=== PATIENT | female | born 1965 | race Two or more races ===

== ENCOUNTER 2020-06-16 15:02 | Outpatient (REF) | payer MEDICAID, SELFPAY ==
[2020-06-16 15:51] LABS: MANUAL DIFF FLAG NO
[2020-06-16 16:00] LABS: Basophils Percent Auto 0.3 % (0-2); Eosinophils Absolute Auto 0.1 X10*3/uL (0.0-0.4); Eosinophils Percent Auto 0.8 % (0-4); Hematocrit 35.5 % (37-47); Hemoglobin 11.1 g/dl (12.0-16.0); Imm Gran Abs Auto 0.07 X10*3/uL (0.00-0.03); Imm Gran Pct Auto 0.7 % (0.0-0.4); Lymphocytes Absolute Auto 2.9 X10*3/uL (1.2-4.9); Lymphocytes Percent Auto 29.7 % (20-40); Mean Corpuscular HGB Conc 31.3 g/dl (31.0-35.0); Mean Corpuscular Hemoglobin 29.7 pg (27.0-33.0); Mean Corpuscular Volume 94.9 fL (80-98); Mean Platelet Volume 11.3 fL (9.4-12.3); Monocytes Absolute Auto 0.8 X10*3/uL (0.1-1.2); Monocytes Percent Auto 7.9 % (2-11); Neut%MD 60.6 %; Neutrophils Absolute Auto 5.9 X10*3/uL (2.0-8.3); Neutrophils Percent Auto 60.6 % (45-73); Platelet Count 214 X10*3/uL (160-400); Red Blood Count 3.74 X10*6/uL (4.20-5.50); Red Cell Distribution Width 14.2 % (11.0-16.0); WBCANC 9.8 X10*3/uL; White Blood Count 9.8 X10*3/uL (4.8-10.8)
== END 2020-06-16 15:03 | disposition home or self-care (01) ==
LOC: HO.LAB 15:02
PROVIDERS: Visit Provider Clinical Nurse Specialist Psychiatric/Mental Health, Adult
DX: Z79.899 Other long term (current) drug therapy (principal)
CPT/HCPCS: 36415; 85025

== ENCOUNTER 2020-06-25 19:41 | Inpatient (IN) | payer MEDICAID, SELFPAY ==
[2020-06-25 20:10] VITALS: BP 147/85; PULSE 98; RESP 18; TEMP 37.3; O2SAT 94; BMI 32.9
[2020-06-25 20:22] VITALS: O2SAT 91
--- NOTE | 2020-06-25 20:59 | ECG_ITS ---
Test Reason : SOB Blood Pressure : / mmHG Vent. Rate : 097 BPM Atrial Rate : 097 BPM P-R Int : 134 ms QRS Dur : 078 ms QT Int : 356 ms P-R-T Axes : 054 028 009 degrees QTc Int : 452 ms Normal sinus rhythm Nonspecific T wave abnormality Borderline ECG No significant changes seen Referred By: Donnie Churchill Electronically Signed By:MANNY GOMES MD
--- NOTE | 2020-06-25 20:59 | XR_ITS ---
EXAMINATION: XR CHEST CLINICAL INFORMATION: Cough COMPARISON: 06/24/2018 TECHNIQUE: Frontal view of the chest was obtained. FINDINGS: The heart size is normal. There may be mild upper zone redistribution but no evidence of gross CHF. There is some patchy density seen in the retrocardiac region which was not present previously. Increased reticulo-nodule densities seen at the right lung base. No pleural effusions are seen XR/XR chest 1V IMPRESSION: Increased opacity in the retrocardiac region consistent with infiltrate/pneumonia
[2020-06-25 21:32] VITALS: BP 174/98; PULSE 105; RESP 18; O2SAT 98
[2020-06-25 21:58] LABS: MANUAL DIFF FLAG NO
[2020-06-25] MEDS: 0.9 % Sodium Chloride 1,000 ML 999 ML IVCONT (22:00)
--- NOTE | 2020-06-25 22:06 | ED_ITS ---
HPI - SOB/Dyspnea General Chief Complaint: Dyspnea Stated Complaint: sob Time Seen by Provider: 06/25/20 20:59 Source: patient Mode of arrival: ambulatory Limitations: no limitations History of Present Illness HPI Narrative: patient has history of asthma / COPD chronic smoker came here for last few days increased shortness of breath patient been using inhaler without any relief when she arrived saturating 91% at room air. Patient other family member were tested COVID -ve 2 weeks ago patient denies any fever co ughing up phlegm which is mucopurulent MD elicited complaint: shortness of breath and cough Pertinent past history: COPD and asthma Onset (ago): day(s) (3-4) Severity: moderate Exacerbating factors: coughing Known history of: COPD and asthma Associated symptoms: cough Treatment prior to arrival: bronchodilator Related Data Home oxygen amount: none Allergies Allergy/AdvReac Type Severity Reaction Status Date / Time aspirin [Aspirin] Allergy Unknown VOMIT Unverified 05/06/20 15:54 diazepam [From Valium] Allergy Unknown UNKNOWN Unverified 05/06/20 15:54 haloperidol [From Haldol] Allergy Unknown UNKN Unverified 05/06/20 15:54 penicillin V Allergy Unknown Verified 09/23/19 00:00 Penicillins Allergy Unknown UNKN Unverified 05/06/20 15:54 risperidone [From Risperdal] Allergy Unknown UNKNOWN Unverified 05/06/20 15:54 trazodone [TRAZODONE] Allergy Unknown NAUSEA & Unverified 05/06/20 15:54 VOMITING From Haldol Allergy Unknown UNKN Uncoded 05/06/20 15:54 hadol Allergy Unknown Uncoded 09/23/19 00:00 Review of Systems Review of Systems: REVIEW OF SYSTEMS: Pertinent positives and negatives are stated above in the history. GEN: no fevers, chills, fatigue HEENT: no nasal congestion, sore throat, ear pain NEURO: no headache, dizziness, focal weakness PULM: per HPI CV: no chest pain, palpitations, LE edema ABD: no abdominal pain, nausea, vomiting, diarrhea : no dysuria, urgency, frequency SKIN: no rash ROS otherwise negative x 10 PMFSH Past Medical History Medical History Asthma Schizophrenia Social History Social History Alcohol intake: never Smoking Status: Current every day smoker Use of substances other than those prescribed or required for medical reasons: No Advance Directives: No Advance Directives Information Provided: No Physical Exam Vital Signs: Vital Signs: Last Vital Signs Temp 98.7 F 06/25/20 23:52 Pulse 94 06/25/20 23:52 Resp 20 06/25/20 23:52 BP 153/63 H 06/25/20 23:52 Pulse Ox 95 06/25/20 23:52 Body Mass Index 32.9 VITAL SIGNS: Reviewed. GENERAL: Well developed, well nourished, in moderate respiratory distress wheezing HEAD: Normocephalic/atraumatic, EYES: PERRLA No pallor/icterus noted OROPHARYNX: Oral mucosa moist no oral lesions NECK: Supple, no adenopathy LUNGS: patient tachypneic wheezing bilaterally no rales auscultated using accessory respiratory muscles CARDIOVASCULAR: Regular rate and rhythm without noted murmurs, no JVD or lower extremity edema. ABDOMEN: Soft, non-tender, non-distended with normal bowel sounds. No rigidity. No guarding. No palpable masses or hernias noted MUSCULOSKELETAL: No tenderness, deformities, EXTREMITIES: No cyanosis or edema. SKIN: no rashes, ulcerations, jaundice, pallor, or petechiae NEUROLOGIC: Alert and oriented x 3. Strength and sensation to light touch were grossly intact normal speech Course Course Course Narrative: patient received continues nebulizing treatment and steroids chest x-ray showed left retrocardiac infiltrate patient is still not feeling good saturating 91-93 while resting in the bed COVID 19 is negative will admit patient for COPD and pneumonia MDM - SOB/Dyspnea Lab Data Result diagrams: 06/25/20 21:46 06/25/20 21:46 Labs: Lab Results 06/25/20 06/25/20 06/25/20 Range/Units 21:46 21:46 21:46 WBC 7.7 (4.8-10.8) X10*3/uL RBC 3.97 L (4.20-5.50) X10*6/uL Hgb 11.7 L (12.0-16.0) g/dl Hct 37.8 (37-47) % MCV 95.2 (80-98) fL MCH 29.5 (27.0-33.0) pg MCHC 31.0 (31.0-35.0) g/dl RDW 14.2 (11.0-16.0) % Plt Count 221 (160-400) X10*3/uL MPV 10.8 (9.4-12.3) fL Immature Gran % (Auto) 0.8 H (0.0-0.4) % Neut % (Auto) 62.7 (45-73) % Lymph % (Auto) 21.7 (20-40) % Power % (Auto) 13.9 H (2-11) % Eos % (Auto) 0.8 (0-4) % Baso % (Auto) 0.1 (0-2) % Lymph # (Auto) 1.7 (1.2-4.9) X10*3/uL Power # (Auto) 1.1 (0.1-1.2) X10*3/uL Eos # (Auto) 0.1 (0.0-0.4) X10*3/uL Baso # (Auto) 0.0 (0.0-0.2) X10*3/uL Abs Immat Gran (auto) 0.06 H (0.00-0.03) X10*3/uL Absolute Neuts (auto) 4.8 (2.0-8.3) X10*3/uL Absolute Nucleated RBC 0.000 (0.0-0.012) X10*3/uL Nucleated RBC % (auto) 0.0 (0.0-0.2) /100WBC PT 12.2 (10.8-13.0) SEC INR 1.0 (0.9-1.1) Sodium 142 (135-145) mmol/L Potassium 4.3 (3.3-5.1) mmol/l Chloride 102 (96-108) mmol/L Carbon Dioxide 34 H (22-29) mmol/L Anion Gap 10 L (12-20) BUN 11 (9-16) mg/dL Creatinine 0.68 (0.5-1.4) mg/dL Estim Creat Clear Calc 93.6 Estimated GFR > 60 Random Glucose 101 (60-115) mg/dL Lactic Acid (0.5-2.0) mmol/L Calcium 8.6 (8.4-10.2) mg/dL Total Bilirubin 0.2 (0.0-1.0) mg/dL Direct Bilirubin < 0.2 (0.0-0.5) mg/dL AST 23 (5-31) U/L ALT 26 (0-31) U/L Alkaline Phosphatase 83 (39-117) U/L Total Protein 7.0 (6.5-8.0) g/dL Albumin 4.1 (3.5-5.0) g/dL Urine Color Urine Appearance Urine pH (5.0-8.0) Ur Specific [place] (1.005-1.025) Urine Protein (NEG-TRACE) MG/DL Urine Glucose (UA) (NEG) MG/DL Urine Ketones (NEG) MG/DL Urine Blood (NEG) Urine Nitrite (NEG) Ur Leukocyte Esterase (NEG) Urine RBC (0) /HPF Urine WBC (0-4) /HPF Ur Squamous Epith Cells /LPF Urine Bacteria /LPF Coronavirus (PCR) (Negative) 06/25/20 06/25/20 06/25/20 Range/Units 21:46 21:46 21:47 WBC (4.8-10.8) X10*3/uL RBC (4.20-5.50) X10*6/uL Hgb (12.0-16.0) g/dl Hct (37-47) % MCV (80-98) fL MCH (27.0-33.0) pg MCHC (31.0-35.0) g/dl RDW (11.0-16.0) % Plt Count (160-400) X10*3/uL MPV (9.4-12.3) fL Immature Gran % (Auto) (0.0-0.4) % Neut % (Auto) (45-73) % Lymph % (Auto) (20-40) % Power % (Auto) (2-11) % Eos % (Auto) (0-4) % Baso % (Auto) (0-2) % Lymph # (Auto) (1.2-4.9) X10*3/uL Power # (Auto) (0.1-1.2) X10*3/uL Eos # (Auto) (0.0-0.4) X10*3/uL Baso # (Auto) (0.0-0.2) X10*3/uL Abs Immat Gran (auto) (0.00-0.03) X10*3/uL Absolute Neuts (auto) (2.0-8.3) X10*3/uL Absolute Nucleated RBC (0.0-0.012) X10*3/uL Nucleated RBC % (auto) (0.0-0.2) /100WBC PT (10.8-13.0) SEC INR (0.9-1.1) Sodium (135-145) mmol/L Potassium (3.3-5.1) mmol/l Chloride (96-108) mmol/L Carbon Dioxide (22-29) mmol/L Anion Gap (12-20) BUN (9-16) mg/dL Creatinine (0.5-1.4) mg/dL Estim Creat Clear Calc Estimated GFR Random Glucose (60-115) mg/dL Lactic Acid 1.0 (0.5-2.0) mmol/L Calcium (8.4-10.2) mg/dL Total Bilirubin (0.0-1.0) mg/dL Direct Bilirubin (0.0-0.5) mg/dL AST (5-31) U/L ALT (0-31) U/L Alkaline Phosphatase (39-117) U/L Total Protein (6.5-8.0) g/dL Albumin (3.5-5.0) g/dL Urine Color YELLOW Urine Appearance CLEAR Urine pH 6.5 (5.0-8.0) Ur Specific [place] 1.015 (1.005-1.025) Urine Protein NEG (NEG-TRACE) MG/DL Urine Glucose (UA) NEG (NEG) MG/DL Urine Ketones NEG (NEG) MG/DL Urine Blood 1+ H (NEG) Urine Nitrite NEG (NEG) Ur Leukocyte Esterase NEG (NEG) Urine RBC 5-9 H (0) /HPF Urine WBC 0-2 (0-4) /HPF Ur Squamous Epith Cells 1+ /LPF Urine Bacteria NONE /LPF Coronavirus (PCR) NEGATIVE (Negative) Imaging Data Chest x-ray: Radiologist's impression: XR/XR chest 1V IMPRESSION: Increased opacity in the retrocardiac region consistent with infiltrate/pneumonia
[2020-06-25 22:07] LABS: Glucose Urine UA NEG (NEG); Leukocyte Esterase Urine NEG (NEG); Nitrite Urine NEG (NEG); PH 6.5 (5.0-8.0); Specific Gravity - Urine 1.015 (1.005-1.025); Urine Blood 1+ (NEG); Urine Ketones NEG (NEG); Urine Protein NEG (NEG-TRACE)
[2020-06-25 22:09] LABS: Basophils Percent Auto 0.1 % (0-2); Eosinophils Absolute Auto 0.1 X10*3/uL (0.0-0.4); Eosinophils Percent Auto 0.8 % (0-4); Hematocrit 37.8 % (37-47); Hemoglobin 11.7 g/dl (12.0-16.0); Imm Gran Abs Auto 0.06 X10*3/uL (0.00-0.03); Imm Gran Pct Auto 0.8 % (0.0-0.4); Lymphocytes Absolute Auto 1.7 X10*3/uL (1.2-4.9); Lymphocytes Percent Auto 21.7 % (20-40); Mean Corpuscular Hemoglobin 29.5 pg (27.0-33.0); Mean Corpuscular Volume 95.2 fL (80-98); Mean Platelet Volume 10.8 fL (9.4-12.3); Monocytes Absolute Auto 1.1 X10*3/uL (0.1-1.2); Monocytes Percent Auto 13.9 % (2-11); Neutrophils Absolute Auto 4.8 X10*3/uL (2.0-8.3); Neutrophils Percent Auto 62.7 % (45-73); Platelet Count 221 X10*3/uL (160-400); Red Blood Count 3.97 X10*6/uL (4.20-5.50); Red Cell Distribution Width 14.2 % (11.0-16.0); White Blood Count 7.7 X10*3/uL (4.8-10.8)
[2020-06-25 22:12] LABS: Appearance Urine CLEAR; Color Urine YELLOW
[2020-06-25 22:18] LABS: Prothrombin Time 12.2 SEC (10.8-13.0)
[2020-06-25 22:27] LABS: Alanine Aminotransferase 26 U/L (0-31); Albumin Level 4.1 g/dL (3.5-5.0); Alkaline Phosphatase 83 U/L (39-117); Anion Gap 10 (12-20); Aspartate Amino Transferase 23 U/L (5-31); Blood Urea Nitrogen 11 mg/dL (9-16); Calcium 8.6 mg/dL (8.4-10.2); Carbon Dioxide 34 mmol/L (22-29); Chloride 102 mmol/L (96-108); Creatinine Clr Calc Pharmacy 93.6; Estimated Glomerular Filt Rate > 60; Glucose Random 101 mg/dL (60-115); Potassium 4.3 mmol/l (3.3-5.1); Sodium 142 mmol/L (135-145)
[2020-06-25 22:41] LABS: Bilirubin Direct < 0.2 mg/dL (0.0-0.5); Bilirubin Total 0.2 mg/dL (0.0-1.0)
[2020-06-25 22:51] VITALS: BP 148/70; PULSE 93; RESP 26; TEMP 37.1; O2SAT 100
[2020-06-25 22:54] LABS: Squamous Epithelial Cell Urine 1+ /LPF; WBC Urine 0-2 /HPF (0-4)
[2020-06-25] MEDS: Albuterol/Iprat 2.5/0.5MG 3 ML AMPUL.NEB INHALE (22:57)
[2020-06-25 22:58] LABS: SARS COV2 PCR INHOUSE NEGATIVE (Negative)
[2020-06-25] MEDS: Albuterol Sulfate (0.083%) 2.5 MG/3 ML VIAL.NEB 5 MG INHALE (22:58)
[2020-06-25] MEDS: cefTRIAXone sodium 1 GM in 0.9 % Sodium Chloride 50 ML IV (23:30)
[2020-06-25] MEDS: dexAMETHasone sod phosphate 4 MG/ML VIAL 10 MG IVPUSH (23:31)
--- NOTE | 2020-06-25 23:46 | PC.NURSE ---
pt has been up to br frequently with minimal sob. mother on phone with update mom states she feels it would be better to have patient stay overnight.
[2020-06-25 23:52] VITALS: BP 153/63; PULSE 94; RESP 20; TEMP 37.1; O2SAT 95
[2020-06-26] VITALS (13 sets, daily range): BP systolic 145–180; BP diastolic 71–91; PULSE 91–109; RESP 16–22; TEMP 36.2–37.3; O2SAT 91–97
[2020-06-26] MEDS: Azithromycin 500 MG in 0.9 % Sodium Chloride 250 ML 125 MG IV (00:58)
--- NOTE | 2020-06-26 02:35 | P.HPHOSP_ITS ---
History of Present Illness Date of Service: 06/26/20 Chief Complaint: SOB 54 y/o female with significant PMHX of asthma/COPD who presented from home due to SOB. Patient reports that for the past 2 days has been having worsening difficulty breathing which is worse on ambulation. Patient reports associated dry cough but no fever/chills, nausea, vomiting, diarrhea or constipation. Denies any sick contacts or recent travel. States that has been using her home inhaler without any symtomatic relief. In the ER patient was evaluated and found to be hypoxic 91% on room air and patient having trouble bleeding. Was given multiple doses of nebulizer treatment as well as steroid therapy without significant relief. CXR shows left retrocardiac infiltrates. Patient was given one dose of Rocephin and Zithromax and decision for admission was given. Covid test negative. Patient was seen and evaluated in the ED, laying down in bed in mild resp distress. ROS as above otherwise negative. Physical exam positive for distended abdomen but soft on palpation. obesity. rest of the exam unremarkable. PMHX: 1. Asthma. 2. Osteoarthritis. 3. Hypertension. 4. PTSD. 5. Schizophrenia. 6. GERD. 7. Impaired glucose tolerance test 8. Obesity PSx: none Toxic habits: Smoker in the past, no hx of alcohol abuse or IVDA Review of Systems Cardiovascular: Cardiovascular: Reports dyspnea Respiratory: Respiratory: Reports cough, Reports pain on inspiration and Reports dyspnea PMFSH Medical History (Updated 06/26/20 @ 03:34 by China Leiva MD) Asthma Schizophrenia Functional capacity: independent ambulation Social History Alcohol intake: never Smoking Status: Current every day smoker Use of substances other than those prescribed or required for medical reasons: No Advance Directives: No Advance Directives Information Provided: No Meds Allergies Allergy/AdvReac Type Severity Reaction Status Date / Time aspirin [Aspirin] Allergy Unknown VOMIT Unverified 05/06/20 15:54 diazepam [From Valium] Allergy Unknown UNKNOWN Unverified 05/06/20 15:54 haloperidol [From Haldol] Allergy Unknown UNKN Unverified 05/06/20 15:54 penicillin V Allergy Unknown Verified 09/23/19 00:00 Penicillins Allergy Unknown UNKN Unverified 05/06/20 15:54 risperidone [From Risperdal] Allergy Unknown UNKNOWN Unverified 05/06/20 15:54 trazodone [TRAZODONE] Allergy Unknown NAUSEA & Unverified 05/06/20 15:54 VOMITING From Haldol Allergy Unknown UNKN Uncoded 05/06/20 15:54 hadol Allergy Unknown Uncoded 09/23/19 00:00 Home Medications Medication Instructions Recorded Confirmed Type Depakote 06/26/20 History Klonopin 06/26/20 History Memory Pill 06/26/20 History atorvastatin 06/26/20 History tramadol 06/26/20 History trazodone 06/26/20 History Physical Exam Vital Signs and Narrative: Vital Signs: Last Vital Signs Temp 99.1 F 06/26/20 01:55 Pulse 104 H 06/26/20 01:55 Resp 16 06/26/20 01:55 BP 177/77 H 06/26/20 01:55 Pulse Ox 95 06/26/20 01:55 Body Mass Index 32.9 Const: General: cooperative, comfortable and other (mild distress ) Orientation/consciousness: patient oriented x3 HENMT: Head: Yes normal to inspection Eyes: General: appearance normal, both eyes and all related structures Neck: Yes normal visual inspection Chest: Chest palpation & inspection: normal inspection of the chest Resp: Effort & Inspection: labored and symmetric chest movement Cardio: Jugular venous distension: no JVD Rate: tachycardic Rhythm: regular rhythm Heart sounds: S1 normal heart sound present and S2 normal heart sound present GI: Inspection: Yes distended Skin: General skin exam: no rashes or lesions noted Neuro: General: patient oriented x3 Motor exam (neuro): 5/5 motor strength present throughout Extrem: General: Yes normal to inspection Psych: Appearance: grossly normal Affect: normal affect Results Labs CBC and Chem 7: 06/25/20 21:46 06/25/20 21:46 Labs: Laboratory Results - last 24 hr 06/25/20 06/25/20 06/25/20 21:46 21:46 21:46 MCV 95.2 MCH 29.5 MCHC 31.0 RDW 14.2 Plt Count 221 MPV 10.8 Immature Gran % (Auto) 0.8 H Neut % (Auto) 62.7 Lymph % (Auto) 21.7 [place] % (Auto) 13.9 H Eos % (Auto) 0.8 Baso % (Auto) 0.1 Lymph # (Auto) 1.7 [place] # (Auto) 1.1 Eos # (Auto) 0.1 Baso # (Auto) 0.0 Abs Immat Gran (auto) 0.06 H Absolute Neuts (auto) 4.8 Absolute Nucleated RBC 0.000 Nucleated RBC % (auto) 0.0 PT 12.2 INR 1.0 Anion Gap 10 L Estim Creat Clear Calc 93.6 Estimated GFR > 60 Random Glucose 101 Lactic Acid Calcium 8.6 Total Bilirubin 0.2 Direct Bilirubin < 0.2 AST 23 ALT 26 Alkaline Phosphatase 83 Total Protein 7.0 Albumin 4.1 Urine Color Urine Appearance Urine pH Ur Specific [place] Urine Protein Urine Glucose (UA) Urine Ketones Urine Blood Urine Nitrite Ur Leukocyte Esterase Urine RBC Urine WBC Ur Squamous Epith Cells Urine Bacteria Coronavirus (PCR) 06/25/20 06/25/20 06/25/20 21:46 21:46 21:47 MCV MCH MCHC RDW Plt Count MPV Immature Gran % (Auto) Neut % (Auto) Lymph % (Auto) [place] % (Auto) Eos % (Auto) Baso % (Auto) Lymph # (Auto) [place] # (Auto) Eos # (Auto) Baso # (Auto) Abs Immat Gran (auto) Absolute Neuts (auto) Absolute Nucleated RBC Nucleated RBC % (auto) PT INR Anion Gap Estim Creat Clear Calc Estimated GFR Random Glucose Lactic Acid 1.0 Calcium Total Bilirubin Direct Bilirubin AST ALT Alkaline Phosphatase Total Protein Albumin Urine Color YELLOW Urine Appearance CLEAR Urine pH 6.5 Ur Specific [place] 1.015 Urine Protein NEG Urine Glucose (UA) NEG Urine Ketones NEG Urine Blood 1+ H Urine Nitrite NEG Ur Leukocyte Esterase NEG Urine RBC 5-9 H Urine WBC 0-2 Ur Squamous Epith Cells 1+ Urine Bacteria NONE Coronavirus (PCR) NEGATIVE Imaging Radiologist's Impressions: Impressions Chest X-Ray 06/25/20 20:59 IMPRESSION: Increased opacity in the retrocardiac region consistent with infiltrate/pneumonia Assessment and Plan (1) Acute exacerbation of chronic obstructive airways disease: Status: Acute S/p multiple updraft, IV steroid and IV antbx in the ED Continue with updraft therapy continue with solumedrol as ordered continue with IV antbx as ordered follow up Bcx taper O2 requirements as tolerated Infectious disease consult in the am Medication reconciliation not done per ED as patient does not recall the doses. To be confirmed with pharmacy in the am. (2) Community acquired pneumonia: Qualifiers: Laterality: left Lung location: lower lobe of lung Qualified Code(s): J18.9 - Pneumonia, unspecified organism Status: Acute as above (3) Schizophrenia: Status: Acute (4) Hyperlipidemia: Status: Acute continue with statin home dose
[2020-06-26 03:35] LABS: Pt Ventilation O2% ROOM AIR; pH ABG 7.38 (7.35-7.45)
[2020-06-26 03:36] LABS: ABG PCO2 46 mmhg (32-45); Base Excess ABG 0.7; HCO3 ABG 26 mmol/l (22-26); Oxygen Saturation ABG 92.2 %; PO2 ABG 65 mmhg (83-108)
--- NOTE | 2020-06-26 05:45 | PC.NURSE ---
ATTTEMPED T O CALL REPORT. NO ANSWER
[2020-06-26 07:08] LABS: MANUAL DIFF FLAG NO
[2020-06-26 07:15] LABS: Basophils Percent Auto 0.2 % (0-2); Hematocrit 37.3 % (37-47); Hemoglobin 11.8 g/dl (12.0-16.0); Imm Gran Abs Auto 0.08 X10*3/uL (0.00-0.03); Imm Gran Pct Auto 0.9 % (0.0-0.4); Lymphocytes Absolute Auto 1.1 X10*3/uL (1.2-4.9); Lymphocytes Percent Auto 11.6 % (20-40); Mean Corpuscular HGB Conc 31.6 g/dl (31.0-35.0); Mean Corpuscular Hemoglobin 29.6 pg (27.0-33.0); Mean Corpuscular Volume 93.7 fL (80-98); Mean Platelet Volume 11.7 fL (9.4-12.3); Monocytes Absolute Auto 0.3 X10*3/uL (0.1-1.2); Monocytes Percent Auto 3.3 % (2-11); Neutrophils Absolute Auto 7.7 X10*3/uL (2.0-8.3); Platelet Count 252 X10*3/uL (160-400); Red Blood Count 3.98 X10*6/uL (4.20-5.50); Red Cell Distribution Width 14.2 % (11.0-16.0); White Blood Count 9.1 X10*3/uL (4.8-10.8)
[2020-06-26] MEDS: Heparin Sodium,Porcine 5,000 UNIT/ML VIAL 5000 UNIT SUBCUT ×3 (07:46→21:10)
[2020-06-26] MEDS: Doxycycline Hyclate 100 MG in 0.9 % Sodium Chloride 250 ML 166.67 MG IV (07:47)
[2020-06-26] MEDS: 0.9 % Sodium Chloride Flush 3 ML SYRINGE IVFLUSH ×2 (07:49→16:00)
[2020-06-26 08:08] LABS: Anion Gap 15 (12-20); Blood Urea Nitrogen 10 mg/dL (9-16); Calcium 8.5 mg/dL (8.4-10.2); Carbon Dioxide 26 mmol/L (22-29); Chloride 102 mmol/L (96-108); Creatinine Clr Calc Pharmacy 104.4; Estimated Glomerular Filt Rate > 60; Glucose Random 138 mg/dL (60-115); Potassium 4.4 mmol/l (3.3-5.1); Sodium 139 mmol/L (135-145)
--- NOTE | 2020-06-26 09:32 | P.PNIM_ITS ---
Subjective Subjective Date of Service: 06/26/20 Interval History: seen and examined reports sob and cough (appears clear from what she shows me) poor historian even with Japanese speaking [employer] bedside is able to tell me that she has a history of schizophrenia Review of Systems General - no fevers or chills Cardiovascular - no chest pain Respiratory - no shortness of breath or cough Abdominal- no abdominal pain, nausea, vomiting, diarrhea Physical Exam Vital Signs: Vital Signs: Last Vital Signs Temp 97.3 F 06/26/20 08:00 Pulse 96 06/26/20 08:00 Resp 19 06/26/20 08:00 BP 149/71 H 06/26/20 08:00 Pulse Ox 97 06/26/20 08:00 Body Mass Index 32.9 General - no acute distress, appears comfortable Cardiovascular - regular rate and rhythm, S1-S2 Lungs - rhonchi, no distress Abdomen - soft, nontender, no rebound regarding Extremities - no edema bilaterally Neuro - awake and alert, no focal deficits Objective Data Current Medications Generic Name Dose Route Start Last Admin Trade Name Maday PRN Reason Stop Dose Admin Acetaminophen 650 mg 06/26/20 08:39 Acetaminophen 325 Mg Tablet PO Q6H PRN Pain and Fever Albuterol/Ipratropium 3 ml 06/26/20 12:00 Albuterol/Iprat 2.5/0.5mg 3 Ml Ampul.Neb INHALE RQ4H WHILE AWAKE [facility] Heparin Sodium (Porcine) 5,000 unit 06/26/20 06:00 06/26/20 07:46 Heparin Sodium,Porcine 5,000 Unit/Ml Vial SUBCUT 5,000 unit Q8H [facility] Administration Doxycycline Hyclate 100 mg/ 250 mls @ 166.67 mls/hr 06/26/20 06:00 06/26/20 09:20 Sodium Chloride IV Infused Q12H LAXMI Infusion Methylprednisolone Sodium Succinate 40 mg 06/26/20 20:00 Methylprednisolone Sod Succ/Pf 40 Mg/Ml Vial IVPUSH Q12H [facility] Pharmacy Consult 1 each 06/26/20 08:38 Consult Rx Perform Med Rec MISCELLANE ONCE PRN Consult order Sodium Chloride 3 ml 06/26/20 08:00 06/26/20 07:49 0.9 % Sodium Chloride Flush 3 Ml Syringe IVFLUSH 3 ml QSHIFT [facility] Administration Labs CBC & Chem 7: 06/26/20 06:46 06/26/20 06:46 Assessment and Plan (1) Acute exacerbation of chronic obstructive airways disease: Status: Acute (2) Community acquired pneumonia: Status: Acute Assessment and Plan: This is a 54 yo F with a PMH of christian/? COPD, OA, HTN, PTSD, Schizophrenia, GERD who is an active smoker and presents to the hospital with respiratory complaints. Her ED work up consistant with COPD/Asthma, likely 2/2 to CAP. 1. COPD / Asthma excerabation likely secondary to CAP rocephin/doxy f/u cultures solumedrol bid scheduled updrafts use o2 if needed, goal 92 (no documented hypoxia as of yet) 2. Schizophrenia continue home meds once confirmed staff weapons officer to call patients pharmacy 3. Chronic pain tramamdol PRN 4. Anxiety klonipin once dose confirmed 5. Hyperglycemia check a1c (previously documented that she may have it??) Full Code DVT pptx, subcut. heparin
[2020-06-26 10:12] LABS: Estimated Average Glucose 120 mg/dL; Hemoglobin A1c % 5.8 %
[2020-06-26] MEDS: Flu Vacc QS2020-21(6mos up)/PF 0.5 ML SYRINGE IM (11:02)
[2020-06-26] MEDS: Albuterol/Iprat 2.5/0.5MG 3 ML AMPUL.NEB INHALE ×3 (11:03→20:36)
[2020-06-26] MEDS: Acetaminophen 325 MG TABLET 650 MG PO ×2 (11:10→17:30)
[2020-06-26] MEDS: clonazePAM 0.5 MG TABLET PO (14:34)
[2020-06-26] MEDS: cloZAPine 25 MG TABLET 50 MG PO (14:34)
--- NOTE | 2020-06-26 15:50 | MHC.CM.PN ---
CM met with pt with the assistance of a student life dean. Pt reports she lives with Lanny Soto and her . Mr and Mrs Soto are part of an adult foster program and Iris is pts primary career development associate. CM contacted Lanny Soto ([phone])who reports the pt has lived with her and her for 19 years. She reports the pt was part of a mental health program at [facility] where she would go daily to get her psych meds, however [facility] weekly to do pts med box. Iris reports she is not the pts guardian and pt is able to make her own decisions including medical ones. Pts current DC plan is to return to her caregivers home and resume [facility] community support Iris will provide transportation for pt at [place]
[2020-06-26] MEDS: Doxycycline Hyclate 100 MG in 0.9 % Sodium Chloride 250 ML 166 MG IV (17:40)
[2020-06-26] MEDS: lisinopriL 10 MG TABLET PO (21:10)
[2020-06-26] MEDS: traMADoL HCL 50 MG TABLET PO (21:10)
[2020-06-26] MEDS: clonazePAM 1 MG TABLET PO (21:11)
[2020-06-26] MEDS: Divalproex Sodium ER 500 MG TAB.ER.24H 1500 MG PO (21:11)
[2020-06-26] MEDS: Docusate Sodium 100 MG CAPSULE PO (21:11)
[2020-06-26] MEDS: cloZAPine 100 MG TABLET 300 MG PO (21:11)
[2020-06-26] MEDS: Montelukast Sodium 10 MG TABLET PO (21:11)
[2020-06-26] MEDS: cefTRIAXone sodium 1 GM in 0.9 % Sodium Chloride 50 ML IV (22:10)
[2020-06-27] VITALS (7 sets, daily range): BP systolic 129–150; BP diastolic 63–81; PULSE 77–99; RESP 16–20; TEMP 35.9–36.7; O2SAT 92–95
[2020-06-27] MEDS: 0.9 % Sodium Chloride Flush 3 ML SYRINGE IVFLUSH ×4 (00:14→22:03)
[2020-06-27] MEDS: Doxycycline Hyclate 100 MG in 0.9 % Sodium Chloride 250 ML 166 MG IV (06:35)
[2020-06-27] MEDS: Omeprazole 20 MG CAPSULE.DR PO (06:35)
[2020-06-27] MEDS: Heparin Sodium,Porcine 5,000 UNIT/ML VIAL 5000 UNIT SUBCUT ×3 (06:36→22:03)
[2020-06-27] MEDS: cloZAPine 25 MG TABLET 50 MG PO (08:20)
[2020-06-27] MEDS: clonazePAM 0.5 MG TABLET PO (08:20)
[2020-06-27] MEDS: Docusate Sodium 100 MG CAPSULE PO ×2 (08:20→20:51)
[2020-06-27] MEDS: FLUoxetine HCl 20 MG CAPSULE PO (08:20)
[2020-06-27] MEDS: Nicotine 21 MG PATCH.TD24 TRANSDERMA (08:20)
[2020-06-27] MEDS: Albuterol/Iprat 2.5/0.5MG 3 ML AMPUL.NEB INHALE ×2 (11:31→19:52)
--- NOTE | 2020-06-27 14:12 | HO.PM.IMPN ---
Subjective Subjective Interval History: seen and examined slight improvement in her sob Review of Systems General - no fevers or chills Cardiovascular - no chest pain Respiratory - +sob and cough -- improved Abdominal- no abdominal pain, nausea, vomiting, diarrhea Physical Exam Vital Signs: Vital Signs: Last Vital Signs Temp 98.0 F 06/27/20 12:00 Pulse 83 06/27/20 12:00 Resp 20 06/27/20 12:00 BP 129/68 06/27/20 12:00 Pulse Ox 95 06/27/20 12:00 Body Mass Index 32.9 General - no acute distress, appears comfortable Cardiovascular - regular rate and rhythm, S1-S2 Lungs - improving lung sounds Abdomen - soft, nontender, no rebound regarding Extremities - no edema bilaterally Neuro - awake and alert, no focal deficits Objective Data Current Medications Generic Name Dose Route Start Last Admin Trade Name Freq PRN Reason Stop Dose Admin Acetaminophen 650 mg 06/26/20 08:39 06/26/20 17:30 Acetaminophen 325 Mg Tablet PO 650 mg Q6H PRN Administration Pain and Fever Albuterol/Ipratropium 3 ml 06/26/20 12:00 06/27/20 11:31 Albuterol/Iprat 2.5/0.5mg 3 Ml Ampul.Neb INHALE 3 ml RQ4H WHILE AWAKE LAXMI Administration Clonazepam 0.5 mg 06/26/20 14:00 06/27/20 08:20 Clonazepam 0.5 Mg Tablet PO 0.5 mg DAILY LAXMI Administration Clonazepam 1 mg 06/26/20 21:00 06/26/20 21:11 Clonazepam 1 Mg Tablet PO 1 mg BEDTIME LAXMI Administration Clozapine 300 mg 06/26/20 21:00 06/26/20 21:11 Clozapine 100 Mg Tablet PO 300 mg BEDTIME LAXMI Administration Clozapine 50 mg 06/26/20 14:00 06/27/20 08:20 Clozapine 25 Mg Tablet PO 50 mg DAILY LAXMI Administration Divalproex Sodium 1,500 mg 06/26/20 21:00 06/26/20 21:11 Divalproex Sodium Er 500 Mg Tab.Er.24h PO 1,500 mg BEDTIME LAXMI Administration Docusate Sodium 100 mg 06/26/20 21:00 06/27/20 08:20 Docusate Sodium 100 Mg Capsule PO 100 mg BID LAXMI Administration Fluoxetine HCl 20 mg 06/27/20 09:00 06/27/20 08:20 Fluoxetine Hcl 20 Mg Capsule PO 20 mg DAILY LAXMI Administration Heparin Sodium (Porcine) 5,000 unit 06/26/20 06:00 06/27/20 13:50 Heparin Sodium,Porcine 5,000 Unit/Ml Vial SUBCUT 5,000 unit Q8H LAXMI Administration Doxycycline Hyclate 100 mg/ 250 mls @ 166.67 mls/hr 06/26/20 06:00 06/27/20 08:18 Sodium Chloride IV Infused Q12H LAXMI Infusion Ceftriaxone Sodium 1 gm/ 50 mls @ 100 mls/hr 06/26/20 22:00 06/26/20 22:59 Sodium Chloride IV Infused Q24H LAXMI Infusion Lactulose 10 gm 06/26/20 13:55 Lactulose 20 Gm/30 Ml Solution PO DAILY PRN Constipation Lisinopril 10 mg 06/26/20 21:00 06/26/20 21:10 Lisinopril 10 Mg Tablet PO 10 mg BEDTIME LAXMI Administration Protocol Methylprednisolone Sodium Succinate 40 mg 06/26/20 20:00 06/27/20 08:19 Methylprednisolone Sod Succ/Pf 40 Mg/Ml Vial IVPUSH 40 mg Q12H LAXMI Administration Montelukast Sodium 10 mg 06/26/20 21:00 06/26/20 21:11 Montelukast Sodium 10 Mg Tablet PO 10 mg BEDTIME LAXMI Administration Nicotine 21 mg 06/27/20 09:00 06/27/20 08:20 Nicotine 21 Mg Patch.Td24 TRANSDERMA 21 mg DAILY LAXMI Administration Omeprazole 20 mg 06/27/20 06:30 06/27/20 06:35 Omeprazole 20 Mg Capsule. PO 20 mg DAILY@0630 [facility] Administration Pharmacy Consult 1 each 06/26/20 08:38 Consult Rx Perform Med Rec MISCELLANE ONCE PRN Consult order Polyethylene Glycol 17 gm 06/26/20 13:55 Polyethylene Glycol 3350 17 Gm Powd.Pack PO DAILY PRN Constipation Sodium Chloride 3 ml 06/26/20 08:00 06/27/20 08:20 0.9 % Sodium Chloride Flush 3 Ml Syringe IVFLUSH 3 ml QSHIFT LAXMI Administration Tramadol HCl 50 mg 06/26/20 09:40 06/26/20 21:10 Tramadol Hcl 50 Mg Tablet PO 50 mg BID PRN Administration Pain, Severe (Pain Scale 7-10) Labs CBC & Chem 7: 06/26/20 06:46 06/26/20 06:46 Microbiology Microbiology Results: Microbiology 06/25/20 22:55 Blood - Venous Blood Culture - Preliminary No growth after 24 hours. 06/25/20 21:47 Blood - Venous Blood Culture - Preliminary No growth after 24 hours. Assessment and Plan (1) Acute exacerbation of chronic obstructive airways disease: Status: Acute (2) Community acquired pneumonia: Status: Acute Assessment and Plan: This is a 54 yo F with a PMH of christian/? COPD, OA, HTN, PTSD, Schizophrenia, GERD who is an active smoker and presents to the hospital with respiratory complaints. Her ED work up consistant with COPD/Asthma, likely 2/2 to CAP. 1. COPD / Asthma excerabation likely secondary to CAP rocephin/doxy, day #2 f/u cultures -negative to date solumedrol bid today, prednisone 40mg starting tomorrow x 5 days scheduled updrafts use o2 if needed, goal 92 (no documented hypoxia as of yet) 2. Schizophrenia continue psych meds 3. Chronic pain tramamdol PRN 4. Anxiety klonopin 5. Hyperglycemia a1c 5.8 likely 2/2 to steriods Full Code DVT pptx, subcut. heparin dispo: anticipate home tomorrow if stable
[2020-06-27] MEDS: Doxycycline Hyclate 100 MG in 0.9 % Sodium Chloride 250 ML 166.67 MG IV (18:13)
[2020-06-27] MEDS: Montelukast Sodium 10 MG TABLET PO (20:51)
[2020-06-27] MEDS: clonazePAM 1 MG TABLET PO (20:51)
[2020-06-27] MEDS: Divalproex Sodium ER 500 MG TAB.ER.24H 1500 MG PO (20:51)
[2020-06-27] MEDS: lisinopriL 10 MG TABLET PO (20:51)
[2020-06-27] MEDS: cloZAPine 100 MG TABLET 300 MG PO (20:52)
[2020-06-27] MEDS: traMADoL HCL 50 MG TABLET PO (20:56)
[2020-06-27] MEDS: cefTRIAXone sodium 1 GM in 0.9 % Sodium Chloride 50 ML IV (22:04)
[2020-06-28] VITALS: BP 138/66; PULSE 91; RESP 16; TEMP 36.4; O2SAT 97
[2020-06-28 03:52] VITALS: BP 148/82; PULSE 79; RESP 16; TEMP 36; O2SAT 94
[2020-06-28] MEDS: Acetaminophen 325 MG TABLET 650 MG PO (04:29)
[2020-06-28 04:33] VITALS: RESP 16
[2020-06-28] MEDS: Doxycycline Hyclate 100 MG in 0.9 % Sodium Chloride 250 ML 167.67 MG IV (06:02)
[2020-06-28] MEDS: Omeprazole 20 MG CAPSULE.DR PO (06:02)
[2020-06-28] MEDS: Heparin Sodium,Porcine 5,000 UNIT/ML VIAL 5000 UNIT SUBCUT (06:02)
[2020-06-28] MEDS: Albuterol/Iprat 2.5/0.5MG 3 ML AMPUL.NEB INHALE ×2 (07:10→11:12)
[2020-06-28 07:33] VITALS: BP 180/100; PULSE 92; RESP 18; TEMP 36.3; O2SAT 95
[2020-06-28] MEDS: 0.9 % Sodium Chloride Flush 3 ML SYRINGE IVFLUSH (08:16)
[2020-06-28] MEDS: clonazePAM 0.5 MG TABLET PO (08:16)
[2020-06-28] MEDS: cloZAPine 25 MG TABLET 50 MG PO (08:17)
[2020-06-28] MEDS: FLUoxetine HCl 20 MG CAPSULE PO (08:17)
[2020-06-28] MEDS: Docusate Sodium 100 MG CAPSULE PO (08:17)
[2020-06-28] MEDS: Nicotine 21 MG PATCH.TD24 TRANSDERMA (08:18)
[2020-06-28] MEDS: traMADoL HCL 50 MG TABLET PO (08:23)
--- NOTE | 2020-06-28 11:37 | MHC.CM.PN ---
PATIENT IS DISCHARGED HOME TODAY. FORGING MACHINE HAND, JOSE ENRIQUE ([phone]) AWARE OF PLAN. PCP IS ANDREZ MOODY MD OF [facility] JOSE ENRIQUE WILL WAIT FOR PATIENT IN FRONT LOBBY AT 14:00. RN AWARE OF PLAN.
[2020-06-28 11:50] VITALS: BP 149/87; PULSE 91; RESP 16; TEMP 36.5; O2SAT 94
--- NOTE | 2020-06-28 12:06 | P.DS_ITS ---
DS: Providers Provider Date of admission: 06/26/20 03:31 Primary care physician: Unknown Physician DS: Diagnosis Discharge Diagnosis (1) Acute exacerbation of chronic obstructive airways disease: Status: Acute (2) Community acquired pneumonia: Status: Acute DS: Summary Hospital Course Hospital Course: Patient was started on IV steriods and scheduled bronchodilators for COPD/Asthma exacerbation. Over the course of her hospitalization, her symptoms improved and her steroids were tapered. She will be discharged home on 5 more days of prednisone and it continue her inhalers / nebulizers as she routinely does. In regards to her CAP, she was treated with IV rocephin/doxy which will be changed to PO ceftin/doxy at the time of discharge. She has been strongly encouraged complete tobacco cessation. Time Spent with Patient Time attestation: Total time spent providing and/or coordinating discharge services: Physical Exam Vital Signs: Vital Signs: Last Vital Signs Temp 97.7 F 06/28/20 11:50 Pulse 91 06/28/20 11:50 Resp 16 06/28/20 11:50 BP 149/87 H 06/28/20 11:50 Pulse Ox 94 06/28/20 11:50 Body Mass Index 32.9 General - no acute distress, appears comfortable Cardiovascular - regular rate and rhythm, S1-S2 Lungs - normal respiratory effort, clear to auscultation bilaterally, no wheezing Abdomen - soft, nontender, no rebound regarding Extremities - no edema bilaterally Neuro - awake and alert, no focal deficits DS: Data Data Completed and Pending Labs on day of discharge: Laboratory Last Values WBC 9.1 X10*3/uL (4.8-10.8) 06/26/20 06:46 RBC 3.98 X10*6/uL (4.20-5.50) L 06/26/20 06:46 Hgb 11.8 g/dl (12.0-16.0) L 06/26/20 06:46 Hct 37.3 % (37-47) 06/26/20 06:46 MCV 93.7 fL (80-98) 06/26/20 06:46 MCH 29.6 pg (27.0-33.0) 06/26/20 06:46 MCHC 31.6 g/dl (31.0-35.0) 06/26/20 06:46 RDW 14.2 % (11.0-16.0) 06/26/20 06:46 Plt Count 252 X10*3/uL (160-400) 06/26/20 06:46 MPV 11.7 fL (9.4-12.3) 06/26/20 06:46 Immature Gran % (Auto) 0.9 % (0.0-0.4) H 06/26/20 06:46 Neut % (Auto) 84.0 % (45-73) H 06/26/20 06:46 Lymph % (Auto) 11.6 % (20-40) L 06/26/20 06:46 [place] % (Auto) 3.3 % (2-11) 06/26/20 06:46 Eos % (Auto) 0.0 % (0-4) 06/26/20 06:46 Baso % (Auto) 0.2 % (0-2) 06/26/20 06:46 Lymph # (Auto) 1.1 X10*3/uL (1.2-4.9) L 06/26/20 06:46 [place] # (Auto) 0.3 X10*3/uL (0.1-1.2) 06/26/20 06:46 Eos # (Auto) 0.0 X10*3/uL (0.0-0.4) 06/26/20 06:46 Baso # (Auto) 0.0 X10*3/uL (0.0-0.2) 06/26/20 06:46 Abs Immat Gran (auto) 0.08 X10*3/uL (0.00-0.03) H 06/26/20 06:46 Absolute Neuts (auto) 7.7 X10*3/uL (2.0-8.3) 06/26/20 06:46 Absolute Nucleated RBC 0.000 X10*3/uL (0.0-0.012) 06/26/20 06:46 Nucleated RBC % (auto) 0.0 /100WBC (0.0-0.2) 06/26/20 06:46 PT 12.2 SEC (10.8-13.0) 06/25/20 21:46 INR 1.0 (0.9-1.1) 06/25/20 21:46 ABG pH 7.38 (7.35-7.45) 06/26/20 03:01 ABG pCO2 46 mmhg (32-45) H 06/26/20 03:01 ABG pO2 65 mmhg (83-108) L 06/26/20 03:01 ABG HCO3 26 mmol/l (22-26) 06/26/20 03:01 ABG O2 Saturation 92.2 % 06/26/20 03:01 ABG Base Excess 0.7 06/26/20 03:01 Oxygen Given ROOM AIR 06/26/20 03:01 Sodium 139 mmol/L (135-145) 06/26/20 06:46 Potassium 4.4 mmol/l (3.3-5.1) 06/26/20 06:46 Chloride 102 mmol/L (96-108) 06/26/20 06:46 Carbon Dioxide 26 mmol/L (22-29) 06/26/20 06:46 Anion Gap 15 (12-20) 06/26/20 06:46 BUN 10 mg/dL (9-16) 06/26/20 06:46 Creatinine 0.61 mg/dL (0.5-1.4) 06/26/20 06:46 Estim Creat Clear Calc 104.4 06/26/20 06:46 Estimated GFR > 60 06/26/20 06:46 Random Glucose 138 mg/dL (60-115) H D 06/26/20 06:46 Estimat Average Glucose 120 mg/dL 06/26/20 06:46 Hemoglobin A1c % 5.8 % 06/26/20 06:46 Lactic Acid 1.0 mmol/L (0.5-2.0) 06/25/20 21:47 Calcium 8.5 mg/dL (8.4-10.2) 06/26/20 06:46 Total Bilirubin 0.2 mg/dL (0.0-1.0) 06/25/20 21:46 Direct Bilirubin < 0.2 mg/dL (0.0-0.5) 06/25/20 21:46 AST 23 U/L (5-31) 06/25/20 21:46 ALT 26 U/L (0-31) 06/25/20 21:46 Alkaline Phosphatase 83 U/L (39-117) 06/25/20 21:46 Total Protein 7.0 g/dL (6.5-8.0) 06/25/20 21:46 Albumin 4.1 g/dL (3.5-5.0) 06/25/20 21:46 Urine Color YELLOW 06/25/20 21:46 Urine Appearance CLEAR 06/25/20 21:46 Urine pH 6.5 (5.0-8.0) 06/25/20 21:46 Ur Specific [place] 1.015 (1.005-1.025) 06/25/20 21:46 Urine Protein NEG MG/DL (NEG-TRACE) 06/25/20 21:46 Urine Glucose (UA) NEG MG/DL (NEG) 06/25/20 21:46 Urine Ketones NEG MG/DL (NEG) 06/25/20 21:46 Urine Blood 1+ (NEG) H 06/25/20 21:46 Urine Nitrite NEG (NEG) 06/25/20 21:46 Ur Leukocyte Esterase NEG (NEG) 06/25/20 21:46 Urine RBC 5-9 /HPF (0) H 06/25/20 21:46 Urine WBC 0-2 /HPF (0-4) 06/25/20 21:46 Ur Squamous Epith Cells 1+ /LPF 06/25/20 21:46 Urine Bacteria NONE /LPF 06/25/20 21:46 Coronavirus (PCR) NEGATIVE (Negative) 06/25/20 21:46 Preliminary micro results at discharge 06/25/20 22:55 Blood Culture - Preliminary Blood - Venous No growth after 48 hours. 06/25/20 21:47 Blood Culture - Preliminary Blood - Venous No growth after 48 hours. Discharge Plan Discharge Patient Disposition: Home Health Service Referrals: Physician,Unknown [Primary Care Provider] - Discharge Medications: New cefuroxime axetil 500 mg tablet 500 mg PO Q12H Qty: 10 RF: 0 doxycycline hyclate 100 mg tablet 100 mg PO BID Qty: 10 RF: 0 prednisone 20 mg tablet 40 mg PO DAILY Qty: 10 RF: 0 Continued polyethylene glycol 3350 17 gram Powder In Packet 17 g PO DAILY PRN (Reason: Constipation) RF: 0 clozapine 100 mg Tablet 300 mg PO BEDTIME RF: 0 montelukast 10 mg Tablet 10 mg PO BEDTIME RF: 0 clozapine 25 mg Tablet 50 mg PO DAILY RF: 0 omeprazole 20 mg Tablet,Delayed Release (Dr/Ec) 20 mg PO DAILY@0630 RF: 0 albuterol sulfate 2.5 mg /3 mL (0.083 %) Solution For Nebulization 2.5 mg INHALATION TID RF: 0 albuterol sulfate [ProAir HFA] 90 mcg/actuation Hfa Aerosol Inhaler 2 puff INHALATION Q4-6H PRN (Reason: Shortness Of Breath) RF: 0 fluconazole 150 mg Tablet 150 mg PO Q7D RF: 0 clonazepam 0.5 mg Tablet 0.5 mg PO DAILY RF: 0 clonazepam 1 mg Tablet 1 mg PO BEDTIME RF: 0 lisinopril 10 mg Tablet 10 mg PO BEDTIME RF: 0 docusate sodium 100 mg Capsule 100 mg PO BID RF: 0 fluoxetine 20 mg Capsule 20 mg PO DAILY RF: 0 Flovent HFA 110 mcg/actuation Hfa Aerosol Inhaler 2 puff INHALATION BID RF: 0 bisacodyl 5 mg Tablet 5 mg PO BEDTIME RF: 0 lactulose [Generlac] 10 gram/15 mL Solution 10 g PO DAILY PRN (Reason: Constipation) RF: 0 divalproex 500 mg Tablet Extended Release 24 Hr 1,500 mg PO BEDTIME RF: 0 nicotine 21 mg/24 hr Patch 24 Hour 1 patch TRANSDERMAL DAILY RF: 0 Discharge Orders: Discharge Order (Routine); Ordered 06/28/20 Ordered By: Raza Leyva Diet: advance to your usual diet Activity on Discharge: As tolerated Visit Report Forms: Patient Portal Discharge page Care Plan Goals: To stay healthy and out of the hospital. Health Concerns: Asthma/COPD Pneumonia Tobacco Use Plan of Treatment: Asthma/COPD - prednisone for 5 days and inhalers Pneumonia - antibiotics for 5 days Tobacco Use - use patch, dont smoke
== END 2020-06-28 14:19 | disposition home health service (06) | DRG 139 ==
LOC: HO.ED 06-26 01:40 → HO.S3 06-26 03:44
PROVIDERS: Admitting Provider Internal Medicine; Emergency Provider Internal Medicine; Visit Provider Family Medicine
DX: J18.9 Pneumonia, unspecified organism (principal); F20.9 Schizophrenia, unspecified; J44.0 Chronic obstructive pulmonary disease with (acute) lower respiratory infection; J44.1 Chronic obstructive pulmonary disease with (acute) exacerbation; J45.901 Unspecified asthma with (acute) exacerbation; K21.9 Gastro-esophageal reflux disease without esophagitis; F17.210 Nicotine dependence, cigarettes, uncomplicated; E66.9 Obesity, unspecified; Z68.32 Body mass index [BMI] 32.0-32.9, adult; E78.5 Hyperlipidemia, unspecified; G89.29 Other chronic pain; Z71.6 Tobacco abuse counseling; Z20.828 Contact with and (suspected) exposure to other viral communicable diseases; Z23 Encounter for immunization; Z88.0 Allergy status to penicillin; Z88.6 Allergy status to analgesic agent; Z79.51 Long term (current) use of inhaled steroids; Z79.899 Other long term (current) drug therapy
CPT/HCPCS: 36415; 71045; 80048; 80076; 81001; 81003; 82803; 83036; 83605; 85025; 85610; 87040; 90686; 93005; 94640; 94644; 96361; 96365; 96367; 96375; 99285; J0456; J0696; J1100; J2920; U0003

== ENCOUNTER 2020-07-02 11:30 | Emergency (ER) | payer MEDICAID, SELFPAY ==
[2020-07-02 11:55] VITALS: BP 146/79; PULSE 100; RESP 19; TEMP 37.1; O2SAT 94; BMI 33.8
--- NOTE | 2020-07-02 12:07 | ED.URI ---
HPI - URI/Sore Throat General Chief Complaint: Weakness Stated Complaint: TIRED LUNG PAIN Time Seen by Provider: 07/02/20 12:06 Source: patient Mode of arrival: ambulatory Limitations: no limitations History of Present Illness HPI Narrative: just seen for CAP and COPD 06/26-06/28 sent out on prednisone and ceftin/doxy, negative COVID swab MD elicited complaint: cough and nasal congestion Pertinent past history: COPD and asthma Onset (ago): day(s) (06/26) Consistency: constant Severity: moderate Able to tolerate fluids by mouth: Yes Exacerbating factors: exertion Relieving factors: nothing Context: recent hospitalization Associated symptoms: fever, chills, myalgias, nasal congestion, cough and shortness of breath Treatments prior to arrival: other (states she is taking steroids and antibiotics as prescribed took all medications today) Related Data Home Medications Medication Instructions Recorded Confirmed Flovent HFA 2 puff INHALATION BID 06/26/20 06/26/20 albuterol sulfate 2.5 mg INHALATION TID 06/26/20 06/26/20 albuterol sulfate [ProAir HFA] 2 puff INHALATION Q4-6H PRN 06/26/20 06/26/20 bisacodyl 5 mg PO BEDTIME 06/26/20 06/26/20 clonazepam 0.5 mg PO DAILY 06/26/20 06/26/20 clonazepam 1 mg PO BEDTIME 06/26/20 06/26/20 clozapine 50 mg PO DAILY 06/26/20 06/26/20 clozapine 300 mg PO BEDTIME 06/26/20 06/26/20 divalproex 1,500 mg PO BEDTIME 06/26/20 06/26/20 docusate sodium 100 mg PO BID 06/26/20 06/26/20 fluconazole 150 mg PO Q7D 06/26/20 06/26/20 fluoxetine 20 mg PO DAILY 06/26/20 06/26/20 lactulose [Generlac] 10 g PO DAILY PRN 06/26/20 06/26/20 lisinopril 10 mg PO BEDTIME 06/26/20 06/26/20 montelukast 10 mg PO BEDTIME 06/26/20 06/26/20 nicotine 1 patch TRANSDERMAL DAILY 06/26/20 06/26/20 omeprazole 20 mg PO DAILY@0630 06/26/20 06/26/20 polyethylene glycol 3350 17 g PO DAILY PRN 06/26/20 06/26/20 Previous Rx's Medication Instructions Recorded cefuroxime axetil 500 mg PO Q12H #10 tab 06/28/20 doxycycline hyclate 100 mg PO BID #10 tab 06/28/20 prednisone 40 mg PO DAILY #10 tab 06/28/20 Allergies Allergy/AdvReac Type Severity Reaction Status Date / Time aspirin [Aspirin] Allergy Unknown VOMIT Verified 06/26/20 12:56 diazepam [From Valium] Allergy Unknown UNKNOWN Verified 06/26/20 12:56 haloperidol [From Haldol] Allergy Unknown UNKN Verified 06/26/20 12:56 penicillin V Allergy Unknown Unknown Verified 06/26/20 12:56 Penicillins Allergy Unknown UNKN Verified 06/26/20 12:56 risperidone [From Risperdal] Allergy Unknown UNKNOWN Verified 06/26/20 12:56 trazodone [TRAZODONE] Allergy Unknown NAUSEA & Verified 06/26/20 12:56 VOMITING From Haldol Allergy Unknown UNKN Uncoded 05/06/20 15:54 hadol Allergy Unknown Unknown Uncoded 06/26/20 12:56 Review of Systems Review of Systems: Constitutional : No Fever, pos Chills ENT/Mouth : No sore throat, No Rhinorrhea, No Swallowing Difficulty Eyes: No Eye Pain, No Swelling, No Redness Cardiovascular : pos Chest Pain, positive SOB, No Orthopnea, no Edema Respiratory : pos Cough, pos Sputum, pos Wheezing, positive dyspnea Gastrointestinal : pos Nausea, No Vomiting, No Diarrhea, No abdominal Pain, No Hematochezia, No Melena Genitourinary : No Dysuria, No Urinary Frequency, No Hematuria Musculoskeletal : No joint pain, No Myalgias Skin : No Skin Lesions, No rash Neuro : No Weakness, No Numbness, No Dizziness, No Headache Psych : No Anxiety/Panic, No Depression Heme/Lymph: No Bruising, No Lymphadenopathy Endocrine : No Polyuria, No Polydipsia All other systems reviewed and are negative [facility] Past Medical History Attestation statement: The following information was validated with the patient. Medical History Asthma Schizophrenia 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 Housing: House Alcohol intake: never Smoking Status: Former smoker Tobacco Type: Cigarette Use of substances other than those prescribed or required for medical reasons: No Any prior treatment program specific to substance use: No Advance Directives: No Advance Directives Information Provided: Yes service: No Current occupational status: disabled Physical Exam Vital Signs: Vital Signs: Last Vital Signs Temp 98.8 F 07/02/20 13:58 Pulse 99 07/02/20 13:58 Resp 18 07/02/20 13:58 BP 121/63 07/02/20 13:58 Pulse Ox 94 07/02/20 11:55 Body Mass Index 33.8 Appearance: Alert. Oriented X3. No acute distress. Eyes: Pupils equal, round and reactive to light. ENT: Pharynx normal. Neck: Normal inspection. Neck supple. CVS: Normal heart rate and rhythm. Pulses normal. Respiratory: No respiratory distress. Breath sounds decreased, end exp wheezes noted faint no tachypnea or retractions Abdomen: Soft and nontender. Skin: Skin warm and dry. Normal skin color. Normal skin turgor. Extremities: No lower extremity edema. No calf ttp Neuro: Oriented X 3. No motor deficit. No sensory deficit. Course Course Course Narrative: lactic acidosis due to albuterol and not infection or severe sepsis, CT chest negative COVID negative, has steroids and antibiotics at home, walking without issue, CT chest negative, lactic acidosis due to albuterol repeat pending 96% on RA lactic acid cleared, no distress, watching TV can be DC home MDM - URI/Sore Throat MDM Narrative Medical decision making narrative: 54 yo female with recent admit and DC for CAP on 06/28, asthma/COPD here with weakness, cough, body aches, feels she is not getting better with PO antibiotics at home, at this time will obtain labs, CT scan for pneumonia/COVID, repeat COVID test, 5mg albuterol neb Lab Data Result diagrams: 07/02/20 13:06 07/02/20 13:06 Labs: Lab Results 07/02/20 07/02/20 07/02/20 Range/Units 13:05 13:05 13:05 WBC (4.8-10.8) X10*3/uL RBC (4.20-5.50) X10*6/uL Hgb (12.0-16.0) g/dl Hct (37-47) % MCV (80-98) fL MCH (27.0-33.0) pg MCHC (31.0-35.0) g/dl RDW (11.0-16.0) % Plt Count (160-400) X10*3/uL MPV (9.4-12.3) fL Immature Gran % (Auto) (0.0-0.4) % Neut % (Auto) (45-73) % Lymph % (Auto) (20-40) % [place] % (Auto) (2-11) % Eos % (Auto) (0-4) % Baso % (Auto) (0-2) % Lymph # (Auto) (1.2-4.9) X10*3/uL [place] # (Auto) (0.1-1.2) X10*3/uL Eos # (Auto) (0.0-0.4) X10*3/uL Baso # (Auto) (0.0-0.2) X10*3/uL Abs Immat Gran (auto) (0.00-0.03) X10*3/uL Absolute Neuts (auto) (2.0-8.3) X10*3/uL Absolute Nucleated RBC (0.0-0.012) X10*3/uL Nucleated RBC % (auto) (0.0-0.2) /100WBC Hold Blue Top SEE NOTE Sodium (135-145) mmol/L Potassium (3.3-5.1) mmol/l Chloride (96-108) mmol/L Carbon Dioxide (22-29) mmol/L Anion Gap (12-20) BUN (9-16) mg/dL Creatinine (0.5-1.4) mg/dL Estim Creat Clear Calc Estimated GFR Random Glucose (60-115) mg/dL Lactic Acid 2.7 H* (0.5-2.0) mmol/L Lactic Acid Fup @ 2Hr Calcium (8.4-10.2) mg/dL Magnesium (1.6-2.6) mg/dL Ferritin (10-250) ng/mL Total Bilirubin (0.0-1.0) mg/dL Direct Bilirubin (0.0-0.5) mg/dL AST (5-31) U/L ALT (0-31) U/L Alkaline Phosphatase (39-117) U/L Lactate Dehydrogenase (122-220) U/L Troponin I High Sens < 3.5 (<3.5-17.0) ng/L Total Protein (6.5-8.0) g/dL Albumin (3.5-5.0) g/dL Lipase (8-78) U/L Coronavirus (PCR) (Negative) Influenza Type A (PCR) (Negative) Influenza Type B (PCR) (Negative) RSV RNA Qual (PCR) (Negative) 07/02/20 07/02/20 07/02/20 Range/Units 13:06 13:06 13:06 WBC 11.5 H (4.8-10.8) X10*3/uL RBC 3.95 L (4.20-5.50) X10*6/uL Hgb 11.6 L (12.0-16.0) g/dl Hct 37.5 (37-47) % MCV 94.9 (80-98) fL MCH 29.4 (27.0-33.0) pg MCHC 30.9 L (31.0-35.0) g/dl RDW 13.9 (11.0-16.0) % Plt Count 217 (160-400) X10*3/uL MPV 11.8 (9.4-12.3) fL Immature Gran % (Auto) 0.7 H (0.0-0.4) % Neut % (Auto) 80.4 H (45-73) % Lymph % (Auto) 14.5 L (20-40) % [place] % (Auto) 4.1 (2-11) % Eos % (Auto) 0.1 (0-4) % Baso % (Auto) 0.2 (0-2) % Lymph # (Auto) 1.7 (1.2-4.9) X10*3/uL [place] # (Auto) 0.5 (0.1-1.2) X10*3/uL Eos # (Auto) 0.0 (0.0-0.4) X10*3/uL Baso # (Auto) 0.0 (0.0-0.2) X10*3/uL Abs Immat Gran (auto) 0.08 H (0.00-0.03) X10*3/uL Absolute Neuts (auto) 9.3 H (2.0-8.3) X10*3/uL Absolute Nucleated RBC 0.000 (0.0-0.012) X10*3/uL Nucleated RBC % (auto) 0.0 (0.0-0.2) /100WBC Hold Blue Top Sodium 139 (135-145) mmol/L Potassium 4.2 (3.3-5.1) mmol/l Chloride 101 (96-108) mmol/L Carbon Dioxide 28 (22-29) mmol/L Anion Gap 14 (12-20) BUN 15 (9-16) mg/dL Creatinine 0.57 (0.5-1.4) mg/dL Estim Creat Clear Calc 113.3 Estimated GFR > 60 Random Glucose 128 H (60-115) mg/dL Lactic Acid (0.5-2.0) mmol/L Lactic Acid Fup @ 2Hr Calcium 8.9 (8.4-10.2) mg/dL Magnesium 1.8 (1.6-2.6) mg/dL Ferritin 13 (10-250) ng/mL Total Bilirubin 0.3 (0.0-1.0) mg/dL Direct Bilirubin < 0.2 (0.0-0.5) mg/dL AST 15 (5-31) U/L ALT 21 (0-31) U/L Alkaline Phosphatase 68 (39-117) U/L Lactate Dehydrogenase 211 (122-220) U/L Troponin I High Sens (<3.5-17.0) ng/L Total Protein 6.6 (6.5-8.0) g/dL Albumin 3.9 (3.5-5.0) g/dL Lipase 10 (8-78) U/L Coronavirus (PCR) NEGATIVE (Negative) Influenza Type A (PCR) NEGATIVE (Negative) Influenza Type B (PCR) NEGATIVE (Negative) RSV RNA Qual (PCR) NEGATIVE (Negative) 07/02/20 07/02/20 Range/Units 15:35 15:48 WBC (4.8-10.8) X10*3/uL RBC (4.20-5.50) X10*6/uL Hgb (12.0-16.0) g/dl Hct (37-47) % MCV (80-98) fL MCH (27.0-33.0) pg MCHC (31.0-35.0) g/dl RDW (11.0-16.0) % Plt Count (160-400) X10*3/uL MPV (9.4-12.3) fL Immature Gran % (Auto) (0.0-0.4) % Neut % (Auto) (45-73) % Lymph % (Auto) (20-40) % [place] % (Auto) (2-11) % Eos % (Auto) (0-4) % Baso % (Auto) (0-2) % Lymph # (Auto) (1.2-4.9) X10*3/uL [place] # (Auto) (0.1-1.2) X10*3/uL Eos # (Auto) (0.0-0.4) X10*3/uL Baso # (Auto) (0.0-0.2) X10*3/uL Abs Immat Gran (auto) (0.00-0.03) X10*3/uL Absolute Neuts (auto) (2.0-8.3) X10*3/uL Absolute Nucleated RBC (0.0-0.012) X10*3/uL Nucleated RBC % (auto) (0.0-0.2) /100WBC Hold Blue Top Sodium (135-145) mmol/L Potassium (3.3-5.1) mmol/l Chloride (96-108) mmol/L Carbon Dioxide (22-29) mmol/L Anion Gap (12-20) BUN (9-16) mg/dL Creatinine (0.5-1.4) mg/dL Estim Creat Clear Calc Estimated GFR Random Glucose (60-115) mg/dL Lactic Acid 1.5 (0.5-2.0) mmol/L Lactic Acid Fup @ 2Hr Cancelled Calcium (8.4-10.2) mg/dL Magnesium (1.6-2.6) mg/dL Ferritin (10-250) ng/mL Total Bilirubin (0.0-1.0) mg/dL Direct Bilirubin (0.0-0.5) mg/dL AST (5-31) U/L ALT (0-31) U/L Alkaline Phosphatase (39-117) U/L Lactate Dehydrogenase (122-220) U/L Troponin I High Sens (<3.5-17.0) ng/L Total Protein (6.5-8.0) g/dL Albumin (3.5-5.0) g/dL Lipase (8-78) U/L Coronavirus (PCR) (Negative) Influenza Type A (PCR) (Negative) Influenza Type B (PCR) (Negative) RSV RNA Qual (PCR) (Negative) ECG Data Attestation: I personally reviewed and interpreted this ECG as follows: ECG interpretation date: 07/02/20 ECG interpretation time: 14:18 Interpretation: Rate: 98 Rhythm: NSR [place]: normal Normal P waves. Normal DANIAL. Normal QRS complex. ST T wave : non specific qTC: normal prior studies: no acute ischemia The study has been interpreted contemporaneously by me. . Discharge Plan Discharge Clinical Impression: Acute exacerbation of chronic obstructive airways disease Patient Disposition: Home, Self-Care Instructions: COPD (Chronic Obstructive Pulmonary Disease) (ED) Additional Instructions: return to ED for any worsening symptoms or concerns CONTINUE ALL OF YOUR MEDICATIONS Prescriptions: No Action polyethylene glycol 3350 17 gram Powder In Packet 17 g PO DAILY PRN (Reason: Constipation) RF: 0 clozapine 100 mg Tablet 300 mg PO BEDTIME RF: 0 montelukast 10 mg Tablet 10 mg PO BEDTIME RF: 0 clozapine 25 mg Tablet 50 mg PO DAILY RF: 0 omeprazole 20 mg Tablet,Delayed Release (Dr/Ec) 20 mg PO DAILY@0630 RF: 0 albuterol sulfate 2.5 mg /3 mL (0.083 %) Solution For Nebulization 2.5 mg INHALATION TID RF: 0 albuterol sulfate [ProAir HFA] 90 mcg/actuation Hfa Aerosol Inhaler 2 puff INHALATION Q4-6H PRN (Reason: Shortness Of Breath) RF: 0 fluconazole 150 mg Tablet 150 mg PO Q7D RF: 0 clonazepam 0.5 mg Tablet 0.5 mg PO DAILY RF: 0 clonazepam 1 mg Tablet 1 mg PO BEDTIME RF: 0 lisinopril 10 mg Tablet 10 mg PO BEDTIME RF: 0 docusate sodium 100 mg Capsule 100 mg PO BID RF: 0 fluoxetine 20 mg Capsule 20 mg PO DAILY RF: 0 Flovent HFA 110 mcg/actuation Hfa Aerosol Inhaler 2 puff INHALATION BID RF: 0 bisacodyl 5 mg Tablet 5 mg PO BEDTIME RF: 0 lactulose [Generlac] 10 gram/15 mL Solution 10 g PO DAILY PRN (Reason: Constipation) RF: 0 divalproex 500 mg Tablet Extended Release 24 Hr 1,500 mg PO BEDTIME RF: 0 nicotine 21 mg/24 hr Patch 24 Hour 1 patch TRANSDERMAL DAILY RF: 0 cefuroxime axetil 500 mg tablet 500 mg PO Q12H Qty: 10 RF: 0 doxycycline hyclate 100 mg tablet 100 mg PO BID Qty: 10 RF: 0 prednisone 20 mg tablet 40 mg PO DAILY Qty: 10 RF: 0 Referrals: Brenna Liriano MD [Primary Care Provider] - 2 days (IF NOT BETTER) Print Language: Divehi
--- NOTE | 2020-07-02 12:24 | CT_ITS ---
EXAMINATION: CT CHEST WITHOUT CONTRAST CLINICAL INFORMATION: Fever and cough COMPARISON: Previous chest x-ray 06/25/2020 and chest CTA February 2014 TECHNIQUE: Multidetector volumetric CT imaging of the chest was done. Axial MIP volume rendering provided. Sagittal and coronal reformatted images were obtained. This CT examination was performed using dose optimization techniques as appropriate, variously including the following: *Automated exposure control *Adjustment of mA and/or kV according to patient size (this includes techniques or standardized protocols for targeted exams where dose is matched to indication/reason for exam; i.e. 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 The lungs are otherwise clear. MEDIASTINUM: The heart is upper normal in size. There is a trace pericardial effusion. There is no coronary artery calcification. The thoracic aorta is normal in caliber. There are no enlarged lymph nodes. The visualized thyroid gland is unremarkable. PLEURA: There is no pleural effusion. No pleural mass or thickening. AXILLA: No lymphadenopathy. UPPER ABDOMEN: Unremarkable. OSSEOUS STRUCTURES: There are mild degenerative changes of the spine. CT/CT chest wo con IMPRESSION: No evidence of pneumonia. Minimal scarring or subsegmental atelectasis at the lung bases. Upper normal-size heart. Trace pericardial effusion.
--- NOTE | 2020-07-02 12:24 | ECG_ITS ---
Test Reason : BACK PAIN Blood Pressure : / mmHG Vent. Rate : 098 BPM Atrial Rate : 098 BPM P-R Int : 134 ms QRS Dur : 074 ms QT Int : 348 ms P-R-T Axes : 058 030 -02 degrees QTc Int : 444 ms Normal sinus rhythm Nonspecific ST and T wave abnormality Abnormal ECG When compared with ECG of 25-JUN-2020 23:46, No significant change was found Referred By: Kierra Dixon Electronically Signed By:MANNY GOMES MD
[2020-07-02] MEDS: Albuterol Sulfate (0.083%) 2.5 MG/3 ML VIAL.NEB 5 MG INHALE (12:58)
[2020-07-02 13:15] LABS: MANUAL DIFF FLAG NO
[2020-07-02 13:17] LABS: Basophils Percent Auto 0.2 % (0-2); Eosinophils Percent Auto 0.1 % (0-4); Hematocrit 37.5 % (37-47); Hemoglobin 11.6 g/dl (12.0-16.0); Imm Gran Abs Auto 0.08 X10*3/uL (0.00-0.03); Imm Gran Pct Auto 0.7 % (0.0-0.4); Lymphocytes Absolute Auto 1.7 X10*3/uL (1.2-4.9); Lymphocytes Percent Auto 14.5 % (20-40); Mean Corpuscular HGB Conc 30.9 g/dl (31.0-35.0); Mean Corpuscular Hemoglobin 29.4 pg (27.0-33.0); Mean Corpuscular Volume 94.9 fL (80-98); Mean Platelet Volume 11.8 fL (9.4-12.3); Monocytes Absolute Auto 0.5 X10*3/uL (0.1-1.2); Monocytes Percent Auto 4.1 % (2-11); Neutrophils Absolute Auto 9.3 X10*3/uL (2.0-8.3); Neutrophils Percent Auto 80.4 % (45-73); Platelet Count 217 X10*3/uL (160-400); Red Blood Count 3.95 X10*6/uL (4.20-5.50); Red Cell Distribution Width 13.9 % (11.0-16.0); White Blood Count 11.5 X10*3/uL (4.8-10.8)
[2020-07-02 13:40] LABS: Lactic Acid 2.7 mmol/L (0.5-2.0)
[2020-07-02 13:43] LABS: Troponin-I High Sensitivity < 3.5 ng/L (<3.5-17.0)
[2020-07-02 13:45] LABS: Alanine Aminotransferase 21 U/L (0-31); Albumin Level 3.9 g/dL (3.5-5.0); Alkaline Phosphatase 68 U/L (39-117); Anion Gap 14 (12-20); Aspartate Amino Transferase 15 U/L (5-31); Bilirubin Direct < 0.2 mg/dL (0.0-0.5); Bilirubin Total 0.3 mg/dL (0.0-1.0); Blood Urea Nitrogen 15 mg/dL (9-16); Calcium 8.9 mg/dL (8.4-10.2); Carbon Dioxide 28 mmol/L (22-29); Chloride 101 mmol/L (96-108); Creatinine Clr Calc Pharmacy 113.3; Estimated Glomerular Filt Rate > 60; Glucose Random 128 mg/dL (60-115); Lactate Dehydrogenase 211 U/L (122-220); Lipase 10 U/L (8-78); Magnesium 1.8 mg/dL (1.6-2.6); Potassium 4.2 mmol/l (3.3-5.1); Sodium 139 mmol/L (135-145); Total Protein 6.6 g/dL (6.5-8.0)
[2020-07-02] MEDS: ondansetron HCL 4 MG/2 ML VIAL IVPUSH (13:52)
[2020-07-02] MEDS: 0.9 % Sodium Chloride 500 ML IV (13:55)
[2020-07-02 13:58] VITALS: BP 121/63; PULSE 99; RESP 18; TEMP 37.1
[2020-07-02 14:01] LABS: Ferritin 13 ng/mL (10-250)
--- NOTE | 2020-07-02 14:01 | PC.NURSE ---
patient a&ox3, pt difficult stick, iv inserted, labs drawn, teletypesetter monitor applied, vss, pt medicated per order, will continue to monitor.
[2020-07-02 14:23] LABS: Influenza A PCR NEGATIVE (Negative); Influenza B PCR NEGATIVE (Negative); Resp Syncy Virus RNA Qual PCR NEGATIVE (Negative); SARS COV2 PCR INHOUSE NEGATIVE (Negative)
[2020-07-02 15:13] LABS: Reflex Lactate? Lactic Acid Added
[2020-07-02 16:00] VITALS: BP 119/62; PULSE 99; RESP 18; TEMP 37.1
[2020-07-02 16:11] LABS: Lactic Acid 1.5 mmol/L (0.5-2.0)
== END 2020-07-02 16:47 | disposition home or self-care (01) ==
PROVIDERS: Emergency Provider Emergency Medicine; PCP Internal Medicine
DX: J44.1 Chronic obstructive pulmonary disease with (acute) exacerbation (principal); R05 Cough; Z87.891 Personal history of nicotine dependence; Z79.899 Other long term (current) drug therapy; Z20.828 Contact with and (suspected) exposure to other viral communicable diseases
CPT/HCPCS: 0241U; 36415; 71250; 80048; 80076; 82728; 83605; 83615; 83690; 83735; 84484; 85025; 87040; 93005; 94640; 96361; 96374; 99284; J2405

== ENCOUNTER 2020-07-14 13:53 | Outpatient (REF) | payer MEDICAID, SELFPAY ==
[2020-07-14 14:13] LABS: MANUAL DIFF FLAG NO
[2020-07-14 14:17] LABS: Basophils Percent Auto 0.3 % (0-2); Eosinophils Absolute Auto 0.1 X10*3/uL (0.0-0.4); Hematocrit 35.9 % (37-47); Hemoglobin 11.3 g/dl (12.0-16.0); Imm Gran Abs Auto 0.07 X10*3/uL (0.00-0.03); Imm Gran Pct Auto 0.9 % (0.0-0.4); Lymphocytes Absolute Auto 2.2 X10*3/uL (1.2-4.9); Lymphocytes Percent Auto 28.1 % (20-40); Mean Corpuscular HGB Conc 31.5 g/dl (31.0-35.0); Mean Corpuscular Volume 95.2 fL (80-98); Mean Platelet Volume 11.7 fL (9.4-12.3); Monocytes Absolute Auto 0.6 X10*3/uL (0.1-1.2); Monocytes Percent Auto 7.8 % (2-11); Neut%MD 61.9 %; Neutrophils Absolute Auto 4.8 X10*3/uL (2.0-8.3); Neutrophils Percent Auto 61.9 % (45-73); Platelet Count 235 X10*3/uL (160-400); Red Blood Count 3.77 X10*6/uL (4.20-5.50); Red Cell Distribution Width 13.7 % (11.0-16.0); WBCANC 7.7 X10*3/uL; White Blood Count 7.7 X10*3/uL (4.8-10.8)
== END 2020-07-14 13:54 | disposition home or self-care (01) ==
LOC: HO.LABR 13:53
PROVIDERS: Visit Provider Clinical Nurse Specialist Psychiatric/Mental Health, Adult
DX: Z79.899 Other long term (current) drug therapy (principal)
CPT/HCPCS: 36415; 85025

== ENCOUNTER 2020-08-09 10:16 | Outpatient (REF) | payer MEDICAID, SELFPAY ==
[2020-08-09 11:39] LABS: Basophils Percent Auto 0.3 % (0-2); Eosinophils Absolute Auto 0.1 X10*3/uL (0.0-0.4); Hemoglobin 11.8 g/dl (12.0-16.0); Imm Gran Abs Auto 0.06 X10*3/uL (0.00-0.03); Imm Gran Pct Auto 0.6 % (0.0-0.4); MANUAL DIFF FLAG SCAN; PLT CLUMP 1; SCAN SMEAR FLAG 1
[2020-08-09 11:42] LABS: Eosinophils Percent Auto 0.8 % (0-4); Mean Corpuscular HGB Conc 31.1 g/dl (31.0-35.0); Mean Corpuscular Hemoglobin 29.1 pg (27.0-33.0); Mean Corpuscular Volume 93.8 fL (80-98); Monocytes Absolute Auto 0.7 X10*3/uL (0.1-1.2); Monocytes Percent Auto 7.5 % (2-11); Neutrophils Absolute Auto 4.8 X10*3/uL (2.0-8.3); Neutrophils Percent Auto 49.8 % (45-73); Red Blood Count 4.05 X10*6/uL (4.20-5.50); White Blood Count 9.7 X10*3/uL (4.8-10.8)
[2020-08-09 12:07] LABS: PLT ABN DIST 1
[2020-08-09 12:40] LABS: SLIDE REVIEW VERIFIED
[2020-08-13 05:58] LABS: Clozapine (Clozaril) 552 mcg/L; Norclozapine 107 mcg/L (25-400)
== END 2020-08-09 10:17 | disposition home or self-care (01) ==
LOC: HO.LABR 10:16
PROVIDERS: Absent Provider Internal Medicine; Visit Provider Clinical Nurse Specialist Psychiatric/Mental Health, Adult
DX: Z79.899 Other long term (current) drug therapy (principal)
CPT/HCPCS: 36415; 80159; 85025

== ENCOUNTER 2020-08-27 11:38 | Outpatient (REF) | payer MEDICAID, SELFPAY | END 2020-08-27 11:39 | disposition home or self-care (01) | LOC: HO.LAB 11:38 | PROVIDERS: Visit Provider Internal Medicine | DX: Z20.822 Contact with and (suspected) exposure to COVID-19 (principal) | CPT/HCPCS: 36415; C9803; U0003 ==

== ENCOUNTER 2020-09-08 10:49 | Outpatient (REF) | payer MEDICAID, SELFPAY ==
[2020-09-08 11:34] LABS: MANUAL DIFF FLAG NO
[2020-09-08 11:46] LABS: Basophils Percent Auto 0.1 % (0-2); Eosinophils Absolute Auto 0.1 X10*3/uL (0.0-0.4); Eosinophils Percent Auto 0.8 % (0-4); Hematocrit 36.3 % (37-47); Hemoglobin 11.2 g/dl (12.0-16.0); Imm Gran Abs Auto 0.05 X10*3/uL (0.00-0.03); Imm Gran Pct Auto 0.5 % (0.0-0.4); Lymphocytes Absolute Auto 3.2 X10*3/uL (1.2-4.9); Lymphocytes Percent Auto 33.4 % (20-40); Mean Corpuscular HGB Conc 30.9 g/dl (31.0-35.0); Mean Corpuscular Hemoglobin 29.1 pg (27.0-33.0); Mean Corpuscular Volume 94.3 fL (80-98); Mean Platelet Volume 11.7 fL (9.4-12.3); Monocytes Percent Auto 10.2 % (2-11); Neutrophils Absolute Auto 5.3 X10*3/uL (2.0-8.3); Platelet Count 241 X10*3/uL (160-400); Red Blood Count 3.85 X10*6/uL (4.20-5.50); Red Cell Distribution Width 14.2 % (11.0-16.0); WBCANC 9.6 X10*3/uL; White Blood Count 9.6 X10*3/uL (4.8-10.8)
== END 2020-09-08 10:50 | disposition home or self-care (01) ==
LOC: HO.LABR 10:49
PROVIDERS: PCP Internal Medicine; Visit Provider Clinical Nurse Specialist Psychiatric/Mental Health, Adult
DX: Z79.899 Other long term (current) drug therapy (principal)
CPT/HCPCS: 36415; 85025; 85048

== ENCOUNTER 2020-09-30 11:26 | Outpatient (REF) | payer MEDICAID, SELFPAY ==
--- NOTE | ~2020-09-30 | MM_ITS ---
EXAMINATION: MM DIAGNOSTIC DIGITAL BREAST TOMOSYNTHESIS, RIGHT CLINICAL INFORMATION: Six-month follow-up right breast density in region of prior MRI biopsy. The lifetime risk of breast cancer based on the Tyrer-Cuzick Model is 13.5%. COMPARISON: Mammography: Mammography of 03/29/2020 and dating back to 06/03/2014 as well as breast MRI of 04/04/2019. TECHNIQUE: Digital breast tomosynthesis is performed in both the craniocaudal and mediolateral oblique views along with computer-aided detection (CAD). Synthesized 2D images are generated from the tomosynthesis. FINDINGS: The breasts are heterogeneously dense, which may obscure small masses (ACR BI-RADS breast composition Category c). Numerous scattered and grouped calcifications are seen throughout the right breast. There is again noted to be a biopsy marker clip within the deep superior aspect laterally within the right breast with some surrounding density with some spiculated margins which may be related to the biopsy. MRI followup had been suggested for followup and as of yet has not been performed. If the MRI findings are stable, then recommend six-month bilateral mammography to return to yearly studies. Results are provided to the patient at time of visit by the technologist. MM/MM tomosynthesis diagnostic RT IMPRESSION: There are no significant changes from prior study. Spiculated density in region of previous MRI biopsy which may be biopsy related, however, developing lesion of other etiology is not excluded and MRI followup is recommended considering the original suspicious appearance of the region biopsied on MRI. ASSESSMENT: BI-RADS 0: Incomplete - Need Additional Imaging Evaluation Recommend breast MRI as previously mentioned. RECOMMENDATION: Breast MRI. This patient's information was entered into a reminder system with a target due date for their next mammogram.
== END 2020-09-30 11:27 | disposition home or self-care (01) ==
LOC: HO.MAMMO 11:26
PROVIDERS: PCP Internal Medicine; Visit Provider Surgery
DX: N63.10 Unspecified lump in the right breast, unspecified quadrant (principal); R92.1 Mammographic calcification found on diagnostic imaging of breast
CPT/HCPCS: 77061; 77065

== ENCOUNTER 2020-10-06 14:44 | Outpatient (REF) | payer MEDICAID, SELFPAY ==
[2020-10-06 15:01] LABS: MANUAL DIFF FLAG NO
[2020-10-06 15:04] LABS: Basophils Percent Auto 0.3 % (0-2); Eosinophils Absolute Auto 0.1 X10*3/uL (0.0-0.4); Eosinophils Percent Auto 1.1 % (0-4); Hematocrit 38.7 % (37-47); Hemoglobin 12.1 g/dl (12.0-16.0); Imm Gran Abs Auto 0.06 X10*3/uL (0.00-0.03); Imm Gran Pct Auto 0.7 % (0.0-0.4); Lymphocytes Absolute Auto 3.4 X10*3/uL (1.2-4.9); Lymphocytes Percent Auto 38.9 % (20-40); Mean Corpuscular HGB Conc 31.3 g/dl (31.0-35.0); Mean Corpuscular Hemoglobin 28.9 pg (27.0-33.0); Mean Corpuscular Volume 92.6 fL (80-98); Mean Platelet Volume 11.2 fL (9.4-12.3); Monocytes Absolute Auto 0.6 X10*3/uL (0.1-1.2); Monocytes Percent Auto 6.6 % (2-11); Neut%MD 52.4 %; Neutrophils Absolute Auto 4.6 X10*3/uL (2.0-8.3); Neutrophils Percent Auto 52.4 % (45-73); Platelet Count 224 X10*3/uL (160-400); Red Blood Count 4.18 X10*6/uL (4.20-5.50); Red Cell Distribution Width 14.2 % (11.0-16.0); WBCANC 8.8 X10*3/uL; White Blood Count 8.8 X10*3/uL (4.8-10.8)
== END 2020-10-06 14:45 | disposition home or self-care (01) ==
LOC: HO.LABR 14:44
PROVIDERS: PCP Internal Medicine; Visit Provider Clinical Nurse Specialist Psychiatric/Mental Health, Adult
DX: Z79.899 Other long term (current) drug therapy (principal)
CPT/HCPCS: 36415; 85025; 85048

== ENCOUNTER 2020-11-03 13:22 | Outpatient (REF) | payer MEDICAID, SELFPAY ==
[2020-11-03 14:19] LABS: MANUAL DIFF FLAG NO
[2020-11-03 14:22] LABS: Basophils Percent Auto 0.2 % (0-2); Eosinophils Absolute Auto 0.1 X10*3/uL (0.0-0.4); Eosinophils Percent Auto 1.1 % (0-4); Hematocrit 37.1 % (37-47); Hemoglobin 11.6 g/dl (12.0-16.0); Imm Gran Pct Auto 1.2 % (0.0-0.4); Lymphocytes Absolute Auto 3.2 X10*3/uL (1.2-4.9); Lymphocytes Percent Auto 37.4 % (20-40); Mean Corpuscular HGB Conc 31.3 g/dl (31.0-35.0); Mean Corpuscular Hemoglobin 29.6 pg (27.0-33.0); Mean Corpuscular Volume 94.6 fL (80-98); Mean Platelet Volume 11.2 fL (9.4-12.3); Monocytes Absolute Auto 0.7 X10*3/uL (0.1-1.2); Monocytes Percent Auto 8.4 % (2-11); Neut%MD 51.7 %; Neutrophils Absolute Auto 4.4 X10*3/uL (2.0-8.3); Neutrophils Percent Auto 51.7 % (45-73); Platelet Count 277 X10*3/uL (160-400); Red Blood Count 3.92 X10*6/uL (4.20-5.50); Red Cell Distribution Width 14.1 % (11.0-16.0); WBCANC 8.4 X10*3/uL; White Blood Count 8.4 X10*3/uL (4.8-10.8)
[2020-11-03 14:43] LABS: Blood Urea Nitrogen 14 mg/dL (9-16); Estimated Glomerular Filt Rate > 60
== END 2020-11-03 13:23 | disposition home or self-care (01) ==
LOC: HO.LABR 13:22
PROVIDERS: Surgery; PCP Internal Medicine; Visit Provider Clinical Nurse Specialist Psychiatric/Mental Health, Adult
DX: N63.10 Unspecified lump in the right breast, unspecified quadrant (principal); Z79.899 Other long term (current) drug therapy
CPT/HCPCS: 36415; 82565; 84520; 85025; 85048

== ENCOUNTER 2020-11-11 18:28 | Emergency (ER) | payer MEDICAID, SELFPAY ==
[2020-11-11 18:53] VITALS: BMI 39.6
[2020-11-11 20:00] VITALS: RESP 16
[2020-11-11 20:20] LABS: Glucose Urine UA NEG (NEG); Leukocyte Esterase Urine NEG (NEG); Nitrite Urine NEG (NEG); Urine Blood TRACE (NEG); Urine Ketones NEG (NEG); Urine Protein NEG (NEG-TRACE)
[2020-11-11 20:21] LABS: Appearance Urine CLEAR; Color Urine YELLOW
[2020-11-11 20:27] LABS: MANUAL DIFF FLAG NO
[2020-11-11 20:28] LABS: Basophils Percent Auto 0.2 % (0-2); Eosinophils Absolute Auto 0.1 X10*3/uL (0.0-0.4); Eosinophils Percent Auto 0.6 % (0-4); Hematocrit 39.4 % (37-47); Hemoglobin 12.5 g/dl (12.0-16.0); Imm Gran Abs Auto 0.04 X10*3/uL (0.00-0.03); Imm Gran Pct Auto 0.5 % (0.0-0.4); Lymphocytes Absolute Auto 2.9 X10*3/uL (1.2-4.9); Lymphocytes Percent Auto 33.4 % (20-40); Mean Corpuscular HGB Conc 31.7 g/dl (31.0-35.0); Mean Corpuscular Hemoglobin 29.5 pg (27.0-33.0); Mean Corpuscular Volume 92.9 fL (80-98); Mean Platelet Volume 11.4 fL (9.4-12.3); Monocytes Absolute Auto 0.7 X10*3/uL (0.1-1.2); Monocytes Percent Auto 7.9 % (2-11); Neutrophils Absolute Auto 4.9 X10*3/uL (2.0-8.3); Neutrophils Percent Auto 57.4 % (45-73); Platelet Count 265 X10*3/uL (160-400); Red Blood Count 4.24 X10*6/uL (4.20-5.50); Red Cell Distribution Width 13.8 % (11.0-16.0); White Blood Count 8.6 X10*3/uL (4.8-10.8)
[2020-11-11 20:33] LABS: Bacteria Urine TRACE /LPF; Squamous Epithelial Cell Urine 3+ /LPF; WBC Urine 0-2 /HPF (0-4)
[2020-11-11 20:40] LABS: Amphetamine Screen Urine Not Detected (Not Detect); Barbiturates, Urine Not Detected (Not Detect); Benzodiazepines Screen Urine Not Detected (Not Detect); Cannabinoid Screen Urine Not Detected (Not Detect); Cocaine Screen Urine Not Detected (Not Detect); Opiate Screen Urine Not Detected (Not Detect); Phencyclidine Screen Urine Not Detected (Not Detect)
[2020-11-11 20:46] LABS: Prothrombin Time 12.2 SEC (10.8-13.0)
[2020-11-11 20:47] LABS: Ethanol < 10 mg/dL
[2020-11-11 20:51] LABS: Alanine Aminotransferase 18 U/L (0-31); Albumin Level 4.4 g/dL (3.5-5.0); Alkaline Phosphatase 76 U/L (39-117); Anion Gap 18 (12-20); Aspartate Amino Transferase 13 U/L (5-31); Bilirubin Direct < 0.2 mg/dL (0.0-0.5); Bilirubin Total 0.2 mg/dL (0.0-1.0); Blood Urea Nitrogen 16 mg/dL (9-16); Calcium 9.7 mg/dL (8.4-10.2); Carbon Dioxide 25 mmol/L (22-29); Chloride 101 mmol/L (96-108); Creatinine Clr Calc Pharmacy 101.5; Estimated Glomerular Filt Rate > 60; Glucose Random 166 mg/dL (60-115); Potassium 4.9 mmol/L (3.3-5.1); Sodium 139 mmol/L (135-145); Total Protein 7.2 g/dL (6.5-8.0)
--- NOTE | 2020-11-11 22:18 | ED.PSYCH ---
HPI - Psych General Chief Complaint: Psychiatric Symptoms Stated Complaint: crisis Time Seen by Provider: 11/11/20 19:33 Source: patient Mode of arrival: ambulatory Limitations: no limitations History of Present Illness HPI Narrative: 55-year-old female with a chronic history of mental illness, anxiety, depression, schizophrenia, hypertension, hyperlipidemia, COPD and arthritis presenting to the ED with complaints of increased anxiety/depression with auditory and visual hallucination telling her to slice her bilateral forearms although patient does not want to do this for the past few days worse today. Patient denies any HI. Reports she is med compliant. Denies any other symptoms complaints or concerns at this time. Denies any EtOH usage or drug usage. Denies recent travel or sick contacts. MD complaint: suicidal ideation, feels depressed, anxiety and hallucinations Onset (ago): day(s) (For the past few days worse today) Duration: constant and getting worse History of same: Yes Relieving factors: none Exacerbating factors: none Associated psychiatric symptoms: depression, suicidal ideation, racing thoughts, auditory hallucinations and visual hallucinations Associated symptoms: denies other symptoms Treatments prior to arrival: none If self harm: has plan (To cut bilateral arms) Related Data Home Medications Medication Instructions Recorded Confirmed Flovent HFA 2 puff INHALATION BID 06/26/20 06/26/20 albuterol sulfate 2.5 mg INHALATION TID 06/26/20 06/26/20 albuterol sulfate [ProAir HFA] 2 puff INHALATION Q4-6H PRN 06/26/20 06/26/20 bisacodyl 5 mg PO BEDTIME 06/26/20 06/26/20 clonazepam 0.5 mg PO DAILY 06/26/20 06/26/20 clonazepam 1 mg PO BEDTIME 06/26/20 06/26/20 clozapine 50 mg PO DAILY 06/26/20 06/26/20 clozapine 300 mg PO BEDTIME 06/26/20 06/26/20 divalproex 1,500 mg PO BEDTIME 06/26/20 06/26/20 docusate sodium 100 mg PO BID 06/26/20 06/26/20 fluconazole 150 mg PO Q7D 06/26/20 06/26/20 fluoxetine 20 mg PO DAILY 06/26/20 06/26/20 lactulose [Generlac] 10 g PO DAILY PRN 06/26/20 06/26/20 lisinopril 10 mg PO BEDTIME 06/26/20 06/26/20 montelukast 10 mg PO BEDTIME 06/26/20 06/26/20 nicotine 1 patch TRANSDERMAL DAILY 06/26/20 06/26/20 omeprazole 20 mg PO DAILY@0630 06/26/20 06/26/20 polyethylene glycol 3350 17 g PO DAILY PRN 06/26/20 06/26/20 Previous Rx's Medication Instructions Recorded cefuroxime axetil 500 mg PO Q12H #10 tab 06/28/20 doxycycline hyclate 100 mg PO BID #10 tab 06/28/20 prednisone 40 mg PO DAILY #10 tab 06/28/20 Allergies Allergy/AdvReac Type Severity Reaction Status Date / Time aspirin [Aspirin] Allergy Unknown VOMIT Verified 11/11/20 21:31 diazepam [From Valium] Allergy Unknown UNKNOWN Verified 11/11/20 21:31 haloperidol [From Haldol] Allergy Unknown UNKN Verified 11/11/20 21:31 penicillin V Allergy Unknown Unknown Verified 11/11/20 21:31 Penicillins Allergy Unknown UNKN Verified 11/11/20 21:31 risperidone [From Risperdal] Allergy Unknown UNKNOWN Verified 11/11/20 21:31 trazodone [TRAZODONE] Allergy Unknown NAUSEA & Verified 11/11/20 21:31 VOMITING From Haldol Allergy Unknown UNKN Uncoded 11/11/20 21:31 Review of Systems Review of Systems: Constitutional : No Fever, No Chills ENT/Mouth : No Ear Pain, No Nasal Congestion, No sore throat Eyes: No Eye Pain, No Swelling, No Redness Cardiovascular : No Chest Pain, No SOB Respiratory : No Cough, No Sputum, No Dyspnea Gastrointestinal : No ingestions, No Nausea, No Vomiting, No Diarrhea, No Hematochezia, No Melena Genitourinary : No Dysuria, No Urinary Frequency, No Hematuria Musculoskeletal : No Myalgias Skin : No Skin Lesions, No rash Neuro : No Weakness, No Numbness, No Paresthesias, No Dizziness, No Headache Psych : + Anxiety, + Depression, + SI, + thoughts of self injury, + AVH, No HI Heme/Lymph: No Lymphadenopathy Endocrine : No Polyuria, No Polydipsia Yes all other systems are reviewed and are negative [facility] Past Medical History Attestation statement: The following information was validated with the patient. Medical History Asthma Schizophrenia 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 Housing: House Alcohol intake: former Smoking Status: Current every day smoker Tobacco Type: Cigarette Smoked in Last 30 Days: Yes Use of substances other than those prescribed or required for medical reasons: No Advance Directives: No Advance Directives Information Provided: Yes service: No Current occupational status: disabled Physical Exam Vital Signs: Vital Signs: Last Vital Signs Resp 16 11/11/20 20:00 Body Mass Index 39.6 vital signs have been reviewed as normal and appeared to be correct. Blood pressure normal. Heart rate normal. Respiration rate normal. Temperature normal. Oxygen saturation normal. Appearance: Alert. Oriented X3. No acute distress. Head: Normal external exam. Normocephalic. Atraumatic. Eyes: PERRLA. EOMI. Conjunctiva and sclera normal. Eyelids normal. ENT: Pharynx normal. Uvula midline. Moist mucous membranes. Neck: Normal inspection. Neck supple. FROM. No adenopathy. Thyroid Normal. No meningeal signs. No neck mass noted. CVS: Normal heart rate and rhythm. Heart sound normal. No murmurs noted. Pulses normal throughout. Respiratory: No respiratory distress. Painless inspiration. Breath sounds normal. No wheezes/rales/rhonchi noted. Chest nontender. No accessory muscle usage noted or decreased air movement noted. Abdomen: Soft and nontender. Bowel sounds normal in all 4 quadrants. No distention noted. No organomegaly noted. No visible injury noted. Back: No CVA tenderness. Full range of motion noted. Skin: Skin warm and dry. Normal skin color. Normal skin turgor. No rashes/lesions/lacerations noted. Extremities: No lower extremity edema. Extremities exhibit normal range of motion. Extremities nontender. Neuro: Oriented X 3. No motor deficit. No sensory deficit. Reflexes normal. Psych: Appearance grossly normal, well-kept, mental status normal, speech and movement normal, speech clear, patient appears very sad/anxious and depressed. Is cooperative. Normal thought process. Normal thought content. Normal good insight. Judgment good. Course Course Course Narrative: 20pm - 55-year-old female with a chronic history of mental illness, anxiety, depression, schizophrenia, hypertension, hyperlipidemia, COPD and arthritis presenting to the ED with complaints of increased anxiety/depression with auditory and visual hallucination telling her to slice her bilateral forearms although patient does not want to do this for the past few days worse today. - will obtain labs then re-evaluate. Reevaluation(s) Reevaluation #1: - random glucose 166 otherwise all other labs are within normal limits. UA within normal limits no evidence of UTI. Patient negative for all drugs. Negative for EtOH. - this time patient is medically cleared and physician observation was started at this time. Patient placed in physician observation because the patient needs more time to see N and be evaluated for the need for psychiatric rehabilitation for admission. At this time the observation was started patient's lungs are clear to auscultation. Patient is alert and oriented not in any acute distress. Neuro exam is within normal limits no focal neuro deficits are noted. CV RRR. Lungs CTA. Will continue to monitor. Patient understands agrees with this plan. Time: 22:17 [facility] - Psych Medical Records Attestation: I reviewed the patient's medical records. Lab Data Attestation: I reviewed the patient's lab results. Result diagrams: 11/11/20 20:20 11/11/20 20:21 Labs: Lab Results 11/11/20 11/11/20 11/11/20 Range/Units 20:08 20:08 20:20 WBC 8.6 (4.8-10.8) X10*3/uL RBC 4.24 (4.20-5.50) X10*6/uL Hgb 12.5 (12.0-16.0) g/dl Hct 39.4 (37-47) % MCV 92.9 (80-98) fL MCH 29.5 (27.0-33.0) pg MCHC 31.7 (31.0-35.0) g/dl RDW 13.8 (11.0-16.0) % Plt Count 265 (160-400) X10*3/uL MPV 11.4 (9.4-12.3) fL Immature Gran % (Auto) 0.5 H (0.0-0.4) % Neut % (Auto) 57.4 (45-73) % Lymph % (Auto) 33.4 (20-40) % Weld % (Auto) 7.9 (2-11) % Eos % (Auto) 0.6 (0-4) % Baso % (Auto) 0.2 (0-2) % Lymph # (Auto) 2.9 (1.2-4.9) X10*3/uL Weld # (Auto) 0.7 (0.1-1.2) X10*3/uL Eos # (Auto) 0.1 (0.0-0.4) X10*3/uL Baso # (Auto) 0.0 (0.0-0.2) X10*3/uL Abs Immat Gran (auto) 0.04 H (0.00-0.03) X10*3/uL Absolute Neuts (auto) 4.9 (2.0-8.3) X10*3/uL Absolute Nucleated RBC 0.000 (0.0-0.012) X10*3/uL Nucleated RBC % (auto) 0.0 (0.0-0.2) /100WBC PT (10.8-13.0) SEC INR (0.9-1.1) Sodium (135-145) mmol/L Potassium (3.3-5.1) mmol/L Chloride (96-108) mmol/L Carbon Dioxide (22-29) mmol/L Anion Gap (12-20) BUN (9-16) mg/dL Creatinine (0.5-1.4) mg/dL Estim Creat Clear Calc Estimated GFR Random Glucose (60-115) mg/dL Calcium (8.4-10.2) mg/dL Magnesium (1.6-2.6) mg/dL Total Bilirubin (0.0-1.0) mg/dL Direct Bilirubin (0.0-0.5) mg/dL AST (5-31) U/L ALT (0-31) U/L Alkaline Phosphatase (39-117) U/L Total Protein (6.5-8.0) g/dL Albumin (3.5-5.0) g/dL Urine Color YELLOW Urine Appearance CLEAR Urine pH 7.0 (5.0-8.0) Ur Specific [place] 1.020 (1.005-1.025) Urine Protein NEG (NEG-TRACE) MG/DL Urine Glucose (UA) NEG (NEG) MG/DL Urine Ketones NEG (NEG) MG/DL Urine Blood TRACE (NEG) Urine Nitrite NEG (NEG) Ur Leukocyte Esterase NEG (NEG) Urine RBC 1-4 (0) /HPF Urine WBC 0-2 (0-4) /HPF Ur Squamous Epith Cells 3+ /LPF Urine Bacteria TRACE /LPF Urine Opiates Screen Not Detected (Not Detect) Ur Barbiturates Screen Not Detected (Not Detect) Ur Phencyclidine Scrn Not Detected (Not Detect) Ur Amphetamines Screen Not Detected (Not Detect) U Benzodiazepines Scrn Not Detected (Not Detect) Urine Cocaine Screen Not Detected (Not Detect) U Marijuana (THC) Screen Not Detected (Not Detect) Ethyl Alcohol mg/dL 11/11/20 11/11/20 11/11/20 Range/Units 20:20 20:20 20:21 WBC (4.8-10.8) X10*3/uL RBC (4.20-5.50) X10*6/uL Hgb (12.0-16.0) g/dl Hct (37-47) % MCV (80-98) fL MCH (27.0-33.0) pg MCHC (31.0-35.0) g/dl RDW (11.0-16.0) % Plt Count (160-400) X10*3/uL MPV (9.4-12.3) fL Immature Gran % (Auto) (0.0-0.4) % Neut % (Auto) (45-73) % Lymph % (Auto) (20-40) % Weld % (Auto) (2-11) % Eos % (Auto) (0-4) % Baso % (Auto) (0-2) % Lymph # (Auto) (1.2-4.9) X10*3/uL Weld # (Auto) (0.1-1.2) X10*3/uL Eos # (Auto) (0.0-0.4) X10*3/uL Baso # (Auto) (0.0-0.2) X10*3/uL Abs Immat Gran (auto) (0.00-0.03) X10*3/uL Absolute Neuts (auto) (2.0-8.3) X10*3/uL Absolute Nucleated RBC (0.0-0.012) X10*3/uL Nucleated RBC % (auto) (0.0-0.2) /100WBC PT 12.2 (10.8-13.0) SEC INR 1.0 (0.9-1.1) Sodium 139 (135-145) mmol/L Potassium 4.9 (3.3-5.1) mmol/L Chloride 101 (96-108) mmol/L Carbon Dioxide 25 (22-29) mmol/L Anion Gap 18 (12-20) BUN 16 (9-16) mg/dL Creatinine 0.66 (0.5-1.4) mg/dL Estim Creat Clear Calc 101.5 Estimated GFR > 60 Random Glucose 166 H (60-115) mg/dL Calcium 9.7 D (8.4-10.2) mg/dL Magnesium 2.0 (1.6-2.6) mg/dL Total Bilirubin 0.2 (0.0-1.0) mg/dL Direct Bilirubin < 0.2 (0.0-0.5) mg/dL AST 13 (5-31) U/L ALT 18 (0-31) U/L Alkaline Phosphatase 76 (39-117) U/L Total Protein 7.2 (6.5-8.0) g/dL Albumin 4.4 (3.5-5.0) g/dL Urine Color Urine Appearance Urine pH (5.0-8.0) Ur Specific [place] (1.005-1.025) Urine Protein (NEG-TRACE) MG/DL Urine Glucose (UA) (NEG) MG/DL Urine Ketones (NEG) MG/DL Urine Blood (NEG) Urine Nitrite (NEG) Ur Leukocyte Esterase (NEG) Urine RBC (0) /HPF Urine WBC (0-4) /HPF Ur Squamous Epith Cells /LPF Urine Bacteria /LPF Urine Opiates Screen (Not Detect) Ur Barbiturates Screen (Not Detect) Ur Phencyclidine Scrn (Not Detect) Ur Amphetamines Screen (Not Detect) U Benzodiazepines Scrn (Not Detect) Urine Cocaine Screen (Not Detect) U Marijuana (THC) Screen (Not Detect) Ethyl Alcohol < 10 mg/dL Discharge Plan Discharge Clinical Impression: Anxiety, Suicidal ideations, Depression, Auditory hallucination, Visual hallucination Prescriptions: No Action polyethylene glycol 3350 17 gram Powder In Packet 17 g PO DAILY PRN (Reason: Constipation) RF: 0 clozapine 100 mg Tablet 300 mg PO BEDTIME RF: 0 montelukast 10 mg Tablet 10 mg PO BEDTIME RF: 0 clozapine 25 mg Tablet 50 mg PO DAILY RF: 0 omeprazole 20 mg Tablet,Delayed Release (Dr/Ec) 20 mg PO DAILY@0630 RF: 0 albuterol sulfate 2.5 mg /3 mL (0.083 %) Solution For Nebulization 2.5 mg INHALATION TID RF: 0 albuterol sulfate [ProAir HFA] 90 mcg/actuation Hfa Aerosol Inhaler 2 puff INHALATION Q4-6H PRN (Reason: Shortness Of Breath) RF: 0 fluconazole 150 mg Tablet 150 mg PO Q7D RF: 0 clonazepam 0.5 mg Tablet 0.5 mg PO DAILY RF: 0 clonazepam 1 mg Tablet 1 mg PO BEDTIME RF: 0 lisinopril 10 mg Tablet 10 mg PO BEDTIME RF: 0 docusate sodium 100 mg Capsule 100 mg PO BID RF: 0 fluoxetine 20 mg Capsule 20 mg PO DAILY RF: 0 Flovent HFA 110 mcg/actuation Hfa Aerosol Inhaler 2 puff INHALATION BID RF: 0 bisacodyl 5 mg Tablet 5 mg PO BEDTIME RF: 0 lactulose [Generlac] 10 gram/15 mL Solution 10 g PO DAILY PRN (Reason: Constipation) RF: 0 divalproex 500 mg Tablet Extended Release 24 Hr 1,500 mg PO BEDTIME RF: 0 nicotine 21 mg/24 hr Patch 24 Hour 1 patch TRANSDERMAL DAILY RF: 0 cefuroxime axetil 500 mg tablet 500 mg PO Q12H Qty: 10 RF: 0 doxycycline hyclate 100 mg tablet 100 mg PO BID Qty: 10 RF: 0 prednisone 20 mg tablet 40 mg PO DAILY Qty: 10 RF: 0
--- NOTE | 2020-11-11 22:38 | PC.NURSE ---
Per Gracy (care team), possible M5 admission, pending [facility] evaluation. This RN faxed/called to [facility], receipt of fax confirmed by Ronna over the phone. Pt has remained in behavioral control since arrival, reporting auditory and visual hallucinations where voices are telling her to cut herself. Pt reports that she does not want to act on these command hallucinations, so she came to the ED voluntarily. Denies drug/ETOH use (confirmed by negative drug & ETOH screen). Denies SI/HI. Pending N/Crisis evaluation.
--- NOTE | 2020-11-11 23:11 | PC.NURSE ---
Patient in bed appears sleeping, no distress reported/observed, waiting to be seen by BHN, will continue to monitor.
[2020-11-11 23:55] LABS: Delay - Chemistry DELAY
[2020-11-12] VITALS: BP 163/90; PULSE 98; RESP 20; TEMP 36.4; O2SAT 98
[2020-11-12 00:17] LABS: COVID-19 Test Negative (Negative)
[2020-11-12 01:36] LABS: Valproate 65.8 mcg/mL (50.0-100.0)
[2020-11-12] MEDS: cloZAPine 100 MG TABLET 300 MG PO (01:47)
[2020-11-12] MEDS: Divalproex Sodium ER 500 MG TAB.ER.24H 1500 MG PO (01:47)
[2020-11-12] MEDS: Docusate Sodium 100 MG CAPSULE PO ×2 (01:48→01:49)
[2020-11-12] MEDS: Montelukast Sodium 10 MG TABLET PO (01:48)
[2020-11-12] MEDS: clonazePAM 1 MG TABLET PO (01:48)
[2020-11-12] MEDS: bisacodyL 5 MG TABLET.DR PO (01:50)
[2020-11-12] MEDS: traMADoL HCL 50 MG TABLET PO ×2 (02:12→08:02)
--- NOTE | 2020-11-12 03:57 | PC.NURSE ---
Patient in bed appears sleeping at this time, no distress observed/reported, N updated patient's disposition, patient will be discharged in the morning at 0830 am to Respite, patient and provider aware, will continue to monitor
--- NOTE | 2020-11-12 06:54 | PC.NURSE ---
Report received. PT currently sleeping, respirations even and unlabored, in no apparent distres. PT is to be discharged to respite this morning.
--- NOTE | 2020-11-12 07:26 | HE.PHANOTE ---
CONTACTED JACKIE REGARDING PATIENTS CLOZARIL DOSE/LAST TAKEN. PT BROUGHY IN ALL MEDICATIONS FROM MED BOX AND IS REPORTING TAKING HER MEDICATIONS DAILY. LABS WERE ENTERED IN CLOZAPINE REMS
--- NOTE | 2020-11-12 07:53 | PC.NURSE ---
[facility] called, confirmed they will call a taxi to pick PT up for 830 to bring her to respite.
[2020-11-12 08:01] VITALS: BP 121/76; PULSE 80; RESP 16; TEMP 36.9; O2SAT 97
[2020-11-12] MEDS: cloZAPine 25 MG TABLET 50 MG PO (08:02)
[2020-11-12 08:03] VITALS: BP 121/76; PULSE 80
[2020-11-12] MEDS: lisinopriL 10 MG TABLET PO (08:03)
[2020-11-12] MEDS: Fluticasone Propionate 100 MCG BLST.W.DEV 1 PUFF INHALE (08:04)
[2020-11-12] MEDS: Nicotine 21 MG PATCH.TD24 TRANSDERMA (08:04)
[2020-11-12] MEDS: clonazePAM 0.5 MG TABLET PO (08:04)
[2020-11-12] MEDS: Omeprazole 20 MG CAPSULE.DR PO (08:04)
[2020-11-12] MEDS: FLUoxetine HCl 20 MG CAPSULE PO (08:04)
== END 2020-11-12 08:31 | disposition home or self-care (01) ==
PROVIDERS: Physician Assistant Medical; Emergency Provider Internal Medicine; PCP Internal Medicine
DX: F41.9 Anxiety disorder, unspecified (principal); R45.851 Suicidal ideations; F32.9 Major depressive disorder, single episode, unspecified; F20.9 Schizophrenia, unspecified; R44.0 Auditory hallucinations; R44.1 Visual hallucinations; Z20.822 Contact with and (suspected) exposure to COVID-19; E78.5 Hyperlipidemia, unspecified; J44.9 Chronic obstructive pulmonary disease, unspecified; F17.210 Nicotine dependence, cigarettes, uncomplicated; Z79.899 Other long term (current) drug therapy
CPT/HCPCS: 36415; 80048; 80076; 80164; 80307; 80320; 81001; 83735; 85025; 85610; 87635; 99285

== ENCOUNTER 2020-11-14 18:36 | Inpatient (IN) | payer OTHER, MEDICAID, SELFPAY ==
--- NOTE | 2020-11-14 18:56 | PC.NURSE ---
Pt arrived via EMS- pt requested to come to ED for AH/VH. Per EMS pt is voluntary, but clinician at [facility] respite completed Section 12. Per pt, pt has been compliant w/ medications.
[2020-11-14 19:03] VITALS: BP 152/83; PULSE 111; RESP 18; TEMP 36.2; O2SAT 95; BMI 29.2
[2020-11-14 19:43] LABS: Amphetamine Screen Urine Not Detected (Not Detect); Barbiturates, Urine Not Detected (Not Detect); Benzodiazepines Screen Urine Not Detected (Not Detect); Cannabinoid Screen Urine Not Detected (Not Detect); Cocaine Screen Urine Not Detected (Not Detect); Opiate Screen Urine Not Detected (Not Detect); Phencyclidine Screen Urine Not Detected (Not Detect)
--- NOTE | 2020-11-14 19:55 | PC.NURSE ---
MAGGIE faxed/called/spoke with [facility]/confirmed receipt of referral, no ETA at this time, Medication Recs completed, provider notified/pending MAR update, patient calm and quiet in her bed, watching TV, no distress observed/reported, will continue to monitor.
[2020-11-14 20:07] LABS: COVID-19 Test Negative (Negative); IDNOW Serial# 9DD0AD1C
--- NOTE | 2020-11-14 20:22 | ED_ITS ---
HPI - Psych General Chief Complaint: Psychiatric Symptoms Stated Complaint: CRISI/HALLUCINATIONS Time Seen by Provider: 11/14/20 18:43 Source: patient Mode of arrival: ambulatory Limitations: no limitations History of Present Illness HPI Narrative: Patient presents to the ED for for auditory and visual hallucinations. Patient states hearing voices the tele to hurt herself and also seeing snakes & fire Related Data Home Medications Medication Instructions Recorded Confirmed Flovent HFA 2 puff INHALATION BID 06/26/20 11/14/20 albuterol sulfate 2.5 mg INHALATION TID 06/26/20 11/14/20 albuterol sulfate [ProAir HFA] 2 puff INHALATION Q4-6H PRN 06/26/20 11/14/20 bisacodyl 5 mg PO BEDTIME 06/26/20 11/14/20 clonazepam 0.5 mg PO DAILY 06/26/20 11/14/20 clonazepam 1 mg PO BEDTIME 06/26/20 11/14/20 clozapine 50 mg PO DAILY 06/26/20 11/14/20 clozapine 300 mg PO BEDTIME 06/26/20 11/14/20 divalproex 1,500 mg PO BEDTIME 06/26/20 11/14/20 docusate sodium 100 mg PO BID 06/26/20 11/14/20 fluoxetine 20 mg PO QAM 06/26/20 11/14/20 lactulose [Generlac] 10 g PO DAILY PRN 06/26/20 11/14/20 lisinopril 10 mg PO QAM 06/26/20 11/14/20 montelukast 10 mg PO BEDTIME 06/26/20 11/14/20 nicotine 1 patch TRANSDERMAL DAILY 06/26/20 11/14/20 omeprazole 20 mg PO DAILY@0630 06/26/20 11/14/20 polyethylene glycol 3350 17 g PO DAILY PRN 06/26/20 11/14/20 tramadol 1 tab PO Q6H 11/12/20 11/14/20 Allergies Allergy/AdvReac Type Severity Reaction Status Date / Time aspirin [Aspirin] Allergy Unknown VOMIT Verified 11/11/20 21:31 diazepam [From Valium] Allergy Unknown UNKNOWN Verified 11/11/20 21:31 haloperidol [From Haldol] Allergy Unknown UNKN Verified 11/11/20 21:31 penicillin V Allergy Unknown Unknown Verified 11/11/20 21:31 Penicillins Allergy Unknown UNKN Verified 11/11/20 21:31 risperidone [From Risperdal] Allergy Unknown UNKNOWN Verified 11/11/20 21:31 trazodone [TRAZODONE] Allergy Unknown NAUSEA & Verified 11/11/20 21:31 VOMITING From Haldol Allergy Unknown UNKN Uncoded 11/11/20 21:31 Review of Systems Constitutional: Constitutional: Reports as per HPI and Reports no additional constitutional complaints Eyes: Eyes: Reports as per HPI and Reports no additional eye complaints ENT: Reports system reviewed and no additional complaints, except as documented and Reports as per HPI Cardiovascular: Cardiovascular: Reports as per HPI and Reports no additional cardiovascular complaints Respiratory: Respiratory: Reports as per HPI and Reports no additional respiratory complaints Gastrointestinal: Gastrointestinal: Reports as per HPI and Reports no additional gastrointestinal complaints Genitourinary: Genitourinary: Reports no additional female genitourinary complaints and Reports as per HPI Musculoskeletal: Musculoskeletal: Reports no additional musculoskeletal complaints and Reports as per HPI Neurologic: Reports system reviewed and no additional complaints, except as documented and Reports as per HPI Psychiatric: Psychiatric: Reports no additional psychiatric complaints and Reports as per HPI PMF Past Medical History Medical History Asthma Schizophrenia 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 Housing: House Alcohol intake: former Smoking Status: Current every day smoker Tobacco Type: Cigarette Advance Directives: No Advance Directives Information Provided: Yes service: No Current occupational status: disabled Physical Exam Vital Signs: Vital Signs: Last Vital Signs Temp 97.6 F 11/14/20 21:01 Pulse 110 H 11/14/20 21:01 Resp 20 11/14/20 21:01 BP 110/60 11/14/20 21:01 Pulse Ox 95 11/14/20 21:01 Body Mass Index 29.2 Const: General: cooperative, healthy appearing, comfortable, no acute distress, well developed, alert and awake Orientation/consciousness: patient oriented x3 HENMT: Head: Yes normal to inspection, Yes No palpable skull fracture present, Yes normocephalic and Yes atraumatic Eyes: General: appearance normal, both eyes and all related structures Neck: Neck: Yes normal visual inspection, Yes full ROM, Yes no lymphadenopathy, Yes no meningeal signs, Yes trachea midline, Yes supple and No tender Chest: Chest palpation & inspection: normal inspection of the chest and normal palpation of entire chest wall Resp: Effort & Inspection: normal respiratory effort and able to speak in complete sentences Auscultation: clear to auscultation bilaterally Cardio: Jugular venous distension: no JVD Heart sounds: S1 normal heart sound present and S2 normal heart sound present GI: Inspection: Yes normal to inspection and No abdominal wall ecchymosis Palpation (GI): Soft to palpation, not firm, nontender, no guarding and not rigid : General: No CVA tenderness and Yes no CVA tenderness Back/Spine/Pelvis: Back: no CVA tenderness, No CVA tenderness and No back tenderness Skin: General skin exam: no rashes or lesions noted and elasticity normal Neuro: General: patient oriented x3, no meningeal signs and CN's II-XI intact bilaterally Cranial nerves: Yes CN's II-XII intact bilaterally Extrem: General: Yes normal to inspection and Yes full ROM Psych: Appearance: grossly normal, well kempt and not disheveled Course Course Course Narrative: Patient to be evaluated by [facility]. Patient is not suicidal or homicidal. Patient states she is taking her meds. Reevaluation(s) Reevaluation #1: Patient seen by care team consulted had other who states patient should be placed for inpatient and Section 12. MDM - Psych MDM Narrative Medical decision making narrative: Schizophrenia Lab Data Labs: Lab Results 11/14/20 11/14/20 11/14/20 Range/Units 19:11 19:11 19:12 Urine Color YELLOW Urine Appearance CLEAR Urine pH 6.0 (5.0-8.0) Ur Specific [place] >= 1.030 H (1.005-1.025) Urine Protein NEG (NEG-TRACE) MG/DL Urine Glucose (UA) NEG (NEG) MG/DL Urine Ketones 5 (NEG) MG/DL Urine Blood TRACE (NEG) Urine Nitrite NEG (NEG) Ur Leukocyte Esterase NEG (NEG) Urine RBC 0-2 (0) /HPF Urine WBC 0 (0-4) /HPF Ur Squamous Epith Cells 2+ /LPF Calcium Oxalate Crystal 4+ /LPF Urine Bacteria TRACE /LPF Urine Mucus 1+ /LPF Urine Opiates Screen Not Detected (Not Detect) Ur Barbiturates Screen Not Detected (Not Detect) Ur Phencyclidine Scrn Not Detected (Not Detect) Ur Amphetamines Screen Not Detected (Not Detect) U Benzodiazepines Scrn Not Detected (Not Detect) Urine Cocaine Screen Not Detected (Not Detect) U Marijuana (THC) Screen Not Detected (Not Detect) COVID-19 ([facility]ACE) Negative (Negative) COVID-19 Clin Com See Note Discharge Plan Discharge Clinical Impression: Schizophrenia Prescriptions: No Action tramadol 50 mg tablet 1 tab PO Q6H RF: 0 polyethylene glycol 3350 17 gram Powder In Packet 17 g PO DAILY PRN (Reason: Constipation) RF: 0 clozapine 100 mg Tablet 300 mg PO BEDTIME RF: 0 montelukast 10 mg Tablet 10 mg PO BEDTIME RF: 0 clozapine 25 mg Tablet 50 mg PO DAILY RF: 0 omeprazole 20 mg Tablet,Delayed Release (Dr/Ec) 20 mg PO DAILY@0630 RF: 0 albuterol sulfate 2.5 mg /3 mL (0.083 %) Solution For Nebulization 2.5 mg INHALATION TID RF: 0 albuterol sulfate [ProAir HFA] 90 mcg/actuation Hfa Aerosol Inhaler 2 puff INHALATION Q4-6H PRN (Reason: Shortness Of Breath) RF: 0 clonazepam 0.5 mg Tablet 0.5 mg PO DAILY RF: 0 clonazepam 1 mg Tablet 1 mg PO BEDTIME RF: 0 lisinopril 10 mg Tablet 10 mg PO QAM RF: 0 docusate sodium 100 mg Capsule 100 mg PO BID RF: 0 fluoxetine 20 mg Capsule 20 mg PO QAM RF: 0 Flovent HFA 110 mcg/actuation Hfa Aerosol Inhaler 2 puff INHALATION BID RF: 0 bisacodyl 5 mg Tablet 5 mg PO BEDTIME RF: 0 lactulose [Generlac] 10 gram/15 mL Solution 10 g PO DAILY PRN (Reason: Constipation) RF: 0 divalproex 500 mg Tablet Extended Release 24 Hr 1,500 mg PO BEDTIME RF: 0 nicotine 21 mg/24 hr Patch 24 Hour 1 patch TRANSDERMAL DAILY RF: 0
[2020-11-14 20:39] LABS: Glucose Urine UA NEG (NEG); Leukocyte Esterase Urine NEG (NEG); Nitrite Urine NEG (NEG); Specific Gravity - Urine >= 1.030 (1.005-1.025); Urine Blood TRACE (NEG); Urine Ketones 5 MG/DL (NEG); Urine Protein NEG (NEG-TRACE)
[2020-11-14 20:42] LABS: Appearance Urine CLEAR; Color Urine YELLOW
[2020-11-14 20:59] LABS: WBC Urine 0 /HPF (0-4)
[2020-11-14 21:00] LABS: Bacteria Urine TRACE /LPF; RBC Urine 0-2 /HPF (0); Squamous Epithelial Cell Urine 2+ /LPF
[2020-11-14 21:01] VITALS: BP 110/60; PULSE 110; RESP 20; TEMP 36.4; O2SAT 95
[2020-11-14 21:01] LABS: Calcium Oxalate Crystals Urine 4+ /LPF; Mucus Urine 1+ /LPF
[2020-11-14] MEDS: clonazePAM 1 MG TABLET PO (21:02)
[2020-11-14] MEDS: bisacodyL 5 MG TABLET.DR PO (21:02)
[2020-11-14] MEDS: Divalproex Sodium ER 500 MG TAB.ER.24H 1500 MG PO (21:02)
[2020-11-14] MEDS: Docusate Sodium 100 MG CAPSULE PO (21:02)
[2020-11-14] MEDS: traMADoL HCL 50 MG TABLET PO (21:02)
[2020-11-14] MEDS: Montelukast Sodium 10 MG TABLET PO (21:03)
[2020-11-14] MEDS: cloZAPine 100 MG TABLET 300 MG PO (21:16)
--- NOTE | 2020-11-14 22:59 | MHC.CARE ---
CARE team contacted [facility] paint roller covers supervisor re: pt who was referred for eval after arriving on a Sect 12 from [facility] for worsening hallucinations. Pt was evaluated by [facility] on 11/11/20 (overnight) with disposition for respite placement. [facility] unable to provide a clinician to complete assessment this evening. As pt is outside of the 24 hour initial assessment period, pt does not require a N re-eval and can be seen by the CARE team. This credit underwriter completed pt's evaluation with disposition for inpt psych placement. ED provider is in agreement with plan of care. Pt will remain in ED until she is accepted for admission to a facility. Pt voiced preference for M5.
--- NOTE | 2020-11-14 23:11 | PC.NURSE ---
Care Team assessed the patient, disposition Sec 12 Inpatient Bed Search.
[2020-11-15 04:22] VITALS: BP 136/82; PULSE 90; RESP 18; TEMP 36.3; O2SAT 96
[2020-11-15] MEDS: Omeprazole 20 MG CAPSULE.DR PO (05:40)
--- NOTE | 2020-11-15 06:40 | PC.NURSE ---
Patient just woke up and voided in his room before staff could redirect the patient, will continue to monitor.
[2020-11-15 08:50] VITALS: BP 122/69; PULSE 82; RESP 16; TEMP 36.8; O2SAT 97
[2020-11-15] MEDS: Nicotine 21 MG PATCH.TD24 TRANSDERMA (08:51)
[2020-11-15] MEDS: Docusate Sodium 100 MG CAPSULE PO ×2 (08:51→20:59)
[2020-11-15] MEDS: cloZAPine 25 MG TABLET 50 MG PO (08:51)
[2020-11-15] MEDS: clonazePAM 0.5 MG TABLET PO (08:51)
[2020-11-15] MEDS: FLUoxetine HCl 20 MG CAPSULE PO (08:51)
[2020-11-15 08:52] VITALS: PULSE 82
[2020-11-15] MEDS: lisinopriL 10 MG TABLET PO (08:52)
[2020-11-15] MEDS: traMADoL HCL 50 MG TABLET PO ×3 (08:52→20:59)
--- NOTE | 2020-11-15 13:36 | ECG_ITS ---
Test Reason : MED SIDE EFFECT Blood Pressure : / mmHG Vent. Rate : 092 BPM Atrial Rate : 092 BPM P-R Int : 132 ms QRS Dur : 080 ms QT Int : 366 ms P-R-T Axes : 063 048 021 degrees QTc Int : 452 ms Normal sinus rhythm Nonspecific T wave abnormality Abnormal ECG When compared with ECG of 02-JUL-2020 14:12, No significant change was found Referred By: Ayala Brown Electronically Signed By:Omar Read
[2020-11-15 13:49] LABS: MANUAL DIFF FLAG NO
[2020-11-15 13:50] LABS: Basophils Percent Auto 0.3 % (0-2); Eosinophils Absolute Auto 0.1 X10*3/uL (0.0-0.4); Eosinophils Percent Auto 1.4 % (0-4); Hematocrit 38.8 % (37-47); Hemoglobin 12.3 g/dl (12.0-16.0); Imm Gran Abs Auto 0.03 X10*3/uL (0.00-0.03); Imm Gran Pct Auto 0.4 % (0.0-0.4); Lymphocytes Percent Auto 41.4 % (20-40); Mean Corpuscular HGB Conc 31.7 g/dl (31.0-35.0); Mean Corpuscular Hemoglobin 29.8 pg (27.0-33.0); Mean Corpuscular Volume 93.9 fL (80-98); Mean Platelet Volume 11.7 fL (9.4-12.3); Monocytes Absolute Auto 0.5 X10*3/uL (0.1-1.2); Monocytes Percent Auto 6.3 % (2-11); Neutrophils Absolute Auto 3.6 X10*3/uL (2.0-8.3); Neutrophils Percent Auto 50.2 % (45-73); Platelet Count 233 X10*3/uL (160-400); Red Blood Count 4.13 X10*6/uL (4.20-5.50); Red Cell Distribution Width 13.6 % (11.0-16.0); White Blood Count 7.2 X10*3/uL (4.8-10.8)
--- NOTE | 2020-11-15 14:13 | MHC.CARE ---
CARE team completed CV w pt. After N to N completed labs and ekg required in order to be admitted to .
--- NOTE | 2020-11-15 19:17 | PC.NURSE ---
Report received. PT is sleeping in bed. Respirations even and unlabored. PT is waiting to be transferred to .
[2020-11-15] MEDS: Fluticasone Propionate 250 MCG BLST.W.DEV 2 PUFF INHALE (20:52)
[2020-11-15] MEDS: bisacodyL 5 MG TABLET.DR PO (20:59)
[2020-11-15] MEDS: Montelukast Sodium 10 MG TABLET PO (20:59)
[2020-11-15] MEDS: Divalproex Sodium ER 500 MG TAB.ER.24H 1500 MG PO (20:59)
[2020-11-15] MEDS: clonazePAM 1 MG TABLET PO (20:59)
[2020-11-15 21:29] VITALS: BP 165/91; PULSE 99; RESP 14; O2SAT 99
[2020-11-15] MEDS: cloZAPine 100 MG TABLET 300 MG PO (21:48)
[2020-11-15 23:28] VITALS: BP 122/59; PULSE 101; RESP 18; TEMP 36.3; O2SAT 96
[2020-11-16] MEDS: Milk of Magnesia 30 ML ORAL.SUSP PO (01:23)
[2020-11-16 01:30] VITALS: BMI 35.4
--- NOTE | 2020-11-16 02:33 | PC.ADMIT ---
Addendum entered by Elva Horn RN 11/16/20 02:51: WBC/ANC was 7.2/3.6. 11/15/20 other labs are WNL and unremarkable . BAL is not done. UDS was negative. Patient was pleasant, calm and cooperative, but flat affect. She does not appeared to respond to internal stimuli. Patient signed all legal paper work with evenings staff. No cough or SOB or trouble breathing on admission. HS medications were offered to patient from staff in the pod. MOM offered for patient at around 0123 for constipation with pending effect. Original Note: Patient is a 55 Mohawk speaking only female admitted to on 11/15/20 at around 2310 under CV. Patient was placed on 5 min checks with ULB for own safety. Information obtained from [facility] via in person translator/interpreter and care team. Patient stated that she experienec CAH/ VH and the voices telling her to cut self or to hit her head on the wall. Patient also reports she saw blood and snake as VH as well. Patient reports that those still bothered her on admission but she agreed to seek out to staff if she cannot control them. Denied SI on admission but said that she has hx of OD on her own medication many years ago. Patient also reports that she had hx of restrainted many years ago at [facility] due to lost control . Patient appeared relaxed during admssion process in the kitchen with and the translator/interpreter. She c/o pain 04/29 on valerie. knees due to arthritis. Patient stated that she has constipated issues with last BM was 3 days ago. Education given to prevent complication from constipation as patient currently taking total of 350 mg clozaril /day. Patient reportst medication compliant and she has [facility]. Med hx: Arthritis, HTN, hyperlipidemia. PSH: Knree replacement and breast mass(right). Psych hx: patient is a former patient on . Per care team note, patient has long hx of inpatient (12 +) and respite (25+) admissions since 2011. VS WNL. EKG was done in the ED, with NSR but abnomal EKG ( QT/QTc 366/452). WBC and ANC was 7.2/3/6
[2020-11-16 06:40] VITALS: BP 107/59; PULSE 82; RESP 20; TEMP 36.2; O2SAT 97
[2020-11-16] MEDS: Omeprazole 20 MG CAPSULE.DR PO (07:04)
[2020-11-16] MEDS: Nicotine 21 MG PATCH.TD24 TRANSDERMA (10:33)
[2020-11-16] MEDS: FLUoxetine HCl 20 MG CAPSULE PO (10:33)
[2020-11-16] MEDS: traMADoL HCL 50 MG TABLET PO ×3 (10:33→21:50)
[2020-11-16] MEDS: cloZAPine 25 MG TABLET 50 MG PO (10:33)
[2020-11-16] MEDS: clonazePAM 0.5 MG TABLET PO (10:34)
[2020-11-16] MEDS: Docusate Sodium 100 MG CAPSULE PO ×2 (10:34→21:50)
[2020-11-16 10:38] VITALS: BP 114/59; PULSE 99
--- NOTE | 2020-11-16 11:22 | P.HPPS_ITS ---
HPI Chief Complaint: Psychosis Sources of Information: patient interviewed, chart reviewed and crisis/core team assessment reviewed HPI Subjective Notes: Conditional Voluntary Narrative: Ms. Beckwith is a 55 year old woman with hx of schizophrenia. She was brought via EMS to [facility] on 11/14/[address] on a section [address] [facility] due to increase AH, hitting head on wall due to CAH. Pt reported seeing blood on the wall, snakes and having CAH telling her to either cut herself or hit her head on the wall. Her utox was negative. On the unit, pt initially somnolent. She reports not sleeping for about 4 nights. She reports last night able to sleep a little bit better. Pt reports hearing male voices, telling her to hurt herself. She reports increased in AH for past 4 days. She reports taking medications as prescribed. Pt has [facility] that comes to her house- pt lives in [facility]- weekly and fills pillbox. Pt endorses increased depression due to increase AH. Pt does note that if voices decrease, she wouldn't be feeling so depressed, anxious and overwhelmed. She reports passive suicidal ideation but denies any plan or intent. She denies HI. She reports feeling safe in the unit. Past Psychiatric History: Inpt: more than 15 inpt admissions, mostly at [facility] and [facility]. OP: [facility], Zhao Cardenas APRN and Adrienne Beckwith. Past medication trials: clozaril, prozac, clonazepam. Medical Evaluation Reviewed: Yes [facility] Medical History Asthma Schizophrenia Family History: Paternal uncle- schizophrenia Social History: Pt has lived in [facility] for more than 15 years. She has two adult children in their 20's. Substance History: none Diagnostics Vital Signs (24Hr): Vital Signs - 24 hr 11/15/20 21:29 11/15/20 23:28 11/16/20 06:40 Temperature 97.3 F 97.1 F Pulse Rate 99 101 H 82 Respiratory Rate 14 18 20 Blood Pressure 165/91 H 122/59 L 107/59 L Pulse Oximetry 99 96 97 11/16/20 10:38 Temperature Pulse Rate 99 Respiratory Rate Blood Pressure 114/59 L Pulse Oximetry Body Mass Index 35.4 Labs Results: 11/15/20 13:44 Labs: Laboratory Results - last 48 hr 11/14/20 11/14/20 11/14/20 19:11 19:11 19:12 WBC RBC Hgb Hct MCV MCH MCHC RDW Plt Count MPV Immature Gran % (Auto) Neut % (Auto) Lymph % (Auto) [place] % (Auto) Eos % (Auto) Baso % (Auto) Lymph # (Auto) [place] # (Auto) Eos # (Auto) Baso # (Auto) Abs Immat Gran (auto) Absolute Neuts (auto) Absolute Nucleated RBC Nucleated RBC % (auto) Urine Color YELLOW Urine Appearance CLEAR Urine pH 6.0 Ur Specific [place] >= 1.030 H Urine Protein NEG Urine Glucose (UA) NEG Urine Ketones 5 Urine Blood TRACE Urine Nitrite NEG Ur Leukocyte Esterase NEG Urine RBC 0-2 Urine WBC 0 Ur Squamous Epith Cells 2+ Calcium Oxalate Crystal 4+ Urine Bacteria TRACE Urine Mucus 1+ Urine Opiates Screen Not Detected Ur Barbiturates Screen Not Detected Ur Phencyclidine Scrn Not Detected Ur Amphetamines Screen Not Detected U Benzodiazepines Scrn Not Detected Urine Cocaine Screen Not Detected U Marijuana (THC) Screen Not Detected COVID-19 ([facility]) Negative COVID-19 Clin Com See Note 11/15/20 13:44 WBC 7.2 RBC 4.13 L Hgb 12.3 Hct 38.8 MCV 93.9 MCH 29.8 MCHC 31.7 RDW 13.6 Plt Count 233 MPV 11.7 Immature Gran % (Auto) 0.4 Neut % (Auto) 50.2 Lymph % (Auto) 41.4 H [place] % (Auto) 6.3 Eos % (Auto) 1.4 Baso % (Auto) 0.3 Lymph # (Auto) 3.0 [place] # (Auto) 0.5 Eos # (Auto) 0.1 Baso # (Auto) 0.0 Abs Immat Gran (auto) 0.03 Absolute Neuts (auto) 3.6 Absolute Nucleated RBC 0.000 Nucleated RBC % (auto) 0.0 Urine Color Urine Appearance Urine pH Ur Specific [place] Urine Protein Urine Glucose (UA) Urine Ketones Urine Blood Urine Nitrite Ur Leukocyte Esterase Urine RBC Urine WBC Ur Squamous Epith Cells Calcium Oxalate Crystal Urine Bacteria Urine Mucus Urine Opiates Screen Ur Barbiturates Screen Ur Phencyclidine Scrn Ur Amphetamines Screen U Benzodiazepines Scrn Urine Cocaine Screen U Marijuana (THC) Screen COVID-19 ([facility]) COVID-19 Clin Com Meds/Allergies Meds Home Medications Acetaminophen (Acetaminophen 325 Mg Tablet) 650 mg PO Q6H PRN PRN Reason: Headache/Pain Mild Scale (1-3) Al Hydroxide/Mg Hydroxide (Magnesium Hydrox/Alum Hydrox 30 Ml Oral.Susp) 30 ml PO Q6H PRN PRN Reason: Heartburn/Nausea Albuterol Sulfate (Albuterol Sulfate (0.083%) 2.5 Mg/3 Ml Vial.Neb) 2.5 mg INHALE RTID [facility] Last Admin: 11/16/20 10:38 Dose: Not Given Documented by: Albuterol Sulfate (Albuterol Sulfate 90 Mcg 8 Gm Inhaler) 2 puff INHALE Q4H PRN PRN Reason: Shortness Of Breath Bisacodyl (Bisacodyl 5 Mg Tablet.Dr) 5 mg PO BEDTIME [facility] Last Admin: 11/15/20 20:59 Dose: 5 mg Documented by: Clonazepam (Clonazepam 0.5 Mg Tablet) 0.5 mg PO DAILY [facility] Last Admin: 11/16/20 10:34 Dose: 0.5 mg Documented by: Clonazepam (Clonazepam 1 Mg Tablet) 1 mg PO BEDTIME [facility] Last Admin: 11/15/20 20:59 Dose: 1 mg Documented by: Clozapine (Clozapine 25 Mg Tablet) 50 mg PO DAILY [facility] Last Admin: 11/16/20 10:33 Dose: 50 mg Documented by: Clozapine (Clozapine 100 Mg Tablet) 300 mg PO BEDTIME [facility] Last Admin: 11/15/20 21:48 Dose: 300 mg Documented by: Divalproex Sodium (Divalproex Sodium Er 500 Mg Tab.Er.24h) 1,500 mg PO BEDTIME [facility] Last Admin: 11/15/20 20:59 Dose: 1,500 mg Documented by: Docusate Sodium (Docusate Sodium 100 Mg Capsule) 100 mg PO BID [facility] Last Admin: 11/16/20 10:34 Dose: 100 mg Documented by: Fluoxetine HCl (Fluoxetine Hcl 20 Mg Capsule) 20 mg PO DAILY [facility] Last Admin: 11/16/20 10:33 Dose: 20 mg Documented by: Fluticasone Propionate (Fluticasone Propionate 250 Mcg Blst.W.Dev) 2 puff INHALE RBID [facility] Last Admin: 11/16/20 10:38 Dose: Not Given Documented by: Hydroxyzine HCl (Hydroxyzine Hcl 25 Mg Tablet) 25 mg PO BEDTIME PRN PRN Reason: Anxiety Lactulose (Lactulose 20 Gm/30 Ml Solution) 10 gm PO DAILY PRN PRN Reason: Constipation Lisinopril (Lisinopril 10 Mg Tablet) 10 mg PO DAILY [facility]; Protocol Last Admin: 11/16/20 10:38 Dose: Not Given Documented by: Magnesium Hydroxide (Milk Of Magnesia 30 Ml Oral.Susp) 30 ml PO DAILY PRN PRN Reason: Constipation Last Admin: 11/16/20 01:23 Dose: 30 ml Documented by: Montelukast Sodium (Montelukast Sodium 10 Mg Tablet) 10 mg PO BEDTIME [facility] Last Admin: 11/15/20 20:59 Dose: 10 mg Documented by: Nicotine (Nicotine 21 Mg Patch.Td24) 21 mg TRANSDERMA DAILY [facility] Last Admin: 11/16/20 10:33 Dose: 21 mg Documented by: Omeprazole (Omeprazole 20 Mg Capsule.Dr) 20 mg PO DAILY@0630 [facility] Last Admin: 11/16/20 07:04 Dose: 20 mg Documented by: Polyethylene Glycol (Polyethylene Glycol 3350 17 Gm Powd.Pack) 17 gm PO DAILY PRN PRN Reason: Constipation Tramadol HCl (Tramadol Hcl 50 Mg Tablet) 50 mg PO QID [facility] Last Admin: 11/16/20 10:33 Dose: 50 mg Documented by: Allergies Allergies Allergy/AdvReac Type Severity Reaction Status Date / Time aspirin [Aspirin] Allergy Unknown VOMIT Verified 11/11/20 21:31 diazepam [From Valium] Allergy Unknown UNKNOWN Verified 11/11/20 21:31 haloperidol [From Haldol] Allergy Unknown UNKN Verified 11/11/20 21:31 penicillin V Allergy Unknown Unknown Verified 11/11/20 21:31 Penicillins Allergy Unknown UNKN Verified 11/11/20 21:31 risperidone [From Risperdal] Allergy Unknown UNKNOWN Verified 11/11/20 21:31 trazodone [TRAZODONE] Allergy Unknown NAUSEA & Verified 11/11/20 21:31 VOMITING From Haldol Allergy Unknown UNKN Uncoded 11/11/20 21:31 Mental Status Exam Mental Status Exam Narrative: Appearance: MO, poor hygiene, in NAD Behavior: somewhat guarded but cooperative Psychomotor: no agitation or retardation noted Speech: clear, normal rate/rhythm/volume, spontaneous TP: tangential TC: AH, feeling freighten but AH Mood: depressed Affect:blunted, fearful SI:passive, no plan or intent HI:none AH/VH:+AH male voices, VH seeing blood. Delusions:some paranoid delusions Insight/judgment:poor x 2. Memory/cog: alert, oriented x 3. impaired secondary to psych symptoms and underlying cognitive impairements. Assessment & Plan Assessment & Plan (1) Schizophrenia: Status: Acute Code(s): F20.9 - Schizophrenia, unspecified Assessment and Plan: Will obtain collateral information from OP prescriber, Zhao Cardenas and [facility] Iris. 1. Continue clozaril 2. d/c prozac as may increase psychosis (2) Arthritis: Status: Acute Code(s): M19.90 - Unspecified osteoarthritis, unspecified site (3) COPD (chronic obstructive pulmonary disease): Status: Acute Code(s): J44.9 - Chronic obstructive pulmonary disease, unspecified (4) Hypertension: Status: Acute Code(s): I10 - Essential (primary) hypertension (5) Hyperlipidemia: Status: Acute Code(s): E78.5 - Hyperlipidemia, unspecified Reason for continued inpatient stay Substantial Risk for: harm to self and inability to function
[2020-11-16] MEDS: Lactulose 20 GM/30 ML SOLUTION 10 GM PO ×2 (13:41→21:49)
[2020-11-16 19:15] VITALS: BP 103/56; PULSE 92; TEMP 36.3
[2020-11-16] MEDS: Fluticasone Propionate 250 MCG BLST.W.DEV 2 PUFF INHALE (21:47)
[2020-11-16] MEDS: clonazePAM 1 MG TABLET PO (21:49)
[2020-11-16] MEDS: Divalproex Sodium ER 500 MG TAB.ER.24H 1500 MG PO (21:49)
[2020-11-16] MEDS: cloZAPine 100 MG TABLET 300 MG PO (21:50)
[2020-11-16] MEDS: bisacodyL 5 MG TABLET.DR PO (21:50)
[2020-11-16] MEDS: Montelukast Sodium 10 MG TABLET PO (21:50)
[2020-11-17 06:30] VITALS: BP 107/58; PULSE 86; RESP 16; TEMP 36.3; O2SAT 95
[2020-11-17 08:26] LABS: Cholesterol 209 mg/dL; HDL Cholesterol 46 mg/dL; LDL Cholesterol Calculated 139 mg/dl; Triglycerides 122 mg/dL
[2020-11-17 08:47] LABS: TSH reflex Free T4 2.08 uIU/mL (0.32-4.0)
[2020-11-17 08:50] VITALS: BP 118/65; PULSE 80
[2020-11-17] MEDS: Omeprazole 20 MG CAPSULE.DR PO (08:50)
[2020-11-17] MEDS: cloZAPine 25 MG TABLET 50 MG PO (08:50)
[2020-11-17] MEDS: clonazePAM 0.5 MG TABLET PO (08:50)
[2020-11-17] MEDS: lisinopriL 10 MG TABLET PO (08:50)
[2020-11-17] MEDS: traMADoL HCL 50 MG TABLET PO ×2 (08:50→13:21)
[2020-11-17] MEDS: Lactulose 20 GM/30 ML SOLUTION 10 GM PO ×2 (08:51→21:00)
[2020-11-17] MEDS: Docusate Sodium 100 MG CAPSULE PO ×2 (08:51→21:00)
[2020-11-17] MEDS: Fluticasone Propionate 250 MCG BLST.W.DEV 2 PUFF INHALE ×2 (08:52→20:49)
[2020-11-17 09:20] LABS: Estimated Average Glucose 123 mg/dL; Hemoglobin A1c % 5.9 %
[2020-11-17] MEDS: Nicotine 21 MG PATCH.TD24 TRANSDERMA (09:27)
--- NOTE | 2020-11-17 15:01 | P.PNPSI_ITS ---
Subjective Subjective Date of Service: 11/17/20 Reason For Visit: Psychosis Subjective Notes: Conditional Voluntary Interim History: Brenna reports sleeping better. However, she continues to endorse CAH telling her to band head on wall. She denies SI/HI. She reports feeling safe in unit and able to not engage in self injurious behavior when having CAH. She agrees to let staff know if not feeling safe. She reports seeing snakes and blood in the wall. She has been mostly in bed, not attending groups. Medication Compliance: Yes Side effects from medications: No Attending Groups: No Review of Systems Constitutional: Reports as per HPI, Reports no additional constitutional complai nts, Reports fatigue, Denies weight gain and Denies weight loss Eyes: Reports as per HPI and Reports no additional eye complaints Reports system reviewed and no additional complaints, except as documented and Reports as per HPI Cardiovascular: Reports as per HPI, Reports no additional cardiovascular complaints, Denies chest pain and Denies dyspnea Respiratory: Reports as per HPI, Reports no additional respiratory complaints, Denies chest congestion, Denies cough and Denies dyspnea Gastrointestinal: Reports as per HPI, Reports no additional gastrointestinal complaints and Reports constipation Musculoskeletal: Denies no additional musculoskeletal complaints and Reports as per HPI Reports system reviewed and no additional complaints, except as documented and Reports as per HPI Psychiatric: Reports no additional psychiatric complaints and Reports as per HPI Endocrine: Reports fatigue Mental Status Exam Mental Status Exam Narrative: Appearance: MO, poor hygiene, in NAD Behavior: somewhat guarded but cooperative Psychomotor: no agitation or retardation noted Speech: clear, normal rate/rhythm/volume, spontaneous TP: tangential TC: AH, feeling freighten but AH Mood: depressed Affect:blunted, fearful SI:passive, no plan or intent HI:none AH/VH:+AH male voices, VH seeing blood. Delusions:some paranoid delusions Insight/judgment:poor x 2. Memory/cog: alert, oriented x 3. impaired secondary to psych symptoms and underlying cognitive impairements. Diagnostics Vital Signs (24Hr): Vital Signs - 24 hr 11/16/20 19:15 11/17/20 06:30 11/17/20 08:50 Temperature 97.3 F 97.4 F Pulse Rate 92 86 80 Respiratory Rate 16 Blood Pressure 103/56 L 107/58 L 118/65 Pulse Oximetry 95 Body Mass Index 35.4 Labs Results: 11/15/20 13:44 Labs: Laboratory Results - last 48 hr 11/16/20 11/17/20 11/17/20 19:28 07:50 07:50 Estimat Average Glucose 123 Hemoglobin A1c % 5.9 Triglycerides 122 Cholesterol 209 LDL Cholesterol, Calc 139 HDL Cholesterol 46 TSH 2.08 Valproic Acid 62.0 Medications Medications Current Medications Generic Name Dose Route Start Last Admin Trade Name Freq PRN Reason Stop Dose Admin Acetaminophen 650 mg 11/15/20 22:17 Acetaminophen 325 Mg Tablet PO Q6H PRN Headache/Pain Mild Scale (1-3) Al Hydroxide/Mg Hydroxide 30 ml 11/15/20 22:17 Magnesium Hydrox/Alum Hydrox 30 Ml Oral.Susp PO Q6H PRN Heartburn/Nausea Albuterol Sulfate 2.5 mg 11/15/20 08:00 11/17/20 13:23 Albuterol Sulfate (0.083%) 2.5 Mg/3 Ml Vial.Neb INHALE Not Given RTID [facility]XMI Albuterol Sulfate 2 puff 11/14/20 20:32 Albuterol Sulfate 90 Mcg 8 Gm Inhaler INHALE Q4H PRN Shortness Of Breath Bisacodyl 5 mg 11/14/20 21:00 11/16/20 21:50 Bisacodyl 5 Mg Tablet.Dr PO 5 mg BEDTIME [facility] Administration Clonazepam 0.5 mg 11/15/20 09:00 11/17/20 08:50 Clonazepam 0.5 Mg Tablet PO 0.5 mg DAILY [facility] Administration Clonazepam 1 mg 11/14/20 21:00 11/16/20 21:49 Clonazepam 1 Mg Tablet PO 1 mg BEDTIME [facility] Administration Clozapine 50 mg 11/15/20 09:00 11/17/20 08:50 Clozapine 25 Mg Tablet PO 50 mg DAILY [facility] Administration Clozapine 300 mg 11/14/20 21:00 11/16/20 21:50 Clozapine 100 Mg Tablet PO 300 mg BEDTIME [facility] Administration Divalproex Sodium 1,500 mg 11/14/20 21:00 11/16/20 21:49 Divalproex Sodium Er 500 Mg Tab.Er.24h PO 1,500 mg BEDTIME [facility] Administration Docusate Sodium 100 mg 11/14/20 21:00 11/17/20 08:51 Docusate Sodium 100 Mg Capsule PO 100 mg BID [facility] Administration Fluticasone Propionate 2 puff 11/15/20 08:00 11/17/20 08:52 Fluticasone Propionate 250 Mcg Blst.W.Dev INHALE 2 puff RBID [facility] Administration Hydroxyzine HCl 25 mg 11/15/20 22:17 Hydroxyzine Hcl 25 Mg Tablet PO BEDTIME PRN Anxiety Hydroxyzine HCl 25 mg 11/17/20 15:00 Hydroxyzine Hcl 25 Mg Tablet PO Q6H PRN Anxiety Lactulose 10 gm 11/16/20 11:45 11/17/20 08:51 Lactulose 20 Gm/30 Ml Solution PO 10 gm BID [facility] Administration Lisinopril 10 mg 11/15/20 09:00 11/17/20 08:50 Lisinopril 10 Mg Tablet PO 10 mg DAILY [facility] Administration Protocol Magnesium Hydroxide 30 ml 11/15/20 22:17 11/16/20 01:23 Milk Of Magnesia 30 Ml Oral.Susp PO 30 ml DAILY PRN Administration Constipation Montelukast Sodium 10 mg 11/14/20 21:00 11/16/20 21:50 Montelukast Sodium 10 Mg Tablet PO 10 mg BEDTIME [facility] Administration Nicotine 21 mg 11/15/20 09:00 11/17/20 09:27 Nicotine 21 Mg Patch.Td24 TRANSDERMA 21 mg DAILY [facility] Administration Omeprazole 20 mg 11/15/20 06:30 11/17/20 08:50 Omeprazole 20 Mg Capsule.Dr PO 20 mg DAILY@0630 [facility] Administration Polyethylene Glycol 17 gm 11/14/20 20:32 Polyethylene Glycol 3350 17 Gm Powd.Pack PO DAILY PRN Constipation Tramadol HCl 50 mg 11/14/20 21:00 11/17/20 13:21 Tramadol Hcl 50 Mg Tablet PO 50 mg QID [facility] Administration Allergies Allergies Allergy/AdvReac Type Severity Reaction Status Date / Time aspirin [Aspirin] Allergy Unknown VOMIT Verified 11/11/20 21:31 diazepam [From Valium] Allergy Unknown UNKNOWN Verified 11/11/20 21:31 haloperidol [From Haldol] Allergy Unknown UNKN Verified 11/11/20 21:31 penicillin V Allergy Unknown Unknown Verified 11/11/20 21:31 Penicillins Allergy Unknown UNKN Verified 11/11/20 21:31 risperidone [From Risperdal] Allergy Unknown UNKNOWN Verified 11/11/20 21:31 trazodone [TRAZODONE] Allergy Unknown NAUSEA & Verified 11/11/20 21:31 VOMITING From Haldol Allergy Unknown UNKN Uncoded 11/11/20 21:31 Assessment & Plan Assessment & Plan (1) Schizophrenia: Status: Acute Code(s): F20.9 - Schizophrenia, unspecified Assessment and Plan: Will obtain collateral information from OP prescriber, Zhao Cardenas and [facility] Lanny. 1. Increase clozaril to 100mg po daily and 300mg po qhs. 2. d/c prozac as may increase psychosis (2) Arthritis: Status: Acute Code(s): M19.90 - Unspecified osteoarthritis, unspecified site (3) COPD (chronic obstructive pulmonary disease): Status: Acute Code(s): J44.9 - Chronic obstructive pulmonary disease, unspecified (4) Hypertension: Status: Acute Code(s): I10 - Essential (primary) hypertension (5) Hyperlipidemia: Status: Acute Code(s): E78.5 - Hyperlipidemia, unspecified Greater than 50% of the session was spent on counseling and/or coordination of care Reason for contiued inpatient stay Substantial Risk for: harm to self and inability to function
[2020-11-17] MEDS: hydrOXYzine HCL 25 MG TABLET PO (15:16)
[2020-11-17 16:45] VITALS: BP 109/66; PULSE 103; RESP 18; TEMP 36; O2SAT 96
[2020-11-17] MEDS: clonazePAM 1 MG TABLET PO (20:59)
[2020-11-17] MEDS: cloZAPine 100 MG TABLET 300 MG PO (20:59)
[2020-11-17] MEDS: bisacodyL 5 MG TABLET.DR PO (21:00)
[2020-11-17] MEDS: Montelukast Sodium 10 MG TABLET PO (21:00)
[2020-11-17] MEDS: Divalproex Sodium ER 500 MG TAB.ER.24H 1500 MG PO (21:00)
[2020-11-17] MEDS: Magnesium Hydrox/Alum Hydrox 30 ML ORAL.SUSP PO (23:26)
[2020-11-18 06:20] VITALS: BP 103/55; PULSE 90; RESP 18; TEMP 36.1; O2SAT 94
[2020-11-18] MEDS: Omeprazole 20 MG CAPSULE.DR PO (06:44)
[2020-11-18] MEDS: Lactulose 20 GM/30 ML SOLUTION 10 GM PO ×2 (09:10→20:18)
[2020-11-18] MEDS: Fluticasone Propionate 250 MCG BLST.W.DEV 2 PUFF INHALE ×2 (09:10→21:12)
[2020-11-18] MEDS: cloZAPine 100 MG TABLET PO (09:10)
[2020-11-18] MEDS: Docusate Sodium 100 MG CAPSULE PO ×2 (09:10→20:17)
[2020-11-18] MEDS: clonazePAM 0.5 MG TABLET PO (09:10)
[2020-11-18 09:11] VITALS: BP 122/63; PULSE 77
[2020-11-18] MEDS: traMADoL HCL 50 MG TABLET PO (09:11)
[2020-11-18] MEDS: lisinopriL 10 MG TABLET PO (09:11)
[2020-11-18] MEDS: Nicotine 21 MG PATCH.TD24 TRANSDERMA (09:13)
[2020-11-18 10:01] VITALS: BMI 35.6
[2020-11-18 18:00] VITALS: BP 114/79; PULSE 105; TEMP 36
--- NOTE | 2020-11-18 20:09 | HO.PSYCHPN ---
Subjective Subjective Date of Service: 11/18/20 Reason For Visit: Psychosis Interim History: Brenna reports hearing less voices today telling her to band her head against the wall. She reports she feels safe in the unit and therefore will not hurt herself. She continues to report feeling overwhelmed by AH. She continues to report seeing snakes and blood on the wall, which states is distressing. She reports she slept better last night but feeling tired during the day. She has been eating well. She spent most of day in bed, minimally interactive with peers or staff. She denies SI/HI. Review of Systems Constitutional: Reports as per HPI, Reports no additional constitutional complaints, Reports fatigue, Denies weight gain and Denies weight loss Eyes: Reports as per HPI and Reports no additional eye complaints Reports system reviewed and no additional complaints, except as documented and Reports as per HPI Cardiovascular: Reports as per HPI, Reports no additional cardiovascular complaints, Denies chest pain and Denies dyspnea Respiratory: Reports as per HPI, Reports no additional respiratory complaints, Denies chest congestion, Denies cough and Denies dyspnea Gastrointestinal: Reports as per HPI, Reports no additional gastrointestinal complaints and Reports constipation Musculoskeletal: Denies no additional musculoskeletal complaints and Reports as per HPI Reports system reviewed and no additional complaints, except as documented and Reports as per HPI Psychiatric: Reports no additional psychiatric complaints and Reports as per HPI Endocrine: Reports fatigue Mental Status Exam Mental Status Exam Narrative: Appearance: MO, poor hygiene, in NAD Behavior: somewhat guarded but cooperative Psychomotor: no agitation or retardation noted Speech: clear, normal rate/rhythm/volume, spontaneous TP: tangential TC: AH, feeling freighten but AH Mood: depressed Affect:blunted, fearful SI:passive, no plan or intent HI:none AH/VH:+AH male voices telling her to band her head on the wall or cut wrist, VH seeing blood/snakes. Delusions:some paranoid delusions Insight/judgment:poor x 2. Memory/cog: alert, oriented x 3. impaired secondary to psych symptoms and underlying cognitive impairments. Diagnostics Vital Signs (24Hr): Vital Signs - 24 hr 11/18/20 06:20 11/18/20 09:11 Temperature 96.9 F Pulse Rate 90 77 Respiratory Rate 18 Blood Pressure 103/55 L 122/63 Pulse Oximetry 94 Body Mass Index 35.6 Labs Results: 11/15/20 13:44 Labs: Laboratory Results - last 48 hr 11/17/20 11/17/20 07:50 07:50 Estimat Average Glucose 123 Hemoglobin A1c % 5.9 Triglycerides 122 Cholesterol 209 LDL Cholesterol, Calc 139 HDL Cholesterol 46 TSH 2.08 Medications Medications Current Medications Generic Name Dose Route Start Last Admin Trade Name Freq PRN Reason Stop Dose Admin Acetaminophen 650 mg 11/15/20 22:17 Acetaminophen 325 Mg Tablet PO Q6H PRN Headache/Pain Mild Scale (1-3) Al Hydroxide/Mg Hydroxide 30 ml 11/15/20 22:17 11/17/20 23:26 Magnesium Hydrox/Alum Hydrox 30 Ml Oral.Susp PO 30 ml Q6H PRN Administration Heartburn/Nausea Albuterol Sulfate 2.5 mg 11/15/20 08:00 11/18/20 14:16 Albuterol Sulfate (0.083%) 2.5 Mg/3 Ml Vial.Neb INHALE Not Given RTID LAXMI Albuterol Sulfate 2 puff 11/14/20 20:32 Albuterol Sulfate 90 Mcg 8 Gm Inhaler INHALE Q4H PRN Shortness Of Breath Bisacodyl 5 mg 11/14/20 21:00 11/17/20 21:00 Bisacodyl 5 Mg Tablet.Dr PO 5 mg BEDTIME LAXMI Administration Clonazepam 0.5 mg 11/15/20 09:00 11/18/20 09:10 Clonazepam 0.5 Mg Tablet PO 0.5 mg DAILY LAXMI Administration Clonazepam 1 mg 11/14/20 21:00 11/17/20 20:59 Clonazepam 1 Mg Tablet PO 1 mg BEDTIME LAXMI Administration Clozapine 300 mg 11/14/20 21:00 11/17/20 20:59 Clozapine 100 Mg Tablet PO 300 mg BEDTIME LAXMI Administration Clozapine 100 mg 11/18/20 09:00 11/18/20 09:10 Clozapine 100 Mg Tablet PO 100 mg DAILY LAXMI Administration Divalproex Sodium 1,500 mg 11/14/20 21:00 11/17/20 21:00 Divalproex Sodium Er 500 Mg Tab.Er.24h PO 1,500 mg BEDTIME LAXMI Administration Docusate Sodium 100 mg 11/14/20 21:00 11/18/20 09:10 Docusate Sodium 100 Mg Capsule PO 100 mg BID LAXMI Administration Fluticasone Propionate 2 puff 11/15/20 08:00 11/18/20 09:10 Fluticasone Propionate 250 Mcg Blst.W.Dev INHALE 2 puff RBID LAXMI Administration Hydroxyzine HCl 25 mg 11/17/20 15:00 11/17/20 15:16 Hydroxyzine Hcl 25 Mg Tablet PO 25 mg Q6H PRN Administration Anxiety Lactulose 10 gm 11/16/20 11:45 11/18/20 09:10 Lactulose 20 Gm/30 Ml Solution PO 10 gm BID LAXMI Administration Lisinopril 10 mg 11/15/20 09:00 11/18/20 09:11 Lisinopril 10 Mg Tablet PO 10 mg DAILY LAXMI Administration Protocol Magnesium Hydroxide 30 ml 11/15/20 22:17 11/16/20 01:23 Milk Of Magnesia 30 Ml Oral.Susp PO 30 ml DAILY PRN Administration Constipation Montelukast Sodium 10 mg 11/14/20 21:00 11/17/20 21:00 Montelukast Sodium 10 Mg Tablet PO 10 mg BEDTIME LAXMI Administration Nicotine 21 mg 11/15/20 09:00 11/18/20 09:13 Nicotine 21 Mg Patch.Td24 TRANSDERMA 21 mg DAILY LAXMI Administration Omeprazole 20 mg 11/15/20 06:30 11/18/20 06:44 Omeprazole 20 Mg Capsule.Dr PO 20 mg DAILY@0630 LAXMI Administration Polyethylene Glycol 17 gm 11/14/20 20:32 Polyethylene Glycol 3350 17 Gm Powd.Pack PO DAILY PRN Constipation Tramadol HCl 50 mg 11/17/20 15:19 11/18/20 09:11 Tramadol Hcl 50 Mg Tablet PO 50 mg QID PRN Administration pain Allergies Allergies Allergy/AdvReac Type Severity Reaction Status Date / Time aspirin [Aspirin] Allergy Unknown VOMIT Verified 11/11/20 21:31 diazepam [From Valium] Allergy Unknown UNKNOWN Verified 11/11/20 21:31 haloperidol [From Haldol] Allergy Unknown UNKN Verified 11/11/20 21:31 penicillin V Allergy Unknown Unknown Verified 11/11/20 21:31 Penicillins Allergy Unknown UNKN Verified 11/11/20 21:31 risperidone [From Risperdal] Allergy Unknown UNKNOWN Verified 11/11/20 21:31 trazodone [TRAZODONE] Allergy Unknown NAUSEA & Verified 11/11/20 21:31 VOMITING From Haldol Allergy Unknown UNKN Uncoded 11/11/20 21:31 Assessment & Plan Assessment & Plan (1) Schizophrenia: Status: Acute Code(s): F20.9 - Schizophrenia, unspecified Assessment and Plan: Will obtain collateral information from OP prescriber, Zhao Cardenas and [facility]. 1. Increase clozaril to 100mg po daily and 300mg po qhs. 2. d/c prozac as may increase psychosis (2) Arthritis: Status: Acute Code(s): M19.90 - Unspecified osteoarthritis, unspecified site (3) COPD (chronic obstructive pulmonary disease): Status: Acute Code(s): J44.9 - Chronic obstructive pulmonary disease, unspecified (4) Hypertension: Status: Acute Code(s): I10 - Essential (primary) hypertension (5) Hyperlipidemia: Status: Acute Code(s): E78.5 - Hyperlipidemia, unspecified Greater than 50% of the session was spent on counseling and/or coordination of care Reason for contiued inpatient stay Substantial Risk for: inability to function
[2020-11-18] MEDS: hydrOXYzine HCL 25 MG TABLET PO (20:16)
[2020-11-18] MEDS: Montelukast Sodium 10 MG TABLET PO (20:17)
[2020-11-18] MEDS: cloZAPine 100 MG TABLET 300 MG PO (20:17)
[2020-11-18] MEDS: clonazePAM 1 MG TABLET PO (20:17)
[2020-11-18] MEDS: bisacodyL 5 MG TABLET.DR PO (20:17)
[2020-11-18] MEDS: Divalproex Sodium ER 500 MG TAB.ER.24H 1500 MG PO (20:18)
[2020-11-19 06:00] VITALS: BP 127/69; PULSE 91; TEMP 35.7
[2020-11-19] MEDS: Omeprazole 20 MG CAPSULE.DR PO (06:47)
[2020-11-19 08:53] VITALS: BP 123/81; PULSE 101
[2020-11-19] MEDS: lisinopriL 10 MG TABLET PO (08:53)
[2020-11-19] MEDS: clonazePAM 0.5 MG TABLET PO (08:53)
[2020-11-19] MEDS: cloZAPine 100 MG TABLET PO (08:53)
[2020-11-19] MEDS: Docusate Sodium 100 MG CAPSULE PO ×2 (08:53→21:33)
[2020-11-19] MEDS: Fluticasone Propionate 250 MCG BLST.W.DEV 2 PUFF INHALE ×2 (08:54→21:39)
[2020-11-19] MEDS: Lactulose 20 GM/30 ML SOLUTION 10 GM PO ×2 (08:54→21:34)
[2020-11-19] MEDS: Nicotine 21 MG PATCH.TD24 TRANSDERMA (08:54)
[2020-11-19 12:09] VITALS: O2SAT 97
[2020-11-19 16:30] VITALS: BP 125/60; PULSE 100; TEMP 36.7
--- NOTE | 2020-11-19 17:22 | P.PNPSI_ITS ---
Subjective Subjective Date of Service: 11/19/20 Reason For Visit: Psychosis Interim History: Brenna appears brighter today. She reports hearing less CAH today. She reports she slept better. She denies SI/HI. She has been more visible in the unit. Social with select peers. She reports feeling safe here. Review of Systems Constitutional: Reports as per HPI, Reports no additional constitutional complaints, Reports fatigue, Denies weight gain and Denies weight loss Eyes: Reports as per HPI and Reports no additional eye complaints Reports system reviewed and no additional complaints, except as documented and Reports as per HPI Cardiovascular: Reports as per HPI, Reports no additional cardiovascular complaints, Denies chest pain and Denies dyspnea Respiratory: Reports as per HPI, Reports no additional respiratory complaints, Denies chest congestion, Denies cough and Denies dyspnea Gastrointestinal: Reports as per HPI, Reports no additional gastrointestinal complaints and Reports constipation Musculoskeletal: Denies no additional musculoskeletal complaints and Reports as per HPI Reports system reviewed and no additional complaints, except as documented and Reports as per HPI Psychiatric: Reports no additional psychiatric complaints and Reports as per HPI Endocrine: Reports fatigue Mental Status Exam Mental Status Exam Narrative: Appearance: MO, poor hygiene, in NAD Behavior: somewhat guarded but cooperative Psychomotor: no agitation or retardation noted Speech: clear, normal rate/rhythm/volume, spontaneous TP: tangential TC: AH, feeling freighted but AH Mood: better Affect:blunted, less fearful SI:passive, no plan or intent HI:none AH/VH:+AH male voices telling her to band her head on the wall or cut wrist, VH seeing blood/snakes. Delusions:some paranoid delusions Insight/judgment:poor x 2. Memory/cog: alert, oriented x 3. impaired secondary to psych symptoms and underlying cognitive impairments. Diagnostics Vital Signs (24Hr): Vital Signs - 24 hr 11/18/20 18:00 11/19/20 06:00 11/19/20 08:53 Temperature 96.8 F 96.3 F L Pulse Rate 105 H 91 101 H Blood Pressure 114/79 127/69 123/81 Pulse Oximetry 11/19/20 12:09 Temperature Pulse Rate Blood Pressure Pulse Oximetry 97 Body Mass Index 35.6 Labs Results: 11/15/20 13:44 Medications Medications Current Medications Generic Name Dose Route Start Last Admin Trade Name Julioq PRN Reason Stop Dose Admin Acetaminophen 650 mg 11/15/20 22:17 Acetaminophen 325 Mg Tablet PO Q6H PRN Headache/Pain Mild Scale (1-3) Al Hydroxide/Mg Hydroxide 30 ml 11/15/20 22:17 11/17/20 23:26 Magnesium Hydrox/Alum Hydrox 30 Ml Oral.Susp PO 30 ml Q6H PRN Administration Heartburn/Nausea Albuterol Sulfate 2 puff 11/14/20 20:32 Albuterol Sulfate 90 Mcg 8 Gm Inhaler INHALE Q4H PRN Shortness Of Breath Bisacodyl 5 mg 11/14/20 21:00 11/18/20 20:17 Bisacodyl 5 Mg Tablet. PO 5 mg BEDTIME LAXMI Administration Clonazepam 0.5 mg 11/15/20 09:00 11/19/20 08:53 Clonazepam 0.5 Mg Tablet PO 0.5 mg DAILY LAXMI Administration Clonazepam 1 mg 11/14/20 21:00 11/18/20 20:17 Clonazepam 1 Mg Tablet PO 1 mg BEDTIME LAXMI Administration Clozapine 300 mg 11/14/20 21:00 11/18/20 20:17 Clozapine 100 Mg Tablet PO 300 mg BEDTIME LAXMI Administration Clozapine 100 mg 11/18/20 09:00 11/19/20 08:53 Clozapine 100 Mg Tablet PO 100 mg DAILY LAXMI Administration Divalproex Sodium 1,000 mg 11/19/20 21:00 Divalproex Sodium Er 500 Mg Tab.Er.24h PO BEDTIME LAXMI Docusate Sodium 100 mg 11/14/20 21:00 11/19/20 08:53 Docusate Sodium 100 Mg Capsule PO 100 mg BID LAXMI Administration Fluticasone Propionate 2 puff 11/15/20 08:00 11/19/20 08:54 Fluticasone Propionate 250 Mcg Blst.W.Dev INHALE 2 puff RBID LAXMI Administration Hydroxyzine HCl 25 mg 11/17/20 15:00 11/18/20 20:16 Hydroxyzine Hcl 25 Mg Tablet PO 25 mg Q6H PRN Administration Anxiety Lactulose 10 gm 11/16/20 11:45 11/19/20 08:54 Lactulose 20 Gm/30 Ml Solution PO 10 gm BID LAXMI Administration Lisinopril 10 mg 11/15/20 09:00 11/19/20 08:53 Lisinopril 10 Mg Tablet PO 10 mg DAILY LAXMI Administration Protocol Magnesium Hydroxide 30 ml 11/15/20 22:17 11/16/20 01:23 Milk Of Magnesia 30 Ml Oral.Susp PO 30 ml DAILY PRN Administration Constipation Montelukast Sodium 10 mg 11/14/20 21:00 11/18/20 20:17 Montelukast Sodium 10 Mg Tablet PO 10 mg BEDTIME LAXMI Administration Nicotine 21 mg 11/15/20 09:00 11/19/20 08:54 Nicotine 21 Mg Patch.Td24 TRANSDERMA 21 mg DAILY LAXMI Administration Omeprazole 20 mg 11/15/20 06:30 11/19/20 06:47 Omeprazole 20 Mg Capsule.Dr PO 20 mg DAILY@0630 LAXMI Administration Polyethylene Glycol 17 gm 11/14/20 20:32 Polyethylene Glycol 3350 17 Gm Powd.Pack PO DAILY PRN Constipation Tramadol HCl 50 mg 11/19/20 10:37 Tramadol Hcl 50 Mg Tablet PO Q8H PRN pain Allergies Allergies Allergy/AdvReac Type Severity Reaction Status Date / Time aspirin [Aspirin] Allergy Unknown VOMIT Verified 11/11/20 21:31 diazepam [From Valium] Allergy Unknown UNKNOWN Verified 11/11/20 21:31 haloperidol [From Haldol] Allergy Unknown UNKN Verified 11/11/20 21:31 penicillin V Allergy Unknown Unknown Verified 11/11/20 21:31 Penicillins Allergy Unknown UNKN Verified 11/11/20 21:31 risperidone [From Risperdal] Allergy Unknown UNKNOWN Verified 11/11/20 21:31 trazodone [TRAZODONE] Allergy Unknown NAUSEA & Verified 11/11/20 21:31 VOMITING From Haldol Allergy Unknown UNKN Uncoded 11/11/20 21:31 Assessment & Plan Assessment & Plan (1) Schizophrenia: Status: Acute Code(s): F20.9 - Schizophrenia, unspecified Assessment and Plan: Will obtain collateral information from OP prescriber, Zhao Cardenas and [facility]. 1. continue clozaril to 100mg po daily and 300mg po qhs. 2. d/c prozac as may increase psychosis (2) Arthritis: Status: Acute Code(s): M19.90 - Unspecified osteoarthritis, unspecified site (3) COPD (chronic obstructive pulmonary disease): Status: Acute Code(s): J44.9 - Chronic obstructive pulmonary disease, unspecified (4) Hypertension: Status: Acute Code(s): I10 - Essential (primary) hypertension (5) Hyperlipidemia: Status: Acute Code(s): E78.5 - Hyperlipidemia, unspecified Greater than 50% of the session was spent on counseling and/or coordination of care Reason for contiued inpatient stay Substantial Risk for: harm to self
[2020-11-19 18:18] LABS: Valproate 70.7 mcg/mL (50.0-100.0)
[2020-11-19 19:15] VITALS: BP 117/64; PULSE 112
[2020-11-19] MEDS: Divalproex Sodium ER 500 MG TAB.ER.24H 1000 MG PO (21:32)
[2020-11-19] MEDS: bisacodyL 5 MG TABLET.DR PO (21:32)
[2020-11-19] MEDS: cloZAPine 100 MG TABLET 300 MG PO (21:32)
[2020-11-19] MEDS: traMADoL HCL 50 MG TABLET PO (21:33)
[2020-11-19] MEDS: Montelukast Sodium 10 MG TABLET PO (21:33)
[2020-11-19] MEDS: clonazePAM 1 MG TABLET PO (21:33)
[2020-11-19] MEDS: polyethylene glycoL 3350 17 GM POWD.PACK PO (21:39)
[2020-11-20 06:30] VITALS: BP 82/50; PULSE 88; RESP 18; TEMP 36.6; O2SAT 98
[2020-11-20] MEDS: Omeprazole 20 MG CAPSULE.DR PO (06:53)
[2020-11-20 08:58] VITALS: BP 107/63; PULSE 72
[2020-11-20] MEDS: Lactulose 20 GM/30 ML SOLUTION 10 GM PO ×2 (08:58→22:01)
[2020-11-20] MEDS: Docusate Sodium 100 MG CAPSULE PO ×2 (08:58→21:59)
[2020-11-20] MEDS: lisinopriL 10 MG TABLET PO (08:58)
[2020-11-20] MEDS: cloZAPine 100 MG TABLET PO (08:58)
[2020-11-20] MEDS: clonazePAM 0.5 MG TABLET PO (08:58)
[2020-11-20] MEDS: Fluticasone Propionate 250 MCG BLST.W.DEV 2 PUFF INHALE ×2 (08:58→22:02)
[2020-11-20] MEDS: Nicotine 21 MG PATCH.TD24 TRANSDERMA (09:01)
[2020-11-20 17:00] VITALS: BP 145/77; PULSE 115; TEMP 36.3
[2020-11-20] MEDS: hydrOXYzine HCL 25 MG TABLET PO (20:53)
--- NOTE | 2020-11-20 21:03 | HO.PSYCHPN ---
Subjective Subjective Date of Service: 11/20/20 Reason For Visit: Psychosis Subjective Notes: Conditional Voluntary Interim History: Brenna reports that she is feeling somewhat better. She was keeping to herself and spent much of the day in bed Medication Compliance: Yes Side effects from medications: No Attending Groups: No Review of Systems Acute medical concerns: No Medical Review of Systems: unchanged Review of Systems Review of Systems Yes all other systems are reviewed and are negative Mental Status Exam Mental Status Exam Patient Appearance: Disheveled Level of Consciousness: Drowsy Mood Description: Apathetic Affect Description: Apathetic Ability to Follow Directions: Fair Speech Pattern: Appropriate Memory Description: Intact Hallucinations: None Delusions: Paranoid Ideation and Present Thought Process: Goal Oriented Thought Content: positive for Circumstantial, positive for Perseveration, negative for Suicidal Ideation and negative for Homicidal Ideation Judgement: Poor Diagnostics Vital Signs (24Hr): Vital Signs - 24 hr 11/20/20 06:30 11/20/20 08:58 Temperature 97.8 F Pulse Rate 88 72 Respiratory Rate 18 Blood Pressure 82/50 L 107/63 Pulse Oximetry 98 Body Mass Index 35.6 Labs Results: 11/15/20 13:44 Labs: Laboratory Results - last 48 hr 11/19/20 17:26 Valproic Acid 70.7 Medications Medications Current Medications Generic Name Dose Route Start Last Admin Trade Name Freq PRN Reason Stop Dose Admin Acetaminophen 650 mg 11/15/20 22:17 Acetaminophen 325 Mg Tablet PO Q6H PRN Headache/Pain Mild Scale (1-3) Al Hydroxide/Mg Hydroxide 30 ml 11/15/20 22:17 11/17/20 23:26 Magnesium Hydrox/Alum Hydrox 30 Ml Oral.Susp PO 30 ml Q6H PRN Administration Heartburn/Nausea Albuterol Sulfate 2 puff 11/14/20 20:32 Albuterol Sulfate 90 Mcg 8 Gm Inhaler INHALE Q4H PRN Shortness Of Breath Bisacodyl 5 mg 11/14/20 21:00 11/19/20 21:32 Bisacodyl 5 Mg Tablet.Dr PO 5 mg BEDTIME LAXMI Administration Clonazepam 0.5 mg 11/15/20 09:00 11/20/20 08:58 Clonazepam 0.5 Mg Tablet PO 0.5 mg DAILY LAXMI Administration Clonazepam 1 mg 11/14/20 21:00 11/19/20 21:33 Clonazepam 1 Mg Tablet PO 1 mg BEDTIME LAXMI Administration Clozapine 300 mg 11/14/20 21:00 11/19/20 21:32 Clozapine 100 Mg Tablet PO 300 mg BEDTIME LAXMI Administration Clozapine 100 mg 11/18/20 09:00 11/20/20 08:58 Clozapine 100 Mg Tablet PO 100 mg DAILY LAXMI Administration Divalproex Sodium 1,000 mg 11/19/20 21:00 11/19/20 21:32 Divalproex Sodium Er 500 Mg Tab.Er.24h PO 1,000 mg BEDTIME LAXMI Administration Docusate Sodium 100 mg 11/14/20 21:00 11/20/20 08:58 Docusate Sodium 100 Mg Capsule PO 100 mg BID LAXMI Administration Fluticasone Propionate 2 puff 11/15/20 08:00 11/20/20 08:58 Fluticasone Propionate 250 Mcg Blst.W.Dev INHALE 2 puff RBID LAXMI Administration Hydroxyzine HCl 25 mg 11/17/20 15:00 11/20/20 20:53 Hydroxyzine Hcl 25 Mg Tablet PO 25 mg Q6H PRN Administration Anxiety Lactulose 10 gm 11/16/20 11:45 11/20/20 08:58 Lactulose 20 Gm/30 Ml Solution PO 10 gm BID LAXMI Administration Lisinopril 10 mg 11/15/20 09:00 11/20/20 08:58 Lisinopril 10 Mg Tablet PO 10 mg DAILY LAXMI Administration Protocol Magnesium Hydroxide 30 ml 11/15/20 22:17 11/16/20 01:23 Milk Of Magnesia 30 Ml Oral.Susp PO 30 ml DAILY PRN Administration Constipation Montelukast Sodium 10 mg 11/14/20 21:00 11/19/20 21:33 Montelukast Sodium 10 Mg Tablet PO 10 mg BEDTIME LAXMI Administration Nicotine 21 mg 11/15/20 09:00 11/20/20 09:01 Nicotine 21 Mg Patch.Td24 TRANSDERMA 21 mg DAILY LAXMI Administration Omeprazole 20 mg 11/15/20 06:30 11/20/20 06:53 Omeprazole 20 Mg Capsule.Dr PO 20 mg DAILY@0630 LAXMI Administration Polyethylene Glycol 17 gm 11/14/20 20:32 11/19/20 21:39 Polyethylene Glycol 3350 17 Gm Powd.Pack PO 17 gm DAILY PRN Administration Constipation Tramadol HCl 50 mg 11/19/20 10:37 11/19/20 21:33 Tramadol Hcl 50 Mg Tablet PO 50 mg Q8H PRN Administration pain Allergies Allergies Allergy/AdvReac Type Severity Reaction Status Date / Time aspirin [Aspirin] Allergy Unknown VOMIT Verified 11/11/20 21:31 diazepam [From Valium] Allergy Unknown UNKNOWN Verified 11/11/20 21:31 haloperidol [From Haldol] Allergy Unknown UNKN Verified 11/11/20 21:31 penicillin V Allergy Unknown Unknown Verified 11/11/20 21:31 Penicillins Allergy Unknown UNKN Verified 11/11/20 21:31 risperidone [From Risperdal] Allergy Unknown UNKNOWN Verified 11/11/20 21:31 trazodone [TRAZODONE] Allergy Unknown NAUSEA & Verified 11/11/20 21:31 VOMITING From Haldol Allergy Unknown UNKN Uncoded 11/11/20 21:31 Assessment & Plan Assessment & Plan (1) Chronic mental illness: Status: Acute Code(s): F99 - Mental disorder, not otherwise specified Assessment and Plan: CT current treatment plan Greater than 50% of the session was spent on counseling and/or coordination of care Patient educated on: diagnosis and medication risk/benefits Informed Consent: does not understand Reason for contiued inpatient stay Substantial Risk for: inability to function and rapid decompensation
[2020-11-20] MEDS: Divalproex Sodium ER 500 MG TAB.ER.24H 1000 MG PO (21:59)
[2020-11-20] MEDS: cloZAPine 100 MG TABLET 300 MG PO (21:59)
[2020-11-20] MEDS: Montelukast Sodium 10 MG TABLET PO (21:59)
[2020-11-20] MEDS: clonazePAM 1 MG TABLET PO (22:00)
[2020-11-20] MEDS: bisacodyL 5 MG TABLET.DR PO (22:00)
[2020-11-20] MEDS: traMADoL HCL 50 MG TABLET PO (22:03)
[2020-11-21 03:16] LABS: Norclozapine 261 mcg/L (25-400)
[2020-11-21 06:40] VITALS: BP 97/48; PULSE 95; RESP 18; TEMP 36.1; O2SAT 95
[2020-11-21] MEDS: Omeprazole 20 MG CAPSULE.DR PO (06:44)
[2020-11-21 07:06] LABS: Clozapine (Clozaril) 1042
[2020-11-21 09:00] VITALS: BP 111/62; PULSE 74
[2020-11-21] MEDS: Lactulose 20 GM/30 ML SOLUTION 10 GM PO ×2 (09:00→21:58)
[2020-11-21] MEDS: lisinopriL 10 MG TABLET PO (09:00)
[2020-11-21] MEDS: clonazePAM 0.5 MG TABLET PO (09:01)
[2020-11-21] MEDS: Fluticasone Propionate 250 MCG BLST.W.DEV 2 PUFF INHALE ×3 (09:01→21:58)
[2020-11-21] MEDS: cloZAPine 100 MG TABLET PO (09:01)
[2020-11-21] MEDS: Docusate Sodium 100 MG CAPSULE PO ×2 (09:01→22:00)
[2020-11-21] MEDS: Nicotine 21 MG PATCH.TD24 TRANSDERMA (09:05)
[2020-11-21 16:35] VITALS: BP 91/51; PULSE 114; TEMP 36.6
[2020-11-21] MEDS: Acetaminophen 325 MG TABLET 650 MG PO (16:42)
[2020-11-21] MEDS: hydrOXYzine HCL 25 MG TABLET PO (16:42)
[2020-11-21] MEDS: polyethylene glycoL 3350 17 GM POWD.PACK PO (16:45)
--- NOTE | 2020-11-21 17:35 | HO.PSYCHPN ---
Subjective Subjective Date of Service: 11/21/20 Reason For Visit: Psychosis Subjective Notes: Conditional Voluntary Interim History: Brenna reports that she is feeling somewhat better. She was keeping to herself and spent much of the day in bed She complained of constipation and that Fleets enema can help her with that. Medication Compliance: Yes Side effects from medications: No Attending Groups: No Review of Systems Acute medical concerns: No Medical Review of Systems: unchanged Review of Systems Review of Systems Yes all other systems are reviewed and are negative Constitutional: Reports as per HPI, Reports no additional constitutional complaints, Reports fatigue, Denies weight gain and Denies weight loss Eyes: Reports as per HPI and Reports no additional eye complaints Reports system reviewed and no additional complaints, except as documented and Reports as per HPI Cardiovascular: Reports as per HPI, Reports no additional cardiovascular complaints, Denies chest pain and Denies dyspnea Respiratory: Reports as per HPI, Reports no additional respiratory complaints, Denies chest congestion, Denies cough and Denies dyspnea Gastrointestinal: Reports as per HPI, Reports no additional gastrointestinal complaints and Reports constipation Musculoskeletal: Denies no additional musculoskeletal complaints and Reports as per HPI Reports system reviewed and no additional complaints, except as documented and Reports as per HPI Psychiatric: Reports no additional psychiatric complaints and Reports as per HPI Endocrine: Reports fatigue Mental Status Exam Mental Status Exam Patient Appearance: Disheveled Level of Consciousness: Drowsy Patient Behavior: Appropriate Mood Description: Apathetic Affect Description: Apathetic Ability to Follow Directions: Fair Speech Pattern: Appropriate Memory Description: Intact Hallucinations: Auditory Delusions: Present Thought Content: positive for Circumstantial Judgement: Fair Diagnostics Vital Signs (24Hr): Vital Signs - 24 hr 11/21/20 06:40 11/21/20 09:00 Temperature 97.0 F Pulse Rate 95 74 Respiratory Rate 18 Blood Pressure 97/48 L 111/62 Pulse Oximetry 95 Body Mass Index 35.6 Labs Results: 11/15/20 13:44 Labs: Laboratory Results - last 48 hr 11/17/20 11/19/20 07:50 17:26 Valproic Acid 70.7 Clozapine 1042 Norclozapine 261 Medications Medications Current Medications Generic Name Dose Route Start Last Admin Trade Name Freq PRN Reason Stop Dose Admin Acetaminophen 650 mg 11/15/20 22:17 Acetaminophen 325 Mg Tablet PO Q6H PRN Headache/Pain Mild Scale (1-3) Al Hydroxide/Mg Hydroxide 30 ml 11/15/20 22:17 11/17/20 23:26 Magnesium Hydrox/Alum Hydrox 30 Ml Oral.Susp PO 30 ml Q6H PRN Administration Heartburn/Nausea Albuterol Sulfate 2 puff 11/14/20 20:32 Albuterol Sulfate 90 Mcg 8 Gm Inhaler INHALE Q4H PRN Shortness Of Breath Bisacodyl 5 mg 11/14/20 21:00 11/20/20 22:00 Bisacodyl 5 Mg Tablet.Dr PO 5 mg BEDTIME LAXMI Administration Clonazepam 0.5 mg 11/15/20 09:00 11/21/20 09:01 Clonazepam 0.5 Mg Tablet PO 0.5 mg DAILY LAXMI Administration Clonazepam 1 mg 11/14/20 21:00 11/20/20 22:00 Clonazepam 1 Mg Tablet PO 1 mg BEDTIME LAXMI Administration Clozapine 300 mg 11/14/20 21:00 11/20/20 21:59 Clozapine 100 Mg Tablet PO 300 mg BEDTIME LAXMI Administration Clozapine 100 mg 11/18/20 09:00 11/21/20 09:01 Clozapine 100 Mg Tablet PO 100 mg DAILY LAXMI Administration Divalproex Sodium 1,000 mg 11/19/20 21:00 11/20/20 21:59 Divalproex Sodium Er 500 Mg Tab.Er.24h PO 1,000 mg BEDTIME LAXMI Administration Docusate Sodium 100 mg 11/14/20 21:00 11/21/20 09:01 Docusate Sodium 100 Mg Capsule PO 100 mg BID LAXMI Administration Fluticasone Propionate 2 puff 11/15/20 08:00 11/21/20 09:01 Fluticasone Propionate 250 Mcg Blst.W.Dev INHALE 2 puff RBID LAXMI Administration Hydroxyzine HCl 25 mg 11/17/20 15:00 11/20/20 20:53 Hydroxyzine Hcl 25 Mg Tablet PO 25 mg Q6H PRN Administration Anxiety Lactulose 10 gm 11/16/20 11:45 11/21/20 09:00 Lactulose 20 Gm/30 Ml Solution PO 10 gm BID LAXMI Administration Lisinopril 10 mg 11/15/20 09:00 11/21/20 09:00 Lisinopril 10 Mg Tablet PO 10 mg DAILY LAXMI Administration Protocol Magnesium Hydroxide 30 ml 11/15/20 22:17 11/16/20 01:23 Milk Of Magnesia 30 Ml Oral.Susp PO 30 ml DAILY PRN Administration Constipation Montelukast Sodium 10 mg 11/14/20 21:00 11/20/20 21:59 Montelukast Sodium 10 Mg Tablet PO 10 mg BEDTIME LAXMI Administration Nicotine 21 mg 11/15/20 09:00 11/21/20 09:05 Nicotine 21 Mg Patch.Td24 TRANSDERMA 21 mg DAILY LAXMI Administration Omeprazole 20 mg 11/15/20 06:30 11/21/20 06:44 Omeprazole 20 Mg Capsule.Dr PO 20 mg DAILY@0630 LAMXI Administration Polyethylene Glycol 17 gm 11/14/20 20:32 11/19/20 21:39 Polyethylene Glycol 3350 17 Gm Powd.Pack PO 17 gm DAILY PRN Administration Constipation Tramadol HCl 50 mg 11/19/20 10:37 11/20/20 22:03 Tramadol Hcl 50 Mg Tablet PO 50 mg Q8H PRN Administration pain Allergies Allergies Allergy/AdvReac Type Severity Reaction Status Date / Time aspirin [Aspirin] Allergy Unknown VOMIT Verified 11/11/20 21:31 diazepam [From Valium] Allergy Unknown UNKNOWN Verified 11/11/20 21:31 haloperidol [From Haldol] Allergy Unknown UNKN Verified 11/11/20 21:31 penicillin V Allergy Unknown Unknown Verified 11/11/20 21:31 Penicillins Allergy Unknown UNKN Verified 11/11/20 21:31 risperidone [From Risperdal] Allergy Unknown UNKNOWN Verified 11/11/20 21:31 trazodone [TRAZODONE] Allergy Unknown NAUSEA & Verified 11/11/20 21:31 VOMITING From Haldol Allergy Unknown UNKN Uncoded 11/11/20 21:31 Assessment & Plan Assessment & Plan (1) Chronic mental illness: Status: Acute Code(s): F99 - Mental disorder, not otherwise specified Assessment and Plan: CT current treatment plan Fleets enema Greater than 50% of the session was spent on counseling and/or coordination of care Patient educated on: diagnosis and medication risk/benefits Informed Consent: further education needed Reason for contiued inpatient stay Substantial Risk for: rapid decompensation
[2020-11-21] MEDS: Sodium Phosphate,Mono-Dibasic 133 ML ENEMA PR (20:55)
[2020-11-21] MEDS: Divalproex Sodium ER 500 MG TAB.ER.24H 1000 MG PO (21:59)
[2020-11-21] MEDS: cloZAPine 100 MG TABLET 300 MG PO (21:59)
[2020-11-21] MEDS: Montelukast Sodium 10 MG TABLET PO (22:00)
[2020-11-21] MEDS: clonazePAM 1 MG TABLET PO (22:00)
[2020-11-21] MEDS: bisacodyL 5 MG TABLET.DR PO (22:00)
[2020-11-21] MEDS: traMADoL HCL 50 MG TABLET PO (22:01)
[2020-11-22] MEDS: Omeprazole 20 MG CAPSULE.DR PO (06:07)
[2020-11-22 06:25] VITALS: BP 99/52; PULSE 93; RESP 18; TEMP 35.9; O2SAT 95
[2020-11-22] MEDS: Nicotine 21 MG PATCH.TD24 TRANSDERMA (09:24)
[2020-11-22] MEDS: Lactulose 20 GM/30 ML SOLUTION 10 GM PO ×2 (09:24→22:13)
[2020-11-22 09:25] VITALS: BP 134/73; PULSE 103
[2020-11-22] MEDS: Docusate Sodium 100 MG CAPSULE PO ×2 (09:25→22:13)
[2020-11-22] MEDS: clonazePAM 0.5 MG TABLET PO (09:25)
[2020-11-22] MEDS: lisinopriL 10 MG TABLET PO (09:25)
[2020-11-22] MEDS: cloZAPine 100 MG TABLET PO (09:25)
[2020-11-22] MEDS: hydrOXYzine HCL 25 MG TABLET PO (14:25)
--- NOTE | 2020-11-22 15:37 | HO.PSYCHPN ---
Subjective Subjective Date of Service: 11/22/20 Reason For Visit: Psychosis Subjective Notes: Conditional Voluntary Interim History: Pt mostly in bed again today. She reports slightly less CAH of male voices telling her to hurt herself. She continues to report seeing blood and snakes, mostly at night. She reports she had BM yesterday. She denies abdominal pain. She reports passive SI but denies any plan or intent. Medication Compliance: Yes Side effects from medications: Yes (constipation) Attending Groups: Intermittent Review of Systems Review of Systems Yes all other systems are reviewed and are negative Constitutional: Reports as per HPI, Reports no additional constitutional complaints, Reports fatigue, Denies weight gain and Denies weight loss Eyes: Reports as per HPI and Reports no additional eye complaints Reports system reviewed and no additional complaints, except as documented and Reports as per HPI Cardiovascular: Reports as per HPI, Reports no additional cardiovascular complaints, Denies chest pain and Denies dyspnea Respiratory: Reports as per HPI, Reports no additional respiratory complaints, Denies chest congestion, Denies cough and Denies dyspnea Gastrointestinal: Reports as per HPI, Reports no additional gastrointestinal complaints and Reports constipation Musculoskeletal: Denies no additional musculoskeletal complaints and Reports as per HPI Reports system reviewed and no additional complaints, except as documented and Reports as per HPI Psychiatric: Reports no additional psychiatric complaints and Reports as per HPI Endocrine: Reports fatigue Mental Status Exam Mental Status Exam Narrative: Appearance: MO, poor hygiene, in NAD Behavior: somewhat guarded but cooperative Psychomotor: no agitation or retardation noted Speech: clear, normal rate/rhythm/volume, spontaneous TP: tangential TC: AH, feeling freighted but AH Mood: better Affect:blunted, less fearful SI:passive, no plan or intent HI:none AH/VH:+AH male voices telling her to band her head on the wall or cut wrist, VH seeing blood/snakes. Delusions:some paranoid delusions Insight/judgment:poor x 2. Memory/cog: alert, oriented x 3. impaired secondary to psych symptoms and underlying cognitive impairments. Diagnostics Vital Signs (24Hr): Vital Signs - 24 hr 11/21/20 16:35 11/22/20 06:25 11/22/20 09:25 Temperature 97.8 F 96.7 F L Pulse Rate 114 H 93 103 H Respiratory Rate 18 Blood Pressure 91/51 L 99/52 L 134/73 Pulse Oximetry 95 Body Mass Index 35.6 Labs Results: 11/15/20 13:44 Labs: Laboratory Results - last 48 hr 11/17/20 07:50 Clozapine 1042 Norclozapine 261 Medications Medications Current Medications Generic Name Dose Route Start Last Admin Trade Name Maday PRN Reason Stop Dose Admin Acetaminophen 650 mg 11/15/20 22:17 11/21/20 16:42 Acetaminophen 325 Mg Tablet PO 650 mg Q6H PRN Administration Headache/Pain Mild Scale (1-3) Al Hydroxide/Mg Hydroxide 30 ml 11/15/20 22:17 11/17/20 23:26 Magnesium Hydrox/Alum Hydrox 30 Ml Oral.Susp PO 30 ml Q6H PRN Administration Heartburn/Nausea Albuterol Sulfate 2 puff 11/14/20 20:32 Albuterol Sulfate 90 Mcg 8 Gm Inhaler INHALE Q4H PRN Shortness Of Breath Bisacodyl 5 mg 11/14/20 21:00 11/21/20 22:00 Bisacodyl 5 Mg Tablet.Dr PO 5 mg BEDTIME LAXMI Administration Clonazepam 0.5 mg 11/15/20 09:00 11/22/20 09:25 Clonazepam 0.5 Mg Tablet PO 0.5 mg DAILY LAXMI Administration Clonazepam 1 mg 11/14/20 21:00 11/21/20 22:00 Clonazepam 1 Mg Tablet PO 1 mg BEDTIME LAXMI Administration Clozapine 300 mg 11/14/20 21:00 11/21/20 21:59 Clozapine 100 Mg Tablet PO 300 mg BEDTIME LAXMI Administration Clozapine 100 mg 11/18/20 09:00 11/22/20 09:25 Clozapine 100 Mg Tablet PO 100 mg DAILY LAXMI Administration Divalproex Sodium 1,000 mg 11/19/20 21:00 11/21/20 21:59 Divalproex Sodium Er 500 Mg Tab.Er.24h PO 1,000 mg BEDTIME LAXMI Administration Docusate Sodium 100 mg 11/14/20 21:00 11/22/20 09:25 Docusate Sodium 100 Mg Capsule PO 100 mg BID LAXMI Administration Fluticasone Propionate 2 puff 11/15/20 08:00 11/21/20 21:58 Fluticasone Propionate 250 Mcg Blst.W.Dev INHALE 2 puff RBID LAXMI Administration Hydroxyzine HCl 25 mg 11/17/20 15:00 11/22/20 14:25 Hydroxyzine Hcl 25 Mg Tablet PO 25 mg Q6H PRN Administration Anxiety Lactulose 10 gm 11/16/20 11:45 11/22/20 09:24 Lactulose 20 Gm/30 Ml Solution PO 10 gm BID LAXMI Administration Lisinopril 10 mg 11/15/20 09:00 11/22/20 09:25 Lisinopril 10 Mg Tablet PO 10 mg DAILY LAXMI Administration Protocol Magnesium Hydroxide 30 ml 11/15/20 22:17 11/16/20 01:23 Milk Of Magnesia 30 Ml Oral.Susp PO 30 ml DAILY PRN Administration Constipation Montelukast Sodium 10 mg 11/14/20 21:00 11/21/20 22:00 Montelukast Sodium 10 Mg Tablet PO 10 mg BEDTIME LAXMI Administration Nicotine 21 mg 11/15/20 09:00 11/22/20 09:24 Nicotine 21 Mg Patch.Td24 TRANSDERMA 21 mg DAILY LAXMI Administration Omeprazole 20 mg 11/15/20 06:30 11/22/20 06:07 Omeprazole 20 Mg Capsule.Dr PO 20 mg DAILY@0630 LAXMI Administration Polyethylene Glycol 17 gm 11/14/20 20:32 11/21/20 16:45 Polyethylene Glycol 3350 17 Gm Powd.Pack PO 17 gm DAILY PRN Administration Constipation Sodium Biphosphate/Sodium Phosphate 133 ml 11/21/20 17:34 11/21/20 20:55 Sodium Phosphate,[place]-Dibasic 133 Ml Enema [place] 133 ml ONCE PRN Administration Constipation Tramadol HCl 50 mg 11/19/20 10:37 11/21/20 22:01 Tramadol Hcl 50 Mg Tablet PO 50 mg Q8H PRN Administration pain Allergies Allergies Allergy/AdvReac Type Severity Reaction Status Date / Time aspirin [Aspirin] Allergy Unknown VOMIT Verified 11/11/20 21:31 diazepam [From Valium] Allergy Unknown UNKNOWN Verified 11/11/20 21:31 haloperidol [From Haldol] Allergy Unknown UNKN Verified 11/11/20 21:31 penicillin V Allergy Unknown Unknown Verified 11/11/20 21:31 Penicillins Allergy Unknown UNKN Verified 11/11/20 21:31 risperidone [From Risperdal] Allergy Unknown UNKNOWN Verified 11/11/20 21:31 trazodone [TRAZODONE] Allergy Unknown NAUSEA & Verified 11/11/20 21:31 VOMITING From Haldol Allergy Unknown UNKN Uncoded 11/11/20 21:31 Assessment & Plan Assessment & Plan (1) Schizophrenia: Status: Acute Code(s): F20.9 - Schizophrenia, unspecified Assessment and Plan: pending clozaril level continue current medications. Greater than 50% of the session was spent on counseling and/or coordination of care Reason for contiued inpatient stay Substantial Risk for: harm to self and inability to function
[2020-11-22 18:00] VITALS: BP 106/68; PULSE 118; TEMP 35.8
[2020-11-22] MEDS: clonazePAM 1 MG TABLET PO (22:11)
[2020-11-22] MEDS: bisacodyL 5 MG TABLET.DR PO (22:12)
[2020-11-22] MEDS: cloZAPine 100 MG TABLET 300 MG PO (22:12)
[2020-11-22] MEDS: Divalproex Sodium ER 500 MG TAB.ER.24H 1000 MG PO (22:12)
[2020-11-22] MEDS: Montelukast Sodium 10 MG TABLET PO (22:13)
[2020-11-22] MEDS: Fluticasone Propionate 250 MCG BLST.W.DEV 2 PUFF INHALE (22:21)
[2020-11-22] MEDS: traMADoL HCL 50 MG TABLET PO (22:29)
[2020-11-23] MEDS: hydrOXYzine HCL 25 MG TABLET PO ×2 (03:01→18:51)
[2020-11-23 05:30] VITALS: BP 152/83; PULSE 102; RESP 18; TEMP 36.2; O2SAT 99
[2020-11-23] MEDS: Omeprazole 20 MG CAPSULE.DR PO (06:14)
--- NOTE | 2020-11-23 09:15 | HO.PSYCHPN ---
Subjective Subjective Date of Service: 11/24/20 Reason For Visit: Psychosis Interim History: Pt reports CAH have decreased although they continue to tell her to hurt herself either by banding head on wall or cutting wrist. Pt reports difficulty falling asleep last night but most of the day she was in bed. She denies SI/HI. She reports feeling safe here in unit. She attended some groups in afternoon. No behavioral concerns. Review of Systems Review of Systems Yes all other systems are reviewed and are negative Constitutional: Reports as per HPI, Reports no additional constitutional complaints, Reports fatigue, Denies weight gain and Denies weight loss Eyes: Reports as per HPI and Reports no additional eye complaints Reports system reviewed and no additional complaints, except as documented and Reports as per HPI Cardiovascular: Reports as per HPI, Reports no additional cardiovascular complaints, Denies chest pain and Denies dyspnea Respiratory: Reports as per HPI, Reports no additional respiratory complaints, Denies chest congestion, Denies cough and Denies dyspnea Gastrointestinal: Reports as per HPI, Reports no additional gastrointestinal complaints and Reports constipation Musculoskeletal: Denies no additional musculoskeletal complaints and Reports as per HPI Reports system reviewed and no additional complaints, except as documented and Reports as per HPI Psychiatric: Reports no additional psychiatric complaints and Reports as per HPI Endocrine: Reports fatigue Mental Status Exam Mental Status Exam Narrative: Appearance: MO, poor hygiene, in NAD Behavior: somewhat guarded but cooperative Psychomotor: no agitation or retardation noted Speech: clear, normal rate/rhythm/volume, spontaneous TP: tangential TC: AH, feeling freighted but AH Mood: better Affect:blunted, less fearful SI:passive, no plan or intent HI:none AH/VH:+AH male voices telling her to band her head on the wall or cut wrist, VH seeing blood/snakes. Delusions:some paranoid delusions Insight/judgment:poor x 2. Memory/cog: alert, oriented x 3. impaired secondary to psych symptoms and underlying cognitive impairments. Diagnostics Vital Signs (24Hr): Vital Signs - 24 hr 11/23/20 18:00 11/24/20 05:30 Temperature 96.7 F L 96.9 F Pulse Rate 112 H 107 H Respiratory Rate 18 Blood Pressure 105/56 L 110/57 L Pulse Oximetry 97 Body Mass Index 35.6 Labs Results: 11/15/20 13:44 Medications Medications Current Medications Generic Name Dose Route Start Last Admin Trade Name Freq PRN Reason Stop Dose Admin Acetaminophen 650 mg 11/15/20 22:17 11/21/20 16:42 Acetaminophen 325 Mg Tablet PO 650 mg Q6H PRN Administration Headache/Pain Mild Scale (1-3) Al Hydroxide/Mg Hydroxide 30 ml 11/15/20 22:17 11/17/20 23:26 Magnesium Hydrox/Alum Hydrox 30 Ml Oral.Susp PO 30 ml Q6H PRN Administration Heartburn/Nausea Albuterol Sulfate 2 puff 11/14/20 20:32 Albuterol Sulfate 90 Mcg 8 Gm Inhaler INHALE Q4H PRN Shortness Of Breath Bisacodyl 5 mg 11/14/20 21:00 11/23/20 22:10 Bisacodyl 5 Mg Tablet.Dr PO 5 mg BEDTIME LAXMI Administration Clonazepam 0.5 mg 11/15/20 09:00 11/23/20 09:40 Clonazepam 0.5 Mg Tablet PO 0.5 mg DAILY LAXMI Administration Clonazepam 1 mg 11/14/20 21:00 11/23/20 21:55 Clonazepam 1 Mg Tablet PO 1 mg BEDTIME LAXMI Administration Clozapine 300 mg 11/14/20 21:00 11/23/20 22:10 Clozapine 100 Mg Tablet PO 300 mg BEDTIME LAXMI Administration Clozapine 100 mg 11/18/20 09:00 11/23/20 09:40 Clozapine 100 Mg Tablet PO 100 mg DAILY LAXMI Administration Divalproex Sodium 1,000 mg 11/19/20 21:00 11/23/20 22:11 Divalproex Sodium Er 500 Mg Tab.Er.24h PO 1,000 mg BEDTIME LAXMI Administration Docusate Sodium 100 mg 11/14/20 21:00 11/23/20 22:11 Docusate Sodium 100 Mg Capsule PO 100 mg BID LAXMI Administration Fluticasone Propionate 2 puff 11/15/20 08:00 11/23/20 21:58 Fluticasone Propionate 250 Mcg Blst.W.Dev INHALE 2 puff RBID LAXMI Administration Hydroxyzine HCl 25 mg 11/17/20 15:00 11/23/20 18:51 Hydroxyzine Hcl 25 Mg Tablet PO 25 mg Q6H PRN Administration Anxiety Lactulose 10 gm 11/16/20 11:45 11/23/20 22:11 Lactulose 20 Gm/30 Ml Solution PO 10 gm BID LAXMI Administration Lisinopril 10 mg 11/15/20 09:00 11/23/20 09:40 Lisinopril 10 Mg Tablet PO 10 mg DAILY LAXMI Administration Protocol Magnesium Hydroxide 30 ml 11/15/20 22:17 11/16/20 01:23 Milk Of Magnesia 30 Ml Oral.Susp PO 30 ml DAILY PRN Administration Constipation Montelukast Sodium 10 mg 11/14/20 21:00 11/23/20 22:11 Montelukast Sodium 10 Mg Tablet PO 10 mg BEDTIME LAXMI Administration Nicotine 21 mg 11/15/20 09:00 11/23/20 09:41 Nicotine 21 Mg Patch.Td24 TRANSDERMA 21 mg DAILY LAXMI Administration Omeprazole 20 mg 11/15/20 06:30 11/24/20 04:30 Omeprazole 20 Mg Capsule.Dr PO 20 mg DAILY@0630 LAXMI Administration Polyethylene Glycol 17 gm 11/14/20 20:32 11/21/20 16:45 Polyethylene Glycol 3350 17 Gm Powd.Pack PO 17 gm DAILY PRN Administration Constipation Sodium Biphosphate/Sodium Phosphate 133 ml 11/21/20 17:34 11/21/20 20:55 Sodium Phosphate,[place]-Dibasic 133 Ml Enema [place] 133 ml ONCE PRN Administration Constipation Tramadol HCl 50 mg 11/19/20 10:37 11/23/20 22:14 Tramadol Hcl 50 Mg Tablet PO 50 mg Q8H PRN Administration pain Allergies Allergies Allergy/AdvReac Type Severity Reaction Status Date / Time aspirin [Aspirin] Allergy Unknown VOMIT Verified 11/11/20 21:31 diazepam [From Valium] Allergy Unknown UNKNOWN Verified 11/11/20 21:31 haloperidol [From Haldol] Allergy Unknown UNKN Verified 11/11/20 21:31 penicillin V Allergy Unknown Unknown Verified 11/11/20 21:31 Penicillins Allergy Unknown UNKN Verified 11/11/20 21:31 risperidone [From Risperdal] Allergy Unknown UNKNOWN Verified 11/11/20 21:31 trazodone [TRAZODONE] Allergy Unknown NAUSEA & Verified 11/11/20 21:31 VOMITING From Haldol Allergy Unknown UNKN Uncoded 11/11/20 21:31 Assessment & Plan Assessment & Plan (1) Schizophrenia: Status: Acute Code(s): F20.9 - Schizophrenia, unspecified Assessment and Plan: pending clozaril level continue current medications. Greater than 50% of the session was spent on counseling and/or coordination of care Reason for contiued inpatient stay Substantial Risk for: harm to self
[2020-11-23] MEDS: lisinopriL 10 MG TABLET PO (09:40)
[2020-11-23] MEDS: cloZAPine 100 MG TABLET PO (09:40)
[2020-11-23] MEDS: Lactulose 20 GM/30 ML SOLUTION 10 GM PO ×2 (09:40→22:11)
[2020-11-23] MEDS: Docusate Sodium 100 MG CAPSULE PO ×2 (09:40→22:11)
[2020-11-23] MEDS: clonazePAM 0.5 MG TABLET PO (09:40)
[2020-11-23] MEDS: Nicotine 21 MG PATCH.TD24 TRANSDERMA (09:41)
[2020-11-23] MEDS: Fluticasone Propionate 250 MCG BLST.W.DEV 2 PUFF INHALE ×2 (09:53→21:58)
[2020-11-23] MEDS: traMADoL HCL 50 MG TABLET PO ×2 (09:55→22:14)
[2020-11-23 18:00] VITALS: BP 105/56; PULSE 112; TEMP 35.9
[2020-11-23] MEDS: clonazePAM 1 MG TABLET PO (21:55)
[2020-11-23] MEDS: cloZAPine 100 MG TABLET 300 MG PO (22:10)
[2020-11-23] MEDS: bisacodyL 5 MG TABLET.DR PO (22:10)
[2020-11-23] MEDS: Divalproex Sodium ER 500 MG TAB.ER.24H 1000 MG PO (22:11)
[2020-11-23] MEDS: Montelukast Sodium 10 MG TABLET PO (22:11)
[2020-11-24] MEDS: Omeprazole 20 MG CAPSULE.DR PO (04:30)
[2020-11-24 05:30] VITALS: BP 110/57; PULSE 107; RESP 18; TEMP 36.1; O2SAT 97
[2020-11-24 09:21] VITALS: BP 112/70; PULSE 77
[2020-11-24] MEDS: lisinopriL 10 MG TABLET PO (09:21)
[2020-11-24] MEDS: Fluticasone Propionate 250 MCG BLST.W.DEV 2 PUFF INHALE ×2 (09:21→21:57)
[2020-11-24] MEDS: clonazePAM 0.5 MG TABLET PO (09:22)
[2020-11-24] MEDS: Docusate Sodium 100 MG CAPSULE PO ×2 (09:22→21:57)
[2020-11-24] MEDS: cloZAPine 100 MG TABLET PO (09:22)
[2020-11-24] MEDS: Nicotine 21 MG PATCH.TD24 TRANSDERMA (09:24)
[2020-11-24] MEDS: traMADoL HCL 50 MG TABLET PO ×2 (09:27→22:10)
--- NOTE | 2020-11-24 13:48 | HO.PSYCHPN ---
Subjective Subjective Date of Service: 11/25/20 Reason For Visit: Psychosis Interim History: Pt was up in the morning. She continues to endorse CAH but reports it is improving. She denies SI/HI. She reports sleep is improving as well in that if she wakes up able to go back to sleep. She has attended groups. Social with select peers. Review of Systems Review of Systems Yes all other systems are reviewed and are negative Constitutional: Reports as per HPI, Reports no additional constitutional complaints, Reports fatigue, Denies weight gain and Denies weight loss Eyes: Reports as per HPI and Reports no additional eye complaints Reports system reviewed and no additional complaints, except as documented and Reports as per HPI Cardiovascular: Reports as per HPI, Reports no additional cardiovascular complaints, Denies chest pain and Denies dyspnea Respiratory: Reports as per HPI, Reports no additional respiratory complaints, Denies chest congestion, Denies cough and Denies dyspnea Gastrointestinal: Reports as per HPI, Reports no additional gastrointestinal complaints and Reports constipation Musculoskeletal: Denies no additional musculoskeletal complaints and Reports as per HPI Reports system reviewed and no additional complaints, except as documented and Reports as per HPI Psychiatric: Reports no additional psychiatric complaints and Reports as per HPI Endocrine: Reports fatigue Mental Status Exam Mental Status Exam Narrative: Appearance: MO, poor hygiene, in NAD Behavior: somewhat guarded but cooperative Psychomotor: no agitation or retardation noted Speech: clear, normal rate/rhythm/volume, spontaneous TP: tangential TC: AH, feeling freighted but AH Mood: better Affect:blunted, less fearful SI:passive, no plan or intent HI:none AH/VH:+AH male voices telling her to band her head on the wall or cut wrist, VH seeing blood/snakes. Delusions:some paranoid delusions Insight/judgment:poor x 2. Memory/cog: alert, oriented x 3. impaired secondary to psych symptoms and underlying cognitive impairments. Diagnostics Vital Signs (24Hr): Vital Signs - 24 hr 11/24/20 16:40 11/25/20 04:50 11/25/20 10:21 Temperature 97.7 F 96.8 F Pulse Rate 110 H 106 H 96 Respiratory Rate 18 Blood Pressure 102/59 L 107/59 L 94/51 L Pulse Oximetry 95 11/25/20 10:25 Temperature Pulse Rate 96 Respiratory Rate Blood Pressure 94/51 L Pulse Oximetry Body Mass Index 35.6 Labs Results: 11/15/20 13:44 Medications Medications Current Medications Generic Name Dose Route Start Last Admin Trade Name Julioq PRN Reason Stop Dose Admin Acetaminophen 650 mg 11/15/20 22:17 11/21/20 16:42 Acetaminophen 325 Mg Tablet PO 650 mg Q6H PRN Administration Headache/Pain Mild Scale (1-3) Al Hydroxide/Mg Hydroxide 30 ml 11/15/20 22:17 11/17/20 23:26 Magnesium Hydrox/Alum Hydrox 30 Ml Oral.Susp PO 30 ml Q6H PRN Administration Heartburn/Nausea Albuterol Sulfate 2 puff 11/14/20 20:32 Albuterol Sulfate 90 Mcg 8 Gm Inhaler INHALE Q4H PRN Shortness Of Breath Bisacodyl 5 mg 11/14/20 21:00 11/24/20 22:04 Bisacodyl 5 Mg Tablet.Dr PO 5 mg BEDTIME LAXMI Administration Clonazepam 0.5 mg 11/15/20 09:00 11/25/20 10:26 Clonazepam 0.5 Mg Tablet PO 0.5 mg DAILY LAXMI Administration Clonazepam 1 mg 11/14/20 21:00 11/24/20 22:03 Clonazepam 1 Mg Tablet PO 1 mg BEDTIME LAXMI Administration Clozapine 300 mg 11/14/20 21:00 11/24/20 22:03 Clozapine 100 Mg Tablet PO 300 mg BEDTIME LAXMI Administration Clozapine 100 mg 11/18/20 09:00 11/25/20 10:26 Clozapine 100 Mg Tablet PO 100 mg DAILY LAXMI Administration Divalproex Sodium 1,000 mg 11/19/20 21:00 11/24/20 22:04 Divalproex Sodium Er 500 Mg Tab.Er.24h PO 1,000 mg BEDTIME LAXMI Administration Docusate Sodium 100 mg 11/14/20 21:00 11/25/20 10:25 Docusate Sodium 100 Mg Capsule PO 100 mg BID LAXMI Administration Fluticasone Propionate 2 puff 11/15/20 08:00 11/25/20 10:26 Fluticasone Propionate 250 Mcg Blst.W.Dev INHALE 2 puff RBID LAXMI Administration Hydroxyzine HCl 25 mg 11/17/20 15:00 11/24/20 16:44 Hydroxyzine Hcl 25 Mg Tablet PO 25 mg Q6H PRN Administration Anxiety Lactulose 10 gm 11/16/20 11:45 11/25/20 10:24 Lactulose 20 Gm/30 Ml Solution PO 10 gm BID LAXMI Administration Lisinopril 10 mg 11/15/20 09:00 11/25/20 10:25 Lisinopril 10 Mg Tablet PO 10 mg DAILY LAXMI Administration Protocol Magnesium Hydroxide 30 ml 11/15/20 22:17 11/16/20 01:23 Milk Of Magnesia 30 Ml Oral.Susp PO 30 ml DAILY PRN Administration Constipation Montelukast Sodium 10 mg 11/14/20 21:00 11/24/20 22:03 Montelukast Sodium 10 Mg Tablet PO 10 mg BEDTIME LAXMI Administration Nicotine 21 mg 11/15/20 09:00 11/25/20 10:26 Nicotine 21 Mg Patch.Td24 TRANSDERMA 21 mg DAILY LAXMI Administration Omeprazole 20 mg 11/15/20 06:30 11/25/20 05:03 Omeprazole 20 Mg Capsule.Dr PO 20 mg DAILY@0630 LAXMI Administration Polyethylene Glycol 17 gm 11/14/20 20:32 11/21/20 16:45 Polyethylene Glycol 3350 17 Gm Powd.Pack PO 17 gm DAILY PRN Administration Constipation Sodium Biphosphate/Sodium Phosphate 133 ml 11/21/20 17:34 11/21/20 20:55 Sodium Phosphate,[place]-Dibasic 133 Ml Enema [place] 133 ml ONCE PRN Administration Constipation Tramadol HCl 50 mg 11/19/20 10:37 11/25/20 10:40 Tramadol Hcl 50 Mg Tablet PO 50 mg Q8H PRN Administration pain Allergies Allergies Allergy/AdvReac Type Severity Reaction Status Date / Time aspirin [Aspirin] Allergy Unknown VOMIT Verified 11/11/20 21:31 diazepam [From Valium] Allergy Unknown UNKNOWN Verified 11/11/20 21:31 haloperidol [From Haldol] Allergy Unknown UNKN Verified 11/11/20 21:31 penicillin V Allergy Unknown Unknown Verified 11/11/20 21:31 Penicillins Allergy Unknown UNKN Verified 11/11/20 21:31 risperidone [From Risperdal] Allergy Unknown UNKNOWN Verified 11/11/20 21:31 trazodone [TRAZODONE] Allergy Unknown NAUSEA & Verified 11/11/20 21:31 VOMITING From Haldol Allergy Unknown UNKN Uncoded 11/11/20 21:31 Assessment & Plan Assessment & Plan (1) Schizophrenia: Status: Acute Code(s): F20.9 - Schizophrenia, unspecified Assessment and Plan: pending clozaril level continue current medications. Greater than 50% of the session was spent on counseling and/or coordination of care Reason for contiued inpatient stay Substantial Risk for: harm to self
[2020-11-24 16:40] VITALS: BP 102/59; PULSE 110; TEMP 36.5
[2020-11-24] MEDS: hydrOXYzine HCL 25 MG TABLET PO (16:44)
[2020-11-24] MEDS: cloZAPine 100 MG TABLET 300 MG PO (22:03)
[2020-11-24] MEDS: Montelukast Sodium 10 MG TABLET PO (22:03)
[2020-11-24] MEDS: clonazePAM 1 MG TABLET PO (22:03)
[2020-11-24] MEDS: Lactulose 20 GM/30 ML SOLUTION 10 GM PO (22:04)
[2020-11-24] MEDS: Divalproex Sodium ER 500 MG TAB.ER.24H 1000 MG PO (22:04)
[2020-11-24] MEDS: bisacodyL 5 MG TABLET.DR PO (22:04)
[2020-11-25 04:50] VITALS: BP 107/59; PULSE 106; RESP 18; TEMP 36; O2SAT 95
[2020-11-25] MEDS: Omeprazole 20 MG CAPSULE.DR PO (05:03)
[2020-11-25 07:00] VITALS: BMI 35.4
[2020-11-25 10:21] VITALS: BP 94/51; PULSE 96
[2020-11-25] MEDS: Lactulose 20 GM/30 ML SOLUTION 10 GM PO ×2 (10:24→22:05)
[2020-11-25 10:25] VITALS: BP 94/51; PULSE 96
[2020-11-25] MEDS: Docusate Sodium 100 MG CAPSULE PO ×2 (10:25→22:07)
[2020-11-25] MEDS: lisinopriL 10 MG TABLET PO (10:25)
[2020-11-25] MEDS: Nicotine 21 MG PATCH.TD24 TRANSDERMA (10:26)
[2020-11-25] MEDS: clonazePAM 0.5 MG TABLET PO (10:26)
[2020-11-25] MEDS: cloZAPine 100 MG TABLET PO (10:26)
[2020-11-25] MEDS: Fluticasone Propionate 250 MCG BLST.W.DEV 2 PUFF INHALE ×2 (10:26→21:14)
[2020-11-25] MEDS: traMADoL HCL 50 MG TABLET PO ×2 (10:40→22:08)
--- NOTE | 2020-11-25 13:46 | HO.PSYCHPN ---
Subjective Subjective Date of Service: 11/25/20 Reason For Visit: Psychosis Interim History: Pt was mostly in bed in the morning but more visible in the afternoon. She reports voices have decrease but they continue to be CAH in nature. Pt reports voices telling her to band head on wall or cut wrist. She reports she slept fairly well last night. She denies SI/HI. She reports having constipation- no BM since enema on Sunday. She met with [facility] behavioral health case manager who reports pt not ready to discharge as she continues to experience CAH which not baseline. Pt does hear AH but less CAH. No behavioral concerns. Review of Systems Review of Systems Yes all other systems are reviewed and are negative Constitutional: Reports as per HPI, Reports no additional constitutional complaints, Reports fatigue, Denies weight gain and Denies weight loss Eyes: Reports as per HPI and Reports no additional eye complaints Reports system reviewed and no additional complaints, except as documented and Reports as per HPI Cardiovascular: Reports as per HPI, Reports no additional cardiovascular complaints, Denies chest pain and Denies dyspnea Respiratory: Reports as per HPI, Reports no additional respiratory complaints, Denies chest congestion, Denies cough and Denies dyspnea Gastrointestinal: Reports as per HPI, Reports no additional gastrointestinal complaints and Reports constipation Musculoskeletal: Denies no additional musculoskeletal complaints and Reports as per HPI Reports system reviewed and no additional complaints, except as documented and Reports as per HPI Psychiatric: Reports no additional psychiatric complaints and Reports as per HPI Endocrine: Reports fatigue Mental Status Exam Mental Status Exam Narrative: Appearance: MO, poor hygiene, in NAD Behavior: somewhat guarded but cooperative Psychomotor: no agitation or retardation noted Speech: clear, normal rate/rhythm/volume, spontaneous TP: tangential TC: AH, feeling freighted but AH Mood: better Affect:blunted, less fearful SI:passive, no plan or intent HI:none AH/VH:+AH male voices telling her to band her head on the wall or cut wrist, VH seeing blood/snakes. Delusions:some paranoid delusions Insight/judgment:poor x 2. Memory/cog: alert, oriented x 3. impaired secondary to psych symptoms and underlying cognitive impairments. Diagnostics Vital Signs (24Hr): Vital Signs - 24 hr 11/24/20 16:40 11/25/20 04:50 11/25/20 10:21 Temperature 97.7 F 96.8 F Pulse Rate 110 H 106 H 96 Respiratory Rate 18 Blood Pressure 102/59 L 107/59 L 94/51 L Pulse Oximetry 95 11/25/20 10:25 Temperature Pulse Rate 96 Respiratory Rate Blood Pressure 94/51 L Pulse Oximetry Body Mass Index 35.6 Labs Results: 11/15/20 13:44 Medications Medications Current Medications Generic Name Dose Route Start Last Admin Trade Name Freq PRN Reason Stop Dose Admin Acetaminophen 650 mg 11/15/20 22:17 11/21/20 16:42 Acetaminophen 325 Mg Tablet PO 650 mg Q6H PRN Administration Headache/Pain Mild Scale (1-3) Al Hydroxide/Mg Hydroxide 30 ml 11/15/20 22:17 11/17/20 23:26 Magnesium Hydrox/Alum Hydrox 30 Ml Oral.Susp PO 30 ml Q6H PRN Administration Heartburn/Nausea Albuterol Sulfate 2 puff 11/14/20 20:32 Albuterol Sulfate 90 Mcg 8 Gm Inhaler INHALE Q4H PRN Shortness Of Breath Bisacodyl 5 mg 11/14/20 21:00 11/24/20 22:04 Bisacodyl 5 Mg Tablet. PO 5 mg BEDTIME LAXMI Administration Clonazepam 0.5 mg 11/15/20 09:00 11/25/20 10:26 Clonazepam 0.5 Mg Tablet PO 0.5 mg DAILY LAXMI Administration Clonazepam 1 mg 11/14/20 21:00 11/24/20 22:03 Clonazepam 1 Mg Tablet PO 1 mg BEDTIME LAXMI Administration Clozapine 300 mg 11/14/20 21:00 11/24/20 22:03 Clozapine 100 Mg Tablet PO 300 mg BEDTIME LAXMI Administration Clozapine 100 mg 11/18/20 09:00 11/25/20 10:26 Clozapine 100 Mg Tablet PO 100 mg DAILY LAXMI Administration Divalproex Sodium 1,000 mg 11/19/20 21:00 11/24/20 22:04 Divalproex Sodium Er 500 Mg Tab.Er.24h PO 1,000 mg BEDTIME LAXMI Administration Docusate Sodium 100 mg 11/14/20 21:00 11/25/20 10:25 Docusate Sodium 100 Mg Capsule PO 100 mg BID LAXMI Administration Fluticasone Propionate 2 puff 11/15/20 08:00 11/25/20 10:26 Fluticasone Propionate 250 Mcg Blst.W.Dev INHALE 2 puff RBID LAXMI Administration Hydroxyzine HCl 25 mg 11/17/20 15:00 11/24/20 16:44 Hydroxyzine Hcl 25 Mg Tablet PO 25 mg Q6H PRN Administration Anxiety Lactulose 10 gm 11/16/20 11:45 11/25/20 10:24 Lactulose 20 Gm/30 Ml Solution PO 10 gm BID LAXMI Administration Lisinopril 10 mg 11/15/20 09:00 11/25/20 10:25 Lisinopril 10 Mg Tablet PO 10 mg DAILY LAXMI Administration Protocol Magnesium Hydroxide 30 ml 11/15/20 22:17 11/16/20 01:23 Milk Of Magnesia 30 Ml Oral.Susp PO 30 ml DAILY PRN Administration Constipation Montelukast Sodium 10 mg 11/14/20 21:00 11/24/20 22:03 Montelukast Sodium 10 Mg Tablet PO 10 mg BEDTIME LAXMI Administration Nicotine 21 mg 11/15/20 09:00 11/25/20 10:26 Nicotine 21 Mg Patch.Td24 TRANSDERMA 21 mg DAILY LAXMI Administration Omeprazole 20 mg 11/15/20 06:30 11/25/20 05:03 Omeprazole 20 Mg Capsule.Dr PO 20 mg DAILY@0630 LAXMI Administration Polyethylene Glycol 17 gm 11/14/20 20:32 11/21/20 16:45 Polyethylene Glycol 3350 17 Gm Powd.Pack PO 17 gm DAILY PRN Administration Constipation Sodium Biphosphate/Sodium Phosphate 133 ml 11/21/20 17:34 11/21/20 20:55 Sodium Phosphate,[place]-Dibasic 133 Ml Enema [place] 133 ml ONCE PRN Administration Constipation Tramadol HCl 50 mg 11/19/20 10:37 11/25/20 10:40 Tramadol Hcl 50 Mg Tablet PO 50 mg Q8H PRN Administration pain Allergies Allergies Allergy/AdvReac Type Severity Reaction Status Date / Time aspirin [Aspirin] Allergy Unknown VOMIT Verified 11/11/20 21:31 diazepam [From Valium] Allergy Unknown UNKNOWN Verified 11/11/20 21:31 haloperidol [From Haldol] Allergy Unknown UNKN Verified 11/11/20 21:31 penicillin V Allergy Unknown Unknown Verified 11/11/20 21:31 Penicillins Allergy Unknown UNKN Verified 11/11/20 21:31 risperidone [From Risperdal] Allergy Unknown UNKNOWN Verified 11/11/20 21:31 trazodone [TRAZODONE] Allergy Unknown NAUSEA & Verified 11/11/20 21:31 VOMITING From Haldol Allergy Unknown UNKN Uncoded 11/11/20 21:31 Assessment & Plan Assessment & Plan (1) Schizophrenia: Status: Acute Code(s): F20.9 - Schizophrenia, unspecified Assessment and Plan: pending clozaril level continue current medications. Greater than 50% of the session was spent on counseling and/or coordination of care Reason for contiued inpatient stay Substantial Risk for: inability to function
[2020-11-25] MEDS: hydrOXYzine HCL 25 MG TABLET PO (14:12)
[2020-11-25 14:31] LABS: MANUAL DIFF FLAG NO
[2020-11-25 14:35] LABS: Basophils Percent Auto 0.3 % (0-2); Eosinophils Absolute Auto 0.1 X10*3/uL (0.0-0.4); Eosinophils Percent Auto 0.9 % (0-4); Hematocrit 39.1 % (37-47); Hemoglobin 12.6 g/dl (12.0-16.0); Imm Gran Abs Auto 0.04 X10*3/uL (0.00-0.03); Imm Gran Pct Auto 0.4 % (0.0-0.4); Lymphocytes Absolute Auto 2.9 X10*3/uL (1.2-4.9); Lymphocytes Percent Auto 31.7 % (20-40); Mean Corpuscular HGB Conc 32.2 g/dl (31.0-35.0); Mean Corpuscular Hemoglobin 29.6 pg (27.0-33.0); Mean Corpuscular Volume 91.8 fL (80-98); Monocytes Absolute Auto 0.8 X10*3/uL (0.1-1.2); Monocytes Percent Auto 8.6 % (2-11); Neutrophils Absolute Auto 5.3 X10*3/uL (2.0-8.3); Neutrophils Percent Auto 58.1 % (45-73); Platelet Count 217 X10*3/uL (160-400); Red Blood Count 4.26 X10*6/uL (4.20-5.50); Red Cell Distribution Width 13.9 % (11.0-16.0); White Blood Count 9.1 X10*3/uL (4.8-10.8)
[2020-11-25 18:00] VITALS: BP 115/76; PULSE 113; TEMP 35.9
[2020-11-25] MEDS: bisacodyL 5 MG TABLET.DR PO (22:06)
[2020-11-25] MEDS: Divalproex Sodium ER 500 MG TAB.ER.24H 1000 MG PO (22:06)
[2020-11-25] MEDS: clonazePAM 1 MG TABLET PO (22:06)
[2020-11-25] MEDS: Montelukast Sodium 10 MG TABLET PO (22:06)
[2020-11-25] MEDS: cloZAPine 100 MG TABLET 300 MG PO (22:07)
[2020-11-26 05:45] VITALS: BP 105/59; PULSE 108; RESP 18; TEMP 36; O2SAT 97
[2020-11-26] MEDS: Omeprazole 20 MG CAPSULE.DR PO (05:49)
[2020-11-26] MEDS: Docusate Sodium 100 MG CAPSULE PO ×2 (09:37→21:41)
[2020-11-26] MEDS: clonazePAM 0.5 MG TABLET PO (09:37)
[2020-11-26] MEDS: cloZAPine 100 MG TABLET PO (09:37)
[2020-11-26] MEDS: Fluticasone Propionate 250 MCG BLST.W.DEV 2 PUFF INHALE ×2 (09:37→21:37)
[2020-11-26 09:38] VITALS: BP 115/60; PULSE 99
[2020-11-26] MEDS: lisinopriL 10 MG TABLET PO (09:38)
[2020-11-26] MEDS: Nicotine 21 MG PATCH.TD24 TRANSDERMA (09:39)
[2020-11-26] MEDS: traMADoL HCL 50 MG TABLET PO ×2 (09:42→21:53)
--- NOTE | 2020-11-26 14:53 | HO.PSYCHPN ---
Subjective Subjective Date of Service: 11/26/20 Reason For Visit: Psychosis Interim History: Pt with much brighter affect. She reports today not hearing voices as much. She reports feeling less depressed. She denies SI/HI. She reports sleeping better. She has attended groups, social with peers. No acute distressed nor behavioral concerns. No self injurious behaviors. Review of Systems Review of Systems Yes all other systems are reviewed and are negative Constitutional: Reports as per HPI, Reports no additional constitutional complaints, Reports fatigue, Denies weight gain and Denies weight loss Eyes: Reports as per HPI and Reports no additional eye complaints Reports system reviewed and no additional complaints, except as documented and Reports as per HPI Cardiovascular: Reports as per HPI, Reports no additional cardiovascular complaints, Denies chest pain and Denies dyspnea Respiratory: Reports as per HPI, Reports no additional respiratory complaints, Denies chest congestion, Denies cough and Denies dyspnea Gastrointestinal: Reports as per HPI, Reports no additional gastrointestinal complaints and Reports constipation Musculoskeletal: Denies no additional musculoskeletal complaints and Reports as per HPI Reports system reviewed and no additional complaints, except as documented and Reports as per HPI Psychiatric: Reports no additional psychiatric complaints and Reports as per HPI Endocrine: Reports fatigue Mental Status Exam Mental Status Exam Narrative: Appearance: MO, poor hygiene, in NAD Behavior: somewhat guarded but cooperative Psychomotor: no agitation or retardation noted Speech: clear, normal rate/rhythm/volume, spontaneous TP: tangential TC: AH, feeling freighted but AH Mood: better Affect:blunted, less fearful SI:passive, no plan or intent HI:none AH/VH:+AH male voices telling her to band her head on the wall or cut wrist, VH seeing blood/snakes. Delusions:some paranoid delusions Insight/judgment:poor x 2. Memory/cog: alert, oriented x 3. impaired secondary to psych symptoms and underlying cognitive impairments. Diagnostics Vital Signs (24Hr): Vital Signs - 24 hr 11/25/20 18:00 11/26/20 05:45 11/26/20 09:38 Temperature 96.7 F L 96.8 F Pulse Rate 113 H 108 H 99 Respiratory Rate 18 Blood Pressure 115/76 105/59 L 115/60 Pulse Oximetry 97 Body Mass Index 35.4 Labs Results: 11/25/20 14:23 Labs: Laboratory Results - last 48 hr 11/25/20 14:23 WBC 9.1 RBC 4.26 Hgb 12.6 Hct 39.1 MCV 91.8 MCH 29.6 MCHC 32.2 RDW 13.9 Plt Count 217 MPV 12.0 Immature Gran % (Auto) 0.4 Neut % (Auto) 58.1 Lymph % (Auto) 31.7 [place] % (Auto) 8.6 Eos % (Auto) 0.9 Baso % (Auto) 0.3 Lymph # (Auto) 2.9 [place] # (Auto) 0.8 Eos # (Auto) 0.1 Baso # (Auto) 0.0 Abs Immat Gran (auto) 0.04 H Absolute Neuts (auto) 5.3 Absolute Nucleated RBC 0.000 Nucleated RBC % (auto) 0.0 Medications Medications Current Medications Generic Name Dose Route Start Last Admin Trade Name Freq PRN Reason Stop Dose Admin Acetaminophen 650 mg 11/15/20 22:17 11/21/20 16:42 Acetaminophen 325 Mg Tablet PO 650 mg Q6H PRN Administration Headache/Pain Mild Scale (1-3) Al Hydroxide/Mg Hydroxide 30 ml 11/15/20 22:17 11/17/20 23:26 Magnesium Hydrox/Alum Hydrox 30 Ml Oral.Susp PO 30 ml Q6H PRN Administration Heartburn/Nausea Albuterol Sulfate 2 puff 11/14/20 20:32 Albuterol Sulfate 90 Mcg 8 Gm Inhaler INHALE Q4H PRN Shortness Of Breath Bisacodyl 5 mg 11/14/20 21:00 11/25/20 22:06 Bisacodyl 5 Mg Tablet. PO 5 mg BEDTIME LAXMI Administration Clonazepam 0.5 mg 11/15/20 09:00 11/26/20 09:37 Clonazepam 0.5 Mg Tablet PO 0.5 mg DAILY LAXMI Administration Clonazepam 1 mg 11/14/20 21:00 11/25/20 22:06 Clonazepam 1 Mg Tablet PO 1 mg BEDTIME LAXMI Administration Clozapine 300 mg 11/14/20 21:00 11/25/20 22:07 Clozapine 100 Mg Tablet PO 300 mg BEDTIME LAXMI Administration Clozapine 100 mg 11/18/20 09:00 11/26/20 09:37 Clozapine 100 Mg Tablet PO 100 mg DAILY LAXMI Administration Divalproex Sodium 1,000 mg 11/19/20 21:00 11/25/20 22:06 Divalproex Sodium Er 500 Mg Tab.Er.24h PO 1,000 mg BEDTIME LAXMI Administration Docusate Sodium 100 mg 11/14/20 21:00 11/26/20 09:37 Docusate Sodium 100 Mg Capsule PO 100 mg BID LAXMI Administration Fluticasone Propionate 2 puff 11/15/20 08:00 11/26/20 09:37 Fluticasone Propionate 250 Mcg Blst.W.Dev INHALE 2 puff RBID LAXMI Administration Hydroxyzine HCl 25 mg 11/17/20 15:00 11/25/20 14:12 Hydroxyzine Hcl 25 Mg Tablet PO 25 mg Q6H PRN Administration Anxiety Lactulose 10 gm 11/16/20 11:45 11/26/20 09:45 Lactulose 20 Gm/30 Ml Solution PO Not Given BID ON LICENSE OF [facility] Lisinopril 10 mg 11/15/20 09:00 11/26/20 09:38 Lisinopril 10 Mg Tablet PO 10 mg DAILY LAXMI Administration Protocol Magnesium Hydroxide 30 ml 11/15/20 22:17 11/16/20 01:23 Milk Of Magnesia 30 Ml Oral.Susp PO 30 ml DAILY PRN Administration Constipation Montelukast Sodium 10 mg 11/14/20 21:00 11/25/20 22:06 Montelukast Sodium 10 Mg Tablet PO 10 mg BEDTIME LAXMI Administration Nicotine 21 mg 11/15/20 09:00 11/26/20 09:39 Nicotine 21 Mg Patch.Td24 TRANSDERMA 21 mg DAILY LAXMI Administration Omeprazole 20 mg 11/15/20 06:30 11/26/20 05:49 Omeprazole 20 Mg Capsule.Dr PO 20 mg DAILY@0630 LAXMI Administration Polyethylene Glycol 17 gm 11/14/20 20:32 11/21/20 16:45 Polyethylene Glycol 3350 17 Gm Powd.Pack PO 17 gm DAILY PRN Administration Constipation Sodium Biphosphate/Sodium Phosphate 133 ml 11/21/20 17:34 11/21/20 20:55 Sodium Phosphate,[place]-Dibasic 133 Ml Enema [place] 133 ml ONCE PRN Administration Constipation Tramadol HCl 50 mg 11/19/20 10:37 11/26/20 09:42 Tramadol Hcl 50 Mg Tablet PO 50 mg Q8H PRN Administration pain Allergies Allergies Allergy/AdvReac Type Severity Reaction Status Date / Time aspirin [Aspirin] Allergy Unknown VOMIT Verified 11/11/20 21:31 diazepam [From Valium] Allergy Unknown UNKNOWN Verified 11/11/20 21:31 haloperidol [From Haldol] Allergy Unknown UNKN Verified 11/11/20 21:31 penicillin V Allergy Unknown Unknown Verified 11/11/20 21:31 Penicillins Allergy Unknown UNKN Verified 11/11/20 21:31 risperidone [From Risperdal] Allergy Unknown UNKNOWN Verified 11/11/20 21:31 trazodone [TRAZODONE] Allergy Unknown NAUSEA & Verified 11/11/20 21:31 VOMITING From Haldol Allergy Unknown UNKN Uncoded 11/11/20 21:31 Assessment & Plan Assessment & Plan (1) Schizophrenia: Status: Acute Code(s): F20.9 - Schizophrenia, unspecified Assessment and Plan: pending clozaril level continue current medications. Greater than 50% of the session was spent on counseling and/or coordination of care Reason for contiued inpatient stay Substantial Risk for: inability to function
[2020-11-26 18:00] VITALS: BP 96/58; PULSE 104; TEMP 35.8
[2020-11-26 20:46] VITALS: BP 100/51; PULSE 104
[2020-11-26] MEDS: bisacodyL 5 MG TABLET.DR PO (21:41)
[2020-11-26] MEDS: cloZAPine 100 MG TABLET 300 MG PO (21:41)
[2020-11-26] MEDS: clonazePAM 1 MG TABLET PO (21:41)
[2020-11-26] MEDS: Montelukast Sodium 10 MG TABLET PO (21:41)
[2020-11-26] MEDS: Divalproex Sodium ER 500 MG TAB.ER.24H 1000 MG PO (21:41)
[2020-11-26] MEDS: Lactulose 20 GM/30 ML SOLUTION PO (21:52)
[2020-11-27 06:00] VITALS: BP 102/50; PULSE 95; TEMP 35.9; O2SAT 95
[2020-11-27] MEDS: cloZAPine 100 MG TABLET PO (08:48)
[2020-11-27] MEDS: Nicotine 21 MG PATCH.TD24 TRANSDERMA (08:49)
[2020-11-27] MEDS: Fluticasone Propionate 250 MCG BLST.W.DEV 2 PUFF INHALE ×2 (08:49→22:11)
[2020-11-27] MEDS: Docusate Sodium 100 MG CAPSULE PO ×2 (08:49→22:10)
[2020-11-27] MEDS: clonazePAM 0.5 MG TABLET PO (08:49)
[2020-11-27] MEDS: Omeprazole 20 MG CAPSULE.DR PO (08:49)
[2020-11-27 08:50] VITALS: BP 102/50; PULSE 95
[2020-11-27] MEDS: traMADoL HCL 50 MG TABLET PO ×2 (09:02→22:08)
--- NOTE | 2020-11-27 10:40 | P.PNPSI_ITS ---
Subjective Subjective Date of Service: 11/27/20 Reason For Visit: Psychosis Interim History: Pt with much brighter affect. She reports AH intermittently. She reports feeling less depressed. She denies SI/HI. She reports sleeping better. She has attended groups, social with peers. No acute distressed nor behavioral concerns. No self injurious behaviors. Review of Systems Review of Systems Yes all other systems are reviewed and are negative Constitutional: Reports as per HPI, Reports no additional constitutional complaints, Reports fatigue, Denies weight gain and Denies weight loss Eyes: Reports as per HPI and Reports no additional eye complaints Reports system reviewed and no additional complaints, except as documented and Reports as per HPI Cardiovascular: Reports as per HPI, Reports no additional cardiovascular complaints, Denies chest pain and Denies dyspnea Respiratory: Reports as per HPI, Reports no additional respiratory complaints, Denies chest congestion, Denies cough and Denies dyspnea Gastrointestinal: Reports as per HPI, Reports no additional gastrointestinal complaints and Reports constipation Musculoskeletal: Denies no additional musculoskeletal complaints and Reports as per HPI Reports system reviewed and no additional complaints, except as documented and Reports as per HPI Psychiatric: Reports no additional psychiatric complaints and Reports as per HPI Endocrine: Reports fatigue Mental Status Exam Mental Status Exam Narrative: Appearance: MO, poor hygiene, in NAD Behavior: somewhat guarded but cooperative Psychomotor: no agitation or retardation noted Speech: clear, normal rate/rhythm/volume, spontaneous TP: tangential TC: AH, feeling freighted but AH Mood: better Affect:blunted, less fearful SI:passive, no plan or intent HI:none AH/VH:+AH male voices telling her to band her head on the wall or cut wrist, VH seeing blood/snakes. Delusions:some paranoid delusions Insight/judgment:poor x 2. Memory/cog: alert, oriented x 3. impaired secondary to psych symptoms and underlying cognitive impairments. Patient Appearance: Disheveled Level of Consciousness: Drowsy Patient Behavior: Appropriate Mood Description: Apathetic Affect Description: Apathetic Ability to Follow Directions: Fair Speech Pattern: Appropriate Memory Description: Intact Diagnostics Vital Signs (24Hr): Vital Signs - 24 hr 11/26/20 18:00 11/26/20 20:46 11/27/20 08:50 Temperature 96.4 F L Pulse Rate 104 H 104 H 95 Blood Pressure 96/58 L 100/51 L 102/50 L Body Mass Index 35.4 Labs Results: 11/25/20 14:23 Labs: Laboratory Results - last 48 hr 11/25/20 14:23 WBC 9.1 RBC 4.26 Hgb 12.6 Hct 39.1 MCV 91.8 MCH 29.6 MCHC 32.2 RDW 13.9 Plt Count 217 MPV 12.0 Immature Gran % (Auto) 0.4 Neut % (Auto) 58.1 Lymph % (Auto) 31.7 [place] % (Auto) 8.6 Eos % (Auto) 0.9 Baso % (Auto) 0.3 Lymph # (Auto) 2.9 [place] # (Auto) 0.8 Eos # (Auto) 0.1 Baso # (Auto) 0.0 Abs Immat Gran (auto) 0.04 H Absolute Neuts (auto) 5.3 Absolute Nucleated RBC 0.000 Nucleated RBC % (auto) 0.0 Medications Medications Current Medications Generic Name Dose Route Start Last Admin Trade Name Freq PRN Reason Stop Dose Admin Acetaminophen 650 mg 11/15/20 22:17 11/21/20 16:42 Acetaminophen 325 Mg Tablet PO 650 mg Q6H PRN Administration Headache/Pain Mild Scale (1-3) Al Hydroxide/Mg Hydroxide 30 ml 11/15/20 22:17 11/17/20 23:26 Magnesium Hydrox/Alum Hydrox 30 Ml Oral.Susp PO 30 ml Q6H PRN Administration Heartburn/Nausea Albuterol Sulfate 2 puff 11/14/20 20:32 Albuterol Sulfate 90 Mcg 8 Gm Inhaler INHALE Q4H PRN Shortness Of Breath Bisacodyl 5 mg 11/14/20 21:00 11/26/20 21:41 Bisacodyl 5 Mg Tablet. PO 5 mg BEDTIME LAXMI Administration Clonazepam 0.5 mg 11/15/20 09:00 11/27/20 08:49 Clonazepam 0.5 Mg Tablet PO 0.5 mg DAILY LAXMI Administration Clonazepam 1 mg 11/14/20 21:00 11/26/20 21:41 Clonazepam 1 Mg Tablet PO 1 mg BEDTIME LAXMI Administration Clozapine 300 mg 11/14/20 21:00 11/26/20 21:41 Clozapine 100 Mg Tablet PO 300 mg BEDTIME LAXMI Administration Clozapine 100 mg 11/18/20 09:00 11/27/20 08:48 Clozapine 100 Mg Tablet PO 100 mg DAILY LAXMI Administration Divalproex Sodium 1,000 mg 11/19/20 21:00 11/26/20 21:41 Divalproex Sodium Er 500 Mg Tab.Er.24h PO 1,000 mg BEDTIME LAXMI Administration Docusate Sodium 100 mg 11/14/20 21:00 11/27/20 08:49 Docusate Sodium 100 Mg Capsule PO 100 mg BID LAXMI Administration Fluticasone Propionate 2 puff 11/15/20 08:00 11/27/20 08:49 Fluticasone Propionate 250 Mcg Blst.W.Dev INHALE 2 puff RBID LAXMI Administration Hydroxyzine HCl 25 mg 11/17/20 15:00 11/25/20 14:12 Hydroxyzine Hcl 25 Mg Tablet PO 25 mg Q6H PRN Administration Anxiety Lactulose 20 gm 11/26/20 21:00 11/27/20 09:00 Lactulose 20 Gm/30 Ml Solution PO Not Given BID [facility] Lisinopril 10 mg 11/15/20 09:00 11/27/20 08:50 Lisinopril 10 Mg Tablet PO Not Given DAILY [facility] Protocol Magnesium Hydroxide 30 ml 11/15/20 22:17 11/16/20 01:23 Milk Of Magnesia 30 Ml Oral.Susp PO 30 ml DAILY PRN Administration Constipation Montelukast Sodium 10 mg 11/14/20 21:00 11/26/20 21:41 Montelukast Sodium 10 Mg Tablet PO 10 mg BEDTIME [facility] Administration Nicotine 21 mg 11/15/20 09:00 11/27/20 08:49 Nicotine 21 Mg Patch.Td24 TRANSDERMA 21 mg DAILY [facility] Administration Omeprazole 20 mg 11/15/20 06:30 11/27/20 08:49 Omeprazole 20 Mg Capsule.Dr PO 20 mg DAILY@0630 [facility] Administration Polyethylene Glycol 17 gm 11/14/20 20:32 11/21/20 16:45 Polyethylene Glycol 3350 17 Gm Powd.Pack PO 17 gm DAILY PRN Administration Constipation Sodium Biphosphate/Sodium Phosphate 133 ml 11/21/20 17:34 11/21/20 20:55 Sodium Phosphate,[place]-Dibasic 133 Ml Enema [place] 133 ml ONCE PRN Administration Constipation Tramadol HCl 50 mg 11/19/20 10:37 11/27/20 09:02 Tramadol Hcl 50 Mg Tablet PO 50 mg Q8H PRN Administration pain Allergies Allergies Allergy/AdvReac Type Severity Reaction Status Date / Time aspirin [Aspirin] Allergy Unknown VOMIT Verified 11/11/20 21:31 diazepam [From Valium] Allergy Unknown UNKNOWN Verified 11/11/20 21:31 haloperidol [From Haldol] Allergy Unknown UNKN Verified 11/11/20 21:31 penicillin V Allergy Unknown Unknown Verified 11/11/20 21:31 Penicillins Allergy Unknown UNKN Verified 11/11/20 21:31 risperidone [From Risperdal] Allergy Unknown UNKNOWN Verified 11/11/20 21:31 trazodone [TRAZODONE] Allergy Unknown NAUSEA & Verified 11/11/20 21:31 VOMITING From Haldol Allergy Unknown UNKN Uncoded 11/11/20 21:31 Assessment & Plan Assessment & Plan (1) Schizophrenia: Status: Acute Code(s): F20.9 - Schizophrenia, unspecified Assessment and Plan: pending clozaril level continue current medications. Greater than 50% of the session was spent on counseling and/or coordination of care Reason for contiued inpatient stay Substantial Risk for: inability to function and med/psych decompensation
[2020-11-27 21:45] VITALS: BP 126/80; PULSE 104; TEMP 35.9; O2SAT 95
[2020-11-27] MEDS: Lactulose 20 GM/30 ML SOLUTION PO (22:08)
[2020-11-27] MEDS: cloZAPine 100 MG TABLET 300 MG PO (22:09)
[2020-11-27] MEDS: bisacodyL 5 MG TABLET.DR PO (22:09)
[2020-11-27] MEDS: clonazePAM 1 MG TABLET PO (22:09)
[2020-11-27] MEDS: Montelukast Sodium 10 MG TABLET PO (22:09)
[2020-11-27] MEDS: Divalproex Sodium ER 500 MG TAB.ER.24H 1000 MG PO (22:09)
[2020-11-28 06:00] VITALS: BP 114/59; PULSE 100; TEMP 36.1; O2SAT 93
[2020-11-28] MEDS: Docusate Sodium 100 MG CAPSULE PO ×2 (08:46→22:26)
[2020-11-28] MEDS: traMADoL HCL 50 MG TABLET PO ×2 (08:46→23:09)
[2020-11-28] MEDS: cloZAPine 100 MG TABLET PO (08:46)
[2020-11-28] MEDS: Omeprazole 20 MG CAPSULE.DR PO (08:46)
[2020-11-28] MEDS: clonazePAM 0.5 MG TABLET PO (08:46)
[2020-11-28 08:47] VITALS: BP 114/59; PULSE 100
[2020-11-28] MEDS: lisinopriL 10 MG TABLET PO (08:47)
[2020-11-28] MEDS: Nicotine 21 MG PATCH.TD24 TRANSDERMA (08:48)
[2020-11-28] MEDS: Fluticasone Propionate 250 MCG BLST.W.DEV 2 PUFF INHALE ×2 (09:09→22:45)
--- NOTE | 2020-11-28 17:19 | P.PNPSI_ITS ---
Subjective Subjective Date of Service: 11/28/20 Reason For Visit: Psychosis Interim History: Pt with bright affect. She reports AH intermittently but less distress. She reports feeling less depressed. She denies SI/HI. She reports sleeping better. She has attended groups, social with peers. No acute distressed nor behavioral concerns. No self injurious behaviors. Review of Systems Review of Systems Yes all other systems are reviewed and are negative Constitutional: Reports as per HPI, Reports no additional constitutional comp laints, Reports fatigue, Denies weight gain and Denies weight loss Eyes: Reports as per HPI and Reports no additional eye complaints Reports system reviewed and no additional complaints, except as documented and Reports as per HPI Cardiovascular: Reports as per HPI, Reports no additional cardiovascular complaints, Denies chest pain and Denies dyspnea Respiratory: Reports as per HPI, Reports no additional respiratory complaints, Denies chest congestion, Denies cough and Denies dyspnea Gastrointestinal: Reports as per HPI, Reports no additional gastrointestinal complaints and Reports constipation Musculoskeletal: Denies no additional musculoskeletal complaints and Reports as per HPI Reports system reviewed and no additional complaints, except as documented and Reports as per HPI Psychiatric: Reports no additional psychiatric complaints and Reports as per HPI Endocrine: Reports fatigue Mental Status Exam Mental Status Exam Narrative: Appearance: MO, poor hygiene, in NAD Behavior: somewhat guarded but cooperative Psychomotor: no agitation or retardation noted Speech: clear, normal rate/rhythm/volume, spontaneous TP: tangential TC: AH, feeling freighted but AH Mood: better Affect:blunted, less fearful SI:passive, no plan or intent HI:none AH/VH:+AH male voices telling her to band her head on the wall or cut wrist, VH seeing blood/snakes. Delusions:some paranoid delusions Insight/judgment:poor x 2. Memory/cog: alert, oriented x 3. impaired secondary to psych symptoms and underlying cognitive impairments. Patient Appearance: Disheveled Level of Consciousness: Drowsy Patient Behavior: Appropriate Mood Description: Apathetic Affect Description: Apathetic Ability to Follow Directions: Fair Speech Pattern: Appropriate Memory Description: Intact Judgement: Good Diagnostics Vital Signs (24Hr): Vital Signs - 24 hr 11/27/20 21:45 11/28/20 06:00 11/28/20 08:47 Temperature 96.7 F L 97 F Pulse Rate 104 H 100 100 Blood Pressure 126/80 114/59 L 114/59 L Pulse Oximetry 95 93 Body Mass Index 35.4 Labs Results: 11/25/20 14:23 Medications Medications Current Medications Generic Name Dose Route Start Last Admin Trade Name Julioq PRN Reason Stop Dose Admin Acetaminophen 650 mg 11/15/20 22:17 11/21/20 16:42 Acetaminophen 325 Mg Tablet PO 650 mg Q6H PRN Administration Headache/Pain Mild Scale (1-3) Al Hydroxide/Mg Hydroxide 30 ml 11/15/20 22:17 11/17/20 23:26 Magnesium Hydrox/Alum Hydrox 30 Ml Oral.Susp PO 30 ml Q6H PRN Administration Heartburn/Nausea Albuterol Sulfate 2 puff 11/14/20 20:32 Albuterol Sulfate 90 Mcg 8 Gm Inhaler INHALE Q4H PRN Shortness Of Breath Bisacodyl 5 mg 11/14/20 21:00 11/27/20 22:09 Bisacodyl 5 Mg Tablet. PO 5 mg BEDTIME LAXMI Administration Clozapine 300 mg 11/14/20 21:00 11/27/20 22:09 Clozapine 100 Mg Tablet PO 300 mg BEDTIME LAXMI Administration Clozapine 100 mg 11/18/20 09:00 11/28/20 08:46 Clozapine 100 Mg Tablet PO 100 mg DAILY LAXMI Administration Divalproex Sodium 1,000 mg 11/19/20 21:00 11/27/20 22:09 Divalproex Sodium Er 500 Mg Tab.Er.24h PO 1,000 mg BEDTIME LAMXI Administration Docusate Sodium 100 mg 11/14/20 21:00 11/28/20 08:46 Docusate Sodium 100 Mg Capsule PO 100 mg BID LAXMI Administration Fluticasone Propionate 2 puff 11/15/20 08:00 11/28/20 09:09 Fluticasone Propionate 250 Mcg Blst.W.Dev INHALE 2 puff RBID LAXMI Administration Hydroxyzine HCl 25 mg 11/17/20 15:00 11/25/20 14:12 Hydroxyzine Hcl 25 Mg Tablet PO 25 mg Q6H PRN Administration Anxiety Lactulose 20 gm 11/26/20 21:00 11/28/20 08:50 Lactulose 20 Gm/30 Ml Solution PO Not Given BID LAXMI Lisinopril 10 mg 11/15/20 09:00 11/28/20 08:47 Lisinopril 10 Mg Tablet PO 10 mg DAILY LAXMI Administration Protocol Magnesium Hydroxide 30 ml 11/15/20 22:17 11/16/20 01:23 Milk Of Magnesia 30 Ml Oral.Susp PO 30 ml DAILY PRN Administration Constipation Montelukast Sodium 10 mg 11/14/20 21:00 11/27/20 22:09 Montelukast Sodium 10 Mg Tablet PO 10 mg BEDTIME LAXMI Administration Nicotine 21 mg 11/15/20 09:00 11/28/20 08:48 Nicotine 21 Mg Patch.Td24 TRANSDERMA 21 mg DAILY LAXMI Administration Omeprazole 20 mg 11/15/20 06:30 11/28/20 08:46 Omeprazole 20 Mg Capsule. PO 20 mg DAILY@0630 LAXMI Administration Polyethylene Glycol 17 gm 11/14/20 20:32 11/21/20 16:45 Polyethylene Glycol 3350 17 Gm Powd.Pack PO 17 gm DAILY PRN Administration Constipation Sodium Biphosphate/Sodium Phosphate 133 ml 11/21/20 17:34 11/21/20 20:55 Sodium Phosphate,[place]-Dibasic 133 Ml Enema AR 133 ml ONCE PRN Administration Constipation Allergies Allergies Allergy/AdvReac Type Severity Reaction Status Date / Time aspirin [Aspirin] Allergy Unknown VOMIT Verified 11/11/20 21:31 diazepam [From Valium] Allergy Unknown UNKNOWN Verified 11/11/20 21:31 haloperidol [From Haldol] Allergy Unknown UNKN Verified 11/11/20 21:31 penicillin V Allergy Unknown Unknown Verified 11/11/20 21:31 Penicillins Allergy Unknown UNKN Verified 11/11/20 21:31 risperidone [From Risperdal] Allergy Unknown UNKNOWN Verified 11/11/20 21:31 trazodone [TRAZODONE] Allergy Unknown NAUSEA & Verified 11/11/20 21:31 VOMITING From Haldol Allergy Unknown UNKN Uncoded 11/11/20 21:31 Assessment & Plan Assessment & Plan (1) Schizophrenia: Status: Acute Code(s): F20.9 - Schizophrenia, unspecified Assessment and Plan: Continue current treatment plan: pending clozaril level continue current medications. Greater than 50% of the session was spent on counseling and/or coordination of care Reason for contiued inpatient stay Substantial Risk for: harm to self, inability to function and med/psych decompensation
[2020-11-28 22:00] VITALS: BP 117/72; PULSE 104; TEMP 36.4
[2020-11-28] MEDS: Lactulose 20 GM/30 ML SOLUTION PO (22:25)
[2020-11-28] MEDS: cloZAPine 100 MG TABLET 300 MG PO (22:25)
[2020-11-28] MEDS: Divalproex Sodium ER 500 MG TAB.ER.24H 1000 MG PO (22:26)
[2020-11-28] MEDS: bisacodyL 5 MG TABLET.DR PO (22:26)
[2020-11-28] MEDS: Montelukast Sodium 10 MG TABLET PO (22:27)
--- NOTE | 2020-11-29 | ECG_ITS ---
Test Reason : HYPERKALEMIA Blood Pressure : / mmHG Vent. Rate : 124 BPM Atrial Rate : 124 BPM P-R Int : 136 ms QRS Dur : 074 ms QT Int : 312 ms P-R-T Axes : 071 043 039 degrees QTc Int : 448 ms Sinus tachycardia Otherwise normal ECG When compared with ECG of 15-NOV-2020 14:03, No significant change was found Referred By: Olya Beckwith Electronically Signed By:CECELIA MCDONALD
[2020-11-29] MEDS: Acetaminophen 325 MG TABLET 650 MG PO (00:26)
[2020-11-29] MEDS: hydrOXYzine HCL 25 MG TABLET PO (00:27)
[2020-11-29] MEDS: polyethylene glycoL 3350 17 GM POWD.PACK PO (00:27)
[2020-11-29 06:30] VITALS: BP 90/51; PULSE 107; RESP 18; TEMP 36.6; O2SAT 95
[2020-11-29] MEDS: Omeprazole 20 MG CAPSULE.DR PO (07:13)
[2020-11-29] MEDS: traMADoL HCL 50 MG TABLET PO (09:10)
[2020-11-29] MEDS: Nicotine 21 MG PATCH.TD24 TRANSDERMA (09:11)
[2020-11-29] MEDS: Docusate Sodium 100 MG CAPSULE PO (09:11)
[2020-11-29] MEDS: cloZAPine 100 MG TABLET PO (09:11)
[2020-11-29] MEDS: Fluticasone Propionate 250 MCG BLST.W.DEV 2 PUFF INHALE (09:12)
[2020-11-29 09:16] VITALS: BP 79/51; PULSE 108
[2020-11-29 09:30] VITALS: BP 90/58
[2020-11-29 09:31] VITALS: BP 65/58
[2020-11-29 11:21] LABS: Basophils Percent Auto 0.1 % (0-2); Hematocrit 40.8 % (37-47); Imm Gran Abs Auto 0.07 X10*3/uL (0.00-0.03); Imm Gran Pct Auto 0.5 % (0.0-0.4); Lymphocytes Absolute Auto 0.8 X10*3/uL (1.2-4.9); Lymphocytes Percent Auto 5.8 % (20-40); MANUAL DIFF FLAG SCAN; Mean Corpuscular HGB Conc 31.9 g/dl (31.0-35.0); Mean Corpuscular Hemoglobin 29.3 pg (27.0-33.0); Mean Corpuscular Volume 92.1 fL (80-98); Monocytes Absolute Auto 1.3 X10*3/uL (0.1-1.2); Monocytes Percent Auto 9.4 % (2-11); Neutrophils Percent Auto 84.2 % (45-73); PLT CLUMP 1; Red Blood Count 4.43 X10*6/uL (4.20-5.50); Red Cell Distribution Width 13.8 % (11.0-16.0); SCAN SMEAR FLAG 1
[2020-11-29 11:52] LABS: Alanine Aminotransferase 29 U/L (0-31); Albumin Level 3.9 g/dL (3.5-5.0); Alkaline Phosphatase 62 U/L (39-117); Bilirubin Total 0.4 mg/dL (0.0-1.0); Blood Urea Nitrogen 37 mg/dL (9-16); Creatinine Clr Calc Pharmacy 50.3; Estimated Glomerular Filt Rate 44; Glucose Random 185 mg/dL (60-115); Total Protein 6.4 g/dL (6.5-8.0)
[2020-11-29 12:05] LABS: Anion Gap 22 (12-20); Aspartate Amino Transferase 25 U/L (5-31); Carbon Dioxide 15 mmol/L (22-29); Chloride 96 mmol/L (96-108); Potassium 5.9 mmol/L (3.3-5.1); Sodium 127 mmol/L (135-145)
[2020-11-29 12:15] LABS: Platelet Count 150 X10*3/uL (160-400); White Blood Count 14.3 X10*3/uL (4.8-10.8)
[2020-11-29 12:16] LABS: SLIDE REVIEW VERIFIED
[2020-11-29 13:18] VITALS: BP 84/46; PULSE 121; RESP 20; TEMP 37.2; O2SAT 94
[2020-11-29] MEDS: Sodium Polystyrene Sulfon/Sorb 15 GM/60 ML ORAL.SUSP PO (13:32)
[2020-11-29 14:08] LABS: Venous Blood Gas Refer to POC result
[2020-11-29 14:09] LABS: VBG Base Excess -6.8 mmol/L; VBG HCO3 15 mmol/L (22-26); VBG pCO2 21 mmHg; VBG pH 7.44 (7.32-7.43); VBG pO2 77 mmHg
[2020-11-29 14:11] LABS: Sodium Urine Random < 20.0 mmol/L
[2020-11-29] MEDS: 0.9 % Sodium Chloride 1,000 ML 999 ML IV (14:18)
[2020-11-29 14:22] LABS: Osmolality Urine 411 mosm/kg (373-1093)
[2020-11-29 14:36] LABS: Anion Gap 24 (12-20); Blood Urea Nitrogen 40 mg/dL (9-16); Calcium 9.1 mg/dL (8.4-10.2); Carbon Dioxide 16 mmol/L (22-29); Chloride 95 mmol/L (96-108); Creatinine Clr Calc Pharmacy 52.9; Estimated Glomerular Filt Rate 47; Glucose Random 176 mg/dL (60-115); Magnesium 2.6 mg/dL (1.6-2.6); Potassium 5.8 mmol/L (3.3-5.1); Sodium 129 mmol/L (135-145)
--- NOTE | 2020-11-29 14:36 | PM.PSYDC ---
DS: Providers Provider Date of Service: 11/29/20 Date of admission: 11/15/20 15:13 Primary care physician: Unknown Physician Consults: 11/29/20 12:16 Consult to Hospitalist Routine Consulting Provider: Hospitalist Reason For Exam: abdominal pain DS: Diagnosis Discharge Diagnosis (1) Schizophrenia: Status: Acute DS: Medications Discharge Medications Home Medications: Home Medications Medication Instructions Recorded Confirmed Flovent HFA 2 puff INHALATION BID 06/26/20 11/14/20 albuterol sulfate 2.5 mg INHALATION TID 06/26/20 11/14/20 albuterol sulfate [ProAir HFA] 2 puff INHALATION Q4-6H PRN 06/26/20 11/14/20 bisacodyl 5 mg PO BEDTIME 06/26/20 11/14/20 clonazepam 0.5 mg PO DAILY 06/26/20 11/14/20 clonazepam 1 mg PO BEDTIME 06/26/20 11/14/20 clozapine 50 mg PO DAILY 06/26/20 11/14/20 clozapine 300 mg PO BEDTIME 06/26/20 11/14/20 divalproex 1,500 mg PO BEDTIME 06/26/20 11/14/20 docusate sodium 100 mg PO BID 06/26/20 11/14/20 fluoxetine 20 mg PO QAM 06/26/20 11/14/20 lactulose [Generlac] 10 g PO DAILY PRN 06/26/20 11/14/20 lisinopril 10 mg PO QAM 06/26/20 11/14/20 montelukast 10 mg PO BEDTIME 06/26/20 11/14/20 nicotine 1 patch TRANSDERMAL DAILY 06/26/20 11/14/20 omeprazole 20 mg PO DAILY@0630 06/26/20 11/14/20 polyethylene glycol 3350 17 g PO DAILY PRN 06/26/20 11/14/20 tramadol 1 tab PO Q6H 11/12/20 11/14/20 Discharge Plan Discharge Disposition: Xfer Other Referrals: Dr. Zhao Cradenas, psychiatrist, [facility] [Other] - 12/02/20 11:00 am Physician,Unknown [Primary Care Provider] - Discharge Medications: No Action tramadol 50 mg tablet 1 tab PO Q6H RF: 0 polyethylene glycol 3350 17 gram Powder In Packet 17 g PO DAILY PRN (Reason: Constipation) RF: 0 clozapine 100 mg Tablet 300 mg PO BEDTIME RF: 0 montelukast 10 mg Tablet 10 mg PO BEDTIME RF: 0 clozapine 25 mg Tablet 50 mg PO DAILY RF: 0 omeprazole 20 mg Tablet,Delayed Release (Dr/Ec) 20 mg PO DAILY@0630 RF: 0 albuterol sulfate 2.5 mg /3 mL (0.083 %) Solution For Nebulization 2.5 mg INHALATION TID RF: 0 albuterol sulfate [ProAir HFA] 90 mcg/actuation Hfa Aerosol Inhaler 2 puff INHALATION Q4-6H PRN (Reason: Shortness Of Breath) RF: 0 clonazepam 0.5 mg Tablet 0.5 mg PO DAILY RF: 0 clonazepam 1 mg Tablet 1 mg PO BEDTIME RF: 0 lisinopril 10 mg Tablet 10 mg PO QAM RF: 0 docusate sodium 100 mg Capsule 100 mg PO BID RF: 0 fluoxetine 20 mg Capsule 20 mg PO QAM RF: 0 Flovent HFA 110 mcg/actuation Hfa Aerosol Inhaler 2 puff INHALATION BID RF: 0 bisacodyl 5 mg Tablet 5 mg PO BEDTIME RF: 0 lactulose [Generlac] 10 gram/15 mL Solution 10 g PO DAILY PRN (Reason: Constipation) RF: 0 divalproex 500 mg Tablet Extended Release 24 Hr 1,500 mg PO BEDTIME RF: 0 nicotine 21 mg/24 hr Patch 24 Hour 1 patch TRANSDERMAL DAILY RF: 0 Discharge Orders: Discharge Order (Routine); Ordered 11/29/20 Ordered By: Modesta Xiong Diet: regular diet Activity on Discharge: As tolerated Forms: Patient Portal Discharge page Care Plan Goals: 1. follow up with referrals Health Concerns: transfer for medical reasons Plan of Treatment: continue medical care Assessment: psychiatrically stable Mental Status Exam Mental Status Exam Narrative: Appearance: MO, poor hygiene, in NAD Behavior: somewhat guarded but cooperative Psychomotor: no agitation or retardation noted Speech: clear, normal rate/rhythm/volume, spontaneous TP: tangential TC: AH, feeling freighted but AH Mood: better Affect:blunted, less fearful SI:passive, no plan or intent HI:none AH/VH:+AH male voices telling her to band her head on the wall or cut wrist, VH seeing blood/snakes. Delusions:some paranoid delusions Insight/judgment:poor x 2. Memory/cog: alert, oriented x 3. impaired secondary to psych symptoms and underlying cognitive impairments. Data Data Completed and Pending Completed studies during hospitalization [Text1]: 11/25/20 11/29/20 11/29/20 14:23 11:07 11:07 WBC 9.1 14.3 H RBC 4.26 4.43 Hgb 12.6 13.0 Hct 39.1 40.8 MCV 91.8 92.1 MCH 29.6 29.3 MCHC 32.2 31.9 RDW 13.9 13.8 Plt Count 217 150 L D MPV 12.0 Not Reportable Immature Gran % (Auto) 0.4 0.5 H Neut % (Auto) 58.1 84.2 H Lymph % (Auto) 31.7 5.8 L [place] % (Auto) 8.6 9.4 Eos % (Auto) 0.9 0.0 Baso % (Auto) 0.3 0.1 Lymph # (Auto) 2.9 0.8 L [place] # (Auto) 0.8 1.3 H Eos # (Auto) 0.1 0.0 Baso # (Auto) 0.0 0.0 Abs Immat Gran (auto) 0.04 H 0.07 H Absolute Neuts (auto) 5.3 12.0 H Absolute Nucleated RBC 0.000 0.000 Nucleated RBC % (auto) 0.0 0.0 Smear Tech's Comments VERIFIED VBG pH VBG pCO2 VBG pO2 VBG HCO3 VBG O2 Saturation VBG Base Excess Sodium 127 L Potassium 5.9 H D Chloride 96 Carbon Dioxide 15 L Anion Gap 22 H BUN 37 H D Creatinine 1.25 Estim Creat Clear Calc 50.3 Estimated GFR 44 Random Glucose 185 H Lactic Acid Calcium 9.0 D Magnesium Total Bilirubin 0.4 AST 25 D ALT 29 Alkaline Phosphatase 62 Total Creatine Kinase Total Protein 6.4 L Albumin 3.9 Urine Osmolality Ur Random Sodium 11/29/20 11/29/20 11/29/20 13:20 13:20 13:56 WBC RBC Hgb Hct MCV MCH MCHC RDW Plt Count MPV Immature Gran % (Auto) Neut % (Auto) Lymph % (Auto) [place] % (Auto) Eos % (Auto) Baso % (Auto) Lymph # (Auto) [place] # (Auto) Eos # (Auto) Baso # (Auto) Abs Immat Gran (auto) Absolute Neuts (auto) Absolute Nucleated RBC Nucleated RBC % (auto) Smear Tech's Comments VBG pH VBG pCO2 VBG pO2 VBG HCO3 VBG O2 Saturation VBG Base Excess Sodium Potassium Chloride Carbon Dioxide Anion Gap BUN Creatinine Estim Creat Clear Calc Estimated GFR Random Glucose Lactic Acid Calcium Magnesium Total Bilirubin AST ALT Alkaline Phosphatase Total Creatine Kinase 92 Total Protein Albumin Urine Osmolality 411 Ur Random Sodium < 20.0 11/29/20 11/29/20 11/29/20 13:56 13:56 14:03 WBC RBC Hgb Hct MCV MCH MCHC RDW Plt Count MPV Immature Gran % (Auto) Neut % (Auto) Lymph % (Auto) [place] % (Auto) Eos % (Auto) Baso % (Auto) Lymph # (Auto) [place] # (Auto) Eos # (Auto) Baso # (Auto) Abs Immat Gran (auto) Absolute Neuts (auto) Absolute Nucleated RBC Nucleated RBC % (auto) Smear Tech's Comments VBG pH 7.44 H VBG pCO2 21 VBG pO2 77 VBG HCO3 15 L VBG O2 Saturation 94.0 VBG Base Excess -6.8 Sodium Pending Potassium Pending Chloride Pending Carbon Dioxide Pending Anion Gap Pending BUN Pending Creatinine Pending Estim Creat Clear Calc Pending Estimated GFR Pending Random Glucose Pending Lactic Acid Pending Calcium Pending Magnesium Pending Total Bilirubin AST ALT Alkaline Phosphatase Total Creatine Kinase Total Protein Albumin Urine Osmolality Ur Random Sodium DS: Summary Hospital Course Hospital Course: Ms. Beckwith is a 55 year old woman with hx of schizophrenia. She was brought via EMS to [facility] ED on 11/14/2020 on a section 12 from [facility] due to increase AH, hitting head on wall due to CAH. Pt reported seeing blood on the wall, snakes and having CAH telling her to either cut herself or hit her head on the wall. Her utox was negative. On the unit, pt initially somnolent. She reports not sleeping for about 4 nights. She reports last night able to sleep a little bit better. Pt reports hearing male voices, telling her to hurt herself. She reports increased in AH for past 4 days. She reports taking medications as prescribed. Pt has [facility] that comes to her house- pt lives in [place]- weekly and fills pillbox. Pt endorses increased depression due to increase AH. Pt does note that if voices decrease, she wouldn't be feeling so depressed, anxious and overwhelmed. She reports passive suicidal ideation but denies any plan or intent. She denies HI. She reports feeling safe in the unit. Past Psychiatric History: Inpt: more than 15 inpt admissions, mostly at [facility] and [facility]. OP: [facility], [facility] Cardenas, [facility] and Adrienne Beckwith. Past medication trials: clozaril, prozac, clonazepam. HOSPITAL COURSE On the unit, Ms. Beckwith initally presented as guarded and fearful She endorsed VH, and CAH telling her to band head on wall or cut her wrist. She denied SI/HI, but reported that if intensity of CAH continued she couldn't stop herself from self-harming. Collateral information was gathered from her long terms psychiatric prescriber Zhao Cardenas who reported pt has episodes of intense CAH that tend to resolve mostly with structure and containment as she has been on clozaril, prozac and depakote for a long time. We did discussed effects of prozac/antidepressants on psychosis, and decision was to discontinue Prozac. Morning dose of clozaril was increased from 50mg po to 100mg po daily. Nighttime dose of clozaril was continued 300mg po qhs. Ms. Beckwith gradually presented as less guarded and less fearful. She reported less AH and denied that they were CAH in nature. She denied SI/HI. She did not have any signs of aggression towards self or others. She was sleeping and eating well. One day prior to discharge, pt had episode of loose stool. Note that with clozaril pt has struggled with constipation. She also reported non specific abdominal pain. She was hypotensive BP 65/58, HR108, afebrile. Labs were completed stat- showed elevation in WBC 14, PLt lowered to 150, hyponatremia (125), hyperkalemia (5.9), BUN elevated 37, Cr 1.25 (increase from 0.66 on 11/17). Pt seen by hospitalist and decision to transfer to medical floor for further management and evaluation. Pt will be transfered to medical floor but is psychiatrically stable no need for sitter. Time spent discussing smoking cessation with patient: 3 to 10 minutes Status at Discharge Cognitive/behavioral status at discharge: Pt is psychiatrically stable in that she denied CAH, no SI/HI. No self injurious behaviors. No signs of aggression towards self or others. However, presents with dizziness, fatigued, malaise Functional status at discharge: independent ambulation Overall status at discharge: patient is back to baseline (psychiatrically stable and back to baseline) Time Spent with Patient Time attestation: Total time spent providing and/or coordinating discharge services: Time spent: Greater than 30 minutes
[2020-11-29 14:38] LABS: Lactic Acid 5.3 mmol/L (0.5-2.0)
--- NOTE | 2020-11-29 14:58 | PC.NURSE ---
Pt REPORTED FEELING DIZZY AND WEAK THIS AM. BP 90/58 P108, O2 SAT 94%, T99.0. MD NOTIFIED, STAT LABS, URINE ORDERED WITH IV NS 1000CC. PT K 5.9, LACTIC ACID CRITICAL AT 5.3 MD NOTIFIED. MD SEEN PT AND N.O FOR PT TO TRANSFER TO MEDICAL UNIT. BP 84/52 P 118 @ 1400. PT REMAINS FEELING DIZZY, WEAK AND REPORTS ABDOMINAL DISCOMFORT. PT ON CONSTANT OBSERVATION WITH IV.
[2020-11-29 15:36] VITALS: BP 95/53; PULSE 129; RESP 22; TEMP 37; O2SAT 99
[2020-11-29 16:01] LABS: Reflex Lactate? Lactic Acid Added
[2020-11-29 16:56] LABS: ~Lactic Acid-LAB USE ONLY 5.6 mmol/L (0.5-2.0)
[2020-11-29 18:24] LABS: Reflex Lactate? 2 Y
== END 2020-11-29 16:10 | disposition other institution (70) | DRG 750 ==
LOC: HO.ED 11-15 01:02 → HO.PM5 11-15 22:55
PROVIDERS: Nurse Practitioner Acute Care; Physician Assistant; Admitting Provider Psychiatry & Neurology Psychiatry; Emergency Provider Emergency Medicine Emergency Medical Services; Visit Provider Social Worker
DX: F20.9 Schizophrenia, unspecified (principal); R45.851 Suicidal ideations; E78.5 Hyperlipidemia, unspecified; I10 Essential (primary) hypertension; J44.9 Chronic obstructive pulmonary disease, unspecified; M19.90 Unspecified osteoarthritis, unspecified site; Z20.822 Contact with and (suspected) exposure to COVID-19; Z79.51 Long term (current) use of inhaled steroids; Z88.0 Allergy status to penicillin; Z88.6 Allergy status to analgesic agent; Z79.899 Other long term (current) drug therapy
CPT/HCPCS: 36415; 80048; 80053; 80061; 80159; 80164; 80307; 81001; 82550; 83036; 83605; 83735; 83935; 84300; 84443; 85025; 87635; 93005; 99285

== ENCOUNTER 2020-11-29 16:16 | Inpatient (IN) | payer MEDICAID, SELFPAY ==
--- NOTE | ~2020-11-29 | CT_ITS ---
EXAMINATION: CT ABDOMEN AND PELVIS WITHOUT CONTRAST CLINICAL INFORMATION: abdominal pain, diarrhea . COMPARISON: 05/14/2020. TECHNIQUE: Multidetector volumetric imaging was performed from the superior aspect of the liver through the pubic symphysis without contrast per request. Sagittal and coronal reformatted images were obtained on the technologist workstation. This CT examination was performed using dose optimization techniques as appropriate, variously including the following: *Automated exposure control *Adjustment of mA and/or kV according to patient size (this includes techniques or standardized protocols for targeted exams where dose is matched to indication/reason for exam; i.e. extremities or head) *Use of iterative reconstruction technique DLP: 654 mGy-cm. FINDINGS: LUNG BASES: Minimal left basilar atelectasis. LIVER, GALLBLADDER, BILIARY TREE: Heterogeneity to the liver suggesting diffuse fatty infiltration. There is relative atrophy the right lobe the liver with some compensatory hypertrophy of the left lobe. No obvious hepatic lesions seen on this noncontrast study. No biliary ductal dilatation. The gallbladder is unremarkable with no evidence of radiopaque gallstones, gallbladder wall thickening, or obvious pericholecystic inflammatory changes. PANCREAS: Unremarkable. SPLEEN: Unremarkable. ADRENAL GLANDS: Unremarkable. KIDNEYS AND URETERS: The kidneys are normal in size, shape, and attenuation. No hydronephrosis, hydroureter, or calculi seen. No perinephric stranding. BLADDER: Unremarkable. GASTROINTESTINAL TRACT: There is diffusely abnormal colonic wall thickening extending from the splenic flexure to the sigmoid colon. This long segment area of wall thickening suggests underlying fractures or inflammatory causes of colitis. This area had a more normal appearance on the prior CT scan. Colon is markedly redundant. ABDOMINAL WALL: No significant hernia is appreciated. LYMPHOVASCULAR STRUCTURES: No lymphadenopathy. The aorta is unremarkable.. PELVIC VISCERA: Unremarkable. OSSEUS STRUCTURES: Unremarkable. CT/CT abdomen pelvis wo con IMPRESSION: Markedly redundant colon however there is new diffuse colonic wall thickening extending from the splenic flexure to the sigmoid colon. With this distribution, a nonspecific infectious or inflammatory colitis would be favored. No obvious obstructive changes.
--- NOTE | ~2020-11-29 | CT_ITS ---
EXAMINATION: CT ABDOMEN AND PELVIS WITH CONTRAST CLINICAL INFORMATION: Abdominal pain COMPARISON: November 29, 2020 and May 14, 2020 TECHNIQUE: Multidetector volumetric images were obtained from the superior aspect of the liver through the pubic symphysis following administration 85 mL of Omnipaque 350 intravenous contrast. Sagittal and coronal reformatted images were obtained on the technologist's workstation. Oral contrast: No This CT examination was performed using dose optimization techniques as appropriate, variously including the following: *Automated exposure control *Adjustment of mA and/or kV according to patient size (this includes techniques or standardized protocols for targeted exams where dose is matched to indication/reason for exam; i.e. extremities or head) *Use of iterative reconstruction technique DLP: 599 mGy-cm FINDINGS: LUNG BASES: There is some left basilar atelectasis present. No pleural or pericardial effusion. LIVER, GALLBLADDER, AND BILIARY TREE: There is diffuse fatty infiltration of the liver. No intrahepatic bile duct dilatation is seen. No focal mass is identified. The gallbladder is unremarkable with no evidence of radiopaque gallstones, gallbladder wall thickening, or obvious pericholecystic inflammatory changes. PANCREAS: Unremarkable. SPLEEN: Unremarkable. ADRENAL GLANDS: Unremarkable. KIDNEYS AND URETERS: The kidneys are normal in size, shape, and attenuation. No hydronephrosis, hydroureter, or calculi seen. No perinephric stranding. BLADDER: Unremarkable. GASTROINTESTINAL TRACT: No significantly dilated loops of bowel are evident and no obstructive pattern is seen. No free air is noted. There is a small amount of free fluid present about the pelvis tracking along the left lateral conal fascia. This is a new finding compared to study of November 29, 2020. There is bowel wall thickening with pericolonic inflammatory change from the level of the splenic flexure to the rectosigmoid. This is consistent with infectious or inflammatory colitis the superior, inferior, and celiac arteries appear to be patent and findings unlikely to be related to ischemic colitis. Appendix is not identified. ABDOMINAL WALL: No significant hernia is appreciated. LYMPH NODES: There is a 1 cm short axis left periaortic lymph node just below the level of the left renal vein. VASCULAR: Portal vein patent. No portal venous gas. Visceral vessels appear patent. PELVIC VISCERA: No abnormal pelvic mass appreciated. OSSEOUS STRUCTURES: No destructive bony lesions identified. CT/CT abdomen pelvis w con IMPRESSION: Continued colonic wall thickening and pericolonic inflammatory streaking involving the left colon consistent with colitis of infectious or inflammatory etiology. Development of small amount of free fluid. No evidence of free air or obstructive pattern. Diffuse fatty infiltration of the liver.
--- NOTE | ~2020-11-29 | XR_ITS ---
EXAMINATION: XR CHEST CLINICAL INFORMATION: Fever COMPARISON: CT abdomen 11/29/2020, chest radiographs 06/25/2020, 06/24/2018 TECHNIQUE: Frontal view of the chest was obtained. FINDINGS: There is subtle airspace opacity left base retrocardiac region partially obscuring the mid to lateral diaphragm. There are is coarsening of the bronchiolar markings right infrahilar region without lobar segmental consolidation or effusion. The heart is normal in size. The vascularity is normal. XR/XR chest 1V IMPRESSION: Airspace opacity left base, likely related to pneumonia. Coarsening bronchiolar markings lower zones.
--- NOTE | ~2020-11-29 | XR_ITS ---
EXAMINATION: XR CHEST CLINICAL INFORMATION: Oxygen desaturation COMPARISON: 12/02/2020 TECHNIQUE: Frontal view of the chest was obtained. FINDINGS: Left basilar airspace opacity partially obscures the left hemidiaphragm. No discrete consolidation. No pleural effusion or pneumothorax. Normal heart size and pulmonary vascularity. XR/XR chest 1V IMPRESSION: Left basilar airspace opacity, likely subsegmental atelectasis as seen on the prior CT.
--- NOTE | 2020-11-29 16:21 | P.EN_ITS ---
Event Note Date of Service: 11/29/20 Event Note: Patient seen and examined independently and I was present during whitaker portion of E/M service. Agree with Tierra Beckwith NP's history, physical, assessment, and plan with the following additions and/or changes. This is a 55 yo F being treated on [facility]. Medical team was called to evaluate for abdominal pain. Patient seen and examined on M5 prior to transfer down to the medical floor. Per [facility] staff who know her, last few dayss her oral intake as decreased and she has been having diarrhea. Patient herself reports L-sided abdominal pain which is achy in nature. She reports poor appetite, stating that she feels full after eating a small amount. She reports her diarrhea is non- bloody. Exam vitals - Bp 93/53, HR 129, no fever Gen - appears tired, but alert CVS - S1S2 Lungs - diminished Abdomen - soft with mild L-sided tenderness to palpation; no rebound or guarding Ext - no edema Neuro - non-focal; aaox3 A/P 55 yo F who is being transferred from inpatient psych to the medical floor for diarrhea, abdominal pain and hypotension. 1. Hypotension suspected from hypovoluemia from diarrhea agressive fluid resusication - received 1L M5, will give another 1L NS bolus followed by LR @ 100 cc/hr 2. Abdominal pain with elevated lactate, possibly from dehydration but could be ? ischemic colitis check CT stat GI / Gen. Surg consults pending CT results 3. Metabolic acidosis suspected from diarrhea IVF as above, if bicarb drops, may need bicarb drip 4. HyperK given kayexlate on M[facility], repeat K checked too early , prior to BM -- will repeat another this afternoon. keep on telemetry remainder per H&P
[2020-11-29 16:51] VITALS: BP 101/56; PULSE 132; RESP 19; TEMP 36.2; O2SAT 96
[2020-11-29] MEDS: 0.9 % Sodium Chloride 1,000 ML 999 ML IVCONT ×2 (17:33→18:35)
[2020-11-29 18:00] LABS: Glucose Urine UA NEG (NEG); Leukocyte Esterase Urine NEG (NEG); Nitrite Urine NEG (NEG); PH 5.5 (5.0-8.0); Urine Blood NEG (NEG); Urine Ketones NEG (NEG); Urine Protein NEG (NEG-TRACE)
[2020-11-29 18:05] LABS: Appearance Urine CLEAR; Color Urine AMBER
[2020-11-29 18:11] LABS: Lactic Acid 4.1 mmol/L (0.5-2.0)
[2020-11-29] MEDS: Enoxaparin Sodium 40 MG/0.4 ML SYRINGE SUBCUT (18:34)
--- NOTE | 2020-11-29 19:04 | HP_ITS ---
DATE OF SERVICE: 11/29/2020 CHIEF COMPLAINT: Low blood pressure. HISTORY OF PRESENT ILLNESS: A 55-year-old woman who was admitted to for psychiatric care, developed hypotension and abdominal pain. The hospitalists were consulted and it was determined that the patient should be transferred for further medical evaluation. The patient reported some diffuse mid abdominal pain with some dizziness and diarrhea. She any loss of consciousness, chest pain, shortness of breath, nausea, or vomiting. She reported her symptoms started today. She was noted to have a blood pressure as low as 65/53 this morning. Her white blood cell count was elevated at 14.3, platelet count a 150. Sodium 129, potassium 5.8, bicarb 16, anion gap 24, BUN 40, creatinine 1.19, lactic acid 5.6. Urinalysis is pending. The patient was given 1 L of IV fluid bolus, blood pressure did improve. She will be admitted for further management and treatment of acute hypotension and abdominal pain. PAST MEDICAL HISTORY: 1. Anxiety. 2. Arthritis. 3. Chronic mental illness. 4. COPD. 5. Hypertension. 6. Breast mass. 7. Hyperlipidemia. 8. Schizophrenia. 9. GERD. 10. Obesity. PAST SURGICAL HISTORY: 1. Appendectomy. 2. Right knee replacement. 3. Bilateral tubal ligation. SOCIAL HISTORY: Reported that she quit smoking 3 years ago, had been smoking 2 packs a day. Denies alcohol or illicit drug use. Lives in long-term care. FAMILY HISTORY: Mother of stroke. ALLERGIES: ASPIRIN, DIAZEPAM, HALOPERIDOL, PENICILLIN, RISPERIDONE, TRAZODONE. MEDICATIONS: 1. Albuterol sulfate nebulizer. 2. Albuterol inhaler 2 puffs every 4-6 hours. 3. Alprazolam 0.25 mg at bedtime. 4. Bisacodyl 5 mg at bedtime. 5. Klonopin 1 tab daily. 6. Klonopin 0.5 mg daily. 7. Klonopin 1 mg at bedtime. 8. Clotrimazole b.i.d. 9. Clozapine 100 mg at bedtime. 10. Clozapine 25 mg 2 tabs daily. 11. Depakote ER 500 mg take 3 tabs at night. 12. . 13. Docusate sodium 100 mg twice a day. 14. Docusate sodium 1 cap twice daily. 15. Flovent. 16. Fluconazole. 17. Prozac 20 mg daily. 18. Lactulose 15 mg daily as needed. 19. Lisinopril 10 mg daily in the evening. 20. Montelukast sodium 10 mg daily. 21. Nicotine patch at bedtime. 22. Omeprazole 20 mg daily. 23. Polyethylene glycol. 24. Prednisone 20 mg daily. 25. ProAir 2 puffs daily q.4-6 hours. 26. Tramadol 50 mg every 6 hours as needed for pain. REVIEW OF SYSTEMS: CONSTITUTIONAL: Denies any recent fever, chills, decrease in appetite. RESPIRATORY: Denies any shortness of breath, cough, or sputum production. CARDIOVASCULAR: Denies any chest pain, orthopnea, PND, or edema. GASTROINTESTINAL: Denies any dysphagia, nausea, vomiting. Reports of abdominal pain and diarrhea. GENITOURINARY: Denies any dysuria, frequency, hematuria. MUSCULOSKELETAL: Denies any joint pain or swelling. NEUROPSYCH: Denies any weakness or seizures. All other systems are reviewed and are negative. PHYSICAL EXAMINATION: CONSTITUTIONAL: Resting in bed. No acute distress. VITAL SIGNS: 97.1, 132, 19, 101/56, 96% on room air. SKIN: Intact without rash or open sores. HEENT: Head is normocephalic, atraumatic. Eyes, pupils are PERRLA. Sclerae anicteric. Mouth and Throat: Mucous membranes are intact and moist. NECK: Supple. No lymphadenopathy. No JVD noted. CHEST: Clear to auscultation without wheezes, rhonchi, or rales. HEART: Regular rate and rhythm. Clear S1, S2. No murmurs, rubs, gallops. ABDOMEN: Positive bowel sounds. Abdomen is tender to right lower quadrant. NEURO: The patient is alert and oriented x3. Cranial nerves II to XII are grossly intact without focal deficits. LABORATORY DATA: WBC 14.3, hemoglobin 13.0, hematocrit 40.8, platelets 150. Sodium is 129, potassium 5.8, chloride is 95, bicarb is 16, BUN is 40, creatinine is 1.19. Lactic acid is 5.6. ASSESSMENT AND PLAN: A 55-year-old woman who is being admitted with hypotension, dizziness, and abdominal pain. This started suddenly within the last 24 hours. The patient reports diarrhea. She has not had any fever; however, she has had tachycardia and hypotension. Appears to be systemic inflammatory response syndrome without any source as of yet. 1. Systemic inflammatory response syndrome. Tachycardia, tachypnea, leukocytosis, lactic acidosis. No source of infection. 2. Hypotension. May be related to dehydration versus infection. No source noted. a. Received 1 IV fluid bolus. Continue maintenance IV fluids, trend blood pressure closely. b. Hold lisinopril. 3. Hyponatremia. Likely related to dehydration. a. IV fluids. Follow BMP. 4. Hyperkalemia. Received Kayexalate while in M5. a. Trend BMP. 5. Diarrhea. Denies any recent use of antibiotics or history of colitis. a. Abdominal CAT scan. b. Stool studies, C diff. 6. Gastroesophageal reflux disease. a. Continue PPI. 7. Mental health. a. Continue medications. b. Plan was for discharge from M5 to home, therefore when medically cleared. The patient will likely be discharged home. 8. Asthma. a. Continue albuterol. 9. Deep vein thrombosis prophylaxis with Lovenox. 10. Attending, Dr. Leyva. AUGUSTUS Santos MD JR/MODL / [phone] Attending Attestation; Patient seen and examined independently and I was present during whitaker portion of E/M service. Agree with Tierra Beckwith NP's history, physical, assessment, and plan. hypotesion from diarrhea, no foci of infection identified as as such meets SIRS but not sepsis criteria. Aggressive IVF and check CT abd. Send stool studies. GI/Gen surg consult pending ct abd. (see separate event note for full details) [facility]
[2020-11-29 19:13] VITALS: BP 110/55; PULSE 135; RESP 20; TEMP 36.7; O2SAT 94
[2020-11-29 19:42] LABS: Reflex Lactate? Lactic Acid Added
[2020-11-29 20:16] LABS: Lactic Acid 3.3 mmol/L (0.5-2.0)
[2020-11-29 21:40] LABS: Reflex Lactate? Lactic Acid Added
[2020-11-29 23:35] LABS: ~Lactic Acid-LAB USE ONLY 2.5 mmol/L (0.5-2.0)
[2020-11-30] VITALS (10 sets, daily range): BP systolic 94–130; BP diastolic 37–70; PULSE 105–132; RESP 14–21; TEMP 36.4–37.4; O2SAT 91–98; BMI 35.4
[2020-11-30 01:03] LABS: Reflex Lactate? 2 Y
[2020-11-30] MEDS: 0.9 % Sodium Chloride Flush 3 ML SYRINGE IVFLUSH (01:36)
[2020-11-30 01:40] LABS: ~Lactic Acid-LAB USE ONLY 1.7 mmol/L (0.5-2.0)
[2020-11-30] MEDS: traMADoL HCL 50 MG TABLET 25 MG PO ×4 (02:07→21:42)
[2020-11-30] MEDS: Lactated Ringers 1,000 ML 100 ML IVCONT ×2 (02:08→15:46)
[2020-11-30 06:57] LABS: Basophils Percent Auto 0.1 % (0-2); Eosinophils Percent Auto 0.2 % (0-4); Hematocrit 34.8 % (37-47); Hemoglobin 11.2 g/dl (12.0-16.0); Imm Gran Abs Auto 0.05 X10*3/uL (0.00-0.03); Imm Gran Pct Auto 0.4 % (0.0-0.4); Lymphocytes Absolute Auto 1.6 X10*3/uL (1.2-4.9); Lymphocytes Percent Auto 12.6 % (20-40); MANUAL DIFF FLAG SCAN; Mean Corpuscular HGB Conc 32.2 g/dl (31.0-35.0); Mean Corpuscular Volume 90.2 fL (80-98); Mean Platelet Volume 11.9 fL (9.4-12.3); Monocytes Absolute Auto 2.9 X10*3/uL (0.1-1.2); Monocytes Percent Auto 23.4 % (2-11); Neutrophils Absolute Auto 7.9 X10*3/uL (2.0-8.3); Neutrophils Percent Auto 63.3 % (45-73); Platelet Count 201 X10*3/uL (160-400); Red Blood Count 3.86 X10*6/uL (4.20-5.50); Red Cell Distribution Width 14.4 % (11.0-16.0); SCAN SMEAR FLAG 1; White Blood Count 12.5 X10*3/uL (4.8-10.8)
[2020-11-30 07:31] LABS: Anion Gap 12 (12-20); Blood Urea Nitrogen 28 mg/dL (9-16); Calcium 7.8 mg/dL (8.4-10.2); Carbon Dioxide 24 mmol/L (22-29); Chloride 101 mmol/L (96-108); Creatinine Clr Calc Pharmacy 92.4; Estimated Glomerular Filt Rate > 60; Glucose Random 130 mg/dL (60-115); Potassium 4.4 mmol/L (3.3-5.1); Sodium 133 mmol/L (135-145)
[2020-11-30 07:56] LABS: SLIDE REVIEW VERIFIED
[2020-11-30] MEDS: metroNIDAZOLE/NS 500 MG/100 ML PIGGYBACK 100 MG IV ×2 (08:20→15:45)
[2020-11-30] MEDS: FLUoxetine HCl 20 MG CAPSULE PO (10:02)
[2020-11-30] MEDS: clonazePAM 0.5 MG TABLET PO (10:03)
[2020-11-30] MEDS: cloZAPine 25 MG TABLET 50 MG PO (10:03)
[2020-11-30] MEDS: levoFLOXacin/D5W 500 MG/100 ML PIGGYBACK 100 MG IV (10:03)
--- NOTE | 2020-11-30 10:07 | HO.PM.IMPN ---
Subjective Subjective Date of Service: 11/30/20 Interval History: seen and examined this AM still has abdominal pain, no diarrhea reported per staff therapist reports dizziness resolved denies any fevers or chills ROS General - no fevers or chills Cardiovascular - no chest pain Respiratory - no shortness of breath or cough Abdominal- left sided abdominal pain Physical Exam Vital Signs: Vital Signs: Last Vital Signs Temp 98.3 F 11/30/20 07:53 Pulse 117 H 11/30/20 07:53 Resp 21 H 11/30/20 07:53 BP 104/59 L 11/30/20 07:53 Pulse Ox 92 11/30/20 07:53 Body Mass Index 35.4 Const: Other: General - appears uncomfortable Cardiovascular - tachycardic in the 110s Lungs - normal respiratory effort, clear to auscultation bilaterally, no wheezing Abdomen - +left sided abdominal pain, no rebound or guarding Extremities - no edema bilaterally Neuro - awake and alert, no focal deficits Objective Data Current Medications Generic Name Dose Route Start Last Admin Trade Name Julioq PRN Reason Stop Dose Admin Acetaminophen 650 mg 11/29/20 16:46 Acetaminophen 325 Mg Tablet PO Q6H PRN Pain, Mild (Pain Scale 1-3) Albuterol Sulfate 2.5 mg 11/30/20 09:00 11/30/20 07:57 Albuterol Sulfate (0.083%) 2.5 Mg/3 Ml Vial.Neb INHALE Not Given RTID LAXMI Albuterol Sulfate 2 puff 11/30/20 07:37 Albuterol Sulfate 90 Mcg 8 Gm Inhaler INHALE Q4H PRN Shortness Of Breath Clonazepam 0.5 mg 11/30/20 09:00 Clonazepam 0.5 Mg Tablet PO DAILY LAXMI Clonazepam 1 mg 11/30/20 21:00 Clonazepam 1 Mg Tablet PO BEDTIME LAXMI Clozapine 50 mg 11/30/20 09:00 Clozapine 25 Mg Tablet PO DAILY LAXMI Clozapine 300 mg 11/30/20 21:00 Clozapine 100 Mg Tablet PO BEDTIME LAXMI Divalproex Sodium 1,500 mg 11/30/20 21:00 Divalproex Sodium Er 500 Mg Tab.Er.24h PO BEDTIME LAXMI Enoxaparin Sodium 40 mg 11/29/20 18:00 11/29/20 18:34 Enoxaparin Sodium 40 Mg/0.4 Ml Syringe SUBCUT 40 mg Q24H LAXMI Administration Fluoxetine HCl 20 mg 11/30/20 09:00 Fluoxetine Hcl 20 Mg Capsule PO DAILY [facility] Fluticasone Propionate 1 puff 11/30/20 08:00 11/30/20 07:57 Fluticasone Propionate 100 Mcg Blst.W.Dev INHALE Not Given RBID [facility] Lactated Ringer's 1,000 mls @ 100 mls/hr 11/29/20 16:46 11/30/20 02:08 Lr IVCONT 100 mls/hr .Q10H LAXMI Administration Levofloxacin 500 mg in 100 mls @ 100 mls/hr 11/30/20 07:45 Levaquin IV Q24H [facility] Metronidazole 500 mg in 100 mls @ 100 mls/hr 11/30/20 07:45 11/30/20 08:20 Flagyl IV 100 mls/hr Q8H LAXMI Administration Montelukast Sodium 10 mg 11/30/20 21:00 Montelukast Sodium 10 Mg Tablet PO BEDTIME [facility] Nicotine 21 mg 11/30/20 09:00 Nicotine 21 Mg Patch.Td24 TRANSDERMA DAILY [facility] Omeprazole 20 mg 11/30/20 07:45 11/30/20 08:23 Omeprazole 20 Mg Capsule. PO Not Given DAILY@0630 [facility] Pharmacy Consult 1 each 11/29/20 16:58 Consult Rx Perform Med Rec MISCELLANE ONCE PRN Consult order Sodium Chloride 3 ml 11/30/20 00:00 11/30/20 07:51 0.9 % Sodium Chloride Flush 3 Ml Syringe IVFLUSH Not Given QSHIFT [facility] Tramadol HCl 25 mg 11/30/20 01:50 11/30/20 02:07 Tramadol Hcl 50 Mg Tablet PO 25 mg Q6H PRN Administration Breakthrough Pain Labs CBC & Chem 7: 11/30/20 06:30 11/30/20 06:30 Assessment and Plan (1) Colitis: Status: Acute Assessment and Plan: This is a 55-year-old female was being treated on the inpatient psych floor and was subsequently transferred down to the medical floor for abdominal pain and profound hypotension as well as lactic acidosis. 1. Colitis As evidenced on the CT scan. Infectious versus inflammatory versus ischemic Empiric IV Flagyl and Levaquin No further diarrhea, however send stool studies if reoccurs Will get GI involved to see if any endoscopic evaluation is needed 2. Hypotension Suspected hypovolemic and not secondary to sepsis or septic shock Improved with IV fluids Still remains slightly tachycardic will continue with IV hydration 3. Hyponatremia again hypovolemic and improved with fluids 4. Lactic acidosis From dehydration and not sepsis Resolved with IV fluids 5. Hyperkalemia Resolved 6. Mood Continue the medications she was being treated with on M5 Full code DVT prophylaxis, Lovenox
[2020-11-30] MEDS: Nicotine 21 MG PATCH.TD24 TRANSDERMA (10:08)
--- NOTE | 2020-11-30 11:18 | PM.GICN ---
History of Present Illness Data of Consult Service Date: 11/30/20 Primary Care Provider: Unknown Physician HPI Reason for consult: 'colitis' 55-year-old woman w hx of schizophrenia who I am asked to see for assessment of colitis She was initially admitted to for psychiatric issues and was having meds titrated Yesterday she then developed diffuse abdominal pain with low BP and diarrhea with dizziness. Passing loose stools, no blood being seen in stools Appetite is poor, denies nausea or vomiting Her BP was low but has since recovered. she can't recall having had colonoscopy or similar sx in the past, not on nsaids No FH of CRC LABS: white blood cell count was elevated at 14.3, platelet count a 150. Sodium 129, potassium 5.8, bicarb 16, anion gap 24, BUN 40, creatinine 1.19, lactic acid 5.6 (lactate coming down) CT Imaging: redundant colon with inflammatory colonic changes from spelnic flexure to left colon A/P--Hypotension and probable ischemic colitis, could be due to psych meds, or results of constipation worsened by her redundant colon. PLAN: 1/ colace and miralax bd, try to avoid constipation 2/can cont with Abx to prevent translocation and infection, misty wiht high lactate, can use cipro/flgyl 3/ o/p colonoscopy to assess colon in more detail 4/ avoid hypotension Review of Systems Review of Systems: Yes all other systems are reviewed and are negative [facility] Past Medical History Medical History Asthma Schizophrenia 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 Housing: House Do you presently have visiting nurse or other home services: Yes Alcohol intake: former Smoking Status: Never smoker Tobacco Type: Cigarette Cigarettes Per Day: 10 Second Hand Smoke Exposure: Yes Use of substances other than those prescribed or required for medical reasons: No Currently Displaying Signs/Symptoms of Drug Intoxication Withdrawal: No Have you been hit, kicked, punched, or otherwise hurt by someone within the past year? If so, by whom?: No Do you feel safe in your current relationship?: No Current Relationship Is there a partner from a previous relationship who is making you feel unsafe now?: No Are you made to feel afraid or neglected: No Advance Directives: No Advance Directives Information Provided: No Do you have thoughts of harming others: None Do you have a plan to hurt others: No Plan Recently lost weight without trying: No service: No Current occupational status: disabled Sexual orientation: Straight/Heterosexual Meds Allergies Allergy/AdvReac Type Severity Reaction Status Date / Time aspirin [Aspirin] Allergy Unknown VOMIT Verified 11/11/20 21:31 diazepam [From Valium] Allergy Unknown UNKNOWN Verified 11/11/20 21:31 haloperidol [From Haldol] Allergy Unknown UNKN Verified 11/11/20 21:31 penicillin V Allergy Unknown Unknown Verified 11/11/20 21:31 Penicillins Allergy Unknown UNKN Verified 11/11/20 21:31 risperidone [From Risperdal] Allergy Unknown UNKNOWN Verified 11/11/20 21:31 trazodone [TRAZODONE] Allergy Unknown NAUSEA & Verified 11/11/20 21:31 VOMITING From Haldol Allergy Unknown UNKN Uncoded 11/11/20 21:31 Active Medications: Current Medications Generic Name Dose Route Start Last Admin Trade Name Freq PRN Reason Stop Dose Admin Acetaminophen 650 mg 11/29/20 16:46 Acetaminophen 325 Mg Tablet PO Q6H PRN Pain, Mild (Pain Scale 1-3) Albuterol Sulfate 2.5 mg 11/30/20 09:00 11/30/20 07:57 Albuterol Sulfate (0.083%) 2.5 Mg/3 Ml Vial.Neb INHALE Not Given RTID [facility]XMI Albuterol Sulfate 2 puff 11/30/20 07:37 Albuterol Sulfate 90 Mcg 8 Gm Inhaler INHALE Q4H PRN Shortness Of Breath Clonazepam 0.5 mg 11/30/20 09:00 11/30/20 10:03 Clonazepam 0.5 Mg Tablet PO 0.5 mg DAILY [facility]XMI Administration Clonazepam 1 mg 11/30/20 21:00 Clonazepam 1 Mg Tablet PO BEDTIME [facility]XMI Clozapine 50 mg 11/30/20 09:00 11/30/20 10:03 Clozapine 25 Mg Tablet PO 50 mg DAILY [facility]XMI Administration Clozapine 300 mg 11/30/20 21:00 Clozapine 100 Mg Tablet PO BEDTIME [facility]XMI Divalproex Sodium 1,500 mg 11/30/20 21:00 Divalproex Sodium Er 500 Mg Tab.Er.24h PO BEDTIME LAXMI Enoxaparin Sodium 40 mg 11/29/20 18:00 11/29/20 18:34 Enoxaparin Sodium 40 Mg/0.4 Ml Syringe SUBCUT 40 mg Q24H [facility] Administration Fluoxetine HCl 20 mg 11/30/20 09:00 11/30/20 10:02 Fluoxetine Hcl 20 Mg Capsule PO 20 mg DAILY [facility] Administration Fluticasone Propionate 1 puff 11/30/20 08:00 11/30/20 07:57 Fluticasone Propionate 100 Mcg Blst.W.Dev INHALE Not Given RBID [facility] Lactated Ringer's 1,000 mls @ 100 mls/hr 11/29/20 16:46 11/30/20 02:08 Lr IVCONT 100 mls/hr .Q10H [facility] Administration Levofloxacin 500 mg in 100 mls @ 100 mls/hr 11/30/20 07:45 11/30/20 10:03 Levaquin IV 100 mls/hr Q24H [facility] Administration Metronidazole 500 mg in 100 mls @ 100 mls/hr 11/30/20 07:45 11/30/20 10:16 Flagyl IV Infused Q8H [facility] Infusion Montelukast Sodium 10 mg 11/30/20 21:00 Montelukast Sodium 10 Mg Tablet PO BEDTIME [facility] Nicotine 21 mg 11/30/20 09:00 11/30/20 10:08 Nicotine 21 Mg Patch.Td24 TRANSDERMA 21 mg DAILY [facility] Administration Omeprazole 20 mg 11/30/20 07:45 11/30/20 08:23 Omeprazole 20 Mg Capsule.Dr PO Not Given DAILY@0630 [facility] Pharmacy Consult 1 each 11/29/20 16:58 Consult Rx Perform Med Rec MISCELLANE ONCE PRN Consult order Sodium Chloride 3 ml 11/30/20 00:00 11/30/20 07:51 0.9 % Sodium Chloride Flush 3 Ml Syringe IVFLUSH Not Given QSHIFT [facility] Tramadol HCl 25 mg 11/30/20 01:50 11/30/20 10:12 Tramadol Hcl 50 Mg Tablet PO 25 mg Q6H PRN Administration Breakthrough Pain Home Medications Medication Instructions Recorded Confirmed Last Taken Type Flovent HFA 2 puff INHALATION BID 06/26/20 11/29/20 Unknown History albuterol sulfate 2.5 mg INHALATION TID 06/26/20 11/29/20 11/14/20 09:00 History albuterol sulfate [ProAir HFA] 2 puff INHALATION Q4-6H PRN 06/26/20 11/29/20 Unknown History bisacodyl 5 mg PO BEDTIME 06/26/20 11/29/20 11/14/20 09:00 History clonazepam 0.5 mg PO DAILY 06/26/20 11/29/20 11/14/20 09:00 History clonazepam 1 mg PO BEDTIME 06/26/20 11/29/20 11/13/20 21:00 History clozapine 50 mg PO DAILY 06/26/20 11/29/20 11/14/20 08:00 History clozapine 300 mg PO BEDTIME 06/26/20 11/29/20 11/13/20 21:00 History divalproex 1,500 mg PO BEDTIME 06/26/20 11/29/20 11/13/20 21:00 History docusate sodium 100 mg PO BID 06/26/20 11/29/20 11/14/20 08:00 History fluoxetine 20 mg PO QAM 06/26/20 11/29/20 11/14/20 09:00 History lactulose [Generlac] 10 g PO DAILY PRN 06/26/20 11/29/20 Unknown History lisinopril 10 mg PO QAM 06/26/20 11/29/20 11/14/20 08:00 History montelukast 10 mg PO BEDTIME 06/26/20 11/29/20 11/13/20 20:00 History nicotine 1 patch TRANSDERMAL DAILY 06/26/20 11/29/20 11/11/20 09:00 History omeprazole 20 mg PO DAILY@0630 06/26/20 11/29/20 11/14/20 08:00 History polyethylene glycol 3350 17 g PO DAILY PRN 06/26/20 11/29/20 Unknown History tramadol 1 tab PO Q6H 11/12/20 11/29/20 11/14/20 08:00 History Physical Exam Vital Signs: Vital Signs: Last Vital Signs Temp 98.3 F 11/30/20 07:53 Pulse 117 H 11/30/20 07:53 Resp 21 H 11/30/20 07:53 BP 104/59 L 11/30/20 07:53 Pulse Ox 92 11/30/20 07:53 Body Mass Index 35.4 Const: Other: General - appears uncomfortable Cardiovascular - tachycardic in the 110s Lungs - normal respiratory effort, clear to auscultation bilaterally, no wheezing Abdomen - +left sided abdominal pain, no rebound or guarding Extremities - no edema bilaterally Neuro - awake and alert, no focal deficits Results Labs CBC & Chem 7: 11/30/20 06:30 11/30/20 06:30 Labs: Short CBC 11/30/20 Range/Units 06:30 WBC 12.5 H (4.8-10.8) X10*3/uL Hgb 11.2 L (12.0-16.0) g/dl Hct 34.8 L (37-47) % Plt Count 201 D (160-400) X10*3/uL BMP 11/30/20 06:30 Sodium 133 L Potassium 4.4 D Chloride 101 Carbon Dioxide 24 BUN 28 H Creatinine 0.68 Calcium 7.8 L D Urine 11/29/20 Range/Units 17:50 Urine Color SOFI Urine Appearance CLEAR Urine pH 5.5 (5.0-8.0) Ur Specific [place] 1.020 (1.005-1.025) Urine Protein NEG (NEG-TRACE) MG/DL Urine Glucose (UA) NEG (NEG) MG/DL Assessment and Plan (1) Colitis: Status: Acute
--- NOTE | 2020-11-30 11:42 | MHC.CM.PN ---
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
[2020-11-30] MEDS: Albuterol Sulfate (0.083%) 2.5 MG/3 ML VIAL.NEB INHALE ×2 (15:16→20:05)
[2020-11-30] MEDS: Enoxaparin Sodium 40 MG/0.4 ML SYRINGE SUBCUT (18:15)
[2020-11-30] MEDS: Fluticasone Propionate 100 MCG BLST.W.DEV 1 PUFF INHALE (20:05)
[2020-11-30] MEDS: Docusate Sodium 100 MG CAPSULE PO (21:41)
[2020-11-30] MEDS: clonazePAM 1 MG TABLET PO (21:41)
[2020-11-30] MEDS: Divalproex Sodium ER 500 MG TAB.ER.24H 1500 MG PO (21:41)
[2020-11-30] MEDS: cloZAPine 100 MG TABLET 300 MG PO (21:41)
[2020-11-30] MEDS: Montelukast Sodium 10 MG TABLET PO (21:41)
[2020-11-30] MEDS: polyethylene glycoL 3350 17 GM POWD.PACK PO (21:48)
[2020-12-01] VITALS (11 sets, daily range): BP systolic 108–141; BP diastolic 60–75; PULSE 102–132; RESP 18–20; TEMP 36.3–39.6; O2SAT 91–100
[2020-12-01] MEDS: metroNIDAZOLE/NS 500 MG/100 ML PIGGYBACK 100 MG IV ×4 (00:45→22:47)
[2020-12-01] MEDS: Lactated Ringers 1,000 ML 100 ML IVCONT (03:12)
[2020-12-01] MEDS: Omeprazole 20 MG CAPSULE.DR PO (05:35)
[2020-12-01] MEDS: polyethylene glycoL 3350 17 GM POWD.PACK PO ×2 (08:06→21:05)
[2020-12-01] MEDS: Nicotine 21 MG PATCH.TD24 TRANSDERMA (08:07)
[2020-12-01] MEDS: levoFLOXacin/D5W 500 MG/100 ML PIGGYBACK 100 MG IV (08:08)
[2020-12-01] MEDS: cloZAPine 25 MG TABLET 50 MG PO (08:08)
[2020-12-01] MEDS: clonazePAM 0.5 MG TABLET PO (08:08)
[2020-12-01] MEDS: FLUoxetine HCl 20 MG CAPSULE PO (08:08)
[2020-12-01] MEDS: Docusate Sodium 100 MG CAPSULE PO ×2 (08:08→21:07)
[2020-12-01] MEDS: Fluticasone Propionate 100 MCG BLST.W.DEV 1 PUFF INHALE ×2 (08:38→20:42)
[2020-12-01] MEDS: Albuterol Sulfate (0.083%) 2.5 MG/3 ML VIAL.NEB INHALE ×3 (08:38→20:42)
[2020-12-01] MEDS: traMADoL HCL 50 MG TABLET 25 MG PO ×2 (09:15→21:07)
[2020-12-01 09:57] LABS: MANUAL DIFF FLAG NO
[2020-12-01 10:00] LABS: Basophils Percent Auto 0.2 % (0-2); Eosinophils Absolute Auto 0.1 X10*3/uL (0.0-0.4); Eosinophils Percent Auto 0.6 % (0-4); Hematocrit 31.7 % (37-47); Hemoglobin 10.1 g/dl (12.0-16.0); Imm Gran Abs Auto 0.11 X10*3/uL (0.00-0.03); Imm Gran Pct Auto 0.9 % (0.0-0.4); Lymphocytes Absolute Auto 2.2 X10*3/uL (1.2-4.9); Lymphocytes Percent Auto 18.2 % (20-40); Mean Corpuscular HGB Conc 31.9 g/dl (31.0-35.0); Mean Corpuscular Hemoglobin 29.3 pg (27.0-33.0); Mean Corpuscular Volume 91.9 fL (80-98); Monocytes Absolute Auto 1.1 X10*3/uL (0.1-1.2); Monocytes Percent Auto 9.3 % (2-11); Neutrophils Absolute Auto 8.6 X10*3/uL (2.0-8.3); Neutrophils Percent Auto 70.8 % (45-73); Platelet Count 201 X10*3/uL (160-400); Red Blood Count 3.45 X10*6/uL (4.20-5.50); Red Cell Distribution Width 14.4 % (11.0-16.0); White Blood Count 12.1 X10*3/uL (4.8-10.8)
[2020-12-01 10:39] LABS: Anion Gap 12 (12-20); Blood Urea Nitrogen 11 mg/dL (9-16); Calcium 8.3 mg/dL (8.4-10.2); Carbon Dioxide 25 mmol/L (22-29); Chloride 101 mmol/L (96-108); Creatinine Clr Calc Pharmacy 106.5; Estimated Glomerular Filt Rate > 60; Glucose Random 124 mg/dL (60-115); Sodium 134 mmol/L (135-145)
--- NOTE | 2020-12-01 12:14 | P.PNIM_ITS ---
Subjective Subjective Date of Service: 12/01/20 <Olya Beckwith NP - Last Filed: 12/01/20 15:37> 12/01/20 <Raza Leyva MD - Last Filed: 12/01/20 17:17> Interval History: Follow up abdominal pain. Still with nausea and abdominal pain, no bowel movement <Olya Beckwith NP - Last Filed: 12/01/20 15:37> Physical Exam Vital Signs: Vital Signs: Last Vital Signs Temp 97.4 F 12/01/20 11:34 Pulse 113 H 12/01/20 11:34 Resp 19 12/01/20 11:34 BP 108/60 12/01/20 11:34 Pulse Ox 93 12/01/20 11:34 Body Mass Index 35.4 <Olya Beckwith NP - Last Filed: 12/01/20 15:37> Appearing in no acute distress lung sounds are clear to auscultation heart regular rate rhythm, clear S1, S2 positive bowel sounds, abdomen is soft, nontender neuro patient is alert x3, no focal deficits <Olya Beckwith NP - Last Filed: 12/01/20 15:37> Objective Data Current Medications Generic Name Dose Route Start Last Admin Trade Name Freq PRN Reason Stop Dose Admin Acetaminophen 650 mg 11/29/20 16:46 Acetaminophen 325 Mg Tablet PO Q6H PRN Pain, Mild (Pain Scale 1-3) Albuterol Sulfate 2.5 mg 11/30/20 09:00 12/01/20 08:38 Albuterol Sulfate (0.083%) 2.5 Mg/3 Ml Vial.Neb INHALE 2.5 mg RTID [facility] Administration Albuterol Sulfate 2 puff 11/30/20 07:37 Albuterol Sulfate 90 Mcg 8 Gm Inhaler INHALE Q4H PRN Shortness Of Breath Clonazepam 0.5 mg 11/30/20 09:00 12/01/20 08:08 Clonazepam 0.5 Mg Tablet PO 0.5 mg DAILY [facility] Administration Clonazepam 1 mg 11/30/20 21:00 11/30/20 21:41 Clonazepam 1 Mg Tablet PO 1 mg BEDTIME [facility] Administration Clozapine 50 mg 11/30/20 09:00 12/01/20 08:08 Clozapine 25 Mg Tablet PO 50 mg DAILY [facility] Administration Clozapine 300 mg 11/30/20 21:00 11/30/20 21:41 Clozapine 100 Mg Tablet PO 300 mg BEDTIME [facility] Administration Divalproex Sodium 1,500 mg 11/30/20 21:00 11/30/20 21:41 Divalproex Sodium Er 500 Mg Tab.Er.24h PO 1,500 mg BEDTIME [facility] Administration Docusate Sodium 100 mg 11/30/20 21:00 12/01/20 08:08 Docusate Sodium 100 Mg Capsule PO 100 mg BID [facility] Administration Enoxaparin Sodium 40 mg 11/29/20 18:00 11/30/20 18:15 Enoxaparin Sodium 40 Mg/0.4 Ml Syringe SUBCUT 40 mg Q24H [facility] Administration Fluoxetine HCl 20 mg 11/30/20 09:00 12/01/20 08:08 Fluoxetine Hcl 20 Mg Capsule PO 20 mg DAILY [facility] Administration Fluticasone Propionate 1 puff 11/30/20 08:00 12/01/20 08:38 Fluticasone Propionate 100 Mcg Blst.W.Dev INHALE 1 puff RBID [facility] Administration Lactated Ringer's 1,000 mls @ 100 mls/hr 11/29/20 16:46 12/01/20 03:12 Lr IVCONT 100 mls/hr .Q10H [facility] Administration Levofloxacin 500 mg in 100 mls @ 100 mls/hr 11/30/20 07:45 12/01/20 09:49 Levaquin IV Infused Q24H [facility] Infusion Metronidazole 500 mg in 100 mls @ 100 mls/hr 11/30/20 07:45 12/01/20 10:20 Flagyl IV Infused Q8H [facility] Infusion Montelukast Sodium 10 mg 11/30/20 21:00 11/30/20 21:41 Montelukast Sodium 10 Mg Tablet PO 10 mg BEDTIME [facility] Administration Morphine Sulfate 3 mg 12/01/20 11:37 Morphine Sulfate 4 Mg/Ml Cartridge IVPUSH Q4H PRN Pain, Severe (Pain Scale 7-10) Nicotine 21 mg 11/30/20 09:00 12/01/20 08:07 Nicotine 21 Mg Patch.Td24 TRANSDERMA 21 mg DAILY [facility] Administration Omeprazole 20 mg 11/30/20 07:45 12/01/20 05:35 Omeprazole 20 Mg Capsule. PO 20 mg DAILY@0630 [facility] Administration Pharmacy Consult 1 each 11/29/20 16:58 Consult Rx Perform Med Rec MISCELLANE ONCE PRN Consult order Polyethylene Glycol 17 gm 11/30/20 21:00 12/01/20 08:06 Polyethylene Glycol 3350 17 Gm Powd.Pack PO 17 gm BID [facility] Administration Senna 15 ml 11/30/20 21:00 11/30/20 21:41 Senna [place] Extract Oral Syrup 15 Ml Syrup PO 15 ml BEDTIME [facility] Administration Sodium Chloride 3 ml 11/30/20 00:00 12/01/20 09:18 0.9 % Sodium Chloride Flush 3 Ml Syringe IVFLUSH Not Given QSHIFT [facility] Tramadol HCl 25 mg 11/30/20 01:50 12/01/20 09:15 Tramadol Hcl 50 Mg Tablet PO 25 mg Q6H PRN Administration Breakthrough Pain <Olya Beckwith NP - Last Filed: 12/01/20 15:37> Labs CBC & Chem 7: : 12/01/20 16:10 12/01/20 09:16 <Olya Beckwith NP - Last Filed: 12/01/20 15:37> Microbiology Microbiology Results: Microbiology 11/29/20 17:37 Blood - Venous Blood Culture - Preliminary No growth after 24 hours. 11/29/20 17:37 Blood - Venous Blood Culture - Preliminary No growth after 24 hours. <Olya Beckwith NP - Last Filed: 12/01/20 15:37> Assessment and Plan (1) Colitis: Status: Acute <Olya Beckwith NP - Last Filed: 12/01/20 15:37> Assessment and Plan: This is a 55-year-old female was being treated on the inpatient psych floor and was subsequently transferred down to the medical floor for abdominal pain and profound hypotension as well as lactic acidosis. Colitis. Still with some abd pain and nausea Infectious versus inflammatory versus ischemic Seen by GI rec continue Flagyl and Levaquin and bowel reg Anemia. Likely dilutional from IV fluids Trend check stool occult Constipation. Continue bowel regimin Lactulose, senna, colace, miralax Hypotension. Resolved Suspected hypovolemic and not secondary to sepsis or septic shock Improved with IV fluids Still remains slightly tachycardic will continue with IV hydration Hyponatremia. Resolved. Secondary to hypovolemia improved with fluids Lactic acidosis From dehydration and not sepsis Resolved with IV fluids Hyperkalemia Resolved Mood Continue the medications she was being treated with on M5 DISPO: Home when medically cleared. Attending: Dr. Leyva <Olya Beckwith NP - Last Filed: 12/01/20 15:37> Attending Attestation: Patient seen and examined independently and I was present during whitaker portion of E/M service. Agree with Tierra Beckwith NP's history, physical, assessment, and plan. Pt continues to have L-sided abdominal pain. Oral pain meds are not controlling her pain, is requiring IV pain meds. Had a drop in her h/h from admission which on repeat this afternoon is stable. GI input appreciated -- suspected ischemic colitis, but does recommend to have empiric antibiotics to prevent translocation of infection. She needs to continue IV antibiotics as she is not tolerating a diet by mouth consistently enough to transition to oral antibiotics. She is on a bowel regime but has yet to move bowels. Lactulose added today. Hopefully as she moves her bowels, her pain, nausea and inability to keep orals down improves. <Raza Leyva MD - Last Filed: 12/01/20 17:17>
[2020-12-01] MEDS: Morphine Sulfate 4 MG/ML CARTRIDGE 3 MG IVPUSH ×3 (12:52→22:48)
[2020-12-01] MEDS: Lactulose 20 GM/30 ML SOLUTION 10 GM PO (12:53)
[2020-12-01] MEDS: Lactated Ringers 1,000 ML 10 ML IVCONT (13:58)
[2020-12-01 16:23] LABS: Hematocrit 31.9 % (37-47); Hemoglobin 10.1 g/dl (12.0-16.0)
[2020-12-01] MEDS: Divalproex Sodium ER 500 MG TAB.ER.24H 1500 MG PO (21:06)
[2020-12-01] MEDS: Montelukast Sodium 10 MG TABLET PO (21:07)
[2020-12-01] MEDS: clonazePAM 1 MG TABLET PO (21:07)
[2020-12-01] MEDS: cloZAPine 100 MG TABLET 300 MG PO (21:08)
[2020-12-01] MEDS: Acetaminophen 325 MG TABLET 650 MG PO (21:12)
[2020-12-02] VITALS: BP 101/70; PULSE 120; RESP 16; TEMP 37.3; O2SAT 92
[2020-12-02 03:41] VITALS: BP 107/41; PULSE 116; RESP 16; TEMP 37.8; O2SAT 92
[2020-12-02] MEDS: Omeprazole 20 MG CAPSULE.DR PO (06:18)
[2020-12-02] MEDS: Lactated Ringers 1,000 ML 10 ML IVCONT (06:18)
[2020-12-02 07:49] LABS: Hematocrit 30.1 % (37-47); Hemoglobin 9.5 g/dl (12.0-16.0); Mean Corpuscular HGB Conc 31.6 g/dl (31.0-35.0); Mean Corpuscular Hemoglobin 29.2 pg (27.0-33.0); Mean Corpuscular Volume 92.6 fL (80-98); Mean Platelet Volume 11.7 fL (9.4-12.3); Platelet Count 244 X10*3/uL (160-400); Red Blood Count 3.25 X10*6/uL (4.20-5.50); Red Cell Distribution Width 14.1 % (11.0-16.0); White Blood Count 17.3 X10*3/uL (4.8-10.8)
[2020-12-02 08:00] VITALS: BP 128/62; O2SAT 94
[2020-12-02] MEDS: Lactulose 20 GM/30 ML SOLUTION 10 GM PO (08:01)
[2020-12-02] MEDS: polyethylene glycoL 3350 17 GM POWD.PACK PO ×2 (08:01→20:25)
[2020-12-02] MEDS: Docusate Sodium 100 MG CAPSULE PO ×2 (08:01→20:26)
[2020-12-02] MEDS: FLUoxetine HCl 20 MG CAPSULE PO (08:01)
[2020-12-02] MEDS: cloZAPine 25 MG TABLET 50 MG PO (08:02)
[2020-12-02] MEDS: Nicotine 21 MG PATCH.TD24 TRANSDERMA (08:02)
[2020-12-02] MEDS: clonazePAM 0.5 MG TABLET PO (08:02)
[2020-12-02 08:06] LABS: Anion Gap 10 (12-20); Blood Urea Nitrogen 8 mg/dL (9-16); Calcium 8.3 mg/dL (8.4-10.2); Carbon Dioxide 31 mmol/L (22-29); Chloride 100 mmol/L (96-108); Creatinine Clr Calc Pharmacy 112.2; Estimated Glomerular Filt Rate > 60; Glucose Random 90 mg/dL (60-115); Potassium 3.8 mmol/L (3.3-5.1); Sodium 137 mmol/L (135-145)
[2020-12-02] MEDS: metroNIDAZOLE/NS 500 MG/100 ML PIGGYBACK 100 MG IV ×3 (08:10→23:09)
[2020-12-02] MEDS: levoFLOXacin/D5W 500 MG/100 ML PIGGYBACK 100 MG IV (09:16)
[2020-12-02 10:42] LABS: Lactic Acid 0.7 mmol/L (0.5-2.0)
[2020-12-02 11:24] VITALS: BP 137/74; PULSE 105; RESP 16; TEMP 36.6; O2SAT 91
--- NOTE | 2020-12-02 12:15 | MHC.CM.PN ---
CM WAS ABLE TO CONTACT PT'S CHD SUPERVISOR POWDERED METAL ELSY WELDON - [phone] WHO CONFIRMED PT'S PCP ANDREZ SANTOYO, EMR REVIEWED AND PER MULTIDISCIPLINARY ROUNDS PT SUSANNA BE HERE 1-2 MORE DAYS AFTER SPIKING FEVER OF 102-103 LAST NIGHT. DISCHARGE HOME: HOME W/RESUMPTION OF [facility] FAMILY & CHD OUTREACH, ELSY CHD WORKER TO TRANSPORT.
--- NOTE | 2020-12-02 13:27 | P.CONGS_ITS ---
History of Present Illness Consult details Consult date: 12/02/20 Reason for consult: abdominal pain Requesting physician: Raza Leyva Narrative: This is a 55-year-old lady who was admitted several days ago with psychiatric issues and was admitted to for treatment and then had abdominal pain and diarrhea and a documented blood pressure in the 60 systolic. Patient had a CT scan of the abdomen and pelvis at that time that showed redundance of the colon and inflammatory changes from the splenic flexure down to the sigmoid colon likely related to ischemia from low blood pressures from diarrhea. Patient reports she is still having abdominal pain. She is comfortable in appearance but reports having 10/10 abdominal pain. She reports having associated nausea but no vomiting. Patient reports she has not had any bowel function in 2 days. She no longer has diarrhea and denies any history of seeing blood in the stool previously. Patient's white blood cell count have been in the 12 range and is up to 17 today. Her lactic acid is normal however. She has not had any solid food several days but is binge drinking liquids up until today. Patient had a fever which prompted a fever workup including chest x-ray which documented a left-sided pneumonia. Patient is currently drinking contrast undergo a repeat CT scan of the abdomen. Patient reports her pain is the same as it was when she presented with it several days ago it has not changed in quality. She denies any exacerbating or alleviating factors. Patient's vital signs appear to be within normal limits currently. Patient denies having previous history of colonoscopy or endoscopy. Her only previous surgical history for the abdomen is tubal ligation and appendectomy. She denies any shortness of breath or chest pain. Review of Systems Review of Systems: Yes all other systems are reviewed and are negative Constitutional: Constitutional: Denies body ache(s), Denies chills, Reports difficulty sleeping, Denies excessive sweating, Reports fatigue, Reports feve r(s), Denies headache(s), Reports lethargy, Reports poor appetite, Denies snoring and Reports weakness Eyes: Eyes: Denies blurry vision, Denies change in vision and Denies eye pain ENT: Reports dizziness, Denies facial pain, Denies headache(s), Denies neck pain and Reports disequilibrium Cardiovascular: Cardiovascular: Reports rapid heart rate, Denies pedal edema, Denies leg edema and Reports dyspnea on exertion Respiratory: Respiratory: Denies chest congestion, Denies cough, Reports dyspnea on exertion and Denies snoring Gastrointestinal: Gastrointestinal: Reports abdominal pain, Denies belching, Denies melena, Denies hematochezia, Reports change in bowel habits, Reports constipation, Denies heartburn, Denies diarrhea, Reports nausea and Denies vomiting Genitourinary: Genitourinary: Denies hematuria, Denies difficulty voiding and Denies dysuria Musculoskeletal: Musculoskeletal: Reports back pain, Reports muscle weakness and Denies neck pain Integumentary/Breasts: Skin/Breast: Denies bleeding lesions, Denies breast skin changes, Denies breast pain and Denies lesions Neurologic: Reports dizziness, Denies headache(s), Reports disequilibrium and Reports weakness Psychiatric: Psychiatric: Reports anxiety, Reports depression and Reports jose miguel tory hallucinations Endocrine: Endocrine: Denies excessive sweating, Reports fatigue, Denies polyphagia and Denies polydipsia Hematologic/Lymphatic: Hematologic/Lymphatic: Denies easy bleeding and Denies easy bruising PMFSH Past Medical History Medical History (Updated 12/02/20 @ 13:39 by Maria G Gomez MD) Asthma Morbid obesity due to excess calories Schizophrenia Family History Family History (Updated 12/02/20 @ 13:38 by Maria G Gomez MD) Father Throat cancer Mother CVA (cerebral vascular accident) Brother Drug overdose Sister No problems noted. Sister No problems noted. Son No problems noted. Son No problems noted. Surgical History Surgical History (Updated 12/02/20 @ 13:39 by Maria G Gomez MD) H/O right knee surgery History of appendectomy History of tubal ligation Social History Social History (Updated 12/02/20 @ 13:40 by Maria G Gomez MD) Household Members: Caregiver Housing: House Do you presently have visiting nurse or other home services: Yes Alcohol intake: former Smoking Status: Former smoker Tobacco Type: Cigarette Cigarettes Per Day: 10 Smoking Quit Date: 10/10/2020 Second Hand Smoke Exposure: Yes Use of substances other than those prescribed or required for medical reasons: No Currently Displaying Signs/Symptoms of Drug Intoxication Withdrawal: No Have you been hit, kicked, punched, or otherwise hurt by someone within the past year? If so, by whom?: No Do you feel safe in your current relationship?: No Current Relationship Is there a partner from a previous relationship who is making you feel unsafe now?: No Are you made to feel afraid or neglected: No Advance Directives: No Advance Directives Information Provided: No Do you have thoughts of harming others: None Do you have a plan to hurt others: No Plan Recently lost weight without trying: No service: No Current occupational status: disabled Sexual orientation: Straight/Heterosexual Meds Allergies Allergy/AdvReac Type Severity Reaction Status Date / Time aspirin [Aspirin] Allergy Unknown VOMIT Verified 12/02/20 13:40 diazepam [From Valium] Allergy Unknown UNKNOWN Verified 12/02/20 13:40 haloperidol [From Haldol] Allergy Unknown UNKN Verified 12/02/20 13:40 penicillin V Allergy Unknown Unknown Verified 12/02/20 13:40 Penicillins Allergy Unknown UNKN Verified 12/02/20 13:40 risperidone [From Risperdal] Allergy Unknown UNKNOWN Verified 12/02/20 13:40 trazodone [TRAZODONE] Allergy Unknown NAUSEA & Verified 12/02/20 13:40 VOMITING From Haldol Allergy Unknown UNKN Uncoded 12/02/20 13:40 Active Medications: Current Medications Generic Name Dose Route Start Last Admin Trade Name Freq PRN Reason Stop Dose Admin Acetaminophen 650 mg 11/29/20 16:46 12/01/20 21:12 Acetaminophen 325 Mg Tablet PO 650 mg Q6H PRN Administration Pain, Mild (Pain Scale 1-3) Albuterol Sulfate 2.5 mg 11/30/20 09:00 12/02/20 08:06 Albuterol Sulfate (0.083%) 2.5 Mg/3 Ml Vial.Neb INHALE Not Given RTID LAXMI Albuterol Sulfate 2 puff 11/30/20 07:37 Albuterol Sulfate 90 Mcg 8 Gm Inhaler INHALE Q4H PRN Shortness Of Breath Clonazepam 0.5 mg 11/30/20 09:00 12/02/20 08:02 Clonazepam 0.5 Mg Tablet PO 0.5 mg DAILY LAXMI Administration Clonazepam 1 mg 11/30/20 21:00 12/01/20 21:07 Clonazepam 1 Mg Tablet PO 1 mg BEDTIME LAXMI Administration Clozapine 50 mg 11/30/20 09:00 12/02/20 08:02 Clozapine 25 Mg Tablet PO 50 mg DAILY LAXMI Administration Clozapine 300 mg 11/30/20 21:00 12/01/20 21:08 Clozapine 100 Mg Tablet PO 300 mg BEDTIME LAXMI Administration Divalproex Sodium 1,500 mg 11/30/20 21:00 12/01/20 21:06 Divalproex Sodium Er 500 Mg Tab.Er.24h PO 1,500 mg BEDTIME LAXMI Administration Docusate Sodium 100 mg 11/30/20 21:00 12/02/20 08:01 Docusate Sodium 100 Mg Capsule PO 100 mg BID LAXMI Administration Enoxaparin Sodium 40 mg 11/29/20 18:00 11/30/20 18:15 Enoxaparin Sodium 40 Mg/0.4 Ml Syringe SUBCUT 40 mg Q24H LAXMI Administration Fluoxetine HCl 20 mg 11/30/20 09:00 12/02/20 08:01 Fluoxetine Hcl 20 Mg Capsule PO 20 mg DAILY LAXMI Administration Fluticasone Propionate 1 puff 11/30/20 08:00 12/02/20 08:06 Fluticasone Propionate 100 Mcg Blst.W.Dev INHALE Not Given RBID LAXMI Lactated Ringer's 1,000 mls @ 100 mls/hr 11/29/20 16:46 12/02/20 06:18 Lr IVCONT 10 mls/hr .Q10H LAXMI Administration Levofloxacin 500 mg in 100 mls @ 100 mls/hr 11/30/20 07:45 12/02/20 10:15 Levaquin IV Infused Q24H LAXMI Infusion Metronidazole 500 mg in 100 mls @ 100 mls/hr 11/30/20 07:45 12/02/20 09:36 Flagyl IV Infused Q8H LAXMI Infusion Lactulose 10 gm 12/01/20 12:30 12/02/20 08:01 Lactulose 20 Gm/30 Ml Solution PO 10 gm DAILY LAXMI Administration Montelukast Sodium 10 mg 11/30/20 21:00 12/01/20 21:07 Montelukast Sodium 10 Mg Tablet PO 10 mg BEDTIME LAXMI Administration Morphine Sulfate 3 mg 12/01/20 11:37 12/01/20 22:48 Morphine Sulfate 4 Mg/Ml Cartridge IVPUSH 3 mg Q4H PRN Administration Pain, Severe (Pain Scale 7-10) Nicotine 21 mg 11/30/20 09:00 12/02/20 08:02 Nicotine 21 Mg Patch.Td24 TRANSDERMA 21 mg DAILY LAXMI Administration Omeprazole 20 mg 11/30/20 07:45 04/15/21 06:18 Omeprazole 20 Mg Capsule. PO 20 mg DAILY@0630 [facility] Administration Pharmacy Consult 1 each 11/29/20 16:58 Consult Rx Perform Med Rec MISCELLANE ONCE PRN Consult order Polyethylene Glycol 17 gm 11/30/20 21:00 12/02/20 08:01 Polyethylene Glycol 3350 17 Gm Powd.Pack PO 17 gm BID LAXMI Administration Senna 15 ml 11/30/20 21:00 12/01/20 21:04 Senna [place] Extract Oral Syrup 15 Ml Syrup PO 15 ml BEDTIME [facility] Administration Sodium Chloride 3 ml 11/30/20 00:00 12/02/20 08:15 0.9 % Sodium Chloride Flush 3 Ml Syringe IVFLUSH Not Given QSHIFT [facility] Tramadol HCl 25 mg 11/30/20 01:50 12/01/20 21:07 Tramadol Hcl 50 Mg Tablet PO 25 mg Q6H PRN Administration Breakthrough Pain Home Medications Medication Instructions Recorded Confirmed Last Taken Type Flovent HFA 2 puff INHALATION BID 06/26/20 11/29/20 Unknown History albuterol sulfate 2.5 mg INHALATION TID 06/26/20 11/29/20 11/14/20 09:00 History albuterol sulfate [ProAir HFA] 2 puff INHALATION Q4-6H PRN 06/26/20 11/29/20 Unknown History bisacodyl 5 mg PO BEDTIME 06/26/20 11/29/20 11/14/20 09:00 History clonazepam 0.5 mg PO DAILY 06/26/20 11/29/20 11/14/20 09:00 History clonazepam 1 mg PO BEDTIME 06/26/20 11/29/20 11/13/20 21:00 History clozapine 50 mg PO DAILY 06/26/20 11/29/20 11/14/20 08:00 History clozapine 300 mg PO BEDTIME 06/26/20 11/29/20 11/13/20 21:00 History divalproex 1,500 mg PO BEDTIME 06/26/20 11/29/20 11/13/20 21:00 History docusate sodium 100 mg PO BID 06/26/20 11/29/20 11/14/20 08:00 History fluoxetine 20 mg PO QAM 06/26/20 11/29/20 11/14/20 09:00 History lactulose [Generlac] 10 g PO DAILY PRN 06/26/20 11/29/20 Unknown History lisinopril 10 mg PO QAM 06/26/20 11/29/20 11/14/20 08:00 History montelukast 10 mg PO BEDTIME 06/26/20 11/29/20 11/13/20 20:00 History nicotine 1 patch TRANSDERMAL DAILY 06/26/20 11/29/20 11/11/20 09:00 History omeprazole 20 mg PO DAILY@0630 06/26/20 11/29/20 11/14/20 08:00 History polyethylene glycol 3350 17 g PO DAILY PRN 06/26/20 11/29/20 Unknown History tramadol 1 tab PO Q6H 11/12/20 11/29/20 11/14/20 08:00 History Physical Exam Vital Signs: Vital Signs: Last Vital Signs Temp 97.8 F 12/02/20 11:24 Pulse 105 H 12/02/20 11:24 Resp 16 12/02/20 11:24 BP 137/74 12/02/20 11:24 Pulse Ox 91 L 12/02/20 11:24 Body Mass Index 35.4 Const: Other: Sitting in chair comfortable in no apparent distress General: cooperative, comfortable and no acute distress HENMT: Head: Yes normal to inspection, Yes normocephalic and Yes atraumatic Ears: hearing grossly normal bilaterally Mouth: Normal oral and palatal mucosa present Throat: Yes posterior oropharynx normal Eyes: Sclerae: scleral abnormal (Course color or mild icterus) EOM: EOMs intact bilaterally Neck: Neck: Yes normal visual inspection, Yes lymphadenopathy and Yes no JVD Thyroid: Thyroid normal Resp: Effort & Inspection: normal respiratory effort and no cough Auscultation: clear to auscultation bilaterally Cardio: Rate: tachycardic (Slightly) Heart sounds: S1 normal heart sound present, S2 normal heart sound present, no click, no gallops and no murmurs GI: Other: Obese softly distended, mild to moderately tender to palpation diffusely. There is some veins visible in the skin throughout the abdomen. There is no rebound or guarding. Skin: General skin exam: no rashes or lesions noted Neuro: Cranial nerves: Yes CN's II-XII intact bilaterally Extrem: Other: Well-healed surgical scar on the right knee. Bilateral lower extremities are warm well-perfused without tenderness or edema or cyanosis her skin lesions. Results Labs Result diagrams: 12/02/20 07:06 12/02/20 07:06 Labs: Abnormal lab results 12/01/20 12/02/20 12/02/20 Range/Units 16:10 07:06 07:06 WBC 17.3 H (4.8-10.8) X10*3/uL RBC 3.25 L (4.20-5.50) X10*6/uL Hgb 10.1 L 9.5 L (12.0-16.0) g/dl Hct 31.9 L 30.1 L (37-47) % Carbon Dioxide 31 H (22-29) mmol/L Anion Gap 10 L (12-20) BUN 8 L (9-16) mg/dL Calcium 8.3 L (8.4-10.2) mg/dL Short CBC 12/01/20 12/02/20 Range/Units 16:10 07:06 WBC 17.3 H (4.8-10.8) X10*3/uL Hgb 10.1 L 9.5 L (12.0-16.0) g/dl Hct 31.9 L 30.1 L (37-47) % Plt Count 244 (160-400) X10*3/uL BMP 12/02/20 07:06 Sodium 137 Potassium 3.8 Chloride 100 Carbon Dioxide 31 H BUN 8 L Creatinine 0.56 Calcium 8.3 L Urine 11/29/20 Range/Units 17:50 Urine Color SOFI Urine Appearance CLEAR Urine pH 5.5 (5.0-8.0) Ur Specific [place] 1.020 (1.005-1.025) Urine Protein NEG (NEG-TRACE) MG/DL Urine Glucose (UA) NEG (NEG) MG/DL All other labs normal. Assessment and Plan (1) Colitis: Status: Acute This is a 55-year-old lady who was admitted several days ago with likely ischemic colitis who continues to have abdominal pain but no further episodes of hypotension or diarrhea. Patient developed a fever today and chest x-ray shows left-sided pneumonia. Elevated white blood cell count and fever may be related to lung pathology. Patient is currently drinking contrast to undergo repeat CT scan abdomen to evaluate for worsening of colitis or other intra-abdominal pathology. We will continue to follow with you. Continue with antibiotics as you are and continue NPO for now until after CT scan and then patient may have sips of clear liquids for comfort. Patient likely has an ileus related to ischemic colitis which will take some time to resolve and should improve with clinical improvement and colitis. I spent 1 hour of time with this patient gaining history doing physical examination reviewing all of her laboratory values radiologic studies and documenting.
[2020-12-02] MEDS: Doxycycline Hyclate 100 MG in 0.9 % Sodium Chloride 250 ML 166.67 MG IV (14:57)
--- NOTE | 2020-12-02 15:04 | HO.PM.IMPN ---
Subjective Subjective Date of Service: 12/02/20 <PATTIE Cody - Last Filed: 12/02/20 15:30> 12/02/20 <Raza Leyva MD - Last Filed: 12/03/20 13:31> Interval History: seen and examined this morning follow up for colitis Fever 102-103 last night reporting abdominal pain, no BM, +shortness of breath <PATTIE Cody - Last Filed: 12/02/20 15:30> Review of Systems Review of Systems: Yes all other systems are reviewed and are negative <PATTIE Cody - Last Filed: 12/02/20 15:30> Cardiovascular Cardiovascular: Denies chest pain and Reports dyspnea <PATTIE Cody - Last Filed: 12/02/20 15:30> Respiratory Respiratory: Denies cough and Reports dyspnea <PATTIE Cody - Last Filed: 12/02/20 15:30> Gastrointestinal Gastrointestinal: Reports abdominal pain and Denies diarrhea <PATTIE Cody - Last Filed: 12/02/20 15:30> Physical Exam Vital Signs: Vital Signs: Last Vital Signs Temp 97.8 F 12/02/20 11:24 Pulse 105 H 12/02/20 11:24 Resp 16 12/02/20 11:24 BP 137/74 12/02/20 11:24 Pulse Ox 91 L 12/02/20 11:24 Body Mass Index 35.4 <PATTIE Cody - Last Filed: 12/02/20 15:30> Const: General: no acute distress, alert and awake <PATTIE Cody - Last Filed: 12/02/20 15:30> Nutritional Appearance: well nourished <PATTIE Cody - Last Filed: 12/02/20 15:30> Orientation/consciousness: patient oriented x3 <PATTIE Cody - Last Filed: 12/02/20 15:30> HENMT: Head: Yes normocephalic and Yes atraumatic <PATTIE Cody - Last Filed: 12/02/20 15:30> Eyes: Sclerae: sclerae normal <PATTIE Cody - Last Filed: 12/02/20 15:30> Chest: Chest palpation & inspection: normal inspection of the chest <PATTIE Cody Last Filed: 12/02/20 15:30> Resp: Effort & Inspection: normal respiratory effort and no respiratory distress <PATTIE Cody Last Filed: 12/02/20 15:30> Cardio: Rate: regular rate <PATTIE Cody Last Filed: 12/02/20 15:30> Rhythm: regular rhythm <PATTIE Cody - Last Filed: 12/02/20 15:30> GI: Other: softly distended , mild diffuse tenderness to palpation; no gurading <PATTIE Cody Last Filed: 12/02/20 15:30> Neuro: General: patient oriented x3 <PATTIE Cody Last Filed: 12/02/20 15:30> Cranial nerves: Yes CN's II-XII intact bilaterally and Yes Bilaterally intact EOM present <PATTIE Cody Last Filed: 12/02/20 15:30> Extrem: Other: no edema <PATTIE Cody Last Filed: 12/02/20 15:30> Objective Data Current Medications Generic Name Dose Route Start Last Admin Trade Name Freq PRN Reason Stop Dose Admin Acetaminophen 650 mg 11/29/20 16:46 12/01/20 21:12 Acetaminophen 325 Mg Tablet PO 650 mg Q6H PRN Administration Pain, Mild (Pain Scale 1-3) Albuterol Sulfate 2.5 mg 11/30/20 09:00 12/02/20 14:34 Albuterol Sulfate (0.083%) 2.5 Mg/3 Ml Vial.Neb INHALE Not Given RTID LAXMI Albuterol Sulfate 2 puff 11/30/20 07:37 Albuterol Sulfate 90 Mcg 8 Gm Inhaler INHALE Q4H PRN Shortness Of Breath Clonazepam 0.5 mg 11/30/20 09:00 12/02/20 08:02 Clonazepam 0.5 Mg Tablet PO 0.5 mg DAILY LAXMI Administration Clonazepam 1 mg 11/30/20 21:00 12/01/20 21:07 Clonazepam 1 Mg Tablet PO 1 mg BEDTIME LAXMI Administration Clozapine 50 mg 11/30/20 09:00 12/02/20 08:02 Clozapine 25 Mg Tablet PO 50 mg DAILY LAXMI Administration Clozapine 300 mg 11/30/20 21:00 12/01/20 21:08 Clozapine 100 Mg Tablet PO 300 mg BEDTIME LAXMI Administration Divalproex Sodium 1,500 mg 11/30/20 21:00 12/01/20 21:06 Divalproex Sodium Er 500 Mg Tab.Er.24h PO 1,500 mg BEDTIME LAXMI Administration Docusate Sodium 100 mg 11/30/20 21:00 12/02/20 08:01 Docusate Sodium 100 Mg Capsule PO 100 mg BID LAXMI Administration Enoxaparin Sodium 40 mg 11/29/20 18:00 11/30/20 18:15 Enoxaparin Sodium 40 Mg/0.4 Ml Syringe SUBCUT 40 mg Q24H LAXMI Administration Fluoxetine HCl 20 mg 11/30/20 09:00 12/02/20 08:01 Fluoxetine Hcl 20 Mg Capsule PO 20 mg DAILY LAXMI Administration Fluticasone Propionate 1 puff 11/30/20 08:00 12/02/20 08:06 Fluticasone Propionate 100 Mcg Blst.W.Dev INHALE Not Given RBID LAXMI Lactated Ringer's 1,000 mls @ 100 mls/hr 11/29/20 16:46 12/02/20 06:18 Lr IVCONT 10 mls/hr .Q10H LAXMI Administration Levofloxacin 500 mg in 100 mls @ 100 mls/hr 11/30/20 07:45 12/02/20 10:15 Levaquin IV Infused Q24H LAXMI Infusion Metronidazole 500 mg in 100 mls @ 100 mls/hr 11/30/20 07:45 12/02/20 09:36 Flagyl IV Infused Q8H LAXMI Infusion Doxycycline Hyclate 100 mg/ 250 mls @ 166.67 mls/hr 12/02/20 15:00 12/02/20 14:57 Sodium Chloride IV 166.67 mls/hr Q12H LAXMI Administration Lactulose 10 gm 12/01/20 12:30 12/02/20 08:01 Lactulose 20 Gm/30 Ml Solution PO 10 gm DAILY LAXMI Administration Montelukast Sodium 10 mg 11/30/20 21:00 12/01/20 21:07 Montelukast Sodium 10 Mg Tablet PO 10 mg BEDTIME LAXMI Administration Morphine Sulfate 3 mg 12/01/20 11:37 12/01/20 22:48 Morphine Sulfate 4 Mg/Ml Cartridge IVPUSH 3 mg Q4H PRN Administration Pain, Severe (Pain Scale 7-10) Nicotine 21 mg 11/30/20 09:00 12/02/20 08:02 Nicotine 21 Mg Patch.Td24 TRANSDERMA 21 mg DAILY LAXMI Administration Omeprazole 20 mg 11/30/20 07:45 12/02/20 06:18 Omeprazole 20 Mg Capsule. PO 20 mg DAILY@0630 [facility] Administration Pharmacy Consult 1 each 11/29/20 16:58 Consult Rx Perform Med Rec MISCELLANE ONCE PRN Consult order Polyethylene Glycol 17 gm 11/30/20 21:00 12/02/20 08:01 Polyethylene Glycol 3350 17 Gm Powd.Pack PO 17 gm BID LAXMI Administration Senna 15 ml 11/30/20 21:00 12/01/20 21:04 Senna [place] Extract Oral Syrup 15 Ml Syrup PO 15 ml BEDTIME LAXMI Administration Sodium Chloride 3 ml 11/30/20 00:00 12/02/20 08:15 0.9 % Sodium Chloride Flush 3 Ml Syringe IVFLUSH Not Given QSHIFT [facility] Tramadol HCl 25 mg 11/30/20 01:50 12/01/20 21:07 Tramadol Hcl 50 Mg Tablet PO 25 mg Q6H PRN Administration Breakthrough Pain <PATTIE Cody - Last Filed: 12/02/20 15:30> Labs CBC & Chem 7: : 12/03/20 07:35 12/03/20 07:35 <PATTIE Cody - Last Filed: 12/02/20 15:30> Microbiology Microbiology Results: Microbiology 11/29/20 17:37 Blood - Venous Blood Culture - Preliminary No growth after 48 hours. 11/29/20 17:37 Blood - Venous Blood Culture - Preliminary No growth after 48 hours. <PATTIE Cody - Last Filed: 12/02/20 15:30> Assessment and Plan (1) Colitis: Status: Acute <PATTIE Cody - Last Filed: 12/02/20 15:30> Assessment and Plan: This is a 55-year-old female was being treated on the inpatient psych floor and was subsequently transferred down to the medical floor for abdominal pain and profound hypotension as well as lactic acidosis found to have colitis, course now complicated by pneumonia. Colitis. Ongoing abdominal pain. Spiked fever overnight Concern over ischemic colitis, GI rec abx to prevent translocation of infection -continue IV abx day #3 -repeat CT scan -surgical consult Left lower lobe Pneumonia not currently requiring supplemental oxygen -on levaquin, flagyl for colitis, will add doxycycline -follow blood cultures Normocytic Anemia. H/h drifting down. Likely dilutional from IV fluids -Trend cbc -stool occult ordered Constipation. Continue bowel regimen Lactulose, senna, colace, miralax Hypotension. Resolved Suspected hypovolemic and not secondary to sepsis or septic shock Improved with IV fluids Still remains slightly tachycardic will continue with IV hydration Hyponatremia. Resolved. Secondary to hypovolemia improved with fluids Lactic acidosis From dehydration and not sepsis Resolved with IV fluids Hyperkalemia Resolved Mood Continue the medications she was being treated with on M5 DISPO: Home when medically cleared. DVT ppx - mechanical devices Attending: Dr. Leyva <PATTIE Cody - Last Filed: 12/02/20 15:30> Attending Attestation: Patient seen and examined independently and I was present during whitaker portion of E/M service. Agree with PATTIE York's history, physical, assessment, and plan. <Raza Leyva MD - Last Filed: 12/03/20 13:31>
[2020-12-02 15:41] VITALS: BP 127/64; PULSE 110; RESP 18; TEMP 36.2; O2SAT 93
[2020-12-02] MEDS: Barium Sulfate Oral (Mocha) 450 ML ORAL.SUSP 900 ML PO (16:03)
[2020-12-02] MEDS: iohexoL 350 MG/ML 100 ML INFUS..BTL IV (16:04)
[2020-12-02] MEDS: traMADoL HCL 50 MG TABLET 25 MG PO (17:34)
[2020-12-02 19:17] VITALS: BP 129/62; PULSE 100; RESP 18; TEMP 36.4; O2SAT 93
[2020-12-02] MEDS: Montelukast Sodium 10 MG TABLET PO (20:26)
[2020-12-02] MEDS: Divalproex Sodium ER 500 MG TAB.ER.24H 1500 MG PO (20:26)
[2020-12-02] MEDS: clonazePAM 1 MG TABLET PO (20:26)
[2020-12-02] MEDS: cloZAPine 100 MG TABLET 300 MG PO (20:26)
[2020-12-02] MEDS: Morphine Sulfate 4 MG/ML CARTRIDGE 3 MG IVPUSH (20:27)
[2020-12-02] MEDS: 0.9 % Sodium Chloride Flush 3 ML SYRINGE IVFLUSH (20:30)
[2020-12-03] VITALS (10 sets, daily range): BP systolic 106–138; BP diastolic 53–71; PULSE 100–108; RESP 12–20; TEMP 36.3–37.2; O2SAT 91–98; BMI 35.7
[2020-12-03] MEDS: Morphine Sulfate 4 MG/ML CARTRIDGE 3 MG IVPUSH ×3 (01:28→19:33)
[2020-12-03] MEDS: Doxycycline Hyclate 100 MG in 0.9 % Sodium Chloride 250 ML 166.7 MG IV (02:43)
[2020-12-03] MEDS: Omeprazole 20 MG CAPSULE.DR PO (05:39)
[2020-12-03] MEDS: Nicotine 21 MG PATCH.TD24 TRANSDERMA (07:57)
[2020-12-03] MEDS: Lactulose 20 GM/30 ML SOLUTION 10 GM PO (07:57)
[2020-12-03] MEDS: 0.9 % Sodium Chloride Flush 3 ML SYRINGE IVFLUSH (07:57)
[2020-12-03] MEDS: FLUoxetine HCl 20 MG CAPSULE PO (07:58)
[2020-12-03] MEDS: levoFLOXacin/D5W 500 MG/100 ML PIGGYBACK 100 MG IV (07:58)
[2020-12-03] MEDS: clonazePAM 0.5 MG TABLET PO (07:58)
[2020-12-03] MEDS: polyethylene glycoL 3350 17 GM POWD.PACK PO ×2 (07:58→20:54)
[2020-12-03] MEDS: Docusate Sodium 100 MG CAPSULE PO ×2 (07:58→20:55)
[2020-12-03] MEDS: cloZAPine 25 MG TABLET 50 MG PO (07:58)
[2020-12-03] MEDS: Albuterol Sulfate (0.083%) 2.5 MG/3 ML VIAL.NEB INHALE ×2 (08:02→12:44)
[2020-12-03] MEDS: Fluticasone Propionate 100 MCG BLST.W.DEV 1 PUFF INHALE (08:04)
[2020-12-03 08:44] LABS: Hematocrit 30.2 % (37-47); Hemoglobin 9.5 g/dl (12.0-16.0); Mean Corpuscular HGB Conc 31.5 g/dl (31.0-35.0); Mean Corpuscular Hemoglobin 29.2 pg (27.0-33.0); Mean Corpuscular Volume 92.9 fL (80-98); Mean Platelet Volume 11.1 fL (9.4-12.3); NRBC Pct Auto 0.1 /100WBC (0.0-0.2); Platelet Count 284 X10*3/uL (160-400); Red Blood Count 3.25 X10*6/uL (4.20-5.50); Red Cell Distribution Width 14.2 % (11.0-16.0); White Blood Count 13.7 X10*3/uL (4.8-10.8)
[2020-12-03 08:56] LABS: Anion Gap 14 (12-20); Blood Urea Nitrogen 5 mg/dL (9-16); Calcium 8.2 mg/dL (8.4-10.2); Carbon Dioxide 30 mmol/L (22-29); Chloride 101 mmol/L (96-108); Creatinine Clr Calc Pharmacy 121.6; Estimated Glomerular Filt Rate > 60; Glucose Random 83 mg/dL (60-115); Potassium 3.9 mmol/L (3.3-5.1); Sodium 141 mmol/L (135-145)
[2020-12-03] MEDS: metroNIDAZOLE/NS 500 MG/100 ML PIGGYBACK 100 MG IV ×2 (09:01→16:37)
[2020-12-03] MEDS: Acetaminophen 325 MG TABLET 650 MG PO (11:53)
--- NOTE | 2020-12-03 13:12 | HO.PM.IMPN ---
Subjective Subjective Date of Service: 12/03/20 <PATTIE Cody - Last Filed: 12/03/20 13:20> 12/03/20 <Raza Leyva MD - Last Filed: 12/03/20 13:38> Interval History: follow up for colitis/constipation, PNA some cough, no sob, no fever, chills no BM yet <PATTIE Cody - Last Filed: 12/03/20 13:20> Review of Systems Review of Systems: Yes all other systems are reviewed and are negative <PATTIE Cody - Last Filed: 12/03/20 13:20> Constitutional Constitutional: Denies chills and Denies fever(s) <PATTIE Cody - Last Filed: 12/03/20 13:20> Cardiovascular Cardiovascular: Denies chest pain <PATTIE Cody - Last Filed: 12/03/20 13:20> Respiratory Respiratory: Denies cough <PATTIE Cody - Last Filed: 12/03/20 13:20> Physical Exam Vital Signs: Vital Signs: Last Vital Signs Temp 99.0 F 12/03/20 11:21 Pulse 104 H 12/03/20 12:48 Resp 20 12/03/20 11:21 BP 107/58 L 12/03/20 11:21 Pulse Ox 94 12/03/20 11:21 Body Mass Index 35.7 <PATTIE Cody - Last Filed: 12/03/20 13:20> Const: General: no acute distress, alert and awake <PATTIE Cody - Last Filed: 12/03/20 13:20> Nutritional Appearance: well nourished <PATTIE Cody - Last Filed: 12/03/20 13:20> Orientation/consciousness: patient oriented x3 <PATTIE Cody - Last Filed: 12/03/20 13:20> HENMT: Head: Yes normocephalic and Yes atraumatic <PATTIE Cody - Last Filed: 12/03/20 13:20> Eyes: Sclerae: sclerae normal <PATTIE Cody - Last Filed: 12/03/20 13:20> Chest: Chest palpation & inspection: normal inspection of the chest <PATTIE Cody Last Filed: 12/03/20 13:20> Resp: Effort & Inspection: normal respiratory effort and no respiratory distress <PATTIE Cody - Last Filed: 12/03/20 13:20> Cardio: Rate: regular rate <PATTIE Cody Last Filed: 12/03/20 13:20> Rhythm: regular rhythm <PATTIE Cody - Last Filed: 12/03/20 13:20> GI: Other: softly distended, mild tenderness, improved; no guarding <PATTIE Cody Last Filed: 12/03/20 13:20> Neuro: General: patient oriented x3 <PATTIE Cody Last Filed: 12/03/20 13:20> Cranial nerves: Yes CN's II-XII intact bilaterally and Yes Bilaterally intact EOM present <PATTIE Cody Last Filed: 12/03/20 13:20> Extrem: Other: no edema <PATTIE Coyd Last Filed: 12/03/20 13:20> Objective Data Current Medications Generic Name Dose Route Start Last Admin Trade Name Julioq PRN Reason Stop Dose Admin Acetaminophen 650 mg 11/29/20 16:46 12/03/20 11:53 Acetaminophen 325 Mg Tablet PO 650 mg Q6H PRN Administration Pain, Mild (Pain Scale 1-3) Albuterol Sulfate 2.5 mg 11/30/20 09:00 12/03/20 12:44 Albuterol Sulfate (0.083%) 2.5 Mg/3 Ml Vial.Neb INHALE 2.5 mg RTID LAXMI Administration Albuterol Sulfate 2 puff 11/30/20 07:37 Albuterol Sulfate 90 Mcg 8 Gm Inhaler INHALE Q4H PRN Shortness Of Breath Clonazepam 0.5 mg 11/30/20 09:00 12/03/20 07:58 Clonazepam 0.5 Mg Tablet PO 0.5 mg DAILY LAXMI Administration Clonazepam 1 mg 11/30/20 21:00 12/02/20 20:26 Clonazepam 1 Mg Tablet PO 1 mg BEDTIME LAXMI Administration Clozapine 50 mg 11/30/20 09:00 12/03/20 07:58 Clozapine 25 Mg Tablet PO 50 mg DAILY LAXMI Administration Clozapine 300 mg 11/30/20 21:00 12/02/20 20:26 Clozapine 100 Mg Tablet PO 300 mg BEDTIME LAXMI Administration Divalproex Sodium 1,500 mg 11/30/20 21:00 12/02/20 20:26 Divalproex Sodium Er 500 Mg Tab.Er.24h PO 1,500 mg BEDTIME LAXMI Administration Docusate Sodium 100 mg 11/30/20 21:00 12/03/20 07:58 Docusate Sodium 100 Mg Capsule PO 100 mg BID LAXMI Administration Enoxaparin Sodium 40 mg 11/29/20 18:00 11/30/20 18:15 Enoxaparin Sodium 40 Mg/0.4 Ml Syringe SUBCUT 40 mg Q24H LAXMI Administration Fluoxetine HCl 20 mg 11/30/20 09:00 12/03/20 07:58 Fluoxetine Hcl 20 Mg Capsule PO 20 mg DAILY LAXMI Administration Fluticasone Propionate 1 puff 11/30/20 08:00 12/03/20 08:04 Fluticasone Propionate 100 Mcg Blst.W.Dev INHALE 1 puff RBID LAXMI Administration Levofloxacin 500 mg in 100 mls @ 100 mls/hr 11/30/20 07:45 12/03/20 08:58 Levaquin IV Infused Q24H LAXMI Infusion Metronidazole 500 mg in 100 mls @ 100 mls/hr 11/30/20 07:45 12/03/20 10:11 Flagyl IV Infused Q8H LAXMI Infusion Doxycycline Hyclate 100 mg/ 250 mls @ 166.67 mls/hr 12/02/20 15:00 12/03/20 04:24 Sodium Chloride IV Infused Q12H LAXMI Infusion Lactulose 10 gm 12/01/20 12:30 12/03/20 07:57 Lactulose 20 Gm/30 Ml Solution PO 10 gm DAILY LAXMI Administration Montelukast Sodium 10 mg 11/30/20 21:00 12/02/20 20:26 Montelukast Sodium 10 Mg Tablet PO 10 mg BEDTIME LAXMI Administration Morphine Sulfate 3 mg 12/01/20 11:37 12/03/20 07:57 Morphine Sulfate 4 Mg/Ml Cartridge IVPUSH 3 mg Q4H PRN Administration Pain, Severe (Pain Scale 7-10) Nicotine 21 mg 11/30/20 09:00 12/03/20 07:57 Nicotine 21 Mg Patch.Td24 TRANSDERMA 21 mg DAILY LAXMI Administration Omeprazole 20 mg 11/30/20 07:45 12/03/20 05:39 Omeprazole 20 Mg Capsule. PO 20 mg DAILY@0630 [facility] Administration Pharmacy Consult 1 each 11/29/20 16:58 Consult Rx Perform Med Rec MISCELLANE ONCE PRN Consult order Polyethylene Glycol 17 gm 11/30/20 21:00 12/03/20 07:58 Polyethylene Glycol 3350 17 Gm Powd.Pack PO 17 gm BID LAXMI Administration Senna 15 ml 11/30/20 21:00 12/02/20 20:25 Senna [place] Extract Oral Syrup 15 Ml Syrup PO 15 ml BEDTIME LAXMI Administration Sodium Chloride 3 ml 11/30/20 00:00 12/03/20 07:57 0.9 % Sodium Chloride Flush 3 Ml Syringe IVFLUSH 3 ml QSHIFT LAXMI Administration Tramadol HCl 25 mg 11/30/20 01:50 12/02/20 17:34 Tramadol Hcl 50 Mg Tablet PO 25 mg Q6H PRN Administration Breakthrough Pain <PATTIE Cody - Last Filed: 12/03/20 13:20> Labs CBC & Chem 7: : 12/03/20 07:35 12/03/20 07:35 <PATTIE Cody - Last Filed: 12/03/20 13:20> Microbiology Microbiology Results: Microbiology 12/02/20 09:25 Blood - Venous Blood Culture - Preliminary No growth after 24 hours. 12/02/20 09:34 Blood - Venous Blood Culture - Preliminary No growth after 24 hours. 11/29/20 17:37 Blood - Venous Blood Culture - Preliminary No growth after 48 hours. 11/29/20 17:37 Blood - Venous Blood Culture - Preliminary No growth after 48 hours. <PATTIE Cody - Last Filed: 12/03/20 13:20> Assessment and Plan (1) Colitis: Status: Acute <PATTIE Cody - Last Filed: 12/03/20 13:20> Assessment and Plan: This is a 55-year-old female was being treated on the inpatient psych floor and was subsequently transferred down to the medical floor for abdominal pain and profound hypotension as well as lactic acidosis found to have colitis, course now complicated by pneumonia. Colitis. Abdominal pain improving Concern over ischemic colitis, GI rec abx to prevent translocation of infection Repeat CT scan from 12/02 with no significant changes. Seen by surgery - feels component of ileus, no changes to bowel regimen, encourage ambulation -continue IV abx day #4 Left lower lobe Pneumonia -on levaquin, flagyl for colitis, doxycycline added -blood cultures neg x 24 hours -continue breathing treatments, cough syrup Normocytic Anemia. H/H stable overnight -Trend cbc -stool occult ordered, Constipation. Continue bowel regimen Lactulose, senna, colace, miralax, encourage ambulation Hypotension. Resolved Suspected hypovolemic and not secondary to sepsis or septic shock Improved with IV fluids Still remains slightly tachycardic will continue with IV hydration Hyponatremia. Resolved. Secondary to hypovolemia improved with fluids Lactic acidosis From dehydration and not sepsis Resolved with IV fluids Hyperkalemia Resolved Mood Continue the medications she was being treated with on M5 DVT ppx - mechanical devices Attending: Dr. Leyva <PATTIE Cody - Last Filed: 12/03/20 13:20> Attending Attestation: Patient seen and examined independently and I was present during whitaker portion of E/M service. Agree with PATTIE York's history, physical, assessment, and plan. <Raza Leyva MD - Last Filed: 12/03/20 13:38>
--- NOTE | 2020-12-03 13:25 | PM.PNGS ---
Subjective Subjective Date of Service: 12/03/20 Interval history: Patient reports her pain is no different than what it was when she was 1st admitted. She is sitting up in a chair and appears comfortable however. White blood cell count has decreased from 17-[address] scan from yesterday is no different than previous CT scan of the abdomen and pelvis. Patient has not had a bowel movement in the past 3 days. She still complains of abdominal bloating. She denies nausea or vomiting. Physical Exam Vital Signs: Vital Signs: Last Vital Signs Temp 99.0 F 12/03/20 11:21 Pulse 104 H 12/03/20 12:48 Resp 20 12/03/20 11:21 BP 107/58 L 12/03/20 11:21 Pulse Ox 94 12/03/20 11:21 Body Mass Index 35.7 Const: Other: Sitting in chair comfortable in no apparent distress General: cooperative, comfortable, no acute distress, alert and awake Nutritional Appearance: obese Orientation/consciousness: patient oriented x3 HENMT: Head: Yes normal to inspection, Yes normocephalic and Yes atraumatic Eyes: Sclerae: sclerae normal and scleral abnormal (Course color or mild icterus) EOM: EOMs intact bilaterally Neck: Neck: Yes normal visual inspection, No lymphadenopathy and Yes no JVD Thyroid: Thyroid normal Chest: Chest palpation & inspection: normal inspection of the chest Resp: Effort & Inspection: normal respiratory effort, no cough and no respiratory distress Auscultation: clear to auscultation bilaterally Cardio: Rate: regular rate and tachycardic (Slightly) Rhythm: regular rhythm Heart sounds: S1 normal heart sound present, S2 normal heart sound present, no click, no gallops and no murmurs GI: Other: softly distended, mild tenderness, improved; no guarding, tympany to palpation Skin: General skin exam: no rashes or lesions noted Neuro: General: patient oriented x3 Cranial nerves: Yes CN's II-XII intact bilaterally and Yes Bilaterally intact EOM present Extrem: Other: no edema Progress Note: A&P Assessment and plan (1) Colitis: Status: Acute Assessment and Plan: Colitis likely due to patient's episode of hypotension a few days ago. No changes on CT scan there is still evidence of inflammatory changes in the left colon and descending colon. Patient may start on clear liquids. Continue current bowel regimen. Patient likely has an element of ileus given the clinical situation. Would encourage patient out of bed and ambulating to encourage return of bowel function. Continue antibiotics as you already are. No indication for any surgical intervention. Please call with questions. Diet may be advanced as patient tolerates and has more evidence of bowel function such is passing gas from her bottom and having bowel movements. Fall Risk Details Current Medications: Current Medications Generic Name Dose Route Start Last Admin Trade Name Freq PRN Reason Stop Dose Admin Acetaminophen 650 mg 11/29/20 16:46 12/03/20 11:53 Acetaminophen 325 Mg Tablet PO 650 mg Q6H PRN Administration Pain, Mild (Pain Scale 1-3) Albuterol Sulfate 2.5 mg 11/30/20 09:00 12/03/20 12:44 Albuterol Sulfate (0.083%) 2.5 Mg/3 Ml Vial.Neb INHALE 2.5 mg RTID LAXMI Administration Albuterol Sulfate 2 puff 11/30/20 07:37 Albuterol Sulfate 90 Mcg 8 Gm Inhaler INHALE Q4H PRN Shortness Of Breath Clonazepam 0.5 mg 11/30/20 09:00 12/03/20 07:58 Clonazepam 0.5 Mg Tablet PO 0.5 mg DAILY LAXMI Administration Clonazepam 1 mg 11/30/20 21:00 12/02/20 20:26 Clonazepam 1 Mg Tablet PO 1 mg BEDTIME LAXMI Administration Clozapine 50 mg 11/30/20 09:00 12/03/20 07:58 Clozapine 25 Mg Tablet PO 50 mg DAILY LAXMI Administration Clozapine 300 mg 11/30/20 21:00 12/02/20 20:26 Clozapine 100 Mg Tablet PO 300 mg BEDTIME LAXMI Administration Divalproex Sodium 1,500 mg 11/30/20 21:00 12/02/20 20:26 Divalproex Sodium Er 500 Mg Tab.Er.24h PO 1,500 mg BEDTIME LAXMI Administration Docusate Sodium 100 mg 11/30/20 21:00 12/03/20 07:58 Docusate Sodium 100 Mg Capsule PO 100 mg BID LAXMI Administration Enoxaparin Sodium 40 mg 11/29/20 18:00 11/30/20 18:15 Enoxaparin Sodium 40 Mg/0.4 Ml Syringe SUBCUT 40 mg Q24H LAXMI Administration Fluoxetine HCl 20 mg 11/30/20 09:00 12/03/20 07:58 Fluoxetine Hcl 20 Mg Capsule PO 20 mg DAILY LAXMI Administration Fluticasone Propionate 1 puff 11/30/20 08:00 12/03/20 08:04 Fluticasone Propionate 100 Mcg Blst.W.Dev INHALE 1 puff RBID LAXMI Administration Guaifenesin 10 ml 12/03/20 13:17 Guaifenesin 100 Mg/5 Ml Liquid PO Q6H PRN Cough Levofloxacin 500 mg in 100 mls @ 100 mls/hr 11/30/20 07:45 12/03/20 08:58 Levaquin IV Infused Q24H LAXMI Infusion Metronidazole 500 mg in 100 mls @ 100 mls/hr 11/30/20 07:45 12/03/20 10:11 Flagyl IV Infused Q8H LAXMI Infusion Doxycycline Hyclate 100 mg/ 250 mls @ 166.67 mls/hr 12/02/20 15:00 12/03/20 04:24 Sodium Chloride IV Infused Q12H LAXMI Infusion Lactulose 10 gm 12/01/20 12:30 12/03/20 07:57 Lactulose 20 Gm/30 Ml Solution PO 10 gm DAILY LAXMI Administration Montelukast Sodium 10 mg 11/30/20 21:00 12/02/20 20:26 Montelukast Sodium 10 Mg Tablet PO 10 mg BEDTIME LAXMI Administration Morphine Sulfate 3 mg 12/01/20 11:37 12/03/20 07:57 Morphine Sulfate 4 Mg/Ml Cartridge IVPUSH 3 mg Q4H PRN Administration Pain, Severe (Pain Scale 7-10) Nicotine 21 mg 11/30/20 09:00 12/03/20 07:57 Nicotine 21 Mg Patch.Td24 TRANSDERMA 21 mg DAILY LAXMI Administration Omeprazole 20 mg 11/30/20 07:45 12/03/20 05:39 Omeprazole 20 Mg Capsule. PO 20 mg DAILY@0630 [facility] Administration Pharmacy Consult 1 each 11/29/20 16:58 Consult Rx Perform Med Rec MISCELLANE ONCE PRN Consult order Polyethylene Glycol 17 gm 11/30/20 21:00 12/03/20 07:58 Polyethylene Glycol 3350 17 Gm Powd.Pack PO 17 gm BID LAXMI Administration Senna 15 ml 11/30/20 21:00 12/02/20 20:25 Senna [place] Extract Oral Syrup 15 Ml Syrup PO 15 ml BEDTIME LAXMI Administration Sodium Chloride 3 ml 11/30/20 00:00 12/03/20 07:57 0.9 % Sodium Chloride Flush 3 Ml Syringe IVFLUSH 3 ml QSHIFT LAXMI Administration Tramadol HCl 25 mg 11/30/20 01:50 12/02/20 17:34 Tramadol Hcl 50 Mg Tablet PO 25 mg Q6H PRN Administration Breakthrough Pain Time Spent With Patient Time: Total time spent is greater than 50% in coordination of care (as documented) at patient's floor/unit and/or counseling patient: Time with patient: 15 - 24 minutes
[2020-12-03] MEDS: Doxycycline Hyclate 100 MG in 0.9 % Sodium Chloride 250 ML 166.67 MG IV (14:45)
[2020-12-03] MEDS: traMADoL HCL 50 MG TABLET 25 MG PO (14:45)
[2020-12-03] MEDS: Montelukast Sodium 10 MG TABLET PO (20:55)
[2020-12-03] MEDS: clonazePAM 1 MG TABLET PO (20:55)
[2020-12-03] MEDS: cloZAPine 100 MG TABLET 300 MG PO (20:56)
[2020-12-03] MEDS: Divalproex Sodium ER 500 MG TAB.ER.24H 1500 MG PO (20:56)
[2020-12-04] MEDS: metroNIDAZOLE/NS 500 MG/100 ML PIGGYBACK 100 MG IV ×3 (00:25→15:53)
[2020-12-04] MEDS: 0.9 % Sodium Chloride Flush 3 ML SYRINGE IVFLUSH ×4 (00:25→20:33)
[2020-12-04 04:00] VITALS: BP 117/62; PULSE 102; RESP 18; TEMP 36.6; O2SAT 94
[2020-12-04] MEDS: Doxycycline Hyclate 100 MG in 0.9 % Sodium Chloride 250 ML 166.67 MG IV (04:03)
[2020-12-04] MEDS: Omeprazole 20 MG CAPSULE.DR PO (06:24)
[2020-12-04] MEDS: traMADoL HCL 50 MG TABLET 25 MG PO ×2 (06:24→15:53)
[2020-12-04 07:14] LABS: Hematocrit 32.1 % (37-47); Mean Corpuscular HGB Conc 31.2 g/dl (31.0-35.0); Mean Corpuscular Hemoglobin 29.3 pg (27.0-33.0); Mean Corpuscular Volume 94.1 fL (80-98); NRBC Pct Auto 0.4 /100WBC (0.0-0.2); Platelet Count 308 X10*3/uL (160-400); Red Blood Count 3.41 X10*6/uL (4.20-5.50); Red Cell Distribution Width 14.1 % (11.0-16.0)
[2020-12-04 07:16] VITALS: BP 104/64; PULSE 98; RESP 18; TEMP 36.3; O2SAT 95
[2020-12-04] MEDS: levoFLOXacin/D5W 500 MG/100 ML PIGGYBACK 100 MG IV (07:26)
[2020-12-04] MEDS: Albuterol Sulfate (0.083%) 2.5 MG/3 ML VIAL.NEB INHALE (07:35)
[2020-12-04 07:36] VITALS: PULSE 103; O2SAT 96
[2020-12-04] MEDS: Fluticasone Propionate 100 MCG BLST.W.DEV 1 PUFF INHALE (07:36)
[2020-12-04 07:43] LABS: Anion Gap 14 (12-20); Blood Urea Nitrogen 6 mg/dL (9-16); Calcium 8.4 mg/dL (8.4-10.2); Carbon Dioxide 30 mmol/L (22-29); Chloride 102 mmol/L (96-108); Creatinine Clr Calc Pharmacy 110.8; Estimated Glomerular Filt Rate > 60; Glucose Random 86 mg/dL (60-115); Sodium 142 mmol/L (135-145)
[2020-12-04] MEDS: Docusate Sodium 100 MG CAPSULE PO ×2 (09:22→20:33)
[2020-12-04] MEDS: FLUoxetine HCl 20 MG CAPSULE PO (09:22)
[2020-12-04] MEDS: Lactulose 20 GM/30 ML SOLUTION 10 GM PO (09:22)
[2020-12-04] MEDS: cloZAPine 25 MG TABLET 50 MG PO (09:22)
[2020-12-04] MEDS: clonazePAM 0.5 MG TABLET PO (09:22)
[2020-12-04] MEDS: polyethylene glycoL 3350 17 GM POWD.PACK PO ×2 (09:22→20:32)
[2020-12-04] MEDS: Nicotine 21 MG PATCH.TD24 TRANSDERMA (09:23)
[2020-12-04 11:32] VITALS: BP 112/63; PULSE 95; RESP 18; TEMP 36.2; O2SAT 95
--- NOTE | 2020-12-04 12:06 | HO.PM.IMPN ---
Subjective Subjective Date of Service: 12/04/20 <Olya Beckwith NP - Last Filed: 12/04/20 14:04> 12/04/20 <Sarah Perea MD - Last Filed: 12/04/20 15:12> Interval History: Follow up colitis/ileus. Had a bowel movement last night. Abdominal pain improving. <Olya Beckwith NP - Last Filed: 12/04/20 14:04> Physical Exam Vital Signs: Vital Signs: Last Vital Signs Temp 97.2 F 12/04/20 11:32 Pulse 95 12/04/20 11:32 Resp 18 12/04/20 11:32 BP 112/63 12/04/20 11:32 Pulse Ox 95 12/04/20 11:32 Body Mass Index 35.7 <Olya Beckwith NP - Last Filed: 12/04/20 14:04> Appearing in no acute distress lung sounds are clear to auscultation heart regular rate rhythm, clear S1, S2 positive bowel sounds, Mild abdominal tenderness diffuse, obese abdomen neuro patient is alert x3, no focal deficits <Olya Beckwith NP - Last Filed: 12/04/20 14:04> Objective Data Current Medications Generic Name Dose Route Start Last Admin Trade Name Freq PRN Reason Stop Dose Admin Acetaminophen 650 mg 11/29/20 16:46 12/03/20 11:53 Acetaminophen 325 Mg Tablet PO 650 mg Q6H PRN Administration Pain, Mild (Pain Scale 1-3) Albuterol Sulfate 2.5 mg 11/30/20 09:00 12/04/20 07:35 Albuterol Sulfate (0.083%) 2.5 Mg/3 Ml Vial.Neb INHALE 2.5 mg RTID LAXMI Administration Albuterol Sulfate 2 puff 11/30/20 07:37 Albuterol Sulfate 90 Mcg 8 Gm Inhaler INHALE Q4H PRN Shortness Of Breath Clonazepam 0.5 mg 11/30/20 09:00 12/04/20 09:22 Clonazepam 0.5 Mg Tablet PO 0.5 mg DAILY LAXMI Administration Clonazepam 1 mg 11/30/20 21:00 12/03/20 20:55 Clonazepam 1 Mg Tablet PO 1 mg BEDTIME LAXMI Administration Clozapine 50 mg 11/30/20 09:00 12/04/20 09:22 Clozapine 25 Mg Tablet PO 50 mg DAILY LAXMI Administration Clozapine 300 mg 11/30/20 21:00 12/03/20 20:56 Clozapine 100 Mg Tablet PO 300 mg BEDTIME LAXMI Administration Divalproex Sodium 1,500 mg 11/30/20 21:00 12/03/20 20:56 Divalproex Sodium Er 500 Mg Tab.Er.24h PO 1,500 mg BEDTIME LAXMI Administration Docusate Sodium 100 mg 11/30/20 21:00 12/04/20 09:22 Docusate Sodium 100 Mg Capsule PO 100 mg BID LAXMI Administration Enoxaparin Sodium 40 mg 11/29/20 18:00 11/30/20 18:15 Enoxaparin Sodium 40 Mg/0.4 Ml Syringe SUBCUT 40 mg Q24H LAXMI Administration Fluoxetine HCl 20 mg 11/30/20 09:00 12/04/20 09:22 Fluoxetine Hcl 20 Mg Capsule PO 20 mg DAILY LAXMI Administration Fluticasone Propionate 1 puff 11/30/20 08:00 12/04/20 07:36 Fluticasone Propionate 100 Mcg Blst.W.Dev INHALE 1 puff RBID LAXMI Administration Guaifenesin 10 ml 12/03/20 13:17 Guaifenesin 100 Mg/5 Ml Liquid PO Q6H PRN Cough Levofloxacin 500 mg in 100 mls @ 100 mls/hr 11/30/20 07:45 12/04/20 09:07 Levaquin IV Infused Q24H LAXMI Infusion Metronidazole 500 mg in 100 mls @ 100 mls/hr 11/30/20 07:45 12/04/20 10:36 Flagyl IV Infused Q8H LAXMI Infusion Doxycycline Hyclate 100 mg/ 250 mls @ 166.67 mls/hr 12/02/20 15:00 12/04/20 06:20 Sodium Chloride IV Infused Q12H LAXMI Infusion Lactulose 10 gm 12/01/20 12:30 12/04/20 09:22 Lactulose 20 Gm/30 Ml Solution PO 10 gm DAILY LAXMI Administration Montelukast Sodium 10 mg 11/30/20 21:00 12/03/20 20:55 Montelukast Sodium 10 Mg Tablet PO 10 mg BEDTIME LAXMI Administration Morphine Sulfate 3 mg 12/01/20 11:37 12/03/20 19:33 Morphine Sulfate 4 Mg/Ml Cartridge IVPUSH 3 mg Q4H PRN Administration Pain, Severe (Pain Scale 7-10) Nicotine 21 mg 11/30/20 09:00 12/04/20 09:23 Nicotine 21 Mg Patch.Td24 TRANSDERMA 21 mg DAILY LAXMI Administration Omeprazole 20 mg 11/30/20 07:45 12/04/20 06:24 Omeprazole 20 Mg Capsule. PO 20 mg DAILY@0630 LAXMI Administration Pharmacy Consult 1 each 11/29/20 16:58 Consult Rx Perform Med Rec MISCELLANE ONCE PRN Consult order Polyethylene Glycol 17 gm 11/30/20 21:00 12/04/20 09:22 Polyethylene Glycol 3350 17 Gm Powd.Pack PO 17 gm BID LAXMI Administration Senna 15 ml 11/30/20 21:00 12/03/20 20:51 Senna [place] Extract Oral Syrup 15 Ml Syrup PO 15 ml BEDTIME LAXMI Administration Sodium Chloride 3 ml 11/30/20 00:00 12/04/20 07:26 0.9 % Sodium Chloride Flush 3 Ml Syringe IVFLUSH 3 ml QSHIFT LAXMI Administration Tramadol HCl 25 mg 11/30/20 01:50 12/04/20 06:24 Tramadol Hcl 50 Mg Tablet PO 25 mg Q6H PRN Administration Breakthrough Pain <Olya Beckwith NP - Last Filed: 12/04/20 14:04> Labs CBC & Chem 7: : 12/04/20 06:34 12/04/20 06:34 <Olya Beckwith NP - Last Filed: 12/04/20 14:04> Microbiology Microbiology Results: Microbiology 12/02/20 09:25 Blood - Venous Blood Culture - Preliminary No growth after 48 hours. 12/02/20 09:34 Blood - Venous Blood Culture - Preliminary No growth after 48 hours. 11/29/20 17:37 Blood - Venous Blood Culture - Preliminary No growth after 48 hours. 11/29/20 17:37 Blood - Venous Blood Culture - Preliminary No growth after 48 hours. <Olya Beckwith NP - Last Filed: 12/04/20 14:04> Assessment and Plan (1) Colitis: Status: Acute <Olya Beckwith NP - Last Filed: 12/04/20 14:04> Assessment and Plan: This is a 55-year-old female was being treated on the inpatient psych floor and was subsequently transferred down to the medical floor for abdominal pain and profound hypotension as well as lactic acidosis found to have colitis, course now complicated by pneumonia. Colitis. Abdominal pain improving. Concern over ischemic colitis, GI rec abx to prevent translocation of infection. Still some inflammatory changes on CT. -continue IV abx day #4 -bowel regimen Ileus. Bowel movement last night. -seen and examined by General surgery with recommendation to advanced diet as tolerated continue bowel regimen -Encouraged out of bed to chair to increase movement and bowel function Left lower lobe Pneumonia. Not currently requiring supplemental oxygen - continue levaquin, flagyl for colitis, stop doxycycline -negative blood cx -add IS Normocytic Anemia. H/h drifting down. Likely dilutional from IV fluids -Trend cbc -stool occult ordered Constipation. Continue bowel regimen Lactulose, senna, colace, miralax Hypotension. Resolved Suspected hypovolemic and not secondary to sepsis or septic shock Improved with IV fluids Still remains slightly tachycardic will continue with IV hydration Hyponatremia. Resolved. Secondary to hypovolemia improved with fluids Lactic acidosis From dehydration and not sepsis Resolved with IV fluids Hyperkalemia Resolved Mood Continue the medications she was being treated with on M5 DISPO: Home when medically cleared. DVT ppx - mechanical devices Attending: Dr. Perea <Olya Beckwith NP - Last Filed: 12/04/20 14:04>
[2020-12-04 15:40] VITALS: BP 123/77; PULSE 98; RESP 20; TEMP 36.3; O2SAT 95
[2020-12-04] MEDS: Morphine Sulfate 4 MG/ML CARTRIDGE 3 MG IVPUSH (19:21)
[2020-12-04 19:42] VITALS: BP 127/70; PULSE 92; RESP 20; TEMP 37.4; O2SAT 95
[2020-12-04] MEDS: clonazePAM 1 MG TABLET PO (20:33)
[2020-12-04] MEDS: Montelukast Sodium 10 MG TABLET PO (20:33)
[2020-12-04] MEDS: Divalproex Sodium ER 500 MG TAB.ER.24H 1500 MG PO (20:33)
[2020-12-04] MEDS: cloZAPine 100 MG TABLET 300 MG PO (20:33)
[2020-12-05] VITALS (12 sets, daily range): BP systolic 111–149; BP diastolic 62–81; PULSE 86–105; RESP 16–18; TEMP 36.1–36.8; O2SAT 92–98
[2020-12-05] MEDS: metroNIDAZOLE/NS 500 MG/100 ML PIGGYBACK 100 MG IV ×4 (00:21→23:12)
[2020-12-05] MEDS: traMADoL HCL 50 MG TABLET 25 MG PO (00:24)
[2020-12-05] MEDS: Morphine Sulfate 4 MG/ML CARTRIDGE 3 MG IVPUSH ×3 (04:33→14:46)
[2020-12-05] MEDS: Omeprazole 20 MG CAPSULE.DR PO (05:42)
[2020-12-05 07:14] LABS: Hemoglobin 9.2 g/dl (12.0-16.0); Mean Corpuscular HGB Conc 31.7 g/dl (31.0-35.0); Mean Corpuscular Hemoglobin 29.7 pg (27.0-33.0); Mean Corpuscular Volume 93.5 fL (80-98); Mean Platelet Volume 10.4 fL (9.4-12.3); NRBC Pct Auto 0.4 /100WBC (0.0-0.2); Platelet Count 315 X10*3/uL (160-400); White Blood Count 9.4 X10*3/uL (4.8-10.8)
[2020-12-05] MEDS: levoFLOXacin/D5W 500 MG/100 ML PIGGYBACK 100 MG IV (07:14)
[2020-12-05] MEDS: 0.9 % Sodium Chloride Flush 3 ML SYRINGE IVFLUSH ×3 (07:15→20:31)
[2020-12-05] MEDS: Fluticasone Propionate 100 MCG BLST.W.DEV 1 PUFF INHALE ×2 (07:57→20:23)
[2020-12-05] MEDS: Albuterol Sulfate (0.083%) 2.5 MG/3 ML VIAL.NEB INHALE ×3 (07:57→20:23)
[2020-12-05 08:26] LABS: Atypical Lymph Absolute Manual 0.3 x10*3/uL; Atypical Lymphs Percent Manual 3 % (0-6); Band Neutrophils Percent 16 % (3-5); Basophils Abs Manual 0.1 X10*3/uL (0.0-0.3); Basophils Percent Manual 1 % (0-1); Lymphocytes Absolute Manual 3.3 X10*3/uL (0.6-4.8); Lymphocytes Percent Manual 35 % (20-40); Metamyelocytes Absolute 0.3 X10*3/uL; Metamyelocytes Percent 3 %; Microcytosis 1+ (5-14) /OIF; Monocytes Absolute Manual 0.5 X10*3/uL (0.0-1.2); Monocytes Percent Manual 5 % (2-11); Myelocytes Absolute 0.2 X10*/uL; Myelocytes Percent 2 %; Neutrophils Absolute Manual 4.6 X10*3/uL (2.2-7.9); Neutrophils Percent Manual 33 % (45-73); Nucleated Red Blood Cells 1 /100WBC (0-0); Promyelocytes Absolute 0.2 X10*3/uL; Promyelocytes Percent 2 %; RBC Morphology NOTED
[2020-12-05 08:27] LABS: Platelet Estimate NORMAL (NORMAL); Platelet Morphology Comment NORMAL
[2020-12-05] MEDS: FLUoxetine HCl 20 MG CAPSULE PO (08:27)
[2020-12-05] MEDS: Docusate Sodium 100 MG CAPSULE PO (08:27)
[2020-12-05] MEDS: clonazePAM 0.5 MG TABLET PO (08:27)
[2020-12-05] MEDS: Nicotine 21 MG PATCH.TD24 TRANSDERMA (08:28)
[2020-12-05] MEDS: Lactulose 20 GM/30 ML SOLUTION 10 GM PO (08:28)
[2020-12-05] MEDS: cloZAPine 25 MG TABLET 50 MG PO (08:28)
[2020-12-05] MEDS: polyethylene glycoL 3350 17 GM POWD.PACK PO (08:28)
--- NOTE | 2020-12-05 12:32 | P.PNIM_ITS ---
Subjective Subjective Date of Service: 12/05/20 Interval History: Follow up colitis. Still with some mild abdominal tenderness. passing flatus and had BM last night. OOB in chair, ambulating in the room. Physical Exam Vital Signs: Vital Signs: Last Vital Signs Temp 97.0 F 12/05/20 12:00 Pulse 97 12/05/20 12:00 Resp 16 12/05/20 12:00 BP 131/81 12/05/20 12:00 Pulse Ox 98 12/05/20 12:00 Body Mass Index 35.7 Appearing in no acute distress lung sounds normal expansion heart regular rate rhythm, clear S1, S2 positive bowel sounds, still with some mild abdominal tenderness neuro patient is alert x3, no focal deficits Objective Data Current Medications Generic Name Dose Route Start Last Admin Trade Name Freq PRN Reason Stop Dose Admin Acetaminophen 650 mg 11/29/20 16:46 12/03/20 11:53 Acetaminophen 325 Mg Tablet PO 650 mg Q6H PRN Administration Pain, Mild (Pain Scale 1-3) Albuterol Sulfate 2.5 mg 11/30/20 09:00 12/05/20 07:57 Albuterol Sulfate (0.083%) 2.5 Mg/3 Ml Vial.Neb INHALE 2.5 mg RTID LAXMI Administration Albuterol Sulfate 2 puff 11/30/20 07:37 Albuterol Sulfate 90 Mcg 8 Gm Inhaler INHALE Q4H PRN Shortness Of Breath Clonazepam 1 mg 11/30/20 21:00 12/04/20 20:33 Clonazepam 1 Mg Tablet PO 1 mg BEDTIME LAXMI Administration Clozapine 50 mg 11/30/20 09:00 12/05/20 08:28 Clozapine 25 Mg Tablet PO 50 mg DAILY LAXMI Administration Clozapine 300 mg 11/30/20 21:00 12/04/20 20:33 Clozapine 100 Mg Tablet PO 300 mg BEDTIME LAXMI Administration Divalproex Sodium 1,500 mg 11/30/20 21:00 12/04/20 20:33 Divalproex Sodium Er 500 Mg Tab.Er.24h PO 1,500 mg BEDTIME LAXMI Administration Docusate Sodium 100 mg 11/30/20 21:00 12/05/20 08:27 Docusate Sodium 100 Mg Capsule PO 100 mg BID LAXMI Administration Enoxaparin Sodium 40 mg 11/29/20 18:00 11/30/20 18:15 Enoxaparin Sodium 40 Mg/0.4 Ml Syringe SUBCUT 40 mg Q24H LAXMI Administration Fluoxetine HCl 20 mg 11/30/20 09:00 12/05/20 08:27 Fluoxetine Hcl 20 Mg Capsule PO 20 mg DAILY LAXMI Administration Fluticasone Propionate 1 puff 11/30/20 08:00 12/05/20 07:57 Fluticasone Propionate 100 Mcg Blst.W.Dev INHALE 1 puff RBID LAXMI Administration Guaifenesin 10 ml 12/03/20 13:17 Guaifenesin 100 Mg/5 Ml Liquid PO Q6H PRN Cough Levofloxacin 500 mg in 100 mls @ 100 mls/hr 11/30/20 07:45 12/05/20 08:20 Levaquin IV Infused Q24H LAXMI Infusion Metronidazole 500 mg in 100 mls @ 100 mls/hr 11/30/20 07:45 12/05/20 09:56 Flagyl IV Infused Q8H LAXMI Infusion Lactulose 10 gm 12/01/20 12:30 12/05/20 08:28 Lactulose 20 Gm/30 Ml Solution PO 10 gm DAILY LAXMI Administration Montelukast Sodium 10 mg 11/30/20 21:00 12/04/20 20:33 Montelukast Sodium 10 Mg Tablet PO 10 mg BEDTIME LAXMI Administration Morphine Sulfate 3 mg 12/01/20 11:37 12/05/20 10:24 Morphine Sulfate 4 Mg/Ml Cartridge IVPUSH 3 mg Q4H PRN Administration Pain, Severe (Pain Scale 7-10) Nicotine 21 mg 11/30/20 09:00 12/05/20 08:28 Nicotine 21 Mg Patch.Td24 TRANSDERMA 21 mg DAILY LAXMI Administration Omeprazole 20 mg 11/30/20 07:45 12/05/20 05:42 Omeprazole 20 Mg Capsule. PO 20 mg DAILY@0630 LAXMI Administration Pharmacy Consult 1 each 11/29/20 16:58 Consult Rx Perform Med Rec MISCELLANE ONCE PRN Consult order Polyethylene Glycol 17 gm 11/30/20 21:00 12/05/20 08:28 Polyethylene Glycol 3350 17 Gm Powd.Pack PO 17 gm BID LAXMI Administration Senna 15 ml 11/30/20 21:00 12/04/20 20:32 Senna [place] Extract Oral Syrup 15 Ml Syrup PO 15 ml BEDTIME LAXMI Administration Sodium Chloride 3 ml 11/30/20 00:00 12/05/20 07:15 0.9 % Sodium Chloride Flush 3 Ml Syringe IVFLUSH 3 ml QSHIFT LAXMI Administration Labs CBC & Chem 7: 12/05/20 06:45 12/04/20 06:34 Microbiology Microbiology Results: Microbiology 11/29/20 17:37 Blood - Venous Blood Culture - Final No growth after 5 days. 11/29/20 17:37 Blood - Venous Blood Culture - Final No growth after 5 days. 12/02/20 09:25 Blood - Venous Blood Culture - Preliminary No growth after 48 hours. 12/02/20 09:34 Blood - Venous Blood Culture - Preliminary No growth after 48 hours. Assessment and Plan (1) Colitis: Status: Acute Assessment and Plan: This is a 55-year-old female was being treated on the inpatient psych floor and was subsequently transferred down to the medical floor for abdominal pain and profound hypotension as well as lactic acidosis found to have colitis, course now complicated by pneumonia. Colitis. Abdominal pain improving, but still there. Concern over ischemic colitis, GI rec abx to prevent translocation of infection. Still some inflammat ory changes on CT. -continue IV abx day #5 -bowel regimen - fiber diet -Stop lactulose, may be contributing to continued abdominal pain -Check Lactic acid, LFT and lipase Ileus. Bowel movement last night. -seen and examined by General surgery with recommendation to advanced diet as tolerated continue bowel regimen -Encouraged out of bed to chair to increase movement and bowel function Left lower lobe Pneumonia. Not currently requiring supplemental oxygen - continue levaquin, flagyl for colitis, levaquin will cover pna -negative blood cx -add IS Normocytic Anemia. H/h drifting down. Likely dilutional from IV fluids -Trend cbc -stool occult ordered Constipation. Continue bowel regimen Lactulose, senna, colace, miralax Hypotension. Resolved Suspected hypovolemic and not secondary to sepsis or septic shock Improved with IV fluids Still remains slightly tachycardic will continue with IV hydration Hyponatremia. Resolved. Secondary to hypovolemia improved with fluids Lactic acidosis From dehydration and not sepsis Resolved with IV fluids Hyperkalemia Resolved Mood Continue the medications she was being treated with on M5 DISPO: Home when medically cleared. DVT ppx - mechanical devices Attending: Dr. Perea
[2020-12-05 16:47] LABS: Lactic Acid 0.8 mmol/L (0.5-2.0)
[2020-12-05 16:52] LABS: Alanine Aminotransferase 30 U/L (0-31); Albumin Level 3.3 g/dL (3.5-5.0); Alkaline Phosphatase 73 U/L (39-117); Aspartate Amino Transferase 25 U/L (5-31); Bilirubin Direct < 0.2 mg/dL (0.0-0.5); Bilirubin Total 0.4 mg/dL (0.0-1.0); Lipase 12 U/L (8-78); Total Protein 5.5 g/dL (6.5-8.0)
--- NOTE | 2020-12-05 18:43 | PC.NURSE ---
Pt c/o lymph nodes around neck feeling swollen. Tender to palpate. Minimal pain with swallowing. Olya BLANKENSHIP made aware. No new orders at this time.
[2020-12-05] MEDS: cloZAPine 100 MG TABLET 300 MG PO (20:30)
[2020-12-05] MEDS: Divalproex Sodium ER 500 MG TAB.ER.24H 1500 MG PO (20:30)
[2020-12-05] MEDS: clonazePAM 1 MG TABLET PO (20:30)
[2020-12-05] MEDS: Montelukast Sodium 10 MG TABLET PO (20:31)
[2020-12-06 01:00] VITALS: BMI 35.5
[2020-12-06 03:43] VITALS: BP 129/58; PULSE 95; RESP 18; TEMP 36.8; O2SAT 94
[2020-12-06 04:28] LABS: Glucose, Whole Blood 94 mg/dL (60-115)
[2020-12-06] MEDS: Omeprazole 20 MG CAPSULE.DR PO (06:14)
[2020-12-06] MEDS: levoFLOXacin/D5W 500 MG/100 ML PIGGYBACK 100 MG IV (07:23)
[2020-12-06] MEDS: 0.9 % Sodium Chloride Flush 3 ML SYRINGE IVFLUSH (07:28)
[2020-12-06] MEDS: Albuterol Sulfate (0.083%) 2.5 MG/3 ML VIAL.NEB INHALE (07:40)
[2020-12-06 07:43] VITALS: PULSE 91; O2SAT 94
[2020-12-06] MEDS: Fluticasone Propionate 100 MCG BLST.W.DEV 1 PUFF INHALE (07:43)
[2020-12-06 08:00] VITALS: BP 142/77; PULSE 91; RESP 20; TEMP 36.6; O2SAT 91
[2020-12-06] MEDS: metroNIDAZOLE/NS 500 MG/100 ML PIGGYBACK 100 MG IV (08:32)
--- NOTE | 2020-12-06 08:35 | MHC.CM.PN ---
CM ATTEMPTED TO CONTACT PT'S [facility]D STITCHING MACHINE SETTER ELSY WELDON AT [phone] ([phone]) REGARDING PT'S DISCHARGE TODAY AND TRANSPORT HOME, MESSAGE LEFT W/CM CONTACT NUMBER.
--- NOTE | 2020-12-06 08:47 | MHC.CM.PN ---
CM ATTEMPTED TO CALL PT'S [facility]D PRIMARY TEACHER JERI AT [phone] ([phone]) REGARDING PT'S D/C WITH NO ANSWER, CM ATTEMPTED TO CALL PT'S FOSTER MOM JOSE ENRIQUE AT 0845 REGARDING D/C, NO ANSWER MESSAGE LEFT TO CALL CM REGARDING D/C TODAY.
--- NOTE | 2020-12-06 09:04 | MHC.CM.PN ---
IM RECEIVED RETURN PHONE CALL FROM PT'S CHD WORKER ELSY AT [phone], PER CHD WORKER SHE CAN PRIVATE DUTY RN PT AT 1PM TODAY, JOSE ENRIQUE PT'S AF MOM JOSE ENRIQUE CALLED AT [phone] AND IS AWARE PT'S DISCHARGE TODAY. DISCHARGE PLAN: HOME W/[facility]UMP OF [facility] AND [facility] OUTREACH, ELSY (CHD) TO TRANSPORT.
[2020-12-06] MEDS: cloZAPine 25 MG TABLET 50 MG PO (09:13)
[2020-12-06] MEDS: FLUoxetine HCl 20 MG CAPSULE PO (09:13)
[2020-12-06] MEDS: Nicotine 21 MG PATCH.TD24 TRANSDERMA (09:13)
--- NOTE | 2020-12-06 10:49 | PM.DS ---
DS: Providers Provider Date of Service: 12/06/20 <Olya Beckwith NP - Last Filed: 12/06/20 10:58> 12/06/20 <Raza Leyva MD - Last Filed: 12/06/20 15:41> Date of admission: 11/29/20 16:16 <Olya Beckwith NP - Last Filed: 12/06/20 10:58> Date of discharge: 12/06/20 <Olya Beckwith NP - Last Filed: 12/06/20 10:58> Primary care physician: Unknown Physician <Olya Beckwith NP - Last Filed: 12/06/20 10:58> Admitting clinician: Olya Beckwith <Olya Beckwith NP - Last Filed: 12/06/20 10:58> Attending physician on admission: Raza Leyva <Olya Beckwith NP - Last Filed: 12/06/20 10:58> Consults: 11/30/20 07:34 Consult to Gastroenterology Routine Consulting Provider: Hugo Mendez Reason for consultation: abd pain, ct ? colitis, diarrhea 12/02/20 09:29 Consult to General Surgery Routine Consulting Provider: Maria G Gomez Reason for consultation: abdominal pain, ?ischemic colitis Has provider been notified: No <Olya Beckwith NP - Last Filed: 12/06/20 10:58> Attending physician on discharge: Raza Leyva <Olya Beckwith NP - Last Filed: 12/06/20 10:58> Discharging clinician: Olya Beckwith <Olya Beckwith NP - Last Filed: 12/06/20 10:58> DS: Diagnosis Discharge Diagnosis (1) Colitis: Status: Acute <Olya Beckwith NP - Last Filed: 12/06/20 10:58> (2) Ileus: Status: Acute <Olya Beckwith NP - Last Filed: 12/06/20 10:58> (3) CAP (community acquired pneumonia): Status: Acute <Olya Beckwith NP - Last Filed: 12/06/20 10:58> (4) Constipation: Status: Acute <Olya Beckwith NP - Last Filed: 12/06/20 10:58> (5) Hyponatremia: Status: Acute <Olya Beckwith NP - Last Filed: 12/06/20 10:58> (6) Hyperkalemia: Status: Acute <Olya Beckwith NP - Last Filed: 12/06/20 10:58> DS: Medications Discharge Medications Home Medications: Home Medications Medication Instructions Recorded Confirmed Flovent HFA 2 puff INHALATION BID 06/26/20 11/29/20 albuterol sulfate 2.5 mg INHALATION TID 06/26/20 11/29/20 albuterol sulfate [ProAir HFA] 2 puff INHALATION Q4-6H PRN 06/26/20 11/29/20 bisacodyl 5 mg PO BEDTIME 06/26/20 11/29/20 clonazepam 0.5 mg PO DAILY 06/26/20 11/29/20 clonazepam 1 mg PO BEDTIME 06/26/20 11/29/20 clozapine 50 mg PO DAILY 06/26/20 11/29/20 clozapine 300 mg PO BEDTIME 06/26/20 11/29/20 divalproex 1,500 mg PO BEDTIME 06/26/20 11/29/20 docusate sodium 100 mg PO BID 06/26/20 11/29/20 fluoxetine 20 mg PO QAM 06/26/20 11/29/20 lactulose [Generlac] 10 g PO DAILY PRN 06/26/20 11/29/20 lisinopril 10 mg PO QAM 06/26/20 11/29/20 montelukast 10 mg PO BEDTIME 06/26/20 11/29/20 nicotine 1 patch TRANSDERMAL DAILY 06/26/20 11/29/20 omeprazole 20 mg PO DAILY@0630 06/26/20 11/29/20 polyethylene glycol 3350 17 g PO DAILY PRN 06/26/20 11/29/20 tramadol 1 tab PO Q6H 11/12/20 11/29/20 Previous Rx's Medication Instructions Recorded levofloxacin 500 mg PO DAILY #3 tab 12/06/20 metronidazole [Flagyl] 500 mg PO Q8H #9 tab 12/06/20 <Olya Beckwith NP - Last Filed: 12/06/20 10:58> DS: Summary Hospital Course Hospital Course: HP as per admitting provider 55-year-old woman who was admitted to for psychiatric care, developed hypotension and abdominal pain. The hospitalists were consulted and it was determined that the patient should be transferred for further medical evaluation. The patient reported some diffuse mid abdominal pain with some dizziness and diarrhea. She had no loss of consciousness, chest pain, shortness of breath, nausea, or vomiting. She reported her symptoms started today. She was noted to have a blood pressure as low as 65/53 this morning. Her white blood cell count was elevated at 14.3, platelet count a 150. Sodium 129, potassium 5.8, bicarb 16, anion gap 24, BUN 40, creatinine 1.19, lactic acid 5.6. Urinalysis is pending. The patient was given 1 L of IV fluid bolus, blood pressure did improve. She will be admitted for further management and treatment of acute hypotension and abdominal pain . Colitis. Patient transferred from with hypotension and abdominal pain. Patient was IV fluid resuscitated, abdominal CT showed colitis and started on Levaquin and Flagyl. Patient was seen and examined by Gastroenterology With recommendation to continue antibiotics. She can be seen as an outpatient for follow-up, she may at some point need a colonoscopy. She will continue 3 more days of Levaquin and Flagyl for total of 10 day treatment. Community-acquired pneumonia . Oxygen saturation noted to be low during her hospitalization, chest x-ray was obtained and showed left basilar airspace opacity. Her oxygen saturations have been stable at this point and she is no longer requiring oxygen. She will be sent home with 3 more days of Levaquin. Constipation. Chronic. Developed an ileus during the hospital course. Switch from lactulose to MiraLax, Senokot added. Patient has had bowel movements daily and passing flatus. Abdominal pain much improved. No nausea or vomiting noted. Continue bowel regimen at home. Attending: Dr. Leyva <Olya Beckwith NP - Last Filed: 12/06/20 10:58> Time Spent with Patient Time attestation: Total time spent providing and/or coordinating discharge services: <Olya Beckwith NP - Last Filed: 12/06/20 10:58> Discharge coordination time: Greater than 30 minutes <Olya Beckwith NP - Last Filed: 12/06/20 10:58> Physical Exam Vital Signs: Vital Signs: Last Vital Signs Temp 97.9 F 12/06/20 08:00 Pulse 91 12/06/20 08:00 Resp 20 12/06/20 08:00 BP 142/77 H 12/06/20 08:00 Pulse Ox 91 L 12/06/20 08:00 Body Mass Index 35.5 <Olya Beckwith NP - Last Filed: 12/06/20 10:58> Appearing in no acute distress head is normocephalic atraumatic eyes pupils are PERRLA sclera is anicteric mouth throat mucous membranes are intact and moist neck is supple no lymphadenopathy, no JVD noted lung sounds are clear to auscultation heart regular rate rhythm, clear S1, S2 positive bowel sounds, abdomen is soft, nontender neuro patient is alert x3, no focal deficits <Olya Beckwith NP - Last Filed: 12/06/20 10:58> DS: Data Data Completed and Pending Labs on day of discharge: Laboratory Results - last 24 hr 12/05/20 12/05/20 12/05/20 16:25 16:25 16:25 POC Glucose Lactic Acid 0.8 Total Bilirubin 0.4 Direct Bilirubin < 0.2 AST 25 ALT 30 Alkaline Phosphatase 73 Total Creatine Kinase 29 D Total Protein 5.5 L Albumin 3.3 L Lipase 12 12/06/20 04:23 POC Glucose 94 Lactic Acid Total Bilirubin Direct Bilirubin AST ALT Alkaline Phosphatase Total Creatine Kinase Total Protein Albumin Lipase Preliminary micro results at discharge 12/02/20 09:25 Blood Culture - Preliminary Blood - Venous No growth after 48 hours. 12/02/20 09:34 Blood Culture - Preliminary Blood - Venous No growth after 48 hours. <Olya Beckwith NP - Last Filed: 12/06/20 10:58> Discharge Plan Discharge Anticipated Discharge Date/Time: 12/06/20 10:33 <Olya Beckwith NP - Last Filed: 12/06/20 10:58> Patient Disposition: Home, Self-Care <Olya Beckwith NP - Last Filed: 12/06/20 10:58> Discharge Diagnosis: colitis ileus <Olya Beckwith NP - Last Filed: 12/06/20 10:58> colitis ileus <Raza Leyva MD - Last Filed: 12/06/20 15:41> Referrals: Physician,Unknown [Primary Care Provider] - 1 Week <Olya Beckwith NP - Last Filed: 12/06/20 10:58> Discharge Medications: New levofloxacin 500 mg tablet 500 mg PO DAILY Qty: 3 RF: 0 metronidazole [Flagyl] 500 mg tablet 500 mg PO Q8H Qty: 9 RF: 0 Continued tramadol 50 mg tablet 1 tab PO Q6H RF: 0 polyethylene glycol 3350 17 gram Powder In Packet 17 g PO DAILY PRN (Reason: Constipation) RF: 0 clozapine 100 mg Tablet 300 mg PO BEDTIME RF: 0 montelukast 10 mg Tablet 10 mg PO BEDTIME RF: 0 clozapine 25 mg Tablet 50 mg PO DAILY RF: 0 omeprazole 20 mg Tablet,Delayed Release (Dr/Ec) 20 mg PO DAILY@0630 RF: 0 albuterol sulfate 2.5 mg /3 mL (0.083 %) Solution For Nebulization 2.5 mg INHALATION TID RF: 0 albuterol sulfate [ProAir HFA] 90 mcg/actuation Hfa Aerosol Inhaler 2 puff INHALATION Q4-6H PRN (Reason: Shortness Of Breath) RF: 0 clonazepam 0.5 mg Tablet 0.5 mg PO DAILY RF: 0 clonazepam 1 mg Tablet 1 mg PO BEDTIME RF: 0 lisinopril 10 mg Tablet 10 mg PO QAM RF: 0 docusate sodium 100 mg Capsule 100 mg PO BID RF: 0 fluoxetine 20 mg Capsule 20 mg PO QAM RF: 0 Flovent HFA 110 mcg/actuation Hfa Aerosol Inhaler 2 puff INHALATION BID RF: 0 bisacodyl 5 mg Tablet 5 mg PO BEDTIME RF: 0 lactulose [Generlac] 10 gram/15 mL Solution 10 g PO DAILY PRN (Reason: Constipation) RF: 0 divalproex 500 mg Tablet Extended Release 24 Hr 1,500 mg PO BEDTIME RF: 0 nicotine 21 mg/24 hr Patch 24 Hour 1 patch TRANSDERMAL DAILY RF: 0 <Olya Beckwith NP - Last Filed: 12/06/20 10:58> Discharge Orders: Discharge Order (Routine); Ordered 12/06/20 Ordered By: Olya Beckwith <Olya Beckwith NP - Last Filed: 12/06/20 10:58> Diet: advance to usual diet <Olya Beckwith NP - Last Filed: 12/06/20 10:58> advance to usual diet <Raza Leyva MD - Last Filed: 12/06/20 15:41> Activity on Discharge: As tolerated <Olya Beckwith NP - Last Filed: 12/06/20 10:58> As tolerated <Raza Leyva MD - Last Filed: 12/06/20 15:41> Stand Alone Forms: Patient Portal Discharge page <Olya Beckwith NP - Last Filed: 12/06/20 10:58> Care Plan Goals: Resolution of colitis symptoms Follow a low residue diet and low fiber <Olya Beckwith NP - Last Filed: 12/06/20 10:58> Health Concerns: colitis ileus constipation <Olya Beckwith NP - Last Filed: 12/06/20 10:58> Plan of Treatment: Follow up with primary care provider as needed. Follow up with Dr. Mendez at [facility] Gastroenterology for follow up appointment [phone] <Olya Beckwith NP - Last Filed: 12/06/20 10:58> Assessment: See Discharge summary <Olya Beckwith NP - Last Filed: 12/06/20 10:58> Discharge Date/Time: 12/06/20 13:30 <Olya Beckwith NP - Last Filed: 12/06/20 10:58>
[2020-12-06 12:00] VITALS: BP 149/83; PULSE 91; RESP 15; TEMP 36.2; O2SAT 93
== END 2020-12-06 13:30 | disposition home or self-care (01) | DRG 246 ==
PROVIDERS: Hospitalist; Nurse Practitioner Acute Care; Physician Assistant Medical; Admitting Provider Family Medicine; PCP Internal Medicine; Visit Provider Family Medicine
DX: K55.9 Vascular disorder of intestine, unspecified (principal); J18.9 Pneumonia, unspecified organism; E87.2 Acidosis; I95.9 Hypotension, unspecified; E87.1 Hypo-osmolality and hyponatremia; E87.5 Hyperkalemia; E86.0 Dehydration; K59.09 Other constipation; F20.9 Schizophrenia, unspecified; D64.9 Anemia, unspecified; F17.210 Nicotine dependence, cigarettes, uncomplicated; Z71.6 Tobacco abuse counseling; Z88.0 Allergy status to penicillin; Z79.891 Long term (current) use of opiate analgesic; Z79.899 Other long term (current) drug therapy
CPT/HCPCS: 36415; 71045; 74176; 74177; 80048; 80076; 81003; 82550; 82947; 83605; 83690; 85007; 85014; 85018; 85025; 85027; 85060; 87040; 94640; J1650; J1956; J2270; Q9967

== ENCOUNTER 2020-12-20 10:44 | Outpatient (REF) | payer MEDICAID, SELFPAY ==
[2020-12-20 11:32] LABS: MANUAL DIFF FLAG NO
[2020-12-20 11:42] LABS: Basophils Percent Auto 0.3 % (0-2); Eosinophils Absolute Auto 0.1 X10*3/uL (0.0-0.4); Eosinophils Percent Auto 0.8 % (0-4); Hematocrit 36.2 % (37-47); Imm Gran Abs Auto 0.03 X10*3/uL (0.00-0.03); Imm Gran Pct Auto 0.4 % (0.0-0.4); Lymphocytes Absolute Auto 2.5 X10*3/uL (1.2-4.9); Lymphocytes Percent Auto 33.4 % (20-40); Mean Corpuscular HGB Conc 30.4 g/dl (31.0-35.0); Mean Corpuscular Hemoglobin 29.2 pg (27.0-33.0); Mean Platelet Volume 11.1 fL (9.4-12.3); Monocytes Absolute Auto 0.7 X10*3/uL (0.1-1.2); Monocytes Percent Auto 9.2 % (2-11); Neut%MD 55.9 %; Neutrophils Absolute Auto 4.2 X10*3/uL (2.0-8.3); Neutrophils Percent Auto 55.9 % (45-73); Platelet Count 326 X10*3/uL (160-400); Red Blood Count 3.77 X10*6/uL (4.20-5.50); Red Cell Distribution Width 14.8 % (11.0-16.0); WBCANC 7.5 X10*3/uL; White Blood Count 7.5 X10*3/uL (4.8-10.8)
== END 2020-12-20 10:45 | disposition home or self-care (01) ==
LOC: HO.LABR 10:44
PROVIDERS: PCP Internal Medicine; Visit Provider Clinical Nurse Specialist Psychiatric/Mental Health, Adult
DX: R10.9 Unspecified abdominal pain (principal); Z79.899 Other long term (current) drug therapy
CPT/HCPCS: 36415; 85025; 85048

== ENCOUNTER 2021-01-01 10:39 | Emergency (ER) | payer MEDICAID, SELFPAY ==
--- NOTE | ~2021-01-01 | CT_ITS ---
EXAMINATION: CT ABDOMEN AND PELVIS WITHOUT CONTRAST CLINICAL INFORMATION: Constipation and abdominal pain for 6 days COMPARISON: CT abdomen pelvis 12/02/2020 TECHNIQUE: Multidetector volumetric imaging was performed from the superior aspect of the liver through the pubic symphysis. Sagittal and coronal reformatted images were obtained on the technologist's workstation. This CT examination was performed using dose optimization techniques as appropriate, variously including the following: *Automated exposure control *Adjustment of mA and/or kV according to patient size (this includes techniques or standardized protocols for targeted exams where dose is matched to indication/reason for exam; i.e. extremities or head) *Use of iterative reconstruction technique DLP: 770 mGy-cm FINDINGS: LUNG BASES: The visualized lung bases are unremarkable. LIVER, GALLBLADDER, AND BILIARY TREE: The liver is enlarged and demonstrates decreased attenuation consistent with hepatic steatosis. There is areas of focal fatty sparing around no focal mass or bile duct dilatation is seen. The gallbladder is unremarkable with no evidence of radiopaque gallstones, gallbladder wall thickening, or obvious pericholecystic inflammatory changes. PANCREAS: Unremarkable. SPLEEN: Unremarkable. ADRENAL GLANDS: Unremarkable. KIDNEYS AND URETERS: The kidneys are normal in size, shape, and attenuation. No hydronephrosis, hydroureter, or calculi seen. No perinephric stranding. BLADDER: Unremarkable. GASTROINTESTINAL TRACT: A large amount of gas and stool is present throughout the colon, more so than previously seen. The previously seen inflammatory changes around the colon in the lateral conal fascia have resolved and are no longer present. Previously seen bowel wall thickening and pericolonic inflammatory changes have resolved. ABDOMINAL WALL: No significant hernia is appreciated. A small periumbilical hernia seen containing only fat. LYMPH NODES: No retroperitoneal lymphadenopathy. Small 1 cm left para-aortic lymph node is unchanged VASCULAR: Unremarkable. PELVIC VISCERA: An anteverted uterus is present. An abnormal adnexal mass is not seen. No free intraperitoneal fluid is present. OSSEOUS STRUCTURES: No bony destructive lesions seen CT/CT abdomen pelvis wo con IMPRESSION: 1. Previously seen inflammatory changes in the left colon have resolved. A large amount of stool is present throughout the colon, more so than previously noted without obstruction. 2. Incidental note made of enlarged fatty liver and other findings as described above.
[2021-01-01 10:43] VITALS: BP 138/72; PULSE 95; RESP 18; TEMP 37.1; O2SAT 96; BMI 43.0
--- NOTE | 2021-01-01 11:12 | ED.ABDPAIN ---
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 She states she has tried several things [id number] to make her constipation go away but nothing has worked. She denies any opioid use. Patient denies fevers, chest pain, shortness of breath, leg swelling or back pain. She states she had an abdominal infection and was hospitalized for it recently and it feels like the same kind of pain. Hospital Records indicates she had colitis on November and was hospitalized for 1 week. Related Data Home Medications Medication Instructions Recorded Confirmed Flovent HFA 2 puff INHALATION BID 06/26/20 11/29/20 albuterol sulfate 2.5 mg INHALATION TID 06/26/20 11/29/20 albuterol sulfate [ProAir HFA] 2 puff INHALATION Q4-6H PRN 06/26/20 11/29/20 bisacodyl 5 mg PO BEDTIME 06/26/20 11/29/20 clonazepam 0.5 mg PO DAILY 06/26/20 11/29/20 clonazepam 1 mg PO BEDTIME 06/26/20 11/29/20 clozapine 50 mg PO DAILY 06/26/20 11/29/20 clozapine 300 mg PO BEDTIME 06/26/20 11/29/20 divalproex 1,500 mg PO BEDTIME 06/26/20 11/29/20 docusate sodium 100 mg PO BID 06/26/20 11/29/20 fluoxetine 20 mg PO QAM 06/26/20 11/29/20 lactulose [Generlac] 10 g PO DAILY PRN 06/26/20 11/29/20 lisinopril 10 mg PO QAM 06/26/20 11/29/20 montelukast 10 mg PO BEDTIME 06/26/20 11/29/20 nicotine 1 patch TRANSDERMAL DAILY 06/26/20 11/29/20 omeprazole 20 mg PO DAILY@0630 06/26/20 11/29/20 polyethylene glycol 3350 17 g PO DAILY PRN 06/26/20 11/29/20 tramadol 1 tab PO Q6H 11/12/20 11/29/20 Previous Rx's Medication Instructions Recorded levofloxacin 500 mg PO DAILY #3 tab 12/06/20 metronidazole [Flagyl] 500 mg PO Q8H #9 tab 12/06/20 bisacodyl [Fleet Bisacodyl] 10 mg [place] DAILY PRN #888 ml 01/01/21 polyethylene glycol 3350 [Miralax] 17 g PO BID #238 g 01/01/21 polyethylene glycol 3350 [Miralax] 17 g PO BID PRN #238 g 01/01/21 Allergies Allergy/AdvReac Type Severity Reaction Status Date / Time aspirin [Aspirin] Allergy Unknown VOMIT Verified 12/02/20 13:40 diazepam [From Valium] Allergy Unknown UNKNOWN Verified 12/02/20 13:40 haloperidol [From Haldol] Allergy Unknown UNKN Verified 12/02/20 13:40 penicillin V Allergy Unknown Unknown Verified 12/02/20 13:40 Penicillins Allergy Unknown UNKN Verified 12/02/20 13:40 risperidone [From Risperdal] Allergy Unknown UNKNOWN Verified 12/02/20 13:40 trazodone [TRAZODONE] Allergy Unknown NAUSEA & Verified 12/02/20 13:40 VOMITING From Haldol Allergy Unknown UNKN Uncoded 12/02/20 13:40 Review of Systems Review of Systems Yes all other systems are reviewed and are negative Physical Exam Vital Signs: Vital Signs: Last Vital Signs Temp 98.7 F 01/01/21 10:43 Pulse 95 01/01/21 10:43 Resp 18 01/01/21 10:43 BP 138/72 01/01/21 10:43 Pulse Ox 96 01/01/21 10:43 Body Mass Index 43.0 Const: General: cooperative, healthy appearing and comfortable Nutritional Appearance: obese Orientation/consciousness: patient oriented x3 Limitations: language barrier (Vincentian-speaking with limited Mexican) HENMT: Head: Yes normal to inspection General nose exam: Normal external nose present Face and sinus: Yes normal facial exam Eyes: Alignment and Position: alignment normal Periorbital: periorbital findings normal Eyelids: Yes eyelids normal Sclerae: scleral abnormal bilateral (icterus) Pupils: Equal, round and reactive pupils present EOM: EOMs intact bilaterally Resp: Effort & Inspection: normal respiratory effort and able to speak in complete sentences Auscultation: clear to auscultation bilaterally Cardio: Rate: regular rate Rhythm: regular rhythm Heart sounds: normal S1 and S2 GI: Inspection: Yes obesity Palpation (GI): Soft to palpation, Tenderness to palpation present (GI) and Guarding due to palpation present (GI) Auscultation: Hypoactive bowel sounds present Skin: General skin exam: no rashes or lesions noted Neuro: General: patient oriented x3 Cranial nerves: Yes Equal, round and reactive pupils present Extrem: General: Yes normal to inspection and Yes no pedal edema Psych: Appearance: grossly normal Course Course Course Narrative: Patient is a 55-year-old Vincentian-speaking female past medical history of schizophrenia, GERD, PTSD, HTN, asthma, obesity who comes in today for 6 days of constipation.VSS. Physical exam reveals tender abdomen, diffuse. With guarding. Will get labs, screen for opiates, abdominal CT scan then reassess. Reevaluation(s) Reevaluation #1: Patient white blood cell count 7.6, chemistry and liver panel WNL, troponin negative, lipase WNL, UA and Utox pending, abd CT pending Time: 12:45 [facility] - Abdominal Pain Medical Records Attestation: I reviewed the patient's medical records. Lab Data Attestation: I reviewed the patient's lab results. Result diagrams: 01/01/21 11:49 01/01/21 11:49 Labs: Lab Results 01/01/21 01/01/21 01/01/21 Range/Units 11:49 11:49 11:49 WBC 7.6 (4.8-10.8) X10*3/uL RBC 3.85 L (4.20-5.50) X10*6/uL Hgb 11.4 L (12.0-16.0) g/dl Hct 36.3 L (37-47) % MCV 94.3 (80-98) fL MCH 29.6 (27.0-33.0) pg MCHC 31.4 (31.0-35.0) g/dl RDW 14.6 (11.0-16.0) % Plt Count 253 (160-400) X10*3/uL MPV 11.3 (9.4-12.3) fL Immature Gran % (Auto) 0.5 H (0.0-0.4) % Neut % (Auto) 54.2 (45-73) % Lymph % (Auto) 33.6 (20-40) % Tyrrell % (Auto) 9.7 (2-11) % Eos % (Auto) 1.7 (0-4) % Baso % (Auto) 0.3 (0-2) % Lymph # (Auto) 2.5 (1.2-4.9) X10*3/uL Tyrrell # (Auto) 0.7 (0.1-1.2) X10*3/uL Eos # (Auto) 0.1 (0.0-0.4) X10*3/uL Baso # (Auto) 0.0 (0.0-0.2) X10*3/uL Abs Immat Gran (auto) 0.04 H (0.00-0.03) X10*3/uL Absolute Neuts (auto) 4.1 (2.0-8.3) X10*3/uL Absolute Nucleated RBC 0.000 (0.0-0.012) X10*3/uL Nucleated RBC % (auto) 0.0 (0.0-0.2) /100WBC PT (10.8-13.0) SEC INR (0.9-1.1) APTT (24.1-38.0) SEC Hold Blue Top SEE NOTE Sodium 139 (135-145) mmol/L Potassium 4.2 (3.3-5.1) mmol/L Chloride 98 (96-108) mmol/L Carbon Dioxide 33 H (22-29) mmol/L Anion Gap 12 (12-20) BUN 13 D (9-16) mg/dL Creatinine 0.59 (0.5-1.4) mg/dL Estim Creat Clear Calc 123.6 Estimated GFR > 60 Random Glucose 110 (60-115) mg/dL Calcium 9.5 D (8.4-10.2) mg/dL Total Bilirubin 0.3 (0.0-1.0) mg/dL Direct Bilirubin < 0.2 (0.0-0.5) mg/dL AST 11 D (5-31) U/L ALT 17 (0-31) U/L Alkaline Phosphatase 69 (39-117) U/L Ammonia (13-55) umol/L Troponin I High Sens (<3.5-17.0) ng/L Total Protein 6.8 D (6.5-8.0) g/dL Albumin 4.1 D (3.5-5.0) g/dL Lipase 14 (8-78) U/L 01/01/21 01/01/21 01/01/21 Range/Units 11:49 11:49 11:49 WBC (4.8-10.8) X10*3/uL RBC (4.20-5.50) X10*6/uL Hgb (12.0-16.0) g/dl Hct (37-47) % MCV (80-98) fL MCH (27.0-33.0) pg MCHC (31.0-35.0) g/dl RDW (11.0-16.0) % Plt Count (160-400) X10*3/uL MPV (9.4-12.3) fL Immature Gran % (Auto) (0.0-0.4) % Neut % (Auto) (45-73) % Lymph % (Auto) (20-40) % Tyrrell % (Auto) (2-11) % Eos % (Auto) (0-4) % Baso % (Auto) (0-2) % Lymph # (Auto) (1.2-4.9) X10*3/uL Tyrrell # (Auto) (0.1-1.2) X10*3/uL Eos # (Auto) (0.0-0.4) X10*3/uL Baso # (Auto) (0.0-0.2) X10*3/uL Abs Immat Gran (auto) (0.00-0.03) X10*3/uL Absolute Neuts (auto) (2.0-8.3) X10*3/uL Absolute Nucleated RBC (0.0-0.012) X10*3/uL Nucleated RBC % (auto) (0.0-0.2) /100WBC PT 11.8 (10.8-13.0) SEC INR 1.0 (0.9-1.1) APTT 56.9 H (24.1-38.0) SEC Hold Blue Top Sodium (135-145) mmol/L Potassium (3.3-5.1) mmol/L Chloride (96-108) mmol/L Carbon Dioxide (22-29) mmol/L Anion Gap (12-20) BUN (9-16) mg/dL Creatinine (0.5-1.4) mg/dL Estim Creat Clear Calc Estimated GFR Random Glucose (60-115) mg/dL Calcium (8.4-10.2) mg/dL Total Bilirubin (0.0-1.0) mg/dL Direct Bilirubin (0.0-0.5) mg/dL AST (5-31) U/L ALT (0-31) U/L Alkaline Phosphatase (39-117) U/L Ammonia 49 (13-55) umol/L Troponin I High Sens < 3.5 (<3.5-17.0) ng/L Total Protein (6.5-8.0) g/dL Albumin (3.5-5.0) g/dL Lipase (8-78) U/L Imaging Data CT scan - abdomen: Attestation: I personally reviewed and interpreted this imaging study as follows: My impression: constipation, fatty liver Radiologist's impression: [address] [id number] Scan ReportSigned Patient: Brnena Hope [facility]#: [id number]: 1965Acct:[id number]/Sex: 55 / FADM Date: 01/01/21Loc: [address] Dr: Ordering Physician: Janet Ulloa PA-C Date of Service: 01/01/21 Procedure(s): CT abdomen pelvis [facility] Accession Number(s): [id number] cc: Janet Ulloa PA-C~ EXAMINATION: CT ABDOMEN AND PELVIS WITHOUT CONTRAST CLINICAL INFORMATION: Constipation and abdominal pain for 6 days COMPARISON: CT abdomen pelvis 12/02/2020 TECHNIQUE: Multidetector volumetric imaging was performed from the superior aspect of the liver through the pubic symphysis. Sagittal and coronal reformatted images were obtained on the technologist's workstation. This CT examination was performed using dose optimization techniques as appropriate, variously including the following: *Automated exposure control *Adjustment of mA and/or kV according to patient size (this includes techniques or standardized protocols for targeted exams where dose is matched to indication/reason for exam; i.e. extremities or head) *Use of iterative reconstruction technique DLP: 770 mGy-cm FINDINGS: LUNG BASES: The visualized lung bases are unremarkable. LIVER, GALLBLADDER, AND BILIARY TREE: The liver is enlarged and demonstrates decreased attenuation consistent with hepatic steatosis. There is areas of focal fatty sparing around no focal mass or bile duct dilatation is seen. The gallbladder is unremarkable with no evidence of radiopaque gallstones, gallbladder wall thickening, or obvious pericholecystic inflammatory changes. PANCREAS: Unremarkable. SPLEEN: Unremarkable. ADRENAL GLANDS: Unremarkable. KIDNEYS AND URETERS: The kidneys are normal in size, shape, and attenuation. No hydronephrosis, hydroureter, or calculi seen. No perinephric stranding. BLADDER: Unremarkable. GASTROINTESTINAL TRACT: A large amount of gas and stool is present throughout the colon, more so than previously seen. The previously seen inflammatory changes around the colon in the lateral conal fascia have resolved and are no longer present. Previously seen bowel wall thickening and pericolonic inflammatory changes have resolved. ABDOMINAL WALL: No significant hernia is appreciated. A small periumbilical hernia seen containing only fat. LYMPH NODES: No retroperitoneal lymphadenopathy. Small 1 cm left para-aortic lymph node is unchanged VASCULAR: Unremarkable. PELVIC VISCERA: An anteverted uterus is present. An abnormal adnexal mass is not seen. No free intraperitoneal fluid is present. OSSEOUS STRUCTURES: No bony destructive lesions seen CT/CT abdomen pelvis wo con IMPRESSION: 1. Previously seen inflammatory changes in the left colon have resolved. A large amount of stool is present throughout the colon, more so than previously noted without obstruction. 2. Incidental note made of enlarged fatty liver and other findings as described above. Dictated By:DARREN ANTON MDSigned By:<Electronically signed by DARREN ANTON MD in OV>01/01/21 1330 DD/ 1125TD/TT: [employer] Operator: CRISTY Discharge Plan Discharge Clinical Impression: Constipation Qualifiers: Constipation type: unspecified constipation type Qualified Code(s): K59.00 - Constipation, unspecified Patient Disposition: Home, Self-Care Instructions: Constipation (ED), High Fiber Diet (ED), Fleet Enema (ED) Additional Instructions: I have sent a prescription for your constipation to the pharmacy, please take the MiraLax as well as a Fleet enema as needed. Please increase your intake of water and fiber. If you develop a fever or have bloody or black stools, please return to the emergency department. Prescriptions: New polyethylene glycol 3350 [Miralax] 17 gram/dose powder 17 g PO BID Qty: 238 RF: 0 polyethylene glycol 3350 [Miralax] 17 gram/dose powder 17 g PO BID PRN (Reason: constipation) Qty: 238 RF: 0 Fleet Bisacodyl 10 mg/30 mL enema 10 mg [place] DAILY PRN (Reason: constipation) Qty: 888 RF: 0 No Action tramadol 50 mg tablet 1 tab PO Q6H RF: 0 polyethylene glycol 3350 17 gram Powder In Packet 17 g PO DAILY PRN (Reason: Constipation) RF: 0 clozapine 100 mg Tablet 300 mg PO BEDTIME RF: 0 montelukast 10 mg Tablet 10 mg PO BEDTIME RF: 0 clozapine 25 mg Tablet 50 mg PO DAILY RF: 0 omeprazole 20 mg Tablet,Delayed Release (Dr/Ec) 20 mg PO DAILY@0630 RF: 0 albuterol sulfate 2.5 mg /3 mL (0.083 %) Solution For Nebulization 2.5 mg INHALATION TID RF: 0 albuterol sulfate [ProAir HFA] 90 mcg/actuation Hfa Aerosol Inhaler 2 puff INHALATION Q4-6H PRN (Reason: Shortness Of Breath) RF: 0 clonazepam 0.5 mg Tablet 0.5 mg PO DAILY RF: 0 clonazepam 1 mg Tablet 1 mg PO BEDTIME RF: 0 lisinopril 10 mg Tablet 10 mg PO QAM RF: 0 docusate sodium 100 mg Capsule 100 mg PO BID RF: 0 fluoxetine 20 mg Capsule 20 mg PO QAM RF: 0 Flovent HFA 110 mcg/actuation Hfa Aerosol Inhaler 2 puff INHALATION BID RF: 0 bisacodyl 5 mg Tablet 5 mg PO BEDTIME RF: 0 lactulose [Generlac] 10 gram/15 mL Solution 10 g PO DAILY PRN (Reason: Constipation) RF: 0 divalproex 500 mg Tablet Extended Release 24 Hr 1,500 mg PO BEDTIME RF: 0 nicotine 21 mg/24 hr Patch 24 Hour 1 patch TRANSDERMAL DAILY RF: 0 levofloxacin 500 mg tablet 500 mg PO DAILY Qty: 3 RF: 0 metronidazole [Flagyl] 500 mg tablet 500 mg PO Q8H Qty: 9 RF: 0 Referrals: Brenna Liriano MD [Primary Care Provider] - 2 days (constipation) Print Language: Vincentian [facility] Past Medical History Medical History Asthma Morbid obesity due to excess calories Schizophrenia Surgical History H/O right knee surgery History of appendectomy History of tubal ligation Family History Family History Father Throat cancer Mother CVA (cerebral vascular accident) Brother Drug overdose Sister No problems noted. Sister No problems noted. Son No problems noted. Son No problems noted. 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
[2021-01-01 11:54] LABS: MANUAL DIFF FLAG NO
[2021-01-01 11:56] LABS: Basophils Percent Auto 0.3 % (0-2); Eosinophils Absolute Auto 0.1 X10*3/uL (0.0-0.4); Eosinophils Percent Auto 1.7 % (0-4); Hematocrit 36.3 % (37-47); Hemoglobin 11.4 g/dl (12.0-16.0); Imm Gran Abs Auto 0.04 X10*3/uL (0.00-0.03); Imm Gran Pct Auto 0.5 % (0.0-0.4); Lymphocytes Absolute Auto 2.5 X10*3/uL (1.2-4.9); Lymphocytes Percent Auto 33.6 % (20-40); Mean Corpuscular HGB Conc 31.4 g/dl (31.0-35.0); Mean Corpuscular Hemoglobin 29.6 pg (27.0-33.0); Mean Corpuscular Volume 94.3 fL (80-98); Mean Platelet Volume 11.3 fL (9.4-12.3); Monocytes Absolute Auto 0.7 X10*3/uL (0.1-1.2); Monocytes Percent Auto 9.7 % (2-11); Neutrophils Absolute Auto 4.1 X10*3/uL (2.0-8.3); Neutrophils Percent Auto 54.2 % (45-73); Platelet Count 253 X10*3/uL (160-400); Red Blood Count 3.85 X10*6/uL (4.20-5.50); Red Cell Distribution Width 14.6 % (11.0-16.0); White Blood Count 7.6 X10*3/uL (4.8-10.8)
[2021-01-01 12:03] LABS: Prothrombin Time 11.8 SEC (10.8-13.0)
[2021-01-01 12:12] LABS: Ammonia 49 umol/L (13-55)
[2021-01-01 12:18] LABS: Partial Thromboplastin Time 56.9 SEC (24.1-38.0)
[2021-01-01 12:22] LABS: Alanine Aminotransferase 17 U/L (0-31); Albumin Level 4.1 g/dL (3.5-5.0); Alkaline Phosphatase 69 U/L (39-117); Anion Gap 12 (12-20); Aspartate Amino Transferase 11 U/L (5-31); Bilirubin Direct < 0.2 mg/dL (0.0-0.5); Bilirubin Total 0.3 mg/dL (0.0-1.0); Blood Urea Nitrogen 13 mg/dL (9-16); Calcium 9.5 mg/dL (8.4-10.2); Carbon Dioxide 33 mmol/L (22-29); Chloride 98 mmol/L (96-108); Creatinine Clr Calc Pharmacy 123.6; Estimated Glomerular Filt Rate > 60; Glucose Random 110 mg/dL (60-115); Lipase 14 U/L (8-78); Potassium 4.2 mmol/L (3.3-5.1); Sodium 139 mmol/L (135-145); Total Protein 6.8 g/dL (6.5-8.0)
[2021-01-01 12:27] LABS: Troponin-I High Sensitivity < 3.5 ng/L (<3.5-17.0)
== END 2021-01-01 14:13 | disposition home or self-care (01) ==
PROVIDERS: Physician Assistant; Emergency Provider Emergency Medicine Emergency Medical Services; PCP Internal Medicine
DX: R10.9 Unspecified abdominal pain (principal); K59.00 Constipation, unspecified; I10 Essential (primary) hypertension; E78.5 Hyperlipidemia, unspecified; F20.9 Schizophrenia, unspecified; J44.9 Chronic obstructive pulmonary disease, unspecified; F17.210 Nicotine dependence, cigarettes, uncomplicated; Z87.01 Personal history of pneumonia (recurrent)
CPT/HCPCS: 36415; 74176; 80048; 80076; 82140; 83690; 84484; 85025; 85610; 85730; 99283; 99284

== ENCOUNTER 2021-01-05 23:43 | Emergency (ER) | payer MEDICAID, SELFPAY ==
--- NOTE | ~2021-01-05 | CT_ITS ---
EXAMINATION: CT ABDOMEN AND PELVIS WITH CONTRAST CLINICAL INFORMATION: Diffuse abdominal pain with nausea COMPARISON: 01/01/2021 TECHNIQUE: Multidetector volumetric images were obtained from the superior aspect of the liver through the pubic symphysis following administration 85 mL of Omnipaque 350 intravenous contrast. Sagittal and coronal reformatted images were obtained on the technologist's workstation. Oral contrast: No This CT examination was performed using dose optimization techniques as appropriate, variously including the following: *Automated exposure control *Adjustment of mA and/or kV according to patient size (this includes techniques or standardized protocols for targeted exams where dose is matched to indication/reason for exam; i.e. extremities or head) *Use of iterative reconstruction technique DLP: 761 mGy-cm FINDINGS: LUNG BASES: The visualized lung bases demonstrate mild atelectasis. Trace pericardial effusion. LIVER, GALLBLADDER, AND BILIARY TREE: The liver is prominent in size. No focal hepatic lesion or biliary ductal dilatation is present. The gallbladder is unremarkable with no evidence of radiopaque gallstones, gallbladder wall thickening, or obvious pericholecystic inflammatory changes. PANCREAS: Unremarkable. SPLEEN: Unremarkable. ADRENAL GLANDS: Unremarkable. KIDNEYS AND URETERS: The kidneys are normal in size, shape, and attenuation. No hydronephrosis, hydroureter, or obstructing calculi seen. No perinephric stranding. BLADDER: Unremarkable. GASTROINTESTINAL TRACT: Large amount of stool demonstrated in the colon, without specific evidence for obstruction. No significant bowel wall thickening is seen. There is mild mesenteric stranding in the lower abdomen near a small bowel loop, of uncertain etiology. No free fluid or free air is seen. ABDOMINAL WALL: No significant hernia is appreciated. LYMPH NODES: Normal. VASCULAR: Unremarkable. PELVIC VISCERA: Unremarkable. OSSEOUS STRUCTURES: Unremarkable. CT/CT abdomen pelvis w con IMPRESSION: Large amount of stool in the colon, without specific evidence for obstruction. Mild stranding noted in the lower abdomen adjacent to a small bowel loop, of uncertain etiology. No significant wall thickening to specifically indicate enteritis.
[2021-01-06 01:41] VITALS: BP 159/92; PULSE 90; RESP 18; TEMP 36.4; O2SAT 98; BMI 34.0
[2021-01-06 02:04] LABS: MANUAL DIFF FLAG NO
[2021-01-06 02:05] LABS: Basophils Percent Auto 0.3 % (0-2); Eosinophils Absolute Auto 0.2 X10*3/uL (0.0-0.4); Eosinophils Percent Auto 1.5 % (0-4); Hematocrit 36.1 % (37-47); Hemoglobin 11.6 g/dl (12.0-16.0); Imm Gran Abs Auto 0.09 X10*3/uL (0.00-0.03); Imm Gran Pct Auto 0.9 % (0.0-0.4); Lymphocytes Absolute Auto 4.1 X10*3/uL (1.2-4.9); Lymphocytes Percent Auto 39.8 % (20-40); Mean Corpuscular HGB Conc 32.1 g/dl (31.0-35.0); Mean Corpuscular Hemoglobin 29.9 pg (27.0-33.0); Mean Platelet Volume 11.7 fL (9.4-12.3); Monocytes Absolute Auto 0.9 X10*3/uL (0.1-1.2); Monocytes Percent Auto 8.5 % (2-11); Platelet Count 227 X10*3/uL (160-400); Red Blood Count 3.88 X10*6/uL (4.20-5.50); Red Cell Distribution Width 14.2 % (11.0-16.0); White Blood Count 10.2 X10*3/uL (4.8-10.8)
[2021-01-06 02:41] LABS: Alanine Aminotransferase 18 U/L (0-31); Albumin Level 4.2 g/dL (3.5-5.0); Alkaline Phosphatase 75 U/L (39-117); Anion Gap 14 (12-20); Aspartate Amino Transferase 11 U/L (5-31); Bilirubin Direct < 0.2 mg/dL (0.0-0.5); Bilirubin Total 0.3 mg/dL (0.0-1.0); Blood Urea Nitrogen 12 mg/dL (9-16); Calcium 9.3 mg/dL (8.4-10.2); Carbon Dioxide 27 mmol/L (22-29); Chloride 92 mmol/L (96-108); Creatinine Clr Calc Pharmacy 102.5; Estimated Glomerular Filt Rate > 60; Glucose Random 109 mg/dL (60-115); Lipase 18 U/L (8-78); Potassium 4.4 mmol/L (3.3-5.1); Sodium 129 mmol/L (135-145); Total Protein 7.2 g/dL (6.5-8.0)
[2021-01-06 04:00] VITALS: BP 139/59; PULSE 90; RESP 18; TEMP 36.4; O2SAT 98
[2021-01-06 04:45] VITALS: RESP 15
[2021-01-06] MEDS: HYDROmorphone HCl 0.5 MG/0.5 ML SYRINGE 0.25 MG IVPUSH (04:45)
--- NOTE | 2021-01-06 04:58 | ED_ITS ---
HPI - Abdominal Pain General Chief Complaint: Abdominal Pain Stated Complaint: constipated Time Seen by Provider: 01/06/21 04:18 Source: patient Mode of arrival: ambulatory History of Present Illness HPI narrative: This is a 55-year-old female history constipation, hypertension, COPD who presents with persistent abdominal pain that is increased in severity since she was last evaluated 01/01. At that time she was seen and diagnosed with constipation discharged home with instructions for and increased bowel regimen. Patient denies any fevers, chills, urinary pain/burning/frequency, shortness of breath, but is having some nausea without vomiting. Related Data Home Medications Medication Instructions Recorded Confirmed Flovent HFA 2 puff INHALATION BID 06/26/20 11/29/20 albuterol sulfate 2.5 mg INHALATION TID 06/26/20 11/29/20 albuterol sulfate [ProAir HFA] 2 puff INHALATION Q4-6H PRN 06/26/20 11/29/20 bisacodyl 5 mg PO BEDTIME 06/26/20 11/29/20 clonazepam 0.5 mg PO DAILY 06/26/20 11/29/20 clonazepam 1 mg PO BEDTIME 06/26/20 11/29/20 clozapine 50 mg PO DAILY 06/26/20 11/29/20 clozapine 300 mg PO BEDTIME 06/26/20 11/29/20 divalproex 1,500 mg PO BEDTIME 06/26/20 11/29/20 docusate sodium 100 mg PO BID 06/26/20 11/29/20 fluoxetine 20 mg PO QAM 06/26/20 11/29/20 lactulose [Generlac] 10 g PO DAILY PRN 06/26/20 11/29/20 lisinopril 10 mg PO QAM 06/26/20 11/29/20 montelukast 10 mg PO BEDTIME 06/26/20 11/29/20 nicotine 1 patch TRANSDERMAL DAILY 06/26/20 11/29/20 omeprazole 20 mg PO DAILY@0630 06/26/20 11/29/20 polyethylene glycol 3350 17 g PO DAILY PRN 06/26/20 11/29/20 tramadol 1 tab PO Q6H 11/12/20 11/29/20 Previous Rx's Medication Instructions Recorded levofloxacin 500 mg PO DAILY #3 tab 12/06/20 metronidazole [Flagyl] 500 mg PO Q8H #9 tab 12/06/20 bisacodyl [Fleet Bisacodyl] 10 mg [place] DAILY PRN #888 ml 01/01/21 polyethylene glycol 3350 [Miralax] 17 g PO BID #238 g 01/01/21 polyethylene glycol 3350 [Miralax] 17 g PO BID PRN #238 g 01/01/21 Allergies Allergy/AdvReac Type Severity Reaction Status Date / Time aspirin [Aspirin] Allergy Unknown VOMIT Verified 12/02/20 13:40 diazepam [From Valium] Allergy Unknown UNKNOWN Verified 12/02/20 13:40 haloperidol [From Haldol] Allergy Unknown UNKN Verified 12/02/20 13:40 penicillin V Allergy Unknown Unknown Verified 12/02/20 13:40 Penicillins Allergy Unknown UNKN Verified 12/02/20 13:40 risperidone [From Risperdal] Allergy Unknown UNKNOWN Verified 12/02/20 13:40 trazodone [TRAZODONE] Allergy Unknown NAUSEA & Verified 12/02/20 13:40 VOMITING From Haldol Allergy Unknown UNKN Uncoded 12/02/20 13:40 Review of Systems Review of Systems Pertinent positives and negatives as stated in HPI 10 point review of systems is otherwise negative. Physical Exam Vital Signs: Vital Signs: Last Vital Signs Temp 97.6 F 01/06/21 06:00 Pulse 103 H 01/06/21 08:45 Resp 20 01/06/21 08:45 BP 121/70 01/06/21 08:45 Pulse Ox 95 01/06/21 08:45 Body Mass Index 34.0 VITAL SIGNS: Reviewed. GENERAL: Well developed, well nourished, in no acute distress. HEAD: Normocephalic/atraumatic EYES: PERRLA, EOMI EARS: Ext canals without abnormality NOSE: Nares patent bilateral OROPHARYNX: no oral lesions noted, posterior pharynx clear NECK: Supple, no adenopathy LUNGS: Normal breath sounds. No adventitious sounds or accessory muscle use. SpO2<98> CARDIOVASCULAR: Regular rate and rhythm without noted murmurs ABDOMEN: Soft, diffusely tender without rebound, non-distended with bowel sounds. NEUROLOGIC: Alert and oriented x 4. Course Course Course Narrative: 55-year-old female with history and clinical presentation consistent with constipation, but will rule out perforation, obstruction. Review of all investigations is otherwise negative other than CTs findings consistent with significant stool burden. Enema attempted with minimal mucus discharge noted. Digital, manual disimpaction attempted however there was no stool within the rectal vault. Patient will undergo Mag citrate and 1 L of IV fluids. Signed out to PATTIE Brown [facility] - Abdominal Pain Lab Data Result diagrams: 01/06/21 01:59 01/06/21 01:59 Labs: Lab Results 01/06/21 01/06/21 01/06/21 Range/Units 01:59 01:59 05:11 WBC 10.2 (4.8-10.8) X10*3/uL RBC 3.88 L (4.20-5.50) X10*6/uL Hgb 11.6 L (12.0-16.0) g/dl Hct 36.1 L (37-47) % MCV 93.0 (80-98) fL MCH 29.9 (27.0-33.0) pg MCHC 32.1 (31.0-35.0) g/dl RDW 14.2 (11.0-16.0) % Plt Count 227 (160-400) X10*3/uL MPV 11.7 (9.4-12.3) fL Immature Gran % (Auto) 0.9 H (0.0-0.4) % Neut % (Auto) 49.0 (45-73) % Lymph % (Auto) 39.8 (20-40) % Moore % (Auto) 8.5 (2-11) % Eos % (Auto) 1.5 (0-4) % Baso % (Auto) 0.3 (0-2) % Lymph # (Auto) 4.1 (1.2-4.9) X10*3/uL Moore # (Auto) 0.9 (0.1-1.2) X10*3/uL Eos # (Auto) 0.2 (0.0-0.4) X10*3/uL Baso # (Auto) 0.0 (0.0-0.2) X10*3/uL Abs Immat Gran (auto) 0.09 H (0.00-0.03) X10*3/uL Absolute Neuts (auto) 5.0 (2.0-8.3) X10*3/uL Absolute Nucleated RBC 0.000 (0.0-0.012) X10*3/uL Nucleated RBC % (auto) 0.0 (0.0-0.2) /100WBC Sodium 129 L (135-145) mmol/L Potassium 4.4 (3.3-5.1) mmol/L Chloride 92 L (96-108) mmol/L Carbon Dioxide 27 (22-29) mmol/L Anion Gap 14 (12-20) BUN 12 (9-16) mg/dL Creatinine 0.60 (0.5-1.4) mg/dL Estim Creat Clear Calc 102.5 Estimated GFR > 60 Random Glucose 109 (60-115) mg/dL Calcium 9.3 (8.4-10.2) mg/dL Total Bilirubin 0.3 (0.0-1.0) mg/dL Direct Bilirubin < 0.2 (0.0-0.5) mg/dL AST 11 (5-31) U/L ALT 18 (0-31) U/L Alkaline Phosphatase 75 (39-117) U/L Total Protein 7.2 (6.5-8.0) g/dL Albumin 4.2 (3.5-5.0) g/dL Lipase 18 (8-78) U/L Urine Color YELLOW Urine Appearance CLEAR Urine pH 6.0 (5.0-8.0) Ur Specific [place] 1.010 (1.005-1.025) Urine Protein NEG (NEG-TRACE) MG/DL Urine Glucose (UA) NEG (NEG) MG/DL Urine Ketones NEG (NEG) MG/DL Urine Blood TRACE (NEG) Urine Nitrite NEG (NEG) Ur Leukocyte Esterase NEG (NEG) Urine RBC 0-2 (0) /HPF Urine WBC 0-2 (0-4) /HPF Ur Squamous Epith Cells 1+ /LPF Urine Bacteria 1+ /LPF Discharge Plan Discharge Clinical Impression: Constipation Patient Disposition: Home, Self-Care Instructions: Constipation (ED), High Fiber Diet (ED), Fleet Enema (ED) Additional Instructions: Return to the emergency room for any acute worsening of symptoms. Prescriptions: No Action tramadol 50 mg tablet 1 tab PO Q6H RF: 0 polyethylene glycol 3350 [Miralax] 17 gram/dose powder 17 g PO BID Qty: 238 RF: 0 polyethylene glycol 3350 [Miralax] 17 gram/dose powder 17 g PO BID PRN (Reason: constipation) Qty: 238 RF: 0 Fleet Bisacodyl 10 mg/30 mL enema 10 mg [place] DAILY PRN (Reason: constipation) Qty: 888 RF: 0 polyethylene glycol 3350 17 gram Powder In Packet 17 g PO DAILY PRN (Reason: Constipation) RF: 0 clozapine 100 mg Tablet 300 mg PO BEDTIME RF: 0 montelukast 10 mg Tablet 10 mg PO BEDTIME RF: 0 clozapine 25 mg Tablet 50 mg PO DAILY RF: 0 omeprazole 20 mg Tablet,Delayed Release (Dr/Ec) 20 mg PO DAILY@0630 RF: 0 albuterol sulfate 2.5 mg /3 mL (0.083 %) Solution For Nebulization 2.5 mg INHALATION TID RF: 0 albuterol sulfate [ProAir HFA] 90 mcg/actuation Hfa Aerosol Inhaler 2 puff INHALATION Q4-6H PRN (Reason: Shortness Of Breath) RF: 0 clonazepam 0.5 mg Tablet 0.5 mg PO DAILY RF: 0 clonazepam 1 mg Tablet 1 mg PO BEDTIME RF: 0 lisinopril 10 mg Tablet 10 mg PO QAM RF: 0 docusate sodium 100 mg Capsule 100 mg PO BID RF: 0 fluoxetine 20 mg Capsule 20 mg PO QAM RF: 0 Flovent HFA 110 mcg/actuation Hfa Aerosol Inhaler 2 puff INHALATION BID RF: 0 bisacodyl 5 mg Tablet 5 mg PO BEDTIME RF: 0 lactulose [Generlac] 10 gram/15 mL Solution 10 g PO DAILY PRN (Reason: Constipation) RF: 0 divalproex 500 mg Tablet Extended Release 24 Hr 1,500 mg PO BEDTIME RF: 0 nicotine 21 mg/24 hr Patch 24 Hour 1 patch TRANSDERMAL DAILY RF: 0 levofloxacin 500 mg tablet 500 mg PO DAILY Qty: 3 RF: 0 metronidazole [Flagyl] 500 mg tablet 500 mg PO Q8H Qty: 9 RF: 0 Referrals: Physician,Unknown [Primary Care Provider] - 2 days PMFSH Past Medical History Source: nursing notes reviewed Medical History Asthma Morbid obesity due to excess calories Schizophrenia Surgical History H/O right knee surgery History of appendectomy History of tubal ligation Family History Family History Father Throat cancer Mother CVA (cerebral vascular accident) Brother Drug overdose Sister No problems noted. Sister No problems noted. Son No problems noted. Son No problems noted. 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
[2021-01-06] MEDS: iohexoL 350 MG/ML 100 ML INFUS..BTL 85 ML IV (05:15)
[2021-01-06 05:18] LABS: Appearance Urine CLEAR; Color Urine YELLOW; Glucose Urine UA NEG (NEG); Leukocyte Esterase Urine NEG (NEG); Nitrite Urine NEG (NEG); Urine Blood TRACE (NEG); Urine Ketones NEG (NEG); Urine Protein NEG (NEG-TRACE)
[2021-01-06 05:24] LABS: Bacteria Urine 1+ /LPF; RBC Urine 0-2 /HPF (0); Squamous Epithelial Cell Urine 1+ /LPF; WBC Urine 0-2 /HPF (0-4)
[2021-01-06 06:00] VITALS: BP 143/88; PULSE 87; RESP 15; TEMP 36.4; O2SAT 98
[2021-01-06] MEDS: Sodium Phosphate,Mono-Dibasic 133 ML ENEMA PR (08:18)
--- NOTE | 2021-01-06 08:31 | PC.NURSE ---
enema given, pt produced mucus only
[2021-01-06 08:45] VITALS: BP 121/70; PULSE 103; RESP 20; O2SAT 95
[2021-01-06 10:00] VITALS: BP 155/93; PULSE 102; RESP 20; O2SAT 95
[2021-01-06] MEDS: Magnesium Citrate 300 ML SOLUTION PO (11:24)
[2021-01-06] MEDS: 0.9 % Sodium Chloride 1,000 ML 999 ML IV (11:24)
== END 2021-01-06 12:55 | disposition home or self-care (01) ==
PROVIDERS: Emergency Provider Student in an Organized Health Care Education/Training Program
DX: K59.00 Constipation, unspecified (principal); R11.0 Nausea; I10 Essential (primary) hypertension; J44.9 Chronic obstructive pulmonary disease, unspecified; E78.5 Hyperlipidemia, unspecified
CPT/HCPCS: 36415; 74177; 80053; 80076; 81001; 82248; 83690; 85025; 96361; 96374; 99284; 99285; J1170; Q9967

== ENCOUNTER 2021-01-11 11:04 | Outpatient (REF) | payer MEDICAID, SELFPAY ==
[2021-01-11 14:24] LABS: Folate 6.3 ng/mL (> or = 4.0); Vitamin B12 378 pg/mL (200-900)
[2021-01-11 14:43] LABS: Ferritin 23 ng/mL (10-250); TSH reflex Free T4 1.85 uIU/mL (0.32-4.0)
== END 2021-01-11 11:05 | disposition home or self-care (01) ==
LOC: HO.LAB 11:04
PROVIDERS: Visit Provider Internal Medicine Gastroenterology
DX: R10.9 Unspecified abdominal pain (principal); K59.00 Constipation, unspecified
CPT/HCPCS: 36415; 82607; 82728; 82746; 84443; 99212

== ENCOUNTER 2021-01-18 12:52 | Outpatient (REF) | payer MEDICAID, SELFPAY ==
[2021-01-18 13:28] LABS: MANUAL DIFF FLAG NO
[2021-01-18 13:36] LABS: Basophils Percent Auto 0.3 % (0-2); Eosinophils Absolute Auto 0.1 X10*3/uL (0.0-0.4); Eosinophils Percent Auto 1.4 % (0-4); Hematocrit 35.7 % (37-47); Hemoglobin 11.1 g/dl (12.0-16.0); Imm Gran Abs Auto 0.04 X10*3/uL (0.00-0.03); Imm Gran Pct Auto 0.5 % (0.0-0.4); Lymphocytes Absolute Auto 2.7 X10*3/uL (1.2-4.9); Lymphocytes Percent Auto 36.1 % (20-40); Mean Corpuscular HGB Conc 31.1 g/dl (31.0-35.0); Mean Corpuscular Hemoglobin 29.3 pg (27.0-33.0); Mean Corpuscular Volume 94.2 fL (80-98); Mean Platelet Volume 11.8 fL (9.4-12.3); Monocytes Absolute Auto 0.7 X10*3/uL (0.1-1.2); Monocytes Percent Auto 8.8 % (2-11); Neut%MD 52.9 %; Neutrophils Absolute Auto 3.9 X10*3/uL (2.0-8.3); Neutrophils Percent Auto 52.9 % (45-73); Platelet Count 242 X10*3/uL (160-400); Red Blood Count 3.79 X10*6/uL (4.20-5.50); Red Cell Distribution Width 14.3 % (11.0-16.0); WBCANC 7.4 X10*3/uL; White Blood Count 7.4 X10*3/uL (4.8-10.8)
== END 2021-01-18 12:53 | disposition home or self-care (01) ==
LOC: HO.LABR 12:52
PROVIDERS: PCP Internal Medicine; Visit Provider Clinical Nurse Specialist Psychiatric/Mental Health, Adult
DX: Z79.899 Other long term (current) drug therapy (principal)
CPT/HCPCS: 36415; 85025; 85048

== ENCOUNTER 2021-02-15 11:15 | Outpatient (REF) | payer MEDICAID, SELFPAY ==
[2021-02-15 12:14] LABS: MANUAL DIFF FLAG NO
[2021-02-15 12:18] LABS: Basophils Percent Auto 0.3 % (0-2); Eosinophils Absolute Auto 0.1 X10*3/uL (0.0-0.4); Eosinophils Percent Auto 1.2 % (0-4); Hematocrit 35.7 % (37-47); Hemoglobin 11.2 g/dl (12.0-16.0); Imm Gran Abs Auto 0.03 X10*3/uL (0.00-0.03); Imm Gran Pct Auto 0.4 % (0.0-0.4); Lymphocytes Absolute Auto 2.8 X10*3/uL (1.2-4.9); Lymphocytes Percent Auto 36.3 % (20-40); Mean Corpuscular HGB Conc 31.4 g/dl (31.0-35.0); Mean Corpuscular Hemoglobin 29.3 pg (27.0-33.0); Mean Corpuscular Volume 93.5 fL (80-98); Mean Platelet Volume 11.9 fL (9.4-12.3); Monocytes Absolute Auto 0.6 X10*3/uL (0.1-1.2); Monocytes Percent Auto 7.5 % (2-11); Neutrophils Absolute Auto 4.1 X10*3/uL (2.0-8.3); Neutrophils Percent Auto 54.3 % (45-73); Platelet Count 289 X10*3/uL (160-400); Red Blood Count 3.82 X10*6/uL (4.20-5.50); White Blood Count 7.6 X10*3/uL (4.8-10.8)
== END 2021-02-15 11:16 | disposition home or self-care (01) ==
LOC: HO.LABR 11:15
PROVIDERS: PCP Internal Medicine; Visit Provider Clinical Nurse Specialist Psychiatric/Mental Health, Adult
DX: Z79.899 Other long term (current) drug therapy (principal)
CPT/HCPCS: 36415; 85025

== ENCOUNTER 2021-02-17 18:12 | Emergency (ER) | payer MEDICAID, SELFPAY ==
--- NOTE | ~2021-02-17 | XR_ITS ---
EXAMINATION: XR ABDOMEN KUB CLINICAL INDICATION: Evaluate for stones COMPARISON: [employer] Operator film CT dated 01/06/2021 TECHNIQUE: AP view of the abdomen. FINDINGS: No evidence of radiopaque calculi. Moderate to marked colonic stool. XR/XR KUB IMPRESSION: No radiopaque calculus is seen. Moderate to marked colonic stool.
[2021-02-17 19:14] VITALS: BP 144/79; PULSE 101; RESP 12; TEMP 37.1; O2SAT 98; BMI 34.0
[2021-02-17 19:39] LABS: Appearance Urine CLEAR; Color Urine YELLOW; Glucose Urine UA NEG (NEG); Leukocyte Esterase Urine NEG (NEG); Nitrite Urine NEG (NEG); Specific Gravity - Urine 1.015 (1.005-1.025); Urine Blood 3+ (NEG); Urine Ketones NEG (NEG); Urine Protein 1+ MG/DL (NEG-TRACE)
[2021-02-17 19:49] LABS: Squamous Epithelial Cell Urine TRACE /LPF
[2021-02-17 21:27] VITALS: BP 136/86; PULSE 91; RESP 18; O2SAT 97
--- NOTE | 2021-02-17 23:06 | ED_ITS ---
HPI - Female Genitourinary General Chief complaint: Urogenital-Female Stated complaint: painful urination Time Seen by Provider: 02/17/21 20:40 Source: patient Mode of arrival: ambulatory Limitations: language barrier ( court interpreter used) History of Present Illness HPI Narrative: patient is a 55-year-old female with a past medical history of schizophrenia and asthma who says she has had burning when she urinates x2 days, also has lower abdomen discomfort and states she had a fever yesterday of 101 degrees at home. She denies any changes in her bowels, denies changes in her eating or drinking. States she has seen some blood in her urine and on the toilet paper when she wipes. She denies being sexually active. Related Data Home Medications Medication Instructions Recorded Confirmed Flovent HFA 2 puff INHALATION BID 06/26/20 11/29/20 albuterol sulfate 2.5 mg INHALATION TID 06/26/20 11/29/20 albuterol sulfate [ProAir HFA] 2 puff INHALATION Q4-6H PRN 06/26/20 11/29/20 bisacodyl 5 mg PO BEDTIME 06/26/20 11/29/20 clonazepam 0.5 mg PO DAILY 06/26/20 11/29/20 clonazepam 1 mg PO BEDTIME 06/26/20 11/29/20 clozapine 50 mg PO DAILY 06/26/20 11/29/20 clozapine 300 mg PO BEDTIME 06/26/20 11/29/20 divalproex 1,500 mg PO BEDTIME 06/26/20 11/29/20 docusate sodium 100 mg PO BID 06/26/20 11/29/20 fluoxetine 20 mg PO QAM 06/26/20 11/29/20 lactulose [Generlac] 10 g PO DAILY PRN 06/26/20 11/29/20 lisinopril 10 mg PO QAM 06/26/20 11/29/20 montelukast 10 mg PO BEDTIME 06/26/20 11/29/20 nicotine 1 patch TRANSDERMAL DAILY 06/26/20 11/29/20 omeprazole 20 mg PO DAILY@0630 06/26/20 11/29/20 polyethylene glycol 3350 17 g PO DAILY PRN 06/26/20 11/29/20 tramadol 1 tab PO Q6H 11/12/20 11/29/20 Previous Rx's Medication Instructions Recorded levofloxacin 500 mg PO DAILY #3 tab 12/06/20 metronidazole [Flagyl] 500 mg PO Q8H #9 tab 12/06/20 bisacodyl [Fleet Bisacodyl] 10 mg [place] DAILY PRN #888 ml 01/01/21 polyethylene glycol 3350 [Miralax] 17 g PO BID #238 g 01/01/21 polyethylene glycol 3350 [Miralax] 17 g PO BID PRN #238 g 01/01/21 linaclotide 290 mcg capsule 290 mcg PO DAILY #60 cap 01/11/21 sulfamethoxazole-trimethoprim 1 tab PO Q12H #6 tab 02/17/21 [Bactrim DS] Allergies Allergy/AdvReac Type Severity Reaction Status Date / Time aspirin [Aspirin] Allergy Unknown VOMIT Verified 01/17/21 13:57 diazepam [From Valium] Allergy Unknown UNKNOWN Verified 01/17/21 13:57 haloperidol [From Haldol] Allergy Unknown UNKN Verified 01/17/21 13:57 penicillin V Allergy Unknown Unknown Verified 01/17/21 13:57 Penicillins Allergy Unknown UNKN Verified 01/17/21 13:57 risperidone [From Risperdal] Allergy Unknown UNKNOWN Verified 01/17/21 13:57 trazodone [TRAZODONE] Allergy Unknown NAUSEA & Verified 01/17/21 13:57 VOMITING From Haldol Allergy Unknown UNKN Uncoded 01/17/21 13:57 Review of Systems Review of Systems: Yes all other systems are reviewed and are negative PMFSH Past Medical History Medical History Asthma Morbid obesity due to excess calories Schizophrenia Surgical History H/O right knee surgery History of appendectomy History of tubal ligation Family History Family History Father Throat cancer Mother CVA (cerebral vascular accident) Brother Drug overdose Sister No problems noted. Sister No problems noted. Son No problems noted. Son No problems noted. 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 Other:: foster mother- her and their two grandchildren Housing: House Do you presently have visiting nurse or other home services: Yes Unable to assess alcohol history related to: Unknown Alcohol intake: unknown Cigarettes Per Day: 10 Second Hand Smoke Exposure: Yes Advance Directives: No Advance Directives Information Provided: Yes Patient : No service: No Current occupational status: disabled Sexual orientation: Straight/Heterosexual Physical Exam Vital Signs: Vital Signs: Last Vital Signs Temp 98.7 F 02/17/21 19:14 Pulse 91 02/17/21 21:27 Resp 18 02/17/21 21:27 BP 136/86 02/17/21 21:27 Pulse Ox 97 02/17/21 21:27 Body Mass Index 34.0 Const: General: cooperative, healthy appearing, comfortable, no acute distress and well developed Orientation/consciousness: patient oriented x3 Limitations: no limitations HENMT: Head: Yes normal to inspection Eyes: General: appearance normal, both eyes and all related structures Neck: Neck: Yes normal visual inspection and Yes full ROM Resp: Effort & Inspection: normal respiratory effort and able to speak in complete sentences Auscultation: clear to auscultation bilaterally Cardio: Rate: regular rate Rhythm: regular rhythm Heart sounds: normal S1 and S2 GI: Inspection: Yes normal to inspection Palpation (GI): Soft to palpation and Tenderness to palpation present (GI) suprapubicly Auscultation: normal bowel sounds Skin: General skin exam: no rashes or lesions noted Neuro: General: patient oriented x3 Extrem: General: Yes normal to inspection Course Course Course Narrative: patient is a 55-year-old female with a past medical history of schizophrenia and asthma who says she has had burning when she urinates x2 days, also has lower abdomen discomfort and states she had a fever yesterday of 101 degrees at home. Will get UA Reevaluation(s) Reevaluation #1: UA negative for infection but positive for blood, will get KUB to rule out stones. Patient has been febrile since she has been in the emergency department. Reevaluation #2: KUB negative for stones And positive for marked stool burden, will give MiraLax and Colace. Will treat patient based on her symptoms for urinary tract infection. Time: 23:08 MDM - Female Genitourinary Lab Data Labs: Lab Results 02/17/21 02/17/21 Range/Units 19:29 21:16 Urine Color YELLOW Cancelled Urine Appearance CLEAR Cancelled Urine pH 7.0 Cancelled (5.0-8.0) Ur Specific [place] 1.015 Cancelled (1.005-1.025) Urine Protein 1+ H Cancelled (NEG-TRACE) MG/DL Urine Glucose (UA) NEG Cancelled (NEG) MG/DL Urine Ketones NEG Cancelled (NEG) MG/DL Urine Blood 3+ H Cancelled (NEG) Urine Nitrite NEG Cancelled (NEG) Ur Leukocyte Esterase NEG Cancelled (NEG) Urine RBC 76-150 H (0) /HPF Urine WBC 1-4 (0-4) /HPF Ur Squamous Epith Cells TRACE /LPF Urine Bacteria NONE /LPF Discharge Plan Discharge Clinical Impression: Urinary tract infection Qualifiers: Urinary tract infection type: acute cystitis Hematuria presence: with hematuria Qualified Code(s): N30.01 - Acute cystitis with hematuria Patient Disposition: Home, Self-Care Instructions: Urinary Tract Infection in Women (ED) Additional Instructions: We are treating you for a urinary tract infection based on your symptoms. your x-ray also showed you were constipated so we have given you some medication to relieve your constipation. I have sent a prescription for an antibiotic to your pharmacy, please start taking this antibiotic tomorrow. We have given your 1st dose of medication in the emergency department tonight. Prescriptions: New sulfamethoxazole-trimethoprim [Bactrim DS] 800-160 mg tablet 1 tab PO Q12H Qty: 6 RF: 0 No Action tramadol 50 mg tablet 1 tab PO Q6H RF: 0 polyethylene glycol 3350 [Miralax] 17 gram/dose powder 17 g PO BID Qty: 238 RF: 0 polyethylene glycol 3350 [Miralax] 17 gram/dose powder 17 g PO BID PRN (Reason: constipation) Qty: 238 RF: 0 Fleet Bisacodyl 10 mg/30 mL enema 10 mg [place] DAILY PRN (Reason: constipation) Qty: 888 RF: 0 polyethylene glycol 3350 17 gram Powder In Packet 17 g PO DAILY PRN (Reason: Constipation) RF: 0 clozapine 100 mg Tablet 300 mg PO BEDTIME RF: 0 montelukast 10 mg Tablet 10 mg PO BEDTIME RF: 0 clozapine 25 mg Tablet 50 mg PO DAILY RF: 0 omeprazole 20 mg Tablet,Delayed Release (Dr/Ec) 20 mg PO DAILY@0630 RF: 0 albuterol sulfate 2.5 mg /3 mL (0.083 %) Solution For Nebulization 2.5 mg INHALATION TID RF: 0 albuterol sulfate [ProAir HFA] 90 mcg/actuation Hfa Aerosol Inhaler 2 puff INHALATION Q4-6H PRN (Reason: Shortness Of Breath) RF: 0 clonazepam 0.5 mg Tablet 0.5 mg PO DAILY RF: 0 clonazepam 1 mg Tablet 1 mg PO BEDTIME RF: 0 lisinopril 10 mg Tablet 10 mg PO QAM RF: 0 docusate sodium 100 mg Capsule 100 mg PO BID RF: 0 fluoxetine 20 mg Capsule 20 mg PO QAM RF: 0 Flovent HFA 110 mcg/actuation Hfa Aerosol Inhaler 2 puff INHALATION BID RF: 0 bisacodyl 5 mg Tablet 5 mg PO BEDTIME RF: 0 lactulose [Generlac] 10 gram/15 mL Solution 10 g PO DAILY PRN (Reason: Constipation) RF: 0 divalproex 500 mg Tablet Extended Release 24 Hr 1,500 mg PO BEDTIME RF: 0 nicotine 21 mg/24 hr Patch 24 Hour 1 patch TRANSDERMAL DAILY RF: 0 levofloxacin 500 mg tablet 500 mg PO DAILY Qty: 3 RF: 0 metronidazole [Flagyl] 500 mg tablet 500 mg PO Q8H Qty: 9 RF: 0 linaclotide 290 mcg capsule 290 mcg PO DAILY Qty: 60 RF: 1 Print Language: Scottish
[2021-02-17] MEDS: polyethylene glycoL 3350 17 GM POWD.PACK PO (23:27)
[2021-02-17] MEDS: Ibuprofen 600 MG TABLET PO (23:27)
[2021-02-17] MEDS: Phenazopyridine HCL 100 MG TABLET PO (23:28)
[2021-02-17] MEDS: Docusate Sodium 100 MG CAPSULE PO (23:28)
[2021-02-17 23:31] VITALS: BP 151/86; PULSE 92; RESP 16; O2SAT 95
== END 2021-02-17 23:45 | disposition home or self-care (01) ==
PROVIDERS: Emergency Provider Internal Medicine; PCP Internal Medicine
DX: N30.01 Acute cystitis with hematuria (principal); J45.909 Unspecified asthma, uncomplicated; Z79.899 Other long term (current) drug therapy
CPT/HCPCS: 74018; 81001; 99283; 99284

== ENCOUNTER 2021-03-22 13:16 | Outpatient (REF) | payer MEDICAID, SELFPAY ==
[2021-03-22 14:30] LABS: MANUAL DIFF FLAG NO
[2021-03-22 14:41] LABS: Basophils Percent Auto 0.1 % (0-2); Eosinophils Absolute Auto 0.1 X10*3/uL (0.0-0.4); Hematocrit 36.7 % (37-47); Hemoglobin 11.3 g/dl (12.0-16.0); Imm Gran Abs Auto 0.05 X10*3/uL (0.00-0.03); Imm Gran Pct Auto 0.6 % (0.0-0.4); Lymphocytes Absolute Auto 2.8 X10*3/uL (1.2-4.9); Lymphocytes Percent Auto 35.2 % (20-40); Mean Corpuscular HGB Conc 30.8 g/dl (31.0-35.0); Mean Corpuscular Hemoglobin 28.8 pg (27.0-33.0); Mean Corpuscular Volume 93.6 fL (80-98); Mean Platelet Volume 11.5 fL (9.4-12.3); Monocytes Absolute Auto 0.6 X10*3/uL (0.1-1.2); Monocytes Percent Auto 6.8 % (2-11); Neut%MD 56.3 %; Neutrophils Absolute Auto 4.5 X10*3/uL (2.0-8.3); Neutrophils Percent Auto 56.3 % (45-73); Platelet Count 253 X10*3/uL (160-400); Red Blood Count 3.92 X10*6/uL (4.20-5.50); Red Cell Distribution Width 13.6 % (11.0-16.0); WBCANC 8.1 X10*3/uL; White Blood Count 8.1 X10*3/uL (4.8-10.8)
== END 2021-03-22 13:17 | disposition home or self-care (01) ==
LOC: HO.LABR 13:16
PROVIDERS: PCP Internal Medicine; Visit Provider Clinical Nurse Specialist Psychiatric/Mental Health, Adult
DX: Z79.899 Other long term (current) drug therapy (principal)
CPT/HCPCS: 36415; 85025

== ENCOUNTER 2021-04-05 13:45 | Outpatient (REF) | payer MEDICAID, SELFPAY ==
--- NOTE | ~2021-04-05 | MM_ITS ---
EXAMINATION: MM DIAGNOSTIC DIGITAL BREAST TOMOSYNTHESIS, BILATERAL CLINICAL INFORMATION: Status post right MRI biopsy 05/06/2019 (breast tissue with dense plasmacytic histiocytic infiltrates, focal fibrosis, periductal mastitis, columnar cell change, usual ductal hyperplasia and microcalcifications. No evidence of malignancy. Plasma cell mastitis may be entertained in the differential diagnosis). Follow-up outside breast MR 12/15/2020 is reported to represent resolution of the previously noted area of non mass enhancement consistent with benign etiology. Due for yearly. The lifetime risk of breast cancer based on the Tyrer-Cuzick Model is 6%. COMPARISON: Mammography: 09/30/2020, 03/29/2020, 08/26/2018; MR guided biopsy 05/06/2019. TECHNIQUE: Digital breast tomosynthesis is performed in both the craniocaudal and mediolateral oblique views along with computer-aided detection (CAD). Synthesized 2D images are generated from the tomosynthesis. FINDINGS: The breasts are heterogeneously dense, which may obscure small masses (ACR BI-RADS breast composition Category c). There is stable minor scarring in the area of biopsy clip marker central posterior 9:00 right breast. Neither breast shows interval mass or developing density or architectural abnormality. There are diffuse bilateral scattered benign punctate round and rim and coarse calcifications again seen. The axilla are unremarkable. There are no significant changes from prior studies. Results are provided to the patient at time of visit by the technologist. MM/MM tomosynthesis diagnostic BI IMPRESSION: No mammographic evidence of malignancy. ASSESSMENT: BI-RADS 2: Benign RECOMMENDATION: Routine annual mammography screening. This patient's information was entered into a reminder system with a target due date for their next mammogram.
== END 2021-04-05 13:46 | disposition home or self-care (01) ==
LOC: HO.MAMMO 13:45
PROVIDERS: Visit Provider Surgery
DX: R92.2 Inconclusive mammogram (principal)
CPT/HCPCS: 77062; 77066

== ENCOUNTER 2021-04-22 19:28 | Emergency (ER) | payer MEDICAID, SELFPAY ==
--- NOTE | 2021-04-22 07:21 | ECG_ITS ---
Test Reason : ABD PAIN Blood Pressure : / mmHG Vent. Rate : 101 BPM Atrial Rate : 101 BPM P-R Int : 142 ms QRS Dur : 074 ms QT Int : 342 ms P-R-T Axes : 059 033 019 degrees QTc Int : 443 ms Sinus tachycardia Otherwise normal ECG When compared with ECG of 29-NOV-2020 14:34, Heart rate has decreased Referred By: Lilia Harding Electronically Signed By:DANYELL ROBERTS
[2021-04-22 20:09] VITALS: BP 159/81; PULSE 98; RESP 16; TEMP 36.9; O2SAT 94; BMI 35.6
[2021-04-22 20:25] LABS: Glucose Urine UA NEG (NEG); Leukocyte Esterase Urine TRACE (NEG); Nitrite Urine NEG (NEG); PH 6.5 (5.0-8.0); UACC Culture Trigger YES; Urine Blood TRACE (NEG); Urine Ketones NEG (NEG); Urine Protein NEG (NEG-TRACE)
[2021-04-22 20:26] LABS: Appearance Urine CLEAR; Color Urine YELLOW
[2021-04-22 20:32] LABS: Bacteria Urine 1+ /LPF; Squamous Epithelial Cell Urine 1+ /LPF
--- NOTE | 2021-04-22 23:01 | ED_ITS ---
HPI - Female Genitourinary General Chief complaint: Urogenital-Female Stated complaint: ?UTI Time Seen by Provider: 04/22/21 22:55 Source: patient Mode of arrival: ambulatory Limitations: no limitations History of Present Illness HPI Narrative: [age] year old female is here today for complaining of burning when urinating. Patient denies any blood in her urine, no flank pain. Patient denies any abdominal discomfort. No nausea or vomiting. Patient had similar symptoms back in February. Patient denies any discharge. Related Data Home Medications Medication Instructions Recorded Confirmed albuterol sulfate 2.5 mg INHALATION TID 06/26/20 11/29/20 albuterol sulfate 90 mcg/actuation 2 puff INHALATION Q4-6H PRN 06/26/20 11/29/20 aerosol inhaler (ProAir HFA) bisacodyl 5 mg tablet 5 mg PO BEDTIME 06/26/20 11/29/20 clonazepam 0.5 mg tablet 0.5 mg PO DAILY 06/26/20 11/29/20 clonazepam 1 mg tablet 1 mg PO BEDTIME 06/26/20 11/29/20 clozapine 100 mg tablet 300 mg PO BEDTIME 06/26/20 11/29/20 clozapine 25 mg tablet 50 mg PO DAILY 06/26/20 11/29/20 divalproex 500 mg tablet,extended 1,500 mg PO BEDTIME 06/26/20 11/29/20 release 24 hr docusate sodium 100 mg capsule 100 mg PO BID 06/26/20 11/29/20 fluoxetine 20 mg capsule 20 mg PO QAM 06/26/20 11/29/20 fluticasone propionate 110 2 puff INHALATION BID 06/26/20 11/29/20 mcg/actuation HFA aerosol inhaler (Flovent HFA) lactulose 10 gram/15 mL oral 10 g PO DAILY PRN 06/26/20 11/29/20 solution (Generlac) lisinopril 10 mg tablet 10 mg PO QAM 06/26/20 11/29/20 montelukast 10 mg tablet 10 mg PO BEDTIME 06/26/20 11/29/20 nicotine 21 mg/24 hr daily 1 patch TRANSDERMAL DAILY 06/26/20 11/29/20 transdermal patch omeprazole 20 mg tablet,delayed 20 mg PO DAILY@0630 06/26/20 11/29/20 release polyethylene glycol 3350 17 gram 17 g PO DAILY PRN 06/26/20 11/29/20 oral powder packet tramadol 50 mg tablet 1 tab PO Q6H 11/12/20 11/29/20 Previous Rx's Medication Instructions Recorded levofloxacin 500 mg tablet 500 mg PO DAILY #3 tab 12/06/20 metronidazole 500 mg tablet 500 mg PO Q8H #9 tab 12/06/20 (Flagyl) bisacodyl 10 mg/30 mL enema (Fleet 10 mg LA DAILY PRN #888 ml 01/01/21 Bisacodyl) polyethylene glycol 3350 17 17 g PO BID #238 g 01/01/21 gram/dose oral powder (Miralax) polyethylene glycol 3350 17 17 g PO BID PRN #238 g 01/01/21 gram/dose oral powder (Miralax) linaclotide 290 mcg capsule 290 mcg PO DAILY #60 cap 01/11/21 sulfamethoxazole 800 1 tab PO Q12H #6 tab 02/17/21 mg-trimethoprim 160 mg tablet (Bactrim DS) nitrofurantoin macrocrystal 100 mg 100 mg PO Q12H #14 cap 04/22/21 capsule phenazopyridine 100 mg tablet 100 mg PO TID PRN #6 tab 04/22/21 (Pyridium) Allergies Allergy/AdvReac Type Severity Reaction Status Date / Time diazepam [From Valium] Allergy Unknown Unknown Verified 04/22/21 20:08 haloperidol [From Haldol] Allergy Unknown Unknown Verified 04/22/21 20:08 Penicillins Allergy Unknown Unknown Verified 04/22/21 20:08 risperidone [From Risperdal] Allergy Unknown Unknown Verified 04/22/21 20:08 aspirin [Aspirin] AdvReac Intermediate Vomiting Verified 04/22/21 20:08 trazodone [TRAZODONE] AdvReac Intermediate NAUSEA & Verified 04/22/21 20:08 VOMITING Review of Systems Review of Systems: Constitutional : No Weight loss, No Fever, No Chills, No Night Sweats, No Fatigue, No Malaise ENT/Mouth : No Hearing loss, No Ear Pain, No Nasal Congestion, No Sinus Pain, No Hoarseness, No sore throat, No Rhinorrhea, No Swallowing Difficulty Eyes: No Eye Pain, No Swelling, No Redness, No Foreign Body, No Discharge, No Vision Changes Cardiovascular : No Chest Pain, No SOB, No Dyspnea on Exertion, No Orthopnea, No Edema, No Palpitations Respiratory : No Cough, No Sputum, No Wheezing, No Smoke Exposure, No Dyspnea Gastrointestinal : No Nausea, No Vomiting, No Diarrhea, No Constipation, No abdominal Pain, No Hematochezia, No Melena Genitourinary : no irregular bleeding, No Dysuria, Urinary Frequency, No Hematuria, No Urinary Incontinence, No Urgency, No Flank Pain, No Urinary Flow Changes, No Hesitancy, burning with urination Musculoskeletal : No joint pain, No Myalgias, No Joint Swelling Skin : No Skin Lesions, No rash Neuro : No Weakness, No Numbness, No Paresthesias, No Loss of Consciousness, No Dizziness, No Headache Psych : No Anxiety/Panic, No Depression, No SI/HI/AH/VH, No Social Issues, Heme/Lymph: No Bruising, No Bleeding,No Lymphadenopathy Endocrine : No Polyuria, No Polydipsia, No Temperature Intolerance Yes all other systems are reviewed and are negative [facility] Past Medical History Medical History (Updated 04/23/21 @ 00:02 by Dalia Carrington) Anxiety Asthma Chronic mental illness COPD (chronic obstructive pulmonary disease) Hyperlipidemia Morbid obesity due to excess calories Schizophrenia Surgical History H/O right knee surgery History of appendectomy History of tubal ligation Family History Family History Father Throat cancer Mother CVA (cerebral vascular accident) Brother Drug overdose Sister No problems noted. Sister No problems noted. Son No problems noted. Son No problems noted. 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 Other:: foster mother- her and their two grandchildren Housing: House Do you presently have visiting nurse or other home services: Yes Unable to assess alcohol history related to: Unknown Alcohol intake: unknown Cigarettes Per Day: 10 Second Hand Smoke Exposure: Yes Advance Directives: No Advance Directives Information Provided: No Patient : No service: No Current occupational status: disabled Sexual orientation: Straight/Heterosexual Physical Exam Vital Signs: Vital Signs: Last Vital Signs Temp 98.5 F 04/22/21 20:09 Pulse 98 04/22/21 20:09 Resp 16 04/22/21 20:09 BP 159/81 H 04/22/21 20:09 Pulse Ox 94 04/22/21 20:09 Body Mass Index 35.6 Const: General: healthy appearing, no acute distress and well developed Nutritional Appearance: well nourished Orientation/consciousness: patient oriented x3 HENMT: Head: Yes normal to inspection, Yes normocephalic and Yes atraumatic Neck: Neck: Yes normal visual inspection, Yes full ROM and Yes trachea midline Thyroid: Thyroid normal Resp: Auscultation: clear to auscultation bilaterally Cardio: Rate: regular rate Rhythm: regular rhythm GI: Inspection: Yes normal to inspection and No distended Palpation (GI): No hepatosplenomegaly present Auscultation: normal bowel sounds : General: Yes bladder normal to palpation and Yes no CVA tenderness Bimanual exam- vagina & uterus: bladder normal to palpation Back/Spine/Pelvis: Back: no CVA tenderness Skin: General skin exam: elasticity normal, turgor normal and dry skin Neuro: General: patient oriented x3 Course Course Course Narrative: 55-year-old female here today for complaining of urinary frequency, burning and pain. No flank pain, no abdominal discomfort, nausea, vomiting or diarrhea. Urine positive for bacteria. Will put her on nitrofurantoin and Pyridium for pain. Patient is agreeable to plan of care and verbalizes understanding of instructions. She was given the opportunity to ask questions and all questions answered. Patient will follow-up with her primary care provider next week. Patient was instructed to report to emergency department if her symptoms will get worse or if she will experience any additional concerning symptoms MDM - Female Genitourinary Lab Data Labs: Lab Results 04/22/21 Range/Units 20:18 Urine Color YELLOW Urine Appearance CLEAR Urine pH 6.5 (5.0-8.0) Ur Specific [place] 1.010 (1.005-1.025) Urine Protein NEG (NEG-TRACE) MG/DL Urine Glucose (UA) NEG (NEG) MG/DL Urine Ketones NEG (NEG) MG/DL Urine Blood TRACE (NEG) Urine Nitrite NEG (NEG) Ur Leukocyte Esterase TRACE H (NEG) Urine RBC 1-4 (0) /HPF Urine WBC 1-4 (0-4) /HPF Ur Squamous Epith Cells 1+ /LPF Urine Bacteria 1+ /LPF Discharge Plan Discharge Clinical Impression: Urinary tract infection Patient Disposition: Home, Self-Care Instructions: Urinary Tract Infection in Older Adults (ED) Additional Instructions: You were seen here today for urinary frequency. Your urine is positive for infection. You will be sent home antibiotics for 7 days. You will also receive medication that will help you with pain. This medication may changing urine to orange. Please follow-up with your primary care physician next week. You may return to emergency department if your symptoms will get worse or if you will experience any additional concerning symptoms Prescriptions: New nitrofurantoin macrocrystal 100 mg capsule 100 mg PO Q12H Qty: 14 RF: 0 phenazopyridine [Pyridium] 100 mg tablet 100 mg PO TID PRN (Reason: urinary burning, pain) Qty: 6 RF: 0 No Action tramadol 50 mg tablet 1 tab PO Q6H RF: 0 polyethylene glycol 3350 [Miralax] 17 gram/dose powder 17 g PO BID Qty: 238 RF: 0 polyethylene glycol 3350 [Miralax] 17 gram/dose powder 17 g PO BID PRN (Reason: constipation) Qty: 238 RF: 0 Fleet Bisacodyl 10 mg/30 mL enema 10 mg LA DAILY PRN (Reason: constipation) Qty: 888 RF: 0 polyethylene glycol 3350 17 gram Powder In Packet 17 g PO DAILY PRN (Reason: Constipation) RF: 0 clozapine 100 mg Tablet 300 mg PO BEDTIME RF: 0 montelukast 10 mg Tablet 10 mg PO BEDTIME RF: 0 clozapine 25 mg Tablet 50 mg PO DAILY RF: 0 omeprazole 20 mg Tablet,Delayed Release (Dr/Ec) 20 mg PO DAILY@0630 RF: 0 albuterol sulfate 2.5 mg /3 mL (0.083 %) Solution For Nebulization 2.5 mg INHALATION TID RF: 0 albuterol sulfate [ProAir HFA] 90 mcg/actuation Hfa Aerosol Inhaler 2 puff INHALATION Q4-6H PRN (Reason: Shortness Of Breath) RF: 0 clonazepam 0.5 mg Tablet 0.5 mg PO DAILY RF: 0 clonazepam 1 mg Tablet 1 mg PO BEDTIME RF: 0 lisinopril 10 mg Tablet 10 mg PO QAM RF: 0 docusate sodium 100 mg Capsule 100 mg PO BID RF: 0 fluoxetine 20 mg Capsule 20 mg PO QAM RF: 0 Flovent HFA 110 mcg/actuation Hfa Aerosol Inhaler 2 puff INHALATION BID RF: 0 bisacodyl 5 mg Tablet 5 mg PO BEDTIME RF: 0 lactulose [Generlac] 10 gram/15 mL Solution 10 g PO DAILY PRN (Reason: Constipation) RF: 0 divalproex 500 mg Tablet Extended Release 24 Hr 1,500 mg PO BEDTIME RF: 0 nicotine 21 mg/24 hr Patch 24 Hour 1 patch TRANSDERMAL DAILY RF: 0 levofloxacin 500 mg tablet 500 mg PO DAILY Qty: 3 RF: 0 metronidazole [Flagyl] 500 mg tablet 500 mg PO Q8H Qty: 9 RF: 0 sulfamethoxazole-trimethoprim [Bactrim DS] 800-160 mg tablet 1 tab PO Q12H Qty: 6 RF: 0 linaclotide 290 mcg capsule 290 mcg PO DAILY Qty: 60 RF: 1 Interventions: ED Discharge Assessment Last Done: 04/22/21 23:18 Discharge Date/Time: 04/22/21 23:21
[2021-04-22] MEDS: Phenazopyridine HCL 100 MG TABLET PO (23:14)
--- NOTE | 2021-04-22 23:16 | PC.NURSE ---
MACROBID NOT AVAILABLE IN [employer] GLOBAL SEARCH NOT AVAILABLE IN HOSPITAL. PT WILL START IN AM.
== END 2021-04-22 23:21 | disposition home or self-care (01) ==
PROVIDERS: Emergency Provider Internal Medicine
DX: N39.0 Urinary tract infection, site not specified (principal); R30.0 Dysuria; Z79.899 Other long term (current) drug therapy
CPT/HCPCS: 81001; 87086; 93005; 99283; 99284

== ENCOUNTER 2021-04-26 09:32 | Outpatient (REF) | payer MEDICAID, SELFPAY ==
[2021-04-26 10:48] LABS: MANUAL DIFF FLAG NO
[2021-04-26 11:05] LABS: Basophils Percent Auto 0.2 % (0-2); Eosinophils Absolute Auto 0.1 X10*3/uL (0.0-0.4); Eosinophils Percent Auto 1.1 % (0-4); Hematocrit 34.3 % (37-47); Hemoglobin 10.8 g/dl (12.0-16.0); Imm Gran Abs Auto 0.09 X10*3/uL (0.00-0.03); Imm Gran Pct Auto 0.8 % (0.0-0.4); Lymphocytes Absolute Auto 2.6 X10*3/uL (1.2-4.9); Lymphocytes Percent Auto 24.1 % (20-40); Mean Corpuscular HGB Conc 31.5 g/dl (31.0-35.0); Mean Corpuscular Volume 92.2 fL (80-98); Mean Platelet Volume 10.8 fL (9.4-12.3); Monocytes Absolute Auto 0.9 X10*3/uL (0.1-1.2); Neut%MD 65.8 %; Neutrophils Absolute Auto 7.2 X10*3/uL (2.0-8.3); Neutrophils Percent Auto 65.8 % (45-73); Platelet Count 254 X10*3/uL (160-400); Red Blood Count 3.72 X10*6/uL (4.20-5.50); Red Cell Distribution Width 13.8 % (11.0-16.0); WBCANC 10.9 X10*3/uL; White Blood Count 10.9 X10*3/uL (4.8-10.8)
== END 2021-04-26 09:33 | disposition home or self-care (01) ==
LOC: HO.LABR 09:32
PROVIDERS: PCP Internal Medicine; Visit Provider Clinical Nurse Specialist Psychiatric/Mental Health, Adult
DX: Z79.899 Other long term (current) drug therapy (principal)
CPT/HCPCS: 36415; 85025

== ENCOUNTER 2021-05-31 15:33 | Outpatient (REF) | payer MEDICAID, SELFPAY ==
[2021-05-31 15:53] LABS: MANUAL DIFF FLAG NO
[2021-05-31 16:03] LABS: Basophils Percent Auto 0.2 % (0-2); Eosinophils Absolute Auto 0.1 X10*3/uL (0.0-0.4); Eosinophils Percent Auto 1.2 % (0-4); Hematocrit 34.3 % (37-47); Hemoglobin 10.9 g/dl (12.0-16.0); Imm Gran Abs Auto 0.09 X10*3/uL (0.00-0.03); Lymphocytes Absolute Auto 3.1 X10*3/uL (1.2-4.9); Lymphocytes Percent Auto 33.2 % (20-40); Mean Corpuscular HGB Conc 31.8 g/dl (31.0-35.0); Mean Corpuscular Hemoglobin 29.1 pg (27.0-33.0); Mean Corpuscular Volume 91.7 fL (80-98); Mean Platelet Volume 11.1 fL (9.4-12.3); Monocytes Absolute Auto 0.8 X10*3/uL (0.1-1.2); Monocytes Percent Auto 8.9 % (2-11); Neut%MD 55.5 %; Neutrophils Absolute Auto 5.1 X10*3/uL (2.0-8.3); Neutrophils Percent Auto 55.5 % (45-73); Platelet Count 254 X10*3/uL (160-400); Red Blood Count 3.74 X10*6/uL (4.20-5.50); Red Cell Distribution Width 13.9 % (11.0-16.0); WBCANC 9.2 X10*3/uL; White Blood Count 9.2 X10*3/uL (4.8-10.8)
== END 2021-05-31 15:34 | disposition home or self-care (01) ==
LOC: HO.LAB 15:33
PROVIDERS: PCP Internal Medicine; Visit Provider Clinical Nurse Specialist Psychiatric/Mental Health, Adult
DX: Z79.899 Other long term (current) drug therapy (principal)
CPT/HCPCS: 36415; 85025

== ENCOUNTER 2021-06-14 15:48 | Outpatient (REF) | payer MEDICAID, SELFPAY ==
[2021-06-14 15:58] LABS: MANUAL DIFF FLAG NO
[2021-06-14 16:08] LABS: Basophils Percent Auto 0.3 % (0-2); Eosinophils Absolute Auto 0.1 X10*3/uL (0.0-0.4); Hematocrit 36.3 % (37-47); Hemoglobin 11.3 g/dl (12.0-16.0); Imm Gran Abs Auto 0.05 X10*3/uL (0.00-0.03); Imm Gran Pct Auto 0.6 % (0.0-0.4); Lymphocytes Absolute Auto 3.1 X10*3/uL (1.2-4.9); Lymphocytes Percent Auto 36.1 % (20-40); Mean Corpuscular HGB Conc 31.1 g/dl (31.0-35.0); Mean Corpuscular Volume 93.1 fL (80-98); Mean Platelet Volume 11.3 fL (9.4-12.3); Monocytes Absolute Auto 0.7 X10*3/uL (0.1-1.2); Monocytes Percent Auto 8.1 % (2-11); Neutrophils Absolute Auto 4.7 X10*3/uL (2.0-8.3); Neutrophils Percent Auto 53.9 % (45-73); Platelet Count 258 X10*3/uL (160-400); Red Cell Distribution Width 13.8 % (11.0-16.0); White Blood Count 8.7 X10*3/uL (4.8-10.8)
== END 2021-06-14 15:49 | disposition home or self-care (01) ==
LOC: HO.LABR 15:48
PROVIDERS: PCP Internal Medicine; Visit Provider Clinical Nurse Specialist Psychiatric/Mental Health, Adult
DX: Z79.899 Other long term (current) drug therapy (principal)
CPT/HCPCS: 36415; 85025

== ENCOUNTER 2021-07-07 20:23 | Inpatient (IN) | payer OTHER, MEDICAID, SELFPAY ==
[2021-07-07 20:36] VITALS: BP 152/90; PULSE 108; RESP 17; TEMP 37.2; O2SAT 97; BMI 33.0
[2021-07-07 21:01] LABS: Appearance Urine CLEAR; Color Urine YELLOW; Glucose Urine UA NEG (NEG); Leukocyte Esterase Urine NEG (NEG); Nitrite Urine NEG (NEG); Specific Gravity - Urine 1.015 (1.005-1.025); UACC Culture Trigger NO; Urine Blood TRACE (NEG); Urine Ketones NEG (NEG); Urine Protein NEG (NEG-TRACE)
[2021-07-07 21:08] LABS: Bacteria Urine TRACE /LPF; Squamous Epithelial Cell Urine 2+ /LPF; WBC Urine 0 /HPF (0-4)
[2021-07-07 21:14] LABS: COVID-19 Test Negative (Negative)
[2021-07-07 21:18] LABS: Amphetamine Screen Urine Not Detected (Not Detect); Barbiturates, Urine Not Detected (Not Detect); Benzodiazepines Screen Urine Not Detected (Not Detect); Cannabinoid Screen Urine Not Detected (Not Detect); Cocaine Screen Urine Not Detected (Not Detect); Fentanyl, urine Not Detected (Not Detect); Opiate Screen Urine Not Detected (Not Detect); Phencyclidine Screen Urine Not Detected (Not Detect)
[2021-07-07 21:28] LABS: MANUAL DIFF FLAG NO
[2021-07-07 21:30] LABS: Basophils Percent Auto 0.2 % (0-2); Eosinophils Absolute Auto 0.1 X10*3/uL (0.0-0.4); Hematocrit 35.6 % (37.0-47.0); Hemoglobin 11.3 g/dl (12.0-16.0); Imm Gran Abs Auto 0.07 X10*3/uL (0.00-0.03); Imm Gran Pct Auto 0.8 % (0.0-0.4); Lymphocytes Absolute Auto 3.1 X10*3/uL (1.2-4.9); Lymphocytes Percent Auto 33.9 % (20-40); Mean Corpuscular HGB Conc 31.7 g/dl (31.0-35.0); Mean Corpuscular Volume 91.3 fL (80.0-98.0); Mean Platelet Volume 11.4 fL (9.4-12.3); Monocytes Absolute Auto 0.7 X10*3/uL (0.1-1.2); Monocytes Percent Auto 7.2 % (2-11); Neutrophils Absolute Auto 5.3 x10*3/uL (2.0-8.3); Neutrophils Percent Auto 56.9 % (45-73); Platelet Count 260 X10*3/uL (160-400); Red Cell Distribution Width 13.8 % (11.0-16.0); White Blood Count 9.2 X10*3/uL (4.8-10.8)
[2021-07-07 21:41] LABS: Ethanol < 10 mg/dL
[2021-07-07 21:43] LABS: Anion Gap 13 (12-20); Blood Urea Nitrogen 7 mg/dL (9-16); Calcium 9.1 mg/dL (8.4-10.2); Carbon Dioxide 28 mmol/L (22-29); Chloride 102 mmol/L (96-108); Creatinine Clr Calc Pharmacy 86.6; Estimated Glomerular Filt Rate > 60; Glucose Random 192 mg/dL (60-115); Sodium 139 mmol/L (135-145)
--- NOTE | 2021-07-07 22:10 | ED.PSYCH ---
HPI - Psych General Chief Complaint: Psychiatric Symptoms <Nam Bergeron MD - Last Filed: 07/08/21 07:55> Stated Complaint: Crisis <Nam Bergeron MD - Last Filed: 07/08/21 07:55> Time Seen by Provider: 07/07/21 22:10 <Nam Bergeron MD - Last Filed: 07/08/21 07:55> Source: patient <Nam Bergeron MD - Last Filed: 07/08/21 07:55> Mode of arrival: ambulatory <Nam Bergeron MD - Last Filed: 07/08/21 07:55> Limitations: no limitations <Nam Bergeron MD - Last Filed: 07/08/21 07:55> History of Present Illness HPI Narrative: patient comes to the ED stating that she is hearing voices that has been increasing over the past few days. Patient has a history of multiple visits. She feels that her suicidal ideations are worse along with auditory and visual hallucinations. Her visual hallucinations are seeing snakes on the floor. <Nam Bergeron MD - Last Filed: 07/08/21 07:55> MD complaint: suicidal ideation <Nam Bergeron MD - Last Filed: 07/08/21 07:55> Onset (ago): day(s) <Nam Bergeron MD - Last Filed: 07/08/21 07:55> Duration: constant <Nam Bergeron MD - Last Filed: 07/08/21 07:55> History of same: Yes <Nam Bergeron MD - Last Filed: 07/08/21 07:55> Associated psychiatric symptoms: depression and auditory hallucinations <Nam Bergeron MD - Last Filed: 07/08/21 07:55> Associated symptoms: denies other symptoms <Nam Bergeron MD - Last Filed: 07/08/21 07:55> If self harm: has plan <Nam Bergeron MD - Last Filed: 07/08/21 07:55> Details of plan: the voices are telling her to cut her wrists <Nam Bergeron MD - Last Filed: 07/08/21 07:55> Related Data Home Medications: Home Medications Medication Instructions Recorded Confirmed albuterol sulfate 3 ml INHALATION TID 07/07/21 07/07/21 clonazepam 0.5 mg tablet 1 tab PO QAM 07/07/21 07/07/21 clonazepam 1 mg tablet 1 tab PO BEDTIME 07/07/21 07/07/21 clozapine 100 mg tablet 3 tab PO BEDTIME 07/07/21 07/07/21 clozapine 25 mg tablet 2 tab PO QAM 07/07/21 07/07/21 divalproex 500 mg tablet,extended 3 tab PO BEDTIME 07/07/21 07/07/21 release 24 hr fluoxetine 20 mg capsule 1 cap PO QAM 07/07/21 07/07/21 fluticasone propionate 110 2 puff PO BID 07/07/21 07/07/21 mcg/actuation HFA aerosol inhaler (Flovent HFA) lactulose 10 gram/15 mL oral 15 ml PO DAILY PRN 07/07/21 07/07/21 solution (Generlac) lisinopril 10 mg tablet 1 tab PO QPM 07/07/21 07/07/21 montelukast 10 mg tablet 1 tab PO DAILY 07/07/21 07/07/21 omeprazole 20 mg capsule,delayed 1 cap PO BID 07/07/21 07/07/21 release polyethylene glycol 3350 17 17 g PO DAILY 07/07/21 07/07/21 gram/dose oral powder tramadol 50 mg tablet 1 tab PO Q6H 07/07/21 07/07/21 <Nam Bergeron MD - Last Filed: 07/08/21 07:55> Allergies/Adverse Reactions: Allergies Allergy/AdvReac Type Severity Reaction Status Date / Time diazepam [From Valium] Allergy Unknown Unknown Verified 04/22/21 20:08 haloperidol [From Haldol] Allergy Unknown Unknown Verified 04/22/21 20:08 Penicillins Allergy Unknown Unknown Verified 04/22/21 20:08 risperidone [From Risperdal] Allergy Unknown Unknown Verified 04/22/21 20:08 aspirin [Aspirin] AdvReac Intermediate Vomiting Verified 04/22/21 20:08 trazodone [TRAZODONE] AdvReac Intermediate NAUSEA & Verified 04/22/21 20:08 VOMITING <Nam Bergeron MD - Last Filed: 07/08/21 07:55> Review of Systems Constitutional: Constitutional: Reports no additional constitutional complaints <Nam Bergeron MD - Last Filed: 07/08/21 07:55> Eyes: Eyes: Reports no additional eye complaints <Nam Bergeron MD - Last Filed: 07/08/21 07:55> ENT: Denies dizziness <Nam Bergeron MD - Last Filed: 07/08/21 07:55> Cardiovascular: Cardiovascular: Reports no additional cardiovascular complaints <Nam Bergeron MD - Last Filed: 07/08/21 07:55> Respiratory: Respiratory: Reports as per HPI <Nam Bergeron MD - Last Filed: 07/08/21 07:55> Gastrointestinal: Gastrointestinal: Reports no additional gastrointestinal complaints <Nam Bergeron MD - Last Filed: 07/08/21 07:55> Genitourinary: Genitourinary: Reports no additional female genitourinary complaints <Nam Bergeron MD - Last Filed: 07/08/21 07:55> Musculoskeletal: Musculoskeletal: Reports no additional musculoskeletal complaints <Nam Bergeron MD - Last Filed: 07/08/21 07:55> Integumentary/Breasts: Skin/Breast: Denies rash <Nam Bergeron MD - Last Filed: 07/08/21 07:55> Neurologic: Reports system reviewed and no additional complaints, except as documented, Denies dizziness and Denies Sensory deficit (Neuro) <Nam Bergeron MD - Last Filed: 07/08/21 07:55> Psychiatric: Psychiatric: Denies anxiety <Nam Bergeron MD - Last Filed: 07/08/21 07:55> PMFSH Past Medical History Medical History: Medical History Anxiety Asthma Chronic mental illness COPD (chronic obstructive pulmonary disease) Hyperlipidemia Morbid obesity due to excess calories Schizophrenia <Nam Bergeron MD - Last Filed: 07/08/21 07:55> Surgical History: Surgical History H/O right knee surgery History of appendectomy History of tubal ligation <Nam Bergeron MD - Last Filed: 07/08/21 07:55> Family History Family History: Family History Father Throat cancer Mother CVA (cerebral vascular accident) Brother Drug overdose Sister No problems noted. Sister No problems noted. Son No problems noted. Son No problems noted. 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 Household Members Other:: foster mother- her and their two grandchildren Housing: House Do you presently have visiting nurse or other home services: Yes Unable to assess alcohol history related to: Unknown Alcohol intake: unknown Patient Tobacco Use Status: Current everyday Tobacco user Tobacco use type: Smokeless Tobacco Cigarettes Per Day: 10 Second Hand Smoke Exposure: Yes Advance Directives: Yes Advance Directives on File: Yes Advance Directives Date on File: 03/03/14 Patient : No service: No Current occupational status: disabled Sexual orientation: Straight/Heterosexual <Nam Bergeron MD - Last Filed: 07/08/21 07:55> Physical Exam Vital Signs: Vital Signs: Last Vital Signs Temp 99 F 07/07/21 20:36 Pulse 90 07/07/21 22:59 Resp 17 07/07/21 20:36 BP 126/73 07/07/21 22:59 Pulse Ox 97 07/07/21 20:36 Body Mass Index 33.0 <Nam Bergeron MD - Last Filed: 07/08/21 07:55> Vital Signs: Last Vital Signs Temp 99 F 07/07/21 20:36 Pulse 90 07/07/21 22:59 Resp 17 07/07/21 20:36 BP 126/73 07/07/21 22:59 Pulse Ox 97 07/07/21 20:36 Body Mass Index 33.0 <PATTIE Casas - Last Filed: 07/08/21 09:15> Const: Other: female appearing chronically ill, tremulous <Nam Bergeron MD - Last Filed: 07/08/21 07:55> Nutritional Appearance: obese <Nam Bergeron MD - Last Filed: 07/08/21 07:55> Orientation/consciousness: oriented to person <Nam Bergeron MD - Last Filed: 07/08/21 07:55> Limitations: no limitations <Nam Bergeron MD - Last Filed: 07/08/21 07:55> HENMT: Head: Yes normal to inspection <Nam Bergeron MD - Last Filed: 07/08/21 07:55> Ears: external ears normal <Nam Bergeron MD - Last Filed: 07/08/21 07:55> General nose exam: Normal external nose present <Nam Bergeron MD - Last Filed: 07/08/21 07:55> Mouth: Normal oral and palatal mucosa present and oropharynx normal <Nam Bergeron MD - Last Filed: 07/08/21 07:55> Throat: Yes posterior oropharynx normal <Nam Bergeron MD - Last Filed: 07/08/21 07:55> Eyes: General: appearance normal, both eyes and all related structures <Nam Bergeron MD - Last Filed: 07/08/21 07:55> Neck: Other: supple <Nam Bergeron MD - Last Filed: 07/08/21 07:55> Neck: Yes normal visual inspection <Nam Bergeron MD - Last Filed: 07/08/21 07:55> Chest: Chest palpation & inspection: normal inspection of the chest <Nam Bergeron MD - Last Filed: 07/08/21 07:55> Resp: Auscultation: clear to auscultation bilaterally <Nam Bergeron MD - Last Filed: 07/08/21 07:55> Cardio: Jugular venous distension: no JVD <Nam Bergeron MD - Last Filed: 07/08/21 07:55> Rate: regular rate <Nam Bergeron MD - Last Filed: 07/08/21 07:55> Rhythm: regular rhythm <Nam Bergeron MD - Last Filed: 07/08/21 07:55> Heart sounds: S1 normal heart sound present and S2 normal heart sound present <Nam Bergeron MD - Last Filed: 07/08/21 07:55> GI: Inspection: Yes normal to inspection <Nam Bergeron MD - Last Filed: 07/08/21 07:55> Palpation (GI): Soft to palpation, nontender and No hepatosplenomegaly present <Nam Bergeron MD - Last Filed: 07/08/21 07:55> Auscultation: normal bowel sounds <Nam Bergeron MD - Last Filed: 07/08/21 07:55> : General: Yes no CVA tenderness <Nam Bergeron MD - Last Filed: 07/08/21 07:55> Back/Spine/Pelvis: Back: no CVA tenderness <Nam Bergeron MD - Last Filed: 07/08/21 07:55> Skin: General skin exam: no rashes or lesions noted <Nam Bergeron MD - Last Filed: 07/08/21 07:55> Neuro: General: oriented to person <Nam Bergeron MD - Last Filed: 07/08/21 07:55> Cranial nerves: Yes CN's II-XII intact bilaterally <Nam Bergeron MD - Last Filed: 07/08/21 07:55> Motor exam (neuro): 5/5 motor strength present throughout <Nam Bergeron MD - Last Filed: 07/08/21 07:55> Sensory Exam: No Sensory deficit (Neuro) <Nam Bergeron MD - Last Filed: 07/08/21 07:55> Extrem: General: Yes normal to inspection <Nam Bergeron MD - Last Filed: 07/08/21 07:55> Psych: Appearance: grossly normal <Nam Bergeron MD - Last Filed: 07/08/21 07:55> Course Reevaluation(s) Reevaluation #1: Patient placed in physician observation at 8am The indication for observation is that the patient needs more time to see if her depression improves or she will need to be admitted. At this time the patient is well developed well nourished, lungs clear, CV RRR, abd nontender, neuro is intact <Nam Bergeron MD - Last Filed: 07/08/21 07:55> Time: 07:55 <Nam Bergeron MD - Last Filed: 07/08/21 07:55> Reevaluation #2: Patient is physician observation and awaiting N evaluation. Patient ordered for zofran for nausea. Vital signs are stable. <PATTIE Casas - Last Filed: 07/08/21 09:15> Time: 21:14 <PATTIE Casas - Last Filed: 07/08/21 09:15> MDM - Psych Lab Data Result diagrams: : 07/07/21 21:23 07/07/21 21:24 <Nam Bergeron MD - Last Filed: 07/08/21 07:55> Labs: Lab Results 07/07/21 07/07/21 07/07/21 Range/Units 20:52 20:53 20:53 WBC (4.8-10.8) X10*3/uL RBC (4.20-5.50) X10*6/uL Hgb (12.0-16.0) g/dl Hct (37.0-47.0) % MCV (80.0-98.0) fL MCH (27.0-33.0) pg MCHC (31.0-35.0) g/dl RDW (11.0-16.0) % Plt Count (160-400) X10*3/uL MPV (9.4-12.3) fL Immature Gran % (Auto) (0.0-0.4) % Neut % (Auto) (45-73) % Lymph % (Auto) (20-40) % Oliver % (Auto) (2-11) % Eos % (Auto) (0-4) % Baso % (Auto) (0-2) % Lymph # (Auto) (1.2-4.9) X10*3/uL Oliver # (Auto) (0.1-1.2) X10*3/uL Eos # (Auto) (0.0-0.4) X10*3/uL Baso # (Auto) (0.0-0.2) X10*3/uL Abs Immat Gran (auto) (0.00-0.03) X10*3/uL Absolute Neuts (auto) (2.0-8.3) x10*3/uL Absolute Nucleated RBC (0.0-0.012) X10*3/uL Nucleated RBC % (auto) (0.0-0.2) /100WBC Sodium (135-145) mmol/L Potassium (3.3-5.1) mmol/L Chloride (96-108) mmol/L Carbon Dioxide (22-29) mmol/L Anion Gap (12-20) BUN (9-16) mg/dL Creatinine (0.5-1.4) mg/dL Estim Creat Clear Calc Estimated GFR Random Glucose (60-115) mg/dL Calcium (8.4-10.2) mg/dL Urine Color YELLOW Urine Appearance CLEAR Urine pH 6.0 (5.0-8.0) Ur Specific [place] 1.015 (1.005-1.025) Urine Protein NEG (NEG-TRACE) MG/DL Urine Glucose (UA) NEG (NEG) MG/DL Urine Ketones NEG (NEG) MG/DL Urine Blood TRACE (NEG) Urine Nitrite NEG (NEG) Ur Leukocyte Esterase NEG (NEG) Urine RBC 1-4 (0) /HPF Urine WBC 0 (0-4) /HPF Ur Squamous Epith Cells 2+ /LPF Urine Bacteria TRACE /LPF Salicylates (15-30) mg/dL Urine Opiates Screen Not Detected (Not Detect) Urine Fentanyl Screen Not Detected (Not Detect) Acetaminophen (<30) mcg/mL Ur Barbiturates Screen Not Detected (Not Detect) Ur Phencyclidine Scrn Not Detected (Not Detect) Ur Amphetamines Screen Not Detected (Not Detect) U Benzodiazepines Scrn Not Detected (Not Detect) Urine Cocaine Screen Not Detected (Not Detect) U Marijuana (THC) Screen Not Detected (Not Detect) Ethyl Alcohol mg/dL COVID-19 ([facility]) Negative (Negative) COVID-19 Clin Com See Note 07/07/21 07/07/21 07/07/21 Range/Units 21:23 21:24 21:24 WBC 9.2 (4.8-10.8) X10*3/uL RBC 3.90 L (4.20-5.50) X10*6/uL Hgb 11.3 L (12.0-16.0) g/dl Hct 35.6 L (37.0-47.0) % MCV 91.3 (80.0-98.0) fL MCH 29.0 (27.0-33.0) pg MCHC 31.7 (31.0-35.0) g/dl RDW 13.8 (11.0-16.0) % Plt Count 260 (160-400) X10*3/uL MPV 11.4 (9.4-12.3) fL Immature Gran % (Auto) 0.8 H (0.0-0.4) % Neut % (Auto) 56.9 (45-73) % Lymph % (Auto) 33.9 (20-40) % [place] % (Auto) 7.2 (2-11) % Eos % (Auto) 1.0 (0-4) % Baso % (Auto) 0.2 (0-2) % Lymph # (Auto) 3.1 (1.2-4.9) X10*3/uL Oliver # (Auto) 0.7 (0.1-1.2) X10*3/uL Eos # (Auto) 0.1 (0.0-0.4) X10*3/uL Baso # (Auto) 0.0 (0.0-0.2) X10*3/uL Abs Immat Gran (auto) 0.07 H (0.00-0.03) X10*3/uL Absolute Neuts (auto) 5.3 (2.0-8.3) x10*3/uL Absolute Nucleated RBC 0.000 (0.0-0.012) X10*3/uL Nucleated RBC % (auto) 0.0 (0.0-0.2) /100WBC Sodium 139 (135-145) mmol/L Potassium 4.0 (3.3-5.1) mmol/L Chloride 102 (96-108) mmol/L Carbon Dioxide 28 (22-29) mmol/L Anion Gap 13 (12-20) BUN 7 L (9-16) mg/dL Creatinine 0.70 (0.5-1.4) mg/dL Estim Creat Clear Calc 86.6 Estimated GFR > 60 Random Glucose 192 H (60-115) mg/dL Calcium 9.1 (8.4-10.2) mg/dL Urine Color Urine Appearance Urine pH (5.0-8.0) Ur Specific [place] (1.005-1.025) Urine Protein (NEG-TRACE) MG/DL Urine Glucose (UA) (NEG) MG/DL Urine Ketones (NEG) MG/DL Urine Blood (NEG) Urine Nitrite (NEG) Ur Leukocyte Esterase (NEG) Urine RBC (0) /HPF Urine WBC (0-4) /HPF Ur Squamous Epith Cells /LPF Urine Bacteria /LPF Salicylates < 5.0 L (15-30) mg/dL Urine Opiates Screen (Not Detect) Urine Fentanyl Screen (Not Detect) Acetaminophen < 1 (<30) mcg/mL Ur Barbiturates Screen (Not Detect) Ur Phencyclidine Scrn (Not Detect) Ur Amphetamines Screen (Not Detect) U Benzodiazepines Scrn (Not Detect) Urine Cocaine Screen (Not Detect) U Marijuana (THC) Screen (Not Detect) Ethyl Alcohol < 10 mg/dL COVID-19 ([facility]) (Negative) COVID-19 Clin Com <Nam Bergeron MD - Last Filed: 07/08/21 07:55> Lab Results 07/07/21 07/07/21 07/07/21 Range/Units 20:52 20:53 20:53 WBC (4.8-10.8) X10*3/uL RBC (4.20-5.50) X10*6/uL Hgb (12.0-16.0) g/dl Hct (37.0-47.0) % MCV (80.0-98.0) fL MCH (27.0-33.0) pg MCHC (31.0-35.0) g/dl RDW (11.0-16.0) % Plt Count (160-400) X10*3/uL MPV (9.4-12.3) fL Immature Gran % (Auto) (0.0-0.4) % Neut % (Auto) (45-73) % Lymph % (Auto) (20-40) % [place] % (Auto) (2-11) % Eos % (Auto) (0-4) % Baso % (Auto) (0-2) % Lymph # (Auto) (1.2-4.9) X10*3/uL [place] # (Auto) (0.1-1.2) X10*3/uL Eos # (Auto) (0.0-0.4) X10*3/uL Baso # (Auto) (0.0-0.2) X10*3/uL Abs Immat Gran (auto) (0.00-0.03) X10*3/uL Absolute Neuts (auto) (2.0-8.3) x10*3/uL Absolute Nucleated RBC (0.0-0.012) X10*3/uL Nucleated RBC % (auto) (0.0-0.2) /100WBC Sodium (135-145) mmol/L Potassium (3.3-5.1) mmol/L Chloride (96-108) mmol/L Carbon Dioxide (22-29) mmol/L Anion Gap (12-20) BUN (9-16) mg/dL Creatinine (0.5-1.4) mg/dL Estim Creat Clear Calc Estimated GFR Random Glucose (60-115) mg/dL Calcium (8.4-10.2) mg/dL Urine Color YELLOW Urine Appearance CLEAR Urine pH 6.0 (5.0-8.0) Ur Specific [place] 1.015 (1.005-1.025) Urine Protein NEG (NEG-TRACE) MG/DL Urine Glucose (UA) NEG (NEG) MG/DL Urine Ketones NEG (NEG) MG/DL Urine Blood TRACE (NEG) Urine Nitrite NEG (NEG) Ur Leukocyte Esterase NEG (NEG) Urine RBC 1-4 (0) /HPF Urine WBC 0 (0-4) /HPF Ur Squamous Epith Cells 2+ /LPF Urine Bacteria TRACE /LPF Salicylates (15-30) mg/dL Urine Opiates Screen Not Detected (Not Detect) Urine Fentanyl Screen Not Detected (Not Detect) Acetaminophen (<30) mcg/mL Ur Barbiturates Screen Not Detected (Not Detect) Ur Phencyclidine Scrn Not Detected (Not Detect) Ur Amphetamines Screen Not Detected (Not Detect) U Benzodiazepines Scrn Not Detected (Not Detect) Urine Cocaine Screen Not Detected (Not Detect) U Marijuana (THC) Screen Not Detected (Not Detect) Ethyl Alcohol mg/dL COVID-19 ([facility]) Negative (Negative) COVID-19 Clin Com See Note 07/07/21 07/07/21 07/07/21 Range/Units 21:23 21:24 21:24 WBC 9.2 (4.8-10.8) X10*3/uL RBC 3.90 L (4.20-5.50) X10*6/uL Hgb 11.3 L (12.0-16.0) g/dl Hct 35.6 L (37.0-47.0) % MCV 91.3 (80.0-98.0) fL MCH 29.0 (27.0-33.0) pg MCHC 31.7 (31.0-35.0) g/dl RDW 13.8 (11.0-16.0) % Plt Count 260 (160-400) X10*3/uL MPV 11.4 (9.4-12.3) fL Immature Gran % (Auto) 0.8 H (0.0-0.4) % Neut % (Auto) 56.9 (45-73) % Lymph % (Auto) 33.9 (20-40) % [place] % (Auto) 7.2 (2-11) % Eos % (Auto) 1.0 (0-4) % Baso % (Auto) 0.2 (0-2) % Lymph # (Auto) 3.1 (1.2-4.9) X10*3/uL [place] # (Auto) 0.7 (0.1-1.2) X10*3/uL Eos # (Auto) 0.1 (0.0-0.4) X10*3/uL Baso # (Auto) 0.0 (0.0-0.2) X10*3/uL Abs Immat Gran (auto) 0.07 H (0.00-0.03) X10*3/uL Absolute Neuts (auto) 5.3 (2.0-8.3) x10*3/uL Absolute Nucleated RBC 0.000 (0.0-0.012) X10*3/uL Nucleated RBC % (auto) 0.0 (0.0-0.2) /100WBC Sodium 139 (135-145) mmol/L Potassium 4.0 (3.3-5.1) mmol/L Chloride 102 (96-108) mmol/L Carbon Dioxide 28 (22-29) mmol/L Anion Gap 13 (12-20) BUN 7 L (9-16) mg/dL Creatinine 0.70 (0.5-1.4) mg/dL Estim Creat Clear Calc 86.6 Estimated GFR > 60 Random Glucose 192 H (60-115) mg/dL Calcium 9.1 (8.4-10.2) mg/dL Urine Color Urine Appearance Urine pH (5.0-8.0) Ur Specific [place] (1.005-1.025) Urine Protein (NEG-TRACE) MG/DL Urine Glucose (UA) (NEG) MG/DL Urine Ketones (NEG) MG/DL Urine Blood (NEG) Urine Nitrite (NEG) Ur Leukocyte Esterase (NEG) Urine RBC (0) /HPF Urine WBC (0-4) /HPF Ur Squamous Epith Cells /LPF Urine Bacteria /LPF Salicylates < 5.0 L (15-30) mg/dL Urine Opiates Screen (Not Detect) Urine Fentanyl Screen (Not Detect) Acetaminophen < 1 (<30) mcg/mL Ur Barbiturates Screen (Not Detect) Ur Phencyclidine Scrn (Not Detect) Ur Amphetamines Screen (Not Detect) U Benzodiazepines Scrn (Not Detect) Urine Cocaine Screen (Not Detect) U Marijuana (THC) Screen (Not Detect) Ethyl Alcohol < 10 mg/dL COVID-19 ([facility]) (Negative) COVID-19 Clin Com <PATTIE Casas - Last Filed: 07/08/21 09:15> Discharge Plan Discharge Clinical Impression: Schizophrenia <Nam Bergeron MD - Last Filed: 07/08/21 07:55> Prescriptions: No Action albuterol sulfate 2.5 mg /3 mL (0.083 %) solution for nebulization 3 ml inhalation TID RF: 0 clozapine 100 mg tablet 3 tab PO BEDTIME RF: 0 clonazepam 0.5 mg tablet 1 tab PO QAM RF: 0 clonazepam 1 mg tablet 1 tab PO BEDTIME RF: 0 tramadol 50 mg tablet 1 tab PO Q6H RF: 0 lisinopril 10 mg tablet 1 tab PO QPM RF: 0 divalproex 500 mg tablet extended release 24 hr 3 tab PO BEDTIME RF: 0 omeprazole 20 mg capsule,delayed release(DR/EC) 1 cap PO BID RF: 0 montelukast 10 mg tablet 1 tab PO DAILY RF: 0 clozapine 25 mg tablet 2 tab PO QAM RF: 0 polyethylene glycol 3350 17 gram/dose powder 17 g PO DAILY RF: 0 fluoxetine 20 mg capsule 1 cap PO QAM RF: 0 Flovent HFA 110 mcg/actuation HFA aerosol inhaler 2 puff PO BID RF: 0 lactulose [Generlac] 10 gram/15 mL solution 15 ml PO DAILY PRN (Reason: Constipation) RF: 0 <Nam Bergeron MD - Last Filed: 07/08/21 07:55>
[2021-07-07] MEDS: clonazePAM 1 MG TABLET PO (22:50)
[2021-07-07] MEDS: traMADoL HCL 50 MG TABLET PO (22:51)
[2021-07-07] MEDS: cloZAPine 100 MG TABLET 300 MG PO (22:51)
[2021-07-07 22:59] VITALS: BP 126/73; PULSE 90
[2021-07-07] MEDS: lisinopriL 10 MG TABLET PO (22:59)
[2021-07-07 23:06] LABS: Acetaminophen LAB < 1 mcg/mL (<30)
[2021-07-07 23:13] LABS: Salicylate < 5.0 mg/dL (15-30)
--- NOTE | 2021-07-08 06:26 | PC.NURSE ---
Patient slept through the night, no distress observed/reported, medication compliant, independent ambulation, appetite good, behavior calm, quiet, and non-concerning, [facility] referral completed and confirmed, patient will be evaluated in the morning, VSS, will continue to monitor
--- NOTE | 2021-07-08 07:17 | PC.NURSE ---
patient appears in no distress, respirations are even and unlabored, patient appears to sleep presently.
[2021-07-08] MEDS: cloZAPine 25 MG TABLET 50 MG PO (10:18)
[2021-07-08] MEDS: Omeprazole 20 MG CAPSULE.DR PO ×2 (10:18→17:08)
[2021-07-08] MEDS: Montelukast Sodium 10 MG TABLET PO (10:18)
[2021-07-08] MEDS: Ondansetron ODT 4 MG TAB.RAPDIS TRANSLINGU (10:18)
[2021-07-08] MEDS: traMADoL HCL 50 MG TABLET PO ×3 (10:18→22:13)
[2021-07-08] MEDS: FLUoxetine HCl 20 MG CAPSULE PO (10:19)
[2021-07-08] MEDS: clonazePAM 0.5 MG TABLET PO (10:19)
[2021-07-08] MEDS: LORazepam 1 MG TABLET 2 MG PO (11:39)
--- NOTE | 2021-07-08 16:33 | PC.NURSE ---
RN to Janle[facility] buenrostro [id number]
[2021-07-08 16:43] VITALS: BP 120/70; PULSE 86; RESP 18; TEMP 36.5; O2SAT 96
[2021-07-08 17:20] VITALS: BP 141/91; PULSE 81; RESP 18; TEMP 36.1; O2SAT 96
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
--- NOTE | 2021-07-08 21:49 | PC.ADMIT ---
55 y.o. female admitted from [facility] for psychiatric evaluation at 1727. Pt has history of inpatient psychiatric admissions since 2012- [facility], [facility], [facility]. Per crisis report: Pt presented with AVH which increased in frequency and intensity with worsening SI to cut wrists with a knife. On admission Pt A&O, 10/10 depression, 9/10 anxiety, guarded with limited eye contact. 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 the voices.. the pressure and anxious . Pt reports AH commanding in nature to cut her wrists with a knife. Pt report VH of snakes in the bathroom. Pt Reports that she felt sick for 3-4 days and that her mom took her here. Pt reports recent in the family which has caused her stress. Pt reports feeling safe on the unit. PMHx Anxiety, Asthma, COPD, HLD, Morbid Obesity, Schizophrenia. Orders obtained. Pt signed CV, Pt on standard safety checks.
[2021-07-08] MEDS: Divalproex Sodium ER 500 MG TAB.ER.24H 1500 MG PO (22:13)
[2021-07-08] MEDS: cloZAPine 100 MG TABLET 300 MG PO (22:13)
[2021-07-08 22:14] VITALS: BP 138/63; PULSE 89
[2021-07-08] MEDS: lisinopriL 10 MG TABLET PO (22:14)
[2021-07-08] MEDS: clonazePAM 1 MG TABLET PO (22:14)
[2021-07-09 08:30] VITALS: BP 119/70; PULSE 76
[2021-07-09 08:40] LABS: Ammonia 59 umol/L (13-55)
[2021-07-09 08:46] LABS: Estimated Average Glucose 137 mg/dL; Hemoglobin A1c % 6.4 %
[2021-07-09] MEDS: cloZAPine 25 MG TABLET 50 MG PO (08:46)
[2021-07-09] MEDS: FLUoxetine HCl 20 MG CAPSULE PO (08:46)
[2021-07-09] MEDS: Omeprazole 20 MG CAPSULE.DR PO ×2 (08:46→18:07)
[2021-07-09] MEDS: clonazePAM 0.5 MG TABLET PO (08:46)
[2021-07-09] MEDS: Montelukast Sodium 10 MG TABLET PO (08:46)
[2021-07-09] MEDS: traMADoL HCL 50 MG TABLET PO ×3 (08:47→22:41)
[2021-07-09 08:55] LABS: Alanine Aminotransferase 42 U/L (0-31); Albumin Level 3.8 g/dL (3.5-5.0); Alkaline Phosphatase 81 U/L (39-117); Aspartate Amino Transferase 19 U/L (5-31); Bilirubin Direct < 0.2 mg/dL (0.0-0.5); Bilirubin Total 0.2 mg/dL (0.0-1.0); Cholesterol 191 mg/dL; HDL Cholesterol 38 mg/dL; LDL Cholesterol Calculated 127 mg/dl; Total Protein 6.4 g/dL (6.5-8.0); Triglycerides 131 mg/dL
[2021-07-09 09:16] LABS: Free T4 (Free Thyroxine) 0.82 ng/dL (0.71-1.85); Thyroid Stimulating Hormone 1.87 uIU/mL (0.32-4.0)
[2021-07-09 09:52] LABS: Reflex LDLD? No
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
--- NOTE | 2021-07-09 16:10 | HO.PSYCHPN ---
Subjective Subjective Date of Service: 07/09/21 Reason For Visit: Psychosis, SI Interim History: Patient seen with [employer] Patient reports that she has been depressed for the past 4 days during which time she had an increase in auditory hallucinations and started seeing snake which appear real. She started feeling suicidal as well as the voices were telling her to harm herself and she had thoughts to cut her wrists but her mother acted too fast. Patient said that she still having auditory hallucinations and is still depressed. She currently denies visual hallucinations but said earlier today in the shower she is all snakes on the floor which was scary. Patient said that she has been taking all her medications. Right now she wonders if just resting on the unit will be helpful. Patient also said that she is not supposed to take clonazepam 3 times a day but only twice a day and asked administrative underwriter to change it. Mental Status Exam Mental Status Exam Narrative: A&O. In hospital attire, overweight, short hair. Poor eye contact but at times intense stare, inattentive. No Tics or Tremors. No abnormal involuntary movements. Somewhat withdrawn but overall cooperative and able to engage. Non-pressured speech, non-spontaneous with regular rate and rhythm, normal volume and prosody. No prolonged speech latency or dysarthria. Mood is ?depressed,? affect is constricted. Denies SI/SIB/HI upon inquiry. Endorses command AH and VH. Denies delusional thought content. Thoughts are concrete, linear, appears internally preoccupied. No known cognitive or memory impairment. Insight/ Judgment impaired. Diagnostics Vital Signs (24Hr): Vital Signs - 24 hr 07/08/21 16:43 07/08/21 17:20 07/08/21 22:14 Temperature 97.7 F 96.9 F Pulse Rate 86 81 89 Respiratory Rate 18 18 Blood Pressure 120/70 141/91 H 138/63 Pulse Oximetry 96 96 07/09/21 08:30 Temperature Pulse Rate 76 Respiratory Rate Blood Pressure 119/70 Pulse Oximetry Body Mass Index 33.0 Labs Results: 07/07/21 21:23 07/07/21 21:24 Labs: Laboratory Results - last 48 hr 07/07/21 07/07/21 07/07/21 20:52 20:53 20:53 WBC RBC Hgb Hct MCV MCH MCHC RDW Plt Count MPV Immature Gran % (Auto) Neut % (Auto) Lymph % (Auto) Reeves % (Auto) Eos % (Auto) Baso % (Auto) Lymph # (Auto) Reeves # (Auto) Eos # (Auto) Baso # (Auto) Abs Immat Gran (auto) Absolute Neuts (auto) Absolute Nucleated RBC Nucleated RBC % (auto) Sodium Potassium Chloride Carbon Dioxide Anion Gap BUN Creatinine Estim Creat Clear Calc Estimated GFR Random Glucose Estimat Average Glucose Hemoglobin A1c % Calcium Total Bilirubin Direct Bilirubin AST ALT Alkaline Phosphatase Ammonia Total Protein Albumin Triglycerides Cholesterol LDL Cholesterol, Calc HDL Cholesterol TSH Free T4 Urine Color YELLOW Urine Appearance CLEAR Urine pH 6.0 Ur Specific [place] 1.015 Urine Protein NEG Urine Glucose (UA) NEG Urine Ketones NEG Urine Blood TRACE Urine Nitrite NEG Ur Leukocyte Esterase NEG Urine RBC 1-4 Urine WBC 0 Ur Squamous Epith Cells 2+ Urine Bacteria TRACE Salicylates Urine Opiates Screen Not Detected Urine Fentanyl Screen Not Detected Acetaminophen Ur Barbiturates Screen Not Detected Ur Phencyclidine Scrn Not Detected Ur Amphetamines Screen Not Detected U Benzodiazepines Scrn Not Detected Urine Cocaine Screen Not Detected U Marijuana (THC) Screen Not Detected Ethyl Alcohol COVID-19 ([facility]) Negative COVID-19 Clin Com See Note 07/07/21 07/07/21 07/07/21 21:23 21:24 21:24 WBC 9.2 RBC 3.90 L Hgb 11.3 L Hct 35.6 L MCV 91.3 MCH 29.0 MCHC 31.7 RDW 13.8 Plt Count 260 MPV 11.4 Immature Gran % (Auto) 0.8 H Neut % (Auto) 56.9 Lymph % (Auto) 33.9 Reeves % (Auto) 7.2 Eos % (Auto) 1.0 Baso % (Auto) 0.2 Lymph # (Auto) 3.1 Reeves # (Auto) 0.7 Eos # (Auto) 0.1 Baso # (Auto) 0.0 Abs Immat Gran (auto) 0.07 H Absolute Neuts (auto) 5.3 Absolute Nucleated RBC 0.000 Nucleated RBC % (auto) 0.0 Sodium 139 Potassium 4.0 Chloride 102 Carbon Dioxide 28 Anion Gap 13 BUN 7 L Creatinine 0.70 Estim Creat Clear Calc 86.6 Estimated GFR > 60 Random Glucose 192 H Estimat Average Glucose Hemoglobin A1c % Calcium 9.1 Total Bilirubin Direct Bilirubin AST ALT Alkaline Phosphatase Ammonia Total Protein Albumin Triglycerides Cholesterol LDL Cholesterol, Calc HDL Cholesterol TSH Free T4 Urine Color Urine Appearance Urine pH Ur Specific [place] Urine Protein Urine Glucose (UA) Urine Ketones Urine Blood Urine Nitrite Ur Leukocyte Esterase Urine RBC Urine WBC Ur Squamous Epith Cells Urine Bacteria Salicylates < 5.0 L Urine Opiates Screen Urine Fentanyl Screen Acetaminophen < 1 Ur Barbiturates Screen Ur Phencyclidine Scrn Ur Amphetamines Screen U Benzodiazepines Scrn Urine Cocaine Screen U Marijuana (THC) Screen Ethyl Alcohol < 10 COVID-19 ([facility]) COVID-19 [facility] Com 07/09/21 07/09/21 07/09/21 08:14 08:14 08:14 WBC RBC Hgb Hct MCV MCH MCHC RDW Plt Count MPV Immature Gran % (Auto) Neut % (Auto) Lymph % (Auto) Reeves % (Auto) Eos % (Auto) Baso % (Auto) Lymph # (Auto) Reeves # (Auto) Eos # (Auto) Baso # (Auto) Abs Immat Gran (auto) Absolute Neuts (auto) Absolute Nucleated RBC Nucleated RBC % (auto) Sodium Potassium Chloride Carbon Dioxide Anion Gap BUN Creatinine Estim Creat Clear Calc Estimated GFR Random Glucose Estimat Average Glucose 137 Hemoglobin A1c % 6.4 Calcium Total Bilirubin 0.2 Direct Bilirubin < 0.2 AST 19 D ALT 42 H Alkaline Phosphatase 81 Ammonia 59 H Total Protein 6.4 L Albumin 3.8 Triglycerides 131 Cholesterol 191 LDL Cholesterol, Calc 127 HDL Cholesterol 38 TSH 1.87 Free T4 0.82 Urine Color Urine Appearance Urine pH Ur Specific [place] Urine Protein Urine Glucose (UA) Urine Ketones Urine Blood Urine Nitrite Ur Leukocyte Esterase Urine RBC Urine WBC Ur Squamous Epith Cells Urine Bacteria Salicylates Urine Opiates Screen Urine Fentanyl Screen Acetaminophen Ur Barbiturates Screen Ur Phencyclidine Scrn Ur Amphetamines Screen U Benzodiazepines Scrn Urine Cocaine Screen U Marijuana (THC) Screen Ethyl Alcohol COVID-19 ([facility]) COVID-19 [facility]uretis Com Medications Medications Current Medications Acetaminophen (Acetaminophen 325 Mg Tablet) 650 mg PO Q6H PRN PRN Reason: Headache/Pain Mild Scale (1-3) Al Hydroxide/Mg Hydroxide (Magnesium Hydrox/Alum Hydrox 30 Ml Oral.Susp) 30 ml PO Q6H PRN PRN Reason: Heartburn/Nausea Albuterol Sulfate (Albuterol Sulfate (0.083%) 2.5 Mg/3 Ml Vial.Neb) 2.5 mg INHALE RTID LAXMI Last Admin: 11/19/21 22:21 Dose: Not Given Documented by: Clonazepam (Clonazepam 0.5 Mg Tablet) 0.5 mg PO DAILY [facility] Last Admin: 07/09/21 08:46 Dose: 0.5 mg Documented by: Clonazepam (Clonazepam 1 Mg Tablet) 1 mg PO BEDTIME [facility] Last Admin: 07/08/21 22:14 Dose: 1 mg Documented by: Clozapine (Clozapine 25 Mg Tablet) 50 mg PO DAILY [facility] Last Admin: 07/09/21 08:46 Dose: 50 mg Documented by: Clozapine (Clozapine 100 Mg Tablet) 300 mg PO BEDTIME [facility] Last Admin: 07/08/21 22:13 Dose: 300 mg Documented by: Divalproex Sodium (Divalproex Sodium Er 500 Mg Tab.Er.24h) 1,500 mg PO BEDTIME [facility] Last Admin: 07/08/21 22:13 Dose: 1,500 mg Documented by: Fluoxetine HCl (Fluoxetine Hcl 20 Mg Capsule) 20 mg PO DAILY [facility] Last Admin: 07/09/21 08:46 Dose: 20 mg Documented by: Fluticasone Propionate (Fluticasone Propionate 100 Mcg Blst.W.Dev) 2 puff INHALE RBID [facility] Last Admin: 07/08/21 22:21 Dose: Not Given Documented by: Lactulose (Lactulose 20 Gm/30 Ml Solution) 10 gm PO DAILY PRN PRN Reason: Constipation Lisinopril (Lisinopril 10 Mg Tablet) 10 mg PO BEDTIME [facility]; Protocol Last Admin: 07/08/21 22:14 Dose: 10 mg Documented by: Magnesium Hydroxide (Milk Of Magnesia 30 Ml Oral.Susp) 30 ml PO DAILY PRN PRN Reason: Constipation Montelukast Sodium (Montelukast Sodium 10 Mg Tablet) 10 mg PO DAILY [facility] Last Admin: 07/09/21 08:46 Dose: 10 mg Documented by: Nicotine Polacrilex (Nicotine Polacrilex 2 Mg Gum) 4 mg BUCCAL Q2H PRN PRN Reason: Nicotine Cravings Omeprazole (Omeprazole 20 Mg Capsule.Dr) 20 mg PO BID@0630,1630 [facility] Last Admin: 07/09/21 08:46 Dose: 20 mg Documented by: Polyethylene Glycol (Polyethylene Glycol 3350 17 Gm Powd.Pack) 17 gm PO DAILY [facility] Last Admin: 07/09/21 14:24 Dose: Not Given Documented by: Tramadol HCl (Tramadol Hcl 50 Mg Tablet) 50 mg PO Q6H LAXMI Last Admin: 07/09/21 08:47 Dose: 50 mg Documented by: Trazodone HCl (Trazodone Hcl 50 Mg Tablet) 50 mg PO BEDTIME PRN PRN Reason: Insomnia Trolamine Salicylate/Aloe Vera (Trolamine Salicylate 10%/Aloe Cream 35.4 Gm) 1 appl TOPICAL BEDTIME PRN; Protocol PRN Reason: Inflammation Last Admin: 07/08/21 22:15 Dose: 1 appl Documented by: Allergies Allergies Allergy/AdvReac Type Severity Reaction Status Date / Time diazepam [From Valium] Allergy Unknown Unknown Verified 04/22/21 20:08 haloperidol [From Haldol] Allergy Unknown Unknown Verified 04/22/21 20:08 Penicillins Allergy Unknown Unknown Verified 04/22/21 20:08 risperidone [From Risperdal] Allergy Unknown Unknown Verified 04/22/21 20:08 aspirin [Aspirin] AdvReac Intermediate Vomiting Verified 04/22/21 20:08 trazodone [TRAZODONE] AdvReac Intermediate NAUSEA & Verified 04/22/21 20:08 VOMITING Assessment & Plan Assessment & Plan (1) Schizophrenia: Status: Acute Code(s): F20.9 - Schizophrenia, unspecified Assessment and Plan: Brenna is a 55 y.o. Female who carries a dx of schizophrenia, r/o schizoaffective DO. She is presenting with worsening command AH and VH, depressed mood. She has hx of IPLOC for similar presentation. Precipitating fx includes recent of her grandmother figure. Pt is unsure if medications are helping but has been on current med regimen for some time. During last IPLOC on M[facility], pt's prozac was discontinued due to possibility of activating SE and clozapine was increased. Will obtain clozapine and VPA level. No med changes made tonight, will defer to primary team in the AM. Of note- During most recent admit to [facility], Zhao Cardenas provided collateral info that pt?s episodes of command AH tend to resolve mostly with structure and containment, has been on current med regimen for a long time. PLAN: Patient on CV Q 15 minute checks Continue home medications Ordered Clozaril level to see if patient has been taking Order Depakote level to see if patient has been taking but it was not drawn Monitor response to medications. Monitor for safety in the milieu. Discharge on stabilization. Patient seen. Chart reviewed. Discussed with team. Obtain collateral contact info?as needed I spent minutes with the patient and/or on the patient floor today, greater than?50% of which was spent counseling/coordinating care. Reason for contiued inpatient stay Substantial Risk for: rapid decompensation
[2021-07-09 18:00] VITALS: BP 112/59; PULSE 93; TEMP 35.9; O2SAT 95
[2021-07-09] MEDS: Fluticasone Propionate 100 MCG BLST.W.DEV 2 PUFF INHALE (20:47)
[2021-07-09] MEDS: clonazePAM 1 MG TABLET PO (20:53)
[2021-07-09] MEDS: cloZAPine 100 MG TABLET 300 MG PO (20:54)
[2021-07-09] MEDS: Divalproex Sodium ER 500 MG TAB.ER.24H 1500 MG PO (20:54)
[2021-07-09 21:18] VITALS: BP 110/59; PULSE 91
[2021-07-09] MEDS: lisinopriL 10 MG TABLET PO (21:18)
[2021-07-10] MEDS: polyethylene glycoL 3350 17 GM POWD.PACK PO (09:06)
[2021-07-10] MEDS: traMADoL HCL 50 MG TABLET PO ×3 (09:06→20:47)
[2021-07-10] MEDS: cloZAPine 25 MG TABLET 50 MG PO (09:07)
[2021-07-10] MEDS: FLUoxetine HCl 20 MG CAPSULE PO (09:07)
[2021-07-10] MEDS: clonazePAM 0.5 MG TABLET PO (09:07)
[2021-07-10] MEDS: Omeprazole 20 MG CAPSULE.DR PO ×2 (09:07→16:43)
[2021-07-10] MEDS: Montelukast Sodium 10 MG TABLET PO (09:08)
[2021-07-10 17:10] VITALS: BP 123/70; PULSE 104; RESP 16; TEMP 35.9; O2SAT 98
[2021-07-10] MEDS: Fluticasone Propionate 100 MCG BLST.W.DEV 2 PUFF INHALE ×2 (20:41→20:50)
[2021-07-10 20:46] VITALS: BP 123/70; PULSE 104
[2021-07-10] MEDS: lisinopriL 10 MG TABLET PO (20:46)
[2021-07-10] MEDS: clonazePAM 1 MG TABLET PO (20:48)
[2021-07-10] MEDS: Divalproex Sodium ER 500 MG TAB.ER.24H 1500 MG PO (20:48)
[2021-07-10] MEDS: cloZAPine 100 MG TABLET 300 MG PO (20:48)
--- NOTE | 2021-07-10 21:18 | P.PNPSI_ITS ---
Subjective Subjective Date of Service: 07/10/21 Reason For Visit: Psychosis, SI Interim History: pt says she's still depressed and still seeing snakes on the floor that look real; also hears intermittent AH to hurt herself; however she denies SI. Pt asks if she can go to respite after inpt admission. Mental Status Exam Mental Status Exam Narrative: A&O. In hospital attire, overweight, short hair. adequate eye contact. No Tics or Tremors. No abnormal involuntary movements. Behavior is c ooperative and able to engage. Non-pressured speech, non-spontaneous with regular rate and rhythm, normal volume and prosody. No prolonged speech latency or dysarthria. Mood is ?depressed,? affect is constricted. Denies SI/SIB/HI upon inquiry. Endorses command AH and VH. Denies delusional thought content. Thoughts are concrete, linear, appears internally preoccupied. No known cognitive or memory impairment. Insight/ Judgment impaired. Diagnostics Vital Signs (24Hr): Vital Signs - 24 hr 07/10/21 17:10 07/10/21 20:46 Temperature 96.6 F L Pulse Rate 104 H 104 H Respiratory Rate 16 Blood Pressure 123/70 123/70 Pulse Oximetry 98 Body Mass Index 33.0 Labs Results: 07/07/21 21:23 07/07/21 21:24 Labs: Laboratory Results - last 48 hr 07/09/21 07/09/21 07/09/21 08:14 08:14 08:14 Estimat Average Glucose 137 Hemoglobin A1c % 6.4 Total Bilirubin 0.2 Direct Bilirubin < 0.2 AST 19 D ALT 42 H Alkaline Phosphatase 81 Ammonia 59 H Total Protein 6.4 L Albumin 3.8 Triglycerides 131 Cholesterol 191 LDL Cholesterol, Calc 127 HDL Cholesterol 38 TSH 1.87 Free T4 0.82 Medications Medications Current Medications Acetaminophen (Acetaminophen 325 Mg Tablet) 650 mg PO Q6H PRN PRN Reason: Headache/Pain Mild Scale (1-3) Al Hydroxide/Mg Hydroxide (Magnesium Hydrox/Alum Hydrox 30 Ml Oral.Susp) 30 ml PO Q6H PRN PRN Reason: Heartburn/Nausea Albuterol Sulfate (Albuterol Sulfate (0.083%) 2.5 Mg/3 Ml Vial.Neb) 2.5 mg INHALE RTID LAXMI Last Admin: 07/10/21 20:40 Dose: Not Given Documented by: Clonazepam (Clonazepam 0.5 Mg Tablet) 0.5 mg PO DAILY [facility] Last Admin: 07/10/21 09:07 Dose: 0.5 mg Documented by: Clonazepam (Clonazepam 1 Mg Tablet) 1 mg PO BEDTIME [facility] Last Admin: 07/10/21 20:48 Dose: 1 mg Documented by: Clozapine (Clozapine 25 Mg Tablet) 50 mg PO DAILY [facility] Last Admin: 07/10/21 09:07 Dose: 50 mg Documented by: Clozapine (Clozapine 100 Mg Tablet) 300 mg PO BEDTIME [facility] Last Admin: 07/10/21 20:48 Dose: 300 mg Documented by: Divalproex Sodium (Divalproex Sodium Er 500 Mg Tab.Er.24h) 1,500 mg PO BEDTIME [facility] Last Admin: 07/10/21 20:48 Dose: 1,500 mg Documented by: Fluoxetine HCl (Fluoxetine Hcl 20 Mg Capsule) 20 mg PO DAILY [facility] Last Admin: 07/10/21 09:07 Dose: 20 mg Documented by: Fluticasone Propionate (Fluticasone Propionate 100 Mcg Blst.W.Dev) 2 puff INHALE RBID [facility] Last Admin: 07/10/21 20:50 Dose: 2 puff Documented by: Lactulose (Lactulose 20 Gm/30 Ml Solution) 10 gm PO DAILY PRN PRN Reason: Constipation Lisinopril (Lisinopril 10 Mg Tablet) 10 mg PO BEDTIME [facility]; Protocol Last Admin: 07/10/21 20:46 Dose: 10 mg Documented by: Magnesium Hydroxide (Milk Of Magnesia 30 Ml Oral.Susp) 30 ml PO DAILY PRN PRN Reason: Constipation Montelukast Sodium (Montelukast Sodium 10 Mg Tablet) 10 mg PO DAILY [facility] Last Admin: 07/10/21 09:08 Dose: 10 mg Documented by: Nicotine Polacrilex (Nicotine Polacrilex 2 Mg Gum) 4 mg BUCCAL Q2H PRN PRN Reason: Nicotine Cravings Omeprazole (Omeprazole 20 Mg Capsule.Dr) 20 mg PO BID@0630,1630 [facility] Last Admin: 07/10/21 16:43 Dose: 20 mg Documented by: Polyethylene Glycol (Polyethylene Glycol 3350 17 Gm Powd.Pack) 17 gm PO DAILY [facility] Last Admin: 07/10/21 09:06 Dose: 17 gm Documented by: Tramadol HCl (Tramadol Hcl 50 Mg Tablet) 50 mg PO Q6H LAXMI Last Admin: 07/10/21 20:47 Dose: 50 mg Documented by: Trazodone HCl (Trazodone Hcl 50 Mg Tablet) 50 mg PO BEDTIME PRN PRN Reason: Insomnia Trolamine Salicylate/Aloe Vera (Trolamine Salicylate 10%/Aloe Cream 35.4 Gm) 1 appl TOPICAL BEDTIME PRN; Protocol PRN Reason: Inflammation Last Admin: 07/09/21 21:15 Dose: 1 appl Documented by: Allergies Allergies Allergy/AdvReac Type Severity Reaction Status Date / Time diazepam [From Valium] Allergy Unknown Unknown Verified 04/22/21 20:08 haloperidol [From Haldol] Allergy Unknown Unknown Verified 04/22/21 20:08 Penicillins Allergy Unknown Unknown Verified 04/22/21 20:08 risperidone [From Risperdal] Allergy Unknown Unknown Verified 04/22/21 20:08 aspirin [Aspirin] AdvReac Intermediate Vomiting Verified 04/22/21 20:08 trazodone [TRAZODONE] AdvReac Intermediate NAUSEA & Verified 04/22/21 20:08 VOMITING Assessment & Plan Assessment & Plan (1) Schizophrenia: Status: Acute Code(s): F20.9 - Schizophrenia, unspecified Assessment and Plan: Brenna is a 55 y.o. Female who carries a dx of schizophrenia, r/o schizoaffective DO. She is presenting with worsening command AH and VH, depressed mood. She has hx of IPLOC for similar presentation. Precipitating fx includes recent of her grandmother figure. Pt is unsure if medications are helping but has been on current med regimen for some time. During last IPLOC on [facility], pt's prozac was discontinued due to possibility of activating SE and clozapine was increased. Will obtain clozapine and VPA level. No med changes made tonight, will defer to primary team in the AM. Of note- During most recent admit to [facility], Zhao Cardenas provided collateral info that pt?s episodes of command AH tend to resolve mostly with structure and containment, has been on current med regimen for a long time. Pt's outpt psychiatrist DR. Cardenas reports that patient usually stabilizes with milue therapy and structure. Will continue current regimen for now w/out changes. PLAN: Patient on CV Q 15 minute checks Continue home medications Ordered Clozaril level to see if patient has been taking Order Depakote level to see if patient has been taking but it was not drawn Monitor response to medications. Monitor for safety in the milieu. Discharge on stabilization. Patient seen. Chart reviewed. Discussed with team. Obtain collateral contact info?as needed I spent minutes with the patient and/or on the patient floor today, greater than?50% of which was spent counseling/coordinating care. Reason for contiued inpatient stay Substantial Risk for: med/psych decompensation
[2021-07-11] MEDS: diphenhydrAMINE HCL 25 MG TABLET 50 MG PO (02:34)
[2021-07-11] MEDS: traMADoL HCL 50 MG TABLET PO ×3 (05:42→21:59)
[2021-07-11] MEDS: Omeprazole 20 MG CAPSULE.DR PO ×2 (05:42→16:50)
[2021-07-11 06:00] VITALS: BP 122/81; PULSE 82; RESP 20; TEMP 36.1; O2SAT 95
[2021-07-11 08:43] LABS: Ammonia 50 umol/L (13-55)
[2021-07-11 08:57] LABS: Valproate 64.4 mcg/mL (50.0-100.0)
[2021-07-11] MEDS: FLUoxetine HCl 20 MG CAPSULE PO (09:04)
[2021-07-11] MEDS: clonazePAM 0.5 MG TABLET PO (09:04)
[2021-07-11] MEDS: polyethylene glycoL 3350 17 GM POWD.PACK PO (09:04)
[2021-07-11] MEDS: Montelukast Sodium 10 MG TABLET PO (09:04)
[2021-07-11] MEDS: cloZAPine 25 MG TABLET 50 MG PO (09:04)
--- NOTE | 2021-07-11 14:45 | HO.PSYCHPN ---
Subjective Subjective Date of Service: 07/11/21 Reason For Visit: Psychosis, SI Interim History: Patient reports that she remains depressed but feels better. She denies any SI. She continues to have auditory hallucinations telling her to hurt herself however these are also less intense. Patient did see snakes again this morning but it is only in the morning which she agrees is getting better. Patient said she took a shower today and she will push herself to be out about in the milieu. She asks again about going to about time for respite Mental Status Exam Mental Status Exam Narrative: A&O. In hospital attire, overweight, short hair. adequate eye contact. No Tics or Tremors. No abnormal involuntary movements. Behavior is cooperative and able to engage. Speech is Non-pressured and spontaneous with regular rate and rhythm, normal volume and prosody. No prolonged speech latency or dysarthria. Mood is ?a little better,? affect is constricted. Denies SI/SIB/HI upon inquiry. Endorses command AH and VH but they are less intense; Denies delusional thought content. Thoughts are concrete, linear, appears internally preoccupied. No known cognitive or memory impairment. Insight/ Judgment impaired but improving. Diagnostics Vital Signs (24Hr): Vital Signs - 24 hr 07/10/21 17:10 07/10/21 20:46 07/11/21 06:00 Temperature 96.6 F L 97.0 F Pulse Rate 104 H 104 H 82 Respiratory Rate 16 20 Blood Pressure 123/70 123/70 122/81 Pulse Oximetry 98 95 Body Mass Index 33.0 Labs Results: 07/07/21 21:23 07/07/21 21:24 Labs: Laboratory Results - last 48 hr 07/11/21 07/11/21 08:23 08:23 Ammonia 50 Valproic Acid 64.4 Medications Medications Current Medications Acetaminophen (Acetaminophen 325 Mg Tablet) 650 mg PO Q6H PRN PRN Reason: Headache/Pain Mild Scale (1-3) Al Hydroxide/Mg Hydroxide (Magnesium Hydrox/Alum Hydrox 30 Ml Oral.Susp) 30 ml PO Q6H PRN PRN Reason: Heartburn/Nausea Albuterol Sulfate (Albuterol Sulfate (0.083%) 2.5 Mg/3 Ml Vial.Neb) 2.5 mg INHALE RTID LAXMI Last Admin: 07/11/21 09:32 Dose: Not Given Documented by: Clonazepam (Clonazepam 0.5 Mg Tablet) 0.5 mg PO DAILY [facility] Last Admin: 07/11/21 09:04 Dose: 0.5 mg Documented by: Clonazepam (Clonazepam 1 Mg Tablet) 1 mg PO BEDTIME [facility] Last Admin: 07/10/21 20:48 Dose: 1 mg Documented by: Clozapine (Clozapine 25 Mg Tablet) 50 mg PO DAILY [facility] Last Admin: 07/11/21 09:04 Dose: 50 mg Documented by: Clozapine (Clozapine 100 Mg Tablet) 300 mg PO BEDTIME [facility] Last Admin: 07/10/21 20:48 Dose: 300 mg Documented by: Divalproex Sodium (Divalproex Sodium Er 500 Mg Tab.Er.24h) 1,500 mg PO BEDTIME [facility] Last Admin: 07/10/21 20:48 Dose: 1,500 mg Documented by: Fluoxetine HCl (Fluoxetine Hcl 20 Mg Capsule) 20 mg PO DAILY [facility] Last Admin: 07/11/21 09:04 Dose: 20 mg Documented by: Fluticasone Propionate (Fluticasone Propionate 100 Mcg Blst.W.Dev) 2 puff INHALE RBID [facility] Last Admin: 07/11/21 13:28 Dose: Not Given Documented by: Lactulose (Lactulose 20 Gm/30 Ml Solution) 10 gm PO DAILY PRN PRN Reason: Constipation Lisinopril (Lisinopril 10 Mg Tablet) 10 mg PO BEDTIME [facility]; Protocol Last Admin: 07/10/21 20:46 Dose: 10 mg Documented by: Magnesium Hydroxide (Milk Of Magnesia 30 Ml Oral.Susp) 30 ml PO DAILY PRN PRN Reason: Constipation Montelukast Sodium (Montelukast Sodium 10 Mg Tablet) 10 mg PO DAILY [facility] Last Admin: 07/11/21 09:04 Dose: 10 mg Documented by: Nicotine Polacrilex (Nicotine Polacrilex 2 Mg Gum) 4 mg BUCCAL Q2H PRN PRN Reason: Nicotine Cravings Omeprazole (Omeprazole 20 Mg Capsule.Dr) 20 mg PO BID@0630,1630 [facility] Last Admin: 07/11/21 05:42 Dose: 20 mg Documented by: Polyethylene Glycol (Polyethylene Glycol 3350 17 Gm Powd.Pack) 17 gm PO DAILY [facility] Last Admin: 07/11/21 09:04 Dose: 17 gm Documented by: Tramadol HCl (Tramadol Hcl 50 Mg Tablet) 50 mg PO Q6H LAXMI Last Admin: 07/11/21 05:42 Dose: 50 mg Documented by: Trazodone HCl (Trazodone Hcl 50 Mg Tablet) 50 mg PO BEDTIME PRN PRN Reason: Insomnia Trolamine Salicylate/Aloe Vera (Trolamine Salicylate 10%/Aloe Cream 35.4 Gm) 1 appl TOPICAL BEDTIME PRN; Protocol PRN Reason: Inflammation Last Admin: 07/11/21 05:46 Dose: 1 appl Documented by: Allergies Allergies Allergy/AdvReac Type Severity Reaction Status Date / Time diazepam [From Valium] Allergy Unknown Unknown Verified 04/22/21 20:08 haloperidol [From Haldol] Allergy Unknown Unknown Verified 04/22/21 20:08 Penicillins Allergy Unknown Unknown Verified 04/22/21 20:08 risperidone [From Risperdal] Allergy Unknown Unknown Verified 04/22/21 20:08 aspirin [Aspirin] AdvReac Intermediate Vomiting Verified 04/22/21 20:08 trazodone [TRAZODONE] AdvReac Intermediate NAUSEA & Verified 04/22/21 20:08 VOMITING Assessment & Plan Assessment & Plan (1) Schizophrenia: Status: Acute Code(s): F20.9 - Schizophrenia, unspecified Assessment and Plan: Brenna is a 55 y.o. Female who carries a dx of schizophrenia, r/o schizoaffective DO. She is presenting with worsening command AH and VH, depressed mood. She has hx of IPLOC for similar presentation. Precipitating fx includes recent of her grandmother figure. Pt is unsure if medications are helping but has been on current med regimen for some time. During last IPLOC on [facility], pt's prozac was discontinued due to possibility of activating SE and clozapine was increased. Will obtain clozapine and VPA level. No med changes made tonight, will defer to primary team in the AM. Of note- During most recent admit to [facility], Zhao Cardenas provided collateral info that pt?s episodes of command AH tend to resolve mostly with structure and containment, has been on current med regimen for a long time. Pt's outpt psychiatrist DR. Cardenas reports that patient usually stabilizes with milue therapy and structure. Will continue current regimen for now w/out changes. Patient seems to be slowly stabilizing will continue current medication regimen PLAN: Patient on CV Q 15 minute checks Continue home medications Ordered Clozaril level to see if patient has been taking Order Depakote level to see if patient has been taking but it was not drawn Monitor response to medications. Monitor for safety in the milieu. Discharge on stabilization. Patient seen. Chart reviewed. Discussed with team. Obtain collateral contact info?as needed I spent minutes with the patient and/or on the patient floor today, greater than?50% of which was spent counseling/coordinating care. Reason for contiued inpatient stay Substantial Risk for: med/psych decompensation
[2021-07-11] MEDS: Divalproex Sodium ER 500 MG TAB.ER.24H 1500 MG PO (21:41)
[2021-07-11] MEDS: Fluticasone Propionate 100 MCG BLST.W.DEV 2 PUFF INHALE (21:41)
[2021-07-11 21:42] VITALS: BP 102/60; PULSE 102
[2021-07-11] MEDS: lisinopriL 10 MG TABLET PO (21:42)
[2021-07-11] MEDS: clonazePAM 1 MG TABLET PO (21:42)
[2021-07-11] MEDS: cloZAPine 100 MG TABLET 300 MG PO (21:42)
[2021-07-11 21:45] VITALS: BP 102/60; PULSE 95; TEMP 36.1; O2SAT 95
[2021-07-12 06:00] VITALS: PULSE 94; RESP 18; TEMP 36.1; O2SAT 95
[2021-07-12] MEDS: Omeprazole 20 MG CAPSULE.DR PO ×2 (06:07→17:03)
[2021-07-12] MEDS: Fluticasone Propionate 100 MCG BLST.W.DEV 2 PUFF INHALE ×2 (08:10→22:00)
[2021-07-12] MEDS: polyethylene glycoL 3350 17 GM POWD.PACK PO (08:10)
[2021-07-12] MEDS: Montelukast Sodium 10 MG TABLET PO (08:11)
[2021-07-12] MEDS: clonazePAM 0.5 MG TABLET PO (08:11)
[2021-07-12] MEDS: cloZAPine 25 MG TABLET 50 MG PO (08:11)
[2021-07-12] MEDS: FLUoxetine HCl 20 MG CAPSULE PO (08:11)
--- NOTE | 2021-07-12 11:39 | P.PNPSI_ITS ---
Subjective Subjective Date of Service: 07/12/21 Reason For Visit: Psychosis, SI Interim History: Patient feels like she has improved a little bit but she continues to be depressed. Auditory hallucinations are still bothering her as a director to self-harm. She denies any SI but feels that this is not her baseline. Patient has not seen any visual hallucinations today which is progress. Pig Machine Operator discussed medications and patient wants to keep them at current doses. She feels that a few more days will help her and worries that if she returns to soon she will likely again become suicidal. Patient's foster mother feels that patient's AVH need to continue to lessened in intensity, also fearing that otherwise patient will get become suicidal. Mental Status Exam Mental Status Exam Narrative: Pt is alert and oriented; behavior is cooperative and calm; patient is not in d istress; dressed in casual attire with adequate hygiene; mood is described as depressed and affect congruent, intense; eye contact appropriate; Speech is normal rate, volume and prosody and not pressured; psychomotor retardation is present; thought process is organized and goal directed but concrete; Thought content is AVH which she finds scary as AH are command; She denies any SI /HI. Patients insight and judgment are impaired, though improving. Diagnostics Vital Signs (24Hr): Vital Signs - 24 hr 07/11/21 21:42 07/11/21 21:45 07/12/21 06:00 Temperature 96.9 F 97.0 F Pulse Rate 102 H 95 94 Respiratory Rate 18 Blood Pressure 102/60 102/60 Pulse Oximetry 95 95 Body Mass Index 33.0 Labs Results: 07/07/21 21:23 07/07/21 21:24 Labs: Laboratory Results - last 48 hr 07/11/21 07/11/21 08:23 08:23 Ammonia 50 Valproic Acid 64.4 Medications Medications Current Medications Acetaminophen (Acetaminophen 325 Mg Tablet) 650 mg PO Q6H PRN PRN Reason: Headache/Pain Mild Scale (1-3) Al Hydroxide/Mg Hydroxide (Magnesium Hydrox/Alum Hydrox 30 Ml Oral.Susp) 30 ml PO Q6H PRN PRN Reason: Heartburn/Nausea Albuterol Sulfate (Albuterol Sulfate (0.083%) 2.5 Mg/3 Ml Vial.Neb) 2.5 mg INHALE RTID LAXMI Last Admin: 07/11/21 20:25 Dose: Not Given Documented by: Clonazepam (Clonazepam 0.5 Mg Tablet) 0.5 mg PO DAILY [facility] Last Admin: 07/12/21 08:11 Dose: 0.5 mg Documented by: Clonazepam (Clonazepam 1 Mg Tablet) 1 mg PO BEDTIME [facility] Last Admin: 07/11/21 21:42 Dose: 1 mg Documented by: Clozapine (Clozapine 25 Mg Tablet) 50 mg PO DAILY [facility] Last Admin: 07/12/21 08:11 Dose: 50 mg Documented by: Clozapine (Clozapine 100 Mg Tablet) 300 mg PO BEDTIME [facility] Last Admin: 07/11/21 21:42 Dose: 300 mg Documented by: Divalproex Sodium (Divalproex Sodium Er 500 Mg Tab.Er.24h) 1,500 mg PO BEDTIME [facility] Last Admin: 07/11/21 21:41 Dose: 1,500 mg Documented by: Fluoxetine HCl (Fluoxetine Hcl 20 Mg Capsule) 20 mg PO DAILY [facility] Last Admin: 07/12/21 08:11 Dose: 20 mg Documented by: Fluticasone Propionate (Fluticasone Propionate 100 Mcg Blst.W.Dev) 2 puff INHALE RBID [facility] Last Admin: 07/12/21 08:10 Dose: 2 puff Documented by: Lactulose (Lactulose 20 Gm/30 Ml Solution) 10 gm PO DAILY PRN PRN Reason: Constipation Lisinopril (Lisinopril 10 Mg Tablet) 10 mg PO BEDTIME [facility]; Protocol Last Admin: 07/11/21 21:42 Dose: 10 mg Documented by: Magnesium Hydroxide (Milk Of Magnesia 30 Ml Oral.Susp) 30 ml PO DAILY PRN PRN Reason: Constipation Montelukast Sodium (Montelukast Sodium 10 Mg Tablet) 10 mg PO DAILY [facility] Last Admin: 07/12/21 08:11 Dose: 10 mg Documented by: Nicotine Polacrilex (Nicotine Polacrilex 2 Mg Gum) 4 mg BUCCAL Q2H PRN PRN Reason: Nicotine Cravings Omeprazole (Omeprazole 20 Mg Capsule.Dr) 20 mg PO BID@0630,1630 [facility] Last Admin: 07/12/21 06:07 Dose: 20 mg Documented by: Polyethylene Glycol (Polyethylene Glycol 3350 17 Gm Powd.Pack) 17 gm PO DAILY [facility] Last Admin: 07/12/21 08:10 Dose: 17 gm Documented by: Tramadol HCl (Tramadol Hcl 50 Mg Tablet) 50 mg PO Q6H PRN PRN Reason: mod-severe pain Last Admin: 07/11/21 21:59 Dose: 50 mg Documented by: Trazodone HCl (Trazodone Hcl 50 Mg Tablet) 50 mg PO BEDTIME PRN PRN Reason: Insomnia Trolamine Salicylate/Aloe Vera (Trolamine Salicylate 10%/Aloe Cream 35.4 Gm) 1 appl TOPICAL BEDTIME PRN; Protocol PRN Reason: Inflammation Last Admin: 07/11/21 05:46 Dose: 1 appl Documented by: Allergies Allergies Allergy/AdvReac Type Severity Reaction Status Date / Time diazepam [From Valium] Allergy Unknown Unknown Verified 04/22/21 20:08 haloperidol [From Haldol] Allergy Unknown Unknown Verified 04/22/21 20:08 Penicillins Allergy Unknown Unknown Verified 04/22/21 20:08 risperidone [From Risperdal] Allergy Unknown Unknown Verified 04/22/21 20:08 aspirin [Aspirin] AdvReac Intermediate Vomiting Verified 04/22/21 20:08 trazodone [TRAZODONE] AdvReac Intermediate NAUSEA & Verified 04/22/21 20:08 VOMITING Assessment & Plan Assessment & Plan (1) Schizophrenia: Status: Acute Code(s): F20.9 - Schizophrenia, unspecified Assessment and Plan: Brenna is a 55 y.o. Female who carries a dx of schizophrenia, r/o schizoaffective DO. She is presenting with worsening command AH and VH, depressed mood. She has hx of IPLOC for similar presentation. Precipitating fx includes recent of her grandmother figure. Pt is unsure if medications are helping but has been on current med regimen for some time. During last IPLOC on [facility], pt's prozac was discontinued due to possibility of activating SE and clozapine was increased. Will obtain clozapine and VPA level. No med changes made tonight, will defer to primary team in the AM. Of note- During most recent admit to [facility], Zhao Cardenas provided collateral info that pt?s episodes of command AH tend to resolve mostly with structure and containment, has been on current med regimen for a long time. Pt's outpt psychiatrist DR. Cardenas reports that patient usually stabilizes with milue therapy and structure. Will continue current regimen for now w/out changes. Patient seems to be slowly stabilizing however she continues to have intrusive auditory hallucinations commanding her to self-harm (visual hallucinations seem to be subsiding). To reduce the risk of side effects it is preferable to see if patient can further improve without increasing her Clozaril dose. Concern is that if patient discharges to soon, she will soon begin again become suicidal. Will keep patient on the unit for another few days. Respite bed is likely available next week. PLAN: Patient on CV Q 15 minute checks Continue home medications Ordered Clozaril level to see if patient has been taking Order Depakote level to see if patient has been taking but it was not drawn Monitor response to medications. Monitor for safety in the milieu. Discharge on stabilization. Patient seen. Chart reviewed. Discussed with team. Obtain collateral contact info?as needed I spent minutes with the patient and/or on the patient floor today, greater than?50% of which was spent counseling/coordinating care. Reason for contiued inpatient stay Substantial Risk for: rapid decompensation
[2021-07-12] MEDS: traMADoL HCL 50 MG TABLET PO (17:10)
--- NOTE | 2021-07-12 17:25 | P.DS_ITS ---
DS: Providers Provider Date of Service: 07/13/21 Date of admission: 07/08/21 17:03 Date of discharge: 07/13/21 Primary care physician: Brenna Brower MD Attending physician on admission: Anthony Clements Attending physician on discharge: Modesta Xiong DS: Diagnosis Discharge Diagnosis (1) Schizophrenia: Status: Chronic DS: Medications Discharge Medications Home Medications: Home Medications Medication Instructions Recorded Confirmed lactulose 10 gram/15 mL oral 15 ml PO DAILY PRN 07/07/21 07/07/21 solution (Generlac) Previous Rx's Medication Instructions Recorded albuterol sulfate 2.5 mg (3 mL) INHALATION TID 30 07/12/21 Days #270 ml clonazepam 1 mg tablet See Rx Instructions .ROUTE 07/12/21 .COMPLEX #45 tab clozapine 100 mg tablet 300 mg PO BEDTIME 30 Days #90 tab 07/12/21 clozapine 25 mg tablet 50 mg PO QAM 30 Days #60 tab 07/12/21 divalproex 500 mg tablet,extended 1,500 mg PO BEDTIME 30 Days #90 tab 07/12/21 release 24 hr fluoxetine 20 mg capsule 20 mg PO QAM 30 Days #30 cap 07/12/21 fluticasone propionate 110 2 puff PO BID 30 Days #12 g 07/12/21 mcg/actuation HFA aerosol inhaler (Flovent HFA) lisinopril 10 mg tablet 10 mg PO QPM 30 Days #30 tab 07/12/21 montelukast 10 mg tablet 10 mg PO DAILY 30 Days #30 tab 07/12/21 omeprazole 20 mg capsule,delayed 20 mg PO BID 30 Days #60 cap 07/12/21 release polyethylene glycol 3350 17 17 g PO DAILY 30 Days #510 g 07/12/21 gram/dose oral powder tramadol 50 mg tablet 50 mg PO Q6H 30 Days #7 tab 07/12/21 trolamine salicylate-aloe vera 10 1 appl TOPICAL BEDTIME PRN 30 Days 07/12/21 % topical cream (Aspercreme with #35.4 g Aloe) Mental Status Exam Mental Status Exam Narrative: Pt is alert and oriented; behavior is cooperative and calm; patient is not in distress; dressed in casual attire with adequate hygiene; mood is described as depressed and affect congruent, but brighter; eye contact appropriate; Speech is normal rate, volume and prosody and not pressured; thought process is organized and goal directed but concrete;? Thought content is on discharge; talks about AVH but says less intense and she's able to cope; denies any SI /HI.? Patients insight and judgment are impaired, though adequate and at baseline. Data Data Completed and Pending Completed studies during hospitalization [Text1]: 07/07/21 07/07/21 07/07/21 20:52 20:53 20:53 WBC RBC Hgb Hct MCV MCH MCHC RDW Plt Count MPV Immature Gran % (Auto) Neut % (Auto) Lymph % (Auto) Haskell % (Auto) Eos % (Auto) Baso % (Auto) Lymph # (Auto) Haskell # (Auto) Eos # (Auto) Baso # (Auto) Abs Immat Gran (auto) Absolute Neuts (auto) Absolute Nucleated RBC Nucleated RBC % (auto) Sodium Potassium Chloride Carbon Dioxide Anion Gap BUN Creatinine Estim Creat Clear Calc Estimated GFR Random Glucose Estimat Average Glucose Hemoglobin A1c % Calcium Total Bilirubin Direct Bilirubin AST ALT Alkaline Phosphatase Ammonia Total Protein Albumin Triglycerides Cholesterol LDL Cholesterol, Calc HDL Cholesterol TSH Free T4 Urine Color YELLOW Urine Appearance CLEAR Urine pH 6.0 Ur Specific [place]hall 1.015 Urine Protein NEG Urine Glucose (UA) NEG Urine Ketones NEG Urine Blood TRACE Urine Nitrite NEG Ur Leukocyte Esterase NEG Urine RBC 1-4 Urine WBC 0 Ur Squamous Epith Cells 2+ Urine Bacteria TRACE Salicylates Urine Opiates Screen Not Detected Urine Fentanyl Screen Not Detected Acetaminophen Ur Barbiturates Screen Not Detected Valproic Acid Ur Phencyclidine Scrn Not Detected Clozapine Norclozapine Ur Amphetamines Screen Not Detected U Benzodiazepines Scrn Not Detected Urine Cocaine Screen Not Detected U Marijuana (THC) Screen Not Detected Ethyl Alcohol COVID-19 ([facility]) Negative COVID-19 Clin Com See Note 07/07/21 07/07/21 07/07/21 21:23 21:24 21:24 WBC 9.2 RBC 3.90 L Hgb 11.3 L Hct 35.6 L MCV 91.3 MCH 29.0 MCHC 31.7 RDW 13.8 Plt Count 260 MPV 11.4 Immature Gran % (Auto) 0.8 H Neut % (Auto) 56.9 Lymph % (Auto) 33.9 Haskell % (Auto) 7.2 Eos % (Auto) 1.0 Baso % (Auto) 0.2 Lymph # (Auto) 3.1 Haskell # (Auto) 0.7 Eos # (Auto) 0.1 Baso # (Auto) 0.0 Abs Immat Gran (auto) 0.07 H Absolute Neuts (auto) 5.3 Absolute Nucleated RBC 0.000 Nucleated RBC % (auto) 0.0 Sodium 139 Potassium 4.0 Chloride 102 Carbon Dioxide 28 Anion Gap 13 BUN 7 L Creatinine 0.70 Estim Creat Clear Calc 86.6 Estimated GFR > 60 Random Glucose 192 H Estimat Average Glucose Hemoglobin A1c % Calcium 9.1 Total Bilirubin Direct Bilirubin AST ALT Alkaline Phosphatase Ammonia Total Protein Albumin Triglycerides Cholesterol LDL Cholesterol, Calc HDL Cholesterol TSH Free T4 Urine Color Urine Appearance Urine pH Ur Specific Newhall Urine Protein Urine Glucose (UA) Urine Ketones Urine Blood Urine Nitrite Ur Leukocyte Esterase Urine RBC Urine WBC Ur Squamous Epith Cells Urine Bacteria Salicylates < 5.0 L Urine Opiates Screen Urine Fentanyl Screen Acetaminophen < 1 Ur Barbiturates Screen Valproic Acid Ur Phencyclidine Scrn Clozapine Norclozapine Ur Amphetamines Screen U Benzodiazepines Scrn Urine Cocaine Screen U Marijuana (THC) Screen Ethyl Alcohol < 10 COVID-19 ([facility]) COVID-19 Clin Com 07/09/21 07/09/21 07/09/21 08:14 08:14 08:14 WBC RBC Hgb Hct MCV MCH MCHC RDW Plt Count MPV Immature Gran % (Auto) Neut % (Auto) Lymph % (Auto) Haskell % (Auto) Eos % (Auto) Baso % (Auto) Lymph # (Auto) Haskell # (Auto) Eos # (Auto) Baso # (Auto) Abs Immat Gran (auto) Absolute Neuts (auto) Absolute Nucleated RBC Nucleated RBC % (auto) Sodium Potassium Chloride Carbon Dioxide Anion Gap BUN Creatinine Estim Creat Clear Calc Estimated GFR Random Glucose Estimat Average Glucose 137 Hemoglobin A1c % 6.4 Calcium Total Bilirubin 0.2 Direct Bilirubin < 0.2 AST 19 D ALT 42 H Alkaline Phosphatase 81 Ammonia Total Protein 6.4 L Albumin 3.8 Triglycerides 131 Cholesterol 191 LDL Cholesterol, Calc 127 HDL Cholesterol 38 TSH 1.87 Free T4 0.82 Urine Color Urine Appearance Urine pH Ur Specific Newhall Urine Protein Urine Glucose (UA) Urine Ketones Urine Blood Urine Nitrite Ur Leukocyte Esterase Urine RBC Urine WBC Ur Squamous Epith Cells Urine Bacteria Salicylates Urine Opiates Screen Urine Fentanyl Screen Acetaminophen Ur Barbiturates Screen Valproic Acid Ur Phencyclidine Scrn Clozapine Pending Norclozapine Pending Ur Amphetamines Screen U Benzodiazepines Scrn Urine Cocaine Screen U Marijuana (THC) Screen Ethyl Alcohol COVID-19 ([facility]) COVID-19 Clin Com 07/09/21 07/11/21 07/11/21 08:14 08:23 08:23 WBC RBC Hgb Hct MCV MCH MCHC RDW Plt Count MPV Immature Gran % (Auto) Neut % (Auto) Lymph % (Auto) Haskell % (Auto) Eos % (Auto) Baso % (Auto) Lymph # (Auto) Haskell # (Auto) Eos # (Auto) Baso # (Auto) Abs Immat Gran (auto) Absolute Neuts (auto) Absolute Nucleated RBC Nucleated RBC % (auto) Sodium Potassium Chloride Carbon Dioxide Anion Gap BUN Creatinine Estim Creat Clear Calc Estimated GFR Random Glucose Estimat Average Glucose Hemoglobin A1c % Calcium Total Bilirubin Direct Bilirubin AST ALT Alkaline Phosphatase Ammonia 59 H 50 Total Protein Albumin Triglycerides Cholesterol LDL Cholesterol, Calc HDL Cholesterol TSH Free T4 Urine Color Urine Appearance Urine pH Ur Specific Newhall Urine Protein Urine Glucose (UA) Urine Ketones Urine Blood Urine Nitrite Ur Leukocyte Esterase Urine RBC Urine WBC Ur Squamous Epith Cells Urine Bacteria Salicylates Urine Opiates Screen Urine Fentanyl Screen Acetaminophen Ur Barbiturates Screen Valproic Acid 64.4 Ur Phencyclidine Scrn Clozapine Norclozapine Ur Amphetamines Screen U Benzodiazepines Scrn Urine Cocaine Screen U Marijuana (THC) Screen Ethyl Alcohol COVID-19 ([facility]) COVID-19 Clin Com DS: Summary Hospital Course Hospital Course: Brenna is a 55 y.o. Female who carries a dx of schizophrenia, r/o schizoaffective DO. She is presenting with worsening command AH and VH, depressed mood. She has hx of IPLOC for similar presentation. Precipitating fx includes recent of her grandmother figure. Pt is unsure if medications are helping but has been on current med regimen for some time. During last IPLOC on [facility], pt's prozac was discontinued due to possibility of activating SE and clozapine was increased. During most recent admit to [facility], Zhao Cardenas provided collateral info that pt?s episodes of command AH tend to resolve mostly with structure and containment, has been on current med regimen for a long time. VPA level: WNL clozapine Level: WNL Patient reported depression on admission however SI a had resolved. Patient did not want any medication changes at all and just wanted to rest which she did. She continued to have auditory hallucinations telling her to self-harm and intermittent visual hallucinations of seeing snakes however both of these began to subside with therapeutic environment and were no longer upsetting to her. Patient's affect brightened, she became more outgoing, showering, attending to ADLs and was a little more visible in the milieu. Patient asked to be discharged to respite. She said she had no thoughts of hurting herself and felt safe and did not need a locked unit. However she did not feel quite ready to go home and thus wanted to rest for few more days specifically at [facility]. Patient had returned to baseline and was discharging to respite, a safe and therapeutic environment, after which she will be returning home where she lives with her foster mother who is supportive. Patient denied any SI. She was not in imminent risk for harm to self or others and her request for discharge honored. . Time spent discussing smoking cessation with patient: 3 to 10 minutes Status at Discharge Functional status at discharge: independent ambulation Overall status at discharge: patient is progressing back to baseline Time Spent with Patient Time attestation: Total time spent providing and/or coordinating discharge services: Discharge Plan Discharge Patient Disposition: Xfer to Respite Facility Discharge Diagnosis: Schizophrenia, paranoid type Referrals: Zhao Cardenas [Other] - 07/20/21 9:00 am (Outpatient follow-up appointment with psychiatric medication provider. Appointment in office in [place].) [facility] [Other] - 1 Week (Therapy referral following discharge from [facility] to email coil winding supervisor's to have new therapist assigned to patient. [facility] to call foster mother and inform of scheduled appointment with outpatient clinician.) Brenna Liriano MD [Primary Care Provider] - 08/04/21 1:30 pm (tele-viste ) Discharge Medications: New Aspercreme with Aloe 10 % Cream 1 appl topical BEDTIME PRN (Reason: Inflammation) 30 Days Qty: 35.4 RF: 0 Continued lactulose [Generlac] 10 gram/15 mL solution 15 ml PO DAILY PRN (Reason: Constipation) RF: 0 polyethylene glycol 3350 17 gram/dose powder 17 g PO DAILY 30 Days Qty: 510 RF: 0 Flovent HFA 110 mcg/actuation HFA aerosol inhaler 2 puff PO BID 30 Days Qty: 12 RF: 0 Changed albuterol sulfate 2.5 mg /3 mL (0.083 %) solution for nebulization 2.5 mg inhalation TID 30 Days Qty: 270 RF: 0 clozapine 100 mg tablet 300 mg PO BEDTIME 30 Days Qty: 90 RF: 0 clonazepam 1 mg tablet See Rx Instructions .ROUTE .COMPLEX Qty: 45 RF: 0 tramadol 50 mg tablet 50 mg PO Q6H 30 Days Qty: 7 RF: 0 lisinopril 10 mg tablet 10 mg PO QPM 30 Days Qty: 30 RF: 0 divalproex 500 mg tablet extended release 24 hr 1,500 mg PO BEDTIME 30 Days Qty: 90 RF: 0 omeprazole 20 mg capsule,delayed release(DR/EC) 20 mg PO BID 30 Days Qty: 60 RF: 0 montelukast 10 mg tablet 10 mg PO DAILY 30 Days Qty: 30 RF: 0 clozapine 25 mg tablet 50 mg PO QAM 30 Days Qty: 60 RF: 0 fluoxetine 20 mg capsule 20 mg PO QAM 30 Days Qty: 30 RF: 0 Discontinued clonazepam 0.5 mg tablet 1 tab PO QAM RF: 0 Discharge Orders: Discharge Order (Routine); Ordered 07/13/21 Ordered By: Anthony Clements Diet: regular diet Activity on Discharge: As tolerated Stand Alone Forms: Patient Portal Discharge page, Community Support Care Plan Goals: Maintain mood and safe behaviors Take medications as prescribed Practice coping skills Continue with outpatient providers and reach out to them as needed Health Concerns: Mood stability and behaviors Plan of Treatment: Follow up with your PCP, psychiatric provider and other outpatient providers regarding above concerns Take medications as prescribed Assessment: Risk assessment at time of discharge:? Patient was interviewed prior to discharge and found to be fully oriented and without any SI or HI. Patient has insight and demonstrates good judgment in terms of wanting to pursue treatment. Patient is not in imminent risk of harm to self or others and has a safety plan that includes presenting to the closest ER or calling 911 if feeling unsafe.? Patient has been observed closely by nursing and unit staff throughout admission; patient has not engaged in any behaviors that suggest dangerousness to self or others and has demonstrated appropriate behaviors and impulse control Discharge Date/Time: 07/13/21 13:33
[2021-07-12] MEDS: Divalproex Sodium ER 500 MG TAB.ER.24H 1500 MG PO (21:58)
[2021-07-12] MEDS: clonazePAM 1 MG TABLET PO (21:58)
[2021-07-12] MEDS: cloZAPine 100 MG TABLET 300 MG PO (21:59)
[2021-07-12 22:00] VITALS: BP 172/92; PULSE 94; TEMP 36.2; O2SAT 95
[2021-07-12 22:11] VITALS: BP 172/92; PULSE 99
[2021-07-12] MEDS: lisinopriL 10 MG TABLET PO (22:11)
[2021-07-12] MEDS: Lactulose 20 GM/30 ML SOLUTION 10 GM PO (22:15)
[2021-07-13 00:04] VITALS: BP 112/62; PULSE 94
[2021-07-13] MEDS: traMADoL HCL 50 MG TABLET PO (00:07)
[2021-07-13] MEDS: clonazePAM 0.5 MG TABLET PO (09:03)
[2021-07-13] MEDS: Montelukast Sodium 10 MG TABLET PO (09:03)
[2021-07-13] MEDS: cloZAPine 25 MG TABLET 50 MG PO (09:03)
[2021-07-13] MEDS: Omeprazole 20 MG CAPSULE.DR PO (09:03)
[2021-07-13] MEDS: FLUoxetine HCl 20 MG CAPSULE PO (09:03)
[2021-07-13] MEDS: Fluticasone Propionate 100 MCG BLST.W.DEV 2 PUFF INHALE (09:08)
[2021-07-13 11:26] LABS: Clozapine (Clozaril) 744 mcg/L; Norclozapine 170 mcg/L (25-400)
[2021-07-13 12:00] LABS: COVID-19 Test Negative (Negative); IDNOW Serial# 9DD0AD1C
== END 2021-07-13 13:33 | DRG 750 ==
LOC: HO.ED 21:58 → HO.PM5 07-08 17:07
PROVIDERS: Emergency Medicine; Social Worker; Admitting Provider Psychiatry & Neurology Psychiatry; Emergency Provider Emergency Medicine; PCP Internal Medicine; Visit Provider Psychiatry & Neurology Psychiatry
DX: F20.0 Paranoid schizophrenia (principal); R45.851 Suicidal ideations; F17.210 Nicotine dependence, cigarettes, uncomplicated; Z71.6 Tobacco abuse counseling; Z88.0 Allergy status to penicillin; Z88.6 Allergy status to analgesic agent; Z23 Encounter for immunization
CPT/HCPCS: 36415; 80048; 80061; 80076; 80143; 80159; 80164; 80179; 80307; 81001; 82077; 82140; 83036; 84439; 84443; 85025; 87635; 90686; 99285; Q0163

== ENCOUNTER 2021-08-03 10:09 | Outpatient (REF) | payer MEDICAID, SELFPAY | END 2021-08-03 10:10 | disposition home or self-care (01) | LOC: HO.LAB 10:09 | PROVIDERS: Visit Provider Internal Medicine | DX: Z20.822 Contact with and (suspected) exposure to COVID-19 (principal) | CPT/HCPCS: C9803; U0003; U0005 ==

== ENCOUNTER 2021-08-10 18:45 | Inpatient (IN) | payer MEDICAID, SELFPAY ==
--- NOTE | ~2021-08-10 | XR_ITS ---
EXAMINATION: XR CHEST CLINICAL INFORMATION: Dyspnea COMPARISON: Chest x-ray on 12/05/2020 TECHNIQUE: Frontal view of the chest was obtained. FINDINGS: The cardiac silhouette is normal. There is mild diffuse bronchial wall thickening. There are no areas of consolidation. There are no pleural effusions or pneumothoraces. The bones and soft tissues are unremarkable for the patient's age. XR/XR chest 1V IMPRESSION: Bronchial wall thickening may be infectious and/or inflammatory in etiology.
--- NOTE | ~2021-08-10 | XR_ITS ---
EXAMINATION: XR ABDOMEN KUB CLINICAL INDICATION: Abdominal discomfort. Covid 19. COMPARISON: 02/17/2021 TECHNIQUE: AP view of the abdomen. FINDINGS: Nonobstructive bowel gas pattern. No dilated loops of bowel. Gas and stool throughout the colon with no significant abnormal colonic stool burden. Mild degenerative changes of the spine. The lung bases are not well evaluated. XR/XR KUB IMPRESSION: Normal bowel gas pattern.
[2021-08-10 19:58] VITALS: BP 135/73; PULSE 103; RESP 22; TEMP 36.7; O2SAT 91; BMI 36.1
--- NOTE | 2021-08-10 20:05 | ECG_ITS ---
Test Reason : DIZZINESS Blood Pressure : / mmHG Vent. Rate : 097 BPM Atrial Rate : 097 BPM P-R Int : 120 ms QRS Dur : 076 ms QT Int : 364 ms P-R-T Axes : 055 034 005 degrees QTc Int : 462 ms Normal sinus rhythm Nonspecific ST abnormality Borderline ECG When compared with ECG of 22-APR-2021 19:56, No significant change was found Referred By: Generic ED Physician Electronically Signed By:CECELIA MCDONALD
[2021-08-10 20:46] LABS: Basophils Percent Auto 0.1 % (0-2); Eosinophils Absolute Auto 0.2 X10*3/uL (0.0-0.4); Eosinophils Percent Auto 2.2 % (0-4); Hematocrit 34.2 % (37.0-47.0); Hemoglobin 10.9 g/dl (12.0-16.0); Imm Gran Abs Auto 0.15 X10*3/uL (0.00-0.03); Lymphocytes Absolute Auto 2.2 X10*3/uL (1.2-4.9); Lymphocytes Percent Auto 29.6 % (20-40); MANUAL DIFF FLAG SCAN; Mean Corpuscular HGB Conc 31.9 g/dl (31.0-35.0); Monocytes Absolute Auto 0.7 X10*3/uL (0.1-1.2); Monocytes Percent Auto 9.1 % (2-11); NRBC Pct Auto 0.7 /100WBC (0.0-0.2); Neutrophils Absolute Auto 4.3 x10*3/uL (2.0-8.3); Platelet Count 273 X10*3/uL (160-400); Red Blood Count 3.76 X10*6/uL (4.20-5.50); Red Cell Distribution Width 14.4 % (11.0-16.0); SCAN SMEAR FLAG 1; White Blood Count 7.6 X10*3/uL (4.8-10.8)
[2021-08-10 20:54] LABS: COVID-19 Test Positive (Negative)
[2021-08-10 21:02] LABS: Anion Gap 17 (12-20); Blood Urea Nitrogen 10 mg/dL (9-16); Chloride 96 mmol/L (96-108); Estimated Glomerular Filt Rate > 60; Potassium 3.7 mmol/L (3.3-5.1)
[2021-08-10 21:11] LABS: SLIDE REVIEW VERIFIED
--- NOTE | 2021-08-10 21:23 | ED.GENADULT ---
HPI - General Adult General Chief complaint: General Medical Stated complaint: dizzy Time Seen by Provider: 08/10/21 21:22 Source: patient and hourly sign language interpreter History of Present Illness HPI narrative: 55-year-old female presents with complaints of persistent body aches, shortness of breath, cough, feelings of fatigue that have not improved since her diagnosis of COVID-19 on 08/03. Patient states that she has been persistently nauseous, has had complete loss of taste and has had decreased oral intake and reports subjective fevers with chills but otherwise denies diarrhea or urinary symptoms. Related Data Home Medications Medication Instructions Recorded Confirmed lactulose 10 gram/15 mL oral 15 ml PO DAILY PRN 07/07/21 08/10/21 solution (Generlac) Previous Rx's Medication Instructions Recorded albuterol sulfate 2.5 mg (3 mL) INHALATION TID 30 07/12/21 Days #270 ml clozapine 100 mg tablet 300 mg PO BEDTIME 30 Days #90 tab 07/12/21 clozapine 25 mg tablet 50 mg PO QAM 30 Days #60 tab 07/12/21 divalproex 500 mg tablet,extended 1,500 mg PO BEDTIME 30 Days #90 tab 07/12/21 release 24 hr fluoxetine 20 mg capsule 20 mg PO QAM 30 Days #30 cap 07/12/21 fluticasone propionate 110 2 puff PO BID 30 Days #12 g 07/12/21 mcg/actuation HFA aerosol inhaler (Flovent HFA) lisinopril 10 mg tablet 10 mg PO QPM 30 Days #30 tab 07/12/21 montelukast 10 mg tablet 10 mg PO DAILY 30 Days #30 tab 07/12/21 omeprazole 20 mg capsule,delayed 20 mg PO BID 30 Days #60 cap 07/12/21 release tramadol 50 mg tablet 50 mg PO Q6H 30 Days #7 tab 07/12/21 polyethylene glycol 3350 17 17 g PO DAILY 30 Days #510 g 07/29/21 gram/dose oral powder Allergies Allergy/AdvReac Type Severity Reaction Status Date / Time diazepam [From Valium] Allergy Unknown Unknown Verified 08/10/21 20:04 haloperidol [From Haldol] Allergy Unknown Unknown Verified 08/10/21 20:04 Penicillins Allergy Unknown Unknown Verified 08/10/21 20:04 risperidone [From Risperdal] Allergy Unknown Unknown Verified 08/10/21 20:04 aspirin [Aspirin] AdvReac Intermediate Vomiting Verified 08/10/21 20:04 trazodone [TRAZODONE] AdvReac Intermediate NAUSEA & Verified 08/10/21 20:04 VOMITING Review of Systems Review of Systems: Pertinent positives and negatives as stated in the HPI and 10 point review of systems is otherwise negative. [facility] Past Medical History Source: nursing notes reviewed Medical History Anxiety Asthma Chronic mental illness COPD (chronic obstructive pulmonary disease) Hyperlipidemia Morbid obesity due to excess calories Schizophrenia Surgical History H/O right knee surgery History of appendectomy History of tubal ligation Family History Family History Father Throat cancer Mother CVA (cerebral vascular accident) Brother Drug overdose Sister No problems noted. Sister No problems noted. Son No problems noted. Son No problems noted. Social History 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: Other Household Members Other:: Lanny Ha (foster Mom) Housing: House Do you presently have visiting nurse or other home services: Yes Unable to assess alcohol history related to: Unknown Alcohol intake: unknown Patient Tobacco Use Status: Current everyday Tobacco user Tobacco use type: Cigarette Cigarettes Per Day: 10 e-Cigarette/Vaping Use: Never Used Second Hand Smoke Exposure: No Advance Directives: No Advance Directives Information Provided: Yes Advance Directives Date on File: 03/03/14 service: No Current occupational status: disabled Sexual orientation: Straight/Heterosexual Physical Exam Vital Signs: Vital Signs: Last Vital Signs Temp 98.1 F 08/10/21 19:58 Pulse 103 H 08/10/21 19:58 Resp 22 H 08/10/21 19:58 BP 135/73 08/10/21 19:58 Pulse Ox 91 L 08/10/21 19:58 BMI result Body Mass Index 36.1 VITAL SIGNS: Reviewed. GENERAL: Well developed, well nourished, in no acute distress. HEAD: Normocephalic/atraumatic EYES: PERRLA, EOMI EARS: Ext canals without abnormality, TMs non-bulging and non-erythematous NOSE: Nares patent bilateral OROPHARYNX: no oral lesions noted, posterior pharynx clear, dry mucosa LUNGS: Normal breath sounds. No adventitious sounds or accessory muscle use. SpO2<91> responds well to 2 L of nasal cannula up to 97% CARDIOVASCULAR: Regular rate and rhythm without noted murmurs, no JVD or lower extremity edema. ABDOMEN: Soft, tenderness on palpation over epigastrium without rebound, non-distended with bowel sounds. MUSCULOSKELETAL: No tenderness, deformities, or effusions noted on gross inspection. EXTREMITIES: No cyanosis, clubbing or edema. SKIN: Inspection of the skin reveals no rashes NEUROLOGIC: Alert and oriented x 4. Strength and sensation to light touch were grossly intact x 4. Course Course Course Narrative: 55-year-old female with history and clinical presentation consistent with complications associated with COVID-19 infection, but low clinical suspicion for bacterial infection and noted SIRS response is related to viral infection. Review of all investigations consistent with COVID-19 related hypoxia with mild dehydration. Patient requiring supplemental oxygen. This case was discussed with inpatient hospitalist who accepts admission. Medical Decision Making Lab Data Result diagrams: 08/10/21 20:39 08/10/21 20:39 Labs: Lab Results 08/10/21 08/10/21 08/10/21 Range/Units 20:39 20:39 20:39 WBC 7.6 (4.8-10.8) X10*3/uL RBC 3.76 L (4.20-5.50) X10*6/uL Hgb 10.9 L (12.0-16.0) g/dl Hct 34.2 L (37.0-47.0) % MCV 91.0 (80.0-98.0) fL MCH 29.0 (27.0-33.0) pg MCHC 31.9 (31.0-35.0) g/dl RDW 14.4 (11.0-16.0) % Plt Count 273 (160-400) X10*3/uL MPV 11.0 (9.4-12.3) fL Immature Gran % (Auto) 2.0 H (0.0-0.4) % Neut % (Auto) 57.0 (45-73) % Lymph % (Auto) 29.6 (20-40) % Dane % (Auto) 9.1 (2-11) % Eos % (Auto) 2.2 (0-4) % Baso % (Auto) 0.1 (0-2) % Lymph # (Auto) 2.2 (1.2-4.9) X10*3/uL Dane # (Auto) 0.7 (0.1-1.2) X10*3/uL Eos # (Auto) 0.2 (0.0-0.4) X10*3/uL Baso # (Auto) 0.0 (0.0-0.2) X10*3/uL Abs Immat Gran (auto) 0.15 H (0.00-0.03) X10*3/uL Absolute Neuts (auto) 4.3 (2.0-8.3) x10*3/uL Absolute Nucleated RBC 0.050 H (0.0-0.012) X10*3/uL Nucleated RBC % (auto) 0.7 H (0.0-0.2) /100WBC Smear Tech's Comments VERIFIED VBG pH (7.32-7.43) VBG pCO2 mmHg VBG pO2 mmHg VBG HCO3 (22-26) mmol/L VBG O2 Saturation % VBG Base Excess mmol/L Sodium 141 (135-145) mmol/L Potassium 3.7 (3.3-5.1) mmol/L Chloride 96 (96-108) mmol/L Carbon Dioxide 32 H (22-29) mmol/L Anion Gap 17 (12-20) BUN 10 (9-16) mg/dL Creatinine 0.60 (0.5-1.4) mg/dL Estim Creat Clear Calc 105.9 Estimated GFR > 60 Random Glucose 99 (60-115) mg/dL Calcium 9.1 (8.4-10.2) mg/dL Total Bilirubin 0.4 (0.0-1.0) mg/dL Direct Bilirubin 0.2 (0.0-0.5) mg/dL AST 24 (5-31) U/L ALT 31 (0-31) U/L Alkaline Phosphatase 61 D (39-117) U/L Troponin I High Sens 4.0 (<3.5-17.0) ng/L Total Protein 7.6 (6.5-8.0) g/dL Albumin 4.0 (3.5-5.0) g/dL COVID-19 ([facility]) (Negative) COVID-19 Clin Com 08/10/21 08/10/21 Range/Units 20:39 22:07 WBC (4.8-10.8) X10*3/uL RBC (4.20-5.50) X10*6/uL Hgb (12.0-16.0) g/dl Hct (37.0-47.0) % MCV (80.0-98.0) fL MCH (27.0-33.0) pg MCHC (31.0-35.0) g/dl RDW (11.0-16.0) % Plt Count (160-400) X10*3/uL MPV (9.4-12.3) fL Immature Gran % (Auto) (0.0-0.4) % Neut % (Auto) (45-73) % Lymph % (Auto) (20-40) % Dane % (Auto) (2-11) % Eos % (Auto) (0-4) % Baso % (Auto) (0-2) % Lymph # (Auto) (1.2-4.9) X10*3/uL Dane # (Auto) (0.1-1.2) X10*3/uL Eos # (Auto) (0.0-0.4) X10*3/uL Baso # (Auto) (0.0-0.2) X10*3/uL Abs Immat Gran (auto) (0.00-0.03) X10*3/uL Absolute Neuts (auto) (2.0-8.3) x10*3/uL Absolute Nucleated RBC (0.0-0.012) X10*3/uL Nucleated RBC % (auto) (0.0-0.2) /100WBC Smear Tech's Comments VBG pH 7.51 H (7.32-7.43) VBG pCO2 51 mmHg VBG pO2 53 mmHg VBG HCO3 41 H (22-26) mmol/L VBG O2 Saturation 80.0 % VBG Base Excess 16.3 mmol/L Sodium (135-145) mmol/L Potassium (3.3-5.1) mmol/L Chloride (96-108) mmol/L Carbon Dioxide (22-29) mmol/L Anion Gap (12-20) BUN (9-16) mg/dL Creatinine (0.5-1.4) mg/dL Estim Creat Clear Calc Estimated GFR Random Glucose (60-115) mg/dL Calcium (8.4-10.2) mg/dL Total Bilirubin (0.0-1.0) mg/dL Direct Bilirubin (0.0-0.5) mg/dL AST (5-31) U/L ALT (0-31) U/L Alkaline Phosphatase (39-117) U/L Troponin I High Sens (<3.5-17.0) ng/L Total Protein (6.5-8.0) g/dL Albumin (3.5-5.0) g/dL COVID-19 ([facility]) Positive A (Negative) COVID-19 Clin Com See Note ECG Data Attestation: I personally reviewed and interpreted this ECG as follows: Prior ECG tracings: available for review (04/22/2021) Interpretation: Normal sinus rhythm, HR-97, no STEMI, FL/QRS/QTC are within normal limits. Discharge Plan Discharge Clinical Impression: Pneumonia due to COVID-19 virus, Hypoxia, Dehydration Patient Disposition: Admitted As Inpatient Prescriptions: No Action polyethylene glycol 3350 17 gram/dose powder 17 g PO DAILY 30 Days Qty: 510 RF: 0 lactulose [Generlac] 10 gram/15 mL solution 15 ml PO DAILY PRN (Reason: Constipation) RF: 0 Aspercreme with Aloe 10 % Cream 1 appl topical BEDTIME PRN (Reason: Inflammation) 30 Days Qty: 35.4 RF: 0 albuterol sulfate 2.5 mg /3 mL (0.083 %) solution for nebulization 2.5 mg inhalation TID 30 Days Qty: 270 RF: 0 clozapine 100 mg tablet 300 mg PO BEDTIME 30 Days Qty: 90 RF: 0 clonazepam 1 mg tablet See Rx Instructions .ROUTE .COMPLEX Qty: 45 RF: 0 tramadol 50 mg tablet 50 mg PO Q6H 30 Days Qty: 7 RF: 0 lisinopril 10 mg tablet 10 mg PO QPM 30 Days Qty: 30 RF: 0 divalproex 500 mg tablet extended release 24 hr 1,500 mg PO BEDTIME 30 Days Qty: 90 RF: 0 omeprazole 20 mg capsule,delayed release(DR/EC) 20 mg PO BID 30 Days Qty: 60 RF: 0 montelukast 10 mg tablet 10 mg PO DAILY 30 Days Qty: 30 RF: 0 clozapine 25 mg tablet 50 mg PO QAM 30 Days Qty: 60 RF: 0 fluoxetine 20 mg capsule 20 mg PO QAM 30 Days Qty: 30 RF: 0 Flovent HFA 110 mcg/actuation HFA aerosol inhaler 2 puff PO BID 30 Days Qty: 12 RF: 0
[2021-08-10 22:13] LABS: Alanine Aminotransferase 31 U/L (0-31); Alkaline Phosphatase 61 U/L (39-117); Aspartate Amino Transferase 24 U/L (5-31); Bilirubin Direct 0.2 mg/dL (0.0-0.5); Bilirubin Total 0.4 mg/dL (0.0-1.0); Calcium 9.1 mg/dL (8.4-10.2); Carbon Dioxide 32 mmol/L (22-29); Creatinine Clr Calc Pharmacy 105.9; Glucose Random 99 mg/dL (60-115); Sodium 141 mmol/L (135-145); Total Protein 7.6 g/dL (6.5-8.0)
[2021-08-10 22:13] LABS: Venous Blood Gas Refer to POC result
[2021-08-10 22:14] LABS: VBG Base Excess 16.3 mmol/L; VBG HCO3 41 mmol/L (22-26); VBG pCO2 51 mmHg; VBG pH 7.51 (7.32-7.43); VBG pO2 53 mmHg
[2021-08-10] MEDS: Albuterol Sulfate 90 MCG 8 GM INHALER 4 PUFF INHALE (22:27)
[2021-08-10] MEDS: Benzonatate 100 MG CAPSULE PO (22:27)
[2021-08-10] MEDS: ondansetron HCL 4 MG/2 ML VIAL IVPUSH (22:27)
--- NOTE | 2021-08-10 22:29 | PM.IMHP ---
History of Present Illness Date of Service: 08/10/21 Chief Complaint: Shortness of breath 55-year-old female with a past medical history of hypertension, hyperlipidemia, COPD, schizophrenia, obesity, anxiety presented to the hospital today with a chief complaint of shortness of breath/generalized weakness. Patient reported that she was tested positive for COVID-19 on 07/26/2021; and has been not feeling well. Reports he has been having generalized weakness/fatigue/decreased appetite/loss of taste. Also complains of chills and body aches; denies any chest pain or palpitations. As the symptoms were not improving decided to come to the ER for further evaluation. Denies any urinary symptoms. Denies any diarrhea. Complains of mild abdominal discomfort. Review of all other systems is negative except mentioned above ER course: Per ER team patient on presentation noted to be saturating at 91% on room air; not in distress; chest x-ray findings concerning for infectious/inflammatory process; EKG nonischemic; troponin negative; noted to have COVID-19 positive; admitted for further management. [facility] Medical History Anxiety Asthma Chronic mental illness COPD (chronic obstructive pulmonary disease) Hyperlipidemia Morbid obesity due to excess calories Schizophrenia Family History Father Throat cancer Mother CVA (cerebral vascular accident) Brother Drug overdose Sister No problems noted. Sister No problems noted. Son No problems noted. Son No problems noted. Pertinent family history: As mentioned above Surgical History H/O right knee surgery History of appendectomy History of tubal ligation 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: Other Household Members Other:: Lanny Ha (foster Mom) Housing: House Do you presently have visiting nurse or other home services: Yes Unable to assess alcohol history related to: Unknown Alcohol intake: unknown Patient Tobacco Use Status: Current everyday Tobacco user Tobacco use type: Cigarette Cigarettes Per Day: 10 e-Cigarette/Vaping Use: Never Used Second Hand Smoke Exposure: No Advance Directives: No Advance Directives Information Provided: Yes Advance Directives Date on File: 03/03/14 service: No Current occupational status: disabled Sexual orientation: Straight/Heterosexual Meds Allergies Allergy/AdvReac Type Severity Reaction Status Date / Time diazepam [From Valium] Allergy Unknown Unknown Verified 08/10/21 20:04 haloperidol [From Haldol] Allergy Unknown Unknown Verified 08/10/21 20:04 Penicillins Allergy Unknown Unknown Verified 08/10/21 20:04 risperidone [From Risperdal] Allergy Unknown Unknown Verified 08/10/21 20:04 aspirin [Aspirin] AdvReac Intermediate Vomiting Verified 08/10/21 20:04 trazodone [TRAZODONE] AdvReac Intermediate NAUSEA & Verified 08/10/21 20:04 VOMITING Active Medications: Current Medications Sodium Chloride (Ns) 1,000 mls @ 999 mls/hr IV .Q1H1M STA Stop: 08/10/21 22:48 Pharmacy Consult (Consult Rx Perform Med Rec) 1 each MISCELLANE ONCE PRN PRN Reason: Consult order Home Medications Medication Instructions Recorded Confirmed Last Taken Type lactulose 10 gram/15 mL oral 15 ml PO DAILY PRN 07/07/21 07/07/21 Unknown History solution (Generlac) Physical Exam Vital Signs and Narrative: Vital Signs: Last Vital Signs Temp 98.1 F 08/10/21 19:58 Pulse 103 H 08/10/21 19:58 Resp 22 H 08/10/21 19:58 BP 135/73 08/10/21 19:58 Pulse Ox 91 L 08/10/21 19:58 BMI result Body Mass Index 36.1 Gen: Appears be in no acute distress. Speaks in full sentences. On supplemental oxygen. HEENT: NCAT, Moist mucosa. Pulmonary: Coarse breath sounds CVS: Normal S1-S2 Abdomen: BS+, Soft, Nontender Extremities: Warm well perfused Neuro: Alert and awake. Results Labs CBC and Chem 7: 08/10/21 20:39 08/10/21 20:39 Labs: Laboratory Results - last 24 hr 08/10/21 08/10/21 08/10/21 20:39 20:39 20:39 MCV 91.0 MCH 29.0 MCHC 31.9 RDW 14.4 Plt Count 273 MPV 11.0 Immature Gran % (Auto) 2.0 H Neut % (Auto) 57.0 Lymph % (Auto) 29.6 [place] % (Auto) 9.1 Eos % (Auto) 2.2 Baso % (Auto) 0.1 Lymph # (Auto) 2.2 [place] # (Auto) 0.7 Eos # (Auto) 0.2 Baso # (Auto) 0.0 Abs Immat Gran (auto) 0.15 H Absolute Neuts (auto) 4.3 Absolute Nucleated RBC 0.050 H Nucleated RBC % (auto) 0.7 H Smear Tech's Comments VERIFIED VBG pH VBG pCO2 VBG pO2 VBG HCO3 VBG O2 Saturation VBG Base Excess Anion Gap 17 Estim Creat Clear Calc 105.9 Estimated GFR > 60 Random Glucose 99 Calcium 9.1 Total Bilirubin 0.4 Direct Bilirubin 0.2 AST 24 ALT 31 Alkaline Phosphatase 61 D Troponin I High Sens 4.0 Total Protein 7.6 Albumin 4.0 COVID-19 ([facility]) COVID-19 Clin Com 08/10/21 08/10/21 20:39 22:07 MCV MCH MCHC RDW Plt Count MPV Immature Gran % (Auto) Neut % (Auto) Lymph % (Auto) [place] % (Auto) Eos % (Auto) Baso % (Auto) Lymph # (Auto) [place] # (Auto) Eos # (Auto) Baso # (Auto) Abs Immat Gran (auto) Absolute Neuts (auto) Absolute Nucleated RBC Nucleated RBC % (auto) Smear Tech's Comments VBG pH 7.51 H VBG pCO2 51 VBG pO2 53 VBG HCO3 41 H VBG O2 Saturation 80.0 VBG Base Excess 16.3 Anion Gap Estim Creat Clear Calc Estimated GFR Random Glucose Calcium Total Bilirubin Direct Bilirubin AST ALT Alkaline Phosphatase Troponin I High Sens Total Protein Albumin COVID-19 ([facility]) Positive A COVID-19 Clin Com See Note Imaging Radiologist's Impressions: Impressions Chest X-Ray 08/10/21 20:15 IMPRESSION: Bronchial wall thickening may be infectious and/or inflammatory in etiology. Assessment and Plan (1) Pneumonia due to COVID-19 virus: Status: Acute 55-year-old female with a past medical history of hypertension, hyperlipidemia, COPD, schizophrenia, obesity, anxiety presented to the hospital today with a chief complaint of shortness of breath/generalized weakness. Noted to have COVID-19 positive admitted for further management. COVID-19 infection: Concern for pneumonia. Empirically started on ceftriaxone azithromycin. Will obtain procalcitonin-if negative will discontinue antibiotics. Continue Decadron Supplemental oxygen Id consult for further recommendations Will obtain D-dimer Hypertension/hyperlipidemia: Stable. Continue home medications. DVT prophylaxis: Lovenox Code status: Full code Quality Stroke Does the patient have a stroke diagnosis?: No VTE Prior VTE?: No VTE Risk Level:: Medical - moderate - high VTE Device Contraindication: Treatment Not Indicated VTE Drug Contraindication: N/A - Med Ordered
[2021-08-10] MEDS: 0.9 % Sodium Chloride 1,000 ML 999 ML IV (22:31)
[2021-08-10 23:30] LABS: Troponin-I High Sensitivity 3.9 ng/L (<3.5-17.0)
[2021-08-10] MEDS: Enoxaparin Sodium 40 MG/0.4 ML SYRINGE SUBCUT (23:44)
[2021-08-10] MEDS: levoFLOXacin 750 MG TABLET PO (23:45)
[2021-08-11 00:33] LABS: Procalcitonin 0.07 ng/mL
[2021-08-11 00:58] VITALS: BP 127/64; PULSE 89; RESP 16; TEMP 36.9; O2SAT 94
[2021-08-11] MEDS: Morphine Sulfate 4 MG/ML CARTRIDGE 1 MG IVPUSH (01:05)
[2021-08-11 01:36] LABS: D Dimer High Sensitivity 199 NG/ML
[2021-08-11 06:58] LABS: Basophils Percent Auto 0.2 % (0-2); Eosinophils Absolute Auto 0.2 X10*3/uL (0.0-0.4); Eosinophils Percent Auto 2.9 % (0-4); Hematocrit 33.7 % (37.0-47.0); Hemoglobin 10.4 g/dl (12.0-16.0); Imm Gran Abs Auto 0.14 X10*3/uL (0.00-0.03); Imm Gran Pct Auto 2.2 % (0.0-0.4); Lymphocytes Absolute Auto 2.5 X10*3/uL (1.2-4.9); Lymphocytes Percent Auto 39.2 % (20-40); MANUAL DIFF FLAG SCAN; Mean Corpuscular HGB Conc 30.9 g/dl (31.0-35.0); Mean Corpuscular Hemoglobin 28.4 pg (27.0-33.0); Mean Corpuscular Volume 92.1 fL (80.0-98.0); Mean Platelet Volume 10.9 fL (9.4-12.3); Monocytes Absolute Auto 0.6 X10*3/uL (0.1-1.2); Monocytes Percent Auto 9.7 % (2-11); NRBC Pct Auto 0.5 /100WBC (0.0-0.2); Neutrophils Absolute Auto 2.9 x10*3/uL (2.0-8.3); Neutrophils Percent Auto 45.8 % (45-73); Platelet Count 263 X10*3/uL (160-400); Red Blood Count 3.66 X10*6/uL (4.20-5.50); Red Cell Distribution Width 14.3 % (11.0-16.0); SCAN SMEAR FLAG 1; White Blood Count 6.3 X10*3/uL (4.8-10.8)
[2021-08-11 07:17] LABS: Anion Gap 12 (12-20); Blood Urea Nitrogen 8 mg/dL (9-16); Calcium 8.5 mg/dL (8.4-10.2); Carbon Dioxide 32 mmol/L (22-29); Chloride 101 mmol/L (96-108); Creatinine Clr Calc Pharmacy 111.4; Estimated Glomerular Filt Rate > 60; Glucose Random 93 mg/dL (60-115); Potassium 3.4 mmol/L (3.3-5.1); Sodium 142 mmol/L (135-145)
[2021-08-11 07:41] LABS: SLIDE REVIEW VERIFIED
[2021-08-11 08:02] VITALS: BP 135/72; PULSE 87; RESP 16; O2SAT 95
[2021-08-11] MEDS: polyethylene glycoL 3350 17 GM POWD.PACK PO (08:41)
[2021-08-11] MEDS: Montelukast Sodium 10 MG TABLET PO (08:41)
[2021-08-11] MEDS: Omeprazole 20 MG CAPSULE.DR PO ×2 (08:41→20:06)
[2021-08-11] MEDS: dexAMETHasone sod phosphate 4 MG/ML VIAL 6 MG IVPUSH (08:43)
[2021-08-11] MEDS: 0.9 % Sodium Chloride Flush 3 ML SYRINGE IVFLUSH ×3 (08:45→20:22)
[2021-08-11] MEDS: clonazePAM 0.5 MG TABLET PO (09:20)
[2021-08-11] MEDS: traMADoL HCL 50 MG TABLET PO ×2 (09:20→20:06)
[2021-08-11] MEDS: Fluticasone Propionate 100 MCG BLST.W.DEV 2 PUFF INHALE ×2 (09:20→20:33)
[2021-08-11] MEDS: FLUoxetine HCl 20 MG CAPSULE PO (09:20)
[2021-08-11 10:21] VITALS: O2SAT 87
--- NOTE | 2021-08-11 12:00 | HO.PM.IMPN ---
Subjective Subjective Date of Service: 08/11/21 Interval History: cC: myalgias interval history: unchanged Cardiovascular Cardiovascular: Reports no additional cardiovascular complaints Gastrointestinal Gastrointestinal: Reports no additional gastrointestinal complaints Physical Exam Vital Signs: Vital Signs: Last Vital Signs Temp 98.5 F 08/11/21 00:58 Pulse 87 08/11/21 08:02 Resp 16 08/11/21 08:02 BP 135/72 08/11/21 08:02 Pulse Ox 87 L 08/11/21 10:21 BMI result Body Mass Index 36.1 General: AO X 3, restless Resp: diminishedl, mild accessory muscles used CVS: S1,S2,RRR GI: soft, non tender, non distended Neuro: motor grossly intact, alert Psych: flat affect, appropriate insight Objective Data Active Medications Acetaminophen (Acetaminophen 325 Mg Tablet) 650 mg PO Q6H PRN PRN Reason: Pain, Mild (Pain Scale 1-3) Clonazepam (Clonazepam 0.5 Mg Tablet) 0.5 mg PO DAILY [facility] Last Admin: 08/11/21 09:20 Dose: 0.5 mg Documented by: PIEDAD Clonazepam (Clonazepam 1 Mg Tablet) 1 mg PO BEDTIME [facility] Clozapine (Clozapine 25 Mg Tablet) 50 mg PO DAILY [facility] Clozapine (Clozapine 100 Mg Tablet) 300 mg PO BEDTIME [facility] Dexamethasone Sodium Phosphate (Dexamethasone Sod Phosphate 4 Mg/Ml Vial) 6 mg IVPUSH DAILY [facility] Last Admin: 08/11/21 08:43 Dose: 6 mg Documented by: PIEDAD Divalproex Sodium (Divalproex Sodium Er 500 Mg Tab.Er.24h) 1,500 mg PO BEDTIME [facility] Enoxaparin Sodium (Enoxaparin Sodium 40 Mg/0.4 Ml Syringe) 40 mg SUBCUT Q24H [facility] Last Admin: 08/10/21 23:44 Dose: 40 mg Documented by: ISHMAEL Fluconazole (Fluconazole 150 Mg Tablet) 150 mg PO Fr [facility] Fluoxetine HCl (Fluoxetine Hcl 20 Mg Capsule) 20 mg PO DAILY [facility] Last Admin: 08/11/21 09:20 Dose: 20 mg Documented by: PIEDAD Fluticasone Propionate (Fluticasone Propionate 100 Mcg Blst.W.Dev) 2 puff INHALE RBID [facility] Last Admin: 08/11/21 09:20 Dose: 2 puff Documented by: PIEDAD Lisinopril (Lisinopril 10 Mg Tablet) 10 mg PO BEDTIME [facility]; Protocol Montelukast Sodium (Montelukast Sodium 10 Mg Tablet) 10 mg PO DAILY [facility] Last Admin: 08/11/21 08:41 Dose: 10 mg Documented by: PIEDAD Morphine Sulfate (Morphine Sulfate 4 Mg/Ml Cartridge) 1 mg IVPUSH Q4H PRN; Protocol PRN Reason: Pain, SOb Last Admin: 08/11/21 01:05 Dose: 1 mg Documented by: ISHMAEL Omeprazole (Omeprazole 20 Mg Capsule.Dr) 20 mg PO BID [facility] Last Admin: 08/11/21 08:41 Dose: 20 mg Documented by: PIEDAD Pharmacy Consult (Consult Rx Perform Med Rec) 1 each MISCELLANE ONCE PRN PRN Reason: Consult order Polyethylene Glycol (Polyethylene Glycol 3350 17 Gm Powd.Pack) 17 gm PO DAILY [facility] Last Admin: 08/11/21 08:41 Dose: 17 gm Documented by: PIEDAD Senna (Sennosides 8.6 Mg Tablet) 17.2 mg PO BEDTIME PRN PRN Reason: Constipation Sodium Chloride (0.9 % Sodium Chloride Flush 3 Ml Syringe) 3 ml IVFLUSH QSHIFT [facility] Last Admin: 08/11/21 08:45 Dose: 3 ml Documented by: PIEDAD Tramadol HCl (Tramadol Hcl 50 Mg Tablet) 50 mg PO BID [facility] Last Admin: 08/11/21 09:20 Dose: 50 mg Documented by: PIEDAD Labs CBC & Chem 7: 08/11/21 06:45 08/11/21 06:45 Labs: Laboratory Results - last 24 hr 08/10/21 08/10/21 08/10/21 20:39 20:39 20:39 MCV 91.0 MCH 29.0 MCHC 31.9 RDW 14.4 Plt Count 273 MPV 11.0 Immature Gran % (Auto) 2.0 H Neut % (Auto) 57.0 Lymph % (Auto) 29.6 [place] % (Auto) 9.1 Eos % (Auto) 2.2 Baso % (Auto) 0.1 Lymph # (Auto) 2.2 [place] # (Auto) 0.7 Eos # (Auto) 0.2 Baso # (Auto) 0.0 Abs Immat Gran (auto) 0.15 H Absolute Neuts (auto) 4.3 Absolute Nucleated RBC 0.050 H Nucleated RBC % (auto) 0.7 H Smear Tech's Comments VERIFIED D-Dimer High Sensitivty VBG pH VBG pCO2 VBG pO2 VBG HCO3 VBG O2 Saturation VBG Base Excess Anion Gap 17 Estim Creat Clear Calc 105.9 Estimated GFR > 60 Random Glucose 99 Calcium 9.1 Total Bilirubin 0.4 Direct Bilirubin 0.2 AST 24 ALT 31 Alkaline Phosphatase 61 D Troponin I High Sens 4.0 Total Protein 7.6 Albumin 4.0 Procalcitonin COVID-19 ([facility]) COVID-19 Clin Com 08/10/21 08/10/21 08/10/21 20:39 22:07 23:05 MCV MCH MCHC RDW Plt Count MPV Immature Gran % (Auto) Neut % (Auto) Lymph % (Auto) [place] % (Auto) Eos % (Auto) Baso % (Auto) Lymph # (Auto) [place] # (Auto) Eos # (Auto) Baso # (Auto) Abs Immat Gran (auto) Absolute Neuts (auto) Absolute Nucleated RBC Nucleated RBC % (auto) Smear Tech's Comments D-Dimer High Sensitivty 199 VBG pH 7.51 H VBG pCO2 51 VBG pO2 53 VBG HCO3 41 H VBG O2 Saturation 80.0 VBG Base Excess 16.3 Anion Gap Estim Creat Clear Calc Estimated GFR Random Glucose Calcium Total Bilirubin Direct Bilirubin AST ALT Alkaline Phosphatase Troponin I High Sens Total Protein Albumin Procalcitonin COVID-19 ([facility]) Positive A COVID-19 Clin Com See Note 08/10/21 08/10/21 08/11/21 23:05 23:05 06:45 MCV 92.1 MCH 28.4 MCHC 30.9 L RDW 14.3 Plt Count 263 MPV 10.9 Immature Gran % (Auto) 2.2 H Neut % (Auto) 45.8 Lymph % (Auto) 39.2 [place] % (Auto) 9.7 Eos % (Auto) 2.9 Baso % (Auto) 0.2 Lymph # (Auto) 2.5 [place] # (Auto) 0.6 Eos # (Auto) 0.2 Baso # (Auto) 0.0 Abs Immat Gran (auto) 0.14 H Absolute Neuts (auto) 2.9 Absolute Nucleated RBC 0.030 H Nucleated RBC % (auto) 0.5 H Smear Tech's Comments VERIFIED D-Dimer High Sensitivty VBG pH VBG pCO2 VBG pO2 VBG HCO3 VBG O2 Saturation VBG Base Excess Anion Gap Estim Creat Clear Calc Estimated GFR Random Glucose Calcium Total Bilirubin Direct Bilirubin AST ALT Alkaline Phosphatase Troponin I High Sens 3.9 Total Protein Albumin Procalcitonin 0.07 COVID-19 ([facility]) COVID-19 Clin Com 08/11/21 06:45 MCV MCH MCHC RDW Plt Count MPV Immature Gran % (Auto) Neut % (Auto) Lymph % (Auto) [place] % (Auto) Eos % (Auto) Baso % (Auto) Lymph # (Auto) [place] # (Auto) Eos # (Auto) Baso # (Auto) Abs Immat Gran (auto) Absolute Neuts (auto) Absolute Nucleated RBC Nucleated RBC % (auto) Smear Tech's Comments D-Dimer High Sensitivty VBG pH VBG pCO2 VBG pO2 VBG HCO3 VBG O2 Saturation VBG Base Excess Anion Gap 12 Estim Creat Clear Calc 111.4 Estimated GFR > 60 Random Glucose 93 Calcium 8.5 D Total Bilirubin Direct Bilirubin AST ALT Alkaline Phosphatase Troponin I High Sens Total Protein Albumin Procalcitonin COVID-19 ([facility]) COVID-19 Clin Com Assessment and Plan (1) Pneumonia due to COVID-19 virus: Status: Acute Assessment and Plan: 55F with known covid presented with myalgias, found to be hypoxic Acute hypoxic respiratory failure secondary to COVID-19 pneumonia complicated by COPD with acute decompensation Wean O2 as tolerated Decadron day 2 No evidence of bacterial infection will discontinue Levaquin Follow-up id Monitor prognostic labs Schizophrenia with recent inpatient admission Psych eval for med reconciliation Continue Clozaril and Depakote Quality Stroke Does the patient have a stroke diagnosis?: No VTE Prior VTE?: No VTE Risk Level:: Medical - moderate - high VTE Device Contraindication: Treatment Not Indicated VTE Drug Contraindication: N/A - Med Ordered
[2021-08-11] MEDS: cloZAPine 25 MG TABLET 50 MG PO (13:16)
--- NOTE | 2021-08-11 14:51 | MHC.CM.PN ---
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 SHE REPORTS THE PT IS ALSO ACTIVE WITH [facility] FOR MENTAL HEALTH SUPPORT AND MEDICATION MANAGEMENT JOSE ENRIQUE CONFIRMS THE PTS PCP IS ANDREZ QUISPE REPORTS THE PT HAS INDICATED THAT SHE MADE HER THE HCP, SHE WILL SEE IF THERE IS A COPY AVAILABLE CM CALLED [facility] CAKE TESTER, ELSY WELDON [phone], WHO CONFIRMS PT IS ACTIVE WITH THEM AND THEY WILL NEED TO BE NOTIFIED OF DC THEY MANAGE HER MEDS. ELSY REPORTS IF THE PT DISCHARGES TOMORROW, CM SHOULD CONTACT JERI HO [phone]. SHE WAS MADE AWARE THAT PER MD ROUNDS, PT WAS NOT EXPECTED TO REMAIN INPT FOR LONG AND SHE MAY DC TODAY OR TOMORROW. CURRENT DC PLAN IS TO RETURN TO [facility]ULT [facility] WITH [facility] AND RESUME [facility] COMMUNITY SUPPORT. JOSE ENRIQUE WILL TRANSPORT
[2021-08-11 18:26] VITALS: BP 149/90; PULSE 87; RESP 20; TEMP 36.9; O2SAT 92
[2021-08-11 18:41] VITALS: BMI 36.1
--- NOTE | 2021-08-11 20:03 | P.EN_ITS ---
Event Note Date of Service: 08/11/21 Event Note: Pharmacist called and asked bond underwriter recommendation regarding clozap ine medication. Currently patient's ANC is within normal limits. There is very little literature regarding continuation of clozapine with COVID virus. Clozapine rems website reviewed. Patient has severe psychotic disorder relying on clozapine for stability. Soap Drier Operator discussed case with pharmacist and with Dr. Leung and it is agreed that for now patient can be continued on clozapine getting daily ANC with low threshold for stopping clozapine if ANC mood lowers further.
[2021-08-11] MEDS: clonazePAM 1 MG TABLET PO (20:05)
[2021-08-11] MEDS: cloZAPine 100 MG TABLET 300 MG PO (20:05)
[2021-08-11] MEDS: Divalproex Sodium ER 500 MG TAB.ER.24H 1500 MG PO (20:05)
[2021-08-11] MEDS: lisinopriL 10 MG TABLET PO (20:05)
[2021-08-11 20:26] VITALS: PULSE 81; RESP 18; O2SAT 91
--- NOTE | 2021-08-11 22:53 | W.PM.IDCN ---
History of Present Illness Data of Consult Service Date: 08/11/21 Requesting physician: Jessica Houston Primary Care Provider: Unknown Physician HPI Reason for consult: fatigue She presents with nausea and fatigue for 10 days since diagnosis She is on room air She has COVID diagnosis Review of Systems Review of Systems: Yes all other systems are reviewed and are negative [facility] Past Medical History Medical History Anxiety Asthma Chronic mental illness COPD (chronic obstructive pulmonary disease) Hyperlipidemia Morbid obesity due to excess calories Schizophrenia Family History Family History Father Throat cancer Mother CVA (cerebral vascular accident) Brother Drug overdose Sister No problems noted. Sister No problems noted. Son No problems noted. Son No problems noted. Family history: reviewed and not pertinent Surgical History Surgical History H/O right knee surgery History of appendectomy History of tubal ligation Social History 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: Friend(s) Household Members Other:: Lanny Ha (foster Mom) Housing: House Do you presently have visiting nurse or other home services: No Unable to assess alcohol history related to: Unknown Alcohol intake: unknown Patient Tobacco Use Status: Current everyday Tobacco user Tobacco use type: Cigarette Cigarettes Per Day: 10 e-Cigarette/Vaping Use: Never Used Second Hand Smoke Exposure: No Advance Directives Date on File: 03/03/14 service: No Current occupational status: disabled Sexual orientation: Straight/Heterosexual Meds Allergies Allergy/AdvReac Type Severity Reaction Status Date / Time diazepam [From Valium] Allergy Unknown Unknown Verified 08/10/21 20:04 haloperidol [From Haldol] Allergy Unknown Unknown Verified 08/10/21 20:04 Penicillins Allergy Unknown Unknown Verified 08/10/21 20:04 risperidone [From Risperdal] Allergy Unknown Unknown Verified 08/10/21 20:04 aspirin [Aspirin] AdvReac Intermediate Vomiting Verified 08/10/21 20:04 trazodone [TRAZODONE] AdvReac Intermediate NAUSEA & Verified 08/10/21 20:04 VOMITING Active Medications: Current Medications Acetaminophen (Acetaminophen 325 Mg Tablet) 650 mg PO Q6H PRN PRN Reason: Pain, Mild (Pain Scale 1-3) Clonazepam (Clonazepam 0.5 Mg Tablet) 0.5 mg PO DAILY [facility] [place] Last Admin: 08/11/21 09:20 Dose: 0.5 mg Documented by: Clonazepam (Clonazepam 1 Mg Tablet) 1 mg PO BEDTIME [facility] [place] Last Admin: 08/11/21 20:05 Dose: 1 mg Documented by: Clozapine (Clozapine 25 Mg Tablet) 50 mg PO DAILY [facility] [place] Last Admin: 08/11/21 13:16 Dose: 50 mg Documented by: Clozapine (Clozapine 100 Mg Tablet) 300 mg PO BEDTIME [facility] [place] Last Admin: 08/11/21 20:05 Dose: 300 mg Documented by: Dexamethasone Sodium Phosphate (Dexamethasone Sod Phosphate 4 Mg/Ml Vial) 6 mg IVPUSH DAILY [facility] [place] Last Admin: 08/11/21 08:43 Dose: 6 mg Documented by: Divalproex Sodium (Divalproex Sodium Er 500 Mg Tab.Er.24h) 1,500 mg PO BEDTIME [facility] [place] Last Admin: 08/11/21 20:05 Dose: 1,500 mg Documented by: Enoxaparin Sodium (Enoxaparin Sodium 40 Mg/0.4 Ml Syringe) 40 mg SUBCUT Q24H [facility] [place] Last Admin: 08/10/21 23:44 Dose: 40 mg Documented by: Fluconazole (Fluconazole 150 Mg Tablet) 150 mg PO Fr [facility] [place] Fluoxetine HCl (Fluoxetine Hcl 20 Mg Capsule) 20 mg PO DAILY [facility] [place] Last Admin: 08/11/21 09:20 Dose: 20 mg Documented by: Fluticasone Propionate (Fluticasone Propionate 100 Mcg Blst.W.Dev) 2 puff INHALE RBID [facility] [place] Last Admin: 08/11/21 20:33 Dose: 2 puff Documented by: Lisinopril (Lisinopril 10 Mg Tablet) 10 mg PO BEDTIME [facility] [place]; Protocol Last Admin: 08/11/21 20:05 Dose: 10 mg Documented by: Montelukast Sodium (Montelukast Sodium 10 Mg Tablet) 10 mg PO DAILY [facility] [place] Last Admin: 08/11/21 08:41 Dose: 10 mg Documented by: Morphine Sulfate (Morphine Sulfate 4 Mg/Ml Cartridge) 1 mg IVPUSH Q4H PRN; Protocol PRN Reason: Pain, SOb Last Admin: 08/11/21 01:05 Dose: 1 mg Documented by: Omeprazole (Omeprazole 20 Mg Capsule.) 20 mg PO BID [facility] [place] Last Admin: 08/11/21 20:06 Dose: 20 mg Documented by: Pharmacy Consult (Consult Rx Perform Med Rec) 1 each MISCELLANE ONCE PRN PRN Reason: Consult order Polyethylene Glycol (Polyethylene Glycol 3350 17 Gm Powd.Pack) 17 gm PO DAILY [facility] [place] Last Admin: 08/11/21 08:41 Dose: 17 gm Documented by: Senna (Sennosides 8.6 Mg Tablet) 17.2 mg PO BEDTIME PRN PRN Reason: Constipation Sodium Chloride (0.9 % Sodium Chloride Flush 3 Ml Syringe) 3 ml IVFLUSH QSHIFT [facility] [place] Last Admin: 08/11/21 20:22 Dose: 3 ml Documented by: Tramadol HCl (Tramadol Hcl 50 Mg Tablet) 50 mg PO BID [facility] Last Admin: 08/11/21 20:06 Dose: 50 mg Documented by: Home Medications Medication Instructions Recorded Confirmed Last Taken Type lactulose 10 gram/15 mL oral 15 ml PO DAILY PRN 07/07/21 08/11/21 08/09/21 History solution (Generlac) albuterol sulfate 90 mcg/actuation 2 puff PO Q4-6H PRN 08/11/21 08/11/21 Unknown History aerosol inhaler (ProAir HFA) bisacodyl 5 mg tablet,delayed 2 tab PO BEDTIME 08/11/21 08/11/21 08/09/21 History release clonazepam 1 mg tablet 0.5 mg PO DAILY 08/11/21 08/11/21 08/10/21 History clonazepam 1 mg tablet (Klonopin) 1 mg PO BEDTIME 08/11/21 08/11/21 08/09/21 History clotrimazole 1 % topical cream 1 appl TOPICAL BID 08/11/21 08/11/21 08/10/21 History docusate sodium 100 mg capsule 1 cap PO BID 08/11/21 08/11/21 08/10/21 History fluconazole 150 mg tablet 1 tab PO FR 08/11/21 08/11/21 08/05/21 History polyethylene glycol 3350 17 17 g PO DAILY PRN 08/11/21 08/11/21 Unknown History gram/dose oral powder sennosides 8.6 mg tablet (senna) 2 tab PO BEDTIME 08/11/21 08/11/21 08/09/21 History tramadol 50 mg tablet 50 mg PO BID 08/11/21 08/11/21 08/10/21 History Physical Exam Vital Signs: Vital Signs: Last Vital Signs Temp 98.4 F 08/11/21 18:26 Pulse 81 08/11/21 20:26 Resp 18 08/11/21 20:26 BP 149/90 H 08/11/21 18:26 Pulse Ox 92 08/11/21 18:26 BMI result Body Mass Index 36.1 Const: General: cooperative HENMT: Head: Yes normal to inspection Mouth: Normal oral and palatal mucosa present Resp: Effort & Inspection: normal respiratory effort Cardio: Rate: regular rate Rhythm: regular rhythm GI: Palpation (GI): Soft to palpation and nontender Extrem: General: Yes normal to inspection Results Labs CBC & Chem 7: 08/11/21 06:45 08/11/21 06:45 Labs: Short CBC 08/11/21 Range/Units 06:45 WBC 6.3 (4.8-10.8) X10*3/uL Hgb 10.4 L (12.0-16.0) g/dl Hct 33.7 L (37.0-47.0) % Plt Count 263 (160-400) X10*3/uL BMP 08/11/21 06:45 Sodium 142 Potassium 3.4 Chloride 101 Carbon Dioxide 32 H BUN 8 L Creatinine 0.57 Calcium 8.5 D Assessment and Plan (1) Dehydration: Status: Acute (2) Pneumonia due to COVID-19 virus: Status: Acute She has no oxygen needs, room air No COVID modalities such as no Dexamethasone since on room air
[2021-08-11] MEDS: Enoxaparin Sodium 40 MG/0.4 ML SYRINGE SUBCUT (23:59)
[2021-08-12] VITALS (8 sets, daily range): BP systolic 116–155; BP diastolic 58–74; PULSE 71–85; RESP 18–20; TEMP 36.8–37.2; O2SAT 91–94
[2021-08-12 06:44] LABS: Hematocrit 34.1 % (37.0-47.0); Hemoglobin 10.5 g/dl (12.0-16.0); Mean Corpuscular HGB Conc 30.8 g/dl (31.0-35.0); Mean Corpuscular Hemoglobin 28.3 pg (27.0-33.0); Mean Corpuscular Volume 91.9 fL (80.0-98.0); Mean Platelet Volume 11.2 fL (9.4-12.3); Neut%MD 53.2 %; Neutrophils Absolute Auto 3.8 x10*3/uL (2.0-8.3); Platelet Count 338 X10*3/uL (160-400); Red Blood Count 3.71 X10*6/uL (4.20-5.50); White Blood Count 7.1 X10*3/uL (4.8-10.8)
[2021-08-12 07:02] LABS: Anion Gap 14 (12-20); Blood Urea Nitrogen 12 mg/dL (9-16); C Reactive Protein 4.12 mg/dL (< or = 0.50); Calcium 8.9 mg/dL (8.4-10.2); Carbon Dioxide 30 mmol/L (22-29); Chloride 101 mmol/L (96-108); Creatinine Clr Calc Pharmacy 105.9; Estimated Glomerular Filt Rate > 60; Glucose Fasting 94 mg/dL (60-99); Potassium 3.9 mmol/L (3.3-5.1); Sodium 141 mmol/L (135-145)
--- NOTE | 2021-08-12 10:24 | HO.PM.IMPN ---
Subjective Subjective Date of Service: 08/12/21 Interval History: cc: myalgias interval hsitory: sleepy, achy Cardiovascular Cardiovascular: Reports no additional cardiovascular complaints Gastrointestinal Gastrointestinal: Reports no additional gastrointestinal complaints Physical Exam Vital Signs: Vital Signs: Last Vital Signs Temp 99 F 08/12/21 07:37 Pulse 78 08/12/21 07:37 Resp 20 08/12/21 07:37 BP 116/66 08/12/21 07:37 Pulse Ox 93 08/12/21 07:37 BMI result Body Mass Index 36.1 General: AO X 3, no acute distress Resp:? diminishedl, mild accessory muscles used CVS: S1,S2,RRR GI: soft, non tender, non distended Neuro:? motor grossly intact, alert Psych: flat affect, appropriate insight? Objective Data Active Medications Acetaminophen (Acetaminophen 325 Mg Tablet) 650 mg PO Q6H PRN PRN Reason: Pain, Mild (Pain Scale 1-3) Clonazepam (Clonazepam 0.5 Mg Tablet) 0.5 mg PO DAILY [facility] Last Admin: 08/11/21 09:20 Dose: 0.5 mg Documented by: PIEDAD Clonazepam (Clonazepam 1 Mg Tablet) 1 mg PO BEDTIME [facility] Last Admin: 08/11/21 20:05 Dose: 1 mg Documented by: ASHER Clozapine (Clozapine 25 Mg Tablet) 50 mg PO DAILY [facility] Last Admin: 08/11/21 13:16 Dose: 50 mg Documented by: PIEDAD Clozapine (Clozapine 100 Mg Tablet) 300 mg PO BEDTIME [facility] Last Admin: 08/11/21 20:05 Dose: 300 mg Documented by: ASHER Dexamethasone Sodium Phosphate (Dexamethasone Sod Phosphate 4 Mg/Ml Vial) 6 mg IVPUSH DAILY [facility] Last Admin: 08/11/21 08:43 Dose: 6 mg Documented by: PIEDAD Divalproex Sodium (Divalproex Sodium Er 500 Mg Tab.Er.24h) 1,500 mg PO BEDTIME [facility] Last Admin: 08/11/21 20:05 Dose: 1,500 mg Documented by: ASHER Enoxaparin Sodium (Enoxaparin Sodium 40 Mg/0.4 Ml Syringe) 40 mg SUBCUT Q24H [facility] Last Admin: 08/11/21 23:59 Dose: 40 mg Documented by: ASHER Fluconazole (Fluconazole 150 Mg Tablet) 150 mg PO Fr [facility] Fluoxetine HCl (Fluoxetine Hcl 20 Mg Capsule) 20 mg PO DAILY [facility] Last Admin: 08/11/21 09:20 Dose: 20 mg Documented by: PIEDAD Fluticasone Propionate (Fluticasone Propionate 100 Mcg Blst.W.Dev) 2 puff INHALE RBID [facility] Last Admin: 08/12/21 07:59 Dose: Not Given Documented by: TOBY Non-Admin Reason: Patient Refused Lisinopril (Lisinopril 10 Mg Tablet) 10 mg PO BEDTIME [facility]; Protocol Last Admin: 08/11/21 20:05 Dose: 10 mg Documented by: ASHER Montelukast Sodium (Montelukast Sodium 10 Mg Tablet) 10 mg PO DAILY [facility] Last Admin: 08/11/21 08:41 Dose: 10 mg Documented by: PIEDAD Morphine Sulfate (Morphine Sulfate 4 Mg/Ml Cartridge) 1 mg IVPUSH Q4H PRN; Protocol PRN Reason: Pain, SOb Last Admin: 08/11/21 01:05 Dose: 1 mg Documented by: ISHMAEL Omeprazole (Omeprazole 20 Mg Capsule.) 20 mg PO BID [facility] Last Admin: 08/11/21 20:06 Dose: 20 mg Documented by: ASHER Pharmacy Consult (Consult Rx Perform Med Rec) 1 each MISCELLANE ONCE PRN PRN Reason: Consult order Polyethylene Glycol (Polyethylene Glycol 3350 17 Gm Powd.Pack) 17 gm PO DAILY [facility] Last Admin: 08/11/21 08:41 Dose: 17 gm Documented by: PIEDAD Senna (Sennosides 8.6 Mg Tablet) 17.2 mg PO BEDTIME PRN PRN Reason: Constipation Sodium Chloride (0.9 % Sodium Chloride Flush 3 Ml Syringe) 3 ml IVFLUSH QSHIFT [facility] Last Admin: 08/11/21 20:22 Dose: 3 ml Documented by: ASHER Tramadol HCl (Tramadol Hcl 50 Mg Tablet) 50 mg PO BID [facility] Last Admin: 08/11/21 20:06 Dose: 50 mg Documented by: ASHER Labs CBC & Chem 7: 08/12/21 06:16 08/12/21 06:16 Labs: Laboratory Results - last 24 hr 12/24/21 12/24/21 06:16 06:16 MCV 91.9 MCH 28.3 MCHC 30.8 L RDW 14.0 Plt Count 338 D MPV 11.2 Absolute Neuts (auto) 3.8 Absolute Nucleated RBC 0.000 Nucleated RBC % (auto) 0.0 Anion Gap 14 Estim Creat Clear Calc 105.9 Estimated GFR > 60 Fasting Glucose 94 Calcium 8.9 C-Reactive Protein 4.12 H Assessment and Plan (1) Pneumonia due to COVID-19 virus: Status: Acute Assessment and Plan: 55F with known covid presented with myalgias, found to be hypoxic Acute hypoxic respiratory failure secondary to COVID-19 pneumonia complicated by COPD with acute decompensation Wean O2 as tolerated (was desatting to 87% on room air) Decadron day 3 Monitor prognostic labs Schizophrenia with recent inpatient admission Psych appreciated Continue Clozaril and Depakote monitor ANC Quality Stroke Does the patient have a stroke diagnosis?: No VTE Prior VTE?: No VTE Risk Level:: Medical - moderate - high VTE Device Contraindication: Treatment Not Indicated VTE Drug Contraindication: N/A - Med Ordered
[2021-08-12] MEDS: FLUoxetine HCl 20 MG CAPSULE PO (10:31)
[2021-08-12] MEDS: Fluconazole 150 MG TABLET PO (10:31)
[2021-08-12] MEDS: Montelukast Sodium 10 MG TABLET PO (10:31)
[2021-08-12] MEDS: dexAMETHasone sod phosphate 4 MG/ML VIAL 6 MG IVPUSH (10:31)
[2021-08-12] MEDS: cloZAPine 25 MG TABLET 50 MG PO (10:31)
[2021-08-12] MEDS: polyethylene glycoL 3350 17 GM POWD.PACK PO (10:31)
[2021-08-12] MEDS: Omeprazole 20 MG CAPSULE.DR PO ×2 (10:31→21:05)
[2021-08-12] MEDS: 0.9 % Sodium Chloride Flush 3 ML SYRINGE IVFLUSH ×2 (10:32→17:13)
[2021-08-12] MEDS: Fluticasone Propionate 100 MCG BLST.W.DEV 2 PUFF INHALE (19:28)
[2021-08-12] MEDS: cloZAPine 100 MG TABLET 300 MG PO (21:05)
[2021-08-12] MEDS: traMADoL HCL 50 MG TABLET PO (21:06)
[2021-08-12] MEDS: lisinopriL 10 MG TABLET PO (21:06)
[2021-08-12] MEDS: Enoxaparin Sodium 40 MG/0.4 ML SYRINGE SUBCUT (21:06)
[2021-08-12] MEDS: Divalproex Sodium ER 500 MG TAB.ER.24H 1500 MG PO (21:06)
[2021-08-12] MEDS: clonazePAM 1 MG TABLET PO (21:06)
[2021-08-13] VITALS (7 sets, daily range): BP systolic 136–170; BP diastolic 64–92; PULSE 58–80; RESP 18–22; TEMP 35.5–37; O2SAT 93–99
[2021-08-13] MEDS: 0.9 % Sodium Chloride Flush 3 ML SYRINGE IVFLUSH ×4 (00:06→21:03)
[2021-08-13 08:34] LABS: Neutrophils Absolute Auto 4.9 x10*3/uL (2.0-8.3); WBCANC 9.2 X10*3/uL
[2021-08-13 08:35] LABS: Hemoglobin 10.6 g/dl (12.0-16.0); Mean Corpuscular HGB Conc 31.2 g/dl (31.0-35.0); Mean Corpuscular Hemoglobin 28.3 pg (27.0-33.0); Mean Corpuscular Volume 90.9 fL (80.0-98.0); NRBC Pct Auto 0.3 /100WBC (0.0-0.2); Platelet Count 408 X10*3/uL (160-400); Red Blood Count 3.74 X10*6/uL (4.20-5.50); Red Cell Distribution Width 13.9 % (11.0-16.0); White Blood Count 9.5 X10*3/uL (4.8-10.8)
[2021-08-13 08:51] LABS: Anion Gap 12 (12-20); Blood Urea Nitrogen 15 mg/dL (9-16); C Reactive Protein 1.96 mg/dL (< or = 0.50); Calcium 9.6 mg/dL (8.4-10.2); Carbon Dioxide 32 mmol/L (22-29); Chloride 101 mmol/L (96-108); Creatinine Clr Calc Pharmacy 102.4; Estimated Glomerular Filt Rate > 60; Glucose Fasting 113 mg/dL (60-99); Potassium 4.3 mmol/L (3.3-5.1); Sodium 141 mmol/L (135-145)
[2021-08-13 08:57] LABS: Lactate Dehydrogenase 241 U/L (122-220)
[2021-08-13] MEDS: dexAMETHasone sod phosphate 4 MG/ML VIAL 6 MG IVPUSH (09:49)
[2021-08-13] MEDS: polyethylene glycoL 3350 17 GM POWD.PACK PO (09:49)
[2021-08-13] MEDS: FLUoxetine HCl 20 MG CAPSULE PO (09:50)
[2021-08-13] MEDS: traMADoL HCL 50 MG TABLET PO ×2 (09:50→21:02)
[2021-08-13] MEDS: clonazePAM 0.5 MG TABLET PO (09:51)
[2021-08-13] MEDS: Montelukast Sodium 10 MG TABLET PO (09:51)
[2021-08-13] MEDS: cloZAPine 25 MG TABLET 50 MG PO (09:51)
[2021-08-13] MEDS: Omeprazole 20 MG CAPSULE.DR PO ×2 (09:51→21:01)
--- NOTE | 2021-08-13 10:25 | P.PNIM_ITS ---
Subjective Subjective Date of Service: 08/13/21 Interval History: cc: myalgias interval hsitory: sleepy, achy Cardiovascular Cardiovascular: Reports no additional cardiovascular complaints Respiratory Respiratory: Reports no additional respiratory complaints Physical Exam Vital Signs: Vital Signs: Last Vital Signs Temp 96 F L 08/13/21 07:19 Pulse 72 08/13/21 07:19 Resp 22 H 08/13/21 07:19 BP 147/86 H 08/13/21 07:19 Pulse Ox 94 08/13/21 07:19 BMI result Body Mass Index 36.1 General: AO X 3, no acute distress Resp:? diminishedl, mild accessory muscles used CVS: S1,S2,RRR GI: soft, non tender, non distended Neuro:? motor grossly intact, alert Psych: flat affect, appropriate insight? Objective Data Active Medications Acetaminophen (Acetaminophen 325 Mg Tablet) 650 mg PO Q6H PRN PRN Reason: Pain, Mild (Pain Scale 1-3) Clonazepam (Clonazepam 0.5 Mg Tablet) 0.5 mg PO DAILY [facility] Last Admin: 08/13/21 09:51 Dose: 0.5 mg Documented by: GABINO Clonazepam (Clonazepam 1 Mg Tablet) 1 mg PO BEDTIME [facility] Last Admin: 08/12/21 21:06 Dose: 1 mg Documented by: SERINA Clozapine (Clozapine 25 Mg Tablet) 50 mg PO DAILY [facility] Last Admin: 08/13/21 09:51 Dose: 50 mg Documented by: GABINO Clozapine (Clozapine 100 Mg Tablet) 300 mg PO BEDTIME [facility] Last Admin: 08/12/21 21:05 Dose: 300 mg Documented by: SERINA Dexamethasone Sodium Phosphate (Dexamethasone Sod Phosphate 4 Mg/Ml Vial) 6 mg IVPUSH DAILY [facility] Last Admin: 08/13/21 09:49 Dose: 6 mg Documented by: GABINO Divalproex Sodium (Divalproex Sodium Er 500 Mg Tab.Er.24h) 1,500 mg PO BEDTIME [facility] Last Admin: 08/12/21 21:06 Dose: 1,500 mg Documented by: SERINA Enoxaparin Sodium (Enoxaparin Sodium 40 Mg/0.4 Ml Syringe) 40 mg SUBCUT Q24H [facility] Last Admin: 08/12/21 21:06 Dose: 40 mg Documented by: SERINA Fluconazole (Fluconazole 150 Mg Tablet) 150 mg PO Fr [facility] Last Admin: 08/12/21 10:31 Dose: 150 mg Documented by: REGINALDO Fluoxetine HCl (Fluoxetine Hcl 20 Mg Capsule) 20 mg PO DAILY [facility] Last Admin: 08/13/21 09:50 Dose: 20 mg Documented by: GABINO Fluticasone Propionate (Fluticasone Propionate 100 Mcg Blst.W.Dev) 2 puff I NHALE RBID [facility] Last Admin: 08/13/21 08:45 Dose: Not Given Documented by: OLVIN Non-Admin Reason: Med Not Available Lisinopril (Lisinopril 10 Mg Tablet) 10 mg PO BEDTIME [facility]; Protocol Last Admin: 08/12/21 21:06 Dose: 10 mg Documented by: SERINA Montelukast Sodium (Montelukast Sodium 10 Mg Tablet) 10 mg PO DAILY [facility] Last Admin: 08/13/21 09:51 Dose: 10 mg Documented by: GABINO Morphine Sulfate (Morphine Sulfate 4 Mg/Ml Cartridge) 1 mg IVPUSH Q4H PRN; Protocol PRN Reason: Pain, SOb Last Admin: 08/11/21 01:05 Dose: 1 mg Documented by: ISHMAEL Omeprazole (Omeprazole 20 Mg Capsule.) 20 mg PO BID [facility] Last Admin: 08/13/21 09:51 Dose: 20 mg Documented by: GABINO Pharmacy Consult (Consult Rx Perform Med Rec) 1 each MISCELLANE ONCE PRN PRN Reason: Consult order Polyethylene Glycol (Polyethylene Glycol 3350 17 Gm Powd.Pack) 17 gm PO DAILY [facility] Last Admin: 08/13/21 09:49 Dose: 17 gm Documented by: GABINO Senna (Sennosides 8.6 Mg Tablet) 17.2 mg PO BEDTIME PRN PRN Reason: Constipation Sodium Chloride (0.9 % Sodium Chloride Flush 3 Ml Syringe) 3 ml IVFLUSH QSHIFT [facility] Last Admin: 08/13/21 09:49 Dose: 3 ml Documented by: GABINO Tramadol HCl (Tramadol Hcl 50 Mg Tablet) 50 mg PO BID [facility] Last Admin: 08/13/21 09:50 Dose: 50 mg Documented by: GABINO Labs CBC & Chem 7: 08/13/21 08:01 08/13/21 08:01 Labs: Laboratory Results - last 24 hr 08/13/21 08/13/21 08/13/21 08:01 08:01 08:01 MCV 90.9 MCH 28.3 MCHC 31.2 RDW 13.9 Plt Count 408 H MPV 11.0 Absolute Neuts (auto) 4.9 Absolute Nucleated RBC 0.030 H Nucleated RBC % (auto) 0.3 H Anion Gap 12 Estim Creat Clear Calc 102.4 Estimated GFR > 60 Fasting Glucose 113 H Calcium 9.6 D Lactate Dehydrogenase 241 H C-Reactive Protein 1.96 H Assessment and Plan (1) Pneumonia due to COVID-19 virus: Status: Acute Assessment and Plan: 55F with known covid presented with myalgias, found to be hypoxic Acute hypoxic respiratory failure secondary to COVID-19 pneumonia complicated by COPD with acute decompensation Wean O2 as tolerated (was desatting to 87% on room air) Decadron day 4 Monitor prognostic labs -improving Schizophrenia with recent inpatient admission Psych appreciated Continue Clozaril and Depakote monitor ANC Quality Stroke Does the patient have a stroke diagnosis?: No VTE Prior VTE?: No VTE Risk Level:: Medical - moderate - high VTE Device Contraindication: Treatment Not Indicated VTE Drug Contraindication: N/A - Med Ordered
[2021-08-13] MEDS: lisinopriL 10 MG TABLET PO (21:01)
[2021-08-13] MEDS: clonazePAM 1 MG TABLET PO (21:01)
[2021-08-13] MEDS: Divalproex Sodium ER 500 MG TAB.ER.24H 1500 MG PO (21:02)
[2021-08-13] MEDS: Enoxaparin Sodium 40 MG/0.4 ML SYRINGE SUBCUT (21:02)
[2021-08-13] MEDS: cloZAPine 100 MG TABLET 300 MG PO (21:02)
[2021-08-14] VITALS (7 sets, daily range): BP systolic 118–188; BP diastolic 64–91; PULSE 56–86; RESP 14–20; TEMP 34.5–36.7; O2SAT 90–98
[2021-08-14] MEDS: 0.9 % Sodium Chloride Flush 3 ML SYRINGE IVFLUSH ×3 (08:30→23:43)
[2021-08-14] MEDS: FLUoxetine HCl 20 MG CAPSULE PO (08:31)
[2021-08-14] MEDS: Montelukast Sodium 10 MG TABLET PO (08:31)
[2021-08-14] MEDS: Omeprazole 20 MG CAPSULE.DR PO ×2 (08:31→22:13)
[2021-08-14] MEDS: traMADoL HCL 50 MG TABLET PO ×2 (08:31→22:13)
[2021-08-14] MEDS: clonazePAM 0.5 MG TABLET PO (08:31)
[2021-08-14] MEDS: dexAMETHasone sod phosphate 4 MG/ML VIAL 6 MG IVPUSH (08:32)
[2021-08-14] MEDS: cloZAPine 25 MG TABLET 50 MG PO (08:32)
[2021-08-14] MEDS: polyethylene glycoL 3350 17 GM POWD.PACK PO (08:32)
[2021-08-14 08:37] LABS: Neut%MD 49.3 %; Neutrophils Absolute Auto 4.5 x10*3/uL (2.0-8.3); WBCANC 9.1 X10*3/uL
--- NOTE | 2021-08-14 09:56 | P.PNIM_ITS ---
Subjective Subjective Date of Service: 08/14/21 Interval History: cc: myalgias interval history: improving Cardiovascular Cardiovascular: Reports no additional cardiovascular complaints Respiratory Respiratory: Reports no additional respiratory complaints Physical Exam Vital Signs: Vital Signs: Last Vital Signs Temp 97.5 F 08/14/21 08:00 Pulse 66 08/14/21 08:00 Resp 18 08/14/21 08:00 BP 188/86 H 08/14/21 08:00 Pulse Ox 97 08/14/21 08:00 BMI result Body Mass Index 36.1 General: AO X 3, no acute distress Resp:? diminishedl, mild accessory muscles used CVS: S1,S2,RRR GI: soft, non tender, non distended Neuro:? motor grossly intact, alert Psych: flat affect, appropriate insight? Objective Data Active Medications Acetaminophen (Acetaminophen 325 Mg Tablet) 650 mg PO Q6H PRN PRN Reason: Pain, Mild (Pain Scale 1-3) Clonazepam (Clonazepam 0.5 Mg Tablet) 0.5 mg PO DAILY [facility] Last Admin: 08/14/21 08:31 Dose: 0.5 mg Documented by: DASH Clonazepam (Clonazepam 1 Mg Tablet) 1 mg PO BEDTIME [facility] Last Admin: 08/13/21 21:01 Dose: 1 mg Documented by: DENISSE Clozapine (Clozapine 25 Mg Tablet) 50 mg PO DAILY [facility] Last Admin: 08/14/21 08:32 Dose: 50 mg Documented by: DASH Clozapine (Clozapine 100 Mg Tablet) 300 mg PO BEDTIME [facility] Last Admin: 08/13/21 21:02 Dose: 300 mg Documented by: DENISSE Dexamethasone Sodium Phosphate (Dexamethasone Sod Phosphate 4 Mg/Ml Vial) 6 mg IVPUSH DAILY [facility] Last Admin: 08/14/21 08:32 Dose: 6 mg Documented by: DASH Divalproex Sodium (Divalproex Sodium Er 500 Mg Tab.Er.24h) 1,500 mg PO BEDTIME [facility] Last Admin: 08/13/21 21:02 Dose: 1,500 mg Documented by: DENISSE Enoxaparin Sodium (Enoxaparin Sodium 40 Mg/0.4 Ml Syringe) 40 mg SUBCUT Q24H [facility] Last Admin: 08/13/21 21:02 Dose: 40 mg Documented by: DENISSE Fluconazole (Fluconazole 150 Mg Tablet) 150 mg PO Fr [facility] Last Admin: 08/12/21 10:31 Dose: 150 mg Documented by: REGINALDO Fluoxetine HCl (Fluoxetine Hcl 20 Mg Capsule) 20 mg PO DAILY [facility] Last Admin: 08/14/21 08:31 Dose: 20 mg Documented by: DASH Fluticasone Propionate (Fluticasone Propionate 100 Mcg Blst.W.Dev) 2 puff INH MICHAEL RBID [facility] Last Admin: 08/14/21 08:32 Dose: Not Given Documented by: DASH Non-Admin Reason: Patient Refused Lisinopril (Lisinopril 10 Mg Tablet) 10 mg PO BEDTIME [facility]; Protocol Last Admin: 08/13/21 21:01 Dose: 10 mg Documented by: DENISSE Montelukast Sodium (Montelukast Sodium 10 Mg Tablet) 10 mg PO DAILY [facility] Last Admin: 08/14/21 08:31 Dose: 10 mg Documented by: DASH Morphine Sulfate (Morphine Sulfate 4 Mg/Ml Cartridge) 1 mg IVPUSH Q4H PRN; Protocol PRN Reason: Pain, SOb Last Admin: 08/11/21 01:05 Dose: 1 mg Documented by: ISHMAEL Omeprazole (Omeprazole 20 Mg Capsule.Dr) 20 mg PO BID [facility] Last Admin: 08/14/21 08:31 Dose: 20 mg Documented by: DASH Pharmacy Consult (Consult Rx Perform Med Rec) 1 each MISCELLANE ONCE PRN PRN Reason: Consult order Polyethylene Glycol (Polyethylene Glycol 3350 17 Gm Powd.Pack) 17 gm PO DAILY [facility] Last Admin: 08/14/21 08:32 Dose: 17 gm Documented by: DASH Senna (Sennosides 8.6 Mg Tablet) 17.2 mg PO BEDTIME PRN PRN Reason: Constipation Sodium Chloride (0.9 % Sodium Chloride Flush 3 Ml Syringe) 3 ml IVFLUSH QSHIFT [facility] Last Admin: 08/14/21 08:30 Dose: 3 ml Documented by: DASH Tramadol HCl (Tramadol Hcl 50 Mg Tablet) 50 mg PO BID [facility] Last Admin: 08/14/21 08:31 Dose: 50 mg Documented by: DASH Labs CBC & Chem 7: 08/13/21 08:01 08/13/21 08:01 Labs: Laboratory Results - last 24 hr 08/14/21 08:23 Absolute Neuts (auto) 4.5 Assessment and Plan (1) Pneumonia due to COVID-19 virus: Status: Acute Assessment and Plan: 55F with known covid presented with myalgias, found to be hypoxic Acute hypoxic respiratory failure secondary to COVID-19 pneumonia complicated by COPD with acute decompensation Wean O2 as tolerated ( previously desatting to 87% on room air) Decadron day 5 Monitor prognostic labs -improving Schizophrenia with recent inpatient admission Psych appreciated Continue Clozaril and Depakote monitor ANC Quality Stroke Does the patient have a stroke diagnosis?: No VTE Prior VTE?: No VTE Risk Level:: Medical - moderate - high VTE Device Contraindication: Treatment Not Indicated VTE Drug Contraindication: N/A - Med Ordered
[2021-08-14] MEDS: Fluticasone Propionate 100 MCG BLST.W.DEV 2 PUFF INHALE (20:28)
[2021-08-14] MEDS: cloZAPine 100 MG TABLET 300 MG PO (22:11)
[2021-08-14] MEDS: lisinopriL 10 MG TABLET PO (22:12)
[2021-08-14] MEDS: clonazePAM 1 MG TABLET PO (22:12)
[2021-08-14] MEDS: Divalproex Sodium ER 500 MG TAB.ER.24H 1500 MG PO (22:12)
[2021-08-14] MEDS: Enoxaparin Sodium 40 MG/0.4 ML SYRINGE SUBCUT (22:14)
[2021-08-14] MEDS: Sennosides 8.6 MG TABLET 17.2 MG PO (22:21)
[2021-08-15] VITALS: BP 139/69; PULSE 69; RESP 17; TEMP 36.2; O2SAT 98
[2021-08-15 04:00] VITALS: BP 158/77; PULSE 64; RESP 17; TEMP 36.6; O2SAT 96
[2021-08-15 06:52] LABS: Hematocrit 36.3 % (37.0-47.0); Hemoglobin 11.3 g/dl (12.0-16.0); Mean Corpuscular HGB Conc 31.1 g/dl (31.0-35.0); Mean Corpuscular Hemoglobin 28.2 pg (27.0-33.0); Mean Corpuscular Volume 90.5 fL (80.0-98.0); Mean Platelet Volume 11.1 fL (9.4-12.3); NRBC Pct Auto 0.7 /100WBC (0.0-0.2); Platelet Count 454 X10*3/uL (160-400); Red Blood Count 4.01 X10*6/uL (4.20-5.50); Red Cell Distribution Width 13.9 % (11.0-16.0); White Blood Count 9.1 X10*3/uL (4.8-10.8)
[2021-08-15 06:53] LABS: Neut%MD 49.5 %; Neutrophils Absolute Auto 4.4 x10*3/uL (2.0-8.3)
[2021-08-15 07:11] LABS: Anion Gap 14 (12-20); Blood Urea Nitrogen 13 mg/dL (9-16); C Reactive Protein 0.61 mg/dL (< or = 0.50); Calcium 9.8 mg/dL (8.4-10.2); Carbon Dioxide 30 mmol/L (22-29); Chloride 102 mmol/L (96-108); Creatinine Clr Calc Pharmacy 109.6; D Dimer High Sensitivity < 150 NG/ML; Estimated Glomerular Filt Rate > 60; Glucose Fasting 98 mg/dL (60-99); Lactate Dehydrogenase 220 U/L (122-220); Potassium 4.6 mmol/L (3.3-5.1); Sodium 141 mmol/L (135-145)
[2021-08-15 08:00] VITALS: BP 148/70; PULSE 66; RESP 20; TEMP 36.3; O2SAT 100
[2021-08-15] MEDS: FLUoxetine HCl 20 MG CAPSULE PO (09:30)
[2021-08-15] MEDS: cloZAPine 25 MG TABLET 50 MG PO (09:31)
[2021-08-15] MEDS: dexAMETHasone sod phosphate 4 MG/ML VIAL 6 MG IVPUSH (09:31)
[2021-08-15] MEDS: Montelukast Sodium 10 MG TABLET PO (09:31)
[2021-08-15] MEDS: Omeprazole 20 MG CAPSULE.DR PO (09:31)
[2021-08-15] MEDS: 0.9 % Sodium Chloride Flush 3 ML SYRINGE IVFLUSH (09:31)
[2021-08-15] MEDS: clonazePAM 0.5 MG TABLET PO (09:31)
[2021-08-15] MEDS: polyethylene glycoL 3350 17 GM POWD.PACK PO (09:32)
[2021-08-15] MEDS: traMADoL HCL 50 MG TABLET PO (09:32)
--- NOTE | 2021-08-15 11:02 | PM.DS ---
DS: Providers Provider Date of Service: 08/15/21 Date of admission: 08/10/21 22:23 Primary care physician: Unknown Physician Consults: 08/10/21 22:22 Consult to Infectious Diseases Routine Consulting Provider: Mayra Méndez Reason for consultation: covid pna 08/11/21 11:40 Consult to Psychiatry Routine Consulting Provider: Psych Covering Reason for consultation: recent psych admission was on ?clozaril DS: Diagnosis Discharge Diagnosis (1) Pneumonia due to COVID-19 virus: Status: Acute DS: Summary Hospital Course Hospital Course: Patient was admitted for acute hypoxic respiratory failure secondary to COVID pneumonia with acute decompensation of COPD. she was treated with IV Decadron and was able to be weaned off oxygen. Her symptoms significantly improved. She will be discharged home on 5 more days of Decadron. Time Spent with Patient Time attestation: Total time spent providing and/or coordinating discharge services: Discharge coordination time: Greater than 30 minutes Quality: Stroke Does the patient have a stroke diagnosis?: No Physical Exam Vital Signs: Vital Signs: Last Vital Signs Temp 97.3 F 08/15/21 08:00 Pulse 66 08/15/21 08:00 Resp 20 08/15/21 08:00 BP 148/70 H 08/15/21 08:00 Pulse Ox 100 08/15/21 08:00 BMI result Body Mass Index 36.1 General: AO X 3, no acute distress Resp: CTA bilateral, no accessory muscles used CVS: S1,S2,RRR GI: soft, non tender, non distended Neuro: motor grossly intact, alert Psych: appropriate affect, appropriate insight DS: Data Data Completed and Pending Labs on day of discharge: Laboratory Results - last 24 hr 08/15/21 08/15/21 08/15/21 06:06 06:06 06:06 WBC 9.1 RBC 4.01 L Hgb 11.3 L Hct 36.3 L MCV 90.5 MCH 28.2 MCHC 31.1 RDW 13.9 Plt Count 454 H MPV 11.1 Absolute Neuts (auto) 4.4 Absolute Nucleated RBC 0.060 H Nucleated RBC % (auto) 0.7 H D-Dimer High Sensitivty < 150 Sodium Potassium Chloride Carbon Dioxide Anion Gap BUN Creatinine Estim Creat Clear Calc Estimated GFR Fasting Glucose Calcium Lactate Dehydrogenase C-Reactive Protein 08/15/21 06:06 WBC RBC Hgb Hct MCV MCH MCHC RDW Plt Count MPV Absolute Neuts (auto) Absolute Nucleated RBC Nucleated RBC % (auto) D-Dimer High Sensitivty Sodium 141 Potassium 4.6 Chloride 102 Carbon Dioxide 30 H Anion Gap 14 BUN 13 Creatinine 0.58 Estim Creat Clear Calc 109.6 Estimated GFR > 60 Fasting Glucose 98 Calcium 9.8 Lactate Dehydrogenase 220 C-Reactive Protein 0.61 H Discharge Plan Discharge Patient Disposition: Home, Self-Care Discharge Diagnosis: covid Referrals: Physician,Unknown J [Primary Care Provider] - 1 Week Discharge Medications: Continued lactulose [Generlac] 10 gram/15 mL solution 15 ml PO DAILY PRN (Reason: Constipation) RF: 0 albuterol sulfate 2.5 mg /3 mL (0.083 %) solution for nebulization 2.5 mg inhalation TID 30 Days Qty: 270 RF: 0 clozapine 100 mg tablet 300 mg PO BEDTIME 30 Days Qty: 90 RF: 0 lisinopril 10 mg tablet 10 mg PO QPM 30 Days Qty: 30 RF: 0 divalproex 500 mg tablet extended release 24 hr 1,500 mg PO BEDTIME 30 Days Qty: 90 RF: 0 omeprazole 20 mg capsule,delayed release(DR/EC) 20 mg PO BID 30 Days Qty: 60 RF: 0 montelukast 10 mg tablet 10 mg PO DAILY 30 Days Qty: 30 RF: 0 clozapine 25 mg tablet 50 mg PO QAM 30 Days Qty: 60 RF: 0 fluoxetine 20 mg capsule 20 mg PO QAM 30 Days Qty: 30 RF: 0 Flovent HFA 110 mcg/actuation HFA aerosol inhaler 2 puff PO BID 30 Days Qty: 12 RF: 0 sennosides [senna] 8.6 mg tablet 2 tab PO BEDTIME RF: 0 fluconazole 150 mg tablet 1 tab PO FR RF: 0 docusate sodium 100 mg capsule 1 cap PO BID RF: 0 bisacodyl 5 mg tablet,delayed release (DR/EC) 2 tab PO BEDTIME RF: 0 albuterol sulfate [ProAir HFA] 90 mcg/actuation HFA aerosol inhaler 2 puff PO Q4-6H PRN (Reason: Wheezing) RF: 0 clotrimazole 1 % cream 1 appl topical BID RF: 0 clonazepam 1 mg Tablet 0.5 mg PO DAILY RF: 0 clonazepam [Klonopin] 1 mg Tablet 1 mg PO BEDTIME RF: 0 tramadol 50 mg Tablet 50 mg PO BID RF: 0 polyethylene glycol 3350 17 gram/dose Powder 17 g PO DAILY PRN (Reason: Constipation) RF: 0 Discharge Orders: Discharge Order (Routine); Ordered 08/15/21 Ordered By: Josh Harvey Diet: advance to usual diet Activity on Discharge: As tolerated Stand Alone Forms: Patient Portal Discharge page Care Plan Goals: recovery Health Concerns: covid Plan of Treatment: isolation until 10 days from symptom onset Assessment: see above
[2021-08-15 11:45] VITALS: BP 135/66; PULSE 66; RESP 20; TEMP 36.7; O2SAT 94
--- NOTE | 2021-08-15 12:42 | MHC.CM.PN ---
Female 55 DX Covid+ Is discharge today. She will return to her [facility]. [facility] has been notified of the discharge. She will provide transportation back to the home. She will come @ 1PM. [facility] was called, no answer. A detailed VM was left for the [facility] worker. No services have been ordered for Home care.
== END 2021-08-15 13:44 | disposition home or self-care (01) | DRG 137 ==
LOC: HO.ED 22:36 → HO.EDOVER 22:40 → HO.IMC 08-11 16:56
PROVIDERS: Admitting Provider Hospitalist; Emergency Provider Student in an Organized Health Care Education/Training Program; Visit Provider Internal Medicine
DX: U07.1 COVID-19 (principal); J96.01 Acute respiratory failure with hypoxia; J12.82 Pneumonia due to coronavirus disease 2019; E78.5 Hyperlipidemia, unspecified; E86.0 Dehydration; I10 Essential (primary) hypertension; E66.01 Morbid (severe) obesity due to excess calories; Z68.36 Body mass index [BMI] 36.0-36.9, adult; J44.1 Chronic obstructive pulmonary disease with (acute) exacerbation; J44.0 Chronic obstructive pulmonary disease with (acute) lower respiratory infection; F20.9 Schizophrenia, unspecified; Z79.891 Long term (current) use of opiate analgesic; Z79.899 Other long term (current) drug therapy
CPT/HCPCS: 36415; 71045; 74018; 80048; 80076; 82803; 83615; 84145; 84484; 85025; 85027; 85048; 85379; 86140; 87635; 93005; 94640; 96361; 96374; 99285; J1100; J1650; J2270; J2405

== ENCOUNTER 2021-09-21 13:18 | Outpatient (REF) | payer MEDICAID, SELFPAY ==
[2021-09-21 13:38] LABS: MANUAL DIFF FLAG NO
[2021-09-21 13:44] LABS: Basophils Percent Auto 0.2 % (0-2); Eosinophils Absolute Auto 0.1 X10*3/uL (0.0-0.4); Eosinophils Percent Auto 0.7 % (0-4); Hematocrit 38.9 % (37.0-47.0); Hemoglobin 12.1 g/dl (12.0-16.0); Imm Gran Abs Auto 0.04 X10*3/uL (0.00-0.03); Imm Gran Pct Auto 0.4 % (0.0-0.4); Lymphocytes Absolute Auto 3.1 X10*3/uL (1.2-4.9); Mean Corpuscular HGB Conc 31.1 g/dl (31.0-35.0); Mean Corpuscular Hemoglobin 28.9 pg (27.0-33.0); Mean Corpuscular Volume 93.1 fL (80.0-98.0); Monocytes Absolute Auto 0.7 X10*3/uL (0.1-1.2); Neutrophils Absolute Auto 5.2 x10*3/uL (2.0-8.3); Neutrophils Percent Auto 56.7 % (45-73); Platelet Count 255 X10*3/uL (160-400); Red Blood Count 4.18 X10*6/uL (4.20-5.50); Red Cell Distribution Width 14.8 % (11.0-16.0); White Blood Count 9.2 X10*3/uL (4.8-10.8)
== END 2021-09-21 13:19 | disposition home or self-care (01) ==
LOC: HO.LABR 13:18
PROVIDERS: Visit Provider Clinical Nurse Specialist Psychiatric/Mental Health, Adult
DX: Z79.899 Other long term (current) drug therapy (principal)
CPT/HCPCS: 36415; 85025

== ENCOUNTER 2021-09-27 13:23 | Inpatient (IN) | payer MEDICAID, OTHER, SELFPAY ==
--- NOTE | ~2021-09-27 | XR_ITS ---
EXAMINATION: XR ABDOMEN KUB CLINICAL INDICATION: Constipation. COMPARISON: KUB 09/29/2021 TECHNIQUE: AP view of the abdomen. FINDINGS: There is a significantly large amount of stool seen throughout the colon without any bowel distention. There is no organomegaly. No radiopaque calculi. Visualized bones are grossly unremarkable.. XR/XR KUB IMPRESSION: Significant constipation. The findings are worse compared to previous study 09/29/2021
--- NOTE | ~2021-09-27 | XR_ITS ---
EXAMINATION: XR ABDOMEN KUB CLINICAL INDICATION: Constipation COMPARISON: None TECHNIQUE: AP view of the abdomen. FINDINGS: Large volume of stool throughout the colon. Largest collection of stool is in the pelvis. No abnormally dilated bowel loop. Nonobstructive bowel pattern. No radiopaque urinary calculus. XR/XR KUB IMPRESSION: Large volume of stool throughout colon.
--- NOTE | 2021-09-27 14:47 | ED.PSYCH ---
HPI - Psych General Chief Complaint: Psychiatric Symptoms Stated Complaint: Crisis Time Seen by Provider: 09/27/21 14:22 Source: patient Mode of arrival: ambulatory Limitations: no limitations History of Present Illness HPI Narrative: 56-year-old female with history of schizophrenia here with reports of hearing voices telling her to cut herself and kill her feeling depressed, seeing bad things-snakes on the floor, red river full of blood for 3 days. Patient denies any homicidal ideations. She tells me she has been compliant with her home medications. No physical complaints Related Data Home Medications Medication Instructions Recorded Confirmed lactulose 10 gram/15 mL oral 15 ml PO DAILY PRN 07/07/21 08/11/21 solution (Generlac) albuterol sulfate 90 mcg/actuation 2 puff PO Q4-6H PRN 08/11/21 08/11/21 aerosol inhaler (ProAir HFA) bisacodyl 5 mg tablet,delayed 2 tab PO BEDTIME 08/11/21 08/11/21 release clonazepam 1 mg tablet 0.5 mg PO DAILY 08/11/21 08/11/21 clonazepam 1 mg tablet (Klonopin) 1 mg PO BEDTIME 08/11/21 08/11/21 clotrimazole 1 % topical cream 1 appl TOPICAL BID 08/11/21 08/11/21 docusate sodium 100 mg capsule 1 cap PO BID 08/11/21 08/11/21 fluconazole 150 mg tablet 1 tab PO FR 08/11/21 08/11/21 polyethylene glycol 3350 17 17 g PO DAILY PRN 08/11/21 08/11/21 gram/dose oral powder sennosides 8.6 mg tablet (senna) 2 tab PO BEDTIME 08/11/21 08/11/21 tramadol 50 mg tablet 50 mg PO BID 08/11/21 08/11/21 Previous Rx's Medication Instructions Recorded albuterol sulfate 2.5 mg (3 mL) INHALATION TID 30 07/12/21 Days #270 ml clozapine 100 mg tablet 300 mg PO BEDTIME 30 Days #90 tab 07/12/21 clozapine 25 mg tablet 50 mg PO QAM 30 Days #60 tab 07/12/21 divalproex 500 mg tablet,extended 1,500 mg PO BEDTIME 30 Days #90 tab 07/12/21 release 24 hr fluoxetine 20 mg capsule 20 mg PO QAM 30 Days #30 cap 07/12/21 fluticasone propionate 110 2 puff PO BID 30 Days #12 g 07/12/21 mcg/actuation HFA aerosol inhaler (Flovent HFA) lisinopril 10 mg tablet 10 mg PO QPM 30 Days #30 tab 07/12/21 montelukast 10 mg tablet 10 mg PO DAILY 30 Days #30 tab 07/12/21 omeprazole 20 mg capsule,delayed 20 mg PO BID 30 Days #60 cap 07/12/21 release dexamethasone 6 mg tablet 6 mg PO DAILY #5 tab 08/15/21 Allergies Allergy/AdvReac Type Severity Reaction Status Date / Time diazepam [From Valium] Allergy Unknown Unknown Verified 08/10/21 20:04 haloperidol [From Haldol] Allergy Unknown Unknown Verified 08/10/21 20:04 Penicillins Allergy Unknown Unknown Verified 08/10/21 20:04 risperidone [From Risperdal] Allergy Unknown Unknown Verified 08/10/21 20:04 aspirin [Aspirin] AdvReac Intermediate Vomiting Verified 08/10/21 20:04 trazodone [TRAZODONE] AdvReac Intermediate NAUSEA & Verified 08/10/21 20:04 VOMITING Review of Systems Review of Systems: Yes all other systems are reviewed and are negative Constitutional: Constitutional: Reports no additional constitutional complaints, Denies body ache(s), Denies chills, Denies fever(s), Denies headache(s) and Denies weakness Eyes: Eyes: Reports no additional eye complaints and Denies change in vision ENT: Reports system reviewed and no additional complaints, except as documented, Denies dizziness, Denies headache(s), Denies nasal congestion, Denies nasal discharge and Denies neck pain Cardiovascular: Cardiovascular: Reports no additional cardiovascular complaints, Denies chest pain, Denies leg edema and Denies dyspnea Respiratory: Respiratory: Reports no additional respiratory complaints, Denies cough and Denies dyspnea Gastrointestinal: Gastrointestinal: Reports no additional gastrointestinal complaints, Denies abdominal pain, Denies diarrhea, Denies nausea and Denies vomiting Genitourinary: Genitourinary: Reports no additional female genitourinary complaints and Denies urinary incontinence Musculoskeletal: Musculoskeletal: Reports no additional musculoskeletal complaints, Denies back pain, Denies arthralgias, Denies joint swelling, Denies neck pain, Denies numbness and Denies tingling Integumentary/Breasts: Skin/Breast: Reports system reviewed and no additional complaints, except as docu and Denies rash Neurologic: Reports system reviewed and no additional complaints, except as documented, Denies Abnormal speech present, Denies dizziness, Denies headache(s), Denies numbness, Denies tingling and Denies weakness Psychiatric: Psychiatric: Denies anxiety, Reports depression, Reports paranoia, Reports visual hallucinations, Reports hallucinations, Denies homicidal ideation and Reports suicidal ideation [facility] Past Medical History Attestation statement: The following information was validated with the patient. Source: old records reviewed and nursing notes reviewed Medical History Anxiety Asthma Chronic mental illness COPD (chronic obstructive pulmonary disease) Hyperlipidemia Morbid obesity due to excess calories Schizophrenia Surgical History H/O right knee surgery History of appendectomy History of tubal ligation Family History Family History Father Throat cancer Mother CVA (cerebral vascular accident) Brother Drug overdose Sister No problems noted. Sister No problems noted. Son No problems noted. Son No problems noted. Social History 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: Friend(s) Household Members Other:: Lanny Ha (foster Mom) Housing: House Do you presently have visiting nurse or other home services: No Unable to assess alcohol history related to: Unknown Alcohol intake: unknown Patient Tobacco Use Status: Current everyday Tobacco user Tobacco use type: Cigarette Cigarettes Per Day: 10 e-Cigarette/Vaping Use: Never Used Second Hand Smoke Exposure: No Advance Directives: No Advance Directives Information Provided: No Advance Directives Date on File: 03/03/14 Patient : No service: No Current occupational status: disabled Sexual orientation: Straight/Heterosexual Physical Exam Vital Signs: Vital Signs: Last Vital Signs Temp 97 F 09/27/21 17:06 Pulse 94 09/27/21 17:06 Resp 20 09/27/21 17:06 BP 123/72 09/27/21 17:06 Pulse Ox 96 09/27/21 17:06 BMI result Body Mass Index 33.1 Const: General: cooperative, healthy appearing, comfortable and no acute distress Orientation/consciousness: patient oriented x3 Limitations: no limitations HENMT: Head: Yes normal to inspection Ears: hearing grossly normal bilaterally General nose exam: Normal external nose present Face and sinus: Yes normal facial exam Mouth: Normal oral and palatal mucosa present Throat: Yes posterior oropharynx normal Eyes: General: appearance normal, both eyes and all related structures Pupils: Equal, round and reactive pupils present Neck: Neck: Yes normal visual inspection Chest: Chest palpation & inspection: normal inspection of the chest Resp: Effort & Inspection: normal respiratory effort Auscultation: clear to auscultation bilaterally Cardio: Rate: regular rate Rhythm: regular rhythm Peripheral pulses: Peripheral pulses 2+ throughout GI: Inspection: Yes normal to inspection Palpation (GI): Soft to palpation and nontender Auscultation: normal bowel sounds Back/Spine/Pelvis: Thoracic/Lumbar Spine: thoracic and lumbar spine normal to inspection Skin: General skin exam: no rashes or lesions noted Neuro: General: patient oriented x3, no focal motor deficits and normal sensation to monofilament Cranial nerves: Yes CN's II-XII intact bilaterally and Yes Equal, round and reactive pupils present Cognition (Neuro): normal cognition Speech: No Abnormal speech present Gait exam (Neuro): Normal gait present Motor exam (neuro): 5/5 motor strength present throughout Extrem: General: Yes normal to inspection Course Course Course Narrative: 56 yo female with known schizophrenia here with AVH, SI and depression. No physical complaints. No concern for acute ingestion or trauma. Will check labs, [place], COVID screen. 1800- Sign out to night team pending a crisis evaluation MDM - Psych Medical Records Attestation: I reviewed the patient's medical records. Lab Data Attestation: I reviewed the patient's lab results. Result diagrams: 09/27/21 15:36 09/27/21 15:36 Labs: Lab Results 09/27/21 09/27/21 09/27/21 Range/Units 15:36 15:36 15:36 WBC 9.6 (4.8-10.8) X10*3/uL RBC 3.84 L (4.20-5.50) X10*6/uL Hgb 11.1 L (12.0-16.0) g/dl Hct 35.1 L (37.0-47.0) % MCV 91.4 (80.0-98.0) fL MCH 28.9 (27.0-33.0) pg MCHC 31.6 (31.0-35.0) g/dl RDW 15.1 (11.0-16.0) % Plt Count 275 (160-400) X10*3/uL MPV 11.3 (9.4-12.3) fL Immature Gran % (Auto) 0.7 H (0.0-0.4) % Neut % (Auto) 58.2 (45-73) % Lymph % (Auto) 33.4 (20-40) % [place] % (Auto) 7.0 (2-11) % Eos % (Auto) 0.5 (0-4) % Baso % (Auto) 0.2 (0-2) % Lymph # (Auto) 3.2 (1.2-4.9) X10*3/uL [place] # (Auto) 0.7 (0.1-1.2) X10*3/uL Eos # (Auto) 0.1 (0.0-0.4) X10*3/uL Baso # (Auto) 0.0 (0.0-0.2) X10*3/uL Abs Immat Gran (auto) 0.07 H (0.00-0.03) X10*3/uL Absolute Neuts (auto) 5.6 (2.0-8.3) x10*3/uL Absolute Nucleated RBC 0.000 (0.0-0.012) X10*3/uL Nucleated RBC % (auto) 0.0 (0.0-0.2) /100WBC Sodium 140 (135-145) mmol/L Potassium 4.3 (3.3-5.1) mmol/L Chloride 104 (96-108) mmol/L Carbon Dioxide 26 (22-29) mmol/L Anion Gap 14 (12-20) BUN 11 (9-16) mg/dL Creatinine 0.65 (0.5-1.4) mg/dL Estim Creat Clear Calc 88.6 Estimated GFR > 60 Random Glucose 118 H (60-115) mg/dL Calcium 9.6 (8.4-10.2) mg/dL Total Bilirubin 0.3 (0.0-1.0) mg/dL Direct Bilirubin < 0.2 (0.0-0.5) mg/dL AST 20 (5-31) U/L ALT 37 H (0-31) U/L Alkaline Phosphatase 73 (39-117) U/L Total Protein 7.0 (6.5-8.0) g/dL Albumin 4.2 (3.5-5.0) g/dL Urine Opiates Screen (Not Detect) Urine Fentanyl Screen (Not Detect) Ur Barbiturates Screen (Not Detect) Valproic Acid 62.5 (50.0-100.0) mcg/mL Ur Phencyclidine Scrn (Not Detect) Ur Amphetamines Screen (Not Detect) U Benzodiazepines Scrn (Not Detect) Urine Cocaine Screen (Not Detect) U Marijuana (THC) Screen (Not Detect) Ethyl Alcohol mg/dL COVID-19 ([facility]) Negative (Negative) COVID-19 Clin Com See Note 09/27/21 09/27/21 Range/Units 15:36 15:36 WBC (4.8-10.8) X10*3/uL RBC (4.20-5.50) X10*6/uL Hgb (12.0-16.0) g/dl Hct (37.0-47.0) % MCV (80.0-98.0) fL MCH (27.0-33.0) pg MCHC (31.0-35.0) g/dl RDW (11.0-16.0) % Plt Count (160-400) X10*3/uL MPV (9.4-12.3) fL Immature Gran % (Auto) (0.0-0.4) % Neut % (Auto) (45-73) % Lymph % (Auto) (20-40) % [place] % (Auto) (2-11) % Eos % (Auto) (0-4) % Baso % (Auto) (0-2) % Lymph # (Auto) (1.2-4.9) X10*3/uL [place] # (Auto) (0.1-1.2) X10*3/uL Eos # (Auto) (0.0-0.4) X10*3/uL Baso # (Auto) (0.0-0.2) X10*3/uL Abs Immat Gran (auto) (0.00-0.03) X10*3/uL Absolute Neuts (auto) (2.0-8.3) x10*3/uL Absolute Nucleated RBC (0.0-0.012) X10*3/uL Nucleated RBC % (auto) (0.0-0.2) /100WBC Sodium (135-145) mmol/L Potassium (3.3-5.1) mmol/L Chloride (96-108) mmol/L Carbon Dioxide (22-29) mmol/L Anion Gap (12-20) BUN (9-16) mg/dL Creatinine (0.5-1.4) mg/dL Estim Creat Clear Calc Estimated GFR Random Glucose (60-115) mg/dL Calcium (8.4-10.2) mg/dL Total Bilirubin (0.0-1.0) mg/dL Direct Bilirubin (0.0-0.5) mg/dL AST (5-31) U/L ALT (0-31) U/L Alkaline Phosphatase (39-117) U/L Total Protein (6.5-8.0) g/dL Albumin (3.5-5.0) g/dL Urine Opiates Screen Not Detected (Not Detect) Urine Fentanyl Screen Not Detected (Not Detect) Ur Barbiturates Screen Not Detected (Not Detect) Valproic Acid (50.0-100.0) mcg/mL Ur Phencyclidine Scrn Not Detected (Not Detect) Ur Amphetamines Screen Not Detected (Not Detect) U Benzodiazepines Scrn Not Detected (Not Detect) Urine Cocaine Screen Not Detected (Not Detect) U Marijuana (THC) Screen Not Detected (Not Detect) Ethyl Alcohol < 10 mg/dL COVID-19 ([facility]) (Negative) COVID-19 Clin Com Discharge Plan Discharge Clinical Impression: Schizophrenia Patient Disposition: Still a Patient Prescriptions: No Action lactulose [Generlac] 10 gram/15 mL solution 15 ml PO DAILY PRN (Reason: Constipation) 0RF albuterol sulfate 2.5 mg /3 mL (0.083 %) solution for nebulization 2.5 mg inhalation TID 30 Days Qty: 270 0RF clozapine 100 mg tablet 300 mg PO BEDTIME 30 Days Qty: 90 0RF lisinopril 10 mg tablet 10 mg PO QPM 30 Days Qty: 30 0RF divalproex 500 mg tablet extended release 24 hr 1,500 mg PO BEDTIME 30 Days Qty: 90 0RF omeprazole 20 mg capsule,delayed release(DR/EC) 20 mg PO BID 30 Days Qty: 60 0RF montelukast 10 mg tablet 10 mg PO DAILY 30 Days Qty: 30 0RF clozapine 25 mg tablet 50 mg PO QAM 30 Days Qty: 60 0RF fluoxetine 20 mg capsule 20 mg PO QAM 30 Days Qty: 30 0RF Flovent HFA 110 mcg/actuation HFA aerosol inhaler 2 puff PO BID 30 Days Qty: 12 0RF sennosides [senna] 8.6 mg tablet 2 tab PO BEDTIME 0RF fluconazole 150 mg tablet 1 tab PO FR 0RF docusate sodium 100 mg capsule 1 cap PO BID 0RF bisacodyl 5 mg tablet,delayed release (DR/EC) 2 tab PO BEDTIME 0RF albuterol sulfate [ProAir HFA] 90 mcg/actuation HFA aerosol inhaler 2 puff PO Q4-6H PRN (Reason: Wheezing) 0RF clotrimazole 1 % cream 1 appl topical BID 0RF clonazepam 1 mg Tablet 0.5 mg PO DAILY 0RF clonazepam [Klonopin] 1 mg Tablet 1 mg PO BEDTIME 0RF tramadol 50 mg Tablet 50 mg PO BID 0RF polyethylene glycol 3350 17 gram/dose Powder 17 g PO DAILY PRN (Reason: Constipation) 0RF dexamethasone 6 mg tablet 6 mg PO DAILY Qty: 5 0RF
[2021-09-27 15:17] VITALS: BP 127/67; PULSE 78; RESP 16; TEMP 36.9; O2SAT 98; BMI 33.1
[2021-09-27 15:42] LABS: MANUAL DIFF FLAG NO
[2021-09-27 15:45] LABS: Basophils Percent Auto 0.2 % (0-2); Eosinophils Absolute Auto 0.1 X10*3/uL (0.0-0.4); Eosinophils Percent Auto 0.5 % (0-4); Hematocrit 35.1 % (37.0-47.0); Hemoglobin 11.1 g/dl (12.0-16.0); Imm Gran Abs Auto 0.07 X10*3/uL (0.00-0.03); Imm Gran Pct Auto 0.7 % (0.0-0.4); Lymphocytes Absolute Auto 3.2 X10*3/uL (1.2-4.9); Lymphocytes Percent Auto 33.4 % (20-40); Mean Corpuscular HGB Conc 31.6 g/dl (31.0-35.0); Mean Corpuscular Hemoglobin 28.9 pg (27.0-33.0); Mean Corpuscular Volume 91.4 fL (80.0-98.0); Mean Platelet Volume 11.3 fL (9.4-12.3); Monocytes Absolute Auto 0.7 X10*3/uL (0.1-1.2); Neutrophils Absolute Auto 5.6 x10*3/uL (2.0-8.3); Neutrophils Percent Auto 58.2 % (45-73); Platelet Count 275 X10*3/uL (160-400); Red Blood Count 3.84 X10*6/uL (4.20-5.50); Red Cell Distribution Width 15.1 % (11.0-16.0); White Blood Count 9.6 X10*3/uL (4.8-10.8)
[2021-09-27 15:59] LABS: Ethanol < 10 mg/dL
[2021-09-27 16:03] LABS: Amphetamine Screen Urine Not Detected (Not Detect); Barbiturates, Urine Not Detected (Not Detect); Benzodiazepines Screen Urine Not Detected (Not Detect); Cannabinoid Screen Urine Not Detected (Not Detect); Cocaine Screen Urine Not Detected (Not Detect); Fentanyl, urine Not Detected (Not Detect); Opiate Screen Urine Not Detected (Not Detect); Phencyclidine Screen Urine Not Detected (Not Detect)
[2021-09-27 16:04] LABS: Alanine Aminotransferase 37 U/L (0-31); Albumin Level 4.2 g/dL (3.5-5.0); Alkaline Phosphatase 73 U/L (39-117); Anion Gap 14 (12-20); Aspartate Amino Transferase 20 U/L (5-31); Bilirubin Direct < 0.2 mg/dL (0.0-0.5); Bilirubin Total 0.3 mg/dL (0.0-1.0); Blood Urea Nitrogen 11 mg/dL (9-16); Calcium 9.6 mg/dL (8.4-10.2); Carbon Dioxide 26 mmol/L (22-29); Chloride 104 mmol/L (96-108); Creatinine Clr Calc Pharmacy 88.6; Estimated Glomerular Filt Rate > 60; Glucose Random 118 mg/dL (60-115); Potassium 4.3 mmol/L (3.3-5.1); Sodium 140 mmol/L (135-145)
[2021-09-27 16:08] LABS: Valproate 62.5 mcg/mL (50.0-100.0)
[2021-09-27 16:38] LABS: COVID-19 Test Negative (Negative)
[2021-09-27 17:06] VITALS: BP 123/72; PULSE 94; RESP 20; TEMP 36.1; O2SAT 96
[2021-09-27 23:16] VITALS: BP 179/102; PULSE 86; RESP 20; TEMP 36.6; O2SAT 100
--- NOTE | 2021-09-28 | ECG_ITS ---
Test Reason : Med clearance Blood Pressure : / mmHG Vent. Rate : 080 BPM Atrial Rate : 080 BPM P-R Int : 126 ms QRS Dur : 082 ms QT Int : 380 ms P-R-T Axes : 066 039 014 degrees QTc Int : 438 ms Normal sinus rhythm Normal ECG When compared with ECG of 10-AUG-2021 20:20, No significant change was found Referred By: Ayala Brown Electronically Signed By:Omar Read
[2021-09-28] MEDS: bisacodyL 5 MG TABLET.DR 10 MG PO ×2 (00:39→22:08)
[2021-09-28] MEDS: Sennosides 8.6 MG TABLET 17.2 MG PO ×2 (00:39→22:08)
[2021-09-28] MEDS: lisinopriL 10 MG TABLET PO ×2 (00:39→22:16)
[2021-09-28] MEDS: Divalproex Sodium ER 500 MG TAB.ER.24H 1500 MG PO ×2 (00:39→22:09)
[2021-09-28] MEDS: Docusate Sodium 100 MG CAPSULE PO ×3 (00:39→22:09)
[2021-09-28] MEDS: Omeprazole 20 MG CAPSULE.DR PO ×3 (00:39→22:08)
[2021-09-28] MEDS: clonazePAM 1 MG TABLET PO ×2 (00:39→22:10)
[2021-09-28 06:40] VITALS: BP 135/76; PULSE 79; RESP 16
--- NOTE | 2021-09-28 06:43 | PC.NURSE ---
Patient slept through the night, no distress observed/reported, medication compliant, behavior calm, quiet, non-concerning at this time, VS at baseline, per report patient was assessed by MAGGIE, disposition is section 12 inpatient bed search, Clozaril is on hold due to pharmacy claim history issue, patient reported she has been taking her medication consistent with normal depakote level, will continue to monitor.
--- NOTE | 2021-09-28 07:11 | PC.NURSE ---
patient appears to remain asleep at present respirations are even and unlabored, patient appears in no distress
[2021-09-28] MEDS: cloZAPine 25 MG TABLET 50 MG PO (09:29)
[2021-09-28] MEDS: Montelukast Sodium 10 MG TABLET PO (09:30)
[2021-09-28] MEDS: FLUoxetine HCl 20 MG CAPSULE PO (09:30)
[2021-09-28] MEDS: clonazePAM 0.5 MG TABLET PO (09:30)
--- NOTE | 2021-09-28 09:30 | HE.PHANOTE ---
Clozaril dose confirmed with [facility] pharmacy
[2021-09-28] MEDS: traMADoL HCL 50 MG TABLET PO (11:48)
[2021-09-28 13:24] LABS: COVID-19 Test Negative (Negative)
--- NOTE | 2021-09-28 19:16 | PC.NURSE ---
Brenna is a 56 year old primarily Vietnamese speaking single female admitted to M3 on CV from [facility] ED where she presented after several days struggling with exacerbation of command auditory hallucinations telling her to cut herself and kill herself. She has had numerous inpatient and CSS stays 2011 to present with similar presentation. She is well dressed, well groomed, pleasant and appropriate in admission interview. She did not appear to respond or attend to internal stimuli, no thought blocking, paranoia or guardedness noted. Speech is quiet but normal rate, rhythm, prosody. She reports sleep is interrupted by AH recently. She reports appetite is good. Her focus appears good as well. Brenna is in adult foster care, has medication administration support through [facility], day program at [facility], therapy, psychiatry, and outreach services. She reports no recent stressors or life changes and reports compliance with all prescribed medications. Brenna reports asthma and hypertension controlled on current regime. She reports constipation is an ongoing issue, no bm x 2 days despite numerous laxatives in ED. She reports osteoarthritis with 7/10 knee pain for which she uses a bengay type product with good effect at home. Gait appears steady and she denies recent falls. She denies other physical complaint.
[2021-09-28] MEDS: cloZAPine 100 MG TABLET 300 MG PO (22:09)
[2021-09-28 22:17] VITALS: BP 120/62; PULSE 85; TEMP 36.8; O2SAT 95
[2021-09-28] MEDS: Fluticasone Propionate 100 MCG BLST.W.DEV 2 PUFF INHALE (23:54)
[2021-09-29 08:39] LABS: Basophils Percent Auto 0.3 % (0-2); Eosinophils Absolute Auto 0.1 X10*3/uL (0.0-0.4); Eosinophils Percent Auto 1.2 % (0-4); Hematocrit 35.2 % (37.0-47.0); Hemoglobin 11.1 g/dl (12.0-16.0); Imm Gran Abs Auto 0.08 X10*3/uL (0.00-0.03); Imm Gran Pct Auto 0.8 % (0.0-0.4); Lymphocytes Absolute Auto 3.7 X10*3/uL (1.2-4.9); Lymphocytes Percent Auto 38.6 % (20-40); MANUAL DIFF FLAG NO; Mean Corpuscular HGB Conc 31.5 g/dl (31.0-35.0); Mean Corpuscular Hemoglobin 28.9 pg (27.0-33.0); Mean Corpuscular Volume 91.7 fL (80.0-98.0); Mean Platelet Volume 11.1 fL (9.4-12.3); Monocytes Absolute Auto 0.9 X10*3/uL (0.1-1.2); Monocytes Percent Auto 8.9 % (2-11); Neutrophils Absolute Auto 4.8 x10*3/uL (2.0-8.3); Neutrophils Percent Auto 50.2 % (45-73); Platelet Count 239 X10*3/uL (160-400); Red Blood Count 3.84 X10*6/uL (4.20-5.50); White Blood Count 9.7 X10*3/uL (4.8-10.8)
[2021-09-29 08:55] LABS: Cholesterol 195 mg/dL; HDL Cholesterol 35 mg/dL; LDL Cholesterol Calculated 125 mg/dl; Triglycerides 175 mg/dL
[2021-09-29 09:00] VITALS: BP 113/56; PULSE 78; RESP 16; TEMP 36.8; O2SAT 93
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
[2021-09-29 09:15] LABS: Estimated Average Glucose 137 mg/dL; Hemoglobin A1c % 6.4 %; Thyroid Stimulating Hormone 1.26 uIU/mL (0.32-4.0)
[2021-09-29] MEDS: Fluticasone Propionate 100 MCG BLST.W.DEV 2 PUFF INHALE ×2 (09:35→20:16)
[2021-09-29] MEDS: Docusate Sodium 100 MG CAPSULE PO ×2 (09:35→20:07)
[2021-09-29] MEDS: FLUoxetine HCl 20 MG CAPSULE PO (09:35)
[2021-09-29] MEDS: cloZAPine 25 MG TABLET 50 MG PO (09:35)
[2021-09-29] MEDS: Omeprazole 20 MG CAPSULE.DR PO ×2 (09:35→20:09)
[2021-09-29] MEDS: clonazePAM 0.5 MG TABLET PO (09:35)
[2021-09-29] MEDS: Montelukast Sodium 10 MG TABLET PO (09:35)
[2021-09-29] MEDS: Acetaminophen 325 MG TABLET 650 MG PO (09:43)
[2021-09-29 09:58] LABS: Vitamin B12 417 pg/mL (200-900)
[2021-09-29] MEDS: traMADoL HCL 50 MG TABLET PO ×2 (12:25→20:06)
[2021-09-29 12:54] VITALS: BP 106/52; BP 134/72; PULSE 83; PULSE 87; O2SAT 92; O2SAT 93
[2021-09-29] MEDS: polyethylene glycoL 3350 17 GM POWD.PACK PO ×2 (14:11→20:15)
[2021-09-29 14:15] LABS: MANUAL DIFF FLAG NO
[2021-09-29 14:20] LABS: Basophils Percent Auto 0.2 % (0-2); Eosinophils Absolute Auto 0.1 X10*3/uL (0.0-0.4); Eosinophils Percent Auto 0.7 % (0-4); Hematocrit 34.9 % (37.0-47.0); Hemoglobin 11.1 g/dl (12.0-16.0); Imm Gran Abs Auto 0.08 X10*3/uL (0.00-0.03); Imm Gran Pct Auto 0.8 % (0.0-0.4); Lymphocytes Absolute Auto 3.3 X10*3/uL (1.2-4.9); Lymphocytes Percent Auto 33.8 % (20-40); Mean Corpuscular HGB Conc 31.8 g/dl (31.0-35.0); Mean Corpuscular Hemoglobin 29.1 pg (27.0-33.0); Mean Corpuscular Volume 91.4 fL (80.0-98.0); Mean Platelet Volume 11.3 fL (9.4-12.3); Monocytes Absolute Auto 0.7 X10*3/uL (0.1-1.2); Monocytes Percent Auto 6.8 % (2-11); Neutrophils Absolute Auto 5.6 x10*3/uL (2.0-8.3); Neutrophils Percent Auto 57.7 % (45-73); Platelet Count 245 X10*3/uL (160-400); Red Blood Count 3.82 X10*6/uL (4.20-5.50); Red Cell Distribution Width 15.1 % (11.0-16.0); White Blood Count 9.7 X10*3/uL (4.8-10.8)
[2021-09-29 18:00] VITALS: BP 110/75; PULSE 78; RESP 16; TEMP 36.8; O2SAT 96
[2021-09-29] MEDS: clonazePAM 1 MG TABLET PO (20:05)
[2021-09-29] MEDS: Sennosides 8.6 MG TABLET 17.2 MG PO (20:06)
[2021-09-29] MEDS: bisacodyL 5 MG TABLET.DR 10 MG PO (20:07)
[2021-09-29] MEDS: Divalproex Sodium ER 500 MG TAB.ER.24H 1500 MG PO (20:07)
[2021-09-29] MEDS: lisinopriL 10 MG TABLET PO (20:09)
[2021-09-29] MEDS: cloZAPine 100 MG TABLET 300 MG PO (20:10)
[2021-09-30 06:00] VITALS: BP 110/58; PULSE 80; RESP 16; TEMP 36.2; O2SAT 95
[2021-09-30] MEDS: clonazePAM 0.5 MG TABLET PO (10:08)
[2021-09-30] MEDS: polyethylene glycoL 3350 17 GM POWD.PACK PO ×2 (10:08→21:46)
[2021-09-30] MEDS: cloZAPine 25 MG TABLET 50 MG PO (10:08)
[2021-09-30] MEDS: Docusate Sodium 100 MG CAPSULE PO ×2 (10:08→21:32)
[2021-09-30] MEDS: traMADoL HCL 50 MG TABLET PO ×2 (10:08→21:31)
[2021-09-30] MEDS: Omeprazole 20 MG CAPSULE.DR PO ×2 (10:08→21:31)
[2021-09-30] MEDS: Fluticasone Propionate 100 MCG BLST.W.DEV 2 PUFF INHALE ×2 (10:09→21:31)
[2021-09-30] MEDS: Montelukast Sodium 10 MG TABLET PO (10:09)
--- NOTE | 2021-09-30 17:19 | P.PNPSI_ITS ---
Subjective Subjective Reason For Visit: /SI Diagnostics Vital Signs (24Hr): Vital Signs - 24 hr 09/29/21 18:00 09/30/21 06:00 Temperature 98.2 F 97.1 F Pulse Rate 78 80 Respiratory Rate 16 16 Blood Pressure 110/75 110/58 L Pulse Oximetry 96 95 BMI result Body Mass Index 33.1 Labs Results: 09/29/21 13:57 09/27/21 15:36 Labs: Laboratory Results - last 48 hr 09/29/21 09/29/21 09/29/21 08:27 08:27 08:27 WBC 9.7 RBC 3.84 L Hgb 11.1 L Hct 35.2 L MCV 91.7 MCH 28.9 MCHC 31.5 RDW 15.0 Plt Count 239 MPV 11.1 Immature Gran % (Auto) 0.8 H Neut % (Auto) 50.2 Lymph % (Auto) 38.6 [place] % (Auto) 8.9 Eos % (Auto) 1.2 Baso % (Auto) 0.3 Lymph # (Auto) 3.7 [place] # (Auto) 0.9 Eos # (Auto) 0.1 Baso # (Auto) 0.0 Abs Immat Gran (auto) 0.08 H Absolute Neuts (auto) 4.8 Absolute Nucleated RBC 0.000 Nucleated RBC % (auto) 0.0 Estimat Average Glucose 137 Hemoglobin A1c % 6.4 Triglycerides 175 Cholesterol 195 LDL Cholesterol, Calc 125 HDL Cholesterol 35 Vitamin B12 Folate TSH 1.26 09/29/21 09/29/21 08:27 13:57 WBC 9.7 RBC 3.82 L Hgb 11.1 L Hct 34.9 L MCV 91.4 MCH 29.1 MCHC 31.8 RDW 15.1 Plt Count 245 MPV 11.3 Immature Gran % (Auto) 0.8 H Neut % (Auto) 57.7 Lymph % (Auto) 33.8 [place] % (Auto) 6.8 Eos % (Auto) 0.7 Baso % (Auto) 0.2 Lymph # (Auto) 3.3 [place] # (Auto) 0.7 Eos # (Auto) 0.1 Baso # (Auto) 0.0 Abs Immat Gran (auto) 0.08 H Absolute Neuts (auto) 5.6 Absolute Nucleated RBC 0.000 Nucleated RBC % (auto) 0.0 Estimat Average Glucose Hemoglobin A1c % Triglycerides Cholesterol LDL Cholesterol, Calc HDL Cholesterol Vitamin B12 417 Folate 7.0 TSH Imaging Radiology Impressions: ITS Impressions KUB X-Ray 09/29/21 15:10 IMPRESSION: Large volume of stool throughout colon. Medications Medications Current Medications Acetaminophen (Acetaminophen 325 Mg Tablet) 650 mg PO Q6H PRN PRN Reason: Headache/Pain Mild Scale (1-3) Last Admin: 09/29/21 09:43 Dose: 650 mg Documented by: Al Hydroxide/Mg Hydroxide (Magnesium Hydrox/Alum Hydrox 30 Ml Oral.Susp) 30 ml PO Q6H PRN PRN Reason: Heartburn/Nausea Albuterol Sulfate (Albuterol Sulfate 90 Mcg 8 Gm Inhaler) 2 puff INHALE Q4H PRN PRN Reason: Wheezing Bisacodyl (Bisacodyl 5 Mg Tablet.Dr) 10 mg PO BEDTIME [facility] Last Admin: 09/29/21 20:07 Dose: 10 mg Documented by: Clonazepam (Clonazepam 0.5 Mg Tablet) 0.5 mg PO DAILY [facility] Last Admin: 09/30/21 10:08 Dose: 0.5 mg Documented by: Clonazepam (Clonazepam 1 Mg Tablet) 1 mg PO BEDTIME [facility] Last Admin: 09/29/21 20:05 Dose: 1 mg Documented by: Clozapine (Clozapine 25 Mg Tablet) 50 mg PO DAILY [facility] Last Admin: 09/30/21 10:08 Dose: 50 mg Documented by: Clozapine (Clozapine 100 Mg Tablet) 300 mg PO BEDTIME [facility] Last Admin: 09/29/21 20:10 Dose: 300 mg Documented by: Divalproex Sodium (Divalproex Sodium Er 500 Mg Tab.Er.24h) 1,500 mg PO BEDTIME [facility] Last Admin: 09/29/21 20:07 Dose: 1,500 mg Documented by: Docusate Sodium (Docusate Sodium 100 Mg Capsule) 100 mg PO BID [facility] Last Admin: 09/30/21 10:08 Dose: 100 mg Documented by: Fluticasone Propionate (Fluticasone Propionate 100 Mcg Blst.W.Dev) 2 puff INHALE RBID [facility] Last Admin: 09/30/21 10:09 Dose: 2 puff Documented by: Hydroxyzine HCl (Hydroxyzine Hcl 25 Mg Tablet) 25 mg PO Q6H PRN PRN Reason: Anxiety Lactulose (Lactulose 20 Gm/30 Ml Solution) 10 gm PO DAILY PRN PRN Reason: Constipation Lisinopril (Lisinopril 10 Mg Tablet) 10 mg PO BEDTIME [facility]; Protocol Last Admin: 09/29/21 20:09 Dose: 10 mg Documented by: Magnesium Hydroxide (Milk Of Magnesia 30 Ml Oral.Susp) 30 ml PO DAILY PRN PRN Reason: Constipation Montelukast Sodium (Montelukast Sodium 10 Mg Tablet) 10 mg PO DAILY [facility] Last Admin: 09/30/21 10:09 Dose: 10 mg Documented by: Non-Formulary Medication (Menthol) 2.5 % TOPICAL TID PRN PRN Reason: musculoskeletal pain Last Admin: 09/29/21 20:16 Dose: 2.5 % Documented by: Omeprazole (Omeprazole 20 Mg Capsule.Dr) 20 mg PO BID [facility] Last Admin: 09/30/21 10:08 Dose: 20 mg Documented by: Polyethylene Glycol (Polyethylene Glycol 3350 17 Gm Powd.Pack) 17 gm PO BID [facility] Last Admin: 09/30/21 10:08 Dose: 17 gm Documented by: Senna (Sennosides 8.6 Mg Tablet) 17.2 mg PO BEDTIME [facility] Last Admin: 09/29/21 20:06 Dose: 17.2 mg Documented by: Tramadol HCl (Tramadol Hcl 50 Mg Tablet) 50 mg PO BID [facility] Last Admin: 09/30/21 10:08 Dose: 50 mg Documented by: Trazodone HCl (Trazodone Hcl 50 Mg Tablet) 50 mg PO BEDTIME PRN PRN Reason: Insomnia Allergies Allergies Allergy/AdvReac Type Severity Reaction Status Date / Time diazepam [From Valium] Allergy Unknown Unknown Verified 08/10/21 20:04 haloperidol [From Haldol] Allergy Unknown Unknown Verified 08/10/21 20:04 Penicillins Allergy Unknown Unknown Verified 08/10/21 20:04 risperidone [From Risperdal] Allergy Unknown Unknown Verified 08/10/21 20:04 aspirin [Aspirin] AdvReac Intermediate Vomiting Verified 08/10/21 20:04 trazodone [TRAZODONE] AdvReac Intermediate NAUSEA & Verified 08/10/21 20:04 VOMITING Assessment & Plan I spent minutes with the patient and/or on the patient floor today, greater than?50% of which was spent counseling/coordinating care.
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
--- NOTE | 2021-09-30 18:42 | HO.PSYCHPN ---
Subjective Subjective Date of Service: 09/30/21 Reason For Visit: AH/SI Subjective Notes: Vasquez Warning and Conditional Voluntary Healthcare Proxy: No Guardianship: No Medical Problems Affecting Mental Status: No Interim History: Patient seen and discussed with team. Patient evaluated this today and upon interview pt reports she is depressed and is hearing command AH telling her to cut herself. Sleep is good, but says she is getting too much sleep and attributes this to depression. Appetite is good. Endorses VH of seeing snakes, feels scared and says she has a lot of anxiety. Feels safe here. Asks to re-start prozac, as she believes it helps with depression. I spoke with pt's OP provider, Zaho Cardenas, who reports pt does well with the increased structure and therapeutic milieu of the hospital and typically she does not benefit from med changes, as she has A/VH at baseline and is able to function. Per previous [facility] M5 discharge, pt has been trialed off prozac due to concern of it being activating, however it was restarted, as pt has reported it is helpful for her depression and anxiety. ? In the milieu, patient is safe but isolative in behavior. Denies SI/SIB/HI upon inquiry. Denies irritability or assaultive ideation. Says she feels safe. Medication Compliance: Yes Side effects from medications: No Attending Groups: No Review of Systems Acute medical concerns: No Medical Review of Systems: unchanged Mental Status Exam Mental Status Exam Narrative: A&O. Overweight, in casual attire, lying down in bed. Good eye contact, attentive. Has fine bilateral hand tremor. No abnormal involuntary movements. Calm, somewhat guarded, overall engaged. Non-pressured speech, spontaneous with regular rate and rhythm, normal volume and prosody. No prolonged speech latency or dysarthria. Mood is ?depressed,? affect is flat. Denies SI/SIB/HI upon inquiry. Endorses command AH/VH. Denies delusional thought content. Thoughts are concrete, linear. No known cognitive or memory impairment. Insight/ Judgment fair and adequate. Diagnostics Vital Signs (24Hr): Vital Signs - 24 hr 09/30/21 06:00 Temperature 97.1 F Pulse Rate 80 Respiratory Rate 16 Blood Pressure 110/58 L Pulse Oximetry 95 BMI result Body Mass Index 33.1 Labs Results: 09/29/21 13:57 09/27/21 15:36 Labs: Laboratory Results - last 48 hr 09/29/21 09/29/21 09/29/21 08:27 08:27 08:27 WBC 9.7 RBC 3.84 L Hgb 11.1 L Hct 35.2 L MCV 91.7 MCH 28.9 MCHC 31.5 RDW 15.0 Plt Count 239 MPV 11.1 Immature Gran % (Auto) 0.8 H Neut % (Auto) 50.2 Lymph % (Auto) 38.6 [place] % (Auto) 8.9 Eos % (Auto) 1.2 Baso % (Auto) 0.3 Lymph # (Auto) 3.7 [place] # (Auto) 0.9 Eos # (Auto) 0.1 Baso # (Auto) 0.0 Abs Immat Gran (auto) 0.08 H Absolute Neuts (auto) 4.8 Absolute Nucleated RBC 0.000 Nucleated RBC % (auto) 0.0 Estimat Average Glucose 137 Hemoglobin A1c % 6.4 Triglycerides 175 Cholesterol 195 LDL Cholesterol, Calc 125 HDL Cholesterol 35 Vitamin B12 Folate TSH 1.26 09/29/21 09/29/21 08:27 13:57 WBC 9.7 RBC 3.82 L Hgb 11.1 L Hct 34.9 L MCV 91.4 MCH 29.1 MCHC 31.8 RDW 15.1 Plt Count 245 MPV 11.3 Immature Gran % (Auto) 0.8 H Neut % (Auto) 57.7 Lymph % (Auto) 33.8 [place] % (Auto) 6.8 Eos % (Auto) 0.7 Baso % (Auto) 0.2 Lymph # (Auto) 3.3 [place] # (Auto) 0.7 Eos # (Auto) 0.1 Baso # (Auto) 0.0 Abs Immat Gran (auto) 0.08 H Absolute Neuts (auto) 5.6 Absolute Nucleated RBC 0.000 Nucleated RBC % (auto) 0.0 Estimat Average Glucose Hemoglobin A1c % Triglycerides Cholesterol LDL Cholesterol, Calc HDL Cholesterol Vitamin B12 417 Folate 7.0 TSH Imaging Radiology Impressions: ITS Impressions KUB X-Ray 09/29/21 15:10 IMPRESSION: Large volume of stool throughout colon. Medications Medications Current Medications Acetaminophen (Acetaminophen 325 Mg Tablet) 650 mg PO Q6H PRN PRN Reason: Headache/Pain Mild Scale (1-3) Last Admin: 09/29/21 09:43 Dose: 650 mg Documented by: Al Hydroxide/Mg Hydroxide (Magnesium Hydrox/Alum Hydrox 30 Ml Oral.Susp) 30 ml PO Q6H PRN PRN Reason: Heartburn/Nausea Albuterol Sulfate (Albuterol Sulfate 90 Mcg 8 Gm Inhaler) 2 puff INHALE Q4H PRN PRN Reason: Wheezing Bisacodyl (Bisacodyl 5 Mg Tablet.Dr) 10 mg PO BEDTIME [facility] Last Admin: 09/29/21 20:07 Dose: 10 mg Documented by: Clonazepam (Clonazepam 0.5 Mg Tablet) 0.5 mg PO DAILY [facility] Last Admin: 09/30/21 10:08 Dose: 0.5 mg Documented by: Clonazepam (Clonazepam 1 Mg Tablet) 1 mg PO BEDTIME [facility] Last Admin: 09/29/21 20:05 Dose: 1 mg Documented by: Clozapine (Clozapine 25 Mg Tablet) 50 mg PO DAILY [facility] Last Admin: 09/30/21 10:08 Dose: 50 mg Documented by: Clozapine (Clozapine 100 Mg Tablet) 300 mg PO BEDTIME [facility] Last Admin: 09/29/21 20:10 Dose: 300 mg Documented by: Divalproex Sodium (Divalproex Sodium Er 500 Mg Tab.Er.24h) 1,500 mg PO BEDTIME [facility] Last Admin: 09/29/21 20:07 Dose: 1,500 mg Documented by: Docusate Sodium (Docusate Sodium 100 Mg Capsule) 100 mg PO BID [facility] Last Admin: 09/30/21 10:08 Dose: 100 mg Documented by: Fluoxetine HCl (Fluoxetine Hcl 20 Mg Capsule) 20 mg PO DAILY [facility] Fluticasone Propionate (Fluticasone Propionate 100 Mcg Blst.W.Dev) 2 puff INHALE RBID [facility] Last Admin: 09/30/21 10:09 Dose: 2 puff Documented by: Hydroxyzine HCl (Hydroxyzine Hcl 25 Mg Tablet) 25 mg PO Q6H PRN PRN Reason: Anxiety Lactulose (Lactulose 20 Gm/30 Ml Solution) 10 gm PO DAILY PRN PRN Reason: Constipation Lisinopril (Lisinopril 10 Mg Tablet) 10 mg PO BEDTIME [facility]; Protocol Last Admin: 09/29/21 20:09 Dose: 10 mg Documented by: Magnesium Hydroxide (Milk Of Magnesia 30 Ml Oral.Susp) 30 ml PO DAILY PRN PRN Reason: Constipation Montelukast Sodium (Montelukast Sodium 10 Mg Tablet) 10 mg PO DAILY [facility] Last Admin: 09/30/21 10:09 Dose: 10 mg Documented by: Non-Formulary Medication (Menthol) 2.5 % TOPICAL TID PRN PRN Reason: musculoskeletal pain Last Admin: 09/29/21 20:16 Dose: 2.5 % Documented by: Omeprazole (Omeprazole 20 Mg Capsule.Dr) 20 mg PO BID [facility] Last Admin: 09/30/21 10:08 Dose: 20 mg Documented by: Polyethylene Glycol (Polyethylene Glycol 3350 17 Gm Powd.Pack) 17 gm PO BID [facility] Last Admin: 09/30/21 10:08 Dose: 17 gm Documented by: Senna (Sennosides 8.6 Mg Tablet) 17.2 mg PO BEDTIME [facility] Last Admin: 09/29/21 20:06 Dose: 17.2 mg Documented by: Tramadol HCl (Tramadol Hcl 50 Mg Tablet) 50 mg PO BID [facility] Last Admin: 09/30/21 10:08 Dose: 50 mg Documented by: Trazodone HCl (Trazodone Hcl 50 Mg Tablet) 50 mg PO BEDTIME PRN PRN Reason: Insomnia Allergies Allergies Allergy/AdvReac Type Severity Reaction Status Date / Time diazepam [From Valium] Allergy Unknown Unknown Verified 08/10/21 20:04 haloperidol [From Haldol] Allergy Unknown Unknown Verified 08/10/21 20:04 Penicillins Allergy Unknown Unknown Verified 08/10/21 20:04 risperidone [From Risperdal] Allergy Unknown Unknown Verified 08/10/21 20:04 aspirin [Aspirin] AdvReac Intermediate Vomiting Verified 08/10/21 20:04 trazodone [TRAZODONE] AdvReac Intermediate NAUSEA & Verified 08/10/21 20:04 VOMITING Assessment & Plan Assessment & Plan (1) Schizophrenia: Status: Chronic Code(s): F20.9 - Schizophrenia, unspecified (2) JULIO (generalized anxiety disorder): Status: Acute Code(s): F41.1 - Generalized anxiety disorder Plan 09/29: Will re-start prozac, as pt reports this has historically been helpful for her sx of depression. Discussed this with OP provider, who states it has not been activating and pt typically does well without med changes and benefits from therapeutic milieu. I spent minutes with the patient and/or on the patient floor today, greater than?50% of which was spent counseling/coordinating care. Reason for contiued inpatient stay Substantial Risk for: rapid decompensation and med/psych decompensation
[2021-09-30 21:29] VITALS: BP 129/71; PULSE 90; TEMP 36.6; O2SAT 98
[2021-09-30] MEDS: clonazePAM 1 MG TABLET PO (21:31)
[2021-09-30] MEDS: bisacodyL 5 MG TABLET.DR 10 MG PO (21:31)
[2021-09-30] MEDS: cloZAPine 100 MG TABLET 300 MG PO (21:31)
[2021-09-30] MEDS: Divalproex Sodium ER 500 MG TAB.ER.24H 1500 MG PO (21:31)
[2021-09-30] MEDS: Sennosides 8.6 MG TABLET 17.2 MG PO (21:32)
[2021-09-30] MEDS: lisinopriL 10 MG TABLET PO (21:32)
[2021-10-01] MEDS: traMADoL HCL 50 MG TABLET PO ×2 (09:04→21:16)
[2021-10-01] MEDS: cloZAPine 25 MG TABLET 50 MG PO (09:04)
[2021-10-01] MEDS: Montelukast Sodium 10 MG TABLET PO (09:04)
[2021-10-01] MEDS: Docusate Sodium 100 MG CAPSULE PO ×2 (09:04→21:16)
[2021-10-01] MEDS: FLUoxetine HCl 20 MG CAPSULE PO (09:04)
[2021-10-01] MEDS: Omeprazole 20 MG CAPSULE.DR PO ×2 (09:04→21:16)
[2021-10-01] MEDS: clonazePAM 0.5 MG TABLET PO (09:04)
[2021-10-01] MEDS: Fluticasone Propionate 100 MCG BLST.W.DEV 2 PUFF INHALE ×2 (09:04→21:13)
[2021-10-01 09:13] VITALS: BP 115/58; PULSE 79; RESP 16; TEMP 36.6; O2SAT 96
--- NOTE | 2021-10-01 17:12 | HO.PSYCHPN ---
Subjective Subjective Date of Service: 10/01/21 Reason For Visit: AH/SI Interim History: Patient seen and discussed with team. Patient reports she is hearing voices that tell her to hurt herself. She reported she saw black butterflies that were going to kill me and snakes in the shower. Patient was seen in her room shaking. She appeared anxious and scared and was talking about the voices she is having. In the milieu, patient is safe but isolative in behavior. Denies SI/SIB/HI upon inquiry. Denies irritability or assaultive ideation. Says she feels safe otherwise. Had a bowel movement. Review of Systems Review of Systems Yes all other systems are reviewed and are negative Constitutional: Reports no additional constitutional complaints, Denies body ache(s), Denies chills, Reports fatigue, Denies fever(s), Denies headache(s), Reports lethargy and Reports weakness Eyes: Reports no additional eye complaints and Denies change in vision Reports system reviewed and no additional complaints, except as documented, Denies dizziness, Denies headache(s), Denies nasal congestion, Denies nasal discharge and Denies neck pain Cardiovascular: Reports no additional cardiovascular complaints, Denies chest pain, Denies chest pain at rest, Denies chest pain with activity, Denies Epigastric Pain, Denies diaphoresis, Denies syncope, Denies rapid heart rate, Denies leg edema, Reports lightheadedness, Denies radiating jaw, neck or arm pain, Denies palpitations, Denies dyspnea and Reports orthopnea Respiratory: Reports no additional respiratory complaints, Denies chest congestion, Denies cough, Denies pain on inspiration and Denies dyspnea Gastrointestinal: Reports no additional gastrointestinal complaints, Reports abdominal pain, Reports constipation, Denies diarrhea, Denies nausea and Denies vomiting Musculoskeletal: Reports no additional musculoskeletal complaints, Reports back pain, Denies arthralgias, Denies joint swelling, Denies neck pain, Denies numbness and Denies tingling Skin/Breast: Reports system reviewed and no additional complaints, except as docu and Denies rash Reports system reviewed and no additional complaints, except as documented, Denies Abnormal speech present, Denies dizziness, Denies syncope, Denies headache(s), Denies numbness, Denies tingling and Reports weakness Psychiatric: Denies anxiety, Reports depression, Reports paranoia, Reports visual hallucinations, Reports hallucinations, Denies homicidal ideation and Reports suicidal ideation Endocrine: Reports fatigue and Denies palpitations Mental Status Exam Mental Status Exam Narrative: Appearance: short stature, MO, in bed, reports weakness, dizziness, some mild abdominal pain Behavior: anxious, cooperative Psychomotor: tremors anxious speech: clear, normal rate/rhythm/volume, spontaneous Mood: scared Affect: blunted, congruent, anxious AH/VH: CAH telling her to harm self SI: passive, no plan or intent Delusions: paranoid Insight/judgment: fair x 2. Memory/cog: alert, oriented x 3. not formally tested. Diagnostics Vital Signs (24Hr): Vital Signs - 24 hr 10/01/21 09:13 10/01/21 21:22 Temperature 97.9 F 97.5 F Pulse Rate 79 79 Respiratory Rate 16 Blood Pressure 115/58 L 116/61 Pulse Oximetry 96 94 BMI result Body Mass Index 33.1 Labs Results: 09/29/21 13:57 09/27/21 15:36 Imaging Radiology Impressions: ITS Impressions KUB X-Ray 09/29/21 15:10 IMPRESSION: Large volume of stool throughout colon. Medications Medications Current Medications Acetaminophen (Acetaminophen 325 Mg Tablet) 650 mg PO Q6H PRN PRN Reason: Headache/Pain Mild Scale (1-3) Last Admin: 09/29/21 09:43 Dose: 650 mg Documented by: Al Hydroxide/Mg Hydroxide (Magnesium Hydrox/Alum Hydrox 30 Ml Oral.Susp) 30 ml PO Q6H PRN PRN Reason: Heartburn/Nausea Albuterol Sulfate (Albuterol Sulfate 90 Mcg 8 Gm Inhaler) 2 puff INHALE Q4H PRN PRN Reason: Wheezing Bisacodyl (Bisacodyl 5 Mg Tablet.Dr) 10 mg PO BEDTIME [facility] Last Admin: 10/01/21 21:15 Dose: 10 mg Documented by: Clonazepam (Clonazepam 0.5 Mg Tablet) 0.5 mg PO DAILY [facility] Last Admin: 10/01/21 09:04 Dose: 0.5 mg Documented by: Clonazepam (Clonazepam 1 Mg Tablet) 1 mg PO BEDTIME [facility] Last Admin: 10/01/21 21:14 Dose: 1 mg Documented by: Clozapine (Clozapine 25 Mg Tablet) 50 mg PO DAILY [facility] Last Admin: 10/01/21 09:04 Dose: 50 mg Documented by: Clozapine (Clozapine 100 Mg Tablet) 300 mg PO BEDTIME [facility] Last Admin: 10/01/21 21:15 Dose: 300 mg Documented by: Divalproex Sodium (Divalproex Sodium Er 500 Mg Tab.Er.24h) 1,500 mg PO BEDTIME [facility] Last Admin: 10/01/21 21:16 Dose: 1,500 mg Documented by: Docusate Sodium (Docusate Sodium 100 Mg Capsule) 100 mg PO BID [facility] Last Admin: 10/01/21 21:16 Dose: 100 mg Documented by: Fluoxetine HCl (Fluoxetine Hcl 20 Mg Capsule) 20 mg PO DAILY [facility] Last Admin: 10/01/21 09:04 Dose: 20 mg Documented by: Fluticasone Propionate (Fluticasone Propionate 100 Mcg Blst.W.Dev) 2 puff INHALE RBID [facility] Last Admin: 10/01/21 21:13 Dose: 2 puff Documented by: Hydroxyzine HCl (Hydroxyzine Hcl 25 Mg Tablet) 25 mg PO Q6H PRN PRN Reason: Anxiety Lactulose (Lactulose 20 Gm/30 Ml Solution) 10 gm PO DAILY PRN PRN Reason: Constipation Lisinopril (Lisinopril 10 Mg Tablet) 10 mg PO BEDTIME [facility]; Protocol Last Admin: 10/01/21 21:16 Dose: 10 mg Documented by: Magnesium Hydroxide (Milk Of Magnesia 30 Ml Oral.Susp) 30 ml PO DAILY PRN PRN Reason: Constipation Montelukast Sodium (Montelukast Sodium 10 Mg Tablet) 10 mg PO DAILY [facility] Last Admin: 10/01/21 09:04 Dose: 10 mg Documented by: Non-Formulary Medication (Menthol) 2.5 % TOPICAL TID PRN PRN Reason: musculoskeletal pain Last Admin: 10/01/21 21:14 Dose: 2.5 % Documented by: Omeprazole (Omeprazole 20 Mg Capsule.Dr) 20 mg PO BID [facility] Last Admin: 10/01/21 21:16 Dose: 20 mg Documented by: Perphenazine (Perphenazine 2 Mg Tablet) 2 mg PO TID [facility] Last Admin: 10/01/21 21:15 Dose: 2 mg Documented by: Polyethylene Glycol (Polyethylene Glycol 3350 17 Gm Powd.Pack) 17 gm PO BID [facility] Last Admin: 10/01/21 21:14 Dose: 17 gm Documented by: Senna (Sennosides 8.6 Mg Tablet) 17.2 mg PO BEDTIME [facility] Last Admin: 10/01/21 21:15 Dose: 17.2 mg Documented by: Tramadol HCl (Tramadol Hcl 50 Mg Tablet) 50 mg PO BID [facility] Last Admin: 10/01/21 21:16 Dose: 50 mg Documented by: Trazodone HCl (Trazodone Hcl 50 Mg Tablet) 50 mg PO BEDTIME PRN PRN Reason: Insomnia Allergies Allergies Allergy/AdvReac Type Severity Reaction Status Date / Time diazepam [From Valium] Allergy Unknown Unknown Verified 08/10/21 20:04 haloperidol [From Haldol] Allergy Unknown Unknown Verified 08/10/21 20:04 Penicillins Allergy Unknown Unknown Verified 08/10/21 20:04 risperidone [From Risperdal] Allergy Unknown Unknown Verified 08/10/21 20:04 aspirin [Aspirin] AdvReac Intermediate Vomiting Verified 08/10/21 20:04 trazodone [TRAZODONE] AdvReac Intermediate NAUSEA & Verified 08/10/21 20:04 VOMITING Assessment & Plan Assessment & Plan (1) Schizophrenia: Status: Acute Code(s): F20.9 - Schizophrenia, unspecified Plan Ms. Beckwith is a 56 year-old woman with long hx of schizophrenia. 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 Pt presents with exacerbation of CAH and SI. She also reports weakness, chronic constipation (on clozaril). Added miralax BID, which was recommended by GI back in november. Will do KUB to r/o obstruction or other complications as pt with hx of acute colitis. We discussed risks, benefits and alternative treatment option. PLAN 1. Admit to M3, CV, 15 mins checks for safety. 2. Continue current dose of clozaril, will check clozaril levels 3. monitor ANC weekly while on unit. 4. constipation- KUB, adding miralax BID and continue colace 100mg po bid. 5. Obtain collateral information 6. Aftercare planning. - 10/01/21: Added Trilafon 2 mg TID. Titrate as tolerated and clinically indicated I spent minutes with the patient and/or on the patient floor today, greater than?50% of which was spent counseling/coordinating care. Patient educated on: medication risk/benefits Reason for contiued inpatient stay Substantial Risk for: harm to self, inability to function and rapid decompensation
[2021-10-01] MEDS: clonazePAM 1 MG TABLET PO (21:14)
[2021-10-01] MEDS: polyethylene glycoL 3350 17 GM POWD.PACK PO (21:14)
[2021-10-01] MEDS: Sennosides 8.6 MG TABLET 17.2 MG PO (21:15)
[2021-10-01] MEDS: bisacodyL 5 MG TABLET.DR 10 MG PO (21:15)
[2021-10-01] MEDS: cloZAPine 100 MG TABLET 300 MG PO (21:15)
[2021-10-01] MEDS: Perphenazine 2 MG TABLET PO (21:15)
[2021-10-01] MEDS: lisinopriL 10 MG TABLET PO (21:16)
[2021-10-01] MEDS: Divalproex Sodium ER 500 MG TAB.ER.24H 1500 MG PO (21:16)
[2021-10-01 21:22] VITALS: BP 116/61; PULSE 79; TEMP 36.4; O2SAT 94
[2021-10-02 09:16] VITALS: BP 113/77; PULSE 89; TEMP 36.3; O2SAT 98
[2021-10-02] MEDS: traMADoL HCL 50 MG TABLET PO ×2 (09:43→22:20)
[2021-10-02] MEDS: Perphenazine 2 MG TABLET PO ×3 (09:43→22:19)
[2021-10-02] MEDS: Docusate Sodium 100 MG CAPSULE PO ×2 (09:43→22:19)
[2021-10-02] MEDS: clonazePAM 0.5 MG TABLET PO (09:43)
[2021-10-02] MEDS: cloZAPine 25 MG TABLET 50 MG PO (09:44)
[2021-10-02] MEDS: Montelukast Sodium 10 MG TABLET PO (09:44)
[2021-10-02] MEDS: FLUoxetine HCl 20 MG CAPSULE PO (09:45)
[2021-10-02] MEDS: Omeprazole 20 MG CAPSULE.DR PO ×2 (09:45→22:20)
[2021-10-02] MEDS: Fluticasone Propionate 100 MCG BLST.W.DEV 2 PUFF INHALE ×2 (09:49→22:26)
--- NOTE | 2021-10-02 14:00 | P.PNPSI_ITS ---
Subjective Subjective Date of Service: 10/02/21 Reason For Visit: AH/SI Interim History: Patient seen and discussed with team. She continues to report AH 03/29 with command hallucinations. She has been more tired and sleepy. She was less anxious today. She is isolative today. Patient reports she is hearing voices that tell her to hurt herself but reports doesn't want to act on them. In the milieu, patient is safe but isolative in behavior. Denies SI/SIB/HI upon inquiry. Denies irritability or assaultive ideation. Says she feels safe otherwise. Had a bowel movement. Medication Compliance: Yes Review of Systems Review of Systems Yes all other systems are reviewed and are negative Constitutional: Reports no additional constitutional complaints, Denies body ache(s), Denies chills, Reports fatigue, Denies fever(s), Denies headache(s), Reports lethargy and Reports weakness Eyes: Reports no additional eye complaints and Denies change in vision Reports system reviewed and no additional complaints, except as documented, Denies dizziness, Denies headache(s), Denies nasal congestion, Denies nasal discharge and Denies neck pain Cardiovascular: Reports no additional cardiovascular complaints, Denies chest pain, Denies chest pain at rest, Denies chest pain with activity, Denies Epigastric Pain, Denies diaphoresis, Denies syncope, Denies rapid heart rate, Denies leg edema, Reports lightheadedness, Denies radiating jaw, neck or arm pain, Denies palpitations, Denies dyspnea and Reports orthopnea Respiratory: Reports no additional respiratory complaints, Denies chest congestion, Denies cough, Denies pain on inspiration and Denies dyspnea Gastrointestinal: Reports no additional gastrointestinal complaints, Reports abdominal pain, Reports constipation, Denies diarrhea, Denies nausea and Denies vomiting Musculoskeletal: Reports no additional musculoskeletal complaints, Reports back pain, Denies arthralgias, Denies joint swelling, Denies neck pain, Denies numbness and Denies tingling Skin/Breast: Reports system reviewed and no additional complaints, except as docu and Denies rash Reports system reviewed and no additional complaints, except as documented, Denies Abnormal speech present, Denies dizziness, Denies syncope, Denies headache(s), Denies numbness, Denies tingling and Reports weakness Psychiatric: Denies anxiety, Reports depression, Reports paranoia, Reports visual hallucinations, Reports hallucinations, Denies homicidal ideation and Reports suicidal ideation Endocrine: Reports fatigue and Denies palpitations Mental Status Exam Mental Status Exam Narrative: Appearance: short stature, , reports weakness, dizziness, Behavior: anxious, cooperative Psychomotor: tremors anxious speech: clear, normal rate/rhythm/volume, spontaneous Mood: tired Affect: blunted, congruent, anxious AH/VH: CAH telling her to harm self SI: passive, no plan or intent Delusions: paranoid Insight/judgment: fair x 2. Memory/cog: alert, oriented x 3. not formally tested. Diagnostics Vital Signs (24Hr): Vital Signs - 24 hr 10/01/21 21:22 10/02/21 09:16 Temperature 97.5 F 97.3 F Pulse Rate 79 89 Blood Pressure 116/61 113/77 Pulse Oximetry 94 98 BMI result Body Mass Index 33.1 Labs Results: 09/29/21 13:57 09/27/21 15:36 Imaging Radiology Impressions: ITS Impressions KUB X-Ray 09/29/21 15:10 IMPRESSION: Large volume of stool throughout colon. Medications Medications Current Medications Acetaminophen (Acetaminophen 325 Mg Tablet) 650 mg PO Q6H PRN PRN Reason: Headache/Pain Mild Scale (1-3) Last Admin: 09/29/21 09:43 Dose: 650 mg Documented by: Al Hydroxide/Mg Hydroxide (Magnesium Hydrox/Alum Hydrox 30 Ml Oral.Susp) 30 ml PO Q6H PRN PRN Reason: Heartburn/Nausea Albuterol Sulfate (Albuterol Sulfate 90 Mcg 8 Gm Inhaler) 2 puff INHALE Q4H PRN PRN Reason: Wheezing Bisacodyl (Bisacodyl 5 Mg Tablet.) 10 mg PO BEDTIME [facility] Last Admin: 10/01/21 21:15 Dose: 10 mg Documented by: Clonazepam (Clonazepam 0.5 Mg Tablet) 0.5 mg PO DAILY [facility] Last Admin: 10/02/21 09:43 Dose: 0.5 mg Documented by: Clonazepam (Clonazepam 1 Mg Tablet) 1 mg PO BEDTIME [facility] Last Admin: 10/01/21 21:14 Dose: 1 mg Documented by: Clozapine (Clozapine 25 Mg Tablet) 50 mg PO DAILY [facility] Last Admin: 10/02/21 09:44 Dose: 50 mg Documented by: Clozapine (Clozapine 100 Mg Tablet) 300 mg PO BEDTIME [facility] Last Admin: 10/01/21 21:15 Dose: 300 mg Documented by: Divalproex Sodium (Divalproex Sodium Er 500 Mg Tab.Er.24h) 1,500 mg PO BEDTIME [facility] Last Admin: 10/01/21 21:16 Dose: 1,500 mg Documented by: Docusate Sodium (Docusate Sodium 100 Mg Capsule) 100 mg PO BID [facility] Last Admin: 10/02/21 09:43 Dose: 100 mg Documented by: Fluoxetine HCl (Fluoxetine Hcl 20 Mg Capsule) 20 mg PO DAILY [facility] Last Admin: 10/02/21 09:45 Dose: 20 mg Documented by: Fluticasone Propionate (Fluticasone Propionate 100 Mcg Blst.W.Dev) 2 puff INHALE RBID [facility] Last Admin: 10/02/21 09:49 Dose: 2 puff Documented by: Hydroxyzine HCl (Hydroxyzine Hcl 25 Mg Tablet) 25 mg PO Q6H PRN PRN Reason: Anxiety Lactulose (Lactulose 20 Gm/30 Ml Solution) 10 gm PO DAILY PRN PRN Reason: Constipation Lisinopril (Lisinopril 10 Mg Tablet) 10 mg PO BEDTIME [facility]; Protocol Last Admin: 10/01/21 21:16 Dose: 10 mg Documented by: Magnesium Hydroxide (Milk Of Magnesia 30 Ml Oral.Susp) 30 ml PO DAILY PRN PRN Reason: Constipation Montelukast Sodium (Montelukast Sodium 10 Mg Tablet) 10 mg PO DAILY [facility] Last Admin: 10/02/21 09:44 Dose: 10 mg Documented by: Non-Formulary Medication (Menthol) 2.5 % TOPICAL TID PRN PRN Reason: musculoskeletal pain Last Admin: 10/01/21 21:14 Dose: 2.5 % Documented by: Omeprazole (Omeprazole 20 Mg Capsule.Dr) 20 mg PO BID [facility] Last Admin: 10/02/21 09:45 Dose: 20 mg Documented by: Perphenazine (Perphenazine 2 Mg Tablet) 2 mg PO TID [facility] Last Admin: 10/02/21 09:43 Dose: 2 mg Documented by: Polyethylene Glycol (Polyethylene Glycol 3350 17 Gm Powd.Pack) 17 gm PO BID [facility] Last Admin: 10/02/21 09:49 Dose: Not Given Documented by: Senna (Sennosides 8.6 Mg Tablet) 17.2 mg PO BEDTIME [facility] Last Admin: 10/01/21 21:15 Dose: 17.2 mg Documented by: Tramadol HCl (Tramadol Hcl 50 Mg Tablet) 50 mg PO BID [facility] Last Admin: 10/02/21 09:43 Dose: 50 mg Documented by: Trazodone HCl (Trazodone Hcl 50 Mg Tablet) 50 mg PO BEDTIME PRN PRN Reason: Insomnia Allergies Allergies Allergy/AdvReac Type Severity Reaction Status Date / Time diazepam [From Valium] Allergy Unknown Unknown Verified 08/10/21 20:04 haloperidol [From Haldol] Allergy Unknown Unknown Verified 08/10/21 20:04 Penicillins Allergy Unknown Unknown Verified 08/10/21 20:04 risperidone [From Risperdal] Allergy Unknown Unknown Verified 08/10/21 20:04 aspirin [Aspirin] AdvReac Intermediate Vomiting Verified 08/10/21 20:04 trazodone [TRAZODONE] AdvReac Intermediate NAUSEA & Verified 08/10/21 20:04 VOMITING Assessment & Plan Assessment & Plan (1) Schizophrenia: Status: Acute Code(s): F20.9 - Schizophrenia, unspecified Plan Ms. Beckwith is a 56 year-old woman with long hx of schizophrenia. Known to this unit and this signwriter through past admission with similar presentation. Pt presents with exacerbation of CAH and SI. She also reports weakness, chronic constipation (on clozaril). Added miralax BID, which was recommended by GI back in november. Will do KUB to r/o obstruction or other complications as pt with hx of acute colitis. We discussed risks, benefits and alternative treatment option. PLAN 1. Admit to M3, CV, 15 mins checks for safety. 2. Continue current dose of clozaril, will check clozaril levels 3. monitor ANC weekly while on unit. 4. constipation- KUB, adding miralax BID and continue colace 100mg po bid. 5. Obtain collateral information 6. Aftercare planning. - 10/01/21: Added Trilafon 2 mg TID. Titrate as tolerated and clinically indicated 10/02: No change I spent minutes with the patient and/or on the patient floor today, greater than?50% of which was spent counseling/coordinating care. Patient educated on: medication risk/benefits Reason for contiued inpatient stay Substantial Risk for: harm to self and inability to function
[2021-10-02 22:16] VITALS: BP 142/85; PULSE 99; TEMP 36.2; O2SAT 96
[2021-10-02] MEDS: Divalproex Sodium ER 500 MG TAB.ER.24H 1500 MG PO (22:18)
[2021-10-02] MEDS: bisacodyL 5 MG TABLET.DR 10 MG PO (22:19)
[2021-10-02] MEDS: Sennosides 8.6 MG TABLET 17.2 MG PO (22:19)
[2021-10-02] MEDS: lisinopriL 10 MG TABLET PO (22:19)
[2021-10-02] MEDS: clonazePAM 1 MG TABLET PO (22:19)
[2021-10-02] MEDS: cloZAPine 100 MG TABLET 300 MG PO (22:20)
[2021-10-02] MEDS: polyethylene glycoL 3350 17 GM POWD.PACK PO (22:28)
[2021-10-03] MEDS: Omeprazole 20 MG CAPSULE.DR PO ×2 (09:54→22:08)
[2021-10-03] MEDS: cloZAPine 25 MG TABLET 50 MG PO (09:54)
[2021-10-03] MEDS: Docusate Sodium 100 MG CAPSULE PO ×2 (09:55→22:10)
[2021-10-03] MEDS: Montelukast Sodium 10 MG TABLET PO (09:55)
[2021-10-03] MEDS: FLUoxetine HCl 20 MG CAPSULE PO (09:55)
[2021-10-03] MEDS: traMADoL HCL 50 MG TABLET PO ×2 (09:55→22:09)
[2021-10-03] MEDS: Perphenazine 2 MG TABLET PO ×2 (09:56→15:42)
[2021-10-03 10:57] VITALS: BP 104/64; PULSE 96; RESP 18; TEMP 36.8; O2SAT 96
[2021-10-03] MEDS: Fluticasone Propionate 100 MCG BLST.W.DEV 2 PUFF INHALE ×2 (13:03→22:13)
--- NOTE | 2021-10-03 16:47 | HO.PSYCHPN ---
Subjective Subjective Date of Service: 10/03/21 Reason For Visit: AH/SI Interim History: Patient seen and discussed with team. Patient evaluated this today and upon interview she reports she feels so, so. Denies benefit on trilafon, no side effects. Willing to trial an increased dose. Says her hallucinations are worse in the morning. Sleep is good, however she has been waking up early. Still constipated despite sennakot, miralax, says last BM was 4 days ago, has some nausea, GI distress, but she has been eating and passing gas. Says she had VH of snakes in the shower. Some paranoia, asks if she is safe here and was able to be reassured. In the milieu, patient is safe and appropriate in behavior. Denies SI/SIB/HI upon inquiry. Denies irritability or assaultive ideation. Medication Compliance: Yes Side effects from medications: No Attending Groups: No Review of Systems Acute medical concerns: No Medical Review of Systems: unchanged Mental Status Exam Mental Status Exam Narrative: Appearance: short stature, , reports weakness, dizziness, Behavior: anxious, cooperative Psychomotor: tremors, anxious speech: clear, normal rate/rhythm/volume, spontaneous Mood: scared Affect: blunted, congruent, anxious AH/VH: VH of snakes, CAH telling her to harm herself but able to ignore voices SI: passive, no plan or intent Delusions: paranoid Insight/judgment: fair x 2. Memory/cog: alert, oriented x 3. not formally tested. Diagnostics Vital Signs (24Hr): Vital Signs - 24 hr 10/02/21 22:16 10/03/21 10:57 Temperature 97.2 F 98.2 F Pulse Rate 99 96 Respiratory Rate 18 Blood Pressure 142/85 H 104/64 Pulse Oximetry 96 96 BMI result Body Mass Index 33.1 Labs Results: 09/29/21 13:57 09/27/21 15:36 Imaging Radiology Impressions: ITS Impressions KUB X-Ray 09/29/21 15:10 IMPRESSION: Large volume of stool throughout colon. Medications Medications Current Medications Acetaminophen (Acetaminophen 325 Mg Tablet) 650 mg PO Q6H PRN PRN Reason: Headache/Pain Mild Scale (1-3) Last Admin: 09/29/21 09:43 Dose: 650 mg Documented by: Al Hydroxide/Mg Hydroxide (Magnesium Hydrox/Alum Hydrox 30 Ml Oral.Susp) 30 ml PO Q6H PRN PRN Reason: Heartburn/Nausea Albuterol Sulfate (Albuterol Sulfate 90 Mcg 8 Gm Inhaler) 2 puff INHALE Q4H PRN PRN Reason: Wheezing Bisacodyl (Bisacodyl 5 Mg Tablet.Dr) 10 mg PO BEDTIME [facility] Last Admin: 10/02/21 22:19 Dose: 10 mg Documented by: Clozapine (Clozapine 25 Mg Tablet) 50 mg PO DAILY [facility] Last Admin: 10/03/21 09:54 Dose: 50 mg Documented by: Clozapine (Clozapine 100 Mg Tablet) 300 mg PO BEDTIME [facility] Last Admin: 10/02/21 22:20 Dose: 300 mg Documented by: Divalproex Sodium (Divalproex Sodium Er 500 Mg Tab.Er.24h) 1,500 mg PO BEDTIME [facility] Last Admin: 10/02/21 22:18 Dose: 1,500 mg Documented by: Docusate Sodium (Docusate Sodium 100 Mg Capsule) 100 mg PO BID [facility] Last Admin: 10/03/21 09:55 Dose: 100 mg Documented by: Fluoxetine HCl (Fluoxetine Hcl 20 Mg Capsule) 20 mg PO DAILY [facility] Last Admin: 10/03/21 09:55 Dose: 20 mg Documented by: Fluticasone Propionate (Fluticasone Propionate 100 Mcg Blst.W.Dev) 2 puff INHALE RBID [facility] Last Admin: 10/03/21 13:03 Dose: 2 puff Documented by: Hydroxyzine HCl (Hydroxyzine Hcl 25 Mg Tablet) 25 mg PO Q6H PRN PRN Reason: Anxiety Lactulose (Lactulose 20 Gm/30 Ml Solution) 10 gm PO DAILY PRN PRN Reason: Constipation Lisinopril (Lisinopril 10 Mg Tablet) 10 mg PO BEDTIME [facility]; Protocol Last Admin: 10/02/21 22:19 Dose: 10 mg Documented by: Magnesium Hydroxide (Milk Of Magnesia 30 Ml Oral.Susp) 30 ml PO DAILY PRN PRN Reason: Constipation Montelukast Sodium (Montelukast Sodium 10 Mg Tablet) 10 mg PO DAILY [facility] Last Admin: 10/03/21 09:55 Dose: 10 mg Documented by: Non-Formulary Medication (Menthol) 2.5 % TOPICAL TID PRN PRN Reason: musculoskeletal pain Last Admin: 10/02/21 23:29 Dose: 2.5 % Documented by: Omeprazole (Omeprazole 20 Mg Capsule.) 20 mg PO BID [facility] Last Admin: 10/03/21 09:54 Dose: 20 mg Documented by: Perphenazine (Perphenazine 2 Mg Tablet) 2 mg PO TID [facility] Last Admin: 10/03/21 15:42 Dose: 2 mg Documented by: Polyethylene Glycol (Polyethylene Glycol 3350 17 Gm Powd.Pack) 17 gm PO BID [facility] Last Admin: 10/03/21 09:59 Dose: Not Given Documented by: Senna (Sennosides 8.6 Mg Tablet) 17.2 mg PO BEDTIME [facility] Last Admin: 10/02/21 22:19 Dose: 17.2 mg Documented by: Tramadol HCl (Tramadol Hcl 50 Mg Tablet) 50 mg PO BID [facility] Last Admin: 10/03/21 09:55 Dose: 50 mg Documented by: Trazodone HCl (Trazodone Hcl 50 Mg Tablet) 50 mg PO BEDTIME PRN PRN Reason: Insomnia Allergies Allergies Allergy/AdvReac Type Severity Reaction Status Date / Time diazepam [From Valium] Allergy Unknown Unknown Verified 08/10/21 20:04 haloperidol [From Haldol] Allergy Unknown Unknown Verified 08/10/21 20:04 Penicillins Allergy Unknown Unknown Verified 08/10/21 20:04 risperidone [From Risperdal] Allergy Unknown Unknown Verified 08/10/21 20:04 aspirin [Aspirin] AdvReac Intermediate Vomiting Verified 08/10/21 20:04 trazodone [TRAZODONE] AdvReac Intermediate NAUSEA & Verified 08/10/21 20:04 VOMITING Assessment & Plan Assessment & Plan (1) Schizophrenia: Status: Acute Code(s): F20.9 - Schizophrenia, unspecified Plan Ms. Beckwith is a 56 year-old woman with long hx of schizophrenia. 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 Pt presents with exacerbation of CAH and SI. She also reports weakness, chronic constipation (on clozaril). Added miralax BID, which was recommended by GI back in november. Will do KUB to r/o obstruction or other complications as pt with hx of acute colitis. We discussed risks, benefits and alternative treatment option. PLAN 1. Admit to M3, CV, 15 mins checks for safety. 2. Continue current dose of clozaril, will check clozaril levels 3. monitor ANC weekly while on unit. 4. constipation- KUB, adding miralax BID and continue colace 100mg po bid. 5. Obtain collateral information 6. Aftercare planning. - 10/01/21: Added Trilafon 2 mg TID. Titrate as tolerated and clinically indicated 10/02: No change 10/03: increase trilafon to 4 mg TID I spent minutes with the patient and/or on the patient floor today, greater than?50% of which was spent counseling/coordinating care. Reason for contiued inpatient stay Substantial Risk for: rapid decompensation and med/psych decompensation
[2021-10-03 22:02] VITALS: BP 128/90; PULSE 98; TEMP 36.2; O2SAT 97
[2021-10-03] MEDS: lisinopriL 10 MG TABLET PO (22:08)
[2021-10-03] MEDS: cloZAPine 100 MG TABLET 300 MG PO (22:08)
[2021-10-03] MEDS: Sennosides 8.6 MG TABLET 17.2 MG PO (22:09)
[2021-10-03] MEDS: Divalproex Sodium ER 500 MG TAB.ER.24H 1500 MG PO (22:09)
[2021-10-03] MEDS: bisacodyL 5 MG TABLET.DR 10 MG PO (22:10)
[2021-10-03] MEDS: Perphenazine 4 MG TABLET PO (22:10)
[2021-10-03] MEDS: polyethylene glycoL 3350 17 GM POWD.PACK PO (22:13)
[2021-10-04 08:20] VITALS: BP 114/58; PULSE 89; RESP 18; O2SAT 95
[2021-10-04] MEDS: cloZAPine 25 MG TABLET 50 MG PO (08:51)
[2021-10-04] MEDS: traMADoL HCL 50 MG TABLET PO (08:52)
[2021-10-04] MEDS: FLUoxetine HCl 20 MG CAPSULE PO (08:52)
[2021-10-04] MEDS: Omeprazole 20 MG CAPSULE.DR PO ×2 (08:52→22:34)
[2021-10-04] MEDS: Docusate Sodium 100 MG CAPSULE PO ×2 (08:52→22:34)
[2021-10-04] MEDS: Montelukast Sodium 10 MG TABLET PO (08:54)
[2021-10-04] MEDS: Perphenazine 4 MG TABLET PO ×2 (08:54→15:06)
[2021-10-04] MEDS: polyethylene glycoL 3350 17 GM POWD.PACK PO ×2 (08:56→22:34)
[2021-10-04] MEDS: Fluticasone Propionate 100 MCG BLST.W.DEV 2 PUFF INHALE ×2 (09:37→22:43)
[2021-10-04] MEDS: Lactulose 20 GM/30 ML SOLUTION 10 GM PO (12:33)
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
--- NOTE | 2021-10-04 17:47 | PC.NURSE ---
Patient reports ongoing constipation, no BM x4 days, some abd discomfort. Given prune juice and lactulose, results pending at this time.
[2021-10-04 18:00] VITALS: BP 131/70; PULSE 98; RESP 18; TEMP 36.2; O2SAT 97
[2021-10-04] MEDS: Divalproex Sodium ER 500 MG TAB.ER.24H 1500 MG PO (22:34)
[2021-10-04] MEDS: bisacodyL 5 MG TABLET.DR 10 MG PO (22:34)
[2021-10-04] MEDS: lisinopriL 10 MG TABLET PO (22:35)
[2021-10-04] MEDS: Perphenazine 2 MG TABLET PO (22:35)
[2021-10-04] MEDS: Sennosides 8.6 MG TABLET 17.2 MG PO (22:35)
[2021-10-04] MEDS: cloZAPine 100 MG TABLET 300 MG PO (22:42)
[2021-10-05] MEDS: hydrOXYzine HCL 25 MG TABLET PO (00:04)
[2021-10-05 07:22] LABS: Neut%MD 48.3 %; Neutrophils Absolute Auto 4.1 x10*3/uL (2.0-8.3); WBCANC 8.5 X10*3/uL
[2021-10-05 08:03] VITALS: BP 124/66; PULSE 100; RESP 16; TEMP 36.2; O2SAT 99
[2021-10-05] MEDS: Perphenazine 2 MG TABLET PO (08:14)
[2021-10-05] MEDS: polyethylene glycoL 3350 17 GM POWD.PACK PO ×2 (08:14→21:11)
[2021-10-05] MEDS: cloZAPine 25 MG TABLET 50 MG PO (08:14)
[2021-10-05] MEDS: Docusate Sodium 100 MG CAPSULE PO ×2 (08:14→21:12)
[2021-10-05] MEDS: FLUoxetine HCl 20 MG CAPSULE PO (08:15)
[2021-10-05] MEDS: Montelukast Sodium 10 MG TABLET PO (08:15)
[2021-10-05] MEDS: Omeprazole 20 MG CAPSULE.DR PO ×2 (08:15→21:12)
[2021-10-05] MEDS: Fluticasone Propionate 100 MCG BLST.W.DEV 2 PUFF INHALE ×2 (09:46→21:13)
[2021-10-05] MEDS: clonazePAM 0.5 MG TABLET PO (10:35)
[2021-10-05] MEDS: Mineral OiL enema 133 ML ENEMA PR (12:36)
--- NOTE | 2021-10-05 13:45 | P.PNPSI_ITS ---
Subjective Subjective Date of Service: 10/05/21 Reason For Visit: AH/SI Interim History: pt found lying in bed ordering food for the rest of the day. quality assurance coordinator helps with food ordering. pt informs MD through quality assurance coordinator that she is doing a little better re mood, AH, VH today. she does indicate multiple times that she will not be ready to discharge by sunday. she instructs MD to tell SW that fact, as she believes SW was telling her she will be discharging sunday or sunday. MD informs pt of enema's having been ordered, about which pt appears pleased. no other requests or complaints. per staff, constipated. needs enema. concerned oniel fell off and she didn't sleep well last night. Mental Status Exam Mental Status Exam Narrative: A&O. Overweight, in casual attire, lying down in bed. fair eye contact, attentive. No abnormal involuntary movements. Calm, somewhat guarded, overall engaged. Non-pressured speech, spontaneous with regular rate and rhythm, normal volume and prosody. No prolonged speech latency or dysarthria. Mood is ?a little better,? affect is flat. no SI/SIB/HI upon inquiry. Endorses command AH to harm herself. Denies delusional thought content. Thoughts are concrete, linear. No known cognitive or memory impairment. Diagnostics Vital Signs (24Hr): Vital Signs - 24 hr 10/04/21 18:00 10/05/21 08:03 Temperature 97.2 F 97.2 F Pulse Rate 98 100 Respiratory Rate 18 16 Blood Pressure 131/70 124/66 Pulse Oximetry 97 99 BMI result Body Mass Index 33.1 Labs Results: 09/29/21 13:57 09/27/21 15:36 Labs: Laboratory Results - last 48 hr 10/05/21 07:05 Absolute Neuts (auto) 4.1 Imaging Radiology Impressions: ITS Impressions KUB X-Ray 09/29/21 15:10 IMPRESSION: Large volume of stool throughout colon. Medications Medications Current Medications Acetaminophen (Acetaminophen 325 Mg Tablet) 650 mg PO Q6H PRN PRN Reason: Headache/Pain Mild Scale (1-3) Last Admin: 09/29/21 09:43 Dose: 650 mg Documented by: Al Hydroxide/Mg Hydroxide (Magnesium Hydrox/Alum Hydrox 30 Ml Oral.Susp) 30 ml PO Q6H PRN PRN Reason: Heartburn/Nausea Albuterol Sulfate (Albuterol Sulfate 90 Mcg 8 Gm Inhaler) 2 puff INHALE Q4H PRN PRN Reason: Wheezing Bisacodyl (Bisacodyl 5 Mg Tablet.Dr) 10 mg PO BEDTIME [facility] Last Admin: 10/04/21 22:34 Dose: 10 mg Documented by: Clonazepam (Clonazepam 0.5 Mg Tablet) 0.5 mg PO DAILY [facility] Last Admin: 10/05/21 10:35 Dose: 0.5 mg Documented by: Clonazepam (Clonazepam 1 Mg Tablet) 1 mg PO BEDTIME [facility] Clozapine (Clozapine 25 Mg Tablet) 50 mg PO DAILY [facility] Last Admin: 10/05/21 08:14 Dose: 50 mg Documented by: Clozapine (Clozapine 100 Mg Tablet) 300 mg PO BEDTIME [facility] Last Admin: 10/04/21 22:42 Dose: 300 mg Documented by: Divalproex Sodium (Divalproex Sodium Er 500 Mg Tab.Er.24h) 1,500 mg PO BEDTIME [facility] Last Admin: 10/04/21 22:34 Dose: 1,500 mg Documented by: Docusate Sodium (Docusate Sodium 100 Mg Capsule) 100 mg PO BID [facility] Last Admin: 10/05/21 08:14 Dose: 100 mg Documented by: Fluoxetine HCl (Fluoxetine Hcl 20 Mg Capsule) 20 mg PO DAILY [facility] Last Admin: 10/05/21 08:15 Dose: 20 mg Documented by: Fluticasone Propionate (Fluticasone Propionate 100 Mcg Blst.W.Dev) 2 puff INHALE RBID [facility] Last Admin: 10/05/21 09:46 Dose: 2 puff Documented by: Hydroxyzine HCl (Hydroxyzine Hcl 25 Mg Tablet) 25 mg PO Q6H PRN PRN Reason: Anxiety Last Admin: 10/05/21 00:04 Dose: 25 mg Documented by: Lactulose (Lactulose 20 Gm/30 Ml Solution) 10 gm PO DAILY PRN PRN Reason: Constipation Last Admin: 10/04/21 12:33 Dose: 10 gm Documented by: Lisinopril (Lisinopril 10 Mg Tablet) 10 mg PO BEDTIME [facility]; Protocol Last Admin: 10/04/21 22:35 Dose: 10 mg Documented by: Magnesium Hydroxide (Milk Of Magnesia 30 Ml Oral.Susp) 30 ml PO DAILY PRN PRN Reason: Constipation Montelukast Sodium (Montelukast Sodium 10 Mg Tablet) 10 mg PO DAILY [facility] Last Admin: 10/05/21 08:15 Dose: 10 mg Documented by: Non-Formulary Medication (Menthol) 2.5 % TOPICAL TID PRN PRN Reason: musculoskeletal pain Last Admin: 10/04/21 22:43 Dose: 2.5 % Documented by: Omeprazole (Omeprazole 20 Mg Capsule.Dr) 20 mg PO BID [facility] Last Admin: 10/05/21 08:15 Dose: 20 mg Documented by: Polyethylene Glycol (Polyethylene Glycol 3350 17 Gm Powd.Pack) 17 gm PO BID [facility] Last Admin: 10/05/21 08:14 Dose: 17 gm Documented by: Senna (Sennosides 8.6 Mg Tablet) 17.2 mg PO BEDTIME [facility] Last Admin: 10/04/21 22:35 Dose: 17.2 mg Documented by: Trazodone HCl (Trazodone Hcl 50 Mg Tablet) 50 mg PO BEDTIME PRN PRN Reason: Insomnia Allergies Allergies Allergy/AdvReac Type Severity Reaction Status Date / Time diazepam [From Valium] Allergy Unknown Unknown Verified 08/10/21 20:04 haloperidol [From Haldol] Allergy Unknown Unknown Verified 08/10/21 20:04 Penicillins Allergy Unknown Unknown Verified 08/10/21 20:04 risperidone [From Risperdal] Allergy Unknown Unknown Verified 08/10/21 20:04 aspirin [Aspirin] AdvReac Intermediate Vomiting Verified 08/10/21 20:04 trazodone [TRAZODONE] AdvReac Intermediate NAUSEA & Verified 08/10/21 20:04 VOMITING Assessment & Plan Assessment & Plan (1) Schizophrenia: Status: Acute Code(s): F20.9 - Schizophrenia, unspecified Plan Ms. Beckwith is a 56 year-old woman with long hx of schizophrenia. Known to this unit and this check writer through past admission with similar presentation. Pt presents with exacerbation of CAH and SI. She also reports weakness, chronic constipation (on clozaril). Added miralax BID, which was recommended by GI back in november. Will do KUB to r/o obstruction or other complications as pt with hx of acute colitis. We discussed risks, benefits and alternative treatment option. PLAN 1. Admit to M3, CV, 15 mins checks for safety. 2. Continue current dose of clozaril, will check clozaril levels 3. monitor ANC weekly while on unit. 4. constipation- KUB, adding miralax BID and continue colace 100mg po bid. 5. Obtain collateral information 6. Aftercare planning. - 10/01/21: Added Trilafon 2 mg TID. Titrate as tolerated and clinically indicated 10/02: No change 10/03: increase trilafon to 4 mg TID 10/04: decreasing trilafon to 2 TID per outpt piercing mill operator's commentary. 10/05: trilafon DCed. discharge home once stable. I spent minutes with the patient and/or on the patient floor today, greater than?50% of which was spent counseling/coordinating care. Reason for contiued inpatient stay Substantial Risk for: harm to self, inability to function and rapid decompensation
[2021-10-05 16:47] LABS: Clozapine (Clozaril) 589 mcg/L; Norclozapine 164 mcg/L (25-400)
--- NOTE | 2021-10-05 17:49 | PC.NURSE ---
Patient reported no BM in greater than [address] Grace was notified and ordered an enema. Enema was administered at 12:36. Patient had no result from enema. This RN suggested a portable KUB to Dr. Grace, no order received. Glycerin supoository ordered. Results pending.
[2021-10-05] MEDS: Sennosides 8.6 MG TABLET 17.2 MG PO (21:11)
[2021-10-05] MEDS: bisacodyL 5 MG TABLET.DR 10 MG PO (21:12)
[2021-10-05] MEDS: cloZAPine 100 MG TABLET 300 MG PO (21:12)
[2021-10-05] MEDS: Divalproex Sodium ER 500 MG TAB.ER.24H 1500 MG PO (21:12)
[2021-10-05] MEDS: clonazePAM 1 MG TABLET PO (21:13)
[2021-10-05] MEDS: lisinopriL 10 MG TABLET PO (21:13)
[2021-10-05 21:14] VITALS: BP 127/60; PULSE 99; TEMP 36.6; O2SAT 95
[2021-10-05] MEDS: Glycerin Adult SUPP.RECT 1 SUPP PR (22:44)
[2021-10-06] MEDS: polyethylene glycoL 3350 17 GM POWD.PACK PO ×2 (09:34→22:28)
[2021-10-06] MEDS: Fluticasone Propionate 100 MCG BLST.W.DEV 2 PUFF INHALE ×2 (09:34→22:28)
[2021-10-06] MEDS: Docusate Sodium 100 MG CAPSULE PO (09:36)
[2021-10-06] MEDS: clonazePAM 0.5 MG TABLET PO (09:36)
[2021-10-06] MEDS: Montelukast Sodium 10 MG TABLET PO (09:37)
[2021-10-06] MEDS: cloZAPine 25 MG TABLET 50 MG PO (09:37)
[2021-10-06] MEDS: Omeprazole 20 MG CAPSULE.DR PO ×2 (09:37→22:29)
[2021-10-06] MEDS: FLUoxetine HCl 20 MG CAPSULE PO (09:37)
[2021-10-06 09:44] VITALS: BP 103/56; PULSE 97; RESP 17; TEMP 36.2; O2SAT 97
[2021-10-06 12:00] VITALS: BMI 35.7
--- NOTE | 2021-10-06 13:40 | HO.PSYCHPN ---
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 reports her mood continues to trend well, would like to tentatively plan for sunday discharge. seated on bed, more affect, good eye contact. appears better. c/o constipation. reviewed failure of enema and suppository yesterday and that GI consult had been placed. also informed KUB would be ordered. asked for her PO bowel regimen to be advanced. per staff, denies VH, still endorsing CAH. no SI/HI. no results from both enema and suppository yesterday. clozaril dosing increased during the present admission, which may have affected pt's bowel movements. clozaril level 589 as of 09/30. Mental Status Exam Mental Status Exam Narrative: A&O. Overweight, in casual attire, seated on bed. good eye contact, attentive. No abnormal involuntary movements. Calm, not guarded, overall engaged. Non-pressured speech, spontaneous with regular rate and rhythm, normal volume and prosody. No prolonged speech latency or dysarthria. Mood is ?a little bit better,? affect is flexible. no SI/SIB/HI/AVH expressed. Thoughts are concrete, linear. No known cognitive or memory impairment. Diagnostics Vital Signs (24Hr): Vital Signs - 24 hr 10/05/21 21:14 10/06/21 09:44 Temperature 97.9 F 97.2 F Pulse Rate 99 97 Respiratory Rate 17 Blood Pressure 127/60 103/56 L Pulse Oximetry 95 97 BMI result Body Mass Index 35.7 Labs Results: 09/29/21 13:57 09/27/21 15:36 Labs: Laboratory Results - last 48 hr 09/30/21 10/05/21 11:10 07:05 Absolute Neuts (auto) 4.1 Clozapine 589 Norclozapine 164 Imaging Radiology Impressions: ITS Impressions KUB X-Ray 09/29/21 15:10 IMPRESSION: Large volume of stool throughout colon. KUB X-Ray 10/06/21 11:21 IMPRESSION: Significant constipation. The findings are worse compared to previous study 09/29/2021 Medications Medications Current Medications Acetaminophen (Acetaminophen 325 Mg Tablet) 650 mg PO Q6H PRN PRN Reason: Headache/Pain Mild Scale (1-3) Last Admin: 09/29/21 09:43 Dose: 650 mg Documented by: Al Hydroxide/Mg Hydroxide (Magnesium Hydrox/Alum Hydrox 30 Ml Oral.Susp) 30 ml PO Q6H PRN PRN Reason: Heartburn/Nausea Albuterol Sulfate (Albuterol Sulfate 90 Mcg 8 Gm Inhaler) 2 puff INHALE Q4H PRN PRN Reason: Wheezing Bisacodyl (Bisacodyl 5 Mg Tablet.Dr) 10 mg PO BEDTIME [facility] Last Admin: 10/05/21 21:12 Dose: 10 mg Documented by: Clonazepam (Clonazepam 0.5 Mg Tablet) 0.5 mg PO DAILY [facility] Last Admin: 10/06/21 09:36 Dose: 0.5 mg Documented by: Clonazepam (Clonazepam 1 Mg Tablet) 1 mg PO BEDTIME [facility] Last Admin: 10/05/21 21:13 Dose: 1 mg Documented by: Clozapine (Clozapine 25 Mg Tablet) 50 mg PO DAILY [facility] Last Admin: 10/06/21 09:37 Dose: 50 mg Documented by: Clozapine (Clozapine 100 Mg Tablet) 300 mg PO BEDTIME [facility] Last Admin: 10/05/21 21:12 Dose: 300 mg Documented by: Divalproex Sodium (Divalproex Sodium Er 500 Mg Tab.Er.24h) 1,500 mg PO BEDTIME [facility] Last Admin: 10/05/21 21:12 Dose: 1,500 mg Documented by: Docusate Sodium (Docusate Sodium 100 Mg Capsule) 100 mg PO BID [facility] Last Admin: 10/06/21 09:36 Dose: 100 mg Documented by: Fluoxetine HCl (Fluoxetine Hcl 20 Mg Capsule) 20 mg PO DAILY [facility] Last Admin: 10/06/21 09:37 Dose: 20 mg Documented by: Fluticasone Propionate (Fluticasone Propionate 100 Mcg Blst.W.Dev) 2 puff INHALE RBID [facility] Last Admin: 10/06/21 09:34 Dose: 2 puff Documented by: Hydroxyzine HCl (Hydroxyzine Hcl 25 Mg Tablet) 25 mg PO Q6H PRN PRN Reason: Anxiety Last Admin: 10/05/21 00:04 Dose: 25 mg Documented by: Lactulose (Lactulose 20 Gm/30 Ml Solution) 10 gm PO DAILY PRN PRN Reason: Constipation Last Admin: 10/04/21 12:33 Dose: 10 gm Documented by: Lisinopril (Lisinopril 10 Mg Tablet) 10 mg PO BEDTIME [facility]; Protocol Last Admin: 10/05/21 21:13 Dose: 10 mg Documented by: Magnesium Hydroxide (Milk Of Magnesia 30 Ml Oral.Susp) 30 ml PO DAILY PRN PRN Reason: Constipation Montelukast Sodium (Montelukast Sodium 10 Mg Tablet) 10 mg PO DAILY [facility] Last Admin: 10/06/21 09:37 Dose: 10 mg Documented by: Non-Formulary Medication (Menthol) 2.5 % TOPICAL TID PRN PRN Reason: musculoskeletal pain Last Admin: 10/05/21 21:11 Dose: 2.5 % Documented by: Omeprazole (Omeprazole 20 Mg Capsule.Dr) 20 mg PO BID [facility] Last Admin: 10/06/21 09:37 Dose: 20 mg Documented by: Polyethylene Glycol (Polyethylene Glycol 3350 17 Gm Powd.Pack) 17 gm PO BID [facility] Last Admin: 10/06/21 09:34 Dose: 17 gm Documented by: Senna (Sennosides 8.6 Mg Tablet) 17.2 mg PO BEDTIME [facility] Last Admin: 10/05/21 21:11 Dose: 17.2 mg Documented by: Trazodone HCl (Trazodone Hcl 50 Mg Tablet) 50 mg PO BEDTIME PRN PRN Reason: Insomnia Allergies Allergies Allergy/AdvReac Type Severity Reaction Status Date / Time diazepam [From Valium] Allergy Unknown Unknown Verified 08/10/21 20:04 haloperidol [From Haldol] Allergy Unknown Unknown Verified 08/10/21 20:04 Penicillins Allergy Unknown Unknown Verified 08/10/21 20:04 risperidone [From Risperdal] Allergy Unknown Unknown Verified 08/10/21 20:04 aspirin [Aspirin] AdvReac Intermediate Vomiting Verified 08/10/21 20:04 trazodone [TRAZODONE] AdvReac Intermediate NAUSEA & Verified 08/10/21 20:04 VOMITING Assessment & Plan Assessment & Plan (1) Schizophrenia: Status: Acute Code(s): F20.9 - Schizophrenia, unspecified Plan Ms. Beckwith is a 56 year-old woman with long hx of schizophrenia. 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 Pt presents with exacerbation of CAH and SI. She also reports weakness, chronic constipation (on clozaril). Added miralax BID, which was recommended by GI back in november. Will do KUB to r/o obstruction or other complications as pt with hx of acute colitis. We discussed risks, benefits and alternative treatment option. PLAN 1. Admit to M3, CV, 15 mins checks for safety. 2. Continue current dose of clozaril, will check clozaril levels 3. monitor ANC weekly while on unit. 4. constipation- KUB, adding miralax BID and continue colace 100mg po bid. 5. Obtain collateral information 6. Aftercare planning. - 10/01/21: Added Trilafon 2 mg TID. Titrate as tolerated and clinically indicated 10/02: No change 10/03: increased trilafon to 4 mg TID 10/04: decreasing trilafon to 2 TID per outpt healthcare management's commentary. 10/05: trilafon DCed. 10/06: constipation continues, GI consult placed. increase bowel regimen in the meantime. discharge home once stable, tentatively planning for sunday. I spent minutes with the patient and/or on the patient floor today, greater than?50% of which was spent counseling/coordinating care. Reason for contiued inpatient stay Substantial Risk for: harm to self, inability to function and rapid decompensation
--- NOTE | 2021-10-06 13:50 | PM.GICN ---
History of Present Illness Data of Consult Service Date: 10/06/21 Requesting physician: Dominic Grace Primary Care Provider: [facility] Reason for consult: constipation 56 YF admitted to [facility] on 09/27/21 with the following complaints: 56-year-old female with history of schizophrenia here with reports of hearing voices? telling her to cut herself and kill her feeling depressed, seeing bad things-snakes on the floor, red river full of blood ? for 3 days. ? Patient denies any homicidal ideations.? She tells me she has been compliant with her home medications. ? No physical complaints Pt referred to GI for persistent constipation: pt seen with senior software architect.? reports her mood continues to trend well, would like to tentatively plan for sunday discharge.? seated on bed, more affect, good eye contact.? appears better.? c/o constipation.? reviewed failure of enema and suppository yesterday and that GI consult had been placed.? also informed KUB would be ordered.? asked for her PO bowel regimen to be advanced.? per staff, denies VH, still endorsing CAH.? no SI/HI.? no results from both enema and suppository yesterday.? clozaril dosing increased during the present admission, which may have affected pt's bowel movements.? clozaril level 589 as of 09/30. GI Evaluation: History obtained with the help of a Video dough maker # [id number] Pt gives a history of chronic constipation for the past several years. She reports taking prune pills, Senna, Lactulose, stool softeners and dulcolax and Tap water enemas as needed at home. Her symptoms have been worse for the past 4 days. She denies having a bowel movement since hospitalization. She notes intermittent rectal bleeding consisting of BRB associated with straining Patient denies symptoms of heartburn, dysphagia, nausea, vomiting, change in appetite or weight. Patient has asthma and COPD. She admits to smoking 6 to 10 cigarettes daily(has'nt smoked during hospitalization) and denies ETOH or drug abuse Denies being on chronic anticoagulation. Pt [place]. She has 2 children and is on disability at present. 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 IMAGING STUDIES: 10/06/21 KUB SHOWED: There is a significantly large amount of stool seen throughout the colon without any? bowel distention. There is no organomegaly. No radiopaque calculi. Visualized bones are grossly unremarkable.. 12/[address] SCAN SHOWED: Large amount of stool in the colon, without specific evidence for obstruction. Mild stranding noted in the lower abdomen adjacent to a small bowel loop, of uncertain etiology. No significant wall thickening to specifically indicate enteritis. ENDOSCOPIC STUDIES: Patient denies having an EGD or colonoscopy in the past. Review of Systems Review of Systems: Yes all other systems are reviewed and are negative Constitutional: Constitutional: Reports no additional constitutional complaints, Denies body ache(s), Denies chills, Reports fatigue, Denies fever(s), Denies headache(s), Reports lethargy and Reports weakness Eyes: Eyes: Reports no additional eye complaints and Denies change in vision ENT: Reports system reviewed and no additional complaints, except as documented, Denies dizziness, Denies headache(s), Denies nasal congestion, Denies nasal discharge and Denies neck pain Cardiovascular: Cardiovascular: Reports no additional cardiovascular complaints, Denies chest pain, Denies chest pain at rest, Denies chest pain with activity, Denies Epigastric Pain, Denies diaphoresis, Denies syncope, Denies rapid heart rate, Denies leg edema, Reports lightheadedness, Denies radiating jaw, neck or arm pain, Denies palpitations, Denies dyspnea and Reports orthopnea Respiratory: Respiratory: Reports no additional respiratory complaints, Denies chest congestion, Denies cough, Denies pain on inspiration and Denies dyspnea Gastrointestinal: Gastrointestinal: Reports no additional gastrointestinal complaints, Reports abdominal pain, Reports constipation, Denies diarrhea, Denies nausea and Denies vomiting Musculoskeletal: Musculoskeletal: Reports no additional musculoskeletal complaints, Reports back pain, Denies arthralgias, Denies joint swelling, Denies neck pain, Denies numbness and Denies tingling Integumentary/Breasts: Skin/Breast: Reports system reviewed and no additional complaints, except as docu and Denies rash Neurologic: Reports system reviewed and no additional complaints, except as documented, Denies Abnormal speech present, Denies dizziness, Denies syncope, Denies headache(s), Denies numbness, Denies tingling and Reports weakness Psychiatric: Psychiatric: Denies anxiety, Reports depression, Reports paranoia, Reports visual hallucinations, Reports hallucinations, Denies homicidal ideation and Reports suicidal ideation Endocrine: Endocrine: Reports fatigue and Denies palpitations [facility] Past Medical History Medical History (Updated 10/01/21 @ 11:24 by Modesta Xiong) Anxiety Asthma Chronic mental illness COPD (chronic obstructive pulmonary disease) Hyperlipidemia Morbid obesity due to excess calories Schizophrenia Family History Family History Father Throat cancer Mother CVA (cerebral vascular accident) Brother Drug overdose Sister No problems noted. Sister No problems noted. Son No problems noted. Son No problems noted. Surgical History Surgical History H/O right knee surgery History of appendectomy History of tubal ligation Social History 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: Foster Family Household Members Other:: Lanny Soto, Inocencio Soto, - foster parents Housing: Apartment Do you presently have visiting nurse or other home services: Yes (Meds administered by [facility]) Unable to assess alcohol history related to: Unknown Alcohol intake: unknown Patient Tobacco Use Status: Never used Tobacco Tobacco use type: Cigarette Cigarettes Per Day: 10 Smoked in Last 30 Days: No e-Cigarette/Vaping Use: Never Used Patient Interested in Nicotine Replacement: No Patient Given Instructions on How to Stop Smoking: No Second Hand Smoke Exposure: No Use of substances other than those prescribed or required for medical reasons: No Currently Displaying Signs/Symptoms of Drug Intoxication Withdrawal: No Any prior treatment program specific to substance use: No Have you been hit, kicked, punched, or otherwise hurt by someone within the past year? If so, by whom?: No Do you feel safe in your current relationship?: No Current Relationship Is there a partner from a previous relationship who is making you feel unsafe now?: No Are you made to feel afraid or neglected: No Advance Directives: No Advance Directives Information Provided: No Advance Directives Date on File: 03/03/14 Do you have thoughts of harming others: None Do you have a plan to hurt others: No Plan Recently lost weight without trying: No Nutrition Risks: No Nutritional Risk Patient : No : No Poor oral hygiene: No service: No Current occupational status: disabled Sexual orientation: Don't Know Meds Allergies Allergy/AdvReac Type Severity Reaction Status Date / Time diazepam [From Valium] Allergy Unknown Unknown Verified 08/10/21 20:04 haloperidol [From Haldol] Allergy Unknown Unknown Verified 08/10/21 20:04 Penicillins Allergy Unknown Unknown Verified 08/10/21 20:04 risperidone [From Risperdal] Allergy Unknown Unknown Verified 08/10/21 20:04 aspirin [Aspirin] AdvReac Intermediate Vomiting Verified 08/10/21 20:04 trazodone [TRAZODONE] AdvReac Intermediate NAUSEA & Verified 08/10/21 20:04 VOMITING Active Medications: Current Medications Acetaminophen (Acetaminophen 325 Mg Tablet) 650 mg PO Q6H PRN PRN Reason: Headache/Pain Mild Scale (1-3) Last Admin: 09/29/21 09:43 Dose: 650 mg Documented by: Al Hydroxide/Mg Hydroxide (Magnesium Hydrox/Alum Hydrox 30 Ml Oral.Susp) 30 ml PO Q6H PRN PRN Reason: Heartburn/Nausea Albuterol Sulfate (Albuterol Sulfate 90 Mcg 8 Gm Inhaler) 2 puff INHALE Q4H PRN PRN Reason: Wheezing Bisacodyl (Bisacodyl 5 Mg Tablet.Dr) 10 mg PO BEDTIME [facility] Last Admin: 10/05/21 21:12 Dose: 10 mg Documented by: Clonazepam (Clonazepam 0.5 Mg Tablet) 0.5 mg PO DAILY [facility] Last Admin: 10/06/21 09:36 Dose: 0.5 mg Documented by: Clonazepam (Clonazepam 1 Mg Tablet) 1 mg PO BEDTIME [facility] Last Admin: 10/05/21 21:13 Dose: 1 mg Documented by: Clozapine (Clozapine 25 Mg Tablet) 50 mg PO DAILY [facility] Last Admin: 10/06/21 09:37 Dose: 50 mg Documented by: Clozapine (Clozapine 100 Mg Tablet) 300 mg PO BEDTIME [facility] Last Admin: 10/05/21 21:12 Dose: 300 mg Documented by: Divalproex Sodium (Divalproex Sodium Er 500 Mg Tab.Er.24h) 1,500 mg PO BEDTIME [facility] Last Admin: 10/05/21 21:12 Dose: 1,500 mg Documented by: Docusate Sodium (Docusate Sodium 100 Mg Capsule) 100 mg PO BID [facility] Last Admin: 10/06/21 09:36 Dose: 100 mg Documented by: Fluoxetine HCl (Fluoxetine Hcl 20 Mg Capsule) 20 mg PO DAILY [facility] Last Admin: 10/06/21 09:37 Dose: 20 mg Documented by: Fluticasone Propionate (Fluticasone Propionate 100 Mcg Blst.W.Dev) 2 puff INHALE RBID [facility] Last Admin: 10/06/21 09:34 Dose: 2 puff Documented by: Hydroxyzine HCl (Hydroxyzine Hcl 25 Mg Tablet) 25 mg PO Q6H PRN PRN Reason: Anxiety Last Admin: 10/05/21 00:04 Dose: 25 mg Documented by: Lactulose (Lactulose 20 Gm/30 Ml Solution) 10 gm PO DAILY PRN PRN Reason: Constipation Last Admin: 10/04/21 12:33 Dose: 10 gm Documented by: Lisinopril (Lisinopril 10 Mg Tablet) 10 mg PO BEDTIME [facility]; Protocol Last Admin: 10/05/21 21:13 Dose: 10 mg Documented by: Magnesium Hydroxide (Milk Of Magnesia 30 Ml Oral.Susp) 30 ml PO DAILY PRN PRN Reason: Constipation Montelukast Sodium (Montelukast Sodium 10 Mg Tablet) 10 mg PO DAILY [facility] Last Admin: 10/06/21 09:37 Dose: 10 mg Documented by: Non-Formulary Medication (Menthol) 2.5 % TOPICAL TID PRN PRN Reason: musculoskeletal pain Last Admin: 10/05/21 21:11 Dose: 2.5 % Documented by: Omeprazole (Omeprazole 20 Mg Capsule.Dr) 20 mg PO BID [facility] Last Admin: 10/06/21 09:37 Dose: 20 mg Documented by: Polyethylene Glycol (Polyethylene Glycol 3350 17 Gm Powd.Pack) 17 gm PO BID [facility] Last Admin: 10/06/21 09:34 Dose: 17 gm Documented by: Senna (Sennosides 8.6 Mg Tablet) 17.2 mg PO BEDTIME [facility] Last Admin: 10/05/21 21:11 Dose: 17.2 mg Documented by: Trazodone HCl (Trazodone Hcl 50 Mg Tablet) 50 mg PO BEDTIME PRN PRN Reason: Insomnia Home Medications Medication Instructions Recorded Confirmed Last Taken Type lactulose 10 gram/15 mL oral 15 ml PO DAILY PRN 07/07/21 09/27/21 08/09/21 History solution (Generlac) albuterol sulfate 90 mcg/actuation 2 puff PO Q4-6H PRN 08/11/21 09/27/21 Unknown History aerosol inhaler (ProAir HFA) bisacodyl 5 mg tablet,delayed 2 tab PO BEDTIME 08/11/21 09/27/21 08/09/21 History release clonazepam 1 mg tablet 0.5 mg PO QAM 08/11/21 09/27/21 08/10/21 History clonazepam 1 mg tablet (Klonopin) 1 mg PO BEDTIME 08/11/21 09/27/21 08/09/21 History docusate sodium 100 mg capsule 1 cap PO BID 08/11/21 09/27/21 08/10/21 History polyethylene glycol 3350 17 17 g PO DAILY PRN 08/11/21 09/27/21 Unknown History gram/dose oral powder sennosides 8.6 mg tablet (senna) 2 tab PO BEDTIME 08/11/21 09/27/21 08/09/21 History tramadol 50 mg tablet 1 tab PO Q6H PRN 09/27/21 09/27/21 Unknown History Physical Exam Vital Signs: Vital Signs: Last Vital Signs Temp 97.2 F 10/06/21 09:44 Pulse 97 10/06/21 09:44 Resp 17 10/06/21 09:44 BP 103/56 L 10/06/21 09:44 Pulse Ox 97 10/06/21 09:44 BMI result Body Mass Index 35.7 Const: General: no acute distress Nutritional Appearance: obese Orientation/consciousness: patient oriented x3 Limitations: no limitations HENMT: Head: Yes normal to inspection Ears: hearing grossly normal bilaterally Mouth: Normal oral and palatal mucosa present Eyes: Sclerae: sclerae normal Pupils: Equal, round and reactive pupils present Neck: Neck: Yes normal visual inspection Chest: Chest palpation & inspection: normal inspection of the chest Resp: Effort & Inspection: normal respiratory effort Auscultation: clear to auscultation bilaterally Cardio: Palpation: normal PMI Rate: regular rate Rhythm: regular rhythm Heart sounds: S1 normal heart sound present, S2 normal heart sound present and no murmurs GI: Inspection: Yes distended and Yes obesity Palpation (GI): Soft to palpation, nontender and No hepatosplenomegaly present Auscultation: normal bowel sounds Rectal Exam - Female: deferred Skin: General skin exam: no rashes or lesions noted Neuro: General: patient oriented x3, gait normal and moves all extremities Cranial nerves: Yes Equal, round and reactive pupils present Speech: No Abnormal speech present Psych: Appearance: grossly normal Mental Status: mental status grossly normal Results Labs CBC & Chem 7: 09/29/21 13:57 09/27/21 15:36 Assessment and Plan (1) Constipation: Status: Acute Plan 56-year-old [place]-speaking female with history of schizophrenia, asthma, COPD admitted with suicidal ideation, auditory and visual hallucinations Patient has a history of longstanding chronic constipation. Her symptoms have been worse during hospitalization and she denies having a bowel movement for the past 4 days. TSH was normal Constipation is likely a combination of slow transit and multiple psyche medications She has been treated with multiple laxatives, Fleet enema and suppository without results. RECOMMENDATIONS: 1. Large volume tap water enema x 1 tonight. 2. If no results with tap water enema, repeat a 2nd enema in the am, start patient on a clear liquid diet x 24 hrs 3. Once she starts having a BM, she can be started on Miralax 3 times daily. Pt was advised to schedule a screening colonoscopy as an outpatient after acute psychiatric illness has resolved. Procedures Date of Service Date of Service: 10/06/21
--- NOTE | 2021-10-06 19:14 | PC.NURSE ---
Addendum entered by Rebeca Sawyer 10/06/21 19:28: PT reported that she passed a large stool, requested to have tap water enema again tomorrow stating one more and i'll be all clear Original Note: Tap water enema ordered and completed. Results pending.
[2021-10-06 22:27] VITALS: BP 131/70; PULSE 112; TEMP 36.1; O2SAT 100
[2021-10-06] MEDS: bisacodyL 5 MG TABLET.DR 10 MG PO (22:29)
[2021-10-06] MEDS: Sennosides 8.6 MG TABLET 17.2 MG PO (22:30)
[2021-10-06] MEDS: cloZAPine 100 MG TABLET 300 MG PO (22:30)
[2021-10-06] MEDS: clonazePAM 1 MG TABLET PO (22:30)
[2021-10-06] MEDS: Divalproex Sodium ER 500 MG TAB.ER.24H 1500 MG PO (22:30)
[2021-10-06] MEDS: Docusate Sodium 100 MG CAPSULE 200 MG PO (22:31)
[2021-10-06] MEDS: lisinopriL 10 MG TABLET PO (22:31)
[2021-10-06] MEDS: traMADoL HCL 50 MG TABLET PO (22:45)
[2021-10-07 10:03] VITALS: BP 130/63; PULSE 116; RESP 16; TEMP 36.4; O2SAT 96
[2021-10-07] MEDS: polyethylene glycoL 3350 17 GM POWD.PACK PO ×2 (10:10→22:42)
[2021-10-07] MEDS: Montelukast Sodium 10 MG TABLET PO (10:11)
[2021-10-07] MEDS: clonazePAM 0.5 MG TABLET PO (10:11)
[2021-10-07] MEDS: FLUoxetine HCl 20 MG CAPSULE PO (10:11)
[2021-10-07] MEDS: traMADoL HCL 50 MG TABLET PO ×2 (10:11→22:55)
[2021-10-07] MEDS: Omeprazole 20 MG CAPSULE.DR PO ×2 (10:12→22:39)
[2021-10-07] MEDS: Docusate Sodium 100 MG CAPSULE 200 MG PO ×2 (10:12→22:42)
[2021-10-07] MEDS: cloZAPine 25 MG TABLET 50 MG PO (10:12)
--- NOTE | 2021-10-07 12:28 | P.PNPSI_ITS ---
Subjective Subjective Date of Service: 10/07/21 Reason For Visit: AH/SI Interim History: pt seen with ballistic technician. reports her mood continues to improve, and she is feeling better somatically since having moved her bowels yesterday. up and visible on the unit, whereas she had not been before. focused on staff calling her case resource manager in preparation for discharge. AH improved, no SI. per staff, did not eat well yesteryda due to constipation. tap water enema effective - GI consult completed. bright, social after defecation. miralax TID recommended by GI. Mental Status Exam Mental Status Exam Narrative: A&O. Overweight, in casual attire, seated on bed. good eye contact, attentive. No abnormal involuntary movements. Calm, not guarded, overall engaged. Non- pressured speech, spontaneous with regular rate and rhythm, normal volume and prosody. No prolonged speech latency or dysarthria. Mood is ?a little happy,? affect is flexible. no SI/SIBI. AH improved. no HI/VH expressed. Thoughts are concrete, linear. No known cognitive or memory impairment. Diagnostics Vital Signs (24Hr): Vital Signs - 24 hr 10/06/21 22:27 10/07/21 10:03 Temperature 97.0 F 97.5 F Pulse Rate 112 H 116 H Respiratory Rate 16 Blood Pressure 131/70 130/63 Pulse Oximetry 100 96 BMI result Body Mass Index 35.7 Labs Results: 09/29/21 13:57 09/27/21 15:36 Labs: Laboratory Results - last 48 hr 09/30/21 11:10 Clozapine 589 Norclozapine 164 Imaging Radiology Impressions: ITS Impressions KUB X-Ray 09/29/21 15:10 IMPRESSION: Large volume of stool throughout colon. KUB X-Ray 10/06/21 11:21 IMPRESSION: Significant constipation. The findings are worse compared to previous study 09/29/2021 Medications Medications Current Medications Acetaminophen (Acetaminophen 325 Mg Tablet) 650 mg PO Q6H PRN PRN Reason: Headache/Pain Mild Scale (1-3) Last Admin: 09/29/21 09:43 Dose: 650 mg Documented by: Al Hydroxide/Mg Hydroxide (Magnesium Hydrox/Alum Hydrox 30 Ml Oral.Susp) 30 ml PO Q6H PRN PRN Reason: Heartburn/Nausea Albuterol Sulfate (Albuterol Sulfate 90 Mcg 8 Gm Inhaler) 2 puff INHALE Q4H PRN PRN Reason: Wheezing Bisacodyl (Bisacodyl 5 Mg Tablet.Dr) 10 mg PO BEDTIME [facility] Last Admin: 10/06/21 22:29 Dose: 10 mg Documented by: Clonazepam (Clonazepam 0.5 Mg Tablet) 0.5 mg PO DAILY [facility] Last Admin: 10/07/21 10:11 Dose: 0.5 mg Documented by: Clonazepam (Clonazepam 1 Mg Tablet) 1 mg PO BEDTIME [facility] Last Admin: 10/06/21 22:30 Dose: 1 mg Documented by: Clozapine (Clozapine 25 Mg Tablet) 50 mg PO DAILY [facility] Last Admin: 10/07/21 10:12 Dose: 50 mg Documented by: Clozapine (Clozapine 100 Mg Tablet) 300 mg PO BEDTIME [facility] Last Admin: 10/06/21 22:30 Dose: 300 mg Documented by: Divalproex Sodium (Divalproex Sodium Er 500 Mg Tab.Er.24h) 1,500 mg PO BEDTIME [facility] Last Admin: 10/06/21 22:30 Dose: 1,500 mg Documented by: Docusate Sodium (Docusate Sodium 100 Mg Capsule) 200 mg PO BID [facility] Last Admin: 10/07/21 10:12 Dose: 200 mg Documented by: Fluoxetine HCl (Fluoxetine Hcl 20 Mg Capsule) 20 mg PO DAILY [facility] Last Admin: 10/07/21 10:11 Dose: 20 mg Documented by: Fluticasone Propionate (Fluticasone Propionate 100 Mcg Blst.W.Dev) 2 puff INHALE RBID [facility] Last Admin: 10/07/21 11:31 Dose: Not Given Documented by: Hydroxyzine HCl (Hydroxyzine Hcl 25 Mg Tablet) 25 mg PO Q6H PRN PRN Reason: Anxiety Last Admin: 10/05/21 00:04 Dose: 25 mg Documented by: Lactulose (Lactulose 20 Gm/30 Ml Solution) 10 gm PO DAILY PRN PRN Reason: Constipation Last Admin: 10/04/21 12:33 Dose: 10 gm Documented by: Lisinopril (Lisinopril 10 Mg Tablet) 10 mg PO BEDTIME [facility]; Protocol Last Admin: 10/06/21 22:31 Dose: 10 mg Documented by: Magnesium Hydroxide (Milk Of Magnesia 30 Ml Oral.Susp) 30 ml PO DAILY PRN PRN Reason: Constipation Montelukast Sodium (Montelukast Sodium 10 Mg Tablet) 10 mg PO DAILY [facility] Last Admin: 10/07/21 10:11 Dose: 10 mg Documented by: Non-Formulary Medication (Menthol) 2.5 % TOPICAL TID PRN PRN Reason: musculoskeletal pain Last Admin: 10/06/21 22:53 Dose: 2.5 % Documented by: Omeprazole (Omeprazole 20 Mg Capsule.Dr) 20 mg PO BID [facility] Last Admin: 10/07/21 10:12 Dose: 20 mg Documented by: Polyethylene Glycol (Polyethylene Glycol 3350 17 Gm Powd.Pack) 17 gm PO TID [facility] Last Admin: 10/07/21 10:10 Dose: 17 gm Documented by: Senna (Sennosides 8.6 Mg Tablet) 17.2 mg PO BEDTIME [facility] Last Admin: 10/06/21 22:30 Dose: 17.2 mg Documented by: Tramadol HCl (Tramadol Hcl 50 Mg Tablet) 50 mg PO BID PRN PRN Reason: Pain, Mild (Pain Scale 1-3) Last Admin: 10/07/21 10:11 Dose: 50 mg Documented by: Trazodone HCl (Trazodone Hcl 50 Mg Tablet) 50 mg PO BEDTIME PRN PRN Reason: Insomnia Allergies Allergies Allergy/AdvReac Type Severity Reaction Status Date / Time diazepam [From Valium] Allergy Unknown Unknown Verified 08/10/21 20:04 haloperidol [From Haldol] Allergy Unknown Unknown Verified 08/10/21 20:04 Penicillins Allergy Unknown Unknown Verified 08/10/21 20:04 risperidone [From Risperdal] Allergy Unknown Unknown Verified 08/10/21 20:04 aspirin [Aspirin] AdvReac Intermediate Vomiting Verified 08/10/21 20:04 trazodone [TRAZODONE] AdvReac Intermediate NAUSEA & Verified 08/10/21 20:04 VOMITING Assessment & Plan Assessment & Plan (1) Schizophrenia: Status: Acute Code(s): F20.9 - Schizophrenia, unspecified Assessment and Plan: Ms. Beckwith is a 56 year-old woman with long hx of schizophrenia. Known to this unit through past admission with similar presentation. Pt presents with exacerbation of CAH and SI. She also reports weakness, chronic constipation (on clozaril). Added miralax BID, which was recommended by GI back in november. Will do KUB to r/o obstruction or other complications as pt with hx of acute colitis. We discussed risks, benefits and alternative treatment option. PLAN 1. Admit to M3, CV, 15 mins checks for safety. 2. Continue current dose of clozaril, will check clozaril levels 3. monitor ANC weekly while on unit. 4. constipation- KUB, adding miralax BID and continue colace 100mg po bid. 5. Obtain collateral information 6. Aftercare planning. - 10/01/21: Added Trilafon 2 mg TID. Titrate as tolerated and clinically indicated 10/02: No change 10/03: increased trilafon to 4 mg TID 10/04: decreasing trilafon to 2 TID per outpt academic affairs assistant's commentary. 10/05: trilafon DCed. 10/06: constipation continues, GI consult placed.? increase bowel regimen in the meantime. 10/07: GI consult completed, BM achieved yesterday. miralax increased to TID. discharge home once stable, tentatively planning for sunday. (2) Constipation: Status: Acute Code(s): K59.00 - Constipation, unspecified Assessment and Plan: per 10/06 GI consult: 56-year-old Vietnamese-speaking female with history of schizophrenia, asthma, COPD admitted with suicidal ideation, auditory and visual hallucinations Patient has a history of longstanding chronic constipation.? Her symptoms have been worse during hospitalization and she denies having a bowel movement for the past 4 days. TSH was normal Constipation is likely a combination of slow transit and multiple psyche medications She has been treated with multiple laxatives, Fleet enema and suppository without results. RECOMMENDATIONS: 1.? Large volume tap water enema x 1 tonight. 2.? If no results with tap water enema, repeat a 2nd enema in the am, start patient on a clear liquid diet x 24 hrs 3.? Once she starts having a BM, she can be started on Miralax 3 times daily. Pt was advised to schedule a screening colonoscopy as an outpatient after acute psychiatric illness has resolved. I spent minutes with the patient and/or on the patient floor today, greater than?50% of which was spent counseling/coordinating care. Reason for contiued inpatient stay Substantial Risk for: harm to self, inability to function and rapid decompensa tion
[2021-10-07 18:00] VITALS: BP 127/76; PULSE 111; RESP 18; TEMP 36.3; O2SAT 99
[2021-10-07] MEDS: bisacodyL 5 MG TABLET.DR 10 MG PO (22:37)
[2021-10-07] MEDS: lisinopriL 10 MG TABLET PO (22:38)
[2021-10-07] MEDS: Sennosides 8.6 MG TABLET 17.2 MG PO (22:38)
[2021-10-07] MEDS: Divalproex Sodium ER 500 MG TAB.ER.24H 1500 MG PO (22:38)
[2021-10-07] MEDS: clonazePAM 1 MG TABLET PO (22:39)
[2021-10-07] MEDS: cloZAPine 100 MG TABLET 300 MG PO (22:39)
[2021-10-07] MEDS: Fluticasone Propionate 100 MCG BLST.W.DEV 2 PUFF INHALE (22:42)
[2021-10-08] MEDS: Fluticasone Propionate 100 MCG BLST.W.DEV 2 PUFF INHALE ×2 (08:34→22:46)
[2021-10-08] MEDS: Docusate Sodium 100 MG CAPSULE 200 MG PO ×2 (08:35→22:47)
[2021-10-08] MEDS: cloZAPine 25 MG TABLET 50 MG PO (08:35)
[2021-10-08] MEDS: FLUoxetine HCl 20 MG CAPSULE PO (08:36)
[2021-10-08] MEDS: clonazePAM 0.5 MG TABLET PO (08:37)
[2021-10-08] MEDS: Omeprazole 20 MG CAPSULE.DR PO ×2 (08:37→22:54)
[2021-10-08] MEDS: Montelukast Sodium 10 MG TABLET PO (08:37)
[2021-10-08 09:04] VITALS: BP 110/86; PULSE 91; RESP 18; O2SAT 95
[2021-10-08] MEDS: Sodium Phosphate,Mono-Dibasic 133 ML ENEMA PR (10:34)
[2021-10-08] MEDS: traMADoL HCL 50 MG TABLET PO ×2 (10:34→22:53)
--- NOTE | 2021-10-08 12:31 | PC.NURSE ---
Patient given ernema as requested mid morning- patient reports very good results w/ relief of abdominal discomfort. Patient affect bright, states she hopes to receive enemas daily until her discharge, Sunday or Sunday.
[2021-10-08] MEDS: polyethylene glycoL 3350 17 GM POWD.PACK PO ×2 (15:43→22:45)
--- NOTE | 2021-10-08 18:50 | P.PNPSI_ITS ---
Subjective Subjective Date of Service: 10/08/21 Reason For Visit: AH/SI Interim History: pt found resting in her bed. no complaints or requests, other than to delay her discharge until sunday. reports mood and AH continue to be better. also moved bowels again yesterday and feeling better in her abd. per staff, much brighter than several days ago. had enema with good results. Mental Status Exam Mental Status Exam Narrative: A&O. Overweight, in casual attire, lying in bed. good eye contact, attentive. No abnormal involuntary movements. Calm, not guarded, overall engaged. Non-p ressured speech, spontaneous with regular rate and rhythm, normal volume and prosody. No prolonged speech latency or dysarthria. Mood is improved from admission, affect is flexible and full range. no SI/SIBI. AH improved. no HI/VH expressed. Thoughts are concrete, linear. No known cognitive or memory impairment. Diagnostics Vital Signs (24Hr): Vital Signs - 24 hr 10/08/21 09:04 Pulse Rate 91 Respiratory Rate 18 Blood Pressure 110/86 Pulse Oximetry 95 BMI result Body Mass Index 35.7 Labs Results: 09/29/21 13:57 09/27/21 15:36 Imaging Radiology Impressions: ITS Impressions KUB X-Ray 09/29/21 15:10 IMPRESSION: Large volume of stool throughout colon. KUB X-Ray 10/06/21 11:21 IMPRESSION: Significant constipation. The findings are worse compared to previous study 09/29/2021 Medications Medications Current Medications Acetaminophen (Acetaminophen 325 Mg Tablet) 650 mg PO Q6H PRN PRN Reason: Headache/Pain Mild Scale (1-3) Last Admin: 09/29/21 09:43 Dose: 650 mg Documented by: Al Hydroxide/Mg Hydroxide (Magnesium Hydrox/Alum Hydrox 30 Ml Oral.Susp) 30 ml PO Q6H PRN PRN Reason: Heartburn/Nausea Albuterol Sulfate (Albuterol Sulfate 90 Mcg 8 Gm Inhaler) 2 puff INHALE Q4H PRN PRN Reason: Wheezing Bisacodyl (Bisacodyl 5 Mg Tablet.Dr) 10 mg PO BEDTIME [facility] Last Admin: 10/07/21 22:37 Dose: 10 mg Documented by: Clonazepam (Clonazepam 0.5 Mg Tablet) 0.5 mg PO DAILY [facility] Last Admin: 10/08/21 08:37 Dose: 0.5 mg Documented by: Clonazepam (Clonazepam 1 Mg Tablet) 1 mg PO BEDTIME [facility] Last Admin: 10/07/21 22:39 Dose: 1 mg Documented by: Clozapine (Clozapine 25 Mg Tablet) 50 mg PO DAILY [facility] Last Admin: 10/08/21 08:35 Dose: 50 mg Documented by: Clozapine (Clozapine 100 Mg Tablet) 300 mg PO BEDTIME [facility] Last Admin: 10/07/21 22:39 Dose: 300 mg Documented by: Divalproex Sodium (Divalproex Sodium Er 500 Mg Tab.Er.24h) 1,500 mg PO BEDTIME [facility] Last Admin: 10/07/21 22:38 Dose: 1,500 mg Documented by: Docusate Sodium (Docusate Sodium 100 Mg Capsule) 200 mg PO BID [facility] Last Admin: 10/08/21 08:35 Dose: 200 mg Documented by: Fluoxetine HCl (Fluoxetine Hcl 20 Mg Capsule) 20 mg PO DAILY [facility] Last Admin: 10/08/21 08:36 Dose: 20 mg Documented by: Fluticasone Propionate (Fluticasone Propionate 100 Mcg Blst.W.Dev) 2 puff INHALE RBID [facility] Last Admin: 10/08/21 08:34 Dose: 2 puff Documented by: Hydroxyzine HCl (Hydroxyzine Hcl 25 Mg Tablet) 25 mg PO Q6H PRN PRN Reason: Anxiety Last Admin: 10/05/21 00:04 Dose: 25 mg Documented by: Lactulose (Lactulose 20 Gm/30 Ml Solution) 10 gm PO DAILY PRN PRN Reason: Constipation Last Admin: 10/04/21 12:33 Dose: 10 gm Documented by: Lisinopril (Lisinopril 10 Mg Tablet) 10 mg PO BEDTIME [facility]; Protocol Last Admin: 10/07/21 22:38 Dose: 10 mg Documented by: Magnesium Hydroxide (Milk Of Magnesia 30 Ml Oral.Susp) 30 ml PO DAILY PRN PRN Reason: Constipation Montelukast Sodium (Montelukast Sodium 10 Mg Tablet) 10 mg PO DAILY [facility] Last Admin: 10/08/21 08:37 Dose: 10 mg Documented by: Non-Formulary Medication (Menthol) 2.5 % TOPICAL TID PRN PRN Reason: musculoskeletal pain Last Admin: 10/07/21 22:57 Dose: 2.5 % Documented by: Omeprazole (Omeprazole 20 Mg Capsule.) 20 mg PO BID [facility] Last Admin: 10/08/21 08:37 Dose: 20 mg Documented by: Polyethylene Glycol (Polyethylene Glycol 3350 17 Gm Powd.Pack) 17 gm PO TID [facility] Last Admin: 10/08/21 15:43 Dose: 17 gm Documented by: Senna (Sennosides 8.6 Mg Tablet) 17.2 mg PO BEDTIME [facility] Last Admin: 10/07/21 22:38 Dose: 17.2 mg Documented by: Sodium Biphosphate/Sodium Phosphate (Sodium Phosphate,[place]-Dibasic 133 Ml Enema) 133 ml [place] DAILY PRN PRN Reason: Constipation Last Admin: 10/08/21 10:34 Dose: 133 ml Documented by: Tramadol HCl (Tramadol Hcl 50 Mg Tablet) 50 mg PO BID PRN PRN Reason: Pain, Mild (Pain Scale 1-3) Last Admin: 10/08/21 10:34 Dose: 50 mg Documented by: Trazodone HCl (Trazodone Hcl 50 Mg Tablet) 50 mg PO BEDTIME PRN PRN Reason: Insomnia Allergies Allergies Allergy/AdvReac Type Severity Reaction Status Date / Time diazepam [From Valium] Allergy Unknown Unknown Verified 08/10/21 20:04 haloperidol [From Haldol] Allergy Unknown Unknown Verified 08/10/21 20:04 Penicillins Allergy Unknown Unknown Verified 08/10/21 20:04 risperidone [From Risperdal] Allergy Unknown Unknown Verified 08/10/21 20:04 aspirin [Aspirin] AdvReac Intermediate Vomiting Verified 08/10/21 20:04 trazodone [TRAZODONE] AdvReac Intermediate NAUSEA & Verified 08/10/21 20:04 VOMITING Assessment & Plan Assessment & Plan (1) Schizophrenia: Status: Acute Code(s): F20.9 - Schizophrenia, unspecified Assessment and Plan: Ms. Beckwith is a 56 year-old woman with long hx of schizophrenia. Known to this unit through past admission with similar presentation. Pt presents with exacerbation of CAH and SI. She also reports weakness, chronic constipation (on clozaril). Added miralax BID, which was recommended by GI back in november. Will do KUB to r/o obstruction or other complications as pt with hx of acute colitis. We discussed risks, benefits and alternative treatment option. PLAN 1. Admit to M3, CV, 15 mins checks for safety. 2. Continue current dose of clozaril, will check clozaril levels 3. monitor ANC weekly while on unit. 4. constipation- KUB, adding miralax BID and continue colace 100mg po bid. 5. Obtain collateral information 6. Aftercare planning. - 10/01/21: Added Trilafon 2 mg TID. Titrate as tolerated and clinically indicated 10/02: No change 10/03: increased trilafon to 4 mg TID 10/04: decreasing trilafon to 2 TID per outpt major general's commentary. 10/05: trilafon DCed. 10/06: constipation continues, GI consult placed.? increase bowel regimen in the meantime. 10/07: GI consult completed, BM achieved yesterday. miralax increased to TID. 10/08: no change in mgmt. discharge home once stable, tentatively planning for sunday. (2) Constipation: Status: Acute Code(s): K59.00 - Constipation, unspecified Assessment and Plan: per 10/06 GI consult: 56-year-old Filipino-speaking female with history of schizophrenia, asthma, COPD admitted with suicidal ideation, auditory and visual hallucinations Patient has a history of longstanding chronic constipation.? Her symptoms have been worse during hospitalization and she denies having a bowel movement for the past 4 days. TSH was normal Constipation is likely a combination of slow transit and multiple psyche medications She has been treated with multiple laxatives, Fleet enema and suppository without results. RECOMMENDATIONS: 1.? Large volume tap water enema x 1 tonight. 2.? If no results with tap water enema, repeat a 2nd enema in the am, start patient on a clear liquid diet x 24 hrs 3.? Once she starts having a BM, she can be started on Miralax 3 times daily. Pt was advised to schedule a screening colonoscopy as an outpatient after acute psychiatric illness has resolved. I spent minutes with the patient and/or on the patient floor today, greater than?50% of which was spent counseling/coordinating care. Reason for contiued inpatient stay Substantial Risk for: harm to self, inability to function and rapid decompensation
[2021-10-08 22:34] VITALS: BP 131/83; PULSE 108; RESP 16; TEMP 36.7; O2SAT 95
[2021-10-08] MEDS: Divalproex Sodium ER 500 MG TAB.ER.24H 1500 MG PO (22:47)
[2021-10-08] MEDS: Sennosides 8.6 MG TABLET 17.2 MG PO (22:47)
[2021-10-08] MEDS: cloZAPine 100 MG TABLET 300 MG PO (22:48)
[2021-10-08] MEDS: clonazePAM 1 MG TABLET PO (22:49)
[2021-10-08] MEDS: lisinopriL 10 MG TABLET PO (22:49)
[2021-10-08] MEDS: bisacodyL 5 MG TABLET.DR 10 MG PO (22:54)
[2021-10-09 08:58] VITALS: BP 124/66; PULSE 84; RESP 18; TEMP 36; O2SAT 97
[2021-10-09] MEDS: Montelukast Sodium 10 MG TABLET PO (09:00)
[2021-10-09] MEDS: FLUoxetine HCl 20 MG CAPSULE PO (09:00)
[2021-10-09] MEDS: clonazePAM 0.5 MG TABLET PO (09:00)
[2021-10-09] MEDS: Fluticasone Propionate 100 MCG BLST.W.DEV 2 PUFF INHALE ×2 (09:00→22:51)
[2021-10-09] MEDS: Omeprazole 20 MG CAPSULE.DR PO ×2 (09:00→22:39)
[2021-10-09] MEDS: cloZAPine 25 MG TABLET 50 MG PO (09:00)
[2021-10-09] MEDS: Docusate Sodium 100 MG CAPSULE 200 MG PO ×2 (09:00→22:40)
[2021-10-09] MEDS: traMADoL HCL 50 MG TABLET PO ×2 (10:29→22:51)
[2021-10-09] MEDS: polyethylene glycoL 3350 17 GM POWD.PACK PO ×3 (11:55→22:39)
--- NOTE | 2021-10-09 14:59 | HO.PSYCHPN ---
Subjective Subjective Date of Service: 10/09/21 Reason For Visit: AH/SI Interim History: pt found sleeping in her bed mid afternoon. rousable with difficulty. denies any problems aside from some abd pain, has no questions or complaints. states she will be getting an enema from RN this afternoon. per staff, doing very well, bright, articulate. asking for another enema today. Mental Status Exam Mental Status Exam Narrative: A&O. Overweight, in casual attire, lying in bed. No abnormal involuntary movements. Calm, not guarded. Non-pressured speech, spontaneous with regular rate and rhythm, normal volume and prosody. No prolonged speech latency or dysarthria. Mood is improved from admission, affect is flexible. no SI/SIBI/AH/HI/VH expressed. Thoughts are concrete, linear. No known cognitive or memory impairment. Diagnostics Vital Signs (24Hr): Vital Signs - 24 hr 10/08/21 22:34 10/09/21 08:58 Temperature 98.0 F 96.8 F Pulse Rate 108 H 84 Respiratory Rate 16 18 Blood Pressure 131/83 124/66 Pulse Oximetry 95 97 BMI result Body Mass Index 35.7 Labs Results: 09/29/21 13:57 09/27/21 15:36 Imaging Radiology Impressions: ITS Impressions KUB X-Ray 09/29/21 15:10 IMPRESSION: Large volume of stool throughout colon. KUB X-Ray 10/06/21 11:21 IMPRESSION: Significant constipation. The findings are worse compared to previous study 09/29/2021 Medications Medications Current Medications Acetaminophen (Acetaminophen 325 Mg Tablet) 650 mg PO Q6H PRN PRN Reason: Headache/Pain Mild Scale (1-3) Last Admin: 09/29/21 09:43 Dose: 650 mg Documented by: Al Hydroxide/Mg Hydroxide (Magnesium Hydrox/Alum Hydrox 30 Ml Oral.Susp) 30 ml PO Q6H PRN PRN Reason: Heartburn/Nausea Albuterol Sulfate (Albuterol Sulfate 90 Mcg 8 Gm Inhaler) 2 puff INHALE Q4H PRN PRN Reason: Wheezing Bisacodyl (Bisacodyl 5 Mg Tablet.Dr) 10 mg PO BEDTIME [facility] Last Admin: 10/08/21 22:54 Dose: 10 mg Documented by: Clonazepam (Clonazepam 0.5 Mg Tablet) 0.5 mg PO DAILY [facility] Last Admin: 10/09/21 09:00 Dose: 0.5 mg Documented by: Clonazepam (Clonazepam 1 Mg Tablet) 1 mg PO BEDTIME [facility] Last Admin: 10/08/21 22:49 Dose: 1 mg Documented by: Clozapine (Clozapine 25 Mg Tablet) 50 mg PO DAILY [facility] Last Admin: 10/09/21 09:00 Dose: 50 mg Documented by: Clozapine (Clozapine 100 Mg Tablet) 300 mg PO BEDTIME [facility] Last Admin: 10/08/21 22:48 Dose: 300 mg Documented by: Divalproex Sodium (Divalproex Sodium Er 500 Mg Tab.Er.24h) 1,500 mg PO BEDTIME [facility] Last Admin: 10/08/21 22:47 Dose: 1,500 mg Documented by: Docusate Sodium (Docusate Sodium 100 Mg Capsule) 200 mg PO BID [facility] Last Admin: 10/09/21 09:00 Dose: 200 mg Documented by: Fluoxetine HCl (Fluoxetine Hcl 20 Mg Capsule) 20 mg PO DAILY [facility] Last Admin: 10/09/21 09:00 Dose: 20 mg Documented by: Fluticasone Propionate (Fluticasone Propionate 100 Mcg Blst.W.Dev) 2 puff INHALE RBID [facility] Last Admin: 10/09/21 09:00 Dose: 2 puff Documented by: Hydroxyzine HCl (Hydroxyzine Hcl 25 Mg Tablet) 25 mg PO Q6H PRN PRN Reason: Anxiety Last Admin: 10/05/21 00:04 Dose: 25 mg Documented by: Lactulose (Lactulose 20 Gm/30 Ml Solution) 10 gm PO DAILY PRN PRN Reason: Constipation Last Admin: 10/04/21 12:33 Dose: 10 gm Documented by: Lisinopril (Lisinopril 10 Mg Tablet) 10 mg PO BEDTIME [facility]; Protocol Last Admin: 10/08/21 22:49 Dose: 10 mg Documented by: Magnesium Hydroxide (Milk Of Magnesia 30 Ml Oral.Susp) 30 ml PO DAILY PRN PRN Reason: Constipation Montelukast Sodium (Montelukast Sodium 10 Mg Tablet) 10 mg PO DAILY [facility] Last Admin: 10/09/21 09:00 Dose: 10 mg Documented by: Patient Own Medication (Menthol 2.5%( 2.5 each TOPICAL TID PRN PRN Reason: musculoskeletal pain Omeprazole (Omeprazole 20 Mg Capsule.Dr) 20 mg PO BID [facility] Last Admin: 10/09/21 09:00 Dose: 20 mg Documented by: Polyethylene Glycol (Polyethylene Glycol 3350 17 Gm Powd.Pack) 17 gm PO TID [facility] Last Admin: 10/09/21 11:55 Dose: 17 gm Documented by: Senna (Sennosides 8.6 Mg Tablet) 17.2 mg PO BEDTIME [facility] Last Admin: 10/08/21 22:47 Dose: 17.2 mg Documented by: Sodium Biphosphate/Sodium Phosphate (Sodium Phosphate,[place]-Dibasic 133 Ml Enema) 133 ml [place] DAILY PRN PRN Reason: Constipation Last Admin: 10/08/21 10:34 Dose: 133 ml Documented by: Tramadol HCl (Tramadol Hcl 50 Mg Tablet) 50 mg PO BID PRN PRN Reason: Pain, Mild (Pain Scale 1-3) Last Admin: 10/09/21 10:29 Dose: 50 mg Documented by: Trazodone HCl (Trazodone Hcl 50 Mg Tablet) 50 mg PO BEDTIME PRN PRN Reason: Insomnia Allergies Allergies Allergy/AdvReac Type Severity Reaction Status Date / Time diazepam [From Valium] Allergy Unknown Unknown Verified 08/10/21 20:04 haloperidol [From Haldol] Allergy Unknown Unknown Verified 08/10/21 20:04 Penicillins Allergy Unknown Unknown Verified 08/10/21 20:04 risperidone [From Risperdal] Allergy Unknown Unknown Verified 08/10/21 20:04 aspirin [Aspirin] AdvReac Intermediate Vomiting Verified 08/10/21 20:04 trazodone [TRAZODONE] AdvReac Intermediate NAUSEA & Verified 08/10/21 20:04 VOMITING Assessment & Plan Assessment & Plan (1) Schizophrenia: Status: Acute Code(s): F20.9 - Schizophrenia, unspecified Assessment and Plan: Ms. Beckwith is a 56 year-old woman with long hx of schizophrenia. Known to this unit through past admission with similar presentation. Pt presents with exacerbation of CAH and SI. She also reports weakness, chronic constipation (on clozaril). Added miralax BID, which was recommended by GI back in november. Will do KUB to r/o obstruction or other complications as pt with hx of acute colitis. We discussed risks, benefits and alternative treatment option. PLAN 1. Admit to M3, CV, 15 mins checks for safety. 2. Continue current dose of clozaril, will check clozaril levels 3. monitor ANC weekly while on unit. 4. constipation- KUB, adding miralax BID and continue colace 100mg po bid. 5. Obtain collateral information 6. Aftercare planning. - 10/01/21: Added Trilafon 2 mg TID. Titrate as tolerated and clinically indicated 10/02: No change 10/03: increased trilafon to 4 mg TID 10/04: decreasing trilafon to 2 TID per outpt shoe polisher's commentary. 10/05: trilafon DCed. 10/06: constipation continues, GI consult placed.? increase bowel regimen in the meantime. 10/07: GI consult completed, BM achieved yesterday. miralax increased to TID. 10/08: no change in mgmt. discharge home once stable, tentatively planning for sunday. (2) Constipation: Status: Acute Code(s): K59.00 - Constipation, unspecified Assessment and Plan: per 10/06 GI consult: 56-year-old [place]ian-speaking female with history of schizophrenia, asthma, COPD admitted with suicidal ideation, auditory and visual hallucinations Patient has a history of longstanding chronic constipation.? Her symptoms have been worse during hospitalization and she denies having a bowel movement for the past 4 days. TSH was normal Constipation is likely a combination of slow transit and multiple psyche medications She has been treated with multiple laxatives, Fleet enema and suppository without results. RECOMMENDATIONS: 1.? Large volume tap water enema x 1 tonight. 2.? If no results with tap water enema, repeat a 2nd enema in the am, start patient on a clear liquid diet x 24 hrs 3.? Once she starts having a BM, she can be started on Miralax 3 times daily. Pt was advised to schedule a screening colonoscopy as an outpatient after acute psychiatric illness has resolved. I spent minutes with the patient and/or on the patient floor today, greater than?50% of which was spent counseling/coordinating care. Reason for contiued inpatient stay Substantial Risk for: inability to function and rapid decompensation
[2021-10-09] MEDS: Sodium Phosphate,Mono-Dibasic 133 ML ENEMA PR (17:07)
--- NOTE | 2021-10-09 17:37 | PC.NURSE ---
Patient given PRN enema as requested and ordered- patient reports significant results and continues to report that she is feeling better. No further report of abdominal pain.
[2021-10-09 18:00] VITALS: BP 128/72; PULSE 104; RESP 18; TEMP 36.8; O2SAT 97
[2021-10-09] MEDS: Sennosides 8.6 MG TABLET 17.2 MG PO (22:39)
[2021-10-09] MEDS: bisacodyL 5 MG TABLET.DR 10 MG PO (22:39)
[2021-10-09] MEDS: clonazePAM 1 MG TABLET PO (22:40)
[2021-10-09] MEDS: lisinopriL 10 MG TABLET PO (22:40)
[2021-10-09] MEDS: cloZAPine 100 MG TABLET 300 MG PO (22:40)
[2021-10-09] MEDS: Divalproex Sodium ER 500 MG TAB.ER.24H 1500 MG PO (22:40)
[2021-10-10] MEDS: hydrOXYzine HCL 25 MG TABLET PO (03:14)
[2021-10-10 10:47] VITALS: BP 131/77; PULSE 118; RESP 16; TEMP 36.3; O2SAT 95
[2021-10-10] MEDS: Omeprazole 20 MG CAPSULE.DR PO ×2 (10:49→22:31)
[2021-10-10] MEDS: polyethylene glycoL 3350 17 GM POWD.PACK PO ×2 (10:49→22:31)
[2021-10-10] MEDS: FLUoxetine HCl 20 MG CAPSULE PO (10:50)
[2021-10-10] MEDS: Montelukast Sodium 10 MG TABLET PO (10:50)
[2021-10-10] MEDS: Docusate Sodium 100 MG CAPSULE 200 MG PO ×2 (10:50→22:32)
[2021-10-10] MEDS: cloZAPine 25 MG TABLET 50 MG PO (10:51)
[2021-10-10] MEDS: traMADoL HCL 50 MG TABLET PO ×2 (10:59→22:42)
[2021-10-10] MEDS: Fluticasone Propionate 100 MCG BLST.W.DEV 2 PUFF INHALE ×2 (10:59→22:29)
[2021-10-10] MEDS: clonazePAM 0.5 MG TABLET PO (11:34)
[2021-10-10] MEDS: Sodium Phosphate,Mono-Dibasic 133 ML ENEMA PR (15:16)
[2021-10-10 18:00] VITALS: BP 107/72; PULSE 106; RESP 18; TEMP 36.8; O2SAT 97
--- NOTE | 2021-10-10 20:55 | P.PNPSI_ITS ---
Subjective Subjective Date of Service: 10/10/21 Reason For Visit: AH/SI Interim History: pt reports she is feeling well, getting another enema today. wants to be sure travel arrangements to her home are arranged for sunday, referred to speak with SW. no other complaints or requests. seen dressed and active/visible in the milieu. per staff, visible, social. no SI/HI/AVH. stomach pain improved. large BM yesterday. excited about prospect of daily enemas. D/C . Mental Status Exam Mental Status Exam Narrative: A&O. Overweight, in casual attire, up and about on the unit. No abnormal involuntary movements. Calm, not guarded. Non-pressured speech, spontaneous with regular rate and rhythm, normal volume and prosody. No prolonged speech latency or dysarthria. Mood is improved from admission, affect is flexible. no SI/SIBI/AH/HI/VH expressed. Thoughts are concrete, linear. No known cognitive or memory impairment. Diagnostics Vital Signs (24Hr): Vital Signs - 24 hr 10/10/21 10:47 10/10/21 18:00 Temperature 97.3 F 98.2 F Pulse Rate 118 H 106 H Respiratory Rate 16 18 Blood Pressure 131/77 107/72 Pulse Oximetry 95 97 BMI result Body Mass Index 35.7 Labs Results: 09/29/21 13:57 09/27/21 15:36 Imaging Radiology Impressions: ITS Impressions KUB X-Ray 09/29/21 15:10 IMPRESSION: Large volume of stool throughout colon. KUB X-Ray 10/06/21 11:21 IMPRESSION: Significant constipation. The findings are worse compared to previous study 09/29/2021 Medications Medications Current Medications Acetaminophen (Acetaminophen 325 Mg Tablet) 650 mg PO Q6H PRN PRN Reason: Headache/Pain Mild Scale (1-3) Last Admin: 09/29/21 09:43 Dose: 650 mg Documented by: Al Hydroxide/Mg Hydroxide (Magnesium Hydrox/Alum Hydrox 30 Ml Oral.Susp) 30 ml PO Q6H PRN PRN Reason: Heartburn/Nausea Albuterol Sulfate (Albuterol Sulfate 90 Mcg 8 Gm Inhaler) 2 puff INHALE Q4H PRN PRN Reason: Wheezing Bisacodyl (Bisacodyl 5 Mg Tablet.Dr) 10 mg PO BEDTIME [facility] Last Admin: 10/09/21 22:39 Dose: 10 mg Documented by: Clonazepam (Clonazepam 1 Mg Tablet) 1 mg PO BEDTIME [facility] Last Admin: 10/09/21 22:40 Dose: 1 mg Documented by: Clonazepam (Clonazepam 0.5 Mg Tablet) 0.5 mg PO DAILY [facility] Last Admin: 10/10/21 11:34 Dose: 0.5 mg Documented by: Clozapine (Clozapine 25 Mg Tablet) 50 mg PO DAILY [facility] Last Admin: 10/10/21 10:51 Dose: 50 mg Documented by: Clozapine (Clozapine 100 Mg Tablet) 300 mg PO BEDTIME [facility] Last Admin: 10/09/21 22:40 Dose: 300 mg Documented by: Divalproex Sodium (Divalproex Sodium Er 500 Mg Tab.Er.24h) 1,500 mg PO BEDTIME [facility] Last Admin: 10/09/21 22:40 Dose: 1,500 mg Documented by: Docusate Sodium (Docusate Sodium 100 Mg Capsule) 200 mg PO BID [facility] Last Admin: 10/10/21 10:50 Dose: 200 mg Documented by: Fluoxetine HCl (Fluoxetine Hcl 20 Mg Capsule) 20 mg PO DAILY [facility] Last Admin: 10/10/21 10:50 Dose: 20 mg Documented by: Fluticasone Propionate (Fluticasone Propionate 100 Mcg Blst.W.Dev) 2 puff INHALE RBID [facility] Last Admin: 10/10/21 10:59 Dose: 2 puff Documented by: Hydroxyzine HCl (Hydroxyzine Hcl 25 Mg Tablet) 25 mg PO Q6H PRN PRN Reason: Anxiety Last Admin: 10/10/21 03:14 Dose: 25 mg Documented by: Lactulose (Lactulose 20 Gm/30 Ml Solution) 10 gm PO DAILY PRN PRN Reason: Constipation Last Admin: 10/04/21 12:33 Dose: 10 gm Documented by: Lisinopril (Lisinopril 10 Mg Tablet) 10 mg PO BEDTIME [facility]; Protocol Last Admin: 10/09/21 22:40 Dose: 10 mg Documented by: Magnesium Hydroxide (Milk Of Magnesia 30 Ml Oral.Susp) 30 ml PO DAILY PRN PRN Reason: Constipation Montelukast Sodium (Montelukast Sodium 10 Mg Tablet) 10 mg PO DAILY [facility] Last Admin: 10/10/21 10:50 Dose: 10 mg Documented by: Patient Own Medication (Menthol 2.5%( 2.5 each TOPICAL TID PRN PRN Reason: musculoskeletal pain Last Admin: 10/09/21 22:51 Dose: 2.5 each Documented by: Omeprazole (Omeprazole 20 Mg Capsule.Dr) 20 mg PO BID [facility] Last Admin: 10/10/21 10:49 Dose: 20 mg Documented by: Polyethylene Glycol (Polyethylene Glycol 3350 17 Gm Powd.Pack) 17 gm PO TID [facility] Last Admin: 10/10/21 15:16 Dose: Not Given Documented by: Senna (Sennosides 8.6 Mg Tablet) 17.2 mg PO BEDTIME [facility] Last Admin: 10/09/21 22:39 Dose: 17.2 mg Documented by: Sodium Biphosphate/Sodium Phosphate (Sodium Phosphate,[place]-Dibasic 133 Ml Enema) 133 ml [place] DAILY PRN PRN Reason: Constipation Last Admin: 10/10/21 15:16 Dose: 133 ml Documented by: Tramadol HCl (Tramadol Hcl 50 Mg Tablet) 50 mg PO BID PRN PRN Reason: Pain, Mild (Pain Scale 1-3) Last Admin: 10/10/21 10:59 Dose: 50 mg Documented by: Trazodone HCl (Trazodone Hcl 50 Mg Tablet) 50 mg PO BEDTIME PRN PRN Reason: Insomnia Allergies Allergies Allergy/AdvReac Type Severity Reaction Status Date / Time diazepam [From Valium] Allergy Unknown Unknown Verified 08/10/21 20:04 haloperidol [From Haldol] Allergy Unknown Unknown Verified 08/10/21 20:04 Penicillins Allergy Unknown Unknown Verified 08/10/21 20:04 risperidone [From Risperdal] Allergy Unknown Unknown Verified 08/10/21 20:04 aspirin [Aspirin] AdvReac Intermediate Vomiting Verified 08/10/21 20:04 trazodone [TRAZODONE] AdvReac Intermediate NAUSEA & Verified 08/10/21 20:04 VOMITING Assessment & Plan Assessment & Plan (1) Schizophrenia: Status: Acute Code(s): F20.9 - Schizophrenia, unspecified Assessment and Plan: Ms. Beckwith is a 56 year-old woman with long hx of schizophrenia. Known to this unit through past admission with similar presentation. Pt presents with exacerbation of CAH and SI. She also reports weakness, chronic constipation (on clozaril). Added miralax BID, which was recommended by GI back in november. Will do KUB to r/o obstruction or other complications as pt with hx of acute colitis. We discussed risks, benefits and alternative treatment option. PLAN 1. Admit to M3, CV, 15 mins checks for safety. 2. Continue current dose of clozaril, will check clozaril levels 3. monitor ANC weekly while on unit. 4. constipation- KUB, adding miralax BID and continue colace 100mg po bid. 5. Obtain collateral information 6. Aftercare planning. - 10/01/21: Added Trilafon 2 mg TID. Titrate as tolerated and clinically indicated 10/02: No change 10/03: increased trilafon to 4 mg TID 10/04: decreasing trilafon to 2 TID per outpt behavioral geneticist's commentary. 10/05: trilafon DCed. 10/06: constipation continues, GI consult placed.? increase bowel regimen in the meantime. 10/07: GI consult completed, BM achieved yesterday. miralax increased to TID. 10/08: no change in mgmt. discharge home once stable, tentatively planning for sunday.. (2) Constipation: Status: Acute Code(s): K59.00 - Constipation, unspecified Assessment and Plan: per 10/06 GI consult: 56-year-old [place]-speaking female with history of schizophrenia, asthma, COPD admitted with suicidal ideation, auditory and visual hallucinations Patient has a history of longstanding chronic constipation.? Her symptoms have been worse during hospitalization and she denies having a bowel movement for the past 4 days. TSH was normal Constipation is likely a combination of slow transit and multiple psyche medications She has been treated with multiple laxatives, Fleet enema and suppository without results. RECOMMENDATIONS: 1.? Large volume tap water enema x 1 tonight. 2.? If no results with tap water enema, repeat a 2nd enema in the am, start patient on a clear liquid diet x 24 hrs 3.? Once she starts having a BM, she can be started on Miralax 3 times daily. Pt was advised to schedule a screening colonoscopy as an outpatient after acute psychiatric illness has resolved. I spent minutes with the patient and/or on the patient floor today, greater than?50% of which was spent counseling/coordinating care. Reason for contiued inpatient stay Substantial Risk for: inability to function and rapid decompensation
[2021-10-10] MEDS: bisacodyL 5 MG TABLET.DR 10 MG PO (22:31)
[2021-10-10] MEDS: Divalproex Sodium ER 500 MG TAB.ER.24H 1500 MG PO (22:31)
[2021-10-10] MEDS: cloZAPine 100 MG TABLET 300 MG PO (22:31)
[2021-10-10] MEDS: lisinopriL 10 MG TABLET PO (22:32)
[2021-10-10] MEDS: clonazePAM 1 MG TABLET PO (22:32)
[2021-10-10] MEDS: Sennosides 8.6 MG TABLET 17.2 MG PO (22:32)
[2021-10-11] MEDS: Docusate Sodium 100 MG CAPSULE 200 MG PO ×2 (11:00→22:48)
[2021-10-11] MEDS: Omeprazole 20 MG CAPSULE.DR PO ×2 (11:01→22:50)
[2021-10-11] MEDS: Montelukast Sodium 10 MG TABLET PO (11:01)
[2021-10-11] MEDS: cloZAPine 25 MG TABLET 50 MG PO (11:01)
[2021-10-11] MEDS: clonazePAM 0.5 MG TABLET PO (11:02)
[2021-10-11] MEDS: FLUoxetine HCl 20 MG CAPSULE PO (11:03)
[2021-10-11] MEDS: Fluticasone Propionate 100 MCG BLST.W.DEV 2 PUFF INHALE ×2 (11:04→22:47)
[2021-10-11] MEDS: traMADoL HCL 50 MG TABLET PO ×2 (11:10→23:28)
--- NOTE | 2021-10-11 14:34 | P.PNPSI_ITS ---
Subjective Subjective Date of Service: 10/11/21 Reason For Visit: AH/SI Interim History: pt asking about discharge tomorrow, begins clapping when MD affirms. in good spirits, abd situation under good control. per staff, attending some groups. did decline one observing she has graduated. watching TV, sleeping. daily enemas. discharge tomorrow. Mental Status Exam Mental Status Exam Narrative: A&O. Overweight, in casual attire, up and about on the unit. No abnormal involuntary movements. Calm, not guarded. Non-pressured speech, spontaneous with regular rate and rhythm, normal volume and prosody. No prolonged speech latency or dysarthria. Mood is improved from admission, affect is flexible. no SI/SIBI/AH/HI/VH expressed. Thoughts are concrete, linear. No known cognitive or memory impairment. Diagnostics Vital Signs (24Hr): Vital Signs - 24 hr 10/10/21 18:00 Temperature 98.2 F Pulse Rate 106 H Respiratory Rate 18 Blood Pressure 107/72 Pulse Oximetry 97 BMI result Body Mass Index 35.7 Labs Results: 09/29/21 13:57 09/27/21 15:36 Imaging Radiology Impressions: ITS Impressions KUB X-Ray 09/29/21 15:10 IMPRESSION: Large volume of stool throughout colon. KUB X-Ray 10/06/21 11:21 IMPRESSION: Significant constipation. The findings are worse compared to previous study 09/29/2021 Medications Medications Current Medications Acetaminophen (Acetaminophen 325 Mg Tablet) 650 mg PO Q6H PRN PRN Reason: Headache/Pain Mild Scale (1-3) Last Admin: 09/29/21 09:43 Dose: 650 mg Documented by: Al Hydroxide/Mg Hydroxide (Magnesium Hydrox/Alum Hydrox 30 Ml Oral.Susp) 30 ml PO Q6H PRN PRN Reason: Heartburn/Nausea Albuterol Sulfate (Albuterol Sulfate 90 Mcg 8 Gm Inhaler) 2 puff INHALE Q4H PRN PRN Reason: Wheezing Bisacodyl (Bisacodyl 5 Mg Tablet.Dr) 10 mg PO BEDTIME [facility] Last Admin: 10/10/21 22:31 Dose: 10 mg Documented by: Clonazepam (Clonazepam 1 Mg Tablet) 1 mg PO BEDTIME [facility] Last Admin: 10/10/21 22:32 Dose: 1 mg Documented by: Clonazepam (Clonazepam 0.5 Mg Tablet) 0.5 mg PO DAILY [facility] Last Admin: 10/11/21 11:02 Dose: 0.5 mg Documented by: Clozapine (Clozapine 25 Mg Tablet) 50 mg PO DAILY [facility] Last Admin: 10/11/21 11:01 Dose: 50 mg Documented by: Clozapine (Clozapine 100 Mg Tablet) 300 mg PO BEDTIME [facility] Last Admin: 10/10/21 22:31 Dose: 300 mg Documented by: Divalproex Sodium (Divalproex Sodium Er 500 Mg Tab.Er.24h) 1,500 mg PO BEDTIME [facility] Last Admin: 10/10/21 22:31 Dose: 1,500 mg Documented by: Docusate Sodium (Docusate Sodium 100 Mg Capsule) 200 mg PO BID [facility] Last Admin: 10/11/21 11:00 Dose: 200 mg Documented by: Fluoxetine HCl (Fluoxetine Hcl 20 Mg Capsule) 20 mg PO DAILY [facility] Last Admin: 10/11/21 11:03 Dose: 20 mg Documented by: Fluticasone Propionate (Fluticasone Propionate 100 Mcg Blst.W.Dev) 2 puff INHALE RBID [facility] Last Admin: 10/11/21 11:04 Dose: 2 puff Documented by: Hydroxyzine HCl (Hydroxyzine Hcl 25 Mg Tablet) 25 mg PO Q6H PRN PRN Reason: Anxiety Last Admin: 10/10/21 03:14 Dose: 25 mg Documented by: Lactulose (Lactulose 20 Gm/30 Ml Solution) 10 gm PO DAILY PRN PRN Reason: Constipation Last Admin: 10/04/21 12:33 Dose: 10 gm Documented by: Lisinopril (Lisinopril 10 Mg Tablet) 10 mg PO BEDTIME [facility]; Protocol Last Admin: 10/10/21 22:32 Dose: 10 mg Documented by: Magnesium Hydroxide (Milk Of Magnesia 30 Ml Oral.Susp) 30 ml PO DAILY PRN PRN Reason: Constipation Montelukast Sodium (Montelukast Sodium 10 Mg Tablet) 10 mg PO DAILY [facility] Last Admin: 10/11/21 11:01 Dose: 10 mg Documented by: Patient Own Medication (Menthol 2.5%( 2.5 each TOPICAL TID PRN PRN Reason: musculoskeletal pain Last Admin: 10/10/21 22:42 Dose: 2.5 each Documented by: Omeprazole (Omeprazole 20 Mg Capsule.Dr) 20 mg PO BID [facility] Last Admin: 10/11/21 11:01 Dose: 20 mg Documented by: Polyethylene Glycol (Polyethylene Glycol 3350 17 Gm Powd.Pack) 17 gm PO TID [facility] Last Admin: 10/11/21 11:05 Dose: Not Given Documented by: Senna (Sennosides 8.6 Mg Tablet) 17.2 mg PO BEDTIME [facility] Last Admin: 10/10/21 22:32 Dose: 17.2 mg Documented by: Sodium Biphosphate/Sodium Phosphate (Sodium Phosphate,[place]-Dibasic 133 Ml Enema) 133 ml [place] DAILY PRN PRN Reason: Constipation Last Admin: 10/10/21 15:16 Dose: 133 ml Documented by: Tramadol HCl (Tramadol Hcl 50 Mg Tablet) 50 mg PO BID PRN PRN Reason: Pain, Mild (Pain Scale 1-3) Last Admin: 10/11/21 11:10 Dose: 50 mg Documented by: Trazodone HCl (Trazodone Hcl 50 Mg Tablet) 50 mg PO BEDTIME PRN PRN Reason: Insomnia Allergies Allergies Allergy/AdvReac Type Severity Reaction Status Date / Time diazepam [From Valium] Allergy Unknown Unknown Verified 08/10/21 20:04 haloperidol [From Haldol] Allergy Unknown Unknown Verified 08/10/21 20:04 Penicillins Allergy Unknown Unknown Verified 08/10/21 20:04 risperidone [From Risperdal] Allergy Unknown Unknown Verified 08/10/21 20:04 aspirin [Aspirin] AdvReac Intermediate Vomiting Verified 08/10/21 20:04 trazodone [TRAZODONE] AdvReac Intermediate NAUSEA & Verified 08/10/21 20:04 VOMITING Assessment & Plan Assessment & Plan (1) Schizophrenia: Status: Acute Code(s): F20.9 - Schizophrenia, unspecified Assessment and Plan: Ms. Beckwith is a 56 year-old woman with long hx of schizophrenia. Known to this unit through past admission with similar presentation. Pt presents with exacerbation of CAH and SI. She also reports weakness, chronic constipation (on clozaril). Added miralax BID, which was recommended by GI back in november. Will do KUB to r/o obstruction or other complications as pt with hx of acute colitis. We discussed risks, benefits and alternative treatment option. PLAN 1. Admit to M3, CV, 15 mins checks for safety. 2. Continue current dose of clozaril, will check clozaril levels 3. monitor ANC weekly while on unit. 4. constipation- KUB, adding miralax BID and continue colace 100mg po bid. 5. Obtain collateral information 6. Aftercare planning. - 10/01/21: Added Trilafon 2 mg TID. Titrate as tolerated and clinically indicated 10/02: No change 10/03: increased trilafon to 4 mg TID 10/04: decreasing trilafon to 2 TID per outpt director of finance's commentary. 10/05: trilafon DCed. 10/06: constipation continues, GI consult placed.? increase bowel regimen in the meantime. 10/07: GI consult completed, BM achieved yesterday. miralax increased to TID. 10/08: no change in mgmt. 10/11: stable. discharge tomorrow. (2) Constipation: Status: Acute Code(s): K59.00 - Constipation, unspecified Assessment and Plan: per 10/06 GI consult: 56-year-old [place]-speaking female with history of schizophrenia, asthma, COPD admitted with suicidal ideation, auditory and visual hallucinations Patient has a history of longstanding chronic constipation.? Her symptoms have been worse during hospitalization and she denies having a bowel movement for the past 4 days. TSH was normal Constipation is likely a combination of slow transit and multiple psyche medications She has been treated with multiple laxatives, Fleet enema and suppository without results. RECOMMENDATIONS: 1.? Large volume tap water enema x 1 tonight. 2.? If no results with tap water enema, repeat a 2nd enema in the am, start patient on a clear liquid diet x 24 hrs 3.? Once she starts having a BM, she can be started on Miralax 3 times daily. Pt was advised to schedule a screening colonoscopy as an outpatient after acute psychiatric illness has resolved. I spent minutes with the patient and/or on the patient floor today, greater than?50% of which was spent counseling/coordinating care. Reason for contiued inpatient stay Substantial Risk for: stable for discharge
[2021-10-11 22:45] VITALS: BP 115/69; PULSE 108; TEMP 36.4; O2SAT 95
[2021-10-11] MEDS: Divalproex Sodium ER 500 MG TAB.ER.24H 1500 MG PO (22:48)
[2021-10-11] MEDS: polyethylene glycoL 3350 17 GM POWD.PACK PO (22:48)
[2021-10-11] MEDS: clonazePAM 1 MG TABLET PO (22:49)
[2021-10-11] MEDS: Sennosides 8.6 MG TABLET 17.2 MG PO (22:49)
[2021-10-11] MEDS: lisinopriL 10 MG TABLET PO (22:49)
[2021-10-11] MEDS: cloZAPine 100 MG TABLET 300 MG PO (22:50)
[2021-10-11] MEDS: bisacodyL 5 MG TABLET.DR 10 MG PO (22:50)
[2021-10-12] MEDS: hydrOXYzine HCL 25 MG TABLET PO (01:03)
[2021-10-12 09:06] LABS: Neut%MD 39.5 %; Neutrophils Absolute Auto 3.2 x10*3/uL (2.0-8.3)
[2021-10-12] MEDS: FLUoxetine HCl 20 MG CAPSULE PO (09:25)
[2021-10-12] MEDS: Docusate Sodium 100 MG CAPSULE 200 MG PO (09:26)
[2021-10-12] MEDS: Fluticasone Propionate 100 MCG BLST.W.DEV 2 PUFF INHALE (09:26)
[2021-10-12] MEDS: cloZAPine 25 MG TABLET 50 MG PO (09:27)
[2021-10-12] MEDS: clonazePAM 0.5 MG TABLET PO (09:27)
[2021-10-12] MEDS: Omeprazole 20 MG CAPSULE.DR PO (09:27)
[2021-10-12] MEDS: Montelukast Sodium 10 MG TABLET PO (09:27)
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
--- NOTE | 2021-10-12 12:25 | PC.NURSE ---
Brenna is alert, fully oriented, pleasant and cooperative with discharge process. She reports feeling better than on admission - specifically less troubled by auditory and visual hallucinations. She denies ideation, plan or intent to harm self or others. She reports knee pain is at baseline. She denies other physical complaint. [ End ]
== END 2021-10-12 12:26 | disposition home or self-care (01) | DRG 750 ==
LOC: HO.ED 17:26 → HO.PADLT16 09-28 16:06
PROVIDERS: Nurse Practitioner Family; Physician Assistant; Social Worker; Admitting Provider Psychiatry & Neurology Psychiatry; Emergency Provider Emergency Medicine; Visit Provider Psychiatry & Neurology Psychiatry
DX: F20.9 Schizophrenia, unspecified (principal); R45.851 Suicidal ideations; K59.00 Constipation, unspecified; Z20.822 Contact with and (suspected) exposure to COVID-19; Z88.0 Allergy status to penicillin; Z79.891 Long term (current) use of opiate analgesic; Z88.6 Allergy status to analgesic agent; Z79.899 Other long term (current) drug therapy
CPT/HCPCS: 36415; 74018; 80048; 80061; 80076; 80159; 80164; 80307; 82077; 82607; 82746; 83036; 84443; 85025; 85048; 87635; 93005; 99285

== ENCOUNTER 2021-10-19 13:34 | Outpatient (REF) | payer MEDICAID, SELFPAY ==
[2021-10-19 13:48] LABS: MANUAL DIFF FLAG NO
[2021-10-19 14:12] LABS: Basophils Percent Auto 0.2 % (0-2); Eosinophils Absolute Auto 0.1 X10*3/uL (0.0-0.4); Eosinophils Percent Auto 1.3 % (0-4); Hematocrit 34.4 % (37.0-47.0); Imm Gran Abs Auto 0.04 X10*3/uL (0.00-0.03); Imm Gran Pct Auto 0.5 % (0.0-0.4); Lymphocytes Absolute Auto 2.9 X10*3/uL (1.2-4.9); Lymphocytes Percent Auto 34.4 % (20-40); Mean Corpuscular Hemoglobin 29.3 pg (27.0-33.0); Mean Corpuscular Volume 91.5 fL (80.0-98.0); Mean Platelet Volume 11.8 fL (9.4-12.3); Monocytes Absolute Auto 0.8 X10*3/uL (0.1-1.2); Monocytes Percent Auto 8.8 % (2-11); Neut%MD 54.8 %; Neutrophils Absolute Auto 4.7 x10*3/uL (2.0-8.3); Neutrophils Percent Auto 54.8 % (45-73); Platelet Count 272 X10*3/uL (160-400); Red Blood Count 3.76 X10*6/uL (4.20-5.50); Red Cell Distribution Width 14.6 % (11.0-16.0); WBCANC 8.5 X10*3/uL; White Blood Count 8.5 X10*3/uL (4.8-10.8)
== END 2021-10-19 13:35 | disposition home or self-care (01) ==
LOC: HO.LABR 13:34
PROVIDERS: PCP Internal Medicine; Visit Provider Clinical Nurse Specialist Psychiatric/Mental Health, Adult
DX: Z79.899 Other long term (current) drug therapy (principal)
CPT/HCPCS: 36415; 85025

== ENCOUNTER 2021-11-08 10:20 | Outpatient (REF) | payer MEDICAID, SELFPAY ==
[2021-11-08 12:08] LABS: Valproate 103.2 mcg/mL (50.0-100.0)
[2021-11-08 12:14] LABS: Alanine Aminotransferase 29 U/L (0-31); Alkaline Phosphatase 84 U/L (39-117); Anion Gap 16 (12-20); Aspartate Amino Transferase 14 U/L (5-31); Bilirubin Total 0.3 mg/dL (0.0-1.0); Blood Urea Nitrogen 17 mg/dL (9-16); Calcium 9.8 mg/dL (8.4-10.2); Carbon Dioxide 25 mmol/L (22-29); Chloride 101 mmol/L (96-108); Estimated Glomerular Filt Rate > 60; Glucose Random 126 mg/dL (60-115); Potassium 4.7 mmol/L (3.3-5.1); Sodium 137 mmol/L (135-145); Total Protein 6.9 g/dL (6.5-8.0)
== END 2021-11-08 10:21 | disposition home or self-care (01) ==
LOC: HO.LAB 10:20
PROVIDERS: PCP Internal Medicine; Visit Provider Clinical Nurse Specialist Psychiatric/Mental Health, Adult
DX: Z79.899 Other long term (current) drug therapy (principal)
CPT/HCPCS: 36415; 80053; 80164

== ENCOUNTER 2021-12-13 12:20 | Outpatient (REF) | payer MEDICAID, SELFPAY ==
[2021-12-13 12:46] LABS: MANUAL DIFF FLAG NO
[2021-12-13 13:07] LABS: Basophils Percent Auto 0.3 % (0-2); Eosinophils Absolute Auto 0.1 X10*3/uL (0.0-0.4); Hematocrit 37.3 % (37.0-47.0); Hemoglobin 11.7 g/dl (12.0-16.0); Imm Gran Abs Auto 0.02 X10*3/uL (0.00-0.03); Imm Gran Pct Auto 0.3 % (0.0-0.4); Mean Corpuscular HGB Conc 31.4 g/dl (31.0-35.0); Mean Corpuscular Volume 92.3 fL (80.0-98.0); Mean Platelet Volume 11.7 fL (9.4-12.3); Monocytes Absolute Auto 0.5 X10*3/uL (0.1-1.2); Monocytes Percent Auto 7.2 % (2-11); Neutrophils Absolute Auto 3.6 x10*3/uL (2.0-8.3); Neutrophils Percent Auto 50.2 % (45-73); Platelet Count 255 X10*3/uL (160-400); Red Blood Count 4.04 X10*6/uL (4.20-5.50); Red Cell Distribution Width 13.6 % (11.0-16.0); White Blood Count 7.2 X10*3/uL (4.8-10.8)
== END 2021-12-13 12:21 | disposition home or self-care (01) ==
LOC: HO.LABR 12:20
PROVIDERS: PCP Internal Medicine; Visit Provider Clinical Nurse Specialist Psychiatric/Mental Health, Adult
DX: Z79.899 Other long term (current) drug therapy (principal)
CPT/HCPCS: 36415; 85025

== ENCOUNTER 2021-12-24 14:44 | Inpatient (IN) | payer OTHER, MEDICAID, SELFPAY ==
[2021-12-24 15:49] VITALS: BP 151/87; PULSE 103; RESP 18; TEMP 37.2; O2SAT 94; BMI 36.6
--- NOTE | 2021-12-24 15:59 | ED.PSYCH ---
HPI - Psych General Chief Complaint: Psychiatric Symptoms Stated Complaint: Psychiatric symptoms/SI Time Seen by Provider: 12/24/21 15:58 Source: patient Mode of arrival: ambulatory Limitations: no limitations History of Present Illness HPI Narrative: 56-year-old female with a history of schizophrenia and chronic mental illness, presents for anxiety, depression, and hallucinations. Patient would like to go inpatient, she wants to go to [facility] Patient states she has been missing her mom who several years ago, tells me her granddaughter is in shelter. States that she is not suicidal, does not want to hurt anyone else, but she was having hallucinations. She has auditory hallucinations that tell her to cut herself, and she has visual hallucinations of animals on the floor. States she has been taking her meds as prescribed, no drug or alcohol use. Related Data Home Medications Medication Instructions Recorded Confirmed lactulose 10 gram/15 mL oral 15 ml PO DAILY PRN 07/07/21 12/24/21 solution (Generlac) albuterol sulfate 90 mcg/actuation 2 puff PO Q4-6H PRN 08/11/21 12/24/21 aerosol inhaler (ProAir HFA) bisacodyl 5 mg tablet,delayed 2 tab PO BEDTIME 08/11/21 12/24/21 release clonazepam 1 mg tablet 0.5 mg PO QAM 08/11/21 12/24/21 clonazepam 1 mg tablet (Klonopin) 1 mg PO BEDTIME 08/11/21 12/24/21 docusate sodium 100 mg capsule 1 cap PO BID PRN 08/11/21 12/24/21 sennosides 8.6 mg tablet (senna) 2 tab PO BEDTIME 08/11/21 12/24/21 tramadol 50 mg tablet 1 tab PO Q6H PRN 09/27/21 12/24/21 clozapine 100 mg tablet 3 tab PO BEDTIME 12/24/21 12/24/21 polyethylene glycol 3350 17 gram 17 g PO TID 12/24/21 12/24/21 oral powder packet Previous Rx's Medication Instructions Recorded clozapine 25 mg tablet 50 mg PO QAM 30 Days #60 tab 07/12/21 divalproex 500 mg tablet,extended 1,500 mg PO BEDTIME 30 Days #90 tab 07/12/21 release 24 hr fluoxetine 20 mg capsule 20 mg PO QAM 30 Days #30 cap 07/12/21 fluticasone propionate 110 2 puff PO BID 30 Days #12 g 07/12/21 mcg/actuation HFA aerosol inhaler (Flovent HFA) lisinopril 10 mg tablet 10 mg PO QPM 30 Days #30 tab 07/12/21 montelukast 10 mg tablet 10 mg PO DAILY 30 Days #30 tab 07/12/21 omeprazole 20 mg capsule,delayed 20 mg PO BID 30 Days #60 cap 07/12/21 release polyethylene glycol 3350 17 gram 17 g PO TID 30 Days #1600 g 10/12/21 oral powder packet Allergies Allergy/AdvReac Type Severity Reaction Status Date / Time diazepam [From Valium] Allergy Unknown Unknown Verified 08/10/21 20:04 haloperidol [From Haldol] Allergy Unknown Unknown Verified 08/10/21 20:04 Penicillins Allergy Unknown Unknown Verified 08/10/21 20:04 risperidone [From Risperdal] Allergy Unknown Unknown Verified 08/10/21 20:04 aspirin [Aspirin] AdvReac Intermediate Vomiting Verified 08/10/21 20:04 trazodone [TRAZODONE] AdvReac Intermediate NAUSEA & Verified 08/10/21 20:04 VOMITING Review of Systems Constitutional: Constitutional: Denies body ache(s), Denies chills, Denies fatigue, Denies fever(s), Denies headache(s), Denies malaise and Denies weakness Eyes: Eyes: Denies diplopia ENT: Reports Normal hearing present, Denies vertigo, Denies dizziness, Denies otalgia, Denies headache(s), Denies mouth pain, Denies post nasal drip, Denies sinus pain, Denies sinus pressure, Denies sore throat and Denies throat swelling Cardiovascular: Cardiovascular: Denies chest pain, Denies syncope, Denies leg edema, Denies lightheadedness, Denies Loss of Consciousness, Denies palpitations and Denies dyspnea Respiratory: Respiratory: Denies chest congestion, Denies cough and Denies dyspnea Gastrointestinal: Gastrointestinal: Denies abdominal pain, Denies hematochezia, Denies constipation, Denies diarrhea and Denies vomiting Musculoskeletal: Musculoskeletal: Reports arthralgias (Chronic bilateral knee pain, OA) Neurologic: Reports Normal hearing present, Denies Abnormal speech present, Denies confusion, Denies vertigo, Denies dizziness, Denies syncope, Denies headache(s), Denies Sensory deficit (Neuro) and Denies weakness Psychiatric: Psychiatric: Denies anxiety, Denies confusion and Denies depression Endocrine: Endocrine: Denies fatigue and Denies palpitations Allergic/Immunologic: Allergic/Immunologic: Denies throat swelling PMFSH Past Medical History Medical History Anxiety Asthma Chronic mental illness COPD (chronic obstructive pulmonary disease) Hyperlipidemia Morbid obesity due to excess calories Schizophrenia Surgical History H/O right knee surgery History of appendectomy History of tubal ligation Family History Family History Father Throat cancer Mother CVA (cerebral vascular accident) Brother Drug overdose Sister No problems noted. Sister No problems noted. Son No problems noted. Son No problems noted. Social History 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: Foster Family Household Members Other:: Lanny Soto, Inocencio Soto, - foster parents Housing: Apartment Do you presently have visiting nurse or other home services: Yes (Meds administered by [facility]) Unable to assess alcohol history related to: Unknown Alcohol intake: unknown Patient Tobacco Use Status: Never used Tobacco Tobacco use type: Cigarette Cigarettes Per Day: 10 e-Cigarette/Vaping Use: Never Used Second Hand Smoke Exposure: No Advance Directives: No Advance Directives Information Provided: No Advance Directives Date on File: 03/03/14 Patient : No service: No Current occupational status: disabled Sexual orientation: Don't Know Physical Exam Vital Signs: Vital Signs: Last Vital Signs Temp 98.9 F 12/24/21 15:49 Pulse 103 H 12/24/21 15:49 Resp 18 12/24/21 15:49 BP 151/87 H 12/24/21 15:49 Pulse Ox 94 12/24/21 15:49 BMI result Body Mass Index 36.6 Const: General: No confusion Nutritional Appearance: well nourished Orientation/consciousness: patient oriented x3 and No confusion Limitations: no limitations HEENT: Head: Yes normal to inspection, Yes normocephalic and Yes atraumatic Ears: hearing grossly normal bilaterally, external ears normal, TM's normal bilaterally and EAC's normal General nose exam: Normal external nose present Face and sinus: Yes normal facial exam and Yes sinuses nontender Mouth: Normal oral and palatal mucosa present Throat: Yes posterior oropharynx normal Eyes: Conjunctivae: conjunctivae normal Pupils: Equal, round and reactive pupils present EOM: EOMs intact bilaterally Neck: Neck: Yes full ROM, Yes no lymphadenopathy and Yes supple Resp: Effort & Inspection: normal respiratory effort and able to speak in complete sentences Auscultation: clear to auscultation bilaterally, no crackles, no rales, no rhonchi and no wheezes Cardio: Rate: regular rate Rhythm: regular rhythm Heart sounds: S1 normal heart sound present and S2 normal heart sound present GI: Inspection: Yes normal to inspection Palpation (GI): Soft to palpation, nontender, no guarding and not rigid Percussion: Yes normal to percussion Auscultation: normal bowel sounds Skin: General skin exam: no rashes or lesions noted Neuro: General: patient oriented x3, gait normal and No confusion Cranial nerves: Yes CN's II-XII intact bilaterally, Yes Facial sensation intact/muscles of mastication intact, Yes Equal, round and reactive pupils present, Yes Normal accommodation reflex present, Yes Bilaterally intact EOM present, Yes Nystagmus not present, Yes Normal facial strength present, Yes Midline tongue present, Yes Normal hearing present, Yes Ability to bilaterally rotate head present and Yes Ability to bilaterally elevate shoulders present Cognition (Neuro): normal cognition Speech: No Abnormal speech present Gait exam (Neuro): Normal gait present Motor exam (neuro): 5/5 motor strength present throughout and Pronator motor function not present Sensory Exam: No Sensory deficit (Neuro) Coordination: [id number] test normal Pupils: Normal pupillary reactivity/response: bilateral Extrem: General: Yes normal to inspection and Yes full ROM Psych: Appearance: grossly normal Affect: normal affect Attitude: cooperative Thought process: Normal thought process present Course Course Course Narrative: Labs remarkable for blood sugar of 191, and a Depakote level of 46.8 Patient is medically cleared at this time MDM - Psych Lab Data Result diagrams: 12/24/21 17:58 12/24/21 17:58 Labs: Lab Results 12/24/21 12/24/21 12/24/21 Range/Units 16:03 16:03 16:09 WBC (4.8-10.8) X10*3/uL RBC (4.20-5.50) X10*6/uL Hgb (12.0-16.0) g/dl Hct (37.0-47.0) % MCV (80.0-98.0) fL MCH (27.0-33.0) pg MCHC (31.0-35.0) g/dl RDW (11.0-16.0) % Plt Count (160-400) X10*3/uL MPV (9.4-12.3) fL Immature Gran % (Auto) (0.0-0.4) % Neut % (Auto) (45-73) % Lymph % (Auto) (20-40) % [place] % (Auto) (2-11) % Eos % (Auto) (0-4) % Baso % (Auto) (0-2) % Lymph # (Auto) (1.2-4.9) X10*3/uL [place] # (Auto) (0.1-1.2) X10*3/uL Eos # (Auto) (0.0-0.4) X10*3/uL Baso # (Auto) (0.0-0.2) X10*3/uL Abs Immat Gran (auto) (0.00-0.03) X10*3/uL Absolute Neuts (auto) (2.0-8.3) x10*3/uL Absolute Nucleated RBC (0.0-0.012) X10*3/uL Nucleated RBC % (auto) (0.0-0.2) /100WBC Sodium (135-145) mmol/L Potassium (3.3-5.1) mmol/L Chloride (96-108) mmol/L Carbon Dioxide (22-29) mmol/L Anion Gap (12-20) BUN (9-16) mg/dL Creatinine (0.5-1.4) mg/dL Estim Creat Clear Calc Estimated GFR Random Glucose (60-115) mg/dL Calcium (8.4-10.2) mg/dL Total Bilirubin (0.0-1.0) mg/dL AST (5-31) U/L ALT (0-31) U/L Alkaline Phosphatase (39-117) U/L Total Protein (6.5-8.0) g/dL Albumin (3.5-5.0) g/dL Urine Color YELLOW Urine Appearance CLEAR Urine pH 6.5 (5.0-8.0) Ur Specific [place] 1.025 (1.005-1.025) Urine Protein NEG (NEG-TRACE) MG/DL Urine Glucose (UA) NEG (NEG) MG/DL Urine Ketones NEG (NEG) MG/DL Urine Blood NEG (NEG) Urine Nitrite NEG (NEG) Ur Leukocyte Esterase NEG (NEG) Urine Opiates Screen Not Detected (Not Detect) Urine Fentanyl Screen Not Detected (Not Detect) Ur Barbiturates Screen Not Detected (Not Detect) Valproic Acid (50.0-100.0) mcg/mL Ur Phencyclidine Scrn Not Detected (Not Detect) Ur Amphetamines Screen Not Detected (Not Detect) U Benzodiazepines Scrn Not Detected (Not Detect) Urine Cocaine Screen Not Detected (Not Detect) U Marijuana (THC) Screen Not Detected (Not Detect) Ethyl Alcohol mg/dL COVID-19 ([facility]) Negative (Negative) COVID-19 Clin Com See Note 12/24/21 12/24/21 12/24/21 Range/Units 17:58 17:58 17:58 WBC 8.4 (4.8-10.8) X10*3/uL RBC 4.01 L (4.20-5.50) X10*6/uL Hgb 11.4 L (12.0-16.0) g/dl Hct 36.7 L (37.0-47.0) % MCV 91.5 (80.0-98.0) fL MCH 28.4 (27.0-33.0) pg MCHC 31.1 (31.0-35.0) g/dl RDW 13.5 (11.0-16.0) % Plt Count 261 (160-400) X10*3/uL MPV 11.5 (9.4-12.3) fL Immature Gran % (Auto) 0.6 H (0.0-0.4) % Neut % (Auto) 56.1 (45-73) % Lymph % (Auto) 33.8 (20-40) % [place] % (Auto) 8.3 (2-11) % Eos % (Auto) 1.0 (0-4) % Baso % (Auto) 0.2 (0-2) % Lymph # (Auto) 2.8 (1.2-4.9) X10*3/uL [place] # (Auto) 0.7 (0.1-1.2) X10*3/uL Eos # (Auto) 0.1 (0.0-0.4) X10*3/uL Baso # (Auto) 0.0 (0.0-0.2) X10*3/uL Abs Immat Gran (auto) 0.05 H (0.00-0.03) X10*3/uL Absolute Neuts (auto) 4.7 (2.0-8.3) x10*3/uL Absolute Nucleated RBC 0.000 (0.0-0.012) X10*3/uL Nucleated RBC % (auto) 0.0 (0.0-0.2) /100WBC Sodium 139 (135-145) mmol/L Potassium 3.8 (3.3-5.1) mmol/L Chloride 101 (96-108) mmol/L Carbon Dioxide 27 (22-29) mmol/L Anion Gap 15 (12-20) BUN 11 (9-16) mg/dL Creatinine 0.65 (0.5-1.4) mg/dL Estim Creat Clear Calc 93.5 Estimated GFR > 60 Random Glucose 191 H (60-115) mg/dL Calcium 9.5 (8.4-10.2) mg/dL Total Bilirubin 0.2 (0.0-1.0) mg/dL AST 15 (5-31) U/L ALT 27 (0-31) U/L Alkaline Phosphatase 87 (39-117) U/L Total Protein 7.0 (6.5-8.0) g/dL Albumin 4.2 (3.5-5.0) g/dL Urine Color Urine Appearance Urine pH (5.0-8.0) Ur Specific [place] (1.005-1.025) Urine Protein (NEG-TRACE) MG/DL Urine Glucose (UA) (NEG) MG/DL Urine Ketones (NEG) MG/DL Urine Blood (NEG) Urine Nitrite (NEG) Ur Leukocyte Esterase (NEG) Urine Opiates Screen (Not Detect) Urine Fentanyl Screen (Not Detect) Ur Barbiturates Screen (Not Detect) Valproic Acid 46.8 L (50.0-100.0) mcg/mL Ur Phencyclidine Scrn (Not Detect) Ur Amphetamines Screen (Not Detect) U Benzodiazepines Scrn (Not Detect) Urine Cocaine Screen (Not Detect) U Marijuana (THC) Screen (Not Detect) Ethyl Alcohol mg/dL COVID-19 ([facility]) (Negative) COVID-19 Clin Com 12/24/21 Range/Units 17:58 WBC (4.8-10.8) X10*3/uL RBC (4.20-5.50) X10*6/uL Hgb (12.0-16.0) g/dl Hct (37.0-47.0) % MCV (80.0-98.0) fL MCH (27.0-33.0) pg MCHC (31.0-35.0) g/dl RDW (11.0-16.0) % Plt Count (160-400) X10*3/uL MPV (9.4-12.3) fL Immature Gran % (Auto) (0.0-0.4) % Neut % (Auto) (45-73) % Lymph % (Auto) (20-40) % [place] % (Auto) (2-11) % Eos % (Auto) (0-4) % Baso % (Auto) (0-2) % Lymph # (Auto) (1.2-4.9) X10*3/uL [place] # (Auto) (0.1-1.2) X10*3/uL Eos # (Auto) (0.0-0.4) X10*3/uL Baso # (Auto) (0.0-0.2) X10*3/uL Abs Immat Gran (auto) (0.00-0.03) X10*3/uL Absolute Neuts (auto) (2.0-8.3) x10*3/uL Absolute Nucleated RBC (0.0-0.012) X10*3/uL Nucleated RBC % (auto) (0.0-0.2) /100WBC Sodium (135-145) mmol/L Potassium (3.3-5.1) mmol/L Chloride (96-108) mmol/L Carbon Dioxide (22-29) mmol/L Anion Gap (12-20) BUN (9-16) mg/dL Creatinine (0.5-1.4) mg/dL Estim Creat Clear Calc Estimated GFR Random Glucose (60-115) mg/dL Calcium (8.4-10.2) mg/dL Total Bilirubin (0.0-1.0) mg/dL AST (5-31) U/L ALT (0-31) U/L Alkaline Phosphatase (39-117) U/L Total Protein (6.5-8.0) g/dL Albumin (3.5-5.0) g/dL Urine Color Urine Appearance Urine pH (5.0-8.0) Ur Specific [place] (1.005-1.025) Urine Protein (NEG-TRACE) MG/DL Urine Glucose (UA) (NEG) MG/DL Urine Ketones (NEG) MG/DL Urine Blood (NEG) Urine Nitrite (NEG) Ur Leukocyte Esterase (NEG) Urine Opiates Screen (Not Detect) Urine Fentanyl Screen (Not Detect) Ur Barbiturates Screen (Not Detect) Valproic Acid (50.0-100.0) mcg/mL Ur Phencyclidine Scrn (Not Detect) Ur Amphetamines Screen (Not Detect) U Benzodiazepines Scrn (Not Detect) Urine Cocaine Screen (Not Detect) U Marijuana (THC) Screen (Not Detect) Ethyl Alcohol < 10 mg/dL COVID-19 ([facility]) (Negative) COVID-19 Clin Com Discharge Plan Discharge Clinical Impression: Auditory hallucination, Depression, Hallucination, visual, Anxiety Patient Disposition: Still a Patient Prescriptions: No Action lactulose [Generlac] 10 gram/15 mL solution 15 ml PO DAILY PRN (Reason: Constipation) 0RF lisinopril 10 mg tablet 10 mg PO QPM 30 Days Qty: 30 0RF divalproex 500 mg tablet extended release 24 hr 1,500 mg PO BEDTIME 30 Days Qty: 90 0RF omeprazole 20 mg capsule,delayed release(DR/EC) 20 mg PO BID 30 Days Qty: 60 0RF montelukast 10 mg tablet 10 mg PO DAILY 30 Days Qty: 30 0RF clozapine 25 mg tablet 50 mg PO QAM 30 Days Qty: 60 0RF fluoxetine 20 mg capsule 20 mg PO QAM 30 Days Qty: 30 0RF Flovent HFA 110 mcg/actuation HFA aerosol inhaler 2 puff PO BID 30 Days Qty: 12 0RF tramadol 50 mg tablet 1 tab PO Q6H PRN (Reason: Pain) 0RF polyethylene glycol 3350 17 gram Powder In Packet 17 g PO TID 30 Days Qty: 1600 0RF sennosides [senna] 8.6 mg tablet 2 tab PO BEDTIME 0RF docusate sodium 100 mg capsule 1 cap PO BID PRN (Reason: Constipation) 0RF bisacodyl 5 mg tablet,delayed release (DR/EC) 2 tab PO BEDTIME 0RF albuterol sulfate [ProAir HFA] 90 mcg/actuation HFA aerosol inhaler 2 puff PO Q4-6H PRN (Reason: Wheezing) 0RF clonazepam 1 mg Tablet 0.5 mg PO QAM 0RF clonazepam [Klonopin] 1 mg Tablet 1 mg PO BEDTIME 0RF clozapine 100 mg tablet 3 tab PO BEDTIME 0RF polyethylene glycol 3350 17 gram powder in packet 17 g PO TID 0RF
[2021-12-24 16:28] LABS: Amphetamine Screen Urine Not Detected (Not Detect); Barbiturates, Urine Not Detected (Not Detect); Benzodiazepines Screen Urine Not Detected (Not Detect); Cannabinoid Screen Urine Not Detected (Not Detect); Cocaine Screen Urine Not Detected (Not Detect); Fentanyl, urine Not Detected (Not Detect); Opiate Screen Urine Not Detected (Not Detect); Phencyclidine Screen Urine Not Detected (Not Detect)
[2021-12-24 16:30] LABS: COVID-19 Test Negative (Negative)
[2021-12-24 17:16] LABS: Appearance Urine CLEAR; Color Urine YELLOW; Glucose Urine UA NEG (NEG); Leukocyte Esterase Urine NEG (NEG); Nitrite Urine NEG (NEG); PH 6.5 (5.0-8.0); Specific Gravity - Urine 1.025 (1.005-1.025); Urine Blood NEG (NEG); Urine Ketones NEG (NEG); Urine Protein NEG (NEG-TRACE)
[2021-12-24 18:03] LABS: MANUAL DIFF FLAG NO
[2021-12-24 18:14] LABS: Basophils Percent Auto 0.2 % (0-2); Eosinophils Absolute Auto 0.1 X10*3/uL (0.0-0.4); Hematocrit 36.7 % (37.0-47.0); Hemoglobin 11.4 g/dl (12.0-16.0); Imm Gran Abs Auto 0.05 X10*3/uL (0.00-0.03); Imm Gran Pct Auto 0.6 % (0.0-0.4); Lymphocytes Absolute Auto 2.8 X10*3/uL (1.2-4.9); Lymphocytes Percent Auto 33.8 % (20-40); Mean Corpuscular HGB Conc 31.1 g/dl (31.0-35.0); Mean Corpuscular Hemoglobin 28.4 pg (27.0-33.0); Mean Corpuscular Volume 91.5 fL (80.0-98.0); Mean Platelet Volume 11.5 fL (9.4-12.3); Monocytes Absolute Auto 0.7 X10*3/uL (0.1-1.2); Monocytes Percent Auto 8.3 % (2-11); Neutrophils Absolute Auto 4.7 x10*3/uL (2.0-8.3); Neutrophils Percent Auto 56.1 % (45-73); Platelet Count 261 X10*3/uL (160-400); Red Blood Count 4.01 X10*6/uL (4.20-5.50); Red Cell Distribution Width 13.5 % (11.0-16.0); White Blood Count 8.4 X10*3/uL (4.8-10.8)
[2021-12-24 18:32] LABS: Alanine Aminotransferase 27 U/L (0-31); Albumin Level 4.2 g/dL (3.5-5.0); Alkaline Phosphatase 87 U/L (39-117); Anion Gap 15 (12-20); Aspartate Amino Transferase 15 U/L (5-31); Bilirubin Total 0.2 mg/dL (0.0-1.0); Blood Urea Nitrogen 11 mg/dL (9-16); Calcium 9.5 mg/dL (8.4-10.2); Carbon Dioxide 27 mmol/L (22-29); Chloride 101 mmol/L (96-108); Creatinine Clr Calc Pharmacy 93.5; Estimated Glomerular Filt Rate > 60; Glucose Random 191 mg/dL (60-115); Potassium 3.8 mmol/L (3.3-5.1); Sodium 139 mmol/L (135-145)
[2021-12-24 18:36] LABS: Valproate 46.8 mcg/mL (50.0-100.0)
[2021-12-24 18:46] LABS: Ethanol < 10 mg/dL
[2021-12-24] MEDS: Divalproex Sodium ER 500 MG TAB.ER.24H 1500 MG PO (21:03)
[2021-12-24] MEDS: clonazePAM 1 MG TABLET PO (21:03)
[2021-12-24] MEDS: bisacodyL 5 MG TABLET.DR 10 MG PO (21:03)
[2021-12-24] MEDS: Sennosides 8.6 MG TABLET 17.2 MG PO (21:03)
[2021-12-24] MEDS: polyethylene glycoL 3350 17 GM POWD.PACK PO (21:04)
[2021-12-24] MEDS: cloZAPine 100 MG TABLET 300 MG PO (21:19)
[2021-12-24] MEDS: traMADoL HCL 50 MG TABLET PO (21:21)
[2021-12-25] VITALS: BP 161/90; PULSE 83; RESP 16; TEMP 36.7; O2SAT 96
[2021-12-25] MEDS: Omeprazole 20 MG CAPSULE.DR PO ×2 (05:50→16:47)
--- NOTE | 2021-12-25 05:54 | PC.NURSE ---
Patient slept through the night, up couple of times for bathroom use and back, reported hearing voices, no other distress observed/reported, [facility] referral completed/confirmed/pending ETA, behavior appropriate, mood depressed, VSS, will continue to monitor.
--- NOTE | 2021-12-25 06:07 | PC.NURSE ---
Patient compliant with her medication.
--- NOTE | 2021-12-25 07:08 | PC.NURSE ---
patient appears to remain asleep at present respirations are even and unlabored patient appears in no distress
[2021-12-25] MEDS: Montelukast Sodium 10 MG TABLET PO (10:21)
[2021-12-25] MEDS: cloZAPine 25 MG TABLET 50 MG PO (10:21)
[2021-12-25] MEDS: FLUoxetine HCl 20 MG CAPSULE PO (10:21)
[2021-12-25] MEDS: traMADoL HCL 50 MG TABLET PO ×3 (10:21→20:25)
[2021-12-25] MEDS: clonazePAM 0.5 MG TABLET PO (10:29)
[2021-12-25] MEDS: lisinopriL 10 MG TABLET PO (16:47)
[2021-12-25 17:05] VITALS: BP 143/85; PULSE 84; RESP 18; TEMP 37.1; O2SAT 96
[2021-12-25] MEDS: Divalproex Sodium ER 500 MG TAB.ER.24H 1500 MG PO (20:25)
[2021-12-25] MEDS: bisacodyL 5 MG TABLET.DR 10 MG PO (20:25)
[2021-12-25] MEDS: clonazePAM 1 MG TABLET PO (20:25)
[2021-12-25] MEDS: polyethylene glycoL 3350 17 GM POWD.PACK PO (20:25)
[2021-12-25] MEDS: Sennosides 8.6 MG TABLET 17.2 MG PO (20:25)
[2021-12-25] MEDS: cloZAPine 100 MG TABLET 300 MG PO (20:26)
[2021-12-25] MEDS: Docusate Sodium 100 MG CAPSULE PO (20:33)
[2021-12-25] MEDS: Fluticasone Propionate 100 MCG BLST.W.DEV 2 PUFF INHALE (20:43)
[2021-12-25 23:04] VITALS: BP 133/83; PULSE 89; RESP 16; TEMP 36.7; O2SAT 95
--- NOTE | 2021-12-26 | ECG_ITS ---
Test Reason : medical clearance Blood Pressure : / mmHG Vent. Rate : 079 BPM Atrial Rate : 079 BPM P-R Int : 134 ms QRS Dur : 076 ms QT Int : 384 ms P-R-T Axes : 066 048 030 degrees QTc Int : 440 ms Normal sinus rhythm Normal ECG When compared with ECG of 28-SEP-2021 09:29, No significant change was found Referred By: Angelica Castellano Electronically Signed By:DELISA MOON MD
[2021-12-26] MEDS: traMADoL HCL 50 MG TABLET PO ×4 (04:06→22:17)
--- NOTE | 2021-12-26 06:05 | PC.NURSE ---
Patient slept through the night, no distress observed/reported, behavior non concerning at this time, patient intermittently reporting AH, medication compliant, disposition per N is section 12 inpatient bed search, VSS, will continue to monitor.
[2021-12-26] MEDS: Omeprazole 20 MG CAPSULE.DR PO ×2 (06:25→15:08)
--- NOTE | 2021-12-26 07:06 | PC.NURSE ---
patient awake but at rest at present, early after arrival patient came and checked in with t/w re disposition. respirations are even and unlabored patient easily able to makes needs known, asked for suagr for coffee. appears in no distress.
[2021-12-26 08:41] VITALS: BP 112/63; PULSE 83; RESP 16; TEMP 36.8; O2SAT 95
[2021-12-26] MEDS: clonazePAM 0.5 MG TABLET PO (09:24)
[2021-12-26] MEDS: cloZAPine 25 MG TABLET 50 MG PO (09:24)
[2021-12-26] MEDS: Fluticasone Propionate 100 MCG BLST.W.DEV 2 PUFF INHALE ×2 (09:24→22:20)
[2021-12-26] MEDS: FLUoxetine HCl 20 MG CAPSULE PO (09:25)
[2021-12-26] MEDS: Montelukast Sodium 10 MG TABLET PO (09:25)
[2021-12-26] MEDS: polyethylene glycoL 3350 17 GM POWD.PACK PO (15:06)
--- NOTE | 2021-12-26 15:34 | PC.NURSE ---
nurse to nurse given to [facility] GUILLE Vanessa
[2021-12-26 16:15] VITALS: BP 146/82; PULSE 88; RESP 18; TEMP 36.1; O2SAT 94
[2021-12-26 16:54] VITALS: BMI 35.9
[2021-12-26 17:55] VITALS: BP 137/73; PULSE 86; RESP 18; O2SAT 97
[2021-12-26] MEDS: lisinopriL 10 MG TABLET PO (17:59)
--- NOTE | 2021-12-26 18:11 | PC.ADMIT ---
Patient is a 56 year old female, brought to the ED voluntarily for command auditory hallucinations telling her to cut her wrist by her long time care worker from the adult foster care Patient presents from the ED on a CV with a diagnosis of unspecified schizophrenia. Per [facility] evalution, patient has a history of decompensating around holidays and having SI and flashbacks to past trauma. Per [facility] report, Brenna reported to adult foster mother, Lanny, that Mother's Day became a reminder for her that she has no contact with her bio family. Patient reports she also has VH of blood, and snakes. She denies HI. She admitted on arrival that she is currently having AH, but reports at this time that the hallucinations are manageable, and that she is able to come to staff if she feels overwhelmed or unsafe. Patient is on clozaril, and states she has been compliant with medications. Medical history includes hypertension, and osteoarthritis. Patient is Dominican speaking mainly, admission was done w/ statue maker present. She is familiar with the unit. Pleasant and cooperative w/ admission, affect even.
[2021-12-26] MEDS: clonazePAM 1 MG TABLET PO (22:16)
[2021-12-26] MEDS: Divalproex Sodium ER 500 MG TAB.ER.24H 1500 MG PO (22:16)
[2021-12-26] MEDS: bisacodyL 5 MG TABLET.DR 10 MG PO (22:16)
[2021-12-26] MEDS: cloZAPine 100 MG TABLET 300 MG PO (22:16)
[2021-12-26] MEDS: Docusate Sodium 100 MG CAPSULE PO (22:16)
[2021-12-26] MEDS: Sennosides 8.6 MG TABLET 17.2 MG PO (22:16)
[2021-12-27 08:15] VITALS: BP 126/78; PULSE 92; RESP 18; TEMP 36.4; O2SAT 96
[2021-12-27] MEDS: cloZAPine 25 MG TABLET 50 MG PO (09:15)
[2021-12-27] MEDS: traMADoL HCL 50 MG TABLET PO ×3 (09:15→21:50)
[2021-12-27] MEDS: Omeprazole 20 MG CAPSULE.DR PO ×2 (09:16→17:08)
[2021-12-27] MEDS: clonazePAM 0.5 MG TABLET PO (09:16)
[2021-12-27] MEDS: Montelukast Sodium 10 MG TABLET PO (09:16)
[2021-12-27] MEDS: FLUoxetine HCl 20 MG CAPSULE PO (09:17)
[2021-12-27] MEDS: Fluticasone Propionate 100 MCG BLST.W.DEV 2 PUFF INHALE ×2 (09:19→21:13)
[2021-12-27] MEDS: polyethylene glycoL 3350 17 GM POWD.PACK PO ×3 (09:19→21:51)
[2021-12-27 17:03] VITALS: BP 136/68; PULSE 104; RESP 18; O2SAT 97
[2021-12-27] MEDS: lisinopriL 10 MG TABLET PO (17:08)
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
[2021-12-27] MEDS: hydrOXYzine HCL 25 MG TABLET PO (17:37)
[2021-12-27] MEDS: Divalproex Sodium ER 500 MG TAB.ER.24H 1500 MG PO (21:50)
[2021-12-27] MEDS: clonazePAM 1 MG TABLET PO (21:50)
[2021-12-27] MEDS: bisacodyL 5 MG TABLET.DR 10 MG PO (21:51)
[2021-12-27] MEDS: cloZAPine 100 MG TABLET 300 MG PO (21:51)
[2021-12-27] MEDS: Sennosides 8.6 MG TABLET 17.2 MG PO (21:51)
[2021-12-27] MEDS: Docusate Sodium 100 MG CAPSULE 200 MG PO (21:51)
[2021-12-27 22:55] VITALS: BP 102/58; PULSE 95; RESP 18; TEMP 36.4; O2SAT 96
[2021-12-28] MEDS: traMADoL HCL 50 MG TABLET PO ×4 (01:58→20:50)
[2021-12-28] MEDS: hydrOXYzine HCL 25 MG TABLET PO (02:00)
--- NOTE | 2021-12-28 02:03 | PC.NURSE ---
Brenna awake at 0200. Patient reports some pain and difficulty sleeping. Patient given Tramadol 1 hour early and was given some Atarax to help with increase anxiety due to not sleeping because of the pain. Nurse will continue to monitor.
[2021-12-28] MEDS: Omeprazole 20 MG CAPSULE.DR PO ×2 (06:38→15:58)
[2021-12-28] MEDS: Docusate Sodium 100 MG CAPSULE 200 MG PO ×2 (08:16→20:50)
[2021-12-28] MEDS: FLUoxetine HCl 20 MG CAPSULE PO (08:16)
[2021-12-28] MEDS: clonazePAM 0.5 MG TABLET PO (08:16)
[2021-12-28] MEDS: cloZAPine 25 MG TABLET 50 MG PO (08:16)
[2021-12-28] MEDS: Montelukast Sodium 10 MG TABLET PO (08:17)
[2021-12-28 08:22] VITALS: BP 127/62; PULSE 97; RESP 20; TEMP 36.2; O2SAT 96
--- NOTE | 2021-12-28 13:42 | HO.PSYCHPN ---
Subjective Subjective Date of Service: 12/28/21 Reason For Visit: SI Interim History: pt found resting in bed, easily rousable. calm, cooperative. reports depression, AVH continue same as yesterday, no change. asks for aspercreme to be scheduled. no other complaints or requests. per staff, not attending groups. slept most of the day. mild depression. c/o seeing snakes. did not eat breakfast or lunch, but did have dinner. up at 0200 c/o pain. got tramadol and atarax and returned to sleep. Mental Status Exam Mental Status Exam Narrative: A&O. Overweight, in casual attire, lying down in bed. fair eye contact, attentive. No abnormal involuntary movements. Calm, somewhat guarded, overall engaged. Non-pressured speech, spontaneous with regular rate and rhythm, normal volume and prosody. No prolonged speech latency or dysarthria. Mood is ?depressed,? affect is flat. Denies SI/SIB/HI upon inquiry. Endorses command AH to harm herself, VH of snakes and blood. Denies delusional thought content. Thoughts are concrete, linear. No known cognitive or memory impairment. Diagnostics Vital Signs (24Hr): Vital Signs - 24 hr 12/27/21 17:03 12/27/21 22:55 12/28/21 08:22 Temperature 97.6 F 97.2 F Pulse Rate 104 H 95 97 Respiratory Rate 18 18 20 Blood Pressure 136/68 102/58 L 127/62 Pulse Oximetry 97 96 96 BMI result Body Mass Index 35.9 Labs Results: 12/24/21 17:58 12/24/21 17:58 Medications Medications Current Medications Acetaminophen (Acetaminophen 325 Mg Tablet) 650 mg PO Q6H PRN PRN Reason: Headache/Pain Mild Scale (1-3) Al Hydroxide/Mg Hydroxide (Magnesium Hydrox/Alum Hydrox 30 Ml Oral.Susp) 30 ml PO Q6H PRN PRN Reason: Heartburn/Nausea Albuterol Sulfate (Albuterol Sulfate 90 Mcg 8 Gm Inhaler) 2 puff INHALE Q4H PRN PRN Reason: Wheezing Bisacodyl (Bisacodyl 5 Mg Tablet.) 10 mg PO BEDTIME [facility] Last Admin: 12/27/21 21:51 Dose: 10 mg Documented by: Clonazepam (Clonazepam 0.5 Mg Tablet) 0.5 mg PO DAILY [facility] Last Admin: 12/28/21 08:16 Dose: 0.5 mg Documented by: Clonazepam (Clonazepam 1 Mg Tablet) 1 mg PO BEDTIME [facility] Last Admin: 12/27/21 21:50 Dose: 1 mg Documented by: Clozapine (Clozapine 25 Mg Tablet) 50 mg PO DAILY [facility] Last Admin: 12/28/21 08:16 Dose: 50 mg Documented by: Clozapine (Clozapine 100 Mg Tablet) 300 mg PO BEDTIME [facility] Last Admin: 12/27/21 21:51 Dose: 300 mg Documented by: Divalproex Sodium (Divalproex Sodium Er 500 Mg Tab.Er.24h) 1,500 mg PO BEDTIME [facility] Last Admin: 12/27/21 21:50 Dose: 1,500 mg Documented by: Docusate Sodium (Docusate Sodium 100 Mg Capsule) 200 mg PO BID [facility] Last Admin: 12/28/21 08:16 Dose: 200 mg Documented by: Fluoxetine HCl (Fluoxetine Hcl 20 Mg Capsule) 20 mg PO DAILY [facility] Last Admin: 12/28/21 08:16 Dose: 20 mg Documented by: Fluticasone Propionate (Fluticasone Propionate 100 Mcg Blst.W.Dev) 2 puff INHALE RBID [facility] Last Admin: 12/28/21 08:20 Dose: Not Given Documented by: Hydroxyzine HCl (Hydroxyzine Hcl 25 Mg Tablet) 25 mg PO Q6H PRN PRN Reason: Anxiety Last Admin: 12/28/21 02:00 Dose: 25 mg Documented by: Lactulose (Lactulose 20 Gm/30 Ml Solution) 10 gm PO DAILY PRN PRN Reason: Constipation Lisinopril (Lisinopril 10 Mg Tablet) 10 mg PO DAILY@1800 [facility]; Protocol Last Admin: 12/27/21 17:08 Dose: 10 mg Documented by: Magnesium Hydroxide (Milk Of Magnesia 30 Ml Oral.Susp) 30 ml PO DAILY PRN PRN Reason: Constipation Montelukast Sodium (Montelukast Sodium 10 Mg Tablet) 10 mg PO DAILY [facility] Last Admin: 12/28/21 08:17 Dose: 10 mg Documented by: Omeprazole (Omeprazole 20 Mg Capsule.Dr) 20 mg PO BID@0630,1630 [facility] Last Admin: 12/28/21 06:38 Dose: 20 mg Documented by: Polyethylene Glycol (Polyethylene Glycol 3350 17 Gm Powd.Pack) 17 gm PO TID [facility] Last Admin: 12/28/21 08:21 Dose: Not Given Documented by: Senna (Sennosides 8.6 Mg Tablet) 17.2 mg PO BEDTIME [facility] Last Admin: 12/27/21 21:51 Dose: 17.2 mg Documented by: Tramadol HCl (Tramadol Hcl 50 Mg Tablet) 50 mg PO Q6H [facility] Last Admin: 12/28/21 10:30 Dose: 50 mg Documented by: Trolamine Salicylate/Aloe Vera (Trolamine Salicylate 10%/Aloe Cream 35.4 Gm) 1 appl TOPICAL QID [facility] Allergies Allergies Allergy/AdvReac Type Severity Reaction Status Date / Time diazepam [From Valium] Allergy Unknown Unknown Verified 08/10/21 20:04 haloperidol [From Haldol] Allergy Unknown Unknown Verified 08/10/21 20:04 Penicillins Allergy Unknown Unknown Verified 08/10/21 20:04 risperidone [From Risperdal] Allergy Unknown Unknown Verified 08/10/21 20:04 aspirin [Aspirin] AdvReac Intermediate Vomiting Verified 08/10/21 20:04 trazodone [TRAZODONE] AdvReac Intermediate NAUSEA & Verified 08/10/21 20:04 VOMITING Assessment & Plan Assessment & Plan (1) Schizophrenia: Status: Acute Code(s): F20.9 - Schizophrenia, unspecified Plan continue home medications. do not change psych regimen as per collateral from outpt provider that has not tended to help; pt will likely spontaneously improve within one week. added aspercreme for knee pain B/L per pt request. increased colace from 100 mg PO BID to 200 mg PO BID per pt request. monitor Sx, discharge once improved. I spent ___20___ minutes with the patient and/or on the patient floor today, greater than?50% of which was spent counseling/coordinating care. Reason for contiued inpatient stay Substantial Risk for: inability to function and rapid decompensation
[2021-12-28] MEDS: polyethylene glycoL 3350 17 GM POWD.PACK PO ×2 (16:01→20:49)
[2021-12-28 18:00] VITALS: BP 103/56; PULSE 86; TEMP 36.8; O2SAT 95
[2021-12-28] MEDS: lisinopriL 10 MG TABLET PO (18:21)
[2021-12-28] MEDS: Fluticasone Propionate 100 MCG BLST.W.DEV 2 PUFF INHALE (20:47)
[2021-12-28] MEDS: Divalproex Sodium ER 500 MG TAB.ER.24H 1500 MG PO (20:49)
[2021-12-28] MEDS: bisacodyL 5 MG TABLET.DR 10 MG PO (20:50)
[2021-12-28] MEDS: cloZAPine 100 MG TABLET 300 MG PO (20:51)
[2021-12-28] MEDS: Sennosides 8.6 MG TABLET 17.2 MG PO (20:51)
[2021-12-28] MEDS: clonazePAM 1 MG TABLET PO (20:51)
[2021-12-29 02:26] LABS: Clozapine (Clozaril) 708 mcg/L; Norclozapine 163 mcg/L (25-400)
[2021-12-29] MEDS: Omeprazole 20 MG CAPSULE.DR PO ×2 (05:35→15:45)
[2021-12-29] MEDS: traMADoL HCL 50 MG TABLET PO ×4 (05:35→22:23)
[2021-12-29 07:00] VITALS: BMI 36.3
[2021-12-29 08:30] VITALS: BP 107/52; PULSE 94; RESP 20; TEMP 36.3; O2SAT 95
[2021-12-29] MEDS: clonazePAM 0.5 MG TABLET PO (10:18)
[2021-12-29] MEDS: Montelukast Sodium 10 MG TABLET PO (10:18)
[2021-12-29] MEDS: cloZAPine 25 MG TABLET 50 MG PO (10:18)
[2021-12-29] MEDS: polyethylene glycoL 3350 17 GM POWD.PACK PO ×2 (10:19→22:25)
[2021-12-29] MEDS: Fluticasone Propionate 100 MCG BLST.W.DEV 2 PUFF INHALE ×2 (10:19→22:25)
[2021-12-29] MEDS: FLUoxetine HCl 20 MG CAPSULE PO (10:19)
[2021-12-29] MEDS: Docusate Sodium 100 MG CAPSULE 200 MG PO ×2 (10:29→22:26)
--- NOTE | 2021-12-29 12:35 | P.PNPSI_ITS ---
Subjective Subjective Date of Service: 12/29/21 Reason For Visit: SI Interim History: pt found resting in her bed. calm and cooperative. no change from past two days' presentation. endorses depressed mood and ego dystonic CAH. did ask for something PRN hyper. was informed atarax would be available. reports she is not ready to go home. states she is eating and sleeping and toileting well. per staff, slept much of the day shift yesterday. showered and ate. denies AH on first shift. c/o depression, slept well. Mental Status Exam Mental Status Exam Narrative: A&O. Overweight, in casual attire, lying down in bed. fair eye contact, attentive. No abnormal involuntary movements. Calm, somewhat guarded, overall engaged. Non-pressured speech, spontaneous with regular rate and rhythm, normal volume and prosody. No prolonged speech latency or dysarthria. Mood is ?depressed,? affect is flat. Denies SI/SIB/HI upon inquiry. Endorses command AH to harm herself. no delusional thought content evident. Thoughts are concrete, linear. No known cognitive or memory impairment. Diagnostics Vital Signs (24Hr): Vital Signs - 24 hr 12/28/21 18:00 12/29/21 08:30 Temperature 98.2 F 97.3 F Pulse Rate 86 94 Respiratory Rate 20 Blood Pressure 103/56 L 107/52 L Pulse Oximetry 95 95 BMI result Body Mass Index 36.3 Labs Results: 12/24/21 17:58 12/24/21 17:58 Labs: Laboratory Results - last 48 hr 12/24/21 17:58 Clozapine 708 Norclozapine 163 Medications Medications Current Medications Acetaminophen (Acetaminophen 325 Mg Tablet) 650 mg PO Q6H PRN PRN Reason: Headache/Pain Mild Scale (1-3) Al Hydroxide/Mg Hydroxide (Magnesium Hydrox/Alum Hydrox 30 Ml Oral.Susp) 30 ml PO Q6H PRN PRN Reason: Heartburn/Nausea Albuterol Sulfate (Albuterol Sulfate 90 Mcg 8 Gm Inhaler) 2 puff INHALE Q4H PRN PRN Reason: Wheezing Bisacodyl (Bisacodyl 5 Mg Tablet.) 10 mg PO BEDTIME [facility] Last Admin: 12/28/21 20:50 Dose: 10 mg Documented by: Clonazepam (Clonazepam 0.5 Mg Tablet) 0.5 mg PO DAILY [facility] Last Admin: 12/29/21 10:18 Dose: 0.5 mg Documented by: Clonazepam (Clonazepam 1 Mg Tablet) 1 mg PO BEDTIME [facility] Last Admin: 12/28/21 20:51 Dose: 1 mg Documented by: Clozapine (Clozapine 25 Mg Tablet) 50 mg PO DAILY [facility] Last Admin: 12/29/21 10:18 Dose: 50 mg Documented by: Clozapine (Clozapine 100 Mg Tablet) 300 mg PO BEDTIME [facility] Last Admin: 12/28/21 20:51 Dose: 300 mg Documented by: Divalproex Sodium (Divalproex Sodium Er 500 Mg Tab.Er.24h) 1,500 mg PO BEDTIME [facility] Last Admin: 12/28/21 20:49 Dose: 1,500 mg Documented by: Docusate Sodium (Docusate Sodium 100 Mg Capsule) 200 mg PO BID [facility] Last Admin: 12/29/21 10:29 Dose: 200 mg Documented by: Fluoxetine HCl (Fluoxetine Hcl 20 Mg Capsule) 20 mg PO DAILY [facility] Last Admin: 12/29/21 10:19 Dose: 20 mg Documented by: Fluticasone Propionate (Fluticasone Propionate 100 Mcg Blst.W.Dev) 2 puff INHALE RBID [facility] Last Admin: 12/29/21 10:19 Dose: 2 puff Documented by: Hydroxyzine HCl (Hydroxyzine Hcl 25 Mg Tablet) 25 mg PO Q4H PRN PRN Reason: Anxiety/Agitation Lactulose (Lactulose 20 Gm/30 Ml Solution) 10 gm PO DAILY PRN PRN Reason: Constipation Lisinopril (Lisinopril 10 Mg Tablet) 10 mg PO DAILY@1800 [facility]; Protocol Last Admin: 12/28/21 18:21 Dose: 10 mg Documented by: Magnesium Hydroxide (Milk Of Magnesia 30 Ml Oral.Susp) 30 ml PO DAILY PRN PRN Reason: Constipation Montelukast Sodium (Montelukast Sodium 10 Mg Tablet) 10 mg PO DAILY [facility] Last Admin: 12/29/21 10:18 Dose: 10 mg Documented by: Omeprazole (Omeprazole 20 Mg Capsule.Dr) 20 mg PO BID@0630,1630 [facility] Last Admin: 12/29/21 05:35 Dose: 20 mg Documented by: Polyethylene Glycol (Polyethylene Glycol 3350 17 Gm Powd.Pack) 17 gm PO TID [facility] Last Admin: 12/29/21 10:19 Dose: 17 gm Documented by: Senna (Sennosides 8.6 Mg Tablet) 17.2 mg PO BEDTIME [facility] Last Admin: 12/28/21 20:51 Dose: 17.2 mg Documented by: Tramadol HCl (Tramadol Hcl 50 Mg Tablet) 50 mg PO Q6H [facility] Last Admin: 12/29/21 10:28 Dose: 50 mg Documented by: Trolamine Salicylate/Aloe Vera (Trolamine Salicylate 10%/Aloe Cream 35.4 Gm) 1 appl TOPICAL BEDTIME LAXMI Trolamine Salicylate/Aloe Vera (Trolamine Salicylate 10%/Aloe Cream 35.4 Gm) 1 appl TOPICAL QID PRN PRN Reason: knee pain Allergies Allergies Allergy/AdvReac Type Severity Reaction Status Date / Time diazepam [From Valium] Allergy Unknown Unknown Verified 08/10/21 20:04 haloperidol [From Haldol] Allergy Unknown Unknown Verified 08/10/21 20:04 Penicillins Allergy Unknown Unknown Verified 08/10/21 20:04 risperidone [From Risperdal] Allergy Unknown Unknown Verified 08/10/21 20:04 aspirin [Aspirin] AdvReac Intermediate Vomiting Verified 08/10/21 20:04 trazodone [TRAZODONE] AdvReac Intermediate NAUSEA & Verified 08/10/21 20:04 VOMITING Assessment & Plan Assessment & Plan (1) Schizophrenia: Status: Acute Code(s): F20.9 - Schizophrenia, unspecified Plan continue home medications. do not change psych regimen as per collateral from outpt provider that has not tended to help; pt will likely spontaneously improve within one week. added aspercreme for knee pain B/L per pt request. increased colace from 100 mg PO BID to 200 mg PO BID per pt request. monitor Sx, discharge once improved. I spent ____20__ minutes with the patient and/or on the patient floor today, greater than?50% of which was spent counseling/coordinating care. Reason for contiued inpatient stay Substantial Risk for: inability to function and rapid decompensation
[2021-12-29] MEDS: lisinopriL 10 MG TABLET PO (18:08)
[2021-12-29 19:53] VITALS: BP 116/65; PULSE 101; RESP 18; TEMP 36.6; O2SAT 95
[2021-12-29] MEDS: Sennosides 8.6 MG TABLET 17.2 MG PO (22:23)
[2021-12-29] MEDS: cloZAPine 100 MG TABLET 300 MG PO (22:24)
[2021-12-29] MEDS: Divalproex Sodium ER 500 MG TAB.ER.24H 1500 MG PO (22:25)
[2021-12-29] MEDS: bisacodyL 5 MG TABLET.DR 10 MG PO (22:26)
[2021-12-30] MEDS: Omeprazole 20 MG CAPSULE.DR PO ×2 (06:32→17:43)
[2021-12-30 08:46] VITALS: BP 108/67; PULSE 103; RESP 16; TEMP 36.3; O2SAT 95
[2021-12-30] MEDS: Docusate Sodium 100 MG CAPSULE 200 MG PO ×2 (10:26→22:03)
[2021-12-30] MEDS: cloZAPine 25 MG TABLET 50 MG PO (10:26)
[2021-12-30] MEDS: traMADoL HCL 50 MG TABLET PO (10:29)
[2021-12-30] MEDS: Montelukast Sodium 10 MG TABLET PO (10:29)
[2021-12-30] MEDS: FLUoxetine HCl 20 MG CAPSULE PO (10:32)
[2021-12-30] MEDS: polyethylene glycoL 3350 17 GM POWD.PACK PO (10:35)
--- NOTE | 2021-12-30 13:45 | HO.PSYCHPN ---
Subjective Subjective Date of Service: 12/30/21 Reason For Visit: SI Interim History: pt wearing different clothes today, up and about the unit, doing laundry. appears with brighter affect. on interview says as much to MD, but continues to hear CAH and see snakes in the shower (she showered as well). talking about discharge on sunday. mood so-so. i wanna feel better. reports she is attending art group. per staff, isolative, withdrawn yesterday. seeing snakes in shower. CAH to harm self. slept most of the NOC. no intent or plan to harm self. asking for tap water enema. Mental Status Exam Mental Status Exam Narrative: A&O. Overweight, in casual attire, up and about on the unit. No abnormal involuntary movements. Calm, not guarded. Non-pressured speech, spontaneous with regular rate and rhythm, normal volume and prosody. No prolonged speech latency or dysarthria. Mood is so-so. i wanna feel better, affect is more flexible than prior. CAH and AVH continue, no intent or plan to harm self. Thoughts are concrete, linear. No known cognitive or memory impairment. Diagnostics Vital Signs (24Hr): Vital Signs - 24 hr 12/29/21 19:53 12/30/21 08:46 Temperature 97.8 F 97.4 F Pulse Rate 101 H 103 H Respiratory Rate 18 16 Blood Pressure 116/65 108/67 Pulse Oximetry 95 95 BMI result Body Mass Index 36.3 Labs Results: 12/24/21 17:58 12/24/21 17:58 Labs: Laboratory Results - last 48 hr 12/24/21 17:58 Clozapine 708 Norclozapine 163 Medications Medications Current Medications Acetaminophen (Acetaminophen 325 Mg Tablet) 650 mg PO Q6H PRN PRN Reason: Headache/Pain Mild Scale (1-3) Al Hydroxide/Mg Hydroxide (Magnesium Hydrox/Alum Hydrox 30 Ml Oral.Susp) 30 ml PO Q6H PRN PRN Reason: Heartburn/Nausea Albuterol Sulfate (Albuterol Sulfate 90 Mcg 8 Gm Inhaler) 2 puff INHALE Q4H PRN PRN Reason: Wheezing Bisacodyl (Bisacodyl 5 Mg Tablet.) 10 mg PO BEDTIME [facility] Last Admin: 12/29/21 22:26 Dose: 10 mg Documented by: Clozapine (Clozapine 25 Mg Tablet) 50 mg PO DAILY [facility] Last Admin: 12/30/21 10:26 Dose: 50 mg Documented by: Clozapine (Clozapine 100 Mg Tablet) 300 mg PO BEDTIME [facility] Last Admin: 12/29/21 22:24 Dose: 300 mg Documented by: Divalproex Sodium (Divalproex Sodium Er 500 Mg Tab.Er.24h) 1,500 mg PO BEDTIME [facility] Last Admin: 12/29/21 22:25 Dose: 1,500 mg Documented by: Docusate Sodium (Docusate Sodium 100 Mg Capsule) 200 mg PO BID [facility] Last Admin: 12/30/21 10:26 Dose: 200 mg Documented by: Fluoxetine HCl (Fluoxetine Hcl 20 Mg Capsule) 20 mg PO DAILY [facility] Last Admin: 12/30/21 10:32 Dose: 20 mg Documented by: Fluticasone Propionate (Fluticasone Propionate 100 Mcg Blst.W.Dev) 2 puff INHALE RBID [facility] Last Admin: 12/30/21 10:34 Dose: Not Given Documented by: Hydroxyzine HCl (Hydroxyzine Hcl 25 Mg Tablet) 25 mg PO Q4H PRN PRN Reason: Anxiety/Agitation Lactulose (Lactulose 20 Gm/30 Ml Solution) 10 gm PO DAILY PRN PRN Reason: Constipation Lisinopril (Lisinopril 10 Mg Tablet) 10 mg PO DAILY@1800 [facility]; Protocol Last Admin: 12/29/21 18:08 Dose: 10 mg Documented by: Magnesium Hydroxide (Milk Of Magnesia 30 Ml Oral.Susp) 30 ml PO DAILY PRN PRN Reason: Constipation Montelukast Sodium (Montelukast Sodium 10 Mg Tablet) 10 mg PO DAILY [facility] Last Admin: 12/30/21 10:29 Dose: 10 mg Documented by: Omeprazole (Omeprazole 20 Mg Capsule.Dr) 20 mg PO BID@0630,1630 [facility] Last Admin: 12/30/21 06:32 Dose: 20 mg Documented by: Polyethylene Glycol (Polyethylene Glycol 3350 17 Gm Powd.Pack) 17 gm PO TID [facility] Last Admin: 12/30/21 10:35 Dose: 17 gm Documented by: Senna (Sennosides 8.6 Mg Tablet) 17.2 mg PO BEDTIME [facility] Last Admin: 12/29/21 22:23 Dose: 17.2 mg Documented by: Tramadol HCl (Tramadol Hcl 50 Mg Tablet) 50 mg PO Q6H PRN PRN Reason: mod-severe Last Admin: 12/30/21 10:29 Dose: 50 mg Documented by: Trolamine Salicylate/Aloe Vera (Trolamine Salicylate 10%/Aloe Cream 35.4 Gm) 1 appl TOPICAL BEDTIME [facility] Last Admin: 12/29/21 22:25 Dose: 1 appl Documented by: Trolamine Salicylate/Aloe Vera (Trolamine Salicylate 10%/Aloe Cream 35.4 Gm) 1 appl TOPICAL QID PRN PRN Reason: knee pain Last Admin: 12/29/21 22:19 Dose: 1 appl Documented by: Allergies Allergies Allergy/AdvReac Type Severity Reaction Status Date / Time diazepam [From Valium] Allergy Unknown Unknown Verified 08/10/21 20:04 haloperidol [From Haldol] Allergy Unknown Unknown Verified 08/10/21 20:04 Penicillins Allergy Unknown Unknown Verified 08/10/21 20:04 risperidone [From Risperdal] Allergy Unknown Unknown Verified 08/10/21 20:04 aspirin [Aspirin] AdvReac Intermediate Vomiting Verified 08/10/21 20:04 trazodone [TRAZODONE] AdvReac Intermediate NAUSEA & Verified 08/10/21 20:04 VOMITING Assessment & Plan Assessment & Plan (1) Schizophrenia: Status: Acute Code(s): F20.9 - Schizophrenia, unspecified Plan continue home medications. do not change psych regimen as per collateral from outpt provider that has not tended to help; pt will likely spontaneously improve within one week. added aspercreme for knee pain B/L per pt request. increased colace from 100 mg PO BID to 200 mg PO BID per pt request. large volume tap water enema daily PRN constipation added 12/30, per GI rec from pervious hospitalization. improving Sx, discharge planned for next sunday. I spent __25____ minutes with the patient and/or on the patient floor today, greater than?50% of which was spent counseling/coordinating care. Reason for contiued inpatient stay Substantial Risk for: inability to function and rapid decompensation
[2021-12-30] MEDS: lisinopriL 10 MG TABLET PO (17:44)
[2021-12-30 21:55] VITALS: BP 124/58; PULSE 101; RESP 16; TEMP 36.1; O2SAT 96
[2021-12-30] MEDS: cloZAPine 100 MG TABLET 300 MG PO (22:02)
[2021-12-30] MEDS: bisacodyL 5 MG TABLET.DR 10 MG PO (22:03)
[2021-12-30] MEDS: Sennosides 8.6 MG TABLET 17.2 MG PO (22:03)
[2021-12-30] MEDS: Divalproex Sodium ER 500 MG TAB.ER.24H 1500 MG PO (22:03)
[2021-12-30] MEDS: Fluticasone Propionate 100 MCG BLST.W.DEV 2 PUFF INHALE (22:06)
[2021-12-31] MEDS: hydrOXYzine HCL 25 MG TABLET PO (00:46)
[2021-12-31 08:51] LABS: Neut%MD 45.2 %; Neutrophils Absolute Auto 3.9 x10*3/uL (2.0-8.3); WBCANC 8.6 X10*3/uL
[2021-12-31] MEDS: Docusate Sodium 100 MG CAPSULE 200 MG PO ×2 (10:24→22:02)
[2021-12-31] MEDS: FLUoxetine HCl 20 MG CAPSULE PO (10:25)
[2021-12-31] MEDS: Montelukast Sodium 10 MG TABLET PO (10:25)
[2021-12-31] MEDS: Fluticasone Propionate 100 MCG BLST.W.DEV 2 PUFF INHALE ×2 (10:25→22:04)
[2021-12-31] MEDS: cloZAPine 25 MG TABLET 50 MG PO (10:25)
[2021-12-31] MEDS: Omeprazole 20 MG CAPSULE.DR PO ×2 (10:26→17:55)
[2021-12-31 10:40] VITALS: BP 117/58; PULSE 90; RESP 18; TEMP 36.1; O2SAT 96
--- NOTE | 2021-12-31 15:40 | HO.PSYCHPN ---
Subjective Subjective Date of Service: 12/31/21 Reason For Visit: SI Interim History: pt found sleeping heavily in her room. rousable to loud voice, but somnolent and repeatedly falling back asleep. pt did manage to indicate her mood continues to be better and she is having poco AH. per staff, c/o nightmares 2 nights prior. apologized to roommate for being up and down most of the night. Mental Status Exam Mental Status Exam Narrative: A&O. Overweight, in casual attire, lying down in bed asleep. somnolent. poor eye contact, attentive. No abnormal involuntary movements. Calm. minimal speech. Mood is ?better,? affect is flat. no SI/SIB/HI expressed. Endorses command AH to harm herself, now poco. no delusional thought content evident. Thoughts are concrete, linear. No known cognitive or memory impairment. Diagnostics Vital Signs (24Hr): Vital Signs - 24 hr 12/30/21 21:55 12/31/21 10:40 Temperature 96.9 F 96.9 F Pulse Rate 101 H 90 Respiratory Rate 16 18 Blood Pressure 124/58 L 117/58 L Pulse Oximetry 96 96 BMI result Body Mass Index 36.3 Labs Results: 12/24/21 17:58 12/24/21 17:58 Labs: Laboratory Results - last 48 hr 12/31/21 08:44 Absolute Neuts (auto) 3.9 Medications Medications Current Medications Acetaminophen (Acetaminophen 325 Mg Tablet) 650 mg PO Q6H PRN PRN Reason: Headache/Pain Mild Scale (1-3) Al Hydroxide/Mg Hydroxide (Magnesium Hydrox/Alum Hydrox 30 Ml Oral.Susp) 30 ml PO Q6H PRN PRN Reason: Heartburn/Nausea Albuterol Sulfate (Albuterol Sulfate 90 Mcg 8 Gm Inhaler) 2 puff INHALE Q4H PRN PRN Reason: Wheezing Bisacodyl (Bisacodyl 5 Mg Tablet.) 10 mg PO BEDTIME [facility] Last Admin: 12/30/21 22:03 Dose: 10 mg Documented by: Clozapine (Clozapine 25 Mg Tablet) 50 mg PO DAILY [facility] Last Admin: 12/31/21 10:25 Dose: 50 mg Documented by: Clozapine (Clozapine 100 Mg Tablet) 300 mg PO BEDTIME [facility] Last Admin: 12/30/21 22:02 Dose: 300 mg Documented by: Divalproex Sodium (Divalproex Sodium Er 500 Mg Tab.Er.24h) 1,500 mg PO BEDTIME [facility] Last Admin: 12/30/21 22:03 Dose: 1,500 mg Documented by: Docusate Sodium (Docusate Sodium 100 Mg Capsule) 200 mg PO BID [facility] Last Admin: 12/31/21 10:24 Dose: 200 mg Documented by: Fluoxetine HCl (Fluoxetine Hcl 20 Mg Capsule) 20 mg PO DAILY [facility] Last Admin: 12/31/21 10:25 Dose: 20 mg Documented by: Fluticasone Propionate (Fluticasone Propionate 100 Mcg Blst.W.Dev) 2 puff INHALE RBID [facility] Last Admin: 12/31/21 10:25 Dose: 2 puff Documented by: Hydroxyzine HCl (Hydroxyzine Hcl 25 Mg Tablet) 25 mg PO Q4H PRN PRN Reason: Anxiety/Agitation Last Admin: 12/31/21 00:46 Dose: 25 mg Documented by: Lactulose (Lactulose 20 Gm/30 Ml Solution) 10 gm PO DAILY PRN PRN Reason: Constipation Lisinopril (Lisinopril 10 Mg Tablet) 10 mg PO DAILY@1800 [facility]; Protocol Last Admin: 12/30/21 17:44 Dose: 10 mg Documented by: Magnesium Hydroxide (Milk Of Magnesia 30 Ml Oral.Susp) 30 ml PO DAILY PRN PRN Reason: Constipation Montelukast Sodium (Montelukast Sodium 10 Mg Tablet) 10 mg PO DAILY [facility] Last Admin: 12/31/21 10:25 Dose: 10 mg Documented by: Omeprazole (Omeprazole 20 Mg Capsule.Dr) 20 mg PO BID@0630,1630 [facility] Last Admin: 12/31/21 10:26 Dose: 20 mg Documented by: Polyethylene Glycol (Polyethylene Glycol 3350 17 Gm Powd.Pack) 17 gm PO TID [facility] Last Admin: 12/31/21 15:17 Dose: Not Given Documented by: Senna (Sennosides 8.6 Mg Tablet) 17.2 mg PO BEDTIME [facility] Last Admin: 12/30/21 22:03 Dose: 17.2 mg Documented by: Tramadol HCl (Tramadol Hcl 50 Mg Tablet) 50 mg PO Q6H PRN PRN Reason: mod-severe Last Admin: 12/30/21 10:29 Dose: 50 mg Documented by: Trolamine Salicylate/Aloe Vera (Trolamine Salicylate 10%/Aloe Cream 35.4 Gm) 1 appl TOPICAL BEDTIME [facility] Last Admin: 12/30/21 22:05 Dose: 1 appl Documented by: Trolamine Salicylate/Aloe Vera (Trolamine Salicylate 10%/Aloe Cream 35.4 Gm) 1 appl TOPICAL QID PRN PRN Reason: knee pain Last Admin: 12/29/21 22:19 Dose: 1 appl Documented by: Allergies Allergies Allergy/AdvReac Type Severity Reaction Status Date / Time diazepam [From Valium] Allergy Unknown Unknown Verified 08/10/21 20:04 haloperidol [From Haldol] Allergy Unknown Unknown Verified 08/10/21 20:04 Penicillins Allergy Unknown Unknown Verified 08/10/21 20:04 risperidone [From Risperdal] Allergy Unknown Unknown Verified 08/10/21 20:04 aspirin [Aspirin] AdvReac Intermediate Vomiting Verified 08/10/21 20:04 trazodone [TRAZODONE] AdvReac Intermediate NAUSEA & Verified 08/10/21 20:04 VOMITING Assessment & Plan Assessment & Plan (1) Schizophrenia: Status: Acute Code(s): F20.9 - Schizophrenia, unspecified Plan continue home medications. do not change psych regimen as per collateral from outpt provider that has not tended to help; pt will likely spontaneously improve within one week. added aspercreme for knee pain B/L per pt request. increased colace from 100 mg PO BID to 200 mg PO BID per pt request. large volume tap water enema daily PRN constipation added 12/30, per GI rec from pervious hospitalization. improving Sx, discharge planned for next sunday. I spent ___15___ minutes with the patient and/or on the patient floor today, greater than?50% of which was spent counseling/coordinating care. Reason for contiued inpatient stay Substantial Risk for: harm to self, inability to function and rapid decompensation
[2021-12-31 17:53] VITALS: BP 102/57; PULSE 90; RESP 18; TEMP 36.8; O2SAT 96
[2021-12-31] MEDS: lisinopriL 10 MG TABLET PO (17:55)
[2021-12-31 21:56] VITALS: BP 93/57; PULSE 105; RESP 18; TEMP 36.3; O2SAT 96
[2021-12-31] MEDS: Sennosides 8.6 MG TABLET 17.2 MG PO (22:02)
[2021-12-31] MEDS: bisacodyL 5 MG TABLET.DR 10 MG PO (22:02)
[2021-12-31] MEDS: cloZAPine 100 MG TABLET 300 MG PO (22:03)
[2021-12-31] MEDS: Divalproex Sodium ER 500 MG TAB.ER.24H 1500 MG PO (22:03)
[2021-12-31] MEDS: traMADoL HCL 50 MG TABLET PO (22:10)
[2022-01-01 06:00] VITALS: BP 93/54; PULSE 98; RESP 16; TEMP 36.3; O2SAT 98
[2022-01-01] MEDS: Docusate Sodium 100 MG CAPSULE 200 MG PO ×2 (09:32→22:04)
[2022-01-01] MEDS: FLUoxetine HCl 20 MG CAPSULE PO (09:32)
[2022-01-01] MEDS: Omeprazole 20 MG CAPSULE.DR PO ×2 (09:32→17:19)
[2022-01-01] MEDS: Montelukast Sodium 10 MG TABLET PO (09:32)
[2022-01-01] MEDS: Fluticasone Propionate 100 MCG BLST.W.DEV 2 PUFF INHALE ×2 (09:32→22:07)
[2022-01-01] MEDS: cloZAPine 25 MG TABLET 50 MG PO (09:32)
--- NOTE | 2022-01-01 14:09 | HO.PSYCHPN ---
Subjective Subjective Date of Service: 01/01/22 Reason For Visit: SI Interim History: pt found resting in her bed in her room, awake. reports feeling good. CAH better. slept OK. no complaints or requests, other than asking if she will be discharged on sunday and then asking about who will pick her up and at what time on sunday. she was asked to wait until tomorrow when SW is in to address these issues. per staff, slept much of the day yesterday during both days and eves shifts. anx/dep 8/10, mood so-so. slept all NOC. Mental Status Exam Mental Status Exam Narrative: A&O. Overweight, in casual attire, lying down in bed awake. good eye contact, attentive. No abnormal involuntary movements. Calm. sparse speech. Mood is ?good,? affect is flat. no SI/SIB/HI expressed. says CAH are better. no delusional thought content evident. Thoughts are concrete, linear. No known cognitive or memory impairment. Diagnostics Vital Signs (24Hr): Vital Signs - 24 hr 12/31/21 17:53 12/31/21 21:56 01/01/22 06:00 Temperature 98.2 F 97.4 F 97.3 F Pulse Rate 90 105 H 98 Respiratory Rate 18 18 16 Blood Pressure 102/57 L 93/57 L 93/54 L Pulse Oximetry 96 96 98 BMI result Body Mass Index 36.3 Labs Results: 12/24/21 17:58 12/24/21 17:58 Labs: Laboratory Results - last 48 hr 12/31/21 08:44 Absolute Neuts (auto) 3.9 Medications Medications Current Medications Acetaminophen (Acetaminophen 325 Mg Tablet) 650 mg PO Q6H PRN PRN Reason: Headache/Pain Mild Scale (1-3) Al Hydroxide/Mg Hydroxide (Magnesium Hydrox/Alum Hydrox 30 Ml Oral.Susp) 30 ml PO Q6H PRN PRN Reason: Heartburn/Nausea Albuterol Sulfate (Albuterol Sulfate 90 Mcg 8 Gm Inhaler) 2 puff INHALE Q4H PRN PRN Reason: Wheezing Bisacodyl (Bisacodyl 5 Mg Tablet.) 10 mg PO BEDTIME [facility] Last Admin: 12/31/21 22:02 Dose: 10 mg Documented by: Clozapine (Clozapine 25 Mg Tablet) 50 mg PO DAILY [facility] Last Admin: 01/01/22 09:32 Dose: 50 mg Documented by: Clozapine (Clozapine 100 Mg Tablet) 300 mg PO BEDTIME [facility] Last Admin: 12/31/21 22:03 Dose: 300 mg Documented by: Divalproex Sodium (Divalproex Sodium Er 500 Mg Tab.Er.24h) 1,500 mg PO BEDTIME [facility] Last Admin: 12/31/21 22:03 Dose: 1,500 mg Documented by: Docusate Sodium (Docusate Sodium 100 Mg Capsule) 200 mg PO BID [facility] Last Admin: 01/01/22 09:32 Dose: 200 mg Documented by: Fluoxetine HCl (Fluoxetine Hcl 20 Mg Capsule) 20 mg PO DAILY [facility] Last Admin: 01/01/22 09:32 Dose: 20 mg Documented by: Fluticasone Propionate (Fluticasone Propionate 100 Mcg Blst.W.Dev) 2 puff INHALE RBID [facility] Last Admin: 01/01/22 09:32 Dose: 2 puff Documented by: Hydroxyzine HCl (Hydroxyzine Hcl 25 Mg Tablet) 25 mg PO Q4H PRN PRN Reason: Anxiety/Agitation Last Admin: 12/31/21 00:46 Dose: 25 mg Documented by: Lactulose (Lactulose 20 Gm/30 Ml Solution) 10 gm PO DAILY PRN PRN Reason: Constipation Lisinopril (Lisinopril 10 Mg Tablet) 10 mg PO DAILY@1800 [facility]; Protocol Last Admin: 12/31/21 17:55 Dose: 10 mg Documented by: Magnesium Hydroxide (Milk Of Magnesia 30 Ml Oral.Susp) 30 ml PO DAILY PRN PRN Reason: Constipation Montelukast Sodium (Montelukast Sodium 10 Mg Tablet) 10 mg PO DAILY [facility] Last Admin: 01/01/22 09:32 Dose: 10 mg Documented by: Omeprazole (Omeprazole 20 Mg Capsule.Dr) 20 mg PO BID@0630,1630 [facility] Last Admin: 01/01/22 09:32 Dose: 20 mg Documented by: Polyethylene Glycol (Polyethylene Glycol 3350 17 Gm Powd.Pack) 17 gm PO TID [facility] Last Admin: 01/01/22 09:36 Dose: Not Given Documented by: Senna (Sennosides 8.6 Mg Tablet) 17.2 mg PO BEDTIME [facility] Last Admin: 12/31/21 22:02 Dose: 17.2 mg Documented by: Tramadol HCl (Tramadol Hcl 50 Mg Tablet) 50 mg PO Q6H PRN PRN Reason: mod-severe Last Admin: 12/31/21 22:10 Dose: 50 mg Documented by: Trolamine Salicylate/Aloe Vera (Trolamine Salicylate 10%/Aloe Cream 35.4 Gm) 1 appl TOPICAL BEDTIME [facility] Last Admin: 12/31/21 22:05 Dose: 1 appl Documented by: Trolamine Salicylate/Aloe Vera (Trolamine Salicylate 10%/Aloe Cream 35.4 Gm) 1 appl TOPICAL QID PRN PRN Reason: knee pain Last Admin: 12/29/21 22:19 Dose: 1 appl Documented by: Allergies Allergies Allergy/AdvReac Type Severity Reaction Status Date / Time diazepam [From Valium] Allergy Unknown Unknown Verified 08/10/21 20:04 haloperidol [From Haldol] Allergy Unknown Unknown Verified 08/10/21 20:04 Penicillins Allergy Unknown Unknown Verified 08/10/21 20:04 risperidone [From Risperdal] Allergy Unknown Unknown Verified 08/10/21 20:04 aspirin [Aspirin] AdvReac Intermediate Vomiting Verified 08/10/21 20:04 trazodone [TRAZODONE] AdvReac Intermediate NAUSEA & Verified 08/10/21 20:04 VOMITING Assessment & Plan Assessment & Plan (1) Schizophrenia: Status: Acute Code(s): F20.9 - Schizophrenia, unspecified Plan continue home medications. do not change psych regimen as per collateral from outpt provider that has not tended to help; pt will likely spontaneously improve within one week. added aspercreme for knee pain B/L per pt request. increased colace from 100 mg PO BID to 200 mg PO BID per pt request. large volume tap water enema daily PRN constipation added 12/30, per GI rec from pervious hospitalization. improving Sx, discharge planned for next sunday. I spent ___15___ minutes with the patient and/or on the patient floor today, greater than?50% of which was spent counseling/coordinating care. Reason for contiued inpatient stay Substantial Risk for: harm to self, inability to function and rapid decompensation
[2022-01-01] MEDS: lisinopriL 10 MG TABLET PO (17:19)
[2022-01-01 20:39] VITALS: BP 118/57; PULSE 106; RESP 18; TEMP 36.2; O2SAT 98
[2022-01-01] MEDS: Sennosides 8.6 MG TABLET 17.2 MG PO (22:03)
[2022-01-01] MEDS: Divalproex Sodium ER 500 MG TAB.ER.24H 1500 MG PO (22:04)
[2022-01-01] MEDS: bisacodyL 5 MG TABLET.DR 10 MG PO (22:05)
[2022-01-01] MEDS: cloZAPine 100 MG TABLET 300 MG PO (22:05)
[2022-01-02] MEDS: Omeprazole 20 MG CAPSULE.DR PO ×2 (04:38→17:05)
[2022-01-02] MEDS: hydrOXYzine HCL 25 MG TABLET PO (04:40)
[2022-01-02 09:28] VITALS: BP 115/56; PULSE 93; RESP 17; TEMP 36.1; O2SAT 95
[2022-01-02] MEDS: Fluticasone Propionate 100 MCG BLST.W.DEV 2 PUFF INHALE ×2 (09:28→22:08)
[2022-01-02] MEDS: Montelukast Sodium 10 MG TABLET PO (09:29)
[2022-01-02] MEDS: FLUoxetine HCl 20 MG CAPSULE PO (09:29)
[2022-01-02] MEDS: cloZAPine 25 MG TABLET 50 MG PO (09:29)
[2022-01-02] MEDS: Docusate Sodium 100 MG CAPSULE 200 MG PO ×2 (09:29→22:05)
--- NOTE | 2022-01-02 11:08 | P.PNPSI_ITS ---
Subjective Subjective Date of Service: 01/02/22 Reason For Visit: SI Subjective Notes: Conditional Voluntary Interim History: Pt reports she is doing well. She reports sleeping and eating well. She has been visible in the unit, social with select peers. She reports less AH. She denies SI/HI. No signs of aggression towards self or others. No constipation, last BM yesterday. Medication Compliance: Yes Side effects from medications: No Review of Systems Constitutional: Denies body ache(s), Denies chills, Denies fatigue, Denies fever(s), Denies headache(s), Denies malaise and Denies weakness Eyes: Denies diplopia Reports Normal hearing present, Denies vertigo, Denies dizziness, Denies otalgia, Denies headache(s), Denies mouth pain, Denies post nasal drip, Denies sinus pain, Denies sinus pressure, Denies sore throat and Denies throat swelling Cardiovascular: Denies chest pain, Denies syncope, Denies leg edema, Denies lightheadedness, Denies Loss of Consciousness, Denies palpitations and Denies dy spnea Respiratory: Denies chest congestion, Denies cough and Denies dyspnea Gastrointestinal: Denies abdominal pain, Denies hematochezia, Denies constip ation, Denies diarrhea and Denies vomiting Musculoskeletal: Reports arthralgias (Chronic bilateral knee pain, OA) Reports Normal hearing present, Denies Abnormal speech present, Denies confusion, Denies vertigo, Denies dizziness, Denies syncope, Denies headache(s), Denies Sensory deficit (Neuro) and Denies weakness Psychiatric: Denies anxiety, Denies confusion and Denies depression Endocrine: Denies fatigue and Denies palpitations Allergic/Immunologic: Denies throat swelling Mental Status Exam Mental Status Exam Narrative: A&O. Overweight, in casual attire, lying down in bed awake. good eye contact, attentive. No abnormal involuntary movements. Calm. sparse speech. Mood is ?good,? affect is flat. no SI/SIB/HI expressed. says CAH are better. no delusional thought content evident. Thoughts are concrete, linear. No known cognitive or memory impairment. Diagnostics Vital Signs (24Hr): Vital Signs - 24 hr 01/01/22 20:39 01/02/22 09:28 Temperature 97.2 F 97.0 F Pulse Rate 106 H 93 Respiratory Rate 18 17 Blood Pressure 118/57 L 115/56 L Pulse Oximetry 98 95 BMI result Body Mass Index 36.3 Labs Results: 12/24/21 17:58 12/24/21 17:58 Medications Medications Current Medications Acetaminophen (Acetaminophen 325 Mg Tablet) 650 mg PO Q6H PRN PRN Reason: Headache/Pain Mild Scale (1-3) Al Hydroxide/Mg Hydroxide (Magnesium Hydrox/Alum Hydrox 30 Ml Oral.Susp) 30 ml PO Q6H PRN PRN Reason: Heartburn/Nausea Albuterol Sulfate (Albuterol Sulfate 90 Mcg 8 Gm Inhaler) 2 puff INHALE Q4H PRN PRN Reason: Wheezing Bisacodyl (Bisacodyl 5 Mg Tablet.Dr) 10 mg PO BEDTIME [facility] Last Admin: 01/01/22 22:05 Dose: 10 mg Documented by: Clonazepam (Clonazepam 1 Mg Tablet) 1 mg PO BEDTIME [facility] Clozapine (Clozapine 25 Mg Tablet) 50 mg PO DAILY [facility] Last Admin: 01/02/22 09:29 Dose: 50 mg Documented by: Clozapine (Clozapine 100 Mg Tablet) 300 mg PO BEDTIME [facility] Last Admin: 01/01/22 22:05 Dose: 300 mg Documented by: Divalproex Sodium (Divalproex Sodium Er 500 Mg Tab.Er.24h) 1,500 mg PO BEDTIME [facility] Last Admin: 01/01/22 22:04 Dose: 1,500 mg Documented by: Docusate Sodium (Docusate Sodium 100 Mg Capsule) 200 mg PO BID [facility] Last Admin: 01/02/22 09:29 Dose: 200 mg Documented by: Fluoxetine HCl (Fluoxetine Hcl 20 Mg Capsule) 20 mg PO DAILY [facility] Last Admin: 01/02/22 09:29 Dose: 20 mg Documented by: Fluticasone Propionate (Fluticasone Propionate 100 Mcg Blst.W.Dev) 2 puff INHALE RBID [facility] Last Admin: 01/02/22 09:28 Dose: 2 puff Documented by: Hydroxyzine HCl (Hydroxyzine Hcl 25 Mg Tablet) 25 mg PO Q4H PRN PRN Reason: Anxiety/Agitation Last Admin: 01/02/22 04:40 Dose: 25 mg Documented by: Lactulose (Lactulose 20 Gm/30 Ml Solution) 10 gm PO DAILY PRN PRN Reason: Constipation Lisinopril (Lisinopril 10 Mg Tablet) 10 mg PO DAILY@1800 [facility]; Protocol Last Admin: 01/01/22 17:19 Dose: 10 mg Documented by: Magnesium Hydroxide (Milk Of Magnesia 30 Ml Oral.Susp) 30 ml PO DAILY PRN PRN Reason: Constipation Montelukast Sodium (Montelukast Sodium 10 Mg Tablet) 10 mg PO DAILY [facility] Last Admin: 01/02/22 09:29 Dose: 10 mg Documented by: Omeprazole (Omeprazole 20 Mg Capsule.) 20 mg PO BID@0630,1630 [facility] Last Admin: 01/02/22 04:38 Dose: 20 mg Documented by: Polyethylene Glycol (Polyethylene Glycol 3350 17 Gm Powd.Pack) 17 gm PO TID [facility] Last Admin: 01/02/22 09:29 Dose: Not Given Documented by: Senna (Sennosides 8.6 Mg Tablet) 17.2 mg PO BEDTIME [facility] Last Admin: 01/01/22 22:03 Dose: 17.2 mg Documented by: Tramadol HCl (Tramadol Hcl 50 Mg Tablet) 50 mg PO Q6H PRN PRN Reason: mod-severe Last Admin: 12/31/21 22:10 Dose: 50 mg Documented by: Trolamine Salicylate/Aloe Vera (Trolamine Salicylate 10%/Aloe Cream 35.4 Gm) 1 appl TOPICAL BEDTIME [facility] Last Admin: 01/01/22 22:13 Dose: 1 appl Documented by: Trolamine Salicylate/Aloe Vera (Trolamine Salicylate 10%/Aloe Cream 35.4 Gm) 1 appl TOPICAL QID PRN PRN Reason: knee pain Last Admin: 12/29/21 22:19 Dose: 1 appl Documented by: Allergies Allergies Allergy/AdvReac Type Severity Reaction Status Date / Time diazepam [From Valium] Allergy Unknown Unknown Verified 08/10/21 20:04 haloperidol [From Haldol] Allergy Unknown Unknown Verified 08/10/21 20:04 Penicillins Allergy Unknown Unknown Verified 08/10/21 20:04 risperidone [From Risperdal] Allergy Unknown Unknown Verified 08/10/21 20:04 aspirin [Aspirin] AdvReac Intermediate Vomiting Verified 08/10/21 20:04 trazodone [TRAZODONE] AdvReac Intermediate NAUSEA & Verified 08/10/21 20:04 VOMITING Assessment & Plan Assessment & Plan (1) Schizophrenia: Status: Acute Code(s): F20.9 - Schizophrenia, unspecified Plan continue home medications. do not change psych regimen as per collateral from outpt provider that has not tended to help; pt will likely spontaneously improve within one week. added aspercreme for knee pain B/L per pt request. increased colace from 100 mg PO BID to 200 mg PO BID per pt request. large volume tap water enema daily PRN constipation added 12/30, per GI rec from pervious hospitalization. improving Sx, discharge planned for next sunday. 01/02- continue current medications, d/c 01/03. I spent _25 minutes with the patient and/or on the patient floor today, greater than?50% of which was spent counseling/coordinating care. Reason for contiued inpatient stay Substantial Risk for: inability to function
[2022-01-02 17:03] VITALS: BP 121/68; PULSE 101
[2022-01-02] MEDS: lisinopriL 10 MG TABLET PO (17:04)
[2022-01-02 20:04] VITALS: BP 130/62; PULSE 98; RESP 18; TEMP 36.2; O2SAT 97
[2022-01-02] MEDS: Sennosides 8.6 MG TABLET 17.2 MG PO (22:04)
[2022-01-02] MEDS: Divalproex Sodium ER 500 MG TAB.ER.24H 1500 MG PO (22:05)
[2022-01-02] MEDS: cloZAPine 100 MG TABLET 300 MG PO (22:06)
[2022-01-02] MEDS: traMADoL HCL 50 MG TABLET PO (22:07)
[2022-01-02] MEDS: bisacodyL 5 MG TABLET.DR 10 MG PO (22:07)
[2022-01-02] MEDS: clonazePAM 1 MG TABLET PO (22:09)
[2022-01-03] MEDS: hydrOXYzine HCL 25 MG TABLET PO (00:41)
[2022-01-03 09:30] VITALS: BP 118/74; PULSE 68; RESP 18; TEMP 37.1; O2SAT 97
[2022-01-03] MEDS: Omeprazole 20 MG CAPSULE.DR PO (09:51)
[2022-01-03] MEDS: cloZAPine 25 MG TABLET 50 MG PO (09:51)
[2022-01-03] MEDS: Docusate Sodium 100 MG CAPSULE 200 MG PO (09:51)
[2022-01-03] MEDS: Montelukast Sodium 10 MG TABLET PO (09:51)
[2022-01-03] MEDS: FLUoxetine HCl 20 MG CAPSULE PO (09:51)
[2022-01-03] MEDS: Fluticasone Propionate 100 MCG BLST.W.DEV 2 PUFF INHALE (09:54)
[2022-01-03] MEDS: traMADoL HCL 50 MG TABLET PO (11:36)
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
== END 2022-01-03 12:01 | disposition home or self-care (01) | DRG 750 ==
LOC: HO.ED 20:11 → HO.PADLT16 12-26 15:58
PROVIDERS: Physician Assistant; Admitting Provider Psychiatry & Neurology Psychiatry; Emergency Provider Emergency Medicine Emergency Medical Services; Visit Provider Psychiatry & Neurology Psychiatry
DX: F20.9 Schizophrenia, unspecified (principal); R45.851 Suicidal ideations; F17.210 Nicotine dependence, cigarettes, uncomplicated; J44.9 Chronic obstructive pulmonary disease, unspecified; Z20.822 Contact with and (suspected) exposure to COVID-19; Z71.6 Tobacco abuse counseling; Z88.0 Allergy status to penicillin; Z88.6 Allergy status to analgesic agent; Z88.8 Allergy status to other drugs, medicaments and biological substances; Z79.899 Other long term (current) drug therapy
CPT/HCPCS: 36415; 80053; 80159; 80164; 80307; 81003; 82077; 85025; 85048; 87635; 93005; 99285

== ENCOUNTER 2022-01-10 11:23 | Outpatient (REF) | payer MEDICAID, SELFPAY ==
[2022-01-10 12:09] LABS: MANUAL DIFF FLAG NO
[2022-01-10 12:54] LABS: Basophils Percent Auto 0.1 % (0-2); Eosinophils Absolute Auto 0.1 X10*3/uL (0.0-0.4); Eosinophils Percent Auto 1.3 % (0-4); Hematocrit 35.1 % (37.0-47.0); Hemoglobin 10.8 g/dl (12.0-16.0); Imm Gran Abs Auto 0.03 X10*3/uL (0.00-0.03); Imm Gran Pct Auto 0.4 % (0.0-0.4); Lymphocytes Absolute Auto 2.6 X10*3/uL (1.2-4.9); Lymphocytes Percent Auto 37.9 % (20-40); Mean Corpuscular HGB Conc 30.8 g/dl (31.0-35.0); Mean Corpuscular Hemoglobin 28.3 pg (27.0-33.0); Mean Corpuscular Volume 92.1 fL (80.0-98.0); Mean Platelet Volume 12.4 fL (9.4-12.3); Monocytes Absolute Auto 0.5 X10*3/uL (0.1-1.2); Neutrophils Absolute Auto 3.7 x10*3/uL (2.0-8.3); Neutrophils Percent Auto 53.3 % (45-73); Platelet Count 198 X10*3/uL (160-400); Red Blood Count 3.81 X10*6/uL (4.20-5.50); Red Cell Distribution Width 13.6 % (11.0-16.0)
[2022-01-10 13:28] LABS: Valproate 71.3 mcg/mL (50.0-100.0)
== END 2022-01-10 11:24 | disposition home or self-care (01) ==
LOC: HO.LABR 11:23
PROVIDERS: Visit Provider Clinical Nurse Specialist Psychiatric/Mental Health, Adult
DX: Z79.899 Other long term (current) drug therapy (principal)
CPT/HCPCS: 36415; 80164; 85025

== ENCOUNTER 2022-03-14 10:46 | Outpatient (REF) | payer MEDICAID, SELFPAY ==
[2022-03-14 10:59] LABS: MANUAL DIFF FLAG NO
[2022-03-14 11:33] LABS: Basophils Percent Auto 0.2 % (0-2); Eosinophils Absolute Auto 0.1 X10*3/uL (0.0-0.4); Eosinophils Percent Auto 1.4 % (0-4); Hematocrit 38.3 % (37.0-47.0); Hemoglobin 12.1 g/dl (12.0-16.0); Imm Gran Abs Auto 0.03 X10*3/uL (0.00-0.03); Imm Gran Pct Auto 0.3 % (0.0-0.4); Lymphocytes Absolute Auto 3.6 X10*3/uL (1.2-4.9); Lymphocytes Percent Auto 42.1 % (20-40); Mean Corpuscular HGB Conc 31.6 g/dl (31.0-35.0); Mean Corpuscular Hemoglobin 28.7 pg (27.0-33.0); Mean Corpuscular Volume 90.8 fL (80.0-98.0); Mean Platelet Volume 11.6 fL (9.4-12.3); Monocytes Absolute Auto 0.6 X10*3/uL (0.1-1.2); Monocytes Percent Auto 7.1 % (2-11); Neutrophils Absolute Auto 4.2 x10*3/uL (2.0-8.3); Neutrophils Percent Auto 48.9 % (45-73); Platelet Count 284 X10*3/uL (160-400); Red Blood Count 4.22 X10*6/uL (4.20-5.50); Red Cell Distribution Width 14.6 % (11.0-16.0); White Blood Count 8.6 X10*3/uL (4.8-10.8)
== END 2022-03-14 10:47 | disposition home or self-care (01) ==
LOC: HO.LABR 10:46
PROVIDERS: PCP Internal Medicine; Visit Provider Clinical Nurse Specialist Psychiatric/Mental Health, Adult
DX: Z79.899 Other long term (current) drug therapy (principal)
CPT/HCPCS: 36415; 85025; 85048

== ENCOUNTER 2022-04-07 11:39 | Outpatient (REF) | payer MEDICAID, SELFPAY ==
--- NOTE | ~2022-04-07 | MM_ITS ---
EXAMINATION: MM SCREENING DIGITAL BREAST TOMOSYNTHESIS, BILATERAL CLINICAL INFORMATION: Screening. Asymptomatic. Status post benign right breast MRI biopsy The lifetime risk of breast cancer based on the Tyrer-Cuzick Model is 6.1%. COMPARISON: Mammography: April 05, 2021 and studies dating back to August 25, 2015 TECHNIQUE: Digital breast tomosynthesis is performed in both the craniocaudal and mediolateral oblique views along with computer-aided detection (CAD). Synthesized 2D images are generated from the tomosynthesis. FINDINGS: The breasts are heterogeneously dense, which may obscure small masses (ACR BI-RADS breast composition Category c). There are no new significant masses, abnormal calcifications, or other abnormalities. At the biopsy site within the left breast there is some post biopsy architectural distortion seen. MM/MM tomosynthesis screening BI IMPRESSION: Stable appearance of the breasts with no specific mammographic evidence to suggest malignancy. ASSESSMENT: BI-RADS 2: Benign RECOMMENDATION: Routine annual mammography screening. This patient's information was entered into a reminder system with a target due date for their next mammogram.
== END 2022-04-07 11:40 | disposition home or self-care (01) ==
LOC: HO.MAMMO 11:39
PROVIDERS: PCP Internal Medicine; Visit Provider Surgery
DX: Z12.31 Encounter for screening mammogram for malignant neoplasm of breast (principal)
CPT/HCPCS: 77063; 77067

== ENCOUNTER 2022-04-18 12:47 | Outpatient (REF) | payer MEDICAID, SELFPAY ==
--- NOTE | ~2022-04-18 | XR_ITS ---
EXAMINATION: XR KNEE, LEFT CLINICAL INFORMATION: Left knee pain COMPARISON: Left knee 11/14/2017 TECHNIQUE: Four views of the left knee. FINDINGS: Tricompartmental degenerative changes present with marked narrowing of the medial as well as patellofemoral compartment. In the lateral compartment, tibial and femoral condyle osteophytes are seen but joint spaces well maintained. No chondrocalcinosis. A small joint effusion is present. Small ovoid calcifications seen medially and posteriorly, probably not within the joint.. XR/XR knee LT 4V IMPRESSION: Tricompartmental degenerative changes without fracture.
[2022-04-18 13:09] LABS: MANUAL DIFF FLAG NO
[2022-04-18 13:53] LABS: Basophils Percent Auto 0.3 % (0-2); Eosinophils Absolute Auto 0.1 X10*3/uL (0.0-0.4); Eosinophils Percent Auto 1.2 % (0-4); Hematocrit 37.2 % (37.0-47.0); Hemoglobin 11.8 g/dl (12.0-16.0); Imm Gran Abs Auto 0.07 X10*3/uL (0.00-0.03); Imm Gran Pct Auto 0.8 % (0.0-0.4); Lymphocytes Absolute Auto 2.4 X10*3/uL (1.2-4.9); Lymphocytes Percent Auto 27.3 % (20-40); Mean Corpuscular HGB Conc 31.7 g/dl (31.0-35.0); Mean Corpuscular Hemoglobin 29.1 pg (27.0-33.0); Mean Corpuscular Volume 91.6 fL (80.0-98.0); Mean Platelet Volume 12.3 fL (9.4-12.3); Monocytes Absolute Auto 0.6 X10*3/uL (0.1-1.2); Monocytes Percent Auto 6.7 % (2-11); Neut%MD 63.7 %; Neutrophils Absolute Auto 5.5 x10*3/uL (2.0-8.3); Neutrophils Percent Auto 63.7 % (45-73); Platelet Count 257 X10*3/uL (160-400); Red Blood Count 4.06 X10*6/uL (4.20-5.50); Red Cell Distribution Width 14.6 % (11.0-16.0); WBCANC 8.6 X10*3/uL; White Blood Count 8.6 X10*3/uL (4.8-10.8)
== END 2022-04-18 12:48 | disposition home or self-care (01) ==
LOC: HO.XRAY 12:47
PROVIDERS: Absent Provider Clinical Nurse Specialist Psychiatric/Mental Health, Adult; PCP Internal Medicine; Visit Provider Nurse Practitioner Family
DX: M25.562 Pain in left knee (principal); Z79.899 Other long term (current) drug therapy
CPT/HCPCS: 36415; 73564; 85025

== ENCOUNTER 2022-05-03 07:46 | Outpatient (REF) | payer MEDICAID, SELFPAY ==
--- NOTE | ~2022-05-03 | XR_ITS ---
EXAMINATION: XR KNEE AP STANDING CLINICAL INFORMATION: Right knee pain. COMPARISON: 04/18/2022 TECHNIQUE: AP bilateral standing view of the knees was obtained. FINDINGS: There is [id number] narrowing of the medial compartment of the left knee joint with articular cortical irregularity and marginal osteophytes. There is more mild osteoarthritis in the lateral compartment. No acute fractures. Soft tissues are unremarkable. Abnormal trabecular hyperdensities in the left distal femoral metaphysis and tibial plateau likely correspond to chronic bone infarcts. Prosthetic components of the right total knee arthroplasty appear appropriately aligned without acute periprosthetic abnormalities. XR/XR knee standing BI IMPRESSION: [id number] medial compartment osteoarthritis in the left knee and more mild osteoarthritis in the lateral compartment.
== END 2022-05-03 07:47 | disposition home or self-care (01) ==
LOC: HO.HOSX 07:46
PROVIDERS: Visit Provider Physician Assistant
DX: M17.12 Unilateral primary osteoarthritis, left knee (principal); M25.561 Pain in right knee
CPT/HCPCS: 20610; 73565; 99202; J1020

== ENCOUNTER 2022-05-16 09:40 | Outpatient (REF) | payer MEDICAID, SELFPAY ==
[2022-05-16 09:53] LABS: MANUAL DIFF FLAG NO
[2022-05-16 10:09] LABS: Basophils Percent Auto 0.3 % (0-2); Eosinophils Absolute Auto 0.1 X10*3/uL (0.0-0.4); Eosinophils Percent Auto 1.4 % (0-4); Hematocrit 37.9 % (37.0-47.0); Hemoglobin 11.6 g/dl (12.0-16.0); Imm Gran Abs Auto 0.08 X10*3/uL (0.00-0.03); Imm Gran Pct Auto 0.8 % (0.0-0.4); Lymphocytes Absolute Auto 3.6 X10*3/uL (1.2-4.9); Lymphocytes Percent Auto 38.1 % (20-40); Mean Corpuscular HGB Conc 30.6 g/dl (31.0-35.0); Mean Corpuscular Hemoglobin 28.1 pg (27.0-33.0); Mean Corpuscular Volume 91.8 fL (80.0-98.0); Mean Platelet Volume 11.2 fL (9.4-12.3); Monocytes Absolute Auto 0.8 X10*3/uL (0.1-1.2); Neut%MD 51.4 %; Neutrophils Absolute Auto 4.8 x10*3/uL (2.0-8.3); Neutrophils Percent Auto 51.4 % (45-73); Platelet Count 254 X10*3/uL (160-400); Red Blood Count 4.13 X10*6/uL (4.20-5.50); Red Cell Distribution Width 14.6 % (11.0-16.0); WBCANC 9.4 X10*3/uL; White Blood Count 9.4 X10*3/uL (4.8-10.8)
== END 2022-05-16 09:41 | disposition home or self-care (01) ==
LOC: HO.LABR 09:40
PROVIDERS: PCP Internal Medicine; Visit Provider Clinical Nurse Specialist Psychiatric/Mental Health, Adult
DX: Z79.899 Other long term (current) drug therapy (principal)
CPT/HCPCS: 36415; 85025

== ENCOUNTER 2022-06-13 09:40 | Outpatient (REF) | payer MEDICAID, SELFPAY ==
[2022-06-13 10:01] LABS: MANUAL DIFF FLAG NO
[2022-06-13 10:46] LABS: Basophils Percent Auto 0.3 % (0-2); Eosinophils Absolute Auto 0.1 X10*3/uL (0.0-0.4); Eosinophils Percent Auto 1.2 % (0-4); Hematocrit 35.7 % (37.0-47.0); Hemoglobin 11.4 g/dl (12.0-16.0); Imm Gran Abs Auto 0.04 X10*3/uL (0.00-0.03); Imm Gran Pct Auto 0.4 % (0.0-0.4); Lymphocytes Absolute Auto 2.8 X10*3/uL (1.2-4.9); Lymphocytes Percent Auto 28.8 % (20-40); Mean Corpuscular HGB Conc 31.9 g/dl (31.0-35.0); Mean Corpuscular Hemoglobin 29.3 pg (27.0-33.0); Mean Corpuscular Volume 91.8 fL (80.0-98.0); Mean Platelet Volume 11.8 fL (9.4-12.3); Monocytes Absolute Auto 0.9 X10*3/uL (0.1-1.2); Monocytes Percent Auto 9.1 % (2-11); Neut%MD 60.2 %; Neutrophils Absolute Auto 5.9 x10*3/uL (2.0-8.3); Neutrophils Percent Auto 60.2 % (45-73); Platelet Count 233 X10*3/uL (160-400); Red Blood Count 3.89 X10*6/uL (4.20-5.50); Red Cell Distribution Width 14.7 % (11.0-16.0); WBCANC 9.8 X10*3/uL; White Blood Count 9.8 X10*3/uL (4.8-10.8)
== END 2022-06-13 09:41 | disposition home or self-care (01) ==
LOC: HO.LABR 09:40
PROVIDERS: Visit Provider Clinical Nurse Specialist Psychiatric/Mental Health, Adult
DX: Z79.899 Other long term (current) drug therapy (principal)
CPT/HCPCS: 36415; 85025

== ENCOUNTER 2022-07-11 09:45 | Outpatient (REF) | payer MEDICAID, SELFPAY ==
[2022-07-11 10:01] LABS: MANUAL DIFF FLAG NO
[2022-07-11 10:10] LABS: Basophils Percent Auto 0.3 % (0-2); Eosinophils Absolute Auto 0.1 X10*3/uL (0.0-0.4); Eosinophils Percent Auto 1.1 % (0-4); Hematocrit 36.6 % (37.0-47.0); Hemoglobin 11.1 g/dl (12.0-16.0); Imm Gran Abs Auto 0.11 X10*3/uL (0.00-0.03); Imm Gran Pct Auto 1.1 % (0.0-0.4); Lymphocytes Absolute Auto 3.1 X10*3/uL (1.2-4.9); Lymphocytes Percent Auto 31.2 % (20-40); Mean Corpuscular HGB Conc 30.3 g/dl (31.0-35.0); Mean Corpuscular Hemoglobin 28.4 pg (27.0-33.0); Mean Corpuscular Volume 93.6 fL (80.0-98.0); Mean Platelet Volume 11.1 fL (9.4-12.3); Monocytes Absolute Auto 0.8 X10*3/uL (0.1-1.2); Monocytes Percent Auto 8.5 % (2-11); Neut%MD 57.8 %; Neutrophils Absolute Auto 5.7 x10*3/uL (2.0-8.3); Neutrophils Percent Auto 57.8 % (45-73); Platelet Count 252 X10*3/uL (160-400); Red Blood Count 3.91 X10*6/uL (4.20-5.50); Red Cell Distribution Width 15.1 % (11.0-16.0); WBCANC 9.8 X10*3/uL; White Blood Count 9.8 X10*3/uL (4.8-10.8)
== END 2022-07-11 09:46 | disposition home or self-care (01) ==
LOC: HO.LABR 09:45
PROVIDERS: PCP Internal Medicine; Visit Provider Clinical Nurse Specialist Psychiatric/Mental Health, Adult
DX: Z79.899 Other long term (current) drug therapy (principal)
CPT/HCPCS: 36415; 85025

== ENCOUNTER 2022-08-08 09:10 | Outpatient (REF) | payer MEDICAID, SELFPAY ==
[2022-08-08 09:33] LABS: MANUAL DIFF FLAG NO
[2022-08-08 09:49] LABS: Basophils Percent Auto 0.1 % (0-2); Eosinophils Absolute Auto 0.1 X10*3/uL (0.0-0.4); Eosinophils Percent Auto 1.3 % (0-4); Hematocrit 35.8 % (37.0-47.0); Hemoglobin 11.1 g/dl (12.0-16.0); Imm Gran Abs Auto 0.08 X10*3/uL (0.00-0.03); Imm Gran Pct Auto 0.9 % (0.0-0.4); Lymphocytes Absolute Auto 3.9 X10*3/uL (1.2-4.9); Lymphocytes Percent Auto 43.3 % (20-40); Mean Corpuscular Hemoglobin 28.8 pg (27.0-33.0); Monocytes Absolute Auto 0.8 X10*3/uL (0.1-1.2); Monocytes Percent Auto 8.5 % (2-11); Neutrophils Absolute Auto 4.1 x10*3/uL (2.0-8.3); Neutrophils Percent Auto 45.9 % (45-73); Platelet Count 283 X10*3/uL (160-400); Red Blood Count 3.85 X10*6/uL (4.20-5.50); Red Cell Distribution Width 15.2 % (11.0-16.0)
[2022-08-08 10:13] LABS: Alanine Aminotransferase 22 U/L (0-31); Alkaline Phosphatase 69 U/L (39-117); Anion Gap 11 (12-20); Aspartate Amino Transferase 13 U/L (5-31); Blood Urea Nitrogen 13 mg/dL (9-16); Calcium 9.3 mg/dL (8.4-10.2); Carbon Dioxide 31 mmol/L (22-29); Chloride 103 mmol/L (96-108); Estimated Glomerular Filt Rate > 60; Glucose Random 122 mg/dL (60-115); Potassium 4.2 mmol/L (3.3-5.1); Sodium 141 mmol/L (135-145); Total Protein 6.6 g/dL (6.5-8.0)
[2022-08-08 10:23] LABS: Valproate 91.8 mcg/mL (50.0-100.0)
[2022-08-08 11:19] LABS: Bilirubin Total 0.2 mg/dL (0.0-1.0)
== END 2022-08-08 09:11 | disposition home or self-care (01) ==
LOC: HO.LAB 09:10
PROVIDERS: PCP Internal Medicine; Visit Provider Clinical Nurse Specialist Psychiatric/Mental Health, Adult
DX: Z79.899 Other long term (current) drug therapy (principal)
CPT/HCPCS: 36415; 80053; 80164; 85025

== ENCOUNTER 2022-08-16 11:00 | Outpatient (RCR) | payer MEDICAID, SELFPAY ==
--- NOTE | 2022-06-19 13:48 | MHC.PT.EP ---
[facility] [place] Office [place] Office [place] Office [address] Daniela Echeverria [address] [phone] F: [phone] F: [phone] F: [phone] F: [phone] Physical Therapy Plan of Care Date of Evaluation: Date of Surgery: N/A Diagnosis: unilateral primary osteoarthritis, left knee Assessment: Pt is a 56yo F who presents to PT with L knee pain. She is s/p injection 05/03/22. She presents to PT with current impairments in pain, decreased ROM, decreased LE strength, decreased balance, and impaired gait. She is limited functionally by prolonged standing, walking, and stair navigation. She is a good candidate for skilled PT in order to address current impairments to facilitate return to PLOF. She is recommended to be seen 2x/week for 4 weeks and will be reassessed at that time. Frequency and Duration: The patient will be seen 2x/week for 4 weeks Short Term Goals: Pt will be I with HEP to promote self management of symptoms Pt will increase L knee extension by at least 5 degrees Care Home Goals: Pt will demonstrate full ROM throughout L knee to assist with ADLs and functional mobility Pt will improve quad strength to at least 4+/5 to assist with stair navigation Pt will tolerate standing and walking with LRAD with pain < 4/10 Treatment Plan: Modalities to reduce pain, spasms and effusion. Manual therapy to restore motion and function. Therapeutic exercise to improve strength and flexibility. Neuromuscular re-education for posture and balance. Therapeutic activities to return to functional activities of daily living. Electronically signed by: Giovanna Sommers, PT, DPT Please sign and return to therapist. Thank you for your referral.
--- NOTE | 2022-08-16 11:57 | MHC.PT.DC ---
[facility] [place] Office [place] Office [place] Office [address] Daniela Echeverria [address] [phone] F: [phone] F: [phone] F: [phone] F: [phone] Physical Therapy Discharge Report Diagnosis: unilateral primary osteoarthritis, left knee Date of Surgery: N/A Date of Evaluation: 06/19/22 Date of Discharge: 08/16/22 Treatments to Date: 10 Cancellations to Date: No Shows to Date: Discharge Status: Improved Function Independent with HEP Recommend MD Follow-up Discharge Summary: Pt was seen for PT from 06/19/22-08/16/22. She overall has made fair progress since SOC. She has met her STGs and made progress toward her LTGs. She has improved ROM and strength throughout L knee but overall she has fair carry over of exercises. She continues to have L knee pain with prolonged standing and ambulation. Pt is being D/C from skilled PT as she has reached functional plateau. Provided pt with printed, updated copy of HEP and pt verbalized understanding. I recommended pt perform her HEP consistently and follow up with ortho (she has appointment scheduled 08/25/2022) and pt verbalized understanding. Pt reports no further questions for PT at D/C. Electronically signed by: Giovanna Sommers, PT, DPT Please sign and return to therapist. Thank you for your referral.
== END 2022-08-16 11:58 | disposition home or self-care (01) ==
LOC: HO.PT 11:00
PROVIDERS: PCP Internal Medicine; Visit Provider Physician Assistant
DX: M17.12 Unilateral primary osteoarthritis, left knee (principal)
CPT/HCPCS: 97110; 97162

== ENCOUNTER → 2022-08-25 10:26 | Outpatient (BNVA) | payer MEDICAID, SELFPAY | PROVIDERS: PCP Internal Medicine; Visit Provider Orthopaedic Surgery | DX: M17.12 Unilateral primary osteoarthritis, left knee (principal); R73.03 Prediabetes; Z96.651 Presence of right artificial knee joint | CPT/HCPCS: 20610; 99212; J1100 ==

== ENCOUNTER 2022-09-05 09:38 | Outpatient (REF) | payer MEDICAID, SELFPAY ==
[2022-09-05 10:34] LABS: Basophils Percent Auto 0.2 % (0-2); Eosinophils Absolute Auto 0.1 X10*3/uL (0.0-0.4); Eosinophils Percent Auto 0.8 % (0-4); Hematocrit 39.3 % (37.0-47.0); Hemoglobin 12.1 g/dl (12.0-16.0); Imm Gran Abs Auto 0.07 X10*3/uL (0.00-0.03); Imm Gran Pct Auto 0.6 % (0.0-0.4); Lymphocytes Absolute Auto 2.6 X10*3/uL (1.2-4.9); Lymphocytes Percent Auto 22.3 % (20-40); MANUAL DIFF FLAG SCAN; Mean Corpuscular HGB Conc 30.8 g/dl (31.0-35.0); Mean Corpuscular Hemoglobin 28.1 pg (27.0-33.0); Mean Corpuscular Volume 91.4 fL (80.0-98.0); Mean Platelet Volume 11.4 fL (9.4-12.3); Monocytes Absolute Auto 1.6 X10*3/uL (0.1-1.2); Monocytes Percent Auto 13.6 % (2-11); Neutrophils Absolute Auto 7.2 x10*3/uL (2.0-8.3); Neutrophils Percent Auto 62.5 % (45-73); Platelet Count 305 X10*3/uL (160-400); Red Cell Distribution Width 15.5 % (11.0-16.0); SCAN SMEAR FLAG 1; White Blood Count 11.4 X10*3/uL (4.8-10.8)
[2022-09-05 11:59] LABS: SLIDE REVIEW VERIFIED
== END 2022-09-05 09:39 | disposition home or self-care (01) ==
LOC: HO.LABR 09:38
PROVIDERS: PCP Internal Medicine; Visit Provider Clinical Nurse Specialist Psychiatric/Mental Health, Adult
DX: Z79.899 Other long term (current) drug therapy (principal)
CPT/HCPCS: 36415; 85025

== ENCOUNTER 2022-09-09 21:15 | Emergency (ER) | payer MEDICAID, SELFPAY ==
--- NOTE | ~2022-09-09 | CT_ITS ---
EXAMINATION: CT ABDOMEN AND PELVIS WITH CONTRAST CLINICAL INFORMATION: Covid positive. Abdominal pain. COMPARISON: 01/06/2021 TECHNIQUE: Multidetector volumetric images were obtained from the superior aspect of the liver through the pubic symphysis following administration 85 mL of Omnipaque 350 intravenous contrast. Sagittal and coronal reformatted images were obtained on the technologist's workstation. Of note, there was a contrast extravasation during the injection. Minimal contrast on this study. Oral contrast: No This CT examination was performed using dose optimization techniques as appropriate, variously including the following: *Automated exposure control *Adjustment of mA and/or kV according to patient size (this includes techniques or standardized protocols for targeted exams where dose is matched to indication/reason for exam; i.e. extremities or head) *Use of iterative reconstruction technique DLP: 890 mGy-cm FINDINGS: LUNG BASES: The visualized lung bases are unremarkable. LIVER, GALLBLADDER, AND BILIARY TREE: The liver is normal in size and shape with decreased attenuation. No focal hepatic lesion or biliary ductal dilatation is present. The gallbladder is unremarkable with no evidence of radiopaque gallstones, gallbladder wall thickening, or obvious pericholecystic inflammatory changes. PANCREAS: Unremarkable. SPLEEN: Unremarkable. ADRENAL GLANDS: Unremarkable. KIDNEYS AND URETERS: The kidneys are normal in size, shape, and attenuation. No hydronephrosis, hydroureter, or calculi seen. No perinephric stranding. Mild excreted contrast noted in both kidneys. BLADDER: Unremarkable. GASTROINTESTINAL TRACT: The stomach is unremarkable. Normal caliber small bowel. No obstruction. No colonic wall thickening or inflammation. Moderate colonic stool burden. No free air or free fluid. ABDOMINAL WALL: No significant hernia is appreciated. LYMPH NODES: Normal. VASCULAR: Unremarkable. PELVIC VISCERA: The uterus and adnexa are unremarkable. OSSEOUS STRUCTURES: No acute or suspicious osseous abnormality. Mild degenerative changes of the spine. CT/CT abdomen pelvis w IV con IMPRESSION: 1. No acute findings in the abdomen or pelvis. No inflammatory changes. 2. Hepatic steatosis. Fleischner guidelines were followed.
--- NOTE | ~2022-09-09 | XR_ITS ---
EXAMINATION: XR CHEST CLINICAL INFORMATION: Covid positive. Cough. COMPARISON: Chest x-ray 08/10/2021 TECHNIQUE: 2 views of the chest were obtained. FINDINGS: No significant abnormality is noted involving the heart, lungs, mediastinum, bony thorax or soft tissues. XR/XR chest 2V IMPRESSION: Unremarkable examination.
[2022-09-09 22:13] VITALS: BP 119/73; PULSE 102; RESP 18; TEMP 36.7; O2SAT 93; BMI 34.5
[2022-09-09 22:31] VITALS: O2SAT 93
--- NOTE | 2022-09-09 22:36 | PC.NURSE ---
no redness or swelling noted at needlestick site. no pain, no drainage. labs drawn and kit given to pt.
--- NOTE | 2022-09-09 23:04 | ED.GENADULT ---
HPI - General Adult General Chief complaint: General Medical Stated complaint: +covid 09/06 coughing,blood in urine Time Seen by Provider: 09/09/22 23:03 Source: patient Mode of arrival: ambulatory Limitations: no limitations History of Present Illness HPI narrative: 57-year-old female who had a positive home COVID test on 09/06/2022 who presents emergency department for evaluation of subjective fevers x2 days, cough productive of small amount of yellow sputum, chest pain, shortness of breath, dyspnea on exertion, nausea with no vomiting, loss of appetite, no diarrhea, diffuse abdominal pain and fatigue. Patient states that she is feeling very weak specially when she stands. She has been able to drink small amount of liquid but not able to eat for the last 3-4 days. She states that food tastes bad. Patient states she has had 3 COVID-19 vaccinations. Related Data Home Medications Medication Instructions Recorded Confirmed lactulose 10 gram/15 mL oral 15 ml PO DAILY PRN Constipation 07/07/21 12/24/21 solution (Generlac) albuterol sulfate 90 mcg/actuation 2 puff PO Q4-6H PRN Wheezing 08/11/21 12/24/21 aerosol inhaler (ProAir HFA) bisacodyl 5 mg tablet,delayed 2 tab PO BEDTIME 08/11/21 12/24/21 release clonazepam 1 mg tablet 0.5 mg PO QAM 08/11/21 12/24/21 clonazepam 1 mg tablet (Klonopin) 1 mg PO BEDTIME 08/11/21 12/24/21 docusate sodium 100 mg capsule 1 cap PO BID PRN Constipation 08/11/21 12/26/21 sennosides 8.6 mg tablet (senna) 2 tab PO BEDTIME 08/11/21 12/24/21 tramadol 50 mg tablet 1 tab PO Q6H PRN Pain 09/27/21 12/24/21 clozapine 100 mg tablet 3 tab PO BEDTIME 12/24/21 12/24/21 polyethylene glycol 3350 17 gram 17 g PO TID 12/24/21 12/24/21 oral powder packet metformin 500 mg tablet,extended 500 mg PO BID 05/03/22 release 24 hr Previous Rx's Medication Instructions Recorded clozapine 25 mg tablet 50 mg PO QAM 30 days #60 tabs 07/12/21 divalproex 500 mg tablet,extended 1,500 mg PO BEDTIME 30 days #90 07/12/21 release 24 hr tabs fluoxetine 20 mg capsule 20 mg PO QAM 30 days #30 caps 07/12/21 fluticasone propionate 110 2 puff PO BID 30 days #12 grams 07/12/21 mcg/actuation HFA aerosol inhaler (Flovent HFA) lisinopril 10 mg tablet 10 mg PO QPM 30 days #30 tabs 07/12/21 montelukast 10 mg tablet 10 mg PO DAILY 30 days #30 tabs 07/12/21 omeprazole 20 mg capsule,delayed 20 mg PO BID 30 days #60 caps 07/12/21 release polyethylene glycol 3350 17 gram 17 g PO TID 30 days #1,600 grams 10/12/21 oral powder packet cane #1 ea 05/03/22 ondansetron 4 mg disintegrating 4 mg PO Q6-8H PRN nausea and 09/10/22 tablet vomiting #14 tabs Allergies Allergy/AdvReac Type Severity Reaction Status Date / Time diazepam [From Valium] Allergy Unknown Unknown Verified 09/09/22 21:47 haloperidol [From Haldol] Allergy Unknown Unknown Verified 09/09/22 21:47 Penicillins Allergy Unknown Unknown Verified 09/09/22 21:47 risperidone [From Risperdal] Allergy Unknown Unknown Verified 09/09/22 21:47 aspirin [Aspirin] AdvReac Intermediate Vomiting Verified 09/09/22 21:47 trazodone [TRAZODONE] AdvReac Intermediate NAUSEA & Verified 09/09/22 21:47 VOMITING Review of Systems Review of Systems: Yes all other systems are reviewed and are negative COUNT INCLUDES THE [facility] Past Medical History COUNT INCLUDES THE [facility] Narrative: Social history: She smokes 3-5 cigarettes per day times many years. She denies alcohol use. She denies drug use. Medical History Anxiety Asthma Chronic mental illness COPD (chronic obstructive pulmonary disease) Diabetes Hyperlipidemia Morbid obesity due to excess calories Schizophrenia Surgical History H/O right knee surgery History of appendectomy History of tubal ligation Family History Family History Father Throat cancer Mother CVA (cerebral vascular accident) Brother Drug overdose Sister No problems noted. Sister No problems noted. Son No problems noted. Son No problems noted. Social History 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: Foster Family Household Members Other:: Lanny Charles, Inocencio Boyces, - foster parents Housing: Apartment Do you presently have visiting nurse or other home services: Yes (Meds administered by [facility]) Unable to assess alcohol history related to: Unknown Alcohol intake: never Patient Tobacco Use Status: Never used Tobacco Tobacco use type: Cigarette Cigarettes Per Day: 10 Smoked in Last 30 Days: No e-Cigarette/Vaping Use: Never Used Second Hand Smoke Exposure: No Use of substances other than those prescribed or required for medical reasons: No Advance Directives: No Advance Directives Date on File: 03/03/14 service: No Current occupational status: disabled Sexual orientation: Don't Know Physical Exam ED Vital Signs: Vital Signs - 24 hr 09/09/22 22:13 09/09/22 22:31 09/10/22 01:28 Temperature 98.1 F Pulse Rate 102 H Respiratory Rate 18 16 Blood Pressure 119/73 Pulse Oximetry 93 93 Oxygen Delivery Method Room Air Room Air 09/10/22 01:36 Temperature 97.6 F Pulse Rate 99 Respiratory Rate 20 Blood Pressure 125/83 Pulse Oximetry 94 Oxygen Delivery Method Room Air BMI result Body Mass Index 34.5 Const Other: Awake, alert, female patient, pleasant, cooperative, answers all questions appropriately, HENMT Head: Yes normal to inspection, Yes normocephalic and Yes atraumatic Ears: external ears normal General nose exam: Normal external nose present Face and sinus: Yes normal facial exam Mouth: Normal oral and palatal mucosa present Throat: Yes posterior oropharynx normal Eyes Other: Pupils are equal round reactive light, sclera appear to be icteric, conjunctiva are normal Neck Neck: Yes normal visual inspection, Yes no lymphadenopathy, Yes trachea midline and Yes supple Chest Chest palpation & inspection: normal inspection of the chest and normal palpation of entire chest wall Resp Effort & Inspection: normal respiratory effort and able to speak in complete sentences Auscultation: clear to auscultation bilaterally Cardio Rate: regular rate Rhythm: regular rhythm Heart sounds: S1 normal heart sound present, S2 normal heart sound present and no murmurs GI Other: Obese abdomen, diffusely tender with increased tenderness along the left lower quadrant and right upper quadrant, negative Vargas sign, normoactive bowel sounds, no rebound, no involuntary guarding General: Yes no CVA tenderness Back/Spine/Pelvis Back: no CVA tenderness Skin General skin exam: no rashes or lesions noted Neuro Cranial nerves: Yes CN's II-XII intact bilaterally Cognition (Neuro): normal cognition Motor exam (neuro): 5/5 motor strength present throughout Extrem General: Yes normal to inspection Psych Appearance: grossly normal Speech and movement: Normal speech and movement present Affect: normal affect Attitude: cooperative Thought process: Normal thought process present Thought content: Normal thought content present Medications Administered Discontinued Medications Generic Name Dose Route Start Last Admin Trade Name Julioq PRN Reason Stop Dose Admin Sodium Chloride 1,000 mls @ 999 mls/hr 09/09/22 23:24 09/10/22 00:19 Ns IV 09/10/22 00:24 999 mls/hr .Q1H1M STA Administration Iohexol 85 ml 09/10/22 01:24 09/10/22 01:25 Iohexol 350 Mg/Ml 100 Ml Infus..Btl IV 09/10/22 01:25 85 ml ONCE ONE Administration Ketorolac Tromethamine 15 mg 09/09/22 23:24 09/10/22 00:19 Ketorolac Tromethamine 15 Mg/Ml Vial IVPUSH 09/09/22 23:25 15 mg ONCE STA Administration Ondansetron HCl 4 mg 09/09/22 23:24 09/10/22 00:20 Ondansetron Hcl 4 Mg/2 Ml Vial IVPUSH 09/09/22 23:25 4 mg ONCE ONE Administration Medical Decision Making Medical Decision Making MDM Narrative: 57-year-old female who reports that she had a home COVID test on 09/06/2022 which was positive. Patient's symptoms are consistent with a viral illness however on examination she may have icteric sclera and has diffuse abdominal tenderness with increased tenderness in the left lower quadrant and right upper quadrant. Patient has had a productive cough, and shortness of breath which is consistent with a viral URI, her O2 saturation was 93% on room air suggest that she does not have significant hypoxia. I ordered a CBC, CMP, lipase, lactic acid, PT/INR, PTT, chest x-ray, CT scan of abdomen pelvis with IV contrast. Patient will also be tested for COVID-19, RSV and influenza. Patient was ordered to get normal saline x1 L, Zofran 4 mg IV for her nausea and Toradol 15 mg IV for her abdominal pain and myalgias. 0303: My interpretation of patient's laboratory and radiology data is as follows: WBC elevated 11,300. PTT elevated 45. COVID-19 was positive. Chest x-ray revealed no evidence pneumonia. CT scan of the abdomen pelvis revealed no acute cause for the patient's abdominal pain. Patient's symptoms are consistent with COVID-19 infection. At this time I do not think that she has pneumonia or significant hypoxia that requires hospitalization (lowest documented O2 saturation was 93%). The patient is on a significant amount of medications that would prohibit her from being prescribed PAxlovid. She was prescribed Zofran 4 [place] ODT every 8 hours as needed for nausea and vomiting. She is advised to take Tylenol ibuprofen for pain and fever. She was discharged home. Differential Diagnosis The differentially diagnosis includes was not limited to COVID-19 pneumonia, COVID-19 viral syndrome, cholecystitis, diverticulitis, dehydration, urinary tract infection, pyelonephritis Lab Data [facility] Lab Attestation statement: I reviewed the patient's lab results. Please see my interpretation in MDM Section 09/09/22 23:53 09/09/22 23:53 Labs: Lab Results 09/09/22 09/09/22 09/09/22 Range/Units 23:53 23:53 23:53 WBC 11.3 H (4.8-10.8) X10*3/uL RBC 4.36 (4.20-5.50) X10*6/uL Hgb 12.2 (12.0-16.0) g/dl Hct 38.9 (37.0-47.0) % MCV 89.2 (80.0-98.0) fL MCH 28.0 (27.0-33.0) pg MCHC 31.4 (31.0-35.0) g/dl RDW 15.3 (11.0-16.0) % Plt Count 302 (160-400) X10*3/uL MPV 10.7 (9.4-12.3) fL Immature Gran % (Auto) 1.4 H (0.0-0.4) % Neut % (Auto) 60.7 (45-73) % Lymph % (Auto) 28.4 (20-40) % [place] % (Auto) 8.2 (2-11) % Eos % (Auto) 1.0 (0-4) % Baso % (Auto) 0.3 (0-2) % Lymph # (Auto) 3.2 (1.2-4.9) X10*3/uL [place] # (Auto) 0.9 (0.1-1.2) X10*3/uL Eos # (Auto) 0.1 (0.0-0.4) X10*3/uL Baso # (Auto) 0.0 (0.0-0.2) X10*3/uL Abs Immat Gran (auto) 0.16 H (0.00-0.03) X10*3/uL Absolute Neuts (auto) 6.9 (2.0-8.3) x10*3/uL Absolute Nucleated RBC 0.000 (0.0-0.012) X10*3/uL Nucleated RBC % (auto) 0.0 (0.0-0.2) /100WBC PT 11.6 (10.0-13.1) SEC INR 1.0 (0.9-1.1) APTT 45.4 H (26.0-36.4) SEC Sodium 141 (135-145) mmol/L Potassium 4.2 (3.3-5.1) mmol/L Chloride 102 (96-108) mmol/L Carbon Dioxide 28 (22-29) mmol/L Anion Gap 15 (12-20) BUN 16 (9-16) mg/dL Creatinine 0.64 (0.5-1.4) mg/dL Estim Creat Clear Calc 98.5 Estimated GFR > 60 Random Glucose 104 (60-115) mg/dL Lactic Acid (0.5-2.0) mmol/L Calcium 9.0 (8.4-10.2) mg/dL Total Bilirubin 0.3 (0.0-1.0) mg/dL AST 18 (5-31) U/L ALT 26 (0-31) U/L Alkaline Phosphatase 68 (39-117) U/L Total Creatine Kinase 87 (26-140) U/L Total Protein 6.9 (6.5-8.0) g/dL Albumin 4.1 (3.5-5.0) g/dL Lipase 16 (8-78) U/L Urine Color Urine Appearance Urine pH (5.0-9.0) Ur Specific [place] (1.005-1.025) Urine Protein (Neg-Trace) mg/dL Urine Glucose (UA) (Negative) mg/dL Urine Ketones (Negative) mg/dL Urine Blood (Negative) Urine Nitrite (Negative) Ur Leukocyte Esterase (Negative) Urine RBC (0-2) /HPF Urine WBC (0-5) /HPF Ur Squamous Epith Cells (0-2) /HPF Urine Bacteria (None Seen) Hyaline Casts (0-2) /LPF Influenza Type A (PCR) (Negative) Influenza Type B (PCR) (Negative) RSV RNA Qual (PCR) (Negative) SARS-CoV-2 RNA (RT-PCR) (Negative) 09/09/22 09/09/22 09/09/22 Range/Units 23:53 23:53 23:53 WBC (4.8-10.8) X10*3/uL RBC (4.20-5.50) X10*6/uL Hgb (12.0-16.0) g/dl Hct (37.0-47.0) % MCV (80.0-98.0) fL MCH (27.0-33.0) pg MCHC (31.0-35.0) g/dl RDW (11.0-16.0) % Plt Count (160-400) X10*3/uL MPV (9.4-12.3) fL Immature Gran % (Auto) (0.0-0.4) % Neut % (Auto) (45-73) % Lymph % (Auto) (20-40) % [place] % (Auto) (2-11) % Eos % (Auto) (0-4) % Baso % (Auto) (0-2) % Lymph # (Auto) (1.2-4.9) X10*3/uL [place] # (Auto) (0.1-1.2) X10*3/uL Eos # (Auto) (0.0-0.4) X10*3/uL Baso # (Auto) (0.0-0.2) X10*3/uL Abs Immat Gran (auto) (0.00-0.03) X10*3/uL Absolute Neuts (auto) (2.0-8.3) x10*3/uL Absolute Nucleated RBC (0.0-0.012) X10*3/uL Nucleated RBC % (auto) (0.0-0.2) /100WBC PT (10.0-13.1) SEC INR (0.9-1.1) APTT (26.0-36.4) SEC Sodium (135-145) mmol/L Potassium (3.3-5.1) mmol/L Chloride (96-108) mmol/L Carbon Dioxide (22-29) mmol/L Anion Gap (12-20) BUN (9-16) mg/dL Creatinine (0.5-1.4) mg/dL Estim Creat Clear Calc Estimated GFR Random Glucose (60-115) mg/dL Lactic Acid 1.3 (0.5-2.0) mmol/L Calcium (8.4-10.2) mg/dL Total Bilirubin (0.0-1.0) mg/dL AST (5-31) U/L ALT (0-31) U/L Alkaline Phosphatase (39-117) U/L Total Creatine Kinase (26-140) U/L Total Protein (6.5-8.0) g/dL Albumin (3.5-5.0) g/dL Lipase (8-78) U/L Urine Color Dark Yellow Urine Appearance Clear Urine pH 5.5 (5.0-9.0) Ur Specific [place] >= 1.030 H (1.005-1.025) Urine Protein Trace (Neg-Trace) mg/dL Urine Glucose (UA) Negative (Negative) mg/dL Urine Ketones 15 (Negative) mg/dL Urine Blood Negative (Negative) Urine Nitrite Negative (Negative) Ur Leukocyte Esterase Trace H (Negative) Urine RBC 6-10 H (0-2) /HPF Urine WBC 0-5 (0-5) /HPF Ur Squamous Epith Cells 3-5 (0-2) /HPF Urine Bacteria None Seen (None Seen) Hyaline Casts 0-2 (0-2) /LPF Influenza Type A (PCR) NEGATIVE (Negative) Influenza Type B (PCR) NEGATIVE (Negative) RSV RNA Qual (PCR) NEGATIVE (Negative) SARS-CoV-2 RNA (RT-PCR) POSITIVE A (Negative) Independent Interpretation I performed an independent interpretation of an: Plain X-Ray (Chest x-ray) Interpretation: No acute disease, no evidence for pneumonia Radiology Impression Discussion of test interpretation with radiology: I have reviewed the radiologist's reading. Radiologist Impression: XR/XR chest 2V IMPRESSION: Unremarkable examination. Dictated By: Faisal Shanks MD Signed By:<Electronically signed by Faisal Shanks MD in OV>09/10/22 0054 Discharge Plan Discharge Clinical Impression: COVID-19 virus infection Patient Disposition: Home, Self-Care Instructions: COVID-19 (Coronavirus Disease 2019) (ED) Additional Instructions: Your laboratory evaluation was unremarkable. Your chest x-ray was normal with no evidence of pneumonia. Your oxygen level as above 88% which is reassuring and suggests that you do not need to be admitted for oxygen therapy. The CT scan of your abdomen pelvis did not reveal a clear cause for your pain, your pain is most likely caused by the COVID virus. Take Zofran ODT 4 mg pills, 1 pill dissolved in your mouth every 8 hours as needed for nausea and vomiting. Take ibuprofen 200 mg pills, 3 pills every 6 hours as needed for pain. Take Tylenol (acetaminophen) 500 mg pills, 2 pills every 4 to 6 hours as needed for pain. Follow-up with your doctor in 2 days. Please return to the emergency department if your symptoms get worse or if you develop any symptoms that are concerning to you. Prescriptions: New ondansetron 4 mg tablet,disintegrating 4 mg PO Q6-8H PRN (Reason: nausea and vomiting) Qty: 14 0RF No Action lactulose [Generlac] 10 gram/15 mL solution 15 ml PO DAILY PRN (Reason: Constipation) lisinopril 10 mg tablet 10 mg PO QPM 30 Days Qty: 30 0RF divalproex 500 mg tablet extended release 24 hr 1,500 mg PO BEDTIME 30 Days Qty: 90 0RF omeprazole 20 mg capsule,delayed release(DR/EC) 20 mg PO BID 30 Days Qty: 60 0RF montelukast 10 mg tablet 10 mg PO DAILY 30 Days Qty: 30 0RF clozapine 25 mg tablet 50 mg PO QAM 30 Days Qty: 60 0RF fluoxetine 20 mg capsule 20 mg PO QAM 30 Days Qty: 30 0RF Flovent HFA 110 mcg/actuation HFA aerosol inhaler 2 puff PO BID 30 Days Qty: 12 0RF tramadol 50 mg tablet 1 tab PO Q6H PRN (Reason: Pain) polyethylene glycol 3350 17 gram Powder In Packet 17 g PO TID 30 Days Qty: 1600 0RF sennosides [senna] 8.6 mg tablet 2 tab PO BEDTIME docusate sodium 100 mg capsule 1 cap PO BID PRN (Reason: Constipation) bisacodyl 5 mg tablet,delayed release (DR/EC) 2 tab PO BEDTIME albuterol sulfate [ProAir HFA] 90 mcg/actuation HFA aerosol inhaler 2 puff PO Q4-6H PRN (Reason: Wheezing) clonazepam 1 mg Tablet 0.5 mg PO QAM clonazepam [Klonopin] 1 mg Tablet 1 mg PO BEDTIME clozapine 100 mg tablet 3 tab PO BEDTIME polyethylene glycol 3350 17 gram powder in packet 17 g PO TID metformin 500 mg tablet extended release 24 hr 500 mg PO BID (DME) cane Device See Rx Instructions .MEDSUPPLY Qty: 1 0RF Rx Instructions: Cane
[2022-09-10 00:07] LABS: Basophils Percent Auto 0.3 % (0-2); Eosinophils Absolute Auto 0.1 X10*3/uL (0.0-0.4); Hematocrit 38.9 % (37.0-47.0); Hemoglobin 12.2 g/dl (12.0-16.0); Imm Gran Abs Auto 0.16 X10*3/uL (0.00-0.03); Imm Gran Pct Auto 1.4 % (0.0-0.4); Lymphocytes Absolute Auto 3.2 X10*3/uL (1.2-4.9); Lymphocytes Percent Auto 28.4 % (20-40); MANUAL DIFF FLAG NO; Mean Corpuscular HGB Conc 31.4 g/dl (31.0-35.0); Mean Corpuscular Volume 89.2 fL (80.0-98.0); Mean Platelet Volume 10.7 fL (9.4-12.3); Monocytes Absolute Auto 0.9 X10*3/uL (0.1-1.2); Monocytes Percent Auto 8.2 % (2-11); Neutrophils Absolute Auto 6.9 x10*3/uL (2.0-8.3); Neutrophils Percent Auto 60.7 % (45-73); Platelet Count 302 X10*3/uL (160-400); Red Blood Count 4.36 X10*6/uL (4.20-5.50); Red Cell Distribution Width 15.3 % (11.0-16.0); White Blood Count 11.3 X10*3/uL (4.8-10.8)
[2022-09-10 00:08] LABS: Appearance Urine Clear; Color Urine Dark Yellow; Glucose Urine UA Negative (Negative); Leukocyte Esterase Urine Trace (Negative); Nitrite Urine Negative (Negative); PH 5.5 (5.0-9.0); Specific Gravity - Urine >= 1.030 (1.005-1.025); UMIC TRIGGER UACC YES; Urine Blood Negative (Negative); Urine Ketones 15 mg/dL (Negative); Urine Protein Trace mg/dL (Neg-Trace)
[2022-09-10 00:14] LABS: Prothrombin Time 11.6 SEC (10.0-13.1)
[2022-09-10 00:17] LABS: Partial Thromboplastin Time 45.4 SEC (26.0-36.4)
[2022-09-10] MEDS: Ketorolac Tromethamine 15 MG/ML VIAL IVPUSH (00:19)
[2022-09-10] MEDS: 0.9 % Sodium Chloride 1,000 ML 999 ML IV (00:19)
[2022-09-10 00:20] LABS: Bacteria Urine None Seen (None Seen); Hyaline Casts Urine 0-2 /LPF (0-2); WBC Urine 0-5 /HPF (0-5)
[2022-09-10] MEDS: ondansetron HCL 4 MG/2 ML VIAL IVPUSH (00:20)
[2022-09-10 00:24] LABS: Lactic Acid 1.3 mmol/L (0.5-2.0)
[2022-09-10 00:29] LABS: Alanine Aminotransferase 26 U/L (0-31); Albumin Level 4.1 g/dL (3.5-5.0); Alkaline Phosphatase 68 U/L (39-117); Anion Gap 15 (12-20); Aspartate Amino Transferase 18 U/L (5-31); Bilirubin Total 0.3 mg/dL (0.0-1.0); Blood Urea Nitrogen 16 mg/dL (9-16); Carbon Dioxide 28 mmol/L (22-29); Chloride 102 mmol/L (96-108); Creatinine Clr Calc Pharmacy 98.5; Estimated Glomerular Filt Rate > 60; Glucose Random 104 mg/dL (60-115); Lipase 16 U/L (8-78); Potassium 4.2 mmol/L (3.3-5.1); Sodium 141 mmol/L (135-145); Total Protein 6.9 g/dL (6.5-8.0)
[2022-09-10 00:44] LABS: Influenza A PCR NEGATIVE (Negative); Influenza B PCR NEGATIVE (Negative); Resp Syncy Virus RNA Qual PCR NEGATIVE (Negative); SARS COV2 PCR INHOUSE POSITIVE (Negative)
--- NOTE | 2022-09-10 01:23 | PC.NURSE ---
pt returned from ct with contrast and the right arm above the iv site is swollen. pt arm is elevated, ice pack to arm. iv removed.
[2022-09-10] MEDS: iohexoL 350 MG/ML 100 ML INFUS..BTL 85 ML IV (01:25)
[2022-09-10 01:28] VITALS: RESP 16
[2022-09-10 01:36] VITALS: BP 125/83; PULSE 99; RESP 20; TEMP 36.4; O2SAT 94
--- NOTE | 2022-09-10 02:36 | PC.NURSE ---
right ac upper arm assessed, cool, firm and on a ice pack at this time. pt states she generally doesnt feel well to her whole body. pt is covid +
== END 2022-09-10 03:41 | disposition home or self-care (01) ==
PROVIDERS: Emergency Provider Emergency Medicine Emergency Medical Services
DX: U07.1 COVID-19 (principal); R10.9 Unspecified abdominal pain; R06.02 Shortness of breath; E11.9 Type 2 diabetes mellitus without complications; E78.5 Hyperlipidemia, unspecified; E66.9 Obesity, unspecified; Z68.34 Body mass index [BMI] 34.0-34.9, adult; Z79.899 Other long term (current) drug therapy; Z79.84 Long term (current) use of oral hypoglycemic drugs
CPT/HCPCS: 0241U; 36415; 71046; 74177; 80053; 81001; 82550; 83605; 83690; 85025; 85610; 85730; 96374; 96375; 99284; J1885; J2405; Q9967

== ENCOUNTER 2022-10-05 10:01 | Outpatient (REF) | payer MEDICAID, SELFPAY ==
[2022-10-05 10:15] LABS: MANUAL DIFF FLAG NO
[2022-10-05 10:53] LABS: Basophils Percent Auto 0.2 % (0-2); Eosinophils Absolute Auto 0.1 X10*3/uL (0.0-0.4); Eosinophils Percent Auto 1.4 % (0-4); Hematocrit 37.8 % (37.0-47.0); Hemoglobin 11.6 g/dl (12.0-16.0); Imm Gran Abs Auto 0.05 X10*3/uL (0.00-0.03); Imm Gran Pct Auto 0.6 % (0.0-0.4); Lymphocytes Absolute Auto 3.9 X10*3/uL (1.2-4.9); Lymphocytes Percent Auto 45.3 % (20-40); Mean Corpuscular HGB Conc 30.7 g/dl (31.0-35.0); Mean Corpuscular Hemoglobin 27.9 pg (27.0-33.0); Mean Corpuscular Volume 90.9 fL (80.0-98.0); Mean Platelet Volume 11.4 fL (9.4-12.3); Monocytes Absolute Auto 0.7 X10*3/uL (0.1-1.2); Monocytes Percent Auto 8.3 % (2-11); Neutrophils Absolute Auto 3.8 x10*3/uL (2.0-8.3); Neutrophils Percent Auto 44.2 % (45-73); Platelet Count 219 X10*3/uL (160-400); Red Blood Count 4.16 X10*6/uL (4.20-5.50); Red Cell Distribution Width 16.1 % (11.0-16.0); White Blood Count 8.6 X10*3/uL (4.8-10.8)
== END 2022-10-05 10:02 | disposition home or self-care (01) ==
LOC: HO.LABR 10:01
PROVIDERS: Visit Provider Clinical Nurse Specialist Psychiatric/Mental Health, Adult
DX: Z79.899 Other long term (current) drug therapy (principal)
CPT/HCPCS: 36415; 85025

== ENCOUNTER 2022-10-20 01:02 | Emergency (ER) | payer MEDICAID, SELFPAY ==
--- NOTE | ~2022-10-20 | XR_ITS ---
EXAMINATION: XR CHEST CLINICAL INFORMATION: Cough COMPARISON: 09/10/2022 TECHNIQUE: 2 views of the chest were obtained. FINDINGS: Lung volumes are symmetric. No focal consolidation is seen. Mildly prominent central vasculature. No evidence of pneumothorax or pleural effusion. The cardiomediastinal contour is unremarkable. No acute osseous findings are seen. XR/XR chest 2V IMPRESSION: No focal consolidation. Mildly prominent central vasculature.
[2022-10-20 01:12] VITALS: BP 152/72; PULSE 100; RESP 18; TEMP 36.6; O2SAT 90; BMI 33.3
--- NOTE | 2022-10-20 01:18 | ECG_ITS ---
Test Reason : CHEST PAIN Blood Pressure : / mmHG Vent. Rate : 096 BPM Atrial Rate : 096 BPM P-R Int : 128 ms QRS Dur : 082 ms QT Int : 336 ms P-R-T Axes : 060 034 016 degrees QTc Int : 424 ms Normal sinus rhythm Normal ECG When compared with ECG of 26-DEC-2021 11:10, No significant change was found Referred By: Generic ED Physician Electronically Signed By:DELISA MOON MD
[2022-10-20 02:01] LABS: MANUAL DIFF FLAG NO
[2022-10-20 02:02] LABS: Basophils Percent Auto 0.2 % (0-2); Hematocrit 32.9 % (37.0-47.0); Hemoglobin 10.3 g/dl (12.0-16.0); Imm Gran Abs Auto 0.19 X10*3/uL (0.00-0.03); Imm Gran Pct Auto 1.6 % (0.0-0.4); Lymphocytes Absolute Auto 2.2 X10*3/uL (1.2-4.9); Lymphocytes Percent Auto 18.7 % (20-40); Mean Corpuscular HGB Conc 31.3 g/dl (31.0-35.0); Mean Corpuscular Hemoglobin 27.8 pg (27.0-33.0); Mean Corpuscular Volume 88.7 fL (80.0-98.0); Mean Platelet Volume 11.8 fL (9.4-12.3); Monocytes Absolute Auto 0.9 X10*3/uL (0.1-1.2); Monocytes Percent Auto 7.4 % (2-11); NRBC Pct Auto 0.2 /100WBC (0.0-0.2); Neutrophils Absolute Auto 8.4 x10*3/uL (2.0-8.3); Neutrophils Percent Auto 72.1 % (45-73); Platelet Count 250 X10*3/uL (160-400); Red Blood Count 3.71 X10*6/uL (4.20-5.50); Red Cell Distribution Width 16.5 % (11.0-16.0); White Blood Count 11.6 X10*3/uL (4.8-10.8)
[2022-10-20 02:23] LABS: Appearance Urine Clear; Color Urine Yellow; Glucose Urine UA Negative (Negative); Leukocyte Esterase Urine Negative (Negative); Nitrite Urine Negative (Negative); Specific Gravity - Urine 1.015 (1.005-1.025); UMIC TRIGGER UACC YES; Urine Blood Trace (Negative); Urine Ketones Trace mg/dL (Negative); Urine Protein Negative (Neg-Trace)
[2022-10-20 02:28] LABS: Bacteria Urine None Seen (None Seen); Hyaline Casts Urine 0-2 /LPF (0-2); Squamous Epithelial Cell Urine 0-2 /HPF (0-2); WBC Urine 0-5 /HPF (0-5)
[2022-10-20 02:33] LABS: Alanine Aminotransferase 46 U/L (0-31); Albumin Level 3.9 g/dL (3.5-5.0); Alkaline Phosphatase 73 U/L (39-117); Anion Gap 19 (12-20); Aspartate Amino Transferase 32 U/L (5-31); Bilirubin Total 0.3 mg/dL (0.0-1.0); Blood Urea Nitrogen 15 mg/dL (9-16); Calcium 9.3 mg/dL (8.4-10.2); Carbon Dioxide 26 mmol/L (22-29); Chloride 101 mmol/L (96-108); Creatinine Clr Calc Pharmacy 104.7; Estimated Glomerular Filt Rate > 60; Glucose Random 120 mg/dL (60-115); Potassium 4.7 mmol/L (3.3-5.1); Sodium 141 mmol/L (135-145); Troponin-I High Sensitivity < 3.5 ng/L (<3.5-17.0)
[2022-10-20 03:30] LABS: Influenza A PCR NEGATIVE (Negative); Influenza B PCR NEGATIVE (Negative); Resp Syncy Virus RNA Qual PCR NEGATIVE (Negative); SARS COV2 PCR INHOUSE NEGATIVE (Negative)
[2022-10-20 04:07] VITALS: BP 154/87; PULSE 92; RESP 14; TEMP 36.6; O2SAT 95
[2022-10-20 06:08] VITALS: BP 140/77; PULSE 86; RESP 16; TEMP 36.6; O2SAT 92
--- NOTE | 2022-10-20 06:59 | ED_ITS ---
HPI - Chest Pain General Chief Complaint: Chest Pain Stated Complaint: Chest Pain/ back pain Time Seen by Provider: 10/20/22 06:59 Source: patient Mode of arrival: ambulatory Limitations: language barrier (Patient's 1st language is [place]or[place], she does speak some [place], book mender used) History of Present Illness HPI narrative: 57-year-old female who presents emergency department for evaluation of cough, shortness of breath and abdominal pain. Patient states she has had a productive cough for approximately 3 days. She states she is coughing up dark brown sputum with no blood in the sputum. She has had intermittent fever with no chills. She denied rhinorrhea, sore throat. She states she does have shortness of breath and dyspnea on exertion. She complained of nausea but no vomiting. She denied diarrhea. Denied myalgias or arthralgias. Patient was seen at [facility] and diagnosed with pneumonia. She states she was started on prednisone but not antibiotics. Related Data Home Medications Medication Instructions Recorded Confirmed lactulose 10 gram/15 mL oral 15 ml PO DAILY PRN Constipation 07/07/21 12/24/21 solution (Generlac) albuterol sulfate 90 mcg/actuation 2 puff PO Q4-6H PRN Wheezing 08/11/21 12/24/21 aerosol inhaler (ProAir HFA) bisacodyl 5 mg tablet,delayed 2 tab PO BEDTIME 08/11/21 12/24/21 release clonazepam 1 mg tablet 0.5 mg PO QAM 08/11/21 12/24/21 clonazepam 1 mg tablet (Klonopin) 1 mg PO BEDTIME 08/11/21 12/24/21 docusate sodium 100 mg capsule 1 cap PO BID PRN Constipation 08/11/21 12/26/21 sennosides 8.6 mg tablet (senna) 2 tab PO BEDTIME 08/11/21 12/24/21 tramadol 50 mg tablet 1 tab PO Q6H PRN Pain 09/27/21 12/24/21 clozapine 100 mg tablet 3 tab PO BEDTIME 12/24/21 12/24/21 polyethylene glycol 3350 17 gram 17 g PO TID 12/24/21 12/24/21 oral powder packet metformin 500 mg tablet,extended 500 mg PO BID 05/03/22 release 24 hr Previous Rx's Medication Instructions Recorded clozapine 25 mg tablet 50 mg PO QAM 30 days #60 tabs 07/12/21 divalproex 500 mg tablet,extended 1,500 mg PO BEDTIME 30 days #90 07/12/21 release 24 hr tabs fluoxetine 20 mg capsule 20 mg PO QAM 30 days #30 caps 07/12/21 fluticasone propionate 110 2 puff PO BID 30 days #12 grams 07/12/21 mcg/actuation HFA aerosol inhaler (Flovent HFA) lisinopril 10 mg tablet 10 mg PO QPM 30 days #30 tabs 07/12/21 montelukast 10 mg tablet 10 mg PO DAILY 30 days #30 tabs 07/12/21 omeprazole 20 mg capsule,delayed 20 mg PO BID 30 days #60 caps 07/12/21 release polyethylene glycol 3350 17 gram 17 g PO TID 30 days #1,600 grams 10/12/21 oral powder packet cane #1 ea 05/03/22 ondansetron 4 mg disintegrating 4 mg PO Q6-8H PRN nausea and 09/10/22 tablet vomiting #14 tabs doxycycline hyclate 100 mg tablet 100 mg PO Q12H 7 days #14 tabs 10/20/22 Allergies Allergy/AdvReac Type Severity Reaction Status Date / Time diazepam [From Valium] Allergy Unknown Unknown Verified 09/09/22 21:47 haloperidol [From Haldol] Allergy Unknown Unknown Verified 09/09/22 21:47 Penicillins Allergy Unknown Unknown Verified 09/09/22 21:47 risperidone [From Risperdal] Allergy Unknown Unknown Verified 09/09/22 21:47 aspirin [Aspirin] AdvReac Intermediate Vomiting Verified 09/09/22 21:47 trazodone [TRAZODONE] AdvReac Intermediate NAUSEA & Verified 09/09/22 21:47 VOMITING Review of Systems Review of Systems: Yes all other systems are reviewed and are negative PMFSH Past Medical History Medical History Anxiety Asthma Chronic mental illness COPD (chronic obstructive pulmonary disease) Diabetes Hyperlipidemia Morbid obesity due to excess calories Schizophrenia Surgical History H/O right knee surgery History of appendectomy History of tubal ligation Family History Family History Father Throat cancer Mother CVA (cerebral vascular accident) Brother Drug overdose Sister No problems noted. Sister No problems noted. Son No problems noted. Son No problems noted. Social History 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: Foster Family Household Members Other:: Lanny Soto, Inocencious Soto, - foster parents Housing: Apartment Do you presently have visiting nurse or other home services: Yes (Meds administered by [facility]) Unable to assess alcohol history related to: Unknown Alcohol intake: never Patient Tobacco Use Status: Never used Tobacco Tobacco use type: Cigarette Cigarettes Per Day: 10 e-Cigarette/Vaping Use: Never Used Second Hand Smoke Exposure: No Advance Directives: No Advance Directives Information Provided: Yes Advance Directives Date on File: 03/03/14 Patient : No service: No Current occupational status: disabled Sexual orientation: Don't Know Physical Exam Vital Signs: Vital Signs: Last Vital Signs Temp 98 F 10/20/22 06:08 Pulse 86 10/20/22 06:08 Resp 16 10/20/22 06:08 BP 140/77 H 10/20/22 06:08 Pulse Ox 92 10/20/22 06:08 O2 Del Method 10/20/22 06:08 O2 Flow Rate 2 10/20/22 06:08 Oxygen Flow Rate 2 10/20/22 01:12 BMI result Body Mass Index 33.3 Const: Other: Patient was sleeping when I went into the room, when she woke up she was initially somnolent but then became more awake and was able answer questions. She does not appear to be in distress HEENT: Head: Yes normal to inspection, Yes normocephalic and Yes atraumatic Ears: external ears normal General nose exam: Normal external nose present Face and sinus: Yes normal facial exam Mouth: Normal oral and palatal mucosa present Throat: Yes posterior oropharynx normal Eyes: General: appearance normal, both eyes and all related structures Pupils: Equal, round and reactive pupils present Neck: Neck: Yes normal visual inspection, Yes no lymphadenopathy, Yes trachea midline and Yes supple Chest: Chest palpation & inspection: normal inspection of the chest and normal palpation of entire chest wall Resp: Effort & Inspection: normal respiratory effort and able to speak in complete sentences Auscultation: no rales, rhonchi (Diffuse rhonchi) and no wheezes Cardio: Rate: regular rate Rhythm: regular rhythm Heart sounds: S1 normal heart sound present, S2 normal heart sound present and no murmurs GI: Inspection: Yes normal to inspection Palpation (GI): Soft to palpation, nontender and no guarding Auscultation: normal bowel sounds : General: Yes no CVA tenderness Back/Spine/Pelvis: Back: no CVA tenderness Skin: General skin exam: no rashes or lesions noted Neuro: Cranial nerves: Yes Equal, round and reactive pupils present Cognition (Neuro): normal cognition Motor exam (neuro): 5/5 motor strength present throughout Extrem: General: Yes normal to inspection Psych: Appearance: grossly normal Speech and movement: Normal speech and movement present Affect: normal affect Attitude: cooperative Medications Administered Discontinued Medications Generic Name Dose Route Start Last Admin Trade Name Freq PRN Reason Stop Dose Admin Doxycycline Monohydrate 100 mg 10/20/22 07:22 10/20/22 07:28 Doxycycline Monohydrate 100 Mg Capsule PO 10/20/22 07:23 100 mg ONCE ONE Administration Medical Decision Making Medical Decision Making MDM Narrative: 57-year-old female who presents emergency department for evaluation of cough productive of dark brown sputum, shortness of breath and dyspnea exertion x3 d ays. Patient reported that she was seen at at [facility] and diagnosed with pneumonia. She reports that she was started on prednisone. Patient's vital signs revealed an elevated blood pressure of 152/72 with an elevated heart rate of 100. Respiratory rate was normal at 18. O2 sat was 90% on room air but the patient does have COPD. Patient's lung exam did reveal diffuse rhonchi with no wheezing or rales. My independent interpretation patient's laboratory evaluation [place] as follows: [place] [address] and high sensitive troponin I was below detectable limits. Twelve EKG was normal and unchanged from previous. Patient's COVID-19, influenza and RSV were negative. Urinalysis was positive for blood microscopic revealed 3-5 WBCs.. The patient's presentation is consistent with acute bronchitis. She was advised to continue taking prednisone. She was started on doxycycline 100 mg q.12 hours x7 days. She was given her 1st dose in the emergency department. She was given printed and verbal instructions advised to follow-up with her PCP for re- evaluation and return if worse. Differential Diagnosis Differential diagnosis includes was not limited to pneumonia, bronchitis, acute viral syndrome, myocardial infarction Lab Data [facility] Lab Attestation statement: I reviewed the patient's lab results. Please see [facility] for my interpretation of the patient's laboratory data 10/20/22 01:52 10/20/22 01:52 Labs: Lab Results 10/20/22 10/20/22 10/20/22 Range/Units 01:52 01:52 01:52 WBC 11.6 H (4.8-10.8) X10*3/uL RBC 3.71 L (4.20-5.50) X10*6/uL Hgb 10.3 L (12.0-16.0) g/dl Hct 32.9 L (37.0-47.0) % MCV 88.7 (80.0-98.0) fL MCH 27.8 (27.0-33.0) pg MCHC 31.3 (31.0-35.0) g/dl RDW 16.5 H (11.0-16.0) % Plt Count 250 (160-400) X10*3/uL MPV 11.8 (9.4-12.3) fL Immature Gran % (Auto) 1.6 H (0.0-0.4) % Neut % (Auto) 72.1 (45-73) % Lymph % (Auto) 18.7 L (20-40) % [place] % (Auto) 7.4 (2-11) % Eos % (Auto) 0.0 (0-4) % Baso % (Auto) 0.2 (0-2) % Lymph # (Auto) 2.2 (1.2-4.9) X10*3/uL [place] # (Auto) 0.9 (0.1-1.2) X10*3/uL Eos # (Auto) 0.0 (0.0-0.4) X10*3/uL Baso # (Auto) 0.0 (0.0-0.2) X10*3/uL Abs Immat Gran (auto) 0.19 H (0.00-0.03) X10*3/uL Absolute Neuts (auto) 8.4 H (2.0-8.3) x10*3/uL Absolute Nucleated RBC 0.020 H (0.0-0.012) X10*3/uL Nucleated RBC % (auto) 0.2 (0.0-0.2) /100WBC Sodium 141 (135-145) mmol/L Potassium 4.7 (3.3-5.1) mmol/L Chloride 101 (96-108) mmol/L Carbon Dioxide 26 (22-29) mmol/L Anion Gap 19 (12-20) BUN 15 (9-16) mg/dL Creatinine 0.59 (0.5-1.4) mg/dL Estim Creat Clear Calc 104.7 Estimated GFR > 60 Random Glucose 120 H (60-115) mg/dL Calcium 9.3 (8.4-10.2) mg/dL Total Bilirubin 0.3 (0.0-1.0) mg/dL AST 32 H (5-31) U/L ALT 46 H (0-31) U/L Alkaline Phosphatase 73 (39-117) U/L Troponin I High Sens < 3.5 (<3.5-17.0) ng/L Total Protein 7.0 (6.5-8.0) g/dL Albumin 3.9 (3.5-5.0) g/dL Urine Color Urine Appearance Urine pH (5.0-9.0) Ur Specific [place] (1.005-1.025) Urine Protein (Neg-Trace) mg/dL Urine Glucose (UA) (Negative) mg/dL Urine Ketones (Negative) mg/dL Urine Blood (Negative) Urine Nitrite (Negative) Ur Leukocyte Esterase (Negative) Urine RBC (0-2) /HPF Urine WBC (0-5) /HPF Ur Squamous Epith Cells (0-2) /HPF Urine Bacteria (None Seen) Hyaline Casts (0-2) /LPF Influenza Type A (PCR) (Negative) Influenza Type B (PCR) (Negative) RSV RNA Qual (PCR) (Negative) SARS-CoV-2 RNA (RT-PCR) (Negative) 10/20/22 10/20/22 Range/Units 02:17 02:47 WBC (4.8-10.8) X10*3/uL RBC (4.20-5.50) X10*6/uL Hgb (12.0-16.0) g/dl Hct (37.0-47.0) % MCV (80.0-98.0) fL MCH (27.0-33.0) pg MCHC (31.0-35.0) g/dl RDW (11.0-16.0) % Plt Count (160-400) X10*3/uL MPV (9.4-12.3) fL Immature Gran % (Auto) (0.0-0.4) % Neut % (Auto) (45-73) % Lymph % (Auto) (20-40) % [place] % (Auto) (2-11) % Eos % (Auto) (0-4) % Baso % (Auto) (0-2) % Lymph # (Auto) (1.2-4.9) X10*3/uL [place] # (Auto) (0.1-1.2) X10*3/uL Eos # (Auto) (0.0-0.4) X10*3/uL Baso # (Auto) (0.0-0.2) X10*3/uL Abs Immat Gran (auto) (0.00-0.03) X10*3/uL Absolute Neuts (auto) (2.0-8.3) x10*3/uL Absolute Nucleated RBC (0.0-0.012) X10*3/uL Nucleated RBC % (auto) (0.0-0.2) /100WBC Sodium (135-145) mmol/L Potassium (3.3-5.1) mmol/L Chloride (96-108) mmol/L Carbon Dioxide (22-29) mmol/L Anion Gap (12-20) BUN (9-16) mg/dL Creatinine (0.5-1.4) mg/dL Estim Creat Clear Calc Estimated GFR Random Glucose (60-115) mg/dL Calcium (8.4-10.2) mg/dL Total Bilirubin (0.0-1.0) mg/dL AST (5-31) U/L ALT (0-31) U/L Alkaline Phosphatase (39-117) U/L Troponin I High Sens (<3.5-17.0) ng/L Total Protein (6.5-8.0) g/dL Albumin (3.5-5.0) g/dL Urine Color Yellow Urine Appearance Clear Urine pH 6.0 (5.0-9.0) Ur Specific [place] 1.015 (1.005-1.025) Urine Protein Negative (Neg-Trace) mg/dL Urine Glucose (UA) Negative (Negative) mg/dL Urine Ketones Trace (Negative) mg/dL Urine Blood Trace H (Negative) Urine Nitrite Negative (Negative) Ur Leukocyte Esterase Negative (Negative) Urine RBC 3-5 H (0-2) /HPF Urine WBC 0-5 (0-5) /HPF Ur Squamous Epith Cells 0-2 (0-2) /HPF Urine Bacteria None Seen (None Seen) Hyaline Casts 0-2 (0-2) /LPF Influenza Type A (PCR) NEGATIVE (Negative) Influenza Type B (PCR) NEGATIVE (Negative) RSV RNA Qual (PCR) NEGATIVE (Negative) SARS-CoV-2 RNA (RT-PCR) NEGATIVE (Negative) Independent Interpretation I performed an independent interpretation of an: EKG Interpretation: 12 EKG done at 0139: My independent interpretation of this EKG is as follows, normal sinus rhythm rate 96, normal CT interval QRS duration QTC interval, no ST segment elevation, no ST segment depression, no PACs, no PVCs, no T-wave abnormalities. This is a normal EKG. Compared to EKG dated 12/26/2021 there is no significant change. Radiology Impression Discussion of test interpretation with radiology: I have reviewed the radiologist's reading. Radiologist Impression: XR chest 2V IMPRESSION: No focal consolidation. Mildly prominent central vasculature. Dictated By:Kanu Durantigned By:<Electronically signed by Kanu Durant MD in [place]>10/20/22 0300 Discharge Plan Discharge Clinical Impression: Bronchitis Abdominal pain Qualifiers: Abdominal location: epigastric Qualified Code(s): R10.13 - Epigastric pain Patient Disposition: Home, Self-Care Instructions: Acute Bronchitis (ED) Additional Instructions: Your blood work was normal. Your EKG was normal. On your chest x-ray today, I do not see any evidence for pneumonia, the radiologist also felt that your chest x-ray was normal. I and concerned that you may have an infection of your breathing tubes (bronchitis). Continue taking the prednisone as prescribed by your provider. Take doxycycline 100 mg, 1 pill every 12 hours for 7 days Follow-up with your doctor in 2 days. Please return to the emergency department if your symptoms get worse or if you develop any symptoms that are concerning to you. Prescriptions: New doxycycline hyclate 100 mg tablet 100 mg PO Q12H 7 Days Qty: 14 0RF No Action lactulose [Generlac] 10 gram/15 mL solution 15 ml PO DAILY PRN (Reason: Constipation) lisinopril 10 mg tablet 10 mg PO QPM 30 Days Qty: 30 0RF divalproex 500 mg tablet extended release 24 hr 1,500 mg PO BEDTIME 30 Days Qty: 90 0RF omeprazole 20 mg capsule,delayed release(DR/EC) 20 mg PO BID 30 Days Qty: 60 0RF montelukast 10 mg tablet 10 mg PO DAILY 30 Days Qty: 30 0RF clozapine 25 mg tablet 50 mg PO QAM 30 Days Qty: 60 0RF fluoxetine 20 mg capsule 20 mg PO QAM 30 Days Qty: 30 0RF Flovent HFA 110 mcg/actuation HFA aerosol inhaler 2 puff PO BID 30 Days Qty: 12 0RF tramadol 50 mg tablet 1 tab PO Q6H PRN (Reason: Pain) polyethylene glycol 3350 17 gram Powder In Packet 17 g PO TID 30 Days Qty: 1600 0RF ondansetron 4 mg tablet,disintegrating 4 mg PO Q6-8H PRN (Reason: nausea and vomiting) Qty: 14 0RF sennosides [senna] 8.6 mg tablet 2 tab PO BEDTIME docusate sodium 100 mg capsule 1 cap PO BID PRN (Reason: Constipation) bisacodyl 5 mg tablet,delayed release (DR/EC) 2 tab PO BEDTIME albuterol sulfate [ProAir HFA] 90 mcg/actuation HFA aerosol inhaler 2 puff PO Q4-6H PRN (Reason: Wheezing) clonazepam 1 mg Tablet 0.5 mg PO QAM clonazepam [Klonopin] 1 mg Tablet 1 mg PO BEDTIME clozapine 100 mg tablet 3 tab PO BEDTIME polyethylene glycol 3350 17 gram powder in packet 17 g PO TID metformin 500 mg tablet extended release 24 hr 500 mg PO BID (DME) cane Device See Rx Instructions .MEDSUPPLY Qty: 1 0RF Rx Instructions: Cane
[2022-10-20] MEDS: Doxycycline Monohydrate 100 MG CAPSULE PO (07:28)
== END 2022-10-20 07:45 | disposition home or self-care (01) ==
PROVIDERS: Emergency Provider Emergency Medicine Emergency Medical Services
DX: J40 Bronchitis, not specified as acute or chronic (principal); R07.89 Other chest pain; M54.50 Low back pain, unspecified; R10.13 Epigastric pain; Z20.822 Contact with and (suspected) exposure to COVID-19; Z20.828 Contact with and (suspected) exposure to other viral communicable diseases; Z79.899 Other long term (current) drug therapy
CPT/HCPCS: 0241U; 36415; 71046; 80053; 81001; 84484; 85025; 93005; 99284; 99285

== ENCOUNTER 2022-11-02 10:18 | Outpatient (REF) | payer MEDICAID, SELFPAY ==
[2022-11-02 10:42] LABS: MANUAL DIFF FLAG NO
[2022-11-02 10:52] LABS: Basophils Percent Auto 0.3 % (0-2); Eosinophils Absolute Auto 0.1 X10*3/uL (0.0-0.4); Eosinophils Percent Auto 0.8 % (0-4); Hematocrit 38.2 % (37.0-47.0); Hemoglobin 11.5 g/dl (12.0-16.0); Imm Gran Abs Auto 0.05 X10*3/uL (0.00-0.03); Imm Gran Pct Auto 0.5 % (0.0-0.4); Lymphocytes Absolute Auto 2.9 X10*3/uL (1.2-4.9); Lymphocytes Percent Auto 27.7 % (20-40); Mean Corpuscular HGB Conc 30.1 g/dl (31.0-35.0); Mean Corpuscular Hemoglobin 27.1 pg (27.0-33.0); Mean Corpuscular Volume 90.1 fL (80.0-98.0); Mean Platelet Volume 10.7 fL (9.4-12.3); Monocytes Absolute Auto 0.8 X10*3/uL (0.1-1.2); Monocytes Percent Auto 7.1 % (2-11); Neut%MD 63.6 %; Neutrophils Absolute Auto 6.7 x10*3/uL (2.0-8.3); Neutrophils Percent Auto 63.6 % (45-73); Platelet Count 219 X10*3/uL (160-400); Red Blood Count 4.24 X10*6/uL (4.20-5.50); Red Cell Distribution Width 16.4 % (11.0-16.0); WBCANC 10.6 X10*3/uL; White Blood Count 10.6 X10*3/uL (4.8-10.8)
== END 2022-11-02 10:19 | disposition home or self-care (01) ==
LOC: HO.LAB 10:18
PROVIDERS: PCP Internal Medicine; Visit Provider Clinical Nurse Specialist Psychiatric/Mental Health, Adult
DX: Z79.899 Other long term (current) drug therapy (principal)
CPT/HCPCS: 36415; 85025

== ENCOUNTER 2022-11-12 20:25 | Emergency (ER) | payer MEDICAID, SELFPAY ==
--- NOTE | ~2022-11-12 | CT_ITS ---
EXAMINATION: CT ABDOMEN AND PELVIS WITHOUT CONTRAST CLINICAL INFORMATION: Upper abdominal pain COMPARISON: Multiple prior CT scans of the abdomen pelvis most recently 09/10/2022 TECHNIQUE: Multidetector volumetric imaging was performed from the superior aspect of the liver through the pubic symphysis. Sagittal and coronal reformatted images were obtained on the technologist's workstation. This CT examination was performed using dose optimization techniques as appropriate, variously including the following: *Automated exposure control *Adjustment of mA and/or kV according to patient size (this includes techniques or standardized protocols for targeted exams where dose is matched to indication/reason for exam; i.e. extremities or head) *Use of iterative reconstruction technique DLP: 663 mGy-cm FINDINGS: LUNG BASES: The visualized lung bases are unremarkable. LIVER, GALLBLADDER, AND BILIARY TREE: The liver is enlarged and demonstrates decreased attenuation consistent with hepatic steatosis. Focal fatty sparing is present around the gallbladder. No focal hepatic lesion or biliary ductal dilatation is present. The gallbladder is unremarkable with no evidence of radiopaque gallstones, gallbladder wall thickening, or obvious pericholecystic inflammatory changes. PANCREAS: Unremarkable. SPLEEN: Unremarkable. ADRENAL GLANDS: Unremarkable. KIDNEYS AND URETERS: The kidneys are normal in size, shape, and attenuation. No hydronephrosis, hydroureter, or calculi seen. No perinephric stranding. BLADDER: Unremarkable. GASTROINTESTINAL TRACT: The small and large bowel are unremarkable. The appendix is not identified but there is no evidence of appendicitis. ABDOMINAL WALL: No significant hernia is appreciated. LYMPH NODES: There are small shotty retroperitoneal lymph nodes without adenopathy. VASCULAR: Unremarkable. PELVIC VISCERA: The uterus and adnexa are unremarkable. OSSEOUS STRUCTURES: Unremarkable. CT/CT abdomen pelvis wo IV con IMPRESSION: 1. A cause for the patient's upper abdominal pain has not been found. 2. Incidental note made of an enlarged fatty liver. Fleischner guidelines were followed.
[2022-11-12 20:33] VITALS: BP 125/78; PULSE 104; RESP 20; TEMP 36.8; O2SAT 95; BMI 33.8
--- NOTE | 2022-11-12 20:34 | ED.GENADULT ---
HPI - General Adult General Chief complaint: Abdominal Pain <PATTIE Casas - Last Filed: 11/13/22 13:27> Stated complaint: abd pain <PATTIE Casas - Last Filed: 11/13/22 13:27> Time Seen by Provider: 11/12/22 22:23 <PATTIE Casas - Last Filed: 11/13/22 13:27> Source: patient <Donnie Cedillo MD - Last Filed: 11/13/22 01:30> Mode of arrival: ambulatory <Donnie Cedillo MD - Last Filed: 11/13/22 01:30> Limitations: no limitations <Donnie Cedillo MD - Last Filed: 11/13/22 01:30> History of Present Illness HPI narrative: Patient history of COPD, hypertension, anxiety comes here for 2 days of epigastric pain with nausea unable to eat any solid food no vomiting no diarrhea had low-grade temperature 100.5 degrees yesterday. Patient never had similar pain in the past pain is dull no radiation of pain no story of ulcers no history of gallstones history of kidney stones no history of melena <Donnie Cedillo MD - Last Filed: 11/13/22 01:30> Related Data Home medications: Home Medications Medication Instructions Recorded Confirmed lactulose 10 gram/15 mL oral 15 ml PO DAILY PRN Constipation 07/07/21 12/24/21 solution (Generlac) albuterol sulfate 90 mcg/actuation 2 puff PO Q4-6H PRN Wheezing 08/11/21 12/24/21 aerosol inhaler (ProAir HFA) bisacodyl 5 mg tablet,delayed 2 tab PO BEDTIME 08/11/21 12/24/21 release clonazepam 1 mg tablet 0.5 mg PO QAM 08/11/21 12/24/21 clonazepam 1 mg tablet (Klonopin) 1 mg PO BEDTIME 08/11/21 12/24/21 docusate sodium 100 mg capsule 1 cap PO BID PRN Constipation 08/11/21 12/26/21 sennosides 8.6 mg tablet (senna) 2 tab PO BEDTIME 08/11/21 12/24/21 tramadol 50 mg tablet 1 tab PO Q6H PRN Pain 09/27/21 12/24/21 clozapine 100 mg tablet 3 tab PO BEDTIME 12/24/21 12/24/21 polyethylene glycol 3350 17 gram 17 g PO TID 12/24/21 12/24/21 oral powder packet metformin 500 mg tablet,extended 500 mg PO BID 05/03/22 release 24 hr Previous Rx's Medication Instructions Recorded clozapine 25 mg tablet 50 mg PO QAM 30 days #60 tabs 07/12/21 divalproex 500 mg tablet,extended 1,500 mg PO BEDTIME 30 days #90 07/12/21 release 24 hr tabs fluoxetine 20 mg capsule 20 mg PO QAM 30 days #30 caps 07/12/21 fluticasone propionate 110 2 puff PO BID 30 days #12 grams 07/12/21 mcg/actuation HFA aerosol inhaler (Flovent HFA) lisinopril 10 mg tablet 10 mg PO QPM 30 days #30 tabs 07/12/21 montelukast 10 mg tablet 10 mg PO DAILY 30 days #30 tabs 07/12/21 omeprazole 20 mg capsule,delayed 20 mg PO BID 30 days #60 caps 07/12/21 release polyethylene glycol 3350 17 gram 17 g PO TID 30 days #1,600 grams 10/12/21 oral powder packet cane #1 ea 05/03/22 ondansetron 4 mg disintegrating 4 mg PO Q6-8H PRN nausea and 09/10/22 tablet vomiting #14 tabs doxycycline hyclate 100 mg tablet 100 mg PO Q12H 7 days #14 tabs 10/20/22 dicyclomine 20 mg tablet 20 mg PO QID PRN abdominal pain 11/13/22 #20 tabs sucralfate 1 gram tablet 1 g PO TID #90 tabs 11/13/22 <PATTIE Casas - Last Filed: 11/13/22 13:27> Allergies/adverse reactions: Allergies Allergy/AdvReac Type Severity Reaction Status Date / Time diazepam [From Valium] Allergy Unknown Unknown Verified 11/12/22 20:33 haloperidol [From Haldol] Allergy Unknown Unknown Verified 11/12/22 20:33 Penicillins Allergy Unknown Unknown Verified 11/12/22 20:33 risperidone [From Risperdal] Allergy Unknown Unknown Verified 11/12/22 20:33 aspirin [Aspirin] AdvReac Intermediate Vomiting Verified 11/12/22 20:33 trazodone [TRAZODONE] AdvReac Intermediate NAUSEA & Verified 11/12/22 20:33 VOMITING <PATTIE Casas - Last Filed: 11/13/22 13:27> Review of Systems Review of Systems: Yes all other systems are reviewed and are negative <Donnie Cedillo MD - Last Filed: 11/13/22 01:30> [facility] Past Medical History Medical History: Medical History Anxiety Asthma Chronic mental illness COPD (chronic obstructive pulmonary disease) Diabetes Hyperlipidemia Morbid obesity due to excess calories Schizophrenia <PATTIE Casas - Last Filed: 11/13/22 13:27> Surgical History: Surgical History H/O right knee surgery History of appendectomy History of tubal ligation <PATTIE Casas - Last Filed: 11/13/22 13:27> Family History Family History: Family History Father Throat cancer Mother CVA (cerebral vascular accident) Brother Drug overdose Sister No problems noted. Sister No problems noted. Son No problems noted. Son No problems noted. <PATTIE Casas - Last Filed: 11/13/22 13:27> Social History Social History: 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: Foster Family Household Members Other:: Lanny Soto, Inocencio Soto, - foster parents Housing: Apartment Do you presently have visiting nurse or other home services: Yes (Meds administered by [facility]) Unable to assess alcohol history related to: Unknown Alcohol intake: never Patient Tobacco Use Status: Never used Tobacco Tobacco use type: Cigarette Cigarettes Per Day: 10 e-Cigarette/Vaping Use: Never Used Second Hand Smoke Exposure: No Advance Directives: No Advance Directives Information Provided: Yes Advance Directives Date on File: 03/03/14 service: No Current occupational status: disabled Sexual orientation: Don't Know <PATTIE Casas - Last Filed: 11/13/22 13:27> Physical Exam ED Vital Signs: Vital Signs - 24 hr 11/12/22 20:33 11/12/22 23:56 Temperature 98.2 F 98.3 F Pulse Rate 104 H 92 Respiratory Rate 20 16 Blood Pressure 125/78 153/81 H Pulse Oximetry 95 93 Oxygen Delivery Method Room Air Room Air BMI result Body Mass Index 33.8 <PATTIE Casas - Last Filed: 11/13/22 13:27> Vital Signs - 24 hr 11/12/22 20:33 11/12/22 23:56 Temperature 98.2 F 98.3 F Pulse Rate 104 H 92 Respiratory Rate 20 16 Blood Pressure 125/78 153/81 H Pulse Oximetry 95 93 Oxygen Delivery Method Room Air Room Air BMI result Body Mass Index 33.8 <Donnie Cedillo MD - Last Filed: 11/13/22 01:30> Appearance: Alert. Oriented X3. No acute distress. Eyes: No pallor/ icterus ENT: Pharynx normal. Oral Mucosa moist Neck: Normal inspection. Neck supple. CVS: Normal heart rate and rhythm. Pulses normal. Respiratory: No respiratory distress. Equal air entry bilateral, no wheezing/rales/rhonchi Abdomen: Soft , tender in epigastric area, Bowel sounds are present, no mass palpable, no CVA tenderness Skin: Skin warm and dry. Normal skin color. Normal skin turgor. Extremities: No lower extremity edema. No calf tenderness Neuro: Oriented X 3. <Donnie Cedillo MD - Last Filed: 11/13/22 01:30> Course Course Course Narrative: RME: 57 yold patient presents to the ED for upper abdominal pain/epigastric since yesterday. no nausea, vomitting, flank pain, or symptoms. patient has normal bowel symptoms. labs/EKG ordered. positive epigastric tendernss on palpation. negative stout or RUQ pain. negative lower abdominal pain <PATTIE Casas - Last Filed: 11/13/22 13:27> Medications Administered Discontinued Medications Generic Name Dose Route Start Last Admin Trade Name Freq PRN Reason Stop Dose Admin Dicyclomine HCl 20 mg 11/13/22 00:39 11/13/22 00:59 Dicyclomine Hcl 10 Mg Capsule PO 11/13/22 00:40 20 mg ONCE ONE Administration Famotidine 20 mg 11/12/22 23:03 11/12/22 23:14 Famotidine/Pf 20 Mg/2 Ml Vial IVPUSH 11/12/22 23:04 20 mg ONCE ONE Administration Lidocaine HCl 15 ml 11/13/22 00:39 11/13/22 01:00 Lidocaine Hcl Viscous 2 % 15 Ml Solution MUCOUS MEM 11/13/22 00:40 15 ml ONCE ONE Administration Morphine Sulfate 4 mg 11/12/22 23:02 11/12/22 23:14 Morphine Sulfate 4 Mg/Ml Cartridge IVPUSH 11/12/22 23:03 4 mg ONCE ONE Administration Protocol Ondansetron HCl 4 mg 11/12/22 23:02 11/12/22 23:14 Ondansetron Hcl 4 Mg/2 Ml Vial IVPUSH 11/12/22 23:03 4 mg ONCE ONE Administration <PATTIE Casas - Last Filed: 11/13/22 13:27> Medications Administered Discontinued Medications Generic Name Dose Route Start Last Admin Trade Name Julioq PRN Reason Stop Dose Admin Dicyclomine HCl 20 mg 11/13/22 00:39 11/13/22 00:59 Dicyclomine Hcl 10 Mg Capsule PO 11/13/22 00:40 20 mg ONCE ONE Administration Famotidine 20 mg 11/12/22 23:03 11/12/22 23:14 Famotidine/Pf 20 Mg/2 Ml Vial IVPUSH 11/12/22 23:04 20 mg ONCE ONE Administration Lidocaine HCl 15 ml 11/13/22 00:39 11/13/22 01:00 Lidocaine Hcl Viscous 2 % 15 Ml Solution MUCOUS MEM 11/13/22 00:40 15 ml ONCE ONE Administration Morphine Sulfate 4 mg 11/12/22 23:02 11/12/22 23:14 Morphine Sulfate 4 Mg/Ml Cartridge IVPUSH 11/12/22 23:03 4 mg ONCE ONE Administration Protocol Ondansetron HCl 4 mg 11/12/22 23:02 11/12/22 23:14 Ondansetron Hcl 4 Mg/2 Ml Vial IVPUSH 11/12/22 23:03 4 mg ONCE ONE Administration <Donnie Cedillo MD - Last Filed: 11/13/22 01:30> Medical Decision Making Medical Decision Making MDM Narrative: Patient with nonspecific epigastric pain with no history of ulcer or gallstone with the CT scan to rule out cholelithiasis/pancreatitis/mass Patient's CT scan of head done and negative for any acute likely patient has IBS/gastritis will give her Bentyl and lidocaine viscous Patient feeling much better at this time <Donnie Cedillo MD - Last Filed: 11/13/22 01:30> Lab Data [facility] Lab Attestation statement: I reviewed the patient's lab results. <Donnie Cedillo MD - Last Filed: 11/13/22 01:30> Result Diagrams: 11/12/22 21:06 11/12/22 21:06 <PATTIE Casas - Last Filed: 11/13/22 13:27> Labs: Lab Results 11/12/22 11/12/22 11/12/22 Range/Units 21:06 21:06 21:06 WBC 9.7 (4.8-10.8) X10*3/uL RBC 4.02 L (4.20-5.50) X10*6/uL Hgb 11.3 L (12.0-16.0) g/dl Hct 36.2 L (37.0-47.0) % MCV 90.0 (80.0-98.0) fL MCH 28.1 (27.0-33.0) pg MCHC 31.2 (31.0-35.0) g/dl RDW 16.8 H (11.0-16.0) % Plt Count 305 D (160-400) X10*3/uL MPV 11.3 (9.4-12.3) fL Immature Gran % (Auto) 0.6 H (0.0-0.4) % Neut % (Auto) 51.7 (45-73) % Lymph % (Auto) 36.8 (20-40) % [place] % (Auto) 9.8 (2-11) % Eos % (Auto) 0.9 (0-4) % Baso % (Auto) 0.2 (0-2) % Lymph # (Auto) 3.6 (1.2-4.9) X10*3/uL [place] # (Auto) 1.0 (0.1-1.2) X10*3/uL Eos # (Auto) 0.1 (0.0-0.4) X10*3/uL Baso # (Auto) 0.0 (0.0-0.2) X10*3/uL Abs Immat Gran (auto) 0.06 H (0.00-0.03) X10*3/uL Absolute Neuts (auto) 5.0 (2.0-8.3) x10*3/uL Absolute Nucleated RBC 0.000 (0.0-0.012) X10*3/uL Nucleated RBC % (auto) 0.0 (0.0-0.2) /100WBC PT 11.6 (10.0-13.1) SEC INR 1.0 (0.9-1.1) APTT 45.2 H (26.0-36.4) SEC Sodium 139 (135-145) mmol/L Potassium 4.3 (3.3-5.1) mmol/L Chloride 104 (96-108) mmol/L Carbon Dioxide 25 (22-29) mmol/L Anion Gap 14 (12-20) BUN 13 (9-16) mg/dL Creatinine 0.58 (0.5-1.4) mg/dL Estim Creat Clear Calc 107.4 Estimated GFR > 60 Random Glucose 123 H (60-115) mg/dL Calcium 8.8 (8.4-10.2) mg/dL Total Bilirubin 0.2 (0.0-1.0) mg/dL AST 14 (5-31) U/L ALT 19 (0-31) U/L Alkaline Phosphatase 70 (39-117) U/L Troponin I High Sens (<3.5-17.0) ng/L Total Protein 6.5 (6.5-8.0) g/dL Albumin 3.8 (3.5-5.0) g/dL Lipase 25 (8-78) U/L Urine Color Urine Appearance Urine pH (5.0-9.0) Ur Specific [place] (1.005-1.025) Urine Protein (Neg-Trace) mg/dL Urine Glucose (UA) (Negative) mg/dL Urine Ketones (Negative) mg/dL Urine Blood (Negative) Urine Nitrite (Negative) Ur Leukocyte Esterase (Negative) Urine RBC (0-2) /HPF Urine WBC (0-5) /HPF Ur Squamous Epith Cells (0-2) /HPF Urine Bacteria (None Seen) Hyaline Casts (0-2) /LPF Influenza Type A (PCR) (Negative) Influenza Type B (PCR) (Negative) RSV RNA Qual (PCR) (Negative) SARS-CoV-2 RNA (RT-PCR) (Negative) 11/12/22 11/12/22 11/12/22 Range/Units 21:06 21:06 21:11 WBC (4.8-10.8) X10*3/uL RBC (4.20-5.50) X10*6/uL Hgb (12.0-16.0) g/dl Hct (37.0-47.0) % MCV (80.0-98.0) fL MCH (27.0-33.0) pg MCHC (31.0-35.0) g/dl RDW (11.0-16.0) % Plt Count (160-400) X10*3/uL MPV (9.4-12.3) fL Immature Gran % (Auto) (0.0-0.4) % Neut % (Auto) (45-73) % Lymph % (Auto) (20-40) % [place] % (Auto) (2-11) % Eos % (Auto) (0-4) % Baso % (Auto) (0-2) % Lymph # (Auto) (1.2-4.9) X10*3/uL [place] # (Auto) (0.1-1.2) X10*3/uL Eos # (Auto) (0.0-0.4) X10*3/uL Baso # (Auto) (0.0-0.2) X10*3/uL Abs Immat Gran (auto) (0.00-0.03) X10*3/uL Absolute Neuts (auto) (2.0-8.3) x10*3/uL Absolute Nucleated RBC (0.0-0.012) X10*3/uL Nucleated RBC % (auto) (0.0-0.2) /100WBC PT (10.0-13.1) SEC INR (0.9-1.1) APTT (26.0-36.4) SEC Sodium (135-145) mmol/L Potassium (3.3-5.1) mmol/L Chloride (96-108) mmol/L Carbon Dioxide (22-29) mmol/L Anion Gap (12-20) BUN (9-16) mg/dL Creatinine (0.5-1.4) mg/dL Estim Creat Clear Calc Estimated GFR Random Glucose (60-115) mg/dL Calcium (8.4-10.2) mg/dL Total Bilirubin (0.0-1.0) mg/dL AST (5-31) U/L ALT (0-31) U/L Alkaline Phosphatase (39-117) U/L Troponin I High Sens < 3.5 (<3.5-17.0) ng/L Total Protein (6.5-8.0) g/dL Albumin (3.5-5.0) g/dL Lipase (8-78) U/L Urine Color Yellow Urine Appearance Clear Urine pH 7.5 (5.0-9.0) Ur Specific [place] 1.025 (1.005-1.025) Urine Protein Negative (Neg-Trace) mg/dL Urine Glucose (UA) Negative (Negative) mg/dL Urine Ketones Trace (Negative) mg/dL Urine Blood Negative (Negative) Urine Nitrite Negative (Negative) Ur Leukocyte Esterase Trace H (Negative) Urine RBC 3-5 H (0-2) /HPF Urine WBC 0-5 (0-5) /HPF Ur Squamous Epith Cells 3-5 (0-2) /HPF Urine Bacteria None Seen (None Seen) Hyaline Casts 0-2 (0-2) /LPF Influenza Type A (PCR) NEGATIVE (Negative) Influenza Type B (PCR) NEGATIVE (Negative) RSV RNA Qual (PCR) NEGATIVE (Negative) SARS-CoV-2 RNA (RT-PCR) NEGATIVE (Negative) <PATTIE Casas - Last Filed: 11/13/22 13:27> Lab Results 11/12/22 11/12/22 11/12/22 Range/Units 21:06 21:06 21:06 WBC 9.7 (4.8-10.8) X10*3/uL RBC 4.02 L (4.20-5.50) X10*6/uL Hgb 11.3 L (12.0-16.0) g/dl Hct 36.2 L (37.0-47.0) % MCV 90.0 (80.0-98.0) fL MCH 28.1 (27.0-33.0) pg MCHC 31.2 (31.0-35.0) g/dl RDW 16.8 H (11.0-16.0) % Plt Count 305 D (160-400) X10*3/uL MPV 11.3 (9.4-12.3) fL Immature Gran % (Auto) 0.6 H (0.0-0.4) % Neut % (Auto) 51.7 (45-73) % Lymph % (Auto) 36.8 (20-40) % [place] % (Auto) 9.8 (2-11) % Eos % (Auto) 0.9 (0-4) % Baso % (Auto) 0.2 (0-2) % Lymph # (Auto) 3.6 (1.2-4.9) X10*3/uL [place] # (Auto) 1.0 (0.1-1.2) X10*3/uL Eos # (Auto) 0.1 (0.0-0.4) X10*3/uL Baso # (Auto) 0.0 (0.0-0.2) X10*3/uL Abs Immat Gran (auto) 0.06 H (0.00-0.03) X10*3/uL Absolute Neuts (auto) 5.0 (2.0-8.3) x10*3/uL Absolute Nucleated RBC 0.000 (0.0-0.012) X10*3/uL Nucleated RBC % (auto) 0.0 (0.0-0.2) /100WBC PT 11.6 (10.0-13.1) SEC INR 1.0 (0.9-1.1) APTT 45.2 H (26.0-36.4) SEC Sodium 139 (135-145) mmol/L Potassium 4.3 (3.3-5.1) mmol/L Chloride 104 (96-108) mmol/L Carbon Dioxide 25 (22-29) mmol/L Anion Gap 14 (12-20) BUN 13 (9-16) mg/dL Creatinine 0.58 (0.5-1.4) mg/dL Estim Creat Clear Calc 107.4 Estimated GFR > 60 Random Glucose 123 H (60-115) mg/dL Calcium 8.8 (8.4-10.2) mg/dL Total Bilirubin 0.2 (0.0-1.0) mg/dL AST 14 (5-31) U/L ALT 19 (0-31) U/L Alkaline Phosphatase 70 (39-117) U/L Troponin I High Sens (<3.5-17.0) ng/L Total Protein 6.5 (6.5-8.0) g/dL Albumin 3.8 (3.5-5.0) g/dL Lipase 25 (8-78) U/L Urine Color Urine Appearance Urine pH (5.0-9.0) Ur Specific [place] (1.005-1.025) Urine Protein (Neg-Trace) mg/dL Urine Glucose (UA) (Negative) mg/dL Urine Ketones (Negative) mg/dL Urine Blood (Negative) Urine Nitrite (Negative) Ur Leukocyte Esterase (Negative) Urine RBC (0-2) /HPF Urine WBC (0-5) /HPF Ur Squamous Epith Cells (0-2) /HPF Urine Bacteria (None Seen) Hyaline Casts (0-2) /LPF Influenza Type A (PCR) (Negative) Influenza Type B (PCR) (Negative) RSV RNA Qual (PCR) (Negative) SARS-CoV-2 RNA (RT-PCR) (Negative) 11/12/22 11/12/22 11/12/22 Range/Units 21:06 21:06 21:11 WBC (4.8-10.8) X10*3/uL RBC (4.20-5.50) X10*6/uL Hgb (12.0-16.0) g/dl Hct (37.0-47.0) % MCV (80.0-98.0) fL MCH (27.0-33.0) pg MCHC (31.0-35.0) g/dl RDW (11.0-16.0) % Plt Count (160-400) X10*3/uL MPV (9.4-12.3) fL Immature Gran % (Auto) (0.0-0.4) % Neut % (Auto) (45-73) % Lymph % (Auto) (20-40) % [place] % (Auto) (2-11) % Eos % (Auto) (0-4) % Baso % (Auto) (0-2) % Lymph # (Auto) (1.2-4.9) X10*3/uL [place] # (Auto) (0.1-1.2) X10*3/uL Eos # (Auto) (0.0-0.4) X10*3/uL Baso # (Auto) (0.0-0.2) X10*3/uL Abs Immat Gran (auto) (0.00-0.03) X10*3/uL Absolute Neuts (auto) (2.0-8.3) x10*3/uL Absolute Nucleated RBC (0.0-0.012) X10*3/uL Nucleated RBC % (auto) (0.0-0.2) /100WBC PT (10.0-13.1) SEC INR (0.9-1.1) APTT (26.0-36.4) SEC Sodium (135-145) mmol/L Potassium (3.3-5.1) mmol/L Chloride (96-108) mmol/L Carbon Dioxide (22-29) mmol/L Anion Gap (12-20) BUN (9-16) mg/dL Creatinine (0.5-1.4) mg/dL Estim Creat Clear Calc Estimated GFR Random Glucose (60-115) mg/dL Calcium (8.4-10.2) mg/dL Total Bilirubin (0.0-1.0) mg/dL AST (5-31) U/L ALT (0-31) U/L Alkaline Phosphatase (39-117) U/L Troponin I High Sens < 3.5 (<3.5-17.0) ng/L Total Protein (6.5-8.0) g/dL Albumin (3.5-5.0) g/dL Lipase (8-78) U/L Urine Color Yellow Urine Appearance Clear Urine pH 7.5 (5.0-9.0) Ur Specific [place] 1.025 (1.005-1.025) Urine Protein Negative (Neg-Trace) mg/dL Urine Glucose (UA) Negative (Negative) mg/dL Urine Ketones Trace (Negative) mg/dL Urine Blood Negative (Negative) Urine Nitrite Negative (Negative) Ur Leukocyte Esterase Trace H (Negative) Urine RBC 3-5 H (0-2) /HPF Urine WBC 0-5 (0-5) /HPF Ur Squamous Epith Cells 3-5 (0-2) /HPF Urine Bacteria None Seen (None Seen) Hyaline Casts 0-2 (0-2) /LPF Influenza Type A (PCR) NEGATIVE (Negative) Influenza Type B (PCR) NEGATIVE (Negative) RSV RNA Qual (PCR) NEGATIVE (Negative) SARS-CoV-2 RNA (RT-PCR) NEGATIVE (Negative) <Donnie Cedillo MD - Last Filed: 11/13/22 01:30> Discharge Plan Discharge Clinical Impression: Acute gastritis, Irritable bowel syndrome <PATTIE Casas - Last Filed: 11/13/22 13:27> Patient Disposition: Home, Self-Care <PATTIE Casas - Last Filed: 11/13/22 13:27> Instructions: Gastritis (ED), Irritable Bowel Syndrome (ED) <PATTIE Casas - Last Filed: 11/13/22 13:27> Additional Instructions: Continue omeprazole Avoid fried/greasy foods Take sucralfate 1 tablet 3 times a day before meals Bentyl for abdominal cramps as prescribed Follow with PCP Continuar con omeprazol Evite los alimentos fritos/grasosos [place] sucralfato 1 tableta 3 veces al d?a antes de las comidas Bentyl para los calambres abdominales seg?n lo prescrito Seguir con PCP <PATTIE Casas - Last Filed: 11/13/22 13:27> Prescriptions: New dicyclomine 20 mg tablet 20 mg PO QID PRN (Reason: abdominal pain) Qty: 20 0RF sucralfate 1 gram tablet 1 g PO TID Qty: 90 0RF No Action lactulose [Generlac] 10 gram/15 mL solution 15 ml PO DAILY PRN (Reason: Constipation) lisinopril 10 mg tablet 10 mg PO QPM 30 Days Qty: 30 0RF divalproex 500 mg tablet extended release 24 hr 1,500 mg PO BEDTIME 30 Days Qty: 90 0RF omeprazole 20 mg capsule,delayed release(DR/EC) 20 mg PO BID 30 Days Qty: 60 0RF montelukast 10 mg tablet 10 mg PO DAILY 30 Days Qty: 30 0RF clozapine 25 mg tablet 50 mg PO QAM 30 Days Qty: 60 0RF fluoxetine 20 mg capsule 20 mg PO QAM 30 Days Qty: 30 0RF Flovent HFA 110 mcg/actuation HFA aerosol inhaler 2 puff PO BID 30 Days Qty: 12 0RF tramadol 50 mg tablet 1 tab PO Q6H PRN (Reason: Pain) polyethylene glycol 3350 17 gram Powder In Packet 17 g PO TID 30 Days Qty: 1600 0RF ondansetron 4 mg tablet,disintegrating 4 mg PO Q6-8H PRN (Reason: nausea and vomiting) Qty: 14 0RF sennosides [senna] 8.6 mg tablet 2 tab PO BEDTIME docusate sodium 100 mg capsule 1 cap PO BID PRN (Reason: Constipation) bisacodyl 5 mg tablet,delayed release (DR/EC) 2 tab PO BEDTIME albuterol sulfate [ProAir HFA] 90 mcg/actuation HFA aerosol inhaler 2 puff PO Q4-6H PRN (Reason: Wheezing) clonazepam 1 mg Tablet 0.5 mg PO QAM clonazepam [Klonopin] 1 mg Tablet 1 mg PO BEDTIME clozapine 100 mg tablet 3 tab PO BEDTIME polyethylene glycol 3350 17 gram powder in packet 17 g PO TID doxycycline hyclate 100 mg tablet 100 mg PO Q12H 7 Days Qty: 14 0RF metformin 500 mg tablet extended release 24 hr 500 mg PO BID (DME) cane Device See Rx Instructions .MEDSUPPLY Qty: 1 0RF Rx Instructions: Cane <PATTIE Casas - Last Filed: 11/13/22 13:27> Interventions: ED Discharge Assessment Last Done: 11/13/22 01:47 <PATTIE Casas - Last Filed: 11/13/22 13:27> Discharge Date/Time: 11/13/22 01:47 <PATTIE Casas - Last Filed: 11/13/22 13:27> Print Language: Finnish <PATTIE Casas - Last Filed: 11/13/22 13:27>
--- NOTE | 2022-11-12 20:36 | ECG_ITS ---
Test Reason : ABD PAIN Blood Pressure : / mmHG Vent. Rate : 103 BPM Atrial Rate : 103 BPM P-R Int : 128 ms QRS Dur : 072 ms QT Int : 356 ms P-R-T Axes : 060 035 025 degrees QTc Int : 466 ms Sinus tachycardia Otherwise normal ECG When compared with ECG of 20-OCT-2022 01:39, No significant change was found Referred By: Manny Larry Electronically Signed By:CECELIA MCDONALD
[2022-11-12 21:11] LABS: MANUAL DIFF FLAG NO
--- NOTE | 2022-11-12 21:11 | MHC.EDTECH ---
patient blood drawn ,rsv covid swab collected and urine sample all sent to lab .
[2022-11-12 21:18] LABS: Basophils Percent Auto 0.2 % (0-2); Eosinophils Absolute Auto 0.1 X10*3/uL (0.0-0.4); Eosinophils Percent Auto 0.9 % (0-4); Hematocrit 36.2 % (37.0-47.0); Hemoglobin 11.3 g/dl (12.0-16.0); Imm Gran Abs Auto 0.06 X10*3/uL (0.00-0.03); Imm Gran Pct Auto 0.6 % (0.0-0.4); Lymphocytes Absolute Auto 3.6 X10*3/uL (1.2-4.9); Lymphocytes Percent Auto 36.8 % (20-40); Mean Corpuscular HGB Conc 31.2 g/dl (31.0-35.0); Mean Corpuscular Hemoglobin 28.1 pg (27.0-33.0); Mean Platelet Volume 11.3 fL (9.4-12.3); Monocytes Percent Auto 9.8 % (2-11); Neutrophils Percent Auto 51.7 % (45-73); Platelet Count 305 X10*3/uL (160-400); Red Blood Count 4.02 X10*6/uL (4.20-5.50); Red Cell Distribution Width 16.8 % (11.0-16.0); White Blood Count 9.7 X10*3/uL (4.8-10.8)
[2022-11-12 21:21] LABS: Appearance Urine Clear; Color Urine Yellow; Glucose Urine UA Negative (Negative); Leukocyte Esterase Urine Trace (Negative); Nitrite Urine Negative (Negative); PH 7.5 (5.0-9.0); Specific Gravity - Urine 1.025 (1.005-1.025); UMIC TRIGGER UACC YES; Urine Blood Negative (Negative); Urine Ketones Trace mg/dL (Negative); Urine Protein Negative (Neg-Trace)
[2022-11-12 21:23] LABS: Prothrombin Time 11.6 SEC (10.0-13.1)
[2022-11-12 21:26] LABS: Partial Thromboplastin Time 45.2 SEC (26.0-36.4)
[2022-11-12 21:35] LABS: Bacteria Urine None Seen (None Seen); Hyaline Casts Urine 0-2 /LPF (0-2); WBC Urine 0-5 /HPF (0-5)
[2022-11-12 21:40] LABS: Alanine Aminotransferase 19 U/L (0-31); Albumin Level 3.8 g/dL (3.5-5.0); Alkaline Phosphatase 70 U/L (39-117); Anion Gap 14 (12-20); Aspartate Amino Transferase 14 U/L (5-31); Bilirubin Total 0.2 mg/dL (0.0-1.0); Blood Urea Nitrogen 13 mg/dL (9-16); Calcium 8.8 mg/dL (8.4-10.2); Carbon Dioxide 25 mmol/L (22-29); Chloride 104 mmol/L (96-108); Creatinine Clr Calc Pharmacy 107.4; Estimated Glomerular Filt Rate > 60; Glucose Random 123 mg/dL (60-115); Lipase 25 U/L (8-78); Potassium 4.3 mmol/L (3.3-5.1); Sodium 139 mmol/L (135-145); Total Protein 6.5 g/dL (6.5-8.0)
[2022-11-12 21:50] LABS: Troponin-I High Sensitivity < 3.5 ng/L (<3.5-17.0)
[2022-11-12 22:04] LABS: Influenza A PCR NEGATIVE (Negative); Influenza B PCR NEGATIVE (Negative); Resp Syncy Virus RNA Qual PCR NEGATIVE (Negative); SARS COV2 PCR INHOUSE NEGATIVE (Negative)
[2022-11-12] MEDS: Famotidine/PF 20 MG/2 ML VIAL IVPUSH (23:14)
[2022-11-12] MEDS: Morphine Sulfate 4 MG/ML CARTRIDGE IVPUSH (23:14)
[2022-11-12] MEDS: ondansetron HCL 4 MG/2 ML VIAL IVPUSH (23:14)
[2022-11-12 23:56] VITALS: BP 153/81; PULSE 92; RESP 16; TEMP 36.8; O2SAT 93
[2022-11-13] MEDS: Dicyclomine HCl 10 MG CAPSULE 20 MG PO (00:59)
[2022-11-13] MEDS: Lidocaine HCl Viscous 2 % 15 ML SOLUTION MUCOUS MEM (01:00)
== END 2022-11-13 01:47 | disposition home or self-care (01) ==
PROVIDERS: Physician Assistant; Emergency Provider Internal Medicine; PCP Internal Medicine
DX: K29.70 Gastritis, unspecified, without bleeding (principal); K58.9 Irritable bowel syndrome, unspecified; R00.0 Tachycardia, unspecified; R10.13 Epigastric pain; I10 Essential (primary) hypertension; F41.9 Anxiety disorder, unspecified; R50.9 Fever, unspecified; F17.210 Nicotine dependence, cigarettes, uncomplicated; Z20.822 Contact with and (suspected) exposure to COVID-19; Z20.828 Contact with and (suspected) exposure to other viral communicable diseases; Z71.6 Tobacco abuse counseling; Z79.899 Other long term (current) drug therapy
CPT/HCPCS: 0241U; 74176; 80053; 81001; 83690; 84484; 85025; 85610; 85730; 93005; 96374; 96375; 99283; 99284; J2270; J2405

== ENCOUNTER 2022-12-01 10:54 | Outpatient (REF) | payer MEDICAID, SELFPAY ==
[2022-12-01 11:11] LABS: MANUAL DIFF FLAG NO
[2022-12-01 11:14] LABS: Basophils Percent Auto 0.2 % (0-2); Eosinophils Absolute Auto 0.1 X10*3/uL (0.0-0.4); Eosinophils Percent Auto 1.3 % (0-4); Hematocrit 34.6 % (37.0-47.0); Hemoglobin 10.7 g/dl (12.0-16.0); Imm Gran Pct Auto 1.2 % (0.0-0.4); Lymphocytes Absolute Auto 2.8 X10*3/uL (1.2-4.9); Lymphocytes Percent Auto 33.3 % (20-40); Mean Corpuscular HGB Conc 30.9 g/dl (31.0-35.0); Mean Corpuscular Hemoglobin 27.9 pg (27.0-33.0); Mean Corpuscular Volume 90.3 fL (80.0-98.0); Mean Platelet Volume 10.1 fL (9.4-12.3); Monocytes Absolute Auto 0.6 X10*3/uL (0.1-1.2); Monocytes Percent Auto 7.6 % (2-11); Neutrophils Absolute Auto 4.7 x10*3/uL (2.0-8.3); Neutrophils Percent Auto 56.4 % (45-73); Platelet Count 225 X10*3/uL (160-400); Red Blood Count 3.83 X10*6/uL (4.20-5.50); Red Cell Distribution Width 16.9 % (11.0-16.0); White Blood Count 8.3 X10*3/uL (4.8-10.8)
== END 2022-12-01 10:55 | disposition home or self-care (01) ==
LOC: HO.LAB 10:54
PROVIDERS: Visit Provider Clinical Nurse Specialist Psychiatric/Mental Health, Adult
DX: Z79.899 Other long term (current) drug therapy (principal)
CPT/HCPCS: 36415; 85025

== ENCOUNTER 2022-12-12 16:10 | Inpatient (IN) | payer MEDICAID, SELFPAY ==
--- NOTE | ~2022-12-12 | CT_ITS ---
EXAMINATION: CT ABDOMEN AND PELVIS WITH CONTRAST CLINICAL INFORMATION: Abdominal distention, jaundice. COMPARISON: CT abdomen/pelvis 11/12/2022. TECHNIQUE: Multidetector volumetric images were obtained from the superior aspect of the liver through the pubic symphysis following administration 85 mL of Omnipaque 350 intravenous contrast. Sagittal and coronal reformatted images were obtained on the technologist's workstation. Oral contrast: No This CT examination was performed using dose optimization techniques as appropriate, variously including the following: *Automated exposure control *Adjustment of mA and/or kV according to patient size (this includes techniques or standardized protocols for targeted exams where dose is matched to indication/reason for exam; i.e. extremities or head) *Use of iterative reconstruction technique DLP: 649 mGy-cm FINDINGS: LUNG BASES: No focal consolidation or pleural effusion. LIVER, GALLBLADDER, AND BILIARY TREE: The liver is enlarged measuring 18.8 cm craniocaudally and demonstrates decreased attenuation of the parenchyma most suggestive of hepatic steatosis. No suspicious focal liver lesion. No biliary ductal dilatation. No evidence of calcified cholelithiasis or findings to suspect acute cholecystitis. PANCREAS: Unremarkable. SPLEEN: Unremarkable. ADRENAL GLANDS: Unremarkable. KIDNEYS AND URETERS: The kidneys are normal in size, shape, and attenuation. No hydronephrosis, hydroureter, or calculi seen. No perinephric stranding. BLADDER: Unremarkable. GASTROINTESTINAL TRACT: The stomach and the small bowel are nondilated. The appendix is not identified, however there are no regional inflammatory changes to suspect acute appendicitis. Large amount stool in the colon. No pericolonic inflammatory changes. ABDOMINAL WALL: No significant hernia is appreciated. LYMPH NODES: No lymphadenopathy. VASCULAR: Abdominal aorta is normal in caliber. PELVIC VISCERA: Unremarkable. OSSEOUS STRUCTURES: No acute or aggressive appearing osseous abnormalities. CT/CT abdomen pelvis w IV con IMPRESSION: 1. Hepatomegaly and hepatic steatosis. 2. Large amount of stool in the colon, suggesting constipation. 3. No other acute abnormalities in the abdomen or pelvis to explain the patient's symptoms.
--- NOTE | ~2022-12-12 | US_ITS ---
EXAMINATION: US ABDOMEN LIMITED CLINICAL INFORMATION: Cholecystitis. COMPARISON: 12/12/2022 TECHNIQUE: Real-time imaging of the right upper quadrant abdominal viscera. FINDINGS: GALLBLADDER: Normal. The gallbladder is physiologically distended without evidence of stones, sludge, polyps, wall thickening or pericholecystic fluid. COMMON BILE DUCT: Normal in caliber measuring 0.2 cm in diameter. FREE FLUID: None. US/US abdomen limited IMPRESSION: Normal appearance of the gallbladder.
--- NOTE | ~2022-12-12 | XR_ITS ---
EXAMINATION: XR CHEST CLINICAL INFORMATION: Fever. Altered mental status. COMPARISON: 10/20/2022 TECHNIQUE: Frontal view of the chest was obtained. FINDINGS: Cardiac leads overlie the chest. The lungs are well expanded. There is no focal consolidation, edema, or effusion. No pneumothorax. The cardiomediastinal silhouette is within normal limits. No acute osseous abnormality. XR/XR chest 1V IMPRESSION: Clear lungs.
[2022-12-12 16:58] VITALS: BP 128/73; BP 140/90; PULSE 111; PULSE 116; RESP 18; TEMP 37.6; O2SAT 95; BMI 30.8
--- NOTE | 2022-12-12 17:40 | ED_ITS ---
HPI - Abdominal Pain General Chief Complaint: Abdominal Pain Stated Complaint: Evaluation Time Seen by Provider: 12/12/22 16:52 Source: patient and EMS Limitations: no limitations History of Present Illness HPI narrative: 57-year-old female history of diabetes, hypertension, chronic obstructive airway disease, schizophrenia presenting to the emergency department from primary care provider's office for evaluation of abdominal distention and pain, jaundice, fatigue, malaise progressively worsening over the past few days according to pat bharath 2 days ago she was normal and she suddenly has a large abdomen that is diffusely painful, she tells me she came in today because her primary care provider told her that she looked ?yellow ?. Denies fevers, chills, chest pain, shortness of breath, nausea, vomiting, changes in bowel habits and changes in urination. No history of hepatitis that she knows of in patient does not drink alcohol. Related Data Home Medications Medication Instructions Recorded Confirmed lactulose 10 gram/15 mL oral 15 ml PO DAILY PRN Constipation 07/07/21 12/24/21 solution (Generlac) albuterol sulfate 90 mcg/actuation 2 puff PO Q4-6H PRN Wheezing 08/11/21 12/24/21 aerosol inhaler (ProAir HFA) bisacodyl 5 mg tablet,delayed 2 tab PO BEDTIME 08/11/21 12/24/21 release clonazepam 1 mg tablet 0.5 mg PO QAM 08/11/21 12/24/21 clonazepam 1 mg tablet (Klonopin) 1 mg PO BEDTIME 08/11/21 12/24/21 docusate sodium 100 mg capsule 1 cap PO BID PRN Constipation 08/11/21 12/26/21 sennosides 8.6 mg tablet (senna) 2 tab PO BEDTIME 08/11/21 12/24/21 tramadol 50 mg tablet 1 tab PO Q6H PRN Pain 09/27/21 12/24/21 clozapine 100 mg tablet 3 tab PO BEDTIME 12/24/21 12/24/21 polyethylene glycol 3350 17 gram 17 g PO TID 12/24/21 12/24/21 oral powder packet metformin 500 mg tablet,extended 500 mg PO BID 05/03/22 release 24 hr Previous Rx's Medication Instructions Recorded clozapine 25 mg tablet 50 mg PO QAM 30 days #60 tabs 07/12/21 divalproex 500 mg tablet,extended 1,500 mg PO BEDTIME 30 days #90 07/12/21 release 24 hr tabs fluoxetine 20 mg capsule 20 mg PO QAM 30 days #30 caps 07/12/21 fluticasone propionate 110 2 puff PO BID 30 days #12 grams 07/12/21 mcg/actuation HFA aerosol inhaler (Flovent HFA) lisinopril 10 mg tablet 10 mg PO QPM 30 days #30 tabs 07/12/21 montelukast 10 mg tablet 10 mg PO DAILY 30 days #30 tabs 07/12/21 omeprazole 20 mg capsule,delayed 20 mg PO BID 30 days #60 caps 07/12/21 release polyethylene glycol 3350 17 gram 17 g PO TID 30 days #1,600 grams 10/12/21 oral powder packet cane #1 ea 05/03/22 ondansetron 4 mg disintegrating 4 mg PO Q6-8H PRN nausea and 09/10/22 tablet vomiting #14 tabs doxycycline hyclate 100 mg tablet 100 mg PO Q12H 7 days #14 tabs 10/20/22 dicyclomine 20 mg tablet 20 mg PO QID PRN abdominal pain 11/13/22 #20 tabs sucralfate 1 gram tablet 1 g PO TID #90 tabs 11/13/22 Allergies Allergy/AdvReac Type Severity Reaction Status Date / Time diazepam [From Valium] Allergy Unknown Unknown Verified 12/12/22 17:22 haloperidol [From Haldol] Allergy Unknown Unknown Verified 12/12/22 17:22 Penicillins Allergy Unknown Unknown Verified 12/12/22 17:22 risperidone [From Risperdal] Allergy Unknown Unknown Verified 12/12/22 17:22 aspirin [Aspirin] AdvReac Intermediate Vomiting Verified 12/12/22 17:22 trazodone [TRAZODONE] AdvReac Intermediate NAUSEA & Verified 12/12/22 17:22 VOMITING Review of Systems Review of Systems Constitutional : No Weight loss, No Fever, No Chills, + Fatigue, + Malaise ENT/Mouth : No sore throat, No Rhinorrhea Eyes: No Eye Pain, No Swelling, No Redness Cardiovascular : No Chest Pain, No SOB, No Dyspnea on Exertion, No Orthopnea, No Edema, No Palpitations Respiratory : No Cough, No Sputum, No Wheezing Gastrointestinal : No Nausea, No Vomiting, No Diarrhea, No Constipation, + abdominal Pain, No Hematochezia, No Melena Genitourinary : No Dysuria, No Urinary Frequency, No Hematuria, Musculoskeletal : No joint pain, No Myalgias, No Joint Swelling Skin : No Skin Lesions, No rash, + jaundice Neuro : No Weakness, No Numbness, No Dizziness, No Headache Psych : No Anxiety/Panic, No Depression All other systems reviewed and are negative Yes all other systems are reviewed and are negative [facility] Past Medical History Attestation statement: The following information was validated with the patient. Source: old records reviewed and nursing notes reviewed Medical History Anxiety Asthma Chronic mental illness COPD (chronic obstructive pulmonary disease) Diabetes Hyperlipidemia Morbid obesity due to excess calories Schizophrenia Surgical History H/O right knee surgery History of appendectomy History of tubal ligation Family History Family History Father Throat cancer Mother CVA (cerebral vascular accident) Brother Drug overdose Sister No problems noted. Sister No problems noted. Son No problems noted. Son No problems noted. Social History 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: Foster Family Household Members Other:: Lanny Soto, Inocencio Soto, - foster parents Housing: Apartment Do you presently have visiting nurse or other home services: Yes (Meds administered by [facility]) Unable to assess alcohol history related to: Unknown Alcohol intake: never Patient Tobacco Use Status: Never used Tobacco Tobacco use type: Cigarette Cigarettes Per Day: 10 Smoked in Last 30 Days: Yes e-Cigarette/Vaping Use: Never Used Second Hand Smoke Exposure: No Use of substances other than those prescribed or required for medical reasons: No Advance Directives: Yes Advance Directives on File: No Advance Directives Date on File: 03/03/14 Patient : No service: No Current occupational status: disabled Sexual orientation: Don't Know Physical Exam ED Vital Signs: Vital Signs - 24 hr 12/12/22 16:58 12/12/22 20:56 12/12/22 23:52 Temperature 99.7 F 101.3 F H Pulse Rate 111 H 110 H 114 H Respiratory Rate 18 20 20 Blood Pressure 128/73 132/63 138/79 Pulse Oximetry 95 94 96 Oxygen Delivery Method Room Air Room Air Room Air BMI result Body Mass Index 30.8 vss Appearance: Alert.? Oriented X3.? No acute distress.? Head: Normocephalic, atraumatic, no step-offs or deformities Eyes: Pupils equal, round and reactive to light.? Bilateral conjunctiva w/ mild icterus ENT: Pharynx normal.? Neck: Normal inspection.? Neck supple.? CVS: Normal heart rate and rhythm.? Pulses normal.? Respiratory: No respiratory distress.? Breath sounds normal.? Abdomen: Soft , distended, diffusely tender with normoactive bowel sounds Skin: Skin warm and dry.? Slightly jaundice skin color throughout.? Normal skin turgor.? Extremities: No lower extremity edema.? No calf ttp. 5/5 strength to bilateral upper and lower extremities Back: No midline tenderness, no C-spine tenderness, full range of motion, no CVA tenderness bilaterally Neuro: Oriented X 3.? No motor deficit.? No sensory deficit. CN 2-12 intact Course Reevaluation(s) Reevaluation #1: CBC appears to be around patient's baseline. Chemistry with elevated BUN likely secondary to poor p.o. intake. Lactic acid 3.1 however patient on metformin I suspect metformin lactic acidosis unlikely sepsis. Patient's ammonia 68 she was given lactulose. UA without infection. Urine toxicology negative. Ethanol negative. COVID negative. Chest x-ray unremarkable. CT of the abdomen pelvis with hepatomegaly and hepatosteatosis. Large amount of stool in the colon suggesting constipation. On re-evaluation multiple times throughout the night patient was extremely tender to palpation, she was febrile Tylenol was ordered. Unable to explain a cause for patient's abdominal pain however with fever I discussed this case with my attending who suggest hospital admission for further evaluation and treatment. Discussed case with the hospitalist to admit patient. Patient's transaminases, bilirubin normal, I do not suspect SBP. No elevated white blood cell count. Time: 00:29 Medical Decision Making Medical Decision Making [facility] Narrative: [id number] 57-year-old female presents with fatigue, malaise, abdominal distension and pain, jaundice for the past 2 days per patient sent by her primary care provider On exam distended abdomen diffusely tender appears to be ascites. Normoactive bowel sounds. Patient with mild jaundice throughout and mild scleral icterus. Neuro nonfocal. Lungs clear. Regular rate and rhythm. Concerns for possible ascites, versus SBP. Unlikely hepatic encephalopathy, other differentials include Budd-Chiari, hepatitis, UTI, constipation patient, malignant or weight gain. Unlikely that this is an acute abdomen, diverticulitis, cholecystitis, appendicitis, pancreatitis. Normoactive bowel sounds therefore low suspicion for obstruction. Cannot exclude a partial obstruction. Plan at this time labs, imaging, urine, blood cultures, lactic acid, CT of the abdomen and pelvis. Differential Diagnosis Differential Diagnoses: The differential diagnosis associated with the presentation includes Concerns for possible ascites, versus SBP. Unlikely hepatic encephalopathy, other differentials include Budd-Chiari, hepatitis, UTI, constipation patient, malignant or weight gain. Unlikely that this is an acute abdomen, diverticulitis, cholecystitis, appendicitis, pancreatitis. Normoactive bowel sounds therefore low suspicion for obstruction. Cannot exclude a partial obstruction. Admission/Observation Consideration of admission/observation: Escalation of care including admission/observation considered Likely hospital admission Lab Data MDM Lab Attestation statement: I reviewed the patient's lab results. 12/12/22 18:21 12/12/22 18:21 Labs: Lab Results 12/12/22 12/12/22 12/12/22 Range/Units 18:21 18:21 18:21 WBC 10.5 (4.8-10.8) X10*3/uL RBC 4.34 (4.20-5.50) X10*6/uL Hgb 12.1 (12.0-16.0) g/dl Hct 39.5 (37.0-47.0) % MCV 91.0 (80.0-98.0) fL MCH 27.9 (27.0-33.0) pg MCHC 30.6 L (31.0-35.0) g/dl RDW 16.6 H (11.0-16.0) % Plt Count 311 D (160-400) X10*3/uL MPV 11.7 (9.4-12.3) fL Immature Gran % (Auto) 0.6 H (0.0-0.4) % Neut % (Auto) 84.6 H (45-73) % Lymph % (Auto) 9.1 L (20-40) % [place] % (Auto) 5.1 (2-11) % Eos % (Auto) 0.3 (0-4) % Baso % (Auto) 0.3 (0-2) % Lymph # (Auto) 1.0 L (1.2-4.9) X10*3/uL [place] # (Auto) 0.5 (0.1-1.2) X10*3/uL Eos # (Auto) 0.0 (0.0-0.4) X10*3/uL Baso # (Auto) 0.0 (0.0-0.2) X10*3/uL Abs Immat Gran (auto) 0.06 H (0.00-0.03) X10*3/uL Absolute Neuts (auto) 8.9 H (2.0-8.3) x10*3/uL Absolute Nucleated RBC 0.000 (0.0-0.012) X10*3/uL Nucleated RBC % (auto) 0.0 (0.0-0.2) /100WBC Smear Tech's Comments VERIFIED Sodium 139 (135-145) mmol/L Potassium 4.3 (3.3-5.1) mmol/L Chloride 103 (96-108) mmol/L Carbon Dioxide 24 (22-29) mmol/L Anion Gap 16 (12-20) BUN 19 H (9-16) mg/dL Creatinine 0.56 (0.5-1.4) mg/dL Estim Creat Clear Calc 114.4 Estimated GFR > 60 Random Glucose 94 (60-115) mg/dL Lactic Acid (0.5-2.0) mmol/L Lactic Acid F/U @ 2Hr (0.5-2.0) mmol/L Calcium 9.0 (8.4-10.2) mg/dL Magnesium 1.7 (1.6-2.6) mg/dL Total Bilirubin 0.5 (0.0-1.0) mg/dL AST 15 (5-31) U/L ALT 17 (0-31) U/L Alkaline Phosphatase 77 (39-117) U/L Ammonia 68 H (13-55) umol/L Total Protein 6.7 (6.5-8.0) g/dL Albumin 4.0 (3.5-5.0) g/dL Lipase (8-78) U/L Urine Color Urine Appearance Urine pH (5.0-9.0) Ur Specific [place] Gap (1.005-1.025) Urine Protein (Neg-Trace) mg/dL Urine Glucose (UA) (Negative) mg/dL Urine Ketones (Negative) mg/dL Urine Blood (Negative) Urine Nitrite (Negative) Ur Leukocyte Esterase (Negative) Urine Opiates Screen (Not Detect) Urine Fentanyl Screen (Not Detect) Ur Barbiturates Screen (Not Detect) Ur Phencyclidine Scrn (Not Detect) Ur Amphetamines Screen (Not Detect) U Benzodiazepines Scrn (Not Detect) Urine Cocaine Screen (Not Detect) U Marijuana (THC) Screen (Not Detect) Ethyl Alcohol < 10 mg/dL COVID-19 ([facility]) (Negative) COVID-19 Clin Com 12/12/22 12/12/22 12/12/22 Range/Units 19:38 19:41 20:49 WBC (4.8-10.8) X10*3/uL RBC (4.20-5.50) X10*6/uL Hgb (12.0-16.0) g/dl Hct (37.0-47.0) % MCV (80.0-98.0) fL MCH (27.0-33.0) pg MCHC (31.0-35.0) g/dl RDW (11.0-16.0) % Plt Count (160-400) X10*3/uL MPV (9.4-12.3) fL Immature Gran % (Auto) (0.0-0.4) % Neut % (Auto) (45-73) % Lymph % (Auto) (20-40) % [place] % (Auto) (2-11) % Eos % (Auto) (0-4) % Baso % (Auto) (0-2) % Lymph # (Auto) (1.2-4.9) X10*3/uL [place] # (Auto) (0.1-1.2) X10*3/uL Eos # (Auto) (0.0-0.4) X10*3/uL Baso # (Auto) (0.0-0.2) X10*3/uL Abs Immat Gran (auto) (0.00-0.03) X10*3/uL Absolute Neuts (auto) (2.0-8.3) x10*3/uL Absolute Nucleated RBC (0.0-0.012) X10*3/uL Nucleated RBC % (auto) (0.0-0.2) /100WBC Smear Tech's Comments Sodium (135-145) mmol/L Potassium (3.3-5.1) mmol/L Chloride (96-108) mmol/L Carbon Dioxide (22-29) mmol/L Anion Gap (12-20) BUN (9-16) mg/dL Creatinine (0.5-1.4) mg/dL Estim Creat Clear Calc Estimated GFR Random Glucose (60-115) mg/dL Lactic Acid 3.1 H* (0.5-2.0) mmol/L Lactic Acid F/U @ 2Hr (0.5-2.0) mmol/L Calcium (8.4-10.2) mg/dL Magnesium (1.6-2.6) mg/dL Total Bilirubin (0.0-1.0) mg/dL AST (5-31) U/L ALT (0-31) U/L Alkaline Phosphatase (39-117) U/L Ammonia (13-55) umol/L Total Protein (6.5-8.0) g/dL Albumin (3.5-5.0) g/dL Lipase 14 (8-78) U/L Urine Color Urine Appearance Urine pH (5.0-9.0) Ur Specific [place] Gap (1.005-1.025) Urine Protein (Neg-Trace) mg/dL Urine Glucose (UA) (Negative) mg/dL Urine Ketones (Negative) mg/dL Urine Blood (Negative) Urine Nitrite (Negative) Ur Leukocyte Esterase (Negative) Urine Opiates Screen (Not Detect) Urine Fentanyl Screen (Not Detect) Ur Barbiturates Screen (Not Detect) Ur Phencyclidine Scrn (Not Detect) Ur Amphetamines Screen (Not Detect) U Benzodiazepines Scrn (Not Detect) Urine Cocaine Screen (Not Detect) U Marijuana (THC) Screen (Not Detect) Ethyl Alcohol mg/dL COVID-19 ([facility]) Negative (Negative) COVID-19 Clin Com See Note 12/12/22 12/12/2223 Range/Units 22:20 22:20 22:20 WBC (4.8-10.8) X10*3/uL RBC (4.20-5.50) X10*6/uL Hgb (12.0-16.0) g/dl Hct (37.0-47.0) % MCV (80.0-98.0) fL MCH (27.0-33.0) pg MCHC (31.0-35.0) g/dl RDW (11.0-16.0) % Plt Count (160-400) X10*3/uL MPV (9.4-12.3) fL Immature Gran % (Auto) (0.0-0.4) % Neut % (Auto) (45-73) % Lymph % (Auto) (20-40) % [place] % (Auto) (2-11) % Eos % (Auto) (0-4) % Baso % (Auto) (0-2) % Lymph # (Auto) (1.2-4.9) X10*3/uL [place] # (Auto) (0.1-1.2) X10*3/uL Eos # (Auto) (0.0-0.4) X10*3/uL Baso # (Auto) (0.0-0.2) X10*3/uL Abs Immat Gran (auto) (0.00-0.03) X10*3/uL Absolute Neuts (auto) (2.0-8.3) x10*3/uL Absolute Nucleated RBC (0.0-0.012) X10*3/uL Nucleated RBC % (auto) (0.0-0.2) /100WBC Smear Tech's Comments Sodium (135-145) mmol/L Potassium (3.3-5.1) mmol/L Chloride (96-108) mmol/L Carbon Dioxide (22-29) mmol/L Anion Gap (12-20) BUN (9-16) mg/dL Creatinine (0.5-1.4) mg/dL Estim Creat Clear Calc Estimated GFR Random Glucose (60-115) mg/dL Lactic Acid (0.5-2.0) mmol/L Lactic Acid F/U @ 2Hr 2.2 H* (0.5-2.0) mmol/L Calcium (8.4-10.2) mg/dL Magnesium (1.6-2.6) mg/dL Total Bilirubin (0.0-1.0) mg/dL AST (5-31) U/L ALT (0-31) U/L Alkaline Phosphatase (39-117) U/L Ammonia (13-55) umol/L Total Protein (6.5-8.0) g/dL Albumin (3.5-5.0) g/dL Lipase (8-78) U/L Urine Color Yellow Urine Appearance Clear Urine pH 6.5 (5.0-9.0) Ur Specific [place] Gap >= 1.030 H (1.005-1.025) Urine Protein Negative (Neg-Trace) mg/dL Urine Glucose (UA) Negative (Negative) mg/dL Urine Ketones Trace (Negative) mg/dL Urine Blood Negative (Negative) Urine Nitrite Negative (Negative) Ur Leukocyte Esterase Negative (Negative) Urine Opiates Screen Not Detected (Not Detect) Urine Fentanyl Screen Not Detected (Not Detect) Ur Barbiturates Screen Not Detected (Not Detect) Ur Phencyclidine Scrn Not Detected (Not Detect) Ur Amphetamines Screen Not Detected (Not Detect) U Benzodiazepines Scrn Not Detected (Not Detect) Urine Cocaine Screen Not Detected (Not Detect) U Marijuana (THC) Screen Not Detected (Not Detect) Ethyl Alcohol mg/dL COVID-19 ([facility]) (Negative) COVID-19 Clin Com Independent Interpretation I performed an independent interpretation of an: CT Scan Radiology Impression Discussion of test interpretation with radiology: I have reviewed the radiologist's reading. Chronic Conditions Patient?s care impacted by: Diabetes and Hypertension Core Measures AMI core measures followed: Yes Measure exclusions: not indicated Medications Administered Discontinued Medications Generic Name Dose Route Start Last Admin Trade Name Freq PRN Reason Stop Dose Admin Ceftriaxone Sodium 1 gm/ 50 mls @ 100 mls/hr 12/12/22 20:07 12/12/22 21:27 Sodium Chloride IV 12/12/22 20:36 Infused ONCE ONE Infusion Sodium Chloride 1,000 mls @ 999 mls/hr 12/12/22 20:45 12/12/22 22:30 Ns IV 12/12/22 21:45 Infused .Q1H1M LAXMI Infusion Iohexol 100 ml 12/12/22 19:53 12/12/22 19:54 Iohexol 350 Mg/Ml 100 Ml Infus..Btl IV 12/12/22 19:54 85 ml ONCE ONE Administration Lactulose 20 gm 12/12/22 20:50 12/12/22 22:03 Lactulose 20 Gm/30 Ml Solution PO 12/12/22 20:51 20 gm ONCE ONE Administration Critical Care Time Critical Care Time Critical Care Time: No Discharge Plan Discharge Clinical Impression: Fever, Abdominal pain Patient Disposition: Admitted As Inpatient Prescriptions: No Action lactulose [Generlac] 10 gram/15 mL solution 15 ml PO DAILY PRN (Reason: Constipation) lisinopril 10 mg tablet 10 mg PO QPM 30 Days Qty: 30 0RF divalproex 500 mg tablet extended release 24 hr 1,500 mg PO BEDTIME 30 Days Qty: 90 0RF omeprazole 20 mg capsule,delayed release(DR/EC) 20 mg PO BID 30 Days Qty: 60 0RF montelukast 10 mg tablet 10 mg PO DAILY 30 Days Qty: 30 0RF clozapine 25 mg tablet 50 mg PO QAM 30 Days Qty: 60 0RF fluoxetine 20 mg capsule 20 mg PO QAM 30 Days Qty: 30 0RF Flovent HFA 110 mcg/actuation HFA aerosol inhaler 2 puff PO BID 30 Days Qty: 12 0RF tramadol 50 mg tablet 1 tab PO Q6H PRN (Reason: Pain) polyethylene glycol 3350 17 gram Powder In Packet 17 g PO TID 30 Days Qty: 1600 0RF ondansetron 4 mg tablet,disintegrating 4 mg PO Q6-8H PRN (Reason: nausea and vomiting) Qty: 14 0RF sennosides [senna] 8.6 mg tablet 2 tab PO BEDTIME docusate sodium 100 mg capsule 1 cap PO BID PRN (Reason: Constipation) bisacodyl 5 mg tablet,delayed release (DR/EC) 2 tab PO BEDTIME albuterol sulfate [ProAir HFA] 90 mcg/actuation HFA aerosol inhaler 2 puff PO Q4-6H PRN (Reason: Wheezing) clonazepam 1 mg Tablet 0.5 mg PO QAM clonazepam [Klonopin] 1 mg Tablet 1 mg PO BEDTIME clozapine 100 mg tablet 3 tab PO BEDTIME polyethylene glycol 3350 17 gram powder in packet 17 g PO TID doxycycline hyclate 100 mg tablet 100 mg PO Q12H 7 Days Qty: 14 0RF dicyclomine 20 mg tablet 20 mg PO QID PRN (Reason: abdominal pain) Qty: 20 0RF sucralfate 1 gram tablet 1 g PO TID Qty: 90 0RF metformin 500 mg tablet extended release 24 hr 500 mg PO BID (DME) cane Device See Rx Instructions .MEDSUPPLY Qty: 1 0RF Rx Instructions: Cane
--- NOTE | 2022-12-12 18:40 | PC.NURSE ---
pt a+o x4, vss. pt was sent from pcp office for evaluation of abd distension/pain/jaundice. she said that she had an appointment for check up. abd firm, tender to touch, reports last bm was yesterday. no change in bowel pattern.
[2022-12-12 18:52] LABS: Alanine Aminotransferase 17 U/L (0-31); Alkaline Phosphatase 77 U/L (39-117); Ammonia 68 umol/L (13-55); Anion Gap 16 (12-20); Aspartate Amino Transferase 15 U/L (5-31); Bilirubin Total 0.5 mg/dL (0.0-1.0); Blood Urea Nitrogen 19 mg/dL (9-16); Carbon Dioxide 24 mmol/L (22-29); Chloride 103 mmol/L (96-108); Creatinine Clr Calc Pharmacy 114.4; Estimated Glomerular Filt Rate > 60; Ethanol < 10 mg/dL; Glucose Random 94 mg/dL (60-115); Magnesium 1.7 mg/dL (1.6-2.6); Potassium 4.3 mmol/L (3.3-5.1); Sodium 139 mmol/L (135-145); Total Protein 6.7 g/dL (6.5-8.0)
[2022-12-12 18:56] LABS: PLT CLUMP 1; SCAN SMEAR FLAG 1
[2022-12-12 18:58] LABS: Basophils Percent Auto 0.3 % (0-2); Eosinophils Percent Auto 0.3 % (0-4); Hematocrit 39.5 % (37.0-47.0); Hemoglobin 12.1 g/dl (12.0-16.0); Imm Gran Abs Auto 0.06 X10*3/uL (0.00-0.03); Imm Gran Pct Auto 0.6 % (0.0-0.4); Lymphocytes Percent Auto 9.1 % (20-40); MANUAL DIFF FLAG SCAN; Mean Corpuscular HGB Conc 30.6 g/dl (31.0-35.0); Mean Corpuscular Hemoglobin 27.9 pg (27.0-33.0); Mean Platelet Volume 11.7 fL (9.4-12.3); Monocytes Absolute Auto 0.5 X10*3/uL (0.1-1.2); Monocytes Percent Auto 5.1 % (2-11); Neutrophils Absolute Auto 8.9 x10*3/uL (2.0-8.3); Neutrophils Percent Auto 84.6 % (45-73); Red Blood Count 4.34 X10*6/uL (4.20-5.50); Red Cell Distribution Width 16.6 % (11.0-16.0)
[2022-12-12 19:15] LABS: Platelet Count 311 X10*3/uL (160-400); White Blood Count 10.5 X10*3/uL (4.8-10.8)
[2022-12-12 19:17] LABS: SLIDE REVIEW VERIFIED
[2022-12-12] MEDS: iohexoL 350 MG/ML 100 ML INFUS..BTL IV (19:54)
[2022-12-12 20:03] LABS: Lipase 14 U/L (8-78)
[2022-12-12 20:07] LABS: Lactic Acid 3.1 mmol/L (0.5-2.0)
[2022-12-12] MEDS: cefTRIAXone sodium 1 GM in 0.9 % Sodium Chloride 50 ML IV (20:51)
[2022-12-12] MEDS: 0.9 % Sodium Chloride 1,000 ML 999 ML IV (20:52)
[2022-12-12 20:56] VITALS: BP 132/63; PULSE 110; RESP 20; O2SAT 94
[2022-12-12 21:03] LABS: COVID-19 Test Negative (Negative); IDNOW Serial# 08D9AD1C
[2022-12-12 21:43] LABS: Reflex Lactate? Lactic Acid Added
[2022-12-12] MEDS: Lactulose 20 GM/30 ML SOLUTION PO (22:03)
[2022-12-12 22:33] LABS: Appearance Urine Clear; Color Urine Yellow; Glucose Urine UA Negative (Negative); Leukocyte Esterase Urine Negative (Negative); Nitrite Urine Negative (Negative); PH 6.5 (5.0-9.0); Specific Gravity - Urine >= 1.030 (1.005-1.025); Urine Blood Negative (Negative); Urine Ketones Trace mg/dL (Negative); Urine Protein Negative (Neg-Trace)
[2022-12-12 22:42] LABS: Amphetamine Screen Urine Not Detected (Not Detect); Barbiturates, Urine Not Detected (Not Detect); Benzodiazepines Screen Urine Not Detected (Not Detect); Cannabinoid Screen Urine Not Detected (Not Detect); Cocaine Screen Urine Not Detected (Not Detect); Fentanyl, urine Not Detected (Not Detect); Opiate Screen Urine Not Detected (Not Detect); Phencyclidine Screen Urine Not Detected (Not Detect)
[2022-12-12 23:07] LABS: ~Lactic Acid-LAB USE ONLY 2.2 mmol/L (0.5-2.0)
[2022-12-12 23:52] VITALS: BP 138/79; PULSE 114; RESP 20; TEMP 38.5; O2SAT 96
--- NOTE | 2022-12-12 23:54 | MHC.EDTECH ---
This Tech assumed care of patient at 2300,Vitals taken,Patient had temp,Patient was yelling in pain PATTIE Wolfe and RN Brenna made aware. Patient placed on bus driver/monitor due to elevated HR. 1 assist to commode, patient voided 200ccof urine,patient was cleaned and patient is resting in bed comfortable at this time. Call blankenship in reach
[2022-12-13] VITALS (8 sets, daily range): BP systolic 114–180; BP diastolic 59–84; PULSE 89–114; RESP 18–20; TEMP 36.1–37.8; O2SAT 90–98
[2022-12-13 00:28] LABS: Reflex Lactate? 2 Y
--- NOTE | 2022-12-13 00:37 | P.HPHOSP_ITS ---
History of Present Illness Date of Service: 12/13/22 Chief Complaint: Abdominal Pain This is a 57-year-old female with pertinent history of schizophrenia, mib-zosvjcc-phvkcgxcs diabetes mellitus, essential hypertension, COPD who presents to the emergency department for evaluation of abdominal discomfort. Patient states she started having abdominal discomfort 2 days ago, a generalized, constant, nonradiating and without any relieving factors. It was associated with abdominal distention, nausea and nonbloody emesis. Patient is unable to tolerate p.o. intake due to nausea and vomiting. She saw her PCP today who sent her to the ER for further evaluation. Patient also endorses fevers and chills. Denies chest discomfort, palpitations, shortness of breath, changes in urinary or bowel habits. She last had a bowel movement yesterday which was normal. In the emergency department, patient was found to be septic. Review of Systems Constitutional: Constitutional: Reports chills and Reports fever(s) Cardiovascular: Cardiovascular: Reports no additional cardiovascular complaints Respiratory: Respiratory: Reports no additional respiratory complaints Gastrointestinal: Gastrointestinal: Reports abdominal pain, Reports nausea and Reports vomiting Genitourinary: Genitourinary: Reports no additional female genitourinary complaints [facility] Medical History Anxiety Asthma Chronic mental illness COPD (chronic obstructive pulmonary disease) Diabetes Hyperlipidemia Morbid obesity due to excess calories Schizophrenia Family History Father Throat cancer Mother CVA (cerebral vascular accident) Brother Drug overdose Sister No problems noted. Sister No problems noted. Son No problems noted. Son No problems noted. Surgical History H/O right knee surgery History of appendectomy History of tubal ligation 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: Foster Family Household Members Other:: Lanny Soto, Inocencio Soto, - foster parents Housing: Apartment Do you presently have visiting nurse or other home services: Yes (Meds administered by [facility]) Unable to assess alcohol history related to: Unknown Alcohol intake: never Patient Tobacco Use Status: Never used Tobacco Tobacco use type: Cigarette Cigarettes Per Day: 10 Smoked in Last 30 Days: Yes e-Cigarette/Vaping Use: Never Used Second Hand Smoke Exposure: No Use of substances other than those prescribed or required for medical reasons: No Advance Directives: Yes Advance Directives on File: No Advance Directives Date on File: 03/03/14 Patient : No service: No Current occupational status: disabled Sexual orientation: Don't Know Meds Allergies Allergy/AdvReac Type Severity Reaction Status Date / Time diazepam [From Valium] Allergy Unknown Unknown Verified 12/12/22 17:22 haloperidol [From Haldol] Allergy Unknown Unknown Verified 12/12/22 17:22 Penicillins Allergy Unknown Unknown Verified 12/12/22 17:22 risperidone [From Risperdal] Allergy Unknown Unknown Verified 12/12/22 17:22 aspirin [Aspirin] AdvReac Intermediate Vomiting Verified 12/12/22 17:22 trazodone [TRAZODONE] AdvReac Intermediate NAUSEA & Verified 12/12/22 17:22 VOMITING Active Medications: Current Medications Metronidazole (Flagyl) 500 mg in 100 mls @ 100 mls/hr IV ONCE ONE Stop: 12/13/22 01:03 Pharmacy Consult (Consult Rx Perform Med Rec) 1 each MISCELLANE ONCE PRN PRN Reason: Consult order Home Medications Medication Instructions Recorded Confirmed Last Taken Type lactulose 10 gram/15 mL oral 15 ml PO DAILY PRN Constipation 07/07/21 12/24/21 12/22/21 08:00 History solution (Generlac) albuterol sulfate 90 mcg/actuation 2 puff PO Q4-6H PRN Wheezing 08/11/21 12/24/21 12/23/21 08:00 History aerosol inhaler (ProAir HFA) bisacodyl 5 mg tablet,delayed 2 tab PO BEDTIME 08/11/21 12/24/21 12/23/21 20:00 History release clonazepam 1 mg tablet 0.5 mg PO QAM 08/11/21 12/24/21 12/24/21 08:00 History clonazepam 1 mg tablet (Klonopin) 1 mg PO BEDTIME 08/11/21 12/24/21 12/23/21 20:00 History docusate sodium 100 mg capsule 1 cap PO BID PRN Constipation 08/11/21 12/26/21 08/10/21 History sennosides 8.6 mg tablet (senna) 2 tab PO BEDTIME 08/11/21 12/24/21 12/23/21 20:00 History tramadol 50 mg tablet 1 tab PO Q6H PRN Pain 09/27/21 12/24/21 12/24/21 08:00 History clozapine 100 mg tablet 3 tab PO BEDTIME 12/24/21 12/24/21 12/23/21 20:00 History polyethylene glycol 3350 17 gram 17 g PO TID 12/24/21 12/24/21 12/24/21 08:00 History oral powder packet metformin 500 mg tablet,extended 500 mg PO BID 05/03/22 Unknown History release 24 hr Physical Exam Vital Signs and Narrative: Vital Signs: Last Vital Signs Temp 101.3 F H 12/12/22 23:52 Pulse 114 H 12/12/22 23:52 Resp 20 12/12/22 23:52 BP 138/79 12/12/22 23:52 Pulse Ox 96 12/12/22 23:52 O2 Del Method Room Air 12/12/22 23:52 BMI result Body Mass Index 30.8 Middle-aged female lying in bed in mild distress Neck supple, no JVD Tachycardic with regular rhythm, S1-S2 heard Regular breath sounds bilaterally, no wheezing or crackles appreciated Abdomen with generalized tenderness and guarding, no rebound tenderness Patient is awake, alert and oriented to self, place, time and person ; no focal motor deficit Psych: Normal mood No pedal edema Results Labs 12/12/22 18:21 12/12/22 18:21 Labs: Laboratory Results - last 24 hr 12/12/22 12/12/22 12/12/22 18:21 18:21 18:21 MCV 91.0 MCH 27.9 MCHC 30.6 L RDW 16.6 H Plt Count 311 D MPV 11.7 Immature Gran % (Auto) 0.6 H Neut % (Auto) 84.6 H Lymph % (Auto) 9.1 L [place] % (Auto) 5.1 Eos % (Auto) 0.3 Baso % (Auto) 0.3 Lymph # (Auto) 1.0 L [place] # (Auto) 0.5 Eos # (Auto) 0.0 Baso # (Auto) 0.0 Abs Immat Gran (auto) 0.06 H Absolute Neuts (auto) 8.9 H Absolute Nucleated RBC 0.000 Nucleated RBC % (auto) 0.0 Smear Tech's Comments VERIFIED Anion Gap 16 Estim Creat Clear Calc 114.4 Estimated GFR > 60 Random Glucose 94 Lactic Acid Lactic Acid F/U @ 2Hr Calcium 9.0 Magnesium 1.7 Total Bilirubin 0.5 AST 15 ALT 17 Alkaline Phosphatase 77 Ammonia 68 H Total Protein 6.7 Albumin 4.0 Lipase Urine Color Urine Appearance Urine pH Ur Specific [place] Urine Protein Urine Glucose (UA) Urine Ketones Urine Blood Urine Nitrite Ur Leukocyte Esterase Urine Opiates Screen Urine Fentanyl Screen Ur Barbiturates Screen Ur Phencyclidine Scrn Ur Amphetamines Screen U Benzodiazepines Scrn Urine Cocaine Screen U Marijuana (THC) Screen Ethyl Alcohol < 10 COVID-19 ([facility]) COVID-Cabe na [place] 12/12/22 12/12/22 12/12/22 19:38 19:41 20:49 MCV MCH MCHC RDW Plt Count MPV Immature Gran % (Auto) Neut % (Auto) Lymph % (Auto) [place] % (Auto) Eos % (Auto) Baso % (Auto) Lymph # (Auto) [place] # (Auto) Eos # (Auto) Baso # (Auto) Abs Immat Gran (auto) Absolute Neuts (auto) Absolute Nucleated RBC Nucleated RBC % (auto) Smear Tech's Comments Anion Gap Estim Creat Clear Calc Estimated GFR Random Glucose Lactic Acid 3.1 H* Lactic Acid F/U @ 2Hr Calcium Magnesium Total Bilirubin AST ALT Alkaline Phosphatase Ammonia Total Protein Albumin Lipase 14 Urine Color Urine Appearance Urine pH Ur Specific [place] Urine Protein Urine Glucose (UA) Urine Ketones Urine Blood Urine Nitrite Ur Leukocyte Esterase Urine Opiates Screen Urine Fentanyl Screen Ur Barbiturates Screen Ur Phencyclidine Scrn Ur Amphetamines Screen U Benzodiazepines Scrn Urine Cocaine Screen U Marijuana (THC) Screen Ethyl Alcohol COVID-19 ([facility]) Negative COVID-Cabe na [place]a See Note 12/12/22 12/12/22 12/12/22 22:20 22:20 22:20 MCV MCH MCHC RDW Plt Count MPV Immature Gran % (Auto) Neut % (Auto) Lymph % (Auto) [place] % (Auto) Eos % (Auto) Baso % (Auto) Lymph # (Auto) [place] # (Auto) Eos # (Auto) Baso # (Auto) Abs Immat Gran (auto) Absolute Neuts (auto) Absolute Nucleated RBC Nucleated RBC % (auto) Smear Tech's Comments Anion Gap Estim Creat Clear Calc Estimated GFR Random Glucose Lactic Acid Lactic Acid F/U @ 2Hr 2.2 H* Calcium Magnesium Total Bilirubin AST ALT Alkaline Phosphatase Ammonia Total Protein Albumin Lipase Urine Color Yellow Urine Appearance Clear Urine pH 6.5 Ur Specific [place] >= 1.030 H Urine Protein Negative Urine Glucose (UA) Negative Urine Ketones Trace Urine Blood Negative Urine Nitrite Negative Ur Leukocyte Esterase Negative Urine Opiates Screen Not Detected Urine Fentanyl Screen Not Detected Ur Barbiturates Screen Not Detected Ur Phencyclidine Scrn Not Detected Ur Amphetamines Screen Not Detected U Benzodiazepines Scrn Not Detected Urine Cocaine Screen Not Detected U Marijuana (THC) Screen Not Detected Ethyl Alcohol COVID-19 ([facility]) COVID-19 Clin Com Imaging Radiologist's Impressions: Impressions Abdomen/Pelvis CT 12/12/22 19:56 IMPRESSION: 1. Hepatomegaly and hepatic steatosis. 2. Large amount of stool in the colon, suggesting constipation. 3. No other acute abnormalities in the abdomen or pelvis to explain the patient's symptoms. Chest X-Ray 12/12/22 23:58 IMPRESSION: Clear lungs. Assessment and Plan (1) Abdominal pain: Status: Acute (2) Fever: Status: Acute Plan This is a 57-year-old female with pertinent history of schizophrenia, vbg-weumglh-pleusdbjr diabetes mellitus, essential hypertension, COPD who presents to the emergency department for evaluation of abdominal discomfort. #. Sirs positive, unclear source: Will admit patient and continue empiric IV antibiotics. Resuscitated with IV crystalloids. Lactic acid and blood culture obtained. CT scan without acute abnormality. Obtaining ultrasound of the abdomen to look at gallbladder and biliary tree. Consider GI consult if symptoms continue. Clear liquid diet and advance as tolerated #. Acute lactic acidosis due to sepsis. Trending down with fluid resuscitation #. Jcu-xhrrztm-tmmqcysez diabetes mellitus: Hold metformin. Initiating Accu- Cheks with sliding scale insulin #. Schizophrenia: Continue home mood stabilizers #. Essential hypertension: Hold home antihypertensives in the setting of sepsis. Resume as appropriate Med rec pending DVT prophylaxis: Lovenox 40 mg daily Clear liquid diet Full code Admit as inpatient and will require two night minimum hospital stay for IV antibiotics Time Spent With Patient Time: Total time managing care of this patient today ____ minutes. Quality Stroke Does the patient have a stroke diagnosis?: No VTE Prior VTE?: No VTE Risk Level:: Medical - moderate - high VTE Device Contraindication: Treatment Not Indicated VTE Drug Contraindication: N/A - Med Ordered
[2022-12-13 00:41] LABS: IDNOW Serial# 6674DD1D; Influenza A Negative (Negative); Influenza B2 Negative (Negative)
[2022-12-13] MEDS: Morphine Sulfate 2 MG/ML CARTRIDGE IVPUSH ×7 (00:43→21:36)
[2022-12-13] MEDS: Acetaminophen 325 MG TABLET 650 MG PO (00:44)
[2022-12-13] MEDS: metroNIDAZOLE/NS 500 MG/100 ML PIGGYBACK 100 MG IV (00:45)
[2022-12-13] MEDS: Piperacillin Sodium/Tazobactam 4.5 GM in 0.9 % Sodium Chloride 100 ML IV ×4 (02:00→19:53)
--- NOTE | 2022-12-13 02:37 | PC.NURSE ---
Assumed care of pt in room 15 ED from Clarence HAN around 00:00. At that time pt was displaying a low grade temp, MD made aware and medication was given for the fever. . Pt is resting in bed, denies any CP, SOB, feeling of faint, or numbness/tingling to extremities. Pt has been informed of the care plan and what should be expected once treatment has been met. pt verbalized understanding, all questions answered. pt continues to be on monitor, oxygen temp and BP cuff to left arm.
[2022-12-13] MEDS: Melatonin 3 MG TABLET 6 MG PO (03:27)
[2022-12-13 03:57] LABS: HBS Num1 1.77 mIU/mL (0-7.99); HBc Num1 0.14 S/CO (0.00-0.79); HBsAGNum1 0.51 S/CO (0.00-0.99); Hepatitis A Antibody IgM 0.29 Index (0-0.79); Hepatitis B Core Antibody Nonreactive (Nonreactive); Hepatitis B Surface Antigen Negative (Negative); ~HepC Num1 0.71 S/CO (0.00-0.79); ~Hepatitis A Antibody IgM Nonreactive (Nonreactive); ~Hepatitis B Surface Antibody NONREACTIVE (Nonreactive); ~Hepatitis C Antibody Nonreactive (Nonreactive)
--- NOTE | 2022-12-13 04:28 | MHC.EDTECH ---
Patient rand blankenship,Patient had to use the bathroom,Patient assisted to commode and urinated 200cc of urine,cleaned and repositioned in bed. Belongings list done and wristband attached to cane. Call blankenship in reach.
[2022-12-13 06:03] LABS: MANUAL DIFF FLAG NO
[2022-12-13 06:04] LABS: Ammonia 52 umol/L (13-55)
[2022-12-13 06:07] LABS: Basophils Percent Auto 0.2 % (0-2); Eosinophils Absolute Auto 0.1 X10*3/uL (0.0-0.4); Eosinophils Percent Auto 1.1 % (0-4); Hematocrit 33.1 % (37.0-47.0); Hemoglobin 10.3 g/dl (12.0-16.0); Imm Gran Abs Auto 0.05 X10*3/uL (0.00-0.03); Imm Gran Pct Auto 0.6 % (0.0-0.4); Lymphocytes Absolute Auto 2.6 X10*3/uL (1.2-4.9); Mean Corpuscular HGB Conc 31.1 g/dl (31.0-35.0); Mean Corpuscular Hemoglobin 28.1 pg (27.0-33.0); Mean Corpuscular Volume 90.4 fL (80.0-98.0); Mean Platelet Volume 10.8 fL (9.4-12.3); Monocytes Absolute Auto 0.8 X10*3/uL (0.1-1.2); Monocytes Percent Auto 10.2 % (2-11); Neutrophils Absolute Auto 4.7 x10*3/uL (2.0-8.3); Neutrophils Percent Auto 56.9 % (45-73); Platelet Count 277 X10*3/uL (160-400); Red Blood Count 3.66 X10*6/uL (4.20-5.50); Red Cell Distribution Width 16.6 % (11.0-16.0); White Blood Count 8.3 X10*3/uL (4.8-10.8)
[2022-12-13 06:18] LABS: Anion Gap 13 (12-20); Blood Urea Nitrogen 11 mg/dL (9-16); Calcium 8.2 mg/dL (8.4-10.2); Carbon Dioxide 28 mmol/L (22-29); Chloride 104 mmol/L (96-108); Creatinine Clr Calc Pharmacy 118.7; Estimated Glomerular Filt Rate > 60; Glucose Random 94 mg/dL (60-115); Potassium 3.7 mmol/L (3.3-5.1); Sodium 141 mmol/L (135-145)
--- NOTE | 2022-12-13 06:19 | MHC.EDTECH ---
Vitals taken,patient repositioned,call blankenship in reach
[2022-12-13 07:25] LABS: Glucose, Whole Blood 95 mg/dL (60-115)
--- NOTE | 2022-12-13 08:21 | PHA.MEDREC ---
Pharmacy Consult ? Medication Reconciliation Pharmacy has completed the medication reconciliation. [facility] [employer] services used, first pt said to contact [facility], but did not have aphone number available. Went through med list and pt confirmed yes or no, did note dosages and timing and prn. I asked multiple times about clozaril and pt states she takes 100mg in the morning and 300mg last night, did confirm that dose was taken yesterday.
[2022-12-13] MEDS: Enoxaparin Sodium 40 MG/0.4 ML SYRINGE SUBCUT (09:44)
[2022-12-13] MEDS: 0.9 % Sodium Chloride Flush 3 ML SYRINGE IVFLUSH ×3 (09:45→19:57)
--- NOTE | 2022-12-13 09:54 | PC.NURSE ---
Alert and oriented, resp even and unlabored. IV antibiotics infusing, pt complaining of abdominal pain aware next dose of morphine is due 1130. Call blankenship within reach
[2022-12-13 12:27] LABS: Glucose, Whole Blood 92 mg/dL (60-115)
--- NOTE | 2022-12-13 12:27 | PC.NURSE ---
[facility] nurse [phone] and [phone]
[2022-12-13 17:04] LABS: Glucose, Whole Blood 112 mg/dL (60-115)
[2022-12-13 20:33] LABS: Glucose, Whole Blood 85 mg/dL (60-115)
[2022-12-14] MEDS: Piperacillin Sodium/Tazobactam 4.5 GM in 0.9 % Sodium Chloride 100 ML IV ×4 (01:27→20:28)
[2022-12-14] MEDS: Morphine Sulfate 2 MG/ML CARTRIDGE IVPUSH ×3 (02:48→15:10)
[2022-12-14 03:50] VITALS: BP 131/69; PULSE 88; RESP 18; TEMP 36.3; O2SAT 95
[2022-12-14] MEDS: Acetaminophen 325 MG TABLET 650 MG PO ×2 (05:01→20:36)
[2022-12-14 07:50] LABS: Glucose, Whole Blood 90 mg/dL (60-115)
[2022-12-14 08:00] VITALS: BP 146/83; PULSE 90; RESP 20; TEMP 36.3; O2SAT 92
[2022-12-14 08:45] LABS: Neut%MD 53.8 %; Neutrophils Absolute Auto 3.8 x10*3/uL (2.0-8.3); WBCANC 7.1 X10*3/uL
[2022-12-14] MEDS: Enoxaparin Sodium 40 MG/0.4 ML SYRINGE SUBCUT (09:01)
[2022-12-14] MEDS: metFORMIN HCl ER 500 MG TAB.ER.24H PO ×2 (09:01→20:36)
[2022-12-14] MEDS: Sucralfate 1 GM TABLET PO ×3 (09:01→20:33)
[2022-12-14] MEDS: Montelukast Sodium 10 MG TABLET PO (09:01)
[2022-12-14] MEDS: 0.9 % Sodium Chloride Flush 3 ML SYRINGE IVFLUSH ×3 (09:02→20:37)
[2022-12-14] MEDS: cloZAPine 100 MG TABLET PO (09:37)
[2022-12-14] MEDS: FLUoxetine HCl 20 MG CAPSULE PO (09:37)
[2022-12-14] MEDS: polyethylene glycoL 3350 17 GM POWD.PACK PO (10:14)
[2022-12-14] MEDS: Docusate Sodium 100 MG CAPSULE PO (10:14)
[2022-12-14 11:20] LABS: Glucose, Whole Blood 109 mg/dL (60-115)
--- NOTE | 2022-12-14 13:20 | HO.PM.IMPN ---
Subjective Subjective Date of Service: 12/15/22 Interval History: seen w/ bankruptcy paralegal, still c/o some abd discomfort last bm 2 to 3 days ago Physical Exam Vital Signs: Vital Signs: Last Vital Signs Temp 97.4 F 12/14/22 08:00 Pulse 90 12/14/22 08:00 Resp 20 12/14/22 08:00 BP 146/83 H 12/14/22 08:00 Pulse Ox 92 12/14/22 08:00 O2 Del Method Room Air 12/14/22 08:00 BMI result Body Mass Index 30.8 Const: Other: General: AO X 3, no acute distress Resp: CTA bilateral CVS: S1,S2,RRR GI: +BS, NT, no distention Skin: No rash Neuro: motor grossly intact Psych: appropriate affect Objective Data Active Medications Acetaminophen (Acetaminophen 325 Mg Tablet) 650 mg PO Q6H PRN PRN Reason: Pain, Mild (Pain Scale 1-3) Last Admin: 12/14/22 05:01 Dose: 650 mg Documented By: EMERALD Albuterol Sulfate (Albuterol Sulfate 90 Mcg 8 Gm Inhaler) 2 puff INHALE Q4H PRN PRN Reason: Shortness Of Breath Clonazepam (Clonazepam 1 Mg Tablet) 1 mg PO BEDTIME LAXMI Clozapine (Clozapine 100 Mg Tablet) 100 mg PO DAILY [facility] Last Admin: 12/14/22 09:37 Dose: 100 mg Documented By: STEVE Clozapine (Clozapine 100 Mg Tablet) 300 mg PO BEDTIME LAXMI Divalproex Sodium (Divalproex Sodium Er 500 Mg Tab.Er.24h) 1,500 mg PO BEDTIME LAXMI Docusate Sodium (Docusate Sodium 100 Mg Capsule) 100 mg PO BID PRN PRN Reason: Constipation Last Admin: 12/14/22 10:14 Dose: 100 mg Documented By: STEVE Enoxaparin Sodium (Enoxaparin Sodium 40 Mg/0.4 Ml Syringe) 40 mg SUBCUT Q24H [facility] Last Admin: 12/14/22 09:01 Dose: 40 mg Documented By: STEVE Fluoxetine HCl (Fluoxetine Hcl 20 Mg Capsule) 20 mg PO DAILY [facility] Last Admin: 12/14/22 09:37 Dose: 20 mg Documented By: STEVE Glucose (Glucose Gel 15 Gm Gel..Gram.) 15 gm PO Q15M PRN; Protocol PRN Reason: per Hypoglycemia Standing Ord. Piperacillin Sod/Tazobactam (Sod 4.5 gm/ Sodium Chloride) 100 mls @ 200 mls/hr IV Q6H [facility] Last Infusion: 12/14/22 10:20 Dose: 0 mls/hr Documented By: STEVE Dextrose (D10) 250 mls @ 750 mls/hr IV Q15M PRN; Protocol PRN Reason: per Hypoglycemia Standing Ord. Insulin Human Lispro (Insulin Lispro 100 Unit/Ml 3 Ml Vial) 0 unit SUBCUT QIDACHS [facility]; Protocol Last Admin: 12/14/22 12:36 Dose: Not Given Documented By: STEVE Non-Admin Reason: No Insulin Coverage Lisinopril (Lisinopril 10 Mg Tablet) 10 mg PO BEDTIME [facility]; Protocol Melatonin (Melatonin 3 Mg Tablet) 6 mg PO BEDTIME PRN PRN Reason: Insomnia Last Admin: 12/13/22 03:27 Dose: 6 mg Documented By: JAYDEN Metformin HCl (Metformin Hcl Er 500 Mg Tab.Er.24h) 500 mg PO BID [facility] Last Admin: 12/14/22 09:01 Dose: 500 mg Documented By: STEVE Montelukast Sodium (Montelukast Sodium 10 Mg Tablet) 10 mg PO DAILY [facility] Last Admin: 12/14/22 09:01 Dose: 10 mg Documented By: STEVE Morphine Sulfate (Morphine Sulfate 2 Mg/Ml Cartridge) 2 mg IVPUSH Q4H PRN; Protocol PRN Reason: Pain, Severe (Pain Scale 7-10) Last Admin: 12/14/22 09:49 Dose: 2 mg Documented By: STEVE Omeprazole (Omeprazole 20 Mg Capsule.Dr) 20 mg PO DAILY@1630 PRN PRN Reason: Indigestion Ondansetron HCl (Ondansetron Hcl 4 Mg/2 Ml Vial) 4 mg IVPUSH Q8H PRN PRN Reason: Nausea and Vomiting Pharmacy Consult (Consult Rx Perform Med Rec) 1 each MISCELLANE ONCE PRN PRN Reason: Consult order Polyethylene Glycol (Polyethylene Glycol 3350 17 Gm Powd.Pack) 17 gm PO DAILY PRN PRN Reason: Constipation Last Admin: 12/14/22 10:14 Dose: 17 gm Documented By: HO.JERUSIA Senna (Sennosides 8.6 Mg Tablet) 17.2 mg PO BEDTIME PRN PRN Reason: constipation Sodium Chloride (0.9 % Sodium Chloride Flush 3 Ml Syringe) 3 ml IVFLUSH QSHIFT [facility] Last Admin: 12/14/22 09:02 Dose: 3 ml Documented By: STEVE Sucralfate (Sucralfate 1 Gm Tablet) 1 gm PO TID [facility] Last Admin: 12/14/22 09:01 Dose: 1 gm Documented By: STEVE Labs 12/13/22 05:53 12/13/22 05:53 Labs: Laboratory Results - last 24 hr 12/13/22 12/13/22 12/14/22 16:53 20:22 07:42 Absolute Neuts (auto) POC Glucose 112 85 90 12/14/22 12/14/22 08:32 11:14 Absolute Neuts (auto) 3.8 POC Glucose 109 Microbiology Microbiology Results: Microbiology 12/12/22 20:49 Blood Culture - Preliminary Blood - Venous No growth after 24 hours. 12/12/22 18:21 Blood Culture - Preliminary Blood - Venous No growth after 24 hours. Assessment and Plan (1) Abdominal pain: Status: Acute Plan This is a 57-year-old female with pertinent history of schizophrenia, zjg-xaevhgc-oealzwihr diabetes mellitus, essential hypertension, COPD who presents to the emergency department for evaluation of abdominal discomfort. #. SIRS with abdominal pain, CT no acute imflamatory process just constipation #. Severe constipation--enema and other bowel regimne #. Acute lactic acidosis not due to sepsis. Trending down with fluid resuscitation #. Ulx-hadsybw-jwknbuoyk diabetes mellitus: Hold metformin. SSI #. Schizophrenia: Continue home mood stabilizers #. Essential hypertension: Hold home antihypertensives in the setting of sepsis. Resume as appropriate Med rec pending DVT prophylaxis: Lovenox 40 mg daily Clear liquid diet Full code Admit as inpatient and will require two night minimum hospital stay for IV antibiotics Time Spent With Patient Time: Total time managing care of this patient today ____ minutes. Quality Stroke Does the patient have a stroke diagnosis?: No VTE Prior VTE?: No VTE Risk Level:: Medical - moderate - high VTE Device Contraindication: Treatment Not Indicated VTE Drug Contraindication: N/A - Med Ordered
--- NOTE | 2022-12-14 14:39 | MHC.CM.PN ---
PATIENT LIVES WITH HER HCP/PANEL INSTALLER, JOSE ENRIQUE HCP ON FILE AND VERIFIED. PATIENT RELIES ON A CANE FOR AMBULATION ASSIST. [facility] [employer] MAN MANAGES PATIENT MED ADMINISTRATION. [facility] PCP VERIFIED. PATIENT IS HOPING TO RETURN HOME AT OR WITH RESUMPTION OF SERVICES.
[2022-12-14 15:33] VITALS: BP 158/81; PULSE 77; RESP 16; TEMP 36.1; O2SAT 94
[2022-12-14 16:08] LABS: Glucose, Whole Blood 93 mg/dL (60-115)
[2022-12-14] MEDS: Sodium Phosphate,Mono-Dibasic 133 ML ENEMA PR (16:26)
[2022-12-14 19:49] VITALS: PULSE 93; RESP 17; TEMP 36.6; O2SAT 94
[2022-12-14 20:09] LABS: Glucose, Whole Blood 117 mg/dL (60-115)
[2022-12-14] MEDS: Divalproex Sodium ER 500 MG TAB.ER.24H 1500 MG PO (20:32)
[2022-12-14] MEDS: lisinopriL 10 MG TABLET PO (20:33)
[2022-12-14] MEDS: cloZAPine 100 MG TABLET 300 MG PO (20:33)
[2022-12-14] MEDS: Insulin Lispro 100 UNIT/ML 3 ML VIAL SUBCUT (20:35)
[2022-12-14] MEDS: clonazePAM 1 MG TABLET PO (20:35)
[2022-12-14 20:36] VITALS: BP 158/80
[2022-12-15] MEDS: Piperacillin Sodium/Tazobactam 4.5 GM in 0.9 % Sodium Chloride 100 ML IV ×2 (01:52→08:20)
[2022-12-15] MEDS: Morphine Sulfate 2 MG/ML CARTRIDGE IVPUSH ×2 (02:02→06:18)
[2022-12-15 02:36] VITALS: RESP 18
[2022-12-15 03:56] VITALS: BP 129/73; PULSE 78; RESP 16; TEMP 36; O2SAT 93
[2022-12-15 07:00] VITALS: RESP 18
[2022-12-15 07:23] VITALS: BP 140/81; PULSE 75; RESP 16; TEMP 37; O2SAT 91
[2022-12-15 07:34] LABS: Glucose, Whole Blood 97 mg/dL (60-115)
[2022-12-15] MEDS: metFORMIN HCl ER 500 MG TAB.ER.24H PO (08:19)
[2022-12-15] MEDS: Enoxaparin Sodium 40 MG/0.4 ML SYRINGE SUBCUT (08:19)
[2022-12-15] MEDS: Montelukast Sodium 10 MG TABLET PO (08:19)
[2022-12-15] MEDS: FLUoxetine HCl 20 MG CAPSULE PO (08:19)
[2022-12-15] MEDS: Docusate Sodium 100 MG CAPSULE PO (08:19)
[2022-12-15] MEDS: cloZAPine 100 MG TABLET PO (08:19)
[2022-12-15] MEDS: Sucralfate 1 GM TABLET PO (08:19)
[2022-12-15] MEDS: 0.9 % Sodium Chloride Flush 3 ML SYRINGE IVFLUSH (08:21)
[2022-12-15] MEDS: polyethylene glycoL 3350 17 GM POWD.PACK PO (08:25)
[2022-12-15 11:21] LABS: Glucose, Whole Blood 97 mg/dL (60-115)
--- NOTE | 2022-12-15 12:45 | PM.DS ---
DS: Providers Provider Date of Service: 12/15/22 Date of admission: 12/13/22 00:34 Primary care physician: Brenna Brower MD DS: Diagnosis Discharge Diagnosis (1) Abdominal pain: Status: Acute DS: Summary Hospital Course Hospital Course: Chief Complaint: Abdominal Pain This is a 57-year-old female with pertinent history of schizophrenia, hyh-pmeqqqj-gzggqfqjw diabetes mellitus, essential hypertension, COPD who presents to the emergency department for evaluation of abdominal discomfort.? Patient states she started having abdominal discomfort 2 days ago, a generalized, constant, nonradiating and without any relieving factors.? It was associated with abdominal distention, nausea and nonbloody emesis.? Patient is unable to tolerate p.o. intake due to nausea and vomiting.? She saw her PCP today who sent her to the ER for further evaluation.? Patient also endorses fevers and chills.? Denies chest discomfort, palpitations, shortness of breath, changes in urinary or bowel habits.? She last had a bowel movement yesterday which was normal. In the emergency department, patient was found to be septic. Hospital course: Patient presented with abdominal pain and a CT scan showed large amount of stool throughout the colon. There was no acute inflammatory changes. Ultrasound of the abdomen also showed no acute finding. She was empirically started on antibiotics because she misses SIRS criteria however the continue not to be any source of infection and this is likely related to the constipation. She has been treated aggressively with bowel regimen and has had multiple large bowel movement and is feeling much better and therefore will be discharged home with bowel regimen and also advised to drink plenty of water take walks to prevent recurrent episodes of constipation. Time Spent with Patient Time attestation: Total time managing care of this patient today ____ minutes. Discharge coordination time: Greater than 30 minutes Quality: Safe Use of Opioids Does Pt have an Active Cancer Diagnosis on the Problem List?: No Quality: Stroke Does the patient have a stroke diagnosis?: No Physical Exam Vital Signs: Vital Signs: Last Vital Signs Temp 98.6 F 12/15/22 07:23 Pulse 75 12/15/22 07:23 Resp 16 12/15/22 07:23 BP 140/81 H 12/15/22 07:23 Pulse Ox 91 L 12/15/22 07:23 O2 Del Method Room Air 12/15/22 07:23 BMI result Body Mass Index 30.8 DS: Data Data Completed and Pending Labs on day of discharge: Laboratory Results - last 24 hr 12/14/22 12/14/22 12/15/22 16:04 20:05 07:20 POC Glucose 93 117 H 97 12/15/22 11:18 POC Glucose 97 Preliminary micro results at discharge 12/12/22 20:49 Blood Culture - Preliminary Blood - Venous No growth after 48 hours. 12/12/22 18:21 Blood Culture - Preliminary Blood - Venous No growth after 48 hours. Discharge Plan Discharge Anticipated Discharge Date/Time: 12/15/22 12:20 Patient Disposition: Home, Self-Care Discharge Diagnosis: Abdominal pain due to severe constipation Referrals: Brenna Liriano MD [Primary Care Provider] - 1 Week Discharge Medications: New docusate sodium [Colace] 100 mg capsule 100 mg PO BID Qty: 60 0RF polyethylene glycol 3350 [Miralax] 17 gram/dose powder 17 g PO DAILY Qty: 510 0RF magnesium hydroxide [Milk of Magnesia] 400 mg/5 mL suspension 400 mg PO BEDTIME PRN (Reason: constipation) Qty: 355 0RF Continued clozapine 50 mg tablet 100 mg PO DAILY sennosides [senna] 8.6 mg tablet 17.2 mg PO BEDTIME PRN (Reason: constipation) clozapine 100 mg tablet 300 mg PO BEDTIME sucralfate 1 gram tablet 1 g PO TID clonazepam 1 mg tablet 1 mg PO BEDTIME tramadol 50 mg tablet 50 mg PO BID PRN (Reason: Pain) lisinopril 10 mg tablet 10 mg PO BEDTIME divalproex 500 mg tablet extended release 24 hr 1,500 mg PO BEDTIME omeprazole 20 mg capsule,delayed release(DR/EC) 20 mg PO DAILY@1630 PRN (Reason: Indigestion) montelukast 10 mg tablet 10 mg PO DAILY bisacodyl 5 mg tablet,delayed release (DR/EC) 5 - 10 mg PO BEDTIME albuterol sulfate [Ventolin HFA] 90 mcg/actuation HFA aerosol inhaler 2 puff INHALATION Q4-6H PRN (Reason: Shortness Of Breath) fluoxetine 20 mg capsule 20 mg PO DAILY metformin 500 mg tablet extended release 24 hr 500 mg PO BID fluticasone propionate [Flovent HFA] 110 mcg/actuation HFA aerosol inhaler 2 puff INHALATION BID Discharge Orders: Discharge Order (Routine); Ordered 12/15/22 Ordered By: Dejon Sanderson Diet: Advance to usual diet Activity on Discharge: As tolerated Stand Alone Forms: Patient Portal Discharge page Care Plan Goals: Full recovery from abdominal pain and constipation Health Concerns: severe constipation with abdominal pain Plan of Treatment: Take colace, Miralax, mild of magnesia and Bisacodyl as directed for contipation drink plenty of fluid and take walks daily to avoid constipation Assessment: as above
--- NOTE | 2022-12-15 13:53 | MHC.CM.PN ---
pt dcd home no skilled services ordered by
== END 2022-12-15 14:18 | disposition home or self-care (01) | DRG 254 ==
LOC: HO.ED 12-13 00:30 → HO.EDOVER 12-13 00:42 → HO.S3 12-13 13:38
PROVIDERS: Hospitalist; Physician Assistant; Admitting Provider Student in an Organized Health Care Education/Training Program; Emergency Provider Emergency Medicine; PCP Internal Medicine; Visit Provider Internal Medicine
DX: K59.00 Constipation, unspecified (principal); E87.21 Acute metabolic acidosis; R65.10 Systemic inflammatory response syndrome (SIRS) of non-infectious origin without acute organ dysfunction; E78.5 Hyperlipidemia, unspecified; E11.9 Type 2 diabetes mellitus without complications; J44.9 Chronic obstructive pulmonary disease, unspecified; F41.9 Anxiety disorder, unspecified; F20.9 Schizophrenia, unspecified; I10 Essential (primary) hypertension; J45.909 Unspecified asthma, uncomplicated; Z20.822 Contact with and (suspected) exposure to COVID-19; Z88.0 Allergy status to penicillin; Z88.5 Allergy status to narcotic agent; Z88.6 Allergy status to analgesic agent; Z88.8 Allergy status to other drugs, medicaments and biological substances; Z79.51 Long term (current) use of inhaled steroids; Z79.899 Other long term (current) drug therapy
CPT/HCPCS: 36415; 71045; 74177; 76705; 80048; 80053; 80307; 81003; 82077; 82140; 82947; 83605; 83690; 83735; 85025; 85048; 86704; 86706; 86709; 86803; 87040; 87340; 87502; 87635; 99285; J0696; J1650; J2270; J2543; Q9967

== ENCOUNTER 2022-12-28 10:25 | Outpatient (REF) | payer MEDICAID, SELFPAY ==
[2022-12-28 10:47] LABS: MANUAL DIFF FLAG NO
[2022-12-28 11:03] LABS: Basophils Percent Auto 0.2 % (0-2); Eosinophils Absolute Auto 0.1 X10*3/uL (0.0-0.4); Eosinophils Percent Auto 0.8 % (0-4); Hematocrit 36.4 % (37.0-47.0); Hemoglobin 11.3 g/dl (12.0-16.0); Imm Gran Abs Auto 0.04 X10*3/uL (0.00-0.03); Imm Gran Pct Auto 0.4 % (0.0-0.4); Lymphocytes Absolute Auto 2.2 X10*3/uL (1.2-4.9); Lymphocytes Percent Auto 24.8 % (20-40); Mean Corpuscular Hemoglobin 28.3 pg (27.0-33.0); Mean Platelet Volume 11.8 fL (9.4-12.3); Monocytes Absolute Auto 0.7 X10*3/uL (0.1-1.2); Monocytes Percent Auto 7.7 % (2-11); Neutrophils Absolute Auto 5.9 x10*3/uL (2.0-8.3); Neutrophils Percent Auto 66.1 % (45-73); Platelet Count 297 X10*3/uL (160-400); Red Cell Distribution Width 16.1 % (11.0-16.0); White Blood Count 8.9 X10*3/uL (4.8-10.8)
== END 2022-12-28 10:26 | disposition home or self-care (01) ==
LOC: HO.LAB 10:25
PROVIDERS: Visit Provider Clinical Nurse Specialist Psychiatric/Mental Health, Adult
DX: Z79.899 Other long term (current) drug therapy (principal)
CPT/HCPCS: 36415; 85025

== ENCOUNTER 2023-01-25 09:16 | Outpatient (REF) | payer MEDICAID, SELFPAY ==
[2023-01-25 09:29] LABS: MANUAL DIFF FLAG NO
[2023-01-25 09:43] LABS: Basophils Percent Auto 0.2 % (0-2); Eosinophils Absolute Auto 0.1 X10*3/uL (0.0-0.4); Eosinophils Percent Auto 0.6 % (0-4); Hematocrit 36.1 % (37.0-47.0); Hemoglobin 11.1 g/dl (12.0-16.0); Imm Gran Abs Auto 0.04 X10*3/uL (0.00-0.03); Imm Gran Pct Auto 0.5 % (0.0-0.4); Lymphocytes Percent Auto 35.2 % (20-40); Mean Corpuscular HGB Conc 30.7 g/dl (31.0-35.0); Mean Corpuscular Hemoglobin 27.8 pg (27.0-33.0); Mean Corpuscular Volume 90.3 fL (80.0-98.0); Mean Platelet Volume 11.5 fL (9.4-12.3); Monocytes Absolute Auto 0.7 X10*3/uL (0.1-1.2); Monocytes Percent Auto 8.4 % (2-11); Neut%MD 55.1 %; Neutrophils Absolute Auto 4.7 x10*3/uL (2.0-8.3); Neutrophils Percent Auto 55.1 % (45-73); Platelet Count 247 X10*3/uL (160-400); Red Cell Distribution Width 15.9 % (11.0-16.0); WBCANC 8.6 X10*3/uL; White Blood Count 8.6 X10*3/uL (4.8-10.8)
== END 2023-01-25 09:17 | disposition home or self-care (01) ==
LOC: HO.LABR 09:16
PROVIDERS: Visit Provider Clinical Nurse Specialist Psychiatric/Mental Health, Adult
DX: Z79.899 Other long term (current) drug therapy (principal)
CPT/HCPCS: 36415; 85025

== ENCOUNTER 2023-02-16 11:57 | Outpatient (REF) | payer MEDICAID, SELFPAY ==
--- NOTE | ~2023-02-16 | XR_ITS ---
EXAMINATION: XR chest 2V CLINICAL INFORMATION: Cough COMPARISON: Prior chest x-ray November 2022 TECHNIQUE: XR chest 2V Lungs and Hui: Both lungs are clear. Pleura: Normal. Costophrenic angles are sharp. No pneumothorax. Heart: The heart is normal in size. Mediastinum: The mediastinum is within normal limits.. Bones: Skeletal structures included are normal for patient's age. XR/XR chest 2V IMPRESSION: No radiographic evidence of acute cardiopulmonary disease.
== END 2023-02-16 11:58 | disposition home or self-care (01) ==
LOC: HO.HHCX 11:57
PROVIDERS: Visit Provider Family Medicine
DX: J44.1 Chronic obstructive pulmonary disease with (acute) exacerbation (principal)
CPT/HCPCS: 71046

== ENCOUNTER 2023-02-28 12:38 | Outpatient (REF) | payer MEDICAID, SELFPAY ==
[2023-02-28 14:00] LABS: Basophils Percent Auto 0.3 % (0-2); Eosinophils Absolute Auto 0.1 X10*3/uL (0.0-0.4); Eosinophils Percent Auto 0.9 % (0-4); Hematocrit 38.8 % (37.0-47.0); Hemoglobin 11.7 g/dl (12.0-16.0); Imm Gran Abs Auto 0.05 X10*3/uL (0.00-0.03); Imm Gran Pct Auto 0.4 % (0.0-0.4); Lymphocytes Absolute Auto 4.4 X10*3/uL (1.2-4.9); Lymphocytes Percent Auto 39.6 % (20-40); MANUAL DIFF FLAG SCAN; Mean Corpuscular HGB Conc 30.2 g/dl (31.0-35.0); Mean Corpuscular Hemoglobin 27.7 pg (27.0-33.0); Mean Corpuscular Volume 91.7 fL (80.0-98.0); Mean Platelet Volume 12.4 fL (9.4-12.3); Monocytes Percent Auto 8.5 % (2-11); Neutrophils Absolute Auto 5.6 x10*3/uL (2.0-8.3); Neutrophils Percent Auto 50.3 % (45-73); Platelet Count 285 X10*3/uL (160-400); Red Blood Count 4.23 X10*6/uL (4.20-5.50); Red Cell Distribution Width 15.8 % (11.0-16.0); SCAN SMEAR FLAG 1; White Blood Count 11.2 X10*3/uL (4.8-10.8)
[2023-02-28 14:25] LABS: SLIDE REVIEW VERIFIED
== END 2023-02-28 12:39 | disposition home or self-care (01) ==
LOC: HO.LABR 12:38
PROVIDERS: PCP Internal Medicine; Visit Provider Clinical Nurse Specialist Psychiatric/Mental Health, Adult
DX: Z79.899 Other long term (current) drug therapy (principal)
CPT/HCPCS: 36415; 85025

== ENCOUNTER 2023-03-28 09:01 | Outpatient (AMB) | payer MEDICAID, SELFPAY ==
--- NOTE | 2023-03-28 09:34 | MHC.OFFVIS ---
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[place]/ HHC/tachycardia Intake Note: NPV Labor Training Manager Required: Yes Labor Training Manager Language: Kittitian Accompanied by: Connie Scratcher - CHD Allergies diazepam [From Valium] Allergy (Unknown, Verified 03/28/23 09:37) Unknown haloperidol [From Haldol] Allergy (Unknown, Verified 03/28/23 09:37) Unknown Penicillins Allergy (Unknown, Verified 03/28/23 09:37) Unknown risperidone [From Risperdal] Allergy (Unknown, Verified 03/28/23 09:37) Unknown aspirin [Aspirin] Adverse Reaction (Intermediate, Verified 03/28/23 09:37) Vomiting trazodone [TRAZODONE] Adverse Reaction (Intermediate, Verified 03/28/23 09:37) NAUSEA & VOMITING Medication List - Last Reconciled 03/28/23 by Jairo Bailey MD albuterol sulfate 90 mcg/actuation (Ventolin HFA) 2 puffs inhalation Q4-6H PRN bisacodyl 5 - 10 mg PO BEDTIME clonazepam 1 mg PO BEDTIME clozapine 100 mg PO DAILY clozapine 300 mg PO BEDTIME divalproex ER 1,500 mg PO BEDTIME docusate sodium (Colace) 100 mg PO BID fluoxetine 20 mg PO DAILY fluticasone propionate 110 mcg/actuation (Flovent HFA) 2 puffs inhalation BID lisinopril 10 mg PO BEDTIME loratadine (Allergy Relief (loratadine)) 10 mg PO DAILY magnesium hydroxide (Milk of Magnesia) 400 mg (5 mL) PO BEDTIME PRN metformin ER 500 mg PO BID montelukast 10 mg PO DAILY omeprazole 20 mg PO DAILY@1630 PRN polyethylene glycol 3350 (Miralax) 17 grams PO DAILY sennosides (senna) 17.2 mg PO BEDTIME PRN sucralfate 1 g PO TID tramadol 50 mg PO BID PRN HPI HPI Comments History of Present Illness Details Brenna has been referred for evaluation of tachycardia. Per primary care physician's note, she has persistent sinus tachycardia. Patient herself does not have any known cardiac issues. She denies any history of coronary artery disease or myocardial infarction or cardiomyopathy. She does not really feel any symptoms either like chest pain or palpitations. She does have some shortness of breath but she also has history of COPD, smoking and asthma. Also listed have schizophrenia. 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 [facility] Medical History Anxiety Asthma Chronic mental illness COPD (chronic obstructive pulmonary disease) Diabetes Hyperlipidemia Morbid obesity due to excess calories Schizophrenia Surgical History H/O right knee surgery History of appendectomy History of tubal ligation Family History Father Throat cancer Mother CVA (cerebral vascular accident) Brother Drug overdose Sister No problems noted. Sister No problems noted. Son No problems noted. Son No problems noted. 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: Friend(s) Household Members Other:: Lanny Soto, Inocencio Soto, - foster parents Housing: House Do you presently have visiting nurse or other home services: Yes (Meds administered by [facility]) Unable to assess alcohol history related to: Unknown Alcohol intake: never Patient Tobacco Use Status: Current everyday Tobacco user Tobacco use type: Cigarette Cigarettes Per Day: 10 e-Cigarette/Vaping Use: Never Used Second Hand Smoke Exposure: No Advance Directives Date on File: 12/13/22 service: No Current occupational status: disabled Sexual orientation: Don't Know Review of Systems Const Denies chills, Denies daytime sleepiness, Denies fatigue, Denies fever(s), Denies frequent falls, Denies night sweats, Denies snoring, Denies weakness, Denies weight gain and Denies weight loss Eyes Denies loss of vision ENT Denies dizziness and Denies hearing loss Card Denies chest pain, Denies chest pain with activity, Denies syncope, Denies rapid heart rate, Denies edema, Denies claudication, Denies leg edema, Denies lightheadedness, Denies palpitations, Denies dyspnea, Denies dyspnea on exertion and Denies orthopnea Resp Denies cough, Denies excessive phlegm production, Denies dyspnea, Denies dyspnea on exertion, Denies snoring and Denies wheezing GI Denies abdominal pain, Denies hematochezia, Denies change in bowel habits, Denies change in stool character, Denies heartburn, Denies nausea and Denies vomiting Denies hematuria, Denies urinary frequency and Denies dysuria Musc Denies arthralgias, Denies muscle weakness, Denies numbness and Denies tingling Skin/Breast Denies nail changes and Denies rash Neuro Denies Abnormal speech present, Denies dizziness, Denies syncope, Denies frequent falls, Denies loss of vision, Denies memory loss, Denies numbness, Denies tingling and Denies weakness Psych Denies depression and Denies memory loss Endo Denies fatigue and Denies palpitations Aller/Immun Denies wheezing Physical Exam Vital Signs: Last Vital Signs Pulse 85 03/28/23 09:40 BP 130/84 03/28/23 09:40 BMI result Body Mass Index 34.2 Const General: comfortable and no acute distress Orientation/consciousness: patient oriented x3 HEENT Other: Unremarkable Head: Yes normal to inspection Neck Neck: Yes normal visual inspection Chest Chest palpation & inspection: normal inspection of the chest Resp Auscultation: clear to auscultation bilaterally Cardio Palpation: normal PMI Heart sounds: S1 normal heart sound present, S2 normal heart sound present, no gallops, no murmurs and no rubs GI Palpation (GI): Soft to palpation Back/Spine/Pelvis Other: unremarkable Skin General skin exam: no rashes or lesions noted Neuro General: patient oriented x3 Speech: No Abnormal speech present Extrem General: Yes normal to inspection Psych Mental Status: mental status grossly normal Office Procedures EKG Details: EKG with sinus rhythm at 68/Min; no significant ST-T changes and otherwise unremarkable[place] [address]-[id number], Complete Assessment & Plan Assessment & Plan (1) Tachycardia: Code(s): R00.0 - Tachycardia, unspecified Plan In the last EKG from October, underlying rhythm is sinus at 103/Min; no significant ST-T changes and otherwise unremarkable. Normal NJ and corrected QT. Due to the concern for persistent sinus tachycardia from PCP, we will do some basic workup. Sinus tachycardia itself could be related to her comorbidities, primary smoking/COPD. Likely some components of deconditioning. Echocardiogram for cardiac function assessment and evaluate for any cardiomyopathy. 48 hour Holter for average heart rates. If any concerning findings, then can assess further. Otherwise, she does not really have any clear-cut cardiac symptoms and shortness of breath is probably from COPD/smoking. Any case, echocardiogram will be reviewed once completed As above. Discussed with sample case porter who came for the appointment. Orders: Orders CA echo transthoracic complete Today R00.0 - Tachycardia, unspecified, R06.02 - Shortness of breath ECG holter monitor 48 hour Today R00.0 - Tachycardia, unspecified, R00.2 - Palpitations Coding Level of Care Code New Pt Level 3 (23422) Diagnoses Tachycardia R00.0 CPT Codes EKG - CPT: 26702-[id number], Complete ([id number])
[2023-03-28 09:40] VITALS: BP 130/84; PULSE 85; BMI 34.2
== END 2023-03-28 10:10 | disposition home or self-care (01) ==
PROVIDERS: PCP Internal Medicine; Referring Provider Internal Medicine; Visit Provider Internal Medicine
DX: R00.0 Tachycardia, unspecified (principal)
CPT/HCPCS: 93010; 99213

== ENCOUNTER → 2023-03-28 09:01 | Outpatient (BNVA) | payer MEDICAID, SELFPAY | PROVIDERS: PCP Internal Medicine; Referring Provider Internal Medicine; Visit Provider Internal Medicine | DX: R00.0 Tachycardia, unspecified (principal) | CPT/HCPCS: 93005; 99212 ==

== ENCOUNTER 2023-04-03 09:58 | Outpatient (REF) | payer MEDICAID, SELFPAY ==
[2023-04-03 10:28] LABS: MANUAL DIFF FLAG NO
[2023-04-03 10:55] LABS: Basophils Percent Auto 0.4 % (0-2); Eosinophils Absolute Auto 0.1 X10*3/uL (0.0-0.4); Eosinophils Percent Auto 1.3 % (0-4); Hematocrit 34.9 % (37.0-47.0); Hemoglobin 10.8 g/dl (12.0-16.0); Imm Gran Abs Auto 0.03 X10*3/uL (0.00-0.03); Imm Gran Pct Auto 0.4 % (0.0-0.4); Lymphocytes Absolute Auto 3.6 X10*3/uL (1.2-4.9); Lymphocytes Percent Auto 41.5 % (20-40); Mean Corpuscular HGB Conc 30.9 g/dl (31.0-35.0); Mean Corpuscular Hemoglobin 28.1 pg (27.0-33.0); Mean Corpuscular Volume 90.9 fL (80.0-98.0); Mean Platelet Volume 11.5 fL (9.4-12.3); Monocytes Absolute Auto 0.7 X10*3/uL (0.1-1.2); Monocytes Percent Auto 8.4 % (2-11); Neutrophils Absolute Auto 4.1 x10*3/uL (2.0-8.3); Platelet Count 301 X10*3/uL (160-400); Red Blood Count 3.84 X10*6/uL (4.20-5.50); Red Cell Distribution Width 16.3 % (11.0-16.0); White Blood Count 8.6 X10*3/uL (4.8-10.8)
== END 2023-04-03 09:59 | disposition home or self-care (01) ==
LOC: HO.LABR 09:58
PROVIDERS: Visit Provider Clinical Nurse Specialist Psychiatric/Mental Health, Adult
DX: Z79.899 Other long term (current) drug therapy (principal)
CPT/HCPCS: 36415; 85025

== ENCOUNTER → 2023-04-20 12:12 | Outpatient (BNVA) | payer MEDICAID, SELFPAY | PROVIDERS: PCP Internal Medicine; Visit Provider Nurse Practitioner Family ==

== ENCOUNTER 2023-04-24 09:26 | Outpatient (REF) | payer MEDICAID, SELFPAY ==
--- NOTE | ~2023-04-24 | MM_ITS ---
EXAMINATION: MM SCREENING DIGITAL BREAST TOMOSYNTHESIS, BILATERAL CLINICAL INFORMATION: Screening. Asymptomatic. History of benign right MRI breast biopsy in 2019. COMPARISON: Mammography: 04/07/2022, 04/05/2021, 09/30/2020, 03/29/2020, and dating back to 2013. TECHNIQUE: Digital breast tomosynthesis is performed in both the craniocaudal and mediolateral oblique views along with computer-aided detection (CAD). Synthesized 2D images are generated from the tomosynthesis. FINDINGS: The breasts are heterogeneously dense, which may obscure small masses (ACR BI-RADS breast composition Category c). Redemonstration of numerous scattered and loosely grouped predominantly round, punctate, and dystrophic calcifications in both breasts without significant change. Post benign biopsy clip seen slightly outer lower right breast, posterior one third. Parenchymal pattern is unchanged from prior exams. No suspicious pleomorphic calcifications, or areas of architectural distortion. MM/MM tomosynthesis screening BI IMPRESSION: No mammographic evidence of malignancy. Stable benign findings. ASSESSMENT: BI-RADS BI-RADS 2 - Benign Findings RECOMMENDATION: Routine annual mammography screening. 1 year F/U This examination should not preclude the clinical evaluation of a suspicious palpable abnormality. This patient's information was entered into a reminder system with a target due date for their next mammogram.
== END 2023-04-24 09:27 | disposition home or self-care (01) ==
LOC: HO.MAMMO 09:26
PROVIDERS: PCP Internal Medicine; Visit Provider Internal Medicine
DX: Z12.31 Encounter for screening mammogram for malignant neoplasm of breast (principal)
CPT/HCPCS: 77063; 77067

== ENCOUNTER → 2023-04-24 09:30 | Outpatient (BNV) | payer MEDICAID, SELFPAY | PROVIDERS: PCP Internal Medicine; Visit Provider Radiology Diagnostic Radiology | DX: Z12.31 Encounter for screening mammogram for malignant neoplasm of breast (principal) | CPT/HCPCS: 77063; 77067 ==

== ENCOUNTER 2023-04-27 10:02 | Outpatient (AMB) | payer MEDICAID, SELFPAY ==
[2023-04-27 10:04] VITALS: BMI 31.5
--- NOTE | 2023-04-27 10:04 | MHC.OFFVIS ---
Intake Vital Signs 04/27/23 10:04 Height 5 ft 2 in Weight 172 lb BMI 31.5 Intake Visit Reasons: Ov- Left knee pain Intake Note: Brenna is a 57 year old female who presents today for a follow up of her left knee OA. Last injection done 08/25/22. Patient reports that this injetion was only mildly helpful, she reports relief for about 2 months. She feels that her pain is getting worse with time, she is taking Tramadol for ehr pain which is not helpful . Allergies diazepam [From Valium] Allergy (Unknown, Verified 04/27/23 10:04) Unknown haloperidol [From Haldol] Allergy (Unknown, Verified 04/27/23 10:04) Unknown Penicillins Allergy (Unknown, Verified 04/27/23 10:04) Unknown risperidone [From Risperdal] Allergy (Unknown, Verified 04/27/23 10:04) Unknown aspirin [Aspirin] Adverse Reaction (Intermediate, Verified 04/27/23 10:04) Vomiting trazodone [TRAZODONE] Adverse Reaction (Intermediate, Verified 04/27/23 10:04) NAUSEA & VOMITING HPI Ov- Left knee pain HPI Details Brenna is a 57 year old woman who presents to discuss surgery for her left knee OA. She was last seen and injected on 08/25/22, which she says gave only ~2 months of relief. She has a Hx of right TKA in ~[address] Salgado, which she tolerated well and is happy with. She is seen today with her FINANCIAL INSTITUTION MANAGER who participated in the discussion for her care. She does say the patient spent ~2 months in rehab following her right TKA She has pain with daily activity. She walks with a cane and would like to discuss treatment options today. She says she is currently taking Tramadol for her pain. She has a hx of Schizophrenia, developmental delays, and Tachycardia. [facility] Medical History Diabetes Morbid obesity due to excess calories Anxiety Chronic mental illness COPD (chronic obstructive pulmonary disease) Hyperlipidemia Schizophrenia Asthma Surgical History History of tubal ligation H/O right knee surgery History of appendectomy Family History Father Throat cancer Mother CVA (cerebral vascular accident) Brother Drug overdose Sister No problems noted. Sister No problems noted. Son No problems noted. Son No problems noted. 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: Friend(s) Household Members Other:: Lanny Soto, Inocencio Soto, - foster parents Housing: House Do you presently have visiting nurse or other home services: Yes (Meds administered by [facility]) Unable to assess alcohol history related to: Unknown Alcohol intake: never Patient Tobacco Use Status: Current everyday Tobacco user Tobacco use type: Cigarette Cigarettes Per Day: 10 e-Cigarette/Vaping Use: Never Used Second Hand Smoke Exposure: No Advance Directives Date on File: 12/13/22 service: No Current occupational status: disabled Sexual orientation: Don't Know Review of Systems Const All systems reviewed & are unremarkable except as noted in HPI and below Physical Exam Vital Signs: BMI result Body Mass Index 31.5 Const General: no acute distress, alert and awake Orientation/consciousness: patient oriented x3 HEENT Head: Yes normocephalic and Yes atraumatic Eyes EOM: EOMs intact bilaterally Resp Effort & Inspection: normal respiratory effort and able to speak in complete sentences Cardio Jugular venous distension: no JVD Skin General skin exam: turgor normal Rashes: no rashes Neuro General: patient oriented x3 Extrem Other: Left Knee: TTP medial compartment Right knee with 0-130 deg motion.Well healed incision. No effusion Psych Appearance: grossly normal Affect: normal affect Attitude: cooperative Office Procedures Joint Injection/Drain Joint Injection/Drain Details: Injected 1 mL of Decadron and 3 mL 1% lidocaine and 3 mL of 0.25% Marcaine. Site was prepped using aseptic technique. Patient tolerated the procedure well. Primary Site: left knee Approach Used: anterolateral Coding 66706 - Large joint Procedure code (CPT) selection complete Results Reviewed Results Reviewed: 04/27/23 10:58 BUPivacaine MPF 0.25 % [Sensorcaine-MPF 0.25% 10 ML] 10 ml .ROUTE .STK-MED ONE Lidocaine HCl 2 % MPF [Xylocaine 2 % MPF] 5 ml .ROUTE .STK-MED ONE 04/27/23 10:59 dexAMETHasone sod phosphate [Decadron] 4 mg .ROUTE .STK-MED ONE Assessment & Plan Assessment & Plan (1) Tricompartment osteoarthritis of left knee: Code(s): M17.12 - Unilateral primary osteoarthritis, left knee Plan: This is a 57 year old woman with moderately severe left knee OA. She has pain with daily activity, and ambulates with an assistive cane. She has a Hx of relief from steroid injections. I discussed her diagnosis and treatment options, including surgery. I am hesitant to recommend surgery given her comorbidities and the fact that she is unable to provide full care autonomously. I injected her left knee today, which she tolerated well. She can follow up prn. (2) Pre-diabetes: Code(s): R73.03 - Prediabetes (3) History of arthroplasty of right knee: Comment: ~[address] Salgado Code(s): Z96.651 - Presence of right artificial knee joint Plan: Performed several years ago by Dr. Salgado. (4) Tachycardia: Code(s): R00.0 - Tachycardia, unspecified (5) Schizophrenia: Code(s): F20.9 - Schizophrenia, unspecified Plan: Lives with FINANCIAL INSTITUTION MANAGER, has since ~2002. Plan Scribed for Dwain Valencia MD by Anthony Castaneda, medical educator, on 04/27/23 at 11:05 AM, EST. Coding Level of Care Code Est Pt Level 4 (18083) Diagnoses Tricompartment osteoarthritis of left knee M17.12 Pre-diabetes R73.03 History of arthroplasty of right knee Z96.651 Tachycardia R00.0 Schizophrenia F20.9 CPT Codes Coding - 30774 Large joint: 77621 - Large joint ([id number])
== END 2023-04-27 11:59 | disposition home or self-care (01) ==
PROVIDERS: Visit Provider Orthopaedic Surgery
DX: M17.12 Unilateral primary osteoarthritis, left knee (principal); Z96.651 Presence of right artificial knee joint
CPT/HCPCS: 20610; 99214

== ENCOUNTER → 2023-04-27 10:02 | Outpatient (BNVA) | payer MEDICAID, SELFPAY | PROVIDERS: Visit Provider Orthopaedic Surgery | DX: M17.12 Unilateral primary osteoarthritis, left knee (principal); R73.03 Prediabetes; R00.0 Tachycardia, unspecified; F20.9 Schizophrenia, unspecified; Z96.651 Presence of right artificial knee joint | CPT/HCPCS: 20610; 99212; J1100 ==

== ENCOUNTER 2023-05-03 15:37 | Outpatient (REF) | payer MEDICAID, SELFPAY ==
[2023-05-03 15:54] LABS: MANUAL DIFF FLAG NO
[2023-05-03 16:31] LABS: Basophils Percent Auto 0.3 % (0-2); Eosinophils Absolute Auto 0.1 X10*3/uL (0.0-0.4); Eosinophils Percent Auto 1.4 % (0-4); Hematocrit 36.5 % (37.0-47.0); Hemoglobin 11.5 g/dl (12.0-16.0); Imm Gran Abs Auto 0.03 X10*3/uL (0.00-0.03); Imm Gran Pct Auto 0.3 % (0.0-0.4); Lymphocytes Absolute Auto 3.9 X10*3/uL (1.2-4.9); Lymphocytes Percent Auto 43.6 % (20-40); Mean Corpuscular HGB Conc 31.5 g/dl (31.0-35.0); Mean Corpuscular Hemoglobin 28.1 pg (27.0-33.0); Mean Corpuscular Volume 89.2 fL (80.0-98.0); Mean Platelet Volume 11.2 fL (9.4-12.3); Monocytes Absolute Auto 0.8 X10*3/uL (0.1-1.2); Monocytes Percent Auto 8.5 % (2-11); Neutrophils Absolute Auto 4.1 x10*3/uL (2.0-8.3); Neutrophils Percent Auto 45.9 % (45-73); Platelet Count 308 X10*3/uL (160-400); Red Blood Count 4.09 X10*6/uL (4.20-5.50); Red Cell Distribution Width 15.5 % (11.0-16.0); White Blood Count 8.8 X10*3/uL (4.8-10.8)
== END 2023-05-03 15:38 | disposition home or self-care (01) ==
LOC: HO.LAB 15:37
PROVIDERS: Visit Provider Clinical Nurse Specialist Psychiatric/Mental Health, Adult
DX: Z79.899 Other long term (current) drug therapy (principal)
CPT/HCPCS: 36415; 85025; 85048

== ENCOUNTER → 2023-05-16 11:13 | Outpatient (REF) | payer MEDICAID, SELFPAY ==
--- NOTE | 2023-05-16 11:16 | HM_ITS ---
Conclusion: 1. Patient was monitored for total period of 1 day and 20 hours 2. Baseline was normal sinus rhythm with average heart of 106 beats per minute 3. Frequent sinus tachycardia noted with 68% of time heart rate greater than 100 beats per minute 4. No significant pauses noted 5. No significant arrhythmias noted 6. No patient reported events MTDD
--- NOTE | 2023-05-16 11:16 | CA_ITS ---
Transthoracic Echocardiogram Patient (Last, First, Middle): Brenna Hope D Gender: Female Date of : 1965 Age: 57 Procedure Date: 05/16/2023 Procedure Type: Transthoracic Echocardiogram Location: OP Height: 154.94 cm Weight: 80.74 kg BSA: 1.80 m2 Heart Rate: bpm BP: 116 / 70 mmHg Car Barn Laborer: GUSTABO Referring MD: Jairo Bailey MD Circuit Design Engineer: Gabriel Becker MD Symptoms: R00.0 - Tachycardia, unspecified Study Quality: Adequate ECG Rhythm: Sinus Conclusions: - 1. Low normal LV ejection fraction 50-55% with grade 1 diastolic dysfunction 2. Normal cardiac valvular Doppler 3. No gross pericardial effusion Findings Left Ventricle Normal left ventricular cavity size. There is mildly increased left ventricular wall thickness. The left ventricular systolic function is low normal. The visually estimated ejection fraction is between 50-55%. Spectral Doppler is indicative of an impaired relaxation filling pattern. E/E prime ratio is <8, consistent with normal filling pressures. Evidence suggests grade I (mild) diastolic dysfunction. Right Ventricle Normal right ventricular cavity size and systolic function. Atria The left atrium is likely dilated. Interatrial shunt cannot be excluded. The right atrium is normal in size. Aortic Valve Normal aortic valve structure and function. There is no aortic valve stenosis. There is no aortic valve regurgitation. Mitral Valve Normal mitral valve structure and function. There is trace mitral valve regurgitation. There is no mitral valve stenosis. Pulmonic Valve The pulmonic valve is likely normal. Tricuspid Valve Normal tricuspid valve structure. There is no tricuspid valve regurgitation. Tricuspid regurgitation envelope is inadequate for calculation of right ventricular systolic pressure. Normal right atrial pressure. Great Vessels All visible segments of the aorta are normal in size. The pulmonary artery was not well visualized. There is no dilatation of the ascending aorta. Venous The inferior vena cava is normal in size and collapses greater than 50% with inspiration. Pericardium/Pleural There is no evidence of pericardial effusion. Prior Study Comparison No prior study available for comparison. Measurements 2D Linear Measurements IVSd: 1.33 0.6-0.9/0.6-1.0 cm LVIDd: 4.24 3.9-5.3/4.2-5.9 cm LVIDd Index: 2.36 2.4-3.2/2.2-3.1 cm/m2 LVIDs: 2.65 2.0-3.6 cm LVPWd: 1.24 0.7-1.1 cm LA Diam: 2.80 2.7-3.8/3.0-4.0 cm LAIDs Index: 1.56 1.5-2.3 cm/m2 LV Mass: 249.18 67-162/88-224 g LV Mass Index: 138.43 43-95/49-115 g/m2 LVOT Diam: 2.10 3.0+(-)1.3 cm 2D Systolic Function EF 4C: 55.20 >55% EF 2C: 53.40 >55% EF BiP: 53.70 >55% Mitral Valve MV Pk E: 0.62 MV PK A: 0.67 MV Decel Time: 189.00 E/A: 0.90 E'Lateral: 7.51 E'Medial: 5.22 E/E' Med: 11.80 E/E' Lat: 8.20 PHT: 55.00 MVA PHT: 4.00 Decel Day: 3.25 Aortic Valve AoV Pk Terrance: 1.48 AoV Mn Terrance: 1.05 AoV VTI: 0.28 AoV Pk Grad: 9.00 Aov Mn Grad: 5.00 SAUL Cont.VTI: 2.06 LVOT LVOT Pk Terrance: 1.01 LVOT Mn Terrance: 0.58 LVOT VTI: 0.16 LVOT Pk Grad: 4.00 LVOT Mn Grad: 2.00 LVOT Diam: 2.10 LVOT Area: 3.46 Diastolic Function MV Pk E: 0.62 MV Pk A: 0.67 E/A: 0.90 E'Medial: 5.22 E/E' Med: 11.80 E' Laterial: 7.51 E/E' Lat: 8.20 Right Ventricle TAPSE (mm): 20.00 TVS' Terrance: 14.20 Tricuspid Valve RA Press: 3.00 Great Vessels Aorta Sinus of Valsalva: 3.29 2.0-3.[address] Ridge: 2.69 1.7-3.4 cm Ao Asc: 3.10 2.1-3.4 cm Updated in Other Vendor System with Status of Final Gabriel Becker MD electronically signed on 05/17/2023 11:12:43 AM with status of Final
== END ==
LOC: HO.CARD 11:13
PROVIDERS: Visit Provider Internal Medicine
DX: R00.0 Tachycardia, unspecified (principal); R00.2 Palpitations; R06.02 Shortness of breath
CPT/HCPCS: 93225; 93306

== ENCOUNTER → 2023-05-16 11:16 | Outpatient (BNV) | payer MEDICAID, SELFPAY | PROVIDERS: Visit Provider Internal Medicine Cardiovascular Disease | DX: R00.0 Tachycardia, unspecified (principal) | CPT/HCPCS: 93227; 93306 ==

== ENCOUNTER 2023-05-30 12:57 | Outpatient (REF) | payer MEDICAID, SELFPAY ==
[2023-05-30 13:11] LABS: MANUAL DIFF FLAG NO
[2023-05-30 13:46] LABS: Basophils Percent Auto 0.4 % (0-2); Eosinophils Absolute Auto 0.1 X10*3/uL (0.0-0.4); Eosinophils Percent Auto 0.9 % (0-4); Hematocrit 38.2 % (37.0-47.0); Imm Gran Abs Auto 0.07 X10*3/uL (0.00-0.03); Imm Gran Pct Auto 0.8 % (0.0-0.4); Lymphocytes Absolute Auto 2.9 X10*3/uL (1.2-4.9); Lymphocytes Percent Auto 31.8 % (20-40); Mean Corpuscular HGB Conc 31.4 g/dl (31.0-35.0); Mean Corpuscular Hemoglobin 28.3 pg (27.0-33.0); Mean Corpuscular Volume 90.1 fL (80.0-98.0); Mean Platelet Volume 12.1 fL (9.4-12.3); Monocytes Absolute Auto 0.8 X10*3/uL (0.1-1.2); Monocytes Percent Auto 8.3 % (2-11); Neutrophils Absolute Auto 5.2 x10*3/uL (2.0-8.3); Neutrophils Percent Auto 57.8 % (45-73); Platelet Count 317 X10*3/uL (160-400); Red Blood Count 4.24 X10*6/uL (4.20-5.50); Red Cell Distribution Width 15.6 % (11.0-16.0)
== END 2023-05-30 12:58 | disposition home or self-care (01) ==
LOC: HO.LABR 12:57
PROVIDERS: Visit Provider Clinical Nurse Specialist Psychiatric/Mental Health, Adult
DX: Z79.899 Other long term (current) drug therapy (principal)
CPT/HCPCS: 36415; 85025

== ENCOUNTER 2023-06-06 10:42 | Outpatient (REF) | payer MEDICAID, SELFPAY ==
[2023-06-06 12:07] LABS: Valproate 67.3 mcg/mL (50.0-100.0)
[2023-06-06 12:10] LABS: Alanine Aminotransferase 11 U/L (0-31); Albumin Level 4.2 g/dL (3.5-5.0); Alkaline Phosphatase 75 U/L (39-117); Aspartate Amino Transferase 12 U/L (5-31); Bilirubin Direct 0.1 mg/dL (0.0-0.5); Bilirubin Total 0.3 mg/dL (0.0-1.0); Total Protein 7.4 g/dL (6.5-8.0)
== END 2023-06-06 10:43 | disposition home or self-care (01) ==
LOC: HO.LAB 10:42
PROVIDERS: Visit Provider Clinical Nurse Specialist Psychiatric/Mental Health, Adult
DX: Z79.899 Other long term (current) drug therapy (principal)
CPT/HCPCS: 36415; 80076; 80164

== ENCOUNTER 2023-06-18 17:13 | Inpatient (IN) | payer OTHER, MEDICAID, SELFPAY ==
[2023-06-18 17:22] VITALS: BP 118/52; PULSE 105; RESP 20; TEMP 36.2; O2SAT 95; BMI 34.6
--- NOTE | 2023-06-18 17:26 | ED.PSYCH ---
HPI - Psych General Chief Complaint: Psychiatric Symptoms Stated Complaint: Crisis Time Seen by Provider: 06/18/23 17:52 Source: patient Mode of arrival: ambulatory Limitations: no limitations History of Present Illness HPI Narrative: Patient with history of schizophrenia hearing voices for last 3 days attending her to cut wrist hallucinating seeing snakes on the floor taking her medication as prescribed Related Data Home Medications Medication Instructions Recorded Confirmed metformin 500 mg tablet,extended 500 mg PO BID 12/13/22 06/18/23 release 24 hr sennosides 8.6 mg tablet (senna) 17.2 mg PO BEDTIME PRN constipation 12/13/22 06/18/23 albuterol sulfate 2.5 mg/3 mL 2.5 mg inhalation Q4H PRN wheezing 06/18/23 06/18/23 (0.083 %) solution for nebulization albuterol sulfate 90 mcg/actuation 2 puff inhalation Q4-6H PRN 06/18/23 06/18/23 aerosol inhaler (Ventolin HFA) Shortness Of Breath Or Wheezing clonazepam 0.5 mg tablet 0.5 mg PO QAM 06/18/23 06/18/23 clonazepam 1 mg tablet 1 mg PO BEDTIME 06/18/23 06/18/23 clozapine 100 mg tablet 300 mg PO BEDTIME 06/18/23 06/18/23 clozapine 50 mg tablet 50 mg PO QAM 06/18/23 06/18/23 diltiazem HCl 120 mg 120 mg PO DAILY 06/18/23 06/18/23 capsule,extended release 24 hr divalproex 500 mg tablet,extended 1,500 mg PO BEDTIME 06/18/23 06/18/23 release 24 hr docusate sodium 100 mg capsule 100 mg PO BID PRN Constipation 06/18/23 06/18/23 fluoxetine 20 mg capsule 20 mg PO QAM 06/18/23 06/18/23 fluticasone propionate 110 2 puff inhalation BID 06/18/23 06/18/23 mcg/actuation HFA aerosol inhaler (Flovent HFA) lisinopril 10 mg tablet 10 mg PO QPM 06/18/23 06/18/23 loratadine 10 mg tablet 10 mg PO DAILY 06/18/23 06/18/23 montelukast 10 mg tablet 10 mg PO DAILY 06/18/23 06/18/23 omeprazole 20 mg capsule,delayed 20 mg PO BID 06/18/23 06/18/23 release sucralfate 1 gram tablet 1 g PO TID 06/18/23 06/18/23 tramadol 50 mg tablet 50 mg PO TID PRN Pain, Moderate 06/18/23 06/18/23 Previous Rx's Medication Instructions Recorded magnesium hydroxide 400 mg/5 mL 400 mg (5 mL) PO BEDTIME PRN 12/15/22 oral suspension (Milk of Magnesia) constipation #355 mL polyethylene glycol 3350 17 17 g PO DAILY constipation #510 12/15/22 gram/dose oral powder (Miralax) grams Allergies Allergy/AdvReac Type Severity Reaction Status Date / Time diazepam [From Valium] Allergy Unknown Unknown Verified 04/27/23 10:04 haloperidol [From Haldol] Allergy Unknown Unknown Verified 04/27/23 10:04 Penicillins Allergy Unknown Unknown Verified 04/27/23 10:04 risperidone [From Risperdal] Allergy Unknown Unknown Verified 04/27/23 10:04 aspirin [Aspirin] AdvReac Intermediate Vomiting Verified 04/27/23 10:04 trazodone [TRAZODONE] AdvReac Intermediate NAUSEA & Verified 04/27/23 10:04 VOMITING Review of Systems Review of Systems: Yes all other systems are reviewed and are negative [facility] Past Medical History Medical History Diabetes Morbid obesity due to excess calories Anxiety Chronic mental illness COPD (chronic obstructive pulmonary disease) Hyperlipidemia Schizophrenia Asthma Surgical History History of tubal ligation H/O right knee surgery History of appendectomy Family History Family History Father Throat cancer Mother CVA (cerebral vascular accident) Brother Drug overdose Sister No problems noted. Sister No problems noted. Son No problems noted. Son No problems noted. Social History 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: Friend(s) Household Members Other:: Lanny Charles, Inocencio Charles, - foster parents Housing: House Do you presently have visiting nurse or other home services: Yes (Meds administered by [facility]) Unable to assess alcohol history related to: Unknown Alcohol intake: never Patient Tobacco Use Status: Current everyday Tobacco user Tobacco use type: Cigarette Cigarettes Per Day: 10 e-Cigarette/Vaping Use: Never Used Second Hand Smoke Exposure: No Advance Directives: Yes Advance Directives on File: Yes Advance Directives Date on File: 12/13/22 Healthcare Proxy: Yes Guardian: No service: No Current occupational status: disabled Sexual orientation: Don't Know Physical Exam Vital Signs: Vital Signs: Last Vital Signs Temp 97.1 F 06/18/23 17:22 Pulse 99 06/19/23 09:09 Resp 16 06/19/23 09:09 BP 114/66 06/19/23 09:09 Pulse Ox 93 06/19/23 09:09 O2 Del Method Room Air 06/19/23 09:09 BMI result Body Mass Index 34.6 Appearance: Alert. Oriented X3. No acute distress. Eyes: PERRLA, No Nystagmus ENT: Pharynx normal. Oral Mucosa moist Neck: Normal inspection. Neck supple. CVS: Normal heart rate and rhythm. Pulses normal. Respiratory: No respiratory distress. Equal air entry bilateral, no wheezing/rales/rhonchi Abdomen: Soft and nontender. Bowel sounds are present, no mass palpable, no CVA tenderness Skin: Skin warm and dry. Normal skin color. Normal skin turgor. Extremities: No lower extremity edema. No calf tenderness psych: Relaxed at this time mood stable denies any current hallucinations or SI Neuro: Oriented X 3. No motor deficit. No sensory deficit.No cerebellar signs , cranial nerves II-XII intact Course Course Course Narrative: This is an RME: Additional HPI, ROS, PE not included below will be deferred to primary provider. This is a 57-year-old female, with a history of diabetes, hypertension, chronic obstructive airway disease, schizophrenia presenting to the emergency department as she has been hearing voices for the last 3 days. States that the voices are telling her to cut her wrist. She states that she is seeing snakes on the floor. She has been taking her medications. Plan: Reevaluation(s) Reevaluation #1: no events overnight reported by the nurse, APRIL, has been evaluated by care team for respite bed search is underway, continue with physician observation. Time: 15:22 Medications Administered Generic Name Dose Route Start Last Admin Trade Name Maday PRN Reason Stop Dose Admin Clonazepam 0.5 mg 06/19/23 09:00 06/19/23 09:19 Clonazepam 0.5 Mg Tablet PO 0.5 mg DAILY LAXMI Administration Clonazepam 1 mg 06/18/23 21:00 06/18/23 21:23 Clonazepam 1 Mg Tablet PO 1 mg BEDTIME LAXMI Administration Clozapine 50 mg 06/19/23 09:00 06/19/23 09:19 Clozapine 25 Mg Tablet PO 50 mg DAILY LAXMI Administration Clozapine 300 mg 06/18/23 21:00 06/18/23 21:24 Clozapine 100 Mg Tablet PO 300 mg BEDTIME LAXMI Administration Diltiazem HCl 120 mg 06/19/23 09:00 06/19/23 09:19 Diltiazem Hcl Cd 120 Mg Cap.Er.Deg PO 120 mg DAILY LAXMI Administration Protocol Divalproex Sodium 1,500 mg 06/18/23 21:00 06/18/23 21:23 Divalproex Sodium Er 500 Mg Tab.Er.24h PO 1,500 mg BEDTIME LAXMI Administration Fluoxetine HCl 20 mg 06/19/23 09:00 06/19/23 09:19 Fluoxetine Hcl 20 Mg Capsule PO 20 mg DAILY LAXMI Administration Lisinopril 10 mg 06/18/23 21:00 06/18/23 21:32 Lisinopril 10 Mg Tablet PO 10 mg BEDTIME LAXMI Administration Protocol Loratadine 10 mg 06/19/23 09:00 06/19/23 09:18 Loratadine 10 Mg Tablet PO 10 mg DAILY LAXMI Administration Metformin HCl 500 mg 06/18/23 21:00 06/19/23 09:19 Metformin Hcl Er 500 Mg Tab.Er.24h PO 500 mg BID LAXMI Administration Montelukast Sodium 10 mg 06/19/23 09:00 06/19/23 09:19 Montelukast Sodium 10 Mg Tablet PO 10 mg DAILY LAXMI Administration Omeprazole 20 mg 06/19/23 06:30 06/19/23 05:12 Omeprazole 20 Mg Capsule.Dr PO 20 mg BID@0630,1630 LAXMI Administration Polyethylene Glycol 17 gm 06/19/23 09:00 06/19/23 09:18 Polyethylene Glycol 3350 17 Gm Powd.Pack PO 17 gm DAILY LAXMI Administration Sucralfate 1 gm 06/18/23 21:00 06/19/23 14:06 Sucralfate 1 Gm Tablet PO 1 gm TID LAXMI Administration Tramadol HCl 50 mg 06/18/23 20:12 06/18/23 21:23 Tramadol Hcl 50 Mg Tablet PO 50 mg TID PRN Administration Pain, Moderate Medical Decision Making Medical Decision Making MDM Narrative: Patient with schizoaffective disorder with hallucinations with SI ideation will get care team involved for evaluation Lab Data MDM Lab Attestation statement: I reviewed the patient's lab results. 06/18/23 19:58 06/18/23 20:11 Labs: Lab Results 06/18/23 06/18/23 06/18/23 Range/Units 19:24 19:58 20:11 WBC 8.5 (4.8-10.8) X10*3/uL RBC 4.07 L (4.20-5.50) X10*6/uL Hgb 11.4 L (12.0-16.0) g/dl Hct 36.1 L (37.0-47.0) % MCV 88.7 (80.0-98.0) fL MCH 28.0 (27.0-33.0) pg MCHC 31.6 (31.0-35.0) g/dl RDW 15.1 (11.0-16.0) % Plt Count 214 D (160-400) X10*3/uL MPV 11.6 (9.4-12.3) fL Immature Gran % (Auto) 0.4 (0.0-0.4) % Neut % (Auto) 60.2 (45-73) % Lymph % (Auto) 27.1 (20-40) % [place] % (Auto) 10.7 (2-11) % Eos % (Auto) 1.4 (0-4) % Baso % (Auto) 0.2 (0-2) % Lymph # (Auto) 2.3 (1.2-4.9) X10*3/uL [place] # (Auto) 0.9 (0.1-1.2) X10*3/uL Eos # (Auto) 0.1 (0.0-0.4) X10*3/uL Baso # (Auto) 0.0 (0.0-0.2) X10*3/uL Abs Immat Gran (auto) 0.03 (0.00-0.03) X10*3/uL Absolute Neuts (auto) 5.1 (2.0-8.3) x10*3/uL Absolute Nucleated RBC 0.000 (0.0-0.012) X10*3/uL Nucleated RBC % (auto) 0.0 (0.0-0.2) /100WBC Smear Tech's Comments VERIFIED Sodium 142 (135-145) mmol/L Potassium 4.1 (3.3-5.1) mmol/L Chloride 101 (96-108) mmol/L Carbon Dioxide 25 (22-29) mmol/L Anion Gap 20 (12-20) BUN 12 (9-16) mg/dL Creatinine 0.65 (0.5-1.4) mg/dL Estim Creat Clear Calc 97.0 Estimated GFR > 60 Random Glucose 107 (60-115) mg/dL Calcium 10.0 D (8.4-10.2) mg/dL Total Bilirubin 0.3 (0.0-1.0) mg/dL AST 13 (5-31) U/L ALT 14 (0-31) U/L Alkaline Phosphatase 81 (39-117) U/L Total Protein 8.0 (6.5-8.0) g/dL Albumin 4.6 (3.5-5.0) g/dL Urine Color Dark Yellow Urine Appearance Clear Urine pH 6.5 (5.0-9.0) Ur Specific [place] 1.025 (1.005-1.025) Urine Protein Negative (Neg-Trace) mg/dL Urine Glucose (UA) Negative (Negative) mg/dL Urine Ketones Trace (Negative) mg/dL Urine Blood Negative (Negative) Urine Nitrite Negative (Negative) Ur Leukocyte Esterase Trace H (Negative) Urine RBC 3-5 H (0-2) /HPF Urine WBC 0-5 (0-5) /HPF Ur Squamous Epith Cells 3-5 (0-2) /HPF Urine Bacteria None Seen (None Seen) Hyaline Casts 0-2 (0-2) /LPF Urine Opiates Screen Not Detected (Not Detect) Urine Fentanyl Screen Not Detected (Not Detect) Ur Barbiturates Screen Not Detected (Not Detect) Valproic Acid 53.3 (50.0-100.0) mcg/mL Ur Phencyclidine Scrn Not Detected (Not Detect) Ur Amphetamines Screen Not Detected (Not Detect) U Benzodiazepines Scrn Not Detected (Not Detect) Urine Cocaine Screen Not Detected (Not Detect) U Marijuana (THC) Screen Not Detected (Not Detect) Ethyl Alcohol < 10 mg/dL Discharge Plan Discharge Clinical Impression: Schizophrenia, Suicidal ideation Patient Disposition: Still a Patient Prescriptions: No Action lisinopril 10 mg tablet 10 mg PO QPM omeprazole 20 mg capsule,delayed release(DR/EC) 20 mg PO BID albuterol sulfate [Ventolin HFA] 90 mcg/actuation HFA aerosol inhaler 2 puff INHALATION Q4-6H PRN (Reason: Shortness Of Breath Or Wheezing) clozapine 50 mg tablet 50 mg PO QAM clozapine 100 mg tablet 300 mg PO BEDTIME sucralfate 1 gram tablet 1 g PO TID clonazepam 0.5 mg tablet 0.5 mg PO QAM clonazepam 1 mg tablet 1 mg PO BEDTIME tramadol 50 mg tablet 50 mg PO TID PRN (Reason: Pain, Moderate) divalproex 500 mg tablet extended release 24 hr 1,500 mg PO BEDTIME docusate sodium 100 mg capsule 100 mg PO BID PRN (Reason: Constipation) diltiazem HCl 120 mg capsule,extended release 24hr 120 mg PO DAILY montelukast 10 mg tablet 10 mg PO DAILY fluoxetine 20 mg capsule 20 mg PO QAM loratadine 10 mg tablet 10 mg PO DAILY albuterol sulfate 2.5 mg /3 mL (0.083 %) solution for nebulization 2.5 mg inhalation Q4H PRN (Reason: wheezing) fluticasone propionate [Flovent HFA] 110 mcg/actuation HFA aerosol inhaler 2 puff INHALATION BID sennosides [senna] 8.6 mg tablet 17.2 mg PO BEDTIME PRN (Reason: constipation) metformin 500 mg tablet extended release 24 hr 500 mg PO BID polyethylene glycol 3350 [Miralax] 17 gram/dose powder 17 g PO DAILY Qty: 510 0RF magnesium hydroxide [Milk of Magnesia] 400 mg/5 mL suspension 400 mg PO BEDTIME PRN (Reason: constipation) Qty: 355 0RF Interventions: [place]-Suicide Risk Severity Scale Last Done: 06/19/23 05:29
[2023-06-18 19:51] LABS: Appearance Urine Clear; Color Urine Dark Yellow; Glucose Urine UA Negative (Negative); Leukocyte Esterase Urine Trace (Negative); Nitrite Urine Negative (Negative); PH 6.5 (5.0-9.0); Specific Gravity - Urine 1.025 (1.005-1.025); UMIC TRIGGER UA YES; Urine Blood Negative (Negative); Urine Ketones Trace mg/dL (Negative); Urine Protein Negative (Neg-Trace)
[2023-06-18 19:53] LABS: Bacteria Urine None Seen (None Seen); Hyaline Casts Urine 0-2 /LPF (0-2); WBC Urine 0-5 /HPF (0-5)
[2023-06-18 19:57] LABS: Amphetamine Screen Urine Not Detected (Not Detect); Barbiturates, Urine Not Detected (Not Detect); Benzodiazepines Screen Urine Not Detected (Not Detect); Cannabinoid Screen Urine Not Detected (Not Detect); Cocaine Screen Urine Not Detected (Not Detect); Fentanyl, urine Not Detected (Not Detect); Opiate Screen Urine Not Detected (Not Detect); Phencyclidine Screen Urine Not Detected (Not Detect)
[2023-06-18 20:07] LABS: PLT CLUMP 1; SCAN SMEAR FLAG 1
[2023-06-18 20:09] LABS: Basophils Percent Auto 0.2 % (0-2); Eosinophils Absolute Auto 0.1 X10*3/uL (0.0-0.4); Eosinophils Percent Auto 1.4 % (0-4); Hematocrit 36.1 % (37.0-47.0); Hemoglobin 11.4 g/dl (12.0-16.0); Imm Gran Abs Auto 0.03 X10*3/uL (0.00-0.03); Imm Gran Pct Auto 0.4 % (0.0-0.4); Lymphocytes Absolute Auto 2.3 X10*3/uL (1.2-4.9); Lymphocytes Percent Auto 27.1 % (20-40); MANUAL DIFF FLAG SCAN; Mean Corpuscular HGB Conc 31.6 g/dl (31.0-35.0); Mean Corpuscular Volume 88.7 fL (80.0-98.0); Mean Platelet Volume 11.6 fL (9.4-12.3); Monocytes Absolute Auto 0.9 X10*3/uL (0.1-1.2); Monocytes Percent Auto 10.7 % (2-11); Neutrophils Absolute Auto 5.1 x10*3/uL (2.0-8.3); Neutrophils Percent Auto 60.2 % (45-73); Red Blood Count 4.07 X10*6/uL (4.20-5.50); Red Cell Distribution Width 15.1 % (11.0-16.0)
[2023-06-18 20:16] LABS: Valproate 53.3 mcg/mL (50.0-100.0)
[2023-06-18 20:17] LABS: Ethanol < 10 mg/dL
[2023-06-18 20:26] LABS: Platelet Count 214 X10*3/uL (160-400); White Blood Count 8.5 X10*3/uL (4.8-10.8)
[2023-06-18 20:27] LABS: SLIDE REVIEW VERIFIED
[2023-06-18 20:32] LABS: Alanine Aminotransferase 14 U/L (0-31); Albumin Level 4.6 g/dL (3.5-5.0); Alkaline Phosphatase 81 U/L (39-117); Anion Gap 20 (12-20); Aspartate Amino Transferase 13 U/L (5-31); Bilirubin Total 0.3 mg/dL (0.0-1.0); Blood Urea Nitrogen 12 mg/dL (9-16); Carbon Dioxide 25 mmol/L (22-29); Chloride 101 mmol/L (96-108); Estimated Glomerular Filt Rate > 60; Glucose Random 107 mg/dL (60-115); Potassium 4.1 mmol/L (3.3-5.1); Sodium 142 mmol/L (135-145)
--- NOTE | 2023-06-18 20:48 | PHA.MEDREC ---
Pharmacy Consult ? Medication Reconciliation Pharmacy has reviewed the medication reconciliation completed by Dario.
[2023-06-18] MEDS: clonazePAM 1 MG TABLET PO (21:23)
[2023-06-18] MEDS: Sucralfate 1 GM TABLET PO (21:23)
[2023-06-18] MEDS: traMADoL HCL 50 MG TABLET PO (21:23)
[2023-06-18] MEDS: Divalproex Sodium ER 500 MG TAB.ER.24H 1500 MG PO (21:23)
[2023-06-18] MEDS: cloZAPine 100 MG TABLET 300 MG PO (21:24)
[2023-06-18] MEDS: metFORMIN HCl ER 500 MG TAB.ER.24H PO (21:24)
[2023-06-18 21:26] VITALS: BP 118/68; PULSE 100; RESP 20; O2SAT 96
[2023-06-18] MEDS: lisinopriL 10 MG TABLET PO (21:32)
[2023-06-19] MEDS: Omeprazole 20 MG CAPSULE.DR PO ×2 (05:12→17:24)
[2023-06-19 05:19] VITALS: BP 119/74; PULSE 94; RESP 17; O2SAT 92
--- NOTE | 2023-06-19 05:32 | PC.NURSE ---
Patient slept through the night, no distress observed/reported, behavior non concerning, compliant with her medication, behavior non concerning, care consult ordered for hearing voices, pending evaluation, VSS, labs completed/resulted, will continue to monitor.
--- NOTE | 2023-06-19 07:21 | PC.NURSE ---
Resumed care of patient this morning, she is currently ambulating around unit with walker, sitting in living room to eat breakfast. All needs met at this time, q15 minute checks maintained. Pending care team sahil
[2023-06-19 09:09] VITALS: BP 114/66; PULSE 99; RESP 16; O2SAT 93
[2023-06-19] MEDS: polyethylene glycoL 3350 17 GM POWD.PACK PO (09:18)
[2023-06-19] MEDS: Loratadine 10 MG TABLET PO (09:18)
[2023-06-19] MEDS: FLUoxetine HCl 20 MG CAPSULE PO (09:19)
[2023-06-19] MEDS: clonazePAM 0.5 MG TABLET PO (09:19)
[2023-06-19] MEDS: Sucralfate 1 GM TABLET PO ×3 (09:19→20:47)
[2023-06-19] MEDS: Montelukast Sodium 10 MG TABLET PO (09:19)
[2023-06-19] MEDS: metFORMIN HCl ER 500 MG TAB.ER.24H PO ×2 (09:19→20:43)
[2023-06-19] MEDS: dilTIAZem HCL CD 120 MG CAP.ER.DEG PO (09:19)
[2023-06-19] MEDS: cloZAPine 25 MG TABLET 50 MG PO (09:19)
[2023-06-19 17:13] VITALS: BP 147/83; PULSE 89; RESP 20; TEMP 36.1; O2SAT 96
[2023-06-19 18:34] LABS: Glucose, Whole Blood 75 mg/dL (60-115)
[2023-06-19] MEDS: clonazePAM 1 MG TABLET PO (20:43)
[2023-06-19] MEDS: traMADoL HCL 50 MG TABLET PO (20:43)
[2023-06-19] MEDS: lisinopriL 10 MG TABLET PO (20:43)
[2023-06-19 20:46] VITALS: BP 147/80; PULSE 98; RESP 18; TEMP 36.1; O2SAT 98
[2023-06-19] MEDS: Divalproex Sodium ER 500 MG TAB.ER.24H 1500 MG PO (20:47)
--- NOTE | 2023-06-19 21:48 | MHC.CARE ---
The [facility] called to facilitate an intake tonight but Pt did not have a sufficient supply of meds and new scripts could not be ordered ,as some of the meds are controlled substances. The CARE team will pick things up in the morning.
[2023-06-19] MEDS: cloZAPine 100 MG TABLET 300 MG PO (22:41)
[2023-06-19 23:24] VITALS: BP 120/57; PULSE 83; RESP 16; TEMP 36.3; O2SAT 94
[2023-06-20] MEDS: Omeprazole 20 MG CAPSULE.DR PO ×2 (05:49→16:03)
--- NOTE | 2023-06-20 06:02 | PC.NURSE ---
Patient slept through the night, no distress observed/reported, disposition per care team is respite bed search, behavior non concerning, medication compliant, labs completed/resulted, VSS, will continue to monitor.
[2023-06-20 08:30] VITALS: BP 106/61; PULSE 98; RESP 16; TEMP 36.9; O2SAT 94
[2023-06-20] MEDS: dilTIAZem HCL CD 120 MG CAP.ER.DEG PO (08:40)
[2023-06-20] MEDS: cloZAPine 25 MG TABLET 50 MG PO (08:40)
[2023-06-20] MEDS: Loratadine 10 MG TABLET PO (08:40)
[2023-06-20] MEDS: polyethylene glycoL 3350 17 GM POWD.PACK PO (08:40)
[2023-06-20] MEDS: Sucralfate 1 GM TABLET PO ×3 (08:40→20:59)
[2023-06-20] MEDS: FLUoxetine HCl 20 MG CAPSULE PO (08:40)
[2023-06-20] MEDS: metFORMIN HCl ER 500 MG TAB.ER.24H PO ×2 (08:40→20:59)
[2023-06-20] MEDS: clonazePAM 0.5 MG TABLET PO (08:40)
[2023-06-20] MEDS: Montelukast Sodium 10 MG TABLET PO (08:40)
--- NOTE | 2023-06-20 09:26 | PC.NURSE ---
medicated as ordered, states she has been having hallucinations and wants to stay in the hospital for a couple ddays and then to go to respite, she doesn't feel ready for respite at this time, this was reported to the CARE team
--- NOTE | 2023-06-20 09:40 | ECG_ITS ---
Test Reason : check prolong QT Blood Pressure : / mmHG Vent. Rate : 098 BPM Atrial Rate : 098 BPM P-R Int : 128 ms QRS Dur : 080 ms QT Int : 368 ms P-R-T Axes : 066 056 060 degrees QTc Int : 469 ms Normal sinus rhythm Nonspecific ST and T wave abnormality Abnormal ECG When compared with ECG of 12-NOV-2022 20:45, T wave amplitude has decreased in Anterolateral leads Referred By: Reed Ta Electronically Signed By:MANNY GOMES MD
[2023-06-20 10:44] LABS: COVID-19 Test Negative (Negative); IDNOW Serial# BCCEAD1C
[2023-06-20 16:29] VITALS: BP 153/74; PULSE 97; TEMP 36.1
[2023-06-20 20:57] VITALS: BP 119/62; PULSE 99; TEMP 36.1
[2023-06-20] MEDS: lisinopriL 10 MG TABLET PO (20:58)
[2023-06-20] MEDS: Divalproex Sodium ER 500 MG TAB.ER.24H 1500 MG PO (20:58)
[2023-06-20] MEDS: clonazePAM 1 MG TABLET PO (20:59)
[2023-06-20] MEDS: cloZAPine 100 MG TABLET 300 MG PO (20:59)
[2023-06-20] MEDS: traMADoL HCL 50 MG TABLET PO (21:06)
--- NOTE | 2023-06-20 23:25 | PC.ADMIT ---
Brenna was admitted to M[facility] [place] [facility] [place] CV for treatment of Schizophrenia.? she self-presented with family reporting she has been having auditory hallucinations telling her to cut her wrists for the past three days. She also reports visual hallucinations of ? seeing snakes? on the floor and blood on the casas.? Patient has a history of unresolved grief, trauma and a history of chronic mental illness. Patient tends to de- compensate around holidays due to her trauma history of lack of contact with her biological family. Patient has a reported history of struggling with alcohol, cocaine and cannabis use in the distant past. She denies any current use. UTOX negative. Pt reports feeling confused. Pt is depressed and anxious with congruent affect. Pt reports auditory hallucinations telling her to ?kill myself.? Pt reports auditory hallucinations make it hard for her to read or focus. Pt reports no plan to act on AH and can come to staff if feelings arise. Pt reports poor sleep and poor appetite. Pt utilizes a cane to ambulate. Provider is aware of admission, orders are placed. Pt is placed on 15 minute safety checks. Pt is safe on the unit. Monitor for safety and begin treatment plan.?
[2023-06-21] MEDS: Omeprazole 20 MG CAPSULE.DR PO ×2 (06:30→17:38)
[2023-06-21 08:39] LABS: Estimated Average Glucose 117 mg/dL; Hemoglobin A1c % 5.7 % (<6.0)
[2023-06-21 08:40] VITALS: BP 112/68; PULSE 102; RESP 16; TEMP 35.8; O2SAT 93
[2023-06-21] MEDS: Sucralfate 1 GM TABLET PO ×3 (08:44→22:13)
[2023-06-21] MEDS: metFORMIN HCl ER 500 MG TAB.ER.24H PO ×2 (08:44→22:14)
[2023-06-21] MEDS: Loratadine 10 MG TABLET PO (08:44)
[2023-06-21] MEDS: Montelukast Sodium 10 MG TABLET PO (08:44)
[2023-06-21] MEDS: clonazePAM 0.5 MG TABLET PO (08:44)
[2023-06-21] MEDS: dilTIAZem HCL CD 120 MG CAP.ER.DEG PO (08:44)
[2023-06-21] MEDS: FLUoxetine HCl 20 MG CAPSULE PO (08:44)
[2023-06-21] MEDS: cloZAPine 25 MG TABLET 50 MG PO (08:44)
[2023-06-21] MEDS: polyethylene glycoL 3350 17 GM POWD.PACK PO (08:51)
[2023-06-21 08:53] LABS: Alanine Aminotransferase 14 U/L (0-31); Alkaline Phosphatase 72 U/L (39-117); Anion Gap 17 (12-20); Aspartate Amino Transferase 13 U/L (5-31); Bilirubin Total 0.2 mg/dL (0.0-1.0); Blood Urea Nitrogen 13 mg/dL (9-16); Calcium 9.7 mg/dL (8.4-10.2); Carbon Dioxide 26 mmol/L (22-29); Chloride 101 mmol/L (96-108); Cholesterol 200 mg/dL (<200); Creatinine Clr Calc Pharmacy 106.8; Estimated Glomerular Filt Rate > 60; Glucose Fasting 115 mg/dL (60-99); HDL Cholesterol 45 mg/dL (>40); LDL Cholesterol Calculated 133 mg/dL (<100); Potassium 4.6 mmol/L (3.3-5.1); Sodium 139 mmol/L (135-145); Total Protein 7.2 g/dL (6.5-8.0); Triglycerides 113 mg/dL (<150)
[2023-06-21 09:08] LABS: Free T4 (Free Thyroxine) 0.78 ng/dL (0.71-1.85); Thyroid Stimulating Hormone 3.27 uIU/mL (0.32-4.0)
[2023-06-21 09:22] LABS: Folate 10.9 ng/mL (> or = 4.0); Vitamin B12 377 pg/mL (200-900)
[2023-06-21] MEDS: Nicotine 21 MG PATCH.TD24 TRANSDERMA (11:33)
[2023-06-21 12:09] LABS: Glucose, Whole Blood 102 mg/dL (60-115)
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
[2023-06-21 17:22] LABS: Glucose, Whole Blood 101 mg/dL (60-115)
[2023-06-21 22:00] LABS: Glucose, Whole Blood 205 mg/dL (60-115)
[2023-06-21 22:05] VITALS: BP 137/78; PULSE 111; TEMP 36.2
[2023-06-21] MEDS: Fluticasone Propionate 100 MCG BLST.W.DEV 2 PUFF INHALE (22:12)
[2023-06-21] MEDS: lisinopriL 10 MG TABLET PO (22:14)
[2023-06-21] MEDS: cloZAPine 100 MG TABLET 300 MG PO (22:14)
[2023-06-21] MEDS: clonazePAM 1 MG TABLET PO (22:15)
[2023-06-21] MEDS: Divalproex Sodium ER 500 MG TAB.ER.24H 1500 MG PO (22:15)
[2023-06-21] MEDS: traMADoL HCL 50 MG TABLET PO (22:28)
[2023-06-22] MEDS: Omeprazole 20 MG CAPSULE.DR PO ×2 (05:52→17:13)
[2023-06-22 08:26] LABS: Glucose, Whole Blood 92 mg/dL (60-115)
[2023-06-22 08:30] VITALS: BP 107/62; PULSE 84; RESP 16; TEMP 36.1; O2SAT 94
[2023-06-22] MEDS: Montelukast Sodium 10 MG TABLET PO (08:30)
[2023-06-22] MEDS: Sucralfate 1 GM TABLET PO ×3 (08:30→21:18)
[2023-06-22] MEDS: FLUoxetine HCl 20 MG CAPSULE PO (08:30)
[2023-06-22] MEDS: cloZAPine 25 MG TABLET 50 MG PO (08:30)
[2023-06-22] MEDS: Loratadine 10 MG TABLET PO (08:30)
[2023-06-22] MEDS: dilTIAZem HCL CD 120 MG CAP.ER.DEG PO (08:30)
[2023-06-22] MEDS: metFORMIN HCl ER 500 MG TAB.ER.24H PO ×2 (08:30→21:18)
[2023-06-22] MEDS: clonazePAM 0.5 MG TABLET PO (08:30)
[2023-06-22] MEDS: Fluticasone Propionate 100 MCG BLST.W.DEV 2 PUFF INHALE ×2 (08:34→21:18)
[2023-06-22] MEDS: polyethylene glycoL 3350 17 GM POWD.PACK PO ×3 (08:35→21:37)
[2023-06-22 12:22] LABS: Glucose, Whole Blood 99 mg/dL (60-115)
[2023-06-22] MEDS: bisacodyL 5 MG TABLET.DR 10 MG PO (12:40)
--- NOTE | 2023-06-22 13:02 | P.PNPSI_ITS ---
Subjective Subjective Date of Service: 06/22/23 Reason For Visit: ptsd, schizophrenia Subjective Notes: Conditional Voluntary Healthcare Proxy: No Guardianship: No Medical Problems Affecting Mental Status: No Interim History: Pt feeling more able to meet and discuss her needs today. 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 Reports depression, increase in voices, CAH to self- harm, VH of snakes, blood. Reports 3 days of sx at home, then 3 days in POD. Denies social precipitants to sx, states no stress, no problems, family is [employer]ist. Reports compliance with medications. Identifies Lanny johnson as her major support [phone]. Identifes knee pain, Left side and possible pending surgery. Attends day program which she enjoys, has friends at the program and likes to spend time there watching movies and TV. Has created her own smoking taper program-currently 6 cigarettes daily. Discussed self harming thoughts when anxious, feeling desparate, when CAH tell her so. Reports no bowel movement in three days. Asks to increase miralax as she takes this tid at home. Medication Compliance: Yes Side effects from medications: No Attending Groups: No Review of Systems Acute medical concerns: No Medical Review of Systems: unchanged Mental Status Exam Mental Status Exam Patient Appearance: Fatigued Patient Orientation: Person Level of Consciousness: Alert Patient Behavior: Talkative and Good Eye Contact Mood Description: Depressed Affect Description: Flat Patient Cognition Impaired: No Ability to Follow Directions: Fair Speech Pattern: Spontaneous Speech Memory Description: Episodic Impaired Hallucinations: Auditory and Visual Delusions: Paranoid Ideation Thought Process: Distracted and Rumination Thought Content: positive for [place], positive for Perseveration and positive for Suicidal Ideation (denies) Depressive Symptoms: Thoughts of /Suicide Judgement: Fair Diagnostics Vital Signs (24Hr): Vital Signs - 24 hr 06/21/23 22:05 06/22/23 08:30 Temperature 97.2 F 97.0 F Pulse Rate 111 H 84 Respiratory Rate 16 Blood Pressure 137/78 107/62 Pulse Oximetry 94 Oxygen Delivery Method Room Air BMI result Body Mass Index 34.6 Labs 06/18/23 19:58 06/21/23 08:12 Labs: Laboratory Results - last 48 hr 06/21/23 06/21/23 06/21/23 08:12 12:05 17:18 Sodium 139 Potassium 4.6 Chloride 101 Carbon Dioxide 26 Anion Gap 17 BUN 13 Creatinine 0.59 Estim Creat Clear Calc 106.8 Estimated GFR > 60 POC Glucose 102 101 Fasting Glucose 115 H Estimat Average Glucose 117 Hemoglobin A1c % 5.7 Calcium 9.7 Magnesium 2.0 Total Bilirubin 0.2 AST 13 ALT 14 Alkaline Phosphatase 72 Total Protein 7.2 Albumin 4.0 Triglycerides 113 Cholesterol 200 H LDL Cholesterol, Calc 133 H HDL Cholesterol 45 Vitamin B12 377 Folate 10.9 TSH 3.27 Free T4 0.78 06/21/23 06/22/23 06/22/23 21:54 08:13 12:17 Sodium Potassium Chloride Carbon Dioxide Anion Gap BUN Creatinine Estim Creat Clear Calc Estimated GFR POC Glucose 205 H 92 99 Fasting Glucose Estimat Average Glucose Hemoglobin A1c % Calcium Magnesium Total Bilirubin AST ALT Alkaline Phosphatase Total Protein Albumin Triglycerides Cholesterol LDL Cholesterol, Calc HDL Cholesterol Vitamin B12 Folate TSH Free T4 Medications Medications Current Medications Acetaminophen (Acetaminophen 325 Mg Tablet) 650 mg PO Q6H PRN PRN Reason: Headache/Pain Mild Scale (1-3) Al Hydroxide/Mg Hydroxide (Magnesium Hydrox/Alum Hydrox 30 Ml Oral.Susp) 30 ml PO Q6H PRN PRN Reason: Heartburn/Nausea Albuterol Sulfate (Albuterol Sulfate 90 Mcg 8 Gm Inhaler) 2 puff INHALE RQ4H PRN PRN Reason: wheeze Benzocaine (Throat Lozenge, Medicated Lozenge) 1 lozenge MUCOUS MEM Q2H PRN PRN Reason: Sore Throat Capsaicin (Capsaicin 0.025% Cream 60 Gm Tube) 1 appl TOPICAL QID PRN; Protocol PRN Reason: Pain, Mild (Pain Scale 1-3) Chlorpromazine HCl (Chlorpromazine Hcl 25 Mg Tablet) 25 mg PO Q6H PRN PRN Reason: sx of AH, VH, psychosis Clonazepam (Clonazepam 0.5 Mg Tablet) 0.5 mg PO DAILY [facility] Last Admin: 06/22/23 08:30 Dose: 0.5 mg Clonazepam (Clonazepam 1 Mg Tablet) 1 mg PO BEDTIME [facility] Last Admin: 06/21/23 22:15 Dose: 1 mg Clozapine (Clozapine 100 Mg Tablet) 300 mg PO BEDTIME [facility] Last Admin: 06/21/23 22:14 Dose: 300 mg Clozapine (Clozapine 25 Mg Tablet) 75 mg PO DAILY [facility] Dextrose (Dextrose 50 % 25 Gm/50 Ml Syringe) 25 gm IVPUSH Q15M PRN; Protocol PRN Reason: per Hypoglycemia Standing Ord. Diltiazem HCl (Diltiazem Hcl Cd 120 Mg Cap.Er.Deg) 120 mg PO DAILY [facility]; Protocol Last Admin: 06/22/23 08:30 Dose: 120 mg Divalproex Sodium (Divalproex Sodium Er 500 Mg Tab.Er.24h) 1,500 mg PO BEDTIME [facility] Last Admin: 06/21/23 22:15 Dose: 1,500 mg Docusate Sodium (Docusate Sodium 100 Mg Capsule) 100 mg PO BID PRN PRN Reason: Constipation Fluoxetine HCl (Fluoxetine Hcl 10 Mg Capsule) 30 mg PO DAILY [facility] Fluticasone Propionate (Fluticasone Propionate 100 Mcg Blst.W.Dev) 2 puff INHALE RBID [facility] Last Admin: 06/22/23 08:34 Dose: 2 puff Glucose (Glucose Gel 15 Gm Gel..Gram.) 15 gm PO Q15M PRN; Protocol PRN Reason: per Hypoglycemia Standing Ord. Hydroxyzine HCl (Hydroxyzine Hcl 25 Mg Tablet) 25 mg PO Q6H PRN PRN Reason: Anxiety Lisinopril (Lisinopril 10 Mg Tablet) 10 mg PO BEDTIME [facility]; Protocol Last Admin: 06/21/23 22:14 Dose: 10 mg Loratadine (Loratadine 10 Mg Tablet) 10 mg PO DAILY [facility] Last Admin: 06/22/23 08:30 Dose: 10 mg Magnesium Hydroxide (Milk Of Magnesia 30 Ml Oral.Susp) 30 ml PO BEDTIME PRN PRN Reason: constipation Magnesium Hydroxide (Milk Of Magnesia 30 Ml Oral.Susp) 30 ml PO DAILY PRN PRN Reason: Constipation Metformin HCl (Metformin Hcl Er 500 Mg Tab.Er.24h) 500 mg PO BID [facility] Last Admin: 06/22/23 08:30 Dose: 500 mg Montelukast Sodium (Montelukast Sodium 10 Mg Tablet) 10 mg PO DAILY [facility] Last Admin: 06/22/23 08:30 Dose: 10 mg Nicotine (Nicotine 21 Mg Patch.Td24) 21 mg TRANSDERMA DAILY [facility] Last Admin: 06/22/23 08:42 Dose: Not Given Nicotine Polacrilex (Nicotine Polacrilex Lozenge 4 Mg Lozenge) 4 mg BUCCAL Q2H PRN PRN Reason: Nicotine Cravings Omeprazole (Omeprazole 20 Mg Capsule.) 20 mg PO BID@0630,1630 [facility] Last Admin: 06/22/23 05:52 Dose: 20 mg Polyethylene Glycol (Polyethylene Glycol 3350 17 Gm Powd.Pack) 17 gm PO TID [facility] Senna (Sennosides 8.6 Mg Tablet) 17.2 mg PO BEDTIME PRN PRN Reason: constipation Sucralfate (Sucralfate 1 Gm Tablet) 1 gm PO TID [facility] Last Admin: 06/22/23 08:30 Dose: 1 gm Tramadol HCl (Tramadol Hcl 50 Mg Tablet) 50 mg PO TID PRN PRN Reason: Pain, Moderate Last Admin: 06/21/23 22:28 Dose: 50 mg Allergies Allergies Allergy/AdvReac Type Severity Reaction Status Date / Time diazepam [From Valium] Allergy Unknown Unknown Verified 04/27/23 10:04 haloperidol [From Haldol] Allergy Unknown Unknown Verified 04/27/23 10:04 Penicillins Allergy Unknown Unknown Verified 04/27/23 10:04 risperidone [From Risperdal] Allergy Unknown Unknown Verified 04/27/23 10:04 aspirin [Aspirin] AdvReac Intermediate Vomiting Verified 04/27/23 10:04 trazodone [TRAZODONE] AdvReac Intermediate NAUSEA & Verified 04/27/23 10:04 VOMITING Assessment & Plan Assessment & Plan (1) Schizophrenia: Status: Acute Code(s): F20.9 - Schizophrenia, unspecified Plan 57 yo female, hx of schizophrenia, PTSD, reports to crisis VH, AH, SI due to CAH. Today she refuses to meet with team and prefers to spend time resting in bed. Plan: Continue attempts to connect with pt. Review of previous admits, crisis team reports. Similiar presentations to previous admits with similiar sx. Continue regime Add Chlorpromazine prn 06/22/23 Capsaicin prn for knee pain Increase Miralax to tid-pt reports constipation and takes this dose at home Increase Prozac from 20 mg daily to 30 mg daily to address reported depressive sx. Increase a.m. Clozapine from 50 mg a.m. to 75 mg a.m. to address CAH Pt asks that her discharge plan [facility] with [facility]. Patient educated on: medication risk/benefits, therapeutic strategies and other Informed Consent: understands Reason for continued inpatient stay Substantial Risk for: harm to self, inability to function and rapid decompensation Time Spent With Patient Time: Total time managing care of this patient today ____ minutes.
[2023-06-22 16:46] VITALS: BP 152/82; PULSE 108; RESP 16; TEMP 36.1; O2SAT 96
[2023-06-22 20:58] VITALS: BP 143/90; PULSE 94; RESP 18
[2023-06-22] MEDS: lisinopriL 10 MG TABLET PO (21:18)
[2023-06-22] MEDS: cloZAPine 100 MG TABLET 300 MG PO (21:18)
[2023-06-22] MEDS: clonazePAM 1 MG TABLET PO (21:18)
[2023-06-22] MEDS: Divalproex Sodium ER 500 MG TAB.ER.24H 1500 MG PO (21:19)
[2023-06-22] MEDS: Capsaicin 0.025% Cream 60 GM TUBE 1 APPL TOPICAL (21:20)
[2023-06-22] MEDS: traMADoL HCL 50 MG TABLET PO (21:23)
[2023-06-23] MEDS: Omeprazole 20 MG CAPSULE.DR PO ×2 (06:19→17:42)
[2023-06-23 08:00] VITALS: BP 110/56; PULSE 83; RESP 16; TEMP 36.1; O2SAT 95
[2023-06-23 08:35] LABS: Glucose, Whole Blood 101 mg/dL (60-115)
[2023-06-23] MEDS: polyethylene glycoL 3350 17 GM POWD.PACK PO ×3 (08:59→23:05)
[2023-06-23] MEDS: cloZAPine 25 MG TABLET 75 MG PO (09:00)
[2023-06-23] MEDS: Sucralfate 1 GM TABLET PO ×3 (09:00→23:05)
[2023-06-23] MEDS: metFORMIN HCl ER 500 MG TAB.ER.24H PO ×2 (09:00→22:00)
[2023-06-23] MEDS: Montelukast Sodium 10 MG TABLET PO (09:00)
[2023-06-23] MEDS: clonazePAM 0.5 MG TABLET PO (09:00)
[2023-06-23] MEDS: FLUoxetine HCl 10 MG CAPSULE 30 MG PO (09:00)
[2023-06-23] MEDS: Loratadine 10 MG TABLET PO (09:00)
[2023-06-23] MEDS: Fluticasone Propionate 100 MCG BLST.W.DEV 2 PUFF INHALE ×2 (09:17→22:28)
--- NOTE | 2023-06-23 11:54 | P.PNPSI_ITS ---
Subjective Subjective Date of Service: 06/23/23 Reason For Visit: ptsd, schizophrenia Subjective Notes: Conditional Voluntary Healthcare Proxy: Yes Guardianship: No Medical Problems Affecting Mental Status: No Interim History: Isolative and tends to stay in bed. Voices continue. Eating and sleeping OK. Medication Compliance: Yes Side effects from medications: No Attending Groups: Intermittent Review of Systems Acute medical concerns: No Medical Review of Systems: unchanged Mental Status Exam Mental Status Exam Patient Appearance: Unkempt Patient Orientation: Person and Place Level of Consciousness: Drowsy Patient Behavior: Sedated Mood Description: Calm Affect Description: Apathetic Patient Cognition Impaired: No Ability to Follow Directions: Good Speech Pattern: Clear Memory Description: Intact Hallucinations: Auditory Delusions: Not Present Thought Process: Slowed Thinking Thought Content: positive for [place] of Content Depressive Symptoms: Loss of Energy Judgement: Fair Diagnostics Vital Signs (24Hr): Vital Signs - 24 hr 06/22/23 16:46 06/22/23 20:58 06/23/23 08:00 Temperature 96.9 F 96.9 F Pulse Rate 108 H 94 83 Respiratory Rate 16 18 16 Blood Pressure 152/82 H 143/90 H 110/56 L Pulse Oximetry 96 95 Oxygen Delivery Method Room Air Room Air BMI result Body Mass Index 34.6 Labs 06/18/23 19:58 06/21/23 08:12 Labs: Laboratory Results - last 48 hr 06/21/23 06/21/23 06/21/23 12:05 17:18 21:54 POC Glucose 102 101 205 H 06/22/23 06/22/23 06/23/23 08:13 12:17 08:30 POC Glucose 92 99 101 Medications Medications Current Medications Acetaminophen (Acetaminophen 325 Mg Tablet) 650 mg PO Q6H PRN PRN Reason: Headache/Pain Mild Scale (1-3) Al Hydroxide/Mg Hydroxide (Magnesium Hydrox/Alum Hydrox 30 Ml Oral.Susp) 30 ml PO Q6H PRN PRN Reason: Heartburn/Nausea Albuterol Sulfate (Albuterol Sulfate 90 Mcg 8 Gm Inhaler) 2 puff INHALE RQ4H PRN PRN Reason: wheeze Benzocaine (Throat Lozenge, Medicated Lozenge) 1 lozenge MUCOUS MEM Q2H PRN PRN Reason: Sore Throat Capsaicin (Capsaicin 0.025% Cream 60 Gm Tube) 1 appl TOPICAL QID PRN; Protocol PRN Reason: Pain, Mild (Pain Scale 1-3) Last Admin: 06/22/23 21:20 Dose: 1 appl Chlorpromazine HCl (Chlorpromazine Hcl 25 Mg Tablet) 25 mg PO Q6H PRN PRN Reason: sx of AH, VH, psychosis Clonazepam (Clonazepam 0.5 Mg Tablet) 0.5 mg PO DAILY [facility] Last Admin: 06/23/23 09:00 Dose: 0.5 mg Clonazepam (Clonazepam 1 Mg Tablet) 1 mg PO BEDTIME [facility] Last Admin: 06/22/23 21:18 Dose: 1 mg Clozapine (Clozapine 100 Mg Tablet) 300 mg PO BEDTIME [facility] Last Admin: 06/22/23 21:18 Dose: 300 mg Clozapine (Clozapine 25 Mg Tablet) 75 mg PO DAILY [facility] Last Admin: 06/23/23 09:00 Dose: 75 mg Dextrose (Dextrose 50 % 25 Gm/50 Ml Syringe) 25 gm IVPUSH Q15M PRN; Protocol PRN Reason: per Hypoglycemia Standing Ord. Diltiazem HCl (Diltiazem Hcl Cd 120 Mg Cap.Er.Deg) 120 mg PO DAILY [facility]; Protocol Last Admin: 06/23/23 09:10 Dose: Not Given Divalproex Sodium (Divalproex Sodium Er 500 Mg Tab.Er.24h) 1,500 mg PO BEDTIME [facility] Last Admin: 06/22/23 21:19 Dose: 1,500 mg Docusate Sodium (Docusate Sodium 100 Mg Capsule) 100 mg PO BID PRN PRN Reason: Constipation Fluoxetine HCl (Fluoxetine Hcl 10 Mg Capsule) 30 mg PO DAILY [facility] Last Admin: 06/23/23 09:00 Dose: 30 mg Fluticasone Propionate (Fluticasone Propionate 100 Mcg Blst.W.Dev) 2 puff INHALE RBID [facility] Last Admin: 06/23/23 09:17 Dose: 2 puff Glucose (Glucose Gel 15 Gm Gel..Gram.) 15 gm PO Q15M PRN; Protocol PRN Reason: per Hypoglycemia Standing Ord. Hydroxyzine HCl (Hydroxyzine Hcl 25 Mg Tablet) 25 mg PO Q6H PRN PRN Reason: Anxiety Lisinopril (Lisinopril 10 Mg Tablet) 10 mg PO BEDTIME [facility]; Protocol Last Admin: 06/22/23 21:18 Dose: 10 mg Loratadine (Loratadine 10 Mg Tablet) 10 mg PO DAILY [facility] Last Admin: 06/23/23 09:00 Dose: 10 mg Magnesium Hydroxide (Milk Of Magnesia 30 Ml Oral.Susp) 30 ml PO BEDTIME PRN PRN Reason: constipation Magnesium Hydroxide (Milk Of Magnesia 30 Ml Oral.Susp) 30 ml PO DAILY PRN PRN Reason: Constipation Metformin HCl (Metformin Hcl Er 500 Mg Tab.Er.24h) 500 mg PO BID [facility] Last Admin: 06/23/23 09:00 Dose: 500 mg Montelukast Sodium (Montelukast Sodium 10 Mg Tablet) 10 mg PO DAILY [facility] Last Admin: 06/23/23 09:00 Dose: 10 mg Nicotine (Nicotine 21 Mg Patch.Td24) 21 mg TRANSDERMA DAILY [facility] Last Admin: 06/23/23 09:18 Dose: Not Given Nicotine Polacrilex (Nicotine Polacrilex Lozenge 4 Mg Lozenge) 4 mg BUCCAL Q2H PRN PRN Reason: Nicotine Cravings Omeprazole (Omeprazole 20 Mg Capsule.Dr) 20 mg PO BID@0630,1630 [facility] Last Admin: 06/23/23 06:19 Dose: 20 mg Polyethylene Glycol (Polyethylene Glycol 3350 17 Gm Powd.Pack) 17 gm PO TID [facility] Last Admin: 06/23/23 08:59 Dose: 17 gm Senna (Sennosides 8.6 Mg Tablet) 17.2 mg PO BEDTIME PRN PRN Reason: constipation Sucralfate (Sucralfate 1 Gm Tablet) 1 gm PO TID [facility] Last Admin: 06/23/23 09:00 Dose: 1 gm Tramadol HCl (Tramadol Hcl 50 Mg Tablet) 50 mg PO TID PRN PRN Reason: Pain, Moderate Last Admin: 06/22/23 21:23 Dose: 50 mg Allergies Allergies Allergy/AdvReac Type Severity Reaction Status Date / Time diazepam [From Valium] Allergy Unknown Unknown Verified 04/27/23 10:04 haloperidol [From Haldol] Allergy Unknown Unknown Verified 04/27/23 10:04 Penicillins Allergy Unknown Unknown Verified 04/27/23 10:04 risperidone [From Risperdal] Allergy Unknown Unknown Verified 04/27/23 10:04 aspirin [Aspirin] AdvReac Intermediate Vomiting Verified 04/27/23 10:04 trazodone [TRAZODONE] AdvReac Intermediate NAUSEA & Verified 04/27/23 10:04 VOMITING Assessment & Plan Assessment & Plan (1) Schizophrenia: Status: Acute Code(s): F20.9 - Schizophrenia, unspecified Plan 57 yo female, hx of schizophrenia, PTSD, reports to crisis VH, AH, SI due to CAH. Today she refuses to meet with team and prefers to spend time resting in bed. Plan: Continue attempts to connect with pt. Review of previous admits, crisis team reports. Similiar presentations to previous admits with similiar sx. Continue regime Add Chlorpromazine prn 06/23/23 : no changes clozapine and miralax just increased 06/22/23 Capsaicin prn for knee pain Increase Miralax to tid-pt reports constipation and takes this dose at home Increase Prozac from 20 mg daily to 30 mg daily to address reported depressive sx. Increase a.m. Clozapine from 50 mg a.m. to 75 mg a.m. to address CAH Pt asks that her discharge plan [facility] with [facility]. Reason for continued inpatient stay Substantial Risk for: rapid decompensation Time Spent With Patient Time: Total time managing care of this patient today ____ minutes.
[2023-06-23] MEDS: chlorproMAZINE HCl 25 MG TABLET PO (17:42)
[2023-06-23 18:00] VITALS: BP 137/87; PULSE 104; RESP 18; TEMP 37.1; O2SAT 95
[2023-06-23] MEDS: Divalproex Sodium ER 500 MG TAB.ER.24H 1500 MG PO (22:00)
[2023-06-23] MEDS: traMADoL HCL 50 MG TABLET PO (22:28)
[2023-06-23] MEDS: Capsaicin 0.025% Cream 60 GM TUBE 1 APPL TOPICAL (22:31)
[2023-06-23] MEDS: clonazePAM 1 MG TABLET PO (22:44)
[2023-06-23] MEDS: lisinopriL 10 MG TABLET PO (23:03)
[2023-06-23] MEDS: cloZAPine 100 MG TABLET 300 MG PO (23:03)
[2023-06-24] MEDS: Omeprazole 20 MG CAPSULE.DR PO ×2 (06:33→17:56)
[2023-06-24 08:00] VITALS: BP 135/73; PULSE 91; RESP 16; TEMP 36.6; O2SAT 96
[2023-06-24 08:24] LABS: Glucose, Whole Blood 99 mg/dL (60-115)
[2023-06-24] MEDS: polyethylene glycoL 3350 17 GM POWD.PACK PO ×3 (09:02→21:35)
[2023-06-24] MEDS: cloZAPine 25 MG TABLET 75 MG PO (09:04)
[2023-06-24] MEDS: metFORMIN HCl ER 500 MG TAB.ER.24H PO ×2 (09:04→21:35)
[2023-06-24] MEDS: FLUoxetine HCl 10 MG CAPSULE 30 MG PO (09:04)
[2023-06-24] MEDS: Sucralfate 1 GM TABLET PO ×3 (09:05→21:35)
[2023-06-24] MEDS: Montelukast Sodium 10 MG TABLET PO (09:05)
[2023-06-24] MEDS: dilTIAZem HCL CD 120 MG CAP.ER.DEG PO (09:05)
[2023-06-24] MEDS: Fluticasone Propionate 100 MCG BLST.W.DEV 2 PUFF INHALE ×2 (09:05→21:05)
[2023-06-24] MEDS: Loratadine 10 MG TABLET PO (09:05)
[2023-06-24] MEDS: clonazePAM 0.5 MG TABLET PO (09:47)
--- NOTE | 2023-06-24 11:12 | P.PNPSI_ITS ---
Subjective Subjective Date of Service: 06/24/23 Reason For Visit: ptsd, schizophrenia Subjective Notes: Conditional Voluntary Healthcare Proxy: No Guardianship: No Medical Problems Affecting Mental Status: No Interim History: Had passive SI this morning but not now. Reports still hearing voices that can be scary but no commands and states they are not as bad as they were when she first came in. Reports trouble sleeping last night but is in bed during the day. States she wants to go to respite in [place] after leaving here. Eating OK. Had soft BM yesterday. Medication Compliance: Yes Side effects from medications: No Attending Groups: No Review of Systems Acute medical concerns: No Medical Review of Systems: unchanged Mental Status Exam Mental Status Exam Patient Appearance: Unkempt Patient Orientation: Person, Place, Time and Situation Patient Behavior: Appropriate Mood Description: Anxious Affect Description: Calm Patient Cognition Impaired: No Ability to Follow Directions: Good Speech Pattern: Clear Hallucinations: Auditory Delusions: Not Present Thought Process: Linear Depressive Symptoms: Increased Anxiety, Difficulty Sleeping and Thoughts of /Suicide Judgement: Fair Diagnostics Vital Signs (24Hr): Vital Signs - 24 hr 06/23/23 18:00 06/24/23 08:00 Temperature 98.7 F 97.9 F Pulse Rate 104 H 91 Respiratory Rate 18 16 Blood Pressure 137/87 135/73 Pulse Oximetry 95 96 Oxygen Delivery Method Room Air Room Air BMI result Body Mass Index 34.6 Labs 06/18/23 19:58 06/21/23 08:12 Labs: Laboratory Results - last 48 hr 06/22/23 06/23/23 06/24/23 12:17 08:30 08:17 POC Glucose 99 101 99 Medications Medications Current Medications Acetaminophen (Acetaminophen 325 Mg Tablet) 650 mg PO Q6H PRN PRN Reason: Headache/Pain Mild Scale (1-3) Al Hydroxide/Mg Hydroxide (Magnesium Hydrox/Alum Hydrox 30 Ml Oral.Susp) 30 ml PO Q6H PRN PRN Reason: Heartburn/Nausea Albuterol Sulfate (Albuterol Sulfate 90 Mcg 8 Gm Inhaler) 2 puff INHALE RQ4H PRN PRN Reason: wheeze Benzocaine (Throat Lozenge, Medicated Lozenge) 1 lozenge MUCOUS MEM Q2H PRN PRN Reason: Sore Throat Capsaicin (Capsaicin 0.025% Cream 60 Gm Tube) 1 appl TOPICAL QID PRN; Protocol PRN Reason: Pain, Mild (Pain Scale 1-3) Last Admin: 06/23/23 22:31 Dose: 1 appl Chlorpromazine HCl (Chlorpromazine Hcl 25 Mg Tablet) 25 mg PO Q6H PRN PRN Reason: sx of AH, VH, psychosis Last Admin: 06/23/23 17:42 Dose: 25 mg Clonazepam (Clonazepam 1 Mg Tablet) 1 mg PO BEDTIME [facility] Last Admin: 06/23/23 22:44 Dose: 1 mg Clonazepam (Clonazepam 0.5 Mg Tablet) 0.5 mg PO DAILY [facility] Last Admin: 06/24/23 09:47 Dose: 0.5 mg Clozapine (Clozapine 100 Mg Tablet) 300 mg PO BEDTIME [facility] Last Admin: 06/23/23 23:03 Dose: 300 mg Clozapine (Clozapine 25 Mg Tablet) 75 mg PO DAILY [facility] Last Admin: 06/24/23 09:04 Dose: 75 mg Dextrose (Dextrose 50 % 25 Gm/50 Ml Syringe) 25 gm IVPUSH Q15M PRN; Protocol PRN Reason: per Hypoglycemia Standing Ord. Diltiazem HCl (Diltiazem Hcl Cd 120 Mg Cap.Er.Deg) 120 mg PO DAILY [facility]; Protocol Last Admin: 06/24/23 09:05 Dose: 120 mg Divalproex Sodium (Divalproex Sodium Er 500 Mg Tab.Er.24h) 1,500 mg PO BEDTIME [facility] Last Admin: 06/23/23 22:00 Dose: 1,500 mg Docusate Sodium (Docusate Sodium 100 Mg Capsule) 100 mg PO BID PRN PRN Reason: Constipation Fluoxetine HCl (Fluoxetine Hcl 10 Mg Capsule) 30 mg PO DAILY [facility] Last Admin: 06/24/23 09:04 Dose: 30 mg Fluticasone Propionate (Fluticasone Propionate 100 Mcg Blst.W.Dev) 2 puff INHALE RBID [facility] Last Admin: 06/24/23 09:05 Dose: 2 puff Glucose (Glucose Gel 15 Gm Gel..Gram.) 15 gm PO Q15M PRN; Protocol PRN Reason: per Hypoglycemia Standing Ord. Hydroxyzine HCl (Hydroxyzine Hcl 25 Mg Tablet) 25 mg PO Q6H PRN PRN Reason: Anxiety Lisinopril (Lisinopril 10 Mg Tablet) 10 mg PO BEDTIME [facility]; Protocol Last Admin: 06/23/23 23:03 Dose: 10 mg Loratadine (Loratadine 10 Mg Tablet) 10 mg PO DAILY [facility] Last Admin: 06/24/23 09:05 Dose: 10 mg Magnesium Hydroxide (Milk Of Magnesia 30 Ml Oral.Susp) 30 ml PO BEDTIME PRN PRN Reason: constipation Magnesium Hydroxide (Milk Of Magnesia 30 Ml Oral.Susp) 30 ml PO DAILY PRN PRN Reason: Constipation Metformin HCl (Metformin Hcl Er 500 Mg Tab.Er.24h) 500 mg PO BID [facility] Last Admin: 06/24/23 09:04 Dose: 500 mg Montelukast Sodium (Montelukast Sodium 10 Mg Tablet) 10 mg PO DAILY [facility] Last Admin: 06/24/23 09:05 Dose: 10 mg Nicotine (Nicotine 21 Mg Patch.Td24) 21 mg TRANSDERMA DAILY [facility] Last Admin: 06/24/23 09:08 Dose: Not Given Nicotine Polacrilex (Nicotine Polacrilex Lozenge 4 Mg Lozenge) 4 mg BUCCAL Q2H PRN PRN Reason: Nicotine Cravings Omeprazole (Omeprazole 20 Mg Capsule.Dr) 20 mg PO BID@0630,1630 [facility] Last Admin: 06/24/23 06:33 Dose: 20 mg Polyethylene Glycol (Polyethylene Glycol 3350 17 Gm Powd.Pack) 17 gm PO TID [facility] Last Admin: 06/24/23 09:02 Dose: 17 gm Senna (Sennosides 8.6 Mg Tablet) 17.2 mg PO BEDTIME PRN PRN Reason: constipation Sucralfate (Sucralfate 1 Gm Tablet) 1 gm PO TID [facility] Last Admin: 06/24/23 09:05 Dose: 1 gm Tramadol HCl (Tramadol Hcl 50 Mg Tablet) 50 mg PO TID PRN PRN Reason: Pain, Moderate Last Admin: 06/23/23 22:28 Dose: 50 mg Allergies Allergies Allergy/AdvReac Type Severity Reaction Status Date / Time diazepam [From Valium] Allergy Unknown Unknown Verified 04/27/23 10:04 haloperidol [From Haldol] Allergy Unknown Unknown Verified 04/27/23 10:04 Penicillins Allergy Unknown Unknown Verified 04/27/23 10:04 risperidone [From Risperdal] Allergy Unknown Unknown Verified 04/27/23 10:04 aspirin [Aspirin] AdvReac Intermediate Vomiting Verified 04/27/23 10:04 trazodone [TRAZODONE] AdvReac Intermediate NAUSEA & Verified 04/27/23 10:04 VOMITING Assessment & Plan Assessment & Plan (1) Schizophrenia: Status: Acute Code(s): F20.9 - Schizophrenia, unspecified Plan 57 yo female, hx of schizophrenia, PTSD, reports to crisis VH, AH, SI due to CAH. Today she refuses to meet with team and prefers to spend time resting in bed. Plan: Continue attempts to connect with pt. Review of previous admits, crisis team reports. Similiar presentations to previous admits with similiar sx. Continue regime Add Chlorpromazine prn 06/23/23 : no changes clozapine and miralax just increased 06/22/23 Capsaicin prn for knee pain Increase Miralax to tid-pt reports constipation and takes this dose at home Increase Prozac from 20 mg daily to 30 mg daily to address reported depressive sx. Increase a.m. Clozapine from 50 mg a.m. to 75 mg a.m. to address CAH Pt asks that her discharge plan [facility] stay with [facility]. 06/23/23: Consider scheduling more clozapine at night and less in AM 06/24/23: no med changes Reason for continued inpatient stay Substantial Risk for: harm to self Time Spent With Patient Time: Total time managing care of this patient today ____ minutes.
[2023-06-24 20:55] VITALS: BP 124/63; PULSE 111
[2023-06-24] MEDS: traMADoL HCL 50 MG TABLET PO (21:02)
[2023-06-24] MEDS: Divalproex Sodium ER 500 MG TAB.ER.24H 1500 MG PO (21:04)
[2023-06-24] MEDS: lisinopriL 10 MG TABLET PO (21:04)
[2023-06-24] MEDS: cloZAPine 100 MG TABLET 300 MG PO (21:04)
[2023-06-24] MEDS: clonazePAM 1 MG TABLET PO (21:04)
[2023-06-24] MEDS: Capsaicin 0.025% Cream 60 GM TUBE 1 APPL TOPICAL (21:32)
[2023-06-25] MEDS: Omeprazole 20 MG CAPSULE.DR PO ×2 (06:36→17:57)
[2023-06-25 08:15] VITALS: BP 107/66; PULSE 85; RESP 18; TEMP 36.1
[2023-06-25] MEDS: Sucralfate 1 GM TABLET PO ×3 (08:35→22:13)
[2023-06-25] MEDS: dilTIAZem HCL CD 120 MG CAP.ER.DEG PO (08:35)
[2023-06-25] MEDS: polyethylene glycoL 3350 17 GM POWD.PACK PO ×3 (08:35→22:32)
[2023-06-25] MEDS: clonazePAM 0.5 MG TABLET PO (08:36)
[2023-06-25] MEDS: FLUoxetine HCl 10 MG CAPSULE 30 MG PO (08:36)
[2023-06-25] MEDS: Loratadine 10 MG TABLET PO (08:36)
[2023-06-25] MEDS: Montelukast Sodium 10 MG TABLET PO (08:36)
[2023-06-25] MEDS: cloZAPine 25 MG TABLET 75 MG PO (08:36)
[2023-06-25] MEDS: metFORMIN HCl ER 500 MG TAB.ER.24H PO ×2 (08:36→22:15)
[2023-06-25] MEDS: Fluticasone Propionate 100 MCG BLST.W.DEV 2 PUFF INHALE ×2 (08:58→22:32)
--- NOTE | 2023-06-25 09:39 | HO.PSYCHPN ---
Subjective Subjective Date of Service: 06/25/23 Reason For Visit: ptsd, schizophrenia Subjective Notes: Conditional Voluntary Healthcare Proxy: No Guardianship: No Medical Problems Affecting Mental Status: No Interim History: Reports a decrease in voices. States she was visited by [facility] over the weekend and respite was discussed. She continues to report wanting to follow up with this, however, does not feel prepared for discharge yet. Continues to report depressive, anxious sx . Aubree Beaulieuiott [facility] discussed with pt her contact with care provider, Lanny who has known pt for 20 years and who discussed this being a pattern with pt which continues to improve, however, holiday times are difficult, and the stress of pending knee surgery is a burden for pt as well. Medication Compliance: Yes Side effects from medications: No Attending Groups: No Review of Systems Acute medical concerns: No Medical Review of Systems: unchanged Mental Status Exam Mental Status Exam Patient Appearance: Appropriate Patient Orientation: Person, Place, Time and Situation Level of Consciousness: Awake and Alert Patient Behavior: Appropriate, Talkative and Good Eye Contact Mood Description: Apprehensive Affect Description: Flat Patient Cognition Impaired: No Ability to Follow Directions: Good Speech Pattern: Spontaneous Speech Memory Description: Intact Hallucinations: Auditory (reports some improvement) Delusions: Not Present Perceptual Disturbances: Depersonalization and Derealization Thought Process: Rumination Thought Content: positive for Circumstantial and positive for Suicidal Ideation (denies today) Depressive Symptoms: Increased Anxiety and Thoughts of /Suicide (denies) Judgement: Fair Diagnostics Vital Signs (24Hr): Vital Signs - 24 hr 06/24/23 20:55 Pulse Rate 111 H Blood Pressure 124/63 BMI result Body Mass Index 34.6 Labs 06/18/23 19:58 06/21/23 08:12 Labs: Laboratory Results - last 48 hr 06/24/23 08:17 POC Glucose 99 Medications Medications Current Medications Acetaminophen (Acetaminophen 325 Mg Tablet) 650 mg PO Q6H PRN PRN Reason: Headache/Pain Mild Scale (1-3) Al Hydroxide/Mg Hydroxide (Magnesium Hydrox/Alum Hydrox 30 Ml Oral.Susp) 30 ml PO Q6H PRN PRN Reason: Heartburn/Nausea Albuterol Sulfate (Albuterol Sulfate 90 Mcg 8 Gm Inhaler) 2 puff INHALE RQ4H PRN PRN Reason: wheeze Benzocaine (Throat Lozenge, Medicated Lozenge) 1 lozenge MUCOUS MEM Q2H PRN PRN Reason: Sore Throat Capsaicin (Capsaicin 0.025% Cream 60 Gm Tube) 1 appl TOPICAL QID PRN; Protocol PRN Reason: Pain, Mild (Pain Scale 1-3) Last Admin: 06/24/23 21:32 Dose: 1 appl Chlorpromazine HCl (Chlorpromazine Hcl 25 Mg Tablet) 25 mg PO Q6H PRN PRN Reason: sx of AH, VH, psychosis Last Admin: 06/23/23 17:42 Dose: 25 mg Clonazepam (Clonazepam 1 Mg Tablet) 1 mg PO BEDTIME [facility] Last Admin: 06/24/23 21:04 Dose: 1 mg Clonazepam (Clonazepam 0.5 Mg Tablet) 0.5 mg PO DAILY [facility] Last Admin: 06/25/23 08:36 Dose: 0.5 mg Clozapine (Clozapine 100 Mg Tablet) 300 mg PO BEDTIME [facility]XMI Last Admin: 06/24/23 21:04 Dose: 300 mg Clozapine (Clozapine 25 Mg Tablet) 75 mg PO DAILY [facility] Last Admin: 06/25/23 08:36 Dose: 75 mg Dextrose (Dextrose 50 % 25 Gm/50 Ml Syringe) 25 gm IVPUSH Q15M PRN; Protocol PRN Reason: per Hypoglycemia Standing Ord. Diltiazem HCl (Diltiazem Hcl Cd 120 Mg Cap.Er.Deg) 120 mg PO DAILY [facility]; Protocol Last Admin: 06/25/23 08:35 Dose: 120 mg Divalproex Sodium (Divalproex Sodium Er 500 Mg Tab.Er.24h) 1,500 mg PO BEDTIME [facility] Last Admin: 06/24/23 21:04 Dose: 1,500 mg Docusate Sodium (Docusate Sodium 100 Mg Capsule) 100 mg PO BID PRN PRN Reason: Constipation Fluoxetine HCl (Fluoxetine Hcl 10 Mg Capsule) 30 mg PO DAILY [facility] Last Admin: 06/25/23 08:36 Dose: 30 mg Fluticasone Propionate (Fluticasone Propionate 100 Mcg Blst.W.Dev) 2 puff INHALE RBID [facility] Last Admin: 06/25/23 08:58 Dose: 2 puff Glucose (Glucose Gel 15 Gm Gel..Gram.) 15 gm PO Q15M PRN; Protocol PRN Reason: per Hypoglycemia Standing Ord. Hydroxyzine HCl (Hydroxyzine Hcl 25 Mg Tablet) 25 mg PO Q6H PRN PRN Reason: Anxiety Lisinopril (Lisinopril 10 Mg Tablet) 10 mg PO BEDTIME [facility]; Protocol Last Admin: 06/24/23 21:04 Dose: 10 mg Loratadine (Loratadine 10 Mg Tablet) 10 mg PO DAILY [facility] Last Admin: 06/25/23 08:36 Dose: 10 mg Magnesium Hydroxide (Milk Of Magnesia 30 Ml Oral.Susp) 30 ml PO BEDTIME PRN PRN Reason: constipation Magnesium Hydroxide (Milk Of Magnesia 30 Ml Oral.Susp) 30 ml PO DAILY PRN PRN Reason: Constipation Metformin HCl (Metformin Hcl Er 500 Mg Tab.Er.24h) 500 mg PO BID [facility] Last Admin: 06/25/23 08:36 Dose: 500 mg Montelukast Sodium (Montelukast Sodium 10 Mg Tablet) 10 mg PO DAILY [facility] Last Admin: 06/25/23 08:36 Dose: 10 mg Nicotine (Nicotine 21 Mg Patch.Td24) 21 mg TRANSDERMA DAILY [facility] Last Admin: 06/25/23 08:41 Dose: Not Given Nicotine Polacrilex (Nicotine Polacrilex Lozenge 4 Mg Lozenge) 4 mg BUCCAL Q2H PRN PRN Reason: Nicotine Cravings Omeprazole (Omeprazole 20 Mg Capsule.Dr) 20 mg PO BID@0630,1630 [facility] Last Admin: 06/25/23 06:36 Dose: 20 mg Polyethylene Glycol (Polyethylene Glycol 3350 17 Gm Powd.Pack) 17 gm PO TID [facility] Last Admin: 06/25/23 08:35 Dose: 17 gm Senna (Sennosides 8.6 Mg Tablet) 17.2 mg PO BEDTIME PRN PRN Reason: constipation Sucralfate (Sucralfate 1 Gm Tablet) 1 gm PO TID [facility] Last Admin: 06/25/23 08:35 Dose: 1 gm Tramadol HCl (Tramadol Hcl 50 Mg Tablet) 50 mg PO TID PRN PRN Reason: Pain, Moderate Last Admin: 06/24/23 21:02 Dose: 50 mg Allergies Allergies Allergy/AdvReac Type Severity Reaction Status Date / Time diazepam [From Valium] Allergy Unknown Unknown Verified 04/27/23 10:04 haloperidol [From Haldol] Allergy Unknown Unknown Verified 04/27/23 10:04 Penicillins Allergy Unknown Unknown Verified 04/27/23 10:04 risperidone [From Risperdal] Allergy Unknown Unknown Verified 04/27/23 10:04 aspirin [Aspirin] AdvReac Intermediate Vomiting Verified 04/27/23 10:04 trazodone [TRAZODONE] AdvReac Intermediate NAUSEA & Verified 04/27/23 10:04 VOMITING Assessment & Plan Assessment & Plan (1) Schizophrenia: Status: Acute Code(s): F20.9 - Schizophrenia, unspecified Plan 57 yo female, hx of schizophrenia, PTSD, reports to crisis VH, AH, SI due to CAH. Today she refuses to meet with team and prefers to spend time resting in bed. Plan: Continue attempts to connect with pt. Review of previous admits, crisis team reports. Similiar presentations to previous admits with similiar sx. Continue regime Add Chlorpromazine prn 06/23/23 : no changes clozapine and miralax just increased 06/22/23 Capsaicin prn for knee pain Increase Miralax to tid-pt reports constipation and takes this dose at home Increase Prozac from 20 mg daily to 30 mg daily to address reported depressive sx. Increase a.m. Clozapine from 50 mg a.m. to 75 mg a.m. to address CAH Pt asks that her discharge plan [facility] with [facility]. 06/23/23: Consider scheduling more clozapine at night and less in AM 06/24/23: no med changes 06/25/23: Continue current regime and plan of care. Patient educated on: medication risk/benefits Informed Consent: understands and further education needed Reason for continued inpatient stay Substantial Risk for: rapid decompensation Time Spent With Patient Time: Total time managing care of this patient today ____ minutes.
[2023-06-25 12:22] LABS: Neut%MD 48.6 %; Neutrophils Absolute Auto 4.8 x10*3/uL (2.0-8.3); WBCANC 9.8 X10*3/uL
[2023-06-25 18:00] VITALS: BP 122/75; PULSE 81; RESP 16; TEMP 36; O2SAT 95
[2023-06-25] MEDS: Divalproex Sodium ER 500 MG TAB.ER.24H 1500 MG PO (22:12)
[2023-06-25] MEDS: cloZAPine 100 MG TABLET 300 MG PO (22:13)
[2023-06-25] MEDS: lisinopriL 10 MG TABLET PO (22:14)
[2023-06-25] MEDS: traMADoL HCL 50 MG TABLET PO (22:15)
[2023-06-25] MEDS: clonazePAM 1 MG TABLET PO (22:15)
[2023-06-26] MEDS: Omeprazole 20 MG CAPSULE.DR PO ×2 (05:44→18:42)
[2023-06-26 08:42] VITALS: BP 115/60; PULSE 83; RESP 16; TEMP 36.1; O2SAT 95
[2023-06-26] MEDS: Fluticasone Propionate 100 MCG BLST.W.DEV 2 PUFF INHALE ×2 (08:43→22:44)
[2023-06-26] MEDS: cloZAPine 25 MG TABLET 75 MG PO (08:43)
[2023-06-26] MEDS: polyethylene glycoL 3350 17 GM POWD.PACK PO ×3 (08:43→22:46)
[2023-06-26] MEDS: Sucralfate 1 GM TABLET PO ×3 (08:44→22:37)
[2023-06-26] MEDS: dilTIAZem HCL CD 120 MG CAP.ER.DEG PO (08:44)
[2023-06-26] MEDS: metFORMIN HCl ER 500 MG TAB.ER.24H PO ×2 (08:44→22:36)
[2023-06-26] MEDS: Loratadine 10 MG TABLET PO (08:44)
[2023-06-26] MEDS: clonazePAM 0.5 MG TABLET PO (08:44)
[2023-06-26] MEDS: FLUoxetine HCl 10 MG CAPSULE 30 MG PO (08:44)
[2023-06-26] MEDS: Montelukast Sodium 10 MG TABLET PO (08:44)
[2023-06-26 08:52] LABS: Glucose, Whole Blood 107 mg/dL (60-115)
[2023-06-26] MEDS: traMADoL HCL 50 MG TABLET PO ×2 (09:08→22:44)
--- NOTE | 2023-06-26 16:25 | HO.PSYCHPN ---
Subjective Subjective Date of Service: 06/26/23 Reason For Visit: ptsd, schizophrenia Subjective Notes: Conditional Voluntary Healthcare Proxy: No Guardianship: No Medical Problems Affecting Mental Status: No Interim History: Pt reports feeling improved today. She was visited by Miladys fisher [facility] and this was positive for her. She denies SI, reports sx of depression, anxiety, perceptual alterations are improving although at times she struggles with CAH to self harm. She continues to want to use respite services upon discharge. Denies a.m. sedation from recent clozapine increase. Medication Compliance: Yes Side effects from medications: No Attending Groups: No Review of Systems Acute medical concerns: No Medical Review of Systems: unchanged Mental Status Exam Mental Status Exam Patient Appearance: Appropriate Patient Orientation: Person, Place, Time and Situation Level of Consciousness: Awake and Alert Patient Behavior: Appropriate, Talkative and Good Eye Contact Mood Description: Apprehensive Affect Description: Flat Patient Cognition Impaired: No Ability to Follow Directions: Good Speech Pattern: Spontaneous Speech Memory Description: Intact Hallucinations: Auditory (reports some improvement) Delusions: Not Present Perceptual Disturbances: Depersonalization and Derealization Thought Process: Rumination Thought Content: positive for Circumstantial and positive for Suicidal Ideation (denies today) Depressive Symptoms: Increased Anxiety and Thoughts of /Suicide (denies) Judgement: Fair Diagnostics Vital Signs (24Hr): Vital Signs - 24 hr 06/25/23 18:00 06/26/23 08:42 Temperature 96.8 F 96.9 F Pulse Rate 81 83 Respiratory Rate 16 16 Blood Pressure 122/75 115/60 Pulse Oximetry 95 95 Oxygen Delivery Method Room Air Room Air BMI result Body Mass Index 34.6 Labs 06/18/23 19:58 06/21/23 08:12 Labs: Laboratory Results - last 48 hr 06/25/23 06/26/23 12:14 08:41 Absolute Neuts (auto) 4.8 POC Glucose 107 Medications Medications Current Medications Acetaminophen (Acetaminophen 325 Mg Tablet) 650 mg PO Q6H PRN PRN Reason: Headache/Pain Mild Scale (1-3) Al Hydroxide/Mg Hydroxide (Magnesium Hydrox/Alum Hydrox 30 Ml Oral.Susp) 30 ml PO Q6H PRN PRN Reason: Heartburn/Nausea Albuterol Sulfate (Albuterol Sulfate 90 Mcg 8 Gm Inhaler) 2 puff INHALE RQ4H PRN PRN Reason: wheeze Benzocaine (Throat Lozenge, Medicated Lozenge) 1 lozenge MUCOUS MEM Q2H PRN PRN Reason: Sore Throat Capsaicin (Capsaicin 0.025% Cream 60 Gm Tube) 1 appl TOPICAL QID PRN; Protocol PRN Reason: Pain, Mild (Pain Scale 1-3) Last Admin: 06/24/23 21:32 Dose: 1 appl Chlorpromazine HCl (Chlorpromazine Hcl 25 Mg Tablet) 25 mg PO Q6H PRN PRN Reason: sx of AH, VH, psychosis Last Admin: 06/23/23 17:42 Dose: 25 mg Clonazepam (Clonazepam 1 Mg Tablet) 1 mg PO BEDTIME [facility] Last Admin: 06/25/23 22:15 Dose: 1 mg Clonazepam (Clonazepam 0.5 Mg Tablet) 0.5 mg PO DAILY [facility] Last Admin: 06/26/23 08:44 Dose: 0.5 mg Clozapine (Clozapine 100 Mg Tablet) 300 mg PO BEDTIME [facility] Last Admin: 06/25/23 22:13 Dose: 300 mg Clozapine (Clozapine 25 Mg Tablet) 75 mg PO DAILY [facility] Last Admin: 06/26/23 08:43 Dose: 75 mg Dextrose (Dextrose 50 % 25 Gm/50 Ml Syringe) 25 gm IVPUSH Q15M PRN; Protocol PRN Reason: per Hypoglycemia Standing Ord. Diltiazem HCl (Diltiazem Hcl Cd 120 Mg Cap.Er.Deg) 120 mg PO DAILY [facility]; Protocol Last Admin: 06/26/23 08:44 Dose: 120 mg Divalproex Sodium (Divalproex Sodium Er 500 Mg Tab.Er.24h) 1,500 mg PO BEDTIME [facility] Last Admin: 06/25/23 22:12 Dose: 1,500 mg Docusate Sodium (Docusate Sodium 100 Mg Capsule) 100 mg PO BID PRN PRN Reason: Constipation Fluoxetine HCl (Fluoxetine Hcl 10 Mg Capsule) 30 mg PO DAILY [facility] Last Admin: 06/26/23 08:44 Dose: 30 mg Fluticasone Propionate (Fluticasone Propionate 100 Mcg Blst.W.Dev) 2 puff INHALE RBID [facility] Last Admin: 06/26/23 08:43 Dose: 2 puff Glucose (Glucose Gel 15 Gm Gel..Gram.) 15 gm PO Q15M PRN; Protocol PRN Reason: per Hypoglycemia Standing Ord. Hydroxyzine HCl (Hydroxyzine Hcl 25 Mg Tablet) 25 mg PO Q6H PRN PRN Reason: Anxiety Lisinopril (Lisinopril 10 Mg Tablet) 10 mg PO BEDTIME [facility]; Protocol Last Admin: 06/25/23 22:14 Dose: 10 mg Loratadine (Loratadine 10 Mg Tablet) 10 mg PO DAILY [facility] Last Admin: 06/26/23 08:44 Dose: 10 mg Magnesium Hydroxide (Milk Of Magnesia 30 Ml Oral.Susp) 30 ml PO BEDTIME PRN PRN Reason: constipation Magnesium Hydroxide (Milk Of Magnesia 30 Ml Oral.Susp) 30 ml PO DAILY PRN PRN Reason: Constipation Metformin HCl (Metformin Hcl Er 500 Mg Tab.Er.24h) 500 mg PO BID [facility] Last Admin: 06/26/23 08:44 Dose: 500 mg Montelukast Sodium (Montelukast Sodium 10 Mg Tablet) 10 mg PO DAILY [facility] Last Admin: 06/26/23 08:44 Dose: 10 mg Nicotine (Nicotine 21 Mg Patch.Td24) 21 mg TRANSDERMA DAILY [facility] Last Admin: 06/26/23 08:48 Dose: Not Given Nicotine Polacrilex (Nicotine Polacrilex Lozenge 4 Mg Lozenge) 4 mg BUCCAL Q2H PRN PRN Reason: Nicotine Cravings Omeprazole (Omeprazole 20 Mg Capsule.Dr) 20 mg PO BID@0630,1630 [facility] Last Admin: 06/26/23 05:44 Dose: 20 mg Polyethylene Glycol (Polyethylene Glycol 3350 17 Gm Powd.Pack) 17 gm PO TID [facility] Last Admin: 06/26/23 14:24 Dose: 17 gm Senna (Sennosides 8.6 Mg Tablet) 17.2 mg PO BEDTIME PRN PRN Reason: constipation Sucralfate (Sucralfate 1 Gm Tablet) 1 gm PO TID [facility] Last Admin: 06/26/23 14:24 Dose: 1 gm Tramadol HCl (Tramadol Hcl 50 Mg Tablet) 50 mg PO TID PRN PRN Reason: Pain, Moderate Last Admin: 06/26/23 09:08 Dose: 50 mg Allergies Allergies Allergy/AdvReac Type Severity Reaction Status Date / Time diazepam [From Valium] Allergy Unknown Unknown Verified 04/27/23 10:04 haloperidol [From Haldol] Allergy Unknown Unknown Verified 04/27/23 10:04 Penicillins Allergy Unknown Unknown Verified 04/27/23 10:04 risperidone [From Risperdal] Allergy Unknown Unknown Verified 04/27/23 10:04 aspirin [Aspirin] AdvReac Intermediate Vomiting Verified 04/27/23 10:04 trazodone [TRAZODONE] AdvReac Intermediate NAUSEA & Verified 04/27/23 10:04 VOMITING Assessment & Plan Assessment & Plan (1) Schizophrenia: Status: Acute Code(s): F20.9 - Schizophrenia, unspecified Plan 57 yo female, hx of schizophrenia, PTSD, reports to crisis VH, AH, SI due to CAH. Today she refuses to meet with team and prefers to spend time resting in bed. Plan: Continue attempts to connect with pt. Review of previous admits, crisis team reports. Similiar presentations to previous admits with similiar sx. Continue regime Add Chlorpromazine prn 06/23/23 : no changes clozapine and miralax just increased 06/22/23 Capsaicin prn for knee pain Increase Miralax to tid-pt reports constipation and takes this dose at home Increase Prozac from 20 mg daily to 30 mg daily to address reported depressive sx. Increase a.m. Clozapine from 50 mg a.m. to 75 mg a.m. to address CAH Pt asks that her discharge plan include a stay with [facility]. 06/23/23: Consider scheduling more clozapine at night and less in AM 06/24/23: no med changes 06/26/23 continue current regime and plan of care. Discharge planning. Patient educated on: therapeutic strategies Informed Consent: understands and further education needed Reason for continued inpatient stay Substantial Risk for: rapid decompensation Time Spent With Patient Time: Total time managing care of this patient today ____ minutes.
[2023-06-26 16:35] VITALS: BP 125/70; PULSE 99; RESP 16; TEMP 36.1; O2SAT 95
[2023-06-26] MEDS: cloZAPine 100 MG TABLET 300 MG PO (22:36)
[2023-06-26] MEDS: Divalproex Sodium ER 500 MG TAB.ER.24H 1500 MG PO (22:36)
[2023-06-26] MEDS: clonazePAM 1 MG TABLET PO (22:37)
[2023-06-26] MEDS: lisinopriL 10 MG TABLET PO (22:37)
[2023-06-27] MEDS: Omeprazole 20 MG CAPSULE.DR PO ×2 (05:50→16:28)
[2023-06-27] MEDS: FLUoxetine HCl 10 MG CAPSULE 30 MG PO (08:33)
[2023-06-27] MEDS: polyethylene glycoL 3350 17 GM POWD.PACK PO ×2 (08:33→21:20)
[2023-06-27 08:34] LABS: Glucose, Whole Blood 106 mg/dL (60-115)
[2023-06-27] MEDS: clonazePAM 0.5 MG TABLET PO (08:34)
[2023-06-27] MEDS: dilTIAZem HCL CD 120 MG CAP.ER.DEG PO (08:34)
[2023-06-27] MEDS: Loratadine 10 MG TABLET PO (08:34)
[2023-06-27] MEDS: Montelukast Sodium 10 MG TABLET PO (08:34)
[2023-06-27] MEDS: cloZAPine 25 MG TABLET 75 MG PO (08:34)
[2023-06-27] MEDS: metFORMIN HCl ER 500 MG TAB.ER.24H PO ×2 (08:34→21:20)
[2023-06-27] MEDS: Sucralfate 1 GM TABLET PO ×3 (08:34→21:20)
[2023-06-27 08:35] VITALS: BP 119/64; PULSE 89; RESP 18; TEMP 36.1; O2SAT 93
[2023-06-27 08:52] LABS: Estimated Glomerular Filt Rate > 60
--- NOTE | 2023-06-27 16:21 | P.PNPSI_ITS ---
Subjective Subjective Date of Service: 06/27/23 Reason For Visit: ptsd, schizophrenia Subjective Notes: Conditional Voluntary Healthcare Proxy: No Guardianship: No Medical Problems Affecting Mental Status: No Interim History: Brenna reports feeling improved. Denies SI. Denies AH/VH. Does report a.m. sedation. We will return a.m. Clozapine dose to 50 mg and increase HS dose to 325 mg, keeping the total dose equal with change of timing. Pt agrees. Discussed discharge planning. Will attempt for respite transfer on 07/02/23. Medication Compliance: Yes Side effects from medications: Yes (some a.m. sedation reported) Attending Groups: No Review of Systems Acute medical concerns: No Medical Review of Systems: unchanged Mental Status Exam Mental Status Exam Patient Appearance: Appropriate Patient Orientation: Person, Place, Time and Situation Level of Consciousness: Awake and Alert Patient Behavior: Appropriate, Talkative and Good Eye Contact Mood Description: Apprehensive Affect Description: Flat Patient Cognition Impaired: No Ability to Follow Directions: Good Speech Pattern: Spontaneous Speech Memory Description: Intact Hallucinations: Auditory (reports some improvement) Delusions: Not Present Perceptual Disturbances: Depersonalization and Derealization Thought Process: Rumination Thought Content: positive for Circumstantial and positive for Suicidal Ideation (denies today) Depressive Symptoms: Increased Anxiety and Thoughts of /Suicide (denies) Judgement: Fair Diagnostics Vital Signs (24Hr): Vital Signs - 24 hr 06/26/23 16:35 06/27/23 08:35 Temperature 97.0 F 96.9 F Pulse Rate 99 89 Respiratory Rate 16 18 Blood Pressure 125/70 119/64 Pulse Oximetry 95 93 Oxygen Delivery Method Room Air Room Air BMI result Body Mass Index 34.6 Labs 06/18/23 19:58 06/27/23 08:09 Labs: Laboratory Results - last 48 hr 06/26/23 06/27/23 06/27/23 08:41 08:09 08:12 Creatinine 0.65 Estim Creat Clear Calc 97.0 Estimated GFR > 60 POC Glucose 107 106 Medications Medications Current Medications Acetaminophen (Acetaminophen 325 Mg Tablet) 650 mg PO Q6H PRN PRN Reason: Headache/Pain Mild Scale (1-3) Al Hydroxide/Mg Hydroxide (Magnesium Hydrox/Alum Hydrox 30 Ml Oral.Susp) 30 ml PO Q6H PRN PRN Reason: Heartburn/Nausea Albuterol Sulfate (Albuterol Sulfate 90 Mcg 8 Gm Inhaler) 2 puff INHALE RQ4H PRN PRN Reason: wheeze Benzocaine (Throat Lozenge, Medicated Lozenge) 1 lozenge MUCOUS MEM Q2H PRN PRN Reason: Sore Throat Capsaicin (Capsaicin 0.025% Cream 60 Gm Tube) 1 appl TOPICAL QID PRN; Protocol PRN Reason: Pain, Mild (Pain Scale 1-3) Last Admin: 06/24/23 21:32 Dose: 1 appl Chlorpromazine HCl (Chlorpromazine Hcl 25 Mg Tablet) 25 mg PO Q6H PRN PRN Reason: sx of AH, VH, psychosis Last Admin: 06/23/23 17:42 Dose: 25 mg Clonazepam (Clonazepam 1 Mg Tablet) 1 mg PO BEDTIME [facility] Last Admin: 06/26/23 22:37 Dose: 1 mg Clonazepam (Clonazepam 0.5 Mg Tablet) 0.5 mg PO DAILY [facility] Last Admin: 06/27/23 08:34 Dose: 0.5 mg Clozapine (Clozapine 100 Mg Tablet) 300 mg PO BEDTIME [facility] Last Admin: 06/26/23 22:36 Dose: 300 mg Clozapine (Clozapine 25 Mg Tablet) 75 mg PO DAILY [facility] Last Admin: 06/27/23 08:34 Dose: 75 mg Dextrose (Dextrose 50 % 25 Gm/50 Ml Syringe) 25 gm IVPUSH Q15M PRN; Protocol PRN Reason: per Hypoglycemia Standing Ord. Diltiazem HCl (Diltiazem Hcl Cd 120 Mg Cap.Er.Deg) 120 mg PO DAILY [facility]; Protocol Last Admin: 06/27/23 08:34 Dose: 120 mg Divalproex Sodium (Divalproex Sodium Er 500 Mg Tab.Er.24h) 1,500 mg PO BEDTIME [facility] Last Admin: 06/26/23 22:36 Dose: 1,500 mg Docusate Sodium (Docusate Sodium 100 Mg Capsule) 100 mg PO BID PRN PRN Reason: Constipation Fluoxetine HCl (Fluoxetine Hcl 10 Mg Capsule) 30 mg PO DAILY [facility] Last Admin: 06/27/23 08:33 Dose: 30 mg Fluticasone Propionate (Fluticasone Propionate 100 Mcg Blst.W.Dev) 2 puff INHALE RBID [facility] Last Admin: 06/27/23 08:40 Dose: Not Given Glucose (Glucose Gel 15 Gm Gel..Gram.) 15 gm PO Q15M PRN; Protocol PRN Reason: per Hypoglycemia Standing Ord. Hydroxyzine HCl (Hydroxyzine Hcl 25 Mg Tablet) 25 mg PO Q6H PRN PRN Reason: Anxiety Lisinopril (Lisinopril 10 Mg Tablet) 10 mg PO BEDTIME [facility]; Protocol Last Admin: 06/26/23 22:37 Dose: 10 mg Loratadine (Loratadine 10 Mg Tablet) 10 mg PO DAILY [facility] Last Admin: 06/27/23 08:34 Dose: 10 mg Magnesium Hydroxide (Milk Of Magnesia 30 Ml Oral.Susp) 30 ml PO BEDTIME PRN PRN Reason: constipation Magnesium Hydroxide (Milk Of Magnesia 30 Ml Oral.Susp) 30 ml PO DAILY PRN PRN Reason: Constipation Metformin HCl (Metformin Hcl Er 500 Mg Tab.Er.24h) 500 mg PO BID [facility] Last Admin: 06/27/23 08:34 Dose: 500 mg Montelukast Sodium (Montelukast Sodium 10 Mg Tablet) 10 mg PO DAILY [facility] Last Admin: 06/27/23 08:34 Dose: 10 mg Nicotine (Nicotine 21 Mg Patch.Td24) 21 mg TRANSDERMA DAILY [facility] Last Admin: 06/27/23 09:18 Dose: Not Given Nicotine Polacrilex (Nicotine Polacrilex Lozenge 4 Mg Lozenge) 4 mg BUCCAL Q2H PRN PRN Reason: Nicotine Cravings Omeprazole (Omeprazole 20 Mg Capsule.Dr) 20 mg PO BID@0630,1630 [facility] Last Admin: 06/27/23 05:50 Dose: 20 mg Polyethylene Glycol (Polyethylene Glycol 3350 17 Gm Powd.Pack) 17 gm PO TID [facility] Last Admin: 06/27/23 14:26 Dose: Not Given Senna (Sennosides 8.6 Mg Tablet) 17.2 mg PO BEDTIME PRN PRN Reason: constipation Sucralfate (Sucralfate 1 Gm Tablet) 1 gm PO TID [facility] Last Admin: 06/27/23 14:25 Dose: 1 gm Tramadol HCl (Tramadol Hcl 50 Mg Tablet) 50 mg PO TID PRN PRN Reason: Pain, Moderate Last Admin: 06/26/23 22:44 Dose: 50 mg Allergies Allergies Allergy/AdvReac Type Severity Reaction Status Date / Time diazepam [From Valium] Allergy Unknown Unknown Verified 04/27/23 10:04 haloperidol [From Haldol] Allergy Unknown Unknown Verified 04/27/23 10:04 Penicillins Allergy Unknown Unknown Verified 04/27/23 10:04 risperidone [From Risperdal] Allergy Unknown Unknown Verified 04/27/23 10:04 aspirin [Aspirin] AdvReac Intermediate Vomiting Verified 04/27/23 10:04 trazodone [TRAZODONE] AdvReac Intermediate NAUSEA & Verified 04/27/23 10:04 VOMITING Assessment & Plan Assessment & Plan (1) Schizophrenia: Status: Acute Code(s): F20.9 - Schizophrenia, unspecified Plan 57 yo female, hx of schizophrenia, PTSD, reports to crisis VH, AH, SI due to CAH. Today she refuses to meet with team and prefers to spend time resting in bed. Plan: Continue attempts to connect with pt. Review of previous admits, crisis team reports. Similiar presentations to previous admits with similiar sx. Continue regime Add Chlorpromazine prn 06/23/23 : no changes clozapine and miralax just increased 06/22/23 Capsaicin prn for knee pain Increase Miralax to tid-pt reports constipation and takes this dose at home Increase Prozac from 20 mg daily to 30 mg daily to address reported depressive sx. Increase a.m. Clozapine from 50 mg a.m. to 75 mg a.m. to address CAH Pt asks that her discharge plan include a stay with [facility]. 06/23/23: Consider scheduling more clozapine at night and less in AM 06/24/23: no med changes 06/26/23 continue current regime and plan of care. Discharge planning. 06/27/23 Change dosing of Clozapine to 50 mg a.m. 325 mg hs Discharge planning for respite tentative 07/02 Patient educated on: medication risk/benefits Informed Consent: understands Reason for continued inpatient stay Substantial Risk for: rapid decompensation Time Spent With Patient Time: Total time managing care of this patient today ____ minutes.
[2023-06-27 18:00] VITALS: BP 127/68; PULSE 102; RESP 18; O2SAT 95
[2023-06-27] MEDS: Fluticasone Propionate 100 MCG BLST.W.DEV 2 PUFF INHALE (20:03)
[2023-06-27] MEDS: lisinopriL 10 MG TABLET PO (21:20)
[2023-06-27] MEDS: cloZAPine 300 MG, cloZAPine 25 MG 325 MG PO (21:20)
[2023-06-27] MEDS: Divalproex Sodium ER 500 MG TAB.ER.24H 1500 MG PO (21:20)
[2023-06-27] MEDS: clonazePAM 1 MG TABLET PO (21:20)
[2023-06-27] MEDS: traMADoL HCL 50 MG TABLET PO (21:59)
[2023-06-28] MEDS: Omeprazole 20 MG CAPSULE.DR PO ×2 (06:41→15:43)
[2023-06-28 08:20] LABS: Glucose, Whole Blood 126 mg/dL (60-115)
[2023-06-28] MEDS: Fluticasone Propionate 100 MCG BLST.W.DEV 2 PUFF INHALE ×2 (09:11→22:15)
[2023-06-28] MEDS: dilTIAZem HCL CD 120 MG CAP.ER.DEG PO (09:12)
[2023-06-28] MEDS: Sucralfate 1 GM TABLET PO ×3 (09:12→22:16)
[2023-06-28] MEDS: cloZAPine 25 MG TABLET 50 MG PO (09:12)
[2023-06-28] MEDS: Loratadine 10 MG TABLET PO (09:12)
[2023-06-28] MEDS: FLUoxetine HCl 10 MG CAPSULE 30 MG PO (09:13)
[2023-06-28] MEDS: clonazePAM 0.5 MG TABLET PO (09:13)
[2023-06-28] MEDS: Montelukast Sodium 10 MG TABLET PO (09:13)
[2023-06-28] MEDS: metFORMIN HCl ER 500 MG TAB.ER.24H PO ×2 (09:13→22:16)
[2023-06-28 09:26] VITALS: BP 107/63; PULSE 107; RESP 18; TEMP 36.2; O2SAT 95
--- NOTE | 2023-06-28 16:14 | P.PNPSI_ITS ---
Subjective Subjective Date of Service: 06/28/23 Reason For Visit: ptsd, schizophrenia Subjective Notes: Conditional Voluntary Healthcare Proxy: No Guardianship: No Medical Problems Affecting Mental Status: No Interim History: Pt reports feeling well. Denies AH, Denies SI today. Starting to be more visable and interactive in milieu. Medication Compliance: Yes Side effects from medications: No Attending Groups: Intermittent Review of Systems Acute medical concerns: No Medical Review of Systems: unchanged Mental Status Exam Mental Status Exam Patient Appearance: Appropriate Patient Orientation: Person, Place, Time and Situation Level of Consciousness: Awake and Alert Patient Behavior: Appropriate, Talkative and Good Eye Contact Mood Description: Apprehensive Affect Description: Flat Patient Cognition Impaired: No Ability to Follow Directions: Good Speech Pattern: Spontaneous Speech Memory Description: Intact Hallucinations: None Delusions: Not Present Thought Content: positive for Circumstantial and positive for Suicidal Ideation (denies today) Depressive Symptoms: Increased Anxiety and Thoughts of /Suicide (denies) Judgement: Good Diagnostics Vital Signs (24Hr): Vital Signs - 24 hr 06/27/23 18:00 06/28/23 09:26 Temperature 97.2 F Pulse Rate 102 H 107 H Respiratory Rate 18 18 Blood Pressure 127/68 107/63 Pulse Oximetry 95 95 Oxygen Delivery Method Room Air Room Air BMI result Body Mass Index 34.6 Labs 06/18/23 19:58 06/27/23 08:09 Labs: Laboratory Results - last 48 hr 06/27/23 06/27/23 06/28/23 08:09 08:12 08:15 Creatinine 0.65 Estim Creat Clear Calc 97.0 Estimated GFR > 60 POC Glucose 106 126 H Medications Medications Current Medications Acetaminophen (Acetaminophen 325 Mg Tablet) 650 mg PO Q6H PRN PRN Reason: Headache/Pain Mild Scale (1-3) Al Hydroxide/Mg Hydroxide (Magnesium Hydrox/Alum Hydrox 30 Ml Oral.Susp) 30 ml PO Q6H PRN PRN Reason: Heartburn/Nausea Albuterol Sulfate (Albuterol Sulfate 90 Mcg 8 Gm Inhaler) 2 puff INHALE RQ4H PRN PRN Reason: wheeze Benzocaine (Throat Lozenge, Medicated Lozenge) 1 lozenge MUCOUS MEM Q2H PRN PRN Reason: Sore Throat Capsaicin (Capsaicin 0.025% Cream 60 Gm Tube) 1 appl TOPICAL QID PRN; Protocol PRN Reason: Pain, Mild (Pain Scale 1-3) Last Admin: 06/24/23 21:32 Dose: 1 appl Chlorpromazine HCl (Chlorpromazine Hcl 25 Mg Tablet) 25 mg PO Q6H PRN PRN Reason: sx of AH, VH, psychosis Last Admin: 06/23/23 17:42 Dose: 25 mg Clonazepam (Clonazepam 1 Mg Tablet) 1 mg PO BEDTIME LAXMI Last Admin: 06/27/23 21:20 Dose: 1 mg Clonazepam (Clonazepam 0.5 Mg Tablet) 0.5 mg PO DAILY LAXMI Last Admin: 06/28/23 09:13 Dose: 0.5 mg Clozapine (Clozapine 25 Mg Tablet) 50 mg PO DAILY LAXMI Last Admin: 06/28/23 09:12 Dose: 50 mg Clozapine 300 mg/ Clozapine 25 (mg) 325 mg PO BEDTIME LAXMI Last Admin: 06/27/23 21:20 Dose: 325 mg Dextrose (Dextrose 50 % 25 Gm/50 Ml Syringe) 25 gm IVPUSH Q15M PRN; Protocol PRN Reason: per Hypoglycemia Standing Ord. Diltiazem HCl (Diltiazem Hcl Cd 120 Mg Cap.Er.Deg) 120 mg PO DAILY LAXMI; Protocol Last Admin: 06/28/23 09:12 Dose: 120 mg Divalproex Sodium (Divalproex Sodium Er 500 Mg Tab.Er.24h) 1,500 mg PO BEDTIME LAXMI Last Admin: 06/27/23 21:20 Dose: 1,500 mg Docusate Sodium (Docusate Sodium 100 Mg Capsule) 100 mg PO BID PRN PRN Reason: Constipation Fluoxetine HCl (Fluoxetine Hcl 10 Mg Capsule) 30 mg PO DAILY [facility]XMI Last Admin: 06/28/23 09:13 Dose: 30 mg Fluticasone Propionate (Fluticasone Propionate 100 Mcg Blst.W.Dev) 2 puff INHALE RBID [facility] Last Admin: 06/28/23 09:11 Dose: 2 puff Glucose (Glucose Gel 15 Gm Gel..Gram.) 15 gm PO Q15M PRN; Protocol PRN Reason: per Hypoglycemia Standing Ord. Hydroxyzine HCl (Hydroxyzine Hcl 25 Mg Tablet) 25 mg PO Q6H PRN PRN Reason: Anxiety Lisinopril (Lisinopril 10 Mg Tablet) 10 mg PO BEDTIME LAXMI; Protocol Last Admin: 06/27/23 21:20 Dose: 10 mg Loratadine (Loratadine 10 Mg Tablet) 10 mg PO DAILY [facility] Last Admin: 06/28/23 09:12 Dose: 10 mg Magnesium Hydroxide (Milk Of Magnesia 30 Ml Oral.Susp) 30 ml PO BEDTIME PRN PRN Reason: constipation Magnesium Hydroxide (Milk Of Magnesia 30 Ml Oral.Susp) 30 ml PO DAILY PRN PRN Reason: Constipation Metformin HCl (Metformin Hcl Er 500 Mg Tab.Er.24h) 500 mg PO BID [facility] Last Admin: 06/28/23 09:13 Dose: 500 mg Montelukast Sodium (Montelukast Sodium 10 Mg Tablet) 10 mg PO DAILY [facility] Last Admin: 06/28/23 09:13 Dose: 10 mg Nicotine (Nicotine 21 Mg Patch.Td24) 21 mg TRANSDERMA DAILY [facility] Last Admin: 06/28/23 09:49 Dose: Not Given Nicotine Polacrilex (Nicotine Polacrilex Lozenge 4 Mg Lozenge) 4 mg BUCCAL Q2H PRN PRN Reason: Nicotine Cravings Omeprazole (Omeprazole 20 Mg Capsule.Dr) 20 mg PO BID@0630,1630 [facility] Last Admin: 06/28/23 15:43 Dose: 20 mg Polyethylene Glycol (Polyethylene Glycol 3350 17 Gm Powd.Pack) 17 gm PO TID [facility] Last Admin: 06/28/23 14:40 Dose: Not Given Senna (Sennosides 8.6 Mg Tablet) 17.2 mg PO BEDTIME PRN PRN Reason: constipation Sucralfate (Sucralfate 1 Gm Tablet) 1 gm PO TID [facility] Last Admin: 06/28/23 14:37 Dose: 1 gm Tramadol HCl (Tramadol Hcl 50 Mg Tablet) 50 mg PO TID PRN PRN Reason: Pain, Moderate Last Admin: 06/27/23 21:59 Dose: 50 mg Allergies Allergies Allergy/AdvReac Type Severity Reaction Status Date / Time diazepam [From Valium] Allergy Unknown Unknown Verified 04/27/23 10:04 haloperidol [From Haldol] Allergy Unknown Unknown Verified 04/27/23 10:04 Penicillins Allergy Unknown Unknown Verified 04/27/23 10:04 risperidone [From Risperdal] Allergy Unknown Unknown Verified 04/27/23 10:04 aspirin [Aspirin] AdvReac Intermediate Vomiting Verified 04/27/23 10:04 trazodone [TRAZODONE] AdvReac Intermediate NAUSEA & Verified 04/27/23 10:04 VOMITING Assessment & Plan Assessment & Plan (1) Schizophrenia: Status: Acute Code(s): F20.9 - Schizophrenia, unspecified Plan 57 yo female, hx of schizophrenia, PTSD, reports to crisis VH, AH, SI due to CAH. Today she refuses to meet with team and prefers to spend time resting in bed. Plan: Continue attempts to connect with pt. Review of previous admits, crisis team reports. Similiar presentations to previous admits with similiar sx. Continue regime Add Chlorpromazine prn 06/23/23 : no changes clozapine and miralax just increased 06/22/23 Capsaicin prn for knee pain Increase Miralax to tid-pt reports constipation and takes this dose at home Increase Prozac from 20 mg daily to 30 mg daily to address reported depressive sx. Increase a.m. Clozapine from 50 mg a.m. to 75 mg a.m. to address CAH Pt asks that her discharge plan include [facility] with [facility]. 06/23/23: Consider scheduling more clozapine at night and less in AM 06/24/23: no med changes 06/26/23 continue current regime and plan of care. Discharge planning. 06/27/23 Change dosing of Clozapine to 50 mg a.m. 325 mg hs Discharge planning for respite tentative 07/0206/28/23 Continue current regime and plan of care Patient educated on: therapeutic strategies Informed Consent: understands Reason for continued inpatient stay Substantial Risk for: rapid decompensation Time Spent With Patient Time: Total time managing care of this patient today ____ minutes.
[2023-06-28 18:00] VITALS: BP 129/67; PULSE 104; RESP 16; TEMP 36.4; O2SAT 96
[2023-06-28] MEDS: cloZAPine 300 MG, cloZAPine 25 MG 325 MG PO (22:15)
[2023-06-28] MEDS: lisinopriL 10 MG TABLET PO (22:16)
[2023-06-28] MEDS: clonazePAM 1 MG TABLET PO (22:16)
[2023-06-28] MEDS: Divalproex Sodium ER 500 MG TAB.ER.24H 1500 MG PO (22:16)
[2023-06-28] MEDS: traMADoL HCL 50 MG TABLET PO (22:22)
[2023-06-29] MEDS: Omeprazole 20 MG CAPSULE.DR PO ×2 (06:20→15:58)
[2023-06-29 08:31] LABS: Glucose, Whole Blood 114 mg/dL (60-115)
[2023-06-29 09:15] VITALS: BP 103/62; PULSE 101; RESP 18; TEMP 36.6; O2SAT 98
[2023-06-29] MEDS: dilTIAZem HCL CD 120 MG CAP.ER.DEG PO (09:32)
[2023-06-29] MEDS: Loratadine 10 MG TABLET PO (09:32)
[2023-06-29] MEDS: Montelukast Sodium 10 MG TABLET PO (09:32)
[2023-06-29] MEDS: Sucralfate 1 GM TABLET PO ×3 (09:32→22:14)
[2023-06-29] MEDS: clonazePAM 0.5 MG TABLET PO (09:32)
[2023-06-29] MEDS: Fluticasone Propionate 100 MCG BLST.W.DEV 2 PUFF INHALE ×2 (09:32→22:10)
[2023-06-29] MEDS: metFORMIN HCl ER 500 MG TAB.ER.24H PO ×2 (09:32→22:13)
[2023-06-29] MEDS: FLUoxetine HCl 10 MG CAPSULE 30 MG PO (09:33)
[2023-06-29] MEDS: cloZAPine 25 MG TABLET 50 MG PO (09:33)
[2023-06-29] MEDS: traMADoL HCL 50 MG TABLET PO ×2 (09:37→22:12)
--- NOTE | 2023-06-29 14:47 | HO.PSYCHPN ---
Subjective Subjective Date of Service: 06/29/23 Reason For Visit: ptsd, schizophrenia Subjective Notes: Conditional Voluntary Healthcare Proxy: No Guardianship: No Medical Problems Affecting Mental Status: No Interim History: Pt reports feeling well. No medication SE, no daytime sedation. Pleased with changes thus far. Will order labs 06/30 and plan to ask for a respite bed 07/02 for 07/03. Pt agrees with this plan at this time. Attending to ADL's. Team reports she prefers to attend art themed groups and presents with a bright affect. Medication Compliance: Yes Side effects from medications: No Attending Groups: Intermittent Review of Systems Acute medical concerns: No Medical Review of Systems: unchanged Mental Status Exam Mental Status Exam Patient Appearance: Appropriate Patient Orientation: Person, Place, Time and Situation Level of Consciousness: Awake and Alert Patient Behavior: Appropriate, Talkative and Good Eye Contact Mood Description: Apprehensive Affect Description: Flat Patient Cognition Impaired: No Ability to Follow Directions: Good Speech Pattern: Spontaneous Speech Memory Description: Intact Hallucinations: None Delusions: Not Present Thought Content: positive for Circumstantial and positive for Suicidal Ideation (denies today) Depressive Symptoms: Increased Anxiety and Thoughts of /Suicide (denies) Judgement: Good Diagnostics Vital Signs (24Hr): Vital Signs - 24 hr 06/28/23 18:00 06/29/23 09:15 Temperature 97.5 F 97.8 F Pulse Rate 104 H 101 H Respiratory Rate 16 18 Blood Pressure 129/67 103/62 Pulse Oximetry 96 98 Oxygen Delivery Method Room Air Room Air BMI result Body Mass Index 34.6 Labs 06/18/23 19:58 06/27/23 08:09 Labs: Laboratory Results - last 48 hr 06/28/23 06/29/23 08:15 08:22 POC Glucose 126 H 114 Medications Medications Current Medications Acetaminophen (Acetaminophen 325 Mg Tablet) 650 mg PO Q6H PRN PRN Reason: Headache/Pain Mild Scale (1-3) Al Hydroxide/Mg Hydroxide (Magnesium Hydrox/Alum Hydrox 30 Ml Oral.Susp) 30 ml PO Q6H PRN PRN Reason: Heartburn/Nausea Albuterol Sulfate (Albuterol Sulfate 90 Mcg 8 Gm Inhaler) 2 puff INHALE RQ4H PRN PRN Reason: wheeze Benzocaine (Throat Lozenge, Medicated Lozenge) 1 lozenge MUCOUS MEM Q2H PRN PRN Reason: Sore Throat Capsaicin (Capsaicin 0.025% Cream 60 Gm Tube) 1 appl TOPICAL QID PRN; Protocol PRN Reason: Pain, Mild (Pain Scale 1-3) Last Admin: 06/24/23 21:32 Dose: 1 appl Chlorpromazine HCl (Chlorpromazine Hcl 25 Mg Tablet) 25 mg PO Q6H PRN PRN Reason: sx of AH, VH, psychosis Last Admin: 06/23/23 17:42 Dose: 25 mg Clonazepam (Clonazepam 1 Mg Tablet) 1 mg PO BEDTIME LAXMI Last Admin: 06/28/23 22:16 Dose: 1 mg Clonazepam (Clonazepam 0.5 Mg Tablet) 0.5 mg PO DAILY LAXMI Last Admin: 06/29/23 09:32 Dose: 0.5 mg Clozapine (Clozapine 25 Mg Tablet) 50 mg PO DAILY [facility] Last Admin: 06/29/23 09:33 Dose: 50 mg Clozapine 300 mg/ Clozapine 25 (mg) 325 mg PO BEDTIME [facility] Last Admin: 06/28/23 22:15 Dose: 325 mg Dextrose (Dextrose 50 % 25 Gm/50 Ml Syringe) 25 gm IVPUSH Q15M PRN; Protocol PRN Reason: per Hypoglycemia Standing Ord. Diltiazem HCl (Diltiazem Hcl Cd 120 Mg Cap.Er.Deg) 120 mg PO DAILY [facility]; Protocol Last Admin: 06/29/23 09:32 Dose: 120 mg Divalproex Sodium (Divalproex Sodium Er 500 Mg Tab.Er.24h) 1,500 mg PO BEDTIME [facility] Last Admin: 06/28/23 22:16 Dose: 1,500 mg Docusate Sodium (Docusate Sodium 100 Mg Capsule) 100 mg PO BID PRN PRN Reason: Constipation Fluoxetine HCl (Fluoxetine Hcl 10 Mg Capsule) 30 mg PO DAILY [facility] Last Admin: 06/29/23 09:33 Dose: 30 mg Fluticasone Propionate (Fluticasone Propionate 100 Mcg Blst.W.Dev) 2 puff INHALE RBID [facility] Last Admin: 06/29/23 09:32 Dose: 2 puff Glucose (Glucose Gel 15 Gm Gel..Gram.) 15 gm PO Q15M PRN; Protocol PRN Reason: per Hypoglycemia Standing Ord. Hydroxyzine HCl (Hydroxyzine Hcl 25 Mg Tablet) 25 mg PO Q6H PRN PRN Reason: Anxiety Lisinopril (Lisinopril 10 Mg Tablet) 10 mg PO BEDTIME [facility]; Protocol Last Admin: 06/28/23 22:16 Dose: 10 mg Loratadine (Loratadine 10 Mg Tablet) 10 mg PO DAILY [facility] Last Admin: 06/29/23 09:32 Dose: 10 mg Magnesium Hydroxide (Milk Of Magnesia 30 Ml Oral.Susp) 30 ml PO BEDTIME PRN PRN Reason: constipation Magnesium Hydroxide (Milk Of Magnesia 30 Ml Oral.Susp) 30 ml PO DAILY PRN PRN Reason: Constipation Metformin HCl (Metformin Hcl Er 500 Mg Tab.Er.24h) 500 mg PO BID [facility] Last Admin: 06/29/23 09:32 Dose: 500 mg Montelukast Sodium (Montelukast Sodium 10 Mg Tablet) 10 mg PO DAILY [facility] Last Admin: 06/29/23 09:32 Dose: 10 mg Nicotine (Nicotine 21 Mg Patch.Td24) 21 mg TRANSDERMA DAILY [facility] Last Admin: 06/29/23 10:15 Dose: Not Given Nicotine Polacrilex (Nicotine Polacrilex Lozenge 4 Mg Lozenge) 4 mg BUCCAL Q2H PRN PRN Reason: Nicotine Cravings Omeprazole (Omeprazole 20 Mg Capsule.Dr) 20 mg PO BID@0630,1630 [facility] Last Admin: 06/29/23 06:20 Dose: 20 mg Polyethylene Glycol (Polyethylene Glycol 3350 17 Gm Powd.Pack) 17 gm PO DAILY PRN PRN Reason: constipation Senna (Sennosides 8.6 Mg Tablet) 17.2 mg PO BEDTIME PRN PRN Reason: constipation Sucralfate (Sucralfate 1 Gm Tablet) 1 gm PO TID [facility] Last Admin: 06/29/23 14:10 Dose: 1 gm Tramadol HCl (Tramadol Hcl 50 Mg Tablet) 50 mg PO TID PRN PRN Reason: Pain, Moderate Last Admin: 06/29/23 09:37 Dose: 50 mg Allergies Allergies Allergy/AdvReac Type Severity Reaction Status Date / Time diazepam [From Valium] Allergy Unknown Unknown Verified 04/27/23 10:04 haloperidol [From Haldol] Allergy Unknown Unknown Verified 04/27/23 10:04 Penicillins Allergy Unknown Unknown Verified 04/27/23 10:04 risperidone [From Risperdal] Allergy Unknown Unknown Verified 04/27/23 10:04 aspirin [Aspirin] AdvReac Intermediate Vomiting Verified 04/27/23 10:04 trazodone [TRAZODONE] AdvReac Intermediate NAUSEA & Verified 04/27/23 10:04 VOMITING Assessment & Plan Assessment & Plan (1) Schizophrenia: Status: Acute Code(s): F20.9 - Schizophrenia, unspecified Plan 57 yo female, hx of schizophrenia, PTSD, reports to crisis VH, AH, SI due to CAH. Today she refuses to meet with team and prefers to spend time resting in bed. Plan: Continue attempts to connect with pt. Review of previous admits, crisis team reports. Similiar presentations to previous admits with similiar sx. Continue regime Add Chlorpromazine prn 06/23/23 : no changes clozapine and miralax just increased 06/22/23 Capsaicin prn for knee pain Increase Miralax to tid-pt reports constipation and takes this dose at home Increase Prozac from 20 mg daily to 30 mg daily to address reported depressive sx. Increase a.m. Clozapine from 50 mg a.m. to 75 mg a.m. to address CAH Pt asks that her discharge plan [facility] with [facility]. 06/23/23: Consider scheduling more clozapine at night and less in AM 06/24/23: no med changes 06/26/23 continue current regime and plan of care. Discharge planning. 06/27/23 Change dosing of Clozapine to 50 mg a.m. 325 mg hs Discharge planning for respite tentative 07/0206/29/23 Valproate, Clozapine, CBCD, CMP levels Probable respite discharge 07/03. Patient educated on: medication risk/benefits and therapeutic strategies Informed Consent: understands and further education needed Reason for continued inpatient stay Substantial Risk for: rapid decompensation Time Spent With Patient Time: Total time managing care of this patient today ____ minutes.
[2023-06-29 18:00] VITALS: BP 121/68; PULSE 104; RESP 18; TEMP 36.6; O2SAT 95
[2023-06-29] MEDS: cloZAPine 300 MG, cloZAPine 25 MG 325 MG PO (22:10)
[2023-06-29] MEDS: lisinopriL 10 MG TABLET PO (22:13)
[2023-06-29] MEDS: Divalproex Sodium ER 500 MG TAB.ER.24H 1500 MG PO (22:13)
[2023-06-29] MEDS: clonazePAM 1 MG TABLET PO (22:13)
[2023-06-29] MEDS: polyethylene glycoL 3350 17 GM POWD.PACK PO (22:24)
[2023-06-30] MEDS: Omeprazole 20 MG CAPSULE.DR PO ×2 (06:00→16:21)
[2023-06-30 08:08] LABS: MANUAL DIFF FLAG NO
[2023-06-30 08:15] LABS: Basophils Percent Auto 0.3 % (0-2); Eosinophils Absolute Auto 0.1 X10*3/uL (0.0-0.4); Eosinophils Percent Auto 1.5 % (0-4); Hematocrit 36.9 % (37.0-47.0); Hemoglobin 11.9 g/dl (12.0-16.0); Imm Gran Abs Auto 0.14 X10*3/uL (0.00-0.03); Imm Gran Pct Auto 1.5 % (0.0-0.4); Lymphocytes Percent Auto 43.2 % (20-40); Mean Corpuscular HGB Conc 32.2 g/dl (31.0-35.0); Mean Corpuscular Hemoglobin 28.3 pg (27.0-33.0); Mean Corpuscular Volume 87.6 fL (80.0-98.0); Mean Platelet Volume 11.4 fL (9.4-12.3); Monocytes Absolute Auto 0.6 X10*3/uL (0.1-1.2); Monocytes Percent Auto 6.9 % (2-11); Neutrophils Absolute Auto 4.3 x10*3/uL (2.0-8.3); Neutrophils Percent Auto 46.6 % (45-73); Platelet Count 286 X10*3/uL (160-400); Red Blood Count 4.21 X10*6/uL (4.20-5.50); Red Cell Distribution Width 15.2 % (11.0-16.0); White Blood Count 9.2 X10*3/uL (4.8-10.8)
[2023-06-30 08:15] LABS: Glucose, Whole Blood 111 mg/dL (60-115)
[2023-06-30 08:30] LABS: Valproate 100.8 mcg/mL (50.0-100.0)
[2023-06-30 08:31] LABS: Alanine Aminotransferase 12 U/L (0-31); Albumin Level 3.9 g/dL (3.5-5.0); Alkaline Phosphatase 62 U/L (39-117); Anion Gap 14 (12-20); Aspartate Amino Transferase 12 U/L (5-31); Bilirubin Total 0.2 mg/dL (0.0-1.0); Blood Urea Nitrogen 19 mg/dL (9-16); Calcium 9.3 mg/dL (8.4-10.2); Carbon Dioxide 28 mmol/L (22-29); Chloride 97 mmol/L (96-108); Creatinine Clr Calc Pharmacy 101.7; Estimated Glomerular Filt Rate > 60; Glucose Random 113 mg/dL (60-115); Sodium 134 mmol/L (135-145); Total Protein 6.9 g/dL (6.5-8.0)
[2023-06-30 08:40] VITALS: BP 114/66; PULSE 98; RESP 18; TEMP 35.9; O2SAT 96
[2023-06-30] MEDS: Montelukast Sodium 10 MG TABLET PO (08:52)
[2023-06-30] MEDS: FLUoxetine HCl 10 MG CAPSULE 30 MG PO (08:52)
[2023-06-30] MEDS: clonazePAM 0.5 MG TABLET PO (08:52)
[2023-06-30] MEDS: dilTIAZem HCL CD 120 MG CAP.ER.DEG PO (08:53)
[2023-06-30] MEDS: cloZAPine 25 MG TABLET 50 MG PO (08:53)
[2023-06-30] MEDS: Loratadine 10 MG TABLET PO (08:53)
[2023-06-30] MEDS: metFORMIN HCl ER 500 MG TAB.ER.24H PO ×2 (08:53→21:58)
[2023-06-30] MEDS: Sucralfate 1 GM TABLET PO ×3 (08:53→21:58)
[2023-06-30] MEDS: Fluticasone Propionate 100 MCG BLST.W.DEV 2 PUFF INHALE ×2 (08:54→21:57)
[2023-06-30] MEDS: traMADoL HCL 50 MG TABLET PO ×2 (08:57→21:58)
--- NOTE | 2023-06-30 10:34 | HO.PSYCHPN ---
Subjective Subjective Date of Service: 06/30/23 Reason For Visit: ptsd, schizophrenia Subjective Notes: Conditional Voluntary Interim History: Pt reports feeling well. No medication SE, no daytime sedation. Pleased with changes thus far. VPA in high therapeutic range; HGB and HCT low but near normal. Pt attending to ADLs and presents with a bright affect. Medication Compliance: Yes Side effects from medications: No Attending Groups: Yes Review of Systems Acute medical concerns: No Medical Review of Systems: unchanged Review of Systems Review of Systems Yes all other systems are reviewed and are negative and Unobtainable due to mental status Mental Status Exam Mental Status Exam Patient Appearance: Appropriate Patient Orientation: Person, Place, Time and Situation Level of Consciousness: Awake and Alert Patient Behavior: Appropriate, Talkative and Good Eye Contact Mood Description: Calm and Apprehensive Affect Description: Flat Patient Cognition Impaired: No Ability to Follow Directions: Good Speech Pattern: Spontaneous Speech Memory Description: Intact Thought Process: Intact Thought Content: positive for Intact Judgement: Good Diagnostics Vital Signs (24Hr): Vital Signs - 24 hr 06/29/23 18:00 06/30/23 08:40 Temperature 97.8 F 96.6 F L Pulse Rate 104 H 98 Respiratory Rate 18 18 Blood Pressure 121/68 114/66 Pulse Oximetry 95 96 Oxygen Delivery Method Room Air Room Air BMI result Body Mass Index 34.6 Labs 06/30/23 07:52 06/30/23 07:52 Labs: Laboratory Results - last 48 hr 06/29/23 06/30/23 06/30/23 08:22 07:52 08:08 WBC 9.2 RBC 4.21 Hgb 11.9 L Hct 36.9 L MCV 87.6 MCH 28.3 MCHC 32.2 RDW 15.2 Plt Count 286 D MPV 11.4 Immature Gran % (Auto) 1.5 H Neut % (Auto) 46.6 Lymph % (Auto) 43.2 H [place] % (Auto) 6.9 Eos % (Auto) 1.5 Baso % (Auto) 0.3 Lymph # (Auto) 4.0 [place] # (Auto) 0.6 Eos # (Auto) 0.1 Baso # (Auto) 0.0 Abs Immat Gran (auto) 0.14 H Absolute Neuts (auto) 4.3 Absolute Nucleated RBC 0.000 Nucleated RBC % (auto) 0.0 Sodium 134 L Potassium 5.0 Chloride 97 Carbon Dioxide 28 Anion Gap 14 BUN 19 H Creatinine 0.62 Estim Creat Clear Calc 101.7 Estimated GFR > 60 POC Glucose 114 111 Random Glucose 113 Calcium 9.3 Total Bilirubin 0.2 AST 12 ALT 12 Alkaline Phosphatase 62 Total Protein 6.9 Albumin 3.9 Valproic Acid 100.8 H Medications Medications Current Medications Acetaminophen (Acetaminophen 325 Mg Tablet) 650 mg PO Q6H PRN PRN Reason: Headache/Pain Mild Scale (1-3) Al Hydroxide/Mg Hydroxide (Magnesium Hydrox/Alum Hydrox 30 Ml Oral.Susp) 30 ml PO Q6H PRN PRN Reason: Heartburn/Nausea Albuterol Sulfate (Albuterol Sulfate 90 Mcg 8 Gm Inhaler) 2 puff INHALE RQ4H PRN PRN Reason: wheeze Benzocaine (Throat Lozenge, Medicated Lozenge) 1 lozenge MUCOUS MEM Q2H PRN PRN Reason: Sore Throat Capsaicin (Capsaicin 0.025% Cream 60 Gm Tube) 1 appl TOPICAL QID PRN; Protocol PRN Reason: Pain, Mild (Pain Scale 1-3) Last Admin: 06/24/23 21:32 Dose: 1 appl Chlorpromazine HCl (Chlorpromazine Hcl 25 Mg Tablet) 25 mg PO Q6H PRN PRN Reason: sx of AH, VH, psychosis Last Admin: 06/23/23 17:42 Dose: 25 mg Clonazepam (Clonazepam 1 Mg Tablet) 1 mg PO BEDTIME LAXMI Last Admin: 06/29/23 22:13 Dose: 1 mg Clonazepam (Clonazepam 0.5 Mg Tablet) 0.5 mg PO DAILY [facility] Last Admin: 06/30/23 08:52 Dose: 0.5 mg Clozapine (Clozapine 25 Mg Tablet) 50 mg PO DAILY [facility] Last Admin: 06/30/23 08:53 Dose: 50 mg Clozapine 300 mg/ Clozapine 25 (mg) 325 mg PO BEDTIME LAXMI Last Admin: 06/29/23 22:10 Dose: 325 mg Dextrose (Dextrose 50 % 25 Gm/50 Ml Syringe) 25 gm IVPUSH Q15M PRN; Protocol PRN Reason: per Hypoglycemia Standing Ord. Diltiazem HCl (Diltiazem Hcl Cd 120 Mg Cap.Er.Deg) 120 mg PO DAILY [facility]; Protocol Last Admin: 06/30/23 08:53 Dose: 120 mg Divalproex Sodium (Divalproex Sodium Er 500 Mg Tab.Er.24h) 1,500 mg PO BEDTIME [facility] Last Admin: 06/29/23 22:13 Dose: 1,500 mg Docusate Sodium (Docusate Sodium 100 Mg Capsule) 100 mg PO BID PRN PRN Reason: Constipation Fluoxetine HCl (Fluoxetine Hcl 10 Mg Capsule) 30 mg PO DAILY [facility] Last Admin: 06/30/23 08:52 Dose: 30 mg Fluticasone Propionate (Fluticasone Propionate 100 Mcg Blst.W.Dev) 2 puff INHALE RBID [facility] Last Admin: 06/30/23 08:54 Dose: 2 puff Glucose (Glucose Gel 15 Gm Gel..Gram.) 15 gm PO Q15M PRN; Protocol PRN Reason: per Hypoglycemia Standing Ord. Hydroxyzine HCl (Hydroxyzine Hcl 25 Mg Tablet) 25 mg PO Q6H PRN PRN Reason: Anxiety Lisinopril (Lisinopril 10 Mg Tablet) 10 mg PO BEDTIME [facility]; Protocol Last Admin: 06/29/23 22:13 Dose: 10 mg Loratadine (Loratadine 10 Mg Tablet) 10 mg PO DAILY [facility] Last Admin: 06/30/23 08:53 Dose: 10 mg Magnesium Hydroxide (Milk Of Magnesia 30 Ml Oral.Susp) 30 ml PO DAILY PRN PRN Reason: Constipation Metformin HCl (Metformin Hcl Er 500 Mg Tab.Er.24h) 500 mg PO BID [facility] Last Admin: 06/30/23 08:53 Dose: 500 mg Montelukast Sodium (Montelukast Sodium 10 Mg Tablet) 10 mg PO DAILY [facility] Last Admin: 06/30/23 08:52 Dose: 10 mg Nicotine (Nicotine 21 Mg Patch.Td24) 21 mg TRANSDERMA DAILY [facility] Last Admin: 06/29/23 10:15 Dose: Not Given Nicotine Polacrilex (Nicotine Polacrilex Lozenge 4 Mg Lozenge) 4 mg BUCCAL Q2H PRN PRN Reason: Nicotine Cravings Omeprazole (Omeprazole 20 Mg Capsule.Dr) 20 mg PO BID@0630,1630 [facility] Last Admin: 06/30/23 06:00 Dose: 20 mg Polyethylene Glycol (Polyethylene Glycol 3350 17 Gm Powd.Pack) 17 gm PO DAILY PRN PRN Reason: constipation Last Admin: 06/29/23 22:24 Dose: 17 gm Senna (Sennosides 8.6 Mg Tablet) 17.2 mg PO BEDTIME PRN PRN Reason: constipation Sucralfate (Sucralfate 1 Gm Tablet) 1 gm PO TID [facility] Last Admin: 06/30/23 08:53 Dose: 1 gm Tramadol HCl (Tramadol Hcl 50 Mg Tablet) 50 mg PO TID PRN PRN Reason: Pain, Moderate Last Admin: 06/30/23 08:57 Dose: 50 mg Allergies Allergies Allergy/AdvReac Type Severity Reaction Status Date / Time diazepam [From Valium] Allergy Unknown Unknown Verified 04/27/23 10:04 haloperidol [From Haldol] Allergy Unknown Unknown Verified 04/27/23 10:04 Penicillins Allergy Unknown Unknown Verified 04/27/23 10:04 risperidone [From Risperdal] Allergy Unknown Unknown Verified 04/27/23 10:04 aspirin [Aspirin] AdvReac Intermediate Vomiting Verified 04/27/23 10:04 trazodone [TRAZODONE] AdvReac Intermediate NAUSEA & Verified 04/27/23 10:04 VOMITING Assessment & Plan Assessment & Plan (1) Schizophrenia: Status: Acute Code(s): F20.9 - Schizophrenia, unspecified Plan 57 yo female, hx of schizophrenia, PTSD, reports to crisis VH, AH, SI due to CAH. Today she refuses to meet with team and prefers to spend time resting in bed. Plan: Continue attempts to connect with pt. Review of previous admits, crisis team reports. Similiar presentations to previous admits with similiar sx. Continue regime Add Chlorpromazine prn 06/23/23 : no changes clozapine and miralax just increased 06/22/23 Capsaicin prn for knee pain Increase Miralax to tid-pt reports constipation and takes this dose at home Increase Prozac from 20 mg daily to 30 mg daily to address reported depressive sx. Increase a.m. Clozapine from 50 mg a.m. to 75 mg a.m. to address CAH Pt asks that her discharge plan include [facility] stay with [facility]. 06/23/23: Consider scheduling more clozapine at night and less in AM 06/24/23: no med changes 06/26/23 continue current regime and plan of care. Discharge planning. 06/27/23 Change dosing of Clozapine to 50 mg a.m. 325 mg hs Discharge planning for respite tentative 07/0206/29/23 Valproate, Clozapine, CBCD, CMP levels Probable respite discharge 07/03. 06/30/23 continue treatmetn plan Reason for continued inpatient stay Substantial Risk for: harm to self and inability to function Time Spent With Patient Time: Total time managing care of this patient today ____ minutes.
[2023-06-30 16:53] VITALS: BP 117/61; PULSE 109; TEMP 35.6; O2SAT 95
[2023-06-30 21:51] VITALS: BP 152/77; PULSE 106
[2023-06-30] MEDS: cloZAPine 300 MG, cloZAPine 25 MG 325 MG PO (21:58)
[2023-06-30] MEDS: lisinopriL 10 MG TABLET PO (21:58)
[2023-06-30] MEDS: clonazePAM 1 MG TABLET PO (21:58)
[2023-06-30] MEDS: Divalproex Sodium ER 500 MG TAB.ER.24H 1500 MG PO (21:58)
[2023-06-30] MEDS: polyethylene glycoL 3350 17 GM POWD.PACK PO (22:06)
[2023-07-01] MEDS: Omeprazole 20 MG CAPSULE.DR PO ×2 (06:05→16:08)
[2023-07-01 08:53] LABS: Glucose, Whole Blood 108 mg/dL (60-115)
[2023-07-01] MEDS: Fluticasone Propionate 100 MCG BLST.W.DEV 2 PUFF INHALE ×2 (09:27→22:32)
[2023-07-01] MEDS: cloZAPine 25 MG TABLET 50 MG PO (09:27)
[2023-07-01] MEDS: Sucralfate 1 GM TABLET PO ×3 (09:32→22:34)
[2023-07-01] MEDS: polyethylene glycoL 3350 17 GM POWD.PACK PO (09:32)
[2023-07-01] MEDS: Loratadine 10 MG TABLET PO (09:32)
[2023-07-01] MEDS: Montelukast Sodium 10 MG TABLET PO (09:32)
[2023-07-01] MEDS: dilTIAZem HCL CD 120 MG CAP.ER.DEG PO (09:32)
[2023-07-01] MEDS: FLUoxetine HCl 10 MG CAPSULE 30 MG PO (09:32)
[2023-07-01] MEDS: clonazePAM 0.5 MG TABLET PO (09:32)
[2023-07-01] MEDS: metFORMIN HCl ER 500 MG TAB.ER.24H PO ×2 (09:33→22:32)
[2023-07-01] MEDS: traMADoL HCL 50 MG TABLET PO ×2 (09:35→22:32)
[2023-07-01 09:39] VITALS: BP 106/61; PULSE 99; RESP 18; TEMP 36.1; O2SAT 95
[2023-07-01 18:00] VITALS: BP 114/68; PULSE 96; TEMP 36.3; O2SAT 95
--- NOTE | 2023-07-01 18:14 | HO.PSYCHPN ---
Subjective Subjective Date of Service: 07/01/23 Reason For Visit: ptsd, schizophrenia Interim History: Pt reports feeling well. No medication SE, no daytime sedation. Pleased with changes thus far. VPA in high therapeutic range; HGB and HCT low but near normal. Pt attending to ADLs and presents with a bright affect. Did not sleep well last night due to peer disruption Medication Compliance: Yes Side effects from medications: No Attending Groups: Yes Review of Systems Acute medical concerns: No Medical Review of Systems: unchanged Review of Systems Review of Systems Yes all other systems are reviewed and are negative and Unobtainable due to mental status Mental Status Exam Mental Status Exam Patient Appearance: Appropriate Patient Orientation: Person, Place, Time and Situation Level of Consciousness: Awake and Alert Patient Behavior: Appropriate, Talkative and Good Eye Contact Mood Description: Calm and Apprehensive Affect Description: Flat Patient Cognition Impaired: No Ability to Follow Directions: Good Speech Pattern: Spontaneous Speech Memory Description: Intact Diagnostics Vital Signs (24Hr): Vital Signs - 24 hr 06/30/23 21:51 07/01/23 09:39 Temperature 97 F Pulse Rate 106 H 99 Respiratory Rate 18 Blood Pressure 152/77 H 106/61 Pulse Oximetry 95 Oxygen Delivery Method Room Air BMI result Body Mass Index 34.6 Labs 06/30/23 07:52 06/30/23 07:52 Labs: Laboratory Results - last 48 hr 06/30/23 06/30/23 07/01/23 07:52 08:08 08:49 WBC 9.2 RBC 4.21 Hgb 11.9 L Hct 36.9 L MCV 87.6 MCH 28.3 MCHC 32.2 RDW 15.2 Plt Count 286 D MPV 11.4 Immature Gran % (Auto) 1.5 H Neut % (Auto) 46.6 Lymph % (Auto) 43.2 H [place] % (Auto) 6.9 Eos % (Auto) 1.5 Baso % (Auto) 0.3 Lymph # (Auto) 4.0 [place] # (Auto) 0.6 Eos # (Auto) 0.1 Baso # (Auto) 0.0 Abs Immat Gran (auto) 0.14 H Absolute Neuts (auto) 4.3 Absolute Nucleated RBC 0.000 Nucleated RBC % (auto) 0.0 Sodium 134 L Potassium 5.0 Chloride 97 Carbon Dioxide 28 Anion Gap 14 BUN 19 H Creatinine 0.62 Estim Creat Clear Calc 101.7 Estimated GFR > 60 POC Glucose 111 108 Random Glucose 113 Calcium 9.3 Total Bilirubin 0.2 AST 12 ALT 12 Alkaline Phosphatase 62 Total Protein 6.9 Albumin 3.9 Valproic Acid 100.8 H Medications Medications Current Medications Acetaminophen (Acetaminophen 325 Mg Tablet) 650 mg PO Q6H PRN PRN Reason: Headache/Pain Mild Scale (1-3) Al Hydroxide/Mg Hydroxide (Magnesium Hydrox/Alum Hydrox 30 Ml Oral.Susp) 30 ml PO Q6H PRN PRN Reason: Heartburn/Nausea Albuterol Sulfate (Albuterol Sulfate 90 Mcg 8 Gm Inhaler) 2 puff INHALE RQ4H PRN PRN Reason: wheeze Benzocaine (Throat Lozenge, Medicated Lozenge) 1 lozenge MUCOUS MEM Q2H PRN PRN Reason: Sore Throat Capsaicin (Capsaicin 0.025% Cream 60 Gm Tube) 1 appl TOPICAL QID PRN; Protocol PRN Reason: Pain, Mild (Pain Scale 1-3) Last Admin: 06/24/23 21:32 Dose: 1 appl Chlorpromazine HCl (Chlorpromazine Hcl 25 Mg Tablet) 25 mg PO Q6H PRN PRN Reason: sx of AH, VH, psychosis Last Admin: 06/23/23 17:42 Dose: 25 mg Clonazepam (Clonazepam 1 Mg Tablet) 1 mg PO BEDTIME LAXMI Last Admin: 06/30/23 21:58 Dose: 1 mg Clonazepam (Clonazepam 0.5 Mg Tablet) 0.5 mg PO DAILY LAXMI Last Admin: 07/01/23 09:32 Dose: 0.5 mg Clozapine (Clozapine 25 Mg Tablet) 50 mg PO DAILY LAXMI Last Admin: 07/01/23 09:27 Dose: 50 mg Clozapine 300 mg/ Clozapine 25 (mg) 325 mg PO BEDTIME LAXMI Last Admin: 06/30/23 21:58 Dose: 325 mg Dextrose (Dextrose 50 % 25 Gm/50 Ml Syringe) 25 gm IVPUSH Q15M PRN; Protocol PRN Reason: per Hypoglycemia Standing Ord. Diltiazem HCl (Diltiazem Hcl Cd 120 Mg Cap.Er.Deg) 120 mg PO DAILY LAXMI; Protocol Last Admin: 07/01/23 09:32 Dose: 120 mg Divalproex Sodium (Divalproex Sodium Er 500 Mg Tab.Er.24h) 1,500 mg PO BEDTIME [facility] Last Admin: 06/30/23 21:58 Dose: 1,500 mg Docusate Sodium (Docusate Sodium 100 Mg Capsule) 100 mg PO BID PRN PRN Reason: Constipation Fluoxetine HCl (Fluoxetine Hcl 10 Mg Capsule) 30 mg PO DAILY [facility] Last Admin: 07/01/23 09:32 Dose: 30 mg Fluticasone Propionate (Fluticasone Propionate 100 Mcg Blst.W.Dev) 2 puff INHALE RBID [facility] Last Admin: 07/01/23 09:27 Dose: 2 puff Glucose (Glucose Gel 15 Gm Gel..Gram.) 15 gm PO Q15M PRN; Protocol PRN Reason: per Hypoglycemia Standing Ord. Hydroxyzine HCl (Hydroxyzine Hcl 25 Mg Tablet) 25 mg PO Q6H PRN PRN Reason: Anxiety Lisinopril (Lisinopril 10 Mg Tablet) 10 mg PO BEDTIME [facility]; Protocol Last Admin: 06/30/23 21:58 Dose: 10 mg Loratadine (Loratadine 10 Mg Tablet) 10 mg PO DAILY [facility] Last Admin: 07/01/23 09:32 Dose: 10 mg Magnesium Hydroxide (Milk Of Magnesia 30 Ml Oral.Susp) 30 ml PO DAILY PRN PRN Reason: Constipation Metformin HCl (Metformin Hcl Er 500 Mg Tab.Er.24h) 500 mg PO BID [facility] Last Admin: 07/01/23 09:33 Dose: 500 mg Montelukast Sodium (Montelukast Sodium 10 Mg Tablet) 10 mg PO DAILY [facility] Last Admin: 07/01/23 09:32 Dose: 10 mg Nicotine (Nicotine 21 Mg Patch.Td24) 21 mg TRANSDERMA DAILY [facility] Last Admin: 07/01/23 09:39 Dose: Not Given Nicotine Polacrilex (Nicotine Polacrilex Lozenge 4 Mg Lozenge) 4 mg BUCCAL Q2H PRN PRN Reason: Nicotine Cravings Omeprazole (Omeprazole 20 Mg Capsule.Dr) 20 mg PO BID@0630,1630 [facility] Last Admin: 07/01/23 16:08 Dose: 20 mg Polyethylene Glycol (Polyethylene Glycol 3350 17 Gm Powd.Pack) 17 gm PO DAILY PRN PRN Reason: constipation Last Admin: 07/01/23 09:32 Dose: 17 gm Senna (Sennosides 8.6 Mg Tablet) 17.2 mg PO BEDTIME PRN PRN Reason: constipation Sucralfate (Sucralfate 1 Gm Tablet) 1 gm PO TID LAXMI Last Admin: 07/01/23 14:03 Dose: 1 gm Tramadol HCl (Tramadol Hcl 50 Mg Tablet) 50 mg PO TID PRN PRN Reason: Pain, Moderate Last Admin: 07/01/23 09:35 Dose: 50 mg Allergies Allergies Allergy/AdvReac Type Severity Reaction Status Date / Time diazepam [From Valium] Allergy Unknown Unknown Verified 04/27/23 10:04 haloperidol [From Haldol] Allergy Unknown Unknown Verified 04/27/23 10:04 Penicillins Allergy Unknown Unknown Verified 04/27/23 10:04 risperidone [From Risperdal] Allergy Unknown Unknown Verified 04/27/23 10:04 aspirin [Aspirin] AdvReac Intermediate Vomiting Verified 04/27/23 10:04 trazodone [TRAZODONE] AdvReac Intermediate NAUSEA & Verified 04/27/23 10:04 VOMITING Assessment & Plan Assessment & Plan (1) Schizophrenia: Status: Acute Code(s): F20.9 - Schizophrenia, unspecified Plan 57 yo female, hx of schizophrenia, PTSD, reports to crisis VH, AH, SI due to CAH. Today she refuses to meet with team and prefers to spend time resting in bed. Plan: Continue attempts to connect with pt. Review of previous admits, crisis team reports. Similiar presentations to previous admits with similiar sx. Continue regime Add Chlorpromazine prn 06/23/23 : no changes clozapine and miralax just increased 06/22/23 Capsaicin prn for knee pain Increase Miralax to tid-pt reports constipation and takes this dose at home Increase Prozac from 20 mg daily to 30 mg daily to address reported depressive sx. Increase a.m. Clozapine from 50 mg a.m. to 75 mg a.m. to address CAH Pt asks that her discharge plan include a stay with [facility]. 06/23/23: Consider scheduling more clozapine at night and less in AM 06/24/23: no med changes 06/26/23 continue current regime and plan of care. Discharge planning. 06/27/23 Change dosing of Clozapine to 50 mg a.m. 325 mg hs Discharge planning for respite tentative 07/0206/29/23 Valproate, Clozapine, CBCD, CMP levels Probable respite discharge 07/03. 06/30/23 continue treatmetn plan 07/01/23 continue tx paln Reason for continued inpatient stay Substantial Risk for: harm to self Time Spent With Patient Time: Total time managing care of this patient today ____ minutes.
[2023-07-01] MEDS: lisinopriL 10 MG TABLET PO (22:33)
[2023-07-01] MEDS: Divalproex Sodium ER 500 MG TAB.ER.24H 1500 MG PO (22:33)
[2023-07-01] MEDS: clonazePAM 1 MG TABLET PO (22:33)
[2023-07-01] MEDS: cloZAPine 300 MG, cloZAPine 25 MG 325 MG PO (22:33)
[2023-07-02] MEDS: Omeprazole 20 MG CAPSULE.DR PO ×2 (05:55→16:16)
[2023-07-02 08:20] VITALS: BP 133/67; PULSE 96; RESP 16; TEMP 36.1; O2SAT 93
[2023-07-02 08:27] LABS: Glucose, Whole Blood 104 mg/dL (60-115)
[2023-07-02] MEDS: FLUoxetine HCl 10 MG CAPSULE 30 MG PO (08:50)
[2023-07-02] MEDS: Loratadine 10 MG TABLET PO (08:50)
[2023-07-02] MEDS: cloZAPine 25 MG TABLET 50 MG PO (08:50)
[2023-07-02] MEDS: dilTIAZem HCL CD 120 MG CAP.ER.DEG PO (08:50)
[2023-07-02] MEDS: Sucralfate 1 GM TABLET PO ×3 (08:50→21:39)
[2023-07-02] MEDS: metFORMIN HCl ER 500 MG TAB.ER.24H PO ×2 (08:50→21:38)
[2023-07-02] MEDS: Fluticasone Propionate 100 MCG BLST.W.DEV 2 PUFF INHALE (08:51)
[2023-07-02] MEDS: clonazePAM 0.5 MG TABLET PO (08:51)
[2023-07-02] MEDS: Montelukast Sodium 10 MG TABLET PO (08:51)
[2023-07-02] MEDS: traMADoL HCL 50 MG TABLET PO ×2 (09:00→21:49)
[2023-07-02 09:12] LABS: Neut%MD 44.3 %; Neutrophils Absolute Auto 4.2 x10*3/uL (2.0-8.3); WBCANC 9.4 X10*3/uL
--- NOTE | 2023-07-02 14:22 | P.PNPSI_ITS ---
Subjective Subjective Date of Service: 07/02/23 Reason For Visit: ptsd, schizophrenia Subjective Notes: Conditional Voluntary Healthcare Proxy: No Guardianship: No Medical Problems Affecting Mental Status: No Interim History: Team report pt has decided to return home directly and not transition via respite. Difficult weekend as room-mate experienced agitation and kept pt awake. Today, pt participating in Dining [employer]. When we met she reports no SI, HI. Denies auditory or visual perceptual alterations and reports she feels prepared to return to her foster mother's home and is looking forward to this. She believes her experience has been a success and sends her love to the team for helping her to feel better she reports. Medication Compliance: Yes Side effects from medications: No Attending Groups: Yes Review of Systems Acute medical concerns: No Medical Review of Systems: unchanged Review of Systems Review of Systems Yes all other systems are reviewed and are negative and Unobtainable due to mental status Mental Status Exam Mental Status Exam Patient Appearance: Appropriate Patient Orientation: Person, Place, Time and Situation Level of Consciousness: Alert Patient Behavior: Appropriate, Talkative, Cooperative and Good Eye Contact Mood Description: Appropriate Affect Description: Appropriate Patient Cognition Impaired: No Ability to Follow Directions: Good Speech Pattern: Spontaneous Speech Memory Description: Intact Hallucinations: None Delusions: Not Present Thought Process: Intact Thought Content: positive for Intact Depressive Symptoms: Diff. Making Decisions, Difficulty Sleeping, Loss of Int. in Activity, Feelings of Worthlessness, Hopelessness, Feelings of Guilt, Unhappiness, Increased Fatigue, Low Self Esteem and Loss of Energy Judgement: Good Diagnostics Vital Signs (24Hr): Vital Signs - 24 hr 07/01/23 18:00 07/02/23 08:20 Temperature 97.3 F 96.9 F Pulse Rate 96 96 Respiratory Rate 16 Blood Pressure 114/68 133/67 Pulse Oximetry 95 93 Oxygen Delivery Method Room Air Room Air BMI result Body Mass Index 34.6 Labs 06/30/23 07:52 06/30/23 07:52 Labs: Laboratory Results - last 48 hr 07/01/23 07/02/23 07/02/23 08:49 08:23 08:37 Absolute Neuts (auto) 4.2 POC Glucose 108 104 Medications Medications Current Medications Acetaminophen (Acetaminophen 325 Mg Tablet) 650 mg PO Q6H PRN PRN Reason: Headache/Pain Mild Scale (1-3) Al Hydroxide/Mg Hydroxide (Magnesium Hydrox/Alum Hydrox 30 Ml Oral.Susp) 30 ml PO Q6H PRN PRN Reason: Heartburn/Nausea Albuterol Sulfate (Albuterol Sulfate 90 Mcg 8 Gm Inhaler) 2 puff INHALE RQ4H PRN PRN Reason: wheeze Benzocaine (Throat Lozenge, Medicated Lozenge) 1 lozenge MUCOUS MEM Q2H PRN PRN Reason: Sore Throat Capsaicin (Capsaicin 0.025% Cream 60 Gm Tube) 1 appl TOPICAL QID PRN; Protocol PRN Reason: Pain, Mild (Pain Scale 1-3) Last Admin: 06/24/23 21:32 Dose: 1 appl Chlorpromazine HCl (Chlorpromazine Hcl 25 Mg Tablet) 25 mg PO Q6H PRN PRN Reason: sx of AH, VH, psychosis Last Admin: 06/23/23 17:42 Dose: 25 mg Clonazepam (Clonazepam 1 Mg Tablet) 1 mg PO BEDTIME LAXMI Last Admin: 07/01/23 22:33 Dose: 1 mg Clonazepam (Clonazepam 0.5 Mg Tablet) 0.5 mg PO DAILY LAXMI Last Admin: 07/02/23 08:51 Dose: 0.5 mg Clozapine (Clozapine 25 Mg Tablet) 50 mg PO DAILY LAXMI Last Admin: 07/02/23 08:50 Dose: 50 mg Clozapine 300 mg/ Clozapine 25 (mg) 325 mg PO BEDTIME LAXMI Last Admin: 07/01/23 22:33 Dose: 325 mg Dextrose (Dextrose 50 % 25 Gm/50 Ml Syringe) 25 gm IVPUSH Q15M PRN; Protocol PRN Reason: per Hypoglycemia Standing Ord. Diltiazem HCl (Diltiazem Hcl Cd 120 Mg Cap.Er.Deg) 120 mg PO DAILY [facility]XMI; Protocol Last Admin: 07/02/23 08:50 Dose: 120 mg Divalproex Sodium (Divalproex Sodium Er 500 Mg Tab.Er.24h) 1,500 mg PO BEDTIME LAXMI Last Admin: 07/01/23 22:33 Dose: 1,500 mg Docusate Sodium (Docusate Sodium 100 Mg Capsule) 100 mg PO BID PRN PRN Reason: Constipation Fluoxetine HCl (Fluoxetine Hcl 10 Mg Capsule) 30 mg PO DAILY LAXMI Last Admin: 07/02/23 08:50 Dose: 30 mg Fluticasone Propionate (Fluticasone Propionate 100 Mcg Blst.W.Dev) 2 puff INHALE RBID [facility] Last Admin: 07/02/23 08:51 Dose: 2 puff Glucose (Glucose Gel 15 Gm Gel..Gram.) 15 gm PO Q15M PRN; Protocol PRN Reason: per Hypoglycemia Standing Ord. Hydroxyzine HCl (Hydroxyzine Hcl 25 Mg Tablet) 25 mg PO Q6H PRN PRN Reason: Anxiety Lisinopril (Lisinopril 10 Mg Tablet) 10 mg PO BEDTIME [facility]; Protocol Last Admin: 07/01/23 22:33 Dose: 10 mg Loratadine (Loratadine 10 Mg Tablet) 10 mg PO DAILY [facility] Last Admin: 07/02/23 08:50 Dose: 10 mg Magnesium Hydroxide (Milk Of Magnesia 30 Ml Oral.Susp) 30 ml PO DAILY PRN PRN Reason: Constipation Metformin HCl (Metformin Hcl Er 500 Mg Tab.Er.24h) 500 mg PO BID [facility] Last Admin: 07/02/23 08:50 Dose: 500 mg Montelukast Sodium (Montelukast Sodium 10 Mg Tablet) 10 mg PO DAILY [facility] Last Admin: 07/02/23 08:51 Dose: 10 mg Nicotine (Nicotine 21 Mg Patch.Td24) 21 mg TRANSDERMA DAILY [facility] Last Admin: 07/02/23 09:01 Dose: Not Given Nicotine Polacrilex (Nicotine Polacrilex Lozenge 4 Mg Lozenge) 4 mg BUCCAL Q2H PRN PRN Reason: Nicotine Cravings Omeprazole (Omeprazole 20 Mg Capsule.Dr) 20 mg PO BID@0630,1630 [facility] Last Admin: 07/02/23 05:55 Dose: 20 mg Polyethylene Glycol (Polyethylene Glycol 3350 17 Gm Powd.Pack) 17 gm PO DAILY PRN PRN Reason: constipation Last Admin: 07/01/23 09:32 Dose: 17 gm Senna (Sennosides 8.6 Mg Tablet) 17.2 mg PO BEDTIME PRN PRN Reason: constipation Sucralfate (Sucralfate 1 Gm Tablet) 1 gm PO TID [facility] Last Admin: 07/02/23 14:21 Dose: 1 gm Tramadol HCl (Tramadol Hcl 50 Mg Tablet) 50 mg PO TID PRN PRN Reason: Pain, Moderate Last Admin: 07/02/23 09:00 Dose: 50 mg Allergies Allergies Allergy/AdvReac Type Severity Reaction Status Date / Time diazepam [From Valium] Allergy Unknown Unknown Verified 04/27/23 10:04 haloperidol [From Haldol] Allergy Unknown Unknown Verified 04/27/23 10:04 Penicillins Allergy Unknown Unknown Verified 04/27/23 10:04 risperidone [From Risperdal] Allergy Unknown Unknown Verified 04/27/23 10:04 aspirin [Aspirin] AdvReac Intermediate Vomiting Verified 04/27/23 10:04 trazodone [TRAZODONE] AdvReac Intermediate NAUSEA & Verified 04/27/23 10:04 VOMITING Assessment & Plan Assessment & Plan (1) Schizophrenia: Status: Acute Code(s): F20.9 - Schizophrenia, unspecified Plan 57 yo female, hx of schizophrenia, PTSD, reports to crisis VH, AH, SI due to CAH. Today she refuses to meet with team and prefers to spend time resting in bed. Plan: Continue attempts to connect with pt. Review of previous admits, crisis team reports. Similiar presentations to previous admits with similiar sx. Continue regime Add Chlorpromazine prn 06/23/23 : no changes clozapine and miralax just increased 06/22/23 Capsaicin prn for knee pain Increase Miralax to tid-pt reports constipation and takes this dose at home Increase Prozac from 20 mg daily to 30 mg daily to address reported depressive sx. Increase a.m. Clozapine from 50 mg a.m. to 75 mg a.m. to address CAH Pt asks that her discharge plan include [facility] stay with [facility]. 06/23/23: Consider scheduling more clozapine at night and less in AM 06/24/23: no med changes 06/26/23 continue current regime and plan of care. Discharge planning. 06/27/23 Change dosing of Clozapine to 50 mg a.m. 325 mg hs Discharge planning for respite tentative 07/0206/29/23 Valproate, Clozapine, CBCD, CMP levels Probable respite discharge 07/03. 06/30/23 continue treatmetn plan 07/01/23 continue tx paln 07/02/23 discharge 07/03 to home. BMP (Na low 06/30-134) Decrease Valproate to 1250 mg HS (level 100.8 06/30) Patient educated on: therapeutic strategies Informed Consent: understands Reason for continued inpatient stay Substantial Risk for: rapid decompensation Time Spent With Patient Time: Total time managing care of this patient today ____ minutes.
[2023-07-02 16:55] VITALS: BP 114/66; PULSE 96; RESP 16; TEMP 36.2; O2SAT 97
[2023-07-02] MEDS: clonazePAM 1 MG TABLET PO (21:39)
[2023-07-02] MEDS: cloZAPine 300 MG, cloZAPine 25 MG 325 MG PO (21:39)
[2023-07-02] MEDS: Divalproex Sodium ER 250 MG TAB.ER.24H 1250 MG PO (21:39)
[2023-07-02] MEDS: lisinopriL 10 MG TABLET PO (21:39)
[2023-07-03] MEDS: Omeprazole 20 MG CAPSULE.DR PO (05:27)
[2023-07-03 08:00] VITALS: BP 110/61; PULSE 102; RESP 16; TEMP 36.6; O2SAT 97
[2023-07-03 08:41] LABS: Anion Gap 16 (12-20); Blood Urea Nitrogen 19 mg/dL (9-16); Calcium 9.7 mg/dL (8.4-10.2); Carbon Dioxide 26 mmol/L (22-29); Chloride 100 mmol/L (96-108); Creatinine Clr Calc Pharmacy 92.7; Estimated Glomerular Filt Rate > 60; Glucose Random 119 mg/dL (60-115); Potassium 4.8 mmol/L (3.3-5.1); Sodium 137 mmol/L (135-145)
[2023-07-03] MEDS: cloZAPine 25 MG TABLET 50 MG PO (08:56)
[2023-07-03] MEDS: Fluticasone Propionate 100 MCG BLST.W.DEV 2 PUFF INHALE (08:56)
[2023-07-03] MEDS: dilTIAZem HCL CD 120 MG CAP.ER.DEG PO (08:57)
[2023-07-03] MEDS: metFORMIN HCl ER 500 MG TAB.ER.24H PO (08:57)
[2023-07-03] MEDS: Montelukast Sodium 10 MG TABLET PO (08:57)
[2023-07-03] MEDS: clonazePAM 0.5 MG TABLET PO (08:57)
[2023-07-03] MEDS: FLUoxetine HCl 10 MG CAPSULE 30 MG PO (08:57)
[2023-07-03] MEDS: Loratadine 10 MG TABLET PO (08:57)
[2023-07-03] MEDS: Sucralfate 1 GM TABLET PO (08:57)
[2023-07-03] MEDS: traMADoL HCL 50 MG TABLET PO (09:15)
--- NOTE | 2023-07-03 15:13 | P.DS_ITS ---
DS: Providers Provider Date of Service: 07/03/23 Date of admission: 06/20/23 14:47 Date of discharge: 07/03/23 Primary care physician: Brenna Brower MD Admitting clinician: Tiffany Alejandra Attending physician on admission: Taiwo Leung Attending physician on discharge: Taiwo Leung Discharging clinician: Tiffany Alejandra DS: Diagnosis Discharge Diagnosis (1) Schizophrenia: Status: Acute DS: Medications Discharge Medications Home Medications: Home Medications Medication Instructions Recorded Confirmed sennosides 8.6 mg tablet (senna) 17.2 mg PO BEDTIME PRN constipation 12/13/22 06/18/23 albuterol sulfate 2.5 mg/3 mL 2.5 mg inhalation Q4H PRN wheezing 06/18/23 06/18/23 (0.083 %) solution for nebulization albuterol sulfate 90 mcg/actuation 2 puff inhalation Q4-6H PRN 06/18/23 06/18/23 aerosol inhaler (Ventolin HFA) Shortness Of Breath Or Wheezing fluticasone propionate 110 2 puff inhalation BID 06/18/23 06/18/23 mcg/actuation HFA aerosol inhaler (Flovent HFA) sucralfate 1 gram tablet 1 g PO TID 06/18/23 06/18/23 tramadol 50 mg tablet 50 mg PO TID PRN Pain, Moderate 06/18/23 06/18/23 Previous Rx's Medication Instructions Recorded magnesium hydroxide 400 mg/5 mL 400 mg (5 mL) PO BEDTIME PRN 12/15/22 oral suspension (Milk of Magnesia) constipation #355 mL polyethylene glycol 3350 17 17 g PO DAILY constipation #510 12/15/22 gram/dose oral powder (Miralax) grams capsaicin 0.025 % topical cream 1 appl topical QID PRN Pain, Mild 07/02/23 (Pain Scale 1-3) #100 applicators clonazepam 0.5 mg tablet 0.5 mg PO QAM #30 tabs 07/02/23 clonazepam 1 mg tablet 1 mg PO BEDTIME #30 tabs 07/02/23 clozapine 100 mg tablet 300 mg (3 x 100 mg) PO BEDTIME #90 07/02/23 tabs clozapine 25 mg tablet 325 mg (13 x 25 mg) PO BEDTIME #30 07/02/23 tabs clozapine 50 mg tablet 50 mg PO QAM #30 tabs 07/02/23 diltiazem HCl 120 mg 120 mg PO DAILY #30 caps 07/02/23 capsule,extended release 24 hr divalproex 250 mg tablet,extended 1,250 mg (5 x 250 mg) PO BEDTIME 07/02/23 release 24 hr #150 tabs docusate sodium 100 mg capsule 100 mg PO BID PRN Constipation #60 07/02/23 caps fluoxetine 10 mg capsule 30 mg (3 x 10 mg) PO DAILY #90 caps 07/02/23 lisinopril 10 mg tablet 10 mg PO QPM #30 tabs 07/02/23 loratadine 10 mg tablet 10 mg PO DAILY #30 tabs 07/02/23 metformin 500 mg tablet,extended 500 mg PO BID #60 tabs 07/02/23 release 24 hr montelukast 10 mg tablet 10 mg PO DAILY #30 tabs 07/02/23 omeprazole 20 mg capsule,delayed 20 mg PO BID #60 caps 07/02/23 release Mental Status Exam Mental Status Exam Patient Appearance: Appropriate Patient Orientation: Person, Place, Time and Situation Level of Consciousness: Alert Patient Behavior: Appropriate, Talkative, Cooperative and Good Eye Contact Mood Description: Appropriate Affect Description: Appropriate Patient Cognition Impaired: No Ability to Follow Directions: Good Speech Pattern: Spontaneous Speech Memory Description: Intact Hallucinations: None Delusions: Not Present Thought Process: Intact Thought Content: positive for Intact Depressive Symptoms: Diff. Making Decisions, Loss of Int. in Activity and Low Self Esteem Judgement: Good Data Data Completed and Pending Completed studies during hospitalization [Text1]: 06/27/23 06/27/23 06/28/23 08:09 08:12 08:15 WBC RBC Hgb Hct MCV MCH MCHC RDW Plt Count MPV Immature Gran % (Auto) Neut % (Auto) Lymph % (Auto) [place] % (Auto) Eos % (Auto) Baso % (Auto) Lymph # (Auto) [place] # (Auto) Eos # (Auto) Baso # (Auto) Abs Immat Gran (auto) Absolute Neuts (auto) Absolute Nucleated RBC Nucleated RBC % (auto) Sodium Potassium Chloride Carbon Dioxide Anion Gap BUN Creatinine 0.65 Estim Creat Clear Calc 97.0 Estimated GFR > 60 POC Glucose 106 126 H Random Glucose Calcium Total Bilirubin AST ALT Alkaline Phosphatase Total Protein Albumin Valproic Acid Clozapine Norclozapine 06/29/23 06/30/23 06/30/23 08:22 07:52 08:08 WBC 9.2 RBC 4.21 Hgb 11.9 L Hct 36.9 L MCV 87.6 MCH 28.3 MCHC 32.2 RDW 15.2 Plt Count 286 D MPV 11.4 Immature Gran % (Auto) 1.5 H Neut % (Auto) 46.6 Lymph % (Auto) 43.2 H [place] % (Auto) 6.9 Eos % (Auto) 1.5 Baso % (Auto) 0.3 Lymph # (Auto) 4.0 [place] # (Auto) 0.6 Eos # (Auto) 0.1 Baso # (Auto) 0.0 Abs Immat Gran (auto) 0.14 H Absolute Neuts (auto) 4.3 Absolute Nucleated RBC 0.000 Nucleated RBC % (auto) 0.0 Sodium 134 L Potassium 5.0 Chloride 97 Carbon Dioxide 28 Anion Gap 14 BUN 19 H Creatinine 0.62 Estim Creat Clear Calc 101.7 Estimated GFR > 60 POC Glucose 114 111 Random Glucose 113 Calcium 9.3 Total Bilirubin 0.2 AST 12 ALT 12 Alkaline Phosphatase 62 Total Protein 6.9 Albumin 3.9 Valproic Acid 100.8 H Clozapine Pending Norclozapine Pending 07/01/23 07/02/23 07/02/23 08:49 08:23 08:37 WBC RBC Hgb Hct MCV MCH MCHC RDW Plt Count MPV Immature Gran % (Auto) Neut % (Auto) Lymph % (Auto) [place] % (Auto) Eos % (Auto) Baso % (Auto) Lymph # (Auto) [place] # (Auto) Eos # (Auto) Baso # (Auto) Abs Immat Gran (auto) Absolute Neuts (auto) 4.2 Absolute Nucleated RBC Nucleated RBC % (auto) Sodium Potassium Chloride Carbon Dioxide Anion Gap BUN Creatinine Estim Creat Clear Calc Estimated GFR POC Glucose 108 104 Random Glucose Calcium Total Bilirubin AST ALT Alkaline Phosphatase Total Protein Albumin Valproic Acid Clozapine Norclozapine 07/03/23 08:04 WBC RBC Hgb Hct MCV MCH MCHC RDW Plt Count MPV Immature Gran % (Auto) Neut % (Auto) Lymph % (Auto) [place] % (Auto) Eos % (Auto) Baso % (Auto) Lymph # (Auto) [place] # (Auto) Eos # (Auto) Baso # (Auto) Abs Immat Gran (auto) Absolute Neuts (auto) Absolute Nucleated RBC Nucleated RBC % (auto) Sodium 137 Potassium 4.8 Chloride 100 Carbon Dioxide 26 Anion Gap 16 BUN 19 H Creatinine 0.68 Estim Creat Clear Calc 92.7 Estimated GFR > 60 POC Glucose Random Glucose 119 H Calcium 9.7 Total Bilirubin AST ALT Alkaline Phosphatase Total Protein Albumin Valproic Acid Clozapine Norclozapine DS: Summary Hospital Course Hospital Course: Pt admitted to adult psychiatry for exacerbation of PTSD, Schizophrenia. Pt reported experiencing auditory perceptual alterations to cut herself, visual perceptual alteration of snakes and SIBS-head banging. Precipitant appears to be upcoming holiday season and missing family members. Medications were reviewed and adjusted with Brenna. Brenna found support in the milieu and with the team. Symptoms improved and she was able to return to her home with caring providers. She will continue with her [facility] out patient team and [facility]S Team. Time spent discussing smoking cessation with patient: 3 to 10 minutes Status at Discharge Functional status at discharge: independent ambulation Overall status at discharge: patient is progressing back to baseline Time Spent with Patient Time attestation: Total time managing care of this patient today ____ minutes. Time spent: Greater than 30 minutes Discharge Plan Discharge Anticipated Discharge Date/Time: 07/03/23 12:00 Patient Disposition: Home, Self-Care Discharge Diagnosis: Schizophrenia Referrals: Psych Prescriber: Zhao Cardenas ([facility]) [Other] - 08/01/23 2:00 pm ACCS Clinician: Alessia ([facility] [employer]) [Other] - 1 Week (Alessia can be reached at Ext. [phone]. Call as needed; Alessia will follow up with you as well. ) [facility] Therapy Intake sy Mary [Other] - 07/07/23 12:00 pm Brenna Liriano MD [Primary Care Provider] - 07/10/23 10:45 am (in office) Discharge Medications: New fluoxetine 10 mg Capsule 30 mg PO DAILY Qty: 90 0RF clozapine 25 mg Tablet 325 mg PO BEDTIME Qty: 30 0RF capsaicin 0.025 % Cream 1 appl topical QID PRN (Reason: Pain, Mild (Pain Scale 1-3)) Qty: 100 0RF Protocol: Apply to: Apply to: knees clozapine 100 mg tablet 300 mg PO BEDTIME Qty: 90 0RF Rx Instructions: 325 mg at bedtime Continued albuterol sulfate [Ventolin HFA] 90 mcg/actuation HFA aerosol inhaler 2 puff INHALATION Q4-6H PRN (Reason: Shortness Of Breath Or Wheezing) sucralfate 1 gram tablet 1 g PO TID tramadol 50 mg tablet 50 mg PO TID PRN (Reason: Pain, Moderate) albuterol sulfate 2.5 mg /3 mL (0.083 %) solution for nebulization 2.5 mg inhalation Q4H PRN (Reason: wheezing) fluticasone propionate [Flovent HFA] 110 mcg/actuation HFA aerosol inhaler 2 puff INHALATION BID clonazepam 0.5 mg tablet 0.5 mg PO QAM Qty: 30 0RF clonazepam 1 mg tablet 1 mg PO BEDTIME Qty: 30 0RF lisinopril 10 mg tablet 10 mg PO QPM Qty: 30 0RF docusate sodium 100 mg capsule 100 mg PO BID PRN (Reason: Constipation) Qty: 60 0RF omeprazole 20 mg capsule,delayed release(DR/EC) 20 mg PO BID Qty: 60 0RF diltiazem HCl 120 mg capsule,extended release 24hr 120 mg PO DAILY Qty: 30 0RF montelukast 10 mg tablet 10 mg PO DAILY Qty: 30 0RF metformin 500 mg tablet extended release 24 hr 500 mg PO BID Qty: 60 0RF loratadine 10 mg tablet 10 mg PO DAILY Qty: 30 0RF clozapine 50 mg tablet 50 mg PO QAM Qty: 30 0RF sennosides [senna] 8.6 mg tablet 17.2 mg PO BEDTIME PRN (Reason: constipation) magnesium hydroxide [Milk of Magnesia] 400 mg/5 mL suspension 400 mg PO BEDTIME PRN (Reason: constipation) Qty: 355 0RF Discontinued clozapine 100 mg tablet 300 mg PO BEDTIME divalproex 500 mg tablet extended release 24 hr 1,500 mg PO BEDTIME fluoxetine 20 mg capsule 20 mg PO QAM No Action divalproex 500 mg tablet extended release 24 hr 1,000 mg PO QPM polyethylene glycol 3350 17 gram powder in packet 17 g PO TID PRN peg-electrolyte soln 420 gram recon soln 240 ml PO Q10M Qty: 4000 0RF Rx Instructions: until fecal effluent is clear; do not exceed a total volume of 4,000 mL ondansetron 4 mg tablet,disintegrating 4 mg PO Q8H PRN (Reason: nausea and vomiting) Qty: 7 0RF Discharge Orders: Discharge Order (Routine); Ordered 07/03/23 Ordered By: Tiffany Alejandra Diet: Advance to usual diet Activity on Discharge: As tolerated Stand Alone Forms: Patient Portal Discharge page, Community Support Care Plan Goals: Mood and Behavioral Stabilization Health Concerns: Mood and Behavioral Stabilization Plan of Treatment: Attend scheduled appointments Take medications as directed Assessment: Scheduled discharge Patient Instructions: Schizophrenia (ED) Discharge Date/Time: 07/03/23 11:10
[2023-07-05 02:49] LABS: Clozapine (Clozaril) 891 mcg/L; Norclozapine 240 mcg/L (25-400)
== END 2023-07-03 11:10 | disposition home or self-care (01) | DRG 750 ==
LOC: HO.ED 06-20 07:04 → HO.PM5 06-20 14:59
PROVIDERS: Internal Medicine; Psychiatry & Neurology Psychiatry; Admitting Provider Clinical Nurse Specialist Psychiatric/Mental Health, Adult; Emergency Provider Emergency Medicine Emergency Medical Services; PCP Internal Medicine; Visit Provider Clinical Nurse Specialist Psychiatric/Mental Health, Adult
DX: F20.9 Schizophrenia, unspecified (principal); E11.9 Type 2 diabetes mellitus without complications; F43.10 Post-traumatic stress disorder, unspecified; I10 Essential (primary) hypertension; F17.210 Nicotine dependence, cigarettes, uncomplicated; Z71.6 Tobacco abuse counseling; Z20.822 Contact with and (suspected) exposure to COVID-19; Z62.810 Personal history of physical and sexual abuse in childhood; Z79.899 Other long term (current) drug therapy
CPT/HCPCS: 36415; 80048; 80053; 80061; 80159; 80164; 80307; 81001; 82565; 82607; 82746; 82947; 83036; 83735; 84439; 84443; 85025; 85048; 87635; 93005; 99285; S9485

== ENCOUNTER → 2023-06-20 14:47 | Outpatient (BNV) | payer OTHER, SELFPAY | PROVIDERS: Admitting Provider Clinical Nurse Specialist Psychiatric/Mental Health, Adult; Emergency Provider Emergency Medicine Emergency Medical Services; PCP Internal Medicine; Visit Provider Clinical Nurse Specialist Psychiatric/Mental Health, Adult | DX: F20.89 Other schizophrenia (principal) | CPT/HCPCS: 99231; 99232 ==

== ENCOUNTER 2023-07-10 10:18 | Outpatient (REF) | payer MEDICAID, SELFPAY ==
[2023-07-10 10:39] LABS: MANUAL DIFF FLAG NO
[2023-07-10 11:11] LABS: Basophils Percent Auto 0.2 % (0-2); Eosinophils Absolute Auto 0.1 X10*3/uL (0.0-0.4); Eosinophils Percent Auto 1.2 % (0-4); Hematocrit 32.4 % (37.0-47.0); Hemoglobin 10.3 g/dl (12.0-16.0); Imm Gran Abs Auto 0.04 X10*3/uL (0.00-0.03); Imm Gran Pct Auto 0.4 % (0.0-0.4); Lymphocytes Absolute Auto 2.4 X10*3/uL (1.2-4.9); Lymphocytes Percent Auto 26.5 % (20-40); Mean Corpuscular HGB Conc 31.8 g/dl (31.0-35.0); Mean Corpuscular Hemoglobin 28.5 pg (27.0-33.0); Mean Corpuscular Volume 89.5 fL (80.0-98.0); Mean Platelet Volume 11.6 fL (9.4-12.3); Monocytes Absolute Auto 0.6 X10*3/uL (0.1-1.2); Monocytes Percent Auto 6.8 % (2-11); Neutrophils Absolute Auto 5.9 x10*3/uL (2.0-8.3); Neutrophils Percent Auto 64.9 % (45-73); Platelet Count 317 X10*3/uL (160-400); Red Blood Count 3.62 X10*6/uL (4.20-5.50); Red Cell Distribution Width 15.4 % (11.0-16.0); White Blood Count 9.1 X10*3/uL (4.8-10.8)
== END 2023-07-10 10:19 | disposition home or self-care (01) ==
LOC: HO.LABR 10:18
PROVIDERS: PCP Internal Medicine; Visit Provider Clinical Nurse Specialist Psychiatric/Mental Health, Adult
DX: Z79.899 Other long term (current) drug therapy (principal)
CPT/HCPCS: 36415; 85025

== ENCOUNTER 2023-08-08 10:50 | Outpatient (REF) | payer MEDICAID, SELFPAY ==
[2023-08-08 11:14] LABS: MANUAL DIFF FLAG NO
[2023-08-08 13:03] LABS: Basophils Percent Auto 0.4 % (0-2); Eosinophils Absolute Auto 0.1 X10*3/uL (0.0-0.4); Hematocrit 35.4 % (37.0-47.0); Hemoglobin 10.9 g/dl (12.0-16.0); Imm Gran Abs Auto 0.03 X10*3/uL (0.00-0.03); Imm Gran Pct Auto 0.4 % (0.0-0.4); Lymphocytes Absolute Auto 2.4 X10*3/uL (1.2-4.9); Lymphocytes Percent Auto 30.6 % (20-40); Mean Corpuscular HGB Conc 30.8 g/dl (31.0-35.0); Mean Corpuscular Hemoglobin 27.8 pg (27.0-33.0); Mean Corpuscular Volume 90.3 fL (80.0-98.0); Mean Platelet Volume 11.8 fL (9.4-12.3); Monocytes Absolute Auto 0.6 X10*3/uL (0.1-1.2); Neutrophils Absolute Auto 4.7 x10*3/uL (2.0-8.3); Neutrophils Percent Auto 59.6 % (45-73); Platelet Count 364 X10*3/uL (160-400); Red Blood Count 3.92 X10*6/uL (4.20-5.50); Red Cell Distribution Width 15.6 % (11.0-16.0); White Blood Count 7.9 X10*3/uL (4.8-10.8)
[2023-08-08 13:40] LABS: Cholesterol 203 mg/dL (<200); HDL Cholesterol 47 mg/dL (>40); LDL Cholesterol Calculated 135 mg/dL (<100); Triglycerides 106 mg/dL (<150)
[2023-08-08 13:45] LABS: Reflex LDLD? No
[2023-08-08 13:53] LABS: Alanine Aminotransferase 9 U/L (0-31); Albumin Level 4.3 g/dL (3.5-5.0); Alkaline Phosphatase 76 U/L (39-117); Aspartate Amino Transferase 11 U/L (5-31); Bilirubin Direct < 0.2 mg/dL (0.0-0.5); Bilirubin Total 0.2 mg/dL (0.0-1.0); Total Protein 7.2 g/dL (6.5-8.0)
[2023-08-08 14:14] LABS: TSH reflex Free T4 1.88 uIU/mL (0.32-4.0)
== END 2023-08-08 10:51 | disposition home or self-care (01) ==
LOC: HO.LAB 10:50
PROVIDERS: Absent Provider Clinical Nurse Specialist Psychiatric/Mental Health, Adult; PCP Internal Medicine; Visit Provider Internal Medicine
DX: R00.0 Tachycardia, unspecified (principal); F20.0 Paranoid schizophrenia; Z79.899 Other long term (current) drug therapy
CPT/HCPCS: 36415; 80061; 80076; 84443; 85025

== ENCOUNTER → 2023-08-10 11:35 | Outpatient (BNVA) | payer MEDICAID, SELFPAY | PROVIDERS: PCP Internal Medicine; Visit Provider Internal Medicine Gastroenterology | DX: D64.9 Anemia, unspecified (principal) | CPT/HCPCS: 99212 ==

== ENCOUNTER 2023-08-10 11:36 | Outpatient (AMB) | payer MEDICAID, SELFPAY ==
--- NOTE | 2023-08-10 11:35 | MHC.OFFVIS ---
Intake Vital Signs 08/10/23 11:38 Height 5 ft 2 in Weight 185 lb 3.013 oz BMI 33.9 BP 130/61 Blood Pressure Location Lt brachial Position Sitting Pulse 103 H Intake Visit Reasons: Follow up Intake Note: Brenna presents in the office as a follow up. CC: She states that she has been not having any issues with her bowels. Stomach has been okay. Commissioned Police Officer Required: Yes Allergies diazepam [From Valium] Allergy (Unknown, Verified 08/10/23 11:42) Unknown haloperidol [From Haldol] Allergy (Unknown, Verified 08/10/23 11:42) Unknown Penicillins Allergy (Unknown, Verified 08/10/23 11:42) Unknown risperidone [From Risperdal] Allergy (Unknown, Verified 08/10/23 11:42) Unknown aspirin [Aspirin] Adverse Reaction (Intermediate, Verified 08/10/23 11:42) Vomiting trazodone [TRAZODONE] Adverse Reaction (Intermediate, Verified 08/10/23 11:42) NAUSEA & VOMITING HPI Follow up HPI Details 57 yr old f with hx of schizophrenia, and prior ischemic colitis here for f/u RECAP LAst seen by me 2020 She was initially admitted to for psychiatric issues and was having meds titrated she then developed diffuse abdominal pain with low BP and diarrhea with dizziness. Passing loose stools, no blood being seen in stools, but background hx of chronic constipation Appetite was poor Her BP was low but had recovered. she couldn;t recall having had colonoscopy or similar sx in the past, not on nsaids No FH of CRC SHe was also seen by Dr Lu [address] Imaging: redundant colon with inflammatory colonic changes from spelnic flexure to left colon I suspected she had hypotension and subsequent ischemic colitis, could be due to psych meds, or results of constipation worsened by her redundant colon. INTERIM: she has better control of constipatio with prune juice, high fiber diet, colace and lactulose, miralax combo smoking--trying to cut down no alcohol no nausea, or vomiting appetite is good her psyche is good but she was admitted for depression and anxiety a month ago she takes ppi for gerd and works well EXAM: GENERAL: The patient is well developed and nontoxic.obese VITAL SIGNS:see workflow HEENT: Nonicteric sclerae, PERRLA, EOMI. Oropharynx clear. Moist mucous membranes. Conjunctivae appear well perfused. No thyroid mass. CHEST: Chest wall is nontender. HEART: Regular rate and rhythm without murmurs. LUNGS: Clear to auscultation bilaterally. ABDOMEN: Soft, positive bowel sounds, nontender, no organomegaly.no flank tenderness SKIN: No rash, no excessive bruising, petechiae, or purpura. NEUROLOGIC: Cranial nerves II-XII intact without motor/sensory deficit. Psych--low affect A/P--slow colonic transit due to medications, genetic issues better with combo laxatives as above chronic anemia, with nml MCV, ? due to gastritis, meds PLAN: 1/ EGD and colo for further eval, will get abdo binder--PEG prep with zofran prn 2/ if neg then hgb electrophoresis --check zn, and b12, folate, etc 3/ cont with current laxative combo as works well [facility] Medical History (Updated 08/10/23 @ 12:05 by Hugo Mendez MD) Diabetes Morbid obesity due to excess calories Anxiety Chronic mental illness COPD (chronic obstructive pulmonary disease) Hyperlipidemia Schizophrenia Asthma Surgical History (Updated 08/10/23 @ 11:42 by LIZETT Choudhury) Hx of colonoscopy History of tubal ligation H/O right knee surgery History of appendectomy Family History Father Throat cancer Mother CVA (cerebral vascular accident) Brother Drug overdose Sister No problems noted. Sister No problems noted. Son No problems noted. Son No problems noted. 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: Unknown / Unable to assess Household Members Other:: Lanny Soto, Inocencio Soto, - foster parents Housing: House Do you presently have visiting nurse or other home services: Yes (Meds administered by [facility]) Unable to assess alcohol history related to: Unknown Alcohol intake: never Comment: pt resting with eyes closed Patient Tobacco Use Status: Current everyday Tobacco user Tobacco use type: Cigarette Cigarettes Per Day: 10 e-Cigarette/Vaping Use: Never Used Second Hand Smoke Exposure: No Advance Directives Date on File: 12/13/22 service: No Current occupational status: disabled Sexual orientation: Straight/Heterosexual Physical Exam Vital Signs: Last Vital Signs Pulse 103 H 12/22/23 11:38 BP 130/61 08/10/23 11:38 BMI result Body Mass Index 33.9 Assessment & Plan Assessment & Plan (1) Anemia: Code(s): D64.9 - Anemia, unspecified Plan: s PLAN: 1/ EGD and colo for further eval, will get abdo binder--PEG prep with zofran prn 2/ if neg then hgb electrophoresis --check zn, and b12, folate, etc Coding Level of Care Code Est Pt Level 4 (79565) Diagnoses Anemia D64.9
[2023-08-10 11:38] VITALS: BP 130/61; PULSE 103; BMI 33.9
== END 2023-08-10 12:07 | disposition home or self-care (01) ==
PROVIDERS: PCP Internal Medicine; Visit Provider Internal Medicine Gastroenterology
DX: D64.9 Anemia, unspecified (principal)
CPT/HCPCS: 99214

== ENCOUNTER 2023-09-10 12:23 | Outpatient (REF) | payer MEDICAID, SELFPAY ==
[2023-09-10 12:40] LABS: MANUAL DIFF FLAG NO
[2023-09-10 14:16] LABS: Basophils Percent Auto 0.4 % (0-2); Eosinophils Absolute Auto 0.1 X10*3/uL (0.0-0.4); Eosinophils Percent Auto 1.2 % (0-4); Hematocrit 33.8 % (37.0-47.0); Hemoglobin 10.3 g/dl (12.0-16.0); Imm Gran Abs Auto 0.07 X10*3/uL (0.00-0.03); Lymphocytes Absolute Auto 2.4 X10*3/uL (1.2-4.9); Lymphocytes Percent Auto 32.6 % (20-40); Mean Corpuscular HGB Conc 30.5 g/dl (31.0-35.0); Mean Corpuscular Hemoglobin 27.6 pg (27.0-33.0); Mean Corpuscular Volume 90.6 fL (80.0-98.0); Mean Platelet Volume 11.4 fL (9.4-12.3); Monocytes Absolute Auto 0.7 X10*3/uL (0.1-1.2); Monocytes Percent Auto 9.3 % (2-11); Neut%MD 55.5 %; Neutrophils Absolute Auto 4.1 x10*3/uL (2.0-8.3); Neutrophils Percent Auto 55.5 % (45-73); Platelet Count 348 X10*3/uL (160-400); Red Blood Count 3.73 X10*6/uL (4.20-5.50); Red Cell Distribution Width 15.6 % (11.0-16.0); WBCANC 7.3 X10*3/uL; White Blood Count 7.3 X10*3/uL (4.8-10.8)
== END 2023-09-10 12:24 | disposition home or self-care (01) ==
LOC: HO.LABR 12:23
PROVIDERS: PCP Internal Medicine; Visit Provider Clinical Nurse Specialist Psychiatric/Mental Health, Adult
DX: Z79.899 Other long term (current) drug therapy (principal)
CPT/HCPCS: 36415; 85025

== ENCOUNTER 2023-09-13 14:28 | Outpatient (REF) | payer MEDICAID, SELFPAY ==
--- NOTE | ~2023-09-13 | XR_ITS ---
STUDY: Standing knees and left knee INDICATION: Pain TECHNIQUE: AP standing knees, 2 view left knee COMPARISON: 05/03/2022, 11/16/2015 FINDINGS: Right total knee replacement is stable in appearance without evidence of loosening. Satisfactory alignment. Tricompartment spurring on the left with moderately severe medial and patellofemoral narrowings. Mild lateral knee joint narrowing. Moderate suprapatellar effusion. No fracture or dislocation. Chondroid matrix again identified distal femoral metaphysis. XR/XR knee standing BI IMPRESSION: Right total knee replacement. Advanced osteoarthritis left knee. Moderate left suprapatellar effusion. Unchanged chondroid matrix distal left femoral metaphysis.
--- NOTE | ~2023-09-13 | XR_ITS ---
STUDY: Standing knees and left knee INDICATION: Pain TECHNIQUE: AP standing knees, 2 view left knee COMPARISON: 05/03/2022, 11/16/2015 FINDINGS: Right total knee replacement is stable in appearance without evidence of loosening. Satisfactory alignment. Tricompartment spurring on the left with moderately severe medial and patellofemoral narrowings. Mild lateral knee joint narrowing. Moderate suprapatellar effusion. No fracture or dislocation. Chondroid matrix again identified distal femoral metaphysis. XR/XR knee LT 2V IMPRESSION: Right total knee replacement. Advanced osteoarthritis left knee. Moderate left suprapatellar effusion. Unchanged chondroid matrix distal left femoral metaphysis.
== END 2023-09-13 14:29 | disposition home or self-care (01) ==
LOC: HO.HOSX 14:28
PROVIDERS: PCP Internal Medicine; Visit Provider Orthopaedic Surgery
DX: M25.562 Pain in left knee (principal); M17.12 Unilateral primary osteoarthritis, left knee; Z96.651 Presence of right artificial knee joint
CPT/HCPCS: 73560; 73565; 99212

== ENCOUNTER 2023-09-13 14:28 | Outpatient (AMB) | payer MEDICAID, SELFPAY ==
--- NOTE | 2023-09-13 14:30 | MHC.OFFVIS ---
Intake Vital Signs 09/13/23 14:33 Height 29 in Weight 185 lb BMI 154.6 Intake Visit Reasons: ov- Left knee pain Intake Note: Brenna is a 57 year old female who presents today for a follow up of her left knee OA. Last injection done 04/27/23. Injection was not helpful. She is not a good surgical candidate Allergies diazepam [From Valium] Allergy (Unknown, Verified 09/13/23 14:33) Unknown haloperidol [From Haldol] Allergy (Unknown, Verified 09/13/23 14:33) Unknown Penicillins Allergy (Unknown, Verified 09/13/23 14:33) Unknown risperidone [From Risperdal] Allergy (Unknown, Verified 09/13/23 14:33) Unknown aspirin [Aspirin] Adverse Reaction (Intermediate, Verified 09/13/23 14:33) Vomiting trazodone [TRAZODONE] Adverse Reaction (Intermediate, Verified 09/13/23 14:33) NAUSEA & VOMITING HPI ov- Left knee pain HPI Details Brenna is a 58 year old woman who returns to discuss her left knee OA. She was last seen and injected on 04/27/23, which she says gave limited relief. She has a Hx of right TKA in ~[address] Salgado, which she tolerated well and is happy with. She has pain with daily activity. She walks with a cane and would like to discuss treatment options today. She says she is currently taking Tramadol for her pain. She has a hx of Schizophrenia, developmental delays, and Tachycardia. [facility] Medical History Diabetes Morbid obesity due to excess calories Anxiety Chronic mental illness COPD (chronic obstructive pulmonary disease) Hyperlipidemia Schizophrenia Asthma Surgical History Hx of colonoscopy History of tubal ligation H/O right knee surgery History of appendectomy Family History Father Throat cancer Mother CVA (cerebral vascular accident) Brother Drug overdose Sister No problems noted. Sister No problems noted. Son No problems noted. Son No problems noted. 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: Unknown / Unable to assess Household Members Other:: Iris Charles, Inocencious Soto, - foster parents Housing: House Do you presently have visiting nurse or other home services: Yes (Meds administered by [facility]) Unable to assess alcohol history related to: Unknown Alcohol intake: never Comment: pt resting with eyes closed Patient Tobacco Use Status: Current everyday Tobacco user Tobacco use type: Cigarette Cigarettes Per Day: 10 e-Cigarette/Vaping Use: Never Used Second Hand Smoke Exposure: No Advance Directives Date on File: 12/13/22 service: No Current occupational status: disabled Sexual orientation: Straight/Heterosexual Review of Systems Const All systems reviewed & are unremarkable except as noted in HPI and below Physical Exam Vital Signs: BMI result Body Mass Index 154.6 Const General: no acute distress, alert and awake Orientation/consciousness: patient oriented x3 HEENT Head: Yes normocephalic and Yes atraumatic Eyes EOM: EOMs intact bilaterally Resp Effort & Inspection: normal respiratory effort and able to speak in complete sentences Cardio Jugular venous distension: no JVD Skin General skin exam: turgor normal Rashes: no rashes Neuro General: patient oriented x3 Extrem Other: medial compartment ttp left knee Psych Appearance: grossly normal Affect: normal affect Attitude: cooperative Results Reviewed Results Reviewed: I personally reviewed relevant radiographs. Moderate to severe left knee OA RIght total knee arthroplasty in expected post operative position with no hardware complications or evidence of loosening Assessment & Plan Assessment & Plan (1) Tricompartment osteoarthritis of left knee: Code(s): M17.12 - Unilateral primary osteoarthritis, left knee Plan: Left knee OA that has failed injections. SHe walks with a ane and describes constant pain. She has multiple risk factors and is only 58. I recommend referral to pain management for possible SPRINT trial. Plan Prepared for Dwain Valencia MD by Anthony Castaneda, medical management specialist, on 09/13/23 at 2:39 PM, EST. Orders: Orders XR knee standing BI 09/13/23 M25.569 - Pain in unspecified knee XR knee LT 2V 09/13/23 M25.569 - Pain in unspecified knee Coding Level of Care Code Est Pt Level 4 (09825) Diagnoses Tricompartment osteoarthritis of left knee M17.12
[2023-09-13 14:33] VITALS: BMI 154.6
== END 2023-09-13 15:29 | disposition home or self-care (01) ==
PROVIDERS: PCP Internal Medicine; Referring Provider Internal Medicine; Visit Provider Orthopaedic Surgery
DX: M17.12 Unilateral primary osteoarthritis, left knee (principal)
CPT/HCPCS: 99213

== ENCOUNTER 2023-10-01 09:17 | Outpatient (AMB) | payer MEDICAID, SELFPAY ==
--- NOTE | 2023-10-01 09:19 | A.OFFVIS_ITS ---
Intake Vital Signs 10/01/23 09:31 Height 5 ft 2 in Weight 185 lb 2 oz BMI 33.9 BP 148/80 H Blood Pressure Location Lt brachial Position Sitting Respiration 16 Pulse 95 Pulse Source Pulse Oximeter Pulse Oximetry (%) 98 Oxygen Delivery Method Room Air Intake Visit Reasons: Unilateral Primary Osteoarthritis, Left Knee Intake Note: Patient comes in for the initial visit and was referred by [facility] orthopedic she was accompanied by her case management coordinator Alessia. Reports pain 05/29. Allergies diazepam [From Valium] Allergy (Unknown, Verified 10/01/23 09:30) Unknown haloperidol [From Haldol] Allergy (Unknown, Verified 10/01/23 09:30) Unknown Penicillins Allergy (Unknown, Verified 10/01/23:30) Unknown risperidone [From Risperdal] Allergy (Unknown, Verified 10/01/23:30) Unknown aspirin [Aspirin] Adverse Reaction (Intermediate, Verified 10/01/23 09:30) Vomiting trazodone [TRAZODONE] Adverse Reaction (Intermediate, Verified 10/01/23 09:30) NAUSEA & VOMITING HPI HPI Comments History of Present Illness Details Brenna is very pleasant Cymraes-speaking mentally delayed 58 years old female with extensive history of psychiatric conditions including schizophrenia, anxiety, depression, suicidal ideations, frequent admissions to the psych [facility]. She reported today severe pain in the left knee which started 1 year ago. Previously she was subject of total knee replacement on the right she does not complain on that knee. She reported today that her pain is very severe with severity 7-10 out of 10. Because of her pain she can not sleep normally can not do activities of daily living can not take care of herself can not function normally. She is on permanent disability. Walking standing and laying down all aggravate her pain. She tried to apply heat and cold applications to the knee with minimal help. She reports her pain in terms of tissue damage as throbbing, pounding, pulling, ranging, aching sensation. She is taking 50 mg of tramadol twice a day for her pain she reports this helps her very minimally. She had physical therapy about 1 year ago and reported 4 weeks of pain improvement but no more than that. She probably is capable of comprehending necessity of home exercise program. She had images of the right knee in the chart. She received in the past intra-articular knee injections with steroids which initially worked minimally but lately became completely ineffective. Her past medical history significant for hypertension anxiety depression schizophrenia and developmental delay, also diabetes asthma and obesity. Past surgical history significant for right total knee arthroplasty social history she is disabled individual staying in a detention. She has a casework supervisor who presented with her today and who helped us with interpreting the patient's conversation. She smokes cigarettes about 1/3 pack a day, she denies drinking alcohol drinks 2 caffeinated beverages a day and denies recreational drugs. [facility] Medical History Diabetes Morbid obesity due to excess calories Anxiety Chronic mental illness COPD (chronic obstructive pulmonary disease) Hyperlipidemia Schizophrenia Asthma Surgical History Hx of colonoscopy History of tubal ligation H/O right knee surgery History of appendectomy Family History Father Throat cancer Mother CVA (cerebral vascular accident) Brother Drug overdose Sister No problems noted. Sister No problems noted. Son No problems noted. Son No problems noted. 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: Unknown / Unable to assess Household Members Other:: Lanny Soto, Inocencio Soto, - foster parents Housing: House Do you presently have visiting nurse or other home services: Yes (Meds administered by [facility]) Unable to assess alcohol history related to: Unknown Alcohol intake: never Comment: pt resting with eyes closed Patient Tobacco Use Status: Current everyday Tobacco user Tobacco use type: Cigarette Cigarettes Per Day: 10 e-Cigarette/Vaping Use: Never Used Second Hand Smoke Exposure: No Advance Directives Date on File: 12/13/22 service: No Current occupational status: disabled Sexual orientation: Straight/Heterosexual Review of Systems Const Denies chills, Denies daytime sleepiness, Denies fever(s), Denies frequent falls and Denies night sweats Eyes Denies loss of vision ENT Denies dizziness and Denies hearing loss Card Denies chest pain, Denies chest pain with activity, Denies syncope, Denies rapid heart rate, Denies edema, Denies claudication, Denies leg edema, Denies lightheadedness, Denies dyspnea and Denies orthopnea Resp Denies cough, Denies excessive phlegm production and Denies dyspnea GI Denies abdominal pain, Denies hematochezia, Denies change in bowel habits, Denies change in stool character, Denies heartburn, Denies nausea and Denies vomiting Musc Denies muscle weakness, Denies numbness and Denies tingling Neuro Denies Abnormal speech present, Denies dizziness, Denies syncope, Denies frequent falls, Denies loss of vision, Denies numbness and Denies tingling Physical Exam Vital Signs: Last Vital Signs Pulse 95 10/01/23 09:31 Resp 16 10/01/23 09:31 BP 148/80 H 10/01/23 09:31 Pulse Ox 98 10/01/23 09:31 Oxygen Delivery Method Room Air 10/01/23 09:31 BMI result Body Mass Index 33.9 Const General: no acute distress, alert and awake Orientation/consciousness: patient oriented x3 HEENT Head: Yes normocephalic and Yes atraumatic Eyes EOM: EOMs intact bilaterally Resp Effort & Inspection: normal respiratory effort and able to speak in complete sentences Cardio Jugular venous distension: no JVD Skin General skin exam: turgor normal Rashes: no rashes Neuro General: patient oriented x3 Speech: No Abnormal speech present Extrem Other: medial compartment ttp left knee Psych Appearance: grossly normal Affect: normal affect Attitude: cooperative Results Reviewed Results Reviewed: Moderate to severe left knee OA RIght total knee arthroplasty in expected post operative position with no hardware complications or evidence of loosening Assessment & Plan Assessment & Plan (1) Tricompartment osteoarthritis of left knee: Code(s): M17.12 - Unilateral primary osteoarthritis, left knee (2) Schizophrenia: Code(s): F20.9 - Schizophrenia, unspecified Plan I personally do not believe this patient could tolerate any implantable devices whether they are permanent or temporary. She has developmental delay and schizophrenia, she has suicidal ideations visual and auditory hallucinations. In my opinion radiofrequency ablation of the left genicular nerves after possibly positive diagnostic genicular nerve is the most practical solution for this patient's pain. She was denied total knee replacement by Orthopedic surgery. I will schedule this patient for diagnostic genicular nerve block left knee under propofol anesthesia at the operating room. I do not believe she will be able to tolerate it without sedation. After that I will assess the results of the diagnostic genicular nerve block and possibly offer patient left knee genicular RFA. If results of the genicular nerve block will not be promising I would consider sprint PNS that the femoral nerve position adductor canal position, however I am not sure if patient could participate in this trial. Coding Level of Care Code New Pt Level 3 (10944) Diagnoses Tricompartment osteoarthritis of left knee M17.12 Schizophrenia F20.9
[2023-10-01 09:31] VITALS: BP 148/80; PULSE 95; RESP 16; O2SAT 98; BMI 33.9
== END 2023-10-01 09:46 | disposition home or self-care (01) ==
PROVIDERS: PCP Internal Medicine; Referring Provider Orthopaedic Surgery; Visit Provider Anesthesiology
DX: M25.562 Pain in left knee (principal); M17.12 Unilateral primary osteoarthritis, left knee; F20.9 Schizophrenia, unspecified
CPT/HCPCS: 99203

== ENCOUNTER 2023-10-01 09:17 | Outpatient (REF) | payer MEDICAID, SELFPAY ==
[2023-10-01 10:34] LABS: MANUAL DIFF FLAG NO
[2023-10-01 11:01] LABS: Basophils Percent Auto 0.2 % (0-2); Eosinophils Absolute Auto 0.1 X10*3/uL (0.0-0.4); Eosinophils Percent Auto 1.1 % (0-4); Hematocrit 30.9 % (37.0-47.0); Hemoglobin 9.3 g/dl (12.0-16.0); Imm Gran Abs Auto 0.06 X10*3/uL (0.00-0.03); Imm Gran Pct Auto 0.7 % (0.0-0.4); Lymphocytes Absolute Auto 2.5 X10*3/uL (1.2-4.9); Lymphocytes Percent Auto 29.1 % (20-40); Mean Corpuscular HGB Conc 30.1 g/dl (31.0-35.0); Mean Corpuscular Hemoglobin 25.6 pg (27.0-33.0); Mean Corpuscular Volume 85.1 fL (80.0-98.0); Mean Platelet Volume 11.1 fL (9.4-12.3); Monocytes Absolute Auto 0.7 X10*3/uL (0.1-1.2); Monocytes Percent Auto 8.6 % (2-11); NRBC Pct Auto 0.2 /100WBC (0.0-0.2); Neutrophils Absolute Auto 5.1 x10*3/uL (2.0-8.3); Neutrophils Percent Auto 60.3 % (45-73); Platelet Count 319 X10*3/uL (160-400); Red Blood Count 3.63 X10*6/uL (4.20-5.50); Red Cell Distribution Width 15.7 % (11.0-16.0); White Blood Count 8.5 X10*3/uL (4.8-10.8)
== END 2023-10-01 09:18 | disposition home or self-care (01) ==
LOC: HO.LAB 09:17
PROVIDERS: PCP Internal Medicine; Referring Provider Orthopaedic Surgery; Visit Provider Clinical Nurse Specialist Psychiatric/Mental Health, Adult
DX: M17.12 Unilateral primary osteoarthritis, left knee (principal); Z96.651 Presence of right artificial knee joint; Z79.899 Other long term (current) drug therapy; F20.9 Schizophrenia, unspecified
CPT/HCPCS: 36415; 85025; 99202

== ENCOUNTER 2023-10-12 11:25 | Day surgery (SDC) | payer MEDICAID, SELFPAY ==
--- NOTE | 2023-10-11 10:14 | P.CONAN_ITS ---
Documented by User: Shavon Butcher NP 10/11/23 10:16 HPI - Anesthesia Eval Consult details Narrative: 58yo F for Left Diagnostic Genicular Nerve Block PMFSH Active Problems Active Problems: All Active Problems (Updated 09/18/23 @ 00:03 by Background Daemon) Anemia (Acute) Tachycardia (Acute) COVID-19 virus infection (Acute) Pre-diabetes (Acute) History of arthroplasty of right knee (Acute) Tricompartment osteoarthritis of left knee (Acute) Schizophrenia (Acute) Pneumonia due to COVID-19 virus (Acute) Hypoxia (Acute) Dehydration (Acute) Pneumonia due to COVID-19 virus (Acute) Hyperkalemia (Acute) Hyponatremia (Acute) CAP (community acquired pneumonia) (Acute) Ileus (Acute) Arthritis (Acute) Hypertension (Acute) Breast mass, right (Acute) Acute exacerbation of chronic obstructive airways disease (Acute) Community acquired pneumonia (Acute) Past Medical History Medical History Diabetes Morbid obesity due to excess calories Anxiety Chronic mental illness COPD (chronic obstructive pulmonary disease) Hyperlipidemia Schizophrenia Asthma Family History Family History Father Throat cancer Mother CVA (cerebral vascular accident) Brother Drug overdose Sister No problems noted. Sister No problems noted. Son No problems noted. Son No problems noted. Surgical History Surgical History Hx of colonoscopy History of tubal ligation H/O right knee surgery History of appendectomy Social History 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: Unknown / Unable to assess Household Members Other:: Lanny Soto, Inocencio Soto, - foster parents Housing: House Do you presently have visiting nurse or other home services: Yes (Meds administered by [facility]) Unable to assess alcohol history related to: Unknown Alcohol intake: never Comment: pt resting with eyes closed Patient Tobacco Use Status: Current everyday Tobacco user Tobacco use type: Cigarette Cigarettes Per Day: 6 e-Cigarette/Vaping Use: Never Used Second Hand Smoke Exposure: No Use of substances other than those prescribed or required for medical reasons: No Are you DNR?: No Advance Directives: No Advance Directives Information Provided: Yes Advance Directives Date on File: 12/13/22 service: No Current occupational status: disabled Sexual orientation: Straight/Heterosexual Meds Allergies Allergy/AdvReac Type Severity Reaction Status Date / Time diazepam [From Valium] Allergy Unknown Unknown Verified 10/01/23 09:30 haloperidol [From Haldol] Allergy Unknown Unknown Verified 10/01/23 09:30 Penicillins Allergy Unknown Unknown Verified 10/01/23 09:30 risperidone [From Risperdal] Allergy Unknown Unknown Verified 10/01/23 09:30 aspirin [Aspirin] AdvReac Intermediate Vomiting Verified 10/01/23 09:30 trazodone [TRAZODONE] AdvReac Intermediate NAUSEA & Verified 10/01/23 09:30 VOMITING Home Medications Medication Instructions Recorded Confirmed Last Taken Type sennosides 8.6 mg tablet (senna) 17.2 mg PO BEDTIME PRN constipation 12/13/22 06/18/23 12/12/22 History albuterol sulfate 2.5 mg/3 mL 2.5 mg inhalation Q4H PRN wheezing 06/18/23 06/18/23 Unknown History (0.083 %) solution for nebulization albuterol sulfate 90 mcg/actuation 2 puff inhalation Q4-6H PRN 06/18/23 06/18/23 Unknown History aerosol inhaler (Ventolin HFA) Shortness Of Breath Or Wheezing fluticasone propionate 110 2 puff inhalation BID 06/18/23 06/18/23 Unknown History mcg/actuation HFA aerosol inhaler (Flovent HFA) sucralfate 1 gram tablet 1 g PO TID 06/18/23 06/18/23 Unknown History tramadol 50 mg tablet 50 mg PO TID PRN Pain, Moderate 06/18/23 06/18/23 Unknown History polyethylene glycol 3350 17 gram 17 g PO TID PRN 08/10/23 Unknown History oral powder packet divalproex 500 mg tablet,extended 1,250 mg PO QPM 10/01/23 Unknown History release 24 hr Exam Pertinent Lab Results Pertinent Lab Results: Laboratory Tests 07/03/23 10/01/23 08:04 10:33 WBC 8.5 Hgb 9.3 L Hct 30.9 L Plt Count 319 Sodium 137 Potassium 4.8 Chloride 100 Carbon Dioxide 26 BUN 19 H Creatinine 0.68 Assessment and Plan Assessment Anesthesia Assessment: Chart Reviewed Documented by User: Vicente Grace MD 10/12/23 13:19 PMFSH Past Medical History Medical History Diabetes Morbid obesity due to excess calories Anxiety Chronic mental illness COPD (chronic obstructive pulmonary disease) Hyperlipidemia Schizophrenia Asthma Family History Family History Father Throat cancer Mother CVA (cerebral vascular accident) Brother Drug overdose Sister No problems noted. Sister No problems noted. Son No problems noted. Son No problems noted. Family history of problems with anesthesia: No Surgical History Surgical History Hx of colonoscopy History of tubal ligation H/O right knee surgery History of appendectomy History of Problems with Anesthesia: No Social History 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: Unknown / Unable to assess Household Members Other:: Lanny Soto, Inocencio Soto, - foster parents Housing: House Do you presently have visiting nurse or other home services: Yes (Meds administered by [facility]) Unable to assess alcohol history related to: Unknown Alcohol intake: never Comment: pt resting with eyes closed Patient Tobacco Use Status: Current everyday Tobacco user Tobacco use type: Cigarette Cigarettes Per Day: 6 e-Cigarette/Vaping Use: Never Used Second Hand Smoke Exposure: No Use of substances other than those prescribed or required for medical reasons: No Are you DNR?: No Advance Directives: No Advance Directives Information Provided: Yes Advance Directives Date on File: 12/13/22 service: No Current occupational status: disabled Sexual orientation: Straight/Heterosexual Meds Allergies Allergy/AdvReac Type Severity Reaction Status Date / Time diazepam [From Valium] Allergy Unknown Unknown Verified 10/01/23 09:30 haloperidol [From Haldol] Allergy Unknown Unknown Verified 10/01/23 09:30 Penicillins Allergy Unknown Unknown Verified 10/01/23 09:30 risperidone [From Risperdal] Allergy Unknown Unknown Verified 10/01/23 09:30 aspirin [Aspirin] AdvReac Intermediate Vomiting Verified 10/01/23 09:30 trazodone [TRAZODONE] AdvReac Intermediate NAUSEA & Verified 10/01/23 09:30 VOMITING Home Medications Medication Instructions Recorded Confirmed Last Taken Type sennosides 8.6 mg tablet (senna) 17.2 mg PO BEDTIME PRN constipation 12/13/22 06/18/23 12/12/22 History albuterol sulfate 2.5 mg/3 mL 2.5 mg inhalation Q4H PRN wheezing 06/18/23 06/18/23 Unknown History (0.083 %) solution for nebulization albuterol sulfate 90 mcg/actuation 2 puff inhalation Q4-6H PRN 06/18/23 06/18/23 Unknown History aerosol inhaler (Ventolin HFA) Shortness Of Breath Or Wheezing fluticasone propionate 110 2 puff inhalation BID 06/18/23 06/18/23 Unknown History mcg/actuation HFA aerosol inhaler (Flovent HFA) sucralfate 1 gram tablet 1 g PO TID 06/18/23 06/18/23 Unknown History tramadol 50 mg tablet 50 mg PO TID PRN Pain, Moderate 06/18/23 06/18/23 Unknown History polyethylene glycol 3350 17 gram 17 g PO TID PRN 08/10/23 Unknown History oral powder packet divalproex 500 mg tablet,extended 1,250 mg PO QPM 10/01/23 Unknown History release 24 hr Exam Airway Mallampati Class: IV TM Dist: <=3cm Neck ROM: Full Heart: rrr Lungs: wheeze Assessment and Plan Assessment Anesthesia Assessment: Anesthesia Plan Discussed Final Anesthetic Review Family History of Problems with Anesthesia: No History of Problems with Anesthesia: No NPO: Yes ASA Class: III Final Preanesthetic Review: No Changes in Pt Med Stat, Meds/Allgs Chart Revsun, Consent Obtained/Reviewed and Anes Risks/Benef Reviewed Patient Risk: Intermediate Procedure Risk: Low Anesthetic Plan Anesthetic Plan: MAC: Disposition: Standard PACU
--- NOTE | ~2023-10-12 | FL_ITS ---
EXAMINATION: XR FLUOROSCOPY WITH IMAGES CLINICAL INFORMATION: Left knee injection COMPARISON: 09/13/2023 TECHNIQUE: Fluoroscopy Supervised By: Dr. Jonathon Hoffman. Fluoroscopy Time: 14.1 seconds. Cumulative Dose: 1.7105 mGy. DAP: 0.6931 Gycm2. Images: 2. FINDINGS: Images obtained during injection in the right knee. There are changes of osteoarthritis seen. 3 pointing medial is projecting over the distal femur and proximal tibia. FL/FL guidance in OR IMPRESSION: Fluoroscopy assistance
[2023-10-12 11:40] VITALS: BMI 35.5
[2023-10-12 12:01] VITALS: BP 135/74; PULSE 96; RESP 16; TEMP 36.2; O2SAT 92
[2023-10-12 12:13] LABS: Glucose, Whole Blood 95 mg/dL (60-115)
[2023-10-12] MEDS: Lactated Ringers 1,000 ML 100 ML IVCONT (12:18)
[2023-10-12] MEDS: Albuterol Sulfate (0.083%) 2.5 MG/3 ML VIAL.NEB INHALE (12:25)
[2023-10-12 12:26] VITALS: PULSE 95; RESP 16; O2SAT 93
[2023-10-12 14:36] LABS: Glucose, Whole Blood 89 mg/dL (60-115)
--- NOTE | 2023-10-12 14:39 | W.PM.OPN ---
Operative Note Operative Note Date of Service: 10/12/23 Narrative: Genicular nerve block left diagnostic. Informed consent was explained before the procedure, risks and benefits outlined. Patient came to the operating room after informed consent was obtained.? She was positioned supine on the operating table with the left leg elevated on a gel bin.. Time-out procedure was performed delineating correct site and side of the injections, patient's name and date of , allergies, need for antibiotics which is required for the left knee. Patient's left knee as well as anterior surface of lower thigh as well as anterior surface of upper galvan were prepped with ChloraPrep and draped with sterile towels.? C-arm was brought over the operating field and sq picture of the patient's left knee was obtained on the screen.? The point of interest were delineated as the confluence of the left metaphysis and diaphysis medial and lateral of image of the femoral bone, as well as the confluence of the diaphysis and metaphysis on the left medial tibial bone.? The point of interest projection to the skin were injected with small amount of Lidocaine and after that 22 g. 3&1/2 spinal needles were inserted through the skin 1st on the left and then on the right.? The needles were driven to the point of interest on anterior posterior and lateral views.? When on lateral views the needles were positioned with the tips in the projection of mid shaft of the bones while lateral condyle and medial condyle were superimposed on the image the 1.5 to 2 cc of Marcaine -was injected into each needle position. Upon completion of the injections needles were removed, sterile Band-Aids were applied. The patient tolerated procedure fairly well.
[2023-10-12 15:10] VITALS: BP 117/74; PULSE 90; RESP 16; TEMP 36.9; O2SAT 99
--- NOTE | 2023-10-12 15:12 | PM.OP ---
Brief Operative Note Date of Service: 10/12/23 Pre-op diagnosis: Left knee pain, left knee osteoarthritis Post-op diagnosis: same Procedure: Left lower extremity genicular nerves block Surgeon: Jonathon Hoffman MD Anesthesia: MAC Was an Product Operations Associate used for this Procedure?: No Estimated blood loss (mL): 3 Condition: stable Disposition: PACU
[2023-10-12 15:25] VITALS: BP 124/76; PULSE 98; RESP 18; TEMP 36.6; O2SAT 92
== END 2023-10-12 15:50 | disposition home or self-care (01) ==
PROVIDERS: PCP Internal Medicine; Visit Provider Anesthesiology
PROC: (CPT 64454; principal; 2023-10-12 13:10)
DX: M25.562 Pain in left knee (principal); M17.12 Unilateral primary osteoarthritis, left knee; J44.9 Chronic obstructive pulmonary disease, unspecified; E11.9 Type 2 diabetes mellitus without complications; E78.5 Hyperlipidemia, unspecified; F20.9 Schizophrenia, unspecified; F99 Mental disorder, not otherwise specified; F41.8 Other specified anxiety disorders; R45.851 Suicidal ideations; E66.01 Morbid (severe) obesity due to excess calories; Z68.33 Body mass index [BMI] 33.0-33.9, adult; Z79.899 Other long term (current) drug therapy; Z88.0 Allergy status to penicillin; Z88.8 Allergy status to other drugs, medicaments and biological substances; Z98.890 Other specified postprocedural states; F17.210 Nicotine dependence, cigarettes, uncomplicated
CPT/HCPCS: 64454; 82947; 94640; J2704; J2795; Q9967

== ENCOUNTER → 2023-10-12 11:25 | Outpatient (BNV) | payer MEDICAID, SELFPAY | PROVIDERS: PCP Internal Medicine; Visit Provider Anesthesiology | DX: M25.562 Pain in left knee (principal); M17.12 Unilateral primary osteoarthritis, left knee | CPT/HCPCS: 64454 ==

== ENCOUNTER 2023-10-18 14:06 | Outpatient (AMB) | payer MEDICAID, SELFPAY ==
--- NOTE | 2023-10-18 14:12 | MHC.OFFVIS ---
Intake Vital Signs 10/18/23 14:17 Height 5 ft 2 in Weight 186 lb 6 oz BMI 34.1 BP 142/78 H Blood Pressure Location Lt brachial Position Sitting Respiration 14 Pulse 104 H Pulse Source Pulse Oximeter Pulse Oximetry (%) 96 Oxygen Delivery Method Room Air Intake Visit Reasons: S/p (L) Genicular NB 10/12/23/ confirm Intake Note: Patient comes in for post-op appointment. Reports pain 8/10. Allergies diazepam [From Valium] Allergy (Unknown, Verified 10/18/23 14:17) Unknown haloperidol [From Haldol] Allergy (Unknown, Verified 10/18/23 14:17) Unknown Penicillins Allergy (Unknown, Verified 10/18/23 14:17) Unknown risperidone [From Risperdal] Allergy (Unknown, Verified 10/18/23 14:17) Unknown aspirin [Aspirin] Adverse Reaction (Intermediate, Verified 10/18/23 14:17) Vomiting trazodone [TRAZODONE] Adverse Reaction (Intermediate, Verified 10/18/23 14:17) NAUSEA & VOMITING HPI HPI Comments History of Present Illness Details Brenna is back in my office after left knee diagnostic injection. She reported 60% of pain improvement for the 1st 6 hours after the procedure. She reports better mobility immediately after the procedure. She also admits better mobility now 6 days after the procedure. She had this procedure under sedation. I explained patient radiofrequency ablation of the left genicular nerves. Patient agreed to go for the procedure. I will schedule it in the operating room. Prior: mentally delayed 58 years old female with extensive history of psychiatric conditions including schizophrenia, anxiety, depression, suicidal ideations, frequent admissions to the psych [facility]. She reported today severe pain in the left knee which started 1 year ago. Previously she was subject of total knee replacement on the right she does not complain on that knee. She reported today that her pain is very severe with severity 7-10 out of 10. Because of her pain she can not sleep normally can not do activities of daily living can not take care of herself can not function normally. She is on permanent disability. [facility] Medical History Diabetes Morbid obesity due to excess calories Anxiety Chronic mental illness COPD (chronic obstructive pulmonary disease) Hyperlipidemia Schizophrenia Asthma Surgical History Hx of colonoscopy History of tubal ligation H/O right knee surgery History of appendectomy Family History Father Throat cancer Mother CVA (cerebral vascular accident) Brother Drug overdose Sister No problems noted. Sister No problems noted. Son No problems noted. Son No problems noted. 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: Unknown / Unable to assess Household Members Other:: Lanny Soto, Inocencio Soto, - foster parents Housing: House Do you presently have visiting nurse or other home services: Yes (Meds administered by [facility]) Unable to assess alcohol history related to: Unknown Alcohol intake: never Comment: pt resting with eyes closed Patient Tobacco Use Status: Current everyday Tobacco user Tobacco use type: Cigarette Cigarettes Per Day: 6 e-Cigarette/Vaping Use: Never Used Second Hand Smoke Exposure: No Advance Directives Date on File: 12/13/22 service: No Current occupational status: disabled Sexual orientation: Straight/Heterosexual Review of Systems Const All systems reviewed & are unremarkable except as noted in HPI and below Neuro Denies Abnormal speech present Physical Exam Vital Signs: Last Vital Signs Pulse 104 H 10/18/23 14:17 Resp 14 10/18/23 14:17 BP 142/78 H 10/18/23 14:17 Pulse Ox 96 10/18/23 14:17 Oxygen Delivery Method Room Air 10/18/23 14:17 BMI result Body Mass Index 34.1 Const General: no acute distress, alert and awake Orientation/consciousness: patient oriented x3 HEENT Head: Yes normocephalic and Yes atraumatic Eyes EOM: EOMs intact bilaterally Resp Effort & Inspection: normal respiratory effort and able to speak in complete sentences Cardio Jugular venous distension: no JVD Skin General skin exam: turgor normal Rashes: no rashes Neuro General: patient oriented x3 Speech: No Abnormal speech present Extrem Other: medial compartment ttp left knee Psych Appearance: grossly normal Affect: normal affect Attitude: cooperative Assessment & Plan Assessment & Plan (1) Tricompartment osteoarthritis of left knee: Code(s): M17.12 - Unilateral primary osteoarthritis, left knee (2) Schizophrenia: Code(s): F20.9 - Schizophrenia, unspecified Plan She reported today good results of left genicular nerve block. I offered her radiofrequency ablation of the left genicular nerves. Patient needs to go for the procedure under sedation. She has developmental delay. I will make evaluation of this patient after radiofrequency ablation. Coding Level of Care Code Est Pt Level 3 (53150) Diagnoses Tricompartment osteoarthritis of left knee M17.12 Schizophrenia F20.9
[2023-10-18 14:17] VITALS: BP 142/78; PULSE 104; RESP 14; O2SAT 96; BMI 34.1
== END 2023-10-18 14:27 | disposition home or self-care (01) ==
PROVIDERS: PCP Internal Medicine; Visit Provider Anesthesiology
DX: M17.12 Unilateral primary osteoarthritis, left knee (principal); F20.9 Schizophrenia, unspecified
CPT/HCPCS: 99213

== ENCOUNTER → 2023-10-18 14:06 | Outpatient (BNVA) | payer MEDICAID, SELFPAY | PROVIDERS: PCP Internal Medicine; Visit Provider Anesthesiology | DX: M17.12 Unilateral primary osteoarthritis, left knee (principal); F20.9 Schizophrenia, unspecified | CPT/HCPCS: 99212 ==

== ENCOUNTER 2023-10-30 13:14 | Outpatient (REF) | payer MEDICAID, SELFPAY ==
[2023-10-30 13:29] LABS: MANUAL DIFF FLAG NO
[2023-10-30 14:17] LABS: Basophils Percent Auto 0.4 % (0-2); Eosinophils Absolute Auto 0.1 X10*3/uL (0.0-0.4); Eosinophils Percent Auto 0.6 % (0-4); Hematocrit 30.9 % (37.0-47.0); Hemoglobin 9.1 g/dl (12.0-16.0); Imm Gran Pct Auto 0.9 % (0.0-0.4); Lymphocytes Absolute Auto 2.6 X10*3/uL (1.2-4.9); Lymphocytes Percent Auto 23.9 % (20-40); Mean Corpuscular HGB Conc 29.4 g/dl (31.0-35.0); Mean Corpuscular Hemoglobin 23.8 pg (27.0-33.0); Mean Corpuscular Volume 80.9 fL (80.0-98.0); Monocytes Percent Auto 9.3 % (2-11); NRBC Pct Auto 0.2 /100WBC (0.0-0.2); Neut%MD 64.9 %; Neutrophils Absolute Auto 7.1 x10*3/uL (2.0-8.3); Neutrophils Percent Auto 64.9 % (45-73); Platelet Count 396 X10*3/uL (160-400); Red Blood Count 3.82 X10*6/uL (4.20-5.50); Red Cell Distribution Width 16.3 % (11.0-16.0); WBCANC 10.9 X10*3/uL; White Blood Count 10.9 X10*3/uL (4.8-10.8)
== END 2023-10-30 13:15 | disposition home or self-care (01) ==
LOC: HO.LABR 13:14
PROVIDERS: PCP Internal Medicine; Visit Provider Clinical Nurse Specialist Psychiatric/Mental Health, Adult
DX: Z79.899 Other long term (current) drug therapy (principal)
CPT/HCPCS: 36415; 85025

== ENCOUNTER 2023-12-03 15:23 | Outpatient (REF) | payer MEDICAID, SELFPAY ==
[2023-12-03 15:41] LABS: MANUAL DIFF FLAG NO
[2023-12-03 15:57] LABS: Basophils Percent Auto 0.3 % (0-2); Eosinophils Absolute Auto 0.1 X10*3/uL (0.0-0.4); Eosinophils Percent Auto 0.7 % (0-4); Hematocrit 31.4 % (37.0-47.0); Imm Gran Abs Auto 0.09 X10*3/uL (0.00-0.03); Imm Gran Pct Auto 0.9 % (0.0-0.4); Lymphocytes Absolute Auto 2.5 X10*3/uL (1.2-4.9); Lymphocytes Percent Auto 25.3 % (20-40); Mean Corpuscular HGB Conc 28.7 g/dl (31.0-35.0); Mean Corpuscular Hemoglobin 22.8 pg (27.0-33.0); Mean Corpuscular Volume 79.7 fL (80.0-98.0); Mean Platelet Volume 11.2 fL (9.4-12.3); Monocytes Absolute Auto 0.8 X10*3/uL (0.1-1.2); Monocytes Percent Auto 8.1 % (2-11); NRBC Pct Auto 0.4 /100WBC (0.0-0.2); Neutrophils Absolute Auto 6.3 x10*3/uL (2.0-8.3); Neutrophils Percent Auto 64.7 % (45-73); Platelet Count 384 X10*3/uL (160-400); Red Blood Count 3.94 X10*6/uL (4.20-5.50); Red Cell Distribution Width 17.4 % (11.0-16.0); White Blood Count 9.8 X10*3/uL (4.8-10.8)
[2023-12-03 17:59] LABS: Iron 22 mcg/dL (30-160); Percent Iron Saturation 5 % (15-50); Total Iron Binding Capacity 487 mcg/dL (228-428); Unsaturated Iron Binding 465 ug/dL
== END 2023-12-03 15:24 | disposition home or self-care (01) ==
LOC: HO.LAB 15:23
PROVIDERS: PCP Internal Medicine; Visit Provider Clinical Nurse Specialist Psychiatric/Mental Health, Adult
DX: D64.9 Anemia, unspecified (principal); Z79.899 Other long term (current) drug therapy
CPT/HCPCS: 36415; 83540; 85025

== ENCOUNTER 2023-12-25 12:53 | Outpatient (REF) | payer MEDICAID, SELFPAY ==
[2023-12-25 13:06] LABS: MANUAL DIFF FLAG NO
[2023-12-25 13:53] LABS: Basophils Percent Auto 0.3 % (0-2); Eosinophils Absolute Auto 0.1 X10*3/uL (0.0-0.4); Eosinophils Percent Auto 1.1 % (0-4); Hematocrit 26.8 % (37.0-47.0); Hemoglobin 7.9 g/dl (12.0-16.0); Imm Gran Abs Auto 0.09 X10*3/uL (0.00-0.03); Imm Gran Pct Auto 0.9 % (0.0-0.4); Lymphocytes Absolute Auto 2.1 X10*3/uL (1.2-4.9); Lymphocytes Percent Auto 21.1 % (20-40); Mean Corpuscular HGB Conc 29.5 g/dl (31.0-35.0); Mean Corpuscular Hemoglobin 22.4 pg (27.0-33.0); Mean Corpuscular Volume 75.9 fL (80.0-98.0); Monocytes Absolute Auto 0.8 X10*3/uL (0.1-1.2); Monocytes Percent Auto 8.1 % (2-11); NRBC Pct Auto 0.2 /100WBC (0.0-0.2); Neutrophils Absolute Auto 6.8 x10*3/uL (2.0-8.3); Neutrophils Percent Auto 68.5 % (45-73); Platelet Count 326 X10*3/uL (160-400); Red Blood Count 3.53 X10*6/uL (4.20-5.50); White Blood Count 9.9 X10*3/uL (4.8-10.8)
== END 2023-12-25 12:54 | disposition home or self-care (01) ==
LOC: HO.LABR 12:53
PROVIDERS: PCP Internal Medicine; Visit Provider Clinical Nurse Specialist Psychiatric/Mental Health, Adult
DX: Z79.899 Other long term (current) drug therapy (principal)
CPT/HCPCS: 36415; 85025

== ENCOUNTER 2024-01-28 13:55 | Outpatient (REF) | payer MEDICAID, SELFPAY ==
[2024-01-28 15:42] LABS: Red Cell Distribution Width 19.6 % (11.0-16.0); SCAN SMEAR FLAG 1
[2024-01-28 15:44] LABS: Basophils Percent Auto 0.4 % (0-2); Eosinophils Absolute Auto 0.1 X10*3/uL (0.0-0.4); Eosinophils Percent Auto 1.1 % (0-4); Hematocrit 28.4 % (37.0-47.0); Imm Gran Abs Auto 0.08 X10*3/uL (0.00-0.03); Imm Gran Pct Auto 0.8 % (0.0-0.4); Lymphocytes Absolute Auto 2.5 X10*3/uL (1.2-4.9); Lymphocytes Percent Auto 26.1 % (20-40); MANUAL DIFF FLAG SCAN; Mean Corpuscular HGB Conc 28.2 g/dl (31.0-35.0); Mean Corpuscular Hemoglobin 20.8 pg (27.0-33.0); Mean Platelet Volume 11.2 fL (9.4-12.3); Monocytes Absolute Auto 0.8 X10*3/uL (0.1-1.2); Monocytes Percent Auto 8.1 % (2-11); NRBC Pct Auto 0.4 /100WBC (0.0-0.2); Neutrophils Absolute Auto 6.1 x10*3/uL (2.0-8.3); Neutrophils Percent Auto 63.5 % (45-73); Platelet Count 354 X10*3/uL (160-400); Red Blood Count 3.84 X10*6/uL (4.20-5.50); White Blood Count 9.7 X10*3/uL (4.8-10.8)
[2024-01-28 15:49] LABS: PLT ABN DIST 1
[2024-01-28 16:09] LABS: SLIDE REVIEW VERIFIED
== END 2024-01-28 13:56 | disposition home or self-care (01) ==
LOC: HO.LAB 13:55
PROVIDERS: Visit Provider Clinical Nurse Specialist Psychiatric/Mental Health, Adult
DX: Z79.899 Other long term (current) drug therapy (principal)
CPT/HCPCS: 36415; 85025

== ENCOUNTER 2024-03-04 11:57 | Outpatient (REF) | payer MEDICAID, SELFPAY ==
[2024-03-04 12:20] LABS: MANUAL DIFF FLAG NO
[2024-03-04 12:33] LABS: Basophils Percent Auto 0.5 % (0-2); Eosinophils Absolute Auto 0.1 X10*3/uL (0.0-0.4); Eosinophils Percent Auto 1.3 % (0-4); Hematocrit 27.1 % (37.0-47.0); Hemoglobin 7.5 g/dl (12.0-16.0); Imm Gran Abs Auto 0.09 X10*3/uL (0.00-0.03); Imm Gran Pct Auto 1.1 % (0.0-0.4); Lymphocytes Percent Auto 24.7 % (20-40); Mean Corpuscular HGB Conc 27.7 g/dl (31.0-35.0); Mean Corpuscular Hemoglobin 19.8 pg (27.0-33.0); Mean Corpuscular Volume 71.7 fL (80.0-98.0); Mean Platelet Volume 11.1 fL (9.4-12.3); Monocytes Absolute Auto 0.6 X10*3/uL (0.1-1.2); Monocytes Percent Auto 7.1 % (2-11); NRBC Pct Auto 0.9 /100WBC (0.0-0.2); Neutrophils Absolute Auto 5.4 x10*3/uL (2.0-8.3); Neutrophils Percent Auto 65.3 % (45-73); Platelet Count 317 X10*3/uL (160-400); Red Blood Count 3.78 X10*6/uL (4.20-5.50); Red Cell Distribution Width 21.1 % (11.0-16.0); White Blood Count 8.2 X10*3/uL (4.8-10.8)
== END 2024-03-04 11:58 | disposition home or self-care (01) ==
LOC: HO.LABR 11:57
PROVIDERS: Visit Provider Clinical Nurse Specialist Psychiatric/Mental Health, Adult
DX: Z79.899 Other long term (current) drug therapy (principal)
CPT/HCPCS: 36415; 85025

== ENCOUNTER 2024-03-24 09:21 | Outpatient (AMB) | payer MEDICAID, SELFPAY ==
[2024-03-24 09:24] VITALS: BP 118/72; PULSE 97; BMI 34.4
--- NOTE | 2024-03-24 09:24 | A.OFFVIS_ITS ---
Vital Signs 03/24/24 09:24 Height 5 ft 2 in Weight 187 lb 13.341 oz BMI 34.4 BP 118/72 Blood Pressure Location Lt brachial Position Sitting Pulse 97 Pulse Source Monitor Intake Visit Reasons: f/up Manager Auto: Manager Auto Present Allergies diazepam [From Valium] Allergy (Unknown, Verified 03/24/24 09:27) Unknown haloperidol [From Haldol] Allergy (Unknown, Verified 03/24/24 09:27) Unknown Penicillins Allergy (Unknown, Verified 03/24/24 09:27) Unknown risperidone [From Risperdal] Allergy (Unknown, Verified 03/24/24 09:27) Unknown aspirin [Aspirin] Adverse Reaction (Intermediate, Verified 03/24/24 09:27) Vomiting trazodone [TRAZODONE] Adverse Reaction (Intermediate, Verified 03/24/24 09:27) NAUSEA & VOMITING Medication List - Last Reconciled 03/24/24 by RILEY Valiente albuterol sulfate 90 mcg/actuation (Ventolin HFA) 2 puffs inhalation Q4-6H PRN albuterol sulfate 2.5 mg inhalation Q4H PRN capsaicin 0.025% 1 appl See Protocol topical QID PRN clonazepam 0.5 mg PO QAM clonazepam 1 mg PO BEDTIME clozapine 300 mg (3 x 100 mg) PO BEDTIME clozapine 325 mg (13 x 25 mg) PO BEDTIME clozapine 50 mg PO QAM diltiazem HCl CD 120 mg PO DAILY divalproex ER 1,250 mg PO QPM docusate sodium 100 mg PO BID PRN fluoxetine 30 mg (3 x 10 mg) PO DAILY fluticasone propionate 110 mcg/actuation (Flovent HFA) 2 puffs inhalation BID lisinopril 10 mg PO QPM loratadine 10 mg PO DAILY magnesium hydroxide (Milk of Magnesia) 400 mg (5 mL) PO BEDTIME PRN metformin ER 500 mg PO BID montelukast 10 mg PO DAILY omeprazole 20 mg PO BID peg-electrolyte soln 420 gram 240 mL PO Q10M polyethylene glycol 3350 17 grams PO TID PRN sennosides (senna) 17.2 mg PO BEDTIME PRN sucralfate 1 g PO TID tramadol 50 mg PO TID PRN HPI HPI f/up: Details: Brenna is a 58-year-old female with past medical history of hyperlipidemia, obesity, COPD, sinus tachycardia, anemia who presents for follow-up. Today she presents with her [facility]NOTE 3[facility] skilled nursing case manager who is assisting with translation at their request. Patient denies any chest discomfort at rest or with activity. She denies any recent issues with her breathing. No PND, orthopnea or edema. No palpitations, lightheadedness, presyncope, syncope, falls. She has had an issue with fatigue. No bleeding reported in urine or stool. Minor abdominal discomfort at times. Takes her meds as directed. [facility] Medical History Diabetes Morbid obesity due to excess calories Anxiety Chronic mental illness COPD (chronic obstructive pulmonary disease) Hyperlipidemia Schizophrenia Asthma Surgical History Hx of colonoscopy History of tubal ligation H/O right knee surgery History of appendectomy Family History Father Throat cancer Mother CVA (cerebral vascular accident) Brother Drug overdose Sister No problems noted. Sister No problems noted. Son No problems noted. Son No problems noted. 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: Unknown / Unable to assess Household Members Other:: Lanny Soto, Inocencio Soto, - foster parents Housing: House Do you presently have visiting nurse or other home services: Yes (Meds administered by [facility][NOTE 3]) Unable to assess alcohol history related to: Unknown Alcohol intake: never Comment: pt resting with eyes closed Patient Tobacco Use Status: Current everyday Tobacco user Tobacco use type: Cigarette Cigarettes Per Day: 6 e-Cigarette/Vaping Use: Never Used Second Hand Smoke Exposure: No Advance Directives Date on File: 12/13/22 service: No Current occupational status: disabled Sexual orientation: Straight/Heterosexual Review of Systems Const All systems reviewed & are unremarkable except as noted in HPI and below ENT Denies dizziness Card Denies chest pain, Denies chest pain at rest, Denies chest pain with activity, Denies rapid heart rate, Denies pedal edema, Denies edema, Denies leg edema, Denies lightheadedness, Denies palpitations, Reports dyspnea, Denies dyspnea on exertion and Denies orthopnea Resp Denies cough, Reports dyspnea and Denies dyspnea on exertion GI Reports abdominal pain, Denies hematochezia and Denies change in stool character Musc Denies abnormal gait, Denies limited range of motion, Denies muscle cramps, Denies muscle weakness, Denies numbness, Denies radiating pain into limb, Denies stiffness and Denies tingling Neuro Denies abnormal gait, Denies dizziness, Denies numbness and Denies tingling Endo Denies palpitations Physical Exam Vital Signs: Last Vital Signs Pulse 97 03/24/24 09:24 BP 118/72 03/24/24 09:24 BMI result Body Mass Index 34.4 Const General: cooperative, healthy appearing, comfortable and no acute distress Orientation/consciousness: patient oriented x3 Neck Neck: Yes normal visual inspection and Yes no JVD Resp Effort & Inspection: normal respiratory effort Auscultation: clear to auscultation bilaterally, no rales, no rhonchi and no wheezes Cardio Jugular venous distension: no JVD Rate: regular rate Rhythm: regular rhythm Heart sounds: S1 normal heart sound present, S2 normal heart sound present, no murmurs and no rubs Neuro General: patient oriented x3 Extrem General: Yes normal to inspection and No no pedal edema Psych Appearance: grossly normal Mental Status: mental status grossly normal Speech and movement: Normal speech and movement present Office Procedures EKG Details: Today, read by me, normal sinus rhythm, no acute ST or T-wave abnormalities, rate 97, QTC 439 milliseconds [id number], Complete Assessment & Plan Assessment & Plan (1) Tachycardia: Code(s): R00.0 - Tachycardia, unspecified Category: Medical Plan: Prior evaluation for sinus tachycardia. An echocardiogram was done 05/11/2023 showed EF 50-55%, grade 1 diastolic dysfunction, normal valves. A Holter monitor was done on 05/16/2023 for 2 days showing sinus tach with average heart rate 106, 68% of the time heart rate greater than 100. She was put on diltiazem CD 120 mg daily. Labs 08/08/2023 showed TSH 1.88, she had mild anemia at that time. She has seen GI in the past for gastritis. Today she reports no issues with heart palpitations. Her EKG today is showing sinus rhythm with no acute ST or T-wave abnormalities, rate 97. Labs done on 03/04/2024 shows hemoglobin 7.5, hematocrit 27.1. This is lower than prior values. It looks like she has a upper endoscopy planned for 03/26/2024 and GI follow-up. She denies any issues with active bleeding at this time. She is reporting fatigue which is most likely related to her significant anemia. She has a mildly elevated heart rate which is likely related to anemia as well. She can continue on her low-dose diltiazem at this time. No need for repeat cardiac testing at present. Cardiology follow-up 1 year, sooner if needed. (2) Anemia: Code(s): D64.9 - Anemia, unspecified Category: Medical Plan: As above (3) Hypertension: Code(s): I10 - Essential (primary) hypertension Category: Medical Plan: Well controlled at present. No med changes made. Plan Time spent on chart review, documentation, interview and assessment Coding Level of Care Code Est Pt Level 3 (33434) Diagnoses Tachycardia R00.0 Anemia D64.9 Hypertension I10 CPT Codes EKG - CPT: 88915-[id number], Complete ([id number]) Time Spent (min) 24
== END 2024-03-24 09:51 | disposition home or self-care (01) ==
PROVIDERS: PCP Internal Medicine; Visit Provider Nurse Practitioner Family
DX: R00.0 Tachycardia, unspecified (principal); D64.9 Anemia, unspecified; I10 Essential (primary) hypertension
CPT/HCPCS: 93010; 99213

== ENCOUNTER → 2024-03-24 09:21 | Outpatient (BNVA) | payer MEDICAID, SELFPAY | PROVIDERS: PCP Internal Medicine; Visit Provider Nurse Practitioner Family | DX: I10 Essential (primary) hypertension (principal); E78.5 Hyperlipidemia, unspecified; E66.9 Obesity, unspecified; R00.0 Tachycardia, unspecified; D64.9 Anemia, unspecified | CPT/HCPCS: 93005; 99212 ==

== ENCOUNTER 2024-03-28 13:41 | Inpatient (IN) | payer MEDICAID, SELFPAY ==
--- NOTE | ~2024-03-28 | NM_ITS ---
EXAMINATION: BILIARY TRACT IMAGING STUDY WITH CCK CLINICAL INFORMATION: Upper and mid abdominal pain.. COMPARISON: CT of the abdomen and pelvis and right upper quadrant abdominal ultrasound done on 04/07/2024.. TECHNIQUE: Serial gamma scintillation camera images were obtained over the abdomen for a total observation period of 60 minutes following the intravenous administration of 5.0 mCi Tc-99m mebrofenin. FINDINGS: There is good concentration of activity in the liver by 5 minutes post injection. Biliary activity is visualized by 10 minutes. The gallbladder is well visualized by 20 minutes. Small bowel is well visualized by 82 minutes. At 60 minutes post radiopharmaceutical injection, a 30-minute infusion of 1.7 micrograms Sincalide was then begun and an additional 40 minutes of images were obtained. There is near normal emptying of the gallbladder. By the end of the study there is good clearance of activity from the liver and visualization of diffuse small bowel activity. The calculated gallbladder ejection fraction is 34% (Normal range of gallbladder ejection fraction is between 35-80%; GBEF <35% is considered biliary hypokinesia and >80% is considered biliary hyperkinesia; Ref. #1-Clinical Journal of Gastroenterology (2020) 14:1308?1317; Ref.#2-[email or web address]). NM/NM hepatobiliary w pharm IMPRESSION: Visualization of the gallbladder is evidence of a patent cystic duct and strong evidence against the diagnosis of acute cholecystitis. The common bile duct is patent. Gallbladder emptying and ejection fraction are nearly lower range of normal (34%). Liver function appears normal.
--- NOTE | ~2024-03-28 | US_ITS ---
EXAMINATION: US ABDOMEN LIMITED CLINICAL INFORMATION: Epigastric pain. COMPARISON: Abdominal ultrasound 12/13/2022. TECHNIQUE: Real-time imaging of the gallbladder. FINDINGS: Contracted gallbladder limiting evaluation. No discrete cholelithiasis or significant wall thickening. No pericholecystic free fluid. Technologist reported a positive Vargas's sign. No evidence of biliary ductal dilatation, the common bile duct measures 0.2 cm in diameter. US/US abdomen limited IMPRESSION: Technologist reported a positive Vargas's sign, however, there is no evidence of cholelithiasis or gallbladder wall thickening to suggest acute cholecystitis. If there is clinical concern for acute cholecystitis, correlation with a CT of the abdomen could be obtained.
--- NOTE | ~2024-03-28 | CT_ITS ---
EXAMINATION: CT ABDOMEN AND PELVIS WITH CONTRAST CLINICAL INFORMATION: Upper and mid abdominal pain. COMPARISON: Abdominal ultrasound dated 03/28/2024; CT abdomen and pelvis dated 12/11/2022. TECHNIQUE: Multidetector volumetric images were obtained from the superior aspect of the liver through the pubic symphysis following administration 85 mL of Omnipaque 350 intravenous contrast. Sagittal and coronal reformatted images were obtained on the technologist's workstation. Oral contrast: No This CT examination was performed using dose optimization techniques as appropriate, variously including the following: *Automated exposure control *Adjustment of mA and/or kV according to patient size (this includes techniques or standardized protocols for targeted exams where dose is matched to indication/reason for exam; i.e. extremities or head) *Use of iterative reconstruction technique DLP: 716 mGy-cm FINDINGS: LUNG BASES: The visualized lung bases are unremarkable. LIVER, GALLBLADDER, AND BILIARY TREE: The liver is normal in size, shape, and attenuation. No focal hepatic lesion or biliary ductal dilatation is present. The gallbladder is unremarkable with no evidence of radiopaque gallstones, gallbladder wall thickening, or obvious pericholecystic inflammatory changes. PANCREAS: Unremarkable. SPLEEN: Unremarkable. ADRENAL GLANDS: Unremarkable. KIDNEYS AND URETERS: The kidneys are normal in size, shape, and attenuation. No hydronephrosis, hydroureter, or calculi seen. No perinephric stranding. BLADDER: Unremarkable. GASTROINTESTINAL TRACT: There is a large stool burden, suggesting constipation. No obstruction, free intraperitoneal air or abscess is seen. No focal bowel wall thickening is seen. There is no diverticulosis or diverticulitis. The appendix is not identified with certainty; however, there is no finding to suggest appendicitis. ABDOMINAL WALL: No significant hernia is appreciated. LYMPH NODES: Normal. VASCULAR: Unremarkable. PELVIC VISCERA: Unremarkable. OSSEOUS STRUCTURES: There is multi-level thoracic spondylosis. No acute or aggressive osseous finding is noted. CT/CT abdomen pelvis w IV con IMPRESSION: There is a large stool burden, suggesting constipation. No mark obstruction is noted. There is no free intraperitoneal air or abscess. The vermiform appendix is again not identified. No diverticulosis or diverticulitis is seen. Fleischner guidelines were followed.
[2024-03-28 13:53] VITALS: BP 143/61; PULSE 104; RESP 18; TEMP 36.9; O2SAT 94; BMI 35.0
--- NOTE | 2024-03-28 13:54 | ED.ABDPAIN ---
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 Patient states over the past 3 days she has had constant, sharp, cramping upper abdominal pain. It is worse when she eats food. She has had a history of similar symptoms in the past. She denies any fevers or chills nausea or vomiting. She does have a history of constipation but states that she is compliant with her medications for this. She was able to have a last bowel movement earlier today. She denies any hematochezia or melena. She does report feeling lightheaded over the past 5 days. She has not take any NSAID use. She is followed by Dr. Arias from GI. Patient reports that she is otherwise feeling well. He is urinating without difficulty. She denies any trauma. Patient is status post appendectomy and tubal ligation. Patient is being planned for an upper and lower endoscopy. Related Data Home Medications ?Medication ?Instructions ?Recorded ?Confirmed sennosides 8.6 mg tablet (senna) 17.2 mg PO BEDTIME PRN constipation 12/13/22 03/24/24 albuterol sulfate 2.5 mg/3 mL 2.5 mg inhalation Q4H PRN wheezing 06/18/23 03/24/24 (0.083 %) solution for nebulization albuterol sulfate 90 mcg/actuation 2 puff inhalation Q4-6H PRN 06/18/23 03/24/24 aerosol inhaler (Ventolin HFA) Shortness Of Breath Or Wheezing fluticasone propionate 110 2 puff inhalation BID 06/18/23 03/24/24 mcg/actuation HFA aerosol inhaler (Flovent HFA) sucralfate 1 gram tablet 1 g PO TID 06/18/23 03/24/24 tramadol 50 mg tablet 50 mg PO TID PRN Pain, Moderate 06/18/23 03/24/24 polyethylene glycol 3350 17 gram 17 g PO TID PRN 08/10/23 03/24/24 oral powder packet divalproex 500 mg tablet,extended 1,250 mg PO QPM 10/01/23 03/24/24 release 24 hr Previous Rx's ?Medication ?Instructions ?Recorded magnesium hydroxide 400 mg/5 mL 400 mg (5 mL) PO BEDTIME PRN 12/15/22 oral suspension (Milk of Magnesia) constipation #355 mL capsaicin 0.025 % topical cream 1 appl topical QID PRN Pain, Mild 07/02/23 (Pain Scale 1-3) #100 applicators clonazepam 0.5 mg tablet 0.5 mg PO QAM #30 tabs 07/02/23 clonazepam 1 mg tablet 1 mg PO BEDTIME #30 tabs 07/02/23 clozapine 100 mg tablet 300 mg (3 x 100 mg) PO BEDTIME #90 07/02/23 tabs clozapine 25 mg tablet 325 mg (13 x 25 mg) PO BEDTIME #30 07/02/23 tabs clozapine 50 mg tablet 50 mg PO QAM #30 tabs 07/02/23 docusate sodium 100 mg capsule 100 mg PO BID PRN Constipation #60 07/02/23 caps fluoxetine 10 mg capsule 30 mg (3 x 10 mg) PO DAILY #90 caps 07/02/23 lisinopril 10 mg tablet 10 mg PO QPM #30 tabs 07/02/23 loratadine 10 mg tablet 10 mg PO DAILY #30 tabs 07/02/23 metformin 500 mg tablet,extended 500 mg PO BID #60 tabs 07/02/23 release 24 hr montelukast 10 mg tablet 10 mg PO DAILY #30 tabs 07/02/23 omeprazole 20 mg capsule,delayed 20 mg PO BID #60 caps 07/02/23 release peg-electrolyte solution 420 gram 240 ml PO Q10M #4,000 mL 08/10/23 oral solution diltiazem HCl 120 mg 120 mg PO DAILY #30 caps 02/25/24 capsule,extended release 24 hr bisacodyl 5 mg tablet,delayed 20 mg (4 x 5 mg) PO ONCE 1 day #4 03/25/24 release (Dulcolax (bisacodyl)) tabs peg 3350-electrolytes 236 240 ml PO Q10M #4,000 mL 03/25/24 gram-22.74 gram-6.74 gram-5.86 gram solution Allergies Allergy/AdvReac Type Severity Reaction Status Date / Time diazepam [From Valium] Allergy Unknown Unknown Verified 03/28/24 13:58 haloperidol [From Haldol] Allergy Unknown Unknown Verified 03/28/24 13:58 Penicillins Allergy Unknown Unknown Verified 03/28/24 13:58 risperidone [From Risperdal] Allergy Unknown Unknown Verified 03/28/24 13:58 aspirin [Aspirin] AdvReac Intermediate Vomiting Verified 03/28/24 13:58 trazodone [TRAZODONE] AdvReac Intermediate NAUSEA & Verified 03/28/24 13:58 VOMITING Review of Systems Constitutional: Denies chills, Denies fever(s) and Denies headache(s) Denies headache(s) Cardiovascular: Denies chest pain, Denies dyspnea, Denies dyspnea on exertion and Denies orthopnea Respiratory: Denies cough, Denies dyspnea and Denies dyspnea on exertion Gastrointestinal: Reports abdominal pain, Denies melena, Denies hematochezia, Denies diarrhea, Denies nausea and Denies vomiting Genitourinary: Denies dysuria and Denies urinary urgency Musculoskeletal: Denies back pain Denies headache(s) Psychiatric: Denies depression ON LICENSE OF [facility] Past Medical History Medical History Diabetes Morbid obesity due to excess calories Anxiety Chronic mental illness COPD (chronic obstructive pulmonary disease) Hyperlipidemia Schizophrenia Asthma Surgical History Hx of colonoscopy History of tubal ligation H/O right knee surgery History of appendectomy Family History Family History Father Throat cancer Mother CVA (cerebral vascular accident) Brother Drug overdose Sister No problems noted. Sister No problems noted. Son No problems noted. Son No problems noted. Social History 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: Unknown / Unable to assess Household Members Other:: Lanny Soto, Inocencio Soto, - foster parents Housing: House Do you presently have visiting nurse or other home services: Yes (Meds administered by [facility]) Unable to assess alcohol history related to: Unknown Alcohol intake: never Comment: pt resting with eyes closed Patient Tobacco Use Status: Current everyday Tobacco user Tobacco use type: Cigarette Cigarettes Per Day: 6 e-Cigarette/Vaping Use: Never Used Second Hand Smoke Exposure: No Advance Directives: Yes Advance Directives on File: Yes Advance Directives Date on File: 12/13/22 Do you have a plan to hurt others: No Plan service: No Current occupational status: disabled Sexual orientation: Straight/Heterosexual Physical Exam ED Vital Signs: Vital Signs - 24 hr 03/28/24 13:53 03/28/24 18:46 Temperature 98.5 F 98.7 F Pulse Rate 104 H 90 Respiratory Rate 18 18 Blood Pressure 143/61 H 158/84 H Pulse Oximetry 94 95 Oxygen Delivery Method Room Air Room Air BMI result Body Mass Index 35.0 Const General: cooperative, no acute distress, alert and awake Resp Other: Lung sounds are clear throughout. No wheezes rales or rhonchi Cardio Other: Regular rate and rhythm GI Other: Mild diffuse upper abdominal tenderness. No peritoneal signs. No right upper quadrant tenderness. No Vargas's sign. Rectal exam with female staff member Zeina present. No external hemorrhoids. Normal rectal tone. There is light brown stool in the rectal vault. Occult test obtained. Course Course Course Narrative: This is an RME: Additional HPI, ROS, PE not included below will be deferred to primary provider. RME assessment and note performed by: Alivia Fritz PA-C This is a 58 year old female, with a hx of diabetes, HTN, COPD and schizophrenia, who presents to the ER with complaints of AP x 4 days. Reporting some constipation, last moved bowels this AM. Reporting pain is in the epigastric region. Plan: Labs, UA, US Reevaluation(s) Reevaluation #1: 9:15 p.m., March 28, 2024 patient resting comfortably at this time. Awaiting CT results. Dr. Olivo notified and will see the patient for transfer of care. 9:[address] results returned, constipation is noted. Dr. Olivo notified. Medical Decision Making Medical Decision Making MDM Narrative: 58-year-old female who has a history of schizophrenia, diabetes, hypertension, COPD, constipation, presents emergency department for upper abdominal pain for the past 3 days as well as a 5 day history of lightheadedness. Patient confirms a history of anemia for which she is being followed by Dr. Tayyub and is in the process of being scheduled for an upper and lower endoscopy. Patient is hemodynamically stable. She has not had any nausea vomiting or diarrhea. Despite the patient's history of constipation, she has been able to move her bowels with her last time earlier today. Reviewed ultrasound from earlier today without any acute process. Will check CT of the abdomen and pelvis. Patient was given IV fluids and analgesia. Given that the patient is symptomatic with her anemia, blood transfusion will be initiated. Consent obtained. Differential Diagnosis Differential Diagnoses: The differential diagnosis associated with the presentation includes Upper GI bleed Lower GI bleed Peptic ulcer disease Symptomatic anemia Metabolic abnormality Admission/Observation Consideration of admission/observation: Escalation of care including admission/observation considered Consult Healthcare Provider Management of the patient was discussed with: Hospitalist Lab Data MDM Lab Attestation statement: I reviewed the patient's lab results. 03/28/24 14:23 03/28/24 14:23 Labs: Lab Results 03/28/24 03/28/24 03/28/24 Range/Units 14:23 15:24 19:10 WBC 9.4 (4.8-10.8) X10*3/uL RBC 3.39 L (4.20-5.50) X10*6/uL Hgb 6.5 L* (12.0-16.0) g/dl Hct 23.6 L (37.0-47.0) % MCV 69.6 L (80.0-98.0) fL MCH 19.2 L (27.0-33.0) pg MCHC 27.5 L (31.0-35.0) g/dl RDW 22.4 H (11.0-16.0) % Plt Count 315 (160-400) X10*3/uL MPV 10.6 (9.4-12.3) fL Immature Gran % (Auto) 1.5 H (0.0-0.4) % Neut % (Auto) 66.1 (45-73) % Lymph % (Auto) 23.6 (20-40) % [place] % (Auto) 7.4 (2-11) % Eos % (Auto) 1.1 (0-4) % Baso % (Auto) 0.3 (0-2) % Lymph # (Auto) 2.2 (1.2-4.9) X10*3/uL [place] # (Auto) 0.7 (0.1-1.2) X10*3/uL Eos # (Auto) 0.1 (0.0-0.4) X10*3/uL Baso # (Auto) 0.0 (0.0-0.2) X10*3/uL Abs Immat Gran (auto) 0.14 H (0.00-0.03) X10*3/uL Absolute Neuts (auto) 6.2 (2.0-8.3) x10*3/uL Absolute Nucleated RBC 0.080 H (0.0-0.012) X10*3/uL Nucleated RBC % (auto) 0.9 H (0.0-0.2) /100WBC Smear Tech's Comments VERIFIED Sodium 140 (135-145) mmol/L Potassium 3.9 (3.3-5.1) mmol/L Chloride 104 (96-108) mmol/L Carbon Dioxide 26 (22-29) mmol/L Anion Gap 14 (12-20) BUN 10 (9-16) mg/dL Creatinine 0.55 (0.5-1.4) mg/dL Estim Creat Clear Calc 109.7 Estimated GFR > 60 Random Glucose 143 H (60-115) mg/dL Calcium 8.8 D (8.4-10.2) mg/dL Magnesium 1.8 (1.6-2.6) mg/dL Total Bilirubin 0.3 (0.0-1.0) mg/dL Direct Bilirubin 0.1 (0.0-0.5) mg/dL AST 12 (5-31) U/L ALT 16 (0-31) U/L Alkaline Phosphatase 77 (39-117) U/L Troponin I High Sens < 2.7 (<3.5-17.0) ng/L Total Protein 6.5 (6.5-8.0) g/dL Albumin 3.7 (3.5-5.0) g/dL Lipase 21 (8-78) U/L Urine Color Yellow Urine Appearance Clear Urine pH 6.0 (5.0-9.0) Ur Specific [place] 1.020 (1.005-1.025) Urine Protein Negative (Neg-Trace) mg/dL Urine Glucose (UA) Negative (Negative) mg/dL Urine Ketones Trace (Negative) mg/dL Urine Blood Negative (Negative) Urine Nitrite Negative (Negative) Ur Leukocyte Esterase Trace H (Negative) Urine RBC 0-2 (0-2) /HPF Urine WBC 0-5 (0-5) /HPF Ur Squamous Epith Cells 3-5 (0-2) /HPF Urine Bacteria None Seen (None Seen) Hyaline Casts 0-2 (0-2) /LPF Stool Occult Blood NEGATIVE (NEGATIVE) Influenza Type A (PCR) NEGATIVE (Negative) Influenza Type B (PCR) NEGATIVE (Negative) RSV RNA Qual (PCR) NEGATIVE (Negative) SARS-CoV-2 RNA (RT-PCR) NEGATIVE (Negative) Blood Type O Positive Antibody Screen NEGATIVE Crossmatch See Detail Radiology Impression Discussion of test interpretation with radiology: I have reviewed the radiologist's reading. Radiologist Impression: [place] [id number] CT Scan Report Signed Patient: Brenna Hope MR#: [id number] : 1965 Acct:[id number] Age/Sex: 58 / F ADM Date: 03/28/24 Loc: HO.ED Attending Dr: Ordering Physician: Jose Wall Date of Service: 03/28/24 Procedure(s): CT abdomen pelvis w IV con Accession Number(s): [id number] cc: Brenna Liriano MD; Jose Wall~ EXAMINATION: CT ABDOMEN AND PELVIS WITH CONTRAST CLINICAL INFORMATION: Upper and mid abdominal pain. COMPARISON: Abdominal ultrasound dated 03/28/2024; CT abdomen and pelvis dated 12/11/2022. TECHNIQUE: Multidetector volumetric images were obtained from the superior aspect of the liver through the pubic symphysis following administration 85 mL of Omnipaque 350 intravenous contrast. Sagittal and coronal reformatted images were obtained on the technologist's workstation. Oral contrast: No This CT examination was performed using dose optimization techniques as appropriate, variously including the following: *Automated exposure control *Adjustment of mA and/or kV according to patient size (this includes techniques or standardized protocols for targeted exams where dose is matched to indication/reason for exam; i.e. extremities or head) *Use of iterative reconstruction technique DLP: 716 mGy-cm FINDINGS: LUNG BASES: The visualized lung bases are unremarkable. LIVER, GALLBLADDER, AND BILIARY TREE: The liver is normal in size, shape, and attenuation. No focal hepatic lesion or biliary ductal dilatation is present. The gallbladder is unremarkable with no evidence of radiopaque gallstones, gallbladder wall thickening, or obvious pericholecystic inflammatory changes. PANCREAS: Unremarkable. SPLEEN: Unremarkable. ADRENAL GLANDS: Unremarkable. KIDNEYS AND URETERS: The kidneys are normal in size, shape, and attenuation. No hydronephrosis, hydroureter, or calculi seen. No perinephric stranding. BLADDER: Unremarkable. GASTROINTESTINAL TRACT: There is a large stool burden, suggesting constipation. No obstruction, free intraperitoneal air or abscess is seen. No focal bowel wall thickening is seen. There is no diverticulosis or diverticulitis. The appendix is not identified with certainty; however, there is no finding to suggest appendicitis. ABDOMINAL WALL: No significant hernia is appreciated. LYMPH NODES: Normal. VASCULAR: Unremarkable. PELVIC VISCERA: Unremarkable. OSSEOUS STRUCTURES: There is multi-level thoracic spondylosis. No acute or aggressive osseous finding is noted. CT/CT abdomen pelvis w IV con IMPRESSION: There is a large stool burden, suggesting constipation. No mark obstruction is noted. There is no free intraperitoneal air or abscess. The vermiform appendix is again not identified. No diverticulosis or diverticulitis is seen. Fleischner guidelines were followed. 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: ALEX External Record Review External record reviewed: Inpatient record and Outpatient record Prescription Management I considered prescription management with: Pain Medication Chronic Conditions Patient?s care impacted by: Diabetes and Hypertension Medications Administered Generic Name Dose Route Start Last Admin Trade Name Freq PRN Reason Stop Dose Admin Morphine Sulfate 2 mg 03/28/24 22:25 03/28/24 22:37 Morphine Sulfate 2 Mg/Ml Cartridge IVPUSH 2 mg Q4H PRN Administration Pain, Severe (Pain Scale 7-10) Protocol Discontinued Medications Generic Name Dose Route Start Last Admin Trade Name Freq PRN Reason Stop Dose Admin Sodium Chloride 100 mls @ 100 mls/hr 03/28/24 19:39 03/28/24 22:29 Ns IV 03/28/24 20:38 100 mls/hr ONCE ONE Administration Iohexol 100 ml 03/28/24 19:43 03/28/24 19:44 Iohexol 350 Mg/Ml 100 Ml Infus..Btl IV 03/28/24 19:44 85 ml ONCE ONE Administration Morphine Sulfate 4 mg 03/28/24 19:31 03/28/24 20:03 Morphine Sulfate 4 Mg/Ml Cartridge IVPUSH 03/28/24 19:32 4 mg ONCE ONE Administration Protocol Sodium Biphosphate/Sodium Phosphate 133 ml 03/28/24 22:03 03/28/24 22:36 Sodium Phosphate,[place]-Dibasic 133 Ml Enema SD 03/28/24 22:04 133 ml ONCE ONE Administration Discharge Plan Discharge Clinical Impression: Anemia Qualifiers: Anemia type: unspecified type Qualified Code(s): D64.9 - Anemia, unspecified Patient Disposition: Admitted As Inpatient
--- NOTE | 2024-03-28 13:57 | ECG_ITS ---
Test Reason : EPIGASTRIC PAIN Blood Pressure : / mmHG Vent. Rate : 101 BPM Atrial Rate : 101 BPM P-R Int : 128 ms QRS Dur : 080 ms QT Int : 348 ms P-R-T Axes : 053 022 -06 degrees QTc Int : 451 ms Sinus tachycardia Nonspecific T wave abnormality Abnormal ECG When compared with ECG of 20-JUN-2023 09:51, Nonspecific T wave abnormality now evident in Lateral leads Referred By: Alivia Fritz Electronically Signed By:DELISA MOON MD
[2024-03-28 14:29] LABS: Appearance Urine Clear; Color Urine Yellow; Glucose Urine UA Negative (Negative); Leukocyte Esterase Urine Trace (Negative); Nitrite Urine Negative (Negative); UMIC TRIGGER UACC YES; Urine Blood Negative (Negative); Urine Ketones Trace mg/dL (Negative); Urine Protein Negative (Neg-Trace)
[2024-03-28 14:31] LABS: Bacteria Urine None Seen (None Seen); Hyaline Casts Urine 0-2 /LPF (0-2); RBC Urine 0-2 /HPF (0-2); WBC Urine 0-5 /HPF (0-5)
[2024-03-28 14:36] LABS: Basophils Percent Auto 0.3 % (0-2); Eosinophils Absolute Auto 0.1 X10*3/uL (0.0-0.4); Eosinophils Percent Auto 1.1 % (0-4); Hematocrit 23.6 % (37.0-47.0); Imm Gran Abs Auto 0.14 X10*3/uL (0.00-0.03); Imm Gran Pct Auto 1.5 % (0.0-0.4); Lymphocytes Absolute Auto 2.2 X10*3/uL (1.2-4.9); Lymphocytes Percent Auto 23.6 % (20-40); MANUAL DIFF FLAG SCAN; Mean Corpuscular HGB Conc 27.5 g/dl (31.0-35.0); Mean Corpuscular Hemoglobin 19.2 pg (27.0-33.0); Mean Corpuscular Volume 69.6 fL (80.0-98.0); Monocytes Absolute Auto 0.7 X10*3/uL (0.1-1.2); Monocytes Percent Auto 7.4 % (2-11); NRBC Pct Auto 0.9 /100WBC (0.0-0.2); Neutrophils Absolute Auto 6.2 x10*3/uL (2.0-8.3); Neutrophils Percent Auto 66.1 % (45-73); PLT CLUMP 1; Red Blood Count 3.39 X10*6/uL (4.20-5.50); Red Cell Distribution Width 22.4 % (11.0-16.0); SCAN SMEAR FLAG 1
[2024-03-28 14:39] LABS: Hemoglobin 6.5 g/dl (12.0-16.0); White Blood Count 9.4 X10*3/uL (4.8-10.8)
[2024-03-28 14:47] LABS: Alanine Aminotransferase 16 U/L (0-31); Albumin Level 3.7 g/dL (3.5-5.0); Alkaline Phosphatase 77 U/L (39-117); Anion Gap 14 (12-20); Aspartate Amino Transferase 12 U/L (5-31); Bilirubin Direct 0.1 mg/dL (0.0-0.5); Bilirubin Total 0.3 mg/dL (0.0-1.0); Blood Urea Nitrogen 10 mg/dL (9-16); Calcium 8.8 mg/dL (8.4-10.2); Carbon Dioxide 26 mmol/L (22-29); Chloride 104 mmol/L (96-108); Creatinine Clr Calc Pharmacy 109.7; Estimated Glomerular Filt Rate > 60; Glucose Random 143 mg/dL (60-115); Lipase 21 U/L (8-78); Magnesium 1.8 mg/dL (1.6-2.6); Potassium 3.9 mmol/L (3.3-5.1); Sodium 140 mmol/L (135-145); Total Protein 6.5 g/dL (6.5-8.0)
[2024-03-28 14:54] LABS: Mean Platelet Volume 10.6 fL (9.4-12.3); Platelet Count 315 X10*3/uL (160-400); Troponin-I High Sensitivity < 2.7 ng/L (<3.5-17.0)
[2024-03-28 14:56] LABS: SLIDE REVIEW VERIFIED
[2024-03-28 15:13] LABS: Influenza A PCR NEGATIVE (Negative); Influenza B PCR NEGATIVE (Negative); Resp Syncy Virus RNA Qual PCR NEGATIVE (Negative); SARS COV2 PCR INHOUSE NEGATIVE (Negative)
--- OUTSIDE RECORDS SUMMARY | 2024-03-28 16:52 | XMS_ITS | Continuity of Care Document ---
Author Organization [facility] Address [address] [place] [address], 4t [place] [address]- Care Team Providers Care Medical Practitioners Name Role Phone Jose Ospina MD Primary Care Physician Encounter [facility] [place] Date(s): 04/18/23 - 05/18/23 [facility] [address] [facility], 4th [place] [address]- Attending Physician: Mihai Espinoza Admitting Physician: Mihai Espinoza Referring Physician: AdmMihai goldman Medications Amlodipine By Mouth, Daily, 0 Refills, Maintenance, 04/20/23 8:09:00 EDT, Partial fill upon patient request ifthe prescription is for a schedule II opioid drug. Start Date: 04/20/23 Status: Ordered Problem List Condition Confirmation Course Effective Dates Status Health St atus Informant Hypertension Confirmed Active Post-menopausal bleeding Confirmed Active Patient Care team information Care Team Personnel Name: Jose Ospina MD Position: Reference Physician Member Role: PCP Address: Address: [address] [place] [address]- Care Team Related Persons Name: COBY JETT Address: home [address] [place] [address]
--- OUTSIDE RECORDS SUMMARY | 2024-03-28 16:52 | XMS_ITS | Continuity of Care Document ---
Author Organization [facility] ter Address [address] [place] [address]- Care Team Providers Care Grain Weigher Name Role Phone Jose Ospina MD Primary Care Physician [phone] Encounter [facility] [place] Date(s): 06/05/23 - 07/05/[address] [address] Attending Physician: Mihai Espinoza Admitting Physician: Mihai Espinoza Referring Physician: Mihai Espinoza Medications Amlodipine By Mouth, Daily, 0 Refills, [...] Reference Physician Member Role: PCP Address: Address: [address] [place] [address]- Care Team Related Persons Name: COBY JETT Address: home [address] [place] [address]
--- OUTSIDE RECORDS SUMMARY | 2024-03-28 16:52 | XMS_ITS | Continuity of Care Document ---
Author Organization [facility] Jaswinder Segovia [employer] [facility] Address [address] [facility], 4t [place] [address]- Care Team Providers Care Welding Machine Operator Name Role Phone Jose Ospina MD Primary Care Physician Encounter [facility] [place] Date(s): 05/09/23 - [facility]08/23 [facility] [address] [facility], 4th [place] [address]- Medications Amlodipine By Mouth, Daily, 0 Refills, Maintenance, 04/20/23 8:09:00 EDT, Partial fill upon patient request ifthe prescription is for a schedule II opioid drug. Start Date: 04/20/23 Status: Ordered Problem List Condition Confirmation Course Effective Dates Status Health St atus Informant Hypertension Confirmed Active Post-menopausal bleeding Confirmed Active Vital Signs Most recent to oldest [Reference Range]: 1 Height 152 cm (05/10/23 4:44 PM) Patient Care team information Care Team Personnel Name: Jose Ospina MD Position: Reference Physician Member Role: PCP Address: Address: [address] [place] [address]- Care Team Related Persons Name: COBY JETT Address: home [address] [place] [address]
--- OUTSIDE RECORDS SUMMARY | 2024-03-28 16:52 | XMS_ITS | Continuity of Care Document ---
Author Organization [facility] Address [address] [place] [address], 4t [place] [address]- Care Team Providers Care Awning Hanger Name Role Phone Jose Ospina MD Primary Care Physician Encounter [facility] [place] Date(s): 05/14/23 - 06/13/23 [facility] [address] [facility], 4th [place] [address]- Medications Amlodipine By Mouth, Daily, 0 Refills, [...] Reference Physician Member Role: PCP Address: Address: [address] [place] [address]- Care Team Related Persons Name: COBY JETT Address: home [address] [place] [address]
--- OUTSIDE RECORDS SUMMARY | 2024-03-28 16:52 | XMS_ITS | Continuity of Care Document ---
Author Organization [facility] ter Address [address] [place] [address]- Care Team Providers Care Visual Merchandising Coordinator Name Role Phone Joes Ospina MD Primary Care Physician [phone] Encounter [facility] [place] Date(s): 06/05/23 - 06/05/[address] [address]- Discharge Disposition: A-D/C Home Attending Physician: Haris Valera MD Admitting Physician: Haris Valera MD Referring Physician: Jose Ospina MD Medications Amlodipine By Mouth, Daily, 0 Refills, [...] Reference Physician Member Role: PCP Address: Address: [address] [place] [address]- Care Team Related Persons Name: COBY JETT Address: home [address] [place] [address]
--- OUTSIDE RECORDS SUMMARY | 2024-03-28 16:52 | XMS_ITS | Continuity of Care Document ---
Author Organization [facility]te [facility] [employer] Address [address] [place] [address], 4t [place] [address]- Care Team Providers Care Media Reconciliation Specialist Name Role Phone Jose Ospina MD Primary Care Physician [place] [facility] [place]18/23 - [facility] [address] [facility], 4th [place], [place] [address] Attending Physician: Giacomo Lugo MD Referring Physician: Mady Damon Medications Amlodipine By Mouth, Daily, 0 Refills, Maintenance, 04/20/23 8:09:00 EDT, Partial fill upon patient request ifthe prescription is for a schedule II opioid drug. Start Date: 04/20/23 Status: Ordered Problem List Condition Confirmation Course Effective Dates Status Health St atus Informant Hypertension Confirmed Active Post-menopausal bleeding Confirmed Active Vital Signs Most recent to oldest [Reference Range]: 1 Weight 77.72 kg (04/18/23 2:07 PM) Blood Pressure [90-138/55-84 mm Hg] 174/ 93mm Hg *H* (04/18/23 2:07 PM) Blood pressure sites Arm, left (04/18/23 2:07 PM) Weight Obtained Via Standing scale (04/18/23 2:07 PM) Note * Geraldine Aguillon: PERFORM, SIGN, VERIFY Event Display: Patient Education/Instruction Authored Date: [id number] [employer] *[facility] MATERIALS ANALYST Clinical Summary Name ELVIE JETT Age 57 Years 1965 PCP Jose Ospina MD PCP Visit Date 04/18/2023 13:54:00 Additional Instructions: Scheduled Appointments?? Future Appointments ?No Future Appointments Scheduled Follow-Up Instructions ?? Diagnosis Medications: Please continue your medications until treatment is completed or stopped by your provider. Discuss any questions related to medications with your provider. Allergy Info:?? Medications Given This Visit Future Orders ?US Pelvic Transvaginal? Order Date:04/18/23?- Complete within?4 week(s) ?TSH with T4 Reflex (Adults Only)? Order Date:04/18/23?- Complete within?1 week(s) ?US Pelvic Transabdominal? Order Date:04/18/23?- Complete within?4 week(s) ?FSH? Order Date:04/18/23?- Complete within?1 week(s) ?MM Digital Mammo Screening? Order Date:04/18/23?- Complete on or after?04/18/23 Vital Signs Height Weight 77.72 kg BMI Blood Pressure 174 mm Hg/93 mm Hg Temperature Pulse Rate Respiratory Rate 02 Sat Mode of Delivery / You can now view a summary of your hospital visit from the comfort of your home through a free online portal called [employer]. [employer] is a website that allows you to securely view your medical information including discharge summary, medications and follow-up visits. ??You can alsosend a secure electronic message to your doctor???s office to request appointments, renew medications or just ask a question. You can enroll at [email or web address] or register during your next office visit. Disclaimer:?? The information provided is of a general nature and is intended to be used in conjunction with the recommendations and advice of your health care practitioner. ??Every effort has been made to ensure that the information provided is accurate and complete at the time it is provided to you however, as your needs change, or, as new ??information becomes available, different or additional instructions may be required. If you have questions, please consult with your primary care provider or pharmacist, as appropriate. ??This information is not intended to serve as substitution for assessment and evaluation by a qualified health care provider. If you do not have a primary care provider, you may find a [facility] provider by calling [facility] [employer] at [phone]. [facility], in keeping with [facility] guidance, no longer requires face masks for staff, patientsor visitors in most situations. Similar to time spent indoors at other locations, there is the chance that you were exposed to respiratory viruses during your time with us (such as flu or COVID-19).? If you develop symptoms concerning for a viral respiratory infection, please seek testing (and treatment if indicated) from your medical provider or home test kit. For information about the plan of care including goals and instructions for your diagnosis, please see the patient education orders section of this document. Patient Education Materials?? The content of this educational material or handout may have been modified, supplemented, or adapted from its original content and format to support your individualized medical care. Please follow instructions discussed with your provider during this visit as well as any education documents you were given today. Patient Care team information Care Team Personnel Name: Jose Ospina MD Position: Reference Physician Member Role: PCP Address: Address: [address] [place] [address]- Care Team Related Persons Name: COBY JETT
--- OUTSIDE RECORDS SUMMARY | 2024-03-28 16:52 | XMS_ITS | Continuity of Care Document ---
Author Organization [facility] Address [address] [place] [address], 4t [place] [address]- Care Team Providers Care Tape Machine Tailer Name Role Phone Jose Ospina MD Primary Care Physician [place] [facility] [place] Date(s): 06/08/23 - 07/08/23 [facility] [address] [facility], 4th [place] [address]- Medications Amlodipine By Mouth, Daily, 0 Refills, [...] Reference Physician Member Role: PCP Address: Address: [address] [place] [address]- Care Team Related Persons Name: COBY JETT Address: home [address] [place] [address]
[2024-03-28 18:46] VITALS: BP 158/84; PULSE 90; RESP 18; TEMP 37.1; O2SAT 95
[2024-03-28 19:37] LABS: OBS Int Ctl Valid YES; OBS1 NEGATIVE (NEGATIVE)
[2024-03-28] MEDS: iohexoL 350 MG/ML 100 ML INFUS..BTL IV (19:44)
[2024-03-28] MEDS: Morphine Sulfate 4 MG/ML CARTRIDGE IVPUSH (20:03)
--- NOTE | 2024-03-28 22:00 | P.HPHOSP_ITS ---
History of Present Illness Date of Service: 03/28/24 Chief Complaint: Abd pain This is a 58-year-old female with pertinent history of hypertension, COPD not on home oxygen, schizophrenia, gastroesophageal reflux disease, djt-hpwbkec-ejlksbdlj diabetes mellitus, mood disorder who presents to the emergency department for evaluation of abdominal pain. Patient states she started having upper abdominal pain 3 days prior to presentation. Initially it was intermittent but progressed to being constant. It is worse with food intake. Denies any radiation of the pain. Denies nausea, vomiting. Is having soft stool but did not noticed blood in stools. No hematemesis, hematuria or melena. Patient denies fever, chills, chest discomfort, palpitations, shortness of breath, changes in urinary habits. Patient is Norwegian speaking and history obtained with the help of lang interpreter In the emergency department, hemoglobin was found to be 6.5. CT abdomen with constipation and ultrasound of the abdomen with positive Vargas's sign without gallbladder wall thickening. Review of Systems 2 Constitutional: Constitutional: Reports no additional constitutional complaints Cardiovascular: Cardiovascular: Reports no additional cardiovascular complaints Respiratory: Respiratory: Reports no additional respiratory complaints Gastrointestinal: Gastrointestinal: Reports abdominal pain Genitourinary: Genitourinary: Reports no additional female genitourinary complaints [facility] Medical History Diabetes Morbid obesity due to excess calories Anxiety Chronic mental illness COPD (chronic obstructive pulmonary disease) Hyperlipidemia Schizophrenia Asthma Family History Father Throat cancer Mother CVA (cerebral vascular accident) Brother Drug overdose Sister No problems noted. Sister No problems noted. Son No problems noted. Son No problems noted. 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: Unknown / Unable to assess Household Members Other:: Lanny Soto, Inocencio Soto, - foster parents Housing: House Do you presently have visiting nurse or other home services: Yes (Meds administered by [facility]) Unable to assess alcohol history related to: Unknown Alcohol intake: never Comment: pt resting with eyes closed Patient Tobacco Use Status: Current everyday Tobacco user Tobacco use type: Cigarette Cigarettes Per Day: 6 e-Cigarette/Vaping Use: Never Used Second Hand Smoke Exposure: No Advance Directives: Yes Advance Directives on File: Yes Advance Directives Date on File: 12/13/22 Do you have a plan to hurt others: No Plan service: No Current occupational status: disabled Sexual orientation: Straight/Heterosexual Meds Allergies Allergy/AdvReac Type Severity Reaction Status Date / Time diazepam [From Valium] Allergy Unknown Unknown Verified 03/28/24 13:58 haloperidol [From Haldol] Allergy Unknown Unknown Verified 03/28/24 13:58 Penicillins Allergy Unknown Unknown Verified 03/28/24 13:58 risperidone [From Risperdal] Allergy Unknown Unknown Verified 03/28/24 13:58 aspirin [Aspirin] AdvReac Intermediate Vomiting Verified 03/28/24 13:58 trazodone [TRAZODONE] AdvReac Intermediate NAUSEA & Verified 03/28/24 13:58 VOMITING Home Medications ?Medication ?Instructions ?Recorded ?Confirmed ?Last Taken ?Type sennosides 8.6 mg tablet (senna) 17.2 mg PO BEDTIME PRN constipation 12/13/22 03/24/24 12/12/22 History albuterol sulfate 2.5 mg/3 mL 2.5 mg inhalation Q4H PRN wheezing 06/18/23 03/24/24 Unknown History (0.083 %) solution for nebulization albuterol sulfate 90 mcg/actuation 2 puff inhalation Q4-6H PRN 06/18/23 03/24/24 Unknown History aerosol inhaler (Ventolin HFA) Shortness Of Breath Or Wheezing fluticasone propionate 110 2 puff inhalation BID 06/18/23 03/24/24 Unknown History mcg/actuation HFA aerosol inhaler (Flovent HFA) sucralfate 1 gram tablet 1 g PO TID 06/18/23 03/24/24 Unknown History tramadol 50 mg tablet 50 mg PO TID PRN Pain, Moderate 06/18/23 03/24/24 Unknown History polyethylene glycol 3350 17 gram 17 g PO TID PRN 08/10/23 03/24/24 Unknown History oral powder packet divalproex 500 mg tablet,extended 1,250 mg PO QPM 10/01/23 03/24/24 Unknown History release 24 hr Physical Exam 2 Vital Signs and Narrative: Vital Signs: Last Vital Signs Temp 98.7 F 03/28/24 18:46 Pulse 90 03/28/24 18:46 Resp 18 03/28/24 18:46 BP 158/84 H 03/28/24 18:46 Pulse Ox 95 03/28/24 18:46 O2 Del Method Room Air 03/28/24 18:46 BMI result Body Mass Index 35.0 Middle-aged female lying in bed in no distress Neck supple, no JVD Regular rate and rhythm, S1-S2 heard Regular breath sounds bilaterally, no wheezing or crackles appreciated Abdomen with upper abdominal tenderness, no rigidity, no rebound tenderness Patient is awake, alert and oriented to self, place, time and person ; no focal motor deficit Psych: Normal mood No pedal edema Results Labs 03/28/24 14:23 03/28/24 14:23 Labs: Laboratory Results - last 24 hr 03/28/24 03/28/24 03/28/24 14:23 15:24 19:10 MCV 69.6 L MCH 19.2 L MCHC 27.5 L RDW 22.4 H Plt Count 315 MPV 10.6 Immature Gran % (Auto) 1.5 H Neut % (Auto) 66.1 Lymph % (Auto) 23.6 Mineral % (Auto) 7.4 Eos % (Auto) 1.1 Baso % (Auto) 0.3 Lymph # (Auto) 2.2 Mineral # (Auto) 0.7 Eos # (Auto) 0.1 Baso # (Auto) 0.0 Abs Immat Gran (auto) 0.14 H Absolute Neuts (auto) 6.2 Absolute Nucleated RBC 0.080 H Nucleated RBC % (auto) 0.9 H Smear Tech's Comments VERIFIED Anion Gap 14 Estim Creat Clear Calc 109.7 Estimated GFR > 60 Random Glucose 143 H Calcium 8.8 D Magnesium 1.8 Total Bilirubin 0.3 Direct Bilirubin 0.1 AST 12 ALT 16 Alkaline Phosphatase 77 Troponin I High Sens < 2.7 Total Protein 6.5 Albumin 3.7 Lipase 21 Urine Color Yellow Urine Appearance Clear Urine pH 6.0 Ur Specific Prim 1.020 Urine Protein Negative Urine Glucose (UA) Negative Urine Ketones Trace Urine Blood Negative Urine Nitrite Negative Ur Leukocyte Esterase Trace H Urine RBC 0-2 Urine WBC 0-5 Ur Squamous Epith Cells 3-5 Urine Bacteria None Seen Hyaline Casts 0-2 Stool Occult Blood NEGATIVE Influenza Type A (PCR) NEGATIVE Influenza Type B (PCR) NEGATIVE RSV RNA Qual (PCR) NEGATIVE SARS-CoV-2 RNA (RT-PCR) NEGATIVE Blood Type O Positive Antibody Screen NEGATIVE Crossmatch See Detail Imaging Radiologist's Impressions: Impressions Abdomen Ultrasound 03/28/24 14:25 IMPRESSION: Technologist reported a positive Vargas's sign, however, there is no evidence of cholelithiasis or gallbladder wall thickening to suggest acute cholecystitis. If there is clinical concern for acute cholecystitis, correlation with a CT of the abdomen could be obtained. Abdomen/Pelvis CT 03/28/24 19:45 IMPRESSION: There is a large stool burden, suggesting constipation. No mark obstruction is noted. There is no free intraperitoneal air or abscess. The vermiform appendix is again not identified. No diverticulosis or diverticulitis is seen. Fleischner guidelines were followed. Assessment and Plan (1) Anemia: Qualifiers: Anemia type: unspecified type Qualified Code(s): D64.9 - Anemia, unspecified Status: Acute (2) Abdominal pain: Status: Acute Plan This is a 58-year-old female with pertinent history of hypertension, COPD not on home oxygen, schizophrenia, gastroesophageal reflux disease, eyf-pbydcwt-ndruihxcl diabetes mellitus, mood disorder who presents to the emergency department for evaluation of abdominal pain. #. Acute microcytic anemia: 1 unit PRBC being transfused in the ER. Obtaining iron panel. Stool occult negative. Closely monitor H&H, may need GI consult if hemoglobin drops or patient develops melena/hematochezia #. Abdominal pain: Imaging with constipation and positive Vargas's sign. Obtaining HIDA scan to rule out acute cholecystitis. Enema being given in the ER #. Hypertension: Continue home antihypertensives #. COPD: No exacerbation during admission. Continue home inhalers #. Gastroesophageal reflux disease: On PPI #. Bpf-ifafyij-wiazjggiy diabetes mellitus: Initiating Accu-Cheks with sliding scale insulin every 6 hours #. Mood disorder: Continue home mood stabilizers Med rec pending DVT prophylaxis: Mechanical Full code Quality Stroke Does the patient have a stroke diagnosis?: No VTE Prior VTE?: No VTE Risk Level:: Medical - moderate - high VTE Device Contraindication: N/A - Device Ordered VTE Drug Contraindication: Treatment Not Indicated
[2024-03-28 22:11] VITALS: BP 157/81; PULSE 89; RESP 20; TEMP 36.9
[2024-03-28 22:26] VITALS: BP 152/85; PULSE 89; RESP 20; TEMP 36.9
[2024-03-28] MEDS: Sodium Phosphate,Mono-Dibasic 133 ML ENEMA PR (22:36)
[2024-03-28] MEDS: Morphine Sulfate 2 MG/ML CARTRIDGE IVPUSH (22:37)
[2024-03-28 22:53] LABS: Iron 18 mcg/dL (30-160); Percent Iron Saturation 4 % (15-50); Total Iron Binding Capacity 476 mcg/dL (228-428); Unsaturated Iron Binding 458 ug/dL
[2024-03-29] VITALS (11 sets, daily range): BP systolic 119–149; BP diastolic 56–94; PULSE 81–96; RESP 10–22; TEMP 36.1–37.1; O2SAT 91–95; BMI 34.8
[2024-03-29 00:11] LABS: Glucose, Whole Blood 87 mg/dL (60-115)
--- NOTE | 2024-03-29 00:12 | PC.NURSE ---
fleet enema administered with positive effects
[2024-03-29] MEDS: 0.9 % Sodium Chloride Flush 3 ML SYRINGE IVFLUSH ×4 (01:45→22:24)
[2024-03-29] MEDS: Morphine Sulfate 2 MG/ML CARTRIDGE IVPUSH ×5 (03:06→22:21)
[2024-03-29] MEDS: Albuterol/Iprat 2.5/0.5MG 3 ML AMPUL.NEB INHALE (03:10)
[2024-03-29 05:29] LABS: MANUAL DIFF FLAG NO
[2024-03-29 05:39] LABS: Basophils Percent Auto 0.4 % (0-2); Eosinophils Absolute Auto 0.1 X10*3/uL (0.0-0.4); Eosinophils Percent Auto 1.2 % (0-4); Hematocrit 29.6 % (37.0-47.0); Hemoglobin 8.4 g/dl (12.0-16.0); Imm Gran Abs Auto 0.15 X10*3/uL (0.00-0.03); Imm Gran Pct Auto 1.5 % (0.0-0.4); Lymphocytes Absolute Auto 3.2 X10*3/uL (1.2-4.9); Lymphocytes Percent Auto 32.2 % (20-40); Mean Corpuscular HGB Conc 28.4 g/dl (31.0-35.0); Mean Corpuscular Hemoglobin 20.4 pg (27.0-33.0); Mean Corpuscular Volume 71.8 fL (80.0-98.0); Monocytes Absolute Auto 0.9 X10*3/uL (0.1-1.2); Monocytes Percent Auto 8.8 % (2-11); NRBC Pct Auto 0.7 /100WBC (0.0-0.2); Neutrophils Absolute Auto 5.6 x10*3/uL (2.0-8.3); Neutrophils Percent Auto 55.9 % (45-73); Platelet Count 299 X10*3/uL (160-400); Red Blood Count 4.12 X10*6/uL (4.20-5.50); Red Cell Distribution Width 23.5 % (11.0-16.0); White Blood Count 9.9 X10*3/uL (4.8-10.8)
[2024-03-29 05:48] LABS: Anion Gap 13 (12-20); Blood Urea Nitrogen 11 mg/dL (9-16); Calcium 9.2 mg/dL (8.4-10.2); Carbon Dioxide 28 mmol/L (22-29); Chloride 104 mmol/L (96-108); Creatinine Clr Calc Pharmacy 105.8; Estimated Glomerular Filt Rate > 60; Glucose Random 91 mg/dL (60-115); Potassium 3.8 mmol/L (3.3-5.1); Sodium 141 mmol/L (135-145)
[2024-03-29 06:10] LABS: Glucose, Whole Blood 89 mg/dL (60-115)
--- NOTE | 2024-03-29 09:51 | HO.PM.IMPN ---
Subjective Subjective Date of Service: 03/29/24 Interval History: f/u on abdomina, gib, acute blood loss anemia No show for outpt EGD on 03/26 Still having abdominal discomfort Physical Exam Vital Signs: Vital Signs: Last Vital Signs Temp 97.6 F 03/29/24 08:00 Pulse 83 03/29/24 08:00 Resp 10 L 03/29/24 08:00 BP 119/67 03/29/24 08:00 Pulse Ox 94 03/29/24 08:00 O2 Del Method Room Air 03/29/24 08:00 O2 Flow Rate 2 03/29/24 08:00 BMI result Body Mass Index 35.0 General: AO X 3, no acute distress Resp: CTA bilateral CVS: S1,S2,RRR GI: +BS, NT, no distention Skin: No rash Neuro: motor grossly intact Psych: appropriate affect Const: Other: General: AO X 3, no acute distress Resp: CTA bilateral CVS: S1,S2,RRR GI: +BS, NT, no distention Skin: No rash Neuro: motor grossly intact Psych: appropriate affect Objective Data Active Medications Acetaminophen (Acetaminophen 325 Mg Tablet) 650 mg PO Q6H PRN PRN Reason: Pain, Mild (Pain Scale 1-3), fever or headache Albuterol/Ipratropium (Albuterol/Iprat 2.5/0.5mg 3 Ml Ampul.Neb) 3 ml INHALE Q4H PRN PRN Reason: Wheezing Last Admin: 03/29/24 03:10 Dose: 3 ml Documented By: MARQUITA Calcium Carbonate (Calcium Carbonate 750 Mg Tab.Chew) 750 mg PO Q4H PRN PRN Reason: Heartburn Glucose (Glucose Gel 15 Gm Gel..Gram.) 15 gm PO Q15M PRN; Protocol PRN Reason: per Hypoglycemia Standing Ord. Dextrose (D10) 250 mls @ 750 mls/hr IV Q15M PRN; Protocol PRN Reason: per Hypoglycemia Standing Ord. Insulin Human Lispro (Insulin Lispro 100 Unit/Ml 3 Ml Vial) 0 unit SUBCUT Q6H [facility]; Protocol Last Admin: 03/29/24 06:28 Dose: Not Given Documented By: CARYN Non-Admin Reason: glucose 91 Magnesium Hydroxide (Milk Of Magnesia 30 Ml Oral.Susp) 30 ml PO DAILY PRN PRN Reason: Constipation Melatonin (Melatonin 3 Mg Tablet) 6 mg PO BEDTIME PRN PRN Reason: Insomnia Morphine Sulfate (Morphine Sulfate 2 Mg/Ml Cartridge) 2 mg IVPUSH Q4H PRN; Protocol PRN Reason: Pain, Severe (Pain Scale 7-10) Last Admin: 03/29/24 08:03 Dose: 2 mg Documented By: CHRIS Ondansetron HCl (Ondansetron Hcl 4 Mg/2 Ml Vial) 4 mg IVPUSH Q8H PRN PRN Reason: Nausea and Vomiting Sodium Chloride (0.9 % Sodium Chloride Flush 3 Ml Syringe) 3 ml IVFLUSH QSHIFT [facility] Last Admin: 03/29/24 08:04 Dose: 3 ml Documented By: CHRIS Labs 03/29/24 04:50 03/29/24 04:50 Labs: Laboratory Results - last 24 hr 03/28/24 03/28/24 03/28/24 14:23 15:24 19:10 MCV 69.6 L MCH 19.2 L MCHC 27.5 L RDW 22.4 H Plt Count 315 MPV 10.6 Immature Gran % (Auto) 1.5 H Neut % (Auto) 66.1 Lymph % (Auto) 23.6 Gosper % (Auto) 7.4 Eos % (Auto) 1.1 Baso % (Auto) 0.3 Lymph # (Auto) 2.2 Gosper # (Auto) 0.7 Eos # (Auto) 0.1 Baso # (Auto) 0.0 Abs Immat Gran (auto) 0.14 H Absolute Neuts (auto) 6.2 Absolute Nucleated RBC 0.080 H Nucleated RBC % (auto) 0.9 H Smear Tech's Comments VERIFIED Anion Gap 14 Estim Creat Clear Calc 109.7 Estimated GFR > 60 POC Glucose Random Glucose 143 H Calcium 8.8 D Magnesium 1.8 Iron TIBC % Saturation Unsat Iron Binding Total Bilirubin 0.3 Direct Bilirubin 0.1 AST 12 ALT 16 Alkaline Phosphatase 77 Troponin I High Sens < 2.7 Total Protein 6.5 Albumin 3.7 Lipase 21 Urine Color Yellow Urine Appearance Clear Urine pH 6.0 Ur Specific Gervais 1.020 Urine Protein Negative Urine Glucose (UA) Negative Urine Ketones Trace Urine Blood Negative Urine Nitrite Negative Ur Leukocyte Esterase Trace H Urine RBC 0-2 Urine WBC 0-5 Ur Squamous Epith Cells 3-5 Urine Bacteria None Seen Hyaline Casts 0-2 Stool Occult Blood NEGATIVE Influenza Type A (PCR) NEGATIVE Influenza Type B (PCR) NEGATIVE RSV RNA Qual (PCR) NEGATIVE SARS-CoV-2 RNA (RT-PCR) NEGATIVE Blood Type O Positive Antibody Screen NEGATIVE Crossmatch See Detail 03/28/24 03/29/24 03/29/24 22:31 00:07 04:50 MCV 71.8 L MCH 20.4 L MCHC 28.4 L RDW 23.5 H Plt Count 299 MPV Not Reportable Immature Gran % (Auto) 1.5 H Neut % (Auto) 55.9 Lymph % (Auto) 32.2 Gosper % (Auto) 8.8 Eos % (Auto) 1.2 Baso % (Auto) 0.4 Lymph # (Auto) 3.2 Gosper # (Auto) 0.9 Eos # (Auto) 0.1 Baso # (Auto) 0.0 Abs Immat Gran (auto) 0.15 H Absolute Neuts (auto) 5.6 Absolute Nucleated RBC 0.070 H Nucleated RBC % (auto) 0.7 H Smear Tech's Comments Anion Gap 13 Estim Creat Clear Calc 105.8 Estimated GFR > 60 POC Glucose 87 Random Glucose 91 Calcium 9.2 Magnesium Iron 18 L TIBC 476 H % Saturation 4 L Unsat Iron Binding 458 Total Bilirubin Direct Bilirubin AST ALT Alkaline Phosphatase Troponin I High Sens Total Protein Albumin Lipase Urine Color Urine Appearance Urine pH Ur Specific Gervais Urine Protein Urine Glucose (UA) Urine Ketones Urine Blood Urine Nitrite Ur Leukocyte Esterase Urine RBC Urine WBC Ur Squamous Epith Cells Urine Bacteria Hyaline Casts Stool Occult Blood Influenza Type A (PCR) Influenza Type B (PCR) RSV RNA Qual (PCR) SARS-CoV-2 RNA (RT-PCR) Blood Type Antibody Screen Crossmatch 03/29/24 06:05 MCV MCH MCHC RDW Plt Count MPV Immature Gran % (Auto) Neut % (Auto) Lymph % (Auto) Gosper % (Auto) Eos % (Auto) Baso % (Auto) Lymph # (Auto) Gosper # (Auto) Eos # (Auto) Baso # (Auto) Abs Immat Gran (auto) Absolute Neuts (auto) Absolute Nucleated RBC Nucleated RBC % (auto) Smear Tech's Comments Anion Gap Estim Creat Clear Calc Estimated GFR POC Glucose 89 Random Glucose Calcium Magnesium Iron TIBC % Saturation Unsat Iron Binding Total Bilirubin Direct Bilirubin AST ALT Alkaline Phosphatase Troponin I High Sens Total Protein Albumin Lipase Urine Color Urine Appearance Urine pH Ur Specific Gervais Urine Protein Urine Glucose (UA) Urine Ketones Urine Blood Urine Nitrite Ur Leukocyte Esterase Urine RBC Urine WBC Ur Squamous Epith Cells Urine Bacteria Hyaline Casts Stool Occult Blood Influenza Type A (PCR) Influenza Type B (PCR) RSV RNA Qual (PCR) SARS-CoV-2 RNA (RT-PCR) Blood Type Antibody Screen Crossmatch Assessment and Plan (1) Abdominal pain: Status: Acute (2) Anemia: Status: Acute Plan 58-year-old female with pertinent history of hypertension, COPD not on home oxygen, schizophrenia, gastroesophageal reflux disease, [id number] diabetes mellitus, mood disorder who presents to the emergency department for evaluation of abdominal pain. Acute microcytic anemia likely d/t GIB -s/p 1 unit PRBC with improvment -GI consult, was no show for EGD on 03/26 -follow h/h -IV PPI Abdominal pain high burden constipation -bowel regimen (colace, mom, miralax) -HIDA scan pending for ? + stout's on US, no stones Hypertension, BP WNL, resume meds after med rec COPD, no exacerbation, PRN inherrs GERD--PPI DM 2, SSI. hold metformin Mood disorder: resume meds after med rec need for inpt: anemia, gib work up DVT: mechanical d/t anemia, gib Quality Stroke Does the patient have a stroke diagnosis?: No VTE Prior VTE?: No VTE Risk Level:: Medical - moderate - high VTE Device Contraindication: N/A - Device Ordered VTE Drug Contraindication: Treatment Not Indicated
[2024-03-29] MEDS: Pantoprazole Sodium 40 MG/10 ML VIAL IVPUSH ×2 (10:54→16:01)
[2024-03-29 10:59] LABS: Glucose, Whole Blood 90 mg/dL (60-115)
--- NOTE | 2024-03-29 11:14 | PHA.MEDREC ---
Addendum entered by Douglas Loza 03/29/24 11:41: The patient told me that she takes two pills at night of depakote, but could not clarify the dosage. When looking at claim history, she last received depakote 250 mg ER once daily in November 2023. Prior to this, She also received depakote 500 mg ER 2 capsules at bedtime in September 2023. Of note, she also had a recent office visit with [facility] Nat[facility] on 03/24/24 where it was reconciled that the patient takes Depakote 1250mg ER at bedtime. Per Dr. Sanderson, home dose was set to be confirmed at 1250 mg at bedtime. Original Note: Pharmacy Consult ? Medication Reconciliation Pharmacy has completed the medication reconciliation. Utilized [employer]. Patient states they take clozaril 300 mg PM and last took yesterday.
--- NOTE | 2024-03-29 11:29 | PC.NURSE ---
pt off unit to HIDA scan
--- NOTE | 2024-03-29 13:18 | PC.NURSE ---
pt has returned from [place]
[2024-03-29] MEDS: Lactulose 20 GM/30 ML SOLUTION PO ×2 (13:30→20:19)
[2024-03-29] MEDS: Sucralfate 1 GM TABLET PO ×2 (16:01→20:20)
[2024-03-29] MEDS: Acetaminophen 325 MG TABLET 650 MG PO (16:01)
[2024-03-29 16:16] LABS: Glucose, Whole Blood 85 mg/dL (60-115)
--- NOTE | 2024-03-29 17:03 | P.CNGI_ITS ---
History of Present Illness Data of Consult Service Date: 03/29/24 Requesting physician: Chapo Olivo Primary Care Provider: Brenna Brower MD HPI Reason for consult: anemia 58-year-old female with history of hypertension, appendectomy COPD not on home oxygen, schizophrenia, gastroesophageal reflux disease, [id number] diabetes mellitus, mood disorder and chronic anemia who I am seeing for assessment for anemia Patient came to ED with c/o RUQ pain, crampy going into the back and 8/10 in severity, no relieving or exacerbating factors, not had it before. denies fever, chills, chest discomfort, palpitations, shortness of breath, changes in urinary habits. No melena or rectal bleeding, last stool few days ago was brown per patient, denies taking nsaid or using alcohol. No nausea or vomiting. Denies vaginal bleeding. HGB was 6.5 with baseline 9-11 g/dl range. CT with large stool burden, no acute findings. US with pos stout but neg for Gb thieckening and no stones etc, HIDA with borderline EF but patent cystic duct. Review of Systems 2 Review of Systems: Constitutional : No Weight loss, No Fever, No Chills ENT/Mouth : No sore throat, No Rhinorrhea Eyes: No Swelling, No Redness Cardiovascular : No Chest Pain, No SOB, No Edema Respiratory : No Cough, No Sputum, No Wheezing Gastrointestinal : see HPI Genitourinary : NO Dysuria, No Urinary Frequency, No Hematuria, No Urgency Musculoskeletal : + joint pain, No Myalgias, No Joint Swelling Skin : No Skin Lesions, No rash Neuro : No Weakness, No Numbness, No Dizziness, No Headache Psych : No Anxiety/Panic, No Depression Heme/Lymph: No Bruising, No Lymphadenopathy Endocrine : No Polyuria, No Polydipsia All other systems reviewed and are negative. [facility] Past Medical History Medical History Diabetes Morbid obesity due to excess calories Anxiety Chronic mental illness COPD (chronic obstructive pulmonary disease) Hyperlipidemia Schizophrenia Asthma Family History Family History Father Throat cancer Mother CVA (cerebral vascular accident) Brother Drug overdose Sister No problems noted. Sister No problems noted. Son No problems noted. Son No problems noted. Surgical History Surgical History Hx of colonoscopy History of tubal ligation H/O right knee surgery History of appendectomy 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 Other:: Lanny Soto, Inocencio Soto, - foster parents Housing: House Do you presently have visiting nurse or other home services: Yes Unable to assess alcohol history related to: Unknown Alcohol intake: never Comment: pt resting with eyes closed Patient Tobacco Use Status: Current everyday Tobacco user Tobacco use type: Cigarette Cigarettes Per Day: 6 e-Cigarette/Vaping Use: Never Used Second Hand Smoke Exposure: No Advance Directives Date on File: 12/13/22 service: No Current occupational status: disabled Sexual orientation: Straight/Heterosexual Meds Allergies Allergy/AdvReac Type Severity Reaction Status Date / Time diazepam [From Valium] Allergy Unknown Unknown Verified 03/28/24 13:58 haloperidol [From Haldol] Allergy Unknown Unknown Verified 03/28/24 13:58 Penicillins Allergy Unknown Unknown Verified 03/28/24 13:58 risperidone [From Risperdal] Allergy Unknown Unknown Verified 03/28/24 13:58 aspirin [Aspirin] AdvReac Intermediate Vomiting Verified 03/28/24 13:58 trazodone [TRAZODONE] AdvReac Intermediate NAUSEA & Verified 03/28/24 13:58 VOMITING Active Medications: Current Medications Acetaminophen (Acetaminophen 325 Mg Tablet) 650 mg PO Q6H PRN PRN Reason: Pain, Mild (Pain Scale 1-3), fever or headache Last Admin: 03/29/24 16:01 Dose: 650 mg Albuterol Sulfate (Albuterol Sulfate 90 Mcg 8 Gm Inhaler) 2 puff INHALE RQ6H PRN PRN Reason: Shortness Of Breath Or Wheezing Calcium Carbonate (Calcium Carbonate 750 Mg Tab.Chew) 750 mg PO Q4H PRN PRN Reason: Heartburn Clonazepam (Clonazepam 0.5 Mg Tablet) 0.5 mg PO DAILY LAXMI Clonazepam (Clonazepam 1 Mg Tablet) 1 mg PO BEDTIME LAXMI Clozapine (Clozapine 100 Mg Tablet) 300 mg PO BEDTIME LAXMI Diltiazem HCl (Diltiazem Hcl Cd 120 Mg Cap.Er.Deg) 120 mg PO DAILY COUNTS INCLUDE 234 BEDS AT THE [facility]; Protocol Divalproex Sodium (Divalproex Sodium Er 250 Mg Tab.Er.24h) 1,250 mg PO BEDTIME COUNTS INCLUDE 234 BEDS AT THE [facility] Docusate Sodium (Docusate Sodium 100 Mg Capsule) 100 mg PO BID COUNTS INCLUDE 234 BEDS AT THE [facility] Fluoxetine HCl (Fluoxetine Hcl 10 Mg Capsule) 30 mg PO DAILY COUNTS INCLUDE 234 BEDS AT THE [facility] Glucose (Glucose Gel 15 Gm Gel..Gram.) 15 gm PO Q15M PRN; Protocol PRN Reason: per Hypoglycemia Standing Ord. Dextrose (D10) 250 mls @ 750 mls/hr IV Q15M PRN; Protocol PRN Reason: per Hypoglycemia Standing Ord. Insulin Human Lispro (Insulin Lispro 100 Unit/Ml 3 Ml Vial) 0 unit SUBCUT Q6H COUNTS INCLUDE 234 BEDS AT THE [facility]; Protocol Last Admin: 03/29/24 16:21 Dose: Not Given Lactulose (Lactulose 20 Gm/30 Ml Solution) 20 gm PO BID COUNTS INCLUDE 234 BEDS AT THE [facility] Last Admin: 03/29/24 13:30 Dose: 20 gm Lisinopril (Lisinopril 10 Mg Tablet) 10 mg PO BEDTIME COUNTS INCLUDE 234 BEDS AT THE [facility]; Protocol Magnesium Hydroxide (Milk Of Magnesia 30 Ml Oral.Susp) 30 ml PO DAILY PRN PRN Reason: Constipation Melatonin (Melatonin 3 Mg Tablet) 6 mg PO BEDTIME PRN PRN Reason: Insomnia Montelukast Sodium (Montelukast Sodium 10 Mg Tablet) 10 mg PO DAILY COUNTS INCLUDE 234 BEDS AT THE [facility] Morphine Sulfate (Morphine Sulfate 2 Mg/Ml Cartridge) 2 mg IVPUSH Q4H PRN; Protocol PRN Reason: Pain, Severe (Pain Scale 7-10) Last Admin: 03/29/24 13:30 Dose: 2 mg Ondansetron HCl (Ondansetron Hcl 4 Mg/2 Ml Vial) 4 mg IVPUSH Q8H PRN PRN Reason: Nausea and Vomiting Pantoprazole Sodium (Pantoprazole Sodium 40 Mg/10 Ml Vial) 40 mg IVPUSH BID@0630,1630 COUNTS INCLUDE 234 BEDS AT THE [facility] Last Admin: 03/29/24 16:01 Dose: 40 mg Polyethylene Glycol (Polyethylene Glycol 3350 17 Gm Powd.Pack) 17 gm PO DAILY PRN PRN Reason: Constipation Senna (Sennosides 8.6 Mg Tablet) 17.2 mg PO BEDTIME PRN PRN Reason: constipation Sodium Chloride (0.9 % Sodium Chloride Flush 3 Ml Syringe) 3 ml IVFLUSH QSHIFT COUNTS INCLUDE 234 BEDS AT THE [facility] Last Admin: 03/29/24 16:01 Dose: 3 ml Sucralfate (Sucralfate 1 Gm Tablet) 1 gm PO TID COUNTS INCLUDE 234 BEDS AT THE [facility] Last Admin: 03/29/24 16:01 Dose: 1 gm Home Medications ?Medication ?Instructions ?Recorded ?Confirmed ?Last Taken ?Type sennosides 8.6 mg tablet (senna) 17.2 mg PO BEDTIME PRN constipation 12/13/22 03/29/24 12/12/22 History albuterol sulfate 2.5 mg/3 mL 2.5 mg inhalation Q4H PRN wheezing 06/18/23 03/29/24 Unknown History (0.083 %) solution for nebulization albuterol sulfate 90 mcg/actuation 2 puff inhalation Q6H PRN 06/18/23 03/29/24 Unknown History aerosol inhaler (Ventolin HFA) Shortness Of Breath Or Wheezing sucralfate 1 gram tablet 1 g PO TID 06/18/23 03/29/24 03/28/24 History tramadol 50 mg tablet 50 mg PO TID PRN Severe Pain 06/18/23 03/29/24 Unknown History (Scale Score 7-10) polyethylene glycol 3350 17 gram 17 g PO TID PRN Constipation 08/10/23 03/29/24 Unknown History oral powder packet divalproex 500 mg tablet,extended 1,250 mg PO BEDTIME 10/01/23 03/29/24 03/28/24 History release 24 hr clonazepam 0.5 mg tablet 0.5 mg PO DAILY 03/29/24 03/29/24 03/28/24 History lisinopril 10 mg tablet 10 mg PO BEDTIME 03/29/24 03/29/24 03/28/24 History Physical Exam 2 Vital Signs: Vital Signs: Last Vital Signs Temp 98.0 F 03/29/24 15:49 Pulse 96 03/29/24 15:49 Resp 20 03/29/24 15:49 BP 134/56 L 03/29/24 15:49 Pulse Ox 92 03/29/24 15:49 O2 Del Method Room Air 03/29/24 15:49 O2 Flow Rate 2 03/29/24 13:29 BMI result Body Mass Index 34.8 EXAM: GENERAL: The patient is overweight VITAL SIGNS:see workflow HEENT: Nonicteric sclerae, CHEST: Chest wall is nontender. HEART: Regular rate and rhythm pulse LUNGS: talking easily -not cyanosed ABDOMEN: not examined, patient was in [place] scanner at time of interview SKIN: No rash, no excessive bruising, petechiae, or purpura was obviously seen NEUROLOGIC: Cranial nerves II-XII intact without motor/sensory deficit. Psych: normal affect Const: Other: General: AO X 3, no acute distress Resp: CTA bilateral CVS: S1,S2,RRR GI: +BS, NT, no distention Skin: No rash Neuro: motor grossly intact Psych: appropriate affect Results Labs 03/29/24 04:50 03/29/24 04:50 Labs: Short CBC 03/29/24 Range/Units 04:50 WBC 9.9 (4.8-10.8) X10*3/uL Hgb 8.4 L D (12.0-16.0) g/dl Hct 29.6 L D (37.0-47.0) % Plt Count 299 (160-400) X10*3/uL BMP 03/29/24 04:50 Sodium 141 Potassium 3.8 Chloride 104 Carbon Dioxide 28 BUN 11 Creatinine 0.[address] scan - abdomen: Attestation: I personally reviewed and interpreted this imaging study as follows: (degen spinal dz, large stool burden) Assessment and Plan (1) Abdominal pain: Status: Acute (2) Anemia: Qualifiers: Anemia type: unspecified type Qualified Code(s): D64.9 - Anemia, unspecified Status: Acute Plan 1/ Abdominal pain, neg HIDA and nml LFT< liekly from constipation due to her meds 2/ Anemia, unknown etiology, ddx: PUD, dieulafoy, colonic lesion, malabsorption PLAN: 1/ lactulose 20 ml TID for next few days, can add enema and dulcolax if needed 2 CLears on sunday and bowel prep with plan for EGD and colonoscopy on Sunday 3/ cont to monitor HGB , check celiac panel 4/ review med list 5/ check TSH and Mag, 6/ cont with PPI Procedures Date of Service Date of Service: 03/29/24
[2024-03-29] MEDS: Divalproex Sodium ER 250 MG TAB.ER.24H 1250 MG PO (20:19)
[2024-03-29] MEDS: lisinopriL 10 MG TABLET PO (20:19)
[2024-03-29] MEDS: cloZAPine 100 MG TABLET 300 MG PO (20:19)
[2024-03-29] MEDS: clonazePAM 1 MG TABLET PO (20:19)
[2024-03-29] MEDS: Docusate Sodium 100 MG CAPSULE PO (20:20)
[2024-03-29 22:08] LABS: Glucose, Whole Blood 86 mg/dL (60-115)
[2024-03-30] VITALS (9 sets, daily range): BP systolic 114–141; BP diastolic 59–75; PULSE 80–100; RESP 18–20; TEMP 36.1–37.2; O2SAT 90–98
[2024-03-30] MEDS: Morphine Sulfate 2 MG/ML CARTRIDGE IVPUSH ×5 (03:16→22:33)
[2024-03-30 05:25] LABS: Glucose, Whole Blood 89 mg/dL (60-115)
[2024-03-30] MEDS: Pantoprazole Sodium 40 MG/10 ML VIAL IVPUSH ×2 (06:03→16:02)
[2024-03-30 07:32] LABS: Glucose, Whole Blood 94 mg/dL (60-115)
[2024-03-30 08:53] LABS: Hemoglobin 8.2 g/dl (12.0-16.0)
[2024-03-30 08:55] LABS: Hematocrit 28.5 % (37.0-47.0); Mean Corpuscular HGB Conc 28.8 g/dl (31.0-35.0); Mean Corpuscular Hemoglobin 20.7 pg (27.0-33.0); Mean Corpuscular Volume 71.8 fL (80.0-98.0); NRBC Pct Auto 0.7 /100WBC (0.0-0.2); Platelet Count 309 X10*3/uL (160-400); Red Blood Count 3.97 X10*6/uL (4.20-5.50); Red Cell Distribution Width 23.5 % (11.0-16.0)
[2024-03-30 08:57] LABS: PLT ABN DIST 1
[2024-03-30 09:17] LABS: Anion Gap 10 (12-20); Blood Urea Nitrogen 8 mg/dL (9-16); Calcium 8.8 mg/dL (8.4-10.2); Carbon Dioxide 31 mmol/L (22-29); Chloride 101 mmol/L (96-108); Creatinine Clr Calc Pharmacy 101.8; Estimated Glomerular Filt Rate > 60; Glucose Random 86 mg/dL (60-115); Sodium 138 mmol/L (135-145)
[2024-03-30] MEDS: bisacodyL 5 MG TABLET.DR 10 MG PO (09:42)
[2024-03-30] MEDS: clonazePAM 0.5 MG TABLET PO (09:42)
[2024-03-30] MEDS: dilTIAZem HCL CD 120 MG CAP.ER.DEG PO (09:42)
[2024-03-30] MEDS: 0.9 % Sodium Chloride Flush 3 ML SYRINGE IVFLUSH ×3 (09:43→22:19)
[2024-03-30] MEDS: Acetaminophen 325 MG TABLET 650 MG PO (09:43)
[2024-03-30] MEDS: Docusate Sodium 100 MG CAPSULE PO ×2 (09:43→22:18)
[2024-03-30] MEDS: FLUoxetine HCl 10 MG CAPSULE 30 MG PO (09:43)
[2024-03-30] MEDS: Lactulose 20 GM/30 ML SOLUTION PO ×3 (09:43→22:18)
[2024-03-30] MEDS: Montelukast Sodium 10 MG TABLET PO (09:44)
[2024-03-30] MEDS: Sucralfate 1 GM TABLET PO ×3 (09:44→22:18)
[2024-03-30 11:37] LABS: Glucose, Whole Blood 91 mg/dL (60-115)
--- NOTE | 2024-03-30 15:13 | P.PNIM_ITS ---
Subjective Subjective Date of Service: 03/30/24 Interval History: This history was taken in Czech from the patient. C/o abdominal discomfort; no bleeding or diarrhea Review of Systems Review of Systems: Yes all other systems are reviewed and are negative Physical Exam 2 Vital Signs: Vital Signs: Last Vital Signs Temp 97.3 F 03/30/24 15:10 Pulse 80 03/30/24 15:10 Resp 20 03/30/24 15:10 BP 114/64 03/30/24 15:10 Pulse Ox 91 L 03/30/24 15:10 O2 Del Method Nasal Cannula 03/30/24 15:10 O2 Flow Rate 2 03/30/24 15:10 BMI result Body Mass Index 34.8 Gen: in no acute distress HEENT: sclera anicteric, moist mucus membranes Neck: supple Lungs: clear to auscultation bilaterally Heart: regular rate and rhythm, no murmurs Abd: soft, diffuse tenderness, non-distended Ext: no edema Skin: warm/well-perfused Neuro: alert and oriented x3, no focal findings Psych: restricted affect Objective Data Active Medications Acetaminophen (Acetaminophen 325 Mg Tablet) 650 mg PO Q6H PRN PRN Reason: Pain, Mild (Pain Scale 1-3), fever or headache Last Admin: 03/30/24 09:43 Dose: 650 mg Documented By: CHRIST Albuterol Sulfate (Albuterol Sulfate 90 Mcg 8 Gm Inhaler) 2 puff INHALE RQ6H PRN PRN Reason: Shortness Of Breath Or Wheezing Bisacodyl (Bisacodyl 5 Mg Tablet.Dr) 10 mg PO DAILY [facility] Last Admin: 03/30/24 09:42 Dose: 10 mg Documented By: CHRIST Calcium Carbonate (Calcium Carbonate 750 Mg Tab.Chew) 750 mg PO Q4H PRN PRN Reason: Heartburn Clonazepam (Clonazepam 0.5 Mg Tablet) 0.5 mg PO DAILY [facility] Last Admin: 03/30/24 09:42 Dose: 0.5 mg Documented By: CHRIST Clonazepam (Clonazepam 1 Mg Tablet) 1 mg PO BEDTIME [facility] Last Admin: 03/29/24 20:19 Dose: 1 mg Documented By: LAN Clozapine (Clozapine 100 Mg Tablet) 300 mg PO BEDTIME [facility] Last Admin: 03/29/24 20:19 Dose: 300 mg Documented By: LAN Diltiazem HCl (Diltiazem Hcl Cd 120 Mg Cap.Er.Deg) 120 mg PO DAILY [facility]; Protocol Last Admin: 03/30/24 09:42 Dose: 120 mg Documented By: CHRIST Divalproex Sodium (Divalproex Sodium Er 250 Mg Tab.Er.24h) 1,250 mg PO BEDTIME [facility] Last Admin: 03/29/24 20:19 Dose: 1,250 mg Documented By: LAN Docusate Sodium (Docusate Sodium 100 Mg Capsule) 100 mg PO BID [facility] Last Admin: 03/30/24 09:43 Dose: 100 mg Documented By: CHRIST Fluoxetine HCl (Fluoxetine Hcl 10 Mg Capsule) 30 mg PO DAILY [facility] Last Admin: 03/30/24 09:43 Dose: 30 mg Documented By: CHRIST Glucose (Glucose Gel 15 Gm Gel..Gram.) 15 gm PO Q15M PRN; Protocol PRN Reason: per Hypoglycemia Standing Ord. Dextrose (D10) 250 mls @ 750 mls/hr IV Q15M PRN; Protocol PRN Reason: per Hypoglycemia Standing Ord. Insulin Human Lispro (Insulin Lispro 100 Unit/Ml 3 Ml Vial) 0 unit SUBCUT Q6H [facility]; Protocol Last Admin: 03/30/24 11:47 Dose: Not Given Documented By: CHRIST Non-Admin Reason: No Insulin Coverage Lactulose (Lactulose 20 Gm/30 Ml Solution) 20 gm PO TID [facility] Last Admin: 03/30/24 09:43 Dose: 20 gm Documented By: CHRIST Lisinopril (Lisinopril 10 Mg Tablet) 10 mg PO BEDTIME [facility]; Protocol Last Admin: 03/29/24 20:19 Dose: 10 mg Documented By: LAN Magnesium Hydroxide (Milk Of Magnesia 30 Ml Oral.Susp) 30 ml PO DAILY PRN PRN Reason: Constipation Melatonin (Melatonin 3 Mg Tablet) 6 mg PO BEDTIME PRN PRN Reason: Insomnia Montelukast Sodium (Montelukast Sodium 10 Mg Tablet) 10 mg PO DAILY [facility] Last Admin: 03/30/24 09:44 Dose: 10 mg Documented By: CHRIST Morphine Sulfate (Morphine Sulfate 2 Mg/Ml Cartridge) 2 mg IVPUSH Q4H PRN; Protocol PRN Reason: Pain, Severe (Pain Scale 7-10) Last Admin: 03/30/24 13:55 Dose: 2 mg Documented By: CHRIST Ondansetron HCl (Ondansetron Hcl 4 Mg/2 Ml Vial) 4 mg IVPUSH Q8H PRN PRN Reason: Nausea and Vomiting Pantoprazole Sodium (Pantoprazole Sodium 40 Mg/10 Ml Vial) 40 mg IVPUSH BID@0630,1630 [facility] Last Admin: 03/30/24 06:03 Dose: 40 mg Documented By: LAN Polyethylene Glycol (Polyethylene Glycol 3350 17 Gm Powd.Pack) 17 gm PO DAILY PRN PRN Reason: Constipation Senna (Sennosides 8.6 Mg Tablet) 17.2 mg PO BEDTIME PRN PRN Reason: constipation Sodium Chloride (0.9 % Sodium Chloride Flush 3 Ml Syringe) 3 ml IVFLUSH QSHIFT [facility] Last Admin: 03/30/24 09:43 Dose: 3 ml Documented By: CHRIST Sucralfate (Sucralfate 1 Gm Tablet) 1 gm PO TID [facility] Last Admin: 03/30/24 09:44 Dose: 1 gm Documented By: CHRIST Labs 03/30/24 08:24 03/30/24 08:24 Labs: Laboratory Results - last 24 hr 03/29/24 03/29/24 03/30/24 16:04 22:05 05:21 MCV MCH MCHC RDW Plt Count MPV Absolute Nucleated RBC Nucleated RBC % (auto) Anion Gap Estim Creat Clear Calc Estimated GFR POC Glucose 85 86 89 Random Glucose Calcium Magnesium TSH 03/30/24 03/30/24 03/30/24 07:06 08:24 11:08 MCV 71.8 L MCH 20.7 L MCHC 28.8 L RDW 23.5 H Plt Count 309 MPV Not Reportable Absolute Nucleated RBC 0.070 H Nucleated RBC % (auto) 0.7 H Anion Gap 10 L Estim Creat Clear Calc 101.8 Estimated GFR > 60 POC Glucose 94 91 Random Glucose 86 Calcium 8.8 Magnesium 2.0 TSH 1.60 Assessment and Plan (1) Abdominal pain: Status: Acute (2) Anemia: Status: Acute Plan d3 58yo F with HTN, COPD, schizophrenia, GERD, DM2, mood disorder presenting with abd pain, found to have severe MARIELLA severe MARIELLA - transfused 1u pRBCs with improvement that is appropriate - no-show for outpt EGD 03/26; continue CLD and prep tomorrow for EGD + C-scope 04/01 - continue IV PPI constipation - continue bowel regimen RUQ tenderness - positive Vargas sign on US but no stones or wall thickening; HIDA shows patent cystic duct HTN - continue diltiazem, lisinopril schizophrenia - continue clozapine, clonazepam, Depakote, fluoxetine GERD - PPI DM2 - hold MTF, continue juan-dose lispro VTE ppx - SCDs dispo - eventual home In my clinical judgment, the patient requires continued inpatient hospitalization for the following reasons: inpt endoscopic evaluation Total time managing care of this patient today: 35 minutes. Quality Stroke Does the patient have a stroke diagnosis?: No VTE Prior VTE?: No VTE Risk Level:: Medical - moderate - high VTE Device Contraindication: N/A - Device Ordered VTE Drug Contraindication: Treatment Not Indicated
[2024-03-30 15:33] LABS: Glucose, Whole Blood 74 mg/dL (60-115)
[2024-03-30] MEDS: Milk of Magnesia 30 ML ORAL.SUSP PO (16:02)
[2024-03-30 19:48] LABS: Glucose, Whole Blood 93 mg/dL (60-115)
[2024-03-30] MEDS: Divalproex Sodium ER 250 MG TAB.ER.24H 1250 MG PO (22:18)
[2024-03-30] MEDS: cloZAPine 100 MG TABLET 300 MG PO (22:18)
[2024-03-30] MEDS: lisinopriL 10 MG TABLET PO (22:19)
[2024-03-30] MEDS: clonazePAM 1 MG TABLET PO (22:19)
[2024-03-31] VITALS (8 sets, daily range): BP systolic 117–139; BP diastolic 57–70; PULSE 76–95; RESP 18–20; TEMP 36.2–37.1; O2SAT 92–95
[2024-03-31 04:43] LABS: Glucose, Whole Blood 92 mg/dL (60-115)
[2024-03-31] MEDS: Pantoprazole Sodium 40 MG/10 ML VIAL IVPUSH ×2 (06:09→17:39)
[2024-03-31] MEDS: dilTIAZem HCL CD 120 MG CAP.ER.DEG PO (08:03)
[2024-03-31] MEDS: FLUoxetine HCl 10 MG CAPSULE 30 MG PO (08:03)
[2024-03-31] MEDS: Lactulose 20 GM/30 ML SOLUTION PO ×3 (08:03→20:32)
[2024-03-31] MEDS: bisacodyL 5 MG TABLET.DR 10 MG PO ×2 (08:03→13:30)
[2024-03-31] MEDS: clonazePAM 0.5 MG TABLET PO (08:03)
[2024-03-31] MEDS: Docusate Sodium 100 MG CAPSULE PO ×2 (08:03→20:31)
[2024-03-31] MEDS: polyethylene glycoL 3350 17 GM POWD.PACK PO (08:04)
[2024-03-31] MEDS: Sucralfate 1 GM TABLET PO ×3 (08:04→20:31)
[2024-03-31] MEDS: Montelukast Sodium 10 MG TABLET PO (08:04)
[2024-03-31] MEDS: Morphine Sulfate 2 MG/ML CARTRIDGE IVPUSH ×2 (08:09→22:47)
[2024-03-31] MEDS: 0.9 % Sodium Chloride Flush 3 ML SYRINGE IVFLUSH ×2 (08:10→15:28)
--- NOTE | 2024-03-31 09:53 | MHC.CM.PN ---
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 PCP/HCP ON FILE VERIFIED.
[2024-03-31 10:00] LABS: Glucose, Whole Blood 163 mg/dL (60-115)
--- NOTE | 2024-03-31 10:21 | HO.PM.IMPN ---
Subjective Subjective Date of Service: 03/31/24 Interval History: This history was taken in Yakut from the patient. C/o postprandial abd pain. No hematochezia or melena. Review of Systems Review of Systems: Yes all other systems are reviewed and are negative Physical Exam Vital Signs: Vital Signs: Last Vital Signs Temp 97.5 F 03/31/24 08:00 Pulse 90 03/31/24 08:00 Resp 19 03/31/24 08:00 BP 122/63 03/31/24 08:00 Pulse Ox 94 03/31/24 08:00 O2 Del Method Nasal Cannula 03/31/24 08:00 O2 Flow Rate 2 03/31/24 08:00 BMI result Body Mass Index 34.8 Gen: in no acute distress HEENT: sclera anicteric, moist mucus membranes Neck: supple Lungs: clear to auscultation bilaterally Heart: regular rate and rhythm, no murmurs Abd: soft, diffuse tenderness, non-distended Ext: no edema Skin: warm/well-perfused Neuro: alert and oriented x3, no focal findings Psych: restricted affect Objective Data Active Medications Acetaminophen (Acetaminophen 325 Mg Tablet) 650 mg PO Q6H PRN PRN Reason: Pain, Mild (Pain Scale 1-3), fever or headache Last Admin: 03/30/24 09:43 Dose: 650 mg Documented By: CHRIST Albuterol Sulfate (Albuterol Sulfate 90 Mcg 8 Gm Inhaler) 2 puff INHALE RQ6H PRN PRN Reason: Shortness Of Breath Or Wheezing Bisacodyl (Bisacodyl 5 Mg Tablet.) 10 mg PO DAILY [facility] Last Admin: 03/31/24 08:03 Dose: 10 mg Documented By: SHERRI Calcium Carbonate (Calcium Carbonate 750 Mg Tab.Chew) 750 mg PO Q4H PRN PRN Reason: Heartburn Clonazepam (Clonazepam 0.5 Mg Tablet) 0.5 mg PO DAILY [facility] Last Admin: 03/31/24 08:03 Dose: 0.5 mg Documented By: SHERRI Clonazepam (Clonazepam 1 Mg Tablet) 1 mg PO BEDTIME [facility] Last Admin: 03/30/24 22:19 Dose: 1 mg Documented By: BRANDI Clozapine (Clozapine 100 Mg Tablet) 300 mg PO BEDTIME [facility] Last Admin: 03/30/24 22:18 Dose: 300 mg Documented By: BRANDI Diltiazem HCl (Diltiazem Hcl Cd 120 Mg Cap.Er.Deg) 120 mg PO DAILY [facility]; Protocol Last Admin: 03/31/24 08:03 Dose: 120 mg Documented By: SHERRI Divalproex Sodium (Divalproex Sodium Er 250 Mg Tab.Er.24h) 1,250 mg PO BEDTIME [facility] Last Admin: 03/30/24 22:18 Dose: 1,250 mg Documented By: BRANDI Docusate Sodium (Docusate Sodium 100 Mg Capsule) 100 mg PO BID [facility] Last Admin: 03/31/24 08:03 Dose: 100 mg Documented By: SHERRI Fluoxetine HCl (Fluoxetine Hcl 10 Mg Capsule) 30 mg PO DAILY [facility] Last Admin: 03/31/24 08:03 Dose: 30 mg Documented By: SHERRI Glucose (Glucose Gel 15 Gm Gel..Gram.) 15 gm PO Q15M PRN; Protocol PRN Reason: per Hypoglycemia Standing Ord. Dextrose (D10) 250 mls @ 750 mls/hr IV Q15M PRN; Protocol PRN Reason: per Hypoglycemia Standing Ord. Insulin Human Lispro (Insulin Lispro 100 Unit/Ml 3 Ml Vial) 0 unit SUBCUT Q6H [facility]; Protocol Last Admin: 03/31/24 10:16 Dose: Not Given Documented By: SHERRI Non-Admin Reason: Patient Refused Lactulose (Lactulose 20 Gm/30 Ml Solution) 20 gm PO TID [facility] Last Admin: 03/31/24 08:03 Dose: 20 gm Documented By: SHERRI Lisinopril (Lisinopril 10 Mg Tablet) 10 mg PO BEDTIME [facility]; Protocol Last Admin: 03/30/24 22:19 Dose: 10 mg Documented By: BRANDI Magnesium Hydroxide (Milk Of Magnesia 30 Ml Oral.Susp) 30 ml PO DAILY PRN PRN Reason: Constipation Last Admin: 03/30/24 16:02 Dose: 30 ml Documented By: CHRIST Melatonin (Melatonin 3 Mg Tablet) 6 mg PO BEDTIME PRN PRN Reason: Insomnia Montelukast Sodium (Montelukast Sodium 10 Mg Tablet) 10 mg PO DAILY [facility] Last Admin: 03/31/24 08:04 Dose: 10 mg Documented By: SHERRI Morphine Sulfate (Morphine Sulfate 2 Mg/Ml Cartridge) 2 mg IVPUSH Q4H PRN; Protocol PRN Reason: Pain, Severe (Pain Scale 7-10) Last Admin: 03/31/24 08:09 Dose: 2 mg Documented By: SHERRI Ondansetron HCl (Ondansetron Hcl 4 Mg/2 Ml Vial) 4 mg IVPUSH Q8H PRN PRN Reason: Nausea and Vomiting Pantoprazole Sodium (Pantoprazole Sodium 40 Mg/10 Ml Vial) 40 mg IVPUSH BID@0630,1630 [facility] Last Admin: 03/31/24 06:09 Dose: 40 mg Documented By: LAFLAMCal Polyethylene Glycol (Polyethylene Glycol 3350 17 Gm Powd.Pack) 17 gm PO DAILY PRN PRN Reason: Constipation Last Admin: 03/31/24 08:04 Dose: 17 gm Documented By: SHERRI Senna (Sennosides 8.6 Mg Tablet) 17.2 mg PO BEDTIME PRN PRN Reason: constipation Sodium Chloride (0.9 % Sodium Chloride Flush 3 Ml Syringe) 3 ml IVFLUSH QSHIFT [facility] Last Admin: 03/31/24 08:10 Dose: 3 ml Documented By: SHERRI Sucralfate (Sucralfate 1 Gm Tablet) 1 gm PO TID [facility] Last Admin: 03/31/24 08:04 Dose: 1 gm Documented By: SHERRI Labs 03/30/24 08:24 03/30/24 08:24 Labs: Laboratory Results - last 24 hr 03/30/24 03/30/24 03/30/24 11:08 15:27 19:44 POC Glucose 91 74 93 03/31/24 03/31/24 04:39 09:52 POC Glucose 92 163 H Assessment and Plan (1) Abdominal pain: Status: Acute (2) Anemia: Status: Acute Plan d4 58yo F with HTN, COPD, schizophrenia, GERD, DM2, mood disorder presenting with abd pain, found to have severe MARIELLA severe MARIELLA - transfused 1u pRBCs with improvement in H+H - no-show for outpt EGD 03/26; continue CLD and prep for EGD + C-scope 04/01 - continue IV PPI constipation - continue bowel regimen RUQ tenderness - positive Vargas sign on US but no stones or wall thickening; HIDA shows patent cystic duct HTN - continue diltiazem, lisinopril schizophrenia - continue clozapine, clonazepam, Depakote, fluoxetine GERD - PPI DM2 - hold MTF, continue juan-dose lispro VTE ppx - SCDs dispo - eventual home In my clinical judgment, the patient requires continued inpatient hospitalization for the following reasons: inpt endoscopic evaluation Total time managing care of this patient today: 35 minutes. Quality Stroke Does the patient have a stroke diagnosis?: No VTE Prior VTE?: No VTE Risk Level:: Medical - moderate - high VTE Device Contraindication: N/A - Device Ordered VTE Drug Contraindication: Treatment Not Indicated
[2024-03-31 13:23] LABS: Immunoglobulin A 217 mg/dL (47-310)
[2024-03-31] MEDS: PEG 3350/Na Sulf,Bicarb,Cl/KCL 4,000 ML SOLN.RECON 4000 ML PO ×2 (15:25→19:13)
[2024-03-31 16:48] LABS: Glucose, Whole Blood 131 mg/dL (60-115)
[2024-03-31] MEDS: Acetaminophen 325 MG TABLET 650 MG PO (18:47)
[2024-03-31] MEDS: lisinopriL 10 MG TABLET PO (20:30)
[2024-03-31] MEDS: cloZAPine 100 MG TABLET 300 MG PO (20:31)
[2024-03-31] MEDS: clonazePAM 1 MG TABLET PO (20:31)
[2024-03-31] MEDS: Insulin Lispro 100 UNIT/ML 3 ML VIAL SUBCUT (20:32)
[2024-03-31] MEDS: Divalproex Sodium ER 250 MG TAB.ER.24H 1250 MG PO (20:32)
[2024-03-31 20:54] LABS: Glucose, Whole Blood 230 mg/dL (60-115)
[2024-03-31 21:24] LABS: Transglutaminase Ab IgG <1.0 U/mL; Transglutaminase IgA <1.0 U/mL
[2024-03-31 23:11] LABS: Glucose, Whole Blood 85 mg/dL (60-115)
[2024-04-01] VITALS (7 sets, daily range): BP systolic 112–142; BP diastolic 54–85; PULSE 85–97; RESP 16–20; TEMP 36–36.8; O2SAT 91–99
[2024-04-01] MEDS: Morphine Sulfate 2 MG/ML CARTRIDGE IVPUSH ×3 (04:13→16:18)
[2024-04-01] MEDS: Pantoprazole Sodium 40 MG/10 ML VIAL IVPUSH (05:29)
[2024-04-01 06:26] LABS: Glucose, Whole Blood 113 mg/dL (60-115)
[2024-04-01 07:54] LABS: Glucose, Whole Blood 86 mg/dL (60-115)
[2024-04-01 08:43] LABS: Hemoglobin 8.5 g/dl (12.0-16.0); Mean Corpuscular HGB Conc 28.3 g/dl (31.0-35.0); Mean Corpuscular Hemoglobin 20.6 pg (27.0-33.0); Mean Corpuscular Volume 72.6 fL (80.0-98.0); Mean Platelet Volume 10.2 fL (9.4-12.3); Platelet Count 323 X10*3/uL (160-400); Red Blood Count 4.13 X10*6/uL (4.20-5.50); Red Cell Distribution Width 24.4 % (11.0-16.0); White Blood Count 12.4 X10*3/uL (4.8-10.8)
[2024-04-01 09:13] LABS: Anion Gap 12 (12-20); Blood Urea Nitrogen 4 mg/dL (9-16); Calcium 8.7 mg/dL (8.4-10.2); Carbon Dioxide 32 mmol/L (22-29); Chloride 102 mmol/L (96-108); Creatinine Clr Calc Pharmacy 107.3; Estimated Glomerular Filt Rate > 60; Glucose Random 92 mg/dL (60-115); Potassium 3.7 mmol/L (3.3-5.1); Sodium 142 mmol/L (135-145)
[2024-04-01] MEDS: Docusate Sodium 100 MG CAPSULE PO ×2 (09:45→21:05)
[2024-04-01] MEDS: clonazePAM 0.5 MG TABLET PO (09:45)
[2024-04-01] MEDS: dilTIAZem HCL CD 120 MG CAP.ER.DEG PO (09:45)
[2024-04-01] MEDS: 0.9 % Sodium Chloride Flush 3 ML SYRINGE IVFLUSH ×4 (09:46→23:18)
[2024-04-01] MEDS: Sucralfate 1 GM TABLET PO ×3 (09:46→21:05)
[2024-04-01] MEDS: FLUoxetine HCl 10 MG CAPSULE 30 MG PO (09:46)
[2024-04-01] MEDS: Lactulose 20 GM/30 ML SOLUTION PO ×3 (09:48→21:03)
[2024-04-01] MEDS: Montelukast Sodium 10 MG TABLET PO (09:49)
--- NOTE | 2024-04-01 11:22 | MHC.CM.PN ---
Per rounds, pt is not ready for DC, she is having an endoscopy today. DCP is for her to go home where she has a network security officer that she lives with.
[2024-04-01 12:02] LABS: Glucose, Whole Blood 99 mg/dL (60-115)
--- NOTE | 2024-04-01 13:22 | P.PNIM_ITS ---
Subjective Subjective Date of Service: 04/01/24 Interval History: f/u on abd pain, anemia, constiation awaiting EGD/colonoscvopy Physical Exam 2 Vital Signs: Vital Signs: Last Vital Signs Temp 96.9 F 04/01/24 11:09 Pulse 97 04/01/24 11:09 Resp 16 04/01/24 11:09 BP 112/63 04/01/24 11:09 Pulse Ox 91 L 04/01/24 11:09 O2 Del Method Nasal Cannula 04/01/24 11:09 O2 Flow Rate 2 04/01/24 11:09 BMI result Body Mass Index 34.8 General: AO X 3, no acute distress Resp: CTA bilateral CVS: S1,S2,RRR GI: +BS, non-specific tenderness Skin: No rash Neuro: motor grossly intact Psych: appropriate affect Objective Data Active Medications Acetaminophen (Acetaminophen 325 Mg Tablet) 650 mg PO Q6H PRN PRN Reason: Pain, Mild (Pain Scale 1-3), fever or headache Last Admin: 03/31/24 18:47 Dose: 650 mg Documented By: SHERRI Albuterol Sulfate (Albuterol Sulfate 90 Mcg 8 Gm Inhaler) 2 puff INHALE RQ6H PRN PRN Reason: Shortness Of Breath Or Wheezing Calcium Carbonate (Calcium Carbonate 750 Mg Tab.Chew) 750 mg PO Q4H PRN PRN Reason: Heartburn Clonazepam (Clonazepam 0.5 Mg Tablet) 0.5 mg PO DAILY [facility] Last Admin: 04/01/24 09:45 Dose: 0.5 mg Documented By: SHERRI Clonazepam (Clonazepam 1 Mg Tablet) 1 mg PO BEDTIME [facility] Last Admin: 03/31/24 20:31 Dose: 1 mg Documented By: KRISTEN Clozapine (Clozapine 100 Mg Tablet) 300 mg PO BEDTIME [facility] Last Admin: 03/31/24 20:31 Dose: 300 mg Documented By: KRISTEN Diltiazem HCl (Diltiazem Hcl Cd 120 Mg Cap.Er.Deg) 120 mg PO DAILY [facility]; Protocol Last Admin: 04/01/24 09:45 Dose: 120 mg Documented By: SHERRI Divalproex Sodium (Divalproex Sodium Er 250 Mg Tab.Er.24h) 1,250 mg PO BEDTIME [facility] Last Admin: 03/31/24 20:32 Dose: 1,250 mg Documented By: KRISTEN Docusate Sodium (Docusate Sodium 100 Mg Capsule) 100 mg PO BID [facility] Last Admin: 04/01/24 09:45 Dose: 100 mg Documented By: SHERRI Fluoxetine HCl (Fluoxetine Hcl 10 Mg Capsule) 30 mg PO DAILY [facility] Last Admin: 04/01/24 09:46 Dose: 30 mg Documented By: SHERRI Glucose (Glucose Gel 15 Gm Gel..Gram.) 15 gm PO Q15M PRN; Protocol PRN Reason: per Hypoglycemia Standing Ord. Dextrose (D10) 250 mls @ 750 mls/hr IV Q15M PRN; Protocol PRN Reason: per Hypoglycemia Standing Ord. Insulin Human Lispro (Insulin Lispro 100 Unit/Ml 3 Ml Vial) 0 unit SUBCUT Q6H [facility]; Protocol Last Admin: 04/01/24 11:26 Dose: Not Given Documented By: SHERRI Non-Admin Reason: No Insulin Coverage Lactulose (Lactulose 20 Gm/30 Ml Solution) 20 gm PO TID [facility] Last Admin: 04/01/24 09:48 Dose: 20 gm Documented By: SHERRI Lisinopril (Lisinopril 10 Mg Tablet) 10 mg PO BEDTIME [facility]; Protocol Last Admin: 03/31/24 20:30 Dose: 10 mg Documented By: KRISTEN Magnesium Hydroxide (Milk Of Magnesia 30 Ml Oral.Susp) 30 ml PO DAILY PRN PRN Reason: Constipation Last Admin: 03/30/24 16:02 Dose: 30 ml Documented By: CHRIST Melatonin (Melatonin 3 Mg Tablet) 6 mg PO BEDTIME PRN PRN Reason: Insomnia Montelukast Sodium (Montelukast Sodium 10 Mg Tablet) 10 mg PO DAILY [facility] Last Admin: 04/01/24 09:49 Dose: 10 mg Documented By: SHERRI Morphine Sulfate (Morphine Sulfate 2 Mg/Ml Cartridge) 2 mg IVPUSH Q4H PRN; Protocol PRN Reason: Pain, Severe (Pain Scale 7-10) Last Admin: 04/01/24 09:55 Dose: 2 mg Documented By: SHERRI Ondansetron HCl (Ondansetron Hcl 4 Mg/2 Ml Vial) 4 mg IVPUSH Q8H PRN PRN Reason: Nausea and Vomiting Polyethylene Glycol (Polyethylene Glycol 3350 17 Gm Powd.Pack) 17 gm PO DAILY PRN PRN Reason: Constipation Last Admin: 03/31/24 08:04 Dose: 17 gm Documented By: SHERRI Senna (Sennosides 8.6 Mg Tablet) 17.2 mg PO BEDTIME PRN PRN Reason: constipation Sodium Chloride (0.9 % Sodium Chloride Flush 3 Ml Syringe) 3 ml IVFLUSH QSHIFT [facility] Last Admin: 04/01/24 09:46 Dose: 3 ml Documented By: SHERRI Sucralfate (Sucralfate 1 Gm Tablet) 1 gm PO TID [facility] Last Admin: 04/01/24 09:46 Dose: 1 gm Documented By: SHERRI Labs 04/01/24 08:18 04/01/24 08:18 Labs: Laboratory Results - last 24 hr 03/30/24 03/31/24 03/31/24 08:24 15:58 20:24 MCV MCH MCHC RDW Plt Count MPV Absolute Nucleated RBC Nucleated RBC % (auto) Anion Gap Estim Creat Clear Calc Estimated GFR POC Glucose 131 H 230 H Random Glucose Calcium IgA 217 Tiss Transglutamin IgG <1.0 Tiss Transglutamin IgA <1.0 03/31/24 04/01/24 04/01/24 23:06 06:17 07:46 MCV MCH MCHC RDW Plt Count MPV Absolute Nucleated RBC Nucleated RBC % (auto) Anion Gap Estim Creat Clear Calc Estimated GFR POC Glucose 85 113 86 Random Glucose Calcium IgA Tiss Transglutamin IgG Tiss Transglutamin IgA 04/01/24 04/01/24 08:18 11:14 MCV 72.6 L MCH 20.6 L MCHC 28.3 L RDW 24.4 H Plt Count 323 MPV 10.2 Absolute Nucleated RBC 0.000 Nucleated RBC % (auto) 0.0 Anion Gap 12 Estim Creat Clear Calc 107.3 Estimated GFR > 60 POC Glucose 99 Random Glucose 92 Calcium 8.7 IgA Tiss Transglutamin IgG Tiss Transglutamin IgA Assessment and Plan (1) Abdominal pain: Status: Acute (2) Anemia: Status: Acute Plan d5 58yo F with HTN, COPD, schizophrenia, GERD, DM2, mood disorder presenting with abd pain, found to have severe MARIELLA severe iron deficiciency anemia ( MARIELLA) - transfused 1u pRBCs with improvement in H+H - no-show for outpt EGD 03/26; continue clear liquid diet, possible EGD + [place] today constipation - continue bowel regimen RUQ tenderness - positive Vargas sign on US but no stones or wall thickening; HIDA shows patent cystic duct HTN - continue diltiazem, lisinopril schizophrenia - continue clozapine, clonazepam, Depakote, fluoxetine GERD - PPI DM2 - hold MTF, continue juan-dose lispro VTE ppx - SCDs dispo - eventual home In my clinical judgment, the patient requires continued inpatient hospitalization for the following reasons: inpt endoscopic evaluation Total time managing care of this patient today: 35 minutes. Quality Stroke Does the patient have a stroke diagnosis?: No VTE Prior VTE?: No VTE Risk Level:: Medical - moderate - high VTE Device Contraindication: N/A - Device Ordered VTE Drug Contraindication: Treatment Not Indicated
[2024-04-01 16:32] LABS: Glucose, Whole Blood 148 mg/dL (60-115)
[2024-04-01] MEDS: PEG 3350/Na Sulf,Bicarb,Cl/KCL 4,000 ML SOLN.RECON 4000 ML PO (19:38)
[2024-04-01] MEDS: cloZAPine 100 MG TABLET 300 MG PO (21:03)
[2024-04-01] MEDS: Divalproex Sodium ER 250 MG TAB.ER.24H 1250 MG PO (21:04)
[2024-04-01] MEDS: clonazePAM 1 MG TABLET PO (21:05)
[2024-04-01] MEDS: lisinopriL 10 MG TABLET PO (21:06)
[2024-04-01 23:10] LABS: Glucose, Whole Blood 222 mg/dL (60-115)
[2024-04-01] MEDS: Insulin Lispro 100 UNIT/ML 3 ML VIAL SUBCUT (23:26)
[2024-04-02] VITALS (9 sets, daily range): BP systolic 107–156; BP diastolic 48–77; PULSE 79–93; RESP 16–20; TEMP 36.1–36.6; O2SAT 94–100; BMI 34.8
[2024-04-02 05:27] LABS: Glucose, Whole Blood 78 mg/dL (60-115)
[2024-04-02] MEDS: Dextrose 5 % and Lactated Ring 1,000 ML 80 ML IVCONT ×2 (07:12→22:27)
[2024-04-02] MEDS: FLUoxetine HCl 10 MG CAPSULE 30 MG PO (08:35)
[2024-04-02] MEDS: Lactulose 20 GM/30 ML SOLUTION PO (08:35)
[2024-04-02] MEDS: Sucralfate 1 GM TABLET PO ×3 (08:35→20:53)
[2024-04-02] MEDS: Docusate Sodium 100 MG CAPSULE PO (08:35)
[2024-04-02] MEDS: clonazePAM 0.5 MG TABLET PO (08:35)
[2024-04-02] MEDS: Montelukast Sodium 10 MG TABLET PO (08:35)
[2024-04-02] MEDS: dilTIAZem HCL CD 120 MG CAP.ER.DEG PO (08:36)
--- NOTE | 2024-04-02 09:49 | HO.PM.IMPN ---
Subjective Subjective Date of Service: 04/02/24 Interval History: f/u on abd pain, anemia, constiation awaiting EGD/colonoscvopy no new issues Physical Exam Vital Signs: Vital Signs: Last Vital Signs Temp 97.2 F 04/02/24 08:00 Pulse 87 04/02/24 08:00 Resp 20 04/02/24 08:00 BP 124/66 04/02/24 08:00 Pulse Ox 94 04/02/24 08:00 O2 Del Method Room Air 04/02/24 08:00 O2 Flow Rate 2 04/02/24 03:15 BMI result Body Mass Index 34.8 General: AO X 3, no acute distress Resp: CTA bilateral CVS: S1,S2,RRR GI: +BS, non-specific tenderness Skin: No rash Neuro: motor grossly intact Psych: appropriate affect Objective Data Active Medications Acetaminophen (Acetaminophen 325 Mg Tablet) 650 mg PO Q6H PRN PRN Reason: Pain, Mild (Pain Scale 1-3), fever or headache Last Admin: 03/31/24 18:47 Dose: 650 mg Documented By: SHERRI Albuterol Sulfate (Albuterol Sulfate 90 Mcg 8 Gm Inhaler) 2 puff INHALE RQ6H PRN PRN Reason: Shortness Of Breath Or Wheezing Calcium Carbonate (Calcium Carbonate 750 Mg Tab.Chew) 750 mg PO Q4H PRN PRN Reason: Heartburn Clonazepam (Clonazepam 0.5 Mg Tablet) 0.5 mg PO DAILY [facility] Last Admin: 04/02/24 08:35 Dose: 0.5 mg Documented By: SHERRI Clonazepam (Clonazepam 1 Mg Tablet) 1 mg PO BEDTIME LAXMI Last Admin: 04/01/24 21:05 Dose: 1 mg Documented By: KRISTEN Clozapine (Clozapine 100 Mg Tablet) 300 mg PO BEDTIME LAXMI Last Admin: 04/01/24 21:03 Dose: 300 mg Documented By: KRISTEN Diltiazem HCl (Diltiazem Hcl Cd 120 Mg Cap.Er.Deg) 120 mg PO DAILY [facility]; Protocol Last Admin: 04/02/24 08:36 Dose: 120 mg Documented By: SHERRI Divalproex Sodium (Divalproex Sodium Er 250 Mg Tab.Er.24h) 1,250 mg PO BEDTIME LAXMI Last Admin: 04/01/24 21:04 Dose: 1,250 mg Documented By: KRISTEN Docusate Sodium (Docusate Sodium 100 Mg Capsule) 100 mg PO BID [facility] Last Admin: 04/02/24 08:35 Dose: 100 mg Documented By: SHERRI Fluoxetine HCl (Fluoxetine Hcl 10 Mg Capsule) 30 mg PO DAILY [facility] Last Admin: 04/02/24 08:35 Dose: 30 mg Documented By: SHERRI Glucose (Glucose Gel 15 Gm Gel..Gram.) 15 gm PO Q15M PRN; Protocol PRN Reason: per Hypoglycemia Standing Ord. Dextrose (D10) 250 mls @ 750 mls/hr IV Q15M PRN; Protocol PRN Reason: per Hypoglycemia Standing Ord. Dextrose/Lactated Ringer's (D5lr) 1,000 mls @ 80 mls/hr IVCONT .[id number] [facility] Last Admin: 04/02/24 07:12 Dose: 80 mls/hr Documented By: SHERRI Insulin Human Lispro (Insulin Lispro 100 Unit/Ml 3 Ml Vial) 0 unit SUBCUT Q6H [facility]; Protocol Last Admin: 04/02/24 05:26 Dose: Not Given Documented By: KRISTEN Non-Admin Reason: No Insulin Coverage Comments: BS 78 Lactulose (Lactulose 20 Gm/30 Ml Solution) 20 gm PO TID [facility] Last Admin: 04/02/24 08:35 Dose: 20 gm Documented By: SHERRI Lisinopril (Lisinopril 10 Mg Tablet) 10 mg PO BEDTIME [facility]; Protocol Last Admin: 04/01/24 21:06 Dose: 10 mg Documented By: KRISTEN Magnesium Hydroxide (Milk Of Magnesia 30 Ml Oral.Susp) 30 ml PO DAILY PRN PRN Reason: Constipation Last Admin: 03/30/24 16:02 Dose: 30 ml Documented By: CHRIST Melatonin (Melatonin 3 Mg Tablet) 6 mg PO BEDTIME PRN PRN Reason: Insomnia Montelukast Sodium (Montelukast Sodium 10 Mg Tablet) 10 mg PO DAILY [facility] Last Admin: 04/02/24 08:35 Dose: 10 mg Documented By: SHERRI Morphine Sulfate (Morphine Sulfate 2 Mg/Ml Cartridge) 2 mg IVPUSH Q4H PRN; Protocol PRN Reason: Pain, Severe (Pain Scale 7-10) Last Admin: 04/01/24 16:18 Dose: 2 mg Documented By: SHERRI Ondansetron HCl (Ondansetron Hcl 4 Mg/2 Ml Vial) 4 mg IVPUSH Q8H PRN PRN Reason: Nausea and Vomiting Polyethylene Glycol (Polyethylene Glycol 3350 17 Gm Powd.Pack) 17 gm PO DAILY PRN PRN Reason: Constipation Last Admin: 03/31/24 08:04 Dose: 17 gm Documented By: SHERRI Senna (Sennosides 8.6 Mg Tablet) 17.2 mg PO BEDTIME PRN PRN Reason: constipation Sodium Chloride (0.9 % Sodium Chloride Flush 3 Ml Syringe) 3 ml IVFLUSH QSHIFT [facility] Last Admin: 04/01/24 23:18 Dose: 3 ml Documented By: KRISTEN Sucralfate (Sucralfate 1 Gm Tablet) 1 gm PO TID [facility] Last Admin: 04/02/24 08:35 Dose: 1 gm Documented By: SHERRI Labs 04/01/24 08:18 04/01/24 08:18 Labs: Laboratory Results - last 24 hr 04/01/24 04/01/24 04/01/24 11:14 16:29 23:06 POC Glucose 99 148 H 222 H 04/02/24 05:24 POC Glucose 78 Assessment and Plan (1) Abdominal pain: Status: Acute (2) Anemia: Status: Acute Plan 58yo F with HTN, COPD, schizophrenia, GERD, DM2, mood disorder presenting with abd pain, found to have severe MARIELLA severe iron deficiciency anemia ( MARIELLA) - transfused 1u pRBCs with improvement in H+H - no-show for outpt EGD 03/26; continue clear liquid diet, possible EGD + [place] today constipation - continue bowel regimen RUQ tenderness - positive Vargas sign on US but no stones or wall thickening; HIDA shows patent cystic duct HTN - continue diltiazem, lisinopril schizophrenia - continue clozapine, clonazepam, Depakote, fluoxetine GERD - PPI DM2 - hold MTF, continue juan-dose lispro -IVF with glucose while NPO VTE ppx - SCDs dispo - eventual home In my clinical judgment, the patient requires continued inpatient hospitalization for the following reasons: inpt endoscopic evaluation Total time managing care of this patient today: 35 minutes. Quality Stroke Does the patient have a stroke diagnosis?: No VTE Prior VTE?: No VTE Risk Level:: Medical - moderate - high VTE Device Contraindication: N/A - Device Ordered VTE Drug Contraindication: Treatment Not Indicated
[2024-04-02 11:32] LABS: Glucose, Whole Blood 103 mg/dL (60-115)
[2024-04-02 11:33] LABS: Glucose, Whole Blood 93 mg/dL (60-115)
--- NOTE | 2024-04-02 12:16 | MHC.CM.PN ---
EMR REVIEWED, PLAN FOR EGD/COLONOSCOPY TODAY, NO PLAN FOR DC, ANTIC PT WILL RETURN HOME W/CAREGIVER ONCE MEDICALLY CLEARED, C[facility]GIVER [facility] WILL TRANSPORT.
--- NOTE | 2024-04-02 13:25 | P.CONAN_ITS ---
[facility] Active Problems Active Problems: All Active Problems Abdominal pain (Acute) Anemia (Acute) Anemia (Acute) Tachycardia (Acute) COVID-19 virus infection (Acute) Pre-diabetes (Acute) History of arthroplasty of right knee (Acute) Tricompartment osteoarthritis of left knee (Acute) Schizophrenia (Acute) Pneumonia due to COVID-19 virus (Acute) Hypoxia (Acute) Dehydration (Acute) Pneumonia due to COVID-19 virus (Acute) Hyperkalemia (Acute) Hyponatremia (Acute) CAP (community acquired pneumonia) (Acute) Ileus (Acute) Arthritis (Acute) Hypertension (Acute) Breast mass, right (Acute) Acute exacerbation of chronic obstructive airways disease (Acute) Community acquired pneumonia (Acute) Past Medical History Medical History Diabetes Morbid obesity due to excess calories Anxiety Chronic mental illness COPD (chronic obstructive pulmonary disease) Hyperlipidemia Schizophrenia Asthma Family History Family History Father Throat cancer Mother CVA (cerebral vascular accident) Brother Drug overdose Sister No problems noted. Sister No problems noted. Son No problems noted. Son No problems noted. Family history of problems with anesthesia: No Surgical History Surgical History Hx of colonoscopy History of tubal ligation H/O right knee surgery History of appendectomy History of Problems with Anesthesia: No 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 Other:: Lanny Soto, Inocencio Soto, - foster parents Housing: House Do you presently have visiting nurse or other home services: Yes Unable to assess alcohol history related to: Unknown Alcohol intake: never Comment: pt resting with eyes closed Patient Tobacco Use Status: Current everyday Tobacco user Tobacco use type: Cigarette Cigarettes Per Day: 10 e-Cigarette/Vaping Use: Never Used Second Hand Smoke Exposure: No Advance Directives Date on File: 12/13/22 service: No Current occupational status: disabled Sexual orientation: Straight/Heterosexual Meds Allergies Allergy/AdvReac Type Severity Reaction Status Date / Time diazepam [From Valium] Allergy Unknown Unknown Verified 03/28/24 13:58 haloperidol [From Haldol] Allergy Unknown Unknown Verified 03/28/24 13:58 Penicillins Allergy Unknown Unknown Verified 03/28/24 13:58 risperidone [From Risperdal] Allergy Unknown Unknown Verified 03/28/24 13:58 aspirin [Aspirin] AdvReac Intermediate Vomiting Verified 03/28/24 13:58 trazodone [TRAZODONE] AdvReac Intermediate NAUSEA & Verified 03/28/24 13:58 VOMITING Active Medications: bCurrent Medications Acetaminophen (Acetaminophen 325 Mg Tablet) 650 mg PO Q6H PRN PRN Reason: Pain, Mild (Pain Scale 1-3), fever or headache Last Admin: 03/31/24 18:47 Dose: 650 mg Albuterol Sulfate (Albuterol Sulfate 90 Mcg 8 Gm Inhaler) 2 puff INHALE RQ6H PRN PRN Reason: Shortness Of Breath Or Wheezing Calcium Carbonate (Calcium Carbonate 750 Mg Tab.Chew) 750 mg PO Q4H PRN PRN Reason: Heartburn Clonazepam (Clonazepam 0.5 Mg Tablet) 0.5 mg PO DAILY [facility] Last Admin: 04/02/24 08:35 Dose: 0.5 mg Clonazepam (Clonazepam 1 Mg Tablet) 1 mg PO BEDTIME LAXMI Last Admin: 04/01/24 21:05 Dose: 1 mg Clozapine (Clozapine 100 Mg Tablet) 300 mg PO BEDTIME LAXMI Last Admin: 04/01/24 21:03 Dose: 300 mg Diltiazem HCl (Diltiazem Hcl Cd 120 Mg Cap.Er.Deg) 120 mg PO DAILY [facility]; Protocol Last Admin: 04/02/24 08:36 Dose: 120 mg Divalproex Sodium (Divalproex Sodium Er 250 Mg Tab.Er.24h) 1,250 mg PO BEDTIME LAXMI Last Admin: 04/01/24 21:04 Dose: 1,250 mg Docusate Sodium (Docusate Sodium 100 Mg Capsule) 100 mg PO BID [facility] Last Admin: 04/02/24 08:35 Dose: 100 mg Fluoxetine HCl (Fluoxetine Hcl 10 Mg Capsule) 30 mg PO DAILY [facility] Last Admin: 04/02/24 08:35 Dose: 30 mg Glucose (Glucose Gel 15 Gm Gel..Gram.) 15 gm PO Q15M PRN; Protocol PRN Reason: per Hypoglycemia Standing Ord. Dextrose (D10) 250 mls @ 750 mls/hr IV Q15M PRN; Protocol PRN Reason: per Hypoglycemia Standing Ord. Dextrose/Lactated Ringer's (D5lr) 1,000 mls @ 80 mls/hr IVCONT .[id number] [facility] Last Admin: 04/02/24 07:12 Dose: 80 mls/hr Insulin Human Lispro (Insulin Lispro 100 Unit/Ml 3 Ml Vial) 0 unit SUBCUT Q6H [facility]; Protocol Last Admin: 04/02/24 11:17 Dose: Not Given Lactulose (Lactulose 20 Gm/30 Ml Solution) 20 gm PO TID [facility] Last Admin: 04/02/24 08:35 Dose: 20 gm Lisinopril (Lisinopril 10 Mg Tablet) 10 mg PO BEDTIME [facility]; Protocol Last Admin: 04/01/24 21:06 Dose: 10 mg Magnesium Hydroxide (Milk Of Magnesia 30 Ml Oral.Susp) 30 ml PO DAILY PRN PRN Reason: Constipation Last Admin: 03/30/24 16:02 Dose: 30 ml Melatonin (Melatonin 3 Mg Tablet) 6 mg PO BEDTIME PRN PRN Reason: Insomnia Montelukast Sodium (Montelukast Sodium 10 Mg Tablet) 10 mg PO DAILY [facility] Last Admin: 04/02/24 08:35 Dose: 10 mg Morphine Sulfate (Morphine Sulfate 2 Mg/Ml Cartridge) 2 mg IVPUSH Q4H PRN; Protocol PRN Reason: Pain, Severe (Pain Scale 7-10) Last Admin: 04/01/24 16:18 Dose: 2 mg Ondansetron HCl (Ondansetron Hcl 4 Mg/2 Ml Vial) 4 mg IVPUSH Q8H PRN PRN Reason: Nausea and Vomiting Polyethylene Glycol (Polyethylene Glycol 3350 17 Gm Powd.Pack) 17 gm PO DAILY PRN PRN Reason: Constipation Last Admin: 03/31/24 08:04 Dose: 17 gm Senna (Sennosides 8.6 Mg Tablet) 17.2 mg PO BEDTIME PRN PRN Reason: constipation Sodium Chloride (0.9 % Sodium Chloride Flush 3 Ml Syringe) 3 ml IVFLUSH QSHIFT [facility] Last Admin: 04/01/24 23:18 Dose: 3 ml Sucralfate (Sucralfate 1 Gm Tablet) 1 gm PO TID [facility] Last Admin: 04/02/24 08:35 Dose: 1 gm Home Medications ?Medication ?Instructions ?Recorded ?Confirmed ?Last Taken ?Type sennosides 8.6 mg tablet (senna) 17.2 mg PO BEDTIME PRN constipation 12/13/22 03/29/24 12/12/22 History albuterol sulfate 2.5 mg/3 mL 2.5 mg inhalation Q4H PRN wheezing 06/18/23 03/29/24 Unknown History (0.083 %) solution for nebulization albuterol sulfate 90 mcg/actuation 2 puff inhalation Q6H PRN 06/18/23 03/29/24 Unknown History aerosol inhaler (Ventolin HFA) Shortness Of Breath Or Wheezing sucralfate 1 gram tablet 1 g PO TID 06/18/23 03/29/24 03/28/24 History tramadol 50 mg tablet 50 mg PO TID PRN Severe Pain 06/18/23 03/29/24 Unknown History (Scale Score 7-10) polyethylene glycol 3350 17 gram 17 g PO TID PRN Constipation 08/10/23 03/29/24 Unknown History oral powder packet divalproex 500 mg tablet,extended 1,250 mg PO BEDTIME 10/01/23 03/29/24 03/28/24 History release 24 hr clonazepam 0.5 mg tablet 0.5 mg PO DAILY 03/29/24 03/29/24 03/28/24 History lisinopril 10 mg tablet 10 mg PO BEDTIME 03/29/24 03/29/24 03/28/24 History Exam Height,Weight and Vital Signs: Height 5 ft 1 in Weight 83.5 kg Last Vital Signs Temp 97 F 04/02/24 13:02 Pulse 87 04/02/24 13:02 Resp 16 04/02/24 13:02 BP 139/74 04/02/24 13:02 Pulse Ox 98 04/02/24 13:02 O2 Del Method Nasal Cannula 04/02/24 13:02 O2 Flow Rate 2 04/02/24 13:02 Pertinent Lab Results Pertinent Lab Results: Laboratory Tests 03/28/24 03/28/24 03/28/24 14:23 15:24 19:10 WBC 9.4 RBC 3.39 L Hgb 6.5 L* Hct 23.6 L MCV 69.6 L MCH 19.2 L MCHC 27.5 L RDW 22.4 H Plt Count 315 MPV 10.6 Immature Gran % (Auto) 1.5 H Neut % (Auto) 66.1 Lymph % (Auto) 23.6 Terry % (Auto) 7.4 Eos % (Auto) 1.1 Baso % (Auto) 0.3 Lymph # (Auto) 2.2 Terry # (Auto) 0.7 Eos # (Auto) 0.1 Baso # (Auto) 0.0 Abs Immat Gran (auto) 0.14 H Absolute Neuts (auto) 6.2 Absolute Nucleated RBC 0.080 H Nucleated RBC % (auto) 0.9 H Smear Tech's Comments VERIFIED Smear Path Review Sodium 140 Potassium 3.9 Chloride 104 Carbon Dioxide 26 Anion Gap 14 BUN 10 Creatinine 0.55 Estim Creat Clear Calc 109.7 Estimated GFR > 60 POC Glucose Random Glucose 143 H Calcium 8.8 D Magnesium 1.8 Iron TIBC % Saturation Unsat Iron Binding Total Bilirubin 0.3 Direct Bilirubin 0.1 AST 12 ALT 16 Alkaline Phosphatase 77 Troponin I High Sens < 2.7 Total Protein 6.5 Albumin 3.7 Lipase 21 TSH Urine Color Yellow Urine Appearance Clear Urine pH 6.0 Ur Specific [place] 1.020 Urine Protein Negative Urine Glucose (UA) Negative Urine Ketones Trace Urine Blood Negative Urine Nitrite Negative Ur Leukocyte Esterase Trace H Urine RBC 0-2 Urine WBC 0-5 Ur Squamous Epith Cells 3-5 Urine Bacteria None Seen Hyaline Casts 0-2 Stool Occult Blood NEGATIVE IgA Tiss Transglutamin IgG Tiss Transglutamin IgA Influenza Type A (PCR) NEGATIVE Influenza Type B (PCR) NEGATIVE RSV RNA Qual (PCR) NEGATIVE SARS-CoV-2 RNA (RT-PCR) NEGATIVE Blood Type O Positive Antibody Screen NEGATIVE Crossmatch See Detail 03/28/24 03/29/24 03/29/24 22:31 00:07 04:50 WBC 9.9 RBC 4.12 L D Hgb 8.4 L D Hct 29.6 L D MCV 71.8 L MCH 20.4 L MCHC 28.4 L RDW 23.5 H Plt Count 299 MPV Not Reportable Immature Gran % (Auto) 1.5 H Neut % (Auto) 55.9 Lymph % (Auto) 32.2 Terry % (Auto) 8.8 Eos % (Auto) 1.2 Baso % (Auto) 0.4 Lymph # (Auto) 3.2 Terry # (Auto) 0.9 Eos # (Auto) 0.1 Baso # (Auto) 0.0 Abs Immat Gran (auto) 0.15 H Absolute Neuts (auto) 5.6 Absolute Nucleated RBC 0.070 H Nucleated RBC % (auto) 0.7 H Smear Tech's Comments Smear Path Review Sodium 141 Potassium 3.8 Chloride 104 Carbon Dioxide 28 Anion Gap 13 BUN 11 Creatinine 0.57 Estim Creat Clear Calc 105.8 Estimated GFR > 60 POC Glucose 87 Random Glucose 91 Calcium 9.2 Magnesium Iron 18 L TIBC 476 H % Saturation 4 L Unsat Iron Binding 458 Total Bilirubin Direct Bilirubin AST ALT Alkaline Phosphatase Troponin I High Sens Total Protein Albumin Lipase TSH Urine Color Urine Appearance Urine pH Ur Specific [place] Urine Protein Urine Glucose (UA) Urine Ketones Urine Blood Urine Nitrite Ur Leukocyte Esterase Urine RBC Urine WBC Ur Squamous Epith Cells Urine Bacteria Hyaline Casts Stool Occult Blood IgA Tiss Transglutamin IgG Tiss Transglutamin IgA Influenza Type A (PCR) Influenza Type B (PCR) RSV RNA Qual (PCR) SARS-CoV-2 RNA (RT-PCR) Blood Type Antibody Screen Crossmatch 03/29/24 03/29/24 03/29/24 06:05 10:55 16:04 WBC RBC Hgb Hct MCV MCH MCHC RDW Plt Count MPV Immature Gran % (Auto) Neut % (Auto) Lymph % (Auto) Terry % (Auto) Eos % (Auto) Baso % (Auto) Lymph # (Auto) Terry # (Auto) Eos # (Auto) Baso # (Auto) Abs Immat Gran (auto) Absolute Neuts (auto) Absolute Nucleated RBC Nucleated RBC % (auto) Smear Tech's Comments Smear Path Review Sodium Potassium Chloride Carbon Dioxide Anion Gap BUN Creatinine Estim Creat Clear Calc Estimated GFR POC Glucose 89 90 85 Random Glucose Calcium Magnesium Iron TIBC % Saturation Unsat Iron Binding Total Bilirubin Direct Bilirubin AST ALT Alkaline Phosphatase Troponin I High Sens Total Protein Albumin Lipase TSH Urine Color Urine Appearance Urine pH Ur Specific [place] Urine Protein Urine Glucose (UA) Urine Ketones Urine Blood Urine Nitrite Ur Leukocyte Esterase Urine RBC Urine WBC Ur Squamous Epith Cells Urine Bacteria Hyaline Casts Stool Occult Blood IgA Tiss Transglutamin IgG Tiss Transglutamin IgA Influenza Type A (PCR) Influenza Type B (PCR) RSV RNA Qual (PCR) SARS-CoV-2 RNA (RT-PCR) Blood Type Antibody Screen Crossmatch 03/29/24 03/30/24 03/30/24 22:05 05:21 07:06 WBC RBC Hgb Hct MCV MCH MCHC RDW Plt Count MPV Immature Gran % (Auto) Neut % (Auto) Lymph % (Auto) Terry % (Auto) Eos % (Auto) Baso % (Auto) Lymph # (Auto) Terry # (Auto) Eos # (Auto) Baso # (Auto) Abs Immat Gran (auto) Absolute Neuts (auto) Absolute Nucleated RBC Nucleated RBC % (auto) Smear Tech's Comments Smear Path Review Sodium Potassium Chloride Carbon Dioxide Anion Gap BUN Creatinine Estim Creat Clear Calc Estimated GFR POC Glucose 86 89 94 Random Glucose Calcium Magnesium Iron TIBC % Saturation Unsat Iron Binding Total Bilirubin Direct Bilirubin AST ALT Alkaline Phosphatase Troponin I High Sens Total Protein Albumin Lipase TSH Urine Color Urine Appearance Urine pH Ur Specific [place] Urine Protein Urine Glucose (UA) Urine Ketones Urine Blood Urine Nitrite Ur Leukocyte Esterase Urine RBC Urine WBC Ur Squamous Epith Cells Urine Bacteria Hyaline Casts Stool Occult Blood IgA Tiss Transglutamin IgG Tiss Transglutamin IgA Influenza Type A (PCR) Influenza Type B (PCR) RSV RNA Qual (PCR) SARS-CoV-2 RNA (RT-PCR) Blood Type Antibody Screen Crossmatch 03/30/24 03/30/24 03/30/24 08:24 11:08 15:27 WBC 10.0 RBC 3.97 L Hgb 8.2 L Hct 28.5 L MCV 71.8 L MCH 20.7 L MCHC 28.8 L RDW 23.5 H Plt Count 309 MPV Not Reportable Immature Gran % (Auto) Neut % (Auto) Lymph % (Auto) Terry % (Auto) Eos % (Auto) Baso % (Auto) Lymph # (Auto) Terry # (Auto) Eos # (Auto) Baso # (Auto) Abs Immat Gran (auto) Absolute Neuts (auto) Absolute Nucleated RBC 0.070 H Nucleated RBC % (auto) 0.7 H Smear Tech's Comments Smear Path Review Sodium 138 Potassium 4.0 Chloride 101 Carbon Dioxide 31 H Anion Gap 10 L BUN 8 L Creatinine 0.59 Estim Creat Clear Calc 101.8 Estimated GFR > 60 POC Glucose 91 74 Random Glucose 86 Calcium 8.8 Magnesium 2.0 Iron TIBC % Saturation Unsat Iron Binding Total Bilirubin Direct Bilirubin AST ALT Alkaline Phosphatase Troponin I High Sens Total Protein Albumin Lipase TSH 1.60 Urine Color Urine Appearance Urine pH Ur Specific [place] Urine Protein Urine Glucose (UA) Urine Ketones Urine Blood Urine Nitrite Ur Leukocyte Esterase Urine RBC Urine WBC Ur Squamous Epith Cells Urine Bacteria Hyaline Casts Stool Occult Blood IgA 217 Tiss Transglutamin IgG <1.0 Tiss Transglutamin IgA <1.0 Influenza Type A (PCR) Influenza Type B (PCR) RSV RNA Qual (PCR) SARS-CoV-2 RNA (RT-PCR) Blood Type Antibody Screen Crossmatch 03/30/24 03/31/24 03/31/24 19:44 04:39 09:52 WBC RBC Hgb Hct MCV MCH MCHC RDW Plt Count MPV Immature Gran % (Auto) Neut % (Auto) Lymph % (Auto) Terry % (Auto) Eos % (Auto) Baso % (Auto) Lymph # (Auto) Terry # (Auto) Eos # (Auto) Baso # (Auto) Abs Immat Gran (auto) Absolute Neuts (auto) Absolute Nucleated RBC Nucleated RBC % (auto) Smear Tech's Comments Smear Path Review Sodium Potassium Chloride Carbon Dioxide Anion Gap BUN Creatinine Estim Creat Clear Calc Estimated GFR POC Glucose 93 92 163 H Random Glucose Calcium Magnesium Iron TIBC % Saturation Unsat Iron Binding Total Bilirubin Direct Bilirubin AST ALT Alkaline Phosphatase Troponin I High Sens Total Protein Albumin Lipase TSH Urine Color Urine Appearance Urine pH Ur Specific [place] Urine Protein Urine Glucose (UA) Urine Ketones Urine Blood Urine Nitrite Ur Leukocyte Esterase Urine RBC Urine WBC Ur Squamous Epith Cells Urine Bacteria Hyaline Casts Stool Occult Blood IgA Tiss Transglutamin IgG Tiss Transglutamin IgA Influenza Type A (PCR) Influenza Type B (PCR) RSV RNA Qual (PCR) SARS-CoV-2 RNA (RT-PCR) Blood Type Antibody Screen Crossmatch 03/31/24 03/31/24 03/31/24 15:58 20:24 23:06 WBC RBC Hgb Hct MCV MCH MCHC RDW Plt Count MPV Immature Gran % (Auto) Neut % (Auto) Lymph % (Auto) Terry % (Auto) Eos % (Auto) Baso % (Auto) Lymph # (Auto) Terry # (Auto) Eos # (Auto) Baso # (Auto) Abs Immat Gran (auto) Absolute Neuts (auto) Absolute Nucleated RBC Nucleated RBC % (auto) Smear Tech's Comments Smear Path Review Sodium Potassium Chloride Carbon Dioxide Anion Gap BUN Creatinine Estim Creat Clear Calc Estimated GFR POC Glucose 131 H 230 H 85 Random Glucose Calcium Magnesium Iron TIBC % Saturation Unsat Iron Binding Total Bilirubin Direct Bilirubin AST ALT Alkaline Phosphatase Troponin I High Sens Total Protein Albumin Lipase TSH Urine Color Urine Appearance Urine pH Ur Specific [place] Urine Protein Urine Glucose (UA) Urine Ketones Urine Blood Urine Nitrite Ur Leukocyte Esterase Urine RBC Urine WBC Ur Squamous Epith Cells Urine Bacteria Hyaline Casts Stool Occult Blood IgA Tiss Transglutamin IgG Tiss Transglutamin IgA Influenza Type A (PCR) Influenza Type B (PCR) RSV RNA Qual (PCR) SARS-CoV-2 RNA (RT-PCR) Blood Type Antibody Screen Crossmatch 04/01/24 04/01/24 04/01/24 06:17 07:46 08:18 WBC 12.4 H RBC 4.13 L Hgb 8.5 L Hct 30.0 L MCV 72.6 L MCH 20.6 L MCHC 28.3 L RDW 24.4 H Plt Count 323 MPV 10.2 Immature Gran % (Auto) Neut % (Auto) Lymph % (Auto) Terry % (Auto) Eos % (Auto) Baso % (Auto) Lymph # (Auto) Terry # (Auto) Eos # (Auto) Baso # (Auto) Abs Immat Gran (auto) Absolute Neuts (auto) Absolute Nucleated RBC 0.000 Nucleated RBC % (auto) 0.0 Smear Tech's Comments Smear Path Review Sodium 142 Potassium 3.7 Chloride 102 Carbon Dioxide 32 H Anion Gap 12 BUN 4 L Creatinine 0.56 Estim Creat Clear Calc 107.3 Estimated GFR > 60 POC Glucose 113 86 Random Glucose 92 Calcium 8.7 Magnesium Iron TIBC % Saturation Unsat Iron Binding Total Bilirubin Direct Bilirubin AST ALT Alkaline Phosphatase Troponin I High Sens Total Protein Albumin Lipase TSH Urine Color Urine Appearance Urine pH Ur Specific [place] Urine Protein Urine Glucose (UA) Urine Ketones Urine Blood Urine Nitrite Ur Leukocyte Esterase Urine RBC Urine WBC Ur Squamous Epith Cells Urine Bacteria Hyaline Casts Stool Occult Blood IgA Tiss Transglutamin IgG Tiss Transglutamin IgA Influenza Type A (PCR) Influenza Type B (PCR) RSV RNA Qual (PCR) SARS-CoV-2 RNA (RT-PCR) Blood Type Antibody Screen Crossmatch 04/01/24 04/01/24 04/01/24 11:14 16:29 23:06 WBC RBC Hgb Hct MCV MCH MCHC RDW Plt Count MPV Immature Gran % (Auto) Neut % (Auto) Lymph % (Auto) Terry % (Auto) Eos % (Auto) Baso % (Auto) Lymph # (Auto) Terry # (Auto) Eos # (Auto) Baso # (Auto) Abs Immat Gran (auto) Absolute Neuts (auto) Absolute Nucleated RBC Nucleated RBC % (auto) Smear Tech's Comments Smear Path Review Sodium Potassium Chloride Carbon Dioxide Anion Gap BUN Creatinine Estim Creat Clear Calc Estimated GFR POC Glucose 99 148 H 222 H Random Glucose Calcium Magnesium Iron TIBC % Saturation Unsat Iron Binding Total Bilirubin Direct Bilirubin AST ALT Alkaline Phosphatase Troponin I High Sens Total Protein Albumin Lipase TSH Urine Color Urine Appearance Urine pH Ur Specific [place] Urine Protein Urine Glucose (UA) Urine Ketones Urine Blood Urine Nitrite Ur Leukocyte Esterase Urine RBC Urine WBC Ur Squamous Epith Cells Urine Bacteria Hyaline Casts Stool Occult Blood IgA Tiss Transglutamin IgG Tiss Transglutamin IgA Influenza Type A (PCR) Influenza Type B (PCR) RSV RNA Qual (PCR) SARS-CoV-2 RNA (RT-PCR) Blood Type Antibody Screen Crossmatch 04/02/24 04/02/24 04/02/24 05:24 11:11 11:29 WBC RBC Hgb Hct MCV MCH MCHC RDW Plt Count MPV Immature Gran % (Auto) Neut % (Auto) Lymph % (Auto) Terry % (Auto) Eos % (Auto) Baso % (Auto) Lymph # (Auto) Terry # (Auto) Eos # (Auto) Baso # (Auto) Abs Immat Gran (auto) Absolute Neuts (auto) Absolute Nucleated RBC Nucleated RBC % (auto) Smear Tech's Comments Smear Path Review Sodium Potassium Chloride Carbon Dioxide Anion Gap BUN Creatinine Estim Creat Clear Calc Estimated GFR POC Glucose 78 103 93 Random Glucose Calcium Magnesium Iron TIBC % Saturation Unsat Iron Binding Total Bilirubin Direct Bilirubin AST ALT Alkaline Phosphatase Troponin I High Sens Total Protein Albumin Lipase TSH Urine Color Urine Appearance Urine pH Ur Specific [place] Urine Protein Urine Glucose (UA) Urine Ketones Urine Blood Urine Nitrite Ur Leukocyte Esterase Urine RBC Urine WBC Ur Squamous Epith Cells Urine Bacteria Hyaline Casts Stool Occult Blood IgA Tiss Transglutamin IgG Tiss Transglutamin IgA Influenza Type A (PCR) Influenza Type B (PCR) RSV RNA Qual (PCR) SARS-CoV-2 RNA (RT-PCR) Blood Type Antibody Screen Crossmatch Airway Mallampati Class: II (missing ,ultiple teeth , denies anything loose) TM Dist: >3cm Neck ROM: Full Heart: rrr Lungs: cta Assessment and Plan Assessment Anesthesia Assessment: Anesthesia Plan Discussed and Chart Reviewed Final Anesthetic Review Family History of Problems with Anesthesia: No History of Problems with Anesthesia: No NPO: Yes ASA Class: III Final Preanesthetic Review: No Changes in Pt Med Stat, Meds/Allgs Chart Reviewed and Consent Obtained/Reviewed Patient Risk: Intermediate Procedure Risk: Intermediate Anesthetic Plan Anesthetic Plan: MAC: Disposition: Standard PACU
--- NOTE | 2024-04-02 13:28 | P.PNGI_ITS ---
Subjective Subjective Date of Service: 04/02/24 Interval History: she feels well no abdominal pain no nausea or vomiting no melena or rectal bleeding Critical Care Time (minutes): 0 Physical Exam 2 Vital Signs: Vital Signs: Last Vital Signs Temp 97 F 04/02/24 13:02 Pulse 87 04/02/24 13:02 Resp 16 04/02/24 13:02 BP 139/74 04/02/24 13:02 Pulse Ox 98 04/02/24 13:02 O2 Del Method Nasal Cannula 04/02/24 13:02 O2 Flow Rate 2 04/02/24 13:02 BMI result Body Mass Index 34.8 EXAM: GENERAL: The patient is relaxed VITAL SIGNS:see workflow HEENT: Nonicteric sclerae, PERRLA, EOMI. Oropharynx clear. Moist mucous membranes. Conjunctivae appear well perfused. No thyroid mass. CHEST: Chest wall is nontender. HEART: Regular rate and rhythm without murmurs. LUNGS: Clear to auscultation bilaterally. ABDOMEN: Soft, positive bowel sounds, nontender, no organomegaly.no flank tenderness SKIN: No rash, no excessive bruising, petechiae, or purpura. NEUROLOGIC: Cranial nerves II-XII intact without motor/sensory deficit. Psych: normal affect Objective Data Labs 04/01/24 08:18 04/01/24 08:18 Labs: Laboratory Results - last 24 hr 04/01/24 04/01/24 04/02/24 16:29 23:06 05:24 POC Glucose 148 H 222 H 78 04/02/24 04/02/24 11:11 11:29 POC Glucose 103 93 Procedures Date of Service Date of Service: 04/02/24 Progress Note: A&P Assessment and plan (1) Anemia: Status: Acute Plan 1. Anemia, uncertain etiology, no overt bleeding PLAN: 1/ EGD and colo today for further assessment Time Spent With Patient Time: Total time managing care of this patient today ____ minutes. Quality Stroke Does the patient have a stroke diagnosis?: No VTE Prior VTE?: No VTE Risk Level:: Medical - moderate - high VTE Device Contraindication: N/A - Device Ordered VTE Drug Contraindication: Treatment Not Indicated
--- NOTE | 2024-04-02 13:30 | MHC.SHP ---
Pre-Procedural Eval Section A - 24 Hr Update-Section A only Date of Service: 04/02/24 The patient is an INPATIENT: Yes The patient has been examined within 24 hours of the surgical procedure. The History & Physical has been completed within 30 days and I have reviewed it.: Yes Section B - Complete if H&P > 30 days Chief Complaint: abd pain Allergies: Allergies Allergy/AdvReac Type Severity Reaction Status Date / Time diazepam [From Valium] Allergy Unknown Unknown Verified 03/28/24 13:58 haloperidol [From Haldol] Allergy Unknown Unknown Verified 03/28/24 13:58 Penicillins Allergy Unknown Unknown Verified 03/28/24 13:58 risperidone [From Risperdal] Allergy Unknown Unknown Verified 03/28/24 13:58 aspirin [Aspirin] AdvReac Intermediate Vomiting Verified 03/28/24 13:58 trazodone [TRAZODONE] AdvReac Intermediate NAUSEA & Verified 03/28/24 13:58 VOMITING Plan Diagnosis/Plan: Unchanged I have reviewed the history and physical and performed a pertinent physical examination on my patient. No changes have occurred unless specified. egd, and colo Time Spent With Patient Time: Total time managing care of this patient today ____ minutes.
--- NOTE | 2024-04-02 14:22 | P.OPN-COLO_ITS ---
Colonoscopy Operative Note Operative Note Date of Service: 04/02/24 Narrative: Operative Information Procedure Description: EGD, Colonoscopy Indication: anemia Anesthesia: MAC FLEXIBLE TRANSORAL UPPER GASTROINTESTINAL ENDOSCOPY AND COLONOSCOPY PROCEDURE NOTE UPPER ENDOSCOPY Consent: Indications for the procedure and potential complications of bleeding, perforation, reaction to medications and missed diagnosis were discussed with the patient and informed consent was obtained. Instrument: Olympus GIF H 190 J mid size upper endoscope Monitoring: Vital signs and clinical assessment, continuous EKG monitoring, Pulse oximetry, Carbon Dioxide monitoring and blood pressure monitoring were done throughout the procedure. Procedure: The patient was placed in the left lateral decubitis position and pre-procedure medications were administered and a bite block was placed. The endoscope was inserted into the mouth and advanced under direct vision to the third part of duodenum. A careful inspection was made as the upper endoscope was withdrawn including a retroflexed examination of the proximal stomach; Findings and interventions are described below. Findings: Larynx:normal Esophagus: GE junction at 40 cm, diaphragm hiatus at 40 cm, normal mucosa Stomach: mild gastritis. Biopsies were obtained. Grade 2 flap valve on retroflexed examination of the cardia. Duodenum: Normal bulb and descending duodenum, Intervention: Biopsies as noted above, COLONOSCOPY Instrument: Olympus variable stiffness pediatric scope 190L Colonoscopy Monitoring: Vital signs and clinical assessment, continuous EKG monitoring, Pulse oximetry, Carbon Dioxide monitoring and blood pressure monitoring were done throughout the procedure. Colon withdrawal time was 10 minutes. Procedure: The patient was placed in the left lateral decubitis position and pre-procedure medications were administered. After a digital rectal examination of the ano-rectum, the video colonoscope was inserted into the rectum and advanced through the colon to the cecum/TI. The colonoscope was slowly withdrawn in a retrograde panoramic fashion and the colon mucosa was carefully examined including a retroflexed view of the rectum. Findings and interventions are described below. Procedure Difficulty: v difficult due to looping and lack of muscle tone Findings: Terminal Ileum-not intubated melanosis coli noted Cecum:normal Ascending Colon: normal Transverse Colon -normal Descending Colon:normal Sigmoid Colon: normal Rectum: Retroflexion with small internal hemorrhoids, grade I Anorectum - normal Colon preparation: [place] Bowel Preparation Scale Right colon; 1-2 Transverse colon: 2 Left colon; 3 (0 = Unprepared colon segment with mucosa not seen due to solid stool that cannot be cleared. 1 = Portion of mucosa of the colon segment seen, but other areas of the colon segment not well seen due to staining, residual stool and/or opaque liquid. 2 = Minor amount of residual staining, small fragments of stool and/or opaque liquid, but mucosa of colon segment seen well. 3 = Entire mucosa of colon segment seen well with no residual staining, small fragments of stool or opaque liquid) Impression and Post Procedure Diagnosis: Endoscopy Findings: mild gastritis Colonoscopy Findings: tortuous colon melanosis coli internal hemorrhoids Plan: Await Pathology results Repeat Colonoscopy in 5 years or earlier if clinically indicated High fiber diet leaflet avoid straining at stool, epsom salts and sitz bath, anusol supps or cream o/p capsule endo-- r/o other causes of anemia, check b12, folate, hemolysis screen Above findings were reviewed with the patient and relevant handouts were provided if indicated.
[2024-04-02] MEDS: Morphine Sulfate 2 MG/ML CARTRIDGE IVPUSH ×2 (15:20→20:54)
[2024-04-02] MEDS: 0.9 % Sodium Chloride Flush 3 ML SYRINGE IVFLUSH (15:21)
[2024-04-02 16:50] LABS: Glucose, Whole Blood 86 mg/dL (60-115)
[2024-04-02] MEDS: Divalproex Sodium ER 250 MG TAB.ER.24H 1250 MG PO (20:53)
[2024-04-02] MEDS: cloZAPine 100 MG TABLET 300 MG PO (20:53)
[2024-04-02] MEDS: clonazePAM 1 MG TABLET PO (20:54)
[2024-04-02 21:01] LABS: Glucose, Whole Blood 102 mg/dL (60-115)
[2024-04-02] MEDS: lisinopriL 10 MG TABLET PO (21:04)
[2024-04-02 23:41] LABS: Glucose, Whole Blood 91 mg/dL (60-115)
[2024-04-03 04:00] VITALS: BP 118/67; PULSE 74; RESP 14; TEMP 36; O2SAT 94
[2024-04-03 04:29] LABS: Glucose, Whole Blood 110 mg/dL (60-115)
[2024-04-03] MEDS: 0.9 % Sodium Chloride Flush 3 ML SYRINGE IVFLUSH (05:51)
[2024-04-03 07:37] VITALS: BP 125/69; PULSE 78; RESP 20; TEMP 36.7; O2SAT 95
[2024-04-03 07:41] LABS: Glucose, Whole Blood 100 mg/dL (60-115)
[2024-04-03] MEDS: clonazePAM 0.5 MG TABLET PO (08:47)
[2024-04-03] MEDS: Sucralfate 1 GM TABLET PO (08:47)
[2024-04-03] MEDS: dilTIAZem HCL CD 120 MG CAP.ER.DEG PO (08:47)
[2024-04-03] MEDS: Montelukast Sodium 10 MG TABLET PO (08:47)
[2024-04-03] MEDS: FLUoxetine HCl 10 MG CAPSULE 30 MG PO (08:47)
[2024-04-03 09:03] LABS: Hemoglobin 7.7 g/dl (12.0-16.0); Mean Corpuscular HGB Conc 28.5 g/dl (31.0-35.0); Mean Corpuscular Volume 73.6 fL (80.0-98.0); Platelet Count 282 X10*3/uL (160-400); Red Blood Count 3.67 X10*6/uL (4.20-5.50); Red Cell Distribution Width 24.7 % (11.0-16.0); White Blood Count 8.9 X10*3/uL (4.8-10.8)
[2024-04-03 09:18] LABS: Anion Gap 8 (12-20); Blood Urea Nitrogen 4 mg/dL (9-16); Calcium 8.6 mg/dL (8.4-10.2); Carbon Dioxide 32 mmol/L (22-29); Chloride 106 mmol/L (96-108); Creatinine Clr Calc Pharmacy 120.2; Estimated Glomerular Filt Rate > 60; Glucose Random 105 mg/dL (60-115); Potassium 3.7 mmol/L (3.3-5.1); Sodium 142 mmol/L (135-145)
--- NOTE | 2024-04-03 09:41 | HO.POSTANES ---
Post Anesthesia Evaluation Post Anesthesia Evaluation Date of Service: 04/02/24 Vital Signs: Vital Signs Temp Pulse Resp BP Pulse Ox O2 Del Method O2 Flow Rate 04/03/24 07:37 98.1 F 78 20 125/69 95 Nasal Cannula 2 04/03/24 04:00 96.8 F 74 14 118/67 94 Nasal Cannula 2 04/02/24 23:33 97.4 F 90 16 156/77 H 94 Nasal Cannula 2 Anesthesia: Monitored Mental Status: Awake Pain Control: Satisfactory Nausea/Vomiting: None Hydration: Adequate Anesthesia-Related Issues: No Anes. Related Issues
--- NOTE | 2024-04-03 10:37 | MHC.CM.PN ---
IMM 04/03/24, PT MEDICALLY CLEARED FOR DC HOME W/RESUMP OF HOT TOP LINER/24 HR CARE, PT'S HOT TOP LINER IRIS FOR TRANSPORT
[2024-04-03 11:26] VITALS: BP 171/77; PULSE 91; RESP 18; TEMP 36.3; O2SAT 94
[2024-04-03 11:31] LABS: Glucose, Whole Blood 105 mg/dL (60-115)
--- NOTE | 2024-04-03 11:46 | P.DS_ITS ---
DS: Providers Provider Date of Service: 04/03/24 Date of admission: 03/31/24 11:04 Primary care physician: Brenna Brower MD Consults: 03/29/24 10:01 Consult to Gastroenterology Routine Consulting Provider: Hugo Mendez Reason for consultation: Abd pain, anemia was supposed to have EGD on 03/26 wasn't done Has provider been notified: No DS: Diagnosis Discharge Diagnosis (1) Anemia: Status: Acute DS: Summary Hospital Course Hospital Course: Chief Complaint: Abd pain This is a 58-year-old female with pertinent history of hypertension, COPD not on home oxygen, schizophrenia, gastroesophageal reflux disease, mol-[id number] diabetes mellitus, mood disorder who presents to the emergency department for evaluation of abdominal pain. Patient states she started having upper abdominal pain 3 days prior to presentation. Initially it was intermittent but progressed to being constant. It is worse with food intake. Denies any radiation of the pain. Denies nausea, vomiting. Is having soft stool but did not noticed blood in stools. No hematemesis, hematuria or melena. Patient denies fever, chills, chest discomfort, palpitations, shortness of breath, changes in urinary habits. Patient is [place] speaking and history obtained with the help of human resources team member In the emergency department, hemoglobin was found to be 6.5. CT abdomen with constipation and ultrasound of the abdomen with positive Vargas's sign without gallbladder wall thickening. Hospital course: 58yo F with HTN, COPD, schizophrenia, GERD, DM2, mood disorder presenting with abd pain, found to have severe MARIELLA severe iron deficiciency anemia ( MARIELLA) - transfused 1u pRBCs with improvement in and hematocrit. initial hemoglocin 6.5 now 7.7 5 days later - no-show for outpt EGD 03/26; She had EGD and Colonosocopy on 04/02 with the following finding and recommendation Endoscopy Findings: mild gastritis Colonoscopy Findings: tortuous colon melanosis coli internal hemorrhoids Plan: Await Pathology results Repeat Colonoscopy in 5 years or earlier if clinically indicated High fiber diet leaflet avoid straining at stool, epsom salts and sitz bath, anusol supps or cream o/p capsule endo-- r/o other causes of anemia, check b12, folate, hemolysis screen constipation - continue bowel regimen RUQ tenderness - positive Vargas sign on US but no stones or wall thickening; HIDA shows patent cystic duct HTN--resume prior meds - continue diltiazem, lisinopril schizophrenia - continue clozapine, clonazepam, Depakote, fluoxetine GERD - PPI DM2--resume home meds Time Attestation Discharge Coordination Time (in mins): 35 Quality: Safe Use of Opioids Does Pt have an Active Cancer Diagnosis on the Problem List?: No Quality: Stroke Does the patient have a stroke diagnosis?: No Physical Exam Vital Signs: Vital Signs: Last Vital Signs Temp 97.4 F 04/03/24 11:26 Pulse 91 04/03/24 11:26 Resp 18 04/03/24 11:26 BP 171/77 H 04/03/24 11:26 Pulse Ox 94 04/03/24 11:26 O2 Del Method Room Air 04/03/24 11:26 O2 Flow Rate 2 04/03/24 07:37 BMI result Body Mass Index 34.8 DS: Data Data Completed and Pending Pending studies at discharge: Pending at discharge 04/02/24 14:28 Surgical [PTH] Routine Labs on day of discharge: Laboratory Results - last 24 hr 04/02/24 04/02/24 04/02/24 15:16 20:54 23:37 WBC RBC Hgb Hct MCV MCH MCHC RDW Plt Count MPV Absolute Nucleated RBC Nucleated RBC % (auto) Sodium Potassium Chloride Carbon Dioxide Anion Gap BUN Creatinine Estim Creat Clear Calc Estimated GFR POC Glucose 86 102 91 Random Glucose Calcium 04/03/24 04/03/24 04/03/24 04:25 07:37 08:26 WBC 8.9 RBC 3.67 L Hgb 7.7 L Hct 27.0 L MCV 73.6 L MCH 21.0 L MCHC 28.5 L RDW 24.7 H Plt Count 282 MPV Not Reportable Absolute Nucleated RBC 0.000 Nucleated RBC % (auto) 0.0 Sodium 142 Potassium 3.7 Chloride 106 Carbon Dioxide 32 H Anion Gap 8 L BUN 4 L Creatinine 0.50 Estim Creat Clear Calc 120.2 Estimated GFR > 60 POC Glucose 110 100 Random Glucose 105 Calcium 8.6 04/03/24 11:25 WBC RBC Hgb Hct MCV MCH MCHC RDW Plt Count MPV Absolute Nucleated RBC Nucleated RBC % (auto) Sodium Potassium Chloride Carbon Dioxide Anion Gap BUN Creatinine Estim Creat Clear Calc Estimated GFR POC Glucose 105 Random Glucose Calcium Discharge Plan Discharge Anticipated Discharge Date/Time: 04/03/24 11:46 Patient Disposition: Home, Self-Care Discharge Diagnosis: abdominal pain, constipation, acute on chronic anemia Referrals: Brenna Liriano MD [Primary Care Provider] - 1 Week Hugo Mendez MD [Physician] - 2 Weeks (to be evaluated for capsule endoscopy) Discharge Medications: New magnesium hydroxide [Milk of Magnesia] 400 mg/5 mL Suspension 30 ml PO DAILY PRN (Reason: Constipation) Qty: 3780 0RF polyethylene glycol 3350 17 gram Powder In Packet 17 g PO DAILY PRN (Reason: Constipation) Qty: 100 0RF hydrocortisone acetate [Anusol-HC] 25 mg suppository 25 mg [place] BEDTIME Qty: 24 0RF Continued diltiazem HCl 120 mg capsule,extended release 24hr 120 mg PO DAILY Qty: 30 2RF albuterol sulfate [Ventolin HFA] 90 mcg/actuation HFA aerosol inhaler 2 puff INHALATION Q6H PRN (Reason: Shortness Of Breath Or Wheezing) sucralfate 1 gram tablet 1 g PO TID tramadol 50 mg tablet 50 mg PO TID PRN (Reason: Severe Pain (Scale Score 7-10)) albuterol sulfate 2.5 mg /3 mL (0.083 %) solution for nebulization 2.5 mg inhalation Q4H PRN (Reason: wheezing) fluoxetine 10 mg Capsule 30 mg PO DAILY Qty: 90 0RF clonazepam 1 mg tablet 1 mg PO BEDTIME Qty: 30 0RF docusate sodium 100 mg capsule 100 mg PO BID PRN (Reason: Constipation) Qty: 60 0RF omeprazole 20 mg capsule,delayed release(DR/EC) 20 mg PO BID Qty: 60 0RF montelukast 10 mg tablet 10 mg PO DAILY Qty: 30 0RF metformin 500 mg tablet extended release 24 hr 500 mg PO BID Qty: 60 0RF clozapine 100 mg tablet 300 mg PO BEDTIME Qty: 90 0RF Rx Instructions: 325 mg at bedtime sennosides [senna] 8.6 mg tablet 17.2 mg PO BEDTIME PRN (Reason: constipation) clonazepam 0.5 mg tablet 0.5 mg PO DAILY lisinopril 10 mg tablet 10 mg PO BEDTIME polyethylene glycol 3350 17 gram powder in packet 17 g PO TID PRN (Reason: Constipation) divalproex 500 mg tablet extended release 24 hr 1,250 mg PO BEDTIME Discharge Orders: Discharge Order (Routine); Ordered 04/03/24 Ordered By: Dejon Sanderson Diet: Advance to usual diet Activity on Discharge: As tolerated Stand Alone Forms: Patient Portal Discharge page Print Language: Slovenian Care Plan Goals: recovery from abdominal pain and control of anemia Health Concerns: abdominal pain, constipation, acute on chronic anemia. Plan of Treatment: resume all home medications as before.take regimen as directed. Follow up with Dr. Mendez to be set up for capsule endoscopy Follow up if your primary care doctor within a week. Use Sitz bath as directed Assessment: See above Patient Instructions: Sitz Bath (DC) Discharge Date/Time: 04/03/24 13:55
== END 2024-04-03 13:55 | disposition home or self-care (01) | DRG 241 ==
LOC: HO.ED 21:47 → HO.EDOVER 22:09 → HO.IMC 03-29 14:55
PROVIDERS: Internal Medicine Gastroenterology; Physician Assistant; Physician Assistant Medical; Student in an Organized Health Care Education/Training Program; Admitting Provider Family Medicine; Emergency Provider Emergency Medicine Emergency Medical Services; PCP Internal Medicine; Visit Provider Internal Medicine
PROC: 0DB78ZX Excision of Stomach, Pylorus, Via Natural or Artificial Opening Endoscopic, Diagnostic (ICD-10-PCS; principal; 2024-04-02 14:50)
DX: K29.70 Gastritis, unspecified, without bleeding (principal); D50.9 Iron deficiency anemia, unspecified; E11.9 Type 2 diabetes mellitus without complications; F17.210 Nicotine dependence, cigarettes, uncomplicated; F20.9 Schizophrenia, unspecified; K63.89 Other specified diseases of intestine; K64.0 First degree hemorrhoids; K59.00 Constipation, unspecified; J44.9 Chronic obstructive pulmonary disease, unspecified; I10 Essential (primary) hypertension; K21.9 Gastro-esophageal reflux disease without esophagitis; Z20.822 Contact with and (suspected) exposure to COVID-19; Z71.6 Tobacco abuse counseling; Z79.84 Long term (current) use of oral hypoglycemic drugs; Z79.899 Other long term (current) drug therapy
CPT/HCPCS: 0241U; 36415; 74177; 76705; 78227; 80048; 80076; 81001; 82272; 82784; 82947; 83540; 83690; 83735; 84443; 84484; 85025; 85027; 86364; 86850; 86900; 86901; 86923; 88305; 88313; 88342; 93005; 94640; 99285; A9537; J2270; J2470; J2704; J2805; P9016; Q9967

== ENCOUNTER → 2024-03-28 13:57 | Outpatient (BNV) | payer MEDICAID, SELFPAY | PROVIDERS: Admitting Provider Student in an Organized Health Care Education/Training Program; Emergency Provider Emergency Medicine Emergency Medical Services; PCP Internal Medicine; Visit Provider Internal Medicine Cardiovascular Disease | DX: R94.31 Abnormal electrocardiogram [ECG] [EKG] (principal) | CPT/HCPCS: 93010 ==

== ENCOUNTER → 2024-03-28 22:03 | Outpatient (BNV) | payer MEDICAID, SELFPAY | PROVIDERS: Admitting Provider Student in an Organized Health Care Education/Training Program; Emergency Provider Emergency Medicine Emergency Medical Services; PCP Internal Medicine; Visit Provider Student in an Organized Health Care Education/Training Program | DX: D64.9 Anemia, unspecified (principal) | CPT/HCPCS: 99223; 99232; 99239 ==

== ENCOUNTER → 2024-03-28 22:03 | Outpatient (BNV) | payer MEDICAID, SELFPAY | PROVIDERS: Admitting Provider Student in an Organized Health Care Education/Training Program; Emergency Provider Emergency Medicine Emergency Medical Services; PCP Internal Medicine; Visit Provider Internal Medicine Gastroenterology | DX: D64.9 Anemia, unspecified (principal); K29.70 Gastritis, unspecified, without bleeding; K63.89 Other specified diseases of intestine; K64.0 First degree hemorrhoids | CPT/HCPCS: 43239; 45378; 99222; 99232 ==

== ENCOUNTER 2024-04-07 15:38 | Outpatient (REF) | payer MEDICAID, SELFPAY ==
[2024-04-07 16:03] LABS: MANUAL DIFF FLAG NO
[2024-04-07 16:59] LABS: Basophils Percent Auto 0.4 % (0-2); Eosinophils Absolute Auto 0.1 X10*3/uL (0.0-0.4); Eosinophils Percent Auto 1.1 % (0-4); Hematocrit 29.3 % (37.0-47.0); Hemoglobin 8.2 g/dl (12.0-16.0); Imm Gran Abs Auto 0.03 X10*3/uL (0.00-0.03); Imm Gran Pct Auto 0.3 % (0.0-0.4); Lymphocytes Percent Auto 33.4 % (20-40); Mean Corpuscular Hemoglobin 20.9 pg (27.0-33.0); Mean Corpuscular Volume 74.7 fL (80.0-98.0); Monocytes Absolute Auto 0.7 X10*3/uL (0.1-1.2); Monocytes Percent Auto 7.3 % (2-11); Neut%MD 57.5 %; Neutrophils Absolute Auto 5.1 x10*3/uL (2.0-8.3); Neutrophils Percent Auto 57.5 % (45-73); Platelet Count 368 X10*3/uL (160-400); Red Blood Count 3.92 X10*6/uL (4.20-5.50); Red Cell Distribution Width 25.2 % (11.0-16.0)
== END 2024-04-07 15:39 | disposition home or self-care (01) ==
LOC: HO.LABR 15:38
PROVIDERS: PCP Internal Medicine; Visit Provider Clinical Nurse Specialist Psychiatric/Mental Health, Adult
DX: Z79.899 Other long term (current) drug therapy (principal)
CPT/HCPCS: 36415; 85025

== ENCOUNTER 2024-04-29 11:31 | Outpatient (REF) | payer MEDICAID, SELFPAY ==
[2024-04-29 11:52] LABS: MANUAL DIFF FLAG NO
[2024-04-29 12:40] LABS: Basophils Percent Auto 0.3 % (0-2); Eosinophils Absolute Auto 0.1 X10*3/uL (0.0-0.4); Hematocrit 28.1 % (37.0-47.0); Hemoglobin 8.1 g/dl (12.0-16.0); Imm Gran Abs Auto 0.06 X10*3/uL (0.00-0.03); Imm Gran Pct Auto 0.5 % (0.0-0.4); Lymphocytes Absolute Auto 2.1 X10*3/uL (1.2-4.9); Lymphocytes Percent Auto 18.8 % (20-40); Mean Corpuscular HGB Conc 28.8 g/dl (31.0-35.0); Mean Corpuscular Hemoglobin 21.7 pg (27.0-33.0); Mean Corpuscular Volume 75.3 fL (80.0-98.0); Mean Platelet Volume 10.6 fL (9.4-12.3); Monocytes Absolute Auto 1.2 X10*3/uL (0.1-1.2); Monocytes Percent Auto 10.4 % (2-11); NRBC Pct Auto 0.2 /100WBC (0.0-0.2); Neutrophils Absolute Auto 7.8 x10*3/uL (2.0-8.3); Platelet Count 314 X10*3/uL (160-400); Red Blood Count 3.73 X10*6/uL (4.20-5.50); Red Cell Distribution Width 24.9 % (11.0-16.0); White Blood Count 11.3 X10*3/uL (4.8-10.8)
== END 2024-04-29 11:32 | disposition home or self-care (01) ==
LOC: HO.LAB 11:31
PROVIDERS: PCP Internal Medicine; Visit Provider Clinical Nurse Specialist Psychiatric/Mental Health, Adult
DX: Z79.899 Other long term (current) drug therapy (principal)
CPT/HCPCS: 36415; 85025

== ENCOUNTER 2024-05-01 14:53 | Outpatient (REF) | payer MEDICAID, SELFPAY ==
--- NOTE | ~2024-05-01 | MM_ITS ---
EXAMINATION: MM SCREENING DIGITAL BREAST TOMOSYNTHESIS, BILATERAL CLINICAL INFORMATION: Screening. Asymptomatic. COMPARISON: Mammography: Comparison is made with available priors TECHNIQUE: Digital breast mammography with tomosynthesis is performed in both the craniocaudal and mediolateral oblique views along with computer-aided detection (CAD). FINDINGS: The breasts are heterogeneously dense, which may obscure small masses (ACR BI-RADS breast composition Category c). Right breast marker clip from previous needle core biopsy. There are no significant masses, abnormal calcifications, or other abnormalities. MM/MM tomosynthesis screening BI IMPRESSION: No mammographic evidence of malignancy. ASSESSMENT: BI-RADS BI-RADS 2 - Benign Findings RECOMMENDATION: Routine annual mammography screening. 1 year F/U This examination should not preclude the clinical evaluation of a suspicious palpable abnormality. This patient's information was entered into a reminder system with a target due date for their next mammogram. Electronically signed by: Siomara Myrick DO 05/15/2024 08:07 PM EDT
== END 2024-05-01 14:54 | disposition home or self-care (01) ==
LOC: HO.MAMMO 14:53
PROVIDERS: PCP Internal Medicine; Visit Provider Internal Medicine
DX: Z12.31 Encounter for screening mammogram for malignant neoplasm of breast (principal)
CPT/HCPCS: 77063; 77067

== ENCOUNTER → 2024-05-01 15:00 | Outpatient (BNV) | payer MEDICAID, SELFPAY | PROVIDERS: PCP Internal Medicine; Visit Provider Internal Medicine | DX: Z12.31 Encounter for screening mammogram for malignant neoplasm of breast (principal) | CPT/HCPCS: 77063; 77067 ==

== ENCOUNTER 2024-05-02 12:31 | Emergency (ER) | payer MEDICAID, SELFPAY ==
--- NOTE | 2024-05-02 12:54 | PC.NURSE ---
Called Family member Lanny regarding patient. She states crisis assessment was done on patient at her home last night. She was given a bed at 230pm today at [facility] [place] [address]. [phone]
== END 2024-05-02 14:36 | disposition left against medical advice (07) ==
PROVIDERS: Emergency Provider Emergency Medicine
DX: F20.9 Schizophrenia, unspecified (principal); E11.9 Type 2 diabetes mellitus without complications; I10 Essential (primary) hypertension; E78.5 Hyperlipidemia, unspecified; J45.909 Unspecified asthma, uncomplicated; F17.210 Nicotine dependence, cigarettes, uncomplicated

== ENCOUNTER 2024-05-29 11:21 | Outpatient (REF) | payer MEDICAID, SELFPAY ==
[2024-05-29 11:45] LABS: MANUAL DIFF FLAG NO
[2024-05-29 12:13] LABS: Basophils Percent Auto 0.2 % (0-2); Eosinophils Absolute Auto 0.1 X10*3/uL (0.0-0.4); Eosinophils Percent Auto 0.5 % (0-4); Hematocrit 30.9 % (37.0-47.0); Hemoglobin 8.7 g/dl (12.0-16.0); Imm Gran Abs Auto 0.07 X10*3/uL (0.00-0.03); Imm Gran Pct Auto 0.6 % (0.0-0.4); Lymphocytes Absolute Auto 1.9 X10*3/uL (1.2-4.9); Lymphocytes Percent Auto 15.9 % (20-40); Mean Corpuscular HGB Conc 28.2 g/dl (31.0-35.0); Mean Corpuscular Hemoglobin 20.9 pg (27.0-33.0); Mean Corpuscular Volume 74.3 fL (80.0-98.0); Mean Platelet Volume 10.8 fL (9.4-12.3); Monocytes Absolute Auto 0.9 X10*3/uL (0.1-1.2); Monocytes Percent Auto 7.2 % (2-11); Neutrophils Absolute Auto 8.9 x10*3/uL (2.0-8.3); Neutrophils Percent Auto 75.6 % (45-73); Platelet Count 386 X10*3/uL (160-400); Red Blood Count 4.16 X10*6/uL (4.20-5.50); Red Cell Distribution Width 22.5 % (11.0-16.0); White Blood Count 11.8 X10*3/uL (4.8-10.8)
== END 2024-05-29 11:22 | disposition home or self-care (01) ==
LOC: HO.LABR 11:21
PROVIDERS: PCP Internal Medicine; Visit Provider Clinical Nurse Specialist Psychiatric/Mental Health, Adult
DX: Z79.899 Other long term (current) drug therapy (principal)
CPT/HCPCS: 36415; 85025

== ENCOUNTER 2024-06-10 07:39 | Outpatient (AMB) | payer MEDICAID, SELFPAY ==
--- NOTE | 2024-06-18 21:06 | MHC.OFFVIS ---
Intake Visit Reasons: CAPSULE ENDOSCOPY Allergies diazepam [From Valium] Allergy (Unknown, Verified 06/18/24 15:26) Unknown haloperidol [From Haldol] Allergy (Unknown, Verified 06/18/24 15:26) Unknown Penicillins Allergy (Unknown, Verified 06/18/24 15:26) Unknown risperidone [From Risperdal] Allergy (Unknown, Verified 06/18/24 15:26) Unknown aspirin [Aspirin] Adverse Reaction (Intermediate, Verified 06/18/24 15:26) Vomiting trazodone [TRAZODONE] Adverse Reaction (Intermediate, Verified 06/18/24 15:26) NAUSEA & VOMITING PFSH Medical History Diabetes Morbid obesity due to excess calories Anxiety Chronic mental illness COPD (chronic obstructive pulmonary disease) Hyperlipidemia Schizophrenia Asthma Surgical History Hx of colonoscopy History of tubal ligation H/O right knee surgery History of appendectomy Family History Father Throat cancer Mother CVA (cerebral vascular accident) Brother Drug overdose Sister No problems noted. Sister No problems noted. Son No problems noted. Son No problems noted. 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: Caregiver Household Members Other:: Lanny Soto, Inocencio Soto, - foster parents Housing: House Do you presently have visiting nurse or other home services: Yes Unable to assess alcohol history related to: Unknown Alcohol intake: never Comment: pt resting with eyes closed Patient Tobacco Use Status: Current everyday Tobacco user Tobacco use type: Cigarette Cigarettes Per Day: 10 Smoked in Last 30 Days: No e-Cigarette/Vaping Use: Never Used Second Hand Smoke Exposure: No Use of substances other than those prescribed or required for medical reasons: No Advance Directives: Yes Advance Directives on File: Yes Advance Directives Date on File: 12/13/22 Patient : No service: No Current occupational status: disabled Sexual orientation: Straight/Heterosexual Office Procedures AMB Capsule Endoscopy Procedure Notes: Capsule Endoscopy: Date of Service:06/10/24 Indication: anemia Findings: esophagus looked normal. stomach with punctate mucosal bleeding points with more ozzing at the antral area. 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 No masses or ulcers. cecum entered at 7hr 33 min Conclusion: AVM and mucosal bleeding can offer endoscopic therapy vs medical treatment after discussion with patient r/o valvular heart disease, bleeding d/o etc and other secondary causes Note; APTT has been elevated in the past on several occasions Capsule Endoscopy CPT Code: 77205 - Capsule Endoscopy Assessment & Plan Assessment & Plan (1) Anemia: Code(s): D64.9 - Anemia, unspecified Category: Medical Qualifiers: Iron deficiency anemia type: chronic blood loss Plan: see above Coding Level of Care Code Procedure Only Diagnoses Anemia D64.9 Iron deficiency anemia type: chronic blood loss CPT Codes AMB Capsule Endoscopy - Capsule Endoscopy CPT Code: 32095 - Capsule Endoscopy ([id number])
== END 2024-06-10 07:59 | disposition home or self-care (01) ==
PROVIDERS: PCP Internal Medicine; Visit Provider Internal Medicine Gastroenterology
DX: D64.9 Anemia, unspecified (principal)
CPT/HCPCS: 91110

== ENCOUNTER → 2024-06-10 07:39 | Outpatient (BNVA) | payer MEDICAID, SELFPAY | PROVIDERS: PCP Internal Medicine; Visit Provider Internal Medicine Gastroenterology | DX: D64.9 Anemia, unspecified (principal) | CPT/HCPCS: 91110 ==

== ENCOUNTER 2024-06-18 15:13 | Inpatient (IN) | payer MEDICAID, SELFPAY ==
[2024-06-18] VITALS (8 sets, daily range): BP systolic 103–137; BP diastolic 51–70; PULSE 106–113; RESP 15–23; TEMP 36.9–37.2; O2SAT 86–95; BMI 33.4
--- NOTE | ~2024-06-18 | CT_ITS ---
EXAMINATION: CT HEAD WITHOUT CONTRAST CLINICAL INFORMATION: ?encephalopathy COMPARISON: Correlated to MRI brain dated October 19, 2009 none available on PACS. TECHNIQUE: Contiguous axial imaging was performed from the skull base to vertex without intravenous administration of contrast. This CT examination was performed using dose optimization techniques as appropriate, variously including the following: *Automated exposure control *Adjustment of mA and/or kV according to patient size (this includes techniques or standardized protocols for targeted exams where dose is matched to indication/reason for exam; i.e. extremities or head) *Use of iterative reconstruction technique DLP: 711 mGy-cm FINDINGS: No acute intracranial hemorrhage, mass effect, midline shift, hydrocephalus or herniation. Colon-white matter differentiation is normal. Posterior cranial fossa contents demonstrated no acute intracranial hemorrhage or mass effect. Calcified plaques in the cavernous segments both ICAs. Polypoid mucosal thickening and secretions included paranasal sinuses. Tympanic cavities and mastoid cells are aerated. Bony calvarium is intact. CT/CT head/brain wo IV con IMPRESSION: No acute intracranial hemorrhage. Acute on chronic paranasal sinus disease. Electronically signed by: Will Langley MD 06/20/2024 03:39 PM EDT
--- NOTE | ~2024-06-18 | XR_ITS ---
EXAMINATION: XR CHEST CLINICAL INFORMATION: Productive cough, dyspnea COMPARISON: January 2023. TECHNIQUE: 2 views of the chest were obtained. FINDINGS: No new airspace consolidation or pneumothorax. Pulmonary vascularity and hilar regions appear to be stable. The pleural surfaces appear clear. No distinct thoracic compression fracture. XR/XR chest 2V IMPRESSION: No evidence for acute process. Electronically signed by: Giacomo Woodruff MD 06/18/2024 04:37 PM EDT
--- NOTE | 2024-06-18 15:15 | ECG_ITS ---
Test Reason : chest pain Blood Pressure : / mmHG Vent. Rate : 110 BPM Atrial Rate : 110 BPM P-R Int : 116 ms QRS Dur : 072 ms QT Int : 326 ms P-R-T Axes : 058 037 000 degrees QTc Int : 441 ms Sinus tachycardia Otherwise normal ECG When compared with ECG of 28-MAR-2024 14:04, No significant change was found Referred By: Generic ED Physician Electronically Signed By:CECELIA MCDONALD
[2024-06-18 15:50] LABS: Basophils Percent Auto 0.3 % (0-2); Hemoglobin 8.6 g/dl (12.0-16.0); NRBC Pct Auto 0.4 /100WBC (0.0-0.2); SCAN SMEAR FLAG 1
[2024-06-18 15:51] LABS: Eosinophils Absolute Auto 0.1 X10*3/uL (0.0-0.4); Eosinophils Percent Auto 0.7 % (0-4); Hematocrit 29.5 % (37.0-47.0); Imm Gran Abs Auto 0.06 X10*3/uL (0.00-0.03); Imm Gran Pct Auto 0.5 % (0.0-0.4); Lymphocytes Absolute Auto 2.3 X10*3/uL (1.2-4.9); Lymphocytes Percent Auto 19.8 % (20-40); Mean Corpuscular HGB Conc 29.2 g/dl (31.0-35.0); Mean Corpuscular Hemoglobin 21.6 pg (27.0-33.0); Mean Corpuscular Volume 73.9 fL (80.0-98.0); Mean Platelet Volume 10.1 fL (9.4-12.3); Monocytes Absolute Auto 1.1 X10*3/uL (0.1-1.2); Monocytes Percent Auto 9.1 % (2-11); Neutrophils Percent Auto 69.6 % (45-73); Platelet Count 427 X10*3/uL (160-400); Red Blood Count 3.99 X10*6/uL (4.20-5.50); Red Cell Distribution Width 21.8 % (11.0-16.0); White Blood Count 11.5 X10*3/uL (4.8-10.8)
[2024-06-18 15:55] LABS: Appearance Urine Clear; Color Urine Yellow; Glucose Urine UA Negative (Negative); Leukocyte Esterase Urine Negative (Negative); Nitrite Urine Negative (Negative); Specific Gravity - Urine 1.015 (1.005-1.025); Urine Blood Negative (Negative); Urine Ketones Negative (Negative); Urine Protein Negative (Neg-Trace)
[2024-06-18] MEDS: Albuterol Sulfate 2.5 MG, Albuterol Sulfate (0.083%) 2.5 MG 5 MG INHALE (15:56)
[2024-06-18] MEDS: methylPREDNISolone Sod Succ 125 MG/2 ML VIAL 60 MG IVPUSH (16:03)
--- NOTE | 2024-06-18 16:04 | PC.NURSE ---
pt returned from xray at this time. receiving breathing treatment via RT. tolerating breathing treatment well. 20gIV placed in the left forearm - medication administered per provider order. plan of care ongoing.
[2024-06-18 16:06] LABS: PLT ABN DIST 1
[2024-06-18 16:08] LABS: MANUAL DIFF FLAG NO
[2024-06-18 16:17] LABS: Troponin-I High Sensitivity < 2.7 ng/L (<3.5-17.0)
[2024-06-18 16:20] LABS: Anion Gap 13 (12-20); Blood Urea Nitrogen 8 mg/dL (9-16); Calcium 8.6 mg/dL (8.4-10.2); Carbon Dioxide 29 mmol/L (22-29); Chloride 102 mmol/L (96-108); Creatinine Clr Calc Pharmacy 86.8; Estimated Glomerular Filt Rate > 60; Glucose Random 109 mg/dL (60-115); Potassium 4.1 mmol/L (3.3-5.1); Sodium 140 mmol/L (135-145)
[2024-06-18 16:49] LABS: Influenza A PCR NEGATIVE (Negative); Influenza B PCR NEGATIVE (Negative); Resp Syncy Virus RNA Qual PCR NEGATIVE (Negative); SARS COV2 PCR INHOUSE NEGATIVE (Negative)
--- NOTE | 2024-06-18 16:58 | ED.GENADULT ---
HPI - General Adult General Chief complaint: Dyspnea Stated complaint: [id number] Time Seen by Provider: 06/18/24 16:02 History of Present Illness ED Provider: Philip DOWNING narrative: 58-year-old female with past medical history of asthma, schizophrenia, anemia, hypertension presenting for shortness of breath. Patient states that she has been experiencing proximally 5 days of chest tightness and shortness of breath. She also endorses fever. She has multiple family members at home that are sick with the flu. She denies chest pain, abdominal pain, nausea, vomiting, urinary symptoms. She has been using her home inhaler and nebulizer with no improvement in symptoms. Related Data Home Medications ?Medication ?Instructions ?Recorded ?Confirmed sennosides 8.6 mg tablet (senna) 17.2 mg PO BEDTIME PRN constipation 12/13/22 03/29/24 albuterol sulfate 2.5 mg/3 mL 2.5 mg inhalation Q4H PRN wheezing 06/18/23 03/29/24 (0.083 %) solution for nebulization albuterol sulfate 90 mcg/actuation 2 puff inhalation Q6H PRN 06/18/23 03/29/24 aerosol inhaler (Ventolin HFA) Shortness Of Breath Or Wheezing sucralfate 1 gram tablet 1 g PO TID 06/18/23 03/29/24 tramadol 50 mg tablet 50 mg PO TID PRN Severe Pain 06/18/23 03/29/24 (Scale Score 7-10) polyethylene glycol 3350 17 gram 17 g PO TID PRN Constipation 08/10/23 03/29/24 oral powder packet divalproex 500 mg tablet,extended 1,250 mg PO BEDTIME 10/01/23 03/29/24 release 24 hr clonazepam 0.5 mg tablet 0.5 mg PO DAILY 03/29/24 03/29/24 lisinopril 10 mg tablet 10 mg PO BEDTIME 03/29/24 03/29/24 Previous Rx's ?Medication ?Instructions ?Recorded clonazepam 1 mg tablet 1 mg PO BEDTIME #30 tabs 07/02/23 clozapine 100 mg tablet 300 mg (3 x 100 mg) PO BEDTIME #90 07/02/23 tabs docusate sodium 100 mg capsule 100 mg PO BID PRN Constipation #60 07/02/23 caps fluoxetine 10 mg capsule 30 mg (3 x 10 mg) PO DAILY #90 caps 07/02/23 metformin 500 mg tablet,extended 500 mg PO BID #60 tabs 07/02/23 release 24 hr montelukast 10 mg tablet 10 mg PO DAILY #30 tabs 07/02/23 omeprazole 20 mg capsule,delayed 20 mg PO BID #60 caps 07/02/23 release diltiazem HCl 120 mg 120 mg PO DAILY #30 caps 02/25/24 capsule,extended release 24 hr hydrocortisone acetate 25 mg 25 mg [place] BEDTIME #24 ea 04/03/24 rectal suppository (Anusol-HC) magnesium hydroxide 400 mg/5 mL 30 ml PO DAILY PRN Constipation 04/03/24 oral suspension (Milk of Magnesia) #3,780 mL polyethylene glycol 3350 17 gram 17 g PO DAILY PRN Constipation 04/03/24 oral powder packet #100 ea polyethylene glycol 3350 17 17 g PO ONCE #238 grams 06/05/24 gram/dose oral powder (Miralax) simethicone 125 mg chewable tablet 250 mg (2 x 125 mg) PO ONCE PRN 06/05/24 (Gas Relief (simethicone)) abdominal distention #2 tabs Allergies Allergy/AdvReac Type Severity Reaction Status Date / Time diazepam [From Valium] Allergy Unknown Unknown Verified 06/18/24 15:26 haloperidol [From Haldol] Allergy Unknown Unknown Verified 06/18/24 15:26 Penicillins Allergy Unknown Unknown Verified 06/18/24 15:26 risperidone [From Risperdal] Allergy Unknown Unknown Verified 06/18/24 15:26 aspirin [Aspirin] AdvReac Intermediate Vomiting Verified 06/18/24 15:26 trazodone [TRAZODONE] AdvReac Intermediate NAUSEA & Verified 06/18/24 15:26 VOMITING Review of Systems Review of Systems: Patient endorses shortness of breath and chest tightness Yes all other systems are reviewed and are negative PMFSH Past Medical History Medical History Diabetes Morbid obesity due to excess calories Anxiety Chronic mental illness COPD (chronic obstructive pulmonary disease) Hyperlipidemia Schizophrenia Asthma Surgical History Hx of colonoscopy History of tubal ligation H/O right knee surgery History of appendectomy Family History Family History Father Throat cancer Mother CVA (cerebral vascular accident) Brother Drug overdose Sister No problems noted. Sister No problems noted. Son No problems noted. Son No problems noted. 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 Other:: Lanny Soto, Inocencio Soto, - foster parents Housing: House Do you presently have visiting nurse or other home services: Yes Unable to assess alcohol history related to: Unknown Alcohol intake: never Comment: pt resting with eyes closed Patient Tobacco Use Status: Current everyday Tobacco user Tobacco use type: Cigarette Cigarettes Per Day: 10 Smoked in Last 30 Days: No e-Cigarette/Vaping Use: Never Used Second Hand Smoke Exposure: No Use of substances other than those prescribed or required for medical reasons: No Advance Directives: Yes Advance Directives on File: Yes Advance Directives Date on File: 12/13/22 Patient : No service: No Current occupational status: disabled Sexual orientation: Straight/Heterosexual Physical Exam ED Vital Signs: Vital Signs - 24 hr 06/18/24 15:23 06/18/24 15:58 06/18/24 17:04 Temperature 99 F Pulse Rate 113 H 111 H 112 H Respiratory Rate 20 22 H 20 Blood Pressure 136/70 Pulse Oximetry 91 L Oxygen Delivery Method Room Air Oxygen Flow Rate 06/18/24 17:07 06/18/24 17:20 06/18/24 19:30 Temperature 98.5 F Pulse Rate 107 H 107 H Respiratory Rate 23 H 22 H Blood Pressure 137/60 Pulse Oximetry 86 L 93 Oxygen Delivery Method Room Air Nasal Cannula Oxygen Flow Rate 2 06/18/24 19:45 Temperature 98.9 F Pulse Rate 106 H Respiratory Rate 17 Blood Pressure 103/51 L Pulse Oximetry 93 Oxygen Delivery Method Nasal Cannula Oxygen Flow Rate 2 BMI result Body Mass Index 33.4 Well-appearing female Labored breathing Bilateral wheezing auscultated Normal S1-S2 tachycardic Abdomen is soft, nontender, mildly distended No lower extremity edema appreciated Medications Administered Discontinued Medications Generic Name Dose Route Start Last Admin Trade Name Freq PRN Reason Stop Dose Admin Albuterol Sulfate 2.5 mg/ 5 mg 06/18/24 15:52 06/18/24 15:56 Albuterol Sulfate 2.5 mg INHALE 06/18/24 15:53 5 mg ONCE ONE Administration Albuterol Sulfate 7.5 mg/ 10 mg 06/18/24 19:00 06/18/24 19:17 Albuterol Sulfate 2.5 mg INHALE 06/18/24 19:01 10 mg ONCE ONE Administration Albuterol/Ipratropium 9 ml 06/18/24 16:48 06/18/24 17:02 Albuterol/Iprat 2.5/0.5mg 3 Ml Ampul.Neb INHALE 06/18/24 16:49 9 ml ONCE ONE Administration Magnesium Sulfate 2 gm in 50 mls @ 25 mls/hr 06/18/24 17:04 06/18/24 19:34 Magnesium Sulfate/H2o IV 06/18/24 19:03 Infused ONCE ONE Infusion Methylprednisolone Sodium Succinate 60 mg 06/18/24 15:42 06/18/24 16:03 Methylprednisolone Sod Succ 125 Mg/2 Ml Vial IVPUSH 06/18/24 15:43 60 mg ONCE ONE Administration Medical Decision Making Medical Decision Making MDM Narrative: This is a 50-year-old female presenting with shortness of breath. I am concerned for the following; asthma exacerbation, COVID, flu, pneumonia, viral URI -low suspicion for ACS, PE given HPI -labs and imaging studies ordered in triage -on my assessment patient still experiencing significant wheezing despite an albuterol nebulizer that was ordered in triage; I subsequently ordered 3 duo nebs and magnesium -I reviewed patient's chest x-ray and did not appreciate a large consolidation; radiologist's impression was negative for acute process -patient's labs notable for mild leukocytosis, stable H&H, electrolytes within normal limits, negative troponin x1, clean UA -on reassessment patient is still experiencing significant wheezing -patient admitted to medicine Differential Diagnosis Differential Diagnoses: The differential diagnosis associated with the presentation includes Asthma exacerbation, COVID, flu, pneumonia, viral URI Lab Data 06/18/24 15:42 06/18/24 15:42 Labs: Lab Results 06/18/24 06/18/24 Range/Units 15:42 17:27 WBC 11.5 H (4.8-10.8) X10*3/uL RBC 3.99 L (4.20-5.50) X10*6/uL Hgb 8.6 L (12.0-16.0) g/dl Hct 29.5 L (37.0-47.0) % MCV 73.9 L (80.0-98.0) fL MCH 21.6 L (27.0-33.0) pg MCHC 29.2 L (31.0-35.0) g/dl RDW 21.8 H (11.0-16.0) % Plt Count 427 H (160-400) X10*3/uL MPV 10.1 (9.4-12.3) fL Immature Gran % (Auto) 0.5 H (0.0-0.4) % Neut % (Auto) 69.6 (45-73) % Lymph % (Auto) 19.8 L (20-40) % [place] % (Auto) 9.1 (2-11) % Eos % (Auto) 0.7 (0-4) % Baso % (Auto) 0.3 (0-2) % Lymph # (Auto) 2.3 (1.2-4.9) X10*3/uL [place] # (Auto) 1.1 (0.1-1.2) X10*3/uL Eos # (Auto) 0.1 (0.0-0.4) X10*3/uL Baso # (Auto) 0.0 (0.0-0.2) X10*3/uL Abs Immat Gran (auto) 0.06 H (0.00-0.03) X10*3/uL Absolute Neuts (auto) 8.0 (2.0-8.3) x10*3/uL Absolute Nucleated RBC 0.050 H (0.0-0.012) X10*3/uL Nucleated RBC % (auto) 0.4 H (0.0-0.2) /100WBC VBG pH 7.41 (7.32-7.43) VBG pCO2 46 mmHg VBG pO2 95 mmHg VBG HCO3 29 H (22-26) mmol/L VBG O2 Saturation 100.0 % VBG Base Excess 4.5 mmol/L Sodium 140 (135-145) mmol/L Potassium 4.1 (3.3-5.1) mmol/L Chloride 102 (96-108) mmol/L Carbon Dioxide 29 (22-29) mmol/L Anion Gap 13 (12-20) BUN 8 L (9-16) mg/dL Creatinine 0.65 (0.5-1.4) mg/dL Estim Creat Clear Calc 86.8 Estimated GFR > 60 Random Glucose 109 (60-115) mg/dL Calcium 8.6 (8.4-10.2) mg/dL Troponin I High Sens < 2.7 (<3.5-17.0) ng/L Urine Color Yellow Urine Appearance Clear Urine pH 7.0 (5.0-9.0) Ur Specific [place] 1.015 (1.005-1.025) Urine Protein Negative (Neg-Trace) mg/dL Urine Glucose (UA) Negative (Negative) mg/dL Urine Ketones Negative (Negative) mg/dL Urine Blood Negative (Negative) Urine Nitrite Negative (Negative) Ur Leukocyte Esterase Negative (Negative) Influenza Type A (PCR) NEGATIVE (Negative) Influenza Type B (PCR) NEGATIVE (Negative) RSV RNA Qual (PCR) NEGATIVE (Negative) SARS-CoV-2 RNA (RT-PCR) NEGATIVE (Negative) Discharge Plan Discharge Clinical Impression: Asthma exacerbation Qualifiers: Asthma severity: moderate Asthma persistence: persistent Qualified Code(s): J45.41 - Moderate persistent asthma with (acute) exacerbation Patient Disposition: Admitted As Inpatient Print Language: [place] Island[place]
[2024-06-18] MEDS: Albuterol/Iprat 2.5/0.5MG 3 ML AMPUL.NEB 9 ML INHALE (17:02)
[2024-06-18] MEDS: Magnesium Sulfate/H2O 2 GM/50 ML PIGGYBACK IV (17:19)
--- NOTE | 2024-06-18 17:23 | PC.NURSE ---
pt noted to be @ 84% on RA while receiving 2nd breathing treatment via RT. pt placed on 2L via NC w/ good effect - SPO2 @ 92%. pt declines home O2 baseline. sob/wob/productive cough noted. pt positioned upright to promote patent airway. medication administered per provider order. effectiveness pending. pt notified/aware she will be admitted to hospital services per MD. plan of care ongoing. call blankenship placed within reach.
[2024-06-18 17:31] LABS: VBG Base Excess 4.5 mmol/L; VBG HCO3 29 mmol/L (22-26); VBG pCO2 46 mmHg; VBG pH 7.41 (7.32-7.43); VBG pO2 95 mmHg
[2024-06-18 17:33] LABS: Venous Blood Gas Refer to POC result
--- NOTE | 2024-06-18 18:53 | PC.NURSE ---
pt displays w/ audible wheezing despite previous interventions. pt remains on 2L via NC - wob noted. respirations even/unlabored. provider notified/aware.
[2024-06-18] MEDS: Albuterol Sulfate 7.5 MG, Albuterol Sulfate (0.083%) 2.5 MG 10 MG INHALE (19:17)
--- NOTE | 2024-06-18 23:12 | PC.NURSE ---
hand off to naeem mayorga.
[2024-06-19] VITALS (10 sets, daily range): BP systolic 117–147; BP diastolic 54–77; PULSE 82–108; RESP 16–20; TEMP 36.2–37; O2SAT 92–100; BMI 34.4
--- NOTE | 2024-06-19 00:13 | PM.IMHP ---
History of Present Illness Date of Service: 06/19/24 Attending physician on admission: Srinivasa Leiva Chief Complaint: Shortness on breath Brenna Bourne is a 58 years old woman with past medical history significant for asthma, depression, constipation and essential hypertension presents to the emergency department complaining of 5 days' history of worsening shortness on breath associated with wheezing, productive cough of greenish sputum and suggestive fever. She also reported chest tightness. She did not report any acute gastrointestinal genitourinary symptoms. She is a tobacco smoker, smokes 1 pack every 3 days. Denied alcohol use or illicit drug use. In the ED, she was found to have oxygen saturation of 86% on room air, she is currently requiring 2 L/min supplemental oxygen. There is mild tachycardia and tachypnea. Last blood pressure was 128/64. Blood workup showed leukocytosis 11.5. Hemoglobin is 8.6 which is at baseline. Platelets are 427. There are no significant electrolytes. Troponin is negative. Venous blood gas showed no respiratory acidosis. Urinalysis is normal. Viral testing for COVID-19, influenza and RSV is negative. ED tx: Solu-Medrol 60 mg IV, DuoNeb x3, magnesium 2 g IV Review of Systems Review of Systems: All 12 systems were reviewed and normal except as noted in HPI. [facility] Medical History Diabetes Morbid obesity due to excess calories Anxiety Chronic mental illness COPD (chronic obstructive pulmonary disease) Hyperlipidemia Schizophrenia Asthma Family History Father Throat cancer Mother CVA (cerebral vascular accident) Brother Drug overdose Sister No problems noted. Sister No problems noted. Son No problems noted. Son No problems noted. 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 Household Members Other:: Lanny Soto, Inocencio Soto, - foster parents Housing: House Do you presently have visiting nurse or other home services: Yes Unable to assess alcohol history related to: Unknown Alcohol intake: never Comment: pt resting with eyes closed Patient Tobacco Use Status: Current everyday Tobacco user Tobacco use type: Cigarette Cigarettes Per Day: 10 Smoked in Last 30 Days: No e-Cigarette/Vaping Use: Never Used Second Hand Smoke Exposure: No Use of substances other than those prescribed or required for medical reasons: No Advance Directives: Yes Advance Directives on File: Yes Advance Directives Date on File: 12/13/22 Patient : No service: No Current occupational status: disabled Sexual orientation: Straight/Heterosexual Meds Allergies Allergy/AdvReac Type Severity Reaction Status Date / Time diazepam [From Valium] Allergy Unknown Unknown Verified 06/18/24 15:26 haloperidol [From Haldol] Allergy Unknown Unknown Verified 06/18/24 15:26 Penicillins Allergy Unknown Unknown Verified 06/18/24 15:26 risperidone [From Risperdal] Allergy Unknown Unknown Verified 06/18/24 15:26 aspirin [Aspirin] AdvReac Intermediate Vomiting Verified 06/18/24 15:26 trazodone [TRAZODONE] AdvReac Intermediate NAUSEA & Verified 06/18/24 15:26 VOMITING Active Medications: Current Medications Acetaminophen (Acetaminophen 325 Mg Tablet) 975 mg PO Q6H PRN PRN Reason: Pain, Mild (Pain Scale 1-3), fever or headache Albuterol Sulfate (Albuterol Sulfate (0.083%) 2.5 Mg/3 Ml Vial.Neb) 2.5 mg INHALE Q2H PRN PRN Reason: Shortness of Breath/Wheezing Albuterol/Ipratropium (Albuterol/Iprat 2.5/0.5mg 3 Ml Ampul.Neb) 3 ml INHALE RQ4H WHILE AWAKE LAXMI Clonazepam (Clonazepam 1 Mg Tablet) 1 mg PO ONCE ONE Stop: 06/19/24 00:12 Divalproex Sodium (Divalproex Sodium Er 500 Mg Tab.Er.24h) 1,000 mg PO ONCE ONE Stop: 06/19/24 00:12 Enoxaparin Sodium (Enoxaparin Sodium 40 Mg/0.4 Ml Syringe) 40 mg SUBCUT Q24H LAXMI Glucose (Glucose Gel 15 Gm Gel..Gram.) 15 gm PO Q15M PRN; Protocol PRN Reason: per Hypoglycemia Standing Ord. Azithromycin 500 mg/ Sodium (Chloride) 250 mls @ 125 mls/hr IV Q24H LAXMI Dextrose (D10) 250 mls @ 750 mls/hr IV Q15M PRN; Protocol PRN Reason: per Hypoglycemia Standing Ord. Insulin Human Lispro (Insulin Lispro 100 Unit/Ml 3 Ml Vial) 0 unit SUBCUT QIDACHS [facility]; Protocol Nicotine Polacrilex (Nicotine Polacrilex 2 Mg Gum) 2 mg BUCCAL Q2H PRN PRN Reason: Nicotine Cravings Sodium Chloride (0.9 % Sodium Chloride Flush 3 Ml Syringe) 3 ml [facility] Home Medications ?Medication ?Instructions ?Recorded ?Confirmed ?Last Taken ?Type sennosides 8.6 mg tablet (senna) 17.2 mg PO BEDTIME PRN constipation 12/13/22 03/29/24 12/12/22 History albuterol sulfate 2.5 mg/3 mL 2.5 mg inhalation Q4H PRN wheezing 06/18/23 03/29/24 Unknown History (0.083 %) solution for nebulization albuterol sulfate 90 mcg/actuation 2 puff inhalation Q6H PRN 06/18/23 03/29/24 Unknown History aerosol inhaler (Ventolin HFA) Shortness Of Breath Or Wheezing sucralfate 1 gram tablet 1 g PO TID 06/18/23 03/29/24 03/28/24 History tramadol 50 mg tablet 50 mg PO TID PRN Severe Pain 06/18/23 03/29/24 Unknown History (Scale Score 7-10) polyethylene glycol 3350 17 gram 17 g PO TID PRN Constipation 08/10/23 03/29/24 Unknown History oral powder packet divalproex 500 mg tablet,extended 1,250 mg PO BEDTIME 10/01/23 03/29/24 03/28/24 History release 24 hr clonazepam 0.5 mg tablet 0.5 mg PO DAILY 03/29/24 03/29/24 03/28/24 History lisinopril 10 mg tablet 10 mg PO BEDTIME 03/29/24 03/29/24 03/28/24 History atorvastatin 40 mg tablet 40 mg PO DAILY 06/18/24 Unknown History lactulose 10 gram/15 mL oral 45 ml PO DAILY 06/18/24 Unknown History solution omeprazole 20 mg capsule,delayed 20 mg PO BID@0630,1630 06/18/24 Unknown History release Physical Exam Vital Signs and Narrative: Vital Signs: Last Vital Signs Temp 98.7 F 06/18/24 22:08 Pulse 108 H 06/18/24 22:08 Resp 15 06/18/24 22:08 BP 128/64 06/18/24 22:08 Pulse Ox 95 06/18/24 22:08 O2 Del Method Nasal Cannula 06/18/24 22:08 O2 Flow Rate 2 06/18/24 22:08 BMI result Body Mass Index 33.4 Constitutional - Awake and Alert, No apparent distress. Pleasant. Cooperative. Nasal cannula in place. HEENT - PERRL, EOMI. Normal sclerae. Moist oral mucosa. Normal oropharynx. Heart - Tachycardia. Normal rate. No murmurs. Lungs - Normal lung expansion, Normal respiratory effort, No respiratory distress. Tachypnea. Bilateral end expiratory wheezes. No crackles. No rhonchi. Abdomen - NT / ND; +BS; No rebound or guarding Extremities - no calf tenderness bilaterally, no swelling Musculoskeletal - Normal inspection, normal ROM Skin - Warm/Dry Neurological - Alert & oriented x3. No focal weakness grossly noted. Normal speech. Psychological - Appropriate affect Results Labs 06/18/24 15:42 06/18/24 15:42 Labs: Laboratory Results - last 24 hr 06/18/24 06/18/24 15:42 17:27 MCV 73.9 L MCH 21.6 L MCHC 29.2 L RDW 21.8 H Plt Count 427 H MPV 10.1 Immature Gran % (Auto) 0.5 H Neut % (Auto) 69.6 Lymph % (Auto) 19.8 L [place] % (Auto) 9.1 Eos % (Auto) 0.7 Baso % (Auto) 0.3 Lymph # (Auto) 2.3 [place] # (Auto) 1.1 Eos # (Auto) 0.1 Baso # (Auto) 0.0 Abs Immat Gran (auto) 0.06 H Absolute Neuts (auto) 8.0 Absolute Nucleated RBC 0.050 H Nucleated RBC % (auto) 0.4 H VBG pH 7.41 VBG pCO2 46 VBG pO2 95 VBG HCO3 29 H VBG O2 Saturation 100.0 VBG Base Excess 4.5 Anion Gap 13 Estim Creat Clear Calc 86.8 Estimated GFR > 60 Random Glucose 109 Calcium 8.6 Troponin I High Sens < 2.7 Urine Color Yellow Urine Appearance Clear Urine pH 7.0 Ur Specific [place] 1.015 Urine Protein Negative Urine Glucose (UA) Negative Urine Ketones Negative Urine Blood Negative Urine Nitrite Negative Ur Leukocyte Esterase Negative Influenza Type A (PCR) NEGATIVE Influenza Type B (PCR) NEGATIVE RSV RNA Qual (PCR) NEGATIVE SARS-CoV-2 RNA (RT-PCR) NEGATIVE Imaging Radiologist's Impressions: Impressions Chest X-Ray 06/18/24 15:40 IMPRESSION: No evidence for acute process. Electronically signed by: Giacomo Woodruff MD 06/18/2024 04:37 PM EDT RP Assessment and Plan (1) Acute hypoxic respiratory failure: Status: Acute (2) Asthma exacerbation: Qualifiers: Asthma persistence: persistent Asthma severity: moderate Qualified Code(s): J45.41 - Moderate persistent asthma with (acute) exacerbation Status: Acute Plan Brenna Bourne is a 58 y/o woman admitted with: Acute hypoxic respiratory failure secondary to acute exacerbation of asthma + acute bronchitis. Admit to hospitalist service. Pulse oximetry. Continue supplemental O2 to keep sats > 90%. Continue bronchodilator therapy. Start empiric IV antibiotic therapy with ceftriaxone sputum culture. Continue montelukast. Essential hypertension. Continue lisinopril. Mood disorder. Continue divalproex, olanzapine and clonazepam. Hyperlipidemia. Continue statin. Chronic anemia. Continue to monitor hemoglobin. DVT prophylaxis: Lovenox Code status: Full Patient will need hospitalization least 2 midnights for hypoxic respiratory failure secondary stroke asthma exacerbation with supplemental oxygen, bronchodilator therapy and IV antibiotics. Quality Stroke Does the patient have a stroke diagnosis?: No VTE Prior VTE?: No VTE Risk Level:: Medical - moderate - high VTE Device Contraindication: Treatment Not Indicated VTE Drug Contraindication: N/A - Med Ordered
--- NOTE | 2024-06-19 01:04 | PC.NURSE ---
Took report from off-going RN at 2300 hrs. Pt is a 58 y/o female who presents for evaluation of 1 week of productive cough with greenish/brown sputum and intermitent fevers. Using MDI and nebulizers at home without relief or reduction of symptoms. Reports chest wall pain with coughing. Family has flu at home. Introduced myself to pt. Pt is easily arousable with verbal stimuli, calm, cooperative, and appropriate with staff. Pt reports ongoing shortness of breath and overall not feeling well. Pt is able to verbalize needs and uses the call light appropriately. Will continue to monitor for any changes.
[2024-06-19] MEDS: Azithromycin 500 MG in 0.9 % Sodium Chloride 250 ML 125 MG IV ×2 (02:17→21:26)
[2024-06-19] MEDS: Divalproex Sodium ER 500 MG TAB.ER.24H 1000 MG PO ×2 (02:18→21:24)
--- NOTE | 2024-06-19 02:19 | PC.NURSE ---
ns 250 cc bag will not scan.
[2024-06-19] MEDS: clonazePAM 1 MG TABLET PO (02:44)
[2024-06-19] MEDS: OLANZapine 5 MG TABLET PO (02:45)
--- NOTE | 2024-06-19 03:16 | PC.NURSE ---
Pt medicated per OCT after communication and verification between provider and pt. Pt had an order for clonazepam and a recorded allergy to diazepam, but was unable to unclear about the allergy, medication Ok'd by hospitalist to administer. Pt reported a different dose with a different home ([facility]), name of medication and dosage was verified with the help of a medical officer in the presence of the hospitalist.
[2024-06-19] MEDS: traMADoL HCL 50 MG TABLET PO ×2 (04:21→21:38)
[2024-06-19] MEDS: cloZAPine 100 MG TABLET 300 MG PO (05:01)
[2024-06-19 06:18] LABS: MANUAL DIFF FLAG NO
[2024-06-19 06:24] LABS: Basophils Percent Auto 0.2 % (0-2); Eosinophils Percent Auto 0.1 % (0-4); Hematocrit 28.9 % (37.0-47.0); Hemoglobin 8.2 g/dl (12.0-16.0); Imm Gran Abs Auto 0.16 X10*3/uL (0.00-0.03); Imm Gran Pct Auto 1.2 % (0.0-0.4); Lymphocytes Absolute Auto 1.7 X10*3/uL (1.2-4.9); Lymphocytes Percent Auto 12.6 % (20-40); Mean Corpuscular HGB Conc 28.4 g/dl (31.0-35.0); Mean Corpuscular Hemoglobin 21.3 pg (27.0-33.0); Mean Corpuscular Volume 75.1 fL (80.0-98.0); Mean Platelet Volume 10.9 fL (9.4-12.3); Monocytes Absolute Auto 0.6 X10*3/uL (0.1-1.2); Monocytes Percent Auto 4.3 % (2-11); NRBC Pct Auto 0.2 /100WBC (0.0-0.2); Neutrophils Absolute Auto 10.6 x10*3/uL (2.0-8.3); Neutrophils Percent Auto 81.6 % (45-73); Platelet Count 439 X10*3/uL (160-400); Red Blood Count 3.85 X10*6/uL (4.20-5.50); Red Cell Distribution Width 21.9 % (11.0-16.0); White Blood Count 13.1 X10*3/uL (4.8-10.8)
[2024-06-19 06:41] LABS: Alanine Aminotransferase 8 U/L (0-31); Anion Gap 18 (12-20); Aspartate Amino Transferase 13 U/L (5-31); Bilirubin Total 0.3 mg/dL (0.0-1.0); Blood Urea Nitrogen 13 mg/dL (9-16); Calcium 9.2 mg/dL (8.4-10.2); Carbon Dioxide 24 mmol/L (22-29); Chloride 101 mmol/L (96-108); Creatinine Clr Calc Pharmacy 93.9; Estimated Glomerular Filt Rate > 60; Glucose Random 224 mg/dL (60-115); Potassium 4.4 mmol/L (3.3-5.1); Sodium 139 mmol/L (135-145); Total Protein 7.2 g/dL (6.5-8.0)
[2024-06-19 06:52] LABS: Alkaline Phosphatase 88 U/L (39-117)
[2024-06-19 07:39] LABS: Glucose, Whole Blood 184 mg/dL (60-115)
[2024-06-19] MEDS: Albuterol/Iprat 2.5/0.5MG 3 ML AMPUL.NEB INHALE ×4 (07:53→18:06)
[2024-06-19] MEDS: Insulin Lispro 100 UNIT/ML 3 ML VIAL SUBCUT ×2 (09:34→12:19)
[2024-06-19] MEDS: Enoxaparin Sodium 40 MG/0.4 ML SYRINGE SUBCUT (09:34)
[2024-06-19] MEDS: 0.9 % Sodium Chloride Flush 3 ML SYRINGE IVFLUSH ×3 (09:37→21:42)
--- NOTE | 2024-06-19 09:49 | MHC.CM.PN ---
FEMALE 58 DX ANEMIA Patient lives with C.G./HCP/Iris. She assists with supervision of ADLs. Patient uses a cane to ambulate. [facility] provides med management. Patient does not uses home O2. She is requiring supplemental oxygen 2Lvia [place]. DP home resume services with [facility]. [facility] will provide transportation home.
--- NOTE | 2024-06-19 09:56 | PHA.MEDREC ---
Addendum entered by Myrna Oconnor RPh 06/19/24 10:32: CLOZARIL [place]ST DOSE: 06/18 [place] [facility] [place] @06/17 Addendum entered by Myrna Oconnor RPh 06/19/24 10:29: [facility] REVIEWED. CONTACTED KALLI TO CONFIRM CLOZARIL DOSE . PATIENT TAKES 325 MG AT BEDTIME AND HAS MEDS BLISTER PACKED WEEKLY. KALLI CONFIRMED PATIENT IS COMPLIANT WITH MEDICATIONS AND LAST TOOK ON 06/18. Original Note: Pharmacy Consult ? Medication Reconciliation Pharmacy has completed the medication reconciliation. Got list from patient provider facility and confirmed med rec. Patient unsure when they last took their medications.
[2024-06-19] MEDS: Loratadine 10 MG TABLET PO (11:23)
[2024-06-19] MEDS: guaiFENesin 200 MG/10 ML 10 ML LIQUID PO ×2 (11:23→21:39)
[2024-06-19 11:47] LABS: Glucose, Whole Blood 152 mg/dL (60-115)
--- NOTE | 2024-06-19 14:05 | PM.EVENT ---
Event Note Date of Service: 06/20/24 Event Note: This patient is seen and examined by hospitalist service this morning seen and examined again sob somewhat improving has cough Physical exam-seems similar and assessment and plan coordinated in h&P note. Agree with the plan in addition: Acute hypoxic respiratory failure secondary to acute exacerbation of asthma + acute bronchitis continue nebs ,steriods ,antibiotics,cough med ,loratidine , moniter respiratory status closely. Time Spent With Patient Time: Total time managing care of this patient today ____ minutes.
[2024-06-19 16:12] LABS: Glucose, Whole Blood 109 mg/dL (60-115)
[2024-06-19] MEDS: FLUoxetine HCl 10 MG CAPSULE 30 MG PO (16:41)
[2024-06-19] MEDS: Sucralfate 1 GM TABLET PO ×2 (16:41→21:24)
[2024-06-19] MEDS: Omeprazole 20 MG CAPSULE.DR PO (16:41)
[2024-06-19] MEDS: dilTIAZem HCL CD 120 MG CAP.ER.DEG PO (16:41)
[2024-06-19] MEDS: polyethylene glycoL 3350 17 GM POWD.PACK PO (16:41)
[2024-06-19 20:05] LABS: Glucose, Whole Blood 118 mg/dL (60-115)
[2024-06-19] MEDS: Divalproex Sodium ER 250 MG TAB.ER.24H PO (21:24)
[2024-06-19] MEDS: Atorvastatin Calcium 40 MG TABLET PO (21:24)
[2024-06-19] MEDS: cloZAPine 25 MG TABLET PO (21:25)
[2024-06-19] MEDS: Sennosides 8.6 MG TABLET 17.2 MG PO (21:38)
[2024-06-19] MEDS: Docusate Sodium 100 MG CAPSULE PO ×2 (21:38→21:39)
[2024-06-19] MEDS: Albuterol Sulfate (0.083%) 2.5 MG/3 ML VIAL.NEB INHALE (22:58)
[2024-06-20] VITALS (9 sets, daily range): BP systolic 102–128; BP diastolic 52–68; PULSE 83–98; RESP 16–20; TEMP 36.1–37.1; O2SAT 92–98
[2024-06-20] MEDS: Omeprazole 20 MG CAPSULE.DR PO ×2 (05:39→18:04)
[2024-06-20 06:57] LABS: Valproate 67.2 mcg/mL (50.0-100.0)
[2024-06-20 07:28] LABS: Glucose, Whole Blood 111 mg/dL (60-115)
[2024-06-20] MEDS: Albuterol/Iprat 2.5/0.5MG 3 ML AMPUL.NEB INHALE ×4 (07:45→19:58)
[2024-06-20] MEDS: 0.9 % Sodium Chloride Flush 3 ML SYRINGE IVFLUSH ×3 (09:33→23:47)
[2024-06-20] MEDS: Enoxaparin Sodium 40 MG/0.4 ML SYRINGE SUBCUT (09:38)
[2024-06-20] MEDS: dilTIAZem HCL CD 120 MG CAP.ER.DEG PO (09:41)
[2024-06-20] MEDS: polyethylene glycoL 3350 17 GM POWD.PACK PO (09:41)
[2024-06-20] MEDS: Loratadine 10 MG TABLET PO (09:41)
[2024-06-20] MEDS: lisinopriL 10 MG TABLET PO (09:41)
[2024-06-20] MEDS: Sucralfate 1 GM TABLET PO ×3 (09:41→21:25)
[2024-06-20] MEDS: FLUoxetine HCl 10 MG CAPSULE 30 MG PO (09:53)
[2024-06-20 11:22] LABS: ABG Base Excess 7.6 mmol/L; ABG HCO3 32 mmol/L (22-26); ABG pCO2 47 mmHg (32-45); ABG pH 7.44 (7.35-7.45); ABG pO2 86 mmHg (83-108)
[2024-06-20 11:43] LABS: Glucose, Whole Blood 89 mg/dL (60-115)
--- NOTE | 2024-06-20 12:19 | MHC.CM.PN ---
Per MD rounds patient not medically cleared for dc. CM will continue to follow.
[2024-06-20 12:48] LABS: Adenovirus PCR Not Detected (Not Detect.); Bordetella parapertussis PCR Not Detected (Not Detect.); Bordetella pertussis PCR Not Detected (Not Detect.); Chlamydia pneumoniae PCR Not Detected (Not Detect.); Coronavirus 229E PCR Not Detected (Not Detect.); Coronavirus HKU1 PCR Not Detected (Not Detect.); Coronavirus NL63 PCR Not Detected (Not Detect.); Coronavirus OC43 PCR Not Detected (Not Detect.); Human metapneumovirus PCR Not Detected (Not Detect.); Influenza A PCR Not Detected (Not Detect.); Influenza B PCR Not Detected (Not Detect.); Mycoplasma pneumoniae PCR Not Detected (Not Detect.); Parainfluenza 1 PCR Not Detected (Not Detect.); Parainfluenza 2 PCR Not Detected (Not Detect.); Parainfluenza 3 PCR Not Detected (Not Detect.); Parainfluenza 4 PCR Not Detected (Not Detect.); RSV PCR Not Detected (Not Detect.); Rhino/Enterovirus PCR Detected (Not Detect.)
[2024-06-20] MEDS: Magnesium Sulfate/D5W 1 GM/100 ML PIGGYBACK IV (12:48)
[2024-06-20 13:06] LABS: SARS-CoV-2 PCR Not Detected (Not Detect.)
--- NOTE | 2024-06-20 13:13 | PC.NURSE ---
IV Paused, IV started leaking.
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
--- NOTE | 2024-06-20 13:35 | P.PNIM_ITS ---
Subjective Subjective Date of Service: 06/20/24 Interval History: copd excerebation Review of Systems sob somewhat improving denies any chest pain or nausea or vomiting or fevers. Physical Exam 2 Vital Signs: Vital Signs: Last Vital Signs Temp 98.7 F 06/20/24 07:33 Pulse 90 06/20/24 11:40 Resp 16 06/20/24 11:40 BP 102/60 06/20/24 07:33 Pulse Ox 96 06/20/24 07:33 O2 Del Method Nasal Cannula 06/20/24 07:33 O2 Flow Rate 2.0 06/20/24 07:33 BMI result Body Mass Index 34.4 Appearance: Alert.? Oriented X3.little slow in talking,generalised weak. cvs: rrr, [id number]. res: air entry fair , has few b/l wheezes. abd: no rebound or guarding ,nt, bs present. ext pulses present , no cyanosis . neuro: axo3 , nonfocal. Objective Data Active Medications Acetaminophen (Acetaminophen 325 Mg Tablet) 975 mg PO Q6H PRN PRN Reason: Pain, Mild (Pain Scale 1-3), fever or headache Albuterol Sulfate (Albuterol Sulfate (0.083%) 2.5 Mg/3 Ml Vial.Neb) 2.5 mg INHALE Q2H PRN PRN Reason: Shortness of Breath/Wheezing Last Admin: 06/19/24 22:58 Dose: 2.5 mg Documented By: SAMY Albuterol/Ipratropium (Albuterol/Iprat 2.5/0.5mg 3 Ml Ampul.Neb) 3 ml INHALE RQ4H WHILE AWAKE [facility] Last Admin: 06/20/24 11:38 Dose: 3 ml Documented By: OLVIN Atorvastatin Calcium (Atorvastatin Calcium 40 Mg Tablet) 40 mg PO BEDTIME [facility] Last Admin: 06/19/24 21:24 Dose: 40 mg Documented By: LEANDRA Capsaicin (Capsaicin 0.025% Cream 60 Gm Tube) 1 appl TOPICAL DAILY PRN; Protocol PRN Reason: Minor Aches and Pains Clonazepam (Clonazepam 0.5 Mg Tablet) 0.5 mg PO DAILY [facility] Last Admin: 06/20/24 08:24 Dose: Not Given Documented By: ISABEL Non-Admin Reason: per Clonazepam (Clonazepam 1 Mg Tablet) 1 mg PO BEDTIME [facility] Clozapine (Clozapine 25 Mg Tablet) 25 mg PO BEDTIME [facility] Last Admin: 06/19/24 21:25 Dose: 25 mg Documented By: LEANDRA Diltiazem HCl (Diltiazem Hcl Cd 120 Mg Cap.Er.Deg) 120 mg PO DAILY [facility]; Protocol Last Admin: 06/20/24 09:41 Dose: 120 mg Documented By: ISABEL Divalproex Sodium (Divalproex Sodium Er 250 Mg Tab.Er.24h) 250 mg PO BEDTIME [facility] Last Admin: 06/19/24 21:24 Dose: 250 mg Documented By: LEANDRA Divalproex Sodium (Divalproex Sodium Er 500 Mg Tab.Er.24h) 1,000 mg PO BEDTIME [facility] Last Admin: 06/19/24 21:24 Dose: 1,000 mg Documented By: LEANDRA Docusate Sodium (Docusate Sodium 100 Mg Capsule) 100 mg PO BID PRN PRN Reason: Constipation Last Admin: 06/19/24 21:39 Dose: 100 mg Documented By: LEANDRA Enoxaparin Sodium (Enoxaparin Sodium 40 Mg/0.4 Ml Syringe) 40 mg SUBCUT Q24H [facility] Last Admin: 06/20/24 09:38 Dose: 40 mg Documented By: ISABEL Fluoxetine HCl (Fluoxetine Hcl 10 Mg Capsule) 30 mg PO DAILY [facility] Last Admin: 06/20/24 09:53 Dose: 30 mg Documented By: ISABEL Glucose (Glucose Gel 15 Gm Gel..Gram.) 15 gm PO Q15M PRN; Protocol PRN Reason: per Hypoglycemia Standing Ord. Guaifenesin (Guaifenesin 200 Mg/10 Ml 10 Ml Liquid) 10 ml PO Q4H PRN PRN Reason: Cough Last Admin: 06/19/24 21:39 Dose: 10 ml Documented By: LEANDRA Azithromycin 500 mg/ Sodium (Chloride) 250 mls @ 125 mls/hr IV 2200 [facility] Last Infusion: 06/20/24 00:03 Dose: Infused Documented By: LEANDRA Dextrose (D10) 250 mls @ 750 mls/hr IV Q15M PRN; Protocol PRN Reason: per Hypoglycemia Standing Ord. Insulin Human Lispro (Insulin Lispro 100 Unit/Ml 3 Ml Vial) 0 unit SUBCUT QIDACHS [facility]; Protocol Last Admin: 06/20/24 12:39 Dose: Not Given Documented By: BRIANA Non-Admin Reason: No Insulin Coverage Lisinopril (Lisinopril 10 Mg Tablet) 10 mg PO DAILY [facility]; Protocol Last Admin: 06/20/24 09:41 Dose: 10 mg Documented By: ISABEL Loratadine (Loratadine 10 Mg Tablet) 10 mg PO DAILY [facility] Last Admin: 06/20/24 09:41 Dose: 10 mg Documented By: ISABEL Magnesium Hydroxide (Milk Of Magnesia 30 Ml Oral.Susp) 5 ml PO DAILY PRN PRN Reason: Constipation Nicotine Polacrilex (Nicotine Polacrilex 2 Mg Gum) 2 mg BUCCAL Q2H PRN PRN Reason: Nicotine Cravings Omeprazole (Omeprazole 20 Mg Capsule.Dr) 20 mg PO BID@0630,1630 [facility] Last Admin: 06/20/24 05:39 Dose: 20 mg Documented By: LEANDRA Polyethylene Glycol (Polyethylene Glycol 3350 17 Gm Powd.Pack) 17 gm PO DAILY [facility] Last Admin: 06/20/24 09:41 Dose: 17 gm Documented By: ISABEL Senna (Sennosides 8.6 Mg Tablet) 17.2 mg PO BEDTIME PRN PRN Reason: constipation Last Admin: 06/19/24 21:38 Dose: 17.2 mg Documented By: LEANDRA Sodium Chloride (0.9 % Sodium Chloride Flush 3 Ml Syringe) 3 ml IVFLUSH QSHIFT [facility] Last Admin: 06/20/24 09:33 Dose: 3 ml Documented By: ISABEL Sucralfate (Sucralfate 1 Gm Tablet) 1 gm PO TID [facility] Last Admin: 06/20/24 09:41 Dose: 1 gm Documented By: ISABEL Tramadol HCl (Tramadol Hcl 50 Mg Tablet) 50 mg PO DAILY PRN PRN Reason: Severe Pain (Scale Score 7-10) Last Admin: 06/19/24 21:38 Dose: 50 mg Documented By: LEANDRA Labs 06/19/24 05:51 06/19/24 05:51 Labs: Laboratory Results - last 24 hr 06/19/24 06/19/24 06/20/24 16:05 19:10 05:33 O2 Saturation ABG pH at Pt Temp ABG pCO2 at Pt Temp ABG pO2 at Pt Temp ABG HCO3 ABG Base Excess (Actual) POC Glucose 109 118 H Valproic Acid 67.2 Respiratory Panel [facility] Adenovirus (Rapid PCR) B.pert (TEM-PCR) B.parapertussis DNA PCR C. pneumoniae DNA (PCR) Coronavirus OC43 (PCR) Coronavirus HKU1 (PCR) Coronavirus 229E (PCR) Coronavirus NL63 (PCR) Human Metapneumovir PCR Influenza A (RT-PCR) Influenza B (RT-PCR) M. pneumoniae (PCR) Parainfluenza 1 (PCR) Parainfluenza 2 (PCR) Parainfluenza 3 (PCR) Parainfluenza 4 (PCR) RSV (PCR) Entero/Rhino (PCR) SARS-CoV-2 RNA (RT-PCR) 06/20/24 06/20/24 06/20/24 07:10 10:18 11:12 O2 Saturation 97.0 ABG pH at Pt Temp 7.44 ABG pCO2 at Pt Temp 47 H ABG pO2 at Pt Temp 86 ABG HCO3 32 H ABG Base Excess (Actual) 7.6 POC Glucose 111 Valproic Acid Respiratory Panel [facility] See Note Adenovirus (Rapid PCR) Not Detected B.pert (TEM-PCR) Not Detected B.parapertussis DNA PCR Not Detected C. pneumoniae DNA (PCR) Not Detected Coronavirus OC43 (PCR) Not Detected Coronavirus HKU1 (PCR) Not Detected Coronavirus 229E (PCR) Not Detected Coronavirus NL63 (PCR) Not Detected Human Metapneumovir PCR Not Detected Influenza A (RT-PCR) Not Detected Influenza B (RT-PCR) Not Detected M. pneumoniae (PCR) Not Detected Parainfluenza 1 (PCR) Not Detected Parainfluenza 2 (PCR) Not Detected Parainfluenza 3 (PCR) Not Detected Parainfluenza 4 (PCR) Not Detected RSV (PCR) Not Detected Entero/Rhino (PCR) Detected A SARS-CoV-2 RNA (RT-PCR) Not Detected 06/20/24 11:24 O2 Saturation ABG pH at Pt Temp ABG pCO2 at Pt Temp ABG pO2 at Pt Temp ABG HCO3 ABG Base Excess (Actual) POC Glucose 89 Valproic Acid Respiratory Panel [facility] Adenovirus (Rapid PCR) B.pert (TEM-PCR) B.parapertussis DNA PCR C. pneumoniae DNA (PCR) Coronavirus OC43 (PCR) Coronavirus HKU1 (PCR) Coronavirus 229E (PCR) Coronavirus NL63 (PCR) Human Metapneumovir PCR Influenza A (RT-PCR) Influenza B (RT-PCR) M. pneumoniae (PCR) Parainfluenza 1 (PCR) Parainfluenza 2 (PCR) Parainfluenza 3 (PCR) Parainfluenza 4 (PCR) RSV (PCR) Entero/Rhino (PCR) SARS-CoV-2 RNA (RT-PCR) Microbiology Microbiology Results: Microbiology 06/19/24 Unknown Gram Stain - Final Sputum - Expectorated Sputum Culture - Preliminary Culture in progress. Assessment and Plan (1) Acute hypoxic respiratory failure: Status: Acute Plan 58 y/o woman admitted with: Acute hypoxic respiratory failure secondary to acute exacerbation of asthma + acute bronchitis. sputum cultures pending abg -reviewed ,compensated. continue Pulse oximetry. taper supplemental O2 to keep sats > 90%. Continue bronchodilator therapy. Start empiric IV antibiotic therapy with ceftriaxone . Essential hypertension. Continue lisinopril. Mood disorder. Continue divalproex, adjusted olanzapine 300 mg qd hold clonazepam. depakote levels normal, clozapine levels pending psych saw patient-recomended to continue above. Hyperlipidemia. Continue statin. Chronic anemia. Continue to monitor hemoglobin. obesity- encouraged to lose weight and cut down calories. DVT prophylaxis: Lovenox ongoing need for hospitalization stay-hypoxic respiratory failure secondary stroke asthma exacerbation with supplemental oxygen, bronchodilator therapy and IV antibiotics. Quality Stroke Does the patient have a stroke diagnosis?: No VTE Prior VTE?: No VTE Risk Level:: Medical - moderate - high VTE Device Contraindication: Treatment Not Indicated VTE Drug Contraindication: N/A - Med Ordered
[2024-06-20 13:41] LABS: Ammonia 57 umol/L (13-55)
[2024-06-20 16:15] LABS: Glucose, Whole Blood 102 mg/dL (60-115)
[2024-06-20] MEDS: Lactulose 20 GM/30 ML SOLUTION PO (18:03)
[2024-06-20] MEDS: guaiFENesin 200 MG/10 ML 10 ML LIQUID PO (18:03)
[2024-06-20 20:30] LABS: Glucose, Whole Blood 97 mg/dL (60-115)
[2024-06-20] MEDS: traMADoL HCL 50 MG TABLET PO (21:23)
[2024-06-20] MEDS: Divalproex Sodium ER 500 MG TAB.ER.24H 1000 MG PO (21:24)
[2024-06-20] MEDS: cloZAPine 25 MG TABLET PO (21:26)
[2024-06-20] MEDS: Atorvastatin Calcium 40 MG TABLET PO (21:26)
[2024-06-20] MEDS: Azithromycin 500 MG in 0.9 % Sodium Chloride 250 ML 125 MG IV (21:27)
[2024-06-20] MEDS: Sennosides 8.6 MG TABLET 17.2 MG PO (21:30)
[2024-06-20] MEDS: Divalproex Sodium ER 250 MG TAB.ER.24H PO (22:05)
[2024-06-20] MEDS: Docusate Sodium 100 MG CAPSULE PO (22:05)
[2024-06-20 23:03] LABS: ABG Refer to POC result
[2024-06-21] VITALS (9 sets, daily range): BP systolic 103–117; BP diastolic 57–60; PULSE 82–100; RESP 15–24; TEMP 36.4–37; O2SAT 93–97
[2024-06-21] MEDS: clonazePAM 0.5 MG TABLET PO ×2 (01:28→08:41)
[2024-06-21] MEDS: Albuterol Sulfate (0.083%) 2.5 MG/3 ML VIAL.NEB INHALE (03:45)
--- NOTE | 2024-06-21 03:58 | PC.NURSE ---
Pt requested respiratory treatment, RT at bedside.
[2024-06-21] MEDS: Omeprazole 20 MG CAPSULE.DR PO ×2 (06:18→16:44)
[2024-06-21 07:10] LABS: Glucose, Whole Blood 103 mg/dL (60-115)
[2024-06-21] MEDS: Albuterol/Iprat 2.5/0.5MG 3 ML AMPUL.NEB INHALE ×4 (07:44→19:49)
[2024-06-21] MEDS: Lactulose 20 GM/30 ML SOLUTION PO (08:40)
[2024-06-21] MEDS: FLUoxetine HCl 10 MG CAPSULE 30 MG PO (08:40)
[2024-06-21] MEDS: Loratadine 10 MG TABLET PO (08:41)
[2024-06-21] MEDS: dilTIAZem HCL CD 120 MG CAP.ER.DEG PO (08:41)
[2024-06-21] MEDS: polyethylene glycoL 3350 17 GM POWD.PACK PO (08:41)
[2024-06-21] MEDS: 0.9 % Sodium Chloride Flush 3 ML SYRINGE IVFLUSH ×2 (08:41→16:44)
[2024-06-21] MEDS: Enoxaparin Sodium 40 MG/0.4 ML SYRINGE SUBCUT (08:41)
[2024-06-21] MEDS: Sucralfate 1 GM TABLET PO ×3 (08:41→20:44)
[2024-06-21] MEDS: lisinopriL 10 MG TABLET PO (08:41)
[2024-06-21 11:44] LABS: Glucose, Whole Blood 105 mg/dL (60-115)
--- NOTE | 2024-06-21 12:32 | P.PNIM_ITS ---
Subjective Subjective Date of Service: 06/21/24 Interval History: copd excerebation Review of Systems sob similar denies any chest pain or nausea or vomiting or fevers. Physical Exam 2 Vital Signs: Vital Signs: Last Vital Signs Temp 98.6 F 06/21/24 07:59 Pulse 97 06/21/24 11:43 Resp 18 06/21/24 11:43 BP 113/59 L 06/21/24 07:59 Pulse Ox 97 06/21/24 07:59 O2 Del Method Nasal Cannula 06/21/24 07:59 O2 Flow Rate 2 06/21/24 07:59 BMI result Body Mass Index 34.4 Appearance: Alert.? Oriented X3.little slow in talking,generalised weak. cvs: rrr, [id number]. res: air entry fair , has few b/l wheezes. abd: no rebound or guarding ,nt, bs present. ext pulses present , no cyanosis . neuro: axo3 , nonfocal. Objective Data Active Medications Acetaminophen (Acetaminophen 325 Mg Tablet) 975 mg PO Q6H PRN PRN Reason: Pain, Mild (Pain Scale 1-3), fever or headache Albuterol Sulfate (Albuterol Sulfate (0.083%) 2.5 Mg/3 Ml Vial.Neb) 2.5 mg INHALE Q2H PRN PRN Reason: Shortness of Breath/Wheezing Last Admin: 06/21/24 03:45 Dose: 2.5 mg Documented By: LIU Albuterol/Ipratropium (Albuterol/Iprat 2.5/0.5mg 3 Ml Ampul.Neb) 3 ml INHALE RQ4H WHILE AWAKE [facility] Last Admin: 06/21/24 11:42 Dose: 3 ml Documented By: MARQUITA Atorvastatin Calcium (Atorvastatin Calcium 40 Mg Tablet) 40 mg PO BEDTIME [facility] Last Admin: 06/20/24 21:26 Dose: 40 mg Documented By: VALENTINE Capsaicin (Capsaicin 0.025% Cream 60 Gm Tube) 1 appl TOPICAL DAILY PRN; Protocol PRN Reason: Minor Aches and Pains Clonazepam (Clonazepam 0.5 Mg Tablet) 0.5 mg PO DAILY [facility] Last Admin: 06/21/24 08:41 Dose: 0.5 mg Documented By: MAXINE Clonazepam (Clonazepam 1 Mg Tablet) 1 mg PO BEDTIME [facility] Clozapine (Clozapine 25 Mg Tablet) 25 mg PO BEDTIME [facility] Last Admin: 06/20/24 21:26 Dose: 25 mg Documented By: VALENTINE Diltiazem HCl (Diltiazem Hcl Cd 120 Mg Cap.Er.Deg) 120 mg PO DAILY [facility]; Protocol Last Admin: 06/21/24 08:41 Dose: 120 mg Documented By: MAXINE Divalproex Sodium (Divalproex Sodium Er 250 Mg Tab.Er.24h) 250 mg PO BEDTIME [facility] Last Admin: 06/20/24 22:05 Dose: 250 mg Documented By: VALENTINE Divalproex Sodium (Divalproex Sodium Er 500 Mg Tab.Er.24h) 1,000 mg PO BEDTIME [facility] Last Admin: 06/20/24 21:24 Dose: 1,000 mg Documented By: VALENTINE Docusate Sodium (Docusate Sodium 100 Mg Capsule) 100 mg PO BID PRN PRN Reason: Constipation Last Admin: 06/20/24 22:05 Dose: 100 mg Documented By: VALENTINE Enoxaparin Sodium (Enoxaparin Sodium 40 Mg/0.4 Ml Syringe) 40 mg SUBCUT Q24H [facility] Last Admin: 06/21/24 08:41 Dose: 40 mg Documented By: MAXINE Fluoxetine HCl (Fluoxetine Hcl 10 Mg Capsule) 30 mg PO DAILY [facility] Last Admin: 06/21/24 08:40 Dose: 30 mg Documented By: MAXINE Glucose (Glucose Gel 15 Gm Gel..Gram.) 15 gm PO Q15M PRN; Protocol PRN Reason: per Hypoglycemia Standing Ord. Guaifenesin (Guaifenesin 200 Mg/10 Ml 10 Ml Liquid) 10 ml PO Q4H PRN PRN Reason: Cough Last Admin: 06/20/24 18:03 Dose: 10 ml Documented By: ISABEL Azithromycin 500 mg/ Sodium (Chloride) 250 mls @ 125 mls/hr IV 2200 [facility] Last Infusion: 06/20/24 23:27 Dose: Infused Documented By: VALENTINE Dextrose (D10) 250 mls @ 750 mls/hr IV Q15M PRN; Protocol PRN Reason: per Hypoglycemia Standing Ord. Insulin Human Lispro (Insulin Lispro 100 Unit/Ml 3 Ml Vial) 0 unit SUBCUT QIDACHS [facility]; Protocol Last Admin: 06/21/24 11:45 Dose: Not Given Documented By: MAXINE Non-Admin Reason: No Insulin Coverage Lactulose (Lactulose 20 Gm/30 Ml Solution) 20 gm PO DAILY [facility] Last Admin: 06/21/24 08:40 Dose: 20 gm Documented By: MAXINE Lisinopril (Lisinopril 10 Mg Tablet) 10 mg PO DAILY [facility]; Protocol Last Admin: 06/21/24 08:41 Dose: 10 mg Documented By: MAXINE Loratadine (Loratadine 10 Mg Tablet) 10 mg PO DAILY [facility] Last Admin: 06/21/24 08:41 Dose: 10 mg Documented By: MAXINE Magnesium Hydroxide (Milk Of Magnesia 30 Ml Oral.Susp) 5 ml PO DAILY PRN PRN Reason: Constipation Nicotine Polacrilex (Nicotine Polacrilex 2 Mg Gum) 2 mg BUCCAL Q2H PRN PRN Reason: Nicotine Cravings Omeprazole (Omeprazole 20 Mg Capsule.) 20 mg PO BID@0630,1630 [facility] Last Admin: 06/21/24 06:18 Dose: 20 mg Documented By: VALENTINE Polyethylene Glycol (Polyethylene Glycol 3350 17 Gm Powd.Pack) 17 gm PO DAILY [facility] Last Admin: 06/21/24 08:41 Dose: 17 gm Documented By: MAXINE Senna (Sennosides 8.6 Mg Tablet) 17.2 mg PO BEDTIME PRN PRN Reason: constipation Last Admin: 06/20/24 21:30 Dose: 17.2 mg Documented By: VALENTINE Sodium Chloride (0.9 % Sodium Chloride Flush 3 Ml Syringe) 3 ml IVFLUSH QSHIFT [facility] Last Admin: 06/21/24 08:41 Dose: 3 ml Documented By: MAXINE Sucralfate (Sucralfate 1 Gm Tablet) 1 gm PO TID [facility] Last Admin: 06/21/24 08:41 Dose: 1 gm Documented By: MAXINE Tramadol HCl (Tramadol Hcl 50 Mg Tablet) 50 mg PO DAILY PRN PRN Reason: Severe Pain (Scale Score 7-10) Last Admin: 06/20/24 21:23 Dose: 50 mg Documented By: VALENTINE Labs 06/19/24 05:51 06/19/24 05:51 Labs: Laboratory Results - last 24 hr 06/20/24 06/20/24 06/20/24 10:18 13:24 16:07 POC Glucose 102 Ammonia 57 H Respiratory Panel [facility] See Note Adenovirus (Rapid PCR) Not Detected B.pert (TEM-PCR) Not Detected B.parapertussis DNA PCR Not Detected C. pneumoniae DNA (PCR) Not Detected Coronavirus OC43 (PCR) Not Detected Coronavirus HKU1 (PCR) Not Detected Coronavirus 229E (PCR) Not Detected Coronavirus NL63 (PCR) Not Detected Human Metapneumovir PCR Not Detected Influenza A (RT-PCR) Not Detected Influenza B (RT-PCR) Not Detected M. pneumoniae (PCR) Not Detected Parainfluenza 1 (PCR) Not Detected Parainfluenza 2 (PCR) Not Detected Parainfluenza 3 (PCR) Not Detected Parainfluenza 4 (PCR) Not Detected RSV (PCR) Not Detected Entero/Rhino (PCR) Detected A SARS-CoV-2 RNA (RT-PCR) Not Detected 06/20/24 06/21/24 06/21/24 20:19 07:01 11:40 POC Glucose 97 103 105 Ammonia Respiratory Panel [facility] Adenovirus (Rapid PCR) B.pert (TEM-PCR) B.parapertussis DNA PCR C. pneumoniae DNA (PCR) Coronavirus OC43 (PCR) Coronavirus HKU1 (PCR) Coronavirus 229E (PCR) Coronavirus NL63 (PCR) Human Metapneumovir PCR Influenza A (RT-PCR) Influenza B (RT-PCR) M. pneumoniae (PCR) Parainfluenza 1 (PCR) Parainfluenza 2 (PCR) Parainfluenza 3 (PCR) Parainfluenza 4 (PCR) RSV (PCR) Entero/Rhino (PCR) SARS-CoV-2 RNA (RT-PCR) Microbiology Microbiology Results: Microbiology 06/19/24 Unknown Gram Stain - Final Sputum - Expectorated Sputum Culture - Preliminary Assessment and Plan (1) Acute hypoxic respiratory failure: Status: Acute Plan 58 y/o woman admitted with: Acute hypoxic respiratory failure secondary to acute exacerbation of asthma + acute bronchitis. sputum cultures pending abg -reviewed ,compensated. continue Pulse oximetry. taper supplemental O2 to keep sats > 90%. Continue bronchodilator therapy. Start empiric IV antibiotic therapy with ceftriaxone . Essential hypertension. Continue lisinopril. Mood disorder. Continue divalproex, adjusted olanzapine 300 mg qd hold clonazepam. depakote levels normal, clozapine levels pending psych saw patient-recomended to continue above. Hyperlipidemia. Continue statin. Chronic anemia. Continue to monitor hemoglobin. obesity- encouraged to lose weight and cut down calories. DVT prophylaxis: Lovenox ongoing need for hospitalization stay-hypoxic respiratory failure secondary stroke asthma exacerbation with supplemental oxygen, bronchodilator therapy and IV antibiotics. Quality Stroke Does the patient have a stroke diagnosis?: No VTE Prior VTE?: No VTE Risk Level:: Medical - moderate - high VTE Device Contraindication: Treatment Not Indicated VTE Drug Contraindication: N/A - Med Ordered
[2024-06-21] MEDS: Milk of Magnesia 30 ML ORAL.SUSP 5 ML PO (12:44)
[2024-06-21 16:23] LABS: Glucose, Whole Blood 94 mg/dL (60-115)
[2024-06-21 20:33] LABS: Glucose, Whole Blood 101 mg/dL (60-115)
[2024-06-21] MEDS: Divalproex Sodium ER 500 MG TAB.ER.24H 1000 MG PO (20:44)
[2024-06-21] MEDS: Atorvastatin Calcium 40 MG TABLET PO (20:44)
[2024-06-21] MEDS: Divalproex Sodium ER 250 MG TAB.ER.24H PO (20:44)
[2024-06-21] MEDS: cloZAPine 25 MG TABLET PO (20:44)
[2024-06-21] MEDS: Azithromycin 500 MG in 0.9 % Sodium Chloride 250 ML 125 MG IV (20:45)
[2024-06-21] MEDS: traMADoL HCL 50 MG TABLET PO (20:58)
[2024-06-22] VITALS (9 sets, daily range): BP systolic 111–127; BP diastolic 55–69; PULSE 84–98; RESP 16–24; TEMP 36.2–36.8; O2SAT 92–98
[2024-06-22] MEDS: Sennosides 8.6 MG TABLET 17.2 MG PO (00:28)
[2024-06-22] MEDS: 0.9 % Sodium Chloride Flush 3 ML SYRINGE IVFLUSH ×2 (00:29→21:47)
[2024-06-22] MEDS: Albuterol Sulfate (0.083%) 2.5 MG/3 ML VIAL.NEB INHALE (00:35)
[2024-06-22] MEDS: Docusate Sodium 100 MG CAPSULE PO (01:43)
[2024-06-22] MEDS: clonazePAM 0.5 MG TABLET PO ×2 (01:43→08:03)
[2024-06-22] MEDS: Omeprazole 20 MG CAPSULE.DR PO ×2 (06:30→15:52)
[2024-06-22 07:36] LABS: Glucose, Whole Blood 113 mg/dL (60-115)
[2024-06-22] MEDS: Lactulose 20 GM/30 ML SOLUTION PO ×2 (08:03→20:14)
[2024-06-22] MEDS: dilTIAZem HCL CD 120 MG CAP.ER.DEG PO (08:03)
[2024-06-22] MEDS: Sucralfate 1 GM TABLET PO ×3 (08:03→20:14)
[2024-06-22] MEDS: FLUoxetine HCl 10 MG CAPSULE 30 MG PO (08:03)
[2024-06-22] MEDS: lisinopriL 10 MG TABLET PO (08:03)
[2024-06-22] MEDS: polyethylene glycoL 3350 17 GM POWD.PACK PO (08:03)
[2024-06-22] MEDS: Enoxaparin Sodium 40 MG/0.4 ML SYRINGE SUBCUT (08:03)
[2024-06-22] MEDS: Loratadine 10 MG TABLET PO (08:03)
[2024-06-22] MEDS: Albuterol/Iprat 2.5/0.5MG 3 ML AMPUL.NEB INHALE ×4 (08:12→20:26)
[2024-06-22 11:21] LABS: Glucose, Whole Blood 103 mg/dL (60-115)
--- NOTE | 2024-06-22 13:05 | HO.PM.IMPN ---
Subjective Subjective Date of Service: 06/22/24 Interval History: copd excerebation Review of Systems sob somewhat improving denies nay chest pain or nausea Physical Exam Vital Signs: Vital Signs: Last Vital Signs Temp 97.7 F 06/22/24 07:24 Pulse 84 06/22/24 12:15 Resp 17 06/22/24 12:15 BP 115/63 06/22/24 07:24 Pulse Ox 92 06/22/24 07:24 O2 Del Method Nasal Cannula 06/22/24 07:24 O2 Flow Rate 2 06/22/24 07:24 BMI result Body Mass Index 34.4 Appearance: Alert.? Oriented X3. cvs: rrr, [id number]. res: air entry fair , has few b/l wheezes. abd: no rebound or guarding ,nt, bs present. ext pulses present , no cyanosis . neuro: axo3 , nonfocal. Objective Data Active Medications Acetaminophen (Acetaminophen 325 Mg Tablet) 975 mg PO Q6H PRN PRN Reason: Pain, Mild (Pain Scale 1-3), fever or headache Albuterol Sulfate (Albuterol Sulfate (0.083%) 2.5 Mg/3 Ml Vial.Neb) 2.5 mg INHALE Q2H PRN PRN Reason: Shortness of Breath/Wheezing Last Admin: 06/22/24 00:35 Dose: 2.5 mg Documented By: SAMY Albuterol/Ipratropium (Albuterol/Iprat 2.5/0.5mg 3 Ml Ampul.Neb) 3 ml INHALE RQ4H WHILE AWAKE [facility] Last Admin: 06/22/24 12:14 Dose: 3 ml Documented By: ROSHAN Atorvastatin Calcium (Atorvastatin Calcium 40 Mg Tablet) 40 mg PO BEDTIME [facility] Last Admin: 06/21/24 20:44 Dose: 40 mg Documented By: LAN Capsaicin (Capsaicin 0.025% Cream 60 Gm Tube) 1 appl TOPICAL DAILY PRN; Protocol PRN Reason: Minor Aches and Pains Clonazepam (Clonazepam 0.5 Mg Tablet) 0.5 mg PO DAILY [facility] Last Admin: 06/22/24 08:03 Dose: 0.5 mg Documented By: RADHA Clonazepam (Clonazepam 1 Mg Tablet) 1 mg PO BEDTIME [facility] Clozapine (Clozapine 25 Mg Tablet) 25 mg PO BEDTIME [facility] Last Admin: 06/21/24 20:44 Dose: 25 mg Documented By: LAN Diltiazem HCl (Diltiazem Hcl Cd 120 Mg Cap.Er.Deg) 120 mg PO DAILY [facility]; Protocol Last Admin: 06/22/24 08:03 Dose: 120 mg Documented By: RADHA Divalproex Sodium (Divalproex Sodium Er 250 Mg Tab.Er.24h) 250 mg PO BEDTIME [facility] Last Admin: 06/21/24 20:44 Dose: 250 mg Documented By: LAN Divalproex Sodium (Divalproex Sodium Er 500 Mg Tab.Er.24h) 1,000 mg PO BEDTIME [facility] Last Admin: 06/21/24 20:44 Dose: 1,000 mg Documented By: LAN Docusate Sodium (Docusate Sodium 100 Mg Capsule) 100 mg PO BID PRN PRN Reason: Constipation Last Admin: 06/22/24 01:43 EDT Dose: 100 mg Documented By: ASHISH Enoxaparin Sodium (Enoxaparin Sodium 40 Mg/0.4 Ml Syringe) 40 mg SUBCUT Q24H [facility] Last Admin: 06/22/24 08:03 Dose: 40 mg Documented By: RADHA Fluoxetine HCl (Fluoxetine Hcl 10 Mg Capsule) 30 mg PO DAILY [facility] Last Admin: 06/22/24 08:03 Dose: 30 mg Documented By: RADHA Glucose (Glucose Gel 15 Gm Gel..Gram.) 15 gm PO Q15M PRN; Protocol PRN Reason: per Hypoglycemia Standing Ord. Guaifenesin (Guaifenesin 200 Mg/10 Ml 10 Ml Liquid) 10 ml PO Q4H PRN PRN Reason: Cough Last Admin: 06/20/24 18:03 Dose: 10 ml Documented By: ISABEL Azithromycin 500 mg/ Sodium (Chloride) 250 mls @ 125 mls/hr IV 2200 [facility] Last Infusion: 06/21/24 22:59 Dose: Infused Documented By: LAN Dextrose (D10) 250 mls @ 750 mls/hr IV Q15M PRN; Protocol PRN Reason: per Hypoglycemia Standing Ord. Insulin Human Lispro (Insulin Lispro 100 Unit/Ml 3 Ml Vial) 0 unit SUBCUT QIDACHS [facility]; Protocol Last Admin: 06/22/24 11:23 Dose: Not Given Documented By: RADHA Non-Admin Reason: poc oor Lactulose (Lactulose 20 Gm/30 Ml Solution) 20 gm PO BID [facility] Last Admin: 06/22/24 08:03 Dose: 20 gm Documented By: RADHA Lisinopril (Lisinopril 10 Mg Tablet) 10 mg PO DAILY [facility]; Protocol Last Admin: 06/22/24 08:03 Dose: 10 mg Documented By: RADHA Loratadine (Loratadine 10 Mg Tablet) 10 mg PO DAILY [facility] Last Admin: 06/22/24 08:03 Dose: 10 mg Documented By: RADHA Magnesium Hydroxide (Milk Of Magnesia 30 Ml Oral.Susp) 5 ml PO DAILY PRN PRN Reason: Constipation Last Admin: 06/21/24 12:44 Dose: 5 ml Documented By: MAXINE Nicotine Polacrilex (Nicotine Polacrilex 2 Mg Gum) 2 mg BUCCAL Q2H PRN PRN Reason: Nicotine Cravings Omeprazole (Omeprazole 20 Mg Capsule.) 20 mg PO BID@0630,1630 [facility] Last Admin: 06/22/24 06:30 Dose: 20 mg Documented By: ASHISH Polyethylene Glycol (Polyethylene Glycol 3350 17 Gm Powd.Pack) 17 gm PO DAILY [facility] Last Admin: 06/22/24 08:03 Dose: 17 gm Documented By: RADHA Senna (Sennosides 8.6 Mg Tablet) 17.2 mg PO BEDTIME PRN PRN Reason: constipation Last Admin: 06/22/24 00:28 Dose: 17.2 mg Documented By: ASHISH Sodium Chloride (0.9 % Sodium Chloride Flush 3 Ml Syringe) [facility] Last Admin: 06/22/24 07:26 Dose: Not Given Documented By: RADHA Non-Admin Reason: Previously Administered Sucralfate (Sucralfate 1 Gm Tablet) 1 gm PO TID [facility] Last Admin: 06/22/24 08:03 Dose: 1 gm Documented By: RADHA Tramadol HCl (Tramadol Hcl 50 Mg Tablet) 50 mg PO DAILY PRN PRN Reason: Severe Pain (Scale Score 7-10) Last Admin: 06/21/24 20:58 Dose: 50 mg Documented By: LAN Labs 06/19/24 05:51 06/19/24 05:51 Labs: Laboratory Results - last 24 hr 06/21/24 06/21/24 06/22/24 16:14 20:29 07:27 POC Glucose 94 101 113 06/22/24 11:15 POC Glucose 103 Microbiology Microbiology Results: Microbiology 06/19/24 Unknown Gram Stain - Final Sputum - Expectorated Sputum Culture - Preliminary Assessment and Plan (1) Acute hypoxic respiratory failure: Status: Acute Plan 58 y/o woman admitted with: Acute hypoxic respiratory failure secondary to acute exacerbation of asthma + acute bronchitis. sputum cultures pending abg -reviewed ,compensated. continue Pulse oximetry. taper supplemental O2 to keep sats > 90%. Continue bronchodilator therapy. Start empiric IV antibiotic therapy with ceftriaxone . Essential hypertension. Continue lisinopril. Mood disorder. Continue divalproex, adjusted olanzapine 300 mg qd hold clonazepam. depakote levels normal, clozapine levels pending psych saw patient-recomended to continue above. mild elevated ammonia levels -unclear ?: added lactulose. Hyperlipidemia. Continue statin. Chronic anemia. Continue to monitor hemoglobin. obesity- encouraged to lose weight and cut down calories. DVT prophylaxis: Lovenox ongoing need for hospitalization stay-hypoxic respiratory failure secondary stroke asthma exacerbation with supplemental oxygen, bronchodilator therapy and IV antibiotics. Quality Stroke Does the patient have a stroke diagnosis?: No VTE Prior VTE?: No VTE Risk Level:: Medical - moderate - high VTE Device Contraindication: Treatment Not Indicated VTE Drug Contraindication: N/A - Med Ordered
[2024-06-22 16:03] LABS: Glucose, Whole Blood 104 mg/dL (60-115)
[2024-06-22 20:08] LABS: Glucose, Whole Blood 116 mg/dL (60-115)
[2024-06-22] MEDS: Atorvastatin Calcium 40 MG TABLET PO (20:14)
[2024-06-22] MEDS: Divalproex Sodium ER 250 MG TAB.ER.24H PO (20:14)
[2024-06-22] MEDS: Divalproex Sodium ER 500 MG TAB.ER.24H 1000 MG PO (20:14)
[2024-06-22] MEDS: cloZAPine 25 MG TABLET PO (20:15)
[2024-06-22] MEDS: Azithromycin 500 MG in 0.9 % Sodium Chloride 250 ML 125 MG IV (21:44)
[2024-06-23 03:16] VITALS: BP 142/78; PULSE 90; RESP 18; TEMP 36.8; O2SAT 95
[2024-06-23] MEDS: clonazePAM 0.5 MG TABLET PO (03:38)
--- NOTE | 2024-06-23 03:40 | PC.NURSE ---
patient was getting agitated because she couldn't stay asleep for long, states she usually takes Klonopin in the morning and at night but her nighttime dose has been on hold. Dr. Meng notified & ordered 1x dose of Klonopin 0.5 mg
[2024-06-23] MEDS: Omeprazole 20 MG CAPSULE.DR PO ×2 (05:47→17:42)
[2024-06-23 07:56] VITALS: BP 154/67; PULSE 91; RESP 16; TEMP 36.2; O2SAT 97
[2024-06-23 08:04] LABS: Glucose, Whole Blood 120 mg/dL (60-115)
[2024-06-23] MEDS: polyethylene glycoL 3350 17 GM POWD.PACK PO (08:46)
[2024-06-23] MEDS: Loratadine 10 MG TABLET PO (08:46)
[2024-06-23] MEDS: Sucralfate 1 GM TABLET PO ×3 (08:46→21:54)
[2024-06-23] MEDS: FLUoxetine HCl 10 MG CAPSULE 30 MG PO (08:46)
[2024-06-23] MEDS: lisinopriL 10 MG TABLET PO (08:46)
[2024-06-23] MEDS: Lactulose 20 GM/30 ML SOLUTION PO (08:46)
[2024-06-23] MEDS: dilTIAZem HCL CD 120 MG CAP.ER.DEG PO (08:46)
[2024-06-23] MEDS: Enoxaparin Sodium 40 MG/0.4 ML SYRINGE SUBCUT (08:47)
[2024-06-23] MEDS: 0.9 % Sodium Chloride Flush 3 ML SYRINGE IVFLUSH ×3 (09:00→21:54)
[2024-06-23] MEDS: predniSONE 20 MG TABLET 40 MG PO (10:25)
--- NOTE | 2024-06-23 11:03 | MHC.CM.PN ---
Per MD rounds patient not medically cleared for dc. CM will continue to follow.
[2024-06-23 11:17] VITALS: PULSE 91; RESP 16; O2SAT 96
[2024-06-23] MEDS: Albuterol/Iprat 2.5/0.5MG 3 ML AMPUL.NEB INHALE ×2 (11:17→20:14)
[2024-06-23 11:36] LABS: Glucose, Whole Blood 105 mg/dL (60-115)
--- NOTE | 2024-06-23 14:49 | HO.PM.IMPN ---
Subjective Subjective Date of Service: 06/23/24 Interval History: copd excerebation Review of Systems sob improving mental status improving Physical Exam Vital Signs: Vital Signs: Last Vital Signs Temp 97.1 F 06/23/24 07:56 Pulse 91 06/23/24 11:17 Resp 16 06/23/24 11:17 BP 154/67 H 06/23/24 07:56 Pulse Ox 97 06/23/24 07:56 O2 Del Method Nasal Cannula 06/23/24 07:56 O2 Flow Rate 2 06/23/24 07:56 BMI result Body Mass Index 34.4 Appearance: Alert.? Oriented X3. cvs: rrr, [id number]. res: air entry improving ,less wheezing today abd: no rebound or guarding ,nt, bs present. ext pulses present , no cyanosis . neuro: axo3 , nonfocal Objective Data Active Medications Acetaminophen (Acetaminophen 325 Mg Tablet) 975 mg PO Q6H PRN PRN Reason: Pain, Mild (Pain Scale 1-3), fever or headache Albuterol Sulfate (Albuterol Sulfate (0.083%) 2.5 Mg/3 Ml Vial.Neb) 2.5 mg INHALE Q2H PRN PRN Reason: Shortness of Breath/Wheezing Last Admin: 06/22/24 00:35 Dose: 2.5 mg Documented By: SAMY Albuterol/Ipratropium (Albuterol/Iprat 2.5/0.5mg 3 Ml Ampul.Neb) 3 ml INHALE RQ4H WHILE AWAKE [facility] Last Admin: 06/23/24 11:17 Dose: 3 ml Documented By: SHANON Atorvastatin Calcium (Atorvastatin Calcium 40 Mg Tablet) 40 mg PO BEDTIME [facility] Last Admin: 06/22/24 20:14 Dose: 40 mg Documented By: ABDI Capsaicin (Capsaicin 0.025% Cream 60 Gm Tube) 1 appl TOPICAL DAILY PRN; Protocol PRN Reason: Minor Aches and Pains Clonazepam (Clonazepam 0.5 Mg Tablet) 0.5 mg PO DAILY [facility] Last Admin: 06/23/24 09:01 Dose: Not Given Documented By: ISABEL Non-Admin Reason: Physician Held Med Clonazepam (Clonazepam 1 Mg Tablet) 1 mg PO BEDTIME [facility] Clozapine (Clozapine 25 Mg Tablet) 25 mg PO BEDTIME [facility] Last Admin: 06/22/24 20:15 Dose: 25 mg Documented By: ABDI Diltiazem HCl (Diltiazem Hcl Cd 120 Mg Cap.Er.Deg) 120 mg PO DAILY [facility]; Protocol Last Admin: 06/23/24 08:46 Dose: 120 mg Documented By: ISABEL Divalproex Sodium (Divalproex Sodium Er 250 Mg Tab.Er.24h) 250 mg PO BEDTIME [facility] Last Admin: 06/22/24 20:14 Dose: 250 mg Documented By: ABDI Divalproex Sodium (Divalproex Sodium Er 500 Mg Tab.Er.24h) 1,000 mg PO BEDTIME [facility] Last Admin: 06/22/24 20:14 Dose: 1,000 mg Documented By: ABDI Docusate Sodium (Docusate Sodium 100 Mg Capsule) 100 mg PO BID PRN PRN Reason: Constipation Last Admin: 06/22/24 01:43 EDT Dose: 100 mg Documented By: ASHISH Enoxaparin Sodium (Enoxaparin Sodium 40 Mg/0.4 Ml Syringe) 40 mg SUBCUT Q24H [facility] Last Admin: 06/23/24 08:47 Dose: 40 mg Documented By: ISABEL Fluoxetine HCl (Fluoxetine Hcl 10 Mg Capsule) 30 mg PO DAILY [facility] Last Admin: 06/23/24 08:46 Dose: 30 mg Documented By: ISABEL Glucose (Glucose Gel 15 Gm Gel..Gram.) 15 gm PO Q15M PRN; Protocol PRN Reason: per Hypoglycemia Standing Ord. Guaifenesin (Guaifenesin 200 Mg/10 Ml 10 Ml Liquid) 10 ml PO Q4H PRN PRN Reason: Cough Last Admin: 06/20/24 18:03 Dose: 10 ml Documented By: ISABEL Azithromycin 500 mg/ Sodium (Chloride) 250 mls @ 125 mls/hr IV 2200 [facility] Last Infusion: 06/23/24 00:12 Dose: Infused Documented By: ABDI Dextrose (D10) 250 mls @ 750 mls/hr IV Q15M PRN; Protocol PRN Reason: per Hypoglycemia Standing Ord. Insulin Human Lispro (Insulin Lispro 100 Unit/Ml 3 Ml Vial) 0 unit SUBCUT QIDACHS [facility]; Protocol Last Admin: 06/23/24 12:38 Dose: Not Given Documented By: ISABEL Non-Admin Reason: No Insulin Coverage Lactulose (Lactulose 20 Gm/30 Ml Solution) 20 gm PO BID [facility] Last Admin: 06/23/24 08:46 Dose: 20 gm Documented By: ISABEL Lisinopril (Lisinopril 10 Mg Tablet) 10 mg PO DAILY [facility]; Protocol Last Admin: 06/23/24 08:46 Dose: 10 mg Documented By: ISABEL Loratadine (Loratadine 10 Mg Tablet) 10 mg PO DAILY [facility] Last Admin: 06/23/24 08:46 Dose: 10 mg Documented By: ISABEL Magnesium Hydroxide (Milk Of Magnesia 30 Ml Oral.Susp) 5 ml PO DAILY PRN PRN Reason: Constipation Last Admin: 06/21/24 12:44 Dose: 5 ml Documented By: MAXINE Nicotine Polacrilex (Nicotine Polacrilex 2 Mg Gum) 2 mg BUCCAL Q2H PRN PRN Reason: Nicotine Cravings Omeprazole (Omeprazole 20 Mg Capsule.) 20 mg PO BID@0630,1630 [facility] Last Admin: 06/23/24 05:47 Dose: 20 mg Documented By: ABDI Polyethylene Glycol (Polyethylene Glycol 3350 17 Gm Powd.Pack) 17 gm PO DAILY [facility] Last Admin: 06/23/24 08:46 Dose: 17 gm Documented By: ISABEL Prednisone (Prednisone 20 Mg Tablet) 40 mg PO DAILY [facility] Last Admin: 06/23/24 10:25 Dose: 40 mg Documented By: ISABEL Senna (Sennosides 8.6 Mg Tablet) 17.2 mg PO BEDTIME PRN PRN Reason: constipation Last Admin: 06/22/24 00:28 Dose: 17.2 mg Documented By: ASHISH Sodium Chloride (0.9 % Sodium Chloride Flush 3 Ml Syringe) 3 ml IVFLUSH QSHIFT [facility] Last Admin: 06/23/24 09:00 Dose: 3 ml Documented By: ISABEL Sucralfate (Sucralfate 1 Gm Tablet) 1 gm PO TID [facility] Last Admin: 06/23/24 08:46 Dose: 1 gm Documented By: ISABEL Tramadol HCl (Tramadol Hcl 50 Mg Tablet) 50 mg PO DAILY PRN PRN Reason: Severe Pain (Scale Score 7-10) Last Admin: 06/21/24 20:58 Dose: 50 mg Documented By: LAN Labs 06/19/24 05:51 06/19/24 05:51 Labs: Laboratory Results - last 24 hr 06/22/24 06/22/24 06/23/24 15:58 20:02 07:58 POC Glucose 104 116 H 120 H 06/23/24 11:25 POC Glucose 105 Microbiology Microbiology Results: Microbiology 06/19/24 Unknown Gram Stain - Final Sputum - Expectorated Sputum Culture - Preliminary Assessment and Plan (1) Acute hypoxic respiratory failure: Status: Acute Plan 58 y/o woman admitted with: Acute hypoxic respiratory failure secondary to acute exacerbation of asthma + acute bronchitis. sputum cultures pending continue Pulse oximetry. taper supplemental O2 to keep sats > 90%. Continue bronchodilator therapy. Start empiric IV antibiotic therapy with ceftriaxone . Essential hypertension. Continue lisinopril. Mood disorder. Continue divalproex, adjusted olanzapine 300 mg qd hold clonazepam. depakote levels normal, clozapine levels pending psych saw patient-recomended to continue above. mild elevated ammonia levels -flactuating from 2020 , d/w dr knox from psych-continue valproic acid (since valproic acid-normal ), stop lactulose. Hyperlipidemia. Continue statin. Chronic anemia. Continue to monitor hemoglobin. obesity- encouraged to lose weight and cut down calories. DVT prophylaxis: Lovenox ongoing need for hospitalization stay-hypoxic respiratory failure secondary stroke asthma exacerbation with supplemental oxygen, bronchodilator therapy and IV antibiotics. Quality Stroke Does the patient have a stroke diagnosis?: No VTE Prior VTE?: No VTE Risk Level:: Medical - moderate - high VTE Device Contraindication: Treatment Not Indicated VTE Drug Contraindication: N/A - Med Ordered
[2024-06-23 15:48] LABS: Ammonia 57 umol/L (13-55)
[2024-06-23 15:54] VITALS: BP 99/57; PULSE 95; RESP 18; TEMP 36.2; O2SAT 94
[2024-06-23 16:50] LABS: Glucose, Whole Blood 155 mg/dL (60-115)
[2024-06-23] MEDS: Insulin Lispro 100 UNIT/ML 3 ML VIAL SUBCUT ×2 (17:41→20:58)
[2024-06-23 19:32] VITALS: BP 121/58; PULSE 90; RESP 18; TEMP 36; O2SAT 95
[2024-06-23 19:53] LABS: Glucose, Whole Blood 154 mg/dL (60-115)
[2024-06-23 20:15] VITALS: PULSE 90; RESP 18; O2SAT 95
[2024-06-23] MEDS: Azithromycin 500 MG in 0.9 % Sodium Chloride 250 ML 125 MG IV (21:53)
[2024-06-23] MEDS: Atorvastatin Calcium 40 MG TABLET PO (21:53)
[2024-06-23] MEDS: Divalproex Sodium ER 500 MG TAB.ER.24H 1000 MG PO (21:53)
[2024-06-23] MEDS: clonazePAM 1 MG TABLET PO (21:54)
[2024-06-23] MEDS: Divalproex Sodium ER 250 MG TAB.ER.24H PO (21:54)
[2024-06-23] MEDS: cloZAPine 25 MG TABLET PO (21:54)
[2024-06-23] MEDS: traMADoL HCL 50 MG TABLET PO (22:33)
[2024-06-24 03:35] VITALS: BP 106/50; PULSE 79; RESP 18; TEMP 36.4; O2SAT 93
[2024-06-24] MEDS: Omeprazole 20 MG CAPSULE.DR PO (05:58)
[2024-06-24 08:00] VITALS: BP 124/72; PULSE 80; RESP 18; TEMP 36.2; O2SAT 97
[2024-06-24 08:12] LABS: Glucose, Whole Blood 118 mg/dL (60-115)
[2024-06-24] MEDS: Loratadine 10 MG TABLET PO (08:24)
[2024-06-24] MEDS: polyethylene glycoL 3350 17 GM POWD.PACK PO (08:24)
[2024-06-24] MEDS: dilTIAZem HCL CD 120 MG CAP.ER.DEG PO (08:24)
[2024-06-24] MEDS: lisinopriL 10 MG TABLET PO (08:24)
[2024-06-24] MEDS: Sucralfate 1 GM TABLET PO (08:25)
[2024-06-24] MEDS: predniSONE 20 MG TABLET 40 MG PO (08:25)
[2024-06-24] MEDS: Enoxaparin Sodium 40 MG/0.4 ML SYRINGE SUBCUT (08:25)
[2024-06-24] MEDS: FLUoxetine HCl 10 MG CAPSULE 30 MG PO (08:25)
[2024-06-24] MEDS: clonazePAM 0.5 MG TABLET PO (08:37)
[2024-06-24] MEDS: Albuterol/Iprat 2.5/0.5MG 3 ML AMPUL.NEB INHALE ×2 (08:50→11:35)
[2024-06-24 08:51] VITALS: PULSE 89; RESP 18; O2SAT 94
[2024-06-24 11:32] LABS: Glucose, Whole Blood 128 mg/dL (60-115)
[2024-06-24 11:36] VITALS: PULSE 103; RESP 18; O2SAT 94
--- NOTE | 2024-06-24 12:44 | P.DS_ITS ---
DS: Providers Provider Date of Service: 06/24/24 Date of admission: 06/19/24 00:06 Date of discharge: 06/24/24 Primary care physician: Brenna Brower MD Consults: 06/19/24 14:20 Consult to Psychiatry Routine Consulting Provider: Psych Covering Reason for consultation: Schizophrenia-? continue cloazapine Has provider been notified: No Attending physician on discharge: Brian Waller Discharging clinician: Brian Waller DS: Diagnosis Discharge Diagnosis (1) Acute hypoxic respiratory failure: Status: Acute DS: Summary Hospital Course Hospital Course: HPI:58 years old woman with past medical history significant for asthma, depression, constipation and essential hypertension presents to the emergency department complaining of 5 days' history of worsening shortness on breath associated with wheezing, productive cough of greenish sputum and suggestive fever. She also reported chest tightness. She did not report any acute gastrointestinal genitourinary symptoms. She is a tobacco smoker, smokes 1 pack every 3 days. Denied alcohol use or illicit drug use. In the ED, she was found to have oxygen saturation of 86% on room air, she is currently requiring 2 L/min supplemental oxygen. There is mild tachycardia and tachypnea. Last blood pressure was 128/64. Blood workup showed leukocytosis 1 1.5. Hemoglobin is 8.6 which is at baseline. Platelets are 427. There are no significant electrolytes. Troponin is negative. Venous blood gas showed no respiratory acidosis. Urinalysis is normal. Viral testing for COVID-19, influenza and RSV is negative. ED tx: Solu-Medrol 60 mg IV, DuoNeb x3, magnesium 2 g IV. Hospital course: Patient was admitted to the hospital because of acute hypoxemic respiratory failure secondary to asthma exacerbation( likely mild persistent)/copd and superimposed possible viral bronchitis entero/rhino virus: Patient had mild leukocytosis, cough and productive sputum, chest x-ray negative, head CT also negative: Patient was initially feeling significantly URI like symptoms and generalized weakness-started on nebs, steroids, cough medication patient seems to be improved significantly, sputum culture came back Haemophilus influenza so patient was started on Ceftin. walked fine with sats 90% . Mood disorder: Patient to continue her valproic acid, clozapine and valproic acid. Valproic acid levels within the normal limit, ammonia level fluctuates chronically, patient will be on lactulose for constipation so that might also help with the ammonia levels. Discussed with the psychiatry since they valproic acidwithin the normal limit, continue valproic acid, check ammonia levels outpatient in 1 week. In addition clozapine was adjusted to 300 mg daily as per psych, Further use lactulose as per PCP outpatient. Patient is to follow-up with psych outpatient. plan: Patient will be going home with p.o. prednisone 40 mg daily for 4 days. Ceftin 500 mg p.o. b.i.d. for 7 days. Check CBC in 1 week out patiently since patient is on clozapine,Clozapine adjusted to 300 mg po dialy as per psych, clozapine levels pending -need to follow up outpatient . Further management outpatient with PCP as well as follow-up with psych outpatient. Above management discussed with the patient in detail length ,time spent 40 min. Time Attestation Total time managing care of this patient today: 40 mintues. Discharge Coordination Time (in mins): 40 min Quality: Safe Use of Opioids Does Pt have an Active Cancer Diagnosis on the Problem List?: No Quality: Stroke Does the patient have a stroke diagnosis?: No Physical Exam Vital Signs: Vital Signs: Last Vital Signs Temp 97.2 F 06/24/24 08:00 Pulse 103 H 06/24/24 11:36 Resp 18 06/24/24 11:36 BP 124/72 06/24/24 08:00 Pulse Ox 97 06/24/24 08:00 O2 Del Method Room Air 06/24/24 08:00 O2 Flow Rate 2 06/23/24 15:54 BMI result Body Mass Index 34.4 Appearance: Alert.? Oriented X3. cvs: rrr, [id number]. res: air entry fair , no rales or wheezing abd: no rebound or guarding ,nt, bs present. ext pulses present , no cyanosis . neuro: axo3 , nonfocal DS: Data Data Completed and Pending Completed studies during hospitalization [Text1]: Procedures Excision of Duodenum, Via Natural or Artificial Opening Endoscopic, Diagnostic (03/31/24) Excision of Stomach, Pylorus, Via Natural or Artificial Opening Endoscopic, Diagnostic (03/31/24) Inspection of Lower Intestinal Tract, Via Natural or Artificial Opening Endoscopic (03/31/24) Transfusion of Nonautologous Red Blood Cells into Peripheral Vein, Percutaneous Approach (03/31/24) Labs on day of discharge: Laboratory Results - last 24 hr 06/23/24 06/23/24 06/23/24 15:18 16:44 19:46 POC Glucose 155 H 154 H Ammonia 57 H 06/24/24 06/24/24 08:02 11:23 POC Glucose 118 H 128 H Ammonia Imaging Chest x-ray: Radiologist's impression: ITS Impressions Chest X-Ray 06/18/24 15:40 IMPRESSION: No evidence for acute process. Electronically signed by: Giacomo Woodruff MD 06/18/2024 04:37 PM EDT RP Head CT 06/20/24 13:49 IMPRESSION: No acute intracranial hemorrhage. Acute on chronic paranasal sinus disease. Electronically signed by: Will Langley MD 06/20/2024 03:39 PM EDT RP Discharge Plan Discharge Anticipated Discharge Date/Time: 06/24/24 12:13 Patient Disposition: Home Health Service Discharge Diagnosis: Acute hypoxemic respiratory failure secondary to asthma exacerbation Referrals: [facility] [Outside] - 1 Week (HOME CARE FOR PHYSICAL THERAPY- A THERAPIST WILL REACH OUT TO YOU TO SET UP FIRST VISIT) Brenna Liriano MD [Primary Care Provider] - 1 Week Discharge Medications: New nicotine 21 mg/24 hr patch 24 hour 1 patch transdermal Q24H Qty: 14 0RF cefuroxime axetil 500 mg Tablet 500 mg PO Q12H Qty: 14 0RF Continued diltiazem HCl 120 mg capsule,extended release 24hr 120 mg PO DAILY Qty: 30 2RF albuterol sulfate [Ventolin HFA] 90 mcg/actuation HFA aerosol inhaler 2 puff INHALATION Q6H PRN (Reason: Shortness Of Breath Or Wheezing) sucralfate 1 gram tablet 1 g PO TID tramadol 50 mg tablet 50 mg PO DAILY PRN (Reason: Severe Pain (Scale Score 7-10)) fluoxetine 10 mg Capsule 30 mg PO DAILY Qty: 90 0RF clonazepam 1 mg tablet 1 mg PO BEDTIME Qty: 30 0RF montelukast 10 mg tablet 10 mg PO DAILY Qty: 30 0RF metformin 500 mg tablet extended release 24 hr 500 mg PO BID Qty: 60 0RF sennosides [senna] 8.6 mg tablet 17.2 mg PO BEDTIME PRN (Reason: constipation) clonazepam 0.5 mg tablet 0.5 mg PO DAILY lisinopril 10 mg tablet 10 mg PO DAILY atorvastatin 40 mg tablet 40 mg PO BEDTIME omeprazole 20 mg capsule,delayed release(DR/EC) 20 mg PO BID@0630,1630 capsaicin 0.025 % Cream 1 appl TOPICAL DAILY PRN (Reason: Minor Aches and Pains) Rx Instructions: do not wash area for at least 30 min after application clozapine 25 mg tablet 25 mg PO BEDTIME Rx Instructions: TDD= 325 MG loratadine 10 mg tablet 10 mg PO DAILY fluticasone propionate 110 mcg/actuation HFA aerosol inhaler 2 puff INHALATION BID polyethylene glycol 3350 17 gram powder in packet 17 g PO DAILY magnesium hydroxide [Milk of Magnesia] 400 mg/5 mL suspension 5 ml PO DAILY PRN (Reason: Constipation) docusate sodium 100 mg capsule 100 mg PO BID PRN (Reason: Constipation) clozapine 100 mg tablet 300 mg PO BEDTIME Patient Comments: TDD = 325 MG Rx Instructions: TDD= 325 MG divalproex 250 mg tablet extended release 24 hr 250 mg PO BEDTIME Rx Instructions: TDD= 1250 MG albuterol sulfate 2.5 mg /3 mL (0.083 %) solution for nebulization 2.5 mg inhalation Q4H PRN (Reason: wheezing) Qty: 60 0RF divalproex 500 mg tablet extended release 24 hr 1,000 mg PO BEDTIME Rx Instructions: TDD = 1250 MG Discharge Orders: Discharge Order (Routine); Ordered 06/24/24 Ordered By: Brian Waller Diet: Advance to usual diet Activity on Discharge: As tolerated Stand Alone Forms: Patient Portal Discharge page Print Language: Turkmen Other Ambulatory Orders: Ammonia (Routine) Timeframe: 1 Week Facility: [facility] - Location: Laboratory Ordered By: Brian Waller Complete Blood Count no Diff (Routine) Timeframe: 1 Week Facility: [facility] - Location: Laboratory Ordered By: Brian Waller Comprehensive Met. Panel (Routine) Timeframe: 1 Week Facility: [facility] - Location: Laboratory Ordered By: Brian Waller Care Plan Goals: Patient was admitted to the hospital because of acute hypoxemic respiratory failure secondary to asthma exacerbation and superimposed possible viral bronchitis entero/rhino virus: Patient had mild leukocytosis, cough and productive sputum, chest x-ray negative, head CT also negative: Patient was initially feeling significantly URI like symptoms and generalized weakness- started on nebs, steroids, cough medication patient seems to be improved significantly, sputum culture came back Haemophilus influenza so patient was started on Ceftin. Mood disorder: Patient to continue her valproic acid, clozapine and valproic acid. Valproic acid levels within the normal limit, ammonia level fluctuates chronically, patient will be on lactulose for constipation so that might also help with the ammonia levels. Discussed with the psychiatry since they valproic acidwithin the normal limit, continue valproic acid, check ammonia levels outpatient in 1 week. In addition clozapine was adjusted to 300 mg daily as per psych, Further use lactulose as per PCP outpatient. Patient is to follow-up with psych outpatient. Health Concerns: Patient will be going home with p.o. prednisone 40 mg daily for 4 days. Ceftin 500 mg p.o. b.i.d. for 7 days. Check CBC in 1 week out patiently since patient is on clozapine,Clozapine adjusted to 300 mg po dialy as per psych, clozapine levels pending -need to follow up outpatient . Further management outpatient with PCP as well as f dylan-up with psych outpatient. Plan of Treatment: As above. Assessment: As above. Discharge Date/Time: 06/24/24 13:59
--- NOTE | 2024-06-24 12:54 | MHC.CM.PN ---
DP: PT HAS BEEN MEDICALLY CLEARED FOR DC HOME WITH NEW [facility] FOR P.T. SERVICES. PT IS AGREEABLE TO [facility] SERVICES VIA [employer]. [facility] AWARE OF TODAY'S DC. PT'S CG WILL TRANSPORT HOME
[2024-06-24] MEDS: cefuroxime axetiL 500 MG TABLET PO (12:58)
--- NOTE | 2024-06-24 14:37 | P.F2F_ITS ---
Service Date Service Date: 06/24/24 Encounter Date of encounter: 06/24/24 Encounter: asthma /cood Reasons for Services Signs and symptoms assessed: sob Reason for physical therapy: home safety and mobility, therapeutic exercises, restore joint function, gait/transfer training, assess need for DME, ADL training, energy conservation and other MD Overseeing Care: Brenna Brower Homebound: Leaving the home is medically contraindicated at this time without the asist of a device and/or another person due th the listed conditions above and below. Reason homebound: weakness related to hospital stay Homebound supporting statement: patient is generalised weak posthospilisation stay - need help with home PT. Certification: Based on the above findings, I certify that this patient is confined to the home and needs intermittent assisted care, physical therapy and/or speech therapy, or continues to need occupational therapy. The patient is under my care, and I have initiated the establishment of the plan of care. The patient will be followed by a physician who will periodically review the plan of care. Time Spent With Patient Time: Total time managing care of this patient today ____ minutes.
[2024-06-26 04:54] LABS: Clozapine (Clozaril) 552 mcg/L; Norclozapine 144 mcg/L (25-400)
== END 2024-06-24 13:59 | disposition home health service (06) | DRG 145 ==
LOC: HO.ED 21:35 → HO.EDOVER 06-19 00:12 → HO.IMC 06-19 01:10 → HO.S3 06-19 14:36
PROVIDERS: Admitting Provider Internal Medicine; Emergency Provider Student in an Organized Health Care Education/Training Program; PCP Internal Medicine; Visit Provider Internal Medicine
DX: J20.6 Acute bronchitis due to rhinovirus (principal); J96.01 Acute respiratory failure with hypoxia; J44.0 Chronic obstructive pulmonary disease with (acute) lower respiratory infection; J45.41 Moderate persistent asthma with (acute) exacerbation; J44.1 Chronic obstructive pulmonary disease with (acute) exacerbation; F17.210 Nicotine dependence, cigarettes, uncomplicated; I10 Essential (primary) hypertension; E78.5 Hyperlipidemia, unspecified; D64.9 Anemia, unspecified; F20.9 Schizophrenia, unspecified; E66.9 Obesity, unspecified; K59.00 Constipation, unspecified; B96.3 Hemophilus influenzae [H. influenzae] as the cause of diseases classified elsewhere; Z68.34 Body mass index [BMI] 34.0-34.9, adult; Z71.6 Tobacco abuse counseling; Z20.822 Contact with and (suspected) exposure to COVID-19; Z79.01 Long term (current) use of anticoagulants; Z79.51 Long term (current) use of inhaled steroids; Z79.899 Other long term (current) drug therapy
CPT/HCPCS: 0241U; 36415; 36600; 70450; 71046; 80048; 80053; 80159; 80164; 81003; 82140; 82803; 82947; 84484; 85025; 87070; 87077; 87185; 87205; 87633; 93005; 94640; 97161; 99285; J0456; J1650; J2919; J3475

== ENCOUNTER → 2024-06-18 15:15 | Outpatient (BNV) | payer MEDICAID, SELFPAY | PROVIDERS: Admitting Provider Internal Medicine; Emergency Provider Student in an Organized Health Care Education/Training Program; Visit Provider Internal Medicine | DX: R07.9 Chest pain, unspecified (principal) | CPT/HCPCS: 93010 ==

== ENCOUNTER 2024-06-19 00:06 | Outpatient (BNV) | payer MEDICAID, SELFPAY | END 2024-06-20 13:49 | PROVIDERS: Admitting Provider Internal Medicine; Emergency Provider Student in an Organized Health Care Education/Training Program; Visit Provider Radiology Diagnostic Radiology | DX: J32.8 Other chronic sinusitis (principal) | CPT/HCPCS: 70450 ==

== ENCOUNTER → 2024-06-19 00:06 | Outpatient (BNV) | payer OTHER, SELFPAY | PROVIDERS: Admitting Provider Internal Medicine; Emergency Provider Student in an Organized Health Care Education/Training Program; Visit Provider Psychiatry & Neurology Psychiatry | DX: F25.0 Schizoaffective disorder, bipolar type (principal); J96.01 Acute respiratory failure with hypoxia; J45.41 Moderate persistent asthma with (acute) exacerbation | CPT/HCPCS: 99232 ==

== ENCOUNTER → 2024-06-19 00:06 | Outpatient (BNV) | payer MEDICAID, SELFPAY | PROVIDERS: Admitting Provider Internal Medicine; Emergency Provider Student in an Organized Health Care Education/Training Program; Visit Provider Internal Medicine | DX: J96.01 Acute respiratory failure with hypoxia (principal) | CPT/HCPCS: 99223; 99231; 99232; 99239; 99499; G0180 ==

== ENCOUNTER 2024-07-02 12:08 | Outpatient (REF) | payer MEDICAID, SELFPAY ==
[2024-07-02 12:33] LABS: MANUAL DIFF FLAG NO
[2024-07-02 12:56] LABS: Basophils Percent Auto 0.2 % (0-2); Eosinophils Absolute Auto 0.1 X10*3/uL (0.0-0.4); Eosinophils Percent Auto 1.6 % (0-4); Hematocrit 30.3 % (37.0-47.0); Hemoglobin 8.8 g/dl (12.0-16.0); Imm Gran Abs Auto 0.11 X10*3/uL (0.00-0.03); Imm Gran Pct Auto 1.3 % (0.0-0.4); Lymphocytes Absolute Auto 1.7 X10*3/uL (1.2-4.9); Lymphocytes Percent Auto 20.5 % (20-40); Mean Corpuscular Hemoglobin 22.1 pg (27.0-33.0); Mean Corpuscular Volume 75.9 fL (80.0-98.0); Mean Platelet Volume 11.3 fL (9.4-12.3); Monocytes Absolute Auto 0.6 X10*3/uL (0.1-1.2); Monocytes Percent Auto 6.9 % (2-11); Neutrophils Absolute Auto 5.8 x10*3/uL (2.0-8.3); Neutrophils Percent Auto 69.5 % (45-73); Platelet Count 335 X10*3/uL (160-400); Red Blood Count 3.99 X10*6/uL (4.20-5.50); Red Cell Distribution Width 22.2 % (11.0-16.0); White Blood Count 8.4 X10*3/uL (4.8-10.8)
== END 2024-07-02 12:09 | disposition home or self-care (01) ==
LOC: HO.LABR 12:08
PROVIDERS: PCP Internal Medicine; Visit Provider Clinical Nurse Specialist Psychiatric/Mental Health, Adult
DX: Z79.899 Other long term (current) drug therapy (principal)
CPT/HCPCS: 36415; 85025

== ENCOUNTER 2024-07-15 14:47 | Outpatient (REF) | payer MEDICAID, SELFPAY | END 2024-07-15 14:48 | disposition home or self-care (01) | LOC: HO.HHCL 14:47 | PROVIDERS: Visit Provider Internal Medicine | DX: Z13.89 Encounter for screening for other disorder (principal) ==

== ENCOUNTER 2024-07-21 08:40 | Outpatient (REF) | payer MEDICAID, SELFPAY ==
[2024-07-21 14:44] LABS: MANUAL DIFF FLAG NO
[2024-07-21 14:47] LABS: Basophils Percent Auto 0.2 % (0-2); Eosinophils Absolute Auto 0.1 X10*3/uL (0.0-0.4); Eosinophils Percent Auto 0.9 % (0-4); Hematocrit 32.2 % (37.0-47.0); Hemoglobin 9.4 g/dl (12.0-16.0); Imm Gran Abs Auto 0.03 X10*3/uL (0.00-0.03); Imm Gran Pct Auto 0.3 % (0.0-0.4); Lymphocytes Percent Auto 22.3 % (20-40); Mean Corpuscular HGB Conc 29.2 g/dl (31.0-35.0); Mean Corpuscular Hemoglobin 21.8 pg (27.0-33.0); Mean Corpuscular Volume 74.7 fL (80.0-98.0); Mean Platelet Volume 10.9 fL (9.4-12.3); Monocytes Absolute Auto 0.7 X10*3/uL (0.1-1.2); Neutrophils Percent Auto 68.3 % (45-73); Platelet Count 380 X10*3/uL (160-400); Red Blood Count 4.31 X10*6/uL (4.20-5.50); Red Cell Distribution Width 21.2 % (11.0-16.0); White Blood Count 8.7 X10*3/uL (4.8-10.8)
[2024-07-21 14:51] LABS: Prothrombin Time 11.1 SEC (10.9-12.4)
[2024-07-21 14:54] LABS: Partial Thromboplastin Time 44.4 SEC (26.0-36.8)
[2024-07-21 15:06] LABS: Ammonia 37 umol/L (13-55)
[2024-07-21 15:21] LABS: Alanine Aminotransferase 11 U/L (0-31); Alkaline Phosphatase 86 U/L (39-117); Anion Gap 17 (12-20); Aspartate Amino Transferase 21 U/L (5-31); Bilirubin Total 0.3 mg/dL (0.0-1.0); Blood Urea Nitrogen 11 mg/dL (9-16); Calcium 9.6 mg/dL (8.4-10.2); Carbon Dioxide 27 mmol/L (22-29); Chloride 102 mmol/L (96-108); Estimated Glomerular Filt Rate > 60; Glucose Random 98 mg/dL (60-115); Potassium 4.7 mmol/L (3.3-5.1); Sodium 141 mmol/L (135-145); Total Protein 7.2 g/dL (6.5-8.0)
[2024-07-21 15:39] LABS: Ferritin 15 ng/mL (10-250)
[2024-07-24 17:48] LABS: Mixing Study - PT 11.3 sec (9.0-11.5); PTT LA 44 sec (< OR = 40); PTT-LA Mix NOT CORRECTED
[2024-07-28 12:54] LABS: Factor VIII Activity 136 % normal (50-180); Factor XI Activity 124 % (65-150); PTT, Activated 30 sec (23-32); Ristocetin Cofactor 124 % normal (42-200); Von Willebrand Factor Antigen 127 % (50-217)
== END 2024-07-21 08:41 | disposition home or self-care (01) ==
LOC: HO.LAB 08:40
PROVIDERS: Internal Medicine; Absent Provider Internal Medicine; PCP Internal Medicine; Visit Provider Internal Medicine Gastroenterology
DX: D64.9 Anemia, unspecified (principal); J96.11 Chronic respiratory failure with hypoxia; F20.9 Schizophrenia, unspecified
CPT/HCPCS: 36415; 80053; 82140; 82728; 85025; 85230; 85240; 85245; 85246; 85247; 85250; 85270; 85610; 85611; 85730; 85732

== ENCOUNTER → 2024-07-21 08:40 | Outpatient (AMB) | payer MEDICAID, SELFPAY ==
--- NOTE | 2024-07-21 08:40 | MHC.OFFVIS ---
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 Business Technology Professor Required: Yes Business Technology Professor Name: Iris - BUS DISPATCHER INTERSTATE Allergies diazepam [From Valium] Allergy (Unknown, Verified 07/21/24 08:41) Unknown haloperidol [From Haldol] Allergy (Unknown, Verified 07/21/24 08:41) Unknown Penicillins Allergy (Unknown, Verified 07/21/24 08:41) Unknown risperidone [From Risperdal] Allergy (Unknown, Verified 07/21/24 08:41) Unknown aspirin [Aspirin] Adverse Reaction (Intermediate, Verified 07/21/24 08:41) Vomiting trazodone [TRAZODONE] Adverse Reaction (Intermediate, Verified 07/21/24 08:41) NAUSEA & VOMITING HPI HPI discuss EGD possible APC: Details: 58 yr old f with hx of schizophrenia, and prior ischemic colitis called for f/u RECAP LAst seen by me 2020 She was initially admitted to for psychiatric issues and was having meds titrated she then developed diffuse abdominal pain with low BP and diarrhea with dizziness. Passing loose stools, no blood being seen in stools, but background hx of chronic constipation Appetite was poor Her BP was low but had recovered. she couldn;t recall having had colonoscopy or similar sx in the past, not on nsaids No FH of CRC SHe was also seen by Dr Lu [address] Imaging: redundant colon with inflammatory colonic changes from spelnic flexure to left colon I suspected she had hypotension and subsequent ischemic colitis, could be due to psych meds, or results of constipation worsened by her redundant colon. EGD/colon: 04/02/24 Endoscopy Findings: mild gastritis Colonoscopy Findings: tortuous colon melanosis coli internal hemorrhoids Capsule endo: 06/18/24 Findings: esophagus looked normal. stomach with punctate mucosal bleeding points with more ozzing at the antral area. 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 No masses or ulcers. cecum entered at 7hr 33 min Conclusion: AVM and mucosal bleeding can offer endoscopic therapy vs medical treatment after discussion with patient r/o valvular heart disease, bleeding d/o etc and other secondary causes Note; APTT has been elevated in the past on several occasions INTERIM: no alcohol no nausea, or vomiting appetite is good no melena or rectal bleeding constipation is not an issue A/P- chronic anemia, with nml MCV, mucosal bleeding possibly from bleeding disorder--HGB been stable on labs PLAN: 1/ check micing studies and VWf 2/ if neg then offered SQ octreotide vs APC--she will consider PFSH Medical History Anemia Diabetes Morbid obesity due to excess calories Anxiety Chronic mental illness COPD (chronic obstructive pulmonary disease) Hyperlipidemia Schizophrenia Asthma Surgical History Hx of colonoscopy History of tubal ligation H/O right knee surgery History of appendectomy Family History Father Throat cancer Mother CVA (cerebral vascular accident) Brother Drug overdose Sister No problems noted. Sister No problems noted. Son No problems noted. Son No problems noted. 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: Caregiver Household Members Other:: Lanny Soto, Inocencio Soto, - foster parents Housing: House Do you presently have visiting nurse or other home services: Yes Unable to assess alcohol history related to: Unknown Alcohol intake: never Comment: pt moves well s sba Patient Tobacco Use Status: Former Tobacco user Tobacco use type: Cigarette Cigarettes Per Day: 10 e-Cigarette/Vaping Use: Never Used Second Hand Smoke Exposure: No Advance Directives Date on File: 12/13/22 service: No Current occupational status: disabled Sexual orientation: Straight/Heterosexual Telehealth Telehealth Telehealth Platform: [facility] Location of provider rendering services: practice address Location of patient: address on file Patient Identification confirmed using: Name, : Yes Telehealth method: video Patient verbally consented to treatment: Yes Patient verbally consented to billing insurance company: Yes Patient informed of any privacy concerns related to visit: Yes Minutes spent on Phone/Video with Pt.: 9 Assessment & Plan Assessment & Plan (1) Anemia: Code(s): D64.9 - Anemia, unspecified Category: Medical Qualifiers: Iron deficiency anemia type: chronic blood loss Plan: see above Orders: Orders Mixing Study (PT/PTT) Today D64.9 - Anemia, unspecified von Willebrand Ag Multimeric Today D64.9 - Anemia, unspecified Ferritin Today D64.9 - Anemia, unspecified PTT Heparin Drip Today D64.9 - Anemia, unspecified von Willebrand Comp. Profile Today D64.9 - Anemia, unspecified Von Willebrand Factor Antigen Today D64.9 - Anemia, unspecified Factor VIII Activity Today D64.9 - Anemia, unspecified Factor XI Activity Today D64.9 - Anemia, unspecified Factor VII Activity Today D64.9 - Anemia, unspecified Factor IX Activity Today D64.9 - Anemia, unspecified Prothrombin Time INR Today D64.9 - Anemia, unspecified Coding Level of Care Code Tele Est Pt Level 3 (03677) Diagnoses Anemia D64.9 Iron deficiency anemia type: chronic blood loss
== END ==
LOC: HO.HGI 08:40
PROVIDERS: PCP Internal Medicine; Visit Provider Internal Medicine Gastroenterology
DX: D64.9 Anemia, unspecified (principal)
CPT/HCPCS: 99213

== ENCOUNTER 2024-08-04 11:17 | Outpatient (REF) | payer MEDICAID, SELFPAY ==
[2024-08-04 11:39] LABS: MANUAL DIFF FLAG NO
[2024-08-04 13:00] LABS: Basophils Percent Auto 0.3 % (0-2); Eosinophils Absolute Auto 0.1 X10*3/uL (0.0-0.4); Eosinophils Percent Auto 0.8 % (0-4); Hematocrit 28.3 % (37.0-47.0); Hemoglobin 8.2 g/dl (12.0-16.0); Imm Gran Abs Auto 0.07 X10*3/uL (0.00-0.03); Imm Gran Pct Auto 0.8 % (0.0-0.4); Lymphocytes Absolute Auto 1.8 X10*3/uL (1.2-4.9); Lymphocytes Percent Auto 19.1 % (20-40); Mean Corpuscular Hemoglobin 21.5 pg (27.0-33.0); Mean Corpuscular Volume 74.3 fL (80.0-98.0); Mean Platelet Volume 10.9 fL (9.4-12.3); Monocytes Absolute Auto 0.9 X10*3/uL (0.1-1.2); Monocytes Percent Auto 9.1 % (2-11); NRBC Pct Auto 0.2 /100WBC (0.0-0.2); Neutrophils Absolute Auto 6.5 x10*3/uL (2.0-8.3); Neutrophils Percent Auto 69.9 % (45-73); Platelet Count 408 X10*3/uL (160-400); Red Blood Count 3.81 X10*6/uL (4.20-5.50); Red Cell Distribution Width 20.8 % (11.0-16.0); White Blood Count 9.3 X10*3/uL (4.8-10.8)
== END 2024-08-04 11:18 | disposition home or self-care (01) ==
LOC: HO.LABR 11:17
PROVIDERS: PCP Internal Medicine; Visit Provider Clinical Nurse Specialist Psychiatric/Mental Health, Adult
DX: Z79.899 Other long term (current) drug therapy (principal)
CPT/HCPCS: 36415; 85025

== ENCOUNTER 2024-09-04 15:04 | Outpatient (REF) | payer MEDICAID, SELFPAY ==
[2024-09-04 15:30] LABS: MANUAL DIFF FLAG NO
[2024-09-04 15:45] LABS: Basophils Percent Auto 0.3 % (0-2); Eosinophils Absolute Auto 0.1 X10*3/uL (0.0-0.4); Eosinophils Percent Auto 0.8 % (0-4); Hematocrit 28.2 % (37.0-47.0); Imm Gran Pct Auto 0.9 % (0.0-0.4); Lymphocytes Absolute Auto 3.7 X10*3/uL (1.2-4.9); Lymphocytes Percent Auto 33.9 % (20-40); Mean Corpuscular HGB Conc 28.4 g/dl (31.0-35.0); Mean Corpuscular Hemoglobin 20.6 pg (27.0-33.0); Mean Corpuscular Volume 72.5 fL (80.0-98.0); Mean Platelet Volume 10.7 fL (9.4-12.3); Monocytes Absolute Auto 1.1 X10*3/uL (0.1-1.2); Monocytes Percent Auto 9.7 % (2-11); NRBC Pct Auto 0.6 /100WBC (0.0-0.2); Neutrophils Absolute Auto 5.9 x10*3/uL (2.0-8.3); Neutrophils Percent Auto 54.4 % (45-73); Platelet Count 438 X10*3/uL (160-400); Red Blood Count 3.89 X10*6/uL (4.20-5.50); Red Cell Distribution Width 20.4 % (11.0-16.0); White Blood Count 10.9 X10*3/uL (4.8-10.8)
== END 2024-09-04 15:05 | disposition home or self-care (01) ==
LOC: HO.LABR 15:04
PROVIDERS: PCP Internal Medicine; Visit Provider Clinical Nurse Specialist Psychiatric/Mental Health, Adult
DX: Z79.899 Other long term (current) drug therapy (principal)
CPT/HCPCS: 36415; 85025

== ENCOUNTER 2024-10-08 10:37 | Outpatient (REF) | payer MEDICAID, SELFPAY ==
[2024-10-08 10:57] LABS: MANUAL DIFF FLAG NO
[2024-10-08 11:06] LABS: Basophils Percent Auto 0.4 % (0-2); Eosinophils Absolute Auto 0.1 X10*3/uL (0.0-0.4); Eosinophils Percent Auto 1.6 % (0-4); Hematocrit 28.3 % (37.0-47.0); Hemoglobin 7.6 g/dl (12.0-16.0); Imm Gran Abs Auto 0.12 X10*3/uL (0.00-0.03); Imm Gran Pct Auto 1.3 % (0.0-0.4); Lymphocytes Percent Auto 22.5 % (20-40); Mean Corpuscular HGB Conc 26.9 g/dl (31.0-35.0); Mean Corpuscular Volume 70.9 fL (80.0-98.0); Mean Platelet Volume 10.4 fL (9.4-12.3); Monocytes Absolute Auto 0.7 X10*3/uL (0.1-1.2); Monocytes Percent Auto 7.6 % (2-11); NRBC Pct Auto 0.3 /100WBC (0.0-0.2); Neutrophils Absolute Auto 5.9 x10*3/uL (2.0-8.3); Neutrophils Percent Auto 66.6 % (45-73); Platelet Count 348 X10*3/uL (160-400); Red Blood Count 3.99 X10*6/uL (4.20-5.50); Red Cell Distribution Width 20.4 % (11.0-16.0); White Blood Count 8.9 X10*3/uL (4.8-10.8)
--- OUTSIDE RECORDS SUMMARY | 2024-10-08 11:14 | XMS_ITS | Encounter Summary ---
Author Organization [employer] Address [address] [place] [address] 7t [place] [address] Care Team Providers Care Computer Graphics Illustrator Name Role Phone Brenna Liriano MD Primary Care Provide r Encounter Details Date Type Department Care Team (Late Contact Info) Description 02/08/2023 Orders Only [facility] CH[facility] MED & PEDS [address] [place], [place] [phone] Enma Sparks LPN Social History Tobacco Use Types Packs/Day Years Used Date Smoking Tobacco: Never Smokeless Tobacco: Never Alcohol Use Standard Drinks/Week Comments Never 0 (1 standard drink = 0.6 oz pur e alcohol) Depression Answer Date Recorded Patient Health Questionnaire-2 Score 2 12/12/2022 Comments Unknown Sex and Gender Information Value Date Recorded Sex Assigned at Female 06/19/2022 10:14 AM EDT Legal Sex Female 10:14 AM EDT Gender Identity Female 06/19/2022 10:14 AM EDT Sexual Orientation Choose not to disclose 2021 10:14 AM EDT documented as of this encounter Plan of Treatment Upcoming Encounters Date Type Department Care Team (Late st Contact Info) Description 10/09/2024 10:00 AM EST Clinical Support [facility] MEDICINE [address] [place] [address] 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 RN documented as of this encounter Visit Diagnoses Not on filedocumented in this encounter Care Teams Computer Graphics Illustrator Relationship Specialty Start Date End Date Brenna Liriano MD [address] [place] [address] PCP - General Family Medicine 07/01/19 [facility] 06/26/24 documented as of this encounter
--- OUTSIDE RECORDS SUMMARY | 2024-10-08 11:14 | XMS_ITS | Encounter Summary ---
Author Organization [employer] Address [address] [facility] 7t [place] [address] Care Team Providers Care Medical Case Worker Name Role Phone Brenna Liriano MD Primary Care Provide r Reason for Visit * Reason Onset Date Comments Appointment Request 10/31/2023 Encounter Details Date Type Department Care Team ([facility] st Contact Info) Description 10/31/2023 Telephone [facility] MEDICINE [address] [place], [place] [phone] Brenna Liriano MD [address] [place], [place] [phone] Appointment Request Social History Tobacco Use Types Packs/Day Years Used Date Smoking Tobacco: Every Day Cigarettes Passive Smoke Exposure: Never Smokeless Tobacco: Never Alcohol Use Standard Drinks/Week Comments Never 0 (1 standard drink = 0.6 oz pur e alcohol) Housing Stability Answer Date Recorded What is your housing situation today? I have michael reynolds 06/12/[address] you li ve. Do you have problems with any of the following? None of the above 06/12/2023 Food Insecurity Answer Date Recorded Within the past 12 months, y ou worried that your food would run out before you got money to buy more: Never True 06/12/2023 Within the past 12 months,th e food you bought just didn't last and you didn't have enough money to get more: Never True Transportation Answer Date Recorded In the past 12 months, has l ack of transportation kept you from medical appts, meetings, work or from getting things needed for daily living? No 09/28/2023 Utilities Answer Date Recorded In the past 12 months, has t he electric, gas, oil or water company threatened to shut off services in your home? 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 worker calling to cancel the PAP appt on 11/06 and would like to reschedule documented in this encounter Plan of Treatment Upcoming Encounters Date Type Department Care Team (Late st Contact Info) Description 10/09/2024 10:00 AM EST Clinical Support [facility] MEDICINE [address] [place] [address] 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 RN documented as of this encounter Visit Diagnoses Not on filedocumented in this encounter Care Teams Medical Case Worker Relationship Specialty Start Date End Date Brenna Liriano MD [address] [place] [address] PCP - General Family Medicine 07/01/19 Ge[facility]anny A 06/26/24 documented as of this encounter
--- OUTSIDE RECORDS SUMMARY | 2024-10-08 11:14 | XMS_ITS | Encounter Summary ---
Author Organization [employer] [facility] Address [address] [place] [address] 7 [place] [address] Care Team Providers Care Section Hand Helper Name Role Phone Brenna Liriano MD Primary Care Provide r Encounter Details Date Type Department Care Team ([facility] Contact Info) Description 02/12/2023 Orders Only [facility] MEDICINE [address] [place] [address] [phone] Kristen Hernandez LPN Social History Tobacco Use Types Packs/Day [...] Encounters Date Type Department Care Team (Late Contact Info) Description 10/09/2024 10:00 AM EST Clinical Support [address] [phone] 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 RN documented as of this encounter Visit Diagnoses Not on filedocumented in this encounter Care Teams Section Hand Helper Relationship Specialty Start Date End Date Brenna Liriano MD [address] [place] [phone] PCP - General Family Medicine 07/01/19 Ge[facility] CHO 06/26/24 documented as of this encounter
--- OUTSIDE RECORDS SUMMARY | 2024-10-08 11:14 | XMS_ITS | Encounter Summary ---
Author Organization [employer] Address [address] [facility] 7t [place] [address] Care Team Providers Care Senior Systems Analyst Name Role Phone Brenna Liriano MD Primary Care Provide r Reason for Visit * Reason Comments Med Refill Encounter Details Date Type Department Care Team ([facility] st Contact Info) Description 07/24/2023 Refill [facility] CHC MED & PEDS [address] [place], [place] [phone] Brenna Liriano MD [address] [place] [address] Social History Tobacco Use Types Packs/Day Years Used Date Smoking Tobacco: Every Day Cigarettes Passive Smoke Exposure: Never Smokeless Tobacco: Never Alcohol Use Standard Drinks/Week Comments Never 0 (1 standard drink = 0.6 oz pur e alcohol) Housing Stability Answer Date Recorded What is your housing situation today? I have michael gail 06/12/[address] you li [...] from getting things needed for daily living? Yes, it has kept me from medical appointments or getting medications. 05/30/2023 Utilities Answer Date Recorded In the past [...] Description 10/09/2024 10:00 AM EST Clinical Support [facility] MEDICINE [address] [place] [address] 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 RN documented as of this encounter Visit Diagnoses Not on filedocumented in this encounter Care Teams Senior Systems Analyst Relationship Specialty Start Date End Date Brenna Liriano MD [address] [place] [address] PCP - General Family Medicine 07/01/19 [facility] 06/26/24 documented as of this encounter
--- OUTSIDE RECORDS SUMMARY | 2024-10-08 11:14 | XMS_ITS | Encounter Summary ---
Author Organization [employer] Address [address] [facility] 7t [place] [address] Care Team Providers Care Wood Die Maker Name Role Phone Brenna Liriano MD Primary Care Provide r Reason for Visit * Reason Comments Med Refill Encounter Details Date Type Department Care Team ([facility] st Contact Info) Description 09/14/2023 Refill [facility] MEDICINE [address] [place], [place] [phone] Brenna Liriano MD [address] [place], [place] [phone] Constipation, unspecified constipation type Social History Tobacco Use Types Packs/Day Years [...] 10:00 AM EST Clinical Support [facility] MEDICINE [address] [place] [phone] 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 RN documented as of this encounter Visit Diagnoses Diagnosis Constipation, unspecified constipation type documented in this encounter Care Teams Wood Die Maker Relationship Specialty Start Date End Date Brenna Liriano MD [address] [place] [phone] PCP - General Family Medicine 07/01/19 Geovanny Ji 06/26/24 documented as of this encounter
--- OUTSIDE RECORDS SUMMARY | 2024-10-08 11:14 | XMS_ITS | Encounter Summary ---
Author Organization [employer] Address [address] [facility] 7t [place] [address] Care Team Providers Care Supervisor Intelligence Analyst Name Role Phone Brenna Liriano MD Primary Care Provide r Reason for Visit * Reason Comments Med Refill Encounter Details Date Type Department Care Team ([facility] st Contact Info) Description 06/12/2023 Refill [facility] MEDICINE [address] [place], [place] [phone] Brenna Liriano MD [address] [place], [place] [phone] Constipation, unspecified constipation type Social History Tobacco Use Types Packs/Day Years Used Date Smoking Tobacco: Never Passive Smoke Exposure: Never Smokeless Tobacco: Never [...] Description 10/09/2024 10:00 AM EST Clinical Support [facility] MEDICINE [address] [place] [address] 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 RN documented as of this encounter Visit Diagnoses Diagnosis Constipation, unspecified constipation type documented in this encounter Care Teams Supervisor Intelligence Analyst Relationship Specialty Start Date End Date Brenna Liriano MD [address] [place] [address] PCP - General Family Medicine 07/01/19 Geovanny Ji 06/26/24 documented as of this encounter
--- OUTSIDE RECORDS SUMMARY | 2024-10-08 11:14 | XMS_ITS | Encounter Summary ---
Author Organization [employer] Address [address] [facility] 7t [place] [address] Care Team Providers Care Methods Specialist Name Role Phone Brenna Liriano MD Primary Care Provide r Reason for Visit * Reason Comments Med Refill Encounter Details Date Type Department Care Team ([facility] st Contact Info) Description 03/11/2024 Refill [facility] MEDICINE [address] [place], [place] [phone] Brenna Liriano MD [address] [place], [place] [phone] Asthma, unspecified asthma severity, unspecified whether complicated, unspecified whether persistent Social History Tobacco Use Types Packs/Day Years [...] Description 10/09/2024 10:00 AM EST Clinical Support [facility] MEDICINE [address] [place] [address] 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 RN documented as of this encounter Visit Diagnoses Diagnosis Asthma, unspecified asthma severity, unspecified whether complicated, unspecified whether persistent documented in this encounter Care Teams Methods Specialist Relationship Specialty Start Date End Date Brenna Liriano MD [address] [place] [address] PCP - General Family Medicine 07/01/19 [facility] 06/26/24 documented as of this encounter
--- OUTSIDE RECORDS SUMMARY | 2024-10-08 11:15 | XMS_ITS | Encounter Summary ---
Author Organization [employer] Address [address] [facility] 7t [place] [address] Care Team Providers Care Production Inspector Name Role Phone Brenna Liriano MD Primary Care Provide r Reason for Visit * Reason Comments Med Refill Encounter Details Date Type Department Care Team ([facility] st Contact Info) Description 09/30/2024 Refill [facility] MEDICINE [address] [place], [place] [phone] Brenna Liriano MD [address] [place], [place] [phone] Social History Tobacco Use Types Packs/Day Years Used Date Smoking Tobacco: Former Cigarettes Passive Smoke Exposure: Past Smokeless Tobacco: Never Alcohol Use Standard Drinks/Week [...] t he electric, gas, oil or water [email or web address] threatened to shut off services in your [...] Description 10/09/2024 10:00 AM EST Clinical Support [facility] MEDICINE [address] [place] [address] 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 RN documented as of this encounter Visit Diagnoses Not on filedocumented in this encounter Care Teams Production Inspector Relationship Specialty Start Date End Date Brenna Liriano MD [address] [place] [address] PCP - General Family Medicine 07/01/19 Ge[facility]anny A 06/26/24 documented as of this encounter
--- OUTSIDE RECORDS SUMMARY | 2024-10-08 11:15 | XMS_ITS | Encounter Summary ---
Author Organization [employer] Address [address] [facility] 7t [place] [address] Care Team Providers Care Chalk Molding Machine Operator Name Role Phone Brenna Liriano MD Primary Care Provide r Reason for Visit * Reason Comments Med Refill Encounter Details Date Type Department Care Team ([facility] st Contact Info) Description 09/30/2024 Refill [facility] MEDICINE [address] [place], [place] [phone] Brenna Liriano MD [address] [place], [place] [phone] Uncomplicated asthma, unspecified asthma severity, unspecified whether persistent Social History Tobacco Use [...] Description 10/09/2024 10:00 AM EST Clinical Support [facility] MEDICINE [address] [place] [phone] 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 RN documented as of this encounter Visit Diagnoses Diagnosis Uncomplicated asthma, unspecified asthma severity, unspecified whether persistent documented in this encounter Care Teams Chalk Molding Machine Operator Relationship Specialty Start Date End Date Brenna Liriano MD [address] [place] [phone] PCP - General Family Medicine 07/01/19 [facility] 06/26/24 documented as of this encounter
--- OUTSIDE RECORDS SUMMARY | 2024-10-08 11:15 | XMS_ITS | Encounter Summary ---
Author Organization [employer] Address [address] [place] [address] 7t [place] [address] Care Team Providers Care Optometry Professor Name Role Phone Brenna Liriano MD Primary Care Provide r Reason for Visit * Reason Onset Date Comments Hospital Follow-up 06/25/2024 Encounter Details Date Type Department Care Team ([facility] Contact Info) Description 06/25/2024 Telephone [facility] MEDICINE [address] [place], [place] [phone] Brenna Liriano MD [address] [place], [place] [phone] Hospital Follow-up Social History Tobacco Use Types Packs/Day Years [...] encounter Miscellaneous Notes * Telephone Encounter - Cindy Royal - 06/25/2024 1:02 PM EST Tc from pt requesting a HDF appt. Hospital: [facility] Date of admission: Asthma Discharge date: 06/18/24 Diagnosed: 06/24/24 *Send message to [place] Clinical Care Coordinators documented in this encounter Plan of Treatment Upcoming Encounters Date Type Department Care Team (Late st Contact Info) Description 10/09/2024 10:00 AM EST Clinical Support [facility] MEDICINE [address] [place] [address] 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 RN documented as of this encounter Visit Diagnoses Not on filedocumented in this encounter Care Teams Optometry Professor Relationship Specialty Start Date End Date Brenna Liriano MD [address] [place] [address] PCP - General Family Medicine [facility] documented as of this encounter
--- OUTSIDE RECORDS SUMMARY | 2024-10-08 11:15 | XMS_ITS | Encounter Summary ---
Author Organization [employer] Address [address] [facility] 7t [place] [address] Care Team Providers Care Editor & Co Founder Name Role Phone Brenna Liriano MD Primary Care Provide r Reason for Visit * Reason Onset Date Comments Med Refill 10/07/2024 Encounter Details Date Type Department Care Team ([facility] st Contact Info) Description 10/07/2024 Telephone [facility] MEDICINE [address] [place], [place] [phone] Brenna Liriano MD [address] [place], [place] [phone] Med Refill Social History Tobacco Use Types Packs/Day Years [...] encounter Miscellaneous Notes * Telephone Encounter - 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 RN - 10/07/2024 3:19 PM EST Per message from PCP today, no tramadol refill until [employer] initial visit completed. Spoke with patient today and pt Is scheduled for 10/09/24. * Telephone Encounter - Melchor Ortega - 10/07/2024 3:05 PM EST TC from pt requesting medication refill. Medications needing refill : traMADol (Ultram) 50 MG tablet To be sent to: [facility] - [place], [place] - [phone] - [place] - [address] documented in this encounter Plan of Treatment Upcoming Encounters Date Type Department Care Team (Late st Contact Info) Description 10/09/2024 10:00 AM EST Clinical Support [facility] MEDICINE [address] [place] [address] 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, RN documented as of this encounter Visit Diagnoses Not on filedocumented in this encounter Care Teams Editor & Co Founder Relationship Specialty Start Date End Date Brenna Liriano MD [address] [place] [address] PCP - General Family Medicine [facility] documented as of this encounter
--- OUTSIDE RECORDS SUMMARY | 2024-10-08 11:15 | XMS_ITS | Encounter Summary ---
Author Organization [employer] Address [address] [place] [address] Care Team Providers Care Electronic Scanner Operator Name Role Phone Brenna Liriano MD Primary Care Provide r Reason for Visit * Reason Onset Date Comments OCTOBER RECALL 09/18/2024 Encounter Details Date Type Department Care Team ([facility] st Contact Info) Description 09/18/2024 Telephone [facility] [address] [place], [place] [phone] Juanita Barragan MA OCTOBER RECALL Social History Tobacco Use Types Packs/Day Years Used Date Smoking Tobacco: Former Cigarettes Passive Smoke Exposure: Past Smokeless Tobacco: Never Alcohol Use Standard Drinks/Week Comments Never 0 (1 standard drink = 0.6 oz pur e alcohol) Housing Stability Answer Date Recorded What is your housing situation today? I have michaelrene reynolds 06/12/[address] you [...] encounter Miscellaneous Notes * Telephone Encounter - Juanita Barragan MA - 09/18/2024 1:38 PM EST TC- Patient to schedule an appt (October) with F\U number has been restricted. Mailed recall letter. documented in this encounter Plan of Treatment Upcoming Encounters Date Type Department Care Team (Late st Contact Info) Description 10/09/2024 10:00 AM EST Clinical Support [facility] [address] [place] [address] 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, GUILLE documented as of this encounter Visit Diagnoses Not on filedocumented in this encounter Care Teams Electronic Scanner Operator Relationship Specialty Start Date End Date Brenna Liriano MD [address] [place] [address] PCP - General Family Medicine 07/01/19 [facility] 06/26/24 documented as of this encounter
--- OUTSIDE RECORDS SUMMARY | 2024-10-08 11:15 | XMS_ITS | Encounter Summary ---
Author Organization [employer] Address [address] [place] [address] [address] [place] [address] Care Team Providers Care Analyst [employer] Name Role Phone Brenna Liriano MD Primary Care Provide r Reason for Visit * Reason Onset Date Comments Med Refill Reschedule [facility]S [facility]AMINER Initial appt - 3rd attempt 2024 Encounter Details Date Type Department Care Team (Late st Contact Info) Description 10/03/2024 Refill [facility] [address] [place] [address] Brenna Liriano MD [address] [place] [address] Primary osteoarthritis of both knees; Chronic bilateral low back pain without sciatica Social History Tobacco Use Types Packs/Day Years [...] Encounter - 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 RN - 10/07/2024 12:32 PM EST Received the following message from PCP today: Please let patient know refill will not be done until she comes to HOME [facility] CLAIMS [facility]AMINER appointment thank you. TC via [id number], HOME OFFICE CLAIMS EXAMINER Initial appt X 3 scheduled for 10/09/24 @ 10am. Pt stated she will be coming with [facility]. * Telephone Encounter - Brenna Brower MD - 10/07/2024 11:47 AM EST Please let patient know refill will not be done until she comes to HOME OFFICE CLAIMS EXAMINER appointment thank you documented in this encounter Plan of Treatment Upcoming Encounters Date Type Department Care Team (Late st Contact Info) Description 10/09/2024 10:00 AM EST Clinical Support [facility] [address] [place] [address] 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 RN documented as of this encounter Visit Diagnoses Diagnosis Primary osteoarthritis of both knees Chronic bilateral low back pain without sciatica documented in this encounter Care Teams Analyst [employer] Relationship Specialty Start Date End Date Brenna Liriano MD [address] [place] [address] PCP - General Family Medicine 07/01/19 [facility] 06/26/24 documented as of this encounter
--- OUTSIDE RECORDS SUMMARY | 2024-10-08 11:15 | XMS_ITS | Clinical Summary ---
Author Organization [employer] Address [address] [place] [address] [address] [place] [address] Care Team Providers Care Apparel Designer Name Role Phone Brenna Liriano MD Primary Care Provide r Allergies Active Allergy Reactions Criticality Noted Date Comments Amoxicillin 11/01/2010 Other reaction(s): unspecified Diazepam 03/12/2020 Haloperidol 11/01/2010 Other reaction(s): unspecified Penicillin V 11/01/2010 Other reaction(s): unspecified Risperidone 11/01/2010 Other reaction(s): unspecified Medications clonazePAM (KlonoPIN) 0.5 MG tablet Take 0.5 mg by mouth in the morning. 02/08/20 23 Active clonazePAM (KlonoPIN) 1 MG tablet Take 1 mg by mouth at bedtime. 01/30/20 23 Active cloZAPine (Clozaril) 100 MG tablet Take 3 tablets by mouth at bedtime. TDD 325 mg at bedtime and 50 mg qam 01/26/20 23 Active cloZAPine (Clozaril) 25 MG tablet Take 1 tablet by mouth at bedtime. TD 325 mg at bedtime + 50 mg in the morning 11/28/19 23 Active Flovent HFA 110 MCG/ACT inhaler inhale 2 puff by inhalation route 2 times every day 36 g 1 02/29/20 23 Active fluticasone (Flonase) 50 MCG/ACT nasal spray SPRAY 2 SPRAYS INTO EACH NOSTRIL EVERY MORNING 48 g 04/17/20 23 Active dilTIAZem CD (Cardizem CD) 120 MG 24 hr capsule Take 1 capsule by mouth 1 (one) time each day. 06/18/20 23 Active cloZAPine (Clozaril) 50 MG tablet Take 1 tablet by mouth in the morning. 06/13/20 23 Active divalproex (Depakote ER) 250 MG 24 hr tablet Take 1,250 mg by mouth at bedtime. Do not crush, chew, or split. Active FLUoxetine (PROzac) 10 MG capsule Take 3 capsules by mouth 1 (one) time each day. Active capsaicin (Zostrix) 0.025 % cream Apply topically if needed in the morning, at noon, in the evening, and at bedtime. Active atorvastatin (Lipitor) 40 MG tabletIndicatio ns:Essential hypertension Take 1 tablet (40 mg) by mouth in the morning. 30 tablet 11 10/09/19 24 Active polyethylene glycol, PEG, 3350 (Miralax) 17 g packet MIX 1 PACKET WITH 8 OUNCES OF WATER OR JUICE AND DRINK THREE TIMES DAILY EVERY DAY NEEDED 90 each 2 12/13/19 24 Active docusate sodium (Colace) 100 MG capsule TAKE 1 CAPSULE BY MOUTH two (2) times a day NEEDED 180 capsule 3 01/09/20 24 Active albuterol (2.5 MG/3ML) 0.083% nebulizer solution Take 3 mL (2.5 mg) by nebulization every 6 (six) hours if needed for wheezing. USE 1 VIAL VIA NEBULIZER EVERY 4 HOURS NEEDED FOR WHEEZING OR SHORTNESS OF BREATH 90 mL 1 06/25/20 24 Active Mometasone Furoate (Asmanex HFA) 100 MCG/ACT aerosol Inhale 1 Act (100 mcg) 2 times daily. inhale 2 puff by inhalation route 2 times every day 13 g 3 06/25/20 24 Active lactulose (Chronulac) 10 GM/15ML solutionIndicat ions:Chronic constipation TAKE 45 ML BY MOUTH IN THE MORNING DIRECTED 473 mL 1 07/01/20 24 Active senna (Senokot) 8.6 MG tabletIndicatio ns:Constipation , unspecified constipation type TAKE 2 TABLETS BY MOUTH AT BEDTIME NEEDED FOR CONSTIPATION 60 tablet 5 07/01/20 24 Active metFORMIN XR (Glucophage-XR) 500 MG 24 hr tablet TAKE 1 TABLET BY MOUTH two (2) times a day WITH MEALS 60 tablet 5 07/01/20 24 Active loratadine (Claritin) 10 MG tablet TAKE 1 TABLET BY MOUTH ONCE DAILY 30 tablet 5 07/01/20 24 Active nicotine (Nicoderm, Step 1) 21 MG/24HR patch Place 1 patch on the skin 1 (one) time each day at the same time. 06/24/20 24 Active albuterol (Ventolin HFA) 108 (90 Base) MCG/ACT inhalerIndicati ons:Asthma, unspecified asthma severity, unspecified whether complicated, unspecified whether persistent INHALE 2 PUFFS BY MOUTH INTO THE lungs EVERY 4 TO 6 HOURS NEEDED 18 g 2 09/02/19 25 Active sucralfate (Carafate) 1 g tablet TAKE 1 TABLET BY MOUTH 3 (THREE) TIMES A DAY 90 tablet 1 09/03/19 25 Active omeprazole (PriLOSEC) [address] capsuleIndicati ons:Gastroesoph ageal reflux disease, unspecified whether esophagitis present TAKE 1 CAPSULE BY MOUTH two (2) times a day BEFORE MEALS 60 capsule 5 09/03/19 25 Active lisinopril 10 MG tablet TAKE 1 CAPSULE BY MOUTH IN THE EVENING 90 tablet 1 09/30/19 25 Active montelukast (Singulair) 10 MG tabletIndicatio ns:Uncomplicate d asthma, unspecified asthma severity, unspecified whether persistent TAKE 1 TABLET BY MOUTH IN THE MORNING 90 tablet 1 10/01/19 25 Active lisinopril 10 MG tablet TAKE 1 TABLET BY MOUTH EVERY EVENING 90 tablet 1 02/13/20 24 2024 Discontinued montelukast (Singulair) 10 MG tabletIndicatio ns:Uncomplicate d asthma, unspecified asthma severity, unspecified whether persistent TAKE 1 TABLET BY MOUTH IN THE MORNING 30 tablet 1 07/01/20 24 2024 Discontinued Active Problems Problem Noted Date Diagnosed Date Chronic bilateral low back pain without sciatica 07/15/2024 Chronic respiratory failure with hypoxia 024 Assessment & Plan (07/15/2024 5:04 PM EST): C/w current interventions Iron deficiency anemia due to chronic blood loss 07/15/2024 Assessment & Plan (07/15/2024 5:05 PM EST): CBC ordered for monitoring 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 FU w/ P. Magi, see him to make an appointment Continue clozapine 325 qhs + 50mg qAM, Fluoxetine 30 mg/daily, Divalproex 1250 qHS, Klonopin 0.5 mg qAM + 1 mg qHS Cont medicating administration Tachycardia 11/02/2022 Assessment & Plan (01/02/2023 2:10 PM EDT): I have notice persistent sinus tachycardia I will refer patient to cardiology Urinary incontinence 11/02/2022 Moderate chronic obstructive pulmonary disease 0 12/11/2018 Assessment & Plan (07/10/2023 12:22 PM EST): Pt should be using Flovent BID, CM will FU with foster family regarding compliance Continue Albuterol prn PCV 20 today, decline Covid IZ FU w/ PCP in 2 month Restrictive lung disease 12/11/2018 Anxiety 11/27/2018 Onychomycosis 04/02/2018 Tinea pedis 05/10/2016 Mild persistent asthma 06/04/2015 Primary osteoarthritis of both knees 06/04/2015 Assessment & Plan (07/15/2024 5:05 PM EST): Patient will be now on tramadol 50m Q 12hrs Patient will be contacted by [facility] nurse Tobacco dependence syndrome 06/04/2015 Microalbuminuria 06/23/2014 Chronic constipation 02/27/2012 Assessment & Plan (01/02/2023 2:10 PM EDT): Increase water and fiber on her diet Medications prescribed Referral to GI Chronic schizoaffective schizophrenia 02/27/2012 Assessment & Plan (10/12/2023 6:30 PM EST): Continue to follow with psychiatrist and therapist Essential hypertension 02/27/2012 Assessment & Plan (10/12/2023 6:28 PM EST): Maintenance: BMP: up to date Lipid Panel: up to date ASCVD Risk: atorvastatin 40mg daily - Aerobic exercise to reduce BP. Initial goal of 30 min walk 3-5x/week. Increase as tolerated. - low-sodium diet (goal: <2g/day) and heart healthy diet such as DASH to reduce BP and prevent ASCVD. - Home BP monitoring 1-2 x day with goal of <140/90. - Seek immediate medical attention for chest pain, palpitations, SOB, syncope, or sudden changes in mental status. - Do not change or discontinue current prescriptions without first consulting health care provider Assessment & Plan (01/02/2023 2:10 PM EDT): Stable continue with interventions Assessment & Plan (12/12/2022 3:43 PM EDT): - Aerobic exercise to reduce BP. Initial goal of 30 min walk 3-5x/week. Increase as tolerated. - low-sodium diet (goal: <2g/day) and heart healthy diet such as DASH to reduce BP and prevent ASCVD. - Home BP monitoring 1-2 x day with goal of <140/90. - Seek immediate medical attention for chest pain, palpitations, SOB, syncope, or sudden changes in mental status. - Do not change or discontinue current prescriptions without first consulting health care provider Obesity 02/27/2012 Type 2 diabetes mellitus wit h hyperglycemia, without long-term current use of insulin 02/27/2012 Assessment & Plan (10/12/2023 6:30 PM EST): Diabetes is: controlled - Lab Results Component Value Date HGBA1C 6.0 10/09/2023 HGBA1C 5.8 12/12/2022 - Lab Results Component Value Date CREATININE 0.65 06/18/2023 -Changes: none - Diabetic eye exam:patient has an appointment - Diabetic foot exam:up to date - Continue lifestyle modifications - Continue current medications - Follow up: 3 months Assessment & Plan (07/10/2023 12:30 PM EST): Seems to be controlled Continue Metformin BID and FU with PCP Discussed w/ Pt and CM about Sx of hypoglycemia that can be a responsible for tachycardia Assessment & Plan (01/02/2023 2:11 PM EDT): Stable continue with interventions Assessment & Plan (12/12/2022 3:42 PM EDT): - Lab Results Component Value Date CREATININE 0.58 11/12/2022 - Continue lifestyle modifications - Continue current medications Resolved Problems Problem Noted Date Diagnosed Date Resolved Date Epigastric pain 12/12/2022 12/12/2022 Assessment & Plan (12/12/2022 3:43 PM EDT): C/w omeprazole 20mg BID -c/w bentyl PRN C/w zofran and sucralfate h pylori test Acute abdomen 12/12/2022 02/16/2023 Assessment & Plan (12/12/2022 3:45 PM EDT): I decided to refer patient to emergency department for further evaluation, case presented [facility], patient will go by ambulance Acute upper respiratory infection 11/02/2022 02/16/2023 Mild intermittent asthma 04/02/2018 Obesity (BMI 30-39.9) 04/02/20182022 Schizoaffective disorder, bipolar type 03/13/2017 02/16/2023 Primary osteoarthritis of left knee 01/30/2017 02/16/2023 Encounters Date Type Department Care Team Description 10/07/2024 Telephone [facility] [address] [place] [address] Brenna Liriano MD Med Refill 10/03/2024 Refill [facility] [address] [place] [address] Brenna Liriano MD Primary osteoarthritis of both knees; Chronic bilateral low back pain without sciatica 09/30/2024 Refill [facility] [address] [facility] [place] [address] Brenna Liriano MD Uncomplicated asthma, unspecified asthma severity, unspecified whether persistent 09/30/2024 Refill [facility] [address] [facility] [place] [address] Brenna Liriano MD 09/18/2024 Telephone [facility] [address] [facility] [place] [address] Juanita Barragan MA OCTOBER RECALL 09/02/2024 Refill [facility] [address] [facility] [place] [address] Brenna Liriano MD Gastroesophageal reflux disease, unspecified whether esophagitis present 09/01/2024 Refill [facility] [address] [place] [address] Brenna Liriano MD Asthma, unspecified asthma severity, unspecified whether complicated, unspecified whether persistent 08/14/2024 Telephone [facility] [address] [place] [address] Juanita Barragan MA SEP RECALL 07/21/2024 Orders Only GENERIC EXTERNAL DATA DEPARTMENT Provider, Generic External Data 07/15/2024 1:15 PM EST Office Visit [facility] [address] [facility] [place] [address] Brenna Liriano MD Primary osteoarthritis of both knees (Primary Dx); Type 2 diabetes mellitus with hyperglycemia, without long-term current use of insulin (CMS/HCC); Chronic bilateral low back pain without sciatica; Chronic respiratory failure with hypoxia (CMS/HCC); Iron deficiency anemia due to chronic blood loss; Acquired arteriovenous malformation of gastrointestinal tract; Metabolic encephalopathy 07/15/2024 Travel from Last 3 Months Immunizations Name Administration Dates Next Due Hep B, adult 06/22/2014,03/29/2012,02/27/2012 Influenza injectable quadriv alent preservative free 06/01/2023,06/21/2022,07/11/2021,06/26,08/11/2019 Influenza, IIV3, injectable 06/22/2014 Influenza, Split (incl. naty fied surface antigen) 06/30/2013,06/07/2012 Moderna Covid-19 Vaccine 12+ 01/30/2022 Pneumococcal Conjugate PCV 20 07/10/2023 Pneumococcal Polysaccharide PPSV23 12/16/2010 TD (adult), 2 Lf tetanus tox oid, preservative free, adsorbed 06/21/2022,11/27/2005,02/05/1996 Tdap 12/16/2010 Social History Tobacco Use Types Packs/Day Years Used Date Smoking Tobacco: Former Cigarettes Passive Smoke Exposure: Past Smokeless Tobacco: Never Tobacco Cessation:Counseling Given: Not Answered Alcohol Use Standard Drinks/Week Comments Never 0 [...] not to disclose 2021 10:14 AM EDT Last Filed Vital Signs Vital Sign Reading Time Taken Comments Blood Pressure 116/57 07/15/2024 1:30 PM EST Pulse 101 07/15/2024 1:30 PM EST Temperature 36.7 ??C (98 ??F) 07/15/2024 1:30 PM EST Respiratory Rate 16 07/15/2024 1:30 PM EST Oxygen Saturation 98% 07/15/2024 1:30 PM EST Inhaled Oxygen Concentration - - Weight 84.4 kg (186 lb) 10/09/2023 2:04 PM EST Height 157.5 cm (5' 2 ) 07/15/2024 1:30 PM EST Body Mass Index 34.02 10/09/2023 2:04 PM EST Plan of Treatment Upcoming Encounters Date Type Department Care Team (Late st Contact Info) Description 10/09/2024 10:00 AM EST Clinical Support [facility] [address] [place] [phone] 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, RN Health Maintenance Due Date Last Done Comments CT Colonography 1965 Colonoscopy 1965 Colorectal Cancer Screening 1965 FIT DNA/Cologuard 1965 FIT 1965 FOBT 1965 HIV Screening 1965 Sigmoidoscopy 1965 Diabetes: Foot Exam 1975 Eye Exam 1975 Alcohol/Substance Use Screening 1977 Hepatitis C Screening 1983 Diabetes: Urine Protein Screening 1984 Hepatitis A Vaccines (1 of 2 - Risk 2-dose series) 1984 Pap Smear 1986 Zoster Vaccines (1 of 2) 2015 Cervical Cancer Screening 03/21/2022 HPV/Cotest 03/21/2022 03/21/2017 Depression Screening 12/13/2023 12/12/2022, 12/13/19 23 COVID-19 Vaccine ( season) 2024 01/30/2022, 01/26/2021, 12/23/2020 Influenza Vaccine (#1) 2024 , 06/21/2022, 07/11/2021, Additional history exists Lipid Panel 08/08/2024 08/08/2023 SDOH Screening 09/28/2024 09/28/2023 Diabetes: Hemoglobin A1C 10/15/2024 024, 10/09/2023, 12/12/2022 Mammogram 05/01/2025 05/01/2024, 09/0 12/2022, 04/14/2022, Additional history exists Tobacco Screening 07/15/2025 07/15/2024 DTaP/Tdap/Td Vaccines (3 - Td or Tdap) 06/21/2032 06/21/2022, 12/16/2010, 11/27/2005, Additional history exists RSV Patients and Patients Aged 60 years or older (1 - 1-dose 75+ series) 2040 Hepatitis B Vaccines Completed 06/22/2014, 03/29/2012, 02/27/2012 Pneumococcal Vaccine: 50+ Years Completed 07/10/2023, 12/16/2010 HIB Vaccines Aged Out No longer eligi ble based on patient's age to complete this topic HPV Vaccines Aged Out No longer eligi ble based on patient's age to complete this topic IPV Vaccines Aged Out No longer eligi ble based on patient's age to complete this topic Meningococcal Vaccine Aged Out No lenny ankur eligible based on patient's age to complete this topic RSV under 20 months Aged Out No longe r eligible based on patient's age to complete this topic Rotavirus Vaccines Aged Out No longer eligible based on patient's age to complete this topic Procedures Procedure Name Priority Date/Time Associated Diagnosis Comments FACTOR XI ACTIVITY, CLOTTING Routine 07/21/2024 2:41 PM EST VON WILLEBRAND DISEASE PANEL WITHOUT COLLAGEN BINDING ASSAY (CBA) Routine 07/21/2024 2:41 PM EST VON WILLEBRAND ANTIGEN, MULTIMERIC Routine 07/21/2024 2:41 PM EST VON WILLEBRAND FACTOR ANTIGEN Routine 07/21/2024 2:41 PM EST FACTOR 8 ACTIVITY Routine 07/21/2024 2:4 1 PM EST MIXING STUDY Routine 07/21/2024 2:41 PM EST FACTOR 7 ACTIVITY Routine 07/21/2024 2:4 1 PM EST FACTOR IX ACTIVITY, CLOTTING Routine 07/21/2024 2:41 PM EST FERRITIN Routine 07/21/2024 2:41 PM EST COMPREHENSIVE METABOLIC PANEL Routine 07/21/2024 2:41 PM EST AMMONIA (P) Routine 07/21/2024 2:41 PM EST APTT Routine 07/21/2024 2:41 PM EST PROTHROMBIN TIME-INR Routine 07/21/2024 2:41 PM EST CBC WITH AUTO DIFFERENTIAL Routine 07/21/2024 2:41 PM EST Chronic respiratory failure with hypoxia (CMS/HCC) POCT GLYCATED HEMOGLOBIN, TOTAL Routine 07/15/2024 1:36 PM EST Type 2 diabetes mellitus with hyperglycemia, without long-term current use of insulin (CMS/HCC) POCT GLUCOSE Routine 07/15/2024 1:36 PM EST Type 2 diabetes mellitus with hyperglycemia, without long-term current use of insulin (CMS/HCC) BI MAMMOGRAM SCREENING TOMOSYNTHESIS BILATERAL Routine 05/01/2024 3:00 PM EDT LIPID PANEL WITH REFLEX TO DIRECT LDL Routine 08/08/2023 11:13 AM EST Tachycardia ZZZ HISTORICAL HPV MRNA E6/E7 Routine 03/21/2017 12:00 AM EDT from Last 3 Months or Most Recently Relevant to Health Maintenance Results * von Willebrand Factor Antigen (07/21/2024 2:41 PM EST) Von Willebrand Factor Antigen 127 50 - 217 % [facility] 07/21/2024 2:41 PM EST 07/21/2024 2:41 PM EST Generic External Data Provider LAB BLOOD ORDERAB LES Final Result Performing Organization Address [facility] Co de Phone Number [facility] [address] [place] [phone] * von Willebrand Disease Panel without Collagen Binding Assay (CBA) (07/21/2024 2:41 PM EST) Pathologist [facility] Factor VIII Activity, Clotting [facility] Comment:DUPLICATE Partial Thromboplastin Time, Activated 30 23 - 32 sec [facility] Comment:This test has not be en validated for monitoringunfractionated heparin therapy. For testing thatis validated for this type of therapy, please referto the Heparin Anti-Xa assay (test code 71094).For additional information, please refer tohttp://education.Vision Source/faq/UDI298(This link is being provided for informational/educational purposes only.) Von Willebrand Factor Antigen [facility] Comment:DUPLICATE Von Willebrand Ag, Multimeric [facility] Comment:DUPLICATE Comment see note [facility] Comment:Normal von Willebran d Evaluation Ristocetin Cofactor 124 42 - 200 % normal [facility] 07/21/2024 2:41 PM EST 07/21/2024 2:41 PM EST Generic External Data Provider LAB BLOOD ORDERAB LES Final Result Performing Organization Address [facility] Co de Phone Number [facility] [address] [place] [phone] * (ABNORMAL) CBC auto differential (07/21/2024 2:41 PM EST) Pathologist [facility] White Blood Count 8.7 4.8 - 10.8 X10*3/uL [facility] Red Blood Count 4.31 4.20 - 5.50 X10*6/uL [facility] Hemoglobin 9.4(L) 12.0 - 16.0 g/dl [facility] Hematocrit 32.2(L) 37.0 - 47.0 % [facility] Mean Corpuscular Volume 74.7(L) 80.0 - 98.0 fL [facility] Mean Corpuscular Hemoglobin 21.8(L) 27.0 - 33.0 pg [facility] Mean Corpuscular HGB Conc 29.2(L) 31.0 - 35.0 g/dl [facility] Red Cell Distribution Width 21.2(H) 11.0 - 16.0 % [facility] Platelet Count 380 160 - 400 X10*3/uL [facility] Mean Platelet Volume 10.9 9.4 - 12.3 fL [facility] Neutrophils Percent Auto 68.3 45 - 73 % [facility] Imm Gran Pct Auto 0.3 0.0 - 0.4 % [facility] Lymphocytes Percent Auto 22.3 20 - 40 % [facility] Monocytes Percent Auto 8.0 2 - 11 % [facility] Eosinophils Percent Auto 0.9 0 - 4 % [facility] Basophils Percent Auto 0.2 0 - 2 % [facility] NRBC Pct Auto 0.0 0.0 - 0.2 /100WBC [facility] Neutrophils Absolute Auto 6.0 2.0 - 8.3 x10*3/uL [facility] Imm Gran Abs Auto 0.03 0.00 - 0.03 X10*3/uL [facility] Lymphocytes Absolute Auto 2.0 1.2 - 4.9 X10*3/uL [facility] Monocytes Absolute Auto 0.7 0.1 - 1.2 X10*3/uL [facility] Eosinophils Absolute Auto 0.1 0.0 - 0.4 X10*3/uL [facility] Basophils Absolute Auto 0.0 0.0 - 0.2 X10*3/uL [facility] NRBC Abs Auto 0.000 0.0 - 0.012 X10*3/uL [facility] Blood Venous blood specimen / Unknown 07/21/2024 2:41 PM EST 07/21/2024 2:41 PM EST us Brenna Brower MD LAB BLOOD ORDERABLES Final Result Performing Organization Address [facility]/ZIP Co de Phone Number [facility] [address] [place] [phone] * von Willebrand Antigen, Multimeric (07/21/2024 2:41 PM EST) Von Willebrand Ag, Multimeric see note [facility] Comment:Normal distribution of von Willebrand Factor antigenmultimers.von Willebrand Factor multimer reviewed by: Giovanna Childers, Ph.D.This test was developed and its analytical performancecharacteristics have been determined by [place]. It hasnot been cleared or approved by the U.S. Food and DrugAdministration. This assay has been validated pursuantto the CLIA regulations and is used for clinicalpurposes.THIS TEST WAS PERFORMED AT:[employer] [id number] [place] [id number] DINH MD,PHD 07/21/2024 2:41 PM EST 07/21/2024 2:41 PM EST us Generic External Data Provider LAB BLOOD ORDERAB LES Final Result Performing Organization Address [facility] Co de Phone Number [facility] [address] [place] [phone] * (ABNORMAL) Mixing Study (07/21/2024 2:41 PM EST) Prothrombin Time 11.3 9.0 - 11.5 sec [facility] Comment:For additional infor mation, please refer tohttp://education.BarBird/faq/REC341(This link is being provided for informational/educationalpurposes only.)THIS TEST WAS PERFORMED AT:[employer] [id number] [place] [id number] GONG MD,PHD,BEATRICE Pt Mix TNP [facility] Ptt La 44(A) < OR = 40 sec [facility] Comment:THIS TEST WAS PERFOR MED AT:[employer] [id number] [place] [id number] GONG MD,PHD,BEATRICE PTT-LA Mix NOT CORRECTED [facility] Comment:THIS TEST WAS PERFOR MED AT:[employer] [id number] [place] [id number] GONG MD,PHD,BEATRICE Incubated Ptt La Mix TNP [facility] Mixing Study Interpretation SEE NOTE [facility] Comment:Results are consiste nt with an immediate acting inhibitor.Possibilities include specific factor inhibitors, LupusAnticoagulant, Fibrino(misa)lysis, heparin contamination orthrombin inhibitors. 07/21/2024 2:41 PM EST 07/21/2024 2:41 PM EST Generic External Data Provider LAB BLOOD ORDERAB LES Final Result Performing Organization Address [facility] Co de Phone Number [facility] [address] [place] [phone] * (ABNORMAL) Partial Thromboplastin Time, Activated (APTT) (07/21/2024 2:41 PM EST) Partial Thromboplastin Time 44.4(H) 26.0 - 36.8 SEC [facility] Comment:For information rega rding the monitoring of direct thrombininhibitors, please refer to Pharmacy. 07/21/2024 2:41 PM EST 07/21/2024 2:41 PM EST us Generic External Data Provider LAB BLOOD ORDERAB LES Final Result Performing Organization Address [facility]/ZIP Co de Phone Number [facility] [address] [place] [phone] * Prothrombin Time-INR (07/21/2024 2:41 PM EST) Prothrombin Time 11.1 10.9 - 12.4 SEC [facility] INTERNATIONAL NORM RATIO 1.0 0.9 - 1.1 [facility] Comment:INTERNATIONAL NORMAL IZED RATIO (INR) REFERENCE RANGES Reference RangeFor patients not on anticoagulant therapy: 0.9 - 1.1INR ranges for oral anticoagulanttherapy:For prevention and treatment of venous thrombosis and pulmonary embolism: 2.0 - 3.0For acute myocardial infarction with aspirin therapy: 2.0 - 3.0For acute myocardial infarction without aspirin therapy: 3.0 - 4.0For patients with mechanical prosthetic heart valves: 2.5 - 3.5 07/21/2024 2:41 PM EST 07/21/2024 2:41 PM EST Generic External Data Provider LAB BLOOD ORDERAB LES Final Result Performing Organization Address [facility] Co de Phone Number [facility] [address] [place] [phone] * Factor XI Activity, Clotting (07/21/2024 2:41 PM EST) Factor XI Activity, Clotting 124 65 - 150 % [facility] Comment:Units: % of normalTH IS TEST WAS PERFORMED AT:Mbite/[email or web address] [place] [address]GGTQEXAELISEO DINH MD,PHD 07/21/2024 2:41 PM EST 07/21/2024 2:41 PM EST Generic External Data Provider LAB BLOOD ORDERAB LES Final Result Performing Organization Address [facility]/ZIP Co de Phone Number [facility] [address] [place] [phone] * Factor IX Activity, Clotting (07/21/2024 2:41 PM EST) Factor IX Activity, Clotting 113 60 - 160 % normal [facility] Comment:THIS TEST WAS PERFOR MED AT:[employer]/[email or web address] [place] [address]WVMBKLFELISEO DINH MD,PHD 07/21/2024 2:41 PM EST 07/21/2024 2:41 PM EST us Generic External Data Provider LAB BLOOD ORDERAB LES Final Result Performing Organization Address [facility]/ZIP Co de Phone Number [facility] [address] [place] [phone] * Factor 8 activity (07/21/2024 2:41 PM EST) Factor VIII Activity, Clotting 136 50 - 180 % normal [facility] Comment:For additional infor mation please refer to:http://education.BarBird/faq/IHR741(This link is being provided for informational/educational purposes only.) 07/21/2024 2:41 PM EST 07/21/2024 2:41 PM EST us Generic External Data Provider LAB BLOOD ORDERAB LES Final Result Performing Organization Address [facility] Phone Number [facility] [address] [place] [phone] * Factor 7 activity (07/21/2024 2:41 PM EST) Factor VIII Activity, Clotting 134 60 - 150 % normal [facility] Comment:THIS TEST WAS PERFOR MED AT:[employer]/CHANEL [id number] [place] [address]DBDAEUTELISEO DINH MD,PHD 07/21/2024 2:41 PM EST 07/21/2024 2:41 PM EST us Generic External Data Provider LAB BLOOD ORDERAB LES Final Result Performing Organization Address [facility] Co de Phone Number [facility] [address] [place] [phone] * Ferritin (07/21/2024 2:41 PM EST) Ferritin 15 10 - 250 ng/mL [facility] 07/21/2024 2:41 PM EST 07/21/2024 2:41 PM EST Generic External Data Provider LAB BLOOD ORDERAB LES Final Result Performing Organization Address [facility] Co de Phone Number [facility] [address] [place] [phone] * Ammonia, Plasma (07/21/2024 2:41 PM EST) Pathologist [facility] Ammonia (P) 37 13 - 55 umol/L [facility] 07/21/2024 2:41 PM EST 07/21/2024 2:41 PM EST Generic External Data Provider LAB BLOOD ORDERAB LES Final Result Performing Organization Address [facility] de Phone Number [facility] [address] [place] [phone] * Comprehensive Metabolic Panel (07/21/2024 2:41 PM EST) Pathologist [facility] Sodium 141 135 - 145 mmol/L [facility] Potassium 4.7 3.3 - 5.1 mmol/L [facility] Comment:Slight Hemolysis.Int erpret result with caution. Chloride 102 96 - 108 mmol/L [facility] Carbon Dioxide 27 22 - 29 mmol/L [facility] Anion Gap 17 12 - 20 [facility] Urea Nitrogen (BUN) 11 9 - 16 mg/dL [facility] Creatinine, Serum 0.57 0.5 - 1.4 mg/dL [facility] Estimated Glomerular Filt Rate >60 [facility] Comment:Chronic Kidney Disea se: Estimated GFR < 60 mL/min/1.96t1Elnejm Kidney Disease: Estimated GFR < 15 mL/min/1.73m2 Glucose 98 60 - 115 mg/dL [facility] Calcium 9.6 8.4 - 10.2 mg/dL [facility] Bilirubin, Total 0.3 0.0 - 1.0 mg/dL [facility] Aspartate Amino Transferase 21 5 - 31 U/L [facility] Comment:Slight Hemolysis.Int erpret result with caution. Alanine Aminotransferase 11 0 - 31 U/L [facility] Total Protein 7.2 6.5 - 8.0 g/dL [facility] Albumin Level 4.0 3.5 - 5.0 g/dL [facility] Alkaline Phosphatase 86 39 - 117 U/L [facility] 07/21/2024 2:41 PM EST 07/21/2024 2:41 PM EST Generic External Data Provider LAB BLOOD ORDERAB LES Final Result Performing Organization Address City/State/[facility] Co de Phone Number [facility] [address] [place] [phone] * (ABNORMAL) POCT HGB A1C (07/15/2024 1:36 PM EST) Hemoglobin A1C 6.0 4.0 - 6.0 % QC Media Lot # [id number] Lot# Expiration Date [id number] Blood 07/15/2024 1:36 PM EST Brenna Brower MD POINT OF CARE TEST EN TER/EDIT ORDERABLES Final Result * POCT Glucose (07/15/2024 1:36 PM EST) Glucose Blood, POC 134 60 - 200 mg/dL QC Media Lot # [id number] Lot# Expiration Date [id number] Blood Capillary blood specimen / Unknown 07/15/2024 1:36 PM EST Brenna Brower MD POINT OF CARE TEST EN TER/EDIT ORDERABLES Final Result * BI Mammogram Screening Tomosynthesis Bilateral (05/01/2024 3:00 PM EDT) Anatomical Region Laterality Modality Breast Bilateral Mammography 05/01/2024 3:00 PM EDT Narrative 05/15/2024 8:10 PM EDT ? [facility] ? [address] ?[place] [address] ? Mammography Report ? Signed ? Patient: Tang Tayla,Karina ?MR# ?? : [id number] ? : 1965 ?Acct:[id number] ? Age/Sex: 58 / F ?ADM Date: 05/01/24 ? Loc: HO.MAMMO ? Attending Dr: Brenna Brower MD ? Ordering Physician: Brenna Liriano MD ?Results: ?? 2Benign Findings ? Date of Service: 05/01/24 ?Follow Up: 1 Year From Orig ?? inal Mammogram ? Procedure(s): MM tomosynthesis screening BI ?? Accession Number(s): [id number] ? cc: Brenna Liriano MD ? EXAMINATION: ?? MM SCREENING DIGITAL BREAST TOMOSYNTHESIS, BILATERAL ? CLINICAL INFORMATION: ? Screening. Asymptomatic. ? COMPARISON: ?? Mammography: Comparison is made with available priors ? TECHNIQUE: ?? Digital breast mammography with tomosynthesis is performed in both the ?? craniocaudal and mediolateral oblique views along with computer-aided ?? detection (CAD). ? FINDINGS: ?? The breasts are heterogeneously dense, which may obscure small masses ?? (ACR BI-RADS breast composition Category c). ?? Right breast marker clip from previous needle core biopsy. ?? There are no significant masses, abnormal calcifications, or other ?? abnormalities. ? MM/MM tomosynthesis screening BI ?? IMPRESSION: ?? No mammographic evidence of malignancy. ? ASSESSMENT: ? BI-RADS BI-RADS 2 - Benign Findings ? RECOMMENDATION: ?? Routine annual mammography screening. ? 1 year F/U ? This examination should not preclude the clinical evaluation of a ?? suspicious palpable abnormality. ? This patient's information was entered into a reminder system with a ?? target due date for their next mammogram. ? Electronically signed by: ??Siomara Myrick DO ??05/15/2024 08:07 PM EDT ? Dictated By: ?Siomara Myrick DO ? Signed By: ?<Electronically signed by Siomara Myrick, DO in OV> ? 05/15/242006 ? DD/ 1500 ? TD/TT: 05/01/24 1521 ? Cable Strander: ? Procedure Note Orion, Image - 05/15/2024 [facility] [address] [place] [address] Mammography Report Signed Patient: Brenna Hope DMR# : [id number] : 1965Acct:[id number] Age/Sex: 58 / FADM Date: 05/01/24 Loc: [facility]AN [facility] Attending Dr: Brenna Brower MD Ordering Physician: Brenna Liriano MDResults: 2Benign Findings Date of Service: 05/01/24Follow Up: 1 Year From Orig inal Mammogram Procedure(s): MM tomosynthesis screening BI Accession Number(s): [id number] cc: Brenna Liriano MD EXAMINATION: MM SCREENING DIGITAL BREAST TOMOSYNTHESIS, BILATERAL CLINICAL INFORMATION: Screening. Asymptomatic. COMPARISON: Mammography: Comparison is made with available priors TECHNIQUE: Digital breast mammography with tomosynthesis is performed in both the craniocaudal and mediolateral oblique views along with computer-aided detection (CAD). FINDINGS: The breasts are heterogeneously dense, which may obscure small masses (ACR BI-RADS breast composition Category c). Right breast marker clip from previous needle core biopsy. There are no significant masses, abnormal calcifications, or other abnormalities. MM/MM tomosynthesis screening BI IMPRESSION: No mammographic evidence of malignancy. ASSESSMENT: BI-RADS BI-RADS 2 - Benign Findings RECOMMENDATION: Routine annual mammography screening. 1 year F/U This examination should not preclude the clinical evaluation of a suspicious palpable abnormality. This patient's information was entered into a reminder system with a target due date for their next mammogram. Electronically signed by: Siomara Myrick DO 05/15/2024 08:07 PM EDT Dictated By: Siomara Myrick DO Signed By: <Electronically signed by Siomara Myrick DO in OV> 05/15/242006 DD/ 1500 TD/TT: 05/01/24 1521 Cable Strander: Brenna Brower MD IMG BI PROCEDURES Joe abdullahi Result - Final * (ABNORMAL) Lipid Panel with Reflex to Direct LDL (08/08/2023 11:13 AM EST) Triglycerides 106 <150 mg/dL [facility] Comment:Desirable Triglyceri de: less than 150 mg/dLBorderline High Triglyceride 150-199 mg/dLHigh Triglyceride: 200-499 mg/dLVery High Triglyceride: greater than or equal to 5OO mg/dL Cholesterol 203(H) <200 mg/dL [facility] Comment:Desirable Cholestero l: less than 200 mg/dLBorderline High Cholesterol: 200-239 mg/dLHigh Cholesterol: greater than 239 mg/dL LDL Cholesterol Calculated 135(H) <100 mg/dL [facility] Comment:Desirable LDL: less than 100 mg/dLNear Optimal/Above Optimal LDL: 110- 129 mg/dLBorderline High LDL: 130-159 mg/dLHigh LDL: 160-189 mg/dLVery High LDL: greater than or equal to 190 mg/dL HDL Cholesterol 47 >40 mg/dL [facility] Comment:Desirable HDL: great er than 40 mg/dL Note: This HDL assay may give artificially low results in patients with liver disease. Blood 08/08/2023 11:1 3 AM EST 08/08/2023 11:13 AM EST us Nyla Browne MD LAB BLOOD ORDERABLES Fin al Result Performing Organization Address [facility] Co de Phone Number [facility] [address] [place] [phone] * HPV mRNA E6/E7 (03/21/2017 12:00 AM EDT) HPV mRNA E6/E7 Not Detected NOT DETECTED [facility] Comment: This test was performed using the APTIMA(R) HPV Assay ([employer] This assay detects E6/E7 viral messenger RNA (mRNA) from 14 high-risk HPV types (16,18,31,33,35,39,45,51, 52,56,58,59,66,68). For additional information please refer to: http://education.BarBird/faq/MFL041i7 (This link is being provided for informational/ educational purposes only.) Test Performed by [facility], [address] [place] [phone] Eliseo Dinh M.D., Ph.D., Director of Laboratories , [facility] [id number] Please note: ??Effective 05/01/2016, HPV testing will be performed using [employer] ([employer]s APTIMA test which targets mRNA. Detecting mRNA instead of DNA, as in older methods, offers significant improvements in specificity. 03/21/2017 us Indira Estrada CNM HISTORICAL/NON ORDERABLE LABS Final Result Performing Organization Address City/[facility]/ZIP Co de Phone Number [facility] [address] [place] [address], [place] from Last 3 Months or Most Recently Relevant to Health Maintenance Insurance [place] [address] C3 Care Teams Apparel Designer Relationship Specialty Start Date End Date Brenna Liriano MD [address] [place] [phone] PCP - General Family Medicine 07/01/19 [facility] 06/26/24
--- OUTSIDE RECORDS SUMMARY | 2024-10-08 11:15 | XMS_ITS | Encounter Summary ---
Author Organization [employer] Address [address] [facility] [address] [place] [address] Care Team Providers Care Research Engineer Marine Equipment Name Role Phone Brenna Liriano MD Primary Care Provide r Reason for Visit * Reason Comments Med Refill Encounter Details Date Type Department Care Team ([facility] st Contact Info) Description 12/18/2023 Refill [facility] [address] [place], [place] [phone] Brenna Liriano MD [address] [place], [place] [phone] Social History Tobacco Use Types Packs/Day Years [...] 10:00 AM EST Clinical Support [facility] [address] [place] [address] 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 RN documented as of this encounter Visit Diagnoses Not on filedocumented in this encounter Care Teams Research Engineer Marine Equipment Relationship Specialty Start Date End Date Brenna Liriano MD [address] [place] [address] PCP - General Family Medicine 07/01/19 [facility] 06/26/24 documented as of this encounter
--- OUTSIDE RECORDS SUMMARY | 2024-10-08 11:15 | XMS_ITS | Clinical Summary ---
Author Organization [address] [facility] Address [address] [place] [address] Phone Care Team Providers Care Surgical Scrub Technician Name Role Phone Brenna Liriano MD Primary Care Provide r Allergies Active Allergy Reactions Criticality Noted Date Comments Amoxicillin 02/03/2019 No reaction documented. Diazepam 04/28/2024 Haloperidol Decanoate 02/03/2019 No reaction documented. Penicillin V Potassium 02/03/2019 No reaction documented. Risperidone 02/03/2019 No reaction documented. Medications chlorhexidine (HIBICLENS) 4 % external liquid Clean feet twice a day 4 Active chlorhexidine (Hibiclens) 4 % external liquid Apply 1 Applicator topically daily. 4 Active clotrimazole (LOTRIMIN) 1 % cream Apply to skin and toenails daily for 12 weeks 4 Active docusate sodium (COLACE) 100 mg capsule Take 100 mg by mouth 2 times daily as needed. Active FLUoxetine (PROzac) 20 mg capsule Take 20 mg by mouth every morning. Active clonazePAM (KlonoPIN) 1 mg tablet Take 1 mg by mouth daily. Active omeprazole (PriLOSEC) [address] capsule Take 20 mg by mouth daily. Active clonazePAM (KlonoPIN) 0.5 mg tablet Take 0.5 mg by mouth daily. Active cloZAPine (CLOZARIL) 25 mg tablet Take 2 Tabs by mouth daily. Active cloZAPine (CLOZARIL) 100 mg tablet Take 3 Tabs by mouth at bedtime. Active divalproex (DEPAKOTE ER) 500 mg 24 hr tablet Take 3 Tabs by mouth at bedtime. Active montelukast (SINGULAIR) 10 mg tablet Take 10 mg by mouth daily. Active lisinopriL (PRINIVIL,ZESTR IL) 10 mg tablet Take 1 Tab by mouth at bedtime. Active albuterol HFA (PROAIR HFA ; PROVENTIL HFA ; VENTOLIN HFA) 90 mcg/actuation inhaler Inhale 2 Puffs into the lungs every 4 hours as needed. Every 4-6 hours prn. Active loratadine (CLARITIN) 10 mg tablet Take 10 mg by mouth daily as needed. Active polyethylene glycol (MIRALAX) 17 gram packet Take 17 g by mouth daily as needed. Mixed w/ 8 oz water, juice, soda, coffee or tea as needed. Active traMADoL (ULTRAM) 50 mg tablet Take 50 mg by mouth every 6 hours. Active Active Problems Problem Noted Date Diagnosed Date Allergic rhinitis 02/03/2019 Asthma 02/03/2019 Chronic constipation 02/03/2019 COPD (chronic obstructive pulmonary disease) Depression with anxiety 02/03/2019 Overview (07/02/2024): Admission to [facility] 10/24/2018 for crisis and depression. HTN (hypertension) 02/03/2019 Microalbuminuria 02/03/2019 Obesity 02/03/2019 Onychomycosis 02/03/2019 Osteoarthritis 02/03/2019 Overview (07/02/2024): Knees, bilaterally. Schizoaffective disorder 02/03/2019 Type 2 diabetes mellitus with renal manifestatio ns 02/03/2019 Encounters Date Type Department Care Team Description 08/05/2024 2:30 PM EST Office Visit Orthopedic Surgery - [address] [phone] Carmelo Craig, DPM Tinea pedis of both feet (Primary Dx); Dermatophytosis of nail; Pain in toe of right foot; Pain in toe of left foot; Corns and callosities; Metatarsalgia of both feet; Diabetic mononeuropathy simplex (CMS/HCC); Type II diabetes mellitus with peripheral circulatory disorder (CMS/HCC); Hallux rigidus of right foot; Hallux rigidus of left foot from Last 3 Months Medical History Medical History Date Comments Depression with anxiety 02/03/2019 DX:Depre ssion with anxiety; COMMENT: Admission to [facility] 10/24/2018 for crisis and depression. Asthma 02/03/2019 DX:Asthma Onychomycosis 02/03/2019 DX:Onychomycosis Osteoarthritis 02/03/2019 DX:Osteoarthriti s; COMMENT: knees, bilaterally. HTN (hypertension) 02/03/2019 DX:HTN (hyper tension) COPD (chronic obstructive pu lmonary disease) ([facility]) 02/03/2019 DX:COPD (chronic obstructive pulmonary disease) ([facility]) Schizoaffective disorder ([facility]) 02/03/2019 DX:Schizoaffective disorder ([facility]) Microalbuminuria 02/03/2019 DX:Microalbumin uria Type 2 diabetes mellitus wit h renal manifestations ([facility]) 02/03/2019 DX:Type 2 diabetes mellitus with renal manifestations ([facility]) Tobacco use 02/03/2019 DX:Tobacco use Chronic constipation 02/03/2019 DX:Chronic constipation Allergic rhinitis 02/03/2019 DX:Allergic rh initis Obesity 02/03/2019 DX:Obesity Social History Tobacco Use Types Packs/Day Years Used Date Smoking Tobacco: Never Assessed Comments Unknown Sex and Gender Information Value Date Recorded Sex Assigned at Not on file Legal Sex Female 4:55 AM EST Gender Identity Not on file Sexual Orientation Not on file Obstetrics History Last Filed Vital Signs Vital Sign Reading Time Taken Comments Blood Pressure - - Pulse - - Temperature - - Respiratory Rate - - Oxygen Saturation - - Inhaled Oxygen Concentration - - Weight 85.3 kg (188 lb) 08/05/2024 2:43 PM EST Height 157.5 cm (5' 2.01 ) 08/05/2024 2:43 PM ES T Body Mass Index 34.38 08/05/2024 2:43 PM EST Plan of Treatment Upcoming Encounters Date Type Department Care Team (Late st Contact Info) Description 11/03/2024 2:30 PM EDT Office Visit Orthopedic Surgery - [place] [address] [phone] Carmelo Craig, DPM [address] [address] Health Maintenance Due Date Last Done Comments Breast Cancer Screening 1965 Diabetes: Annual Foot Exam 1975 Diabetes: Annual Retina Eye Exam 1975 Hepatitis A Vaccines (1 of 2 - Risk 2-dose series) 1984 Cervical Cancer Screening: Pap Smear 1986 Zoster Vaccines (1 of 2) 2015 Cholesterol Screening (Lipid Panel) 03/18/2024 Colorectal Cancer Screening: Colonoscopy 03/18/2024 Depression Screening 03/18/2024 Diabetes: Annual Urine Albumin-Creatinine Ratio (uACR) 03/18/2024 HIV Screening 03/18/2024 Hepatitis C Screening 03/18/2024 Social Influencers of Health Screening 03/18/2024 COVID-19 Vaccine ( season) 2024 01/30/2022, 01/26/2021, 12/23/2020 Influenza Vaccine (#1) 2024 , 06/21/2022, 07/11/2021, Additional history exists Diabetes: Blood Sugar Control Test (HGBA1C) 01/12/2025 07/15/2024 Diabetes: Annual GFR (Glomerular Filtration Rate) 07/21/2025 07/21/2024, 06/18/2024 Hypertension/CHF/CAD Annual BMP Blood Test 07/21/2025 07/21/2024, 06/18/2024 DTaP,Tdap,and Td Vaccines (5 - Td or Tdap) 06/21/2032 06/21/2022, 12/16/2010, 11/27/2005, Additional history exists RSV Immunization Patients 60+ Years Old (1 - 1-dose 75+ series) 2040 Hepatitis B Vaccines Completed 06/22/2014, 03/29/2012, 02/27/2012 Pneumococcal Vaccine: 50+ Years Completed 07/10/2023, 12/16/2010 Pneumococcal Vaccine: Pediatrics (0 to 5 Years) and At-Risk Patients (6 to 64 Years) Completed 07/10/2023, 12/16/2010 HIB Vaccines Aged Out No longer eligi ble based on patient's age to complete this topic HPV Vaccines Aged Out No longer eligi ble based on patient's age to complete this topic IPV Vaccines Aged Out No longer eligi ble based on patient's age to complete this topic MMR Vaccines Aged Out No longer eligi ble based on patient's age to complete this topic Meningococcal ACWY Vaccine Aged Out N o longer eligible based on patient's age to complete this topic Meningococcal B Vacine Aged Out No lo nger eligible based on patient's age to complete this topic RSV Immunization Patients Under 20 months Aged Out No longer eligible based on patient's age to complete this topic Varicella Vaccines Aged Out No longer eligible based on patient's age to complete this topic Insurance [place] - [place] Care Teams Surgical Scrub Technician Relationship Specialty Start Date End Date Brenna Liriano MD [address] [place] [address] [place] [phone] PCP - General 08/30/23
--- OUTSIDE RECORDS SUMMARY | 2024-10-08 11:15 | XMS_ITS | Encounter Summary ---
Author Organization [employer] [facility] Address [address] [place] [phone] Care Team Providers Care Label Remover Name Role Phone Brenna Liriano MD Primary Care Provide r Encounter Details Date Type Department Care Team (Late Contact Info) Description 08/10/2022 Abstract [place] [facility] [address] [place] [address] Brenna Liriano MD [address] [place], [place] [phone] Social History Tobacco Use Types Packs/Day Years [...] Description 10/09/2024 10:00 AM EST Clinical Support [facility] [address] [place] [address] 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 RN documented as of this encounter Visit Diagnoses Not on filedocumented in this encounter Care Teams Label Remover Relationship Specialty Start Date End Date Brenna Liriano MD [address] [place] [address] [phone] PCP - General Family Medicine 07/01/19 [facility] 06/26/24 documented as of this encounter
--- OUTSIDE RECORDS SUMMARY | 2024-10-08 11:15 | XMS_ITS | Encounter Summary ---
Author Organization [facility] Address [address] [place] [address] 7t [place] [address] Care Team Providers Care Financial Coordinator Name Role Phone Bernna Liriano MD Primary Care Provide r Reason for Visit * Reason Comments Med Refill Encounter Details Date Type Department Care Team ([facility] Contact Info) Description 10/23/2022 Refill [facility] MEDICINE [address] [place] [phone] Hina Mccormack MD [address] [place], [place] [phone] Other chronic pain Social History Tobacco Use Types Packs/Day Years Used Date Smoking Tobacco: Never Smokeless Tobacco: Never Comments Unknown Sex and Gender Information Value Date Recorded Sex Assigned at Female 06/19/2022 10:14 AM EDT Legal Sex Female 10:14 AM EDT Gender Identity Female 06/19/2022 10:14 AM EDT Sexual Orientation Choose not to disclose 2021 10:14 AM EDT COVID-19 Exposure Response Date Recorded In the last 10 days, have yo u been in contact with someone who was confirmed or suspected to have Coronavirus/COVID-19? No / Unsure 10/16/2022 11:45 AM EST documented as of this encounter Plan of Treatment Upcoming Encounters Date Type Department Care Team (Late st Contact Info) Description 10/09/2024 10:00 AM EST Clinical Support [facility] MEDICINE [address] [place] [phone] 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 RN documented as of this encounter Visit Diagnoses Diagnosis Other chronic pain documented in this encounter Care Teams Financial Coordinator Relationship Specialty Start Date End Date Brenna Liriano MD 230 [facility] [place] [address] PCP - General Family Medicine 07/01/19 [facility] 06/26/24 documented as of this encounter
== END 2024-10-08 10:38 | disposition home or self-care (01) ==
LOC: HO.LAB 10:37
PROVIDERS: PCP Internal Medicine; Visit Provider Clinical Nurse Specialist Psychiatric/Mental Health, Adult
DX: Z79.899 Other long term (current) drug therapy (principal)
CPT/HCPCS: 36415; 85025

== ENCOUNTER 2024-10-09 18:13 | Outpatient (REF) | payer MEDICAID, SELFPAY ==
--- OUTSIDE RECORDS SUMMARY | 2024-10-09 18:15 | XMS_ITS | Encounter Summary ---
Author Organization [employer] Address 75 [facility] 7t [place] [address] Care Team Providers Care Bindery Machine Setter/Set Up Operator Name Role Phone Brenna Liriano MD Primary Care Provide r Encounter Details Date Type Department Care Team (Latest Contact Info) Description 10/09/2024 Travel Social History Tobacco Use Types Packs/Day Years [...] Care Team (Late st Contact Info) Description 10/16/2024 9:00 AM EST Medication Management [address] [address] 01/06/2025 10:00 AM EDT Clinical Support [address] [address] 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 RN documented as of this encounter Visit Diagnoses Not on filedocumented in this encounter Care Teams Bindery Machine Setter/Set Up Operator Relationship Specialty Start Date End Date Brenna Liriano MD [address] [place] [phone] PCP - General Family Medicine 07/01/19 [facility] 06/26/24 documented as of this encounter
--- OUTSIDE RECORDS SUMMARY | 2024-10-09 18:15 | XMS_ITS | Encounter Summary ---
Author Organization [employer] Address 75 [facility] 7t [place] [address] Care Team Providers Care Painter Plate Name Role Phone Brenna Liriano MD Primary Care Provide r Reason for Visit * Reason Comments Med Refill Encounter Details Date Type Department Care Team ([facility] st Contact Info) Description 12/18/2023 Refill [facility] MEDICINE 230 [place], [place] [phone] Brenna Liriano MD 230 [place], [place] [phone] Social History Tobacco Use Types Packs/Day Years [...] Description 10/16/2024 9:00 AM EST Medication Management [address] [address] 01/06/2025 10:00 AM EDT Clinical Support [address] [address] 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 RN documented as of this encounter Visit Diagnoses Not on filedocumented in this encounter Care Teams Painter Plate Relationship Specialty Start Date End Date Brenna Liriano MD [address] [place] [address] PCP - General Family Medicine 07/01/19 [facility] 06/26/24 documented as of this encounter
--- OUTSIDE RECORDS SUMMARY | 2024-10-09 18:15 | XMS_ITS | Encounter Summary ---
Author Organization [employer] Address 75 [facility] 7t [place] [address] Care Team Providers Care Comfort Advisor Name Role Phone Brenna Liriano MD Primary Care Provide r Reason for Visit * Reason Onset Date Comments UTOX Pos MTD 10/09/2024 Encounter Details Date Type Department Care Team ([facility] st Contact Info) Description 10/09/2024 Telephone [facility] MEDICINE 230 [place] [address] 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 RN UTOX Pos MTD Social History Tobacco Use Types Packs/Day Years [...] Telephone Encounter - 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 RN - 10/09/2024 10:51 AM EST Pt had [employer] initial appt today UTOX was Pos MTD, sent to lab for confirmation documented in this encounter Plan of Treatment Upcoming Encounters Date Type Department Care Team (Late st Contact Info) Description 10/16/2024 9:00 AM EST Medication Management [address] [address] 01/06/2025 10:00 AM EDT Clinical Support [address] [address] 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, RN documented as of this encounter Visit Diagnoses Not on filedocumented in this encounter Care Teams Comfort Advisor Relationship Specialty Start Date End Date Brenna Liriano MD 230 [place] [address] PCP - General Family Medicine 07/01/19 [facility] 06/26/24 documented as of this encounter
--- OUTSIDE RECORDS SUMMARY | 2024-10-09 18:15 | XMS_ITS | Encounter Summary ---
Author Organization [facility] Address [address] [place] [address] 7 [place] [address] Care Team Providers Care Network Operations Project Manager Name Role Phone Brenna Liriano MD Primary Care Provide r Encounter Details Date Type Department Care Team ([facility] Contact Info) Description 02/12/2023 Orders Only [address] [address] Kristen Hernandez LPN Social History Tobacco Use [...] Department Care Team (Late Contact Info) Description 10/16/2024 9:00 AM EST Medication Management [address] [address] 01/06/2025 10:00 AM EDT Clinical Support [address] [address] 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 RN documented as of this encounter Visit Diagnoses Not on filedocumented in this encounter Care Teams Network Operations Project Manager Relationship Specialty Start Date End Date Brenna Liriano MD [address] [place] [address]. [place] [id number] PCP - General Family Medicine 07/01/19 [facility] 06/26/24 documented as of this encounter
--- OUTSIDE RECORDS SUMMARY | 2024-10-09 18:15 | XMS_ITS | Clinical Summary ---
Author Organization [facility] Address 175 [place] [address] Phone Care Team Providers Care Unloader Operator Name Role Phone Brenna Liriano MD [...] with anxiety 02/03/2019 Overview (07/02/2024): Admission to [facility] 10/24/2018 for crisis and depression. HTN (hypertension) 02/03/2019 Microalbuminuria 02/03/2019 Obesity 02/03/2019 Onychomycosis 02/03/2019 Osteoarthritis 02/03/2019 Overview (07/02/2024): Knees, bilaterally. Schizoaffective disorder 02/03/2019 Type 2 diabetes mellitus with renal manifestatio ns 02/03/2019 Encounters Date Type Department Care Team Description 08/05/2024 2:30 PM EST Office Visit Orthopedic Surgery - [address] [address] Carmelo Craig, DPM Tinea pedis [...] DX:Depre ssion with anxiety; COMMENT: Admission to [facility] 10/24/2018 for crisis and depression. Asthma 02/03/2019 DX:Asthma Onychomycosis 02/03/2019 DX:Onychomycosis Osteoarthritis 02/03/2019 DX:Osteoarthriti s; COMMENT: knees, bilaterally. HTN (hypertension) 02/03/2019 DX:HTN (hyper tension) COPD (chronic obstructive pu lmonary disease) ([facility]) 02/03/2019 DX:COPD (chronic obstructive pulmonary disease) ([facility]) Schizoaffective disorder ([facility]) 02/03/2019 DX:Schizoaffective disorder ([facility]) Microalbuminuria 02/03/2019 DX:Microalbumin uria Type 2 diabetes mellitus wit h renal manifestations ([facility]) 02/03/2019 DX:Type 2 diabetes mellitus with renal manifestations ([facility]) Tobacco use 02/03/2019 DX:Tobacco use Chronic constipation [...] PM EDT Office Visit Orthopedic Surgery - [place] [address] [address] Carmelo Craig, DPM [address] [address] Health Maintenance Due Date Last Done Comments [...] topic Insurance MEDICAID - [place] Care Teams Unloader Operator Relationship Specialty Start Date End Date Brenna Liriano MD [address] [place] [address] [place] [phone] PCP - General 08/30/23
--- OUTSIDE RECORDS SUMMARY | 2024-10-09 18:15 | XMS_ITS | Encounter Summary ---
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 Opioid Risk scoring was 17. Pt and foster Mother Lanny would bucky [facility] pharmacy to be her pharmacy and they would like a referral for the [facility] program. documented in this encounter Plan of Treatment Upcoming Encounters Date Type Department Care Team (Late st Contact Info) Description 10/16/2024 9:00 AM EST Medication Management [address] [address] 01/06/2025 10:00 AM EDT Clinical Support [facility] MEDICINE [address] [place] [address] 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, RN documented as of this encounter Visit Diagnoses Diagnosis Chronic bilateral low back pain without sciatica- Primary documented in this encounter Care Teams Bottling Line Attendant Relationship Specialty Start Date End Date Brenna Liriano MD [address] [place] [address] PCP - General Family Medicine 07/01/19 [facility] 06/26/24 documented as of this encounter
--- OUTSIDE RECORDS SUMMARY | 2024-10-09 18:15 | XMS_ITS | Encounter Summary ---
Author Organization [employer] Address 75 [facility] 7t [place] [address] Care Team Providers Care Charge Machine Operator Name Role Phone Brenna Liriano MD Primary Care Provide r Reason for Visit * Reason Onset Date Comments Recommend FINANCIAL PROFESSIONAL Tier 2 10/09/2024 Encounter Details Date Type Department Care Team ([facility] st Contact Info) Description 10/09/2024 Telephone [facility] MEDICINE 230 [place] [address] 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, GUILLE Recommend FINANCIAL PROFESSIONAL Tier 2 Social History Tobacco Use Types Packs/Day Years [...] Encounter - 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 RN - 10/09/2024 7:30 AM EST What FINANCIAL PROFESSIONAL Tier would you like this patient to be? I recommend Tier 2, please let me know if you agree or would rather patient be in another FINANCIAL PROFESSIONAL Tier. Tier 1 = HIGH RISK, Monthly FINANCIAL PROFESSIONAL visits Tier 2 = MODerate RISK, Q3 Month visits Tier 3 = LOW RISK = Q4-6 month visits documented in this encounter Plan of Treatment Upcoming Encounters Date Type Department Care Team (Late st Contact Info) Description 10/16/2024 9:00 AM EST Medication Management [address] [address] 01/06/2025 10:00 AM EDT Clinical Support [address] [address] 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, RN documented as of this encounter Visit Diagnoses Not on filedocumented in this encounter Care Teams Charge Machine Operator Relationship Specialty Start Date End Date Brenna Liriano MD [address] [place] [address] PCP - General Family Medicine 07/01/19 [facility] 06/26/24 documented as of this encounter
--- OUTSIDE RECORDS SUMMARY | 2024-10-09 18:15 | XMS_ITS | Encounter Summary ---
Author Organization [employer] Address 75 [facility] 7t [place] [address] Care Team Providers Care House Visitor Name Role Phone Brenna Liriano MD Primary Care Provide r Reason for Visit * Reason Comments Med Refill Encounter Details Date Type Department Care Team ([facility] st Contact Info) Description 03/11/2024 Refill [facility] MEDICINE 230 [place], [place] [phone] Brenna Liriano MD 230 [place], [place] [phone] Asthma, unspecified asthma severity, unspecified whether complicated, [...] Description 10/16/2024 9:00 AM EST Medication Management [address] [address] 01/06/2025 10:00 AM EDT Clinical Support [address] [address] 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 RN documented as of this encounter Visit Diagnoses Diagnosis Asthma, unspecified asthma severity, unspecified whether complicated, unspecified whether persistent documented in this encounter Care Teams House Visitor Relationship Specialty Start Date End Date Brenna Liriano MD [address] [place] [address] PCP - General Family Medicine [facility] documented as of this encounter
--- OUTSIDE RECORDS SUMMARY | 2024-10-09 18:15 | XMS_ITS | Encounter Summary ---
Author Organization [employer] Address [address] [place] [address] 7t [place] [address] Care Team Providers Care Geology Professor Name Role Phone Brenna Liriano MD Primary Care Provide r Encounter Details Date Type Department Care Team ([facility] Contact Info) Description 02/08/2023 Orders Only [facility] PEDS [address] [place], [place] [phone] Enma Sparks LPN Social History Tobacco Use [...] Description 10/16/2024 9:00 AM EST Medication Management [address] [address] 01/06/2025 10:00 AM EDT Clinical Support [address] [address] 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 RN documented as of this encounter Visit Diagnoses Not on filedocumented in this encounter Care Teams Geology Professor Relationship Specialty Start Date End Date Brenna Liriano MD [address] [place] [address] PCP - General Family Medicine 07/01/19 [facility] 06/26/24 documented as of this encounter
--- OUTSIDE RECORDS SUMMARY | 2024-10-09 18:15 | XMS_ITS | Encounter Summary ---
Author Organization [employer] Address 75 [facility] 7t [place] [address] Care Team Providers Care Paper Sheeter Name Role Phone Brenna Liriano MD Primary Care Provide r Reason for Visit * Reason Comments Med Refill Encounter Details Date Type Department Care Team ([facility] st Contact Info) Description 09/14/2023 Refill [facility] MEDICINE 230 [place], [place] [phone] Brenna Liriano MD 230 [place], [place] [phone] Constipation, unspecified constipation type Social History Tobacco [...] Description 10/16/2024 9:00 AM EST Medication Management [address] [address] 01/06/2025 10:00 AM EDT Clinical Support [address] [address] 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 RN documented as of this encounter Visit Diagnoses Diagnosis Constipation, unspecified constipation type documented in this encounter Care Teams Paper Sheeter Relationship Specialty Start Date End Date Brenna Liriano MD [address] [place] [address] PCP - General Family Medicine 07/01/19 [facility] 06/26/24 documented as of this encounter
--- OUTSIDE RECORDS SUMMARY | 2024-10-09 18:15 | XMS_ITS | Encounter Summary ---
Author Organization [employer] Address 75 [facility] 7t [place] [address] Care Team Providers Care Diamond Grader Name Role Phone Brenna Liriano MD Primary Care Provide r Reason for Visit * Reason Comments DATABASE DEVELOPER INitial DATABASE DEVELOPER Initial Encounter Details Date Type Department Care Team (Latest Contact Info) Description 10/09/2024 10:00 AM EST Clinical Support [facility] MEDICINE 230 [place] [address] 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 RN Chronic bilateral low back [...] AM EDT documented as of this encounter Progress Notes * 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 RN - 10/09/2024 10:00 AM EST S: Pt here for initial DATABASE DEVELOPER Visit, accompanied by her transmitter engineer in charge Lanny, who assisted with translation when needed. Prescribed Tramadol 50mg Q12hr PRN. States she has been taking as prescribed, last dose taken was 2 days ago. Pt is also prescribed Clonazepam from an outside provider. States she quit smoking cigarettes 3 months ago, was smoking 1 pack every 3 days for over a year. She denies ETOH use, Illicit drug use and marijuana use. Currently rates her pain an 8 and states medication is 75% effective at alleviating her pain. Current pain sites are her knee's, mostly her left knee. She usesicey hot at home with little relief. Pt has been NCNS for DATABASE DEVELOPER Initial appt on 05/22/24 and 06/30/24.Patient and foster mother expressed frustration with their current pharmacy and would like to be switched to [facility] for all her medication needs. O: DATABASE DEVELOPER Tier 2. Pt currently prescribed Tramadol 50mg Q12hr PRN. TUNG NUT GROWER verified today. Rx last filled on 09/01/24. Pill count performed. Pt has 0 pills at this time, 0 at least expected. Medication is not overused by patient. UTOX completed. Positive for MTD, Negative for AMP, BAR, BUP, BZO, NICK, FTY, MDMA, MET, MOP, OXY, PCP, TCA, THC. UTOX not as expected. Reviewed UTOX results with pt and foster mother. Pt denies any use of any drugs other than what's prescribed to her. Explained I would send her urine out for confirmation and will call her if the results are abnormal. Opioid Risk Tool & BPI completed, see scanned documents from this date. Pain Severity score of 7.8, Activity Interference score of 6.7. Opioid Risk score of 17. Narcan medication reviewed, how it's administered and when it's used. Pt and foster mom stated they understood. Will send request to PCP for Tramadol refill, narcan RX, [facility] referral and update on UTOX results. Last PCP visit was 07/15/24. A: DATABASE DEVELOPER Contract Initiation Visit: Chronic Opioid use related to pain. P: DATABASE DEVELOPER contract reviewed and signed, Pt provided copy. Pt to continue taking medication only as prescribed; Next DATABASE DEVELOPER RV appointment scheduled for 01/06/25 @ 10a, F/U sooner PRN. Appointment reminder given. Pt verbalized understanding and agreed to plan. documented in this encounter Plan of Treatment Upcoming Encounters Date Type Department Care Team (Late st Contact Info) Description 10/16/2024 9:00 AM EST Medication Management [address] [address] 01/06/2025 10:00 AM EDT Clinical Support [address] [address] 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, RN Scheduled Orders Name Type Priority Associated Diagnoses Orde r Schedule Drug Monitoring, Methadone Metabolite, Screen, Urine Lab Routine Chronic bilateral low back pain without sciatica Ordered: 10/09/2024 documented as of this encounter Procedures Procedure Name Priority Date/Time Associated Diagnosis Comments POCT BANG-14 URINE DRUG SCREEN Routine 10/09/2024 10:43 AM EST Chronic bilateral low back pain without sciatica documented in this encounter Results * (ABNORMAL) POCT BANG-14 Urine Drug Screen (10/09/2024 10:43 AM EST) Methadone Screen, Urine Positive Urine Urine specimen obtained by clean catch procedure / Unknown 10/09/2024 10:43 AM EST Narrative 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, RN - 10/09/2024 10:43 AM EST UTOX cup Lot#[id number] Exp. 04/08/26 Internal Pass Control Brenna Brower MD POINT OF CARE TEST EN TER/EDIT ORDERABLES Final Result documented in this encounter Visit Diagnoses Diagnosis Chronic bilateral low back pain without sciatica- Primary documented in this encounter Care Teams Diamond Grader Relationship Specialty Start Date End Date Brenna Liriano MD 230 [place] [address] PCP - General Family Medicine 07/01/19 [place] [facility] 06/26/24 documented as of this encounter
--- OUTSIDE RECORDS SUMMARY | 2024-10-09 18:15 | XMS_ITS | Encounter Summary ---
Author Organization [employer] Address 75 [facility] 7t [place] [address] Care Team Providers Care Clinical Social Work Therapist Name Role Phone Brenna Lirinao MD Primary Care Provide r Reason for Visit * Reason Onset Date Comments OCTOBER RECALL 09/18/2024 Encounter Details Date Type Department Care Team ([facility] st Contact Info) Description 09/18/2024 Telephone [facility] MEDICINE 230 [place], [place] [phone] Juanita Barragan [place] OCTOBER RECALL Social History [...] EST TC- Patient to schedule an appt (October Recall) with F\U number has been restricted. Mailed recall letter. documented in this encounter Plan of Treatment Upcoming Encounters Date Type Department Care Team (Late st Contact Info) Description 10/16/2024 9:00 AM EST Medication Management [address] [address] 01/06/2025 10:00 AM EDT Clinical Support [address] [address] 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 RN documented as of this encounter Visit Diagnoses Not on filedocumented in this encounter Care Teams Clinical Social Work Therapist Relationship Specialty Start Date End Date Brenna Liriano MD [address] [place] [address] PCP - General Family Medicine 07/01/19 [place] [facility] 06/26/24 documented as of this encounter
--- OUTSIDE RECORDS SUMMARY | 2024-10-09 18:15 | XMS_ITS | Encounter Summary ---
Author Organization [facility] [facility] Address [address] [place] [address] 7 [place] [address] Care Team Providers Care Car And Yard Supervisor Name Role Phone Brenna Liriano MD Primary Care Provide r Reason for Referral * Consultation (Routine) - Authorized Specialty Diagnoses / Procedures Referred By Contac t Referred To Contact Pharmacy Diagnoses Type 2 diabetes mellitus with hyperglycemia, without long-term current use of insulin (CMS/HCC) Chronic schizoaffective schizophrenia (CMS/HCC) Brenna Liriano MD [address] [place] [address] Phone: tel: fax: Referral ID Status Reason Start Date Expiration Date Visits Requested Visits Authorized [id number] Authorized Continuity of Care 10/09/2024 10/09/2025 6 6 Encounter Details Date Type Department Care Team (Late st Contact Info) Description 10/09/2024 Orders Only [facility] MEDICINE [address] [place] [phone] Brenna Liriano MD 230 [place], [place] [phone] Type 2 diabetes mellitus with hyperglycemia, without long-term current use of insulin (CMS/HCC) (Primary Dx); Chronic schizoaffective schizophrenia (CMS/HCC) Social History Tobacco Use Types Packs/Day Years [...] Description 10/16/2024 9:00 AM EST Medication Management [address] [address] 01/06/2025 10:00 AM EDT Clinical Support [address] [address] 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, RN Scheduled Referrals Name Type Priority Associated Diagnoses Orde r Schedule Referral to Pharmacy [facility] Outpatient Referral Routine Type 2 diabetes mellitus with hyperglycemia, without long-term current use of insulin (CMS/HCC) Chronic schizoaffective schizophrenia (CMS/HCC) Ordered: 10/09/2024 documented as of this encounter Visit Diagnoses Diagnosis Type 2 diabetes mellitus with hyperglycemia, without long-term current use of insulin (CMS/HCC)- Primary Chronic schizoaffective schizophrenia (CMS/HCC) Schizoaffective disorder, chronic condition documented in this encounter Care Teams Car And Yard Supervisor Relationship Specialty Start Date End Date Brenna Liriano MD [address] [place] [address] [place] [address] PCP - General Family Medicine 07/01/19 [place] [facility] 06/26/24 documented as of this encounter
--- OUTSIDE RECORDS SUMMARY | 2024-10-09 18:15 | XMS_ITS | Encounter Summary ---
Author Organization [employer] Address [address] [facility] 7t [place] [address] Care Team Providers Care Business Performance Advisor Name Role Phone Brenna Liriano MD Primary Care Provide r Reason for Visit * Reason Comments Med Refill Encounter Details Date Type Department Care Team ([facility] st Contact Info) Description 07/24/2023 Refill [facility] [address] [place], [place] [phone] Brenna Liriano MD [address] [place] [address] Social History Tobacco Use Types Packs/Day Years [...] 10/16/2024 9:00 AM EST Medication Management [address] [address] 01/06/2025 10:00 AM EDT Clinical Support [address] [address] 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 RN documented as of this encounter Visit Diagnoses Not on filedocumented in this encounter Care Teams Business Performance Advisor Relationship Specialty Start Date End Date Brenna Liriano MD [address] [place] [phone] PCP - General Family Medicine 07/01/19 [facility] 06/26/24 documented as of this encounter
--- OUTSIDE RECORDS SUMMARY | 2024-10-09 18:15 | XMS_ITS | Encounter Summary ---
Author Organization [employer] Address [address] [facility] 7t [place] [address] Care Team Providers Care Caustics Loader Name Role Phone Brenna Liriano MD Primary Care Provide r Reason for Visit * Reason Onset Date Comments Appointment Request 10/31/2023 Encounter Details Date Type Department Care Team ([facility] st Contact Info) Description 10/31/2023 Telephone [facility] MEDICINE [address] [place], [place] [phone] Brenna Liriano MD [address] [place], [place] [phone] Appointment Request Social History Tobacco Use Types [...] encounter Miscellaneous Notes * Telephone Encounter - Rodney Sarah - 10/31/2023 12:06 PM EDT Tc from Veronica the patients typing office worker calling to cancel the PAP appt on 11/06 and would like to reschedule documented in this encounter Plan of Treatment Upcoming Encounters Date Type Department Care Team (Late st Contact Info) Description 10/16/2024 9:00 AM EST Medication Management [address] [address] 01/06/2025 10:00 AM EDT Clinical Support [address] [address] 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, GUILLE documented as of this encounter Visit Diagnoses Not on filedocumented in this encounter Care Teams Caustics Loader Relationship Specialty Start Date End Date Brenna Liriano MD [address] [place] [phone] PCP - General Family Medicine 07/01/19 [facility] [place] [facility] 06/26/24 documented as of this encounter
--- OUTSIDE RECORDS SUMMARY | 2024-10-09 18:15 | XMS_ITS | Encounter Summary ---
Author Organization [employer] [facility] Address [address] [place] [address] 7t [place] [address] Care Team Providers Care Continuing Education Director Name Role Phone Brenna Liriano MD Primary Care Provide r Reason for Visit * Reason Comments Med Refill Encounter Details Date Type Department Care Team (Late Contact Info) Description 10/23/2022 Refill [facility] MEDICINE [address] [place] [address] [phone] Hina Mccormack MD [address] [place] [address] [phone] Other chronic pain Social History Tobacco Use [...] Description 10/16/2024 9:00 AM EST Medication Management [facility] MEDICINE [address] [place] [address] [phone] 01/06/2025 10:00 AM EDT Clinical Support [facility] MEDICINE [address] [place] [address] [phone] 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, GUILLE documented as of this encounter Visit Diagnoses Diagnosis Other chronic pain documented in this encounter Care Teams Continuing Education Director Relationship Specialty Start Date End Date Brenna Liriano MD [address] [place] [address] [place] [address] PCP - General Family Medicine 07/01/19 [facility] 06/26/24 documented as of this encounter
--- OUTSIDE RECORDS SUMMARY | 2024-10-09 18:16 | XMS_ITS | Encounter Summary ---
Author Organization [employer] Address [address] [place] [address] 7t [place] [address] Care Team Providers Care Hot Box Checker Name Role Phone Brenna Liriano MD Primary Care Provide r Reason for Visit * Reason Onset Date Comments Hospital Follow-up 06/25/2024 Encounter Details Date Type Department Care Team ([facility] Contact Info) Description 06/25/2024 Telephone [facility] MEDICINE [address] [place], [place] [phone] Brenna Liriano MD [address] [place], [place] [phone] Hospital Follow-up Social History Tobacco Use Types [...] from pt requesting a HDF appt. Hospital: [facility] Date of admission: Asthma Discharge date: 06/18/24 Diagnosed: 06/24/24 *Send message to [place] Clinical Care Coordinators documented in this encounter Plan of Treatment Upcoming Encounters Date Type Department Care Team (Late st Contact Info) Description 10/16/2024 9:00 AM EST Medication Management [address] [address] 01/06/2025 10:00 AM EDT Clinical Support [address] [address] 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, GUILLE documented as of this encounter Visit Diagnoses Not on filedocumented in this encounter Care Teams Hot Box Checker Relationship Specialty Start Date End Date Brenna Liriano MD [address] [place] [phone] PCP - General Family Medicine 07/01/19 [place] [facility] 06/26/24 documented as of this encounter
--- OUTSIDE RECORDS SUMMARY | 2024-10-09 18:16 | XMS_ITS | Encounter Summary ---
Author Organization [employer] Address [address] [place] [address] 7t [place] [address] Care Team Providers Care Die Repairer Trimmer Dies Name Role Phone Brenna Liriano MD Primary Care Provide r Reason for Visit * Reason Onset Date Comments Med Refill Reschedule PHYSICAL SCIENCE PROFESSOR Initial appt - 3rd attempt 2024 Encounter Details Date Type Department Care Team (Late st Contact Info) Description 10/03/[address] [facility] MEDICINE [address] [place] [address] Brenna Liriano MD [address] [place] [address] Primary osteoarthritis of both knees; Chronic bilateral [...] not be done until she comes to PHYSICAL SCIENCE PROFESSOR appointment thank you. TC via [id number], PHYSICAL SCIENCE PROFESSOR Initial appt X 3 scheduled for 10/09/24 @ 10am. Pt stated she will be coming with [facility]. * Telephone Encounter - Brenna Brower MD - 10/07/2024 11:47 AM EST Please let patient know refill will not be done until she comes to PHYSICAL SCIENCE PROFESSOR appointment thank you documented in this encounter Plan of Treatment Upcoming Encounters Date Type Department Care Team (Late st Contact Info) Description 10/16/2024 9:00 AM EST Medication Management [facility] MEDICINE [address] [place] [phone] 01/06/2025 10:00 AM EDT Clinical Support [address] [address] 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, RN documented as of this encounter Visit Diagnoses Diagnosis Primary osteoarthritis of both knees Chronic bilateral low back pain without sciatica documented in this encounter Care Teams Die Repairer Trimmer Dies Relationship Specialty Start Date End Date Brenna Liriano MD [address] [facility] [place] [address] PCP - General Family Medicine 07/01/19 [facility] 06/26/24 documented as of this encounter
--- OUTSIDE RECORDS SUMMARY | 2024-10-09 18:16 | XMS_ITS | Encounter Summary ---
Author Organization [facility] Address [address] [place] [address] Care Team Providers Care Electric Meter Repairer Name Role Phone Brenna Liriano MD Primary Care Provide r Encounter Details Date Type Department Care Team (Late Contact Info) Description 08/10/2022 [facility] Health Information Management [address] [place] [address] Brenna Liriano MD [address] [place] [address] Social History Tobacco Use Types Packs/Day Years [...] Description 10/16/2024 9:00 AM EST Medication Management [facility] MEDICINE [address] [place] [address] [phone] 01/06/2025 10:00 AM EDT Clinical Support [facility] MEDICINE [address] [place] [address] [phone] 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 RN documented as of this encounter Visit Diagnoses Not on filedocumented in this encounter Care Teams Electric Meter Repairer Relationship Specialty Start Date End Date Brenna Liriano MD [address] [place] [phone] PCP - General Family Medicine 07/01/19 [facility] 06/26/24 documented as of this encounter
--- OUTSIDE RECORDS SUMMARY | 2024-10-09 18:16 | XMS_ITS | Encounter Summary ---
Author Organization [employer] Address 75 [facility] 7t [place] [address] Care Team Providers Care Cotton Gin Yard Supervisor Name Role Phone Brenna Liriano MD Primary Care Provide r Reason for Visit * Reason Comments Med Refill Encounter Details Date Type Department Care Team ([facility] st Contact Info) Description 09/30/2024 Refill [facility] MEDICINE 230 [place], [place] [phone] Brenna Liriano MD [address] [place], [place] [phone] Uncomplicated asthma, unspecified asthma severity, unspecified whether [...] Description 10/16/2024 9:00 AM EST Medication Management [address] [address] 01/06/2025 10:00 AM EDT Clinical Support [address] [address] 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 RN documented as of this encounter Visit Diagnoses Diagnosis Uncomplicated asthma, unspecified asthma severity, unspecified whether persistent documented in this encounter Care Teams Cotton Gin Yard Supervisor Relationship Specialty Start Date End Date Brenna Liriano MD [address] [place] [phone] PCP - General Family Medicine 07/01/19 [place] [facility] 06/26/24 documented as of this encounter
--- OUTSIDE RECORDS SUMMARY | 2024-10-09 18:16 | XMS_ITS | Encounter Summary ---
Author Organization [employer] Address [address] [facility] 7t [place] [address] Care Team Providers Care Rejogger Name Role Phone Brenna Liriano MD Primary Care Provide r Reason for Visit * Reason Onset Date Comments Med Refill 10/07/2024 Encounter Details Date Type Department Care Team ([facility] st Contact Info) Description 10/07/2024 Telephone [facility] MEDICINE [address] [place], [place] [phone] Brenna Liriano MD 230 [place], [place] [phone] Med Refill Social History Tobacco Use Types [...] from PCP today, no tramadol refill until BOILER TECHNICIAN initial visit completed. Spoke with patient today and pt Is scheduled for 10/09/24. * Telephone Encounter - Melchor Ortega - 10/07/2024 3:05 PM EST TC from pt requesting medication refill. Medications needing refill : traMADol (Ultram) 50 MG tablet To be sent to: [facility] - [place], [place] - [phone] - [place] - [address] documented in this encounter Plan of Treatment Upcoming Encounters Date Type Department Care Team (Late st Contact Info) Description 10/16/2024 9:00 AM EST Medication Management [address] [address] 01/06/2025 10:00 AM EDT Clinical Support [address] [address] 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 RN documented as of this encounter Visit Diagnoses Not on filedocumented in this encounter Care Teams Rejogger Relationship Specialty Start Date End Date Brenna Liriano MD [address] [place] [phone] PCP - General Family Medicine 07/01/19 [facility] 06/26/24 documented as of this encounter
--- OUTSIDE RECORDS SUMMARY | 2024-10-09 18:16 | XMS_ITS | Encounter Summary ---
Author Organization [employer] Address [address] [facility] 7t [place] [address] Care Team Providers Care Global Marketing Manager Name Role Phone Brenna Liriano MD Primary Care Provide r Reason for Visit * Reason Comments Med Refill Encounter Details Date Type Department Care Team ([facility] st Contact Info) Description 09/30/2024 Refill [facility] MEDICINE [address] [place], [place] [phone] Brenna Liriano MD [address] [place], [place] [phone] Social History Tobacco Use Types Packs/Day Years [...] t he electric, gas, oil or water [employer] threatened to shut off services in your [...] Description 10/16/2024 9:00 AM EST Medication Management [address] [address] 01/06/2025 10:00 AM EDT Clinical Support [address] [address] 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 RN documented as of this encounter Visit Diagnoses Not on filedocumented in this encounter Care Teams Global Marketing Manager Relationship Specialty Start Date End Date Brenna Liriano MD [address] [place] [address] PCP - General Family Medicine 07/01/19 [facility] 06/26/24 documented as of this encounter
--- OUTSIDE RECORDS SUMMARY | 2024-10-09 18:16 | XMS_ITS | Clinical Summary ---
Author Organization [employer] Address [address] [place] [address] [address] [place] [address] Care Team Providers Care Fill Manager Name Role Phone Brenna Liriano MD [...] MORNING 90 tablet 1 10/01/19 25 Active traMADol (Ultram) 50 MG tabletIndicatio ns:Chronic bilateral low back pain without sciatica Take 1 tablet (50 mg) by mouth every 12 (twelve) hours if needed for severe pain for up to 28 days. 56 tablet 10/09/19 25 2024 Active naloxone (Narcan) 4 mg/0.1 mL nasal sprayIndication s:Chronic bilateral low back pain without sciatica Administer 1 spray (4 mg) into affected nostril(s) if needed for opioid reversal. May repeat every 2-3 minutes if needed, alternating nostrils, until medical assistance becomes available. 2 each 3 10/09/19 25 2025 Active lisinopril 10 MG tablet TAKE 1 TABLET BY MOUTH EVERY EVENING 90 tablet 1 02/13/20 24 2024 Discontinued montelukast (Singulair) 10 MG tabletIndicatio ns:Uncomplicate d asthma, unspecified asthma severity, unspecified whether persistent TAKE 1 TABLET BY MOUTH IN THE MORNING 30 tablet 1 07/01/202024 Discontinued Active Problems Problem Noted Date Diagnosed [...] Q 12hrs Patient will be contacted by [facility] nurse Tobacco dependence syndrome 06/04/2015 Microalbuminuria 06/23/2014 [...] emergency department for further evaluation, case presented [facility], patient will go by ambulance Acute upper respiratory infection 11/02/2022 02/16/2023 Mild intermittent asthma 04/02/2018 Obesity (BMI 30-39.9) 04/02/20182022 Schizoaffective disorder, bipolar type 03/13/2017 02/16/2023 Primary osteoarthritis of left knee 01/30/2017 02/16/2023 Encounters Date Type Department Care Team Description 10/09/2024 10:00 AM EST Clinical Support [facility] [address] [place] [address] 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 RN Chronic bilateral low back pain without sciatica (Primary Dx) 10/09/2024 Telephone [facility] [address] [place] [address] 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 RN UTOX Pos MTD 10/09/2024 Orders Only [facility] [address] [place] [address] Brenna Liriano MD Type 2 diabetes mellitus with hyperglycemia, without long-term current use of insulin ([facility]) (Primary Dx); Chronic schizoaffective schizophrenia ([facility]) 10/09/2024 Refill [facility] [address] [place] [address] 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 RN Chronic bilateral low back pain without sciatica (Primary Dx) 10/09/2024 Travel 10/09/2024 Telephone [facility] [address] [place] [address] 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 RN Recommend [facility] Tier 2 10/07/2024 Telephone [facility] [address] [place] [address] Brenna Liriano MD Med Refill 10/03/2024 Refill [facility] [address] [place] [address] Brenna Liriano MD Primary osteoarthritis of both knees; Chronic bilateral low back pain without sciatica 09/30/2024 Refill [facility] [address] [place] [address] Brenna Liriano MD Uncomplicated asthma, unspecified asthma severity, unspecified whether persistent 09/30/2024 Refill [facility] [address] [place] [phone] Brenna Liriano MD 09/18/[address] [address] Juanita Barragan [place] OCTOBER RECALL 09/02/2024 Refill [facility] [address] [place] [address] Brenna Liriano MD Gastroesophageal reflux disease, unspecified whether esophagitis present 09/01/2024 Refill [facility] [address] [place] [address] Brenna Liriano MD Asthma, unspecified asthma severity, unspecified whether complicated, unspecified whether persistent 08/14/[address] [address] Juanita Barragan [place] SEP RECALL 07/21/2024 Orders Only GENERIC EXTERNAL DATA DEPARTMENT Provider, Generic External Data 07/15/2024 1:15 PM EST Office Visit [address] [address] Brenna Liriano MD Primary osteoarthritis of both [...] Description 10/16/2024 9:00 AM EST Medication Management [address] [address] 01/06/2025 10:00 AM EDT Clinical Support [address] [address] 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, GUILLE Health Maintenance Due Date Last Done Comments [...] Chronic bilateral low back pain without sciatica FACTOR XI ACTIVITY, CLOTTING Routine 07/21/2024 2:41 [...] Recently Relevant to Health Maintenance Results * (ABNORMAL) POCT BANG-14 Urine Drug Screen (10/09/2024 10:43 AM EST) Methadone Screen, Urine Positive Urine Urine specimen obtained by clean catch procedure / Unknown 10/09/2024 10:43 AM EST Avelina Gannon RN - 10/09/2024 10:43 AM EST UTOX cup Lot#[id number] Exp. 04/08/26 Internal Pass Control us Brenna Brower MD POINT OF CARE TEST EN TER/EDIT ORDERABLES Final Result * von Willebrand Factor Antigen (07/21/2024 2:41 PM EST) Von Willebrand Factor Antigen 127 50 - 217 % [facility] 07/21/2024 2:41 PM EST 07/21/2024 2:41 PM EST us Generic External Data Provider LAB BLOOD ORDERAB LES Final Result Performing Organization Address [facility]/ZIP Co de Phone Number [facility] [address] [place] [phone] * von Willebrand Disease Panel without Collagen Binding Assay (CBA) (07/21/2024 2:41 PM EST) Factor VIII Activity, Clotting [facility] Comment:DUPLICATE Partial Thromboplastin Time, Activated 30 23 - 32 sec [facility] Comment:This test has not be en validated for monitoringunfractionated heparin therapy. For testing thatis validated for this type of therapy, please referto the Heparin Anti-Xa assay (test code 86657).For additional information, please refer tohttp://education.Poup/faq/BYE831(This link is being provided for informational/educational purposes only.) Von Willebrand Factor Antigen TNP [facility] Comment:DUPLICATE Von Willebrand Ag, Multimeric TNP [facility] Comment:DUPLICATE Comment see note [facility] Comment:Normal von Willebran d Evaluation Ristocetin Cofactor 124 42 - 200 % normal [facility] 07/21/2024 2:41 PM EST 07/21/2024 2:41 PM EST us Generic External Data Provider LAB BLOOD ORDERAB LES Final Result Performing Organization Address City/[facility]/ZIP Co de Phone Number [facility] [address] [place] [phone] * (ABNORMAL) CBC auto differential (07/21/2024 2:41 PM EST) White Blood Count 8.7 4.8 - 10.8 X10*3/uL [facility] Red Blood Count 4.31 4.20 - 5.50 X10*6/uL [facility] Hemoglobin 9.4(L) 12.0 - 16.0 g/dl [facility] Hematocrit 32.2(L) 37.0 - 47.0 % [facility] Mean Corpuscular Volume 74.7(L) 80.0 - 98.0 fL [facility] Mean Corpuscular Hemoglobin 21.8(L) 27.0 - 33.0 pg [facility] Mean Corpuscular HGB Conc 29.2(L) 31.0 - 35.0 g/dl [facility] Red Cell Distribution Width 21.2(H) 11.0 - 16.0 % [facility] Platelet Count 380 160 - 400 X10*3/uL [facility] Mean Platelet Volume 10.9 9.4 - 12.3 fL [facility] Neutrophils Percent Auto 68.3 45 - 73 % [facility] Imm Gran Pct Auto 0.3 0.0 - 0.4 % [facility] Lymphocytes Percent Auto 22.3 20 - 40 % [facility] Monocytes Percent Auto 8.0 2 - 11 % [facility] Eosinophils Percent Auto 0.9 0 - 4 % [facility] Basophils Percent Auto 0.2 0 - 2 % [facility] NRBC Pct Auto 0.0 0.0 - 0.2 /100WBC [facility] Neutrophils Absolute Auto 6.0 2.0 - 8.3 x10*3/uL [facility] Imm Gran Abs Auto 0.03 0.00 - 0.03 X10*3/uL [facility] Lymphocytes Absolute Auto 2.0 1.2 - 4.9 X10*3/uL [facility] Monocytes Absolute Auto 0.7 0.1 - 1.2 X10*3/uL [facility] Eosinophils Absolute Auto 0.1 0.0 - 0.4 X10*3/uL [facility] Basophils Absolute Auto 0.0 0.0 - 0.2 X10*3/uL [facility] NRBC Abs Auto 0.000 0.0 - 0.012 X10*3/uL [facility] Blood Venous blood specimen / Unknown 07/21/2024 2:41 PM EST 07/21/2024 2:41 PM EST us Brenna Brower MD LAB BLOOD ORDERABLES Final Result Performing Organization Address [facility]/ZIP Co de Phone Number [facility] [address] [place] [phone] * von Willebrand Antigen, Multimeric (07/21/2024 2:41 PM EST) Von Willebrand Ag, Multimeric see note [facility] Comment:Normal distribution of von Willebrand Factor antigenmultimers.von Willebrand Factor multimer reviewed by: Giovanna Childers, Ph.D.This test was developed and its analytical performancecharacteristics have been determined by [employer] [place], [place]. It hasnot been cleared or approved by the U.S. Food and DrugAdministration. This assay has been validated pursuantto the CLIA regulations and is used for clinicalpurposes.THIS TEST WAS PERFORMED AT:[facility] [place] [address]HXUMWIHELISEO DINH MD,PHD 07/21/2024 2:41 PM EST 07/21/2024 2:41 PM EST us Generic External Data Provider LAB BLOOD ORDERAB LES Final Result Performing Organization Address [facility] Co de Phone Number [facility] [address] [place] [phone] * (ABNORMAL) Mixing Study (07/21/2024 2:41 PM EST) Prothrombin Time 11.3 9.0 - 11.5 sec [facility] Comment:For additional infor dasia, please refer tohttp://education.Serveron/faq/GOR426(This link is being provided for informational/educationalpurposes only.)THIS TEST WAS PERFORMED AT:[employer]/[facility] [id number] [place] [address]IDAEYVALENTINA GONG MD,PHD,BEATRICE Pt Mix TNP [facility] Ptt La 44(A) < OR = 40 sec [facility] Comment:THIS TEST WAS PERFOR MED AT:[employer] [id number] [place] [address]IQVBYVALENTINA GONG MD,PHD,BEATRICE PTT-LA Mix NOT CORRECTED [facility] Comment:THIS TEST WAS PERFOR MED AT:[employer] [id number] [place] [address]GOFDDVALENTINA GONG MD,PHD,BEATRICE Incubated Ptt La Mix TNP [facility] Mixing Study Interpretation SEE NOTE [facility] Comment:Results are consiste nt with an immediate acting inhibitor.Possibilities include specific factor inhibitors, LupusAnticoagulant, Fibrino(misa)lysis, heparin contamination orthrombin inhibitors. 07/21/2024 2:41 PM EST 07/21/2024 2:41 PM EST us Generic External Data Provider LAB BLOOD ORDERAB LES Final Result [facility] [address] [place] [phone] * (ABNORMAL) Partial Thromboplastin Time, Activated (APTT) (07/21/2024 2:41 PM EST) Partial Thromboplastin Time 44.4(H) 26.0 - 36.8 SEC [facility] Comment:For information rega rding the monitoring of direct thrombininhibitors, please refer to Pharmacy. 07/21/2024 2:41 PM EST 07/21/2024 2:41 PM EST us Generic External Data Provider LAB BLOOD ORDERAB LES Final Result Performing Organization Address [facility] Co de Phone Number [facility] [address] [place] [phone] * Prothrombin Time-INR (07/21/2024 2:41 PM EST) Prothrombin Time 11.1 10.9 - 12.4 SEC [facility] INTERNATIONAL NORM RATIO 1.0 0.9 - 1.1 [facility] Comment:INTERNATIONAL NORMAL IZED RATIO (INR) REFERENCE [...] ORDERAB LES Final Result Performing Organization Address [facility] Co de Phone Number [facility] [address] [place] [phone] * Factor XI Activity, Clotting (07/21/2024 2:41 PM EST) Factor XI Activity, Clotting 124 65 - 150 % [facility] Comment:Units: % of normalTH IS TEST WAS PERFORMED AT:[employer]/[id number] [place] [address]IVHPYZAELISEO DINH MD,PHD 07/21/2024 2:41 PM EST 07/21/2024 2:41 PM EST Generic External Data Provider LAB BLOOD ORDERAB LES Final Result Performing Organization Address [facility] Phone Number [facility] [address] [place] [phone] * Factor IX Activity, Clotting (07/21/2024 2:41 PM EST) Factor IX Activity, Clotting 113 60 - 160 % normal [facility] Comment:THIS TEST WAS PERFOR MED AT:[employer]/[facility] [id number] [place] [address]EPMWEPRELISEO DINH MD,PHD 07/21/2024 2:41 PM EST 07/21/2024 2:41 PM EST Generic External Data Provider LAB BLOOD ORDERAB LES Final Result Performing Organization Address [facility] Number [facility] [address] [place] [phone] * Factor 8 activity (07/21/2024 2:41 PM EST) Factor VIII Activity, Clotting 136 50 - 180 % normal [facility] Comment:For additional infor mation please refer to:http://education.Serveron/faq/QFB807(This link is being provided for informational/educational purposes only.) 07/21/2024 2:41 PM EST 07/21/2024 2:41 PM EST Generic External Data Provider LAB BLOOD ORDERAB LES Final Result Performing Organization Address [facility] Co de Phone Number [facility] [address] [place] [phone] * Factor 7 activity (07/21/2024 2:41 PM EST) Factor VIII Activity, Clotting 134 60 - 150 % normal [facility] Comment:THIS TEST WAS PERFOR MED AT:[employer]/CHANEL [id number] [place] [address]BFZCBEGELISEO DINH MD,PHD 07/21/2024 2:41 PM EST 07/21/2024 2:41 PM EST us Generic External Data Provider LAB BLOOD ORDERAB LES Final Result Performing Organization Address [facility] Phone Number [facility] [address] [place] [phone] * Ferritin (07/21/2024 2:41 PM EST) Pathologist [facility] Ferritin 15 10 - 250 ng/mL [facility] 07/21/2024 2:41 PM EST 07/21/2024 2:41 PM EST Generic External Data Provider LAB BLOOD ORDERAB LES Final Result Performing Organization Address [facility] Number [facility] [address] [place] [phone] * Ammonia, Plasma (07/21/2024 2:41 PM EST) Pathologist [facility] Ammonia (P) 37 13 - 55 umol/L [facility] 07/21/2024 2:41 PM EST 07/21/2024 2:41 PM EST Generic External Data Provider LAB BLOOD ORDERAB LES Final Result Performing Organization Address [facility] Phone Number [facility] [address] [place] [phone] * Comprehensive Metabolic Panel (07/21/2024 2:41 PM EST) Pathologist [facility] Sodium 141 135 - 145 mmol/L [facility] Potassium 4.7 3.3 - 5.1 mmol/L [facility] Comment:Slight Hemolysis.Int erpret result with caution. Chloride 102 96 - 108 mmol/L [facility] Carbon Dioxide 27 22 - 29 mmol/L [facility] Anion Gap 17 12 - 20 [facility] Urea Nitrogen (BUN) 11 9 - 16 mg/dL [facility] Creatinine, Serum 0.57 0.5 - 1.4 mg/dL [facility] Estimated Glomerular Filt Rate >60 [facility] Comment:Chronic Kidney Disea se: Estimated GFR < 60 mL/min/1.94i3Bjodax Kidney Disease: Estimated GFR < 15 mL/min/1.73m2 Glucose 98 60 - 115 mg/dL [facility] Calcium 9.6 8.4 - 10.2 mg/dL [facility] Bilirubin, Total 0.3 0.0 - 1.0 mg/dL [facility] Aspartate Amino Transferase 21 5 - 31 U/L [facility] Comment:Slight Hemolysis.Int erpret result with caution. Alanine Aminotransferase 11 0 - 31 U/L [facility] Total Protein 7.2 6.5 - 8.0 g/dL [facility] Albumin Level 4.0 3.5 - 5.0 g/dL [facility] Alkaline Phosphatase 86 39 - 117 U/L [facility] 07/21/2024 2:41 PM EST 07/21/2024 2:41 PM EST us Generic External Data Provider LAB BLOOD ORDERAB LES Final Result Performing Organization Address City/State/[facility] Co de Phone Number [facility] [address] [place] [phone] * (ABNORMAL) POCT HGB A1C (07/15/2024 1:36 PM EST) Hemoglobin A1C 6.0 4.0 - 6.0 % QC Media Lot # [id number] Lot# Expiration Date [id number] Blood 07/15/2024 1:36 PM EST us Brenna Brower MD POINT OF CARE TEST EN TER/EDIT ORDERABLES Final Result * POCT Glucose (07/15/2024 1:36 PM EST) Glucose Blood, POC 134 60 - 200 mg/dL [employer] Lot # [id number] Lot# Expiration Date [id number] Blood Capillary blood specimen / Unknown 07/15/2024 1:36 PM EST us Brenna Brower MD POINT OF CARE TEST EN TER/EDIT ORDERABLES Final Result * BI Mammogram Screening Tomosynthesis Bilateral (05/01/2024 3:00 PM EDT) Anatomical Region Laterality Modality Breast Bilateral Mammography 05/01/2024 3:00 PM EDT Narrative 05/15/2024 8:10 PM EDT ? [facility] ? [address] ?[place] [address] ? Mammography Report ? Signed ? Patient: Brenna Hope ?MR# ?? : [id number] ? : 1965 ?Acct:[id number] ? Age/Sex: 58 / F ?ADM Date: 05/01/24 ? Loc: HO.MAMMO ? Attending Dr: Brenna Brower MD ? Ordering Physician: Brenna Liriano MD ?Results: ?? 2Benign Findings ? Date of Service: 05/01/24 ?Follow Up: 1 Year From Orig ?? inal Mammogram ? Procedure(s): MM tomosynthesis screening BI ?? Accession Number(s): [id number] ? cc: Chata Brower,Brenna OLIVEIRA ? EXAMINATION: ?? MM SCREENING DIGITAL BREAST [...] by Siomara Myrick, DO in OV> ? 05/15/24 2007 ? DD/ 1500 ? TD/TT: 05/01/24 1521 ? Beam Press Operator: ? Procedure Note Orion, Rosa - 05/15/2024 [facility] [address] [place] [address] Dr. Small, DEREK [address] Mammography Report Signed Patient: Brenna Hope DMR# : [id number] : 1965Acct:[id number] Age/Sex: 58 / FADM Date: 05/01/24 Loc: HO.MAMMO Attending Dr: Brenna Brower MD Ordering Physician: Brenna Liriano MDResults: 2Benign Findings Date of Service: 05/01/24Follow Up: 1 Year From Orig ina Mammogram Procedure(s): MM tomosynthesis screening BI Accession Number(s): [id number] cc: Brenna Liriano MD EXAMINATION: MM SCREENING [...] Siomara Myrick DO in OV> 05/15/242006 DD/ 99 TD/TT: 05/01/24 1521 Beam Press Operator: us Brenna Brower MD IMG BI PROCEDURES Joe abdullahi Result - Final * (ABNORMAL) Lipid Panel with Reflex to Direct LDL (08/08/2023 11:13 AM EST) Triglycerides 106 <150 mg/dL [facility] Comment:Desirable Triglyceri de: less than 150 mg/dLBorderline High Triglyceride 150-199 mg/dLHigh Triglyceride: 200-499 mg/dLVery High Triglyceride: greater than or equal to 5OO mg/dL Cholesterol 203(H) <200 mg/dL [facility] Comment:Desirable Cholestero l: less than 200 mg/dLBorderline High Cholesterol: 200-239 mg/dLHigh Cholesterol: greater than 239 mg/dL LDL Cholesterol Calculated 135(H) <100 mg/dL [facility] Comment:Desirable LDL: less than 100 mg/dLNear Optimal/Above Optimal LDL: 110- 129 mg/dLBorderline High LDL: 130-159 mg/dLHigh LDL: 160-189 mg/dLVery High LDL: greater than or equal to 190 mg/dL HDL Cholesterol 47 >40 mg/dL [facility] Comment:Desirable HDL: great er than 40 mg/dL Note: This HDL assay may give artificially low results in patients with liver disease. Blood 08/08/2023 11:1 3 AM EST 08/08/2023 11:13 AM EST Nyla Browne MD LAB BLOOD ORDERABLES Fin al Result [facility] [address] [place] [phone] * HPV mRNA E6/E7 (03/21/2017 12:00 AM EDT) HPV mRNA E6/E7 Not Detected NOT DETECTED [facility] Comment: This test was performed using the APTIMA(R) HPV Assay ([employer] This assay detects E6/E7 viral messenger RNA (mRNA) from 14 high-risk HPV types (16,18,31,33,35,39,45,51, 52,56,58,59,66,68). For additional information please refer to: http://education.Quantum Secure.PreViser/faq/GLQ846s1 (This link is being provided for informational/ educational purposes only.) Test Performed by [employer], [employer] [facility], [address] [place] [address] Eliseo Dinh M.D., Ph.D., Director of Laboratories , [facility] [id number] Please note: ??Effective 05/01/2016, HPV testing will be performed using [employer]'s APTIMA test which targets mRNA. Detecting mRNA instead of DNA, as in older methods, offers significant improvements in specificity. 03/21/2017 Indira Estrada CNM HISTORICAL/NON ORDERABLE LABS Final Result [facility] Anywhere [address] from Last 3 Months or Most Recently Relevant to Health Maintenance Insurance [employer] Care Teams Fill Manager Relationship Specialty Start Date End Date Brenna Liriano MD [address] [place] [phone] PCP - General [facility]
[2024-10-09 18:27] LABS: Methadone Screen, Urine Not Detected (Not Detect)
== END 2024-10-09 18:14 | disposition home or self-care (01) ==
LOC: HO.HHCLNP 18:13
PROVIDERS: Visit Provider Internal Medicine
DX: M54.50 Low back pain, unspecified (principal); G89.29 Other chronic pain
CPT/HCPCS: 36415; 80307

== ENCOUNTER 2024-10-29 10:17 | Outpatient (REF) | payer MEDICAID, SELFPAY ==
[2024-10-29 10:30] LABS: MANUAL DIFF FLAG NO
[2024-10-29 11:49] LABS: Basophils Percent Auto 0.3 % (0-2); Eosinophils Absolute Auto 0.1 X10*3/uL (0.0-0.4); Eosinophils Percent Auto 1.3 % (0-4); Hematocrit 25.2 % (37.0-47.0); Imm Gran Abs Auto 0.07 X10*3/uL (0.00-0.03); Imm Gran Pct Auto 0.8 % (0.0-0.4); Lymphocytes Absolute Auto 2.2 X10*3/uL (1.2-4.9); Lymphocytes Percent Auto 24.7 % (20-40); Mean Corpuscular HGB Conc 27.4 g/dl (31.0-35.0); Mean Corpuscular Hemoglobin 18.9 pg (27.0-33.0); Mean Platelet Volume 11.4 fL (9.4-12.3); Monocytes Absolute Auto 0.6 X10*3/uL (0.1-1.2); Monocytes Percent Auto 6.7 % (2-11); NRBC Pct Auto 0.3 /100WBC (0.0-0.2); Neutrophils Absolute Auto 5.9 x10*3/uL (2.0-8.3); Neutrophils Percent Auto 66.2 % (45-73); Platelet Count 346 X10*3/uL (160-400); Red Blood Count 3.65 X10*6/uL (4.20-5.50); Red Cell Distribution Width 20.4 % (11.0-16.0); White Blood Count 8.9 X10*3/uL (4.8-10.8)
--- OUTSIDE RECORDS SUMMARY | 2024-10-29 11:49 | XMS_ITS | Encounter Summary ---
Author Organization [employer] Address [address] [facility] [address]t [place] [address] Care Team Providers Care Electrical Linesworker Name Role Phone Brenna Liriano MD Primary Care Provide r Reason for Visit * Reason Comments Med Refill Encounter Details Date Type Department Care Team ([facility] st Contact Info) Description 09/14/2023 Refill [facility] [address] [place], [place] [phone] Brenna Liriano MD [address] [place], [place] [phone] Constipation, unspecified constipation type Social History Tobacco [...] Care Team (Late st Contact Info) Description 10/30/2024 11:00 AM EDT Medication Management [address] [address] 01/06/2025 10:00 AM EDT Clinical Support [address] [address] 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 RN documented as of this encounter Visit Diagnoses Diagnosis Constipation, unspecified constipation type documented in this encounter Care Teams Electrical Linesworker Relationship Specialty Start Date End Date Brenna Liriano MD [address] [place] [phone] PCP - General Family Medicine 07/01/19 [place] [facility] 06/26/24 documented as of this encounter
--- OUTSIDE RECORDS SUMMARY | 2024-10-29 11:49 | XMS_ITS | Encounter Summary ---
Author Organization [employer] Address [address] [facility] 7[address] [place] [address] Care Team Providers Care Systems Support Officer Name Role Phone Brenna Liriano MD Primary Care Provide r Reason for Visit * Reason Comments Med Refill Encounter Details Date Type Department Care Team ([facility] st Contact Info) Description 06/12/2023 Refill [facility] [address] [place], [place] [phone] Brenna Liriano MD [address] [place], [place] [phone] Constipation, unspecified constipation type Social History Tobacco [...] Description 10/30/2024 11:00 AM EDT Medication Management [address] [address] 01/06/2025 10:00 AM EDT Clinical Support [address] [address] 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 RN documented as of this encounter Visit Diagnoses Diagnosis Constipation, unspecified constipation type documented in this encounter Care Teams Systems Support Officer Relationship Specialty Start Date End Date Brenna Liriano MD [address] [place] [phone] PCP - General Family Medicine 07/01/19 [facility] 06/26/24 documented as of this encounter
--- OUTSIDE RECORDS SUMMARY | 2024-10-29 11:49 | XMS_ITS | Encounter Summary ---
Author Organization 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 on 11/06 and would like to reschedule documented in this encounter Plan of Treatment Upcoming Encounters Date Type Department Care Team (Late st Contact Info) Description 10/30/2024 11:00 AM EDT Medication Management [address] [address] 01/06/2025 10:00 AM EDT Clinical Support [address] [address] 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, GUILLE documented as of this encounter Visit Diagnoses Not on filedocumented in this encounter Care Teams Evening Sitter Relationship Specialty Start Date End Date Brenna Liriano MD [address] [place] [address] PCP - General Family Medicine 07/01/19 [place] A 06/26/24 documented as of this encounter
--- OUTSIDE RECORDS SUMMARY | 2024-10-29 11:50 | XMS_ITS | Encounter Summary ---
Author Organization [employer] Address [address] [facility] 7t [place] [address] Care Team Providers Care Nuclear Medicine Supervisor Name Role Phone Brenna Liriano MD Primary Care Provide r Reason for Visit * Reason Comments Med Refill Encounter Details Date Type Department Care Team ([facility] st Contact Info) Description 09/30/2024 Refill [facility] 230 [place], [place] [phone] Brenna Liriano MD [address] [place], [place] [phone] Social History Tobacco Use Types Packs/Day Years [...] t he electric, gas, oil or water [employer] threatened to shut off services in your [...] Description 10/30/2024 11:00 AM EDT Medication Management [address] [address] 01/06/2025 10:00 AM EDT Clinical Support [address] [address] 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 RN documented as of this encounter Visit Diagnoses Not on filedocumented in this encounter Care Teams Nuclear Medicine Supervisor Relationship Specialty Start Date End Date Brenna Liriano MD [address] [place] [address] PCP - General Family Medicine 07/01/19 [place] GONZALEZA 06/26/24 documented as of this encounter
--- OUTSIDE RECORDS SUMMARY | 2024-10-29 11:50 | XMS_ITS | Clinical Summary ---
Author Organization [employer] Address [address] [place] [address] 7t [place] [address] Care Team Providers Care Barman Name Role Phone Brenna Liriano MD Primary [...] in the evening, and at bedtime. Active polyethylene glycol, PEG, 3350 (Miralax) 17 [...] 2 each 3 10/09/19 25 2025 Active atorvastatin (Lipitor) 40 MG tabletIndicatio ns:Essential hypertension TAKE 1 TABLET BY MOUTH IN THE MORNING 90 tablet 1 10/29/19 25 Active atorvastatin (Lipitor) 40 MG tabletIndicatio ns:Essential hypertension Take 1 tablet (40 mg) by mouth in the morning. 30 tablet 11 10/09/19 24 2024 Discontinued lisinopril 10 MG tablet TAKE 1 TABLET [...] PM EST): No hallucinations at this time. JAYA w/ [facility] [facility], see him to make [...] Q 12hrs Patient will be contacted by MAILROOM ASSISTANT nurse Tobacco dependence syndrome 06/04/2015 Microalbuminuria 06/23/2014 [...] emergency department for further evaluation, [place] [facility] Acute upper respiratory infection 11/02/2022 02/16/2023 Mild intermittent asthma 04/02/2018 Obesity (BMI 30-39.9) 04/02/20182022 Schizoaffective disorder, bipolar type 03/13/2017 02/16/2023 Primary osteoarthritis of left knee 01/30/2017 02/16/2023 Encounters Date Type Department Care Team Description 10/27/2024 Refill [facility] MEDICINE [address] [place], [place] [address] Brenna Lirinao MD Essential hypertension 10/20/2024 Telephone [facility] MED[facility]INE [address] [place], [place] [address] Brenna Liriano MD 10/09/2024 10:00 AM EST Clinical Support [facility]INE [address] [place], [place] [address] 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 RN Chronic bilateral low back pain without sciatica (Primary Dx) 10/09/2024 Telephone [facility] MEDICINE [address] [place] [address] 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 RN UTOX Pos MTD 10/09/2024 Orders Only [facility]INE [address] [place], [place] [address] Brenna Liriano MD Type 2 diabetes mellitus with hyperglycemia, without long-term current use of insulin ([facility]) (Primary Dx); Chronic schizoaffective schizophrenia ([facility]) 10/09/2024 Refill [facility] [address] [place] [address] 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, fitness management director bilateral low back pain without sciatica (Primary Dx) 10/09/2024 Travel 10/09/2024 Telephone [facility] MED[facility]INE [address] [place], [place] [address] 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 RN Recommend MAILROOM ASSISTANT Tier 2 10/07/2024 Telephone [facility] MED[facility]INE [address] [place] [address] Brenna Liriano MD Med Refill 10/03/2024 Refill [facility] [address] [place] [address] Brenna Liriano MD Primary osteoarthritis of both knees; Chronic bilateral low back pain without sciatica 09/30/2024 Refill [facility] [address] [place] [address] Brenna Liriano MD Uncomplicated asthma, unspecified asthma severity, unspecified whether persistent 09/30/2024 Refill [facility] [address] [place] [address] Brenna Liriano MD 09/18/2024 Telephone [facility]INE [address] [place] [address] Juanita Barragan MA OCTOBER RECALL 09/02/2024 Refill [facility] [address] [place] [address] Brenna Liriano MD Gastroesophageal reflux disease, unspecified whether esophagitis present 09/01/2024 Refill [facility] [address] [place] [address] Brenna Liriano MD Asthma, unspecified asthma severity, unspecified whether complicated, unspecified whether persistent 08/14/2024 Telephone [facility]INE [address] [place] [address] Juanita Barragan MA SEP RECALL from Last 3 Months Immunizations Name Administration [...] Description 10/30/2024 11:00 AM EDT Medication Management [address] [address] 01/06/2025 10:00 AM EDT Clinical Support [address] [address] 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, GUILLE Health Maintenance Due Date Last Done Comments CT Colonography 1965 Colonoscopy 1965 Colorectal Cancer Screening 1965 FIT DNA/Cologuard 1965 FIT 1965 FOBT 1965 HIV Screening 1965 Sigmoidoscopy 1965 Diabetes: Foot Exam 1975 Eye Exam 1975 Alcohol/Substance Use Screening 1977 Hepatitis C Screening 1983 Diabetes: Urine Protein Screening 1984 Pap Smear 1986 Zoster Vaccines (1 of 2) 2015 Cervical Cancer Screening 03/21/2022 HPV/Cotest 03/21/2022 03/21/2017 Depression Screening 12/13/2023 12/12/2022, 12/13/19 23 COVID-19 Vaccine ( season) 2024 01/30/2022, 01/26/2021, 12/23/2020 Influenza Vaccine (#1) 2024 , 06/21/2022, 07/11/2021, Additional history exists Lipid Panel 08/08/2024 08/08/2023 SDOH Screening 09/28/2024 09/28/2023 Diabetes: Hemoglobin A1C 01/12/202507/15/ 024, 10/09/2023, 12/12/2022 Mammogram 05/01/2025 05/01/2024, 0912/2022, 04/14/2022, Additional history exists Tobacco Screening 07/15/2025 [...] on patient's age to complete this topic Hepatitis A Vaccines Aged Out No long er eligible based on patient's age to complete [...] Chronic bilateral low back pain without sciatica METHADONE SCREEN, URINE Routine 10/09/2024 10:00 AM EST Type 2 diabetes mellitus with hyperglycemia, without long-term current use of insulin ([facility]) POCT GLYCATED HEMOGLOBIN, TOTAL Routine 07/15/2024 1:36 PM EST Type 2 diabetes mellitus with hyperglycemia, without long-term current use of insulin ([facility]) BI MAMMOGRAM SCREENING TOMOSYNTHESIS BILATERAL Routine 05/01/2024 [...] Unknown 10/09/2024 10:43 AM EST Narrative 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 RN - 10/09/2024 10:43 AM EST UTOX cup Lot#[id number] Exp. 04/08/26 Internal Pass Control Brenna Brower MD POINT OF CARE TEST EN TER/EDIT ORDERABLES Final Result * Drug Monitoring, Methadone Metabolite, Screen, Urine (10/09/2024 10:00 AM EST) Methadone Screen, Urine Not Detected Not Detect ng/mL [facility] Comment:Methadone cut-off is 300 ng/mL.Positive results are unconfirmed and should not be used fornon-medical purposes. 10/09/2024 10:0 0 AM EST 10/09/2024 6:14 PM EST Brenna Brower MD LAB URINE ORDERABLES Final Result [facility] [address] [place] [phone] * (ABNORMAL) POCT HGB A1C (07/15/2024 1:36 PM EST) Hemoglobin A1C 6.0 4.0 - 6.0 % QC Media Lot # [id number] Lot# Expiration Date [id number] Blood 07/15/2024 1:36 PM EST Brenna Brower MD POINT OF CARE TEST EN TER/EDIT ORDERABLES Final Result * BI Mammogram Screening Tomosynthesis Bilateral (05/01/2024 3:00 PM EDT) Anatomical Region Laterality Modality Breast Bilateral Mammography 05/01/2024 3:00 PM EDT Narrative 05/15/2024 8:10 PM EDT ? [facility] ? [address] ?[place] [address] ? Mammography Report ? Signed ? Patient: Tang Tayla,Karina ?MR# ?? : [id number] ? : 1965 ?Acct:[id number] ? Age/Sex: 58 / F ?ADM Date: 05/01/24 ? Loc: HO.MAMMO ? Attending Dr: Brenna Brower MD ? Ordering Physician: Brenna Liriano MD ?Results: ?? 2Benign Findings ? Date of Service: 05/01/24 ?Follow Up: 1 Year From Orig ?? inal Mammogram ? Procedure(s): MM tomosynthesis screening BI ?? Accession Number(s): [id number] ? cc: Brenna Liriano MD ? EXAMINATION: [...] DD/ 1500 ? TD/TT: 05/01/24 1521 ? Sales And Marketing Associate: ? Procedure Note Orion, Image - 05/15/2024 [facility] [address] [place] [address] Mammography Report Signed Patient: Brenna Hope DMR# : [id number] : 1965Acct:[id number] Age/Sex: 58 / FADM Date: 05/01/24 Loc: HO.MAMMO Attending Dr: Brenna Brower MD Ordering Physician: Brenna Liriano MDResults: 2Benign Findings Date of Service: 05/01/24Follow Up: 1 Year From Orig inal Mammogram Procedure(s): MM tomosynthesis screening BI Accession Number(s): [id number] cc: Brenna Liriano MD EXAMINATION: MM SCREENING [...] OV> 05/15/242006 DD/ 99 TD/TT: 05/01/24 1521 Sales And Marketing Associate: us Brenna Brower MD IMG BI PROCEDURES Joe abdullahi Result - Final * (ABNORMAL) Lipid Panel with Reflex to Direct LDL (08/08/2023 11:13 AM EST) Triglycerides 106 <150 mg/dL [facility] Comment:Desirable Triglyceri de: less than 150 mg/dLBorderline High Triglyceride 150-199 mg/dLHigh Triglyceride: 200-499 mg/dLVery High Triglyceride: greater than or equal to 5OO mg/dL Cholesterol 203(H) <200 mg/dL [facility] Comment:Desirable Cholestero l: less than 200 mg/dLBorderline High Cholesterol: 200-239 mg/dLHigh Cholesterol: greater than 239 mg/dL LDL Cholesterol Calculated 135(H) <100 mg/dL [facility] Comment:Desirable LDL: less than 100 mg/dLNear Optimal/Above Optimal LDL: 110- 129 mg/dLBorderline High LDL: 130-159 mg/dLHigh LDL: 160-189 mg/dLVery High LDL: greater than or equal to 190 mg/dL HDL Cholesterol 47 >40 mg/dL [facility] Comment:Desirable HDL: great er than 40 mg/dL Note: This HDL assay may give artificially low results in patients with liver disease. Blood 08/08/2023 11:1 3 AM EST 08/08/2023 11:13 AM EST us Nyla Browne MD LAB BLOOD ORDERABLES Fin al Result [facility] [address] [place] [address] [phone] * HPV mRNA E6/E7 (03/21/2017 12:00 AM EDT) HPV mRNA E6/E7 Not Detected NOT DETECTED [facility] Comment: This test was performed using the APTIMA(R) HPV Assay ([employer] This assay detects E6/E7 viral messenger RNA (mRNA) from 14 high-risk HPV types (16,18,31,33,35,39,45,51, 52,56,58,59,66,68). For additional information please refer to: http://education.Obatech/faq/KYI929m6 (This link is being provided for informational/ educational purposes only.) Test Performed by [facility] [facility], [address] [place] [phone] Eliseo Sierra M.D., Ph.D., Director of Laboratories , [facility] [id number] Please note: ??Effective 05/01/2016, HPV testing will be performed using [employer] APTIMA test which targets mRNA. Detecting mRNA instead of DNA, as in older methods, offers significant improvements in specificity. 03/21/2017 us Indira Estrada CNM HISTORICAL/NON ORDERABLE LABS Final Result Performing Organization Address City/[facility]/ZIP Co de Phone Number [facility] [address] from Last 3 Months or Most Recently Relevant to Health Maintenance Insurance [facility] C3 Care Teams Barman Relationship Specialty Start Date End Date Brenna Liriano MD [address] [place] [phone] PCP - General Family Medicine [facility]
--- OUTSIDE RECORDS SUMMARY | 2024-10-29 11:50 | XMS_ITS | Clinical Summary ---
Author Organization [facility] Address 175 [place] [address] Phone Care Team Providers Care Newspaper Correspondent Name Role Phone Brenna Liriano MD Primary [...] with anxiety 02/03/2019 Overview (07/02/2024): Admission to [facility] 10/24/2018 for crisis and depression. HTN (hypertension) 02/03/2019 Microalbuminuria 02/03/2019 Obesity 02/03/2019 Onychomycosis 02/03/2019 Osteoarthritis 02/03/2019 Overview (07/02/2024): Knees, bilaterally. Schizoaffective disorder 02/03/2019 Type 2 diabetes mellitus with renal manifestatio ns 02/03/2019 Encounters Date Type Department Care Team Description 08/05/2024 2:30 PM EST Office Visit Orthopedic Surgery - [address] [phone] Carmelo Craig, DPM Tinea pedis [...] DX:Depre ssion with anxiety; COMMENT: Admission to [facility] 10/24/2018 for crisis and depression. Asthma 02/03/2019 DX:Asthma Onychomycosis 02/03/2019 DX:Onychomycosis Osteoarthritis 02/03/2019 DX:Osteoarthriti s; COMMENT: knees, bilaterally. HTN (hypertension) 02/03/2019 DX:HTN (hyper tension) COPD (chronic obstructive pu lmonary disease) ([facility]) 02/03/2019 DX:COPD (chronic obstructive pulmonary disease) ([facility]) Schizoaffective disorder ([facility]) 02/03/2019 DX:Schizoaffective disorder ([facility]) Microalbuminuria 02/03/2019 DX:Microalbumin uria Type 2 diabetes mellitus wit h renal manifestations ([facility]) 02/03/2019 DX:Type 2 diabetes mellitus with renal manifestations ([facility]) Tobacco use 02/03/2019 DX:Tobacco use Chronic [...] PM EDT Office Visit Orthopedic Surgery - [place] [address] [phone] Carmelo Craig, DPM [address] [address] Health Maintenance Due Date Last Done Comments [...] topic Insurance MEDICAID - [place] Care Teams Newspaper Correspondent Relationship Specialty Start Date End Date Brenna Liriano MD [address] [place] [address] [place] [phone] PCP - General 08/30/23
--- OUTSIDE RECORDS SUMMARY | 2024-10-29 11:50 | XMS_ITS | Encounter Summary ---
Author Organization [employer] Address [address] [place] [address] 7t [place] [address] Care Team Providers Care Manual Plate Filler Name Role Phone Brenna Liriano MD Primary Care Provide r Encounter Details Date Type Department Care Team ([facility] Contact Info) Description 02/08/2023 Orders Only [facility] MED & PEDS [address] [place], [place] [phone] Enma Sparks LPN Social History Tobacco Use [...] Description 10/30/2024 11:00 AM EDT Medication Management [address] [address] 01/06/2025 10:00 AM EDT Clinical Support [address] [address] 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 RN documented as of this encounter Visit Diagnoses Not on filedocumented in this encounter Care Teams Manual Plate Filler Relationship Specialty Start Date End Date Brenna Liriano MD [address] [facility] [place] [address] PCP - General Family Medicine 07/01/19 [place] CHO 06/26/24 documented as of this encounter
--- OUTSIDE RECORDS SUMMARY | 2024-10-29 11:50 | XMS_ITS | Encounter Summary ---
Author Organization [employer] Address 75 [facility] 7t [place] [address] Care Team Providers Care Mass Spectroscopist Name Role Phone Brenna Liriano MD Primary Care Provide r Reason for Visit * Reason Comments Med Refill Encounter Details Date Type Department Care Team ([facility] st Contact Info) Description 07/24/2023 Refill [facility] MED & PEDS [address] [place], [place] [phone] Brenna Liriano MD 230 [place] [address] Social History Tobacco Use Types Packs/Day Years [...] Description 10/30/2024 11:00 AM EDT Medication Management [address] [address] 01/06/2025 10:00 AM EDT Clinical Support [address] [address] 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 RN documented as of this encounter Visit Diagnoses Not on filedocumented in this encounter Care Teams Mass Spectroscopist Relationship Specialty Start Date End Date Brenna Liriano MD [address] [place] [address] PCP - General Family Medicine 07/01/19 [facility] 06/26/24 documented as of this encounter
--- OUTSIDE RECORDS SUMMARY | 2024-10-29 11:50 | XMS_ITS | Encounter Summary ---
Author Organization [employer] Address [address] [facility] 7t [place] [address] Care Team Providers Care It Risk And Assurance Manager Name Role Phone Brenna Liriano MD Primary Care Provide r Reason for Visit * Reason Onset Date Comments Recommend MEDICAL I D SALES Tier 2 10/09/2024 Encounter Details Date Type Department Care Team ([facility] st Contact Info) Description 10/09/2024 Telephone [facility] MEDICINE [address] [place] [address] 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, GUILLE Recommend MEDICAL I D SALES Tier 2 Social History Tobacco Use Types [...] RN - 10/09/2024 7:30 AM EST What MEDICAL I D SALES Tier would you like this patient to be? I recommend Tier 2, please let me know if you agree or would rather patient be in another MEDICAL I D SALES Tier. Tier 1 = HIGH RISK, Monthly MEDICAL I D SALES visits Tier 2 = MODerate RISK, Q3 Month visits Tier 3 = LOW RISK = Q4-6 month visits documented in this encounter Plan of Treatment Upcoming Encounters Date Type Department Care Team (Late st Contact Info) Description 10/30/2024 11:00 AM EDT Medication Management [address] [address] 01/06/2025 10:00 AM EDT Clinical Support [address] [address] 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, RN documented as of this encounter Visit Diagnoses Not on filedocumented in this encounter Care Teams It Risk And Assurance Manager Relationship Specialty Start Date End Date Brenna Liriano MD [address] [place] [address] PCP - General Family Medicine 07/01/19 [place] A 06/26/24 documented as of this encounter
--- OUTSIDE RECORDS SUMMARY | 2024-10-29 11:50 | XMS_ITS | Encounter Summary ---
Author Organization [employer] Address [address] [place] [address] 7t [place] [address] Care Team Providers Care Form Grader Operator Name Role Phone Brenna Liriano MD Primary Care Provide r Reason for Visit * Reason Onset Date Comments Hospital Follow-up 06/25/2024 Encounter Details Date Type Department Care Team ([facility] Contact Info) Description 06/25/2024 Telephone [facility] MEDICINE [address] [place], [place] [phone] Brenna Liriano MD 230 [place], [place] [phone] Hospital Follow-up Social History Tobacco Use Types [...] from pt requesting a HDF appt. [facility] [facility] [place] of admission: Asthma Discharge date: 06/18/24 Diagnosed: 06/24/24 *Send message to [place] Clinical Care Coordinators documented in this encounter Plan of Treatment Upcoming Encounters Date Type Department Care Team (Late st Contact Info) Description 10/30/2024 11:00 AM EDT Medication Management [address] [address] 01/06/2025 10:00 AM EDT Clinical Support [facility] MEDICINE [address] [place] [address] 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, GUILLE documented as of this encounter Visit Diagnoses Not on filedocumented in this encounter Care Teams Form Grader Operator Relationship Specialty Start Date End Date Brenna Liriano MD [address] [place] [address] PCP - General Family Medicine 07/01[facility] documented as of this encounter
--- OUTSIDE RECORDS SUMMARY | 2024-10-29 11:50 | XMS_ITS | Encounter Summary ---
Author Organization [facility] Address [address] [place] [address] 7t [place] [address] Care Team Providers Care Broadcast News Producer Name Role Phone Brenna Liriano MD Primary Care Provide r Encounter Details Date Type Department Care Team ([facility] Contact Info) Description 02/12/2023 Orders Only [address] [address] Kristen Hernandez LPN Social History [...] Department Care Team (Late Contact Info) Description 10/30/2024 11:00 AM EDT Medication Management [address] [address] 01/06/2025 10:00 AM EDT Clinical Support [address] [address] 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 RN documented as of this encounter Visit Diagnoses Not on filedocumented in this encounter Care Teams Broadcast News Producer Relationship Specialty Start Date End Date Brenna Liriano MD [address] [place] [address] [place] [address] PCP - General Family Medicine 07/01/19 [place] [facility] 06/26/24 documented as of this encounter
--- OUTSIDE RECORDS SUMMARY | 2024-10-29 11:50 | XMS_ITS | Encounter Summary ---
Author Organization [employer] Address 75 [facility] 7t [place] [address] Care Team Providers Care Food Selector Name Role Phone Brenna Liriano MD Primary Care Provide r Reason for Visit * Reason Onset Date Comments Pt and cotton jammer want [facility] pharmacy [facility] Med Refill 10/09/2024 CITY MAINTENANCE MANAGER Initial appt today 10/09/2024 Encounter Details Date Type Department Care Team (Late st Contact Info) Description 10/09/2024 Refill [facility] MEDICINE [address] [place] [address] 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 RN Chronic bilateral low back [...] - 10/09/2024 10:12 AM EST Pt had CITY MAINTENANCE MANAGER Initial appt today BPI scoring was 7.8 and 6.7. Opioid Risk scoring was 17. Pt and foster Mother Lanny would bucky [facility] pharmacy to be her pharmacy and they would like a referral for the MEDBOX program. documented in this encounter Plan of Treatment Upcoming Encounters Date Type Department Care Team (Late st Contact Info) Description 10/30/2024 11:00 AM EDT Medication Management [address] [address] 01/06/2025 10:00 AM EDT Clinical Support [facility] MEDICINE [address] [place] [phone] 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, RN documented as of this encounter Visit Diagnoses Diagnosis Chronic bilateral low back pain without sciatica- Primary documented in this encounter Care Teams Food Selector Relationship Specialty Start Date End Date Brenna Liriano MD [address] [place] [address] PCP - General Family Medicine 07/01/19 [place] [facility] 06/26/24 documented as of this encounter
--- OUTSIDE RECORDS SUMMARY | 2024-10-29 11:50 | XMS_ITS | Encounter Summary ---
Author Organization [facility] Address [address] [place] [address] 7t [place] [address] Care Team Providers Care Sql Tech Name Role Phone Brenna Liriano MD Primary Care Provide r Reason for Visit * Reason Comments Med Refill Encounter Details Date Type Department Care Team (Late Contact Info) Description 10/23/2022 Refill [facility] MEDICINE [address] [place] [address] [phone] Hina Mccormack MD [address] [place] [address] [phone] Other chronic pain Social History Tobacco Use [...] Description 10/30/2024 11:00 AM EDT Medication Management [facility] MED[facility]INE [address] [place] [address] [phone] 01/06/2025 10:00 AM EDT Clinical Support [address] [phone] 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 RN documented as of this encounter Visit Diagnoses Diagnosis Other chronic pain documented in this encounter Care Teams Sql Tech Relationship Specialty Start Date End Date Brenna Liriano MD [address] [place] [address] [place] [address] PCP - General Family Medicine 07/01/19 Geovanny [facility] 06/26/24 documented as of this encounter
--- OUTSIDE RECORDS SUMMARY | 2024-10-29 11:50 | XMS_ITS | Encounter Summary ---
Author Organization [employer] Address [address] [facility] 7t [place] [address] Care Team Providers Care Shellfish Dredge Operator Name Role Phone Brenna Liriano MD Primary Care Provide r Reason for Visit * Reason Comments CVOR NURSE INitial CVOR NURSE Initial Encounter Details Date Type Department Care Team (Latest Contact Info) Description 10/09/2024 10:00 AM EST Clinical Support [facility] MEDICINE [address] [place] [address] 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 RN Chronic bilateral low back [...] AM EST S: Pt here for initial CVOR NURSE Visit, accompanied by her ice cream freezer Lanny, who assisted with translation when needed. [...] little relief. Pt has been [facility] for CVOR NURSE Initial appt on 05/22/24 and 06/30/24.Patient and foster mother expressed frustration with their current pharmacy and would like to be switched to [facility] for all her medication needs. O: CVOR NURSE Tier 2. Pt currently prescribed Tramadol 50mg Q12hr PRN. FURNITURE MOVER DRIVER verified today. Rx last filled on 09/01/24. [...] results. Last PCP visit was 07/15/24. A: CVOR NURSE Contract Initiation Visit: Chronic Opioid use related to pain. P: CVOR NURSE contract reviewed and signed, Pt provided copy. Pt to continue taking medication only as prescribed; Next CVOR NURSE RV appointment scheduled for 01/06/25 @ 10a, F/U sooner PRN. Appointment reminder given. Pt verbalized understanding and agreed to plan. documented in this encounter Plan of Treatment Upcoming Encounters Date Type Department Care Team (Late st Contact Info) Description 10/30/2024 11:00 AM EDT Medication Management [address] [address] 01/06/2025 10:00 AM EDT Clinical Support [address] [address] 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, RN Scheduled Orders Name Type [...] - 10/09/2024 10:43 AM EST UTOX cup Lot#[id number] Exp. 04/08/26 Internal Pass Control us Brenna Brower MD POINT OF CARE TEST EN TER/EDIT ORDERABLES Final Result documented in this encounter Visit Diagnoses Diagnosis Chronic bilateral low back pain without sciatica- Primary documented in this encounter Care Teams Shellfish Dredge Operator Relationship Specialty Start Date End Date Brenna Liriano MD [address] [place] [address] PCP - General Family Medicine 07/01/19 Geovanny [facility] 06/26/24 documented as of this encounter
--- OUTSIDE RECORDS SUMMARY | 2024-10-29 11:50 | XMS_ITS | Encounter Summary ---
Author Organization [employer] Address [address] [place] [address] 7t [place] [address] Care Team Providers Care Soda Fountain Clerk Name Role Phone Brenna Liriano MD Primary Care Provide r Reason for Visit * Reason Onset Date Comments Med Refill Reschedule LEGAL OPERATIONS MANAGER Initial appt - 3rd attempt 2024 Encounter Details Date Type Department Care Team (Late st Contact Info) Description 10/03/2024 Refill [facility] MEDICINE [address] [place] [address] Brenna Liriano MD 230 [place] [address] Primary osteoarthritis of both knees; Chronic bilateral [...] not be done until she comes to LEGAL OPERATIONS MANAGER appointment thank you. TC via [id number], LEGAL OPERATIONS MANAGER Initial appt X 3 scheduled for 10/09/24 @ 10am. Pt stated she will be coming with [facility]. * Telephone Encounter - Brenna Brower MD - 10/07/2024 11:47 AM EST Please let patient know refill will not be done until she comes to LEGAL OPERATIONS MANAGER appointment thank you documented in this encounter Plan of Treatment Upcoming Encounters Date Type Department Care Team (Late st Contact Info) Description 10/30/2024 11:00 AM EDT Medication Management [facility] MEDICINE [address] [place] [phone] 01/06/2025 10:00 AM EDT Clinical Support [address] [address] 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, RN documented as of this encounter Visit Diagnoses Diagnosis Primary osteoarthritis of both knees Chronic bilateral low back pain without sciatica documented in this encounter Care Teams Soda Fountain Clerk Relationship Specialty Start Date End Date Brenna Liriano MD 230 [facility] [place] [address] PCP - General Family Medicine 07/01/19 Ge[facility] 06/26/24 documented as of this encounter
--- OUTSIDE RECORDS SUMMARY | 2024-10-29 11:50 | XMS_ITS | Encounter Summary ---
Author Organization [employer] [facility] Address [address] [place] [address] 7 [place] [address] Care Team Providers Care Sample Weaver Name Role Phone Brenna Liriano MD Primary Care Provide r Reason for Referral * Consultation (Routine) - Authorized Specialty Diagnoses / Procedures Referred By Contac t Referred To Contact Pharmacy Diagnoses Type 2 diabetes mellitus with hyperglycemia, without long-term current use of insulin (CMS/HCC) Chronic schizoaffective schizophrenia (CMS/HCC) Brenna Liriano MD [address] [place] [address] Phone: tel: fax: Referral ID Status Reason Start Date Expiration Date Visits Requested Visits Authorized [id number] Authorized Continuity of Care 10/09/2024 10/09/2025 6 6 Encounter Details Date Type Department Care Team (Late st Contact Info) Description 10/09/2024 Orders Only [facility] MEDICINE [address] [place] [address] [phone] Brenna Liriano MD [address] [place] [address] [phone] Type 2 diabetes mellitus with hyperglycemia, without [...] Description 10/30/2024 11:00 AM EDT Medication Management [facility] MEDICINE [address] [place] [phone] 01/06/2025 10:00 AM EDT Clinical Support [address] [address] 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, RN Scheduled Referrals Name Type Priority Associated Diagnoses Orde r Schedule Referral to Pharmacy [facility] Outpatient Referral Routine Type 2 diabetes mellitus with hyperglycemia, without long-term current use of insulin (CMS/HCC) Chronic schizoaffective schizophrenia (CMS/HCC) Ordered: 10/09/2024 documented as of this encounter Procedures Procedure Name Priority Date/Time Associated Diagnosis Comments METHADONE SCREEN, URINE Routine 10/09/2024 10:00 AM EST Type 2 diabetes mellitus with hyperglycemia, without long-term current use of insulin ([facility]) documented in this encounter Results * Drug Monitoring, Methadone Metabolite, Screen, Urine (10/09/2024 10:00 AM EST) Methadone Screen, Urine Not Detected Not Detect ng/mL [facility] Comment:Methadone cut-off is 300 ng/mL.Positive results are unconfirmed and should not be used fornon-medical purposes. 10/09/2024 10:0 0 AM EST 10/09/2024 6:14 PM EST us Brenna Brower MD LAB URINE ORDERABLES Final Result [facility] [address] [place] [phone] [phone] documented in this encounter Visit Diagnoses Diagnosis Type 2 diabetes mellitus with hyperglycemia, without long-term current use of insulin ([facility])- Primary Chronic schizoaffective schizophrenia ([facility]) Schizoaffective disorder, chronic condition documented in this encounter Care Teams Sample Weaver Relationship Specialty Start Date End Date Brenna Liriano MD [address] [place] [address] PCP - General Family Medicine 07/01/19 [facility] 06/26/24 documented as of this encounter
--- OUTSIDE RECORDS SUMMARY | 2024-10-29 11:50 | XMS_ITS | Encounter Summary ---
Author Organization [employer] Address [address] [facility] 7t [place] [address] Care Team Providers Care Button Riveter Name Role Phone Brenna Liriano MD Primary Care Provide r Encounter Details Date Type Department Care Team (Late st Contact Info) Description 10/20/2024 Telephone [facility] MEDICINE 230 [place], [place] [phone] Brenna Liriano MD 230 [place], [place] [phone] Social History Tobacco Use Types Packs/Day Years [...] encounter Miscellaneous Notes * Telephone Encounter - Anna Beckwith - 10/20/2024 9:31 AM EST Pharmacy [facility] attempted outreach call on 10/20/24 for Medication Therapy Management (MTM) appointment; however, unable to reach patient. LVM for patient to contact Anna Beckwith at [phone]. documented in this encounter Plan of Treatment Upcoming Encounters Date Type Department Care Team (Late st Contact Info) Description 10/30/2024 11:00 AM EDT Medication Management [address] [address] 01/06/2025 10:00 AM EDT Clinical Support [address] [address] 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 RN documented as of this encounter Visit Diagnoses Not on filedocumented in this encounter Care Teams Button Riveter Relationship Specialty Start Date End Date Brenna Liriano MD [address] [place] [address] PCP - General Family Medicine 07/01/19 [facility] 06/26/24 documented as of this encounter
--- OUTSIDE RECORDS SUMMARY | 2024-10-29 11:50 | XMS_ITS | Encounter Summary ---
Author Organization [facility] Address [address] [place] [address] Care Team Providers Care Medical Records Manager Name Role Phone Brenna Liriano MD Primary Care Provide r Encounter Details Date Type Department Care Team (Late Contact Info) Description 08/10/2022 [facility] Health Information Management [address] [place] [address] Brenna Liriano MD 230 [place] [address] Social History Tobacco Use Types Packs/Day Years [...] Description 10/30/2024 11:00 AM EDT Medication Management [facility] MEDICINE [address] [place] [address] [phone] 01/06/2025 10:00 AM EDT Clinical Support [facility] MEDICINE [address] [place] [address] [phone] 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 RN documented as of this encounter Visit Diagnoses Not on filedocumented in this encounter Care Teams Medical Records Manager Relationship Specialty Start Date End Date Brenna Liriano MD [address] [place] [address] PCP - General Family Medicine 07/01/19 Ge[facility] 06/26/24 documented as of this encounter
--- OUTSIDE RECORDS SUMMARY | 2024-10-29 11:50 | XMS_ITS | Encounter Summary ---
Author Organization [employer] Address [address] [facility] 7t [place] [address] Care Team Providers Care Cable Tv Installer Name Role Phone Brenna Liriano MD Primary Care Provide r Reason for Visit * Reason Comments Med Refill Encounter Details Date Type Department Care Team ([facility] st Contact Info) Description 10/27/2024 Refill [facility] MEDICINE 230 [place], [place] [phone] Brenna Liriano MD 230 [place], [place] [phone] Essential hypertension Social History Tobacco Use Types Packs/Day Years [...] Description 10/30/2024 11:00 AM EDT Medication Management [address] [address] 01/06/2025 10:00 AM EDT Clinical Support [address] [address] 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 RN documented as of this encounter Visit Diagnoses Diagnosis Essential hypertension Unspecified essential hypertension documented in this encounter Care Teams Cable Tv Installer Relationship Specialty Start Date End Date Brenna Liriano MD [address] [place] [address] PCP - General Family Medicine 07/01/19 Geovanny [facility] 06/26/24 documented as of this encounter
--- OUTSIDE RECORDS SUMMARY | 2024-10-29 11:50 | XMS_ITS | Encounter Summary ---
Author Organization [employer] Address [address] [facility] 7t [place] [address] Care Team Providers Care Secretary Administrative Assistant Name Role Phone Brenna Liriano MD Primary Care Provide r Reason for Visit * Reason Onset Date Comments Med Refill 10/07/2024 Encounter Details Date Type Department Care Team ([facility] st Contact Info) Description 10/07/2024 Telephone [facility] MEDICINE [address] [place], [place] [phone] Brenna Liriano MD 230 [place], [place] [phone] Med Refill Social History Tobacco Use Types [...] from PCP today, no tramadol refill until TELECOMMUNICATIONS SPECIALIST initial visit completed. Spoke with patient today and pt Is scheduled for 10/09/24. * Telephone Encounter - Melchor Ortega - 10/07/2024 3:05 PM EST TC from pt requesting medication refill. Medications needing refill : traMADol (Ultram) 50 MG tablet To be sent to: [facility] - [place], [place] - [phone] - [place] - [address] documented in this encounter Plan of Treatment Upcoming Encounters Date Type Department Care Team (Late st Contact Info) Description 10/30/2024 11:00 AM EDT Medication Management [facility] MEDICINE [address] [place] [address] 01/06/2025 10:00 AM EDT Clinical Support [facility] MEDICINE [address] [place] [address] 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 RN documented as of this encounter Visit Diagnoses Not on filedocumented in this encounter Care Teams Secretary Administrative Assistant Relationship Specialty Start Date End Date Brenna Liriano MD [address] [place] [address] PCP - General Family Medicine 07/01/19 Ge[facility] 06/26/24 documented as of this encounter
--- OUTSIDE RECORDS SUMMARY | 2024-10-29 11:50 | XMS_ITS | Encounter Summary ---
Author Organization [employer] Address [address] [facility] 7t [place] [address] Care Team Providers Care Geodetic Surveyor Technologist Name Role Phone Brenna Liriano MD Primary Care Provide r Reason for Visit * Reason Onset Date Comments UTOX Pos MTD 10/09/2024 Encounter Details Date Type Department Care Team ([facility] st Contact Info) Description 10/09/2024 Telephone [facility] MEDICINE [address] [place] [address] 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 RN UTOX Pos MTD Social [...] - 10/09/2024 10:51 AM EST Pt had UNION ORGANIZER initial appt today UTOX was Pos MTD, sent to lab for confirmation documented in this encounter Plan of Treatment Upcoming Encounters Date Type Department Care Team (Late st Contact Info) Description 10/30/2024 11:00 AM EDT Medication Management [address] [address] 01/06/2025 10:00 AM EDT Clinical Support [address] [address] 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, RN documented as of this encounter Visit Diagnoses Not on filedocumented in this encounter Care Teams Geodetic Surveyor Technologist Relationship Specialty Start Date End Date Brenna Liriano MD 230 [place] [address] PCP - General Family Medicine 07/01/19 [facility] 06/26/24 documented as of this encounter
--- OUTSIDE RECORDS SUMMARY | 2024-10-29 11:50 | XMS_ITS | Encounter Summary ---
Author Organization [employer] Address [address] [facility] 7t [place] [address] Care Team Providers Care Cytologist Name Role Phone Brenna Liriano MD Primary Care Provide r Reason for Visit * Reason Comments Med Refill Encounter Details Date Type Department Care Team ([facility] st Contact Info) Description 03/11/2024 Refill [facility] MEDICINE 230 [place], [place] [phone] Brenna Liriano MD 230 [place], [place] [phone] Asthma, unspecified asthma severity, unspecified whether complicated, [...] 10/30/2024 11:00 AM EDT Medication Management [address] [address] 01/06/2025 10:00 AM EDT Clinical Support [address] [address] 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 RN documented as of this encounter Visit Diagnoses Diagnosis Asthma, unspecified asthma severity, unspecified whether complicated, unspecified whether persistent documented in this encounter Care Teams Cytologist Relationship Specialty Start Date End Date Brenna Liriano MD [address] [place] [address] PCP - General Family Medicine 07[facility]01[facility]19 [facility] documented as of this encounter
--- OUTSIDE RECORDS SUMMARY | 2024-10-29 11:50 | XMS_ITS | Encounter Summary ---
Author Organization [employer] Address 75 [facility] 7t [place] [address] Care Team Providers Care Building Superintendent Name Role Phone Brenna Liriano MD Primary [...] Description 10/30/2024 11:00 AM EDT Medication Management [address] [address] 01/06/2025 10:00 AM EDT Clinical Support [address] [address] 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 RN documented as of this encounter Visit Diagnoses Not on filedocumented in this encounter Care Teams Building Superintendent Relationship Specialty Start Date End Date Brenna Liriano MD [address] [place] [address] PCP - General Family Medicine 07/01/19 [facility] 06/26/24 documented as of this encounter
--- OUTSIDE RECORDS SUMMARY | 2024-10-29 11:50 | XMS_ITS | Encounter Summary ---
Author Organization [employer] Address [address] [facility] 7t [place] [address] Care Team Providers Care Commercial Pest Control Technician Name Role Phone Brenna Liriano MD Primary Care Provide r Reason for Visit * Reason Comments Med Refill Encounter Details Date Type Department Care Team ([facility] st Contact Info) Description 12/18/2023 Refill [facility] MEDICINE 230 [place], [place] [phone] Brenna Liriano MD 230 [place], [place] [phone] Social History Tobacco Use Types Packs/Day Years [...] Description 10/30/2024 11:00 AM EDT Medication Management [address] [address] 01/06/2025 10:00 AM EDT Clinical Support [address] [address] 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 RN documented as of this encounter Visit Diagnoses Not on filedocumented in this encounter Care Teams Commercial Pest Control Technician Relationship Specialty Start Date End Date Brenna Liriano MD [address] [place] [address] PCP - General Family Medicine 07/01/19 Geovanny [facility] 06/26/24 documented as of this encounter
--- OUTSIDE RECORDS SUMMARY | 2024-10-29 11:51 | XMS_ITS | Encounter Summary ---
Author Organization [employer] Address [address] [facility] 7t [place] [address] Care Team Providers Care Oyster Culturist Name Role Phone Brenna Liriano MD Primary Care Provide r Reason for Visit * Reason Comments Med Refill Encounter Details Date Type Department Care Team ([facility] st Contact Info) Description 09/30/2024 Refill [facility] MEDICINE 230 [place], [place] [phone] Brenna Liriano MD 230 [place], [place] [phone] Uncomplicated asthma, unspecified asthma severity, unspecified whether [...] 10/30/2024 11:00 AM EDT Medication Management [address] [address] 01/06/2025 10:00 AM EDT Clinical Support [address] [address] 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 RN documented as of this encounter Visit Diagnoses Diagnosis Uncomplicated asthma, unspecified asthma severity, unspecified whether persistent documented in this encounter Care Teams Oyster Culturist Relationship Specialty Start Date End Date Brenna Liriano MD [address] [place] [address] PCP - General Family Medicine 07/01/19 [facility] 06/26/24 documented as of this encounter
[2024-10-29 12:47] LABS: Hemoglobin 6.9 g/dl (12.0-16.0)
== END 2024-10-29 10:18 | disposition home or self-care (01) ==
LOC: HO.LABR 10:17
PROVIDERS: PCP Internal Medicine; Visit Provider Clinical Nurse Specialist Psychiatric/Mental Health, Adult
DX: Z79.899 Other long term (current) drug therapy (principal)
CPT/HCPCS: 36415; 85025

== ENCOUNTER 2024-10-29 16:27 | Emergency (ER) | payer MEDICAID, SELFPAY ==
[2024-10-29] VITALS (10 sets, daily range): BP systolic 112–165; BP diastolic 56–96; PULSE 81–98; RESP 15–19; TEMP 36.4–37; O2SAT 94–99; BMI 35.7
--- NOTE | 2024-10-29 16:54 | ED.GENADULT ---
HPI - General Adult General Chief complaint: Recheck/Abnormal Lab/Rx Stated complaint: stomach issues Time Seen by Provider: 10/29/24 16:53 Source: patient Limitations: language barrier History of Present Illness ED Provider: Génesis Stokes PA-C HPI narrative: [age] year old female with a history of known anemia, hypertension, GERD, diabetes, hyperlipidemia, asthma, and schizophrenia who presents to the ED with her caregiver due to abnormal labs. Patient was found to be critically anemic. She states she has been feeling weakness and fatigue with activity over the past week. Denies shortness of breath or chest pain. Denies black tarry stool. Related Data Home Medications ?Medication ?Instructions ?Recorded ?Confirmed sennosides 8.6 mg tablet (senna) 17.2 mg PO BEDTIME PRN constipation 12/13/22 06/19/24 albuterol sulfate 90 mcg/actuation 2 puff inhalation Q6H PRN 06/18/23 06/19/24 aerosol inhaler (Ventolin HFA) Shortness Of Breath Or Wheezing sucralfate 1 gram tablet 1 g PO TID 06/18/23 06/19/24 tramadol 50 mg tablet 50 mg PO DAILY PRN Severe Pain 06/18/23 06/19/24 (Scale Score 7-10) divalproex 500 mg tablet,extended 1,000 mg PO BEDTIME 10/01/23 06/19/24 release 24 hr clonazepam 0.5 mg tablet 0.5 mg PO DAILY 03/29/24 06/19/24 lisinopril 10 mg tablet 10 mg PO DAILY 03/29/24 06/19/24 atorvastatin 40 mg tablet 40 mg PO BEDTIME 06/18/24 06/19/24 omeprazole 20 mg capsule,delayed 20 mg PO BID@0630,1630 06/18/24 06/19/24 release capsaicin 0.025 % topical cream 1 appl topical DAILY PRN Minor 06/19/24 06/19/24 Aches and Pains clozapine 100 mg tablet 300 mg PO BEDTIME 06/19/24 06/19/24 clozapine 25 mg tablet 25 mg PO BEDTIME 06/19/24 06/19/24 divalproex 250 mg tablet,extended 250 mg PO BEDTIME 06/19/24 06/19/24 release 24 hr docusate sodium 100 mg capsule 100 mg PO BID PRN Constipation 06/19/24 06/19/24 fluticasone propionate 110 2 puff inhalation BID 06/19/24 06/19/24 mcg/actuation HFA aerosol inhaler loratadine 10 mg tablet 10 mg PO DAILY 06/19/24 06/19/24 magnesium hydroxide 400 mg/5 mL 5 ml PO DAILY PRN Constipation 06/19/24 06/19/24 oral suspension (Milk of Magnesia) polyethylene glycol 3350 17 gram 17 g PO DAILY Constipation 06/19/24 06/19/24 oral powder packet fluoxetine 20 mg capsule 20 mg PO QAM 07/21/24 lactulose 10 gram/15 mL oral 45 ml PO QAM 07/21/24 solution olanzapine 5 mg tablet 5 mg PO BEDTIME 07/21/24 Previous Rx's ?Medication ?Instructions ?Recorded clonazepam 1 mg tablet 1 mg PO BEDTIME #30 tabs 07/02/23 fluoxetine 10 mg capsule 30 mg (3 x 10 mg) PO DAILY #90 caps 07/02/23 metformin 500 mg tablet,extended 500 mg PO BID #60 tabs 07/02/23 release 24 hr montelukast 10 mg tablet 10 mg PO DAILY #30 tabs 07/02/23 albuterol sulfate 2.5 mg/3 mL 2.5 mg (3 mL) inhalation Q4H PRN 06/24/24 (0.083 %) solution for nebulization wheezing #60 mL cefuroxime axetil 500 mg tablet 500 mg PO Q12H #14 tabs 06/24/24 nicotine 21 mg/24 hr daily 1 patch transdermal Q24H #14 ea 06/24/24 transdermal patch diltiazem HCl 120 mg 120 mg PO DAILY #90 caps 10/27/24 capsule,extended release 24 hr Allergies Allergy/AdvReac Type Severity Reaction Status Date / Time diazepam [From Valium] Allergy Unknown Unknown Verified 10/29/24 16:39 haloperidol [From Haldol] Allergy Unknown Unknown Verified 10/29/24 16:39 Penicillins Allergy Unknown Unknown Verified 10/29/24 16:39 risperidone [From Risperdal] Allergy Unknown Unknown Verified 10/29/24 16:39 aspirin [Aspirin] AdvReac Intermediate Vomiting Verified 10/29/24 16:39 trazodone [TRAZODONE] AdvReac Intermediate NAUSEA & Verified 10/29/24 16:39 VOMITING Review of Systems Review of Systems: Yes all other systems are reviewed and are negative Constitutional: Constitutional: Reports fatigue, Denies fever(s) and Reports weakness ENT: Denies dizziness Cardiovascular: Cardiovascular: Denies chest pain and Denies dyspnea Respiratory: Respiratory: Denies dyspnea Gastrointestinal: Gastrointestinal: Denies abdominal pain, Denies melena, Denies hematochezia, Denies diarrhea, Denies nausea and Denies vomiting Neurologic: Denies dizziness and Reports weakness Endocrine: Endocrine: Reports fatigue PMFSH Past Medical History Attestation statement: The following information was validated with the patient. Medical History Anemia Diabetes Morbid obesity due to excess calories Anxiety Chronic mental illness COPD (chronic obstructive pulmonary disease) Hyperlipidemia Schizophrenia Asthma Surgical History Hx of colonoscopy History of tubal ligation H/O right knee surgery History of appendectomy Family History Family History Father Throat cancer Mother CVA (cerebral vascular accident) Brother Drug overdose Sister No problems noted. Sister No problems noted. Son No problems noted. Son No problems noted. 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 Other:: Lanny Soto, Inocencio Soto, - foster parents Housing: House Do you presently have visiting nurse or other home services: Yes Unable to assess alcohol history related to: Unknown Alcohol intake: never Comment: pt moves well s sba Patient Tobacco Use Status: Former Tobacco user Tobacco use type: Cigarette Cigarettes Per Day: 10 Smoked in Last 30 Days: No e-Cigarette/Vaping Use: Never Used Second Hand Smoke Exposure: No Use of substances other than those prescribed or required for medical reasons: No Advance Directives: Yes Advance Directives on File: Yes Advance Directives Date on File: 10/29/24 Do you have a plan to hurt others: No Plan Patient : No service: No Current occupational status: disabled Sexual orientation: Straight/Heterosexual Physical Exam ED Vital Signs: Vital Signs - 24 hr 10/29/24 16:36 10/29/24 17:24 10/29/24 18:09 Temperature 98 F 98.0 F Pulse Rate 92 98 92 Respiratory Rate 19 18 18 Blood Pressure 112/56 L 147/79 H 130/56 L Pulse Oximetry 99 94 Oxygen Delivery Method Room Air Room Air 10/29/24 18:26 10/29/24 20:21 10/29/24 20:38 Temperature 98.0 F 98.3 F 98.2 F Pulse Rate 90 86 86 Respiratory Rate 18 18 15 Blood Pressure 126/58 L 145/84 H 159/81 H Pulse Oximetry Oxygen Delivery Method 10/29/24 20:56 10/29/24 22:29 Temperature 98.5 F 98.6 F Pulse Rate 81 93 Respiratory Rate 16 18 Blood Pressure 142/59 H 165/96 H Pulse Oximetry Oxygen Delivery Method BMI result Body Mass Index 35.7 Const Other: Alert well-appearing Orientation/consciousness: patient oriented x3 Resp Effort & Inspection: normal respiratory effort Cardio Other: Normal peripheral perfusion GI Other: Stool Skin Other: Warm dry no rash Neuro General: patient oriented x3, gait normal, no focal motor deficits and CN's II-XI intact bilaterally Psych Other: Cooperative Medical Decision Making Medical Decision Making MDM Narrative: [age] year old female with a history of known anemia, hypertension, GERD, diabetes, hyperlipidemia, asthma, and schizophrenia who presents to the ED with her caregiver due to abnormal labs. Patient was found to be critically anemic. She states she has been feeling weakness and fatigue with activity over the past week. Denies shortness of breath or chest pain. Denies black tarry stool. Problem: Chronic anemia, diabetes History: Per patient and her caregiver I have considered the following differential diagnoses: Upper GI bleed, lower GI bleed, anemia of chronic disease, symptomatic anemia Plan: Screening labs including type and screen already in process, I added blood products, I consented the patient. She is having some mild symptoms of anemia. We will obtain a guaiac. I have independently reviewed the following tests: Labs: No leukocytosis, patient critically anemic at 6.9 and 25.2, guaiac neg Lab Data 10/29/24 16:54 10/29/24 16:53 Labs: Lab Results 10/29/24 10/29/24 10/29/24 Range/Units 16:53 16:54 19:02 WBC 9.3 (4.8-10.8) X10*3/uL RBC 3.72 L (4.20-5.50) X10*6/uL Hgb 7.0 L* (12.0-16.0) g/dl Hct 25.4 L (37.0-47.0) % MCV 68.3 L (80.0-98.0) fL MCH 18.8 L (27.0-33.0) pg MCHC 27.6 L (31.0-35.0) g/dl RDW 21.1 H (11.0-16.0) % Plt Count 346 (160-400) X10*3/uL MPV 10.8 (9.4-12.3) fL Immature Gran % (Auto) 0.6 H (0.0-0.4) % Neut % (Auto) 67.0 (45-73) % Lymph % (Auto) 22.9 (20-40) % [place] % (Auto) 8.3 (2-11) % Eos % (Auto) 0.9 (0-4) % Baso % (Auto) 0.3 (0-2) % Lymph # (Auto) 2.1 (1.2-4.9) X10*3/uL [place] # (Auto) 0.8 (0.1-1.2) X10*3/uL Eos # (Auto) 0.1 (0.0-0.4) X10*3/uL Baso # (Auto) 0.0 (0.0-0.2) X10*3/uL Abs Immat Gran (auto) 0.06 H (0.00-0.03) X10*3/uL Absolute Neuts (auto) 6.2 (2.0-8.3) x10*3/uL Absolute Nucleated RBC 0.040 H (0.0-0.012) X10*3/uL Nucleated RBC % (auto) 0.4 H (0.0-0.2) /100WBC PT 11.6 (10.9-12.4) SEC INR 1.0 (0.9-1.1) Sodium 141 (135-145) mmol/L Potassium 3.8 (3.3-5.1) mmol/L Chloride 106 (96-108) mmol/L Carbon Dioxide 25 (22-29) mmol/L Anion Gap 14 (12-20) BUN 16 (9-16) mg/dL Creatinine 0.66 (0.5-1.4) mg/dL Estim Creat Clear Calc 87.6 Estimated GFR > 60 Random Glucose 123 H (60-115) mg/dL Calcium 9.0 D (8.4-10.2) mg/dL Total Bilirubin 0.2 (0.0-1.0) mg/dL Direct Bilirubin < 0.2 (0.0-0.5) mg/dL AST 8 (5-31) U/L ALT 19 (0-31) U/L Alkaline Phosphatase 77 (39-117) U/L Total Protein 7.4 (6.5-8.0) g/dL Albumin 3.9 (3.5-5.0) g/dL Lipase 13 (8-78) U/L Stool Occult Blood NEGATIVE (NEGATIVE) Blood Type O Positive Antibody Screen NEGATIVE Crossmatch See Detail Discharge Plan Discharge Clinical Impression: Anemia Patient Disposition: Home, Self-Care Additional Instructions: You received 2 units of blood today, you need to have repeat lab studies in 2 days, call your primary care provider tomorrow morning so they can order the lab studies for you. Prescriptions: No Action diltiazem HCl 120 mg capsule,extended release 24hr 120 mg PO DAILY Qty: 90 1RF albuterol sulfate [Ventolin HFA] 90 mcg/actuation HFA aerosol inhaler 2 puff INHALATION Q6H PRN (Reason: Shortness Of Breath Or Wheezing) sucralfate 1 gram tablet 1 g PO TID tramadol 50 mg tablet 50 mg PO DAILY PRN (Reason: Severe Pain (Scale Score 7-10)) fluoxetine 10 mg Capsule 30 mg PO DAILY Qty: 90 0RF clonazepam 1 mg tablet 1 mg PO BEDTIME Qty: 30 0RF montelukast 10 mg tablet 10 mg PO DAILY Qty: 30 0RF metformin 500 mg tablet extended release 24 hr 500 mg PO BID Qty: 60 0RF sennosides [senna] 8.6 mg tablet 17.2 mg PO BEDTIME PRN (Reason: constipation) clonazepam 0.5 mg tablet 0.5 mg PO DAILY lisinopril 10 mg tablet 10 mg PO DAILY atorvastatin 40 mg tablet 40 mg PO BEDTIME omeprazole 20 mg capsule,delayed release(DR/EC) 20 mg PO BID@0630,1630 capsaicin 0.025 % Cream 1 appl TOPICAL DAILY PRN (Reason: Minor Aches and Pains) Rx Instructions: do not wash area for at least 30 min after application clozapine 25 mg tablet 25 mg PO BEDTIME Rx Instructions: TDD= 325 MG loratadine 10 mg tablet 10 mg PO DAILY fluticasone propionate 110 mcg/actuation HFA aerosol inhaler 2 puff INHALATION BID polyethylene glycol 3350 17 gram powder in packet 17 g PO DAILY magnesium hydroxide [Milk of Magnesia] 400 mg/5 mL suspension 5 ml PO DAILY PRN (Reason: Constipation) docusate sodium 100 mg capsule 100 mg PO BID PRN (Reason: Constipation) clozapine 100 mg tablet 300 mg PO BEDTIME Patient Comments: TDD = 325 MG Rx Instructions: TDD= 325 MG divalproex 250 mg tablet extended release 24 hr 250 mg PO BEDTIME Rx Instructions: TDD= 1250 MG nicotine 21 mg/24 hr patch 24 hour 1 patch transdermal Q24H Qty: 14 0RF albuterol sulfate 2.5 mg /3 mL (0.083 %) solution for nebulization 2.5 mg inhalation Q4H PRN (Reason: wheezing) Qty: 60 0RF cefuroxime axetil 500 mg Tablet 500 mg PO Q12H Qty: 14 0RF lactulose 10 gram/15 mL solution 45 ml PO QAM olanzapine 5 mg tablet 5 mg PO BEDTIME fluoxetine 20 mg capsule 20 mg PO QAM divalproex 500 mg tablet extended release 24 hr 1,000 mg PO BEDTIME Rx Instructions: TDD = 1250 MG Print Language: Macanese
[2024-10-29 16:59] LABS: MANUAL DIFF FLAG NO
[2024-10-29 17:09] LABS: Prothrombin Time 11.6 SEC (10.9-12.4)
[2024-10-29 17:14] LABS: Basophils Percent Auto 0.3 % (0-2); Eosinophils Absolute Auto 0.1 X10*3/uL (0.0-0.4); Eosinophils Percent Auto 0.9 % (0-4); Hematocrit 25.4 % (37.0-47.0); Imm Gran Abs Auto 0.06 X10*3/uL (0.00-0.03); Imm Gran Pct Auto 0.6 % (0.0-0.4); Lymphocytes Absolute Auto 2.1 X10*3/uL (1.2-4.9); Lymphocytes Percent Auto 22.9 % (20-40); Mean Corpuscular HGB Conc 27.6 g/dl (31.0-35.0); Mean Corpuscular Hemoglobin 18.8 pg (27.0-33.0); Mean Corpuscular Volume 68.3 fL (80.0-98.0); Mean Platelet Volume 10.8 fL (9.4-12.3); Monocytes Absolute Auto 0.8 X10*3/uL (0.1-1.2); Monocytes Percent Auto 8.3 % (2-11); NRBC Pct Auto 0.4 /100WBC (0.0-0.2); Neutrophils Absolute Auto 6.2 x10*3/uL (2.0-8.3); Platelet Count 346 X10*3/uL (160-400); Red Blood Count 3.72 X10*6/uL (4.20-5.50); Red Cell Distribution Width 21.1 % (11.0-16.0); White Blood Count 9.3 X10*3/uL (4.8-10.8)
[2024-10-29 17:17] LABS: Alanine Aminotransferase 19 U/L (0-31); Albumin Level 3.9 g/dL (3.5-5.0); Alkaline Phosphatase 77 U/L (39-117); Anion Gap 14 (12-20); Aspartate Amino Transferase 8 U/L (5-31); Bilirubin Direct < 0.2 mg/dL (0.0-0.5); Bilirubin Total 0.2 mg/dL (0.0-1.0); Blood Urea Nitrogen 16 mg/dL (9-16); Carbon Dioxide 25 mmol/L (22-29); Chloride 106 mmol/L (96-108); Creatinine Clr Calc Pharmacy 87.6; Estimated Glomerular Filt Rate > 60; Glucose Random 123 mg/dL (60-115); Lipase 13 U/L (8-78); Potassium 3.8 mmol/L (3.3-5.1); Sodium 141 mmol/L (135-145); Total Protein 7.4 g/dL (6.5-8.0)
--- OUTSIDE RECORDS SUMMARY | 2024-10-29 18:42 | XMS_ITS | Encounter Summary ---
Author Organization [employer] Address [address] [place] [address] 7t [place] [address] Care Team Providers Care Marketing Programs Manager Name Role Phone Brenna Liriano MD Primary Care Provide r Encounter Details Date Type Department Care Team ([facility] Contact Info) Description 02/08/2023 Orders Only [facility]S [address] [place], [place] [phone] Enma Sparks LPN Social History Tobacco Use [...] Description 10/30/2024 11:00 AM EDT Medication Management [address] [address] 01/06/2025 10:00 AM EDT Clinical Support [address] [address] 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 RN documented as of this encounter Visit Diagnoses Not on filedocumented in this encounter Care Teams Marketing Programs Manager Relationship Specialty Start Date End Date Brenna Liriano MD [address] [facility] [place] [address] PCP - General Family Medicine 07/01/19 [place] [facility] 06/26/24 documented as of this encounter
--- OUTSIDE RECORDS SUMMARY | 2024-10-29 18:42 | XMS_ITS | Encounter Summary ---
Author Organization [employer] Address [address] [facility] 7t [place] [address] Care Team Providers Care Hasher Machine Operator Name Role Phone Brenna Liriano MD Primary Care Provide r Reason for Visit * Reason Comments Med Refill Encounter Details Date Type Department Care Team ([facility] st Contact Info) Description 07/24/[address] [facility] MED [facility] PEDS [address] [place], [place] [phone] Brenna Liriano MD [address] [place] [address] Social History Tobacco Use Types Packs/Day Years [...] Description 10/30/2024 11:00 AM EDT Medication Management [address] [address] 01/06/2025 10:00 AM EDT Clinical Support [address] [address] 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 RN documented as of this encounter Visit Diagnoses Not on filedocumented in this encounter Care Teams Hasher Machine Operator Relationship Specialty Start Date End Date Brenna Liriano MD [address] [place] [phone] PCP - General Family Medicine 07/01/19 [facility] 06/26/24 documented as of this encounter
--- OUTSIDE RECORDS SUMMARY | 2024-10-29 18:42 | XMS_ITS | Encounter Summary ---
Author Organization [employer] Address [address] [facility] 7t [place] [address] Care Team Providers Care Cricket Coach Name Role Phone Brenna Liriano MD Primary Care Provide r Reason for Visit * Reason Comments Med Refill Encounter Details Date Type Department Care Team ([facility] st Contact Info) Description 03/11/2024 Refill [facility] MEDICINE [address] [place], [place] [phone] Brenna Liriano MD [address] [place], [place] [phone] Asthma, unspecified asthma severity, unspecified whether complicated, [...] Description 10/30/2024 11:00 AM EDT Medication Management [address] [address] 01/06/2025 10:00 AM EDT Clinical Support [address] [address] 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 RN documented as of this encounter Visit Diagnoses Diagnosis Asthma, unspecified asthma severity, unspecified whether complicated, unspecified whether persistent documented in this encounter Care Teams Cricket Coach Relationship Specialty Start Date End Date Brenna Liriano MD [address] [place] [phone] PCP - General Family Medicine [facility] documented as of this encounter
--- OUTSIDE RECORDS SUMMARY | 2024-10-29 18:42 | XMS_ITS | Encounter Summary ---
Author Organization [employer] Address [address] [facility] 7t [place] [address] Care Team Providers Care Natural Resource Specialist Name Role Phone Brenna Liriano MD [...] Description 10/30/2024 11:00 AM EDT Medication Management [address] [address] 01/06/2025 10:00 AM EDT Clinical Support [address] [address] 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 RN documented as of this encounter Visit Diagnoses Not on filedocumented in this encounter Care Teams Natural Resource Specialist Relationship Specialty Start Date End Date Brenna Liriano MD [address] [place] [phone] PCP - General Family Medicine 07/01/19 [facility] 06/26/24 documented as of this encounter
--- OUTSIDE RECORDS SUMMARY | 2024-10-29 18:42 | XMS_ITS | Encounter Summary ---
Author Organization [employer] Address [address] [facility] 7t [place] [address] Care Team Providers Care Director Enterprise Sales Name Role Phone Brenna Liriano MD Primary Care Provide r Reason for Visit * Reason Comments GEARCASE ASSEMBLER INitial GEARCASE ASSEMBLER Initial Encounter Details Date Type Department Care Team (Latest Contact Info) Description 10/09/2024 10:00 AM EST Clinical Support [facility] MEDICINE [address] [place] [address] 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 RN Chronic bilateral low back [...] AM EST S: Pt here for initial GEARCASE ASSEMBLER Visit, accompanied by her fire captain marine Lanny, who assisted with translation when needed. [...] little relief. Pt has been NCNS for GEARCASE ASSEMBLER Initial appt on 05/22/24 and 06/30/24.Patient and foster mother expressed frustration with their current pharmacy and would like to be switched to [facility] Med Box for all her medication needs. O: GEARCASE ASSEMBLER Tier 2. Pt currently prescribed Tramadol 50mg Q12hr PRN. CLOTH COVERED HELMET PULLER verified today. Rx last filled on 09/01/24. [...] results. Last PCP visit was 07/15/24. A: GEARCASE ASSEMBLER Contract Initiation Visit: Chronic Opioid use related to pain. P: GEARCASE ASSEMBLER contract reviewed and signed, Pt provided copy. Pt to continue taking medication only as prescribed; Next GEARCASE ASSEMBLER RV appointment scheduled for 01/06/25 @ 10a, F/U sooner PRN. Appointment reminder given. Pt verbalized understanding and agreed to plan. documented in this encounter Plan of Treatment Upcoming Encounters Date Type Department Care Team (Late st Contact Info) Description 10/30/2024 11:00 AM EDT Medication Management [address] [address] 01/06/2025 10:00 AM EDT Clinical Support [address] [address] 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, RN Scheduled Orders Name Type [...] - 10/09/2024 10:43 AM EST UTOX cup Lot#[id number] Exp. 04/08/26 Internal Pass Control us Brenna Brower MD POINT OF CARE TEST EN TER/EDIT ORDERABLES Final Result documented in this encounter Visit Diagnoses Diagnosis Chronic bilateral low back pain without sciatica- Primary documented in this encounter Care Teams Director Enterprise Sales Relationship Specialty Start Date End Date Brenna Liriano MD [address] [place] [phone] PCP - General Family Medicine 07/01/19 [place] [facility] 06/26/24 documented as of this encounter
--- OUTSIDE RECORDS SUMMARY | 2024-10-29 18:42 | XMS_ITS | Encounter Summary ---
Author Organization [facility] Address [address] [place] [address] 7 [place] [address] Care Team Providers Care Keno Manager Name Role Phone Brenna Liriano MD Primary Care Provide r Reason for Referral * Consultation (Routine) - Authorized Specialty Diagnoses / Procedures Referred By Contac t Referred To Contact Pharmacy Diagnoses Type 2 diabetes mellitus with hyperglycemia, without long-term current use of insulin (CMS/HCC) Chronic schizoaffective schizophrenia (CMS/HCC) Brenna Liriano MD [address] [place] [address] Phone: tel: fax: Referral ID Status Reason Start Date Expiration Date Visits Requested Visits Authorized [id number] Authorized Continuity of Care 10/09/2024 10/09/2025 6 6 Encounter Details Date Type Department Care Team (Late st Contact Info) Description 10/09/2024 Orders Only [facility] MEDICINE [address] [place] [phone] Brenna Liriano MD [address] [place] [phone] Type 2 diabetes mellitus with hyperglycemia, without [...] Description 10/30/2024 11:00 AM EDT Medication Management [facility] MEDICINE [address] [place] [phone] 01/06/2025 10:00 AM EDT Clinical Support [address] [address] Avelina tSerling, RN Scheduled Referrals Name Type Priority Associated Diagnoses Orde r Schedule Referral to Pharmacy [facility] Outpatient Referral Routine Type 2 diabetes mellitus with hyperglycemia, without long-term current use of insulin (CMS/HCC) Chronic schizoaffective schizophrenia (CMS/HCC) Ordered: 10/09/2024 documented as of this encounter Procedures Procedure Name Priority Date/Time Associated Diagnosis Comments METHADONE SCREEN, URINE Routine 10/09/2024 10:00 AM EST Type 2 diabetes mellitus with hyperglycemia, without long-term current use of insulin ([facility]) documented in this encounter Results * Drug Monitoring, Methadone Metabolite, Screen, Urine (10/09/2024 10:00 AM EST) Methadone Screen, Urine Not Detected Not Detect ng/mL [facility] Comment:Methadone cut-off is 300 ng/mL.Positive results are unconfirmed and should not be used fornon-medical purposes. 10/09/2024 10:0 0 AM EST 10/09/2024 6:14 PM EST us Brenna Brower MD LAB URINE ORDERABLES Final Result [facility] [address] [place] [address] [phone] documented in this encounter Visit Diagnoses Diagnosis Type 2 diabetes mellitus with hyperglycemia, without long-term current use of insulin ([facility])- Primary Chronic schizoaffective schizophrenia ([facility]) Schizoaffective disorder, chronic condition documented in this encounter Care Teams Keno Manager Relationship Specialty Start Date End Date Brenna Liriano MD [address] [place] [phone] PCP - General Family Medicine 07/01/19 [facility] 06/26/24 documented as of this encounter
--- OUTSIDE RECORDS SUMMARY | 2024-10-29 18:42 | XMS_ITS | Encounter Summary ---
Author Organization [facility] Address [address] [place] [address] 7t [place] [address] Care Team Providers Care Timing Adjuster Name Role Phone Brenna Liriano MD Primary Care Provide r Encounter Details Date Type Department Care Team ([facility] Contact Info) Description 02/12/2023 Orders Only [address] [address] Kristen Hernandez LPN Social History [...] Description 10/30/2024 11:00 AM EDT Medication Management [address] [address] 01/06/2025 10:00 AM EDT Clinical Support [address] [address] 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 RN documented as of this encounter Visit Diagnoses Not on filedocumented in this encounter Care Teams Timing Adjuster Relationship Specialty Start Date End Date Brenna Liriano MD [address] [place] [address] [place] [address] PCP - General Family Medicine 07/01/19 [place] [facility] 06/26/24 documented as of this encounter
--- OUTSIDE RECORDS SUMMARY | 2024-10-29 18:42 | XMS_ITS | Encounter Summary ---
Author Organization [email or web address] Address [address] [facility] 7t [place] [address] Care Team Providers Care Prop And Scenery Maker Name Role Phone Brenna Liriano MD Primary Care Provide r Reason for Visit * Reason Onset Date Comments UTOX Pos MTD 10/09/2024 Encounter Details Date Type Department Care Team ([facility] st Contact Info) Description 10/09/2024 Telephone [facility] MEDICINE [address] [place] [address] 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 RN UTOX Pos MTD Social [...] - 10/09/2024 10:51 AM EST Pt had DIRECTOR VIDEO initial appt today UTOX was Pos MTD, sent to lab for confirmation documented in this encounter Plan of Treatment Upcoming Encounters Date Type Department Care Team (Late st Contact Info) Description 10/30/2024 11:00 AM EDT Medication Management [address] [address] 01/06/2025 10:00 AM EDT Clinical Support [address] [address] 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, RN documented as of this encounter Visit Diagnoses Not on filedocumented in this encounter Care Teams Prop And Scenery Maker Relationship Specialty Start Date End Date Brenna Liriano MD [address] [place] [address] PCP - General Family Medicine 07/01/19 [place] [facility] 06/26/24 documented as of this encounter
--- OUTSIDE RECORDS SUMMARY | 2024-10-29 18:42 | XMS_ITS | Encounter Summary ---
Author Organization [employer] Address 75 [facility] 7t [place] [address] Care Team Providers Care Senior Pricing Analyst Name Role Phone Brenna Liriano MD Primary Care Provide r Reason for Visit * Reason Comments Med Refill Encounter Details Date Type Department Care Team ([facility] st Contact Info) Description 09/14/2023 Refill [facility] MEDICINE 230 [place], [place] [phone] Brenna Liriano MD 230 [place], [place] [phone] Constipation, unspecified constipation type Social History Tobacco [...] Description 10/30/2024 11:00 AM EDT Medication Management [address] [address] 01/06/2025 10:00 AM EDT Clinical Support [address] [address] 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 RN documented as of this encounter Visit Diagnoses Diagnosis Constipation, unspecified constipation type documented in this encounter Care Teams Senior Pricing Analyst Relationship Specialty Start Date End Date Brenna Liriano MD [address] [place] [address] PCP - General Family Medicine 07/01/19 [place] CARLOSA 06/26/24 documented as of this encounter
--- OUTSIDE RECORDS SUMMARY | 2024-10-29 18:42 | XMS_ITS | Encounter Summary ---
Author Organization [employer] Address 75 [facility] 7t [place] [address] Care Team Providers Care In Room Dining Server Name Role Phone Brenna Liriano MD Primary Care Provide r Reason for Visit * Reason Onset Date Comments Pt and assembler bonding want [facility] pharmacy [facility] Med Refill 10/09/2024 MOTION PICTURE PROJECTIONIST Initial appt today 10/09/2024 Encounter Details Date Type Department Care Team (Late st Contact Info) Description 10/09/2024 Refill [facility] MEDICINE 230 [place] [address] 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 RN Chronic bilateral low back [...] - 10/09/2024 10:12 AM EST Pt had MOTION PICTURE PROJECTIONIST Initial appt today BPI scoring was 7.8 and 6.7. Opioid Risk scoring was 17. Pt and foster Mother Lanny would bucky [facility] pharmacy to be her pharmacy and they would like a referral for the [facility] program. documented in this encounter Plan of Treatment Upcoming Encounters Date Type Department Care Team (Late st Contact Info) Description 10/30/2024 11:00 AM EDT Medication Management [address] [address] 01/06/2025 10:00 AM EDT Clinical Support [facility] MEDICINE [address] [place] [address] 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, RN documented as of this encounter Visit Diagnoses Diagnosis Chronic bilateral low back pain without sciatica- Primary documented in this encounter Care Teams In Room Dining Server Relationship Specialty Start Date End Date Brenna Liriano MD [address] [place] [address] PCP - General Family Medicine 07/01/19 [place] CARLOSA 06/26/24 documented as of this encounter
--- OUTSIDE RECORDS SUMMARY | 2024-10-29 18:42 | XMS_ITS | Encounter Summary ---
Author Organization [employer] Address 75 [facility] 7t [place] [address] Care Team Providers Care Deck And Hull Assembler Name Role Phone Brenna Liriano MD Primary Care Provide r Reason for Visit * Reason Onset Date Comments Appointment Request 10/31/2023 Encounter Details Date Type Department Care Team ([facility] st Contact Info) Description 10/31/2023 Telephone [facility] MEDICINE 230 [place], [place] [phone] Brenna Liriano MD 230 [place], [place] [phone] Appointment Request Social History Tobacco Use Types [...] PM EDT Tc from Veronica the patients tree worker calling to cancel the PAP appt on 11/06 and would like to reschedule documented in this encounter Plan of Treatment Upcoming Encounters Date Type Department Care Team (Late st Contact Info) Description 10/30/2024 11:00 AM EDT Medication Management [address] [address] 01/06/2025 10:00 AM EDT Clinical Support [address] [address] 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, GUILLE documented as of this encounter Visit Diagnoses Not on filedocumented in this encounter Care Teams Deck And Hull Assembler Relationship Specialty Start Date End Date Brenna Liriano MD [address] [place] [address] PCP - General Family Medicine 07/01/19 [place] A 06/26/24 documented as of this encounter
--- OUTSIDE RECORDS SUMMARY | 2024-10-29 18:42 | XMS_ITS | Encounter Summary ---
Author Organization [employer] Address 75 [facility] 7t [place] [address] Care Team Providers Care Chief Telephone Operator Name Role Phone Brenna Liriano MD Primary Care Provide r Reason for Visit * Reason Comments Med Refill Encounter Details Date Type Department Care Team ([facility] st Contact Info) Description 06/12/2023 Refill [facility] MEDICINE 230 [place], [place] [phone] Brenna Liriano MD 230 [place], [place] [phone] Constipation, unspecified constipation type Social History Tobacco [...] Description 10/30/2024 11:00 AM EDT Medication Management [address] [address] 01/06/2025 10:00 AM EDT Clinical Support [address] [address] 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 RN documented as of this encounter Visit Diagnoses Diagnosis Constipation, unspecified constipation type documented in this encounter Care Teams Chief Telephone Operator Relationship Specialty Start Date End Date Brenna Liriano MD [address] [place] [address] PCP - General Family Medicine 07/01/19 [place] [facility] 06/26/24 documented as of this encounter
--- OUTSIDE RECORDS SUMMARY | 2024-10-29 18:42 | XMS_ITS | Encounter Summary ---
Author Organization [employer] Address 75 [facility] 7t [place] [address] Care Team Providers Care Methods Time Analyst Name Role Phone Brenna Liriano MD Primary Care Provide r Reason for Visit * Reason Onset Date Comments Recommend MEDICAL LAB SPECIALIST Tier 2 10/09/2024 Encounter Details Date Type Department Care Team ([facility] st Contact Info) Description 10/09/2024 Telephone [facility] MEDICINE 230 [place] [address] 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, GUILLE Recommend MEDICAL LAB SPECIALIST Tier 2 Social History Tobacco Use Types [...] - 10/09/2024 7:30 AM EST What MEDICAL LAB SPECIALIST Tier would you like this patient to be? I recommend Tier 2, please let me know if you agree or would rather patient be in another MEDICAL LAB SPECIALIST Tier. Tier 1 = HIGH RISK, Monthly MEDICAL LAB SPECIALIST visits Tier 2 = MODerate RISK, Q3 Month visits Tier 3 = LOW RISK = Q4-6 month visits documented in this encounter Plan of Treatment Upcoming Encounters Date Type Department Care Team (Late st Contact Info) Description 10/30/2024 11:00 AM EDT Medication Management [address] [address] 01/06/2025 10:00 AM EDT Clinical Support [address] [address] 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, RN documented as of this encounter Visit Diagnoses Not on filedocumented in this encounter Care Teams Methods Time Analyst Relationship Specialty Start Date End Date Brenna Liriano MD [address] [place] [address] PCP - General Family Medicine 07/01/19 Geovanny A 06/26/24 documented as of this encounter
--- OUTSIDE RECORDS SUMMARY | 2024-10-29 18:43 | XMS_ITS | Encounter Summary ---
Author Organization [employer] Address [address] [place] [address] 7t [place] [address] Care Team Providers Care Draw End Hand Name Role Phone Brenna Liriano MD Primary Care Provide r Reason for Visit * Reason Onset Date Comments Hospital Follow-up 06/25/2024 Encounter Details Date Type Department Care Team ([facility] Contact Info) Description 06/25/2024 Telephone [facility] MEDICINE 230 [place], [place] [phone] Brenna Liriano MD 230 [place], [place] [phone] Hospital Follow-up Social History Tobacco Use Types [...] from pt requesting a HDF appt. [place] [facility] of admission: Asthma Discharge date: 06/18/24 Diagnosed: 06/24/24 *Send message to [place] Clinical Care Coordinators documented in this encounter Plan of Treatment Upcoming Encounters Date Type Department Care Team (Late st Contact Info) Description 10/30/2024 11:00 AM EDT Medication Management [address] [address] 01/06/2025 10:00 AM EDT Clinical Support [facility] MEDICINE [address] [place] [address] 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, GUILLE documented as of this encounter Visit Diagnoses Not on filedocumented in this encounter Care Teams Draw End Hand Relationship Specialty Start Date End Date Brenna Liriano MD [address] [place] [address] PCP - General Family Medicine 07/01/[facility] 06/[facility] documented as of this encounter
--- OUTSIDE RECORDS SUMMARY | 2024-10-29 18:43 | XMS_ITS | Encounter Summary ---
Author Organization [employer] [facility] Address [address] [place] [address] Care Team Providers Care Therapeutic Mentor Name Role Phone Brenna Liriano MD Primary Care Provide r Encounter Details Date Type Department Care Team (Late Contact Info) Description 08/10/2022 [facility] Health Information Management 230 [place] [address] Brenna Liriano MD 230 [place] [address] Social History Tobacco Use Types Packs/Day Years [...] Description 10/30/2024 11:00 AM EDT Medication Management [facility] MEDICINE [address] [place] [phone] 01/06/2025 10:00 AM EDT Clinical Support [facility] MEDICINE [address] [place] [address] [phone] 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 RN documented as of this encounter Visit Diagnoses Not on filedocumented in this encounter Care Teams Therapeutic Mentor Relationship Specialty Start Date End Date Brenna Liriano MD [address] [place] [address] PCP - General Family Medicine 07/01/19 Geovanny CHO 06/26/24 documented as of this encounter
--- OUTSIDE RECORDS SUMMARY | 2024-10-29 18:43 | XMS_ITS | Encounter Summary ---
Author Organization [employer] Address 75 [facility] 7t [place] [address] Care Team Providers Care Gliding Pilot Instructor Name Role Phone Brenna Liriano MD Primary Care Provide r Reason for Visit * Reason Comments Med Refill Encounter Details Date Type Department Care Team ([facility] st Contact Info) Description 10/27/2024 Refill [facility] MEDICINE 230 [place], [place] [phone] Brenna Liriano MD 230 [place], [place] [phone] Essential hypertension Social History Tobacco Use Types [...] 10/30/2024 11:00 AM EDT Medication Management [address] [address] 01/06/2025 10:00 AM EDT Clinical Support [address] [address] 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 RN documented as of this encounter Visit Diagnoses Diagnosis Essential hypertension Unspecified essential hypertension documented in this encounter Care Teams Gliding Pilot Instructor Relationship Specialty Start Date End Date Brenna Liriano MD [address] [place] [address] PCP - General Family Medicine 07/01/19 Geovanny GONZALEZA 06/26/24 documented as of this encounter
--- OUTSIDE RECORDS SUMMARY | 2024-10-29 18:43 | XMS_ITS | Encounter Summary ---
Author Organization [employer] Address 75 [facility] 7t [place] [address] Care Team Providers Care Division Supervisor Name Role Phone Brenna Liriano MD Primary Care Provide r Reason for Visit * Reason Onset Date Comments Med Refill 10/07/2024 Encounter Details Date Type Department Care Team ([facility] st Contact Info) Description 10/07/2024 Telephone [facility] MEDICINE 230 [place], [place] [phone] Brenna Liriano MD 230 [place], [place] [phone] Med Refill Social History Tobacco Use Types [...] from PCP today, no tramadol refill until FAIRING WORKER initial visit completed. Spoke with patient today and pt Is scheduled for 10/09/24. * Telephone Encounter - Melchor Ortega - 10/07/2024 3:05 PM EST TC from pt requesting medication refill. Medications needing refill : traMADol (Ultram) 50 MG tablet To be sent to: [facility] - [place], [place] - [phone] - [place] - [address] documented in this encounter Plan of Treatment Upcoming Encounters Date Type Department Care Team (Late st Contact Info) Description 10/30/2024 11:00 AM EDT Medication Management [facility] MEDICINE [address] [place] [address] 01/06/2025 10:00 AM EDT Clinical Support [facility] MEDICINE [address] [place] [address] Avleina Sterling RN documented as of this encounter Visit Diagnoses Not on filedocumented in this encounter Care Teams Division Supervisor Relationship Specialty Start Date End Date Brenna Liriano MD [address] [place] [address] PCP - General Family Medicine 07/01/19 Geovanny CHO 06/26/24 documented as of this encounter
--- OUTSIDE RECORDS SUMMARY | 2024-10-29 18:43 | XMS_ITS | Encounter Summary ---
Author Organization [employer] Address 75 [facility] 7t [place] [address] Care Team Providers Care Belt Fixer Name Role Phone Brenna Liriano MD Primary Care Provide r Encounter Details Date Type Department Care Team (Late st Contact Info) Description 10/20/2024 Telephone [facility] MEDICINE 230 [place], [place] [phone] Brenna Liriano MD 230 [place], [place] [phone] Social History Tobacco Use Types Packs/Day Years [...] for patient to contact Anna Beckwith at [phone]. documented in this encounter Plan of Treatment Upcoming Encounters Date Type Department Care Team (Late st Contact Info) Description 10/30/2024 11:00 AM EDT Medication Management [address] [address] 01/06/2025 10:00 AM EDT Clinical Support [address] [address] 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 RN documented as of this encounter Visit Diagnoses Not on filedocumented in this encounter Care Teams Belt Fixer Relationship Specialty Start Date End Date Brenna Liriano MD [address] [place] [address] PCP - General Family Medicine 07/01/19 [facility] [facility] 06/26/24 documented as of this encounter
--- OUTSIDE RECORDS SUMMARY | 2024-10-29 18:43 | XMS_ITS | Encounter Summary ---
Author Organization [employer] [facility] Address [address] [place] [address] 7t [place] [address] Care Team Providers Care Plant Guard Name Role Phone Brenna Liriano MD Primary Care Provide r Reason for Visit * Reason Comments Med Refill Encounter Details Date Type Department Care Team (Late Contact Info) Description 10/23/2022 Refill [facility] MEDICINE [address] [place] [address] [phone] Hina Mccormack MD [address] [place] [address] [phone] Other chronic pain Social History Tobacco Use [...] Medication Management [facility] MEDICINE [address] [place] [phone] 01/06/2025 10:00 AM EDT Clinical Support [address] [phone] 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 RN documented as of this encounter Visit Diagnoses Diagnosis Other chronic pain documented in this encounter Care Teams Plant Guard Relationship Specialty Start Date End Date Brenna Liriano MD [address] [place] [address] [place] [address] PCP - General Family Medicine 07/01/19 Geovanny [facility] 06/26/24 documented as of this encounter
--- OUTSIDE RECORDS SUMMARY | 2024-10-29 18:43 | XMS_ITS | Encounter Summary ---
Author Organization [employer] Address 75 [facility] 7t [place] [address] Care Team Providers Care Wood Web Weaving Machine Operator Name Role Phone Brenna Liriano MD Primary Care Provide r Reason for Visit * Reason Comments Med Refill Encounter Details Date Type Department Care Team ([facility] st Contact Info) Description 09/30/2024 Refill [facility] MEDICINE 230 [place], [place] [phone] Brenna Liriano MD 230 [place], [place] [phone] Social History Tobacco Use Types Packs/Day Years [...] t he electric, gas, oil or water Resource [employer] threatened to shut off services in your [...] 10/30/2024 11:00 AM EDT Medication Management [address] [address] 01/06/2025 10:00 AM EDT Clinical Support [address] [address] 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 RN documented as of this encounter Visit Diagnoses Not on filedocumented in this encounter Care Teams Wood Web Weaving Machine Operator Relationship Specialty Start Date End Date Brenna Liriano MD [address] [place] [address] PCP - General Family Medicine 07/01/19 Geovanny GONZALEZA 06/26/24 documented as of this encounter
--- OUTSIDE RECORDS SUMMARY | 2024-10-29 18:43 | XMS_ITS | Clinical Summary ---
Author Organization [employer] Address [address] [place] [address] 7t [place] [address] Care Team Providers Care Electronic Integrated Systems Mechanic Name Role Phone Brenna Liriano MD Primary [...] Q 12hrs Patient will be contacted by GRINDING OPERATOR nurse Tobacco dependence syndrome 06/04/2015 Microalbuminuria 06/23/2014 [...] emergency department for further evaluation, case presented [facility] [place] by [place] Acute upper respiratory infection 11/02/2022 02/16/2023 Mild intermittent asthma 04/02/2018 Obesity (BMI 30-39.9) 04/02/20182022 Schizoaffective disorder, bipolar type 03/13/2017 02/16/2023 Primary osteoarthritis of left knee 01/30/2017 02/16/2023 Encounters Date Type Department Care Team Description 10/27/2024 Refill [facility] MEDICINE [address], [place] [address] Brenna Liriano MD Essential hypertension 10/20/2024 Telephone [facility] MEDICINE [address], [place] [address] Brenna Liriano MD 10/09/2024 10:00 AM EST Clinical Support [facility] MEDICINE [address], [place] [address] 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 RN Chronic bilateral low back pain without sciatica (Primary Dx) 10/09/2024 Telephone [facility] MEDICINE [address] [place] [address] 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 RN UTOX Pos MTD 10/09/2024 Orders Only [facility] MEDICINE [address], [place] [address] Brenna Liriano MD Type 2 diabetes mellitus with hyperglycemia, without long-term current use of insulin ([facility]) (Primary Dx); Chronic schizoaffective schizophrenia ([facility]) 10/09/2024 Refill [facility] MEDICINE [address] [place] [address] 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, leacher bilateral low back pain without sciatica (Primary Dx) 10/09/2024 Travel 10/09/2024 Telephone [facility] MEDICINE [address], [place] [address] 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 RN Recommend GRINDING OPERATOR Tier 2 10/07/2024 Telephone [facility] MEDICINE [address] [place] [address] Brenna Liriano MD Med Refill 10/03/2024 Refill [facility] MEDICINE [address] [place] [address] Brenna Liriano MD Primary osteoarthritis of both knees; Chronic bilateral low back pain without sciatica 09/30/2024 Refill [facility] MEDICINE [address] [place] [address] Brenna Liriano MD Uncomplicated asthma, unspecified asthma severity, unspecified whether persistent 09/30/2024 Refill [facility] MEDICINE [address] [place] [address] Brenna Liriano MD 09/18/2024 Telephone [facility] MEDICINE [address] [place] [address] Juanita Barragan MA OCTOBER RECALL 09/02/2024 Refill [facility] MEDICINE [address] [place] [address] Brenna Liriano MD Gastroesophageal reflux disease, unspecified whether esophagitis present 09/01/2024 Refill [facility] MEDICINE [address] [place] [address] Brenna Liriano MD Asthma, unspecified asthma severity, unspecified whether complicated, unspecified whether persistent 08/14/2024 Telephone [facility] MEDICINE [address] [place] [address] Juanita Barragan MA SEP RECALL from Last [...] Description 10/30/2024 11:00 AM EDT Medication Management [address] [address] 01/06/2025 10:00 AM EDT Clinical Support [address] [address] 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, GUILLE Health Maintenance Due Date [...] topic Meningococcal Vaccine Aged Out No lenny anukr eligible based on patient's age to complete [...] hyperglycemia, without long-term current use of insulin ([facility]) POCT GLYCATED HEMOGLOBIN, TOTAL Routine 07/15/2024 1:36 PM EST Type 2 diabetes mellitus with hyperglycemia, without long-term current use of insulin ([facility]) BI MAMMOGRAM SCREENING TOMOSYNTHESIS BILATERAL Routine 05/01/2024 [...] - 10/09/2024 10:43 AM EST UTOX cup Lot#[id number] Exp. 04/08/26 Internal Pass Control Brenna Brower MD POINT OF CARE TEST EN TER/EDIT ORDERABLES Final Result * Drug Monitoring, Methadone Metabolite, Screen, Urine (10/09/2024 10:00 AM EST) Methadone Screen, Urine Not Detected Not Detect ng/mL [facility] Comment:Methadone cut-off is 300 ng/mL.Positive results are unconfirmed and should not be used fornon-medical purposes. 10/09/2024 10:0 0 AM EST 10/09/2024 6:14 PM EST Brenna Brower MD LAB URINE ORDERABLES Final Result [facility] [address] [place] [phone] * (ABNORMAL) POCT HGB A1C (07/15/2024 1:36 PM EST) Hemoglobin A1C 6.0 4.0 - 6.0 % QC Media Lot # [id number] Lot# Expiration Date [id number] Blood 07/15/2024 1:36 PM EST Brenna Brower MD POINT OF CARE TEST EN TER/EDIT ORDERABLES Final Result * BI Mammogram Screening Tomosynthesis Bilateral (05/01/2024 3:00 PM EDT) Anatomical Region Laterality Modality Breast Bilateral Mammography 05/01/2024 3:00 PM EDT Narrative 05/15/2024 8:10 PM EDT ? [facility] ? [address] ?[place] [address] ? Mammography Report ? Signed ? Patient: Tang Tayla,Karina ?MR# ?? : [id number] ? : 1965 ?Acct:[id number] ? Age/Sex: 58 / F ?ADM Date: 05/01/24 ? Loc: HO.MAMMO ? Attending Dr: Brenna Brower MD ? Ordering Physician: Brenna Liriano MD ?Results: ?? 2Benign Findings ? Date of Service: 05/01/24 ?Follow Up: 1 Year From Orig ?? inal Mammogram ? Procedure(s): MM tomosynthesis screening BI ?? Accession Number(s): [id number] ? cc: Brenna Liriano MD ? EXAMINATION: [...] DD/ 1500 ? TD/TT: 05/01/24 1521 ? Ct Scan Technologist: ? Procedure Note [place], Image - 05/15/2024 [facility] [address] [place] [address] Mammography Report Signed Patient: Brenna Hope DMR# : [id number] : 1965Acct:[id number] Age/Sex: 58 / FADM Date: 05/01/24 Loc: HO.MAMMO Attending Dr: Brenna Brower MD Ordering Physician: Brenna Liriano MDResults: 2Benign Findings Date of Service: 05/01/24Follow Up: 1 Year From Orig inal Mammogram Procedure(s): MM tomosynthesis screening BI Accession Number(s): [id number] cc: Brenna Liriano MD EXAMINATION: MM SCREENING [...] OV> 05/15/242006 DD/ 99 TD/TT: 05/01/[address] Scan Technologist: us Brenna Brower MD IMG BI PROCEDURES Joe abdullahi Result - Final * (ABNORMAL) Lipid Panel with Reflex to Direct LDL (08/08/2023 11:13 AM EST) Triglycerides 106 <150 mg/dL [facility] Comment:Desirable Triglyceri de: less than 150 mg/dLBorderline High Triglyceride 150-199 mg/dLHigh Triglyceride: 200-499 mg/dLVery High Triglyceride: greater than or equal to 5OO mg/dL Cholesterol 203(H) <200 mg/dL [facility] Comment:Desirable Cholestero l: less than 200 mg/dLBorderline High Cholesterol: 200-239 mg/dLHigh Cholesterol: greater than 239 mg/dL LDL Cholesterol Calculated 135(H) <100 mg/dL [facility] Comment:Desirable LDL: less than 100 mg/dLNear Optimal/Above Optimal LDL: 110- 129 mg/dLBorderline High LDL: 130-159 mg/dLHigh LDL: 160-189 mg/dLVery High LDL: greater than or equal to 190 mg/dL HDL Cholesterol 47 >40 mg/dL [facility] Comment:Desirable HDL: great er than 40 mg/dL Note: This HDL assay may give artificially low results in patients with liver disease. Blood 08/08/2023 11:1 3 AM EST 08/08/2023 11:13 AM EST us Nyla Browne MD LAB BLOOD ORDERABLES Fin al Result [facility] [address] [place] [phone] [phone] * HPV mRNA E6/E7 (03/21/2017 12:00 AM EDT) HPV mRNA E6/E7 Not Detected NOT DETECTED [facility] Comment: This test was performed using the APTIMA(R) HPV Assay ([employer] This assay detects E6/E7 viral messenger RNA (mRNA) from 14 high-risk HPV types (16,18,31,33,35,39,45,51, 52,56,58,59,66,68). For additional information please refer to: http://education.[employer]/faq/IKP589m7 (This link is being provided for informational/ educational purposes only.) Test Performed by Belly BallotLetty, [facility], [address] [place] [phone] Eliseo Sierra M.D., Ph.D., Director of Laboratories , [facility] [id number] Please note: ??Effective 05/01/2016, HPV testing will be performed using [employer] APTIMA test which targets mRNA. Detecting mRNA instead of DNA, as in older methods, offers significant improvements in specificity. 03/21/2017 us Indira Estrada CNM HISTORICAL/NON ORDERABLE LABS Final Result Performing Organization Address City/[facility]/ZIP Co de Phone Number [facility] [address] from Last 3 Months or Most Recently Relevant to Health Maintenance Insurance [facility] [address] C[address] Care Teams Electronic Integrated Systems Mechanic Relationship Specialty Start Date End Date Brenna Liriano MD [address] [place] [phone] PCP - General Family Medicine [facility]
--- OUTSIDE RECORDS SUMMARY | 2024-10-29 18:43 | XMS_ITS | Encounter Summary ---
Author Organization [employer] Address [address] [facility] 7t [place] [address] Care Team Providers Care Hasher Operator Name Role Phone Brenna Liriano MD Primary Care Provide r Reason for Visit * Reason Comments Med Refill Encounter Details Date Type Department Care Team ([facility] st Contact Info) Description 12/18/2023 Refill [facility] MEDICINE [address] [place], [place] [phone] Brenna Liriano MD [address] [place], [place] [phone] Social History Tobacco Use Types Packs/Day Years [...] Description 10/30/2024 11:00 AM EDT Medication Management [address] [address] 01/06/2025 10:00 AM EDT Clinical Support [address] [address] 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 RN documented as of this encounter Visit Diagnoses Not on filedocumented in this encounter Care Teams Hasher Operator Relationship Specialty Start Date End Date Brenna Liriano MD [address] [place] [phone] PCP - General Family Medicine 07/01/19 [place] GONZALE[facility] 06/26/24 documented as of this encounter
--- OUTSIDE RECORDS SUMMARY | 2024-10-29 18:43 | XMS_ITS | Clinical Summary ---
Author Organization [address] [facility] Address [address] [place] [address] Phone Care Team Providers Care Round Kiln Drawer Name Role Phone Brenna Liriano MD Primary [...] with anxiety 02/03/2019 Overview (07/02/2024): Admission to [facility] 10/24/2018 for crisis and depression. HTN (hypertension) 02/03/2019 Microalbuminuria 02/03/2019 Obesity 02/03/2019 Onychomycosis 02/03/2019 Osteoarthritis 02/03/2019 Overview (07/02/2024): Knees, bilaterally. Schizoaffective disorder 02/03/2019 Type 2 diabetes mellitus with renal manifestatio ns 02/03/2019 Encounters Date Type Department Care Team Description 08/05/2024 2:30 PM EST Office Visit Orthopedic Surgery - [address] [phone] Carmelo Craig, DPM Tinea pedis [...] DX:Depre ssion with anxiety; COMMENT: Admission to [facility] 10/24/2018 for crisis and depression. Asthma 02/03/2019 DX:Asthma Onychomycosis 02/03/2019 DX:Onychomycosis Osteoarthritis 02/03/2019 DX:Osteoarthriti s; COMMENT: knees, bilaterally. HTN (hypertension) 02/03/2019 DX:HTN (hyper tension) COPD (chronic obstructive pu lmonary disease) ([facility]) 02/03/2019 DX:COPD (chronic obstructive pulmonary disease) ([facility]) Schizoaffective disorder ([facility]) 02/03/2019 DX:Schizoaffective disorder ([facility]) Microalbuminuria 02/03/2019 DX:Microalbumin uria Type 2 diabetes mellitus wit h renal manifestations ([facility]) 02/03/2019 DX:Type 2 diabetes mellitus with renal manifestations ([facility]) Tobacco use 02/03/2019 DX:Tobacco use Chronic [...] PM EDT Office Visit Orthopedic Surgery - [place] [address] [address] Carmelo Craig, DPM [address] [address] Health Maintenance Due Date Last Done Comments [...] topic Insurance MEDICAID - [place] Care Teams Round Kiln Drawer Relationship Specialty Start Date End Date Brenna Liriano MD [address] [place] [address] [place] [phone] PCP - General 08/30/23
--- OUTSIDE RECORDS SUMMARY | 2024-10-29 18:43 | XMS_ITS | Encounter Summary ---
Author Organization [employer] Address [address] [place] [address] 7t [place] [address] Care Team Providers Care Sister Superior Name Role Phone Brenna Liriano MD Primary Care Provide r Reason for Visit * Reason Onset Date Comments Med Refill Reschedule [facility] Initial appt - 3rd attempt 2024 Encounter Details Date Type Department Care Team (Late st Contact Info) Description 10/03/[address] [facility] MEDICINE [address] [place] [address] Brenna Liriano MD [address] [place] [address] Primary osteoarthritis of both knees; Chronic bilateral [...] not be done until she comes to [facility] appointment thank you. TC via [id number], [facility] Initial appt X 3 scheduled for 10/09/24 @ 10am. Pt stated she will be coming with [facility]. * Telephone Encounter - Brenna Brower MD - 10/07/2024 11:47 AM EST Please let patient know refill will not be done until she comes to [facility] appointment thank you documented in this encounter Plan of Treatment Upcoming Encounters Date Type Department Care Team (Late st Contact Info) Description 10/30/2024 11:00 AM EDT Medication Management [facility] MEDICINE [address] [place] [phone] 01/06/2025 10:00 AM EDT Clinical Support [address] [address] 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, RN documented as of this encounter Visit Diagnoses Diagnosis Primary osteoarthritis of both knees Chronic bilateral low back pain without sciatica documented in this encounter Care Teams Sister Superior Relationship Specialty Start Date End Date Brenna Liriano MD [address] [facility] [place] [address] PCP - General Family Medicine 07/01/19 [place] 06/26/24 documented as of this encounter
--- OUTSIDE RECORDS SUMMARY | 2024-10-29 18:43 | XMS_ITS | Encounter Summary ---
Author Organization [employer] Address [address] [facility] 7t [place] [address] Care Team Providers Care Grain Operations Manager Name Role Phone Brenna Liriano MD Primary Care Provide r Reason for Visit * Reason Comments Med Refill Encounter Details Date Type Department Care Team ([facility] st Contact Info) Description 09/30/2024 Refill [facility] MEDICINE [address] [place], [place] [phone] Brenna Liriano MD [address] [place], [place] [phone] Uncomplicated asthma, unspecified asthma severity, unspecified whether [...] Description 10/30/2024 11:00 AM EDT Medication Management [address] [address] 01/06/2025 10:00 AM EDT Clinical Support [address] [address] 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 RN documented as of this encounter Visit Diagnoses Diagnosis Uncomplicated asthma, unspecified asthma severity, unspecified whether persistent documented in this encounter Care Teams Grain Operations Manager Relationship Specialty Start Date End Date Brenna Liriano MD [address] [place] [phone] PCP - General Family Medicine 07/01/19 [facility] 06/26/24 documented as of this encounter
--- NOTE | 2024-10-29 19:18 | PC.NURSE ---
this rn assumed care of pt, respirations even and unlabored. vss. pt noted to have blood running at this time, pt offers no complaints.
[2024-10-29 19:28] LABS: OBS Int Ctl Valid YES; OBS1 NEGATIVE (NEGATIVE)
--- NOTE | 2024-10-29 20:05 | PC.NURSE ---
educational interpreter at bedside. pt requesting purewick and mesh underwear at this time. pt assisted in boost in bed and provided with purewick and mesh underwear. pt offers no other complaints at this time.
--- NOTE | 2024-10-29 20:43 | PC.NURSE ---
second unit of blood administered at this time. per provider, okay to run unit at 150ml/hr at this time. pt tolerating well, denies any complaints.
--- NOTE | 2024-10-29 21:47 | PC.NURSE ---
pt daughter Lanny contacted at this time, reports she will come oyster picker pt upon discharge.
--- NOTE | 2024-10-29 22:34 | PC.NURSE ---
pt blood transfusions complete at this time,vss. анна christian aware.
== END 2024-10-29 23:23 | disposition home or self-care (01) ==
PROVIDERS: Physician Assistant Medical; Emergency Provider Emergency Medicine Emergency Medical Services
DX: D64.9 Anemia, unspecified (principal); R79.89 Other specified abnormal findings of blood chemistry; E11.9 Type 2 diabetes mellitus without complications; I10 Essential (primary) hypertension; Z79.899 Other long term (current) drug therapy; Z87.891 Personal history of nicotine dependence
CPT/HCPCS: 36415; 36430; 80048; 80076; 82272; 83690; 85025; 85610; 86850; 86900; 86901; 86923; 99284; 99285; P9016

== ENCOUNTER 2024-11-04 08:49 | Outpatient (REF) | payer MEDICAID, SELFPAY ==
[2024-11-04 10:06] LABS: Alanine Aminotransferase 9 U/L (0-31); Albumin Level 3.7 g/dL (3.5-5.0); Alkaline Phosphatase 81 U/L (39-117); Anion Gap 12 (12-20); Aspartate Amino Transferase 16 U/L (5-31); Bilirubin Total 0.3 mg/dL (0.0-1.0); Blood Urea Nitrogen 12 mg/dL (9-16); Calcium 8.6 mg/dL (8.4-10.2); Carbon Dioxide 28 mmol/L (22-29); Chloride 107 mmol/L (96-108); Cholesterol 115 mg/dL (<200); Estimated Glomerular Filt Rate > 60; Glucose Random 110 mg/dL (60-115); HDL Cholesterol 41 mg/dL (>40); LDL Cholesterol Calculated 63 mg/dL (<100); Potassium 3.9 mmol/L (3.3-5.1); Sodium 143 mmol/L (135-145); Total Protein 6.8 g/dL (6.5-8.0); Triglycerides 57 mg/dL (<150)
[2024-11-04 10:34] LABS: Vitamin B12 367 pg/mL (200-900)
== END 2024-11-04 08:50 | disposition home or self-care (01) ==
LOC: HO.LAB 08:49
PROVIDERS: PCP Internal Medicine; Visit Provider Internal Medicine
DX: E11.65 Type 2 diabetes mellitus with hyperglycemia (principal); J96.11 Chronic respiratory failure with hypoxia
CPT/HCPCS: 36415; 80053; 80061; 82607

== ENCOUNTER 2024-11-28 19:30 | Emergency (ER) | payer MEDICAID, SELFPAY ==
--- NOTE | ~2024-11-28 | XR_ITS ---
CLINICAL HISTORY: constipation, pain 1 view abdomen Comparison: None Findings: Large amount of stool throughout the colon and rectum. Gas distended right hepatic flexure. No pneumoperitoneum or pneumatosis. IMPRESSION: Large amount of stool throughout the colon and rectum. This document has been electronically signed by: Gita Pinedo MD on 11/28/2024 21:06:26
--- NOTE | 2024-11-28 19:39 | ED_ITS ---
HPI - General Adult General Chief complaint: Abdominal Pain Stated complaint: rib pain/rt should neck pain/constipated Time Seen by Provider: 11/28/24 22:15 Source: patient, RN notes reviewed, old records reviewed and clerical supervisor Mode of arrival: ambulatory Limitations: language barrier History of Present Illness ED Provider: Jimmie HPI narrative: 59-year-old female with past medical history significant for schizophrenia, hypertension, asthma, chronic constipation presents for evaluation of abdominal pain and right shoulder pain. patient reports that her last bowel movement was 2 days ago on Sunday the pain radiates up her right side of the abdomen into her shoulder. Denies cough, shortness of breath, chest pain. History of chronic constipation but is unsure of what medications that she takes to help with her bowel regimen Related Data Home Medications ?Medication ?Instructions ?Recorded ?Confirmed sennosides 8.6 mg tablet (senna) 17.2 mg PO BEDTIME PRN constipation 12/13/22 06/19/24 albuterol sulfate 90 mcg/actuation 2 puff inhalation Q6H PRN 06/18/23 06/19/24 aerosol inhaler (Ventolin HFA) Shortness Of Breath Or Wheezing sucralfate 1 gram tablet 1 g PO TID 06/18/23 06/19/24 tramadol 50 mg tablet 50 mg PO DAILY PRN Severe Pain 06/18/23 06/19/24 (Scale Score 7-10) divalproex 500 mg tablet,extended 1,000 mg PO BEDTIME 10/01/23 06/19/24 release 24 hr clonazepam 0.5 mg tablet 0.5 mg PO DAILY 03/29/24 06/19/24 lisinopril 10 mg tablet 10 mg PO DAILY 03/29/24 06/19/24 atorvastatin 40 mg tablet 40 mg PO BEDTIME 06/18/24 06/19/24 omeprazole 20 mg capsule,delayed 20 mg PO BID@0630,1630 06/18/24 06/19/24 release capsaicin 0.025 % topical cream 1 appl topical DAILY PRN Minor 06/19/24 06/19/24 Aches and Pains clozapine 100 mg tablet 300 mg PO BEDTIME 06/19/24 06/19/24 clozapine 25 mg tablet 25 mg PO BEDTIME 06/19/24 06/19/24 divalproex 250 mg tablet,extended 250 mg PO BEDTIME 06/19/24 06/19/24 release 24 hr docusate sodium 100 mg capsule 100 mg PO BID PRN Constipation 06/19/24 06/19/24 fluticasone propionate 110 2 puff inhalation BID 06/19/24 06/19/24 mcg/actuation HFA aerosol inhaler loratadine 10 mg tablet 10 mg PO DAILY 06/19/24 06/19/24 magnesium hydroxide 400 mg/5 mL 5 ml PO DAILY PRN Constipation 06/19/24 06/19/24 oral suspension (Milk of Magnesia) polyethylene glycol 3350 17 gram 17 g PO DAILY Constipation 06/19/24 06/19/24 oral powder packet fluoxetine 20 mg capsule 20 mg PO QAM 07/21/24 lactulose 10 gram/15 mL oral 45 ml PO QAM 07/21/24 solution olanzapine 5 mg tablet 5 mg PO BEDTIME 07/21/24 Previous Rx's ?Medication ?Instructions ?Recorded clonazepam 1 mg tablet 1 mg PO BEDTIME #30 tabs 07/02/23 fluoxetine 10 mg capsule 30 mg (3 x 10 mg) PO DAILY #90 caps 07/02/23 metformin 500 mg tablet,extended 500 mg PO BID #60 tabs 07/02/23 release 24 hr montelukast 10 mg tablet 10 mg PO DAILY #30 tabs 07/02/23 albuterol sulfate 2.5 mg/3 mL 2.5 mg (3 mL) inhalation Q4H PRN 06/24/24 (0.083 %) solution for nebulization wheezing #60 mL cefuroxime axetil 500 mg tablet 500 mg PO Q12H #14 tabs 06/24/24 nicotine 21 mg/24 hr daily 1 patch transdermal Q24H #14 ea 06/24/24 transdermal patch diltiazem HCl 120 mg 120 mg PO DAILY #90 caps 10/27/24 capsule,extended release 24 hr lactulose 20 gram oral packet 20 g PO DAILY PRN constipation #30 11/29/24 ea polyethylene glycol 3350 17 17 g PO DAILY #238 grams 11/29/24 gram/dose oral powder (Miralax) Allergies Allergy/AdvReac Type Severity Reaction Status Date / Time diazepam [From Valium] Allergy Unknown Unknown Verified 11/28/24 19:45 haloperidol [From Haldol] Allergy Unknown Unknown Verified 11/28/24 19:45 Penicillins Allergy Unknown Unknown Verified 11/28/24 19:45 risperidone [From Risperdal] Allergy Unknown Unknown Verified 11/28/24 19:45 aspirin [Aspirin] AdvReac Intermediate Vomiting Verified 11/28/24 19:45 trazodone [TRAZODONE] AdvReac Intermediate NAUSEA & Verified 11/28/24 19:45 VOMITING Review of Systems 2 Constitutional: Constitutional: Denies body ache(s), Denies chills, Denies fever(s) and Denies headache(s) Eyes: Eyes: Denies blurry vision ENT: Denies vertigo and Denies headache(s) Cardiovascular: Cardiovascular: Denies chest pain and Denies dyspnea Respiratory: Respiratory: Denies cough and Denies dyspnea Gastrointestinal: Gastrointestinal: Reports abdominal pain, Denies hematochezia, Reports constipation, Denies diarrhea, Denies loose stools, Denies nausea and Denies vomiting Musculoskeletal: Musculoskeletal: Denies back pain, Reports radiating pain into limb and Reports stiffness Integumentary/Breasts: Skin/Breast: Denies rash Neurologic: Denies vertigo and Denies headache(s) Psychiatric: Psychiatric: Denies anxiety [facility] Past Medical History Medical History Anemia Diabetes Morbid obesity due to excess calories Anxiety Chronic mental illness COPD (chronic obstructive pulmonary disease) Hyperlipidemia Schizophrenia Asthma Surgical History Hx of colonoscopy History of tubal ligation H/O right knee surgery History of appendectomy Family History Family History Father Throat cancer Mother CVA (cerebral vascular accident) Brother Drug overdose Sister No problems noted. Sister No problems noted. Son No problems noted. Son No problems noted. 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 Other:: Lanny Soto, Inocencio Soto, - foster parents Housing: House Do you presently have visiting nurse or other home services: Yes Unable to assess alcohol history related to: Unknown Alcohol intake: never Comment: pt moves well s sba Patient Tobacco Use Status: Former Tobacco user Tobacco use type: Cigarette Cigarettes Per Day: 10 e-Cigarette/Vaping Use: Never Used Second Hand Smoke Exposure: No Advance Directives: Yes Advance Directives on File: Yes Advance Directives Date on File: 10/29/24 Do you have a plan to hurt others: No Plan service: No Current occupational status: disabled Sexual orientation: Straight/Heterosexual Physical Exam ED Vital Signs: Vital Signs - 24 hr 11/28/24 19:43 11/28/24 23:36 Temperature 96.8 F 97.7 F Pulse Rate 105 H 105 H Respiratory Rate 16 18 Blood Pressure 113/48 L 115/68 Pulse Oximetry 96 95 Oxygen Delivery Method Room Air Room Air BMI result Body Mass Index 33.5 Const General: healthy appearing, comfortable, no acute distress, alert and awake Nutritional Appearance: well nourished HENMT Head: Yes normocephalic and Yes atraumatic Eyes Eyelids: Yes eyelids normal Conjunctivae: conjunctivae normal Sclerae: sclerae normal Corneas: corneas normal Pupils: Equal, round and reactive pupils present EOM: EOMs intact bilaterally Neck Neck: Yes full ROM Resp Effort & Inspection: normal respiratory effort, able to speak in complete sentences and not labored GI Inspection: Yes distended Palpation (GI): Soft to palpation, not firm, Tenderness to palpation present (GI) (minimal diffuse tenderness), no guarding and not rigid Skin General skin exam: no rashes or lesions noted and elasticity normal Neuro Cranial nerves: Yes CN's II-XII intact bilaterally, Yes Equal, round and reactive pupils present and Yes Bilaterally intact EOM present Cognition (Neuro): normal cognition Extrem Other: Moving all extremities well without any obvious deformities Course Course Course Narrative: This is an RME performed by Haris Bah CNP: Additional HPI, ROS, PE not included below will be deferred to primary provider. Patient is a 59-year-old female who presents emergency department for evaluation of multiple complaints. For the past 3 days she has been experiencing pain to the right shoulder as well as the right lateral neck. Also having abdominal pain primarily in the lower abdomen, has been constipated without a bowel movement for the past 3-4 days, and feels as though her stomach is bloated, on evaluation it is somewhat firm and distended. Denies any nausea or vomiting. Denies any genitourinary symptoms. Plan: Serum labs, KUB Reevaluation(s) Reevaluation #1: the patient had a large bowel movement after receiving the Fleet enema. Enemas. She was requesting a prescription for lactulose which I will give her a short course for Time: 00:32 Medications Administered Discontinued Medications Generic Name Dose Route Start Last Admin Trade Name Maday PRN Reason Stop Dose Admin Lactulose 40 gm 11/28/24 22:30 11/28/24 22:42 Lactulose 20 Gm/30 Ml Solution PO 11/28/24 22:31 40 gm ONCE ONE Administration Mineral Oil 133 ml 11/28/24 22:30 11/28/24 22:42 Mineral Oil Enema 133 Ml Enema OH 11/28/24 22:31 133 ml ONCE ONE Administration Sodium Biphosphate/Sodium Phosphate 133 ml 11/29/24 00:03 11/29/24 00:07 Sodium Phosphate,Wells-Dibasic 133 Ml Enema OH 11/29/24 00:04 133 ml ONCE ONE Administration Medical Decision Making Medical Decision Making [facility] Narrative: 59-year-old female with past medical history as above presents for evaluation of abdominal pain and distention. On exam her abdomen is distended, she was minimally tender diffusely but no focal tenderness, there is no rebound or guarding. The patient does have a mild leukocytosis to 12.2 left shift. She has a chronic anemia that is fine. This is a microcytic anemia. Chemistries are without any significant abnormalities. KUB was ordered which shows large stool burden but no evidence of obstruction. There was a large gas bubble in the hepatic flexure which is likely causing referred pain to her shoulder. She has no fever to suggest infectious process, multiple despite her current constipation. We will treat her with lactulose and an enema. On review of her external med rec, it appears that she was on senna and docusate sodium p.r.n., it is unclear if she has been asking for these medications. Differential Diagnosis Differential Diagnoses: The differential diagnosis associated with the presentation includes constipation Bowel obstruction Abdominal pain Acute appendicitis less likely UTI Admission/Observation Consideration of admission/observation: Escalation of care including admission/observation considered Lab Data [facility] Lab Attestation statement: I reviewed the patient's lab results. as above 11/28/24 19:53 11/28/24 19:53 Labs: Lab Results 11/28/24 11/28/24 Range/Units 19:53 20:26 WBC 12.2 H (4.8-10.8) X10*3/uL RBC 4.21 (4.20-5.50) X10*6/uL Hgb 9.5 L D (12.0-16.0) g/dl Hct 31.5 L D (37.0-47.0) % MCV 74.8 L (80.0-98.0) fL MCH 22.6 L (27.0-33.0) pg MCHC 30.2 L (31.0-35.0) g/dl RDW 25.9 H (11.0-16.0) % Plt Count 374 (160-400) X10*3/uL MPV Not Reportable Immature Gran % (Auto) 0.4 (0.0-0.4) % Neut % (Auto) 62.1 (45-73) % Lymph % (Auto) 28.5 (20-40) % Wells % (Auto) 8.3 (2-11) % Eos % (Auto) 0.5 (0-4) % Baso % (Auto) 0.2 (0-2) % Lymph # (Auto) 3.5 (1.2-4.9) X10*3/uL Wells # (Auto) 1.0 (0.1-1.2) X10*3/uL Eos # (Auto) 0.1 (0.0-0.4) X10*3/uL Baso # (Auto) 0.0 (0.0-0.2) X10*3/uL Abs Immat Gran (auto) 0.05 H (0.00-0.03) X10*3/uL Absolute Neuts (auto) 7.6 (2.0-8.3) x10*3/uL Absolute Nucleated RBC 0.000 (0.0-0.012) X10*3/uL Nucleated RBC % (auto) 0.0 (0.0-0.2) /100WBC Smear Tech's Comments VERIFIED Sodium 137 (135-145) mmol/L Potassium 4.3 (3.3-5.1) mmol/L Chloride 102 (96-108) mmol/L Carbon Dioxide 24 (22-29) mmol/L Anion Gap 15 (12-20) BUN 19 H (9-16) mg/dL Creatinine 0.69 (0.5-1.4) mg/dL Estim Creat Clear Calc 87.7 Estimated GFR > 60 Random Glucose 115 (60-115) mg/dL Calcium 9.0 (8.4-10.2) mg/dL Magnesium 1.8 (1.6-2.6) mg/dL Total Bilirubin 0.3 (0.0-1.0) mg/dL Direct Bilirubin 0.1 (0.0-0.5) mg/dL AST 22 (5-31) U/L ALT 19 (0-31) U/L Alkaline Phosphatase 91 (39-117) U/L Total Protein 7.1 (6.5-8.0) g/dL Albumin 4.0 (3.5-5.0) g/dL Lipase 12 (8-78) U/L Urine Color Dark Yellow Urine Appearance Clear Urine pH 5.5 (5.0-9.0) Ur Specific [place] >= 1.030 H (1.005-1.025) Urine Protein 30 (1+) H (Neg-Trace) mg/dL Urine Glucose (UA) Negative (Negative) mg/dL Urine Ketones 15 (Negative) mg/dL Urine Blood Negative (Negative) Urine Nitrite Negative (Negative) Ur Leukocyte Esterase Negative (Negative) Urine RBC 0-2 (0-2) /HPF Urine WBC 0-5 (0-5) /HPF Ur Squamous Epith Cells 3-5 (0-2) /HPF Urine Bacteria None Seen (None Seen) Hyaline Casts 3-5 (0-2) /LPF Influenza Type A (PCR) NEGATIVE (Negative) Influenza Type B (PCR) NEGATIVE (Negative) RSV RNA Qual (PCR) NEGATIVE (Negative) SARS-CoV-2 RNA (RT-PCR) NEGATIVE (Negative) Discharge Plan Discharge Clinical Impression: Constipation Patient Disposition: Home, Self-Care Instructions: Constipation (ED), High Fiber Diet (ED), Fleet Enema (ED) Additional Instructions: Your x-ray shows a significant amount of constipation. You should be taking MiraLax every day. Increase fluid and fiber intake in your diet. I also recommend that you take docusate sodium at least once daily every day and not only as a p.r.n. you may use Fleet enemas as needed for constipation take lactulose as directed for constipation Prescriptions: New lactulose 20 gram packet 20 g PO DAILY PRN (Reason: constipation) Qty: 30 0RF polyethylene glycol 3350 [Miralax] 17 gram/dose powder 17 g PO DAILY Qty: 238 0RF No Action diltiazem HCl 120 mg capsule,extended release 24hr 120 mg PO DAILY Qty: 90 1RF albuterol sulfate [Ventolin HFA] 90 mcg/actuation HFA aerosol inhaler 2 puff INHALATION Q6H PRN (Reason: Shortness Of Breath Or Wheezing) sucralfate 1 gram tablet 1 g PO TID tramadol 50 mg tablet 50 mg PO DAILY PRN (Reason: Severe Pain (Scale Score 7-10)) fluoxetine 10 mg Capsule 30 mg PO DAILY Qty: 90 0RF clonazepam 1 mg tablet 1 mg PO BEDTIME Qty: 30 0RF montelukast 10 mg tablet 10 mg PO DAILY Qty: 30 0RF metformin 500 mg tablet extended release 24 hr 500 mg PO BID Qty: 60 0RF sennosides [senna] 8.6 mg tablet 17.2 mg PO BEDTIME PRN (Reason: constipation) clonazepam 0.5 mg tablet 0.5 mg PO DAILY lisinopril 10 mg tablet 10 mg PO DAILY atorvastatin 40 mg tablet 40 mg PO BEDTIME omeprazole 20 mg capsule,delayed release(DR/EC) 20 mg PO BID@0630,1630 capsaicin 0.025 % Cream 1 appl TOPICAL DAILY PRN (Reason: Minor Aches and Pains) Rx Instructions: do not wash area for at least 30 min after application clozapine 25 mg tablet 25 mg PO BEDTIME Rx Instructions: TDD= 325 MG loratadine 10 mg tablet 10 mg PO DAILY fluticasone propionate 110 mcg/actuation HFA aerosol inhaler 2 puff INHALATION BID polyethylene glycol 3350 17 gram powder in packet 17 g PO DAILY magnesium hydroxide [Milk of Magnesia] 400 mg/5 mL suspension 5 ml PO DAILY PRN (Reason: Constipation) docusate sodium 100 mg capsule 100 mg PO BID PRN (Reason: Constipation) clozapine 100 mg tablet 300 mg PO BEDTIME Patient Comments: TDD = 325 MG Rx Instructions: TDD= 325 MG divalproex 250 mg tablet extended release 24 hr 250 mg PO BEDTIME Rx Instructions: TDD= 1250 MG nicotine 21 mg/24 hr patch 24 hour 1 patch transdermal Q24H Qty: 14 0RF albuterol sulfate 2.5 mg /3 mL (0.083 %) solution for nebulization 2.5 mg inhalation Q4H PRN (Reason: wheezing) Qty: 60 0RF cefuroxime axetil 500 mg Tablet 500 mg PO Q12H Qty: 14 0RF lactulose 10 gram/15 mL solution 45 ml PO QAM olanzapine 5 mg tablet 5 mg PO BEDTIME fluoxetine 20 mg capsule 20 mg PO QAM divalproex 500 mg tablet extended release 24 hr 1,000 mg PO BEDTIME Rx Instructions: TDD = 1250 MG Print Language: Tamazight
[2024-11-28 19:43] VITALS: BP 113/48; PULSE 105; RESP 16; TEMP 36; O2SAT 96; BMI 33.5
[2024-11-28 20:08] LABS: Basophils Percent Auto 0.2 % (0-2); Eosinophils Absolute Auto 0.1 X10*3/uL (0.0-0.4); Eosinophils Percent Auto 0.5 % (0-4); Hematocrit 31.5 % (37.0-47.0); Hemoglobin 9.5 g/dl (12.0-16.0); Imm Gran Abs Auto 0.05 X10*3/uL (0.00-0.03); Imm Gran Pct Auto 0.4 % (0.0-0.4); Lymphocytes Absolute Auto 3.5 X10*3/uL (1.2-4.9); Lymphocytes Percent Auto 28.5 % (20-40); MANUAL DIFF FLAG SCAN; Mean Corpuscular HGB Conc 30.2 g/dl (31.0-35.0); Mean Corpuscular Hemoglobin 22.6 pg (27.0-33.0); Mean Corpuscular Volume 74.8 fL (80.0-98.0); Monocytes Percent Auto 8.3 % (2-11); Neutrophils Absolute Auto 7.6 x10*3/uL (2.0-8.3); Neutrophils Percent Auto 62.1 % (45-73); PLT CLUMP 1; Red Blood Count 4.21 X10*6/uL (4.20-5.50); Red Cell Distribution Width 25.9 % (11.0-16.0); SCAN SMEAR FLAG 1; White Blood Count 12.2 X10*3/uL (4.8-10.8)
[2024-11-28 20:20] LABS: Alanine Aminotransferase 19 U/L (0-31); Alkaline Phosphatase 91 U/L (39-117); Anion Gap 15 (12-20); Aspartate Amino Transferase 22 U/L (5-31); Bilirubin Direct 0.1 mg/dL (0.0-0.5); Bilirubin Total 0.3 mg/dL (0.0-1.0); Blood Urea Nitrogen 19 mg/dL (9-16); Carbon Dioxide 24 mmol/L (22-29); Chloride 102 mmol/L (96-108); Creatinine Clr Calc Pharmacy 87.7; Estimated Glomerular Filt Rate > 60; Glucose Random 115 mg/dL (60-115); Lipase 12 U/L (8-78); Magnesium 1.8 mg/dL (1.6-2.6); Potassium 4.3 mmol/L (3.3-5.1); Sodium 137 mmol/L (135-145); Total Protein 7.1 g/dL (6.5-8.0)
[2024-11-28 20:27] LABS: Platelet Count 374 X10*3/uL (160-400)
[2024-11-28 20:28] LABS: SLIDE REVIEW VERIFIED
[2024-11-28 20:33] LABS: Appearance Urine Clear; Color Urine Dark Yellow; Glucose Urine UA Negative (Negative); Leukocyte Esterase Urine Negative (Negative); Nitrite Urine Negative (Negative); PH 5.5 (5.0-9.0); Specific Gravity - Urine >= 1.030 (1.005-1.025); UMIC TRIGGER UACC YES; Urine Blood Negative (Negative); Urine Ketones 15 mg/dL (Negative); Urine Protein 30 (1+) mg/dL (Neg-Trace)
--- OUTSIDE RECORDS SUMMARY | 2024-11-28 20:33 | XMS_ITS | Encounter Summary ---
Author Organization [email or web address] Address [address] [facility] [address] [place] [address] Care Team Providers Care Director Client Services Name Role Phone Brenna Liriano MD Primary Care Provide r Encounter Details Date Type Department Care Team (Late st Contact Info) Description 11/18/2024 Orders Only [facility] MED & PEDS [address] [place], [place] [phone] Provider, MD Ameya Social History Tobacco Use Types Packs/Day Years [...] Care Team (Late st Contact Info) Description 12/11/2024 10:00 AM EDT Medication Management [address] [address] 02/17/2025 2:00 PM EDT Clinical Support [address] [address] 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 RN documented as of this encounter Procedures Procedure Name Priority Date/Time Associated Diagnosis Comments COLONOSCOPY Routine 04/02/2024 9:55 AM EDT documented in this encounter Results * Hm Colonoscopy (04/02/2024 9:55 AM EDT) Colonoscopy Normal Normal Narrative Jacqueline Valiente - 04/02/2024 9:55 AM EDT Repeat Colonoscopy in 5 years or earlier if clinically indicated see the external hospital admission note on 04/02/2024 us Historical Provider [facility] Edited Result - Final documented in this encounter Visit Diagnoses Not on filedocumented in this encounter Care Teams Director Client Services Relationship Specialty Start Date End Date Brenna Liriano MD [address] [place] [phone] PCP - General Family Medicine [facility] documented as of this encounter
--- OUTSIDE RECORDS SUMMARY | 2024-11-28 20:33 | XMS_ITS | Encounter Summary ---
Author Organization [employer] Address [address] [place] [address] 7t [place] [address] Care Team Providers Care Sales And Marketing Engineer Name Role Phone Brenna Liriano MD Primary Care Provide r Reason for Visit * Reason Onset Date Comments Hospital Follow-up 06/25/2024 Encounter Details Date Type Department Care Team ([facility] Contact Info) Description 06/25/2024 Telephone [facility] MEDICINE [address] [place], [place] [phone] Brenna Liriano MD [address] [place], [place] [phone] Hospital Follow-up Social History Tobacco Use Types [...] from pt requesting a HDF appt. Hospital: [facility] Date of admission: Asthma Discharge date: 06/18/24 Diagnosed: 06/24/24 *Send message to [place] Clinical Care Coordinators documented in this encounter Plan of Treatment Upcoming Encounters Date Type Department Care Team (Late st Contact Info) Description 12/11/2024 10:00 AM EDT Medication Management [address] [address] 02/17/2025 2:00 PM EDT Clinical Support [facility] MEDICINE [address] [place] [phone] 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, GUILLE documented as of this encounter Visit Diagnoses Not on filedocumented in this encounter Care Teams Sales And Marketing Engineer Relationship Specialty Start Date End Date Brenna Liriano MD [address] [place] [phone] PCP - General Family Medicine 07/01/19 [facility] 06/26/24 documented as of this encounter
--- OUTSIDE RECORDS SUMMARY | 2024-11-28 20:33 | XMS_ITS | Encounter Summary ---
Author Organization [facility] Address [address] [place] [address] 7t [place] [address] Care Team Providers Care Curator Of Manuscripts Name Role Phone Brenna Liriano MD Primary Care Provide r Reason for Visit * Reason Comments Med Refill Encounter Details Date Type Department Care Team (Late Contact Info) Description 10/23/[address] [facility] MEDICINE [address] [place] [address] [phone] Hina Mccormack MD [address] [place] [phone] Other chronic pain Social History Tobacco Use [...] Department Care Team (Late Contact Info) Description 12/11/2024 10:00 AM EDT Medication Management [facility] [address] [place] [address] [phone] 02/17/2025 2:00 PM EDT Clinical Support [address] [phone] 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 RN documented as of this encounter Visit Diagnoses Diagnosis Other chronic pain documented in this encounter Care Teams Curator Of Manuscripts Relationship Specialty Start Date End Date Brenna Liriano MD [address] [place] [address] [place] [address] PCP - General Family Medicine 07/01/19 [place] [facility] 06/26/24 documented as of this encounter
--- OUTSIDE RECORDS SUMMARY | 2024-11-28 20:33 | XMS_ITS | Encounter Summary ---
Author Organization [employer] Address [address] [facility] 7[address] [place] [address] Care Team Providers Care Residential Real Estate Assistant Name Role Phone Brenna Liriano MD Primary Care Provide r Reason for Visit * Reason Comments Med Refill Encounter Details Date Type Department Care Team ([facility] st Contact Info) Description 03/11/2024 Refill [facility] MEDICINE [address] [place], [place] [phone] Brenna Liriano MD [address] [place], [place] [phone] Asthma, unspecified asthma severity, unspecified whether complicated, [...] Description 12/11/2024 10:00 AM EDT Medication Management [address] [address] 02/17/2025 2:00 PM EDT Clinical Support [address] [address] 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 RN documented as of this encounter Visit Diagnoses Diagnosis Asthma, unspecified asthma severity, unspecified whether complicated, unspecified whether persistent documented in this encounter Care Teams Residential Real Estate Assistant Relationship Specialty Start Date End Date Brenna Liriano MD [address] [place] [phone] PCP - General Family Medicine 07/01/19 [facility] 06/26/24 documented as of this encounter
--- OUTSIDE RECORDS SUMMARY | 2024-11-28 20:33 | XMS_ITS | Encounter Summary ---
Author Organization [employer] [facility] Address [address] [place] [address] Care Team Providers Care Box Estimator Name Role Phone Brenna Liriano MD Primary Care Provide r Encounter Details Date Type Department Care Team (Late Contact Info) Description 08/10/2022 [facility] Health Information Management [address] [place] [address] Brenna Liriano MD [address] [place] [address] Social History Tobacco Use Types Packs/Day Years [...] Description 12/11/2024 10:00 AM EDT Medication Management [facility] MEDICINE [address] [place] [phone] 02/17/2025 2:00 PM EDT Clinical Support [facility] MEDICINE [address] [place] [address] [phone] 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 RN documented as of this encounter Visit Diagnoses Not on filedocumented in this encounter Care Teams Box Estimator Relationship Specialty Start Date End Date Brenna Liriano MD [address] [place] [phone] PCP - General Family Medicine 07/01/19 [place] [facility] 06/26/24 documented as of this encounter
--- OUTSIDE RECORDS SUMMARY | 2024-11-28 20:33 | XMS_ITS | Encounter Summary ---
Author Organization [employer] Address [address] [place] [address] 7t [place] [address] Care Team Providers Care Front Office Supervisor Name Role Phone Brenna Liriano MD Primary Care Provide r Encounter Details Date Type Department Care Team ([facility] Contact Info) Description 02/08/2023 Orders Only [facility] CH[facility] MED & PEDS [address] [place], [place] [phone] Enma Sparks LPN Social History Tobacco Use [...] Description 12/11/2024 10:00 AM EDT Medication Management [address] [address] 02/17/2025 2:00 PM EDT Clinical Support [address] [address] 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 RN documented as of this encounter Visit Diagnoses Not on filedocumented in this encounter Care Teams Front Office Supervisor Relationship Specialty Start Date End Date Brenna Liriano MD [address] [facility] [place] [address] PCP - General Family Medicine 07/01/19 [place] [facility] 06/26/24 documented as of this encounter
--- OUTSIDE RECORDS SUMMARY | 2024-11-28 20:33 | XMS_ITS | Encounter Summary ---
Author Organization [employer] Address 75 [facility] 7t [place] [address] Care Team Providers Care Scalder Name Role Phone Brenna Liriano MD Primary Care Provide r Reason for Visit * Reason Comments Med Refill Encounter Details Date Type Department Care Team ([facility] st Contact Info) Description 09/14/2023 Refill [facility] MEDICINE 230 [place], [place] [phone] Brenna Liriano MD 230 [place], [place] [phone] Constipation, unspecified constipation type Social History Tobacco [...] Description 12/11/2024 10:00 AM EDT Medication Management [address] [address] 02/17/2025 2:00 PM EDT Clinical Support [address] [address] 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 RN documented as of this encounter Visit Diagnoses Diagnosis Constipation, unspecified constipation type documented in this encounter Care Teams Scalder Relationship Specialty Start Date End Date Brenna Liriano MD [address] [place] [phone] PCP - General Family Medicine 07/01/19 Paulina CARLOSA 06/26/24 documented as of this encounter
--- OUTSIDE RECORDS SUMMARY | 2024-11-28 20:33 | XMS_ITS | Encounter Summary ---
Author Organization [employer] Address 75 [facility] 7t [place] [address] Care Team Providers Care Ceramic Coater Name Role Phone Brenna Liriano MD Primary Care Provide r Reason for Visit * Reason Onset Date Comments Nurse Triage 11/10/2024 Encounter Details Date Type Department Care Team ([facility] st Contact Info) Description 11/10/2024 Telephone [facility] MEDICINE 230 [place], [place] [phone] Brenna Liriano MD 230 [place], [place] [phone] Nurse Triage Social History Tobacco Use Types Packs/Day Years [...] encounter Miscellaneous Notes * Telephone Encounter - Sheron Greenberg RN - 11/10/2024 4:06 PM EDT Triage call with [facility] Certified [place] Administrator ID [id number]. Pt called regarding constipation. Pt reports last BM was 11/08/24 and stool normal no difficulty. Pt is calling for refill of miralax. Pt is requesting to have two boxes , one for home and one for program. Pt is advised will send this request forward to PCP and nursing team for follow up prn. Pt agrees with this plan and will wait to hear from pharmacy. Protocol Used: Medication Refill and Renewal Call (Adult) Protocol-Based Disposition: Discuss with PCP and Callback by Nurse Today Positive Triage Question: * Prescription refill request for NON-ESSENTIAL medicine (i.e., no harm to patient if med not taken) and triager unable to refill per department policy * All higher-acuity triage questions were negative Care Advice Discussed: * Reasons To Call Back - You have more questions * Telephone Encounter - Pravin Beckwith - 11/10/2024 3:12 PM EDT Symptom: Constipation Outcome: Schedule an appointment to be seen within 24 hours Reason: Caller denied all higher acuity questions Please contact pt at [phone]. (Icelandic Speaking) documented in this encounter Plan of Treatment Upcoming Encounters Date Type Department Care Team ([facility] Contact Info) Description 12/11/2024 10:00 AM EDT Medication Management [address] [address] 02/17/2025 2:00 PM EDT Clinical Support [address] [address] 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, RN documented as of this encounter Visit Diagnoses Not on filedocumented in this encounter Care Teams Ceramic Coater Relationship Specialty Start Date End Date Brenna Liriano MD [address] [place] [phone] PCP - General Family Medicine [facility] documented as of this encounter
--- OUTSIDE RECORDS SUMMARY | 2024-11-28 20:33 | XMS_ITS | Encounter Summary ---
Author Organization [employer] [facility] Address [address] [place] [address] 7t [place] [address] Care Team Providers Care Ibm Bpm Developer Name Role Phone Brenna Liriano MD Primary Care Provide r Encounter Details Date Type Department Care Team ([facility] Contact Info) Description 02/12/2023 Orders Only [address] [address] Kristen Hernandez LPN Social History [...] Description 12/11/2024 10:00 AM EDT Medication Management [address] [address] 02/17/2025 2:00 PM EDT Clinical Support [address] [address] 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 RN documented as of this encounter Visit Diagnoses Not on filedocumented in this encounter Care Teams Ibm Bpm Developer Relationship Specialty Start Date End Date Brenna Liriano MD [address] [place] [address] [place] [address] PCP - General Family Medicine 07/01/19 Geovanny CHO 06/26/24 documented as of this encounter
--- OUTSIDE RECORDS SUMMARY | 2024-11-28 20:33 | XMS_ITS | Encounter Summary ---
Author Organization [employer] Address 75 [facility] 7t [place] [address] Care Team Providers Care Director Of Tax Services Name Role Phone Brenna Liriano MD Primary Care Provide r Reason for Visit * Reason Comments Med Refill Encounter Details Date Type Department Care Team ([facility] st Contact Info) Description 07/24/2023 Refill [facility] [address] [place], [place] [phone] Brenna Liriano MD 230 [place] [address] Social History Tobacco Use Types Packs/Day Years [...] Description 12/11/2024 10:00 AM EDT Medication Management [address] [address] 02/17/2025 2:00 PM EDT Clinical Support [address] [address] 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 RN documented as of this encounter Visit Diagnoses Not on filedocumented in this encounter Care Teams Director Of Tax Services Relationship Specialty Start Date End Date Brenna Liriano MD [address] [place] [address] PCP - General Family Medicine 07/01/19 [facility] 06/26/24 documented as of this encounter
--- OUTSIDE RECORDS SUMMARY | 2024-11-28 20:33 | XMS_ITS | Clinical Summary ---
Author Organization [facility] Address 175 [place] [address] Phone Care Team Providers Care Wafer Production Lead Worker Name Role Phone Brenna Liriano MD [...] 02/03/2019 Chronic constipation 02/03/2019 COPD (chronic obstructive pu lmonary disease) ([facility] V24, [facility] V28) 02/03/2019 Depression with anxiety 02/03/2019 Overview (07/02/2024): Admission to [facility] 10/24/2018 for crisis and depression. HTN (hypertension) 02/03/2019 Microalbuminuria 02/03/2019 Obesity 02/03/2019 Onychomycosis 02/03/2019 Osteoarthritis 02/03/2019 Overview (07/02/2024): Knees, bilaterally. Schizoaffective disorder ([facility] V24, [facility] V 28) 02/03/2019 Type 2 diabetes mellitus wit h renal manifestations ([facility] V24, [facility] V28) 02/03/2019 Encounters Date Type Department Care Team Description 11/03/2024 2:30 PM EDT Office Visit Orthopedic Surgery - [address] [phone] Carmelo Craig, DPM Hallux rigidus of right foot (Primary Dx); Hallux rigidus of left foot; Dermatophytosis of nail; Metatarsalgia of both feet; Pain in toe of right foot; Pain in toe of left foot; Corns and callosities; Type II diabetes mellitus with peripheral circulatory disorder ([facility] V24, [facility] V28); Diabetic mononeuropathy simplex ([facility] V24, [facility] V28); Tinea pedis of both feet from Last 3 Months Medical History Medical History Date Comments Depression with anxiety 02/03/2019 DX:Depre ssion with anxiety; COMMENT: Admission to [facility] 10/24/2018 for crisis and depression. Asthma 02/03/2019 DX:Asthma Onychomycosis 02/03/2019 DX:Onychomycosis Osteoarthritis 02/03/2019 DX:Osteoarthriti s; COMMENT: knees, bilaterally. HTN (hypertension) 02/03/2019 DX:HTN (hyper tension) COPD (chronic obstructive pu lmonary disease) ([facility] V24, [facility] V28) 02/03/2019 DX:COPD (chronic o bstructive pulmonary disease) ([facility]) Schizoaffective disorder ([facility] V24, [facility] V28) 02/03/2019 DX:Schizoaffective disorder ([facility]) Microalbuminuria 02/03/2019 DX:Microalbumin uria Type 2 diabetes mellitus wit h renal manifestations ([facility] V24, [facility] V28) 02/03/2019 DX:Type 2 diabetes mellitus with renal manifestations ([facility]) Tobacco use 02/03/2019 DX:Tobacco use [...] - - Weight 85.3 kg (188 lb) 11/03/2024 2:28 PM EDT Height 157.5 cm (5' 2.01 ) 11/03/2024 2:28 PM ED T Body Mass Index 34.38 11/03/2024 2:28 PM EDT Plan of Treatment Upcoming Encounters Date Type Department Care Team (Late st Contact Info) Description 02/03/2025 1:30 PM EDT Office Visit Orthopedic Surgery - [place] [address] [phone] Carmelo Craig DPM [address] [address] Health Maintenance Due Date Last Done Comments Breast Cancer Screening 1965 Diabetes: Annual Foot Exam 1975 Diabetes: Annual Retina Eye Exam 1975 Cervical Cancer Screening: Pap Smear 1986 Zoster Vaccines (1 of 2) 2015 Cholesterol Screening (Lipid Panel) 03/18/2024 Colorectal Cancer Screening: Colonoscopy 03/18/2024 Depression Screening 03/18/2024 Diabetes: Annual Urine Albumin-Creatinine Ratio (uACR) 03/18/2024 HIV Screening 03/18/2024 Hepatitis C Screening 03/18/2024 Social Influencers of Health Screening 03/18/2024 COVID-19 Vaccine ( season) 2024 01/30/2022, 01/26/2021, 12/23/2020 Diabetes: Blood Sugar Control Test (HGBA1C) 01/12/2025 07/15/2024 Influenza Vaccine (Season Ended) 2025 06/01/2023, 06/21/2022, 07/11/2021, Additional history exists Diabetes: Annual GFR (Glomerular Filtration Rate) 07/21/2025 07/21/2024, 06/18/2024 Hypertension/CHF/CAD Annual BMP Blood Test 07/21/2025 07/21/2024, 06/18/2024 DTaP,Tdap,and Td Vaccines (5 - Td or Tdap) 06/21/2032 06/21/2022, 12/16/2010, 11/27/2005, Additional history exists RSV Immunization Adult Patients (1 - 1-dose 75+ series) 2040 Hepatitis [...] age to complete this topic Meningococcal B Vaccine Aged Out No l onger eligible based on patient's age to complete this topic RSV Immunization Patients Under 20 months Aged Out No longer eligible based on patient's age to complete this topic Varicella Vaccines Aged Out No longer eligible based on patient's age to complete this topic Insurance [place]ICA[place] - [place] Care Teams Wafer Production Lead Worker Relationship Specialty Start Date End Date Brenna Liriano MD [address] [place] [phone] PCP - General 08/30/23
--- OUTSIDE RECORDS SUMMARY | 2024-11-28 20:33 | XMS_ITS | Encounter Summary ---
Author Organization [employer] [facility] Address [address] [place] [address] 7t [place] [address] Care Team Providers Care Yard Stocker Name Role Phone Brenna Liriano MD Primary Care Provide r Encounter Details Date Type Department Care Team (Late st Contact Info) Description 11/28/2024 Orders Only GENERIC EXTERNAL DATA DEPARTMENT Provider, Generic External Data Social History Tobacco Use Types Packs/Day Years [...] Description 12/11/2024 10:00 AM EDT Medication Management [facility] [address] [place] [address] 02/17/2025 2:00 PM EDT Clinical Support [facility] [address] [place] [address] 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 RN documented as of this encounter Procedures Procedure Name Priority Date/Time Associated Diagnosis Comments SLIDE REVIEW Routine 11/28/2024 7:53 PM EDT CBC WITH AUTO DIFFERENTIAL Routine 11/28/2024 7:53 PM EDT MAGNESIUM Routine 11/28/2024 7:53 PM EDT LIPASE Routine 11/28/2024 7:53 PM EDT HEPATIC FUNCTION PANEL Routine 11/28/2024 7:53 PM EDT BASIC METABOLIC PANEL Routine 11/28/2024 7:53 PM EDT documented in this encounter Results * Slide Review (11/28/2024 7:53 PM EDT) Slide Review VERIFIED [facility] 11/28/2024 7:53 PM EDT 11/28/2024 7:56 PM EDT us Generic External Data Provider LAB BLOOD ORDERAB LES Final Result [facility] [address] [place] [phone] * Lipase (11/28/2024 7:53 PM EDT) Pathologist [facility] Lipase 12 8 - 78 U/L [facility] 11/28/2024 7:53 PM EDT 11/28/2024 7:56 PM EDT Generic External Data Provider LAB BLOOD ORDERAB LES Final Result Performing Organization Address [facility] Co de Phone Number [facility] [address] [place] [phone] * Magnesium (11/28/2024 7:53 PM EDT) [facility] Magnesium 1.8 1.6 - 2.6 mg/dL [facility] 11/28/2024 7:53 PM EDT 11/28/2024 7:56 PM EDT Buz External Data Provider LAB BLOOD ORDERAB LES Final Result Performing Organization Address [facility] Co de Phone Number [facility] [address] [place] [phone] * (ABNORMAL) Basic Metabolic Panel (11/28/2024 7:53 PM EDT) [facility] Sodium 137 135 - 145 mmol/L [facility] Potassium 4.3 3.3 - 5.1 mmol/L [facility] Chloride 102 96 - 108 mmol/L [facility] Carbon Dioxide 24 22 - 29 mmol/L [facility] Anion Gap 15 12 - 20 [facility] Urea Nitrogen (BUN) 19(H) 9 - 16 mg/dL [facility] Creatinine, Serum 0.69 0.5 - 1.4 mg/dL [facility] Creatinine Clr Calc Pharmacy 87.7 [facility] Comment:Provided height and weight: 157.48 cm,83.1 kg.eGFR (calculated from the MDRD study equation) and eCrCl(calculated from the Cockcroft-Gault equation) are based ondifferent parameters and may not yield comparable results.If eCrCl result is absurd, please check patient'sheight/weight. Estimated Glomerular Filt Rate >60 [facility] Comment:Chronic Kidney Disea se: Estimated GFR < 60 mL/min/1.85u1Kngihv Kidney Disease: Estimated GFR < 15 mL/min/1.73m2 Glucose 115 60 - 115 mg/dL [facility] Calcium 9.0 8.4 - 10.2 mg/dL [facility] 11/28/2024 7:53 PM EDT 11/28/2024 7:56 PM EDT Generic External Data Provider LAB BLOOD ORDERAB LES Final Result Performing Organization Address [facility] Co de Phone Number [facility] [address] [place] [phone] * Hepatic Function Panel (11/28/2024 7:53 PM EDT) Bilirubin, Total 0.3 0.0 - 1.0 mg/dL [facility] Bilirubin, Direct 0.1 0.0 - 0.5 mg/dL [facility] Aspartate Amino Transferase 22 5 - 31 U/L [facility] Alanine Aminotransferase 19 0 - 31 U/L [facility] Total Protein 7.1 6.5 - 8.0 g/dL [facility] Albumin Level 4.0 3.5 - 5.0 g/dL [facility] Alkaline Phosphatase 91 39 - 117 U/L [facility] 11/28/2024 7:53 PM EDT 11/28/2024 7:56 PM EDT Generic External Data Provider LAB BLOOD ORDERAB LES Final Result Performing Organization Address [facility] Co de Phone Number [facility] [address] [place] [phone] * (ABNORMAL) CBC auto differential (11/28/2024 7:53 PM EDT) White Blood Count 12.2(H) 4.8 - 10.8 X10*3/uL [facility] Red Blood Count 4.21 4.20 - 5.50 X10*6/uL [facility] Hemoglobin 9.5(L) 12.0 - 16.0 g/dl [facility] Hematocrit 31.5(L) 37.0 - 47.0 % [facility] Mean Corpuscular Volume 74.8(L) 80.0 - 98.0 fL [facility] Mean Corpuscular Hemoglobin 22.6(L) 27.0 - 33.0 pg [facility] Mean Corpuscular HGB Conc 30.2(L) 31.0 - 35.0 g/dl [facility] Red Cell Distribution Width 25.9(H) 11.0 - 16.0 % [facility] Platelet Count 374 160 - 400 X10*3/uL [facility] Neutrophils Percent Auto 62.1 45 - 73 % [facility] Imm Gran Pct Auto 0.4 0.0 - 0.4 % [facility] Lymphocytes Percent Auto 28.5 20 - 40 % [facility] Monocytes Percent Auto 8.3 2 - 11 % [facility] Eosinophils Percent Auto 0.5 0 - 4 % [facility] Basophils Percent Auto 0.2 0 - 2 % [facility] NRBC Pct Auto 0.0 0.0 - 0.2 /100WBC [facility] Neutrophils Absolute Auto 7.6 2.0 - 8.3 x10*3/uL [facility] Imm Gran Abs Auto 0.05(H) 0.00 - 0.03 X10*3/uL [facility] Lymphocytes Absolute Auto 3.5 1.2 - 4.9 X10*3/uL [facility] Monocytes Absolute Auto 1.0 0.1 - 1.2 X10*3/uL [facility] Eosinophils Absolute Auto 0.1 0.0 - 0.4 X10*3/uL [facility] Basophils Absolute Auto 0.0 0.0 - 0.2 X10*3/uL [facility] NRBC Abs Auto 0.000 0.0 - 0.012 X10*3/uL [facility] 11/28/2024 7:53 PM EDT 11/28/2024 7:56 PM EDT us Generic External Data Provider LAB BLOOD ORDERAB LES Edited Result - Final [facility] [address] [place] [phone] documented in this encounter Visit Diagnoses Not on filedocumented in this encounter Care Teams Yard Stocker Relationship Specialty Start Date End Date Brenna Liriano MD [address] [place] [phone] PCP - General Family Medicine 07/01/19 [facility] 06/26/24 documented as of this encounter
--- OUTSIDE RECORDS SUMMARY | 2024-11-28 20:33 | XMS_ITS | Encounter Summary ---
Author Organization [employer] Address [address] [facility] 7t [place] [address] Care Team Providers Care Carpenter Railcar Name Role Phone Brenna Liriano MD Primary Care Provide r Reason for Visit * Reason Onset Date Comments Med Refill 10/07/2024 Encounter Details Date Type Department Care Team ([facility] st Contact Info) Description 10/07/[address] [facility] MEDICINE 230 [place], [place] [phone] Brenna Liriano MD [address] [place], [place] [phone] Med Refill Social History Tobacco Use Types [...] from PCP today, no tramadol refill until HVAC MECHANICAL ENGINEER initial visit completed. Spoke with patient today and pt Is scheduled for 10/09/24. * Telephone Encounter - Melchor Ortega - 10/07/2024 3:05 PM EST TC from pt requesting medication refill. Medications needing refill : traMADol (Ultram) 50 MG tablet To be sent to: [facility] [place] - [phone] [place] - [address] documented in this encounter Plan of Treatment Upcoming Encounters Date Type Department Care Team (Late st Contact Info) Description 12/11/2024 10:00 AM EDT Medication Management [facility] MEDICINE [address] [place] [phone] 02/17/2025 2:00 PM EDT Clinical Support [address] [address] 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 RN documented as of this encounter Visit Diagnoses Not on filedocumented in this encounter Care Teams Carpenter Railcar Relationship Specialty Start Date End Date Brenna Liriano MD [address] [place] [phone] PCP - General Family Medicine 07/01/19 [facility] 06/26/24 documented as of this encounter
--- OUTSIDE RECORDS SUMMARY | 2024-11-28 20:33 | XMS_ITS | Encounter Summary ---
Author Organization [employer] Address 75 [facility] 7t [place] [address] Care Team Providers Care Manager Target Name Role Phone Brenna Liriano MD Primary Care Provide r Reason for Visit * Reason Onset Date Comments Appointment Request 10/31/2023 Encounter Details Date Type Department Care Team ([facility] st Contact Info) Description 10/31/2023 Telephone [facility] MEDICINE 230 [place], [place] [phone] Brenna Liriano MD 230 [place], [place] [phone] Appointment Request Social History Tobacco Use Types [...] PM EDT Tc from Veronica the patients caisson worker calling to cancel the PAP appt on 11/06 and would like to reschedule documented in this encounter Plan of Treatment Upcoming Encounters Date Type Department Care Team (Late st Contact Info) Description 12/11/2024 10:00 AM EDT Medication Management [address] [address] 02/17/2025 2:00 PM EDT Clinical Support [address] [address] 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, GUILLE documented as of this encounter Visit Diagnoses Not on filedocumented in this encounter Care Teams Manager Target Relationship Specialty Start Date End Date Brenna Liriano MD [address] [place] [phone] PCP - General Family Medicine 07/01/19 [place] [facility] 06/26/24 documented as of this encounter
--- OUTSIDE RECORDS SUMMARY | 2024-11-28 20:33 | XMS_ITS | Encounter Summary ---
Author Organization [employer] Address [address] [facility] 7t [place] [address] Care Team Providers Care Police Worker Name Role Phone Brenna Liriano MD Primary Care Provide r Reason for Visit * Reason Comments Med Refill Encounter Details Date Type Department Care Team ([facility] st Contact Info) Description 12/18/2023 Refill [facility] MEDICINE 230 [place], [place] [phone] Brenna Liriano MD 230 [place], [place] [phone] Social History Tobacco Use Types Packs/Day Years [...] 12/11/2024 10:00 AM EDT Medication Management [address] [address] 02/17/2025 2:00 PM EDT Clinical Support [address] [address] 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 RN documented as of this encounter Visit Diagnoses Not on filedocumented in this encounter Care Teams Police Worker Relationship Specialty Start Date End Date Brenna Liriano MD [address] [place] [address] PCP - General Family Medicine 07/01/19 [facility] 06/26/24 documented as of this encounter
--- OUTSIDE RECORDS SUMMARY | 2024-11-28 20:33 | XMS_ITS | Encounter Summary ---
Author Organization [employer] Address [address] [facility] 7t [place] [address] Care Team Providers Care Urban Gardening Specialist Name Role Phone Brenna Liriano MD Primary Care Provide r Reason for Visit * Reason Comments Med Refill Encounter Details Date Type Department Care Team ([facility] st Contact Info) Description 11/24/2024 Refill [facility] MEDICINE [address] [place], [place] [phone] Brenna Liriano MD 230 [place], [place] [phone] Social History Tobacco Use Types Packs/Day Years [...] t he electric, gas, oil or water Resolver threatened to shut off services in your [...] 12/11/2024 10:00 AM EDT Medication Management [address] [address] 02/17/2025 2:00 PM EDT Clinical Support [address] [address] 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 RN documented as of this encounter Visit Diagnoses Not on filedocumented in this encounter Care Teams Urban Gardening Specialist Relationship Specialty Start Date End Date Brenna Liriano MD [address] [place] [phone] PCP - General Family Medicine 07/01/19 [facility] 06/26/24 documented as of this encounter
--- OUTSIDE RECORDS SUMMARY | 2024-11-28 20:33 | XMS_ITS | Clinical Summary ---
Author Organization [employer] Address [address] [place] [address] [address] [place] [address] Care Team Providers Care Property Assistant Name Role Phone Brenna Liriano MD Primary Care Provide r Allergies Active Allergy Reactions Criticality Noted Date Comments Amoxicillin 11/01/2010 Other reaction(s): unspecified Diazepam 03/12/2020 Haloperidol 11/01/2010 Other reaction(s): unspecified Penicillin V 11/01/2010 Other reaction(s): unspecified Risperidone 11/01/2010 Other reaction(s): unspecified Medications clonazePAM (KlonoPIN) 0.5 MG tablet Take 0.5 mg by mouth in the morning. 023 Active clonazePAM (KlonoPIN) 1 MG tablet Take 1 mg by mouth at bedtime. 023 Active cloZAPine (Clozaril) 100 MG tablet Take 3 tablets by mouth at bedtime. TDD 325 mg at bedtime 023 Active cloZAPine (Clozaril) 25 MG tablet Take 1 tablet by mouth at bedtime. TD 325 mg at bedtime 023 Active fluticasone (Flonase) 50 MCG/ACT nasal spray SPRAY 2 SPRAYS INTO EACH NOSTRIL EVERY MORNING 48 g 023 Active dilTIAZem CD (Cardizem CD) 120 MG 24 hr capsule Take 1 capsule by mouth 1 (one) time each day. 023 Active divalproex (Depakote ER) 250 MG 24 hr tablet Take 1,250 mg by mouth at bedtime. Do not crush, chew, or split. Active FLUoxetine (PROzac) 10 MG capsule Take 3 capsules by mouth 1 (one) time each day. Active capsaicin (Zostrix) 0.025 % cream Apply topically if needed in the morning, at noon, in the evening, and at bedtime. Active docusate sodium (Colace) 100 MG capsule TAKE 1 CAPSULE BY MOUTH two (2) times a day NEEDED 180 capsule 3 024 Active albuterol (2.5 MG/3ML) 0.083% nebulizer solution Take 3 mL (2.5 mg) by nebulization every 6 (six) hours if needed for wheezing. USE 1 VIAL VIA NEBULIZER EVERY 4 HOURS NEEDED FOR WHEEZING OR SHORTNESS OF BREATH 90 mL 1 024 Active lactulose (Chronulac) 10 GM/15ML solutionIndicat ions:Chronic constipation TAKE 45 ML BY MOUTH IN THE MORNING DIRECTED 473 mL 1 024 Active senna (Senokot) 8.6 MG tabletIndicatio ns:Constipation , unspecified constipation type TAKE 2 TABLETS BY MOUTH AT BEDTIME NEEDED FOR CONSTIPATION 60 tablet 5 024 Active metFORMIN XR (Glucophage-XR) 500 MG 24 hr tablet TAKE 1 TABLET BY MOUTH two (2) times a day WITH MEALS 60 tablet 5 024 Active loratadine (Claritin) 10 MG tablet TAKE 1 TABLET BY MOUTH ONCE DAILY 30 tablet 5 024 Active omeprazole (PriLOSEC) [address] capsuleIndicati ons:Gastroesoph ageal reflux disease, unspecified whether esophagitis present TAKE 1 CAPSULE BY MOUTH two (2) times a day BEFORE MEALS 60 capsule 5 025 Active lisinopril 10 MG tablet TAKE 1 CAPSULE BY MOUTH IN THE EVENING 90 tablet 1 025 Active montelukast (Singulair) 10 MG tabletIndicatio ns:Uncomplicate d asthma, unspecified asthma severity, unspecified whether persistent TAKE 1 TABLET BY MOUTH IN THE MORNING 90 tablet 1 025 Active naloxone (Narcan) 4 mg/0.1 mL nasal sprayIndication s:Chronic bilateral low back pain without sciatica Administer 1 spray (4 mg) into affected nostril(s) if needed for opioid reversal. May repeat every 2-3 minutes if needed, alternating nostrils, until medical assistance becomes available. 2 each 3 025 2025 Active atorvastatin (Lipitor) 40 MG tabletIndicatio ns:Essential hypertension TAKE 1 TABLET BY MOUTH IN THE MORNING 90 tablet 1 025 Active traMADol (Ultram) 50 MG tabletIndicatio ns:Chronic bilateral low back pain without sciatica Take 1 tablet (50 mg) by mouth every 12 (twelve) hours if needed for severe pain for up to 28 days. Do not start before November 06, 2024. 56 tablet 025 2024 Active polyethylene glycol, PEG, 3350 (Miralax) 17 g packet MIX 1 PACKET WITH 8 OUNCES OF WATER OR JUICE AND DRINK THREE TIMES DAILY EVERY DAY NEEDED 90 each 2 Active ferrous sulfate (Fe Tabs) 325 (65 Fe) MG EC tablet Take 1 tablet (325 mg) by mouth every other day. Do not crush, chew, or split. 15 tablet 11 025 2025 Active albuterol (Ventolin HFA) 108 (90 Base) MCG/ACT inhalerIndicati ons:Asthma, unspecified asthma severity, unspecified whether complicated, unspecified whether persistent INHALE 2 PUFFS BY MOUTH INTO THE lungs EVERY 4 TO 6 HOURS NEEDED 18 g 2 025 Active sucralfate (Carafate) 1 g tablet TAKE 1 TABLET BY MOUTH THREE TIMES DAILY IN THE MORNING, AT NOON, AND AT BEDTIME 90 tablet 025 Active Flovent HFA 110 MCG/ACT inhaler inhale 2 puff by inhalation route 2 times every day 36 g 1 023 2024 Discontinued(M ed list cleanup (will not trigger notification to Pharmacy)) cloZAPine (Clozaril) 50 MG tablet Take 1 tablet by mouth in the morning. 023 2024 Discontinued(M ed list cleanup (will not trigger notification to Pharmacy)) polyethylene glycol, PEG, 3350 (Miralax) 17 g packet MIX 1 PACKET WITH 8 OUNCES OF WATER OR JUICE AND DRINK THREE TIMES DAILY EVERY DAY NEEDED 90 each 2 024 2024 Discontinued(R eorder (will not trigger notification to Pharmacy)) Mometasone Furoate (Asmanex HFA) 100 MCG/ACT aerosol Inhale 1 Act (100 mcg) 2 times daily. inhale 2 puff by inhalation route 2 times every day 13 g 3 024 2024 Discontinued(M ed list cleanup (will not trigger notification to Pharmacy)) nicotine (Nicoderm, Step 1) 21 MG/24HR patch Place 1 patch on the skin 1 (one) time each day at the same time. 024 2024 Discontinued(M ed list cleanup (will not trigger notification to Pharmacy)) albuterol (Ventolin HFA) 108 (90 Base) MCG/ACT inhalerIndicati ons:Asthma, unspecified asthma severity, unspecified whether complicated, unspecified whether persistent INHALE 2 PUFFS BY MOUTH INTO THE lungs EVERY 4 TO 6 HOURS NEEDED 18 g 2 025 2024 Discontinued(R eorder (will not trigger notification to Pharmacy)) sucralfate (Carafate) 1 g tablet TAKE 1 TABLET BY MOUTH 3 (THREE) TIMES A DAY 90 tablet 1 025 2024 Discontinued traMADol (Ultram) 50 MG tabletIndicatio ns:Chronic bilateral low back pain without sciatica Take 1 tablet (50 mg) by mouth every 12 (twelve) hours if needed for severe pain for up to 28 days. 56 tablet 025 2024 Discontinued(R eorder (will not trigger notification to Pharmacy)) doxycycline (Vibra-Tabs) 100 MG tablet Take 1 tablet (100 mg) by mouth 2 times daily for 7 days. Take with a full glass of water and do not lie down for at least 30 minutes after. 14 tablet 025 2024 Active Problems Problem Noted Date Diagnosed Date Chronic bilateral low back pain without sciatica 07/15/2024 Chronic respiratory failure with hypoxia Assessment & Plan (07/15/2024 5:04 PM EST): [...] Q 12hrs Patient will be contacted by [facility] nurse Tobacco dependence syndrome 06/04/2015 Microalbuminuria 06/23/2014 [...] emergency department for further evaluation, case presented [facility], patient will go by ambulance Acute upper respiratory infection 11/02/2022 02/16/2023 Mild intermittent asthma 04/02/2018 Obesity (BMI 30-39.9) 04/02/20182022 Schizoaffective disorder, bipolar type 03/13/2017 02/16/2023 Primary osteoarthritis of left knee 01/30/2017 02/16/2023 Encounters Date Type Department Care Team Description 11/28/2024 Orders Only GENERIC EXTERNAL DATA DEPARTMENT Provider, Generic External Data 11/24/[address] [facility] [address] [place] [address] Brenna Liriano MD 11/18/[address] [facility] [address] [place] [address] ProviderAmeya MD 11/17/2024 11:20 AM EDT Office Visit [facility] [address] [place] [address] Name, MD Donny Acute bacterial sinusitis (Primary Dx); Malaise and fatigue; Sore throat; Subacute cough; Nonintractable headache, unspecified chronicity pattern, unspecified headache type; Iron deficiency anemia due to chronic blood loss; Asthma, unspecified asthma severity, unspecified whether complicated, unspecified whether persistent 11/11/[address] [facility] [address] [place] [address] Brenna Liriano MD 11/10/[address] [facility] [address] [place] [phone] Brenna Liriano MD Nurse Triage 11/04/[address] [facility] [address] [place] [address] Brenna Liriano MD Chronic bilateral low back pain without sciatica 11/04/[address] [facility] [address] [place] [phone] Brenna Liriano MD 11/03/[address] [facility] [address] [place] [phone] Brenna Liriano MD Lab Orders 10/31/[address] [facility] [address] [place] [phone] Brenna Liriano MD 10/31/2024 Population Health Risk Score [facility] Department [address] [place] [address] [phone] Provider, Population Health Generic 10/30/2024 Travel 10/27/[address] [facility] [address] [place] [address] Brenna Liriano MD Essential hypertension 10/20/[address] [facility] [address] [place] [address] Brenna Liriano MD 10/09/2024 10:00 AM EST Clinical Support [facility] [address] [place] [address] 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 RN Chronic bilateral low back pain without sciatica (Primary Dx) 10/09/[address] [facility] [address] [place] [address] 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 RN UTOX Pos MTD 10/09/2024 Orders Only [facility] [address] [place] [address] Brenna Liriano MD Type 2 diabetes mellitus with hyperglycemia, without long-term current use of insulin ([facility]) (Primary Dx); Chronic schizoaffective schizophrenia ([facility]/HCC) 10/09/[address] [facility] [address] [place] [address] 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 RN Chronic bilateral low back pain without sciatica (Primary Dx) 10/09/2024 Travel 10/09/[address] [facility] [address] [place] [address] 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 RN Recommend [facility] Tier 2 10/07/[address] [facility] [address] [place] [address] Brenna Liriano MD Med Refill 10/03/[address] [facility] [address] [place] [address] Brenna Liriano MD Primary osteoarthritis of both knees; Chronic bilateral low back pain without sciatica 09/30/2024 Refill [facility] [address] [place] [address] Brenna Liriano MD Uncomplicated asthma, unspecified asthma severity, unspecified whether persistent 09/30/2024 Refill [facility] [address] [place] [address] Brenna Liriano MD 09/18/[address] [facility] [address] [place] [address] Juanita Barragan [place] OCTOBER RECALL 09/02/[address] [facility] [address] [place] [address] Brenna Liriano MD Gastroesophageal reflux disease, unspecified whether esophagitis present 09/01/[address] [facility] [address] [place] [address] Brenna Liriano MD Asthma, unspecified asthma severity, unspecified whether complicated, unspecified whether persistent from Last 3 Months Immunizations Name Administration [...] Sign Reading Time Taken Comments Blood Pressure 140/90 11/17/2024 10:35 AM EDT Pulse 110 11/17/2024 10:35 AM EDT Temperature 36.7 ??C (98 ??F) 11/17/2024 10: 35 AM EDT Respiratory Rate 19 11/17/2024 10:3 5 AM EDT Oxygen Saturation 94% 11/17/2024 10: 35 AM EDT Inhaled Oxygen Concentration - - Weight 84.3 kg (185 lb 12.8 oz) 025 10:35 AM EDT Height 157.5 cm (5' 2 ) 11/17/2024 10:3 5 AM EDT Body Mass Index 33.98 11/17/2024 10:35 AM EDT Plan of Treatment Upcoming Encounters Date Type Department Care Team (Late st Contact Info) Description 12/11/2024 10:00 AM EDT Medication Management [facility] [address] [place] [phone] 02/17/2025 2:00 PM EDT Clinical Support [facility] [address] [place] [phone] 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, GUILLE Health Maintenance Due Date Last Done Comments CT Colonography 1965 FIT DNA/Cologuard 1965 FIT 1965 FOBT [...] 2024 , 06/21/2022, 07/11/2021, Additional history exists SDOH Screening 09/28/2024 09/28/2023 Diabetes: Hemoglobin A1C 01/12/2025 024, 10/09/2023, 12/12/2022 Mammogram 05/01/2025 05/01/2024, 09/0 12/2022, 04/14/2022, Additional history exists Tobacco Screening 07/15/2025 07/15/2024 Lipid Panel 11/04/2025 11/04/2024, 08/08/2023 Colonoscopy 04/02/2029 04/02/2024 Colorectal Cancer Screening 04/02/2029 DTaP/Tdap/Td Vaccines (3 - Td or Tdap) [...] SLIDE REVIEW Routine 11/28/2024 7:53 PM EDT LIPASE Routine 11/28/2024 7:53 PM EDT MAGNESIUM Routine 11/28/2024 7:53 PM EDT BASIC METABOLIC PANEL Routine 11/28/2024 7:53 PM EDT HEPATIC FUNCTION PANEL Routine 7:53 PM EDT CBC WITH AUTO DIFFERENTIAL Routine 11/28/2024 7:53 PM EDT POCT HEMOGLOBIN Routine 11/17/2024 10:55 AM EDT Malaise and fatigue Iron deficiency anemia due to chronic blood loss POCT COVID-19 AG DENNIS ID NOW Routine 11/17/2024 10:55 AM EDT Malaise and fatigue POCT INFLUENZA A (ID NOW RAPID MOLECULAR) Routine 11/17/2024 10:55 AM EDT Malaise and fatigue POCT INFLUENZA B (ID NOW RAPID MOLECULAR) Routine 11/17/2024 10:55 AM EDT Malaise and fatigue VITAMIN B12 Routine 11/04/2024 8:58 AM EDT LIPID PANEL, STANDARD Routine 11/04/2024 8:58 AM EDT COMPREHENSIVE METABOLIC PANEL Routine 11/04/2024 8:58 AM EDT Chronic respiratory failure with hypoxia (CMS/HCC) POCT BANG-14 URINE DRUG SCREEN Routine 10/09/2024 10:43 AM EST Chronic bilateral low back pain without sciatica METHADONE SCREEN, URINE Routine 10/09/2024 10:00 AM EST Type 2 diabetes mellitus with hyperglycemia, without long-term current use of insulin ([facility]) POCT GLYCATED HEMOGLOBIN, TOTAL Routine 07/15/2024 1:36 PM EST Type 2 diabetes mellitus with hyperglycemia, without long-term current use of insulin ([facility]) BI MAMMOGRAM SCREENING TOMOSYNTHESIS BILATERAL Routine 05/01/2024 3:00 PM EDT HM COLONOSCOPY Routine 04/02/2024 9:55 AM EDT ZZZ HISTORICAL HPV MRNA E6/E7 Routine 03/21/2017 12:00 AM EDT from Last 3 Months or Most Recently Relevant to Health Maintenance Results * Slide Review (11/28/2024 7:53 PM EDT) Slide Review VERIFIED [facility] 11/28/2024 7:53 PM EDT 11/28/2024 7:56 PM EDT us Generic External Data Provider LAB BLOOD ORDERAB LES Final Result [facility] [address] [place] [address] [phone] * (ABNORMAL) CBC auto differential (11/28/2024 7:53 PM EDT) White Blood Count 12.2(H) 4.8 - 10.8 X10*3/uL [facility] Red Blood Count 4.21 4.20 - 5.50 X10*6/uL [facility] Hemoglobin 9.5(L) 12.0 - 16.0 g/dl [facility] Hematocrit 31.5(L) 37.0 - 47.0 % [facility] Mean Corpuscular Volume 74.8(L) 80.0 - 98.0 fL [facility] Mean Corpuscular Hemoglobin 22.6(L) 27.0 - 33.0 pg [facility] Mean Corpuscular HGB Conc 30.2(L) 31.0 - 35.0 g/dl [facility] Red Cell Distribution Width 25.9(H) 11.0 - 16.0 % [facility] Platelet Count 374 160 - 400 X10*3/uL [facility] Neutrophils Percent Auto 62.1 45 - 73 % [facility] Imm Gran Pct Auto 0.4 0.0 - 0.4 % [facility] Lymphocytes Percent Auto 28.5 20 - 40 % [facility] Monocytes Percent Auto 8.3 2 - 11 % [facility] Eosinophils Percent Auto 0.5 0 - 4 % [facility] Basophils Percent Auto 0.2 0 - 2 % [facility] NRBC Pct Auto 0.0 0.0 - 0.2 /100WBC [facility] Neutrophils Absolute Auto 7.6 2.0 - 8.3 x10*3/uL [facility] Imm Gran Abs Auto 0.05(H) 0.00 - 0.03 X10*3/uL [facility] Lymphocytes Absolute Auto 3.5 1.2 - 4.9 X10*3/uL [facility] Monocytes Absolute Auto 1.0 0.1 - 1.2 X10*3/uL [facility] Eosinophils Absolute Auto 0.1 0.0 - 0.4 X10*3/uL [facility] Basophils Absolute Auto 0.0 0.0 - 0.2 X10*3/uL [facility] NRBC Abs Auto 0.000 0.0 - 0.012 X10*3/uL [facility] 11/28/2024 7:53 PM EDT 11/28/2024 7:56 PM EDT us Generic External Data Provider LAB BLOOD ORDERAB LES Edited Result - Final [facility] [address] [place] [phone] * Magnesium (11/28/2024 7:53 PM EDT) Magnesium 1.8 1.6 - 2.6 mg/dL [facility] 11/28/2024 7:53 PM EDT 11/28/2024 7:56 PM EDT us Generic External Data Provider LAB BLOOD ORDERAB LES Final Result [facility] [address] [place] [phone] * Lipase (11/28/2024 7:53 PM EDT) Pathologist [facility] Lipase 12 8 - 78 U/L [facility] 11/28/2024 7:53 PM EDT 11/28/2024 7:56 PM EDT us Generic External Data Provider LAB BLOOD ORDERAB LES Final Result [facility] [address] [place] [phone] * Hepatic Function Panel (11/28/2024 7:53 PM EDT) Bilirubin, Total 0.3 0.0 - 1.0 mg/dL [facility] Bilirubin, Direct 0.1 0.0 - 0.5 mg/dL [facility] Aspartate Amino Transferase 22 5 - 31 U/L [facility] Alanine Aminotransferase 19 0 - 31 U/L [facility] Total Protein 7.1 6.5 - 8.0 g/dL [facility] Albumin Level 4.0 3.5 - 5.0 g/dL [facility] Alkaline Phosphatase 91 39 - 117 U/L [facility] 11/28/2024 7:53 PM EDT 11/28/2024 7:56 PM EDT us Generic External Data Provider LAB BLOOD ORDERAB LES Final Result Performing Organization Address City/[facility]/ZIP Co de Phone Number [facility] [address] [place] [phone] * (ABNORMAL) Basic Metabolic Panel (11/28/2024 7:53 PM EDT) Sodium 137 135 - 145 mmol/L [facility] Potassium 4.3 3.3 - 5.1 mmol/L [facility] Chloride 102 96 - 108 mmol/L [facility] Carbon Dioxide 24 22 - 29 mmol/L [facility] Anion Gap 15 12 - 20 [facility] Urea Nitrogen (BUN) 19(H) 9 - 16 mg/dL [facility] Creatinine, Serum 0.69 0.5 - 1.4 mg/dL [facility] Creatinine Clr Calc Pharmacy 87.7 [facility] Comment:Provided height and weight: 157.48 cm,83.1 kg.eGFR (calculated from the MDRD study equation) and eCrCl(calculated from the Cockcroft-Gault equation) are based ondifferent parameters and may not yield comparable results.If eCrCl result is absurd, please check patient'sheight/weight. Estimated Glomerular Filt Rate >60 [facility] Comment:Chronic Kidney Disea se: Estimated GFR < 60 mL/min/[id number] Kidney Disease: Estimated GFR < 15 mL/min/1.73m2 Glucose 115 60 - 115 mg/dL [facility] Calcium 9.0 8.4 - 10.2 mg/dL [facility] 11/28/2024 7:53 PM EDT 11/28/2024 7:56 PM EDT us Generic External Data Provider LAB BLOOD ORDERAB LES Final Result Performing Organization Address City/[facility]/ZIP Co de Phone Number [facility] [address] [place] [phone] * Influenza B (ID NOW Rapid Molecular) (11/17/2024 10:55 AM EDT) Pathologist [facility] Influenza B Negative Negative, Indeterminate [facility] Swab 11/17/2024 10:5 5 AM EDT us Donny Gallegos MD POINT OF CARE TEST ENTER/EDIT OR DERABLES Final Result Performing Organization Address [facility]/ZIP Co de Phone Number [facility] [address] [place] [phone] * Influenza A (ID NOW Rapid Molecular) (11/17/2024 10:55 AM EDT) Pathologist [facility] Influenza A Negative Negative, Indeterminate [facility] Swab 11/17/2024 10:5 5 AM EDT us Donny Gallegos MD POINT OF CARE TEST ENTER/EDIT OR DERABLES Final Result Performing Organization Address [facility] Co de Phone Number [facility] [address] [place] [phone] * POCT COVID-19 Ag Dennis ID NOW (11/17/2024 10:55 AM EDT) [facility] Coronavirus Antigen PCR Negative Negative, Indeterminate, None Detected, Invalid, Specimen unsatisfactory for evaluation, Weakly Positive Swab 11/17/2024 10:5 5 AM EDT us Donny Gallegos MD POINT OF CARE TEST ENTER/EDIT OR DERABLES Final Result * (ABNORMAL) POCT hemoglobin docked device (11/17/2024 10:55 AM EDT) Pathologist [facility] Hemoglobin 9.4(A) 12.0 - 15.0 Blood 11/17/2024 10:5 5 AM EDT us Donny Gallegos MD POINT OF CARE TEST ENTER/EDIT OR DERABLES Final Result * Vitamin B12 (11/04/2024 8:58 AM EDT) Vitamin B12 367 200 - 900 pg/mL [facility] Comment:NORMAL 200-900 PG/M L INDETERMINATE 160-199 PG/ML DEFICIENT < 160 PG/ML 11/04/2024 8:58 AM EDT 11/04/2024 9:06 AM EDT us Brenna Brower MD LAB BLOOD ORDERABLES Final Result Performing Organization Address City/[facility] Co de Phone Number [facility] [address] [place] [phone] * Lipid Panel, Standard (11/04/2024 8:58 AM EDT) Triglycerides 57 <150 mg/dL [facility] Comment:Desirable Triglyceri de: less than 150 mg/dLBorderline High Triglyceride 150-199 mg/dLHigh Triglyceride: 200-499 mg/dLVery High Triglyceride: greater than or equal to 5OO mg/dL Cholesterol 115 <200 mg/dL [facility] Comment:Desirable Cholestero l: less than 200 mg/dLBorderline High Cholesterol: 200-239 mg/dLHigh Cholesterol: greater than 239 mg/dL LDL Cholesterol Calculated 63 <100 mg/dL [facility] Comment:Desirable LDL: less than 100 mg/dLNear Optimal/Above Optimal LDL: 110- 129 mg/dLBorderline High LDL: 130-159 mg/dLHigh LDL: 160-189 mg/dLVery High LDL: greater than or equal to 190 mg/dL HDL Cholesterol 41 >40 mg/dL [facility] Comment:Desirable HDL: great er than 40 mg/dL Note: This HDL assay may give artificially low results in patients with liver disease. 11/04/2024 8:58 AM EDT 11/04/2024 9:06 AM EDT us Brenna Brower MD LAB BLOOD ORDERABLES Final Result Performing Organization Address City/[facility]/ZIP Co de Phone Number [facility] [address] [place] [phone] * Comprehensive Metabolic Panel (11/04/2024 8:58 AM EDT) Pathologist [facility] Sodium 143 135 - 145 mmol/L [facility] Potassium 3.9 3.3 - 5.1 mmol/L [facility] Chloride 107 96 - 108 mmol/L [facility] Carbon Dioxide 28 22 - 29 mmol/L [facility] Anion Gap 12 12 - 20 [facility] Urea Nitrogen (BUN) 12 9 - 16 mg/dL [facility] Creatinine, Serum 0.52 0.5 - 1.4 mg/dL [facility] Estimated Glomerular Filt Rate >60 [facility] Comment:Chronic Kidney Disea se: Estimated GFR < 60 mL/min/[id number] Kidney Disease: Estimated GFR < 15 mL/min/1.73m2 Glucose 110 60 - 115 mg/dL [facility] Calcium 8.6 8.4 - 10.2 mg/dL [facility] Bilirubin, Total 0.3 0.0 - 1.0 mg/dL [facility] Aspartate Amino Transferase 16 5 - 31 U/L [facility] Alanine Aminotransferase 9 0 - 31 U/L [facility] Total Protein 6.8 6.5 - 8.0 g/dL [facility] Albumin Level 3.7 3.5 - 5.0 g/dL [facility] Alkaline Phosphatase 81 39 - 117 U/L [facility] Blood Venous blood specimen / Unknown 11/04/2024 8:58 AM EDT 11/04/2024 9:06 AM EDT us Brenna Brower MD LAB BLOOD ORDERABLES Final Result [facility] [address] [place] [phone] * (ABNORMAL) POCT BANG-14 Urine Drug Screen (10/09/2024 10:43 AM EST) Methadone Screen, Urine Positive Urine Urine specimen obtained by clean catch procedure / Unknown 10/09/2024 10:43 AM EST Narrative 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 RN - 10/09/2024 10:43 AM EST UTOX cup Lot#[id number] Exp. 04/08/26 Internal Pass Control Brenna Brower MD POINT OF CARE TEST EN TER/EDIT ORDERABLES Final Result * Drug Monitoring, Methadone Metabolite, Screen, Urine (10/09/2024 10:00 AM EST) Methadone Screen, Urine Not Detected Not Detect ng/mL [facility] Comment:Methadone cut-off is 300 ng/mL.Positive results are unconfirmed and should not be used fornon-medical purposes. 10/09/2024 10:0 0 AM EST 10/09/2024 6:14 PM EST Brenna Brower MD LAB URINE ORDERABLES Final Result [facility] [address] [place] [address] [phone] * (ABNORMAL) POCT HGB A1C (07/15/2024 1:36 PM EST) Hemoglobin A1C 6.0 4.0 - 6.0 % QC Media Lot # [id number] Lot# Expiration Date [id number] Blood 07/15/2024 1:36 PM EST Brenna Brower MD POINT OF CARE TEST EN TER/EDIT ORDERABLES Final Result * BI Mammogram Screening Tomosynthesis Bilateral (05/01/2024 3:00 PM EDT) Anatomical Region Laterality Modality Breast Bilateral Mammography 05/01/2024 3:00 PM EDT Narrative 05/15/2024 8:10 PM EDT ? [facility] ? [address] ?[place] [address] ? Mammography Report ? Signed ? Patient: Tang Tayla,Karina ?MR# ?? : [id number] ? : 1965 ?Acct:[id number] ? Age/Sex: 58 / F ?ADM Date: 05/01/24 ? Loc: HO.MAMMO ? Attending Dr: Brenna Brower MD ? Ordering Physician: Brenna Liriano MD ?Results: ?? 2Benign Findings ? Date of Service: 05/01/24 ?Follow Up: 1 Year From Orig ?? inal Mammogram ? Procedure(s): MM tomosynthesis screening BI ?? Accession Number(s): [id number] ? cc: Brenna Liriano MD ? EXAMINATION: [...] DD/ 1500 ? TD/TT: 05/01/24 1521 ? [facility]: ? Procedure Note Donkatherine, Image - 05/15/2024 [facility] [address] [place] [address] [place] [address] Mammography Report Signed Patient: Brenna Hope DMR# : [id number] : 1965Acct:[id number] Age/Sex: 58 / FADM Date: 05/01/24 Loc: HO.MAMMO Attending Dr: Brenna Brower MD Ordering Physician: Brenna Liriano MDResults: 2Benign Findings Date of Service: 05/01/24Follow Up: 1 Year From Orig inal Mammogram Procedure(s): MM tomosynthesis screening BI Accession Number(s): [id number] cc: Brenna Liriano MD EXAMINATION: MM SCREENING [...] Siomara Myrick DO 05/15/2024 08:07 PM EDT RP Dictated By: Siomara Myrick DO Signed By: <Electronically signed by Siomara Myrick DO in OV> 05/15/242006 DD/ 99 TD/TT: 05/01/24 1521 [facility] [employer]: Brenna Brower MD IMG BI PROCEDURES Joe abdullahi Result - Final * Hm Colonoscopy (04/02/2024 9:55 AM EDT) Colonoscopy Normal Normal Narrative Jacqueline Valiente - 04/02/2024 9:55 AM EDT Repeat Colonoscopy in 5 years or earlier if clinically indicated see the external hospital admission note on 04/02/2024 Historical Provider [facility] MAINTENANCE Edited Result - Final * HPV mRNA E6/E7 (03/21/2017 12:00 AM EDT) HPV mRNA E6/E7 Not Detected NOT DETECTED [facility] Comment: This test was performed using the APTIMA(R) HPV Assay ([employer] This assay detects E6/E7 viral messenger RNA (mRNA) from 14 high-risk HPV types (16,18,31,33,35,39,45,51, 52,56,58,59,66,68). For additional information please refer to: http://education.Wabeebwa/faq/KBB202u0 (This link is being provided for informational/ educational purposes only.) Test Performed by [facility], [facility], [address] [place] [address] Eliseo Sierra M.D., Ph.D., Director of Laboratories , [facility] [id number] Please note: ??Effective 05/01/2016, HPV testing will be performed using [employer]'s APTIMA test which targets mRNA. Detecting mRNA instead of DNA, as in older methods, offers significant improvements in specificity. 03/21/2017 us Indira Estrada CNM HISTORICAL/NON ORDERABLE LABS Final Result [facility] [address] from Last 3 Months or Most Recently Relevant to Health Maintenance Insurance [address] [place] [address] C3 Care Teams Property Assistant Relationship Specialty Start Date End Date Brenna Liriano MD [address] [place] [address] PCP - General Family Medicine 07/01/19 [facility] 06/26/24
[2024-11-28 20:41] LABS: Influenza A PCR NEGATIVE (Negative); Influenza B PCR NEGATIVE (Negative); Resp Syncy Virus RNA Qual PCR NEGATIVE (Negative); SARS COV2 PCR INHOUSE NEGATIVE (Negative)
[2024-11-28 20:45] LABS: Bacteria Urine None Seen (None Seen); RBC Urine 0-2 /HPF (0-2); WBC Urine 0-5 /HPF (0-5)
[2024-11-28] MEDS: Mineral OiL enema 133 ML ENEMA PR (22:42)
[2024-11-28] MEDS: Lactulose 20 GM/30 ML SOLUTION 40 GM PO (22:42)
--- NOTE | 2024-11-28 23:21 | MHC.EDTECH ---
assumed care of pt @2812
[2024-11-28 23:36] VITALS: BP 115/68; PULSE 105; RESP 18; TEMP 36.5; O2SAT 95
[2024-11-29] MEDS: Sodium Phosphate,Mono-Dibasic 133 ML ENEMA PR (00:07)
[2024-11-29 00:43] VITALS: BP 115/68; PULSE 105; RESP 18; TEMP 36.5; O2SAT 95
== END 2024-11-29 00:44 | disposition home or self-care (01) ==
PROVIDERS: Nurse Practitioner Family; Emergency Provider Internal Medicine; PCP Internal Medicine
DX: K59.00 Constipation, unspecified (principal); R07.81 Pleurodynia; M25.511 Pain in right shoulder; Z79.899 Other long term (current) drug therapy; Z03.818 Encounter for observation for suspected exposure to other biological agents ruled out
CPT/HCPCS: 0241U; 74018; 80048; 80076; 81001; 83690; 83735; 85025; 99283; 99284

== ENCOUNTER → 2024-11-28 19:47 | Outpatient (BNV) | payer MEDICAID, SELFPAY | PROVIDERS: PCP Internal Medicine; Visit Provider Radiology Diagnostic Radiology | DX: K56.41 Fecal impaction (principal) | CPT/HCPCS: 74018 ==

== ENCOUNTER 2024-12-02 15:33 | Outpatient (REF) | payer MEDICAID, SELFPAY ==
[2024-12-02 16:03] LABS: Basophils Percent Auto 0.3 % (0-2); Eosinophils Absolute Auto 0.1 X10*3/uL (0.0-0.4); Hematocrit 31.7 % (37.0-47.0); Hemoglobin 9.5 g/dl (12.0-16.0); Imm Gran Abs Auto 0.04 X10*3/uL (0.00-0.03); Imm Gran Pct Auto 0.5 % (0.0-0.4); Lymphocytes Absolute Auto 3.3 X10*3/uL (1.2-4.9); Lymphocytes Percent Auto 37.2 % (20-40); MANUAL DIFF FLAG SCAN; Mean Corpuscular Hemoglobin 22.8 pg (27.0-33.0); Monocytes Absolute Auto 0.8 X10*3/uL (0.1-1.2); Monocytes Percent Auto 9.2 % (2-11); Neutrophils Absolute Auto 4.5 x10*3/uL (2.0-8.3); Neutrophils Percent Auto 51.8 % (45-73); Platelet Count 310 X10*3/uL (160-400); Red Blood Count 4.17 X10*6/uL (4.20-5.50); Red Cell Distribution Width 26.5 % (11.0-16.0); SCAN SMEAR FLAG 1; White Blood Count 8.8 X10*3/uL (4.8-10.8)
[2024-12-02 16:04] LABS: PLT ABN DIST 1
[2024-12-02 17:32] LABS: SLIDE REVIEW VERIFIED
--- OUTSIDE RECORDS SUMMARY | 2024-12-02 18:40 | XMS_ITS | Encounter Summary ---
Author Organization [employer] Address [address] [facility] 7t [place] [address] Care Team Providers Care Loft Patternmaker Name Role Phone Brenna Liriano MD Primary Care Provide r Reason for Visit * Reason Comments Med Refill Encounter Details Date Type Department Care Team ([facility] st Contact Info) Description 03/11/2024 Refill [facility] [address] [place], [place] [phone] Brenna Liriano MD 230 [place], [place] [phone] Asthma, unspecified asthma severity, unspecified whether complicated, [...] Description 12/11/2024 10:00 AM EDT Medication Management [address] [address] 02/17/2025 2:00 PM EDT Clinical Support [address] [address] 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 RN documented as of this encounter Visit Diagnoses Diagnosis Asthma, unspecified asthma severity, unspecified whether complicated, unspecified whether persistent documented in this encounter Care Teams Loft Patternmaker Relationship Specialty Start Date End Date Brenna Liriano MD [address] [place] [address] PCP - General Family Medicine 07/01/19 [facility] 06/26/24 documented as of this encounter
--- OUTSIDE RECORDS SUMMARY | 2024-12-02 18:40 | XMS_ITS | Encounter Summary ---
Author Organization [employer] Address [address] [facility] 7t [place] [address] Care Team Providers Care County Agent Name Role Phone Brnena Liriano MD Primary Care Provide r Reason for Visit * Reason Comments Care Coordination C3 MARIELENA kelley outreach and enrollment-agrees to participate Encounter Details Date Type Department Care Team (Latest Contact Info) Description 12/01/2024 Patient Outreach [facility] 230 [place] [address] Brenna Liriano MD 230 [place] [address] Care Coordination (C3 MARIELENA Baker outreach and enrollment-agrees to participate) Social History Tobacco Use Types Packs/Day Years [...] as of this encounter Progress Notes * Zenobia Baker - 12/01/2024 1:57 PM EDT CHW Zenobia Baker, placed outbound call to patient introducing herself from [facility] CM Department, in regards to offering services. Patient's name and was confirmed. Patient agrees toparticipate in program. Appt. for initial assessment scheduled for 12/25/24 @ 1:00PM. CHW reinforced direct contact information or CM for any additional questions or concerns and extended clinic hours on Mondays and Wednesdays, and Walk-In Urgent Care Located in [facility]. Patient provided with after-hours line for [facility], , which offer night time triage service and option to transfer to rectification printer provider if needed. Patient verbalizes understanding, and able to repeat back to copywriter. documented in this encounter Plan of Treatment Upcoming Encounters Date Type Department Care Team (Late st Contact Info) Description 12/11/2024 10:00 AM EDT Medication Management [facility] MED[facility]INE [address] [place] [address] 02/17/2025 2:00 PM EDT Clinical Support [facility] [address] [place] [phone] 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 RN documented as of this encounter Visit Diagnoses Not on filedocumented in this encounter Care Teams County Agent Relationship Specialty Start Date End Date Brenna Liriano MD 230 [place] [address] PCP - General Family Medicine 07/01/19 [facility] 06/26/24 documented as of this encounter
--- OUTSIDE RECORDS SUMMARY | 2024-12-02 18:40 | XMS_ITS | Encounter Summary ---
Author Organization [facility] Address [address] [place] [address] 7t [place] [address] Care Team Providers Care Automatic Profile Shaper Operator Name Role Phone Brenna Liriano MD Primary Care Provide r Reason for Visit * Reason Comments Med Refill Encounter Details Date Type Department Care Team (Late Contact Info) Description 10/23/2022 Refill [facility] [address] [place] [address] [phone] Hina Mccormack MD [address] [place] [address] [phone] Other chronic pain Social History Tobacco Use [...] Description 12/11/2024 10:00 AM EDT Medication Management [facility] [address] [place] [address] [phone] 02/17/2025 2:00 PM EDT Clinical Support [address] [phone] 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 RN documented as of this encounter Visit Diagnoses Diagnosis Other chronic pain documented in this encounter Care Teams Automatic Profile Shaper Operator Relationship Specialty Start Date End Date Brenna Liriano MD [address] [place] [address] [place] [address] PCP - General Family Medicine 07/01/19 [facility] 06/26/24 documented as of this encounter
--- OUTSIDE RECORDS SUMMARY | 2024-12-02 18:40 | XMS_ITS | Encounter Summary ---
Author Organization [employer] Address [address] [facility] 7t [place] [address] Care Team Providers Care Insurance Claims Specialist Name Role Phone Brenna Liriano MD Primary Care Provide r Encounter Details Date Type Department Care Team (Late st Contact Info) Description 11/18/[address] [facility] [address] [place], [place] [phone] Provider, MD Ameya Social History Tobacco Use [...] Description 12/11/2024 10:00 AM EDT Medication Management [address] [address] 02/17/2025 2:00 PM EDT Clinical Support [address] [address] 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 RN documented as of this [...] admission note on 04/02/2024 us Historical Provider [facility] Edited Result - Final documented in this encounter Visit Diagnoses Not on filedocumented in this encounter Care Teams Insurance Claims Specialist Relationship Specialty Start Date End Date Brenna Liriano MD [address] [place] [address] PCP - General Family Medicine [facility]01[facility] documented as of this encounter
--- OUTSIDE RECORDS SUMMARY | 2024-12-02 18:40 | XMS_ITS | Encounter Summary ---
Author Organization [employer] Address 75 [facility] 7t [place] [address] Care Team Providers Care Lumber Material Handler Name Role Phone Brenna Liriano MD Primary Care Provide r Encounter Details Date Type Department Care Team (Late st Contact Info) Description 12/01/2024 Patient Outreach [facility] 230 [place], [place] [phone] Brenna Liriano MD 230 [place], [place] [phone] Social History Tobacco Use Types Packs/Day Years [...] Description 12/11/2024 10:00 AM EDT Medication Management [address] [address] 02/17/2025 2:00 PM EDT Clinical Support [address] [address] 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, GUILLE documented as of this encounter Visit Diagnoses Not on filedocumented in this encounter Care Teams Lumber Material Handler Relationship Specialty Start Date End Date Brenna Liriano MD [address] [place] [address] PCP - General Family Medicine 07/01/19 [facility] 06/26/24 documented as of this encounter
--- OUTSIDE RECORDS SUMMARY | 2024-12-02 18:40 | XMS_ITS | Encounter Summary ---
Author Organization [employer] [facility] Address [address] [place] [address] 7t [place] [address] Care Team Providers Care Telephone Switchboard Operator Name Role Phone Brenna Liriano MD Primary Care Provide r Encounter Details Date Type Department Care Team (Late st Contact Info) Description 12/02/2024 Orders Only GENERIC EXTERNAL DATA DEPARTMENT Provider, [...] 10:00 AM EDT Medication Management [facility] [address] [place] [address] 02/17/2025 2:00 PM EDT Clinical Support [facility] [address] [place] [address] 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 RN documented as of this encounter Procedures Procedure Name Priority Date/Time Associated Diagnosis Comments SLIDE REVIEW Routine 12/02/2024 3:43 PM EDT CBC WITH AUTO DIFFERENTIAL Routine 12/02/2024 3:43 PM EDT documented in this encounter Results * Slide Review (12/02/2024 3:43 PM EDT) Slide Review VERIFIED [facility] 12/02/2024 3:43 PM EDT 12/02/2024 3:44 PM EDT us Generic External Data Provider LAB BLOOD ORDERAB LES Final Result [facility] [address] [place] [address] [phone] * (ABNORMAL) CBC auto differential (12/02/2024 3:43 PM EDT) White Blood Count 8.8 4.8 - 10.8 X10*3/uL [facility] Red Blood Count 4.17(L) 4.20 - 5.50 X10*6/uL [facility] Hemoglobin 9.5(L) 12.0 - 16.0 g/dl [facility] Hematocrit 31.7(L) 37.0 - 47.0 % [facility] Mean Corpuscular Volume 76.0(L) 80.0 - 98.0 fL [facility] Mean Corpuscular Hemoglobin 22.8(L) 27.0 - 33.0 pg [facility] Mean Corpuscular HGB Conc 30.0(L) 31.0 - 35.0 g/dl [facility] Red Cell Distribution Width 26.5(H) 11.0 - 16.0 % [facility] Platelet Count 310 160 - 400 X10*3/uL [facility] Neutrophils Percent Auto 51.8 45 - 73 % [facility] Imm Gran Pct Auto 0.5(H) 0.0 - 0.4 % [facility] Lymphocytes Percent Auto 37.2 20 - 40 % [facility] Monocytes Percent Auto 9.2 2 - 11 % [facility] Eosinophils Percent Auto 1.0 0 - 4 % [facility] Basophils Percent Auto 0.3 0 - 2 % [facility] NRBC Pct Auto 0.0 0.0 - 0.2 /100WBC [facility] Neutrophils Absolute Auto 4.5 2.0 - 8.3 x10*3/uL [facility] Imm Gran Abs Auto 0.04(H) 0.00 - 0.03 X10*3/uL [facility] Lymphocytes Absolute Auto 3.3 1.2 - 4.9 X10*3/uL [facility] Monocytes Absolute Auto 0.8 0.1 - 1.2 X10*3/uL [facility] Eosinophils Absolute Auto 0.1 0.0 - 0.4 X10*3/uL [facility] Basophils Absolute Auto 0.0 0.0 - 0.2 X10*3/uL [facility] NRBC Abs Auto 0.000 0.0 - 0.012 X10*3/uL [facility] 12/02/2024 3:43 PM EDT 12/02/2024 3:44 PM EDT us Generic External Data Provider LAB BLOOD ORDERAB LES Edited Result - Final [facility] [address] [place] [address] [phone] documented in this encounter Visit Diagnoses Not on filedocumented in this encounter Care Teams Telephone Switchboard Operator Relationship Specialty Start Date End Date Brenna Liriano MD [address] [place] [phone] PCP - General Family Medicine 07/01/19 [facility] 06/26/24 documented as of this encounter
--- OUTSIDE RECORDS SUMMARY | 2024-12-02 18:40 | XMS_ITS ---
Author Organization [employer] Address [address] [place] [address] 7t [place] [address] Care Team Providers Care Gold Burnisher Name Role Phone Brenna Liriano MD Primary Care Provide r CM Complex Status:Outreach In Progress (Enrolling) Start date:12/01/2024 Overview [facility] ED 11/28/24 Case Team Name Relationship Phone Musa Saldivar RN Registered Nurse(Responsible St aff) Continued Care and Services Coordination
--- OUTSIDE RECORDS SUMMARY | 2024-12-02 18:40 | XMS_ITS | Encounter Summary ---
Author Organization [employer] Address [address] [facility] 7t [place] [address] Care Team Providers Care Senior Air Director Name Role Phone Brenna Liriano MD Primary Care Provide r Reason for Visit * Reason Comments Care Coordination C3CM- chart review Encounter Details Date Type Department Care Team (Latest Contact Info) Description 12/01/2024 Patient Outreach [facility] [address] [place] [address] Brenna Liriano MD 230 [place], [place] [phone] Care Coordination (C3CM- chart review) Social History Tobacco Use Types Packs/Day Years [...] as of this encounter Progress Notes * Musa Saldivar RN - 12/01/2024 9:17 AM EDT BLADE Saldivar RN, performed chart review, in anticipation of initial assessment with patient, aspatient has stratified for C3 Adult Complex Care through the ADT feed. 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 Specialists include [facility], [facility], podiatry, [facility], [facility] cardiovascular. ED visits within the last 12 months include [facility] 11/28/24, [facility] 06/19/24-06/24/24, [facility] 03/31/24-04/03/24 . Last appointment in PCP office on 11/17/24. No future appointment scheduled with PCP at this time, is on recall for 07/15/25. documented in this encounter Plan of Treatment Upcoming Encounters Date Type Department Care Team (Late st Contact Info) Description 12/11/2024 10:00 AM EDT Medication Management [facility] [address] [place] [address] 02/17/2025 2:00 PM EDT Clinical Support [address] [address] 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, RN documented as of this encounter Visit Diagnoses Not on filedocumented in this encounter Care Teams Senior Air Director Relationship Specialty Start Date End Date Brenna Liriano MD [address] [place] [phone] PCP - General Family Medicine 07/01/19 [facility] 06/26/24 documented as of this encounter
--- OUTSIDE RECORDS SUMMARY | 2024-12-02 18:40 | XMS_ITS ---
Author Organization [employer] Address [address] [place] [address] 7 [place] [address] Care Team Providers Care Support Director Name Role Phone Brenna Liriano MD Primary Care Provide r CHW Complex Status:Outreach In Progress (Enrolling) Start date:12/01/2024 Enrollment reason:ADT Feed Overview ADT- [facility] ED 11/28/24 Case Team Name Relationship Phone Zenobia Baker (Responsible Staff) Continued Care and Services Coordination
--- OUTSIDE RECORDS SUMMARY | 2024-12-02 18:40 | XMS_ITS | Encounter Summary ---
Author Organization [employer] Address [address] [facility] 7t [place] [address] Care Team Providers Care Software Client Architect Name Role Phone Brenna Liriano MD Primary Care Provide r Reason for Visit * Reason Comments Med Refill Encounter Details Date Type Department Care Team ([facility] st Contact Info) Description 09/14/2023 Refill [facility] 230 [place], [place] [phone] Brenna Liriano MD 230 [place], [place] [phone] Constipation, unspecified constipation type Social History Tobacco [...] 12/11/2024 10:00 AM EDT Medication Management [address] [address] 02/17/2025 2:00 PM EDT Clinical Support [address] [address] 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 RN documented as of this encounter Visit Diagnoses Diagnosis Constipation, unspecified constipation type documented in this encounter Care Teams Software Client Architect Relationship Specialty Start Date End Date Brenna Liriano MD [address] [place] [address] PCP - General Family Medicine 07/01/19 [facility] 06/26/24 documented as of this encounter
--- OUTSIDE RECORDS SUMMARY | 2024-12-02 18:40 | XMS_ITS | Encounter Summary ---
Author Organization [employer] Address [address] [facility] 7t [place] [address] Care Team Providers Care Materials Planner/Production Planner Name Role Phone Brenna Liriano MD Primary Care Provide r Reason for Visit * Reason Onset Date Comments Appointment Request 10/31/2023 Encounter Details Date Type Department Care Team ([facility] st Contact Info) Description 10/31/2023 Telephone [facility]INE 230 [place], [place] [phone] Brenna Liriano MD 230 [place], [place] [phone] Appointment Request Social History Tobacco Use Types [...] PM EDT Tc from Veronica the patients gas pit worker calling to cancel the PAP appt on 11/06 and would like to reschedule documented in this encounter Plan of Treatment Upcoming Encounters Date Type Department Care Team (Late st Contact Info) Description 12/11/2024 10:00 AM EDT Medication Management [address] [address] 02/17/2025 2:00 PM EDT Clinical Support [address] [address] 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, GUILLE documented as of this encounter Visit Diagnoses Not on filedocumented in this encounter Care Teams Materials Planner/Production Planner Relationship Specialty Start Date End Date Brenna Liriano MD [address] [place] [address] PCP - General Family Medicine 07/01/19 [facility] 06/26/24 documented as of this encounter
--- OUTSIDE RECORDS SUMMARY | 2024-12-02 18:40 | XMS_ITS | Clinical Summary ---
Author Organization [facility] Address [address] [place] [address] Phone Care Team Providers Care Registered Private Duty Nurse Name Role Phone Brenna Liriano MD Primary [...] 02/03/2019 COPD (chronic obstructive pu lmonary disease) ([facility] V24, [facility] V28) 02/03/2019 Depression with anxiety 02/03/2019 Overview (07/02/2024): Admission to [facility] 10/24/2018 for crisis and depression. HTN (hypertension) 02/03/2019 Microalbuminuria 02/03/2019 Obesity 02/03/2019 Onychomycosis 02/03/2019 Osteoarthritis 02/03/2019 Overview (07/02/2024): Knees, bilaterally. Schizoaffective disorder ([facility] V24, [facility] V 28) 02/03/2019 Type 2 diabetes mellitus wit h renal manifestations ([facility] V24, [facility] V28) 02/03/2019 Encounters Date Type Department Care Team Description 11/03/2024 2:30 PM EDT Office Visit Orthopedic Surgery - [address] [phone] Carmelo Craig, DPM Hallux rigidus of right foot (Primary Dx); Hallux rigidus of left foot; Dermatophytosis of nail; Metatarsalgia of both feet; Pain in toe of right foot; Pain in toe of left foot; Corns and callosities; Type II diabetes mellitus with peripheral circulatory disorder ([facility] V24, [facility] V28); Diabetic mononeuropathy simplex ([facility] V24, [facility] V28); Tinea pedis of both feet from Last 3 Months Medical History Medical History Date Comments Depression with anxiety 02/03/2019 DX:Depre ssion with anxiety; COMMENT: Admission to [facility] 10/24/2018 for crisis and depression. Asthma 02/03/2019 DX:Asthma Onychomycosis 02/03/2019 DX:Onychomycosis Osteoarthritis 02/03/2019 DX:Osteoarthriti s; COMMENT: knees, bilaterally. HTN (hypertension) 02/03/2019 DX:HTN (hyper tension) COPD (chronic obstructive pu lmonary disease) ([facility] V24, [facility] V28) 02/03/2019 DX:COPD (chronic o bstructive pulmonary disease) ([facility]) Schizoaffective disorder ([facility] V24, [facility] V28) 02/03/2019 DX:Schizoaffective disorder ([facility]) Microalbuminuria 02/03/2019 DX:Microalbumin uria Type 2 diabetes mellitus wit h renal manifestations ([facility] V24, [facility] V28) 02/03/2019 DX:Type 2 diabetes mellitus with renal manifestations ([facility]) Tobacco use 02/03/2019 DX:Tobacco use [...] PM EDT Office Visit Orthopedic Surgery - [address] [phone] Carmelo Craig DPM [address] [address] Health Maintenance Due Date Last Done Comments [...] topic Insurance MEDICAID - [place] Care Teams Registered Private Duty Nurse Relationship Specialty Start Date End Date Brenna Liriano MD [address] [place] [phone] PCP - General 08/30/23
--- OUTSIDE RECORDS SUMMARY | 2024-12-02 18:40 | XMS_ITS | Encounter Summary ---
Author Organization [employer] Address [address] [facility] [address] [place] [address] Care Team Providers Care Chip Tester Name Role Phone Brenna Liriano MD Primary Care Provide r Reason for Visit * Reason Comments Med Refill Encounter Details Date Type Department Care Team ([facility] st Contact Info) Description 07/24/2023 Refill [facility] [address] [place], [place] [phone] Brenna Liriano MD [address] [place] [address] Social History Tobacco Use Types Packs/Day Years [...] Description 12/11/2024 10:00 AM EDT Medication Management [address] [address] 02/17/2025 2:00 PM EDT Clinical Support [address] [address] Avelnia Sterling RN documented as of this encounter Visit Diagnoses Not on filedocumented in this encounter Care Teams Chip Tester Relationship Specialty Start Date End Date Brenna Liriano MD [address] [place] [phone] PCP - General Family Medicine 07/01/19 [facility] 06/26/24 documented as of this encounter
--- OUTSIDE RECORDS SUMMARY | 2024-12-02 18:40 | XMS_ITS | Clinical Summary ---
Author Organization [employer] Address [address] [place] [address] 7[address] [place] [address] Care Team Providers Care Geophysics Teacher Name Role Phone Brenna Liriano MD Primary [...] MOUTH IN THE MORNING 90 tablet 1 Active traMADol (Ultram) 50 MG tabletIndicatio ns:Chronic [...] TO 6 HOURS NEEDED 18 g 2 Active sucralfate (Carafate) 1 g tablet TAKE 1 TABLET BY MOUTH THREE TIMES DAILY IN THE MORNING, AT NOON, AND AT BEDTIME 90 tablet 025 Active polyethylene glycol, PEG, 3350 (Miralax) 17 g packet MIX 1 PACKET WITH 8 OUNCES OF WATER OR JUICE AND DRINK THREE TIMES DAILY EVERY DAY NEEDED 90 each 2 024 2024 Discontinued(R eorder (will not trigger notification to Pharmacy)) albuterol [...] hallucinations at this time. FU w/ [facility], see him to make an appointment Continue [...] Q 12hrs Patient will be contacted by [employer] nurse Tobacco dependence syndrome 06/04/2015 Microalbuminuria 06/23/2014 [...] emergency department for further evaluation, case presented [facility], patient will go by ambulance Acute upper respiratory infection 11/02/2022 02/16/2023 Mild intermittent asthma 04/02/2018 Obesity (BMI 30-39.9) 04/02/20182022 Schizoaffective disorder, bipolar type 03/13/2017 02/16/2023 Primary osteoarthritis of left knee 01/30/2017 02/16/2023 Encounters Date Type Department Care Team Description 12/02/2024 Orders Only GENERIC EXTERNAL DATA DEPARTMENT Provider, Generic External Data 12/01/2024 Patient Outreach [address] [address] Brenna Liriano MD Care Coordination ([address] [place] outreach and enrollment-agrees to participate) 12/01/2024 Patient Outreach [address] [phone] Brenna Liriano MD Care Coordination ([address] chart review) 12/01/2024 Patient Outreach [address] [address] Brenna Liriano MD Care Coordination ([facility]- chart review) 12/01/2024 Patient Outreach [address] [address] Brenna Liriano MD 11/28/2024 Orders Only GENERIC EXTERNAL DATA DEPARTMENT Provider, Generic External Data 11/24/[address] [address] Brenna Liriano MD 11/18/2024 Orders Only [facility] [address] [place] [address] ProviderAmeya MD 11/17/2024 11:20 AM EDT Office Visit [facility] [address] [place] [address] Donny Gallegos MD Acute bacterial sinusitis (Primary Dx); Malaise and fatigue; Sore throat; Subacute cough; Nonintractable headache, unspecified chronicity pattern, unspecified headache type; Iron deficiency anemia due to chronic blood loss; Asthma, unspecified asthma severity, unspecified whether complicated, unspecified whether persistent 11/11/2024 Refill [facility] [address] [place] [address] Brenna Liriano MD 11/10/2024 Telephone [facility] [address] [place] [phone] Brenna Liriano MD Nurse Triage 11/04/2024 Refill [facility] [address] [place] [address] Brenna Liriano MD Chronic bilateral low back pain without sciatica 11/04/2024 Orders Only [facility] [address] [place] [address] Brenna Liriano MD 11/03/2024 Telephone [facility] [address] [place] [address] Brenna Liriano MD Lab Orders 10/31/2024 Telephone [facility] [address] [place] [phone] Brenna Liriano MD 10/31/2024 Population Health Risk Score Community [facility] ([facility]) Department [address] [place] [phone] Provider, Population Health Generic 10/30/2024 Travel 10/27/2024 Refill [facility] [address] [place] [address] Brenna Liriano MD Essential hypertension 10/20/2024 Telephone [facility] [place] [address] Brenna Liriano MD 10/09/2024 10:00 AM EST Clinical Support [facility] [address] [facility] [place] [address] 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 RN Chronic bilateral low back pain without sciatica (Primary Dx) 10/09/2024 Telephone [facility] [address] [place] [address] 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 RN UTOX Pos MTD 10/09/2024 Orders Only [facility] [address] [place] [address] Brenna Liriano MD Type 2 diabetes mellitus with hyperglycemia, without long-term current use of insulin ([facility]) (Primary Dx); Chronic schizoaffective schizophrenia ([facility]/HCC) 10/09/2024 Refill [facility] [address] [place] [address] 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 RN Chronic bilateral low back pain without sciatica (Primary Dx) 10/09/2024 Travel 10/09/2024 Telephone [facility] [address] [place] [address] 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 RN Recommend [employer] Tier 2 10/07/2024 Telephone [facility] [address] [place] [address] Brenna Liriano MD Med Refill 10/03/2024 Refill [facility] [address] [place] [address] Brenna Liriano MD Primary osteoarthritis of both knees; Chronic bilateral low back pain without sciatica 09/30/2024 Refill [facility] [address] [place] [address] Brenna Liriano MD Uncomplicated asthma, unspecified asthma severity, unspecified whether persistent 09/30/2024 Refill [facility] [address] [place] [address] Brenna Liriano MD 09/18/2024 Telephone [facility] [address] [place] [address] Juanita Barragan MA OCTOBER RECALL from Last 3 Months Immunizations Name [...] Description 12/11/2024 10:00 AM EDT Medication Management [facility] [address] [place] [phone] 02/17/2025 2:00 PM EDT Clinical Support [facility] [address] [place] [phone] 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, RN Health Maintenance Due Date [...] 01/12/2025 024, 10/09/2023, 12/12/2022 Mammogram 05/01/2025 05/01/2024, 09/12/2022, 04/14/2022, Additional history exists Tobacco Screening 07/15/2025 [...] AUTO DIFFERENTIAL Routine 12/02/2024 3:43 PM EDT XR KUB AND UPRIGHT 2 VIEWS Routine 11/28/2024 9:06 PM EDT URINALYSIS, COMPLETE, WITH REFLEX TO CULTURE Routine 11/28/2024 8:26 PM EDT SLIDE REVIEW Routine 11/28/2024 7:53 PM EDT LIPASE Routine 11/28/2024 7:53 PM EDT MAGNESIUM Routine 11/28/2024 7:53 PM EDT BASIC METABOLIC PANEL Routine 11/28/2024 7:53 PM EDT HEPATIC FUNCTION PANEL Routine 7:53 PM EDT CBC WITH AUTO DIFFERENTIAL Routine 11/28/2024 7:53 PM EDT SARS COV2/INFLUENZA A/B AND RSV RNA QL NAAT Routine 11/28/2024 7:53 PM EDT POCT HEMOGLOBIN [...] long-term current use of insulin (CMS/HCC) POCT GLYCATED HEMOGLOBIN, TOTAL Routine 07/15/2024 [...] to Health Maintenance Results * Slide Review (12/02/2024 3:43 PM EDT) Only the most recent of2 resultswithin the time period is included. Slide Review VERIFIED [facility] 12/02/2024 3:43 PM EDT 12/02/2024 3:44 PM EDT us Generic External Data Provider LAB BLOOD ORDERAB LES Final Result [facility] [address] [place] [phone] * (ABNORMAL) CBC auto differential (12/02/2024 3:43 PM EDT) Only the most recent of2 resultswithin the time period is included. White Blood Count 8.8 4.8 - 10.8 X10*3/uL [facility] Red Blood Count 4.17(L) 4.20 - 5.50 X10*6/uL [facility] Hemoglobin 9.5(L) 12.0 - 16.0 g/dl [facility] Hematocrit 31.7(L) 37.0 - 47.0 % [facility] Mean Corpuscular Volume 76.0(L) 80.0 - 98.0 fL [facility] Mean Corpuscular Hemoglobin 22.8(L) 27.0 - 33.0 pg [facility] Mean Corpuscular HGB Conc 30.0(L) 31.0 - 35.0 g/dl [facility] Red Cell Distribution Width 26.5(H) 11.0 - 16.0 % [facility] Platelet Count 310 160 - 400 X10*3/uL [facility] Neutrophils Percent Auto 51.8 45 - 73 % [facility] Imm Gran Pct Auto 0.5(H) 0.0 - 0.4 % [facility] Lymphocytes Percent Auto 37.2 20 - 40 % [facility] Monocytes Percent Auto 9.2 2 - 11 % [facility] Eosinophils Percent Auto 1.0 0 - 4 % [facility] Basophils Percent Auto 0.3 0 - 2 % [facility] NRBC Pct Auto 0.0 0.0 - 0.2 /100WBC [facility] Neutrophils Absolute Auto 4.5 2.0 - 8.3 x10*3/uL [facility] Imm Gran Abs Auto 0.04(H) 0.00 - 0.03 X10*3/uL [facility] Lymphocytes Absolute Auto 3.3 1.2 - 4.9 X10*3/uL [facility] Monocytes Absolute Auto 0.8 0.1 - 1.2 X10*3/uL [facility] Eosinophils Absolute Auto 0.1 0.0 - 0.4 X10*3/uL [facility] Basophils Absolute Auto 0.0 0.0 - 0.2 X10*3/uL [facility] NRBC Abs Auto 0.000 0.0 - 0.012 X10*3/uL [facility] 12/02/2024 3:43 PM EDT 12/02/2024 3:44 PM EDT us Generic External Data Provider LAB BLOOD ORDERAB LES Edited Result - Final Performing Organization Address [facility]/State/ZIP Co de Phone Number [facility] [address] [facility] [place] [address] [phone] * XR KUB and Upright 2 Views (11/28/2024 9:06 PM EDT) Anatomical Region Laterality Modality Radiographic My ging 11/28/2024 9:06 PM EDT Narrative 11/28/2024 9:08 PM EDT ? [facility] ?[address] ?[place] [address] ?XRay Report ? Signed ? Patient: Brenna Hope ?MR# ?? : [id number] ? : 1965 ?Acct:[id number] ? Age/Sex: 59 / F ?ADM Date: 11/28/24 ? Loc: HO.ED ? Attending Dr: ? Ordering Physician: Katherin Bah CNP ?? Date of Service: 11/28/24 ?? Procedure(s): XR KUB ?? Accession Number(s): [id number] ? cc: Brenna Liriano MD; Katherin Bah CNP ? CLINICAL HISTORY: constipation, pain ? 1 view abdomen ? Comparison: None ? Findings: ?? Large amount of stool throughout the colon and rectum. ?? Gas distended right hepatic flexure. ?? No pneumoperitoneum or pneumatosis. ? IMPRESSION: ? Large amount of stool throughout the colon and rectum. ? This document has been electronically signed by: Gita Pinedo MD on ?? 11/28/2024 21:06:26 ? Dictated By: ?Gita Pinedo MD ? Signed By: ?<Electronically signed by Gita Pinedo MD in OV> ?11/28/242106 ? DD/ 05 ? TD/TT: 11/28/242105 ? Director Business Systems: ? Procedure Note Rosa Sears - 11/28/[address] [address] XRay Report Signed Patient: Brenna Hope DMR# : [id number] : 1965Acct:[id number] Age/Sex: 59 / FADM Date: 11/28/24 Loc: HO.ED Attending Dr: Ordering Physician: Katherin Bah CNP Date of Service: 11/28/24 Procedure(s): XR KUB Accession Number(s): [id number] cc: Brenna Liriano MD; Katherin Bah CNP CLINICAL HISTORY: constipation, pain 1 view abdomen Comparison: None Findings: Large amount of stool throughout the colon and rectum. Gas distended right hepatic flexure. No pneumoperitoneum or pneumatosis. IMPRESSION: Large amount of stool throughout the colon and rectum. This document has been electronically signed by: Gita Pinedo MD on 11/28/2024 21:06:26 Dictated By: Gita Pinedo MD Signed By: <Electronically signed by Gita Pinedo MD in OV> 11/28/242106 DD/ 05 TD/TT: 11/28/242105 Director Business Systems: [facility] External Provider IMG XR PROCEDURES Edited Result - Final * (ABNORMAL) Urinalysis, Complete, with Reflex to Culture (11/28/2024 8:26 PM EDT) Color Urine Dark Yellow [facility] Appearance Urine Clear [facility] PH 5.5 5.0 - 9.0 [facility] Glucose Urine UA Negative Negative mg/dL [facility] Urine Blood Negative Negative [facility] Specific [place] - Urine >=1.030(H) 1.005 - 1.025 [facility] Urine Protein 30 (1+)(A) Neg-Trace mg/dL [facility] Urine Ketones 15 Negative mg/dL [facility] Nitrite Urine Negative Negative [facility] Leukocyte Esterase Urine Negative Negative [facility] RBC Urine 0-2 0 - 2 /HPF [facility] Urine WBC 0-5 0 - 5 /HPF [facility] Urine Squamous Epithelial Cell 3-5 0 - 2 /HPF [facility] Urine Bacteria None Seen None Seen [facility] Hyaline Casts, Urine 3-5 0 - 2 /LPF [facility] 11/28/2024 8:26 PM EDT 11/28/2024 8:28 PM EDT Narrative [facility] - 11/28/2024 8:45 PM EDT Urine, Clean Catch us Generic External Data Provider LAB URINE ORDERAB LES Final Result Performing Organization Address City/[facility]/ZIP Co de Phone Number [facility] [address] [place] [address] [phone] * SARS-CoV-2 RNA, Influenza A/B, and RSV RNA, Ql NAAT (11/28/2024 7:53 PM EDT) Influenza A PCR NEGATIVE Negative [facility] Influenza B PCR NEGATIVE Negative [facility] Resp Syncy Virus RNA Qual PCR NEGATIVE Negative [facility] SARS COV2 PCR NEGATIVE Negative [facility] Comment:All test results mus t be correlated with clinical findings.Negative results do not preclude SARS-CoV2, influenza Avirus, influenza B virus and/or RSV infectionand should not be used as the sole basis for treatment orother patient management decisions. Negative results must becombined with clinical observations, patient history, andepidemiological information.This test has not been evaluated for monitoring treatment ofinfection.This test has been authorized by the FDA under an EmergencyUse Authorization (EUA) for use by authorized laboratories.Testing performed on the [employer] GeneXpert utilizingreal-time RT-PCR.All SARS CoV2 and positive influenza A/B results arereported to [facility]. 11/28/2024 7:53 PM EDT 11/28/2024 7:56 PM EDT us Generic External Data Provider LAB MICROBIOLOGY - GENERAL ORDERABLES Final Result [facility] [address] [place] [phone] * Magnesium (11/28/2024 7:53 PM EDT) Pathologist [facility] Magnesium 1.8 1.6 - 2.6 mg/dL [facility] 11/28/2024 7:53 PM EDT 11/28/2024 7:56 PM EDT us Generic External Data Provider LAB BLOOD ORDERAB LES Final Result Performing Organization Address [facility]/ZIP Co de Phone Number [facility] [address] [place] [phone] * Lipase (11/28/2024 7:53 PM EDT) Pathologist [facility] Lipase 12 8 - 78 U/L [facility] 11/28/2024 7:53 PM EDT 11/28/2024 7:56 PM EDT Generic External Data Provider LAB BLOOD ORDERAB LES Final Result Performing Organization Address City/[facility] Co de Phone Number [facility] [address] [place] [phone] * Hepatic Function Panel (11/28/2024 7:53 PM EDT) Pathologist [facility] Bilirubin, Total 0.3 0.0 - 1.0 mg/dL [facility] Bilirubin, Direct 0.1 0.0 - 0.5 mg/dL [facility] Aspartate Amino Transferase 22 5 - 31 U/L [facility] Alanine Aminotransferase 19 0 - 31 U/L [facility] Total Protein 7.1 6.5 - 8.0 g/dL [facility] Albumin Level 4.0 3.5 - 5.0 g/dL [facility] Alkaline Phosphatase 91 39 - 117 U/L [facility] 11/28/2024 7:53 PM EDT 11/28/2024 7:56 PM EDT us Generic External Data Provider LAB BLOOD ORDERAB LES Final Result Performing Organization Address City/[facility]/ZIP Co de Phone Number [facility] [address] [place] [phone] * (ABNORMAL) Basic Metabolic Panel (11/28/2024 7:53 PM EDT) Sodium 137 135 - 145 mmol/L [facility] Potassium 4.3 3.3 - 5.1 mmol/L [facility] Chloride 102 96 - 108 mmol/L [facility] Carbon Dioxide 24 22 - 29 mmol/L [facility] Anion Gap 15 12 - 20 [facility] Urea Nitrogen (BUN) 19(H) 9 - 16 mg/dL [facility] Creatinine, Serum 0.69 0.5 - 1.4 mg/dL [facility] Creatinine Clr Calc Pharmacy 87.7 [facility] Comment:Provided height and weight: 157.48 cm,83.1 kg.eGFR (calculated from the MDRD study equation) and eCrCl(calculated from the Cockcroft-Gault equation) are based ondifferent parameters and may not yield comparable results.If eCrCl result is absurd, please check patient'sheight/weight. Estimated Glomerular Filt Rate >60 [facility] Comment:Chronic Kidney Disea se: Estimated GFR < 60 mL/min/1.87d3Licprw Kidney Disease: Estimated GFR < 15 mL/min/1.73m2 Glucose 115 60 - 115 mg/dL [facility] Calcium 9.0 8.4 - 10.2 mg/dL [facility] 11/28/2024 7:53 PM EDT 11/28/2024 7:56 PM EDT us Generic External Data Provider LAB BLOOD ORDERAB LES Final Result Performing Organization Address City/[facility]/ZIP Co de Phone Number [facility] [address] [place] [phone] * Influenza B (ID NOW Rapid Molecular) (11/17/2024 10:55 AM EDT) Pathologist [facility] Influenza B Negative Negative, Indeterminate [facility] Swab 11/17/2024 10:5 5 AM EDT us Donny Gallegos MD POINT OF CARE TEST ENTER/EDIT OR DERABLES Final Result Performing Organization Address City/[facility]/ZIP Co de Phone Number [facility] [address] [place] [phone] * Influenza A (ID NOW Rapid Molecular) (11/17/2024 10:55 AM EDT) Pathologist [facility] Influenza A Negative Negative, Indeterminate [facility] Swab 11/17/2024 10:5 5 AM EDT us Donny Gallegos MD POINT OF CARE TEST ENTER/EDIT OR DERABLES Final Result Performing Organization Address [facility] Co de Phone Number [facility] [address] [place] [phone] * POCT COVID-19 Ag Dennis ID NOW (11/17/2024 10:55 AM EDT) [facility] Coronavirus Antigen PCR Negative Negative, Indeterminate, None Detected, Invalid, Specimen unsatisfactory for evaluation, Weakly Positive Swab 11/17/2024 10:5 5 AM EDT us Donny Gallegos MD POINT OF CARE TEST ENTER/EDIT OR DERABLES Final Result * (ABNORMAL) POCT hemoglobin docked device (11/17/2024 10:55 AM EDT) [facility] Hemoglobin 9.4(A) 12.0 - 15.0 Blood 11/17/2024 10:5 5 AM EDT us Donny Gallegos MD POINT OF CARE TEST ENTER/EDIT OR DERABLES Final Result * Vitamin B12 (11/04/2024 8:58 AM EDT) Vitamin B12 367 200 - 900 pg/mL [facility] Comment:NORMAL 200-900 PG/ML INDETERMINATE 160-199 PG/ML DEFICIENT < 160 PG/ML 11/04/2024 8:58 AM EDT 11/04/2024 9:06 AM EDT us Brenna Brower MD LAB BLOOD ORDERABLES Final Result Performing Organization Address City/[facility]/ZIP Co de Phone Number [facility] [address] [place] [address] [phone] * Lipid Panel, Standard (11/04/2024 8:58 AM EDT) Triglycerides 57 <150 mg/dL [facility] Comment:Desirable Triglyceri de: less than 150 mg/dLBorderline High Triglyceride 150-199 mg/dLHigh Triglyceride: 200-499 mg/dLVery High Triglyceride: greater than or equal to 5OO mg/dL Cholesterol 115 <200 mg/dL [facility] Comment:Desirable Cholestero l: less than 200 mg/dLBorderline High Cholesterol: 200-239 mg/dLHigh Cholesterol: greater than 239 mg/dL LDL Cholesterol Calculated 63 <100 mg/dL [facility] Comment:Desirable LDL: less than 100 mg/dLNear Optimal/Above Optimal LDL: 110- 129 mg/dLBorderline High LDL: 130-159 mg/dLHigh LDL: 160-189 mg/dLVery High LDL: greater than or equal to 190 mg/dL HDL Cholesterol 41 >40 mg/dL [facility] Comment:Desirable HDL: great er than 40 mg/dL Note: This HDL assay may give artificially low results in patients with liver disease. 11/04/2024 8:58 AM EDT 11/04/2024 9:06 AM EDT us Brenna Brower MD LAB BLOOD ORDERABLES Final Result [facility] [address] [place] [phone] [phone] * Comprehensive Metabolic Panel (11/04/2024 8:58 AM EDT) Sodium 143 135 - 145 mmol/L [facility] Potassium 3.9 3.3 - 5.1 mmol/L [facility] Chloride 107 96 - 108 mmol/L [facility] Carbon Dioxide 28 22 - 29 mmol/L [facility] Anion Gap 12 12 - 20 [facility] Urea Nitrogen (BUN) 12 9 - 16 mg/dL [facility] Creatinine, Serum 0.52 0.5 - 1.4 mg/dL [facility] Estimated Glomerular Filt Rate >60 [facility] Comment:Chronic Kidney Disea se: Estimated GFR < 60 mL/min/1.45k3Pmsyrf Kidney Disease: Estimated GFR < 15 mL/min/1.73m2 Glucose 110 60 - 115 mg/dL [facility] Calcium 8.6 8.4 - 10.2 mg/dL [facility] Bilirubin, Total 0.3 0.0 - 1.0 mg/dL [facility] Aspartate Amino Transferase 16 5 - 31 U/L [facility] Alanine Aminotransferase 9 0 - 31 U/L [facility] Total Protein 6.8 6.5 - 8.0 g/dL [facility] Albumin Level 3.7 3.5 - 5.0 g/dL [facility] Alkaline Phosphatase 81 39 - 117 U/L [facility] Blood Venous blood specimen / Unknown 11/04/2024 8:58 AM EDT 11/04/2024 9:06 AM EDT us Brenna Brower MD LAB BLOOD ORDERABLES Final Result [facility] [address] [place] [phone] * (ABNORMAL) POCT BANG-14 Urine Drug Screen (10/09/2024 10:43 AM EST) Methadone Screen, Urine Positive Urine Urine specimen obtained by clean catch procedure / Unknown 10/09/2024 10:43 AM EST Narrative 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 RN - 10/09/2024 10:43 AM EST UTOX cup Lot#[id number] Exp. 04/08/26 Internal Pass Control Brenna Brower MD POINT OF CARE TEST EN TER/EDIT ORDERABLES Final Result * Drug Monitoring, Methadone Metabolite, Screen, Urine (10/09/2024 10:00 AM EST) Methadone Screen, Urine Not Detected Not Detect ng/mL [facility] Comment:Methadone cut-off is 300 ng/mL.Positive results are unconfirmed and should not be used fornon-medical purposes. 10/09/2024 10:0 0 AM EST 10/09/2024 6:14 PM EST Brenna Brower MD LAB URINE ORDERABLES Final Result [facility] [address] [place] [phone] * (ABNORMAL) POCT HGB A1C (07/15/2024 1:36 PM EST) Hemoglobin A1C 6.0 4.0 - 6.0 % QC Media Lot # [id number] Lot# Expiration Date [id number] Blood 07/15/2024 1:36 PM EST Brenna Brower MD POINT OF CARE TEST EN TER/EDIT ORDERABLES Final Result * BI Mammogram Screening Tomosynthesis Bilateral (05/01/2024 3:00 PM EDT) Anatomical Region Laterality Modality Breast Bilateral Mammography 05/01/2024 3:00 PM EDT Narrative 05/15/2024 8:10 PM EDT ? [facility] ? [address] ?[place] [address] ? Mammography Report ? Signed ? Patient: Tang Tayla,Karina ?MR# ?? : [id number] ? : 1965 ?Acct:[id number] ? Age/Sex: 58 / F ?ADM Date: 05/01/24 ? Loc: HO.MAMMO ? Attending Dr: Brenna Brower MD ? Ordering Physician: Brenna Liriano MD ?Results: ?? 2Benign Findings ? Date of Service: 05/01/24 ?Follow Up: 1 Year From Orig ?? inal Mammogram ? Procedure(s): MM tomosynthesis screening BI ?? Accession Number(s): [id number] ? cc: Bernna Liriano MD ? EXAMINATION: ?? MM SCREENING [...] DD/ 1500 ? TD/TT: 05/01/24 1521 ? Director Business Systems: ? Procedure Note Rosa Sears - 05/15/2024 [place] [facility] [facility] [address] [place], [place] [address] Mammography Report Signed Patient: Brenna Hope DMR# : [id number] : 1965Acct:[id number] Age/Sex: 58 / FADM Date: 05/01/24 Loc: HO.MAMMO Attending Dr: Brenna Brower MD Ordering Physician: Brenna Liriano MDResults: 2Benign Findings Date of Service: 05/01/24Follow Up: 1 Year From Orig inal Mammogram Procedure(s): MM tomosynthesis screening BI Accession Number(s): [id number] cc: Brenna Liriano MD EXAMINATION: MM SCREENING [...] OV> 05/15/242006 DD/ 1500 TD/TT: 05/01/24 1521 Director Business Systems: Brenna Brower MD IMG BI PROCEDURES Joe abdullahi Result - Final * Hm Colonoscopy (04/02/2024 9:55 AM EDT) Colonoscopy Normal Normal Narrative Jacqueline Valiente - 04/02/2024 9:55 AM EDT Repeat Colonoscopy in 5 years or earlier if clinically indicated see the external hospital admission note on 04/02/2024 Historical Provider [facility] Edited Result - Final * HPV mRNA E6/E7 (03/21/2017 12:00 AM EDT) HPV mRNA E6/E7 Not Detected NOT DETECTED [facility] Comment: This test was performed using the APTIMA(R) HPV Assay ([employer] This assay detects E6/E7 viral messenger RNA (mRNA) from 14 high-risk HPV types (16,18,31,33,35,39,45,51, 52,56,58,59,66,68). For additional information please refer to: http://education.Avatrip/faq/XQG979c6 (This link is being provided for informational/ educational purposes only.) Test Performed by [facility], [address] [place] [address] Eliseo Sierra M.D., Ph.D., Director of Laboratories , [facility] [id number] Please note: ??Effective 05/01/2016, HPV testing will be performed using [employer]'s APTIMA test which targets mRNA. Detecting mRNA instead of DNA, as in older methods, offers significant improvements in specificity. 03/21/2017 us Indira Estrada CNM HISTORICAL/NON ORDERABLE LABS Final Result [facility] [address] from Last 3 Months or Most Recently Relevant to Health Maintenance Insurance C3 * Guarantor: Brenna Hope Account Type Relation to Patient Date of Phone Billing Address Personal/Family Self [address] [phone] Care Teams Geophysics Teacher Relationship Specialty Start Date End Date Brenna Liriano MD [address] [place] [address] PCP - General Family Medicine 07/01/19 [place] [facility] 06/26/24
--- OUTSIDE RECORDS SUMMARY | 2024-12-02 18:40 | XMS_ITS | Encounter Summary ---
Author Organization [employer] Address [address] [place] [address] 7t [place] [address] Care Team Providers Care Railroad Dining Car Steward/Stewardess Name Role Phone Brenna Liriano MD Primary Care Provide r Encounter Details Date Type Department Care Team ([facility] Contact Info) Description 02/08/2023 Orders Only [facility] & PEDS [address] [place], [place] [phone] Enma Sparks LPN Social History Tobacco Use [...] Description 12/11/2024 10:00 AM EDT Medication Management [address] [address] 02/17/2025 2:00 PM EDT Clinical Support [address] [address] 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 RN documented as of this encounter Visit Diagnoses Not on filedocumented in this encounter Care Teams Railroad Dining Car Steward/Stewardess Relationship Specialty Start Date End Date Brenna Liriano MD [address] [place] [address] PCP - General Family Medicine 07/01/19 [facility] 06/26/24 documented as of this encounter
--- OUTSIDE RECORDS SUMMARY | 2024-12-02 18:40 | XMS_ITS | Encounter Summary ---
Author Organization [employer] Address [address] [facility] 7t [place] [address] Care Team Providers Care Tanning Wheel Operator Name Role Phone Brenna Liriano MD Primary Care Provide r Reason for Visit * Reason Comments Med Refill Encounter Details Date Type Department Care Team ([facility] st Contact Info) Description 06/12/2023 Refill [facility] MEDICINE [address] [place], [place] [phone] Brenna Liriano MD 230 [place], [place] [phone] Constipation, unspecified constipation type Social History Tobacco [...] Description 12/11/2024 10:00 AM EDT Medication Management [address] [address] 02/17/2025 2:00 PM EDT Clinical Support [address] [address] 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 RN documented as of this encounter Visit Diagnoses Diagnosis Constipation, unspecified constipation type documented in this encounter Care Teams Tanning Wheel Operator Relationship Specialty Start Date End Date Brenna Liriano MD [address] [place] [address] PCP - General Family Medicine 07/01/19 [facility] 06/26/24 documented as of this encounter
--- OUTSIDE RECORDS SUMMARY | 2024-12-02 18:40 | XMS_ITS | Encounter Summary ---
Author Organization [employer] [facility] Address [address] [place] [address] Care Team Providers Care Cna Pct Name Role Phone Brenna Liriano MD Primary Care Provide r Encounter Details Date Type Department Care Team (Late Contact Info) Description 08/10/2022 [facility] Health Information Management [address] [place] [address] Brenna Liriano MD 230 [place] [address] Social History Tobacco Use Types Packs/Day Years [...] Description 12/11/2024 10:00 AM EDT Medication Management [facility] MED[facility] [address] [place] [phone] 02/17/2025 2:00 PM EDT Clinical Support [facility] [address] [place] [address] [phone] 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 RN documented as of this encounter Visit Diagnoses Not on filedocumented in this encounter Care Teams Cna Pct Relationship Specialty Start Date End Date Brenna Liriano MD [address] [place] [address] PCP - General Family Medicine 07/01/19 [place] [facility] 06/26/24 documented as of this encounter
--- OUTSIDE RECORDS SUMMARY | 2024-12-02 18:40 | XMS_ITS | Encounter Summary ---
Author Organization [employer] Address [address] [facility] 7t [place] [address] Care Team Providers Care Worship Leader Name Role Phone Brenna Liriano MD Primary Care Provide r Reason for Visit * Reason Onset Date Comments Nurse Triage 11/10/2024 Encounter Details Date Type Department Care Team ([facility] st Contact Info) Description 11/10/2024 Telephone [facility] MEDICINE [address] [place], [place] [phone] Brenna Liriano MD [address] [place], [place] [phone] Nurse Triage Social History Tobacco Use Types [...] 11/10/2024 4:06 PM EDT Triage call with [facility] Machine [place] [id number]. Pt called regarding constipation. Pt reports last [...] higher acuity questions Please contact pt at [phone]. (Chinese Speaking) documented in this encounter Plan of Treatment Upcoming Encounters Date Type Department Care Team ([facility] Contact Info) Description 12/11/2024 10:00 AM EDT Medication Management [address] [address] 02/17/2025 2:00 PM EDT Clinical Support [address] [address] 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, RN documented as of this encounter Visit Diagnoses Not on filedocumented in this encounter Care Teams Worship Leader Relationship Specialty Start Date End Date Brenna Liriano MD [address] [place] [address] PCP - General Family Medicine 07[facility]01[facility] documented as of this encounter
--- OUTSIDE RECORDS SUMMARY | 2024-12-02 18:40 | XMS_ITS | Encounter Summary ---
Author Organization [employer] Address [address] [facility] 7t [place] [address] Care Team Providers Care Combination Technician Name Role Phone Brenna Liriano MD Primary Care Provide r Reason for Visit * Reason Comments Med Refill Encounter Details Date Type Department Care Team ([facility] st Contact Info) Description 12/18/2023 Refill [facility] MEDICINE 230 [place], [place] [phone] Brenna Liraino MD 230 [place], [place] [phone] Social History Tobacco Use Types Packs/Day Years [...] Description 12/11/2024 10:00 AM EDT Medication Management [address] [address] 02/17/2025 2:00 PM EDT Clinical Support [address] [address] 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 RN documented as of this encounter Visit Diagnoses Not on filedocumented in this encounter Care Teams Combination Technician Relationship Specialty Start Date End Date Brenna Liriano MD [address] [place] [phone] PCP - General Family Medicine 07/01/19 [place] [facility] 06/26/24 documented as of this encounter
--- OUTSIDE RECORDS SUMMARY | 2024-12-02 18:40 | XMS_ITS | Encounter Summary ---
Author Organization [employer] [facility] Address [address] [place] [address] 7t [place] [address] Care Team Providers Care Glass Mould Cleaner Name Role Phone Brenna Liriano MD Primary [...] Description 12/11/2024 10:00 AM EDT Medication Management [address] [address] 02/17/2025 2:00 PM EDT Clinical Support [address] [address] 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 RN documented as of this encounter Procedures Procedure Name Priority Date/Time Associated Diagnosis Comments XR KUB AND UPRIGHT 2 VIEWS Routine 11/28/2024 9:06 PM EDT URINALYSIS, COMPLETE, WITH REFLEX TO CULTURE Routine 11/28/2024 8:26 PM EDT SLIDE REVIEW Routine 11/28/2024 7:53 PM EDT SARS COV2/INFLUENZA A/B AND RSV RNA QL NAAT Routine 11/28/2024 7:53 PM EDT CBC WITH AUTO DIFFERENTIAL Routine 11/28/2024 7:53 PM EDT MAGNESIUM Routine 11/28/2024 7:53 PM EDT LIPASE Routine 11/28/2024 7:53 PM EDT HEPATIC FUNCTION PANEL Routine 11/28/2024 7:53 PM EDT BASIC METABOLIC PANEL Routine 11/28/2024 7:53 PM EDT documented in this encounter Results * XR KUB and Upright 2 Views (11/28/2024 9:06 PM EDT) Anatomical Region Laterality Modality Radiographic My ging 11/28/2024 9:06 PM EDT Narrative 11/28/2024 9:08 PM EDT ? [facility] ?[address] ?[place] [address] ?XRay Report ? Signed ? Patient: Tang Tayla,Karina ?MR# ?? : [id number] ? : 1965 ?Acct:[id number] ? Age/Sex: 59 / F ?ADM Date: 11/28/24 ? Loc: HO.ED ? Attending Dr: ? Ordering Physician: Katherin Bah CNP ?? Date of Service: 11/28/24 ?? Procedure(s): XR KUB ?? Accession Number(s): [id number] ? cc: Brenna Liriano MD; Katherin Bah [...] ? DD/ 05 ? TD/TT: 11/28/242105 ? Commercial Fisherman: ? Procedure Note [place], Image - 11/28/20[address] [address] XRay Report Signed Patient: Tang BourneBrenna DMR# : [id number] : 1965Acct:[id number] Age/Sex: 59 / FADM Date: 11/28/24 Loc: HO.ED Attending Dr: Ordering Physician: Katherin Bah CNP Date of Service: 11/28/24 Procedure(s): XR KUB Accession Number(s): [id number] cc: Brenna Liriano MD; Katherin Bah CNP [...] in OV> 11/28/242106 DD/ 05 TD/TT: 11/28/242105 Commercial Fisherman: [facility] External Provider IMG XR PROCEDURES Edited Result - Final * (ABNORMAL) Urinalysis, Complete, with Reflex to Culture (11/28/2024 8:26 PM EDT) Color Urine Dark Yellow [facility] Appearance Urine Clear [facility] PH 5.5 5.0 - 9.0 [facility] Glucose Urine UA Negative Negative mg/dL [facility] Urine Blood Negative Negative [facility] Specific [place] - Urine >=1.030(H) 1.005 - 1.025 [facility] Urine Protein 30 (1+)(A) Neg-Trace mg/dL [facility] Urine Ketones 15 Negative mg/dL [facility] Nitrite Urine Negative Negative [facility] Leukocyte Esterase Urine Negative Negative [facility] RBC Urine 0-2 0 - 2 /HPF [facility] Urine WBC 0-5 0 - 5 /HPF [facility] Urine Squamous Epithelial Cell 3-5 0 - 2 /HPF [facility] Urine Bacteria None Seen None Seen [facility] Hyaline Casts, Urine 3-5 0 - 2 /LPF [facility] 11/28/2024 8:26 PM EDT 11/28/2024 8:28 PM EDT Narrative [facility] - 11/28/2024 8:45 PM EDT Urine, Clean Catch Generic External Data Provider LAB URINE ORDERAB LES Final Result [facility] [address] [place] [address] [phone] * SARS-CoV-2 RNA, Influenza A/B, and RSV RNA, Ql NAAT (11/28/2024 7:53 PM EDT) Influenza A PCR NEGATIVE Negative [facility] Influenza B PCR NEGATIVE Negative [facility] Resp Syncy Virus RNA Qual PCR NEGATIVE Negative [facility] SARS COV2 PCR NEGATIVE Negative [facility] Comment:All test results mus t [...] use by authorized laboratories.Testing performed on the [employer] GeneXpert utilizingreal-time RT-PCR.All SARS CoV2 and positive influenza A/B results arereported to [facility]. 11/28/2024 7:53 PM EDT 11/28/2024 7:56 PM EDT us Generic External Data Provider LAB MICROBIOLOGY - GENERAL ORDERABLES Final Result Performing Organization Address [facility] Co de Phone Number [facility] [address] [place] [address] [phone] * Slide Review (11/28/2024 7:53 PM EDT) Slide Review VERIFIED [facility] 11/28/2024 7:53 PM EDT 11/28/2024 7:56 PM EDT Generic External Data Provider LAB BLOOD ORDERAB LES Final Result Performing Organization Address [facility] Co de Phone Number [facility] [address] [place] [address] [phone] * Lipase (11/28/2024 7:53 PM EDT) Pathologist [facility] Lipase 12 8 - 78 U/L [facility] 11/28/2024 7:53 PM EDT 11/28/2024 7:56 PM EDT Generic External Data Provider LAB BLOOD ORDERAB LES Final Result Performing Organization Address [facility]/ZIP Co de Phone Number [facility] [address] [place] [address] [phone] * Magnesium (11/28/2024 7:53 PM EDT) Pathologist [facility] Magnesium 1.8 1.6 - 2.6 mg/dL [facility] 11/28/2024 7:53 PM EDT 11/28/2024 7:56 PM EDT Absio External Data Provider LAB BLOOD ORDERAB LES Final Result Performing Organization Address [facility] Co de Phone Number [facility] [address] [place] [phone] * (ABNORMAL) Basic Metabolic Panel (11/28/2024 7:53 PM EDT) Pathologist [facility] Sodium 137 135 - 145 mmol/L [facility] Potassium 4.3 3.3 - 5.1 mmol/L [facility] Chloride 102 96 - 108 mmol/L [facility] Carbon Dioxide 24 22 - 29 mmol/L [facility] Anion Gap 15 12 - 20 [facility] Urea Nitrogen (BUN) 19(H) 9 - 16 mg/dL [facility] Creatinine, Serum 0.69 0.5 - 1.4 mg/dL [facility] Creatinine Clr Calc Pharmacy 87.7 [facility] Comment:Provided height and weight: 157.48 cm,83.1 kg.eGFR (calculated from the MDRD study equation) and eCrCl(calculated from the Cockcroft-Gault equation) are based ondifferent parameters and may not yield comparable results.If eCrCl result is absurd, please check patient'sheight/weight. Estimated Glomerular Filt Rate >60 [facility] Comment:Chronic Kidney Disea se: Estimated GFR < 60 mL/min/1.74d5Yaduki Kidney Disease: Estimated GFR < 15 mL/min/1.73m2 Glucose 115 60 - 115 mg/dL [facility] Calcium 9.0 8.4 - 10.2 mg/dL [facility] 11/28/2024 7:53 PM EDT 11/28/2024 7:56 PM EDT Generic External Data Provider LAB BLOOD ORDERAB LES Final Result Performing Organization Address [facility] Co de Phone Number [facility] [address] [place] [phone] * Hepatic Function Panel (11/28/2024 7:53 PM EDT) Bilirubin, Total 0.3 0.0 - 1.0 mg/dL [facility] Bilirubin, Direct 0.1 0.0 - 0.5 mg/dL [facility] Aspartate Amino Transferase 22 5 - 31 U/L [facility] Alanine Aminotransferase 19 0 - 31 U/L [facility] Total Protein 7.1 6.5 - 8.0 g/dL [facility] Albumin Level 4.0 3.5 - 5.0 g/dL [facility] Alkaline Phosphatase 91 39 - 117 U/L [facility] 11/28/2024 7:53 PM EDT 11/28/2024 7:56 PM EDT Generic External Data Provider LAB BLOOD ORDERAB LES Final Result Performing Organization Address [facility] Co de Phone Number [facility] [address] [place] [phone] * (ABNORMAL) CBC auto differential (11/28/2024 7:53 PM EDT) White Blood Count 12.2(H) 4.8 - 10.8 X10*3/uL [facility] Red Blood Count 4.21 4.20 - 5.50 X10*6/uL [facility] Hemoglobin 9.5(L) 12.0 - 16.0 g/dl [facility] Hematocrit 31.5(L) 37.0 - 47.0 % [facility] Mean Corpuscular Volume 74.8(L) 80.0 - 98.0 fL [facility] Mean Corpuscular Hemoglobin 22.6(L) 27.0 - 33.0 pg [facility] Mean Corpuscular HGB Conc 30.2(L) 31.0 - 35.0 g/dl [facility] Red Cell Distribution Width 25.9(H) 11.0 - 16.0 % [facility] Platelet Count 374 160 - 400 X10*3/uL [facility] Neutrophils Percent Auto 62.1 45 - 73 % [facility] Imm Gran Pct Auto 0.4 0.0 - 0.4 % [facility] Lymphocytes Percent Auto 28.5 20 - 40 % [facility] Monocytes Percent Auto 8.3 2 - 11 % [facility] Eosinophils Percent Auto 0.5 0 - 4 % [facility] Basophils Percent Auto 0.2 0 - 2 % [facility] NRBC Pct Auto 0.0 0.0 - 0.2 /100WBC [facility] Neutrophils Absolute Auto 7.6 2.0 - 8.3 x10*3/uL [facility] Imm Gran Abs Auto 0.05(H) 0.00 - 0.03 X10*3/uL [facility] Lymphocytes Absolute Auto 3.5 1.2 - 4.9 X10*3/uL [facility] Monocytes Absolute Auto 1.0 0.1 - 1.2 X10*3/uL [facility] Eosinophils Absolute Auto 0.1 0.0 - 0.4 X10*3/uL [facility] Basophils Absolute Auto 0.0 0.0 - 0.2 X10*3/uL [facility] NRBC Abs Auto 0.000 0.0 - 0.012 X10*3/uL [facility] 11/28/2024 7:53 PM EDT 11/28/2024 7:56 PM EDT us Generic External Data Provider LAB BLOOD ORDERAB LES Edited Result - Final [facility] [address] [place] [phone] documented in this encounter Visit Diagnoses Not on filedocumented in this encounter Care Teams Glass Mould Cleaner Relationship Specialty Start Date End Date Brenna Liriano MD [address] [place] [address] PCP - General Family Medicine [facility]19 [facility] documented as of this encounter
--- OUTSIDE RECORDS SUMMARY | 2024-12-02 18:40 | XMS_ITS | Encounter Summary ---
Author Organization [employer] [facility] Address [address] [place] [address] 7t [place] [address] Care Team Providers Care Cooperative Education Director Name Role Phone Brenna Liriano MD Primary Care Provide r Encounter Details Date Type Department Care Team ([facility] [address] Contact Info) Description 02/12/2023 Orders Only [address] [address] Kristen Hernandez LPN Social History [...] 12/11/2024 10:00 AM EDT Medication Management [address] [address] 02/17/2025 2:00 PM EDT Clinical Support [address] [address] 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 RN documented as of this encounter Visit Diagnoses Not on filedocumented in this encounter Care Teams Cooperative Education Director Relationship Specialty Start Date End Date Brenna Liriano MD [address] [place] [address] [place] [address] PCP - General Family Medicine 07/01/19 [facility] 06/26/24 documented as of this encounter
--- OUTSIDE RECORDS SUMMARY | 2024-12-02 18:40 | XMS_ITS | Encounter Summary ---
Author Organization [employer] Address [address] [place] [address] 7t [place] [address] Care Team Providers Care Drop Hammer Setter Up Name Role Phone Brenna Liriano MD Primary Care Provide r Reason for Visit * Reason Comments Care Coordination C3 MARIELENA kelley chart review Encounter Details Date Type Department Care Team (Latest Contact Info) Description 12/01/2024 Patient Outreach [facility] MEDICINE [address] [place] [address] Brenna Liriano MD [address] [place] [address] Care Coordination (C3 MARIELENA Baker chart review) Social History Tobacco Use Types [...] Progress Notes * Zenobia Baker - 12/01/2024 10:05 AM EDT [facility] ED 11/28/24. Please outreach pt for enrollment. CHW Zenobia Baker reviewed chart review completed by BLADE Saldivar RN documented in this encounter Plan of Treatment Upcoming Encounters Date Type Department Care Team (Late st Contact Info) Description 12/11/2024 10:00 AM EDT Medication Management [address] [address] 02/17/2025 2:00 PM EDT Clinical Support [address] [address] 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 RN documented as of this encounter Visit Diagnoses Not on filedocumented in this encounter Care Teams Drop Hammer Setter Up Relationship Specialty Start Date End Date Brenna Liriano MD [address] [place] [address] PCP - General Family Medicine [facility] documented as of this encounter
--- OUTSIDE RECORDS SUMMARY | 2024-12-02 18:40 | XMS_ITS | Encounter Summary ---
Author Organization [employer] Address [address] [facility] 7t [place] [address] Care Team Providers Care Admitting Counselor Name Role Phone Brenna Liriano MD Primary Care Provide r Reason for Visit * Reason Onset Date Comments Med Refill 10/07/2024 Encounter Details Date Type Department Care Team ([facility] st Contact Info) Description 10/07/[address] [facility] MEDICINE [address] [place], [place] [phone] Brenna Liriano MD [address] [place], [place] [phone] Med Refill Social History Tobacco Use Types [...] from PCP today, no tramadol refill until RELATIONSHIP BANKER initial visit completed. Spoke with patient today and pt Is scheduled for 10/09/24. * Telephone Encounter - Melchor Ortega - 10/07/2024 3:05 PM EST TC from pt requesting medication refill. Medications needing refill : traMADol (Ultram) 50 MG tablet To be sent to: [facility] - [place], [place] - [phone] - [place] - [address] documented in this encounter Plan of Treatment Upcoming Encounters Date Type Department Care Team (Late st Contact Info) Description 12/11/2024 10:00 AM EDT Medication Management [facility] [address] [place] [address] 02/17/2025 2:00 PM EDT Clinical Support [address] [address] 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 RN documented as of this encounter Visit Diagnoses Not on filedocumented in this encounter Care Teams Admitting Counselor Relationship Specialty Start Date End Date Brenna Liriano MD [address] [place] [phone] PCP - General Family Medicine 07/01/19 [facility] 06/26/24 documented as of this encounter
--- OUTSIDE RECORDS SUMMARY | 2024-12-02 18:41 | XMS_ITS | Encounter Summary ---
Author Organization [employer] Address [address] [facility] 7t [place] [address] Care Team Providers Care Database Operator Name Role Phone Brenna Liriano MD Primary Care Provide r Reason for Visit * Reason Onset Date Comments Hospital Follow-up 06/25/2024 Encounter Details Date Type Department Care Team ([facility] Contact Info) Description 06/25/2024 Telephone [facility] [address] [place], [place] [phone] Brenna Liriano MD [address] [place], [place] [phone] Hospital Follow-up Social History Tobacco Use Types [...] from pt requesting a HDF appt. Hospital: [facility] Date of admission: Asthma Discharge date: 06/18/24 Diagnosed: 06/24/24 *Send message to [place] Clinical Care Coordinators documented in this encounter Plan of Treatment Upcoming Encounters Date Type Department Care Team (Late st Contact Info) Description 12/11/2024 10:00 AM EDT Medication Management [address] [address] 02/17/2025 2:00 PM EDT Clinical Support [facility] [address] [place] [phone] 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, GUILLE documented as of this encounter Visit Diagnoses Not on filedocumented in this encounter Care Teams Database Operator Relationship Specialty Start Date End Date Brenna Liriano MD [address] [place] [phone] PCP - General Family Medicine 07/01/19 [place] [facility] 06/26/24 documented as of this encounter
== END 2024-12-02 15:34 | disposition home or self-care (01) ==
LOC: HO.LABR 15:33
PROVIDERS: PCP Internal Medicine; Visit Provider Clinical Nurse Specialist Psychiatric/Mental Health, Adult
DX: Z79.899 Other long term (current) drug therapy (principal)
CPT/HCPCS: 36415; 85025

== ENCOUNTER 2025-02-10 14:48 | Outpatient (REF) | payer MEDICAID, SELFPAY ==
[2025-02-10 15:02] LABS: MANUAL DIFF FLAG NO
[2025-02-10 15:28] LABS: Basophils Percent Auto 0.3 % (0-2); Eosinophils Absolute Auto 0.1 X10*3/uL (0.0-0.4); Eosinophils Percent Auto 1.6 % (0-4); Hematocrit 28.2 % (37.0-47.0); Hemoglobin 8.5 g/dl (12.0-16.0); Imm Gran Abs Auto 0.05 X10*3/uL (0.00-0.03); Imm Gran Pct Auto 0.6 % (0.0-0.4); Lymphocytes Absolute Auto 3.1 X10*3/uL (1.2-4.9); Lymphocytes Percent Auto 34.3 % (20-40); Mean Corpuscular HGB Conc 30.1 g/dl (31.0-35.0); Mean Corpuscular Hemoglobin 23.4 pg (27.0-33.0); Mean Corpuscular Volume 77.5 fL (80.0-98.0); Mean Platelet Volume 11.1 fL (9.4-12.3); Monocytes Absolute Auto 0.8 X10*3/uL (0.1-1.2); Monocytes Percent Auto 8.9 % (2-11); Neutrophils Absolute Auto 4.9 x10*3/uL (2.0-8.3); Neutrophils Percent Auto 54.3 % (45-73); Platelet Count 372 X10*3/uL (160-400); Red Blood Count 3.64 X10*6/uL (4.20-5.50); Red Cell Distribution Width 18.2 % (11.0-16.0); White Blood Count 8.9 X10*3/uL (4.8-10.8)
--- OUTSIDE RECORDS SUMMARY | 2025-02-10 18:01 | XMS_ITS | Encounter Summary ---
Author Organization [employer] Address [address] [place] [address] 7 [place] [address] Care Team Providers Care Fixed Interest Dealer Name Role Phone Brenna Liriano MD Primary Care Provide r Encounter Details Date Type Department Care Team (Late st Contact Info) Description 02/10/2025 Orders Only GENERIC EXTERNAL DATA DEPARTMENT Provider, Generic External Data Social History Tobacco Use Types Packs/Day Years Used Date Smoking Tobacco: Former Cigarettes Passive Smoke Exposure: Past Smokeless Tobacco: Never Alcohol Use Standard Drinks/Week Comments Never 0 (1 standard drink = 0.6 oz pur e alcohol) Depression Answer Date Recorded Patient Health Questionnaire-9 Score 1 12/26/2024 Patient Health Questionnaire-9 Score 1 12/26/2024 Last PHQ-9: Questionnaire Data Not on file 0 12/26/2024 Housing Stability Answer Date Recorded What is your housing situation today? I have michael reynolds 01/01/[address] you li ve. Do you have problems with any of the following? None of the above 01/01/2025 Food Insecurity Answer Date Recorded Within the past 12 months, y ou worried that your food would run out before you got money to buy more: Sometimes True 2024 Within the past 12 months,th e food you bought just didn't last and you didn't have enough money to get more: Sometimes True 01/01/2025 Transportation Answer Date Recorded In the past 12 months, has l ack of transportation kept you from medical appts, meetings, work or from getting things needed for daily living? No 01/01/2025 Utilities Answer Date Recorded In the past 12 months, has t he electric, gas, oil or water company threatened to shut off services in your home? No 01/01/2025 Depression Answer Date Recorded Patient Health Questionnaire-2 Score 0 12/26/2024 Internet Access Answer Date Recorded Internet Access Q1 Yes 01/01/2025 Internet Access Q2 Not on file 01/01/2025 Comments Unknown Sex and Gender Information Value Date Recorded Sex Assigned at Female 06/19/2022 10:14 AM EDT Legal Sex Female 10:14 AM EDT Gender Identity Female 06/19/2022 10:14 AM EDT Sexual Orientation Choose not to disclose 2021 10:14 AM EDT documented as of this encounter Plan of Treatment Upcoming Encounters Date Type Department Care Team (Late st Contact Info) Description 02/17/2025 2:00 PM EDT Clinical Support [address] [address] 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 RN documented as of this encounter Procedures Procedure Name Priority Date/Time Associated Diagnosis Comments CBC WITH AUTO DIFFERENTIAL Routine 02/10/2025 3:00 PM EDT documented in this encounter Results * (ABNORMAL) CBC auto differential (02/10/2025 3:00 PM EDT) White Blood Count 8.9 4.8 - 10.8 X10*3/uL [facility] Red Blood Count 3.64(L) 4.20 - 5.50 X10*6/uL [facility] Hemoglobin 8.5(L) 12.0 - 16.0 g/dl [facility] Hematocrit 28.2(L) 37.0 - 47.0 % [facility] Mean Corpuscular Volume 77.5(L) 80.0 - 98.0 fL [facility] Mean Corpuscular Hemoglobin 23.4(L) 27.0 - 33.0 pg [facility] Mean Corpuscular HGB Conc 30.1(L) 31.0 - 35.0 g/dl [facility] Red Cell Distribution Width 18.2(H) 11.0 - 16.0 % [facility] Platelet Count 372 160 - 400 X10*3/uL [facility] Mean Platelet Volume 11.1 9.4 - 12.3 fL [facility] Neutrophils Percent Auto 54.3 45 - 73 % [facility] Imm Gran Pct Auto 0.6(H) 0.0 - 0.4 % [facility] Lymphocytes Percent Auto 34.3 20 - 40 % [facility] Monocytes Percent Auto 8.9 2 - 11 % [facility] Eosinophils Percent Auto 1.6 0 - 4 % [facility] Basophils Percent Auto 0.3 0 - 2 % [facility] NRBC Pct Auto 0.0 0.0 - 0.2 /100WBC [facility] Neutrophils Absolute Auto 4.9 2.0 - 8.3 x10*3/uL [facility] Imm Gran Abs Auto 0.05(H) 0.00 - 0.03 X10*3/uL [facility] Lymphocytes Absolute Auto 3.1 1.2 - 4.9 X10*3/uL [facility] Monocytes Absolute Auto 0.8 0.1 - 1.2 X10*3/uL [facility] Eosinophils Absolute Auto 0.1 0.0 - 0.4 X10*3/uL [facility] Basophils Absolute Auto 0.0 0.0 - 0.2 X10*3/uL [facility] NRBC Abs Auto 0.000 0.0 - 0.012 X10*3/uL [facility] 02/10/2025 3:00 PM EDT 02/10/2025 3:00 PM EDT us Generic External Data Provider LAB BLOOD ORDERAB LES Final Result [facility] [address] [place] [phone] documented in this encounter Visit Diagnoses Not on filedocumented in this encounter Additional Health Concerns Assessment Noted Time PHQ-9 Depression Total Score: 1 12/27/19 25 11:18 AM EDT documented as of this encounter Care Teams Fixed Interest Dealer Relationship Specialty Start Date End Date Brenna Liriano MD [address] [place] [phone] PCP - General Family Medicine 07/01/19 [facility] 06/26/24 documented as of this encounter
== END 2025-02-10 14:49 | disposition home or self-care (01) ==
LOC: HO.LABR 14:48
PROVIDERS: PCP Internal Medicine
DX: Z79.899 Other long term (current) drug therapy (principal)
CPT/HCPCS: 36415; 85025

== ENCOUNTER 2025-02-23 18:15 | Outpatient (REF) | payer MEDICAID, SELFPAY ==
[2025-02-23 18:34] LABS: Appearance Urine Cloudy; Glucose Urine UA Negative (Negative); PH 6.0 (5.0-9.0); Specific Gravity - Urine 1.020 (1.005-1.025); UMIC TRIGGER UACC YES
[2025-02-23 18:40] LABS: UACC Culture Trigger YES
== END 2025-02-23 18:16 | disposition home or self-care (01) ==
LOC: HO.HHCLNP 18:15
PROVIDERS: Visit Provider Nurse Practitioner
DX: R31.29 Other microscopic hematuria (principal)
CPT/HCPCS: 81001; 87086; 87088; 87186

== ENCOUNTER 2025-03-13 13:29 | Outpatient (REF) | payer MEDICAID, SELFPAY ==
--- OUTSIDE RECORDS SUMMARY | 2025-03-13 13:33 | XMS_ITS | Encounter Summary ---
Author Organization [employer] Address [address] [facility] 7t [place] [address] Care Team Providers Care Program Manager Name Role Phone Brenna Liriano MD Primary Care Provide r Reason for Visit * Reason Comments Med Refill Encounter Details Date Type Department Care Team ([facility] st Contact Info) Description 01/02/2025 Refill [facility] [address] [place], [place] [phone] Name, MD Donny 230 [place] [address] Asthma, unspecified asthma severity, unspecified whether complicated, [...] Care Team (Late st Contact Info) Description 03/16/2025 11:30 AM EDT Clinical Support [facility] [address] [place] [phone] 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, GUILLE documented as of this encounter Visit Diagnoses Diagnosis Asthma, unspecified asthma severity, unspecified whether complicated, unspecified whether persistent documented in this encounter Additional Health Concerns Assessment Noted Time PHQ-9 Depression Total Score: 1 12/27/19 25 11:18 AM EDT documented as of this encounter Care Teams Program Manager Relationship Specialty Start Date End Date Brenna Liriano MD [address] [place] [phone] PCP - General Family Medicine [facility] documented as of this encounter
--- OUTSIDE RECORDS SUMMARY | 2025-03-13 13:33 | XMS_ITS | Clinical Summary ---
Author Organization 175 [facility] Address [address] [place] [address] Phone Care Team Providers Care Medical Representative Name Role Phone Andrez Liriano MD Primary Care Provide r Allergies [...] 02/03/2019 COPD (chronic obstructive pu lmonary disease) ([facility] V24, [facility] V28) 02/03/2019 Depression with anxiety 02/03/2019 Overview (07/02/2024): Admission to [facility] 10/24/2018 for crisis and depression. HTN (hypertension) 02/03/2019 Microalbuminuria 02/03/2019 Obesity 02/03/2019 Onychomycosis 02/03/2019 Osteoarthritis 02/03/2019 Overview (07/02/2024): Knees, bilaterally. Schizoaffective disorder ([facility] V24, [facility] V 28) 02/03/2019 Type 2 diabetes mellitus wit h renal manifestations ([facility] V24, [facility] V28) 02/03/2019 Medical History Medical History Date Comments Depression with anxiety 02/03/2019 DX:Depre ssion with anxiety; COMMENT: Admission to [facility] 10/24/2018 for crisis and depression. Asthma 02/03/2019 DX:Asthma Onychomycosis 02/03/2019 DX:Onychomycosis Osteoarthritis 02/03/2019 DX:Osteoarthriti s; COMMENT: knees, bilaterally. HTN (hypertension) 02/03/2019 DX:HTN (hyper tension) COPD (chronic obstructive pu lmonary disease) ([facility] V24, [facility] V28) 02/03/2019 DX:COPD (chronic o bstructive pulmonary disease) ([facility]) Schizoaffective disorder ([facility] V24, [facility] V28) 02/03/2019 DX:Schizoaffective disorder (HCC) Microalbuminuria 02/03/2019 DX:Microalbumin uria Type 2 diabetes mellitus wit h renal manifestations ([facility] V24, [facility] V28) 02/03/2019 DX:Type 2 diabetes mellitus with renal manifestations ([facility]) Tobacco use 02/03/2019 DX:Tobacco use Chronic [...] 11/03/2024 2:28 PM EDT Plan of Treatment Health Maintenance Due Date Last Done Comments Breast Cancer Screening 1965 Diabetes: Annual Foot Exam 1975 Diabetes: Annual Retina Eye Exam 1975 Cervical Cancer Screening: Pap Smear 1986 Zoster Vaccines (1 of 2) 2015 Cholesterol Screening (Lipid Panel) 03/18/2024 Colorectal Cancer Screening: Colonoscopy 03/18/2024 Diabetes: Annual Urine Albumin-Creatinine Ratio (uACR) 03/18/2024 HIV Screening 03/18/2024 Hepatitis C Screening 03/18/2024 Social Influencers of Health Screening 03/18/2024 COVID-19 Vaccine ( season) 2024 01/30/2022, 01/26/2021, 12/23/2020 Depression Screening 08/20/2024 Diabetes: Blood Sugar Control Test (HGBA1C) 01/12/2025 07/15/2024 Influenza Vaccine (#1) 2025 , 06/21/2022, 07/11/2021, Additional history exists Diabetes: Annual [...] topic Insurance MEDICAID - [place] Care Teams Medical Representative Relationship Specialty Start Date End Date Andrez Liriano MD [address] [phone] PCP - General 08/30/23
[2025-03-13 13:40] LABS: MANUAL DIFF FLAG NO
[2025-03-13 13:49] LABS: Hematocrit 27.6 % (37.0-47.0); Hemoglobin 8.0 g/dl (12.0-16.0); Imm Gran Abs Auto 0.10 X10*3/uL (0.00-0.03); Imm Gran Pct Auto 1.0 % (0.0-0.4); Lymphocytes Absolute Auto 2.6 X10*3/uL (1.2-4.9); Mean Corpuscular HGB Conc 29.0 g/dl (31.0-35.0); Mean Corpuscular Hemoglobin 21.6 pg (27.0-33.0); Mean Corpuscular Volume 74.6 fL (80.0-98.0); NRBC Abs Auto 0.040 X10*3/uL (0.0-0.012); NRBC Pct Auto 0.4 /100WBC (0.0-0.2); Platelet Count 439 X10*3/uL (160-400); Red Blood Count 3.70 X10*6/uL (4.20-5.50); White Blood Count 10.3 X10*3/uL (4.8-10.8)
== END 2025-03-13 13:30 | disposition home or self-care (01) ==
LOC: HO.LABR 13:29
PROVIDERS: PCP Nurse Practitioner
DX: Z79.899 Other long term (current) drug therapy (principal)
CPT/HCPCS: 36415; 85025

== ENCOUNTER 2025-03-16 13:36 | Outpatient (REF) | payer MEDICAID, SELFPAY | END 2025-03-16 13:37 | disposition home or self-care (01) | LOC: HO.HHCLNP 13:36 | PROVIDERS: Visit Provider Internal Medicine | DX: Z79.891 Long term (current) use of opiate analgesic (principal) | CPT/HCPCS: 36415; 80307 ==

== ENCOUNTER 2025-03-24 09:50 | Outpatient (AMB) | payer MEDICAID, SELFPAY ==
[2025-03-24 09:53] VITALS: BP 120/62; PULSE 108; BMI 35.2
--- NOTE | 2025-03-24 09:53 | MHC.OFFVIS ---
Vital Signs 03/24/25 09:53 Height 5 ft 2 in Weight 192 lb 3.889 oz BMI 35.2 BP 120/62 Blood Pressure Location Lt brachial Position Sitting Pulse 108 H Pulse Source Monitor Intake Visit Reasons: 1 yr f/up Rate Setter Required: No Machine Preservative Filler: Machine Preservative Filler Present Allergies diazepam (From Valium) Allergy (Unknown, Verified 03/24/25 09:58) Unknown haloperidol (From Haldol) Allergy (Unknown, Verified 03/24/25 09:58) Unknown Penicillins Allergy (Unknown, Verified 03/24/25 09:58) Unknown risperidone (From Risperdal) Allergy (Unknown, Verified 03/24/25 09:58) Unknown aspirin (Aspirin) Adverse Reaction (Intermediate, Verified 03/24/25 09:58) Vomiting trazodone (TRAZODONE) Adverse Reaction (Intermediate, Verified 03/24/25 09:58) NAUSEA & VOMITING Medication List - Last Reconciled 03/24/25 by SOHEILA ValienteC albuterol sulfate 90 mcg/actuation (Ventolin HFA) 2 puffs inhalation Q6H PRN albuterol sulfate 2.5 mg (3 mL) inhalation Q4H PRN atorvastatin 40 mg PO BEDTIME capsaicin 0.025% 1 appl topical DAILY PRN cefuroxime axetil 500 mg PO Q12H clonazepam 1 mg PO BEDTIME clonazepam 0.5 mg PO DAILY clozapine 25 mg PO BEDTIME clozapine 300 mg PO BEDTIME diltiazem HCl CD 120 mg PO DAILY divalproex ER 250 mg PO BEDTIME divalproex ER 1,000 mg PO BEDTIME docusate sodium 100 mg PO BID PRN fluoxetine 30 mg (3 x 10 mg) PO DAILY fluoxetine 20 mg PO QAM fluticasone propionate 110 mcg/actuation 2 puffs inhalation BID lactulose 20 grams PO DAILY PRN lactulose 45 mL PO QAM lisinopril 10 mg PO DAILY loratadine 10 mg PO DAILY magnesium hydroxide (Milk of Magnesia) 5 mL PO DAILY PRN metformin ER 500 mg PO BID montelukast 10 mg PO DAILY nicotine 1 patch transdermal Q24H olanzapine 5 mg PO BEDTIME omeprazole 20 mg PO BID@0630,1630 polyethylene glycol 3350 17 grams PO DAILY polyethylene glycol 3350 (Miralax) 17 grams PO DAILY sennosides (senna) 17.2 mg PO BEDTIME PRN sucralfate 1 g PO TID tramadol 50 mg PO DAILY PRN HPI HPI 1 yr f/up: Details: Brenna is a 59-year-old female with past medical history of hyperlipidemia, obesity, COPD, sinus tachycardia, anemia who presents for follow-up. Today she presents with her CH[employer] manager of case management who is assisting with translation at their request. Patient denies any chest discomfort at rest or with activity. She denies any recent issues with her breathing. No PND, orthopnea or edema. She can feel her heart beating fast at times. No lightheadedness, presyncope, syncope, falls. She uses a cane for balance. No bleeding reported in urine or stool. Takes her meds as directed. Attends a day program where she does activities and light exercise. [facility] Medical History Anemia Diabetes Morbid obesity due to excess calories Anxiety Chronic mental illness COPD (chronic obstructive pulmonary disease) Hyperlipidemia Schizophrenia Asthma Surgical History Hx of colonoscopy History of tubal ligation H/O right knee surgery History of appendectomy Family History Father Throat cancer Mother CVA (cerebral vascular accident) Brother Drug overdose Sister No problems noted. Sister No problems noted. Son No problems noted. Son No problems noted. 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: Caregiver Household Members Other:: Lanny Soto, Inocencio Soto, - foster parents Housing: House Do you presently have visiting nurse or other home services: Yes Unable to assess alcohol history related to: Unknown Alcohol intake: never Comment: pt moves well s sba Patient Tobacco Use Status: Former Tobacco user Tobacco use type: Cigarette Cigarettes Per Day: 10 e-Cigarette/Vaping Use: Never Used Second Hand Smoke Exposure: No Advance Directives Date on File: 10/29/24 service: No Current occupational status: disabled Sexual orientation: Straight/Heterosexual Review of Systems Const All systems reviewed & are unremarkable except as noted in HPI and below ENT Denies dizziness Card Denies chest pain, Denies chest pain at rest, Denies chest pain with activity, Reports rapid heart rate, Denies pedal edema, Denies edema, Denies leg edema, Denies lightheadedness, Denies palpitations, Denies dyspnea, Denies dyspnea on exertion and Denies orthopnea Resp Denies cough, Denies dyspnea and Denies dyspnea on exertion GI Denies hematochezia and Denies change in stool character Musc Denies abnormal gait, Denies limited range of motion, Denies muscle cramps, Denies muscle weakness, Denies numbness, Denies radiating pain into limb, Denies stiffness and Denies tingling Neuro Denies abnormal gait, Denies dizziness, Denies numbness and Denies tingling Endo Denies palpitations Physical Exam Vital Signs: Last Vital Signs Pulse 108 H 03/24/25 09:53 BP 120/62 03/24/25 09:53 BMI result Body Mass Index 35.2 Const General: cooperative, healthy appearing, comfortable and no acute distress Orientation/consciousness: patient oriented x3 Neck Neck: Yes normal visual inspection Resp Effort & Inspection: normal respiratory effort Auscultation: clear to auscultation bilaterally, no rales, no rhonchi and no wheezes Cardio Rate: tachycardic Rhythm: regular rhythm Heart sounds: S1 normal heart sound present, S2 normal heart sound present, no gallops, no murmurs and no rubs Neuro General: patient oriented x3 Extrem General: Yes normal to inspection Psych Appearance: grossly normal Mental Status: mental status grossly normal Speech and movement: Normal speech and movement present Office Procedures EKG Details: Today, read by me sinus tachycardia, nonspecific ST/ T wave abn, rate 108 [id number], Complete Assessment & Plan Assessment & Plan (1) Sinus tachycardia: Code(s): R00.0 - Tachycardia, unspecified Category: Medical Plan: History of sinus tachycardia, asymptomatic in pt with chronic anemia. Last echocardiogram 05/11/2023 showed EF 50-55%, grade 1 diastolic dysfunction, normal valves. A Holter monitor done 05/16/2023 for 2 days showing sinus tach with average heart rate 106, 68% of the time heart rate greater than 100. Prior TSH normal. She continues on diltiazem CD 120 mg daily to help with heart rate control. EKG today Sinus tachycardia rate 108. Labs 03/13/25 HCT 27.6 which is similar to prior values. She continues to follow with GI. At this time will increase diltiazem up to 180 mg daily. Will update echocardiogram to re-evaluate for cardiomyopathy. Plan to call her with results. Cardiology follow-up 1 year, sooner if needed or if echo results warrant visit. If she does have cardiomyopathy then will plan to change diltiazem to metoprolol. (2) Anemia: Code(s): D64.9 - Anemia, unspecified Category: Medical Qualifiers: Iron deficiency anemia type: chronic blood loss Plan: As above (3) Hypertension: Code(s): I10 - Essential (primary) hypertension Category: Medical Plan: Blood pressure goal less than 130/80. Well controlled at present. Increasing diltiazem to help with heart rate. Plan Time spent on chart review, documentation, interview and assessment Orders: Orders CA echo transthoracic complete Today R00.0 - Tachycardia, unspecified Medications: New diltiazem HCl CD (Cardizem CD) dose increased 180 mg PO DAILY 90 caps 3RF Discontinued diltiazem HCl CD Discontinued Reason: Doctor's Order 120 mg PO DAILY 90 caps 1RF Coding Level of Care Code Est Pt Level 4 (41442) Complex EM visit Add On G2211 Diagnoses Sinus tachycardia R00.0 Anemia D64.9 Iron deficiency anemia type: chronic blood loss Hypertension I10 CPT Codes EKG - CPT: 80926-[id number], Complete ([id number]) Time Spent (min) 28
--- OUTSIDE RECORDS SUMMARY | 2025-03-24 10:17 | XMS_ITS | Clinical Summary ---
Author Organization 175 [facility] Address [address] [place] [address] Phone Care Team Providers Care Hand Flesher Name Role Phone Andrez Liriano MD Primary [...] 02/03/2019 COPD (chronic obstructive pu lmonary disease) ([facility] V24, [facility] V28) 02/03/2019 Depression with anxiety 02/03/2019 Overview (07/02/2024): Admission to [facility] 10/24/2018 for crisis and depression. HTN (hypertension) 02/03/2019 Microalbuminuria 02/03/2019 Obesity 02/03/2019 Onychomycosis 02/03/2019 Osteoarthritis 02/03/2019 Overview (07/02/2024): Knees, bilaterally. Schizoaffective disorder ([facility] V24, [facility] V 28) 02/03/2019 Type 2 diabetes mellitus wit h renal manifestations ([facility] V24, [facility] V28) 02/03/2019 Medical History Medical History Date Comments Depression with anxiety 02/03/2019 DX:Depre ssion with anxiety; COMMENT: Admission to [facility] 10/24/2018 for crisis and depression. Asthma 02/03/2019 DX:Asthma Onychomycosis 02/03/2019 DX:Onychomycosis Osteoarthritis 02/03/2019 DX:Osteoarthriti s; COMMENT: knees, bilaterally. HTN (hypertension) 02/03/2019 DX:HTN (hyper tension) COPD (chronic obstructive pu lmonary disease) ([facility] V24, [facility] V28) 02/03/2019 DX:COPD (chronic o bstructive pulmonary disease) ([facility]) Schizoaffective disorder (CM S/HCC V24, [facility] V28) 02/03/2019 DX:Schizoaffective disorder (HCC) Microalbuminuria 02/03/2019 DX:Microalbumin uria Type 2 diabetes mellitus wit h renal manifestations ([facility] V24, [facility] V28) 02/03/2019 DX:Type 2 diabetes mellitus [...] topic Insurance MEDICAID - [place] Care Teams Hand Flesher Relationship Specialty Start Date End Date Andrez Liriano MD [address] [phone] PCP - General 08/30/23
--- OUTSIDE RECORDS SUMMARY | 2025-03-24 10:17 | XMS_ITS | Encounter Summary ---
Author Organization [employer] Address 75 [facility] 7t [place] [address] Care Team Providers Care Credit Union Manager Name Role Phone Brenna Liriano MD Primary Care Provide r Reason for Visit * Reason Comments Med Refill Encounter Details Date Type Department Care Team ([facility] st Contact Info) Description 01/02/2025 Refill [facility] [address] [place], [place] [phone] Name, MD Donny [address] [place] [address] Asthma, unspecified asthma severity, unspecified whether complicated, [...] Care Team (Late st Contact Info) Description 06/10/2025 11:30 AM EDT Clinical Support [facility] [address] [place] [phone] 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, GUILLE documented as of this encounter Visit Diagnoses Diagnosis Asthma, unspecified asthma severity, unspecified whether complicated, unspecified whether persistent documented in this encounter Additional Health Concerns Assessment Noted Time PHQ-9 Depression Total Score: 1 12/27/19 25 11:18 AM EDT documented as of this encounter Care Teams Credit Union Manager Relationship Specialty Start Date End Date Brenna Liriano MD [address] [place] [phone] PCP - General Family Medicine 07/01/19 [facility] 06/26/24 documented as of this encounter
== END 2025-03-24 10:34 | disposition home or self-care (01) ==
LOC: HO.HCS 09:50
PROVIDERS: PCP Internal Medicine; Visit Provider Nurse Practitioner Family
DX: R00.0 Tachycardia, unspecified (principal); D64.9 Anemia, unspecified; I10 Essential (primary) hypertension
CPT/HCPCS: 93010; 99214

== ENCOUNTER → 2025-03-24 09:50 | Outpatient (BNVA) | payer MEDICAID, SELFPAY | PROVIDERS: PCP Internal Medicine; Visit Provider Nurse Practitioner Family | DX: I10 Essential (primary) hypertension (principal); R00.0 Tachycardia, unspecified | CPT/HCPCS: 93005; 99212 ==

== ENCOUNTER 2025-04-23 19:51 | Inpatient (IN) | payer MEDICAID, SELFPAY ==
--- NOTE | ~2025-04-23 | XR_ITS ---
CLINICAL HISTORY: tube placement 1 view chest x-ray Comparison: CR/SR - XR CHEST 2 VIEWS - 06/18/24 15:49 EDT Findings: The lungs are clear. Normal size heart. No acute fracture. Well-positioned enteric tube. IMPRESSION: Well-positioned enteric tube. This document has been electronically signed by: Yogi Kunz MD on 04/24/2025 05:23:25
--- NOTE | ~2025-04-23 | CT_ITS ---
CLINICAL HISTORY: no stool, no flatus, pain and distended abd CT abdomen and pelvis with contrast Comparison: CT of the abdomen and pelvis from 03/28/2024 Findings: Mild bibasilar atelectasis and motion artifacts. No significant change solid abdominal organs. No hydronephrosis. Mild gallbladder wall thickening suggested including of the fundus by CT. No new or enlarging lymphadenopathy by CT. No small bowel obstruction. Severe distention of the large intestine with gas and stool; with distention of the large intestine including sigmoid measuring 6 cm diameter. The appendix is not definitively seen with the apparently redundant colon including redundant transverse colon. Uterus is anteverted and mildly retroflexed. Mild wall thickening of the urinary bladder is nonspecific. No adnexal soft tissue mass by CT. Vascular calcifications are redemonstrated including phleboliths in the pelvis. Mild subcutaneous edema is nonspecific in the [id number]. Degenerative changes include facet arthropathy of the imaged spine. IMPRESSION: 1. Severe stool burden of the distended in redundant large intestine. Colonic outlet obstruction not excluded by imaging. 2. No small bowel obstruction. 3. Nonspecific wall thickening of the urinary bladder. This document has been electronically signed by: Anthony Sanchez MD on 04/24/2025 01:00:36
--- NOTE | ~2025-04-23 | CT_ITS ---
EXAMINATION: CT SOFT TISSUE NECK WITH CONTRAST CLINICAL INFORMATION: Submandibular lymphadenopathy versus abscess. COMPARISON: None available. TECHNIQUE: Following the intravenous administration of 60 mL of Omnipaque 350 intravenous contrast, helical imaging was performed in the axial plane with generation of coronal and sagittal reformatted images. This CT examination was performed using dose optimization techniques as appropriate, variously including the following: *Automated exposure control *Adjustment of mA and/or kV according to patient size (this includes techniques or standardized protocols for targeted exams where dose is matched to indication/reason for exam; i.e. extremities or head) *Use of iterative reconstruction technique DLP: 600 mGy centimeter. FINDINGS: Skull base, nasopharynx, retropharynx, oropharynx, hypopharynx and larynx demonstrated no masses or fluid collections. Plastic Technician spaces, parapharyngeal spaces, carotid spaces demonstrated no gross masses or fluid collections. Salivary glands demonstrated no gross sialolithiasis or masses. There is edema pattern without fluid collections above and beneath the platysma at the submandibular and upper neck. Nonspecific prominent, less than 1 cm cervical lymph nodes mostly at the level 2, bilaterally. The oral cavity and sublingual compartments demonstrated no gross masses or fluid collections. Thyroid gland is not enlarged. No dominant nodules in the thyroid gland. The main vessels are patent. Mixed plaques in the left ICA. Retropharyngeal trajectory right ICA. There is a nasogastric catheter inserted right nasal cavity towards the esophagus. No masses in the intraconal or extraconal compartments of the orbits. Bilateral apical lung scarring. Spondylosis in the upper thoracic spine.. CT/CT soft tissue neck w IV con IMPRESSION: Edema pattern without fluid collections in the submandibular compartment and upper neck. Nonspecific prominent cervical lymph nodes. Electronically signed by: Will Langley MD 04/27/2025 10:59 AM EDT
--- NOTE | ~2025-04-23 | US_ITS ---
CLINICAL HISTORY: Ascitis - abd distension US abdomen limited Comparison: CT/REG/SR - CT ABDOMEN PELVIS W IV CON - 04/23/25 23:17 EDT US/NE/SR - US ABDOMEN LIMITED - 03/28/24 14:21 EDT Findings: Sonographic evaluation of all 4 quadrants of the peritoneal cavity showed no ascites. Impression: 1. No ascites demonstrated within any of the 4 quadrants of the peritoneal cavity This document has been electronically signed by: Elias Mari MD on 04/25/2025 18:24:35
[2025-04-23 20:04] VITALS: BP 139/66; PULSE 107; RESP 18; TEMP 36.8; O2SAT 96; BMI 35.7
[2025-04-23 20:30] LABS: MANUAL DIFF FLAG NO
[2025-04-23 20:43] LABS: Appearance Urine Clear; Glucose Urine UA Negative (Negative); PH 6.0 (5.0-9.0); Specific Gravity - Urine 1.025 (1.005-1.025); UMIC TRIGGER UACC YES
[2025-04-23 20:47] LABS: Alanine Aminotransferase 18 U/L (0-31); Albumin Level 4.4 g/dL (3.5-5.0); Alkaline Phosphatase 91 U/L (39-117); Anion Gap 14 (12-20); Aspartate Amino Transferase 16 U/L (5-31); Blood Urea Nitrogen 15 mg/dL (9-16); Calcium 8.6 mg/dL (8.4-10.2); Carbon Dioxide 25 mmol/L (22-29); Chloride 100 mmol/L (96-108); Creatinine Clr Calc Pharmacy 102.1; Estimated Glomerular Filt Rate > 60; Lipase 21 U/L (8-78); Potassium 4.3 mmol/L (3.3-5.1); Sodium 135 mmol/L (135-145); Total Protein 7.5 g/dL (6.5-8.0)
[2025-04-23 20:52] LABS: UACC Culture Trigger YES
--- OUTSIDE RECORDS SUMMARY | 2025-04-23 21:04 | XMS_ITS | Encounter Summary ---
Author Organization [employer] Address [address] [place] [address] 7t [place] [address] Care Team Providers Care Cushion Installer Name Role Phone Brenna Liriano MD Primary Care Provide r Reason for Visit * Reason Comments Med Refill Encounter Details Date Type Department Care Team ([facility] st Contact Info) Description 04/14/2025 Refill [facility] MEDICINE 230 [place], [place] [phone] Brenna Liriano MD 230 [place] [address] Chronic bilateral low back pain without sciatica [...] Telephone Encounter - 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 RN - 04/15/2025 8:43 AM EDT Per mass pat, Tramadol last picked up 03/26/25 for a 28 day supply. Refill due 04/23/25. Will forward to PCP on 04/21/25. documented in this encounter Plan of Treatment Upcoming Encounters Date Type Department Care Team (Late st Contact Info) Description 06/10/2025 11:30 AM EDT Clinical Support [facility] MEDICINE [address] [place] [phone] 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, RN documented as of this encounter Visit Diagnoses Diagnosis Chronic bilateral low back pain without sciatica documented in this encounter Additional Health Concerns Assessment Noted Time PHQ-9 Depression Total Score: 1 12/27/19 25 11:18 AM EDT documented as of this encounter Care Teams Cushion Installer Relationship Specialty Start Date End Date Brenna Liriano MD [address] [place] [phone] PCP - General Family Medicine 07/01/19 [facility] 06/26/24 documented as of this encounter
--- OUTSIDE RECORDS SUMMARY | 2025-04-23 21:04 | XMS_ITS | Encounter Summary ---
Author Organization [employer] Address [address] [facility] 7t [place] [address] Care Team Providers Care Coal Feeder Operator Name Role Phone Brenna Liriano MD Primary Care Provide r Reason for Visit * Reason Comments Med Refill Encounter Details Date Type Department Care Team ([facility] st Contact Info) Description 01/02/[address] [facility] 230 [place], [place] [phone] Name, MD Donny 230 [place] [address] Asthma, unspecified asthma severity, unspecified whether complicated, [...] Description 06/10/2025 11:30 AM EDT Clinical Support [facility] [address] [place] [address] 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, GUILLE documented as of this encounter Visit Diagnoses Diagnosis Asthma, unspecified asthma severity, unspecified whether complicated, unspecified whether persistent documented in this encounter Additional Health Concerns Assessment Noted Time PHQ-9 Depression Total Score: 1 12/27/19 25 11:18 AM EDT documented as of this encounter Care Teams Coal Feeder Operator Relationship Specialty Start Date End Date Brenna Liriano MD [address] [place] [phone] PCP - General Family Medicine 07/01/19 [facility] 06/26/24 documented as of this encounter
--- OUTSIDE RECORDS SUMMARY | 2025-04-23 21:04 | XMS_ITS ---
Author Organization [employer] Address [address] [place] [address] 7 [place] [address] Care Team Providers Care Fence Machine Operator Name Role Phone Brenna Liriano MD Primary Care Provide r CM Complex Status:Closed (Closed) Start date:12/01/2024 Enrollment date:12/25/2024 End date:04/21/2025 Close reason:Declined to Participate Overview [facility] ED 11/28/24 Continued Care and Services Coordination
--- OUTSIDE RECORDS SUMMARY | 2025-04-23 21:04 | XMS_ITS | Encounter Summary ---
Author Organization [employer] Address [address] [facility] 7t [place] [address] Care Team Providers Care Residential Coordinator Name Role Phone Brenna Liriano MD Primary Care Provide r Encounter Details Date Type Department Care Team (Late st Contact Info) Description 02/25/2025 Results Follow-Up [facility] MEDICINE [address] [place] [address] Nikki Akhtar NP 230 [place], [place] [phone] Urinalysis, Complete, with Reflex to Culture, Culture, Urine, Routine Social History Tobacco Use Types Packs/Day Years [...] Description 06/10/2025 11:30 AM EDT Clinical Support [facility] [address] [place] [address] 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, RN documented as of this encounter Visit Diagnoses Diagnosis Recurrent UTI (urinary tract infection)- Primary documented in this encounter Additional Health Concerns Assessment Noted Time PHQ-9 Depression Total Score: 1 12/27/19 25 11:18 AM EDT documented as of this encounter Care Teams Residential Coordinator Relationship Specialty Start Date End Date Brenna Liriano MD 230 [place] [address] PCP - General Family Medicine 07[facility]01[facility] documented as of this encounter
--- OUTSIDE RECORDS SUMMARY | 2025-04-23 21:04 | XMS_ITS | Encounter Summary ---
Author Organization [employer] Address [address] [place] [address] 7t [place] [address] Care Team Providers Care Intelligence Engineer Name Role Phone Brenna Liriano MD Primary Care Provide r Encounter Details Date Type Department Care Team ([facility] Contact Info) Description 02/08/2023 Orders Only [facility] [address] [place], [place] [phone] Enma Sparks LPN Social History Tobacco Use [...] Department Care Team (Late Contact Info) Description 06/10/2025 11:30 AM EDT Clinical Support [facility] MEDIC[facility] [address] [place] [address] 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 RN documented as of this encounter Visit Diagnoses Not on filedocumented in this encounter Care Teams Intelligence Engineer Relationship Specialty Start Date End Date Brenna Liriano MD 230 [place] [address] PCP - General Family Medicine 07/01/19 [facility] 06/26/24 documented as of this encounter
--- OUTSIDE RECORDS SUMMARY | 2025-04-23 21:04 | XMS_ITS | Encounter Summary ---
Author Organization [employer] [facility] Address [address] [place] [address] 7 [place] [address] Care Team Providers Care Forest Fire Management Officer Name Role Phone Brenna Liriano MD Primary Care Provide r Encounter Details Date Type Department Care Team ([facility] Contact Info) Description 02/12/2023 Orders Only [address] [address] Kristen Hernandez LPN Social History Tobacco Use [...] Description 06/10/2025 11:30 AM EDT Clinical Support [address] [phone] 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 RN documented as of this encounter Visit Diagnoses Not on filedocumented in this encounter Care Teams [place] Fire Management Officer Relationship Specialty Start Date End Date Brenna Liriano MD [address] [place] [address] [phone] PCP - General Family Medicine 07/01/19 [facility] 06/26/24 documented as of this encounter
--- OUTSIDE RECORDS SUMMARY | 2025-04-23 21:04 | XMS_ITS ---
Author Organization [employer] Address [address] [place] [address] 7 [place] [address] Care Team Providers Care Computer Graphics Illustrator Name Role Phone Brenna Liriano MD Primary Care Provide r CHW Complex Status:Enrolled (Active) Start date:12/01/2024 Enrollment date:01/01/2025 Enrollment reason:ADT Feed Overview ADT- [facility] ED 11/28/24 Case Team Name Relationship Phone Zenobia Baker(Responsible Staff) [phone] Continued Care and Services Coordination
--- OUTSIDE RECORDS SUMMARY | 2025-04-23 21:04 | XMS_ITS | Encounter Summary ---
Author Organization [employer] Address [address] [place] [address] 7 [place] [address] Care Team Providers Care Revising Clerk Name Role Phone Brenna Liriano MD Primary Care Provide r Reason for Visit * Reason Comments Care Management C3CM- F/U call # 1 Encounter Details Date Type Department Care Team ([facility] st Contact Info) Description 04/21/2025 Patient Outreach [facility] MEDICINE 230 [place] [address] Brenna Liriano MD 230 [place] [address] Care Management (C3CM- F/U call # 1) Social History Tobacco Use Types Packs/Day Years [...] Progress Notes * Musa Saldivar RN - 04/21/2025 10:09 AM EDT CM Musa Saldivar RN placed outbound call to patient. Patient's name, confirmed. Patient declined to participate further in program. CM inform that program will be closed. No further questions or concerns. CM reinforced direct contact information or CHW for any additional questions or concerns. Education provided on Walk-In Urgent Care located in [facility] of [facility]. Patient provided with after-hours line for [facility], , which offer night time triage service and option to transfer to front end web designer provider if needed. Patient verbalizes understanding. documented in this encounter Plan of Treatment Upcoming Encounters Date Type Department Care Team (Late st Contact Info) Description 06/10/2025 11:30 AM EDT Clinical Support [facility] MEDICINE [address] [place] [address] 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 RN documented as of this encounter Visit Diagnoses Not on filedocumented in this encounter Additional Health Concerns Assessment Noted Time PHQ-9 Depression Total Score: 1 05/09/20 25 11:18 AM EDT documented as of this encounter Care Teams Revising Clerk Relationship Specialty Start Date End Date Brenna Liriano MD [address] [place] [address] [place] [address] PCP - General Family Medicine 07/01/19 [facility] 06/26/24 documented as of this encounter
--- OUTSIDE RECORDS SUMMARY | 2025-04-23 21:05 | XMS_ITS | Encounter Summary ---
Author Organization [employer] Address [address] [facility] 7t [place] [address] Care Team Providers Care Economic Development Director Name Role Phone Brenna Liriano MD Primary Care Provide r Reason for Visit * Reason Comments Med Refill Encounter Details Date Type Department Care Team ([facility] st Contact Info) Description 12/18/2023 Refill [facility] MEDICINE 230 [place], [place] [phone] Brenna Liriano MD 230 [place] [address] Social History Tobacco Use Types Packs/Day Years [...] Description 06/10/2025 11:30 AM EDT Clinical Support [facility] MEDICINE [address] [place] [address] 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 RN documented as of this encounter Visit Diagnoses Not on filedocumented in this encounter Care Teams Economic Development Director Relationship Specialty Start Date End Date Brenna Liriano MD 230 [place] [address] PCP - General Family Medicine 07/01/19 [facility] 06/26/24 documented as of this encounter
--- OUTSIDE RECORDS SUMMARY | 2025-04-23 21:05 | XMS_ITS | Clinical Summary ---
Author Organization [facility] Address [address] [place] [address] Phone Care Team Providers Care Farm Truck Driver Name Role Phone Andrez Liriano MD Primary [...] 02/03/2019 COPD (chronic obstructive pu lmonary disease) ([facility] V24, [facility] V28) 02/03/2019 Depression with anxiety 02/03/2019 Overview (07/02/2024): Admission to [facility] 10/24/2018 for crisis and depression. HTN (hypertension) 02/03/2019 Microalbuminuria 02/03/2019 Obesity 02/03/2019 Onychomycosis 02/03/2019 Osteoarthritis 02/03/2019 Overview (07/02/2024): Knees, bilaterally. Schizoaffective disorder ([facility] V24, [facility] V 28) 02/03/2019 Type 2 diabetes mellitus wit h renal manifestations ([facility] V24, [facility] V28) 02/03/2019 Medical History Medical History Date Comments Depression with anxiety 02/03/2019 DX:Depre ssion with anxiety; COMMENT: Admission to [facility] 10/24/2018 for crisis and depression. Asthma 02/03/2019 DX:Asthma Onychomycosis 02/03/2019 DX:Onychomycosis Osteoarthritis 02/03/2019 DX:Osteoarthriti s; COMMENT: knees, bilaterally. HTN (hypertension) 02/03/2019 DX:HTN (hyper tension) COPD (chronic obstructive pu lmonary disease) ([facility] V24, [facility] V28) 02/03/2019 DX:COPD (chronic o bstructive pulmonary disease) ([facility]) Schizoaffective disorder ([facility] S/HCC V24, [facility] V28) 02/03/2019 DX:Schizoaffective disorder (HCC) Microalbuminuria 02/03/2019 DX:Microalbumin uria Type 2 diabetes mellitus wit h renal manifestations ([facility] V24, [facility] V28) 02/03/2019 DX:Type 2 diabetes mellitus with renal manifestations ([facility]) Tobacco use 02/03/2019 DX:Tobacco use Chronic [...] Care Team (Late st Contact Info) Description 05/13/2025 10:45 AM EDT Office Visit Orthopedic [facility] - [place] [address] [phone] Carmelo Craig DPM [address] [phone] Health Maintenance Due Date Last Done Comments [...] 03/18/2024 Social Influencers of Health Screening 03/18/2024 Depression Screening 08/20/2024 Diabetes: Blood Sugar Control Test (HGBA1C) 01/12/2025 07/15/2024 COVID-19 Vaccine ( season) 2025 01/30/2022, 01/26/2021, 12/23/2020 Influenza Vaccine (#1) 2025 , 06/21/2022, 07/11/2021, [...] topic Insurance MEDICAID - [place] Care Teams Farm Truck Driver Relationship Specialty Start Date End Date Andrez Liriano MD [address] [place] [phone] PCP - General 08/30/23
--- OUTSIDE RECORDS SUMMARY | 2025-04-23 21:05 | XMS_ITS | Encounter Summary ---
Author Organization [employer] Address [address] [facility] 7t [place] [address] Care Team Providers Care Chemical Analyst Name Role Phone Brenna Liriano MD Primary Care Provide r Reason for Visit * Reason Comments Med Refill Encounter Details Date Type Department Care Team ([facility] st Contact Info) Description 06/12/2023 Refill [facility] MEDICINE 230 [place], [place] [phone] Brenna Liriano MD 230 [place] [address] Constipation, unspecified constipation type Social History Tobacco [...] Description 06/10/2025 11:30 AM EDT Clinical Support [facility] MEDICINE [address] [place] [address] 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 RN documented as of this encounter Visit Diagnoses Diagnosis Constipation, unspecified constipation type documented in this encounter Care Teams Chemical Analyst Relationship Specialty Start Date End Date Brenna Liriano MD 230 [place] [address] PCP - General Family Medicine 07/01/19 [facility] 06/26/24 documented as of this encounter
--- OUTSIDE RECORDS SUMMARY | 2025-04-23 21:05 | XMS_ITS | Encounter Summary ---
Author Organization [employer] Address [address] [place] [address] 7t [place] [address] Care Team Providers Care Engineering Documentation Specialist Name Role Phone Brenna Liriano MD Primary Care Provide r Reason for Visit * Reason Onset Date Comments Nurse Triage 11/10/2024 Encounter Details Date Type Department Care Team ([facility] st Contact Info) Description 11/10/2024 Telephone [facility] MEDICINE 230 [place], [place] [phone] Brenna Liriano MD [address] [place], [place] [phone] Nurse Triage Social History Tobacco Use Types [...] 11/10/2024 4:06 PM EDT Triage call with [facility] [place] [id number]. Pt called regarding constipation. Pt reports last [...] higher acuity questions Please contact pt at [phone]. (Armenian Speaking) documented in this encounter Plan of Treatment Upcoming Encounters Date Type Department Care Team ([facility] st Contact Info) Description 06/10/2025 11:30 AM EDT Clinical Support [facility] MEDICINE [address] [place] [address] 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, GUILLE documented as of this encounter Visit Diagnoses Not on filedocumented in this encounter Care Teams Engineering Documentation Specialist Relationship Specialty Start Date End Date Brenna Liriano MD 230 [place] [address] PCP - General Family Medicine 07/01/19 [facility] 06/26[facility] documented as of this encounter
--- OUTSIDE RECORDS SUMMARY | 2025-04-23 21:05 | XMS_ITS | Encounter Summary ---
Author Organization [employer] Address [address] [place] [address] 7t [place] [address] Care Team Providers Care Technology Coach Name Role Phone Brenna Liriano MD Primary Care Provide r Reason for Visit * Reason Comments Med Refill Encounter Details Date Type Department Care Team ([facility] st Contact Info) Description 03/11/2024 Refill [facility] MEDICINE 230 [place], [place] [phone] Brenna Liriano MD [address] [place] [address] Asthma, unspecified asthma severity, unspecified whether complicated, [...] Description 06/10/2025 11:30 AM EDT Clinical Support [facility] MEDICINE 230 [place] [address] 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 RN documented as of this encounter Visit Diagnoses Diagnosis Asthma, unspecified asthma severity, unspecified whether complicated, unspecified whether persistent documented in this encounter Care Teams Technology Coach Relationship Specialty Start Date End Date Brenna Liriano MD [address] [place] [address] PCP - General Family Medicine 07/01/19 [facility] 06/26/24 documented as of this encounter
--- OUTSIDE RECORDS SUMMARY | 2025-04-23 21:05 | XMS_ITS | Encounter Summary ---
Author Organization [employer] Address [address] [place] [address] 7 [place] [address] Care Team Providers Care Manager Flight Name Role Phone Brenna Liriano MD Primary Care Provide r Reason for Visit * Reason Onset Date Comments Hospital Follow-up 06/25/2024 Encounter Details Date Type Department Care Team ([facility] st Contact Info) Description 06/25/2024 Telephone [facility] MEDICINE 230 [place], [place] [phone] Brenna Liriano MD 230 [place], [place] [phone] Hospital Follow-up Social History Tobacco Use Types [...] from pt requesting a HDF appt. Hospital: [facility] Date of admission: Asthma Discharge date: 06/18/24 Diagnosed: 06/24/24 *Send message to [place] Clinical Care Coordinators documented in this encounter Plan of Treatment Upcoming Encounters Date Type Department Care Team (Late st Contact Info) Description 06/10/2025 11:30 AM EDT Clinical Support [facility] MEDICINE 230 [place] [address] 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 RN documented as of this encounter Visit Diagnoses Not on filedocumented in this encounter Care Teams Manager Flight Relationship Specialty Start Date End Date Brenna Liriano MD 230 [place] [address] PCP - General Family Medicine 07/01/19 [facility] 06/26/24 documented as of this encounter
--- OUTSIDE RECORDS SUMMARY | 2025-04-23 21:05 | XMS_ITS | Encounter Summary ---
Author Organization [employer] [facility] Address [address] [place] [address] Care Team Providers Care Log Chipper Name Role Phone Brenna Liriano MD Primary Care Provide r Encounter Details Date Type Department Care Team (Late Contact Info) Description 08/10/2022 Abstract [facility] [address] [place] [address] Brenna Liriano MD [address] [place] [address] Social History Tobacco Use Types Packs/Day Years [...] Description 06/10/2025 11:30 AM EDT Clinical Support [facility] MEDICINE [address] [place] [address] 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 RN documented as of this encounter Visit Diagnoses Not on filedocumented in this encounter Care Teams Log Chipper Relationship Specialty Start Date End Date Brenna Liriano MD [address] [place] [address] PCP - General Family Medicine 07/01/19 [facility] 06/26/24 documented as of this encounter
--- OUTSIDE RECORDS SUMMARY | 2025-04-23 21:05 | XMS_ITS | Encounter Summary ---
Author Organization [employer] Address [address] [facility] 7t [place] [address] Care Team Providers Care Community Health Coordinator Name Role Phone Brenna Liriano MD Primary Care Provide r Reason for Visit * Reason Comments Med Refill Encounter Details Date Type Department Care Team ([facility] st Contact Info) Description 09/14/2023 Refill [facility] MEDICINE 230 [place], [place] [phone] Brenna Liriano MD 230 [place], [place] [phone] Constipation, unspecified constipation type Social History Tobacco [...] Description 06/10/2025 11:30 AM EDT Clinical Support [facility] MEDICINE [address] [place] [address] 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 RN documented as of this encounter Visit Diagnoses Diagnosis Constipation, unspecified constipation type documented in this encounter Care Teams Community Health Coordinator Relationship Specialty Start Date End Date Brenna Liriano MD [address] [place] [address] PCP - General Family Medicine 07/01/19 [facility] 06/26/24 documented as of this encounter
--- OUTSIDE RECORDS SUMMARY | 2025-04-23 21:05 | XMS_ITS | Clinical Summary ---
Author Organization [employer] Address [address] [place] [address] 7 [place] [address] Care Team Providers Care Oak Tanner Name Role Phone Brenna Liriano MD Primary [...] in the evening, and at bedtime. Active albuterol (2.5 MG/3ML) 0.083% nebulizer solution Take 3 mL (2.5 mg) by nebulization every 6 (six) hours if needed for wheezing. USE 1 VIAL VIA NEBULIZER EVERY 4 HOURS NEEDED FOR WHEEZING OR SHORTNESS OF BREATH 90 mL 1 024 Active naloxone (Narcan) 4 mg/0.1 mL nasal sprayIndication s:Chronic bilateral low back pain without sciatica Administer 1 spray (4 mg) into affected nostril(s) if needed for opioid reversal. May repeat every 2-3 minutes if needed, alternating nostrils, until medical assistance becomes available. 2 each 2025 Active ferrous sulfate (Fe Tabs) 325 (65 Fe) MG EC tablet Take 1 tablet (325 mg) by mouth every other day. Do not crush, chew, or split. 15 tablet 2025 Active Blood Pressure Monitoring (Blood Pressure Cuff) miscIndications :Essential hypertension 1 each in the morning. 1 each Active lisinopril 10 MG tablet TAKE 1 TABLET BY MOUTH DAILY 30 tablet Active montelukast (Singulair) 10 MG tabletIndicatio ns:Uncomplicate d asthma, unspecified asthma severity, unspecified whether persistent TAKE 1 TABLET BY MOUTH DAILY IN THE MORNING 30 tablet 025 Active omeprazole (PriLOSEC) [address] capsuleIndicati ons:Gastroesoph ageal reflux disease, unspecified whether esophagitis present TAKE 1 CAPSULE BY MOUTH TWICE DAILY BEFORE A MEAL 60 capsule 025 Active senna (Senokot) 8.6 MG tabletIndicatio ns:Constipation , unspecified constipation type TAKE 2 TABLETS BY MOUTH EVERY DAY AT BEDTIME NEEDED FOR CONSTIPATION 60 tablet 025 Active loratadine (Claritin) 10 MG tablet TAKE 1 TABLET BY MOUTH EVERY MORNING 30 tablet 025 Active docusate sodium (Colace) 100 MG capsule TAKE 1 CAPSULE BY MOUTH TWICE DAILY IN THE MORNING AND AT BEDTIME NEEDED 60 capsule 5 025 Active polyethylene glycol, PEG, 3350 (HealthyLax) 17 g packet MIX 1 PACKET WITH 8 OUNCES OF WATER OR JUICE AND DRINK BY MOUTH THREE TIMES DAILY NEEDED 90 packet 2 025 Active lactulose (Chronulac) 10 GM/15ML solutionIndicat ions:Chronic constipation TAKE 45 ML BY MOUTH EVERY DAY IN THE MORNING DIRECTED 473 mL 1 025 Active sucralfate (Carafate) 1 g tablet TAKE 1 TABLET BY MOUTH THREE TIMES DAILY IN THE MORNING, AT NOON, AND AT BEDTIME 90 tablet 025 Active albuterol (Ventolin HFA) 108 (90 Base) MCG/ACT inhalerIndicati ons:Asthma, unspecified asthma severity, unspecified whether complicated, unspecified whether persistent INHALE 2 PUFFS BY MOUTH EVERY 4 TO 6 HOURS NEEDED 18 g 2 025 Active traMADol (Ultram) 50 MG tabletIndicatio ns:Chronic bilateral low back pain without sciatica TAKE 1 TABLET BY MOUTH EVERY TWELVE HOURS NEEDED FOR SEVERE PAIN 56 tablet 025 2024 Active metFORMIN XR (Glucophage-XR) 500 MG 24 hr tablet TAKE 1 TABLET BY MOUTH TWICE DAILY IN THE MORNING AND AT BEDTIME WITH MEALS 90 tablet 1 025 Active atorvastatin (Lipitor) 40 MG tabletIndicatio ns:Essential hypertension TAKE 1 TABLET BY MOUTH AT BEDTIME 90 tablet 1 025 Active atorvastatin (Lipitor) 40 MG tabletIndicatio ns:Essential hypertension TAKE 1 TABLET BY MOUTH IN THE MORNING 90 tablet 1 025 2024 Discontinued albuterol (Ventolin HFA) 108 (90 Base) MCG/ACT inhalerIndicati ons:Asthma, unspecified asthma severity, unspecified whether complicated, unspecified whether persistent INHALE 2 PUFFS BY MOUTH INTO THE lungs EVERY 4 TO 6 HOURS NEEDED 18 g 2 025 2024 Discontinued(R eorder (will not trigger notification to Pharmacy)) metFORMIN XR (Glucophage-XR) 500 MG 24 hr tablet TAKE 1 TABLET BY MOUTH TWICE DAILY IN THE MORNING AND AT BEDTIME WITH MEALS 30 tablet 5 025 2024 Discontinued sucralfate (Carafate) 1 g tablet TAKE 1 TABLET BY MOUTH THREE TIMES DAILY IN THE MORNING, AT NOON, AND AT BEDTIME 90 tablet 025 2024 Discontinued traMADol (Ultram) 50 MG tabletIndicatio ns:Chronic bilateral low back pain without sciatica TAKE 1 TABLET BY MOUTH EVERY TWELVE HOURS NEEDED FOR SEVERE PAIN 56 tablet 025 2024 Discontinued Active Problems Problem Noted Date Diagnosed Date Long-term current use of opiate analgesic 2024 Chronic bilateral low back pain without sciatica [...] Q 12hrs Patient will be contacted by [employer] nurse Tobacco dependence syndrome 06/04/2015 Microalbuminuria 06/23/2014 [...] emergency department for further evaluation, case presented [facility], patient will go by ambulance Acute upper respiratory infection 11/02/2022 02/16/2023 Mild intermittent asthma 04/02/2018 Obesity (BMI 30-39.9) 04/02/20182022 Schizoaffective disorder, bipolar type 03/13/2017 02/16/2023 Primary osteoarthritis of left knee 01/30/2017 02/16/2023 Encounters Date Type Department Care Team Description 04/21/2025 Patient Outreach [facility] [address] [place] [address] Brenna Liriano MD Care Management (C3CM- F/U call # 1) 04/16/2025 Refill [facility] [address] [place] [address] Brenna Liriano MD Essential hypertension 04/14/2025 Refill [facility] [address] [place] [address] Brenna Liriano MD Chronic bilateral low back pain without sciatica 04/09/2025 Refill [facility] [address] [place] [address] Brenna Liriano MD Asthma, unspecified asthma severity, unspecified whether complicated, unspecified whether persistent 04/09/2025 Refill [facility] [address] [place] [address] Donny Gallegos MD Asthma, unspecified asthma severity, unspecified whether complicated, unspecified whether persistent 03/24/2025 Refill [facility] [address] [place] [address] Brenna Liriano MD Chronic bilateral low back pain without sciatica 03/20/2025 Patient Outreach [address] [address] Brenna Liriano MD Care Coordination (C3 CM-CHW Zenobia Baker telephone call outreach) 03/17/[address] [address] Brenna Liriano MD 03/16/2025 11:30 AM EDT Clinical Support [address] [address] 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, GUILLE Long-term current use of opiate analgesic (Primary Dx) 03/16/[address] [address] 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, GUILLE Abnormal UTOX; BPI Scoring 03/16/2025 Travel 03/09/[address] [address] Brenna Liriano MD Chronic constipation 03/04/2025 Patient Outreach [address] [address] Brenna Liriano MD Care Management (C3- F/U call # 1 (2nd attempt)) 02/25/[address] [address] Nikki Akhtar NP Results 02/25/[address] [address] Nikki Akhtar NP Error (VOID this visit) 02/25/2025 Results Follow-Up [address] [address] Nikki Akhtar NP Urinalysis, Complete, with Reflex to Culture, Culture, Urine, Routine 02/23/2025 10:00 AM EDT Office Visit [facility] [address] [place] [phone] Nikki Akhtar NP UTI symptoms (Primary Dx); Other microscopic hematuria; Elevated blood pressure reading in office with diagnosis of hypertension 02/23/2025 Orders Only [address] [phone] Nikki Akhtar NP 02/23/2025 Travel 02/18/2025 Refill [facility] [address] [place] [address] Brenna Liriano MD 02/17/2025 Refill [facility] [address] [place] [phone] 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 RN Chronic bilateral low back pain without sciatica 02/11/2025 Patient Outreach [facility] [address] [place] [address] Brenna Liriano MD Care Coordination 02/10/2025 Orders Only GENERIC EXTERNAL DATA DEPARTMENT Provider, Generic External Data 02/05/2025 Refill [facility] [address] [place] [phone] Brenna Liriano MD 02/03/2025 Patient Outreach [facility] [address] [place] [phone] Brenna Liriano MD Care Management ([facility]- Follow up call # 1) 01/23/2025 Patient Outreach [facility] [address] [place] [phone] Brenna Liriano MD Care Coordination 01/23/2025 Refill [facility] [address] [place] [phone] Brenna Liriano MD 01/22/2025 Refill [facility] [address] [place] [phone] Brenna Liriano MD Uncomplicated asthma, unspecified asthma severity, unspecified whether persistent; Gastroesophageal reflux disease, unspecified whether esophagitis present; Constipation, unspecified constipation type 01/21/2025 Telephone [facility] [address] [place] [phone] Brenna Liriano MD Med Refill from Last 3 Months Immunizations Immunization Administration Dates Next Due Hep B, adult [...] Sign Reading Time Taken Comments Blood Pressure 136/72 02/23/2025 11:07 AM EDT Pulse 100 02/23/2025 10:41 AM EDT Temperature 36.8 C (98.2 F) 02/23/2025 10:41 AM EDT Respiratory Rate 18 02/23/2025 10:41 AM EDT Oxygen Saturation 96% 02/23/2025 10:41 AM EDT Inhaled Oxygen Concentration - - Weight 85.3 kg (188 lb) 02/23/2025 10:41 AM EDT Height 157.5 cm (5' 2 ) 11/17/2024 10:35 AM EDT Body Mass Index 34.39 11/17/2024 10:35 AM EDT Plan of Treatment Upcoming Encounters Date Type Department Care Team (Late st Contact Info) Description 06/10/2025 11:30 AM EDT Clinical Support [facility] [address] [place] [phone] 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, RN Health Maintenance Due Date Last Done Comments CT Colonography 1965 FIT DNA/Cologuard 1965 FIT 1965 FOBT 1965 HIV Screening 1965 Sigmoidoscopy 1965 Disability Screening 1965 Diabetes: Foot Exam 1975 Eye Exam 1975 Hepatitis C Screening 1983 Diabetes: Urine Protein Screening 1984 Pap Smear 1986 Zoster Vaccines (1 of 2) 2015 Cervical Cancer Screening 03/21/2022 HPV/Cotest 03/21/2022 03/21/2017 Diabetes: Hemoglobin A1C 01/12/2025 024, 10/09/2023, 12/12/2022 COVID-19 Vaccine ( season) 2025 01/30/2022, 01/26/2021, 12/23/2020 Influenza Vaccine (#1) 2025 3, 06/21/2022, 07/11/2021, Additional history exists Mammogram 05/01/2025 05/01/2024, 0912/2022, 04/14/2022, Additional history exists Lipid Panel 11/04/2025 11/04/2024, 08/08/2023 Alcohol/Substance Use Screening 12/26/2025 12/26/2024 Depression Screening 12/26/2025 12/26/2024, 12/27/19 25 SDOH Screening 01/01/2026 01/01/2025 Tobacco Screening 02/23/2026 02/23/2025 Colonoscopy 04/02/2029 04/02/2024 Colorectal Cancer Screening 04/02/2029 [...] Comments POCT BANG-14 URINE DRUG SCREEN Routine 03/16/2025 11:49 AM EDT Long-term current use of opiate analgesic METHADONE SCREEN, URINE Routine 03/16/2025 11:30 AM EDT Long-term current use of opiate analgesic POCT URINALYSIS DIPSTICK Routine 02/23/2025 10:43 AM EDT UTI symptoms URINALYSIS, COMPLETE, WITH REFLEX TO CULTURE Routine 02/23/2025 12:00 AM EDT CULTURE, URINE, ROUTINE Routine 02/23/2025 12:00 AM EDT CBC WITH AUTO DIFFERENTIAL Routine 02/10/2025 3:00 PM EDT LIPID PANEL, STANDARD Routine 11/04/2024 8:58 AM EDT POCT GLYCATED HEMOGLOBIN, TOTAL Routine 07/15/2024 1:36 PM EST Type 2 diabetes mellitus with hyperglycemia, without long-term current use of insulin ([facility]) BI MAMMOGRAM SCREENING TOMOSYNTHESIS BILATERAL Routine 05/01/2024 3:00 PM EDT HM COLONOSCOPY Routine 04/02/2024 9:55 AM EDT ZZZ HISTORICAL HPV MRNA E6/E7 Routine 03/21/2017 12:00 AM EDT from Last 3 Months or Most Recently Relevant to Health Maintenance Results * (ABNORMAL) POCT BANG-14 Urine Drug Screen (03/16/2025 11:49 AM EDT) THC Negative Negative Cocaine Screen, Urine Negative Negative Opiate Screen, Urine Negative Negative Methamphetamine Screen Urine Negative Negative Amphetamine Screen, Urine Negative Negative Benzodiazepines Screen, Urine Negative Negative Barbiturate Screen, Urine Negative Negative Methadone Screen, Urine Positive(A) Negative Buprenophine Screen, Urine Negative Negative TCA, Urine Negative Negative MDMA Urine Negative Negative ng/mL Oxycodone Screen, Urine Negative Negative Phencyclidine (PCP), Urine Negative Negative Propoxyphene, Urine Negative Negative Fentanyl, Urine Negative Negative Urine Urine specimen obtained by clean catch procedure / Unknown 03/16/2025 11:49 AM EDT Narrative 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 RN - 03/16/2025 11:49 AM EDT UTOX cup Lot#[id number] Exp. 05/26/26 Internal Pass Control Brenna Brower MD POINT OF CARE TEST EN TER/EDIT ORDERABLES Final Result * Drug Monitoring, Methadone Metabolite, Screen, Urine (03/16/2025 11:30 AM EDT) Pathologist [facility] Methadone Screen, Urine Not Detected Not Detect ng/mL [facility] Comment:Methadone cut-off is 300 ng/mL.Positive results are unconfirmed and should not be used fornon-medical purposes. Urine (Urine, Random) 03/16/2025 11:30 AM EDT 03/16/2025 1:37 PM EDT Brenna Brower MD LAB URINE ORDERABLES Final Result [facility] [address] [place] [phone] * (ABNORMAL) POCT urinalysis dipstick manually resulted (02/23/2025 10:43 AM EDT) Pathologist [facility] Color, UA Yellow Comment:Dark Clarity, UA Cloudy Glucose, UA Negative Bilirubin, UA Negative Ketones, UA Positive Comment:15Mg Spec Grav, UA 1.025 Blood, UA Positive(A) Negative, None Detected Comment:Large pH, UA 6.0 Protein, UA 1+ 70+ Comment:30Mg Urobilinogen, UA 1.0 Leukocytes, UA Moderate(A) Negative, Rare, Trace Nitrite, UA Negative Negative, None Detected Appearance, UA OK Urine 02/23/2025 10:4 3 AM EDT Result [facility] Nikki Akhtar NP POINT OF CARE TEST ENTER/EDIT O RDERABLES Final Result * (ABNORMAL) Urinalysis, Complete, with Reflex to Culture (02/23/2025 12:00 AM EDT) Color Urine Yellow [facility] Appearance Urine Cloudy [facility] PH 6.0 5.0 - 9.0 [facility] Glucose Urine UA Negative Negative mg/dL [facility] Urine Blood Large (3+)(A) Negative [facility] Specific [place] - Urine 1.020 1.005 - 1.025 [facility] Urine Protein 30 (1+)(A) Neg-Trace mg/dL [facility] Urine Ketones 15 Negative mg/dL [facility] Nitrite Urine Negative Negative [facility] Leukocyte Esterase Urine Large (3+)(A) Negative [facility] RBC Urine >20(A) 0 - 2 /HPF [facility] Urine WBC >50(A) 0 - 5 /HPF [facility] Urine Squamous Epithelial Cell 0-2 0 - 2 /HPF [facility] Urine Bacteria Trace None Seen [facility] Hyaline Casts, Urine 0-2 0 - 2 /LPF [facility] 02/23/2025 02/23/2025 [facility] - 02/23/2025 6:42 PM EDT Urine, Clean Catch Nikki Cali [employer] PERFORMAN[employer]IST LAB URINE ORDERABLES Final Resu lt [facility] [address] [place] [phone] * Culture, Urine, Routine (02/23/2025 12:00 AM EDT) Urine Urine specimen obtained by clean catch procedure / Unknown 02/23/2025 02/23/2025 Comment:[facility] - 02/26/2025 7:53 AM EDT Escherichia coli ESBL Note: NOTE: Extended-Spectrum Beta-Lactamase enzyme present Quant > 100,000 cfu/mL Escherichia coli: Ampicillin >=32(R) Escherichia coli: Cefazolin (Urine) >=32(R) Escherichia coli: Cefepime >=32(R) Escherichia coli: Ceftriaxone >=64(R) Escherichia coli: Ciprofloxacin >=4(R) Escherichia coli: Ertapenem <=0.12(S) Escherichia coli: Gentamicin >=16(R) Escherichia coli: Nitrofurantoin <=16(S) Escherichia coli: Trimethoprim/Sulfamethoxazole >=320(R) Specimen Source: Urine clean catch Nikki Akhtar RET[employer] PERFORMAN[employer] SPECIALIST LAB MICROBIOLOGY - GENERAL DEBI CARBAJAL Final Result [facility] [address] [place] [phone] * (ABNORMAL) CBC auto differential (02/10/2025 3:00 PM EDT) White Blood Count 8.9 4.8 - 10.8 X10*3/uL [facility] Red Blood Count 3.64(L) 4.20 - 5.50 X10*6/uL [facility] Hemoglobin 8.5(L) 12.0 - 16.0 g/dl [facility] Hematocrit 28.2(L) 37.0 - 47.0 % [facility] Mean Corpuscular Volume 77.5(L) 80.0 - 98.0 fL [facility] Mean Corpuscular Hemoglobin 23.4(L) 27.0 - 33.0 pg [facility] Mean Corpuscular HGB Conc 30.1(L) 31.0 - 35.0 g/dl [facility] Red Cell Distribution Width 18.2(H) 11.0 - 16.0 % [facility] Platelet Count 372 160 - 400 X10*3/uL [facility] Mean Platelet Volume 11.1 9.4 - 12.3 fL [facility] Neutrophils Percent Auto 54.3 45 - 73 % [facility] Imm Gran Pct Auto 0.6(H) 0.0 - 0.4 % [facility] Lymphocytes Percent Auto 34.3 20 - 40 % [facility] Monocytes Percent Auto 8.9 2 - 11 % [facility] Eosinophils Percent Auto 1.6 0 - 4 % [facility] Basophils Percent Auto 0.3 0 - 2 % [facility] NRBC Pct Auto 0.0 0.0 - 0.2 /100WBC [facility] Neutrophils Absolute Auto 4.9 2.0 - 8.3 x10*3/uL [facility] Imm Gran Abs Auto 0.05(H) 0.00 - 0.03 X10*3/uL [facility] Lymphocytes Absolute Auto 3.1 1.2 - 4.9 X10*3/uL [facility] Monocytes Absolute Auto 0.8 0.1 - 1.2 X10*3/uL [facility] Eosinophils Absolute Auto 0.1 0.0 - 0.4 X10*3/uL [facility] Basophils Absolute Auto 0.0 0.0 - 0.2 X10*3/uL [facility] NRBC Abs Auto 0.000 0.0 - 0.012 X10*3/uL [facility] 02/10/2025 3:00 PM EDT 02/10/2025 3:00 PM EDT us Generic External Data Provider LAB BLOOD ORDERAB LES Final Result Performing Organization Address City/State/[facility] Co de Phone Number [facility] [address] [place] [phone] * Lipid Panel, Standard (11/04/2024 8:58 AM EDT) Triglycerides 57 <150 mg/dL [facility] Comment:Desirable Triglyceri de: less than 150 mg/dLBorderline High Triglyceride 150-199 mg/dLHigh Triglyceride: 200-499 mg/dLVery High Triglyceride: greater than or equal to 5OO mg/dL Cholesterol 115 <200 mg/dL [facility] Comment:Desirable Cholestero l: less than 200 mg/dLBorderline High Cholesterol: 200-239 mg/dLHigh Cholesterol: greater than 239 mg/dL LDL Cholesterol Calculated 63 <100 mg/dL [facility] Comment:Desirable LDL: less than 100 mg/dLNear Optimal/Above Optimal LDL: 110- 129 mg/dLBorderline High LDL: 130-159 mg/dLHigh LDL: 160-189 mg/dLVery High LDL: greater than or equal to 190 mg/dL HDL Cholesterol 41 >40 mg/dL [facility] Comment:Desirable HDL: great er than 40 mg/dL Note: This HDL assay may give artificially low results in patients with liver disease. 11/04/2024 8:58 AM EDT 11/04/2024 9:06 AM EDT us Brenna Brower MD LAB BLOOD ORDERABLES Final Result [facility] [address] [place] [phone] [phone] * (ABNORMAL) POCT HGB A1C (07/15/2024 1:36 PM EST) Hemoglobin A1C 6.0 4.0 - 6.0 % QC Media Lot # [id number] Lot# Expiration Date 422, Blood 07/15/2024 1:36 PM EST us Brenna Brower MD POINT OF CARE TEST EN TER/EDIT ORDERABLES Final Result * BI Mammogram Screening Tomosynthesis Bilateral (05/01/2024 3:00 PM EDT) Anatomical Region Laterality Modality Breast Bilateral Mammography 05/01/2024 3:00 PM EDT Narrative 05/15/2024 8:10 PM EDT [facility] [address] [place] [phone] Mammography Report Signed Patient: Brenna Hope MR# : [id number] : 1965 Acct:[id number] Age/Sex: 58 / F ADM Date: 05/01/24 Loc: HO.MAMMO Attending Dr: Brenna Brower MD Ordering Physician: Brenna Liriano MD Results: 2Benign Findings Date of Service: 05/01/24 Follow Up: 1 Year From Orig inal Mammogram Procedure(s): MM tomosynthesis screening BI Accession Number(s): [id number] cc: Brenna Liriano MD EXAMINATION: MM SCREENING [...] OV> 05/15/242006 DD/ 1500 TD/TT: 05/01/24 1521 Sales Service Manager: Procedure Note Donotuseinterpreter, Image - 05/15/2024 [facility] [address] [place] [address] Mammography Report Signed Patient: Brenna Hope DMR# : [id number] : 1965Acct:[id number] Age/Sex: 58 / FADM Date: 05/01/24 Loc: JUAN JOSÉ Attending Dr: Brenna Brower MD Ordering Physician: Brenna Liriano MDResults: 2Benign Findings Date of Service: 05/01/24Follow Up: 1 Year From Orig inal Mammogram Procedure(s): MM tomosynthesis screening BI Accession Number(s): [id number] cc: Brenna Liriano MD EXAMINATION: MM SCREENING [...] OV> 05/15/242006 DD/ 1500 TD/TT: 05/01/24 1521 Sales Service Manager: Brenna Brower MD IMG BI PROCEDURES Joe [email or web address] Result - Final * Hm Colonoscopy (04/02/2024 9:55 AM EDT) Colonoscopy Normal Normal Narrative Jacqueline Valiente - 04/02/2024 9:55 AM EDT Repeat Colonoscopy in 5 years or earlier if clinically indicated see the external hospital admission note on 04/02/2024 Historical Provider HEALTH MAINTENANCE Edited Result - Final * HPV mRNA E6/E7 (03/21/2017 12:00 AM EDT) HPV mRNA E6/E7 Not Detected NOT DETECTED [facility] Comment: This test was performed using the APTIMA(R) HPV Assay ([employer] This assay detects E6/E7 viral messenger RNA (mRNA) from 14 high-risk HPV types (16,18,31,33,35,39,45,51, 52,56,58,59,66,68). For additional information please refer to: http://TYFFON.[employer]/faq/VJE500g2 (This link is being provided for informational/ educational purposes only.) Test Performed by [employer] [place], [employer] [facility], [address] [place] [address] Eliseo Sierra M.D., Ph.D., Director of Laboratories , [place] [id number] Please note: Effective 05/01/2016, HPV testing will be performed using [employer] [facility]'s APTIMA test which targets mRNA. Detecting mRNA instead of DNA, as in older methods, offers significant improvements in specificity. 03/21/2017 Indira Estrada CNM HISTORICAL/NON ORDERABLE LABS Final Result [facility] Anywhere [address] from Last 3 Months or Most Recently Relevant to Health Maintenance Insurance Care Teams [employer] Relationship Specialty Start Date End Date Brenna Liriano MD [address] [place] [phone] PCP - General [facility]
--- OUTSIDE RECORDS SUMMARY | 2025-04-23 21:05 | XMS_ITS | Encounter Summary ---
Author Organization [employer] Address [address] [place] [address] Care Team Providers Care Blood Bank Credit Clerk Name Role Phone Brenna Liriano MD Primary Care Provide r Reason for Visit * Reason Comments Med Refill Encounter Details Date Type Department Care Team ([facility] st Contact Info) Description 07/24/2023 Refill [facility] [address] [place], [place] [phone] Brenna Liriano MD [address] [place] [address] Social History Tobacco Use Types Packs/Day Years [...] Description 06/10/2025 11:30 AM EDT Clinical Support [facility] [address] [place] [phone] 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 RN documented as of this encounter Visit Diagnoses Not on filedocumented in this encounter Care Teams Blood Bank Credit Clerk Relationship Specialty Start Date End Date Brenna Liriano MD [address] [place] [address] PCP - General Family Medicine 07/01/19 [facility] 06/26/24 documented as of this encounter
--- OUTSIDE RECORDS SUMMARY | 2025-04-23 21:05 | XMS_ITS | Encounter Summary ---
Author Organization [employer] Address [address] [place] [address] 7 [place] [address] Care Team Providers Care Cardiopulmonary Technologist Name Role Phone Brenna Liriano MD Primary Care Provide r Reason for Visit * Reason Onset Date Comments Med Refill 10/07/2024 Encounter Details Date Type Department Care Team ([facility] st Contact Info) Description 10/07/2024 Telephone [facility] MED[facility]INE [address] [place], [place] [phone] Brenna Liriano MD [address] [place], [place] [phone] Med Refill Social History Tobacco Use Types [...] from PCP today, no tramadol refill until SCREEN PRINTER HELPER initial visit completed. Spoke with patient today and pt Is scheduled for 10/09/24. * Telephone Encounter - Melchor Ortega - 10/07/2024 3:05 PM EST TC from pt requesting medication refill. Medications needing refill : traMADol (Ultram) 50 MG tablet To be sent to: [facility] - [place], [place] - [phone] - [place] - [address] documented in this encounter Plan of Treatment Upcoming Encounters Date Type Department Care Team (Late st Contact Info) Description 06/10/2025 11:30 AM EDT Clinical Support [facility] MED[facility]INE [address] [place] [address] 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, RN documented as of this encounter Visit Diagnoses Not on filedocumented in this encounter Care Teams Cardiopulmonary Technologist Relationship Specialty Start Date End Date Brenna Liriano MD [address] [place] [address] PCP - General Family Medicine [facility] documented as of this encounter
--- OUTSIDE RECORDS SUMMARY | 2025-04-23 21:05 | XMS_ITS | Encounter Summary ---
Author Organization [employer] Address [address] [place] [address] 7t [place] [address] Care Team Providers Care Therapeutic Riding Instructor Name Role Phone Brenna Liriano MD Primary Care Provide r Reason for Visit * Reason Onset Date Comments Appointment Request 10/31/2023 Encounter Details Date Type Department Care Team ([facility] st Contact Info) Description 10/31/2023 Telephone [facility] MEDICINE [address] [place], [place] [phone] Brenna Liriano MD [address] [place], [place] [phone] Appointment Request Social History Tobacco Use Types [...] PM EDT Tc from Veronica the patients milking worker calling to cancel the PAP appt on 11/06 and would like to reschedule documented in this encounter Plan of Treatment Upcoming Encounters Date Type Department Care Team (Late st Contact Info) Description 06/10/2025 11:30 AM EDT Clinical Support [facility] MEDICINE [address] [place] [address] 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 RN documented as of this encounter Visit Diagnoses Not on filedocumented in this encounter Care Teams Therapeutic Riding Instructor Relationship Specialty Start Date End Date Brenna Liriano MD [address] [place] [address] PCP - General Family Medicine 07/01/19 [facility] 06/26/24 documented as of this encounter
--- OUTSIDE RECORDS SUMMARY | 2025-04-23 21:05 | XMS_ITS | Encounter Summary ---
Author Organization [employer] [facility] Address [address] [place] [address] 7t [place] [address] Care Team Providers Care Orchid Worker Name Role Phone Brenna Liriano MD Primary Care Provide r Reason for Visit * Reason Comments Med Refill Encounter Details Date Type Department Care Team ([facility] [address] Contact Info) Description 10/23/2022 Refill [facility] MEDICINE [address] [place] [address] [phone] Hina Mccormack MD [address] [place] [address] [phone] Other chronic pain Social History Tobacco Use [...] Description 06/10/2025 11:30 AM EDT Clinical Support [facility] MEDICINE [address] [place] [phone] 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 RN documented as of this encounter Visit Diagnoses Diagnosis Other chronic pain documented in this encounter Care Teams Orchid Worker Relationship Specialty Start Date End Date Brenna Liriano MD [address] [place] [address] PCP - General Family Medicine 07/01/19 [facility] 06/26/24 documented as of this encounter
--- OUTSIDE RECORDS SUMMARY | 2025-04-23 21:05 | XMS_ITS | Encounter Summary ---
Author Organization [employer] Address [address] [facility] 7t [place] [address] Care Team Providers Care Care Director Name Role Phone Brenna Liriano MD Primary Care Provide r Encounter Details Date Type Department Care Team (Late st Contact Info) Description 11/18/2024 Orders Only [facility] [address] [place], [place] [phone] Provider, MD Ameya Social History Tobacco Use [...] 11:30 AM EDT Clinical Support [facility] MEDICINE [address] [place] [address] 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, GUILLE documented as of this encounter Procedures Procedure Name Priority Date/Time Associated Diagnosis Comments COLONOSCOPY Routine 04/02/2024 9:55 AM EDT documented in this encounter Results * Hm Colonoscopy (04/02/2024 9:55 AM EDT) Colonoscopy Normal Normal Narrative Jacqueline Valiente - 04/02/2024 9:55 AM EDT Repeat Colonoscopy in 5 years or earlier if clinically indicated see the external hospital admission note on 04/02/2024 Historical Provider [facility] Edited Result - Final documented in this encounter Visit Diagnoses Not on filedocumented in this encounter Care Teams Care Director Relationship Specialty Start Date End Date Brenna Liriano MD [address] [place] [address] PCP - General Family Medicine 07/01/19 [facility] 06/26/24 documented as of this encounter
[2025-04-23 21:07] LABS: Hematocrit 28.1 % (37.0-47.0); Hemoglobin 8.2 g/dl (12.0-16.0); Imm Gran Abs Auto 0.04 X10*3/uL (0.00-0.03); Imm Gran Pct Auto 0.4 % (0.0-0.4); Lymphocytes Absolute Auto 2.6 X10*3/uL (1.2-4.9); Mean Corpuscular HGB Conc 29.2 g/dl (31.0-35.0); Mean Corpuscular Hemoglobin 21.2 pg (27.0-33.0); Mean Corpuscular Volume 72.6 fL (80.0-98.0); NRBC Abs Auto 0.030 X10*3/uL (0.0-0.012); NRBC Pct Auto 0.3 /100WBC (0.0-0.2); Platelet Count 403 X10*3/uL (160-400); Red Blood Count 3.87 X10*6/uL (4.20-5.50); White Blood Count 9.8 X10*3/uL (4.8-10.8)
[2025-04-23 22:00] VITALS: BP 136/70; PULSE 99; RESP 16; TEMP 36.4; O2SAT 94
--- NOTE | 2025-04-23 22:30 | ED.ABDPAIN ---
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 She has not had a BM since yesterday. She has not passed flatus since yesterday. She has nausea but no vomiting. She did urinate and wiped and saw blood on toilet paper. No GIB or vaginal bleeding reported. She has not had fevers. MD elicited complaint: abdominal pain Pertinent past history: none Onset (ago): day(s) (yesterday) Pain Consistency: constant Location: diffuse Quality: aching and fullness Radiation: none Migration to: no migration Exacerbating factors: eating and movement Relieving factors: nothing Context: history of similar episodes Associated symptoms: nausea and constipation Related Data Home Medications ?Medication ?Instructions ?Recorded ?Confirmed sennosides 8.6 mg tablet (senna) 17.2 mg PO BEDTIME PRN constipation 12/13/22 03/24/25 albuterol sulfate 90 mcg/actuation 2 puff inhalation Q6H PRN 06/18/23 03/24/25 aerosol inhaler (Ventolin HFA) Shortness Of Breath Or Wheezing sucralfate 1 gram tablet 1 g PO TID 06/18/23 03/24/25 tramadol 50 mg tablet 50 mg PO DAILY PRN Severe Pain 06/18/23 03/24/25 (Scale Score 7-10) divalproex 500 mg tablet,extended 1,000 mg PO BEDTIME 10/01/23 03/24/25 release 24 hr clonazepam 0.5 mg tablet 0.5 mg PO DAILY 03/29/24 03/24/25 lisinopril 10 mg tablet 10 mg PO DAILY 03/29/24 03/24/25 atorvastatin 40 mg tablet 40 mg PO BEDTIME 06/18/24 03/24/25 omeprazole 20 mg capsule,delayed 20 mg PO BID@0630,1630 06/18/24 03/24/25 release capsaicin 0.025 % topical cream 1 appl topical DAILY PRN Minor 06/19/24 03/24/25 Aches and Pains clozapine 100 mg tablet 300 mg PO BEDTIME 06/19/24 03/24/25 clozapine 25 mg tablet 25 mg PO BEDTIME 06/19/24 03/24/25 divalproex 250 mg tablet,extended 250 mg PO BEDTIME 06/19/24 03/24/25 release 24 hr docusate sodium 100 mg capsule 100 mg PO BID PRN Constipation 06/19/24 03/24/25 fluticasone propionate 110 2 puff inhalation BID 06/19/24 03/24/25 mcg/actuation HFA aerosol inhaler loratadine 10 mg tablet 10 mg PO DAILY 06/19/24 03/24/25 magnesium hydroxide 400 mg/5 mL 5 ml PO DAILY PRN Constipation 06/19/24 03/24/25 oral suspension (Milk of Magnesia) polyethylene glycol 3350 17 gram 17 g PO DAILY Constipation 06/19/24 03/24/25 oral powder packet fluoxetine 20 mg capsule 20 mg PO QAM 07/21/24 03/24/25 lactulose 10 gram/15 mL oral 45 ml PO QAM 07/21/24 03/24/25 solution olanzapine 5 mg tablet 5 mg PO BEDTIME 07/21/24 03/24/25 Previous Rx's ?Medication ?Instructions ?Recorded clonazepam 1 mg tablet 1 mg PO BEDTIME #30 tabs 07/02/23 fluoxetine 10 mg capsule 30 mg (3 x 10 mg) PO DAILY #90 caps 07/02/23 metformin 500 mg tablet,extended 500 mg PO BID #60 tabs 07/02/23 release 24 hr montelukast 10 mg tablet 10 mg PO DAILY #30 tabs 07/02/23 albuterol sulfate 2.5 mg/3 mL 2.5 mg (3 mL) inhalation Q4H PRN 06/24/24 (0.083 %) solution for nebulization wheezing #60 mL cefuroxime axetil 500 mg tablet 500 mg PO Q12H #14 tabs 06/24/24 nicotine 21 mg/24 hr daily 1 patch transdermal Q24H #14 ea 06/24/24 transdermal patch lactulose 20 gram oral packet 20 g PO DAILY PRN constipation #30 11/29/24 ea polyethylene glycol 3350 17 17 g PO DAILY #238 grams 11/29/24 gram/dose oral powder (Miralax) diltiazem HCl 180 mg 180 mg PO DAILY #90 caps 03/24/25 capsule,extended release 24 hr (Cardizem CD) Allergies Allergy/AdvReac Type Severity Reaction Status Date / Time diazepam (From Valium) Allergy Unknown Unknown Verified 04/23/25 20:07 haloperidol (From Haldol) Allergy Unknown Unknown Verified 04/23/25 20:07 Penicillins Allergy Unknown Unknown Verified 04/23/25 20:07 risperidone (From Risperdal) Allergy Unknown Unknown Verified 04/23/25 20:07 aspirin (Aspirin) AdvReac Intermediate Vomiting Verified 04/23/25 20:07 trazodone (TRAZODONE) AdvReac Intermediate NAUSEA & Verified 04/23/25 20:07 VOMITING Review of Systems Review of Systems Constitutional : No Weight loss, No Fever, No Chills ENT/Mouth : No sore throat, No Rhinorrhea Eyes: No Swelling, No Redness Cardiovascular : No Chest Pain, No SOB, NoEdema Respiratory : No Cough, No Sputum, No Wheezing Gastrointestinal : Positive Nausea, no Vomiting, no Diarrhea, positive abdominal Pain, No Hematochezia, No Melena, pos constipation Genitourinary : No Dysuria, No Urinary Frequency, No Hematuria, No Urgency Musculoskeletal : No joint pain, No Myalgias, No Joint Swelling Skin : No Skin Lesions, No rash Neuro : No Weakness, No Numbness, No Dizziness, No Headache All other systems reviewed and are negative. [facility] Past Medical History Attestation statement: The following information was validated with the patient. Source: old records reviewed Medical History Anemia Diabetes Morbid obesity due to excess calories Anxiety Chronic mental illness COPD (chronic obstructive pulmonary disease) Hyperlipidemia Schizophrenia Asthma Surgical History Hx of colonoscopy History of tubal ligation H/O right knee surgery History of appendectomy Family History Family History Father Throat cancer Mother CVA (cerebral vascular accident) Brother Drug overdose Sister No problems noted. Sister No problems noted. Son No problems noted. Son No problems noted. 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 Other:: Lanny Charles, Inocencio Charles, - foster parents Housing: House Do you presently have visiting nurse or other home services: Yes Unable to assess alcohol history related to: Unknown Alcohol intake: never Comment: pt moves well s sba Patient Tobacco Use Status: Former Tobacco user Tobacco use type: Cigarette Cigarettes Per Day: 10 Smoked in Last 30 Days: No e-Cigarette/Vaping Use: Never Used Second Hand Smoke Exposure: No Use of substances other than those prescribed or required for medical reasons: No Advance Directives: Yes Advance Directives on File: Yes Advance Directives Date on File: 10/29/24 Patient : No service: No Current occupational status: disabled Sexual orientation: Straight/Heterosexual Physical Exam ED Vital Signs: Vital Signs - 24 hr 04/23/25 20:04 04/23/25 22:00 04/23/25 22:46 Temperature 98.3 F 97.6 F Pulse Rate 107 H 99 Respiratory Rate 18 16 18 Blood Pressure 139/66 136/70 Pulse Oximetry 96 94 Oxygen Delivery Method Room Air Room Air 04/24/25 00:00 04/24/25 00:50 Temperature 97.7 F Pulse Rate 94 Respiratory Rate 15 20 Blood Pressure 138/71 Pulse Oximetry 95 Oxygen Delivery Method Room Air BMI result Body Mass Index 35.7 Appearance: Alert. Oriented X3. appears in pain moderate acute distress. Eyes: Pupils equal, round and reactive to light. ENT: Pharynx normal. Neck: Normal inspection. Neck supple. CVS: Normal heart rate and rhythm. Pulses normal. Respiratory: No respiratory distress. Breath sounds normal. Abdomen: ttp diffusely no rebound, very distended, I cannot hear bowel sounds at this time. Skin: Skin warm and dry. Normal skin color. Normal skin turgor. Extremities: No lower extremity edema. No calf ttp Neuro: Oriented X 3. No motor deficit. No sensory deficit. CN2-12 intact Course Course Course Narrative: no urinary symptoms has no nitrates or bacteria would wait on culture Medical Decision Making Medical Decision Making MDM Narrative: 59 yo female with PMH of schizophrenia, pre-DM, anemia, asthma, CAP, HTN, ileus hx of appendectomy here with c/o pain, nausea, constipation, lack of flatus and distention. At this time labs, IV morphine for pain, CT scan ordered for obstructive pathology. Will monitor closely. Differential Diagnosis Differential Diagnoses: The differential diagnosis associated with the presentation includes mass, SBO, ileus, volvulus Admission/Observation Consideration of admission/observation: Escalation of care including admission/observation considered admit for pain control - will start on IVF, has received IV morphine and IV dilaudid Consult Healthcare Provider Management of the patient was discussed with: Hospitalist (will admit) and Quality Control Lab Tech Dr. Escobar will follow feels this is ileus Lab Data MDM Lab Attestation statement: I reviewed the patient's lab results. 04/23/25 20:25 04/23/25 20:25 Labs: Lab Results 04/23/25 Range/Units 20:25 WBC 9.8 (4.8-10.8) X10*3/uL RBC 3.87 L (4.20-5.50) X10*6/uL Hgb 8.2 L (12.0-16.0) g/dl Hct 28.1 L (37.0-47.0) % MCV 72.6 L (80.0-98.0) fL MCH 21.2 L (27.0-33.0) pg MCHC 29.2 L (31.0-35.0) g/dl RDW 21.3 H (11.0-16.0) % Plt Count 403 H (160-400) X10*3/uL MPV 11.1 (9.4-12.3) fL Immature Gran % (Auto) 0.4 (0.0-0.4) % Neut % (Auto) 62.2 (45-73) % Lymph % (Auto) 26.5 (20-40) % Quay % (Auto) 9.7 (2-11) % Eos % (Auto) 1.0 (0-4) % Baso % (Auto) 0.2 (0-2) % Lymph # (Auto) 2.6 (1.2-4.9) X10*3/uL Quay # (Auto) 1.0 (0.1-1.2) X10*3/uL Eos # (Auto) 0.1 (0.0-0.4) X10*3/uL Baso # (Auto) 0.0 (0.0-0.2) X10*3/uL Abs Immat Gran (auto) 0.04 H (0.00-0.03) X10*3/uL Absolute Neuts (auto) 6.1 (2.0-8.3) x10*3/uL Absolute Nucleated RBC 0.030 H (0.0-0.012) X10*3/uL Nucleated RBC % (auto) 0.3 H (0.0-0.2) /100WBC Sodium 135 (135-145) mmol/L Potassium 4.3 (3.3-5.1) mmol/L Chloride 100 (96-108) mmol/L Carbon Dioxide 25 (22-29) mmol/L Anion Gap 14 (12-20) BUN 15 (9-16) mg/dL Creatinine 0.59 (0.5-1.4) mg/dL Estim Creat Clear Calc 102.1 Estimated GFR > 60 Random Glucose 157 H (60-115) mg/dL Calcium 8.6 (8.4-10.2) mg/dL Total Bilirubin 0.2 (0.0-1.0) mg/dL Direct Bilirubin < 0.2 (0.0-0.5) mg/dL AST 16 (5-31) U/L ALT 18 (0-31) U/L Alkaline Phosphatase 91 (39-117) U/L Total Protein 7.5 (6.5-8.0) g/dL Albumin 4.4 (3.5-5.0) g/dL Lipase 21 (8-78) U/L Urine Color Yellow Urine Appearance Clear Urine pH 6.0 (5.0-9.0) Ur Specific Mcgregor 1.025 (1.005-1.025) Urine Protein Trace (Neg-Trace) mg/dL Urine Glucose (UA) Negative (Negative) mg/dL Urine Ketones Trace (Negative) mg/dL Urine Blood Moderate (2+) H (Negative) Urine Nitrite Negative (Negative) Ur Leukocyte Esterase Moderate (2+) H (Negative) Urine RBC >20 H (0-2) /HPF Urine WBC >50 H (0-5) /HPF Ur Squamous Epith Cells 3-5 (0-2) /HPF Urine Bacteria None Seen (None Seen) Hyaline Casts 0-2 (0-2) /LPF Independent Interpretation I performed an independent interpretation of an: CT Scan (?ileus and redundant colon) Radiology Impression Discussion of test interpretation with radiology: I have reviewed the radiologist's reading. External Record Review External record reviewed: Inpatient record and Outpatient record Medications Administered Discontinued Medications Generic Name Dose Route Start Last Admin Trade Name Freq PRN Reason Stop Dose Admin Hydromorphone HCl 1 mg 04/24/25 00:35 04/24/25 00:50 Hydromorphone Hcl 1 Mg/Ml Syringe IVPUSH 04/24/25 00:36 1 mg ONCE ONE Administration Protocol Iohexol 85 ml 04/23/25 23:22 04/23/25 23:23 Iohexol 350 Mg/Ml 100 Ml Infus..Btl IV 04/23/25 23:23 85 ml ONCE ONE Administration Morphine Sulfate 4 mg 04/23/25 22:08 04/23/25 22:46 Morphine Sulfate 4 Mg/Ml Cartridge IVPUSH 04/23/25 22:09 4 mg ONCE ONE Administration Protocol Ondansetron HCl 4 mg 04/23/25 22:08 04/23/25 22:46 Ondansetron Hcl 4 Mg/2 Ml Vial IVPUSH 04/23/25 22:09 4 mg ONCE ONE Administration Critical Care Time Critical Care Time Critical Care Time: Yes Total Critical Care Time: 35 Attestation: Time is exclusive of separately billable procedures. Time includes: direct patient care, patient reassessment, coordination of patient care, interpretation of data (laboratory data, pulse oximetry, CT scans), review of patient's medical records, medical consultation and documentation of patient care. IV dilaudid x 2. Procedures excluded from critical care time: electrocardiography. I attest to this time spent taking care of the patient Discharge Plan Discharge Clinical Impression: Ileus, Abdominal distension Abdominal pain Qualifiers: Abdominal location: generalized Qualified Code(s): R10.84 - Generalized abdominal pain Patient Disposition: Admitted As Inpatient Print Language: Prydeinig
[2025-04-23 22:46] VITALS: RESP 18
[2025-04-23] MEDS: iohexoL 350 MG/ML 100 ML INFUS..BTL 85 ML IV (23:23)
[2025-04-24] VITALS (10 sets, daily range): BP systolic 106–154; BP diastolic 47–86; PULSE 94–109; RESP 15–20; TEMP 36.2–37.2; O2SAT 92–98; BMI 35.7
--- NOTE | 2025-04-24 01:39 | PM.IMHP ---
History of Present Illness Date of Service: 04/24/25 Attending physician on admission: Sirnivasa Leiva Chief Complaint: abdominal distension Radioactivity Technician used for HPI and clinical exam Pt is a 59 yo female, citizen of [place] speaking only with PMH GERD, Ileus, Constipation, NIDDM, Hepatic steatosis, HLD, hypertension, UTI, asthma, osteoarthritis, right knee replacement, schizophrenia, pneumonia/COVID presents to the ED with report of 3 days of abdominal pain with distention, nausea but no vomiting. Patient does indicate that she has a chronic disposition with constipation. Patient states she did have a bowel movement yesterday which was soft and formed. Patient also reported when urinating she noticed blood on the tissue paper only. She did not notice blood in the commode. Patient does report history of chronic UTI. Patient has not had a recent UTI and denies any burning or pain with urination. Patient is having no abnormal vaginal discharge. Patient denies any history of alcohol use now or remotely. Patient is a nonsmoker and does not use marijuana or illicit drugs. Patient denies history of hepatitis-B or C. Workup in the emergency department included a CT of the abdomen and pelvis which identified possible ileus with no evidence of small-bowel obstruction, cholecystitis, diverticulitis. Lactic acid is pending. Patient has no leukocytosis. Hemodynamics are stable with no fever. Based on clinical exam patient agreed to NG tube placement to relieve her nausea. In addition patient received narcotics in the emergency department which will be held based on patient's current distention and symptoms. Review of Systems Review of Systems: Patient denies any chest pain, shortness of breath at rest but is reporting abdominal pain especially in the left upper and middle quadrants. Patient is reporting nausea but no vomiting. Patient has had no diarrhea and reported a bowel movement that was soft and formation yesterday x1. Patient denies use of alcohol now or in the past. Patient is compliant with her medications and lives with her caregiver who supports her. Patient did report blood on the tissue paper after urinating earlier prior to admission. Yes all other systems are reviewed and are negative [facility] Medical History Hepatic steatosis Anemia Diabetes Morbid obesity due to excess calories Anxiety Chronic mental illness COPD (chronic obstructive pulmonary disease) Hyperlipidemia Schizophrenia Asthma Cognitive capacity: Alert and orientated x3 Functional capacity: independent ambulation Patient : No Family History Father Throat cancer Mother CVA (cerebral vascular accident) Brother Drug overdose Sister No problems noted. Sister No problems noted. Son No problems noted. Son No problems noted. 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 Household Members Other:: Lanny Soto, Inocencio Soto, - foster parents Housing: House Do you presently have visiting nurse or other home services: Yes Unable to assess alcohol history related to: Unknown Alcohol intake: never Comment: pt moves well s sba Patient Tobacco Use Status: Former Tobacco user Tobacco use type: Cigarette Cigarettes Per Day: 10 e-Cigarette/Vaping Use: Never Used Second Hand Smoke Exposure: No Advance Directives Date on File: 10/29/24 service: No Current occupational status: disabled Sexual orientation: Straight/Heterosexual Ebola Risk: Travel/Contact With Anyone From Affected Area/s: No Has Patient Experienced Ebola Symptoms: No Meds Allergies Allergy/AdvReac Type Severity Reaction Status Date / Time diazepam (From Valium) Allergy Unknown Unknown Verified 04/23/25 20:07 haloperidol (From Haldol) Allergy Unknown Unknown Verified 04/23/25 20:07 Penicillins Allergy Unknown Unknown Verified 04/23/25 20:07 risperidone (From Risperdal) Allergy Unknown Unknown Verified 04/23/25 20:07 aspirin (Aspirin) AdvReac Intermediate Vomiting Verified 04/23/25 20:07 trazodone (TRAZODONE) AdvReac Intermediate NAUSEA & Verified 04/23/25 20:07 VOMITING Active Medications: Current Medications Acetaminophen (Acetaminophen 325 Mg Tablet) 650 mg PO Q6H PRN PRN Reason: Pain, Mild 1-3,fever,headache Calcium Carbonate (Calcium Carbonate 750 Mg Tab.Chew) 750 mg PO Q4H PRN PRN Reason: Heartburn Enoxaparin Sodium (Enoxaparin Sodium 40 Mg/0.4 Ml Syringe) 40 mg SUBCUT Q24H LAXMI Magnesium Hydroxide (Milk Of Magnesia 30 Ml Oral.Susp) 30 ml PO DAILY PRN PRN Reason: Constipation Melatonin (Melatonin 3 Mg Tablet) 6 mg PO BEDTIME PRN PRN Reason: Insomnia Ondansetron HCl (Ondansetron Hcl 4 Mg/2 Ml Vial) 4 mg IVPUSH Q8H PRN PRN Reason: Nausea and Vomiting Polyethylene Glycol (Polyethylene Glycol 3350 17 Gm Powd.Pack) 17 gm PO DAILY PRN PRN Reason: Constipation Senna (Sennosides 8.6 Mg Tablet) 17.2 mg PO BEDTIME LAXMI Sodium Chloride (0.9 % Sodium Chloride Flush 3 Ml Syringe) 3 ml IVFLUSH QSHIFT LAXMI Home Medications ?Medication ?Instructions ?Recorded ?Confirmed ?Last Taken ?Type sennosides 8.6 mg tablet (senna) 17.2 mg PO BEDTIME PRN constipation 12/13/22 03/24/25 12/12/22 History albuterol sulfate 90 mcg/actuation 2 puff inhalation Q6H PRN 06/18/23 03/24/25 Unknown History aerosol inhaler (Ventolin HFA) Shortness Of Breath Or Wheezing sucralfate 1 gram tablet 1 g PO TID 06/18/23 03/24/25 03/28/24 History tramadol 50 mg tablet 50 mg PO DAILY PRN Severe Pain 06/18/23 03/24/25 Unknown History (Scale Score 7-10) divalproex 500 mg tablet,extended 1,000 mg PO BEDTIME 10/01/23 03/24/25 03/28/24 History release 24 hr clonazepam 0.5 mg tablet 0.5 mg PO DAILY 03/29/24 03/24/25 03/28/24 History lisinopril 10 mg tablet 10 mg PO DAILY 03/29/24 03/24/25 03/28/24 History atorvastatin 40 mg tablet 40 mg PO BEDTIME 06/18/24 03/24/25 Unknown History omeprazole 20 mg capsule,delayed 20 mg PO BID@0630,1630 06/18/24 03/24/25 Unknown History release capsaicin 0.025 % topical cream 1 appl topical DAILY PRN Minor 06/19/24 03/24/25 Unknown History Aches and Pains clozapine 100 mg tablet 300 mg PO BEDTIME 06/19/24 03/24/25 Unknown History clozapine 25 mg tablet 25 mg PO BEDTIME 06/19/24 03/24/25 Unknown History divalproex 250 mg tablet,extended 250 mg PO BEDTIME 06/19/24 03/24/25 Unknown History release 24 hr docusate sodium 100 mg capsule 100 mg PO BID PRN Constipation 06/19/24 03/24/25 Unknown History fluticasone propionate 110 2 puff inhalation BID 06/19/24 03/24/25 Unknown History mcg/actuation HFA aerosol inhaler loratadine 10 mg tablet 10 mg PO DAILY 06/19/24 03/24/25 Unknown History magnesium hydroxide 400 mg/5 mL 5 ml PO DAILY PRN Constipation 06/19/24 03/24/25 Unknown History oral suspension (Milk of Magnesia) polyethylene glycol 3350 17 gram 17 g PO DAILY Constipation 06/19/24 03/24/25 Unknown History oral powder packet fluoxetine 20 mg capsule 20 mg PO QAM 07/21/24 03/24/25 Unknown History lactulose 10 gram/15 mL oral 45 ml PO QAM 07/21/24 03/24/25 Unknown History solution olanzapine 5 mg tablet 5 mg PO BEDTIME 07/21/24 03/24/25 Unknown History Physical Exam Vital Signs and Narrative: Vital Signs: Last Vital Signs Temp 97.7 F 04/24/25 00:00 Pulse 94 04/24/25 00:00 Resp 20 04/24/25 00:50 BP 138/71 04/24/25 00:00 Pulse Ox 95 04/24/25 00:00 O2 Del Method Room Air 04/24/25 00:00 BMI result Body Mass Index 35.7 Alert and orientated X3, able to give good history using tire curer Neuro: CN II-X11 intact, no deficits, visual acuity intact EYES: PERRLA, EOM intact, sclerae mildly icteric, conjunctiva pink ENT: hearing intact, no issues with swallowing, uvula midline, lips moist, nares patent no epistaxis Cardiac: S1 S2 RRR, no murmur, no JVD, no edema in Lower ext Pulmonary: lungs clear to auscultation bilaterally Abdominal: BS intermittently hypo active in all 4 quadrants, no guarding, extensive distention throughout all quadrants, tenderness with palpation of abdomen MSK: strength 4/5 upper and lower extremities : no CVA tenderness no bladder distension Extremities: no edema in lower extremities, PT and DP pulses palpable +2 Psych: mood anxious, judgement and insight good Skin: intact Results Labs 04/23/25 20:25 04/23/25 20:25 Labs: Laboratory Results - last 24 hr 04/23/25 20:25 MCV 72.6 L MCH 21.2 L MCHC 29.2 L RDW 21.3 H Plt Count 403 H MPV 11.1 Immature Gran % (Auto) 0.4 Neut % (Auto) 62.2 Lymph % (Auto) 26.5 Stearns % (Auto) 9.7 Eos % (Auto) 1.0 Baso % (Auto) 0.2 Lymph # (Auto) 2.6 Stearns # (Auto) 1.0 Eos # (Auto) 0.1 Baso # (Auto) 0.0 Abs Immat Gran (auto) 0.04 H Absolute Neuts (auto) 6.1 Absolute Nucleated RBC 0.030 H Nucleated RBC % (auto) 0.3 H Anion Gap 14 Estim Creat Clear Calc 102.1 Estimated GFR > 60 Random Glucose 157 H Calcium 8.6 Total Bilirubin 0.2 Direct Bilirubin < 0.2 AST 16 ALT 18 Alkaline Phosphatase 91 Total Protein 7.5 Albumin 4.4 Lipase 21 Urine Color Yellow Urine Appearance Clear Urine pH 6.0 Ur Specific Nelson 1.025 Urine Protein Trace Urine Glucose (UA) Negative Urine Ketones Trace Urine Blood Moderate (2+) H Urine Nitrite Negative Ur Leukocyte Esterase Moderate (2+) H Urine RBC >20 H Urine WBC >50 H Ur Squamous Epith Cells 3-5 Urine Bacteria None Seen Hyaline Casts 0-2 ECG Prior ECG tracings: not available for review Imaging Radiologist's Impressions: CT ABD PELVIS IMPRESSION: 1. Severe stool burden of the distended in redundant large intestine. Colonic outlet obstruction not excluded by imaging. 2. No small bowel obstruction. 3. Nonspecific wall thickening of the urinary bladder. Assessment and Plan (1) Ileus: Status: Acute Plan Pt is a 59 yo female, citizen of [place] speaking only with PMH GERD, Ileus, Constipation, NIDDM, tachycardia, Hepatic steatosis, HLD, hypertension, UTI, asthma, osteoarthritis, right knee replacement, schizophrenia, pneumonia/COVID presents to the ED with report of 3 days of abdominal pain with distention, nausea but no vomiting. Patient has not had a fever, chills or evidence of sepsis. Patient does indicate that she has a chronic disposition with constipation. Patient states she did have a bowel movement yesterday which was soft and formed. Patient also reported when urinating she noticed blood on the tissue paper only. UA possible suspicion for UTI and cultures pending. Patient being admitted with the following medical problems: Ileus with possible colonic outlet obstruction General surgery consulted in the ED and identified possible ileus - recommendations included NPO overnight Due to patient's extensive distention and continued nausea with no vomiting, attempt to place NG tube completed in the ED Chest x-ray post placement pending, if properly placed and she will be placed to intermittent low wall suction Antiemetics p.r.n. Avoid narcotics No evidence of SBP, sepsis or bowel obstruction via CT scan LFTs within normal limits, , lipase normal, no evidence of cholecystitis, diverticulitis Dulcolax suppository ordered Fleets PRN Oral bowel regimen on hold due to NPO status Unclear if patient is compliant with her lactulose dose daily and prn UTI Patient is started on ceftriaxone 1 g daily IV hydration ordered Renal function stable No indication for FIELD CAPTAIN exam, review at this time History of tachycardia Holter monitor most recently negative for AFib or aflutter Patient will continue Cardizem p.o. when able No indication for PRN IV Cardizem at this time Telemetry ordered NIDDM Sliding scale insulin for NPO status Schizophrenia Med rec pending Patient will need to resume her medications once no longer NPO as there were no IV equivalents for current med list Mood is stable, patient does not require one-to-one and is having no behavioral concerns DVT prophylaxis: Lovenox Med rec pending Full Code status Quality Stroke Does the patient have a stroke diagnosis?: No Reason for No Anti-thrombotic by Day Two: N/A - Med Ordered VTE Prior VTE?: No VTE Risk Level:: Medical - moderate - high VTE Device Contraindication: N/A - Device Ordered VTE Drug Contraindication: N/A - Med Ordered
--- NOTE | 2025-04-24 03:34 | PM.EVENT ---
Event Note Date of Service: 04/24/25 Event Note: NG tube placed by RN at bedside in room 9. Observed Xray s/p placement and appears to be in the gastric area. NG might need to be pulled back slightly. Will await read by radiology. NG tube is being tolerated by pt but pt exerpeincing some mild anxiety will order valium IV as HD's are stable. Time Spent With Patient Time: Total time managing care of this patient today ____ minutes.
--- NOTE | 2025-04-24 04:27 | PC.NURSE ---
Pt arrived in room, no distress noted.
[2025-04-24 06:18] LABS: MANUAL DIFF FLAG NO
[2025-04-24 06:22] LABS: Hematocrit 26.1 % (37.0-47.0); Hemoglobin 7.5 g/dl (12.0-16.0); Imm Gran Abs Auto 0.04 X10*3/uL (0.00-0.03); Imm Gran Pct Auto 0.5 % (0.0-0.4); Lymphocytes Absolute Auto 1.7 X10*3/uL (1.2-4.9); Mean Corpuscular HGB Conc 28.7 g/dl (31.0-35.0); Mean Corpuscular Hemoglobin 20.9 pg (27.0-33.0); Mean Corpuscular Volume 72.9 fL (80.0-98.0); NRBC Abs Auto 0.000 X10*3/uL (0.0-0.012); NRBC Pct Auto 0.0 /100WBC (0.0-0.2); Platelet Count 359 X10*3/uL (160-400); Red Blood Count 3.58 X10*6/uL (4.20-5.50); White Blood Count 8.1 X10*3/uL (4.8-10.8)
[2025-04-24 06:37] LABS: Anion Gap 14 (12-20); Blood Urea Nitrogen 14 mg/dL (9-16); Calcium 8.3 mg/dL (8.4-10.2); Carbon Dioxide 27 mmol/L (22-29); Chloride 101 mmol/L (96-108); Creatinine Clr Calc Pharmacy 111.5; Estimated Glomerular Filt Rate > 60; Magnesium 2.1 mg/dL (1.6-2.6); Potassium 4.5 mmol/L (3.3-5.1); Sodium 137 mmol/L (135-145)
--- NOTE | 2025-04-24 07:08 | PC.NURSE ---
Addendum entered by Mary Beth Pedroza RN 04/24/25 09:35: Pt is a 59 yo female, vincent[place] speaking only with PMH GERD, Ileus, Constipation, NIDDM, Hepatic steatosis, HLD, hypertension, UTI, asthma, osteoarthritis, right knee replacement, schizophrenia, pneumonia/COVID presents to the ED with report of 3 days of abdominal pain with distention, nausea but no vomiting. Patient does indicate that she has a chronic disposition with constipation. Patient states she did have a bowel movement yesterday which was soft and formed. CT of the abdomen and pelvis which identified possible ileus with no evidence of small-bowel obstruction, cholecystitis, diverticulitis. Patient alert and oriented, primarily vincentian speaking. Respirations even and non-labored. Abdomen very distended, and firm. Per surgery air noted in the rectal vault. NGT patent to LIWS and draining a scant amount of green bilious material. Positive pedal pulses with no edema. Original Note: Medical History Hepatic steatosis Anemia Diabetes Morbid obesity due to excess calories Anxiety Chronic mental illness COPD (chronic obstructive pulmonary disease) Hyperlipidemia Schizophrenia Asthma
--- NOTE | 2025-04-24 09:22 | PM.CNGS ---
History of Present Illness Consult details Consult date: 04/24/25 Narrative: [age] year old female with multiple medical problems including morbid obesity, schizophrenia, diabetes, COPD, admitted last night by the hospitalist because of abdominal distention. She had a CAT scan showed marked gaseous distention of the colon all the way distally She denies any vomiting. She does state that she has been passing bowel movements She does have a long history of chronic constipation as well. She appears to have poor baseline level of activity. She does not offer much with regards to her history. Review of Systems Constitutional: Constitutional: Denies chills and Denies fever(s) Cardiovascular: Cardiovascular: Reports dyspnea Respiratory: Respiratory: Reports dyspnea Gastrointestinal: Gastrointestinal: Reports abdominal pain and Denies vomiting Genitourinary: Genitourinary: Reports hematuria PMFSH Past Medical History Medical History Hepatic steatosis Anemia Diabetes Morbid obesity due to excess calories Anxiety Chronic mental illness COPD (chronic obstructive pulmonary disease) Hyperlipidemia Schizophrenia Asthma Family History Family History Father Throat cancer Mother CVA (cerebral vascular accident) Brother Drug overdose Sister No problems noted. Sister No problems noted. Son No problems noted. Son No problems noted. Surgical History Surgical History Hx of colonoscopy History of tubal ligation H/O right knee surgery History of appendectomy 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 and Friend(s) Household Members Other:: Lanny Soto, Inocencio Soto, - foster parents Housing: House Do you presently have visiting nurse or other home services: Yes Unable to assess alcohol history related to: Unknown Alcohol intake: never Comment: pt moves well s sba Patient Tobacco Use Status: Former Tobacco user Tobacco use type: Cigarette Cigarettes Per Day: 10 e-Cigarette/Vaping Use: Never Used Second Hand Smoke Exposure: Yes Advance Directives Date on File: 10/29/24 service: No Current occupational status: disabled Sexual orientation: Straight/Heterosexual Travel History Ebola Risk: Travel/Contact With Anyone From Affected Area/s: No Has Patient Experienced Ebola Symptoms: No Meds Allergies Allergy/AdvReac Type Severity Reaction Status Date / Time diazepam (From Valium) Allergy Severe Vomiting Verified 04/24/25 04:09 haloperidol (From Haldol) Allergy Unknown Unknown Verified 04/23/25 20:07 Penicillins Allergy Unknown Unknown Verified 04/23/25 20:07 risperidone (From Risperdal) Allergy Unknown Unknown Verified 04/23/25 20:07 aspirin (Aspirin) AdvReac Intermediate Vomiting Verified 04/23/25 20:07 trazodone (TRAZODONE) AdvReac Intermediate NAUSEA & Verified 04/23/25 20:07 VOMITING Active Medications: Current Medications Acetaminophen (Acetaminophen 325 Mg Tablet) 650 mg PO Q6H PRN PRN Reason: Pain, Mild 1-3,fever,headache Bisacodyl (Bisacodyl 10 Mg Supp.Rect) 10 mg [place] BEDTIME LAXMI Calcium Carbonate (Calcium Carbonate 750 Mg Tab.Chew) 750 mg PO Q4H PRN PRN Reason: Heartburn Ceftriaxone Sodium (Ceftriaxone Sodium 1 Gm Vial) 1 gm IVPUSH Q24H [facility] Stop: 04/29/25 02:14 Last Admin: 04/24/25 03:31 Dose: 1 gm Enoxaparin Sodium (Enoxaparin Sodium 40 Mg/0.4 Ml Syringe) 40 mg SUBCUT Q24H [facility] Last Admin: 04/24/25 09:06 Dose: 40 mg Sodium Chloride (Ns) 1,000 mls @ 100 mls/hr IVCONT .Q10H [facility] Last Admin: 04/24/25 03:31 Dose: 100 mls/hr Magnesium Hydroxide (Milk Of Magnesia 30 Ml Oral.Susp) 30 ml PO DAILY PRN PRN Reason: Constipation Melatonin (Melatonin 3 Mg Tablet) 6 mg PO BEDTIME PRN PRN Reason: Insomnia Ondansetron HCl (Ondansetron Hcl 4 Mg/2 Ml Vial) 4 mg IVPUSH Q8H PRN PRN Reason: Nausea and Vomiting Pantoprazole Sodium (Pantoprazole Sodium 40 Mg/10 Ml Vial) 40 mg IVPUSH DAILY@0630 [facility] Last Admin: 04/24/25 06:45 Dose: 40 mg Polyethylene Glycol (Polyethylene Glycol 3350 17 Gm Powd.Pack) 17 gm PO DAILY PRN PRN Reason: Constipation Senna (Sennosides 8.6 Mg Tablet) 17.2 mg PO BEDTIME [facility] Sodium Biphosphate/Sodium Phosphate (Sodium Phosphate,[place]-Dibasic 133 Ml Enema) 133 ml [place] ONCE PRN PRN Reason: Constipation Sodium Chloride (0.9 % Sodium Chloride Flush 3 Ml Syringe) 3 ml IVFLUSH QSHIFT LAXMI Last Admin: 04/24/25 09:07 Dose: Not Given Home Medications ?Medication ?Instructions ?Recorded ?Confirmed ?Last Taken ?Type sennosides 8.6 mg tablet (senna) 17.2 mg PO BEDTIME PRN constipation 12/13/22 04/24/25 12/12/22 History albuterol sulfate 90 mcg/actuation 2 puff inhalation Q4-6H PRN 06/18/23 04/24/25 Unknown History aerosol inhaler (Ventolin HFA) Shortness Of Breath Or Wheezing sucralfate 1 gram tablet 1 g PO TID 06/18/23 04/24/25 04/23/25 History tramadol 50 mg tablet 50 mg PO Q12H PRN Severe Pain 06/18/23 04/24/25 Unknown History (Scale Score 7-10) divalproex 500 mg tablet,extended 1,000 mg PO BEDTIME 10/01/23 04/24/25 04/22/25 History release 24 hr clonazepam 0.5 mg tablet 0.5 mg PO DAILY 03/29/24 04/24/25 04/23/25 History lisinopril 10 mg tablet 10 mg PO DAILY 03/29/24 04/24/25 04/23/25 History atorvastatin 40 mg tablet 40 mg PO BEDTIME 06/18/24 04/24/25 04/22/25 History omeprazole 20 mg capsule,delayed 20 mg PO BID@0630,1630 06/18/24 04/24/25 04/23/25 History release clozapine 100 mg tablet 300 mg PO BEDTIME 06/19/24 04/24/25 04/22/25 History divalproex 250 mg tablet,extended 250 mg PO BEDTIME 06/19/24 04/24/25 04/22/25 History release 24 hr docusate sodium 100 mg capsule 100 mg PO BID PRN Constipation 06/19/24 04/24/25 Unknown History loratadine 10 mg tablet 10 mg PO DAILY 06/19/24 04/24/25 04/23/25 History fluoxetine 20 mg capsule 20 mg PO DAILY 07/21/24 04/24/25 04/23/25 History lactulose 10 gram/15 mL oral 45 ml PO DAILY 07/21/24 04/24/25 04/23/25 History solution albuterol sulfate 2.5 mg/3 mL 2.5 mg inhalation Q6H PRN wheezing 04/24/25 04/24/25 Unknown History (0.083 %) solution for nebulization diltiazem HCl 120 mg 120 mg PO DAILY 04/24/25 04/24/25 04/23/25 History capsule,extended release 12 hr ferrous sulfate 325 mg (65 mg 325 mg PO Q2D 04/24/25 04/24/25 04/23/25 History iron) tablet,delayed release fluoxetine 10 mg capsule 10 mg PO DAILY 04/24/25 04/24/25 04/23/25 History metformin 500 mg tablet,extended 500 mg PO BIDWM 04/24/25 04/24/25 04/23/25 History release 24 hr polyethylene glycol 3350 17 17 g PO TID PRN Constipation 04/24/25 04/24/25 Unknown History gram/dose oral powder (Miralax) Physical Exam Vital Signs: Vital Signs: Last Vital Signs Temp 98.0 F 04/24/25 07:58 Pulse 95 04/24/25 07:58 Resp 18 04/24/25 07:58 BP 107/47 L 04/24/25 07:58 Pulse Ox 95 04/24/25 07:58 O2 Del Method Room Air 04/24/25 07:58 O2 Flow Rate 2 04/24/25 06:23 BMI result Body Mass Index 35.7 Results Labs 04/29/25 05:24 04/29/25 05:24 Labs: Abnormal lab results 04/23/25 04/24/25 Range/Units 20:25 06:12 RBC 3.87 L 3.58 L (4.20-5.50) X10*6/uL Hgb 8.2 L 7.5 L (12.0-16.0) g/dl Hct 28.1 L 26.1 L (37.0-47.0) % MCV 72.6 L 72.9 L (80.0-98.0) fL MCH 21.2 L 20.9 L (27.0-33.0) pg MCHC 29.2 L 28.7 L (31.0-35.0) g/dl RDW 21.3 H 20.9 H (11.0-16.0) % Plt Count 403 H (160-400) X10*3/uL Immature Gran % (Auto) 0.5 H (0.0-0.4) % Abs Immat Gran (auto) 0.04 H 0.04 H (0.00-0.03) X10*3/uL Absolute Nucleated RBC 0.030 H (0.0-0.012) X10*3/uL Nucleated RBC % (auto) 0.3 H (0.0-0.2) /100WBC Random Glucose 157 H 133 H (60-115) mg/dL Calcium 8.3 L (8.4-10.2) mg/dL Urine Blood Moderate (2+) H (Negative) Ur Leukocyte Esterase Moderate (2+) H (Negative) Urine RBC >20 H (0-2) /HPF Urine WBC >50 H (0-5) /HPF Short CBC 04/23/25 04/24/25 Range/Units 20:25 06:12 WBC 9.8 8.1 (4.8-10.8) X10*3/uL Hgb 8.2 L 7.5 L (12.0-16.0) g/dl Hct 28.1 L 26.1 L (37.0-47.0) % Plt Count 403 H 359 (160-400) X10*3/uL BMP 04/23/25 04/24/25 20:25 06:12 Sodium 135 137 Potassium 4.3 4.5 Chloride 100 101 Carbon Dioxide 25 27 BUN 15 14 Creatinine 0.59 0.54 Calcium 8.6 8.3 L Liver Function 04/23/25 Range/Units 20:25 Total Bilirubin 0.2 (0.0-1.0) mg/dL Direct Bilirubin < 0.2 (0.0-0.5) mg/dL AST 16 (5-31) U/L ALT 18 (0-31) U/L Alkaline Phosphatase 91 (39-117) U/L Albumin 4.4 (3.5-5.0) g/dL Urine 04/23/25 Range/Units 20:25 Urine Color Yellow Urine Appearance Clear Urine pH 6.0 (5.0-9.0) Ur Specific [place] 1.025 (1.005-1.025) Urine Protein Trace (Neg-Trace) mg/dL Urine Glucose (UA) Negative (Negative) mg/dL All other labs normal. Assessment and Plan (1) Abdominal distension: Status: Acute 59-year-old female with multiple medical problems including chronic anemia, hypertension, COPD morbid obesity, with abdominal distention. She does have a history of chronic constipation I have reviewed her CAT scan and this shows gaseous distention of the entire colon tapering in the distal sigmoid. There is no obvious transition point. I have done a rectal exam as well and there were no palpable masses. There is note of good amounts of air in the rectal vault. There was no blood in the exam finger She just had a colonoscopy with Dr. Mendez a year ago. It is unlikely that she has any neoplastic process causing any distal obstruction. Overall clinical picture is more suggestive of ileus. Her abdominal exam despite being distended is otherwise benign We will follow along while she is in the hospital. The NG tube was placed in the ER last night because of nausea. Procedures Date of Service Date of Service: 04/30/25
--- NOTE | 2025-04-24 10:01 | PHA.MEDREC ---
Pharmacy Consult ? Medication Reconciliation Pharmacy has completed the medication reconciliation. Spoke to patient via grading machine feeder. Patient knew a majority of her medications. Patient did state she takes 3 tablets of clozapine at bedtime ( 300 mg) and she last took on 04/22/25. She did not get her clozapine dose last night because she was in the ER.
--- NOTE | 2025-04-24 12:15 | P.PNIM_ITS ---
Subjective Subjective Date of Service: 04/24/25 Interval History: Saw the patient this a.m. in the ED with the help of university internship [facility] Surgery team was at the bedside-currently no acute surgical management indicated Abdomen continues to be distended with diffuse tender abdomen Patient reports last bowel movement last night NG tube low biliary intermittent suction Review of Systems Review of Systems: Yes all other systems are reviewed and are negative Physical Exam 2 Exam: Exam: General: Acutely ill-appearing, not in distress, pale appearing, NG tube draining bilious Resp: CTA bilaterally CVS: S1, S2, RRR GI: Significantly distended abdomen, diffusely tender more so in the left upper quadrant Extremities: No edema Psych: Appears mildly confused Vital Signs: Vital Signs: Last Vital Signs Temp 97.9 F 04/24/25 12:09 Pulse 98 04/24/25 12:09 Resp 18 04/24/25 12:09 BP 141/75 H 04/24/25 12:09 Pulse Ox 97 04/24/25 12:09 O2 Del Method Nasal Cannula 04/24/25 12:09 O2 Flow Rate 2.0 04/24/25 12:09 BMI result Body Mass Index 35.7 Objective Data Active Medications Acetaminophen (Acetaminophen 325 Mg Tablet) 650 mg PO Q6H PRN PRN Reason: Pain, Mild 1-3,fever,headache Bisacodyl (Bisacodyl 10 Mg Supp.Rect) 10 mg [place] BEDTIME LAXMI Calcium Carbonate (Calcium Carbonate 750 Mg Tab.Chew) 750 mg PO Q4H PRN PRN Reason: Heartburn Ceftriaxone Sodium (Ceftriaxone Sodium 1 Gm Vial) 1 gm IVPUSH Q24H [facility] Stop: 04/29/25 02:14 Last Admin: 04/24/25 03:31 Dose: 1 gm Documented By: KEEGAN Enoxaparin Sodium (Enoxaparin Sodium 40 Mg/0.4 Ml Syringe) 40 mg SUBCUT Q24H [facility] Last Admin: 04/24/25 09:06 Dose: 40 mg Documented By: SCIRPOS Sodium Chloride (Ns) 1,000 mls @ 100 mls/hr IVCONT .Q10H [facility] Last Admin: 04/24/25 03:31 Dose: 100 mls/hr Documented By: KEEGAN Magnesium Hydroxide (Milk Of Magnesia 30 Ml Oral.Susp) 30 ml PO DAILY PRN PRN Reason: Constipation Melatonin (Melatonin 3 Mg Tablet) 6 mg PO BEDTIME PRN PRN Reason: Insomnia Ondansetron HCl (Ondansetron Hcl 4 Mg/2 Ml Vial) 4 mg IVPUSH Q8H PRN PRN Reason: Nausea and Vomiting Pantoprazole Sodium (Pantoprazole Sodium 40 Mg/10 Ml Vial) 40 mg IVPUSH DAILY@0630 [facility] Last Admin: 04/24/25 06:45 Dose: 40 mg Documented By: ОЛЬГА-SAPPS Polyethylene Glycol (Polyethylene Glycol 3350 17 Gm Powd.Pack) 17 gm PO DAILY PRN PRN Reason: Constipation Senna (Sennosides 8.6 Mg Tablet) 17.2 mg PO BEDTIME [facility] Sodium Biphosphate/Sodium Phosphate (Sodium Phosphate,[place]-Dibasic 133 Ml Enema) 133 ml [place] ONCE PRN PRN Reason: Constipation Sodium Chloride (0.9 % Sodium Chloride Flush 3 Ml Syringe) 3 ml IVFLUSH QSHIFT [facility] Last Admin: 04/24/25 09:07 Dose: Not Given Documented By: MICHELE Non-Admin Reason: IV Running Labs 04/24/25 06:12 04/24/25 06:12 Labs: Laboratory Results - last 24 hr 04/23/25 04/24/25 20:25 06:12 MCV 72.6 L 72.9 L MCH 21.2 L 20.9 L MCHC 29.2 L 28.7 L RDW 21.3 H 20.9 H Plt Count 403 H 359 MPV 11.1 10.8 Immature Gran % (Auto) 0.4 0.5 H Neut % (Auto) 62.2 69.4 Lymph % (Auto) 26.5 20.4 [place] % (Auto) 9.7 8.8 Eos % (Auto) 1.0 0.7 Baso % (Auto) 0.2 0.2 Lymph # (Auto) 2.6 1.7 [place] # (Auto) 1.0 0.7 Eos # (Auto) 0.1 0.1 Baso # (Auto) 0.0 0.0 Abs Immat Gran (auto) 0.04 H 0.04 H Absolute Neuts (auto) 6.1 5.6 Absolute Nucleated RBC 0.030 H 0.000 Nucleated RBC % (auto) 0.3 H 0.0 Anion Gap 14 14 Estim Creat Clear Calc 102.1 111.5 Estimated GFR > 60 > 60 Random Glucose 157 H 133 H Lactic Acid 1.8 Calcium 8.6 8.3 L Magnesium 2.1 Total Bilirubin 0.2 Direct Bilirubin < 0.2 AST 16 ALT 18 Alkaline Phosphatase 91 Total Protein 7.5 Albumin 4.4 Lipase 21 Urine Color Yellow Urine Appearance Clear Urine pH 6.0 Ur Specific [place] 1.025 Urine Protein Trace Urine Glucose (UA) Negative Urine Ketones Trace Urine Blood Moderate (2+) H Urine Nitrite Negative Ur Leukocyte Esterase Moderate (2+) H Urine RBC >20 H Urine WBC >50 H Ur Squamous Epith Cells 3-5 Urine Bacteria None Seen Hyaline Casts 0-2 Blood Type O Positive Antibody Screen NEGATIVE Microbiology Microbiology Results: Microbiology 04/23/25 22:50 Urine Culture - Preliminary Urine clean catch - Clean Catch Midstream Culture too young to evaluate. Assessment and Plan (1) Abdominal distension: Status: Acute Plan pt is a very poor historian, non-compliant to meds , citizen [place] speaking only with PMH of Constipation, NIDDM, Hepatic steatosis, GERD, HLD, hypertension, UTI, asthma, osteoarthritis, right knee replacement, schizophrenia presents to the ED with report of subacute gradually worsening abdominal pain with distention, nausea and was noted to have ileus. ILEUS Acute on chronic hypertension Unclear etiology , Colonoscopy done last year was unremarkable However likely in the setting of decompensated liver cirrhosis-alcoholic versus For now she has a G-tube which is draining biliary fluid-slow but consistent- intermittently suction We will observe for relief of ileus with fluid resuscitation and electrolyte replacement to goal Imaging not suggestive of acute obstruction however can not completely rule it out Surgery consulted is of the opinion that this could be ileus and we will manage conservatively-NG tube decompression schizoaffective disorder bipolar type Anxiety Depression mild cognitive impairment- chronic mental illness and/or delirium Prior intake of ?bottle of pills? patient usually takes Clozaril 325 mg p.o. daily clonazepam 0.5 in the morning and 1 mg at bedtime and Depakote These are being held due to the current clinical status Patient has had multiple psych inpatient hospitalizations with multiple titrations in meds Denies SI/HI Deconditioned PT when medically stable Guarded prognosis This note is constructed using voice recognition software. While every effort has been made to ensure accuracy, virtual reality specialist errors may have been included. Quality Stroke Does the patient have a stroke diagnosis?: No Reason for No Anti-thrombotic by Day Two: N/A - Med Ordered VTE Prior VTE?: No VTE Risk Level:: Medical - moderate - high VTE Device Contraindication: N/A - Device Ordered VTE Drug Contraindication: N/A - Med Ordered
[2025-04-24 13:29] LABS: INTERNATIONAL NORM RATIO 1.0 (0.9-1.1); Prothrombin Time 11.6 SEC (10.9-12.4)
--- NOTE | 2025-04-24 15:31 | PM.EVENT ---
Event Note Date of Service: 04/27/25 Event Note: Seen on afternoon rounds Sleeping in appears comfortable Abdomen remains distended but very soft with no guarding, no rebound no significant tenderness NG tube in place, output thin bilious but not high volume Overall clinical picture suggestive of colonic ileus Colonoscopy done last year was unremarkable Time Spent With Patient Time: Total time managing care of this patient today ____ minutes.
[2025-04-24 16:29] LABS: Ammonia 51 umol/L (13-55)
--- NOTE | 2025-04-24 19:27 | PC.NURSE ---
[facility] program: Shari Ayala [phone] This person is the contact for the program where Brenna is currenly living.
[2025-04-24 20:07] LABS: OBS Int Ctl Valid YES; OBS1 POSITIVE (NEGATIVE)
--- NOTE | 2025-04-24 21:20 | PC.NURSE ---
2120 pt refusing PO medications at this time - afraid to take anything orally.
[2025-04-24] MEDS: 0.9 % Sodium Chloride Flush 3 ML SYRINGE IVFLUSH (23:42)
[2025-04-25 03:06] VITALS: BP 139/67; PULSE 85; RESP 18; TEMP 36.2; O2SAT 96
[2025-04-25 07:06] VITALS: BP 136/73; PULSE 100; RESP 16; TEMP 37.2; O2SAT 94
--- NOTE | 2025-04-25 07:54 | P.PNIM_ITS ---
Subjective Subjective Date of Service: 04/25/25 Interval History: Patient reports she had a bowel movement with tap water enema Her generalized abdominal distention seems to be slightly improved since enemas She seems less toxic compared to yesterday Hence this is likely severe constipation Given her improving mentation, we will re-initiate home GI, psych meds and manage Review of Systems Review of Systems: Yes all other systems are reviewed and are negative Physical Exam 2 Exam: Exam: General: sleeping, snoring , less ill-appearing, not in distress, pale appearing, NG tube draining bilious Resp: CTA bilaterally CVS: S1, S2, RRR GI: Significantly distended abdomen, mildly diffuse tender -significant improvement compared to presentation Extremities: No edema Psych: Appears mildly confused-likely her baseline Vital Signs: Vital Signs: Last Vital Signs Temp 98.9 F 04/25/25 07:06 Pulse 100 04/25/25 07:06 Resp 16 04/25/25 07:06 BP 136/73 04/25/25 07:06 Pulse Ox 94 04/25/25 07:06 O2 Del Method Nasal Cannula 04/25/25 07:06 O2 Flow Rate 2 04/25/25 07:06 BMI result Body Mass Index 35.7 Objective Data Active Medications Bisacodyl (Bisacodyl 10 Mg Supp.Rect) 10 mg [place] BEDTIME [facility] Last Admin: 04/24/25 21:20 Dose: Not Given Documented By: KAT Non-Admin Reason: Patient Refused Calcium Carbonate (Calcium Carbonate 750 Mg Tab.Chew) 750 mg PO Q4H PRN PRN Reason: Heartburn Ceftriaxone Sodium (Ceftriaxone Sodium 1 Gm Vial) 1 gm IVPUSH Q24H [facility] Stop: 04/29/25 02:14 Last Admin: 04/25/25 02:48 Dose: 1 gm Documented By: KAT Enoxaparin Sodium (Enoxaparin Sodium 40 Mg/0.4 Ml Syringe) 40 mg SUBCUT Q24H [facility] Last Admin: 04/24/25 09:06 Dose: 40 mg Documented By: SCIRPОЛЬГА Sodium Chloride (Ns) 1,000 mls @ 100 mls/hr IVCONT .Q10H [facility] Last Admin: 04/24/25 23:11 Dose: 100 mls/hr Documented By: KAT Acetaminophen (Ofirmev) 1,000 mg in 100 mls @ 16.7 mls/hr IV .Q6H [facility] Last Admin: 04/25/25 01:43 Dose: 16.7 mls/hr Documented By: KAT Melatonin (Melatonin 3 Mg Tablet) 6 mg PO BEDTIME PRN PRN Reason: Insomnia Ondansetron HCl (Ondansetron Hcl 4 Mg/2 Ml Vial) 4 mg IVPUSH Q8H PRN PRN Reason: Nausea and Vomiting Pantoprazole Sodium (Pantoprazole Sodium 40 Mg/10 Ml Vial) 40 mg IVPUSH DAILY@0630 [facility] Last Admin: 04/25/25 06:30 Dose: 40 mg Documented By: KAT Senna (Sennosides 8.6 Mg Tablet) 17.2 mg PO BEDTIME [facility] Last Admin: 04/24/25 21:20 Dose: Not Given Documented By: KAT Non-Admin Reason: Patient Refused Sodium Biphosphate/Sodium Phosphate (Sodium Phosphate,[place]-Dibasic 133 Ml Enema) 133 ml [place] ONCE PRN PRN Reason: Constipation Last Admin: 04/24/25 18:12 Dose: 133 ml Documented By: ISABEL Sodium Chloride (0.9 % Sodium Chloride Flush 3 Ml Syringe) 3 ml IVFLUSH QSHIFT [facility] Last Admin: 04/25/25 07:33 Dose: Not Given Documented By: YAO Non-Admin Reason: IV Running Labs 04/24/25 06:12 04/24/25 06:12 Labs: Laboratory Results - last 24 hr 04/24/25 04/24/25 04/24/25 12:47 16:10 19:53 PT 11.6 INR 1.0 Ammonia 51 Stool Occult Blood POSITIVE Microbiology Microbiology Results: Microbiology 04/23/25 22:50 Urine Culture - Preliminary Urine clean catch - Clean Catch Midstream Culture too young to evaluate. Assessment and Plan (1) Abdominal distension: Status: Acute Plan rehabilitation director used-Jaime pt is a very poor historian, non-compliant to meds , belizean speaking only with PMH of Constipation, NIDDM, Hepatic steatosis, GERD, HLD, hypertension, UTI, asthma, osteoarthritis, right knee replacement, schizophrenia presents to the ED with report of subacute gradually worsening abdominal pain with distention, nausea and was noted to have severe constipation. Constipation versus ileus Acute on chronic constipation-likely NG tube-conservative management Given chronic constipation, which likely aggravated her ileus and cause his current presentation However likely in the setting of decompensated liver cirrhosis-alcoholic versus For now she has a NG-tube which is draining biliary fluid-slow but consistent- intermittently suction We will observe for relief of ileus with fluid resuscitation and electrolyte replacement to goal Imaging not suggestive of acute obstruction however can not completely rule it out Surgery consulted is of the opinion that this could be ileus and we will manage conservatively-NG tube decompression schizoaffective disorder bipolar type Anxiety Depression mild cognitive impairment- chronic mental illness and/or delirium Prior intake of ?bottle of pills? Home meds are being resumed given her mental status which has improved Patient has had multiple psych inpatient hospitalizations with multiple titrations in meds Denies SI/HI Deconditioned PT when medically stable Guarded prognosis This note is constructed using voice recognition software. While every effort has been made to ensure accuracy, scientific informatics project leader errors may have been included. Quality Stroke Does the patient have a stroke diagnosis?: No Reason for No Anti-thrombotic by Day Two: N/A - Med Ordered VTE Prior VTE?: No VTE Risk Level:: Medical - moderate - high VTE Device Contraindication: N/A - Device Ordered VTE Drug Contraindication: N/A - Med Ordered
[2025-04-25 15:37] VITALS: BP 147/80; PULSE 98; RESP 16; TEMP 36.3; O2SAT 96
--- NOTE | 2025-04-25 16:03 | MHC.CM.PN ---
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
[2025-04-25] MEDS: iohexoL 350 MG/ML 100 ML INFUS..BTL IV (17:07)
[2025-04-25 19:42] VITALS: BP 145/74; PULSE 98; RESP 18; TEMP 36.2; O2SAT 94
--- NOTE | 2025-04-25 22:10 | PC.NURSE ---
Addendum entered by Yue Krause RN 04/25/25 23:27: pt educated on importance of medications. Pt stated once NG tube is out in reference to taking PO meds that cannot be crushed. Original Note: 2144 pt refusing PO medications that cannot be crushed at this time. Pt is afraid of vomiting.
[2025-04-26 03:34] VITALS: BP 137/60; PULSE 92; RESP 18; TEMP 36.1; O2SAT 94
[2025-04-26] MEDS: Lactated Ringers 1,000 ML 100 ML IVCONT (05:09)
[2025-04-26 06:34] LABS: MANUAL DIFF FLAG NO
[2025-04-26 06:46] LABS: Hematocrit 28.5 % (37.0-47.0); Hemoglobin 8.1 g/dl (12.0-16.0); Imm Gran Abs Auto 0.03 X10*3/uL (0.00-0.03); Imm Gran Pct Auto 0.3 % (0.0-0.4); Lymphocytes Absolute Auto 1.8 X10*3/uL (1.2-4.9); Mean Corpuscular HGB Conc 28.4 g/dl (31.0-35.0); Mean Corpuscular Hemoglobin 20.7 pg (27.0-33.0); Mean Corpuscular Volume 72.9 fL (80.0-98.0); NRBC Abs Auto 0.000 X10*3/uL (0.0-0.012); NRBC Pct Auto 0.0 /100WBC (0.0-0.2); Platelet Count 381 X10*3/uL (160-400); Red Blood Count 3.91 X10*6/uL (4.20-5.50); White Blood Count 9.2 X10*3/uL (4.8-10.8)
[2025-04-26 06:59] LABS: Alanine Aminotransferase 20 U/L (0-31); Albumin Level 4.0 g/dL (3.5-5.0); Alkaline Phosphatase 91 U/L (39-117); Anion Gap 14 (12-20); Aspartate Amino Transferase 25 U/L (5-31); Blood Urea Nitrogen 10 mg/dL (9-16); Calcium 9.0 mg/dL (8.4-10.2); Carbon Dioxide 30 mmol/L (22-29); Chloride 102 mmol/L (96-108); Creatinine Clr Calc Pharmacy 113.6; Estimated Glomerular Filt Rate > 60; Potassium 3.7 mmol/L (3.3-5.1); Sodium 142 mmol/L (135-145); Total Protein 7.0 g/dL (6.5-8.0)
--- NOTE | 2025-04-26 07:48 | P.PNIM_ITS ---
Subjective Subjective Date of Service: 04/26/25 Interval History: Patient is clinically improving with more bowel movements with aggressive bowel regimen and enemas NG tube was clamped this morning, we will likely be removed this a.m. Then we can continue being aggressive with her bowel regimen and likely discharge her in a day or 2 Review of Systems Review of Systems: Yes all other systems are reviewed and are negative Physical Exam 2 Exam: Exam: General: sleeping, snoring , less ill-appearing, not in distress, pale appearing, NG tube clamped this a.m. Resp: CTA bilaterally CVS: S1, S2, RRR GI: Significantly distended abdomen, nontender -significant improvement compared to presentation Extremities: No edema Psych: Appears mildly confused-likely her baseline Vital Signs: Vital Signs: Last Vital Signs Temp 97.0 F 04/26/25 03:34 Pulse 92 04/26/25 03:34 Resp 18 04/26/25 03:34 BP 137/60 04/26/25 03:34 Pulse Ox 94 04/26/25 03:34 O2 Del Method Nasal Cannula 04/26/25 03:34 O2 Flow Rate 2 04/26/25 03:34 BMI result Body Mass Index 35.7 Objective Data Active Medications Albuterol Sulfate (Albuterol Sulfate (0.083%) 2.5 Mg/3 Ml Vial.Neb) 2.5 mg INHALE Q6H PRN PRN Reason: Wheezing Albuterol Sulfate (Albuterol Sulfate 90 Mcg 8 Gm Inhaler) 2 puff INHALE Q4H PRN PRN Reason: Shortness Of Breath Or Wheezing Bisacodyl (Bisacodyl 10 Mg Supp.Rect) 10 mg [place] BEDTIME [facility] Last Admin: 04/25/25 22:09 Dose: Not Given Documented By: KAT Non-Admin Reason: pt wanted fleet enema Calcium Carbonate (Calcium Carbonate 750 Mg Tab.Chew) 750 mg PO Q4H PRN PRN Reason: Heartburn Ceftriaxone Sodium (Ceftriaxone Sodium 1 Gm Vial) 1 gm IVPUSH Q24H [facility] Stop: 04/29/25 02:14 Last Admin: 04/26/25 02:37 Dose: 1 gm Documented By: KAT Clonazepam (Clonazepam 0.5 Mg Tablet) 0.5 mg PO DAILY LAXMI Clonazepam (Clonazepam 1 Mg Tablet) 1 mg PO BEDTIME [facility] Last Admin: 04/25/25 21:31 Dose: 1 mg Documented By: KAT Clozapine (Clozapine 100 Mg Tablet) 300 mg PO BEDTIME LAXMI Clozapine (Clozapine 100 Mg Tablet) 100 mg PO BEDTIME [facility]XMI Stop: 04/26/25 21:01 Clozapine (Clozapine 100 Mg Tablet) 200 mg PO BEDTIME LAXMI Stop: 04/27/25 21:01 Diltiazem HCl (Diltiazem Hcl Cd 120 Mg Cap.Er.Deg) 120 mg PO DAILY LAXMI; Protocol Divalproex Sodium (Divalproex Sodium Er 250 Mg Tab.Er.24h) 250 mg PO BEDTIME LAXMI Last Admin: 04/25/25 22:09 Dose: Not Given Documented By: KAT Non-Admin Reason: Patient Refused Divalproex Sodium (Divalproex Sodium Er 500 Mg Tab.Er.24h) 1,000 mg PO BEDTIME [facility] Last Admin: 04/25/25 22:10 Dose: Not Given Documented By: KAT Non-Admin Reason: Patient Refused Docusate Sodium (Docusate Sodium 100 Mg Capsule) 100 mg PO BID PRN PRN Reason: Constipation Enoxaparin Sodium (Enoxaparin Sodium 40 Mg/0.4 Ml Syringe) 40 mg SUBCUT Q24H [facility] Last Admin: 04/25/25 09:03 Dose: 40 mg Documented By: YAO Ferrous Sulfate (Ferrous Sulfate 324 Mg Tablet.Dr) 324 mg PO Q2D [facility] Fluoxetine HCl (Fluoxetine Hcl 10 Mg Capsule) 10 mg PO DAILY [facility] Fluoxetine HCl (Fluoxetine Hcl 20 Mg Capsule) 20 mg PO DAILY [facility] Acetaminophen (Ofirmev) 1,000 mg in 100 mls @ 16.7 mls/hr IV .Q6H [facility] Last Admin: 04/26/25 04:35 Dose: 16.7 mls/hr Documented By: KAT Lactated Ringer's (Lr) 1,000 mls @ 100 mls/hr IVCONT .Q10H [facility] Stop: 04/26/25 14:59 Last Admin: 04/26/25 05:09 Dose: 100 mls/hr Documented By: KAT Lactulose (Lactulose 20 Gm/30 Ml Solution) 30 gm PO DAILY [facility] Lisinopril (Lisinopril 10 Mg Tablet) 10 mg PO DAILY [facility]; Protocol Loratadine (Loratadine 10 Mg Tablet) 10 mg PO DAILY [facility] Melatonin (Melatonin 3 Mg Tablet) 6 mg PO BEDTIME PRN PRN Reason: Insomnia Omeprazole (Omeprazole 20 Mg Capsule.Dr) 20 mg PO BID@0630,1630 [facility] Last Admin: 04/26/25 06:18 Dose: Not Given Documented By: KAT Non-Admin Reason: Patient Refused Ondansetron HCl (Ondansetron Hcl 4 Mg/2 Ml Vial) 4 mg IVPUSH Q8H PRN PRN Reason: Nausea and Vomiting Pantoprazole Sodium (Pantoprazole Sodium 40 Mg/10 Ml Vial) 40 mg IVPUSH DAILY@0630 [facility] Last Admin: 04/26/25 06:21 Dose: 40 mg Documented By: KAT Polyethylene Glycol (Polyethylene Glycol 3350 17 Gm Powd.Pack) 17 gm PO TID PRN PRN Reason: Constipation Senna (Sennosides 8.6 Mg Tablet) 17.2 mg PO BEDTIME [facility] Last Admin: 04/25/25 22:10 Dose: Not Given Documented By: KAT Non-Admin Reason: Patient Refused Senna (Sennosides 8.6 Mg Tablet) 17.2 mg PO BEDTIME PRN PRN Reason: Constipation Sodium Biphosphate/Sodium Phosphate (Sodium Phosphate,[place]-Dibasic 133 Ml Enema) 133 ml [place] ONCE PRN PRN Reason: Constipation Last Admin: 04/25/25 21:36 Dose: 133 ml Documented By: KAT Sodium Chloride (0.9 % Sodium Chloride Flush 3 Ml Syringe) 3 ml IVFLUSH QSHIFT [facility] Last Admin: 04/26/25 00:20 Dose: Not Given Documented By: KAT Non-Admin Reason: IV Running Sucralfate (Sucralfate 1 Gm Tablet) 1 gm PO TID [facility] Last Admin: 04/25/25 21:31 Dose: 1 gm Documented By: KAT Tramadol HCl (Tramadol Hcl 50 Mg Tablet) 50 mg PO Q12H PRN PRN Reason: Severe Pain (Scale Score 7-10) Labs 04/26/25 06:27 04/26/25 06:27 Labs: Laboratory Results - last 24 hr 04/26/25 06:27 MCV 72.9 L MCH 20.7 L MCHC 28.4 L RDW 21.4 H Plt Count 381 MPV 11.0 Immature Gran % (Auto) 0.3 Neut % (Auto) 68.7 Lymph % (Auto) 19.4 L [place] % (Auto) 10.5 Eos % (Auto) 0.8 Baso % (Auto) 0.3 Lymph # (Auto) 1.8 [place] # (Auto) 1.0 Eos # (Auto) 0.1 Baso # (Auto) 0.0 Abs Immat Gran (auto) 0.03 Absolute Neuts (auto) 6.4 Absolute Nucleated RBC 0.000 Nucleated RBC % (auto) 0.0 Anion Gap 14 Estim Creat Clear Calc 113.6 Estimated GFR > 60 Random Glucose 94 Calcium 9.0 D Total Bilirubin 0.3 AST 25 ALT 20 Alkaline Phosphatase 91 Total Protein 7.0 Albumin 4.0 Microbiology Microbiology Results: Microbiology 04/23/25 22:50 Urine Culture - Final Urine clean catch - Clean Catch Midstream Assessment and Plan (1) Abdominal distension: Status: Acute Plan pt is a very poor historian, primarily [place]-speaking, non-compliant to meds , pashto speaking only with PMH of Constipation, NIDDM, Hepatic steatosis, GERD, HLD, hypertension, UTI, asthma, osteoarthritis, right knee replacement, schizophrenia presents to the ED with report of subacute gradually worsening abdominal pain with distention, nausea and was noted to have severe constipation. Constipation versus ileus relieving with bowel meds and enemas Acute on chronic constipation-likely NG tube-conservative management -clamped-likely will be removed this morning Initially it was assumed that the patient had ileus versus SBO of unclear etiology, however it appears that the patient was significantly constipated and she was managed with an NG tube for 3 days. She is being treated with enemas and bowel regimen. Clinically improving Likely her NG tube will be removed today schizoaffective disorder bipolar type Anxiety Depression mild cognitive impairment- chronic mental illness and/or delirium Prior intake of ?bottle of pills? Home meds are being resumed given her mental status which has improved Patient has had multiple psych inpatient hospitalizations with multiple titrations in meds Denies SI/HI Deconditioned PT when medically stable Guarded prognosis This note is constructed using voice recognition software. While every effort has been made to ensure accuracy, summer sessions director errors may have been included. Quality Stroke Does the patient have a stroke diagnosis?: No Reason for No Anti-thrombotic by Day Two: N/A - Med Ordered VTE Prior VTE?: No VTE Risk Level:: Medical - moderate - high VTE Device Contraindication: N/A - Device Ordered VTE Drug Contraindication: N/A - Med Ordered
[2025-04-26 07:56] VITALS: BP 146/72; PULSE 95; RESP 16; TEMP 36.4; O2SAT 95
--- NOTE | 2025-04-26 09:09 | P.PNGS_ITS ---
Subjective Subjective Date of Service: 04/26/25 Interval history: Patient feels improved this morning after having a bowel movement. NG tube continues to have high output, 1500 mL last 24 hours. Patient would like to have the NG tube removed. She feels ready for discharge to home. Physical Exam 2 Vital Signs: Vital Signs: Last Vital Signs Temp 97.5 F 04/26/25 07:56 Pulse 95 04/26/25 07:56 Resp 16 04/26/25 07:56 BP 146/72 H 04/26/25 07:56 Pulse Ox 95 04/26/25 07:56 O2 Del Method Room Air 04/26/25 07:56 O2 Flow Rate 2 04/26/25 03:34 BMI result Body Mass Index 35.7 Const: General: no acute distress Nutritional Appearance: well nourished Orientation/consciousness: patient oriented x3 Resp: Effort & Inspection: normal respiratory effort GI: Other: Soft and nondistended, nontender to palpation. No tympany. Skin: Other: Warm, dry Neuro: General: patient oriented x3 Objective Data Active Medications Albuterol Sulfate (Albuterol Sulfate (0.083%) 2.5 Mg/3 Ml Vial.Neb) 2.5 mg INHALE Q6H PRN PRN Reason: Wheezing Albuterol Sulfate (Albuterol Sulfate 90 Mcg 8 Gm Inhaler) 2 puff INHALE Q4H PRN PRN Reason: Shortness Of Breath Or Wheezing Bisacodyl (Bisacodyl 10 Mg Supp.Rect) 10 mg [place] BEDTIME [facility] Last Admin: 04/25/25 22:09 Dose: Not Given Documented By: KAT Non-Admin Reason: pt wanted fleet enema Calcium Carbonate (Calcium Carbonate 750 Mg Tab.Chew) 750 mg PO Q4H PRN PRN Reason: Heartburn Ceftriaxone Sodium (Ceftriaxone Sodium 1 Gm Vial) 1 gm IVPUSH Q24H [facility] Stop: 04/29/25 02:14 Last Admin: 04/26/25 02:37 Dose: 1 gm Documented By: KAT Clonazepam (Clonazepam 0.5 Mg Tablet) 0.5 mg PO DAILY [facility] Clonazepam (Clonazepam 1 Mg Tablet) 1 mg PO BEDTIME [facility] Last Admin: 04/25/25 21:31 Dose: 1 mg Documented By: KAT Clozapine (Clozapine 100 Mg Tablet) 300 mg PO BEDTIME [facility] Clozapine (Clozapine 100 Mg Tablet) 100 mg PO BEDTIME [facility] Stop: 04/26/25 21:01 Clozapine (Clozapine 100 Mg Tablet) 200 mg PO BEDTIME [facility] Stop: 04/27/25 21:01 Diltiazem HCl (Diltiazem Hcl Cd 120 Mg Cap.Er.Deg) 120 mg PO DAILY [facility]; Protocol Divalproex Sodium (Divalproex Sodium Er 250 Mg Tab.Er.24h) 250 mg PO BEDTIME [facility] Last Admin: 04/25/25 22:09 Dose: Not Given Documented By: KAT Non-Admin Reason: Patient Refused Divalproex Sodium (Divalproex Sodium Er 500 Mg Tab.Er.24h) 1,000 mg PO BEDTIME [facility] Last Admin: 04/25/25 22:10 Dose: Not Given Documented By: KAT Non-Admin Reason: Patient Refused Docusate Sodium (Docusate Sodium 100 Mg Capsule) 100 mg PO BID PRN PRN Reason: Constipation Enoxaparin Sodium (Enoxaparin Sodium 40 Mg/0.4 Ml Syringe) 40 mg SUBCUT Q24H [facility] Last Admin: 04/25/25 09:03 Dose: 40 mg Documented By: YAO Ferrous Sulfate (Ferrous Sulfate 324 Mg Tablet.Dr) 324 mg PO Q2D [facility] Fluoxetine HCl (Fluoxetine Hcl 10 Mg Capsule) 10 mg PO DAILY [facility] Fluoxetine HCl (Fluoxetine Hcl 20 Mg Capsule) 20 mg PO DAILY [facility] Acetaminophen (Ofirmev) 1,000 mg in 100 mls @ 16.7 mls/hr IV .Q6H [facility] Last Admin: 04/26/25 04:35 Dose: 16.7 mls/hr Documented By: KAT Lactated Ringer's (Lr) 1,000 mls @ 100 mls/hr IVCONT .Q10H [facility] Stop: 04/26/25 14:59 Last Admin: 04/26/25 05:09 Dose: 100 mls/hr Documented By: KAT Lactulose (Lactulose 20 Gm/30 Ml Solution) 30 gm PO DAILY [facility] Lisinopril (Lisinopril 10 Mg Tablet) 10 mg PO DAILY [facility]; Protocol Loratadine (Loratadine 10 Mg Tablet) 10 mg PO DAILY [facility] Melatonin (Melatonin 3 Mg Tablet) 6 mg PO BEDTIME PRN PRN Reason: Insomnia Omeprazole (Omeprazole 20 Mg Capsule.) 20 mg PO BID@0630,1630 [facility] Last Admin: 04/26/25 06:18 Dose: Not Given Documented By: KAT Non-Admin Reason: Patient Refused Ondansetron HCl (Ondansetron Hcl 4 Mg/2 Ml Vial) 4 mg IVPUSH Q8H PRN PRN Reason: Nausea and Vomiting Pantoprazole Sodium (Pantoprazole Sodium 40 Mg/10 Ml Vial) 40 mg IVPUSH DAILY@0630 [facility] Last Admin: 04/26/25 06:21 Dose: 40 mg Documented By: KAT Polyethylene Glycol (Polyethylene Glycol 3350 17 Gm Powd.Pack) 17 gm PO TID PRN PRN Reason: Constipation Senna (Sennosides 8.6 Mg Tablet) 17.2 mg PO BEDTIME [facility] Last Admin: 04/25/25 22:10 Dose: Not Given Documented By: KAT Non-Admin Reason: Patient Refused Senna (Sennosides 8.6 Mg Tablet) 17.2 mg PO BEDTIME PRN PRN Reason: Constipation Sodium Biphosphate/Sodium Phosphate (Sodium Phosphate,[place]-Dibasic 133 Ml Enema) 133 ml [place] ONCE PRN PRN Reason: Constipation Last Admin: 04/25/25 21:36 Dose: 133 ml Documented By: KAT Sodium Chloride (0.9 % Sodium Chloride Flush 3 Ml Syringe) 3 ml IVFLUSH QSHIFT [facility] Last Admin: 04/26/25 00:20 Dose: Not Given Documented By: KAT Non-Admin Reason: IV Running Sucralfate (Sucralfate 1 Gm Tablet) 1 gm PO TID [facility] Last Admin: 04/25/25 21:31 Dose: 1 gm Documented By: KAT Tramadol HCl (Tramadol Hcl 50 Mg Tablet) 50 mg PO Q12H PRN PRN Reason: Severe Pain (Scale Score 7-10) Labs 04/26/25 06:27 04/26/25 06:27 Labs: Laboratory Results - last 24 hr 04/26/25 06:27 MCV 72.9 L MCH 20.7 L MCHC 28.4 L RDW 21.4 H Plt Count 381 MPV 11.0 Immature Gran % (Auto) 0.3 Neut % (Auto) 68.7 Lymph % (Auto) 19.4 L [place] % (Auto) 10.5 Eos % (Auto) 0.8 Baso % (Auto) 0.3 Lymph # (Auto) 1.8 [place] # (Auto) 1.0 Eos # (Auto) 0.1 Baso # (Auto) 0.0 Abs Immat Gran (auto) 0.03 Absolute Neuts (auto) 6.4 Absolute Nucleated RBC 0.000 Nucleated RBC % (auto) 0.0 Anion Gap 14 Estim Creat Clear Calc 113.6 Estimated GFR > 60 Random Glucose 94 Calcium 9.0 D Total Bilirubin 0.3 AST 25 ALT 20 Alkaline Phosphatase 91 Total Protein 7.0 Albumin 4.0 Microbiology Microbiology Results: Microbiology 04/23/25 22:50 Urine Culture - Final Urine clean catch - Clean Catch Midstream Procedures Date of Service Date of Service: 04/26/25 Progress Note: A&P Assessment and plan (1) Ileus: Status: Acute Plan 59-year-old female patient with an apparent ileus now improving with positive bowel movement today. NG tube output continues to be high however. We will do a clamping trial this morning. Tube can be removed if low residual after 4 hours. Discussed with the patient she agrees with the plan. Time Spent With Patient Time: Total time managing care of this patient today ____ minutes. Quality Stroke Does the patient have a stroke diagnosis?: No Reason for No Anti-thrombotic by Day Two: N/A - Med Ordered VTE Prior VTE?: No VTE Risk Level:: Medical - moderate - high VTE Device Contraindication: N/A - Device Ordered VTE Drug Contraindication: N/A - Med Ordered
[2025-04-26 15:41] VITALS: BP 156/73; PULSE 93; RESP 16; TEMP 36.2; O2SAT 95
[2025-04-26 19:23] VITALS: BP 137/79; PULSE 80; RESP 18; TEMP 36.6; O2SAT 93
[2025-04-26] MEDS: Divalproex Sodium ER 250 MG TAB.ER.24H PO (19:54)
[2025-04-26] MEDS: 0.9 % Sodium Chloride Flush 3 ML SYRINGE IVFLUSH (19:57)
[2025-04-27 03:24] VITALS: BP 155/75; PULSE 72; RESP 16; TEMP 36.7; O2SAT 93
[2025-04-27 06:33] LABS: MANUAL DIFF FLAG NO
[2025-04-27 06:48] VITALS: BP 147/77; PULSE 75; RESP 17; TEMP 36.6; O2SAT 95
[2025-04-27 06:48] LABS: Hematocrit 27.2 % (37.0-47.0); Hemoglobin 7.7 g/dl (12.0-16.0); Imm Gran Abs Auto 0.03 X10*3/uL (0.00-0.03); Imm Gran Pct Auto 0.3 % (0.0-0.4); Lymphocytes Absolute Auto 2.7 X10*3/uL (1.2-4.9); Mean Corpuscular HGB Conc 28.3 g/dl (31.0-35.0); Mean Corpuscular Hemoglobin 20.9 pg (27.0-33.0); Mean Corpuscular Volume 73.7 fL (80.0-98.0); NRBC Abs Auto 0.030 X10*3/uL (0.0-0.012); NRBC Pct Auto 0.3 /100WBC (0.0-0.2); Platelet Count 369 X10*3/uL (160-400); Red Blood Count 3.69 X10*6/uL (4.20-5.50); White Blood Count 9.2 X10*3/uL (4.8-10.8)
[2025-04-27 07:12] LABS: Alanine Aminotransferase 14 U/L (0-31); Albumin Level 3.6 g/dL (3.5-5.0); Alkaline Phosphatase 78 U/L (39-117); Anion Gap 14 (12-20); Aspartate Amino Transferase 23 U/L (5-31); Blood Urea Nitrogen 10 mg/dL (9-16); Calcium 8.6 mg/dL (8.4-10.2); Carbon Dioxide 27 mmol/L (22-29); Chloride 103 mmol/L (96-108); Creatinine Clr Calc Pharmacy 111.5; Estimated Glomerular Filt Rate > 60; Potassium 3.7 mmol/L (3.3-5.1); Sodium 140 mmol/L (135-145); Total Protein 6.4 g/dL (6.5-8.0)
--- NOTE | 2025-04-27 08:16 | PM.PNGS ---
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 States she has a minimal pain at rest. Denies nausea or vomiting. She had multiple bowel movements yesterday. Still feels bloated. Tolerating clear liquids. NG was clamped yesterday, is no longer in place. Her symptoms have not returned since removal. She is complaining of pain in her throat due to the to, this is decreasing her appetite. <ZECHARIAH Goldman Last Filed: 04/27/25 08:30> Physical Exam Vital Signs: Vital Signs: Last Vital Signs Temp 98 F 04/27/25 06:48 Pulse 75 04/27/25 06:48 Resp 17 04/27/25 06:48 BP 147/77 H 04/27/25 06:48 Pulse Ox 95 04/27/25 06:48 O2 Del Method Room Air 04/27/25 06:48 O2 Flow Rate 2 04/26/25 03:34 BMI result Body Mass Index 35.7 <Jose Killian PA-C - Last Filed: 04/27/25 08:30> Const: General: comfortable and no acute distress <ZECHARIAH Goldman Last Filed: 04/27/25 08:30> Orientation/consciousness: oriented to person and oriented to place <Jose Killian PA-C - Last Filed: 04/27/25 08:30> Resp: Effort & Inspection: normal respiratory effort and able to speak in complete sentences <Jose Killian PA-C - Last Filed: 04/27/25 08:30> GI: Inspection: Yes distended (Moderate) <ZECHARIAH Goldman Last Filed: 04/27/25 08:30> Palpation (GI): Soft to palpation, Tenderness to palpation present (GI) (Upper abdomen mild) and not rigid <ZECHARIAH Goldman Last Filed: 04/27/25 08:30> Percussion: Yes tympanic to percussion <ZECHARIAH Goldman Last Filed: 04/27/25 08:30> Neuro: General: oriented to person and oriented to place <Jose Killian PA-C - Last Filed: 04/27/25 08:30> Objective Data Active Medications Albuterol Sulfate (Albuterol Sulfate (0.083%) 2.5 Mg/3 Ml Vial.Neb) 2.5 mg INHALE Q6H PRN PRN Reason: Wheezing Albuterol Sulfate (Albuterol Sulfate 90 Mcg 8 Gm Inhaler) 2 puff INHALE Q4H PRN PRN Reason: Shortness Of Breath Or Wheezing Bisacodyl (Bisacodyl 10 Mg Supp.Rect) 10 mg [place] BEDTIME [facility] Last Admin: 04/26/25 19:54 Dose: Not Given Documented By: JOHNATHAN Non-Admin Reason: Patient Refused Calcium Carbonate (Calcium Carbonate 750 Mg Tab.Chew) 750 mg PO Q4H PRN PRN Reason: Heartburn Ceftriaxone Sodium (Ceftriaxone Sodium 1 Gm Vial) 1 gm IVPUSH Q24H [facility] Stop: 04/29/25 02:14 Last Admin: 04/27/25 03:28 Dose: 1 gm Documented By: JOHNATHAN Clonazepam (Clonazepam 0.5 Mg Tablet) 0.5 mg PO DAILY [facility] Last Admin: 04/26/25 09:22 Dose: 0.5 mg Documented By: YAO Clonazepam (Clonazepam 1 Mg Tablet) 1 mg PO BEDTIME [facility] Last Admin: 04/26/25 19:57 Dose: 1 mg Documented By: JOHNATHAN Clozapine (Clozapine 100 Mg Tablet) 300 mg PO BEDTIME [facility] Clozapine (Clozapine 100 Mg Tablet) 200 mg PO BEDTIME [facility] Stop: 04/27/25 21:01 Diltiazem HCl (Diltiazem Hcl Cd 120 Mg Cap.Er.Deg) 120 mg PO DAILY [facility]; Protocol Last Admin: 04/26/25 09:23 Dose: Not Given Documented By: YAO Non-Admin Reason: Patient Refused Divalproex Sodium (Divalproex Sodium Er 250 Mg Tab.Er.24h) 250 mg PO BEDTIME [facility] Last Admin: 04/26/25 19:54 Dose: 250 mg Documented By: JOHNATHAN Divalproex Sodium (Divalproex Sodium Er 500 Mg Tab.Er.24h) 1,000 mg PO BEDTIME [facility] Last Admin: 04/26/25 20:02 Dose: Not Given Documented By: JOHNATHAN Non-Admin Reason: Patient Refused Docusate Sodium (Docusate Sodium 100 Mg Capsule) 100 mg PO BID PRN PRN Reason: Constipation Enoxaparin Sodium (Enoxaparin Sodium 40 Mg/0.4 Ml Syringe) 40 mg SUBCUT Q24H [facility] Last Admin: 04/26/25 09:23 Dose: 40 mg Documented By: YAO Ferrous Sulfate (Ferrous Sulfate 324 Mg Tablet.) 324 mg PO Q2D [facility] Last Admin: 04/26/25 09:23 Dose: Not Given Documented By: YAO Non-Admin Reason: Patient Refused Fluoxetine HCl (Fluoxetine Hcl 10 Mg Capsule) 10 mg PO DAILY [facility] Last Admin: 04/26/25 09:22 Dose: Not Given Documented By: YAO Non-Admin Reason: Patient Refused Fluoxetine HCl (Fluoxetine Hcl 20 Mg Capsule) 20 mg PO DAILY [facility] Last Admin: 04/26/25 09:22 Dose: Not Given Documented By: YAO Non-Admin Reason: Patient Refused Acetaminophen (Ofirmev) 1,000 mg in 100 mls @ 16.7 mls/hr IV .Q6H [facility] Last Admin: 04/27/25 03:28 Dose: 16.7 mls/hr Documented By: JOHNATHAN Lactulose (Lactulose 20 Gm/30 Ml Solution) 30 gm PO DAILY [facility] Last Admin: 04/26/25 09:22 Dose: Not Given Documented By: YAO Non-Admin Reason: Patient Refused Lisinopril (Lisinopril 10 Mg Tablet) 10 mg PO DAILY [facility]; Protocol Last Admin: 04/26/25 09:22 Dose: 10 mg Documented By: YAO Loratadine (Loratadine 10 Mg Tablet) 10 mg PO DAILY [facility] Last Admin: 04/26/25 09:22 Dose: 10 mg Documented By: YAO Melatonin (Melatonin 3 Mg Tablet) 6 mg PO BEDTIME PRN PRN Reason: Insomnia Omeprazole (Omeprazole 20 Mg Capsule.) 20 mg PO BID@0630,1630 [facility] Last Admin: 04/27/25 05:40 Dose: Not Given Documented By: JOHNATHAN Non-Admin Reason: Patient Refused Ondansetron HCl (Ondansetron Hcl 4 Mg/2 Ml Vial) 4 mg IVPUSH Q8H PRN PRN Reason: Nausea and Vomiting Polyethylene Glycol (Polyethylene Glycol 3350 17 Gm Powd.Pack) 17 gm PO TID PRN PRN Reason: Constipation Senna (Sennosides 8.6 Mg Tablet) 17.2 mg PO BEDTIME [facility] Last Admin: 04/26/25 19:55 Dose: 17.2 mg Documented By: JOHNATHAN Senna (Sennosides 8.6 Mg Tablet) 17.2 mg PO BEDTIME PRN PRN Reason: Constipation Sodium Biphosphate/Sodium Phosphate (Sodium Phosphate,[place]-Dibasic 133 Ml Enema) 133 ml [place] ONCE PRN PRN Reason: Constipation Last Admin: 04/25/25 21:36 Dose: 133 ml Documented By: KAT Sodium Chloride (0.9 % Sodium Chloride Flush 3 Ml Syringe) 3 ml IVFLUSH QSHIFT [facility] Last Admin: 04/27/25 07:31 Dose: Not Given Documented By: LAKSHMI Non-Admin Reason: IV Running Sucralfate (Sucralfate 1 Gm Tablet) 1 gm PO TID [facility] Last Admin: 04/26/25 19:54 Dose: 1 gm Documented By: JOHNATHAN Tramadol HCl (Tramadol Hcl 50 Mg Tablet) 50 mg PO Q12H PRN PRN Reason: Severe Pain (Scale Score 7-10) Last Admin: 04/26/25 19:54 Dose: 50 mg Documented By: JOHNATHAN <Jose Killian PA-C - Last Filed: 04/27/25 08:30> Labs CBC & Chem 7: 04/27/25 05:33 04/27/25 05:33 <Jose Killian PA-C - Last Filed: 04/27/25 08:30> Labs: Laboratory Results - last 24 hr 04/27/25 05:33 MCV 73.7 L MCH 20.9 L MCHC 28.3 L RDW 20.9 H Plt Count 369 MPV 11.2 Immature Gran % (Auto) 0.3 Neut % (Auto) 58.6 Lymph % (Auto) 29.5 [place] % (Auto) 9.8 Eos % (Auto) 1.5 Baso % (Auto) 0.3 Lymph # (Auto) 2.7 [place] # (Auto) 0.9 Eos # (Auto) 0.1 Baso # (Auto) 0.0 Abs Immat Gran (auto) 0.03 Absolute Neuts (auto) 5.4 Absolute Nucleated RBC 0.030 H Nucleated RBC % (auto) 0.3 H Anion Gap 14 Estim Creat Clear Calc 111.5 Estimated GFR > 60 Random Glucose 76 Calcium 8.6 Total Bilirubin 0.2 AST 23 ALT 14 Alkaline Phosphatase 78 Total Protein 6.4 L Albumin 3.6 <Jose Killian PA-C - Last Filed: 04/27/25 08:30> Procedures Date of Service Date of Service: 04/27/25 <Jose Killian PA-C - Last Filed: 04/27/25 08:30> 04/27/25 <Juan Alberto Escobar MD - Last Filed: 04/27/25 12:41> Progress Note: A&P Assessment and plan (1) Ileus: Status: Acute <Jose Killian PA-C - Last Filed: 04/27/25 08:30> Assessment and Plan: She feels much better NG tube removed yesterday No nausea or vomiting or abdominal pain She complains of throat pain from the NG tube Abdomen remained soft and benign She is passing flatus Okay to slowly advance diet as tolerated Seen and examined independently We will continue to follow up Encouraged to increase level of activity <Juan Alberto Escobar MD - Last Filed: 04/27/25 12:41> Assessment and Plan: 59 year old female admitted for management of ileus. Now improving, has passed multiple bowel movements. NG tube was clamped yesterday, removed in the afternoon. Patient has been largely asymptomatic since removal. Denies nausea or vomiting currently minimal abdominal pain at rest. Overall tolerating clear liquid diets although she has decreased appetite due to pain in her throat from the NG tube. On exam her abdomen remains moderately distended, tympanitic to percussion. Some mild tenderness in the upper abdomen. No plan for surgical intervention at this time. Can advance diet as tolerated. Ambulation as tolerated <Jose Killian PA-C - Last Filed: 04/27/25 08:30> Time Spent With Patient Time: Total time managing care of this patient today ____ minutes. <Jose Killian PA-C - Last Filed: 04/27/25 08:30> Quality Stroke Does the patient have a stroke diagnosis?: No <Jose Killian PA-C - Last Filed: 04/27/25 08:30> Reason for No Anti-thrombotic by Day Two: N/A - Med Ordered <Jose Killian PA-C - Last Filed: 04/27/25 08:30> VTE Prior VTE?: No <Jose Killian PA-C - Last Filed: 04/27/25 08:30> VTE Risk Level:: Medical - moderate - high <Jose Killian PA-C - Last Filed: 04/27/25 08:30> VTE Device Contraindication: N/A - Device Ordered <Jose Killian PA-C - Last Filed: 04/27/25 08:30> VTE Drug Contraindication: N/A - Med Ordered <Jose Killian PA-C - Last Filed: 04/27/25 08:30>
[2025-04-27 08:41] VITALS: BP 147/77
--- NOTE | 2025-04-27 11:25 | MHC.CM.PN ---
Addendum entered by Aysha Ortega RN 04/27/25 16:22: MDS/clinicals faxed to [facility]. Will need: PASRR completed and sent to [facility] DC summary w/ less than 30 sent to [facility] Addendum entered by Aysha Ortega RN 04/27/25 13:02: Met with patient at bedside, [facility] via telephone. court interpreter assisting. Patient accepted bed at [facility]. Original Note: Per MD rounds, patient not medically cleared for dc. PT rec STR. Patient is agreeable, no facility preferences. She requested that this CM review w/ Iris, [employer]. Attempted to call [facility] x2, unable to LM as mailbox is full. Referral sent via [facility]. Awaiting response.
--- NOTE | 2025-04-27 13:20 | P.PNIM_ITS ---
Subjective Subjective Date of Service: 04/27/25 Interval History: Patient is clinically improving with more bowel movements with aggressive bowel regimen and enemas NG tube removed Still with throat pain Review of Systems Review of Systems: Yes all other systems are reviewed and are negative Physical Exam 2 Exam: Exam: Appearing in no acute distress lung sounds are clear to auscultation heart regular rate rhythm, clear S1, S2 positive bowel sounds, abdomen is soft, nontender neuro patient is alert x3, no focal deficits Edema to submandibular area Vital Signs: Vital Signs: Last Vital Signs Temp 98 F 04/27/25 06:48 Pulse 75 04/27/25 06:48 Resp 17 04/27/25 06:48 BP 147/77 H 04/27/25 08:41 Pulse Ox 95 04/27/25 06:48 O2 Del Method Room Air 04/27/25 06:48 O2 Flow Rate 2 04/26/25 03:34 BMI result Body Mass Index 35.7 Objective Data Active Medications Albuterol Sulfate (Albuterol Sulfate (0.083%) 2.5 Mg/3 Ml Vial.Neb) 2.5 mg INHALE Q6H PRN PRN Reason: Wheezing Albuterol Sulfate (Albuterol Sulfate 90 Mcg 8 Gm Inhaler) 2 puff INHALE Q4H PRN PRN Reason: Shortness Of Breath Or Wheezing Bisacodyl (Bisacodyl 10 Mg Supp.Rect) 10 mg [place] BEDTIME [facility] Last Admin: 04/26/25 19:54 Dose: Not Given Documented By: JOHNATHAN Non-Admin Reason: Patient Refused Calcium Carbonate (Calcium Carbonate 750 Mg Tab.Chew) 750 mg PO Q4H PRN PRN Reason: Heartburn Ceftriaxone Sodium (Ceftriaxone Sodium 1 Gm Vial) 1 gm IVPUSH Q24H ON [facility] Stop: 04/29/25 02:14 Last Admin: 04/27/25 03:28 Dose: 1 gm Documented By: JOHNATHAN Clonazepam (Clonazepam 0.5 Mg Tablet) 0.5 mg PO DAILY [facility] Last Admin: 04/27/25 08:41 Dose: 0.5 mg Documented By: LAKSHMI Clonazepam (Clonazepam 1 Mg Tablet) 1 mg PO BEDTIME [facility] Last Admin: 04/26/25 19:57 Dose: 1 mg Documented By: JOHNATHAN Clozapine (Clozapine 100 Mg Tablet) 300 mg PO BEDTIME [facility] Clozapine (Clozapine 100 Mg Tablet) 200 mg PO BEDTIME [facility] Stop: 04/27/25 21:01 Diltiazem HCl (Diltiazem Hcl Cd 120 Mg Cap.Er.Deg) 120 mg PO DAILY [facility]; Protocol Last Admin: 04/27/25 08:39 Dose: Not Given Documented By: LAKSHMI Non-Admin Reason: cannot crush Divalproex Sodium (Divalproex Sodium Er 250 Mg Tab.Er.24h) 250 mg PO BEDTIME [facility] Last Admin: 04/26/25 19:54 Dose: 250 mg Documented By: JOHNATHAN Divalproex Sodium (Divalproex Sodium Er 500 Mg Tab.Er.24h) 1,000 mg PO BEDTIME [facility] Last Admin: 04/26/25 20:02 Dose: Not Given Documented By: JOHNATHAN Non-Admin Reason: Patient Refused Docusate Sodium (Docusate Sodium 100 Mg Capsule) 100 mg PO BID PRN PRN Reason: Constipation Enoxaparin Sodium (Enoxaparin Sodium 40 Mg/0.4 Ml Syringe) 40 mg SUBCUT Q24H [facility] Last Admin: 04/27/25 08:42 Dose: 40 mg Documented By: LAKSHMI Ferrous Sulfate (Ferrous Sulfate 324 Mg Tablet.Dr) 324 mg PO Q2D [facility] Last Admin: 04/26/25 09:23 Dose: Not Given Documented By: YAO Non-Admin Reason: Patient Refused Fluoxetine HCl (Fluoxetine Hcl 10 Mg Capsule) 10 mg PO DAILY [facility] Last Admin: 04/27/25 08:41 Dose: 10 mg Documented By: LAKSHMI Fluoxetine HCl (Fluoxetine Hcl 20 Mg Capsule) 20 mg PO DAILY [facility] Last Admin: 04/27/25 08:41 Dose: 20 mg Documented By: LAKSHMI Acetaminophen (Ofirmev) 1,000 mg in 100 mls @ 16.7 mls/hr IV .Q6H [facility] Last Admin: 04/27/25 10:40 Dose: 16.7 mls/hr Documented By: LAKSHMI Lactulose (Lactulose 20 Gm/30 Ml Solution) 30 gm PO DAILY [facility] Last Admin: 04/27/25 08:41 Dose: 30 gm Documented By: LAKSHMI Lisinopril (Lisinopril 10 Mg Tablet) 10 mg PO DAILY [facility]; Protocol Last Admin: 04/27/25 08:41 Dose: 10 mg Documented By: LAKSHMI Loratadine (Loratadine 10 Mg Tablet) 10 mg PO DAILY [facility] Last Admin: 04/27/25 08:41 Dose: 10 mg Documented By: LAKSHMI Melatonin (Melatonin 3 Mg Tablet) 6 mg PO BEDTIME PRN PRN Reason: Insomnia Omeprazole (Omeprazole 20 Mg Capsule.Dr) 20 mg PO BID@0630,1630 [facility] Last Admin: 04/27/25 05:40 Dose: Not Given Documented By: JOHNATHAN Non-Admin Reason: Patient Refused Ondansetron HCl (Ondansetron Hcl 4 Mg/2 Ml Vial) 4 mg IVPUSH Q8H PRN PRN Reason: Nausea and Vomiting Polyethylene Glycol (Polyethylene Glycol 3350 17 Gm Powd.Pack) 17 gm PO TID PRN PRN Reason: Constipation Senna (Sennosides 8.6 Mg Tablet) 17.2 mg PO BEDTIME ON [facility] Last Admin: 04/26/25 19:55 Dose: 17.2 mg Documented By: JOHNATHAN Senna (Sennosides 8.6 Mg Tablet) 17.2 mg PO BEDTIME PRN PRN Reason: Constipation Sodium Biphosphate/Sodium Phosphate (Sodium Phosphate,[place]-Dibasic 133 Ml Enema) 133 ml [place] ONCE PRN PRN Reason: Constipation Last Admin: 04/25/25 21:36 Dose: 133 ml Documented By: KAT Sodium Chloride (0.9 % Sodium Chloride Flush 3 Ml Syringe) [facility] Last Admin: 04/27/25 07:31 Dose: Not Given Documented By: LAKSHMI Non-Admin Reason: IV Running Sucralfate (Sucralfate 1 Gm Tablet) 1 gm PO TID ON [facility] Last Admin: 04/27/25 08:41 Dose: 1 gm Documented By: LAKSHMI Tramadol HCl (Tramadol Hcl 50 Mg Tablet) 50 mg PO Q12H PRN PRN Reason: Severe Pain (Scale Score 7-10) Last Admin: 04/26/25 19:54 Dose: 50 mg Documented By: JOHNATHAN Labs 04/27/25 05:33 04/27/25 05:33 Labs: Laboratory Results - last 24 hr 04/27/25 05:33 MCV 73.7 L MCH 20.9 L MCHC 28.3 L RDW 20.9 H Plt Count 369 MPV 11.2 Immature Gran % (Auto) 0.3 Neut % (Auto) 58.6 Lymph % (Auto) 29.5 [place] % (Auto) 9.8 Eos % (Auto) 1.5 Baso % (Auto) 0.3 Lymph # (Auto) 2.7 [place] # (Auto) 0.9 Eos # (Auto) 0.1 Baso # (Auto) 0.0 Abs Immat Gran (auto) 0.03 Absolute Neuts (auto) 5.4 Absolute Nucleated RBC 0.030 H Nucleated RBC % (auto) 0.3 H Anion Gap 14 Estim Creat Clear Calc 111.5 Estimated GFR > 60 Random Glucose 76 Calcium 8.6 Total Bilirubin 0.2 AST 23 ALT 14 Alkaline Phosphatase 78 Total Protein 6.4 L Albumin 3.6 Assessment and Plan (1) Abdominal distension: Status: Acute Plan 59 year old egyptian speaking women presented to the ED with report of subacute discomfort gradually worsening abdominal pain with distention, nausea and was noted to have severe constipation. Constipation versus ileus relieving with bowel meds and enemas Acute on chronic constipation-likely s/p NG tube Bowel regimine with good effect Throat pain submandibular edema painful swallowing Check strep swab Anemia no acute blood loss check iron profile DM2 SS, ada diet HTN continue home medications Schizoaffective disorder bipolar type mild cognitive impairment- chronic mental illness and/or delirium continue home medications GERD Continue PPI DVT prophylaxis with Lovenox Full code Quality Stroke Does the patient have a stroke diagnosis?: No Reason for No Anti-thrombotic by Day Two: N/A - Med Ordered VTE Prior VTE?: No VTE Risk Level:: Medical - moderate - high VTE Device Contraindication: N/A - Device Ordered VTE Drug Contraindication: N/A - Med Ordered
[2025-04-27 13:53] LABS: Iron 32 mcg/dL (30-160); Percent Iron Saturation 8 % (15-50); Total Iron Binding Capacity 390 mcg/dL (228-428); Unsaturated Iron Binding 358 ug/dL
[2025-04-27 15:29] VITALS: BP 164/76; PULSE 75; RESP 18; TEMP 36.3; O2SAT 97
[2025-04-27 19:44] VITALS: BP 144/69; PULSE 81; RESP 18; TEMP 36.6; O2SAT 95
[2025-04-27 20:13] LABS: IDNOW Serial# 55D5AD1C; Strep A Nucleic Acid Negative (Negative)
[2025-04-28] MEDS: 0.9 % Sodium Chloride Flush 3 ML SYRINGE IVFLUSH ×4 (01:57→20:08)
[2025-04-28 03:33] VITALS: BP 152/79; PULSE 74; RESP 18; TEMP 37.1; O2SAT 94
[2025-04-28 06:38] LABS: MANUAL DIFF FLAG NO
[2025-04-28 06:48] LABS: Hematocrit 26.4 % (37.0-47.0); Hemoglobin 7.7 g/dl (12.0-16.0); Imm Gran Abs Auto 0.04 X10*3/uL (0.00-0.03); Imm Gran Pct Auto 0.4 % (0.0-0.4); Lymphocytes Absolute Auto 2.2 X10*3/uL (1.2-4.9); Mean Corpuscular HGB Conc 29.2 g/dl (31.0-35.0); Mean Corpuscular Hemoglobin 21.1 pg (27.0-33.0); Mean Corpuscular Volume 72.3 fL (80.0-98.0); NRBC Abs Auto 0.000 X10*3/uL (0.0-0.012); NRBC Pct Auto 0.0 /100WBC (0.0-0.2); Platelet Count 365 X10*3/uL (160-400); Red Blood Count 3.65 X10*6/uL (4.20-5.50); White Blood Count 9.7 X10*3/uL (4.8-10.8)
[2025-04-28 07:06] LABS: Alanine Aminotransferase 18 U/L (0-31); Albumin Level 3.8 g/dL (3.5-5.0); Alkaline Phosphatase 81 U/L (39-117); Anion Gap 13 (12-20); Aspartate Amino Transferase 18 U/L (5-31); Blood Urea Nitrogen 9 mg/dL (9-16); Calcium 8.7 mg/dL (8.4-10.2); Carbon Dioxide 27 mmol/L (22-29); Chloride 106 mmol/L (96-108); Creatinine Clr Calc Pharmacy 113.6; Estimated Glomerular Filt Rate > 60; Potassium 3.7 mmol/L (3.3-5.1); Sodium 142 mmol/L (135-145); Total Protein 6.5 g/dL (6.5-8.0)
[2025-04-28 08:14] VITALS: BP 158/65; PULSE 84; RESP 12; TEMP 36.1; O2SAT 93
[2025-04-28 08:19] VITALS: BP 158/65
--- NOTE | 2025-04-28 09:10 | P.PNGS_ITS ---
Subjective Subjective Date of Service: 04/28/25 Interval history: She continues to feel better Had BMs Tolerating liquids well Denies abdominal pain or vomiting Physical Exam 2 Vital Signs: Vital Signs: Last Vital Signs Temp 96.9 F 04/28/25 08:14 Pulse 84 04/28/25 08:14 Resp 12 04/28/25 08:14 BP 158/65 H 04/28/25 08:19 Pulse Ox 93 04/28/25 08:14 O2 Del Method Room Air 04/28/25 08:14 O2 Flow Rate 2 04/26/25 03:34 BMI result Body Mass Index 35.7 Const: Other: Sitting on recliner General: comfortable and no acute distress Resp: Effort & Inspection: normal respiratory effort Cardio: Rate: regular rate GI: Palpation (GI): Soft to palpation, not firm, nontender and no guarding Objective Data Active Medications Albuterol Sulfate (Albuterol Sulfate (0.083%) 2.5 Mg/3 Ml Vial.Neb) 2.5 mg INHALE Q6H PRN PRN Reason: Wheezing Albuterol Sulfate (Albuterol Sulfate 90 Mcg 8 Gm Inhaler) 2 puff INHALE Q4H PRN PRN Reason: Shortness Of Breath Or Wheezing Bisacodyl (Bisacodyl 10 Mg Supp.Rect) 10 mg [place] BEDTIME LAXMI Last Admin: 04/27/25 20:52 Dose: Not Given Documented By: SONIDO Non-Admin Reason: Patient Refused Calcium Carbonate (Calcium Carbonate 750 Mg Tab.Chew) 750 mg PO Q4H PRN PRN Reason: Heartburn Ceftriaxone Sodium (Ceftriaxone Sodium 1 Gm Vial) 1 gm IVPUSH Q24H LAXMI Stop: 04/29/25 02:14 Last Admin: 04/28/25 01:57 Dose: 1 gm Documented By: SONIDO Clonazepam (Clonazepam 0.5 Mg Tablet) 0.5 mg PO DAILY LAXMI Last Admin: 04/28/25 08:19 Dose: 0.5 mg Documented By: LAKSHMI Clonazepam (Clonazepam 1 Mg Tablet) 1 mg PO BEDTIME LAXMI Last Admin: 04/27/25 20:16 Dose: 1 mg Documented By: SONIDO Clozapine (Clozapine 100 Mg Tablet) 300 mg PO BEDTIME LAXMI Diltiazem HCl (Diltiazem Hcl Cd 120 Mg Cap.Er.Deg) 120 mg PO DAILY LAXMI; Protocol Last Admin: 04/28/25 08:29 Dose: Not Given Documented By: LAKSHMI Non-Admin Reason: cannot crush Divalproex Sodium (Divalproex Sodium Er 250 Mg Tab.Er.24h) 250 mg PO BEDTIME [facility] Last Admin: 04/27/25 20:24 Dose: Not Given Documented By: SONIDO Non-Admin Reason: Patient Refused Divalproex Sodium (Divalproex Sodium Er 500 Mg Tab.Er.24h) 1,000 mg PO BEDTIME [facility] Last Admin: 04/27/25 20:24 Dose: Not Given Documented By: SONIDO Non-Admin Reason: Patient Refused Docusate Sodium (Docusate Sodium 100 Mg Capsule) 100 mg PO BID PRN PRN Reason: Constipation Enoxaparin Sodium (Enoxaparin Sodium 40 Mg/0.4 Ml Syringe) 40 mg SUBCUT Q24H [facility] Last Admin: 04/28/25 08:18 Dose: 40 mg Documented By: LAKSHMI Ferrous Sulfate (Ferrous Sulfate 324 Mg Tablet.) 324 mg PO Q2D [facility] Last Admin: 04/26/25 09:23 Dose: Not Given Documented By: YAO Non-Admin Reason: Patient Refused Fluoxetine HCl (Fluoxetine Hcl 10 Mg Capsule) 10 mg PO DAILY [facility] Last Admin: 04/28/25 08:18 Dose: 10 mg Documented By: LAKSHMI Fluoxetine HCl (Fluoxetine Hcl 20 Mg Capsule) 20 mg PO DAILY [facility] Last Admin: 04/28/25 08:18 Dose: 20 mg Documented By: LAKSHMI Lactulose (Lactulose 20 Gm/30 Ml Solution) 30 gm PO DAILY [facility] Last Admin: 04/28/25 08:19 Dose: 30 gm Documented By: LAKSHMI Lisinopril (Lisinopril 10 Mg Tablet) 10 mg PO DAILY [facility]; Protocol Last Admin: 04/28/25 08:19 Dose: 10 mg Documented By: LAKSHMI Loratadine (Loratadine 10 Mg Tablet) 10 mg PO DAILY [facility] Last Admin: 04/28/25 08:19 Dose: 10 mg Documented By: LAKSHMI Melatonin (Melatonin 3 Mg Tablet) 6 mg PO BEDTIME PRN PRN Reason: Insomnia Omeprazole (Omeprazole 20 Mg Capsule.) 20 mg PO BID@0630,1630 [facility] Last Admin: 04/28/25 05:55 Dose: Not Given Documented By: SONIDO Non-Admin Reason: Patient Refused Ondansetron HCl (Ondansetron Hcl 4 Mg/2 Ml Vial) 4 mg IVPUSH Q8H PRN PRN Reason: Nausea and Vomiting Polyethylene Glycol (Polyethylene Glycol 3350 17 Gm Powd.Pack) 17 gm PO TID PRN PRN Reason: Constipation Senna (Sennosides 8.6 Mg Tablet) 17.2 mg PO BEDTIME [facility] Last Admin: 04/27/25 20:14 Dose: 17.2 mg Documented By: SONIDO Senna (Sennosides 8.6 Mg Tablet) 17.2 mg PO BEDTIME PRN PRN Reason: Constipation Sodium Biphosphate/Sodium Phosphate (Sodium Phosphate,[place]-Dibasic 133 Ml Enema) 133 ml [place] ONCE PRN PRN Reason: Constipation Last Admin: 04/25/25 21:36 Dose: 133 ml Documented By: KAT Sodium Chloride (0.9 % Sodium Chloride Flush 3 Ml Syringe) [facility] Last Admin: 04/28/25 08:18 Dose: 3 ml Documented By: LAKSHMI Sucralfate (Sucralfate 1 Gm Tablet) 1 gm PO TID [facility] Last Admin: 04/28/25 08:19 Dose: 1 gm Documented By: LAKSHMI Tramadol HCl (Tramadol Hcl 50 Mg Tablet) 50 mg PO Q12H PRN PRN Reason: Severe Pain (Scale Score 7-10) Last Admin: 04/26/25 19:54 Dose: 50 mg Documented By: JOHNATHAN Labs 04/28/25 06:25 04/28/25 06:25 Labs: Laboratory Results - last 24 hr 04/27/25 04/27/25 04/28/25 05:33 19:45 06:25 MCV 72.3 L MCH 21.1 L MCHC 29.2 L RDW 20.7 H Plt Count 365 MPV 10.6 Immature Gran % (Auto) 0.4 Neut % (Auto) 63.9 Lymph % (Auto) 22.9 [place] % (Auto) 10.9 Eos % (Auto) 1.6 Baso % (Auto) 0.3 Lymph # (Auto) 2.2 [place] # (Auto) 1.1 Eos # (Auto) 0.2 Baso # (Auto) 0.0 Abs Immat Gran (auto) 0.04 H Absolute Neuts (auto) 6.2 Absolute Nucleated RBC 0.000 Nucleated RBC % (auto) 0.0 Anion Gap 13 Estim Creat Clear Calc 113.6 Estimated GFR > 60 Random Glucose 104 Calcium 8.7 Iron 32 TIBC 390 % Saturation 8 L Unsat Iron Binding 358 Total Bilirubin 0.3 AST 18 ALT 18 Alkaline Phosphatase 81 Total Protein 6.5 Albumin 3.8 S. pyogenes GrpA GREGORIO Negative Procedures Date of Service Date of Service: 04/28/25 Progress Note: A&P Assessment and plan (1) Abdominal distension: Status: Acute Assessment and Plan: Likely secondary to ileus Symptoms have resolved Diet as tolerated Abdomen remained soft and benign She looks well overall Rest of care as per the hospitalist service Time Spent With Patient Time: Total time managing care of this patient today ____ minutes. Quality Stroke Does the patient have a stroke diagnosis?: No Reason for No Anti-thrombotic by Day Two: N/A - Med Ordered VTE Prior VTE?: No VTE Risk Level:: Medical - moderate - high VTE Device Contraindication: N/A - Device Ordered VTE Drug Contraindication: N/A - Med Ordered
--- NOTE | 2025-04-28 15:10 | HO.PM.IMPN ---
Subjective Subjective Date of Service: 04/28/25 Interval History: Patient is clinically improving with more bowel movements with aggressive bowel regimen and enemas NG tube removed Still with throat pain Review of Systems Review of Systems: Yes all other systems are reviewed and are negative Physical Exam Exam: Exam: Appearing in no acute distress lung sounds are clear to auscultation heart regular rate rhythm, clear S1, S2 positive bowel sounds, abdomen is soft, nontender neuro patient is alert x3, no focal deficits Vital Signs: Vital Signs: Last Vital Signs Temp 96.9 F 04/28/25 08:14 Pulse 84 04/28/25 08:14 Resp 12 04/28/25 08:14 BP 158/65 H 04/28/25 08:19 Pulse Ox 93 04/28/25 08:14 O2 Del Method Room Air 04/28/25 08:14 O2 Flow Rate 2 04/26/25 03:34 BMI result Body Mass Index 35.7 Objective Data Active Medications Albuterol Sulfate (Albuterol Sulfate (0.083%) 2.5 Mg/3 Ml Vial.Neb) 2.5 mg INHALE Q6H PRN PRN Reason: Wheezing Albuterol Sulfate (Albuterol Sulfate 90 Mcg 8 Gm Inhaler) 2 puff INHALE Q4H PRN PRN Reason: Shortness Of Breath Or Wheezing Bisacodyl (Bisacodyl 10 Mg Supp.Rect) 10 mg [place] BEDTIME LAXMI Last Admin: 04/27/25 20:52 Dose: Not Given Documented By: SONIDO Non-Admin Reason: Patient Refused Calcium Carbonate (Calcium Carbonate 750 Mg Tab.Chew) 750 mg PO Q4H PRN PRN Reason: Heartburn Ceftriaxone Sodium (Ceftriaxone Sodium 1 Gm Vial) 1 gm IVPUSH Q24H LAXMI Stop: 04/29/25 02:14 Last Admin: 04/28/25 01:57 Dose: 1 gm Documented By: SONIDO Clonazepam (Clonazepam 0.5 Mg Tablet) 0.5 mg PO DAILY LAXMI Last Admin: 04/28/25 08:19 Dose: 0.5 mg Documented By: LAKSHMI Clonazepam (Clonazepam 1 Mg Tablet) 1 mg PO BEDTIME LAXMI Last Admin: 04/27/25 20:16 Dose: 1 mg Documented By: SONIDO Clozapine (Clozapine 100 Mg Tablet) 300 mg PO BEDTIME [facility] Diltiazem HCl (Diltiazem Hcl Cd 120 Mg Cap.Er.Deg) 120 mg PO DAILY [facility]; Protocol Last Admin: 04/28/25 08:29 Dose: Not Given Documented By: LAKSHMI Non-Admin Reason: cannot crush Divalproex Sodium (Divalproex Sodium Er 250 Mg Tab.Er.24h) 250 mg PO BEDTIME [facility] Last Admin: 04/27/25 20:24 Dose: Not Given Documented By: SONIDO Non-Admin Reason: Patient Refused Divalproex Sodium (Divalproex Sodium Er 500 Mg Tab.Er.24h) 1,000 mg PO BEDTIME [facility] Last Admin: 04/27/25 20:24 Dose: Not Given Documented By: SONIDO Non-Admin Reason: Patient Refused Docusate Sodium (Docusate Sodium 100 Mg Capsule) 100 mg PO BID PRN PRN Reason: Constipation Enoxaparin Sodium (Enoxaparin Sodium 40 Mg/0.4 Ml Syringe) 40 mg SUBCUT Q24H [facility] Last Admin: 04/28/25 08:18 Dose: 40 mg Documented By: LAKSHMI Ferrous Sulfate (Ferrous Sulfate 324 Mg Tablet.Dr) 324 mg PO Q2D [facility] Last Admin: 04/28/25 09:50 Dose: Not Given Documented By: LAKSHMI Non-Admin Reason: Patient Refused Fluoxetine HCl (Fluoxetine Hcl 10 Mg Capsule) 10 mg PO DAILY [facility] Last Admin: 04/28/25 08:18 Dose: 10 mg Documented By: LAKSHMI Fluoxetine HCl (Fluoxetine Hcl 20 Mg Capsule) 20 mg PO DAILY [facility] Last Admin: 04/28/25 08:18 Dose: 20 mg Documented By: LAKSHMI Lactulose (Lactulose 20 Gm/30 Ml Solution) 30 gm PO DAILY [facility] Last Admin: 04/28/25 08:19 Dose: 30 gm Documented By: LAKSHMI Lisinopril (Lisinopril 10 Mg Tablet) 10 mg PO DAILY [facility]; Protocol Last Admin: 04/28/25 08:19 Dose: 10 mg Documented By: LAKSHMI Loratadine (Loratadine 10 Mg Tablet) 10 mg PO DAILY [facility] Last Admin: 04/28/25 08:19 Dose: 10 mg Documented By: LAKSHMI Melatonin (Melatonin 3 Mg Tablet) 6 mg PO BEDTIME PRN PRN Reason: Insomnia Omeprazole (Omeprazole 20 Mg Capsule.) 20 mg PO BID@2730,0510 [facility] Last Admin: 04/28/25 05:55 Dose: Not Given Documented By: SONIDO Non-Admin Reason: Patient Refused Ondansetron HCl (Ondansetron Hcl 4 Mg/2 Ml Vial) 4 mg IVPUSH Q8H PRN PRN Reason: Nausea and Vomiting Polyethylene Glycol (Polyethylene Glycol 3350 17 Gm Powd.Pack) 17 gm PO TID PRN PRN Reason: Constipation Senna (Sennosides 8.6 Mg Tablet) 17.2 mg PO BEDTIME [facility] Last Admin: 04/27/25 20:14 Dose: 17.2 mg Documented By: SONIDO Senna (Sennosides 8.6 Mg Tablet) 17.2 mg PO BEDTIME PRN PRN Reason: Constipation Sodium Biphosphate/Sodium Phosphate (Sodium Phosphate,[place]-Dibasic 133 Ml Enema) 133 ml [place] ONCE PRN PRN Reason: Constipation Last Admin: 04/25/25 21:36 Dose: 133 ml Documented By: KAT Sodium Chloride (0.9 % Sodium Chloride Flush 3 Ml Syringe) 3 ml IVFLUSH QSHIFT [facility] Last Admin: 04/28/25 08:18 Dose: 3 ml Documented By: LAKSHMI Sucralfate (Sucralfate 1 Gm Tablet) 1 gm PO TID [facility] Last Admin: 04/28/25 08:19 Dose: 1 gm Documented By: LAKSHMI Tramadol HCl (Tramadol Hcl 50 Mg Tablet) 50 mg PO Q12H PRN PRN Reason: Severe Pain (Scale Score 7-10) Last Admin: 04/26/25 19:54 Dose: 50 mg Documented By: JOHNATHAN Labs 04/28/25 06:25 04/28/25 06:25 Labs: Laboratory Results - last 24 hr 04/27/25 04/28/25 19:45 06:25 MCV 72.3 L MCH 21.1 L MCHC 29.2 L RDW 20.7 H Plt Count 365 MPV 10.6 Immature Gran % (Auto) 0.4 Neut % (Auto) 63.9 Lymph % (Auto) 22.9 [place] % (Auto) 10.9 Eos % (Auto) 1.6 Baso % (Auto) 0.3 Lymph # (Auto) 2.2 [place] # (Auto) 1.1 Eos # (Auto) 0.2 Baso # (Auto) 0.0 Abs Immat Gran (auto) 0.04 H Absolute Neuts (auto) 6.2 Absolute Nucleated RBC 0.000 Nucleated RBC % (auto) 0.0 Anion Gap 13 Estim Creat Clear Calc 113.6 Estimated GFR > 60 Random Glucose 104 Calcium 8.7 Total Bilirubin 0.3 AST 18 ALT 18 Alkaline Phosphatase 81 Total Protein 6.5 Albumin 3.8 S. pyogenes GrpA GREGORIO Negative Assessment and Plan (1) Abdominal distension: Status: Acute Plan 59 year old [place] ar[place]ian speaking women presented to the ED with report of subacute discomfort gradually worsening abdominal pain with distention, nausea and was noted to have severe constipation. blood after wiping. discussed with [employer], get ua to r/o hematuria. if not get pelvic us. Constipation versus ileus relieving with bowel meds and enemas Acute on chronic constipation-likely s/p NG tube Bowel regimine with good effect Throat pain submandibular edema, no abscess painful swallowing neg strep swab Anemia no acute blood loss check iron profile DM2 SS, ada diet HTN continue home medications Schizoaffective disorder bipolar type mild cognitive impairment- chronic mental illness and/or delirium continue home medications GERD Continue PPI DVT prophylaxis with Lovenox Full code Quality Stroke Does the patient have a stroke diagnosis?: No Reason for No Anti-thrombotic by Day Two: N/A - Med Ordered VTE Prior VTE?: No VTE Risk Level:: Medical - moderate - high VTE Device Contraindication: N/A - Device Ordered VTE Drug Contraindication: N/A - Med Ordered
[2025-04-28 15:42] LABS: Hemoglobin A1C 86.2317 umol/L; Total Hemoglobin (HGBA1C) 2007.0691 umol/L
[2025-04-28 16:21] VITALS: BP 137/92; PULSE 84; RESP 18; TEMP 36.3; O2SAT 94
--- NOTE | 2025-04-28 16:29 | P.CDIM_ITS ---
PROVIDER RESPONSE TEXT: To clarify, the appropriate diagnosis supported by the clinical indicators: Ileus: paralytic QUERY TEXT: PHYSICIAN'S DOCUMENTATION REQUEST Date of Query: 04/28/2025 08:41 AM EDT Patient Name: Brenna Hope Admit Date: 04/24/2025 Dear Olya Beckwith [employer], A review of the medical record indicates additional documentation may be needed. Please review below and update the documentation accordingly. Clinical Indicators: Progress notes - Constipation vs. Ileus Relieving with bowel meds and enemas Arrived Ed with subacute discomfort gradually worsening abdominal pain with distention, nausea and noted to have severe constipation. General surgery 04/24/25 - CAT scan shows gaseous distention of the entire colon tapering in the distal sigmoid. There is no obvious transition point. Based on the above, could you clarify any further specifics to the noted Ileus? Ileus Adynamic, obstructive, paralytic, mechanical, neurogenic, gallstone etc. Other specified Other (explain) Clinically unable to determine (explain) Thank you, Nafisa Glass, CCS, CDIS Use of terms such as suspected, likely, concern for, or probable (associated with a specific diagnosis that is being evaluated, monitored, or treated as if it exists) are acceptable and can be coded in the inpatient setting, when documented at the time of discharge. Please use your independent medical judgment in providing your response. THIS QUERY IS PART OF THE PERMANENT MEDICAL RECORD
[2025-04-28 17:48] LABS: Appearance Urine Clear; Glucose Urine UA Negative (Negative); PH 8.5 (5.0-9.0); Specific Gravity - Urine 1.015 (1.005-1.025); UMIC TRIGGER UA YES
[2025-04-28 19:49] VITALS: BP 145/75; PULSE 87; RESP 18; TEMP 36.3; O2SAT 93
[2025-04-28] MEDS: Divalproex Sodium ER 250 MG TAB.ER.24H PO (20:07)
[2025-04-29 03:35] VITALS: BP 116/53; PULSE 78; RESP 18; TEMP 37.2; O2SAT 94
[2025-04-29 05:52] LABS: MANUAL DIFF FLAG NO
[2025-04-29 06:02] LABS: Hematocrit 27.4 % (37.0-47.0); Hemoglobin 8.0 g/dl (12.0-16.0); Imm Gran Abs Auto 0.03 X10*3/uL (0.00-0.03); Imm Gran Pct Auto 0.3 % (0.0-0.4); Lymphocytes Absolute Auto 2.7 X10*3/uL (1.2-4.9); Mean Corpuscular HGB Conc 29.2 g/dl (31.0-35.0); Mean Corpuscular Hemoglobin 21.1 pg (27.0-33.0); Mean Corpuscular Volume 72.1 fL (80.0-98.0); NRBC Abs Auto 0.000 X10*3/uL (0.0-0.012); NRBC Pct Auto 0.0 /100WBC (0.0-0.2); Platelet Count 374 X10*3/uL (160-400); Red Blood Count 3.80 X10*6/uL (4.20-5.50); White Blood Count 8.6 X10*3/uL (4.8-10.8)
[2025-04-29 06:15] LABS: Alanine Aminotransferase 17 U/L (0-31); Albumin Level 3.8 g/dL (3.5-5.0); Alkaline Phosphatase 83 U/L (39-117); Anion Gap 12 (12-20); Aspartate Amino Transferase 17 U/L (5-31); Blood Urea Nitrogen 12 mg/dL (9-16); Calcium 8.6 mg/dL (8.4-10.2); Carbon Dioxide 26 mmol/L (22-29); Chloride 107 mmol/L (96-108); Creatinine Clr Calc Pharmacy 111.5; Estimated Glomerular Filt Rate > 60; Potassium 3.9 mmol/L (3.3-5.1); Sodium 141 mmol/L (135-145); Total Protein 6.5 g/dL (6.5-8.0)
[2025-04-29 07:19] VITALS: BP 139/66; PULSE 69; RESP 18; TEMP 36.9; O2SAT 93
--- NOTE | 2025-04-29 08:11 | PM.PNGS ---
Subjective Subjective Date of Service: 04/29/25 Interval history: Feels well Tolerating diet Has BMs and flatus Physical Exam Vital Signs: Vital Signs: Last Vital Signs Temp 98.5 F 04/29/25 07:19 Pulse 69 04/29/25 07:19 Resp 18 04/29/25 07:19 BP 139/66 04/29/25 07:19 Pulse Ox 93 04/29/25 07:19 O2 Del Method Room Air 04/29/25 07:19 O2 Flow Rate 2 04/26/25 03:34 BMI result Body Mass Index 35.7 Const: General: comfortable and no acute distress Resp: Effort & Inspection: normal respiratory effort Cardio: Rate: regular rate GI: Palpation (GI): Soft to palpation, not firm and nontender Objective Data Active Medications Albuterol Sulfate (Albuterol Sulfate (0.083%) 2.5 Mg/3 Ml Vial.Neb) 2.5 mg INHALE Q6H PRN PRN Reason: Wheezing Albuterol Sulfate (Albuterol Sulfate 90 Mcg 8 Gm Inhaler) 2 puff INHALE Q4H PRN PRN Reason: Shortness Of Breath Or Wheezing Bisacodyl (Bisacodyl 10 Mg Supp.Rect) 10 mg [place] BEDTIME LAXMI Last Admin: 04/28/25 20:17 Dose: Not Given Documented By: SONIDO Non-Admin Reason: Patient Refused Calcium Carbonate (Calcium Carbonate 750 Mg Tab.Chew) 750 mg PO Q4H PRN PRN Reason: Heartburn Clonazepam (Clonazepam 0.5 Mg Tablet) 0.5 mg PO DAILY LAXMI Last Admin: 04/28/25 08:19 Dose: 0.5 mg Documented By: LAKSHMI Clonazepam (Clonazepam 1 Mg Tablet) 1 mg PO BEDTIME LAXMI Last Admin: 04/28/25 20:06 Dose: 1 mg Documented By: SONIDO Clozapine (Clozapine 100 Mg Tablet) 300 mg PO BEDTIME LAXMI Last Admin: 04/28/25 20:06 Dose: 300 mg Documented By: SONIDO Diltiazem HCl (Diltiazem Hcl Cd 120 Mg Cap.Er.Deg) 120 mg PO DAILY [facility]; Protocol Last Admin: 04/28/25 08:29 Dose: Not Given Documented By: LAKSHMI Non-Admin Reason: cannot crush Divalproex Sodium (Divalproex Sodium Er 250 Mg Tab.Er.24h) 250 mg PO BEDTIME [facility] Last Admin: 04/28/25 20:07 Dose: 250 mg Documented By: SONIDO Divalproex Sodium (Divalproex Sodium Er 500 Mg Tab.Er.24h) 1,000 mg PO BEDTIME [facility] Last Admin: 04/28/25 20:14 Dose: Not Given Documented By: SONIDO Non-Admin Reason: Patient Refused Docusate Sodium (Docusate Sodium 100 Mg Capsule) 100 mg PO BID PRN PRN Reason: Constipation Enoxaparin Sodium (Enoxaparin Sodium 40 Mg/0.4 Ml Syringe) 40 mg SUBCUT Q24H [facility] Last Admin: 04/28/25 08:18 Dose: 40 mg Documented By: LAKSHMI Ferrous Sulfate (Ferrous Sulfate 324 Mg Tablet.) 324 mg PO Q2D [facility] Last Admin: 04/28/25 09:50 Dose: Not Given Documented By: LAKSHMI Non-Admin Reason: Patient Refused Fluoxetine HCl (Fluoxetine Hcl 10 Mg Capsule) 10 mg PO DAILY [facility] Last Admin: 04/28/25 08:18 Dose: 10 mg Documented By: LAKSHMI Fluoxetine HCl (Fluoxetine Hcl 20 Mg Capsule) 20 mg PO DAILY [facility] Last Admin: 04/28/25 08:18 Dose: 20 mg Documented By: LAKSHMI Lactulose (Lactulose 20 Gm/30 Ml Solution) 30 gm PO DAILY [facility] Last Admin: 04/28/25 08:19 Dose: 30 gm Documented By: LAKSHMI Lisinopril (Lisinopril 10 Mg Tablet) 10 mg PO DAILY [facility]; Protocol Last Admin: 04/28/25 08:19 Dose: 10 mg Documented By: LAKSHMI Loratadine (Loratadine 10 Mg Tablet) 10 mg PO DAILY [facility] Last Admin: 04/28/25 08:19 Dose: 10 mg Documented By: LAKSHMI Melatonin (Melatonin 3 Mg Tablet) 6 mg PO BEDTIME PRN PRN Reason: Insomnia Omeprazole (Omeprazole 20 Mg Capsule.) 20 mg PO BID@0630,1630 [facility] Last Admin: 04/29/25 05:34 Dose: 20 mg Documented By: SONIDO Ondansetron HCl (Ondansetron Hcl 4 Mg/2 Ml Vial) 4 mg IVPUSH Q8H PRN PRN Reason: Nausea and Vomiting Polyethylene Glycol (Polyethylene Glycol 3350 17 Gm Powd.Pack) 17 gm PO TID PRN PRN Reason: Constipation Senna (Sennosides 8.6 Mg Tablet) 17.2 mg PO BEDTIME [facility] Last Admin: 04/28/25 20:06 Dose: 17.2 mg Documented By: SONIDO Senna (Sennosides 8.6 Mg Tablet) 17.2 mg PO BEDTIME PRN PRN Reason: Constipation Sodium Biphosphate/Sodium Phosphate (Sodium Phosphate,[place]-Dibasic 133 Ml Enema) 133 ml [place] ONCE PRN PRN Reason: Constipation Last Admin: 04/25/25 21:36 Dose: 133 ml Documented By: KAT Sodium Chloride (0.9 % Sodium Chloride Flush 3 Ml Syringe) 3 ml IVFLUSH [facility] Last Admin: 04/28/25 20:08 Dose: 3 ml Documented By: SONIDO Sucralfate (Sucralfate 1 Gm Tablet) 1 gm PO TID [facility] Last Admin: 04/28/25 20:06 Dose: 1 gm Documented By: SONIDO Tramadol HCl (Tramadol Hcl 50 Mg Tablet) 50 mg PO Q12H PRN PRN Reason: Severe Pain (Scale Score 7-10) Last Admin: 04/26/25 19:54 Dose: 50 mg Documented By: JOHNATHAN Labs 04/29/25 05:24 04/29/25 05:24 Labs: Laboratory Results - last 24 hr 04/28/25 04/28/25 04/29/25 06:25 17:30 05:24 MCV 72.1 L MCH MCHC RDW Plt Count MPV Immature Gran % (Auto) Neut % (Auto) Lymph % (Auto) [place] % (Auto) Eos % (Auto) Baso % (Auto) Lymph # (Auto) [place] # (Auto) Eos # (Auto) Baso # (Auto) Abs Immat Gran (auto) Absolute Neuts (auto) Absolute Nucleated RBC Nucleated RBC % (auto) Anion Gap Estim Creat Clear Calc Estimated GFR Random Glucose Estimat Average Glucose 128 Hemoglobin A1c % 6.1 H Calcium Total Bilirubin AST ALT Alkaline Phosphatase Total Protein Albumin Urine Color Yellow Urine Appearance Clear Urine pH 8.5 Ur Specific [place] 1.015 Urine Protein Negative Urine Glucose (UA) Negative Urine Ketones Negative Urine Blood Trace H Urine Nitrite Negative Ur Leukocyte Esterase Negative Urine RBC 6-10 H Urine WBC 0-5 Ur Squamous Epith Cells 3-5 Urine Bacteria None Seen Hyaline Casts 0-2 04/29/25 04/29/25 04/29/25 05:24 05:24 05:24 MCV Cancelled MCH 21.1 L Cancelled MCHC 29.2 L Cancelled RDW 21.0 H Plt Count MPV Immature Gran % (Auto) Neut % (Auto) Lymph % (Auto) [place] % (Auto) Eos % (Auto) Baso % (Auto) Lymph # (Auto) [place] # (Auto) Eos # (Auto) Baso # (Auto) Abs Immat Gran (auto) Absolute Neuts (auto) Absolute Nucleated RBC Nucleated RBC % (auto) Anion Gap Estim Creat Clear Calc Estimated GFR Random Glucose Estimat Average Glucose Hemoglobin A1c % Calcium Total Bilirubin AST ALT Alkaline Phosphatase Total Protein Albumin Urine Color Urine Appearance Urine pH Ur Specific [place] Urine Protein Urine Glucose (UA) Urine Ketones Urine Blood Urine Nitrite Ur Leukocyte Esterase Urine RBC Urine WBC Ur Squamous Epith Cells Urine Bacteria Hyaline Casts 04/29/25 04/29/25 04/29/25 05:24 05:24 05:24 MCV MCH MCHC RDW Cancelled Plt Count 374 Cancelled MPV 10.8 Cancelled Immature Gran % (Auto) 0.3 Neut % (Auto) 56.4 Lymph % (Auto) 31.5 [place] % (Auto) 10.1 Eos % (Auto) 1.4 Baso % (Auto) 0.3 Lymph # (Auto) 2.7 [place] # (Auto) 0.9 Eos # (Auto) 0.1 Baso # (Auto) 0.0 Abs Immat Gran (auto) 0.03 Absolute Neuts (auto) 4.9 Absolute Nucleated RBC 0.000 Nucleated RBC % (auto) Anion Gap Estim Creat Clear Calc Estimated GFR Random Glucose Estimat Average Glucose Hemoglobin A1c % Calcium Total Bilirubin AST ALT Alkaline Phosphatase Total Protein Albumin Urine Color Urine Appearance Urine pH Ur Specific [place] Urine Protein Urine Glucose (UA) Urine Ketones Urine Blood Urine Nitrite Ur Leukocyte Esterase Urine RBC Urine WBC Ur Squamous Epith Cells Urine Bacteria Hyaline Casts 04/29/25 04/29/25 05:24 05:24 MCV MCH MCHC RDW Plt Count MPV Immature Gran % (Auto) Neut % (Auto) Lymph % (Auto) [place] % (Auto) Eos % (Auto) Baso % (Auto) Lymph # (Auto) [place] # (Auto) Eos # (Auto) Baso # (Auto) Abs Immat Gran (auto) Absolute Neuts (auto) Absolute Nucleated RBC Cancelled Nucleated RBC % (auto) 0.0 Cancelled Anion Gap 12 Estim Creat Clear Calc 111.5 Estimated GFR > 60 Random Glucose 116 H Estimat Average Glucose Hemoglobin A1c % Calcium 8.6 Total Bilirubin 0.2 AST 17 ALT 17 Alkaline Phosphatase 83 Total Protein 6.5 Albumin 3.8 Urine Color Urine Appearance Urine pH Ur Specific Falcon Urine Protein Urine Glucose (UA) Urine Ketones Urine Blood Urine Nitrite Ur Leukocyte Esterase Urine RBC Urine WBC Ur Squamous Epith Cells Urine Bacteria Hyaline Casts Procedures Date of Service Date of Service: 04/29/25 Progress Note: A&P Assessment and plan (1) Abdominal distension: Status: Acute Assessment and Plan: Symptoms have resolved Good GI functions Looks well overall Abdomen is soft and benign She says she is being discharged to rehab today Time Spent With Patient Time: Total time managing care of this patient today ____ minutes. Quality Stroke Does the patient have a stroke diagnosis?: No Reason for No Anti-thrombotic by Day Two: N/A - Med Ordered VTE Prior VTE?: No VTE Risk Level:: Medical - moderate - high VTE Device Contraindication: N/A - Device Ordered VTE Drug Contraindication: N/A - Med Ordered
[2025-04-29] MEDS: 0.9 % Sodium Chloride Flush 3 ML SYRINGE IVFLUSH (09:05)
[2025-04-29] MEDS: dilTIAZem HCL CD 120 MG CAP.ER.DEG PO (09:05)
--- NOTE | 2025-04-29 11:07 | MHC.CM.PN ---
Patient medically cleared for dc to [facility]. BLS transport scheduled for 2pm. AEROSPACE MANAGER, RN, patient and patient's COMMERCIAL PORTFOLIO MANAGER are aware.
[2025-04-29 13:37] VITALS: BP 135/66; PULSE 75; RESP 16; TEMP 36.3; O2SAT 95
--- NOTE | 2025-04-29 13:58 | P.DS_ITS ---
DS: Providers Provider Date of Service: 04/29/25 Date of admission: 04/24/25 01:21 Date of discharge: 04/29/25 Primary care physician: Donny Gallegos MD Consults: 04/24/25 01:38 Consult to General Surgery Routine Consulting Provider: [facility] [place] [facility] General Surgeons Reason for consultation: ileus vs SBO Has provider been notified: Yes DS: Diagnosis Discharge Diagnosis (1) Abdominal distension: Status: Acute DS: Summary Hospital Course Hospital Course: History and physical as per admitting provider. Pt is a 59 yo female, arabic speaking only with PMH GERD, Ileus, Constipation, NIDDM, Hepatic steatosis, HLD, hypertension, UTI, asthma, osteoarthritis, right knee replacement, schizophrenia, pneumonia/COVID presents to the ED with report of 3 days of abdominal pain with distention, nausea but no vomiting. Patient does indicate that she has a chronic disposition with constipation. Patient states she did have a bowel movement yesterday which was soft and formed. Patient also reported when urinating she noticed blood on the tissue paper only. She did not notice blood in the commode. Patient does report history of chronic UTI. Patient has not had a recent UTI and denies any burning or pain with urination. Patient is having no abnormal vaginal discharge. Patient denies any history of alcohol use now or remotely. Patient is a nonsmoker and does not use marijuana or illicit drugs. Patient denies history of hepatitis-B or C. Workup in the emergency department included a CT of the abdomen and pelvis which identified possible ileus with no evidence of small-bowel obstruction, cholecystitis, diverticulitis. Lactic acid is pending. Patient has no leukocytosis. Hemodynamics are stable with no fever. Based on clinical exam patient agreed to NG tube placement to relieve her nausea. In addition patient received narcotics in the emergency department which will be held based on patient's current distention and symptoms. 59-year-old woman treated for constipation found to have ileus requiring bowel meds and enemas. Patient has a history of chronic constipation. She is status post NG tube. Bowel regimen with good effect. Patient should continue this outpatient. She also had throat pain with submandibular edema but no abscess on CAT scan. Strep swab negative. No active infection no intervention at this time. Patient noted some blood after wiping. UA did not no gross hematuria. Patient should follow up with pcb design engineer outpatient for further management of this Microcytic Anemia. No acute blood loss, normal iron. No need for transfusion during hospitalization Diabetes mellitus type 2. Continue home medications Hypertension. Continue home medications Schizoaffective disorder/bipolar. Mild cognitive impairment. Continue home me dications GERD. Continue PPI Less than 30 day stay Time Attestation Discharge Coordination Time (in mins): 45 Quality: Safe Use of Opioids Does Pt have an Active Cancer Diagnosis on the Problem List?: No Quality: Stroke Does the patient have a stroke diagnosis?: No Physical Exam Exam: Exam: Appearing in no acute distress head is normocephalic atraumatic eyes pupils are PERRLA sclera is anicteric mouth throat mucous membranes are intact and moist neck is supple no lymphadenopathy, no JVD noted lung sounds are clear to auscultation heart regular rate rhythm, clear S1, S2 positive bowel sounds, abdomen is soft, nontender neuro patient is alert x3, no focal deficits Vital Signs: Vital Signs: Last Vital Signs Temp 97.3 F 04/29/25 13:37 Pulse 75 04/29/25 13:37 Resp 16 04/29/25 13:37 BP 135/66 04/29/25 13:37 Pulse Ox 95 04/29/25 13:37 O2 Del Method Room Air 04/29/25 13:37 O2 Flow Rate 2 04/26/25 03:34 BMI result Body Mass Index 35.7 DS: Data Data Completed and Pending Completed studies during hospitalization [Text1]: Procedures Excision of Duodenum, Via Natural or Artificial Opening Endoscopic, Diagnostic (03/31/24) Excision of Stomach, Pylorus, Via Natural or Artificial Opening Endoscopic, Diagnostic (03/31/24) Inspection of Lower Intestinal Tract, Via Natural or Artificial Opening Endoscopic (03/31/24) Transfusion of Nonautologous Red Blood Cells into Peripheral Vein, Percutaneous Approach (03/31/24) Labs on day of discharge: Laboratory Results - last 24 hr 04/28/25 04/28/25 04/29/25 06:25 17:30 05:24 WBC 8.6 RBC Hgb Hct MCV MCH MCHC RDW Plt Count MPV Immature Gran % (Auto) Neut % (Auto) Lymph % (Auto) [place] % (Auto) Eos % (Auto) Baso % (Auto) Lymph # (Auto) [place] # (Auto) Eos # (Auto) Baso # (Auto) Abs Immat Gran (auto) Absolute Neuts (auto) Absolute Nucleated RBC Nucleated RBC % (auto) Sodium Potassium Chloride Carbon Dioxide Anion Gap BUN Creatinine Estim Creat Clear Calc Estimated GFR Random Glucose Estimat Average Glucose 128 Hemoglobin A1c % 6.1 H Calcium Total Bilirubin AST ALT Alkaline Phosphatase Total Protein Albumin Urine Color Yellow Urine Appearance Clear Urine pH 8.5 Ur Specific [place] 1.015 Urine Protein Negative Urine Glucose (UA) Negative Urine Ketones Negative Urine Blood Trace H Urine Nitrite Negative Ur Leukocyte Esterase Negative Urine RBC 6-10 H Urine WBC 0-5 Ur Squamous Epith Cells 3-5 Urine Bacteria None Seen Hyaline Casts 0-2 04/29/25 04/29/25 04/29/25 05:24 05:24 05:24 WBC Cancelled RBC 3.80 L Cancelled Hgb 8.0 L Cancelled Hct 27.4 L MCV MCH MCHC RDW Plt Count MPV Immature Gran % (Auto) Neut % (Auto) Lymph % (Auto) [place] % (Auto) Eos % (Auto) Baso % (Auto) Lymph # (Auto) [place] # (Auto) Eos # (Auto) Baso # (Auto) Abs Immat Gran (auto) Absolute Neuts (auto) Absolute Nucleated RBC Nucleated RBC % (auto) Sodium Potassium Chloride Carbon Dioxide Anion Gap BUN Creatinine Estim Creat Clear Calc Estimated GFR Random Glucose Estimat Average Glucose Hemoglobin A1c % Calcium Total Bilirubin AST ALT Alkaline Phosphatase Total Protein Albumin Urine Color Urine Appearance Urine pH Ur Specific [place] Urine Protein Urine Glucose (UA) Urine Ketones Urine Blood Urine Nitrite Ur Leukocyte Esterase Urine RBC Urine WBC Ur Squamous Epith Cells Urine Bacteria Hyaline Casts 04/29/25 04/29/25 04/29/25 05:24 05:24 05:24 WBC RBC Hgb Hct Cancelled MCV 72.1 L Cancelled MCH 21.1 L Cancelled MCHC 29.2 L RDW Plt Count MPV Immature Gran % (Auto) Neut % (Auto) Lymph % (Auto) [place] % (Auto) Eos % (Auto) Baso % (Auto) Lymph # (Auto) [place] # (Auto) Eos # (Auto) Baso # (Auto) Abs Immat Gran (auto) Absolute Neuts (auto) Absolute Nucleated RBC Nucleated RBC % (auto) Sodium Potassium Chloride Carbon Dioxide Anion Gap BUN Creatinine Estim Creat Clear Calc Estimated GFR Random Glucose Estimat Average Glucose Hemoglobin A1c % Calcium Total Bilirubin AST ALT Alkaline Phosphatase Total Protein Albumin Urine Color Urine Appearance Urine pH Ur Specific [place] Urine Protein Urine Glucose (UA) Urine Ketones Urine Blood Urine Nitrite Ur Leukocyte Esterase Urine RBC Urine WBC Ur Squamous Epith Cells Urine Bacteria Hyaline Casts 04/29/25 04/29/25 04/29/25 05:24 05:24 05:24 WBC RBC Hgb Hct MCV MCH MCHC Cancelled RDW 21.0 H Cancelled Plt Count 374 Cancelled MPV 10.8 Immature Gran % (Auto) Neut % (Auto) Lymph % (Auto) [place] % (Auto) Eos % (Auto) Baso % (Auto) Lymph # (Auto) [place] # (Auto) Eos # (Auto) Baso # (Auto) Abs Immat Gran (auto) Absolute Neuts (auto) Absolute Nucleated RBC Nucleated RBC % (auto) Sodium Potassium Chloride Carbon Dioxide Anion Gap BUN Creatinine Estim Creat Clear Calc Estimated GFR Random Glucose Estimat Average Glucose Hemoglobin A1c % Calcium Total Bilirubin AST ALT Alkaline Phosphatase Total Protein Albumin Urine Color Urine Appearance Urine pH Ur Specific [place] Urine Protein Urine Glucose (UA) Urine Ketones Urine Blood Urine Nitrite Ur Leukocyte Esterase Urine RBC Urine WBC Ur Squamous Epith Cells Urine Bacteria Hyaline Casts 04/29/25 04/29/25 04/29/25 05:24 05:24 05:24 WBC RBC Hgb Hct MCV MCH MCHC RDW Plt Count MPV Cancelled Immature Gran % (Auto) 0.3 Neut % (Auto) 56.4 Lymph % (Auto) 31.5 [place] % (Auto) 10.1 Eos % (Auto) 1.4 Baso % (Auto) 0.3 Lymph # (Auto) 2.7 [place] # (Auto) 0.9 Eos # (Auto) 0.1 Baso # (Auto) 0.0 Abs Immat Gran (auto) 0.03 Absolute Neuts (auto) 4.9 Absolute Nucleated RBC 0.000 Cancelled Nucleated RBC % (auto) 0.0 Cancelled Sodium 141 Potassium 3.9 Chloride 107 Carbon Dioxide 26 Anion Gap 12 BUN 12 Creatinine 0.54 Estim Creat Clear Calc 111.5 Estimated GFR > 60 Random Glucose 116 H Estimat Average Glucose Hemoglobin A1c % Calcium 8.6 Total Bilirubin 0.2 AST 17 ALT 17 Alkaline Phosphatase 83 Total Protein 6.5 Albumin 3.8 Urine Color Urine Appearance Urine pH Ur Specific [place] Urine Protein Urine Glucose (UA) Urine Ketones Urine Blood Urine Nitrite Ur Leukocyte Esterase Urine RBC Urine WBC Ur Squamous Epith Cells Urine Bacteria Hyaline Casts Discharge Plan Discharge Anticipated Discharge Date/Time: 04/29/25 13:41 Patient Disposition: Xfer [facility] Discharge Diagnosis: Ileus Referrals: [facility] [place] [Outside] - 1 Day Referral Note: short term rehab Name,MD Donny [Primary Care Provider, Internal Medicine] - 1 Week Abner Cleaning MD [Physician, [facility]] - 1 Week Referral Note: Vaginal bleeding Discharge Medications: Continued albuterol sulfate [Ventolin HFA] 90 mcg/actuation HFA aerosol inhaler 2 puff INHALATION Q4-6H PRN (Reason: Shortness Of Breath Or Wheezing) sucralfate 1 gram tablet 1 g PO TID tramadol 50 mg tablet 50 mg PO Q12H PRN (Reason: Severe Pain (Scale Score 7-10)) clonazepam 1 mg tablet 1 mg PO BEDTIME Qty: 30 0RF montelukast 10 mg tablet 10 mg PO DAILY Qty: 30 0RF diltiazem HCl 120 mg capsule,extended release 12 hr 120 mg PO DAILY fluoxetine 10 mg capsule 10 mg PO DAILY polyethylene glycol 3350 [Miralax] 17 gram/dose powder 17 g PO TID PRN (Reason: Constipation) metformin 500 mg tablet extended release 24 hr 500 mg PO BIDWM albuterol sulfate 2.5 mg /3 mL (0.083 %) solution for nebulization 2.5 mg inhalation Q6H PRN (Reason: wheezing) ferrous sulfate 325 mg (65 mg iron) tablet,delayed release (DR/EC) 325 mg PO Q2D sennosides [senna] 8.6 mg tablet 17.2 mg PO BEDTIME PRN (Reason: constipation) clonazepam 0.5 mg tablet 0.5 mg PO DAILY lisinopril 10 mg tablet 10 mg PO DAILY atorvastatin 40 mg tablet 40 mg PO BEDTIME omeprazole 20 mg capsule,delayed release(DR/EC) 20 mg PO BID@0630,1630 loratadine 10 mg tablet 10 mg PO DAILY docusate sodium 100 mg capsule 100 mg PO BID PRN (Reason: Constipation) clozapine 100 mg tablet 300 mg PO BEDTIME Patient Comments: TDD = 325 MG divalproex 250 mg tablet extended release 24 hr 250 mg PO BEDTIME Rx Instructions: TDD= 1250 MG lactulose 10 gram/15 mL solution 45 ml PO DAILY fluoxetine 20 mg capsule 20 mg PO DAILY divalproex 500 mg tablet extended release 24 hr 1,000 mg PO BEDTIME Discharge Orders: Discharge Order (Routine); Ordered 04/29/25 Ordered By: Olya Becwkith Diet: Advance to usual diet Activity on Discharge: As tolerated Stand Alone Forms: Patient Portal Discharge page Print Language: Georgian Care Plan Goals: Follow up with pcb design engineer as needed for mild vaginal bleeding Health Concerns: Ileus Plan of Treatment: Follow up with primary care provider as needed Take all medications as prescribed Assessment: See discharge summary
== END 2025-04-29 14:53 | disposition skilled nursing facility (03) | DRG 247 ==
LOC: HO.ED 04-24 01:18 → HO.EDOVER 04-24 01:26 → HO.S3 04-24 10:34
PROVIDERS: Nurse Practitioner Family; Student in an Organized Health Care Education/Training Program; Admitting Provider Internal Medicine; Emergency Provider Emergency Medicine; PCP Internal Medicine Geriatric Medicine; Visit Provider Nurse Practitioner Acute Care
DX: K56.0 Paralytic ileus (principal); F25.0 Schizoaffective disorder, bipolar type; E11.9 Type 2 diabetes mellitus without complications; F32.A Depression, unspecified; E66.01 Morbid (severe) obesity due to excess calories; D50.9 Iron deficiency anemia, unspecified; I10 Essential (primary) hypertension; K59.09 Other constipation; N39.0 Urinary tract infection, site not specified; K21.9 Gastro-esophageal reflux disease without esophagitis; R07.0 Pain in throat; F41.9 Anxiety disorder, unspecified; R53.81 Other malaise; Z68.35 Body mass index [BMI] 35.0-35.9, adult; Z71.3 Dietary counseling and surveillance; Z91.148 Patient's other noncompliance with medication regimen for other reason; Z87.440 Personal history of urinary (tract) infections; Z79.84 Long term (current) use of oral hypoglycemic drugs; Z87.891 Personal history of nicotine dependence; Z79.899 Other long term (current) drug therapy
CPT/HCPCS: 36415; 70491; 71045; 74177; 76705; 80048; 80053; 80076; 81001; 82140; 82272; 83036; 83540; 83605; 83690; 83735; 85025; 85610; 86850; 86900; 86901; 87086; 87651; 97162; 97530; 99285; J0131; J0696; J1171; J1650; J2270; J2405; J2470; J7120; Q9967

== ENCOUNTER → 2025-04-23 22:08 | Outpatient (BNV) | payer MEDICAID, SELFPAY | PROVIDERS: Admitting Provider Internal Medicine; Emergency Provider Emergency Medicine; Visit Provider Radiology Neuroradiology | DX: K56.41 Fecal impaction (principal) | CPT/HCPCS: 74177 ==

== ENCOUNTER 2025-04-24 01:21 | Outpatient (BNV) | payer MEDICAID, SELFPAY | END 2025-04-25 16:44 | PROVIDERS: Admitting Provider Internal Medicine; Emergency Provider Emergency Medicine; PCP Internal Medicine Geriatric Medicine; Visit Provider Radiology Diagnostic Radiology | DX: R60.0 Localized edema (principal); R59.0 Localized enlarged lymph nodes | CPT/HCPCS: 70491 ==

== ENCOUNTER 2025-04-24 01:21 | Outpatient (BNV) | payer MEDICAID, SELFPAY | END 2025-04-24 03:10 | PROVIDERS: Admitting Provider Internal Medicine; Emergency Provider Emergency Medicine; Visit Provider Radiology Vascular & Interventional Radiology | DX: Z46.89 Encounter for fitting and adjustment of other specified devices (principal) | CPT/HCPCS: 71045; 76705 ==

== ENCOUNTER → 2025-04-24 01:21 | Outpatient (BNV) | payer MEDICAID, SELFPAY | PROVIDERS: Admitting Provider Internal Medicine; Emergency Provider Emergency Medicine; PCP Internal Medicine Geriatric Medicine; Visit Provider Surgery | DX: K56.7 Ileus, unspecified (principal) | CPT/HCPCS: 99232; 99499 ==

== ENCOUNTER → 2025-04-24 01:21 | Outpatient (BNV) | payer MEDICAID, SELFPAY | PROVIDERS: Admitting Provider Internal Medicine; Emergency Provider Emergency Medicine; Visit Provider Nurse Practitioner Family | DX: R14.0 Abdominal distension (gaseous) (principal) | CPT/HCPCS: 99232; 99239 ==

== ENCOUNTER 2025-05-18 21:19 | Inpatient (IN) | payer MEDICAID, SELFPAY ==
--- NOTE | ~2025-05-18 | XR_ITS ---
EXAMINATION: XR ABDOMEN KUB CLINICAL INDICATION: ileus COMPARISON: Previous KUB most recent May 19, [address] of the abdomen and pelvis most recent from yesterday TECHNIQUE: AP view of the abdomen. FINDINGS: Nasogastric tube with tip projecting over the mid stomach. Mild constipation. Nonspecific bowel gas pattern with air-filled loops of nondilated small and large bowel. This appears improved from May 19, 2025. No free air. Degenerative changes of the spine and hips. XR/XR KUB IMPRESSION: Mild constipation. Nonspecific bowel gas pattern with air filled nondilated loops of small and large bowel. This appears improved from prior KUB May 19, 2025. Electronically signed by: Noemí Duran MD 05/25/2025 09:57 AM EDT
--- NOTE | ~2025-05-18 | XR_ITS ---
CLINICAL HISTORY: ng placement 1 view abdomen Comparison: X-ray of the abdomen from 11/28/2024 Findings: Mild bibasilar atelectasis/pneumonitis of the imaged lung bases. Enteric tube terminates about expected lower body of the stomach. Side port just beyond expected cardia. Severe distention of the large intestine redemonstrated with moderate stool burden. No defined small-bowel dilatation. Density in the left lower quadrant likely due to enteric contrast of the additional mild multifocal enteric contrast. Additional filtered contrast noted in the partially imaged urinary bladder. Severe degenerative changes include imaged hips. Portions of the pelvis and femurs are obscured. Degenerative changes include the partially imaged spine. Left lower rib deformities appear old/chronic. IMPRESSION: Enteric tube terminates in the body of the stomach. This document has been electronically signed by: Anthony Sanchez MD on 05/19/2025 19:19:24
--- NOTE | ~2025-05-18 | XR_ITS ---
EXAMINATION: XR ABDOMEN KUB CLINICAL INDICATION: Nausea COMPARISON: None available. TECHNIQUE: AP view of the abdomen. FINDINGS: Scattered bowel gas is present in small and large bowel. Soft tissues are unremarkable. XR/XR KUB IMPRESSION: Unremarkable examination. Electronically signed by: Jasper Gonzales MD 05/27/2025 12:35 PM EDT
--- NOTE | ~2025-05-18 | CT_ITS ---
CLINICAL HISTORY: AMS, abdomen distended, patient moaning CT abdomen and pelvis with contrast Comparison: CR - XR KUB - 05/19/25 18:[address]/REG/SR - CT ABDOMEN PELVIS W IV CON - 04/23/25 23:17 EDT Findings: Patient is imaged in a partial decubitus position. No consolidation or effusion. An enteric tube terminates in the stomach. Stomach is nondistended. Spleen is normal. Hepatic parenchyma is normal. Gallbladder is partially distended. Pancreas is normal. Pancreatic tail is displaced by a large bowel loop. Kidneys are normal. No nephrolithiasis or hydroureter. Bladder is normal. Pelvic contents are unremarkable. There is marked colonic dilatation with a large stool burden. The appendix is not visualized. Redundant transverse and descending colonic loops are present. Proximal small bowel is nondistended. There is focal angulation of small-bowel loops in the mid abdomen without proximal dilatation. This may represent sequelae of scarring or adhesion. Large bowel loops extend to a left abdominal incisional scar/abdominal wall diastatic defect with close apposition of bowel wall to the defect. This may represent a Miller's type hernia. No evidence of focal transition point at this site. No free air or pneumatosis. No bowel obstruction, pneumoperitoneum, or pneumatosis. No acute fracture. IMPRESSION: 1. Severe distention and stool burden within the redundant large bowel. Stool and bowel gas extend to the rectum. A large bowel loop is closely apposed to a left abdominal wall defect/hernia without evidence for obstruction or incarceration. This may represent adhesion or a Miller's type hernia. 2. Focal angulation of small-bowel loops in the midabdomen may represent sequelae of scarring or adhesion. No evidence of proximal small bowel obstruction. This document has been electronically signed by: Sterling Varma III, MD PHD on 05/24/2025 03:43:37
--- NOTE | ~2025-05-18 | CT_ITS ---
EXAMINATION: CT ABDOMEN PELVIS WITH IV CONTRAST HISTORY: SBO? COMPARISON: Comparison is made with the prior examination dated 04/23/2025. TECHNIQUE: CT scan of the abdomen and pelvis was performed following administration of 85 mL Omnipaque 350 using standard departmental protocol. Coronal and sagittal reformatted images were generated and reviewed. Oral contrast material was not administered at the request of the referring physician. This CT exam was performed with one or more of the following dose reduction techniques: automated exposure control, adjustment of the mA and/or kV according to patient size, use of iterative reconstruction technique. DLP: 784 mGy-cm FINDINGS: LOWER CHEST: The visualized lung bases are clear. There is no pleural effusion. CARDIOVASCULATURE: The heart is normal in size. There is no pericardial effusion. LIVER: The liver is normal in size and contour. No liver mass is identified. The hepatic and portal veins are patent. GALLBLADDER / BILE DUCTS: The gallbladder is unremarkable. There is no intra or extrahepatic biliary ductal dilatation. SPLEEN: The spleen is normal in size. No focal splenic lesion is identified. PANCREAS: The pancreas is unremarkable in appearance. ADRENAL GLANDS: Within normal limits. KIDNEYS/RETROPERITONEUM: No renal calculi are identified. There is no hydronephrosis. No renal masses are identified. LYMPH NODES: No abdominal or pelvic lymphadenopathy. VASCULATURE: The abdominal aorta is normal in caliber. MESENTERY/PERITONEUM: No free fluid. No masses. There is no free intraperitoneal gas. STOMACH: The stomach is collapsed, limiting evaluation. SMALL BOWEL: The small bowel is normal in caliber. COLON: There is a very large amount of stool in the proximal colon. There is a twist of the sigmoid colon consistent with volvulus. This is best seen on coronal images 47 through 76. The colon distal to the twist is collapsed. APPENDIX: The appendix is not seen, however no inflammatory changes are seen adjacent to the cecum. URINARY BLADDER/PELVIC ORGANS: The urinary bladder is unremarkable. The uterus is unremarkable. BONES / SOFT TISSUES: No suspicious bony or soft tissue abnormalities. CT/CT abdomen pelvis w IV con IMPRESSION: Sigmoid volvulus with a very large amount of stool in the proximal colon. No evidence of small bowel obstruction. Findings were discussed with Dr. Patten in the emergency room on 05/19/2025 at 8:30 AM. Electronically signed by: Hardy Leon MD 05/19/2025 08:32 AM EDT
--- NOTE | ~2025-05-18 | CT_ITS ---
CLINICAL HISTORY: Altered mental status CT head without contrast Indication: Comparison: CT/REG/[place]/SR - CT ABDOMEN PELVIS W IV CON - 05/19/25 07:[address]/[place]/SR - CT HEAD/BRAIN WO IV CON - 06/20/24 13:44 EDT Findings: Brain is normal in volume and morphology. Ventricles are normal in size. Midbrain, yang, medulla, and cerebellum are normal. Cerebellar tonsils are normally positioned. There is no focal loss of tamez-white differentiation in a large arterial distribution. Scattered hypodensities in the subcortical and periventricular white matter are present. No acute intracranial hemorrhage. Suprasellar and basal cisterns are clear. There is no midline shift. Pituitary is normal. Orbits are normal. No acute calvarial fracture or diastasis. Mastoid air cells are normally aerated. Paranasal sinuses are clear.Patient is nasally intubated. IMPRESSION: 1. No acute intracranial hemorrhage. 2. No loss of tamez-white differentiation in a large vascular distribution. 3. Mild microvascular changes. This document has been electronically signed by: Sterling Varma III, MD PHD on 05/24/2025 03:32:27
[2025-05-18 21:22] VITALS: BP 102/51; PULSE 110; RESP 18; TEMP 36.4; O2SAT 94; BMI 35.2
[2025-05-18 21:45] LABS: Hematocrit 27.3 % (37.0-47.0); Hemoglobin 8.2 g/dl (12.0-16.0); Imm Gran Abs Auto 0.06 X10*3/uL (0.00-0.03); Imm Gran Pct Auto 0.6 % (0.0-0.4); Lymphocytes Absolute Auto 2.4 X10*3/uL (1.2-4.9); MANUAL DIFF FLAG NO; Mean Corpuscular HGB Conc 30.0 g/dl (31.0-35.0); Mean Corpuscular Hemoglobin 21.7 pg (27.0-33.0); Mean Corpuscular Volume 72.2 fL (80.0-98.0); NRBC Abs Auto 0.000 X10*3/uL (0.0-0.012); NRBC Pct Auto 0.0 /100WBC (0.0-0.2); Platelet Count 495 X10*3/uL (160-400); Red Blood Count 3.78 X10*6/uL (4.20-5.50); White Blood Count 10.1 X10*3/uL (4.8-10.8)
[2025-05-18 22:00] LABS: Alanine Aminotransferase 20 U/L (0-31); Albumin Level 4.8 g/dL (3.5-5.0); Alkaline Phosphatase 84 U/L (39-117); Anion Gap 18 (12-20); Aspartate Amino Transferase 12 U/L (5-31); Blood Urea Nitrogen 25 mg/dL (9-16); Calcium 9.4 mg/dL (8.4-10.2); Carbon Dioxide 24 mmol/L (22-29); Chloride 97 mmol/L (96-108); Creatinine Clr Calc Pharmacy 52.4; Estimated Glomerular Filt Rate 49; Lipase 20 U/L (8-78); Potassium 5.8 mmol/L (3.3-5.1); Sodium 133 mmol/L (135-145); Total Protein 7.7 g/dL (6.5-8.0)
[2025-05-18 23:17] LABS: Appearance Urine Clear; Glucose Urine UA Negative (Negative); PH 5.5 (5.0-9.0); Specific Gravity - Urine 1.020 (1.005-1.025); UMIC TRIGGER UACC YES
[2025-05-18 23:25] LABS: UACC Culture Trigger YES
[2025-05-19] VITALS (17 sets, daily range): BP systolic 103–138; BP diastolic 44–72; PULSE 92–111; RESP 12–18; TEMP 36–36.7; O2SAT 92–100; BMI 35.6
--- NOTE | 2025-05-19 | ECG_ITS ---
Test Reason : PRE OP Blood Pressure : */* mmHG Vent. Rate : 99 BPM Atrial Rate : 99 BPM P-R Int : 140 ms QRS Dur : 76 ms QT Int : 336 ms P-R-T Axes : 64 19 25 degrees QTcB Int : 431 ms Normal sinus rhythm Normal ECG When compared with ECG of 18-Jun-2024 15:12, Nonspecific T wave abnormality no longer evident in Lateral leads Referred By: Eve Barkley Electronically Signed By: CECELIA MCDONALD
--- OUTSIDE RECORDS SUMMARY | 2025-05-19 02:39 | XMS_ITS | Encounter Summary ---
Author Organization [employer] Address [address] [facility] [place] [address] Care Team Providers Care Drug Abuse Worker Name Role Phone Brenna Liriano MD Primary Care Provide r Reason for Visit * Reason Comments Med Refill Encounter Details Date Type Department Care Team ([facility] st Contact Info) Description 07/24/2023 Refill [facility] [address] [place], [place] [phone] Brenna Liriano MD [address] [place] [address] Social History Tobacco Use Types Packs/Day Years Used Date Smoking Tobacco: Every Day Cigarettes Passive Smoke Exposure: Never Smokeless Tobacco: Never Alcohol Use Standard Drinks/Week Comments Never 0 (1 standard drink = 0.6 oz pur e alcohol) Housing Stability Answer Date Recorded What is your housing situation today? I have michalerene reynolds 06/12/[address] you [...] Care Team (Late st Contact Info) Description 05/26/2025 10:40 AM EDT Office Visit [facility] [address] [place] [address] 06/10/2025 11:30 AM EDT Clinical Support [facility] MEDICINE [address] [place] [phone] 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 RN 07/22/2025 2:00 PM EST Office Visit [facility] [address] [place] [phone] Brenna Liriano MD [address] [place] [phone] documented as of this encounter Visit Diagnoses Not on filedocumented in this encounter Care Teams Drug Abuse Worker Relationship Specialty Start Date End Date Brenna Liriano MD [address] [place] [phone] PCP - General Family Medicine 07/01/19 [facility] 06/26/24 documented as of this encounter
--- OUTSIDE RECORDS SUMMARY | 2025-05-19 02:39 | XMS_ITS | Encounter Summary ---
Author Organization [employer] Address [address] [address] [place] [address] Care Team Providers Care Oil And Gas Well Treatment Operator Name Role Phone Brenna Liriano MD Primary Care Provide r Reason for Visit * Reason Comments Med Refill Encounter Details Date Type Department Care Team ([facility] st Contact Info) Description 01/02/2025 Refill [facility] [address] [place], [place] [phone] Name, MD Donny [address] [place] [address] Asthma, unspecified asthma severity, unspecified whether complicated, [...] Description 05/26/2025 10:40 AM EDT Office Visit [facility] [address] [place] [address] 06/10/2025 11:30 AM EDT Clinical Support [facility] MED[facility] [address] [place] [phone] 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 RN 07/22/2025 2:00 PM EST Office Visit [facility] [address] [place] [phone] Brenna Liriano MD [address] [place] [phone] documented as of this encounter Visit Diagnoses Diagnosis Asthma, unspecified asthma severity, unspecified whether complicated, unspecified whether persistent documented in this encounter Additional Health Concerns Assessment Noted Time PHQ-9 Depression Total Score: 1 12/27/19 25 11:18 AM EDT documented as of this encounter Care Teams [employer] Well Treatment Operator Relationship Specialty Start Date End Date Brenna Liriano MD [address] [place] [phone] PCP - General Family Medicine 07/01/19 [facility] 06/26/24 documented as of this encounter
--- OUTSIDE RECORDS SUMMARY | 2025-05-19 02:39 | XMS_ITS | Encounter Summary ---
Author Organization [employer] Address [address] [place] [address] 7t [place] [address] Care Team Providers Care Boarder Steam Name Role Phone Brenna Liriano MD Primary Care Provide r Encounter Details Date Type Department Care Team ([facility] Contact Info) Description 02/08/2023 Orders Only [facility] CHC MED & PEDS [address] [place] [address] Enma Sparks LPN Social History Tobacco Use [...] Department Care Team (Late Contact Info) Description 05/26/2025 10:40 AM EDT Office Visit [facility] OPTOMETRY [address] [place], [place] [phone] 06/10/2025 11:30 AM EDT Clinical Support [facility] MEDICINE [address] [place] [address] 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 RN 07/22/2025 2:00 PM EST Office Visit [facility] MEDICINE [address] [place] [address] Brenna Liriano MD [address] [place] [address] documented as of this encounter Visit Diagnoses Not on filedocumented in this encounter Care Teams Boarder Steam Relationship Specialty Start Date End Date Brenna Liriano MD [address] [place], [place] [phone] PCP - General Family Medicine 07/01/19 [facility] 06/26/24 documented as of this encounter
--- OUTSIDE RECORDS SUMMARY | 2025-05-19 02:39 | XMS_ITS | Encounter Summary ---
Author Organization [employer] Address [address] [employer] 7t [place] [address] Care Team Providers Care Damage Assessor Name Role Phone Brenna Liriano MD Primary Care Provide r Reason for Visit * Reason Comments Med Refill Encounter Details Date Type Department Care Team ([facility] st Contact Info) Description 12/18/2023 Refill [facility] MEDICINE [address] [place], [place] [phone] Brenna Liriano MD 230 [place] [address] Social History Tobacco Use Types Packs/Day Years [...] Description 05/26/2025 10:40 AM EDT Office Visit [facility] OPTOMETRY [address] [place] [address] 06/10/2025 11:30 AM EDT Clinical Support [facility] MEDICINE [address] [place] [address] 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 RN 07/22/2025 2:00 PM EST Office Visit [facility] MEDICINE [address] [place] [address] Brenna Liriano MD 230 [place] [address] documented as of this encounter Visit Diagnoses Not on filedocumented in this encounter Care Teams Damage Assessor Relationship Specialty Start Date End Date Brenna Liriano MD [address] [place] [address] PCP - General Family Medicine 07/01[facility] documented as of this encounter
--- OUTSIDE RECORDS SUMMARY | 2025-05-19 02:39 | XMS_ITS | Encounter Summary ---
Author Organization [employer] Address [address] [place] [address] 7t [place] [address] Care Team Providers Care Bath House Attendant Name Role Phone Brenna Liriano MD Primary Care Provide r Encounter Details Date Type Department Care Team ([facility] Contact Info) Description 02/12/2023 Orders Only [facility] MEDICINE [address] [place] [phone] Kristen Hernandez LPN Social History Tobacco Use [...] Description 05/26/2025 10:40 AM EDT Office Visit [facility] OPTOMETRY [address] [place], [place] [phone] 06/10/2025 11:30 AM EDT Clinical Support [facility] MEDICINE [address] [place] [address] [phone] 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 RN 07/22/2025 2:00 PM EST Office Visit [facility] MEDICINE [address] [place] [address] [phone] Brenna Liriano MD 230 [place] [address] documented as of this encounter Visit Diagnoses Not on filedocumented in this encounter Care Teams Bath House Attendant Relationship Specialty Start Date End Date Brenna Liriano MD 230 [place], [place] [phone] PCP - General Family Medicine 07/01/19 Geovanny [facility] 06/26/24 documented as of this encounter
--- OUTSIDE RECORDS SUMMARY | 2025-05-19 02:39 | XMS_ITS | Encounter Summary ---
Author Organization [employer] Address [address] [facility] 7t [place] [address] Care Team Providers Care Bacteriologist Fishery Name Role Phone Brenna Liriano MD Primary Care Provide r Reason for Visit * Reason Comments Med Refill Encounter Details Date Type Department Care Team ([facility] st Contact Info) Description 09/14/2023 Refill [facility] MEDICINE 230 [place], [place] [phone] Brenna Liriano MD 230 [place], [place] [phone] Constipation, unspecified constipation type Social History Tobacco [...] Description 05/26/2025 10:40 AM EDT Office Visit [facility] OPTOMETRY 267 [place] [address] 06/10/2025 11:30 AM EDT Clinical Support [address] [address] 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 RN 07/22/2025 2:00 PM EST Office Visit [address] [address] Brenna Liriano MD [address] [place] [address] documented as of this encounter Visit Diagnoses Diagnosis Constipation, unspecified constipation type documented in this encounter Care Teams Bacteriologist Fishery Relationship Specialty Start Date End Date Brenna Liriano MD [address] [place] [phone] PCP - General Family Medicine 07[facility]01[facility]19 [facility] documented as of this encounter
--- OUTSIDE RECORDS SUMMARY | 2025-05-19 02:39 | XMS_ITS | Encounter Summary ---
Author Organization [employer] Address [address] [place] [address] 7 [place] [address] Care Team Providers Care Pharmacist'S Aide Name Role Phone Brenna Liriano MD Primary Care Provide r Reason for Visit * Reason Onset Date Comments Hospital Follow-up 05/06/2025 Encounter Details Date Type Department Care Team ([facility] st Contact Info) Description 05/06/2025 Telephone [facility] MEDICINE 230 [place] [address] Brenna Liriano MD 230 [place] [address] Hospital Follow-up Social History Tobacco Use Types [...] encounter Miscellaneous Notes * Telephone Encounter - Donny Stone - 05/06/2025 11:32 AM EDT Tc from pt requesting a HDF appt. Hospital: [facility] Date of admission: 04/29/2025 Discharge date: 05/06/2025 Diagnosed: Constipation and diabetes *Send message to [place] Clinical Care Coordinators Contact pt at [phone] documented in this encounter Plan of Treatment Upcoming Encounters Date Type Department Care Team ([facility] st Contact Info) Description 05/26/2025 10:40 AM EDT Office Visit [facility] OPTOMETRY [address] [place] [address] 06/10/2025 11:30 AM EDT Clinical Support [facility] MEDICINE [address] [place] [address] 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 RN 07/22/2025 2:00 PM EST Office Visit [facility] MEDICINE [address] [place] [address] Brenna Liriano MD 230 [place] [address] documented as of this encounter Visit Diagnoses Not on filedocumented in this encounter Additional Health Concerns Assessment Noted Time PHQ-9 Depression Total Score: 1 12/27/19 25 11:18 AM EDT documented as of this encounter Care Teams Pharmacist'S Aide Relationship Specialty Start Date End Date Brenna Liriano MD 230 [place] [address] PCP - General Family Medicine 07/01/19 Geovanny [facility] 06/26/24 documented as of this encounter
--- OUTSIDE RECORDS SUMMARY | 2025-05-19 02:39 | XMS_ITS | Encounter Summary ---
Author Organization [employer] Address [address] [place] [address] 7 [place] [address] Care Team Providers Care Holiday Detector Operator Name Role Phone Brenna Liriano MD Primary Care Provide r Encounter Details Date Type Department Care Team ([facility] Contact Info) Description 08/10/2022 [facility] Health Information Management [address] [place] [address] Brenna Liriano MD 230 [place] [address] Social History Tobacco Use Types Packs/Day Years [...] Description 05/26/2025 10:40 AM EDT Office Visit [facility] OPTOMETRY 267 [place], [place] [phone] 06/10/2025 11:30 AM EDT Clinical Support [facility] MEDICINE [address] [place] [address] [phone] 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 RN 07/22/2025 2:00 PM EST Office Visit [facility] MEDICINE [address] [place] [address] Brenna Liriano MD 230 [place] [address] documented as of this encounter Visit Diagnoses Not on filedocumented in this encounter Care Teams Holiday Detector Operator Relationship Specialty Start Date End Date Brenna Liriano MD 230 [place], [place] [phone] PCP - General Family Medicine 07/01/19 Geovanny [facility] 06/26/24 documented as of this encounter
--- OUTSIDE RECORDS SUMMARY | 2025-05-19 02:39 | XMS_ITS | Encounter Summary ---
Author Organization [employer] Address [address] [facility] 7t [place] [address] Care Team Providers Care Cardiopulmonary Technologist Name Role Phone Brenna Liriano MD Primary Care Provide r Encounter Details Date Type Department Care Team (Late st Contact Info) Description 11/18/[address] [facility] CHC MED & PEDS [address] [place], [place] [phone] Provider, MD Ameya Social History Tobacco Use [...] Description 05/26/2025 10:40 AM EDT Office Visit [facility] OPTOMETRY [address] [place] [address] 06/10/2025 11:30 AM EDT Clinical Support [facility] MEDICINE [address] [place] [address] 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 RN 07/22/2025 2:00 PM EST Office Visit [facility] [address] [place] [address] Brenna Liriano MD 230 [place] [address] documented as of this encounter Procedures Procedure Name Priority Date/Time Associated Diagnosis Comments COLONOSCOPY Routine 04/02/2024 9:55 AM EDT documented in this encounter Results * Hm Colonoscopy (04/02/2024 9:55 AM EDT) Colonoscopy Normal Normal Narrative Jacqueline Valiente - 04/02/2024 9:55 AM EDT Repeat Colonoscopy in 5 years or earlier if clinically indicated see the external hospital admission note on 04/02/2024 Historical Provider [facility] Edited Result - Final documented in this encounter Visit Diagnoses Not on filedocumented in this encounter Care Teams Cardiopulmonary Technologist Relationship Specialty Start Date End Date Brenna Liriano MD [address] [place] [address] PCP - General Family Medicine 07/01/19 [facility] 06/26/24 documented as of this encounter
--- OUTSIDE RECORDS SUMMARY | 2025-05-19 02:39 | XMS_ITS | Clinical Summary ---
Author Organization [facility] Address [address] [place] [address] Phone Care Team Providers Care Chief Operator Hydroformer Name Role Phone Andrez Liriano MD Primary [...] mg by mouth every 6 hours. Active clotrimazole 1 % lotion Apply 1 Application topically at bedtime. 30 mL 3 5 07/08/20 25 Active Active Problems Problem Noted Date Diagnosed Date Allergic rhinitis 02/03/2019 Asthma 02/03/2019 Chronic constipation 02/03/2019 COPD (chronic obstructive pu lmonary disease) ([facility] V24, [facility] V28) 02/03/2019 Depression with anxiety 02/03/2019 Overview (07/02/2024): Admission to [facility] 10/24/2018 for crisis and depression. HTN (hypertension) 02/03/2019 Microalbuminuria 02/03/2019 Obesity 02/03/2019 Onychomycosis 02/03/2019 Osteoarthritis 02/03/2019 Overview (07/02/2024): Knees, bilaterally. Schizoaffective disorder ([facility] V24, [facility] V 28) 02/03/2019 Type 2 diabetes mellitus wit h renal manifestations ([facility] V24, [facility] V28) 02/03/2019 Encounters Date Type Department Care Team Description 05/13/2025 10:45 AM EDT Office Visit Orthopedic Surgery [address] [address] Carmelo Craig, DPM Hallux rigidus of right foot (Primary Dx); Hallux rigidus of left foot; Dermatophytosis of nail; Metatarsalgia of both feet; Pain in toe of right foot; Diabetic mononeuropathy simplex ([facility], [facility] V28); Type II diabetes mellitus with peripheral circulatory disorder ([facility], [facility] V28); Pain in toe of left foot; Corns and callosities; Tinea pedis of both feet from Last 3 Months Medical History Medical History Date Comments Depression with anxiety 02/03/2019 DX:Depre ssion with anxiety; COMMENT: Admission to [facility] 10/24/2018 for crisis and depression. Asthma 02/03/2019 DX:Asthma Onychomycosis 02/03/2019 DX:Onychomycosis Osteoarthritis 02/03/2019 DX:Osteoarthriti s; COMMENT: knees, bilaterally. HTN (hypertension) 02/03/2019 DX:HTN (hyper tension) COPD (chronic obstructive pu lmonary disease) ([facility], [facility] V28) 02/03/2019 DX:COPD (chronic o bstructive pulmonary disease) ([facility]) Schizoaffective disorder ([facility] V24, [facility] V28) 02/03/2019 DX:Schizoaffective disorder ([facility]) Microalbuminuria 02/03/2019 DX:Microalbumin uria Type 2 diabetes mellitus wit h renal manifestations ([facility], [facility] V28) 02/03/2019 DX:Type 2 diabetes mellitus with renal manifestations ([facility]) Tobacco use 02/03/2019 DX:Tobacco use Chronic constipation [...] Care Team (Late st Contact Info) Description 08/05/2025 10:00 AM EST Office Visit Orth[facility] - [place] [address] [address] Carmelo Craig, DPM [address] [address] Health Maintenance Due Date Last Done Comments Breast Cancer Screening 1965 Colorectal Cancer Screening: Colonoscopy 1965 Diabetes: Annual Foot Exam 1975 Diabetes: Annual Retina Eye Exam 1975 Cervical Cancer Screening: Pap Smear 1986 Zoster Vaccines (1 of 2) 2015 Diabetes: Annual Urine Albumin-Creatinine Ratio (uACR) 03/18/2024 [...] Annual BMP Blood Test 07/21/2025 07/21/2024, 06/18/2024 Cholesterol Screening (Lipid Panel) 11/04/2029 11/04/2024 DTaP,Tdap,and Td Vaccines (5 - Td or [...] topic Insurance MEDICAID - [place] Care Teams Chief Operator Hydroformer Relationship Specialty Start Date End Date Andrez Liriano MD [address] [phone] PCP - General 08/30/23
--- OUTSIDE RECORDS SUMMARY | 2025-05-19 02:39 | XMS_ITS | Encounter Summary ---
Author Organization [employer] Address [address] [place] [address] 7t [place] [address] Care Team Providers Care Field Contractor Name Role Phone Brenna Liriano MD Primary Care Provide r Reason for Visit * Reason Onset Date Comments Nurse Triage 11/10/2024 Encounter Details Date Type Department Care Team ([facility] st Contact Info) Description 11/10/2024 Telephone [facility] MEDICINE [address] [place], [place] [phone] Brenna Liriano MD 230 [place], [place] [phone] Nurse Triage Social History Tobacco Use Types [...] 11/10/2024 4:06 PM EDT Triage call with [facility] Emergency Vehicle Operator [place] [id number]. Pt called regarding constipation. Pt reports last [...] higher acuity questions Please contact pt at [phone]. (Danish Speaking) documented in this encounter Plan of Treatment Upcoming Encounters Date Type Department Care Team ([facility] Contact Info) Description 05/26/2025 10:40 AM EDT Office Visit [facility] OPTOMETRY [address] [place] [address] 06/10/2025 11:30 AM EDT Clinical Support [facility] MEDICINE [address] [place] [address] 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, RN 07/22/2025 2:00 PM EST Office Visit [facility] [address] [place] [address] Brenna Liriano MD 230 [place] [address] documented as of this encounter Visit Diagnoses Not on filedocumented in this encounter Care Teams Field Contractor Relationship Specialty Start Date End Date Brenna Liriano MD [address] [place] [address] [phone] PCP - General Family Medicine 07/01/19 Geovanny [facility] 06/26/24 documented as of this encounter
--- OUTSIDE RECORDS SUMMARY | 2025-05-19 02:39 | XMS_ITS | Encounter Summary ---
Author Organization [employer] Address [address] [facility] 7t [place] [address] Care Team Providers Care Mapping Specialist Name Role Phone Brenna Liriano MD Primary Care Provide r Reason for Visit * Reason Comments Med Refill Encounter Details Date Type Department Care Team ([facility] st Contact Info) Description 05/17/2025 Refill [facility] MEDICINE 230 [place], [place] [phone] Brenna Liriano MD 230 [place] [address] Chronic constipation Social History Tobacco Use Types Packs/Day Years [...] Description 05/26/2025 10:40 AM EDT Office Visit [facility] OPTOMETRY [address] [place] [address] 06/10/2025 11:30 AM EDT Clinical Support [facility] MEDICINE [address] [place] [address] Avelina Sterling RN 07/22/2025 2:00 PM EST Office Visit [address] [address] Brenna Liriano MD [address] [place] [address] documented as of this encounter Visit Diagnoses Diagnosis Chronic constipation Unspecified constipation documented in this encounter Additional Health Concerns Assessment Noted Time PHQ-9 Depression Total Score: 1 12/27/19 25 11:18 AM EDT documented as of this encounter Care Teams Mapping Specialist Relationship Specialty Start Date End Date Brenna Liriano MD [address] [place] [address] PCP - General Family Medicine 07/01/19 [facility] 06/26/24 documented as of this encounter
--- OUTSIDE RECORDS SUMMARY | 2025-05-19 02:39 | XMS_ITS | Encounter Summary ---
Author Organization [employer] Address [address] [facility] 7t [place] [address] Care Team Providers Care Cut Out Press Operator Name Role Phone Brenna Liriano MD Primary Care Provide r Reason for Visit * Reason Comments Med Refill Encounter Details Date Type Department Care Team ([facility] st Contact Info) Description 06/12/[address] [facility] MEDICINE [address] [place], [place] [phone] Brenna Liriano MD 230 [place] [address] Constipation, unspecified constipation type Social History Tobacco [...] Description 05/26/2025 10:40 AM EDT Office Visit [facility] OPTOMETRY 267 [place] [address] 06/10/2025 11:30 AM EDT Clinical Support [address] [address] Avelina Sterling RN 07/22/2025 2:00 PM EST Office Visit [facility] MEDICINE [address] [place] [address] Brenna Liriano MD [address] [place] [address] documented as of this encounter Visit Diagnoses Diagnosis Constipation, unspecified constipation type documented in this encounter Care Teams Cut Out Press Operator Relationship Specialty Start Date End Date Brenna Liriano MD [address] [place] [phone] PCP - General Family Medicine 07/01/19 [facility] 06/26/24 documented as of this encounter
--- OUTSIDE RECORDS SUMMARY | 2025-05-19 02:39 | XMS_ITS | Encounter Summary ---
Author Organization [employer] Address [address] [place] [address] 7t [place] [address] Care Team Providers Care Key Operator Name Role Phone Brenna Liriano MD Primary Care Provide r Reason for Visit * Reason Comments Med Refill Encounter Details Date Type Department Care Team ([facility] st Contact Info) Description 03/11/2024 Refill [facility] MEDICINE 230 [place], [place] [phone] Brenna Liriano MD 230 [place] [address] Asthma, unspecified asthma severity, unspecified whether complicated, [...] Description 05/26/2025 10:40 AM EDT Office Visit [facility] OPTOMETRY [address] [place] [address] 06/10/2025 11:30 AM EDT Clinical Support [facility] MEDICINE [address] [place] [address] Avelina Sterling RN 07/22/2025 2:00 PM EST Office Visit [address] [address] Brenna Liriano MD [address] [place] [address] documented as of this encounter Visit Diagnoses Diagnosis Asthma, unspecified asthma severity, unspecified whether complicated, unspecified whether persistent documented in this encounter Care Teams Key Operator Relationship Specialty Start Date End Date Brenna Liriano MD [address] [place] [address] PCP - General Family Medicine 07/01/19 [facility] 06/26/[facility] documented as of this encounter
--- OUTSIDE RECORDS SUMMARY | 2025-05-19 02:39 | XMS_ITS | Encounter Summary ---
Author Organization [employer] Address [address] [place] [address] 7 [place] [address] Care Team Providers Care Driftman Name Role Phone Brenna Liriano MD Primary Care Provide r Reason for Visit * Reason Onset Date Comments Hospital Follow-up 06/25/2024 Encounter Details Date Type Department Care Team ([facility] st Contact Info) Description 06/25/2024 Telephone [facility] MEDICINE 230 [place], [place] [phone] Brenna Liriano MD 230 [place], [place] [phone] Hospital Follow-up Social History Tobacco Use Types [...] from pt requesting a HDF appt. Hospital: [facility] Date of admission: Asthma Discharge date: 06/18/24 Diagnosed: 06/24/24 *Send message to [place] Clinical Care Coordinators documented in this encounter Plan of Treatment Upcoming Encounters Date Type Department Care Team (Late st Contact Info) Description 05/26/2025 10:40 AM EDT Office Visit [facility] OPTOMETRY [address] [place] [address] 06/10/2025 11:30 AM EDT Clinical Support [facility] MEDICINE [address] [place] [phone] Avelina Sterling RN 07/22/2025 2:00 PM EST Office Visit [facility] MEDICINE [address] [place] [address] Brenna Liriano MD [address] [place] [address] documented as of this encounter Visit Diagnoses Not on filedocumented in this encounter Care Teams Driftman Relationship Specialty Start Date End Date Brenna Liriano MD [address] [place] [address] PCP - General Family Medicine 07/01/19 [facility] 06/26/24 documented as of this encounter
--- OUTSIDE RECORDS SUMMARY | 2025-05-19 02:39 | XMS_ITS | Encounter Summary ---
Author Organization [employer] Address [address] [place] [address] 7t [place] [address] Care Team Providers Care Third Rail Installer Name Role Phone Brenna Liriano MD Primary Care Provide r Reason for Visit * Reason Onset Date Comments Appointment Request 10/31/2023 Encounter Details Date Type Department Care Team ([facility] st Contact Info) Description 10/31/2023 Telephone [facility] MEDICINE 230 [place], [place] [phone] Brenna Liriano MD 230 [place], [place] [phone] Appointment Request Social History Tobacco Use Types [...] PM EDT Tc from Veronica the patients generator worker calling to cancel the PAP appt on 11/06 and would like to reschedule documented in this encounter Plan of Treatment Upcoming Encounters Date Type Department Care Team (Late st Contact Info) Description 05/26/2025 10:40 AM EDT Office Visit [facility] OPTOMETRY [address] [place] [address] 06/10/2025 11:30 AM EDT Clinical Support [facility] MEDICINE [address] [place] [phone] Avelina Sterling RN 07/22/2025 2:00 PM EST Office Visit [facility] MEDICINE [address] [place] [phone] Brenna Liriano MD [address] [place] [address] documented as of this encounter Visit Diagnoses Not on filedocumented in this encounter Care Teams Third Rail Installer Relationship Specialty Start Date End Date Brenna Liriano MD [address] [place] [address] PCP - General Family Medicine [facility]01[facility] documented as of this encounter
--- OUTSIDE RECORDS SUMMARY | 2025-05-19 02:39 | XMS_ITS | Encounter Summary ---
Author Organization [facility] [employer] Address [address] [place] [address] [address] [place] [address] Care Team Providers Care Tanning Wheel Operator Name Role Phone Brenna Liriano MD Primary Care Provide r Reason for Visit * Reason Onset Date Comments Med Refill 10/07/2024 Encounter Details Date Type Department Care Team ([facility] st Contact Info) Description 10/07/2024 Telephone [facility] [address] [place], [place] [phone] Brenna Liriano MD [address] [place], [place] [phone] Med Refill Social History Tobacco Use Types [...] from PCP today, no tramadol refill until ENGINEER/CONDUCTOR initial visit completed. Spoke with patient today and pt Is scheduled for 10/09/24. * Telephone Encounter - Melchor Ortega - 10/07/2024 3:05 PM EST TC from pt requesting medication refill. Medications needing refill : traMADol (Ultram) 50 MG tablet To be sent to: [facility] - [place], [place] - [id number] - [place], [place] - [address] documented in this encounter Plan of Treatment Upcoming Encounters Date Type Department Care Team (Late st Contact Info) Description 05/26/2025 10:40 AM EDT Office Visit [facility] [address] [place] [address] 06/10/2025 11:30 AM EDT Clinical Support [facility] [address] [place] [address] Avelina Sterling RN 07/22/2025 2:00 PM EST Office Visit [facility] [address] [place] [address] Brenna Liriano MD [address] [place] [address] documented as of this encounter Visit Diagnoses Not on filedocumented in this encounter Care Teams Tanning Wheel Operator Relationship Specialty Start Date End Date Brenna Liriano MD [address] [place] [phone] PCP - General Family Medicine 07/01/19 [facility] 06/26/24 documented as of this encounter
--- OUTSIDE RECORDS SUMMARY | 2025-05-19 02:39 | XMS_ITS | Clinical Summary ---
Author Organization [employer] Address [address] [place] [address] [address] [place] [address] Care Team Providers Care Personal Companion Name Role Phone Brenna Liriano MD Primary [...] at bedtime. TDD 325 mg at bedtime 01/26/20 23 Active cloZAPine (Clozaril) 25 MG tablet Take 1 tablet by mouth at bedtime. TD 325 mg at bedtime 11/28/19 23 Active fluticasone (Flonase) 50 MCG/ACT nasal spray SPRAY 2 SPRAYS INTO EACH NOSTRIL EVERY MORNING 48 g 04/17/20 23 Active dilTIAZem CD (Cardizem CD) 120 MG 24 hr capsule Take 1 capsule by mouth 1 (one) time each day. 06/18/20 23 Active divalproex (Depakote ER) 250 MG [...] BREATH 90 mL 1 06/25/20 24 Active naloxone (Narcan) 4 mg/0.1 mL nasal sprayIndication s:Chronic bilateral low back pain without sciatica Administer 1 spray (4 mg) into affected nostril(s) if needed for opioid reversal. May repeat every 2-3 minutes if needed, alternating nostrils, until medical assistance becomes available. 2 each 10/09/19 25 2025 Active ferrous sulfate (Fe Tabs) 325 (65 Fe) MG EC tablet Take 1 tablet (325 mg) by mouth every other day. Do not crush, chew, or split. 15 tablet 11/18/192025 Active Blood Pressure Monitoring (Blood Pressure Cuff) miscIndications :Essential hypertension 1 each in the morning. 1 each 01/11/20 25 Active lisinopril 10 MG tablet TAKE 1 TABLET BY MOUTH DAILY 30 tablet 01/23/20 25 Active montelukast (Singulair) 10 MG tabletIndicatio ns:Uncomplicate d asthma, unspecified asthma severity, unspecified whether persistent TAKE 1 TABLET BY MOUTH DAILY IN THE MORNING 30 tablet 01/23/20 25 Active omeprazole (PriLOSEC) [address] capsuleIndicati ons:Gastroesoph ageal reflux disease, unspecified whether esophagitis present TAKE 1 CAPSULE BY MOUTH TWICE DAILY BEFORE A MEAL 60 capsule 01/23/20 25 Active senna (Senokot) 8.6 MG tabletIndicatio ns:Constipation , unspecified constipation type TAKE 2 TABLETS BY MOUTH EVERY DAY AT BEDTIME NEEDED FOR CONSTIPATION 60 tablet 01/23/20 25 Active loratadine (Claritin) 10 MG tablet TAKE 1 TABLET BY MOUTH EVERY MORNING 30 tablet 01/23/20 25 Active docusate sodium (Colace) 100 MG capsule TAKE 1 CAPSULE BY MOUTH TWICE DAILY IN THE MORNING AND AT BEDTIME NEEDED 60 capsule 5 01/23/20 25 Active polyethylene glycol, PEG, 3350 (HealthyLax) 17 g packet MIX 1 PACKET WITH 8 OUNCES OF WATER OR JUICE AND DRINK BY MOUTH THREE TIMES DAILY NEEDED 90 packet 2 02/10/20 25 Active sucralfate (Carafate) 1 g tablet TAKE 1 TABLET BY MOUTH THREE TIMES DAILY IN THE MORNING, AT NOON, AND AT BEDTIME 90 tablet 04/10/20 25 Active albuterol (Ventolin HFA) 108 (90 Base) MCG/ACT inhalerIndicati ons:Asthma, unspecified asthma severity, unspecified whether complicated, unspecified whether persistent INHALE 2 PUFFS BY MOUTH EVERY 4 TO 6 HOURS NEEDED 18 g 2 04/10/20 25 Active traMADol (Ultram) 50 MG tabletIndicatio ns:Chronic bilateral low back pain without sciatica TAKE 1 TABLET BY MOUTH EVERY TWELVE HOURS NEEDED FOR SEVERE PAIN 56 tablet 04/23/20 25 2024 Active metFORMIN XR (Glucophage-XR) 500 MG 24 hr tablet TAKE 1 TABLET BY MOUTH TWICE DAILY IN THE MORNING AND AT BEDTIME WITH MEALS 90 tablet 1 04/16/20 25 Active atorvastatin (Lipitor) 40 MG tabletIndicatio ns:Essential hypertension TAKE 1 TABLET BY MOUTH AT BEDTIME 90 tablet 1 04/16/20 25 Active lactulose (Chronulac) 10 GM/15ML solutionIndicat ions:Chronic constipation TAKE 45 ML BY MOUTH EVERY MORNING DIRECTED 473 mL 1 05/18/20 25 Active lactulose (Chronulac) 10 GM/15ML solutionIndicat ions:Chronic constipation TAKE 45 ML BY MOUTH EVERY DAY IN THE MORNING DIRECTED 473 mL 1 03/11/20 25 2024 Discontinued traMADol (Ultram) 50 MG tabletIndicatio ns:Chronic bilateral low back pain without sciatica TAKE 1 TABLET BY MOUTH EVERY TWELVE HOURS NEEDED FOR SEVERE PAIN 56 tablet 03/24/20 25 2024 Discontinued sulfamethoxazol e-trimethoprim (Bactrim DS) 800-160 MG tablet Take 1 tablet by mouth 2 times daily for 7 days. 14 tablet 05/11/20 25 2024 Active Problems Problem Noted Date Diagnosed Date Long-term current use of opiate analgesic 2024 Chronic bilateral low back pain without sciatica 07/15/2024 Chronic respiratory failure with hypoxia (CMS/HC C) 07/15/2024 Assessment & Plan (07/15/2024 5:04 PM EST): [...] incontinence 11/02/2022 Moderate chronic obstructive pulmonary disease ( CMS/HCC) 12/11/2018 Assessment & Plan (07/10/2023 12:22 PM [...] Q 12hrs Patient will be contacted by ADMITT[facility] ATTORNEYS nurse Tobacco dependence syndrome 06/04/2015 Microalbuminuria 06/23/2014 Chronic constipation 02/27/2012 Assessment & Plan (01/02/2023 2:10 PM EDT): Increase water and fiber on her diet Medications prescribed Referral to GI Chronic schizoaffective schizophrenia (CMS/HCC) 02/27/2012 Assessment & Plan (10/12/2023 6:30 PM [...] emergency department for further evaluation, case presented [facility], patient will go by ambulance Acute upper respiratory infection 11/02/2022 02/16/2023 Mild intermittent asthma 04/02/2018 Obesity (BMI 30-39.9) 04/02/20182022 Schizoaffective disorder, bi polar type ([facility]/HCC) 03/13/2017 02/16/2023 Primary osteoarthritis of left knee 01/30/2017 02/16/2023 Encounters Date Type Department Care Team Description 05/17/[address] [address] Brenna Liriano MD Chronic constipation 05/11/2025 10:00 AM EDT Office Visit [facility] [address] [place] [phone] Dionne Valerio MD UTI symptoms 05/11/2025 Travel 05/06/2025 Patient Outreach [address] [address] Brenna Liriano MD Transition Of Care (Tcm) (HDF unscheduled LVM ) 05/06/[address] [address] Brenna Liriano MD Hospital Follow-up 05/01/2025 Patient Outreach [address] [address] Brenna Liriano MD Care Coordination (C3 -[facility] Zenobia Baker telephone call outreach) 04/30/2025 Telephone [facility] [address] [place] [address] Brenna Liriano MD NOV RECALL 04/24/2025 Patient Outreach [address] [address] Brenna Liriano MD 04/23/2025 Orders Only GENERIC EXTERNAL DATA DEPARTMENT Provider, Generic External Data 04/21/2025 Patient Outreach [address] [address] Brenna Liriano MD Care Management (C3- F/U call # 1) 04/16/[address] [place] [address] Brenna Liriano MD Essential hypertension 04/14/2025 Refill [facility] [address] [place] [address] Brenna Liriano MD Chronic bilateral low back pain without sciatica 04/09/2025 Refill [facility] [address] [place] [address] Brenna Liriano MD Asthma, unspecified asthma severity, unspecified whether complicated, unspecified whether persistent 04/09/2025 Refill [facility] [address] [place] [address] Donny Gallegos MD Asthma, unspecified asthma severity, unspecified whether complicated, unspecified whether persistent 03/24/2025 Refill [facility] [address] [place] [address] Brenna Liriano MD Chronic bilateral low back pain without sciatica 03/20/2025 Patient Outreach [facility] [address] [place] [address] Brenna Liriano MD Care Coordination ([address] Zenobia Baker telephone call outreach) 03/17/2025 Refill [facility] [address] [place] [address] Brenna Liriano MD 03/16/2025 11:30 AM EDT Clinical Support [facility] [address] [place] [address] Avelina Sterling RN Long-term current use of opiate analgesic (Primary Dx) 03/16/2025 Telephone [facility] [address] [place] [address] Avelina Sterling RN Abnormal UTOX; BPI Scoring 03/16/2025 Travel 03/09/2025 Refill [facility] [address] [place] [address] Brenna Liriano MD Chronic constipation 03/04/2025 Patient Outreach [facility] [address] [place] [address] Brenna Liriano MD Care Management (C3CM- F/U call # 1 (2nd attempt)) 02/25/2025 Telephone [facility] [address] [place] [address] Nikki Akhtar NP Results 02/25/[address] [address] Nikki Akhtar NP Error (VOID this visit) 02/25/2025 Results Follow-Up [facility] [address] [place] [address] Nikki Akhtar NP Urinalysis, Complete, with Reflex to Culture, Culture, Urine, Routine 02/23/2025 10:00 AM EDT Office Visit [facility] [address] [place] [address] Nikki Akhtar NP UTI symptoms (Primary Dx); Other microscopic hematuria; Elevated blood pressure reading in office with diagnosis of hypertension 02/23/2025 Orders Only [facility] [address] [place] [address] Nikki Akhtar NP 02/23/2025 Travel 02/18/[address] [address] Brenna Liriano MD 02/17/[address] [address] 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, 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 from Last 3 Months Immunizations Immunization Administration [...] Sign Reading Time Taken Comments Blood Pressure 115/72 05/11/2025 9:27 AM EDT Pulse 99 05/11/2025 9:27 AM EDT Temperature 36.6 C (97.9 F) 05/11/2025 9:27 AM EDT Respiratory Rate 17 05/11/2025 9:27 AM EDT Oxygen Saturation 96% 02/23/2025 10:41 AM EDT Inhaled Oxygen Concentration - - Weight 84.9 kg (187 lb 3.2 oz) 05/11/2025 9:27 A M EDT Height 157.5 cm (5' 2 ) 05/11/2025 9:27 AM EDT Body Mass Index 34.24 05/11/2025 9:27 AM EDT Plan of Treatment Upcoming Encounters Date Type Department Care Team (Late st Contact Info) Description 05/26/2025 10:40 AM EDT Office Visit [facility] [address] [place] [address] 06/10/2025 11:30 AM EDT Clinical Support [facility] [address] [place] [address] Avelina Sterling RN 07/22/2025 2:00 PM EST Office Visit [facility] [address] [place] [address] Brenna Liriano MD [address] [place] [address] Health Maintenance Due Date Last Done Comments [...] 2025 , 06/21/2022, 07/11/2021, Additional history exists Mammogram 05/01/2025 05/01/2024, 12/2022, 04/14/2022, Additional history exists Lipid Panel 11/04/2025 11/04/2024, 08/08/2023 Alcohol/Substance Use Screening 12/26/2025 12/26/2024 Depression Screening 12/26/2025 12/26/2024, 12/27/19 25 SDOH Screening 01/01/2026 01/01/2025 Tobacco Screening 05/11/2026 05/11/2025 Colonoscopy 04/02/2029 04/02/2024 Colorectal Cancer Screening 04/02/2029 [...] Name Priority Date/Time Associated Diagnosis Comments POCT URINALYSIS DIPSTICK Routine 05/11/2025 9:39 AM EDT UTI symptoms US ABDOMEN LIMITED Routine 04/25/2025 6: [address] SOFT TISSUE NECK W CONTRAST Routine 04/25/2025 4:44 PM EDT XR CHEST 1 VIEW Routine 04/24/2025 5:[address] ABDOMEN PELVIS W CONTRAST Routine 04/24/2025 1:00 AM EDT CBC WITH AUTO DIFFERENTIAL Routine 04/23/2025 8:25 PM EDT POCT BANG-14 URINE DRUG SCREEN Routine 03/16/2025 11:49 AM EDT Long-term current use of opiate analgesic METHADONE SCREEN, URINE Routine 03/16/2025 11:30 AM EDT Long-term current use of opiate analgesic POCT URINALYSIS DIPSTICK Routine 02/23/2025 10:43 AM EDT UTI symptoms URINALYSIS, COMPLETE, WITH REFLEX TO CULTURE Routine 02/23/2025 12:00 AM EDT CULTURE, URINE, ROUTINE Routine 02/23/2025 12:00 AM EDT LIPID PANEL, STANDARD Routine 11/04/2024 8:58 AM EDT POCT GLYCATED HEMOGLOBIN, TOTAL Routine 07/15/2024 1:36 PM EST Type 2 diabetes mellitus with hyperglycemia, without long-term current use of insulin ([facility]) BI MAMMOGRAM SCREENING TOMOSYNTHESIS BILATERAL Routine 05/01/2024 3:00 PM EDT HM COLONOSCOPY Routine 04/02/2024 9:55 AM EDT ZZZ HISTORICAL HPV MRNA E6/E7 Routine 03/21/2017 12:00 AM EDT from Last 3 Months or Most Recently Relevant to Health Maintenance Results * (ABNORMAL) POCT urinalysis dipstick manually resulted (05/11/2025 9:39 AM EDT) Only the most recent of2 resultswithin the time period is included. Color, UA Yellow Clarity, UA Clear Glucose, UA Negative Bilirubin, UA Negative Ketones, UA Positive Comment:trace Spec Grav, UA 1.025 Blood, UA Positive(A) Negative, None Detected pH, UA 6.0 Protein, UA Trace Urobilinogen, UA 4.0 Leukocytes, UA Moderate(A) Negative, Rare, Trace Nitrite, UA Positive(A) Negative, None Detected Urine 05/11/2025 9:39 AM EDT Dionne Valerio MD POINT OF CARE TEST ENTER/EDIT OR DERABLES Final Result * US Abdomen Limited (04/25/2025 6:24 PM EDT) Anatomical Region Laterality Modality Abdomen Ultrasound 04/25/2025 6:24 PM EDT Narrative 04/25/2025 6:26 PM EDT [place] [address] Ultrasound Report Signed Patient: Brenna Hope MR# : [id number] : 1965 Acct:[id number] Age/Sex: 59 / F ADM Date: 04/24/25 Loc: .S3 375-[address]: Beth Alvarado MD Ordering Physician: Beth Alvarado MD Date of Service: 04/24/25 Procedure(s): US abdomen limited Accession Number(s): [id number] cc: Beth Alvarado MD; Name,Donny OLIVEIRA Reason for Exam: Ascitis - abd distension CLINICAL HISTORY: Ascitis - abd distension US abdomen limited Comparison: CT/REG/SR - CT ABDOMEN PELVIS W IV CON - 04/23/25 23:17 EDT US/MA/SR - US ABDOMEN LIMITED - 03/28/24 14:21 EDT Findings: Sonographic evaluation of all 4 quadrants of the peritoneal cavity showed no ascites. Impression: 1. No ascites demonstrated within any of the 4 quadrants of the peritoneal cavity This document has been electronically signed by: Elias Mari MD on 04/25/2025 18:24:35 Dictated By: Elias Mari MD Signed By: <Electronically signed by Elias Mari MD in OV> 04/25/251824 DD/ 23 TD/TT: 04/25/251823 Cdl Program Coordinator: Procedure Note Donotuseinterpreter, Image - 04/25/2025 [place] [address] Ultrasound Report Signed Patient: Brenna Hope DMR# : [id number] : 1965Acct:[id number] Age/Sex: 59 / FADM Date: 04/24/25 Loc: .S3 375-[address]: Beth Alvarado MD Ordering Physician: Beth Alvarado MD Date of Service: 04/24/25 Procedure(s): US abdomen limited Accession Number(s): [id number] cc: Beth Alvarado MD; Name,Donny OLIVEIRA Reason for Exam: Ascitis - abd distension CLINICAL HISTORY: Ascitis - abd distension US abdomen limited Comparison: CT/REG/SR - CT ABDOMEN PELVIS W IV CON - 04/23/25 23:17 EDT US/MA/SR - US ABDOMEN LIMITED - 03/28/24 14:21 EDT Findings: Sonographic evaluation of all 4 quadrants of the peritoneal cavity showed no ascites. Impression: 1. No ascites demonstrated within any of the 4 quadrants of the peritoneal cavity This document has been electronically signed by: Elias Mari MD on 04/25/2025 18:24:35 Dictated By: Elias Mari MD Signed By: <Electronically signed by Elias Mari MD in OV> 04/25/251824 DD/ 23 TD/TT: 04/25/251823 Cdl Program Coordinator: us [facility] External Provider IMG US PROCEDURES Edited Result - Final * CT Soft Tissue Neck w/ Contrast (04/25/2025 4:44 PM EDT) Anatomical Region Laterality Modality Head, Neck Computed Tomogra phy 04/25/2025 4:44 PM EDT Narrative 04/27/2025 11:02 AM EDT [address] [address] [address] Scan Report Signed Patient: Brenna Hope MR# : [id number] : 1965 Acct:[id number] Age/Sex: 59 / F ADM Date: 04/24/25 Loc: .S3 375-[address]: Olya Beckwith NP Ordering Physician: Beth Alvarado MD Date of Service: 04/25/25 Procedure(s): CT soft tissue neck w IV con Accession Number(s): [id number] cc: Beth Alvarado MD; Name,Donny OLIVEIRA Report Number: [id number]: Total DLP = 600.00 mGy-cm Reason for Exam: submandibular lymphadenopathy vs abscess EXAMINATION: CT SOFT TISSUE NECK WITH CONTRAST CLINICAL INFORMATION: Submandibular lymphadenopathy versus abscess. COMPARISON: None available. TECHNIQUE: Following the intravenous administration of 60 mL of Omnipaque 350 intravenous contrast, helical imaging was performed in the axial plane with generation of coronal and sagittal reformatted images. This CT examination was performed using dose optimization techniques as appropriate, variously including the following: *Automated exposure control *Adjustment of mA and/or kV according to patient size (this includes techniques or standardized protocols for targeted exams where dose is matched to indication/reason for exam; i.e. extremities or head) *Use of iterative reconstruction technique DLP: 600 mGy centimeter. FINDINGS: Skull base, nasopharynx, retropharynx, oropharynx, hypopharynx and larynx demonstrated no masses or fluid collections. Billiard Table Assembler spaces, parapharyngeal spaces, carotid spaces demonstrated no gross masses or fluid collections. Salivary glands demonstrated no gross sialolithiasis or masses. There is edema pattern without fluid collections above and beneath the platysma at the submandibular and upper neck. Nonspecific prominent, less than 1 cm cervical lymph nodes mostly at the level 2, bilaterally. The oral cavity and sublingual compartments demonstrated no gross masses or fluid collections. Thyroid gland is not enlarged. No dominant nodules in the thyroid gland. The main vessels are patent. Mixed plaques in the left ICA. Retropharyngeal trajectory right ICA. There is a nasogastric catheter inserted right nasal cavity towards the esophagus. No masses in the intraconal or extraconal compartments of the orbits. Bilateral apical lung scarring. Spondylosis in the upper thoracic spine.. CT/CT soft tissue neck w IV con IMPRESSION: Edema pattern without fluid collections in the submandibular compartment and upper neck. Nonspecific prominent cervical lymph nodes. Electronically signed by: Will Langley MD 04/27/2025 10:59 AM EDT RP Dictated By: Will Alarcon MD Signed By: <Electronically signed by Will Dewey MD in OV> 04/27/25 1059 DD/ 1644 TD/TT: 04/25/25 1705 Cdl Program Coordinator: Procedure Note Donotuseinterpreter, Image - 04/27/[address] [place] [address] [address] Scan Report Signed Patient: Brenna Hope DMR# : [id number] : 1965Acct:[id number] Age/Sex: 59 / FADM Date: 04/24/25 Loc: .S3 375-[address]: Olya Beckwith NP Ordering Physician: Beth Alvarado MD Date of Service: 04/25/25 Procedure(s): CT soft tissue neck w IV con Accession Number(s): [id number] cc: Beth Alvarado MD; Name,Donny OLIVEIRA Report Number: [id number]: Total DLP = 600.00 mGy-cm Reason for Exam: submandibular lymphadenopathy vs abscess EXAMINATION: CT SOFT TISSUE NECK WITH CONTRAST CLINICAL INFORMATION: Submandibular lymphadenopathy versus abscess. COMPARISON: None available. TECHNIQUE: Following the intravenous administration of 60 mL of Omnipaque 350 intravenous contrast, helical imaging was performed in the axial plane with generation of coronal and sagittal reformatted images. This CT examination was performed using dose optimization techniques as appropriate, variously including the following: *Automated exposure control *Adjustment of mA and/or kV according to patient size (this includes techniques or standardized protocols for targeted exams where dose is matched to indication/reason for exam; i.e. extremities or head) *Use of iterative reconstruction technique DLP: 600 mGy centimeter. FINDINGS: Skull base, nasopharynx, retropharynx, oropharynx, hypopharynx and larynx demonstrated no masses or fluid collections. Billiard Table Assembler spaces, parapharyngeal spaces, carotid spaces demonstrated no gross masses or fluid collections. Salivary glands demonstrated no gross sialolithiasis or masses. There is edema pattern without fluid collections above and beneath the platysma at the submandibular and upper neck. Nonspecific prominent, less than 1 cm cervical lymph nodes mostly at the level 2, bilaterally. The oral cavity and sublingual compartments demonstrated no gross masses or fluid collections. Thyroid gland is not enlarged. No dominant nodules in the thyroid gland. The main vessels are patent. Mixed plaques in the left ICA. Retropharyngeal trajectory right ICA. There is a nasogastric catheter inserted right nasal cavity towards the esophagus. No masses in the intraconal or extraconal compartments of the orbits. Bilateral apical lung scarring. Spondylosis in the upper thoracic spine.. CT/CT soft tissue neck w IV con IMPRESSION: Edema pattern without fluid collections in the submandibular compartment and upper neck. Nonspecific prominent cervical lymph nodes. Electronically signed by: Will Langley MD 04/27/2025 10:59 AM EDT Dictated By: Will Alarcon MD Signed By: <Electronically signed by Will Dewey MDin OV> 04/27/25 1059 DD/ 1644 TD/TT: 04/25/25 1705 Cdl Program Coordinator: [facility] External Provider IMG CT PROCEDURES Edited Result - Final * XR Chest 1 View (04/24/2025 5:23 AM EDT) Anatomical Region Laterality Modality Chest Radiographic My ging 04/24/2025 5:23 AM EDT Narrative 04/24/2025 5:25 AM EDT [address] [address] XRay Report Signed Patient: Brenna Hope MR# : [id number] : 1965 Acct:[id number] Age/Sex: 59 / F ADM Date: 04/24/25 Loc: [facility] Attending Dr: Srinivasa Leiva MD Ordering Physician: Srinivasa Mccarty MD Date of Service: 04/24/25 Procedure(s): XR chest 1V Accession Number(s): [id number] cc: Srinivasa Mccarty MD; [facility] Reason for Exam: tube placement CLINICAL HISTORY: tube placement 1 view chest x-ray Comparison: CR/SR - XR CHEST 2 VIEWS - 06/18/24 15:49 EDT Findings: The lungs are clear. Normal size heart. No acute fracture. Well-positioned enteric tube. IMPRESSION: Well-positioned enteric tube. This document has been electronically signed by: Yogi Kunz MD on 04/24/2025 05:23:25 Dictated By: Yogi Kunz MD Signed By: <Electronically signed by Yogi Kunz MD in OV> 04/24/25524 DD/ 2 TD/TT: 04/24/25522 Cdl Program Coordinator: Procedure Note Donotuseinterpreter, Image - 04/24/2025 [place] [address] XRay Report Signed Patient: Brenna Hope DMR# : [id number] : 1965Acct:[id number] Age/Sex: 59 / FADM Date: 04/24/25 Loc: [facility] Attending Dr: Srinivasa Leiva MD Ordering Physician: Srinivasa Mccarty MD Date of Service: 04/24/25 Procedure(s): XR chest 1V Accession Number(s): [id number] cc: Srinivasa Mccarty MD; [facility] Reason for Exam: tube placement CLINICAL HISTORY: tube placement 1 view chest x-ray Comparison: CR/SR - XR CHEST 2 VIEWS - 06/18/24 15:49 EDT Findings: The lungs are clear. Normal size heart. No acute fracture. Well-positioned enteric tube. IMPRESSION: Well-positioned enteric tube. This document has been electronically signed by: Yogi Kunz MD on 04/24/2025 05:23:25 Dictated By: Yogi Kunz MD Signed By: <Electronically signed by Yogi Kunz MD in OV> 04/24/25524 DD/ 2 TD/TT: 04/24/25522 Cdl Program Coordinator: [facility] External Provider IMG XR PROCEDURES Edited Result - Final * CT Abdomen Pelvis w/ Contrast (04/24/2025 1:00 AM EDT) Anatomical Region Laterality Modality Body, Pelvis, Abdomen Computed T omography 04/24/2025 1:00 AM EDT Narrative 04/24/2025 1:02 AM EDT [place] [address] CT Scan Report Signed Patient: Brenna Hope MR# : [id number] : 1965 Acct:[id number] Age/Sex: 59 / F ADM Date: 04/23/25 Loc: HO.ED Attending Dr: Ordering Physician: Nataliia Dixon DO Date of Service: 04/23/25 Procedure(s): CT abdomen pelvis w IV con Accession Number(s): [id number] cc: Nataliia Dixon DO; [facility] Report Number: [id number]: Total DLP = 699.00 mGy-cm Reason for Exam: no stool, no flatus, pain and distended abd CLINICAL HISTORY: no stool, no flatus, pain and distended abd CT abdomen and pelvis with contrast Comparison: CT of the abdomen and pelvis from 03/28/2024 Findings: Mild bibasilar atelectasis and motion artifacts. No significant change solid abdominal organs. No hydronephrosis. Mild gallbladder wall thickening suggested including of the fundus by CT. No new or enlarging lymphadenopathy by CT. No small bowel obstruction. Severe distention of the large intestine with gas and stool; with distention of the large intestine including sigmoid measuring 6 cm diameter. The appendix is not definitively seen with the apparently redundant colon including redundant transverse colon. Uterus is anteverted and mildly retroflexed. Mild wall thickening of the urinary bladder is nonspecific. No adnexal soft tissue mass by CT. Vascular calcifications are redemonstrated including phleboliths in the pelvis. Mild subcutaneous edema is nonspecific in the [id number]. Degenerative changes include facet arthropathy of the imaged spine. IMPRESSION: 1. Severe stool burden of the distended in redundant large intestine. Colonic outlet obstruction not excluded by imaging. 2. No small bowel obstruction. 3. Nonspecific wall thickening of the urinary bladder. This document has been electronically signed by: Anthony Sanchez MD on 04/24/2025 01:00:36 Dictated By: Anthony Sanchez MD Signed By: <Electronically signed by Anthony Sanchez MD in OV> 04/24/25100 DD/ TD/TT: 04/24/2599 Cdl Program Coordinator: Procedure Note Donotuseinterpreter, Image - 04/24/[address] [address] [address] Scan Report Signed Patient: Brenna Hope DMR# : [id number] : 1965Acct:[id number] Age/Sex: 59 / FADM Date: 04/23/25 Loc: HO.ED Attending Dr: Ordering Physician: Nataliia Dixon DO Date of Service: 04/23/25 Procedure(s): CT abdomen pelvis w IV con Accession Number(s): [id number] cc: Nataliia Dixon DO; [facility] Report Number: [id number]: Total DLP = 699.00 mGy-cm Reason for Exam: no stool, no flatus, pain and distended abd CLINICAL HISTORY: no stool, no flatus, pain and distended abd CT abdomen and pelvis with contrast Comparison: CT of the abdomen and pelvis from 03/28/2024 Findings: Mild bibasilar atelectasis and motion artifacts. No significant change solid abdominal organs. No hydronephrosis. Mild gallbladder wall thickening suggested including of the fundus by CT. No new or enlarging lymphadenopathy by CT. No small bowel obstruction. Severe distention of the large intestine with gas and stool; with distention of the large intestine including sigmoid measuring 6 cm diameter. The appendix is not definitively seen with the apparently redundant colon including redundant transverse colon. Uterus is anteverted and mildly retroflexed. Mild wall thickening of the urinary bladder is nonspecific. No adnexal soft tissue mass by CT. Vascular calcifications are redemonstrated including phleboliths in the pelvis. Mild subcutaneous edema is nonspecific in the [id number]-te-fmlt. Degenerative changes include facet arthropathy of the imaged spine. IMPRESSION: 1. Severe stool burden of the distended in redundant large intestine. Colonic outlet obstruction not excluded by imaging. 2. No small bowel obstruction. 3. Nonspecific wall thickening of the urinary bladder. This document has been electronically signed by: Anthony Sanchez MD on 04/24/2025 01:00:36 Dictated By: Anthony Sanchez MD Signed By: <Electronically signed by Anthony Sanchez MD in OV> 04/24/25100 DD/ TD/TT: 04/24/2599 Cdl Program Coordinator: [facility] External Provider IMG CT PROCEDURES Final Result * (ABNORMAL) CBC auto differential (04/23/2025 8:25 PM EDT) White Blood Count 9.8 4.8 - 10.8 X10*3/uL [facility] Red Blood Count 3.87(L) 4.20 - 5.50 X10*6/uL [facility] Hemoglobin 8.2(L) 12.0 - 16.0 g/dl [facility] Hematocrit 28.1(L) 37.0 - 47.0 % [facility] Mean Corpuscular Volume 72.6(L) 80.0 - 98.0 fL [facility] Mean Corpuscular Hemoglobin 21.2(L) 27.0 - 33.0 pg [facility] Mean Corpuscular HGB Conc 29.2(L) 31.0 - 35.0 g/dl [facility] Red Cell Distribution Width 21.3(H) 11.0 - 16.0 % [facility] Platelet Count 403(H) 160 - 400 X10*3/uL [facility] Mean Platelet Volume 11.1 9.4 - 12.3 fL [facility] Neutrophils Percent Auto 62.2 45 - 73 % [facility] Imm Gran Pct Auto 0.4 0.0 - 0.4 % [facility] Lymphocytes Percent Auto 26.5 20 - 40 % [facility] Monocytes Percent Auto 9.7 2 - 11 % [facility] Eosinophils Percent Auto 1.0 0 - 4 % [facility] Basophils Percent Auto 0.2 0 - 2 % [facility] NRBC Pct Auto 0.3(H) 0.0 - 0.2 /100WBC [facility] Neutrophils Absolute Auto 6.1 2.0 - 8.3 x10*3/uL [facility] Imm Gran Abs Auto 0.04(H) 0.00 - 0.03 X10*3/uL [facility] Lymphocytes Absolute Auto 2.6 1.2 - 4.9 X10*3/uL [facility] Monocytes Absolute Auto 1.0 0.1 - 1.2 X10*3/uL [facility] Eosinophils Absolute Auto 0.1 0.0 - 0.4 X10*3/uL [facility] Basophils Absolute Auto 0.0 0.0 - 0.2 X10*3/uL [facility] NRBC Abs Auto 0.030(H) 0.0 - 0.012 X10*3/uL [facility] 04/23/2025 8:25 PM EDT 04/23/2025 8:28 PM EDT us Generic External Data Provider LAB BLOOD ORDERAB LES Final Result [facility] [address] [place] [phone] * (ABNORMAL) POCT BANG-14 Urine Drug [...] - 03/16/2025 11:49 AM EDT UTOX cup Lot#[id number] Exp. 05/26/26 Internal Pass Control Brenna Brower MD POINT OF CARE TEST EN TER/EDIT ORDERABLES Final Result * Drug Monitoring, Methadone Metabolite, Screen, Urine (03/16/2025 11:30 AM EDT) Methadone Screen, Urine Not Detected Not Detect ng/mL [facility] Comment:Methadone cut-off is 300 ng/mL.Positive results are unconfirmed and should not be used fornon-medical purposes. Urine (Urine, Random) 03/16/2025 11:30 AM EDT 03/16/2025 1:37 PM EDT us Brenna Brower MD LAB URINE ORDERABLES Final Result [facility] [address] [place] [phone] * (ABNORMAL) Urinalysis, Complete, with Reflex to Culture (02/23/2025 12:00 AM EDT) Color Urine Yellow [facility] Appearance Urine Cloudy [facility] PH 6.0 5.0 - 9.0 [facility] Glucose Urine UA Negative Negative mg/dL [facility] Urine Blood Large (3+)(A) Negative [facility] Specific [place] - Urine 1.020 1.005 - 1.025 [facility] Urine Protein 30 (1+)(A) Neg-Trace mg/dL [facility] Urine Ketones 15 Negative mg/dL [facility] Nitrite Urine Negative Negative [facility] Leukocyte Esterase Urine Large (3+)(A) Negative [facility] RBC Urine >20(A) 0 - 2 /HPF [facility] Urine WBC >50(A) 0 - 5 /HPF [facility] Urine Squamous Epithelial Cell 0-2 0 - 2 /HPF [facility] Urine Bacteria Trace None Seen [facility] Hyaline Casts, Urine 0-2 0 - 2 /LPF [facility] 02/23/2025 02/23/2025 Narrative [facility] - 02/23/2025 6:42 PM EDT Urine, Clean Catch [employer] LAB URINE ORDERABLES Final Resu lt Performing Organization Address City/State/[facility] Co de Phone Number [facility] [address] [place] [phone] * Culture, Urine, Routine (02/23/2025 12:00 AM EDT) Urine Urine specimen obtained by clean catch procedure / Unknown 02/23/2025 02/23/2025 Comment:[facility] Narrative [facility] - 02/26/2025 7:53 AM EDT Escherichia coli ESBL Note: NOTE: Extended-Spectrum Beta-Lactamase enzyme present Quant > 100,000 cfu/mL Escherichia coli: Ampicillin >=32(R) Escherichia coli: Cefazolin (Urine) >=32(R) Escherichia coli: Cefepime >=32(R) Escherichia coli: Ceftriaxone >=64(R) Escherichia coli: Ciprofloxacin >=4(R) Escherichia coli: Ertapenem <=0.12(S) Escherichia coli: Gentamicin >=16(R) Escherichia coli: Nitrofurantoin <=16(S) Escherichia coli: Trimethoprim/Sulfamethoxazole >=320(R) Specimen Source: Urine clean catch [employer] LAB MICROBIOLOGY - GENERAL ORDE SOLOMON Final Result Performing Organization Address [facility] Co de Phone Number [facility] [address] [place] [phone] * Lipid Panel, Standard (11/04/2024 8:58 AM EDT) Triglycerides 57 <150 mg/dL [facility] Comment:Desirable Triglyceri de: less than 150 mg/dLBorderline High Triglyceride 150-199 mg/dLHigh Triglyceride: 200-499 mg/dLVery High Triglyceride: greater than or equal to 5OO mg/dL Cholesterol 115 <200 mg/dL [facility] Comment:Desirable Cholestero l: less than 200 mg/dLBorderline High Cholesterol: 200-239 mg/dLHigh Cholesterol: greater than 239 mg/dL LDL Cholesterol Calculated 63 <100 mg/dL [facility] Comment:Desirable LDL: less than 100 mg/dLNear Optimal/Above Optimal LDL: 110- 129 mg/dLBorderline High LDL: 130-159 mg/dLHigh LDL: 160-189 mg/dLVery High LDL: greater than or equal to 190 mg/dL HDL Cholesterol 41 >40 mg/dL [facility] Comment:Desirable HDL: great er than 40 mg/dL Note: This HDL assay may give artificially low results in patients with liver disease. 11/04/2024 8:58 AM EDT 11/04/2024 9:06 AM EDT Brenna Brower MD LAB BLOOD ORDERABLES Final Result Performing Organization Address [facility]/ZIP Co de Phone Number [facility] [address] [place] [phone] * (ABNORMAL) POCT HGB A1C (07/15/2024 1:36 PM EST) Hemoglobin A1C 6.0 4.0 - 6.0 % QC Media Lot # [id number] Lot# Expiration Date [id number] Blood 07/15/2024 1:36 PM EST us Brenna Brower MD POINT OF CARE TEST EN TER/EDIT ORDERABLES Final Result * BI Mammogram Screening Tomosynthesis Bilateral (05/01/2024 3:00 PM EDT) Anatomical Region Laterality Modality Breast Bilateral Mammography 05/01/2024 3:00 PM EDT Narrative 05/15/2024 8:10 PM EDT [facility] [place] [address] Mammography Report Signed Patient: Brenna Hope MR# : [id number] : 1965 Acct:[id number] Age/Sex: 58 / F ADM Date: 05/01/24 Loc: HOBRUNO Attending Dr: Brenna Brower MD Ordering Physician: Brenna Liriano MD Results: 2Benign Findings Date of Service: 05/01/24 Follow Up: 1 Year From Orig ina Mammogram Procedure(s): MM tomosynthesis screening BI Accession Number(s): [id number] cc: Brenna Liriano MD EXAMINATION: MM SCREENING [...] OV> 05/15/242006 DD/ 1500 TD/TT: 05/01/24 1521 Cdl Program Coordinator: Procedure Note Donotuseinterpreter, Image - 05/15/[facility] [address] [place], [place] [address] Mammography Report Signed Patient: Brenna Hope DMR# : [id number] : 1965Acct:[id number] Age/Sex: 58 / FADM Date: 05/01/24 Loc: HO.MAMMO Attending Dr: Brenna Brower MD Ordering Physician: Brenna Liriano MDResults: 2Benign Findings Date of Service: 05/01/24Follow Up: 1 Year From Orig inal Mammogram Procedure(s): MM tomosynthesis screening BI Accession Number(s): [id number] cc: Brenna Liriano MD EXAMINATION: MM SCREENING [...] OV> 05/15/242006 DD/ 1500 TD/TT: 05/01/24 1521 Cdl Program Coordinator: us Brenna Brower MD IMG BI PROCEDURES Joe abdullahi Result - Final * Hm Colonoscopy (04/02/2024 9:55 AM EDT) Colonoscopy Normal Normal Narrative Jacqueline Valiente - 04/02/2024 9:55 AM EDT Repeat Colonoscopy in 5 years or earlier if clinically indicated see the external hospital admission note on 04/02/2024 us Historical Provider MD HEALTH MAINTENANCE Edited Result - Final * HPV mRNA E6/E7 (03/21/2017 12:00 AM EDT) HPV mRNA E6/E7 Not Detected NOT DETECTED [facility] Comment: This test was performed using the APTIMA(R) HPV Assay ([employer] This assay detects E6/E7 viral messenger RNA (mRNA) from 14 high-risk HPV types (16,18,31,33,35,39,45,51, 52,56,58,59,66,68). For additional information please refer to: http://education.Crowdcast/faq/DWR229l4 (This link is being provided for informational/ educational purposes only.) Test Performed by [employer], [employer]) [facility], [address] [place] [phone] Eliseo Sierra M.D., Ph.D., Director of Laboratories , [facility] [id number] Please note: Effective 05/01/2016, HPV testing will be performed using [employer]'s APTIMA test which targets mRNA. Detecting mRNA instead of DNA, as in older methods, offers significant improvements in specificity. 03/21/2017 us Indira Estrada CNM HISTORICAL/NON ORDERABLE LABS Final Result [facility] [address] from Last 3 Months or Most Recently Relevant to Health Maintenance Insurance [facility] C3 Care Teams Personal Companion Relationship Specialty Start Date End Date Brenna Liriano MD [address] [place] [phone] PCP - General [facility]
--- OUTSIDE RECORDS SUMMARY | 2025-05-19 02:39 | XMS_ITS | Encounter Summary ---
Author Organization [email or web address] Address [address] [place] [address] [address] [place] [address] Care Team Providers Care Cone Picker Name Role Phone Brenna Liriano MD Primary Care Provide r Reason for Visit * Reason Comments Med Refill Encounter Details Date Type Department Care Team ([facility] Contact Info) Description 10/23/2022 Refill [facility] MEDICINE [address] [place] [phone] Hina Mccormack MD [address] [place] [address] Other chronic pain Social History Tobacco Use [...] Visit [facility] OPTOMETRY [address], [place] [phone] 06/10/2025 11:30 AM EDT Clinical Support [facility] [address], [place] [phone] Avelina Sterling, RN 07/22/2025 2:00 PM EST Office Visit [facility] [address] [place] [phone] Brenna Liriano MD [address] [place] [address] [phone] documented as of this encounter Visit Diagnoses Diagnosis Other chronic pain documented in this encounter Care Teams Cone Picker Relationship Specialty Start Date End Date Brenna Liriano MD [address] [place] [phone] PCP - General Family Medicine 07/01/19 [place] [facility] 06/26/24 documented as of this encounter
--- NOTE | 2025-05-19 04:31 | ED.GENADULT ---
HPI - General Adult General Chief complaint: Abdominal Pain Stated complaint: pain and has not used bathroom 3 days Time Seen by Provider: 05/19/25 03:31 Source: patient Limitations: language barrier History of Present Illness ED Provider: Génesis Stokes PA-C HPI narrative: 59-year-old female with a history of GERD, Ileus, Constipation, NIDDM, Hepatic steatosis, HLD, hypertension, UTI, asthma, osteoarthritis, right knee replacement, schizophrenia. Presents with abdominal pain x1 week. Associated abdominal distention which has progressed throughout the week. Last bowel movement was 3 days ago. Patient denies inability to pass flatus, nausea or vomiting no fevers. Patient states she was recently treated for urinary tract infection, she is still having symptoms and passing blood in her urine. Related Data Home Medications ?Medication ?Instructions ?Recorded ?Confirmed sennosides 8.6 mg tablet (senna) 17.2 mg PO BEDTIME PRN constipation 12/13/22 05/19/25 albuterol sulfate 90 mcg/actuation 2 puff inhalation Q4-6H PRN 06/18/23 05/19/25 aerosol inhaler (Ventolin HFA) Shortness Of Breath Or Wheezing sucralfate 1 gram tablet 1 g PO TID 06/18/23 05/19/25 tramadol 50 mg tablet 50 mg PO Q12H PRN Severe Pain 06/18/23 05/19/25 (Scale Score 7-10) divalproex 500 mg tablet,extended 1,000 mg PO BEDTIME 10/01/23 05/19/25 release 24 hr clonazepam 0.5 mg tablet 0.5 mg PO DAILY 03/29/24 05/19/25 lisinopril 10 mg tablet 10 mg PO DAILY 03/29/24 05/19/25 atorvastatin 40 mg tablet 40 mg PO BEDTIME 06/18/24 05/19/25 omeprazole 20 mg capsule,delayed 20 mg PO BID@0630,1630 06/18/24 05/19/25 release clozapine 100 mg tablet 300 mg PO BEDTIME 06/19/24 05/19/25 divalproex 250 mg tablet,extended 250 mg PO BEDTIME 06/19/24 05/19/25 release 24 hr docusate sodium 100 mg capsule 100 mg PO BID PRN Constipation 06/19/24 05/19/25 loratadine 10 mg tablet 10 mg PO DAILY 06/19/24 05/19/25 lactulose 10 gram/15 mL oral 45 ml PO DAILY 07/21/24 05/19/25 solution albuterol sulfate 2.5 mg/3 mL 2.5 mg inhalation Q6H PRN wheezing 04/24/25 05/19/25 (0.083 %) solution for nebulization diltiazem HCl 120 mg 120 mg PO DAILY 04/24/25 05/19/25 capsule,extended release 12 hr ferrous sulfate 325 mg (65 mg 325 mg PO Q2D 04/24/25 05/19/25 iron) tablet,delayed release fluoxetine 10 mg capsule 30 mg PO DAILY 04/24/25 05/19/25 metformin 500 mg tablet,extended 500 mg PO BIDWM 04/24/25 05/19/25 release 24 hr polyethylene glycol 3350 17 17 g PO TID PRN Constipation 04/24/25 05/19/25 gram/dose oral powder (Miralax) Previous Rx's ?Medication ?Instructions ?Recorded clonazepam 1 mg tablet 1 mg PO BEDTIME #30 tabs 07/02/23 montelukast 10 mg tablet 10 mg PO DAILY #30 tabs 07/02/23 Allergies Allergy/AdvReac Type Severity Reaction Status Date / Time diazepam (From Valium) Allergy Severe Vomiting Verified 05/18/25 21:27 haloperidol (From Haldol) Allergy Unknown Unknown Verified 05/18/25 21:27 Penicillins Allergy Unknown Unknown Verified 05/18/25 21:27 risperidone (From Risperdal) Allergy Unknown Unknown Verified 05/18/25 21:27 aspirin (Aspirin) AdvReac Intermediate Vomiting Verified 05/18/25 21:27 trazodone (TRAZODONE) AdvReac Intermediate NAUSEA & Verified 05/18/25 21:27 VOMITING Review of Systems Review of Systems: Yes all other systems are reviewed and are negative Constitutional: Constitutional: Denies fatigue and Denies fever(s) Cardiovascular: Cardiovascular: Denies chest pain and Denies dyspnea Respiratory: Respiratory: Denies dyspnea Gastrointestinal: Gastrointestinal: Reports abdominal pain, Reports bloating, Reports constipation, Denies nausea and Denies vomiting Genitourinary: Genitourinary: Reports hematuria and Reports dysuria Endocrine: Endocrine: Denies fatigue PMFSH Past Medical History Attestation statement: The following information was validated with the patient. Medical History Hepatic steatosis Anemia Diabetes Morbid obesity due to excess calories Anxiety Chronic mental illness COPD (chronic obstructive pulmonary disease) Hyperlipidemia Schizophrenia Asthma Surgical History Hx of colonoscopy History of tubal ligation H/O right knee surgery History of appendectomy Family History Family History Father Throat cancer Mother CVA (cerebral vascular accident) Brother Drug overdose Sister No problems noted. Sister No problems noted. Son No problems noted. Son No problems noted. Social History 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: Other Household Members Other:: Lanny Soto, Inocencio Soto, - foster parents Housing: House Are you a primary animal care service worker to a significant other at home: No Do you presently have visiting nurse or other home services: Yes (lives with caregiver multimedia services manager) Alcohol intake: never Comment: pt moves well s sba Patient Tobacco Use Status: Former Tobacco user Tobacco use type: Cigarette Cigarettes Per Day: 10 Smoked in Last 30 Days: No e-Cigarette/Vaping Use: Never Used Second Hand Smoke Exposure: Yes Use of substances other than those prescribed or required for medical reasons: No Have you been hit, kicked, punched, or otherwise hurt by someone within the past year? If so, by whom?: No Do you feel safe in your current relationship?: No Current Relationship Advance Directives: Yes Advance Directives on File: Yes Advance Directives Date on File: 10/29/24 Do you have a plan to hurt others: No Plan Recently lost weight without trying: No Patient : No : No Poor oral hygiene: No service: No Current occupational status: disabled Sexual orientation: Straight/Heterosexual Physical Exam ED Vital Signs: Vital Signs - 24 hr 05/18/25 21:22 05/19/25 04:01 05/19/25 05:25 Temperature 97.5 F 97.8 F Pulse Rate 110 H 92 94 Respiratory Rate 18 16 18 Blood Pressure 102/51 L 121/67 Pulse Oximetry 94 97 Oxygen Delivery Method Room Air Room Air 05/19/25 06:04 05/19/25 07:42 05/19/25 10:20 Temperature 98.1 F 97.4 F Pulse Rate 96 92 95 Respiratory Rate 16 18 16 Blood Pressure 123/72 128/44 L 115/53 L Pulse Oximetry 97 93 95 Oxygen Delivery Method Room Air Room Air Room Air BMI result Body Mass Index 35.2 Const Other: Alert ill-appearing Orientation/consciousness: patient oriented x3 Resp Effort & Inspection: normal respiratory effort Cardio Other: Normal peripheral perfusion GI Other: Abdomen is grossly distended and tense, generalized tenderness to palpation most focal along lower abdominal border no objective guarding Skin Other: Warm dry no rash Neuro General: patient oriented x3, gait normal, no focal motor deficits and CN's II-XI intact bilaterally Psych Other: Cooperative Course Course Course Narrative: Signed out to day team pending imaging and admission Reevaluation(s) Reevaluation #1: DR. Patten's Progress note 09:00, 05/19/2025: signed out to me await for CT abdomen and pelvis, CT abdomen pelvis is showing sigmoid volvulus, case was discussed with Dr. Dominguez on-call for surgery who will admit the patient and obtain GI consult for sigmoidoscopy hoping for manual reduction.. Time: 09:17 Medications Administered Generic Name Dose Route Start Last Admin Trade Name Freq PRN Reason Stop Dose Admin Enoxaparin Sodium 40 mg 05/19/25 12:00 05/19/25 11:50 Enoxaparin Sodium 40 Mg/0.4 Ml Syringe SUBCUT 40 mg Q24H LAXMI Administration Hydromorphone HCl 1 mg 05/19/25 11:54 05/19/25 18:37 Hydromorphone Hcl 1 Mg/Ml Syringe IVPUSH 1 mg Q4H PRN Administration Pain, Severe (Pain Scale 7-10) Protocol Sodium Chloride 1,000 mls @ 100 mls/hr 05/19/25 11:30 05/19/25 11:50 Ns IVCONT 100 mls/hr .Q10H LAXMI Administration Sodium Chloride 3 ml 05/19/25 16:00 05/19/25 18:31 0.9 % Sodium Chloride Flush 3 Ml Syringe IVFLUSH Not Given QSHIFT LAXMI Discontinued Medications Generic Name Dose Route Start Last Admin Trade Name Freq PRN Reason Stop Dose Admin Albuterol Sulfate 2.5 mg 05/19/25 05:10 05/19/25 05:23 Albuterol Sulfate (0.083%) 2.5 Mg/3 Ml Vial.Neb INHALE 05/19/25 05:11 2.5 mg ONCE ONE Administration Diatrizoate Meglum/Diatrizoate Sod 30 ml 05/19/25 08:10 05/19/25 08:11 Diatrizoate Meglumine, Sodium 30 Ml Solution PO 05/19/25 08:11 30 ml ONCE ONE Administration Hydromorphone HCl 1 mg 05/19/25 07:23 05/19/25 07:44 Hydromorphone Hcl 1 Mg/Ml Syringe IVPUSH 05/19/25 07:24 1 mg ONCE ONE Administration Protocol Sodium Chloride 500 mls @ 500 mls/hr 05/19/25 04:09 05/19/25 06:01 Ns IV 05/19/25 05:08 Infused .Q1H ONE Infusion Calcium Gluconate 2 gm in 100 mls @ 50 mls/hr 05/19/25 05:10 05/19/25 08:19 Calcium Gluconate IV 05/19/25 07:09 Infused ONCE ONE Infusion Lactated Ringer's 1,000 mls @ 80 mls/hr 05/19/25 14:00 05/19/25 18:31 Lr IVCONT Infused .[id number] LAXMI Infusion Iohexol 100 ml 05/19/25 08:01 05/19/25 08:10 Iohexol 350 Mg/Ml 100 Ml Infus..Btl IV 05/19/25 08:02 85 ml ONCE ONE Administration Ketorolac Tromethamine 15 mg 05/19/25 07:23 05/19/25 07:45 Ketorolac Tromethamine 15 Mg/Ml Vial IVPUSH 05/19/25 07:24 15 mg ONCE ONE Administration Morphine Sulfate 4 mg 05/19/25 04:09 05/19/25 04:59 Morphine Sulfate 4 Mg/Ml Cartridge IVPUSH 05/19/25 04:10 4 mg ONCE ONE Administration Protocol Ondansetron HCl 4 mg 05/19/25 04:10 05/19/25 04:58 Ondansetron Hcl 4 Mg/2 Ml Vial IVPUSH 05/19/25 04:11 4 mg ONCE ONE Administration Sodium Zirconium Cyclosilicate 10 gm 05/19/25 05:10 05/19/25 05:41 Sodium Zirconium Cyclosilicate 10 Gm Powd.Pack PO 05/19/25 05:11 10 gm ONCE ONE Administration Procedures Procedure Narrative Procedure Narrative: Ultrasound-guided IV 20 gauge 1-3/4 inch IV placed in left upper extremity. Adequate blood return flushes well secured with Tegaderm Medical Decision Making Medical Decision Making [facility] Narrative: 59-year-old female with a history of GERD, Ileus, Constipation, NIDDM, Hepatic steatosis, HLD, hypertension, UTI, asthma, osteoarthritis, right knee replacement, schizophrenia. Presents with abdominal pain x1 week. Associated abdominal distention which has progressed throughout the week. Last bowel movement was 3 days ago. Patient denies inability to pass flatus, nausea or vomiting no fevers. Patient states she was recently treated for urinary tract infection, she is still having symptoms and passing blood in her urine. Problem: Hepatic steatosis, diabetes, known ileus, schizophrenia History: Per patient I have considered the following differential diagnoses: New onset cirrhosis with a ascites, SBP, SBO, ileus, Plan: The patient's abdomen is grossly distended, she was recently admitted for ileus versus SBO the beginning of April. This is my greatest concern given her presentation and nature of her exam. We will be obtaining a CT scan with the oral contrast, giving fluid morphine and Zofran. We will obtain screening labs. She does have an underlying diagnosis of hepatic steatosis, perhaps she is developing cirrhosis and now has a ascites. She may require a diagnostic tap to rule out SBP, we will review her abdomen with bedside ultrasound. I have independently reviewed the following tests: Labs: CT abdomen and pelvis: Differential Diagnosis Differential Diagnoses: The differential diagnosis associated with the presentation includes See medical decision-making Admission/Observation Consideration of admission/observation: Escalation of care including admission/observation considered Likely admission Consult Healthcare Provider Management of the patient was discussed with: Hospitalist Lab Data [facility] Lab Attestation statement: I reviewed the patient's lab results. 05/18/25 21:40 05/19/25 13:20 Labs: Lab Results 05/18/25 05/18/25 05/19/25 Range/Units 21:40 23:07 10:16 WBC 10.1 (4.8-10.8) X10*3/uL RBC 3.78 L (4.20-5.50) X10*6/uL Hgb 8.2 L (12.0-16.0) g/dl Hct 27.3 L (37.0-47.0) % MCV 72.2 L (80.0-98.0) fL MCH 21.7 L (27.0-33.0) pg MCHC 30.0 L (31.0-35.0) g/dl RDW 20.9 H (11.0-16.0) % Plt Count 495 H D (160-400) X10*3/uL MPV 10.5 (9.4-12.3) fL Immature Gran % (Auto) 0.6 H (0.0-0.4) % Neut % (Auto) 64.2 (45-73) % Lymph % (Auto) 23.9 (20-40) % [place] % (Auto) 10.2 (2-11) % Eos % (Auto) 0.9 (0-4) % Baso % (Auto) 0.2 (0-2) % Lymph # (Auto) 2.4 (1.2-4.9) X10*3/uL [place] # (Auto) 1.0 (0.1-1.2) X10*3/uL Eos # (Auto) 0.1 (0.0-0.4) X10*3/uL Baso # (Auto) 0.0 (0.0-0.2) X10*3/uL Abs Immat Gran (auto) 0.06 H (0.00-0.03) X10*3/uL Absolute Neuts (auto) 6.5 (2.0-8.3) x10*3/uL Absolute Nucleated RBC 0.000 (0.0-0.012) X10*3/uL Nucleated RBC % (auto) 0.0 (0.0-0.2) /100WBC Sodium 133 L (135-145) mmol/L Potassium 5.8 H D (3.3-5.1) mmol/L Chloride 97 (96-108) mmol/L Carbon Dioxide 24 (22-29) mmol/L Anion Gap 18 (12-20) BUN 25 H (9-16) mg/dL Creatinine 1.14 (0.5-1.4) mg/dL Estim Creat Clear Calc 52.4 Estimated GFR 49 POC Glucose 90 (60-115) mg/dL Random Glucose 155 H (60-115) mg/dL Calcium 9.4 D (8.4-10.2) mg/dL Total Bilirubin 0.2 (0.0-1.0) mg/dL Direct Bilirubin < 0.2 (0.0-0.5) mg/dL AST 12 (5-31) U/L ALT 20 (0-31) U/L Alkaline Phosphatase 84 (39-117) U/L Total Protein 7.7 (6.5-8.0) g/dL Albumin 4.8 (3.5-5.0) g/dL Lipase 20 (8-78) U/L Urine Color Yellow Urine Appearance Clear Urine pH 5.5 (5.0-9.0) Ur Specific [place] 1.020 (1.005-1.025) Urine Protein Negative (Neg-Trace) mg/dL Urine Glucose (UA) Negative (Negative) mg/dL Urine Ketones Trace (Negative) mg/dL Urine Blood Small (1+) H (Negative) Urine Nitrite Negative (Negative) Ur Leukocyte Esterase Small (1+) H (Negative) Urine RBC 3-5 H (0-2) /HPF Urine WBC 0-5 (0-5) /HPF Ur Squamous Epith Cells 3-5 (0-2) /HPF Urine Bacteria Trace (None Seen) Hyaline Casts 6-10 (0-2) /LPF Critical Care Time Critical Care Time Critical Care Time: Yes Total Critical Care Time: 35 Attestation: Yasmeen Stokes PA-C have personally for 35 minutes of critical care time not including lines and procedures; acute abdomen, hyperkalemia, need for CT scan, need for hospital admission, potential surgical consult Discharge Plan Discharge Clinical Impression: Abdominal pain, Acute hyperkalemia, Sigmoid volvulus Patient Disposition: Admitted As Inpatient Interventions: Admission Worksheet (ED) Last Done: 05/19/25 16:40
[2025-05-19] MEDS: Albuterol Sulfate (0.083%) 2.5 MG/3 ML VIAL.NEB INHALE (05:23)
[2025-05-19] MEDS: Calcium Gluconate/NaCl,Iso-Osm 2 GM/100 ML PLAST..BAG IV (05:41)
--- NOTE | 2025-05-19 07:43 | PC.NURSE ---
Assumed care of patient. Pt in 04/29 pain in abdomen, here to give pt pain medication. Pt denies SOB or CP. RR even and unlabored. A+Ox4, anxious, cooperative.
[2025-05-19] MEDS: iohexoL 350 MG/ML 100 ML INFUS..BTL IV (08:10)
--- NOTE | 2025-05-19 08:55 | HO.PM.IMCN ---
History of Present Illness Data of Consult Service Date: 05/19/25 Primary Care Provider: [facility] HPI 59-year-old woman presenting to the ER with complaints of abdominal pain x1 week, abdominal distention and poor appetite. She reports her last bowel movement was approximately 2-3 days ago. She reported she was unable to pass flatus and had some nausea but no vomiting. She denied fevers as well. She has a history of ileus and chronic constipation and had an NG-tube placed during her last hospitalization. Abdominal and pelvic CT today showing sigmoid volvulus with very large amount of stool in the proximal colon without evidence of small-bowel obstruction. At this time she has not had any episodes of vomiting, her vital signs have been stable, her labs other than her potassium of 5.8 are all otherwise within normal limits. Review of Systems Review of Systems: Denies any recent fever chills or decrease in appetite respiratory denies any shortness of breath coverage production cardiovascular Denied chest pain gastrointestinal Reported fullness, bloating, constipation genitourinary denies any dysuria frequency or hematuria musculoskeletal denies any joint pain or swelling neuropsych denies any weakness or seizures all other systems reviewed are negative [facility] Medical History Hepatic steatosis Anemia Diabetes Morbid obesity due to excess calories Anxiety Chronic mental illness COPD (chronic obstructive pulmonary disease) Hyperlipidemia Schizophrenia Asthma Family History Father Throat cancer Mother CVA (cerebral vascular accident) Brother Drug overdose Sister No problems noted. Sister No problems noted. Son No problems noted. Son No problems noted. 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: Other Household Members Other:: Inocencio Cabral, - foster parents Housing: House Are you a primary senior care specialist to a significant other at home: No Do you presently have visiting nurse or other home services: Yes (lives with caregiver sheet metal installer) Alcohol intake: never Comment: Pt refuse to have staff remain near her during BR use Patient Tobacco Use Status: Former Tobacco user Tobacco use type: Cigarette Cigarettes Per Day: 10 e-Cigarette/Vaping Use: Never Used Second Hand Smoke Exposure: Yes Advance Directives Date on File: 10/29/24 service: No Current occupational status: disabled Sexual orientation: Straight/Heterosexual Meds Allergies Allergy/AdvReac Type Severity Reaction Status Date / Time diazepam (From Valium) Allergy Severe Vomiting Verified 05/18/25 21:27 haloperidol (From Haldol) Allergy Unknown Unknown Verified 05/18/25 21:27 Penicillins Allergy Unknown Unknown Verified 05/18/25 21:27 risperidone (From Risperdal) Allergy Unknown Unknown Verified 05/18/25 21:27 aspirin (Aspirin) AdvReac Intermediate Vomiting Verified 05/18/25 21:27 trazodone (TRAZODONE) AdvReac Intermediate NAUSEA & Verified 05/18/25 21:27 VOMITING Home Medications ?Medication ?Instructions ?Recorded ?Confirmed ?Last Taken ?Type sennosides 8.6 mg tablet (senna) 17.2 mg PO BEDTIME PRN constipation 12/13/22 05/19/25 05/17/25 History albuterol sulfate 90 mcg/actuation 2 puff inhalation Q4-6H PRN 06/18/23 05/19/25 Unknown History aerosol inhaler (Ventolin HFA) Shortness Of Breath Or Wheezing sucralfate 1 gram tablet 1 g PO TID 06/18/23 05/19/25 05/18/25 History tramadol 50 mg tablet 50 mg PO Q12H PRN Severe Pain 06/18/23 05/19/25 Unknown History (Scale Score 7-10) divalproex 500 mg tablet,extended 1,000 mg PO BEDTIME 10/01/23 05/19/25 05/17/25 History release 24 hr clonazepam 0.5 mg tablet 0.5 mg PO DAILY 03/29/24 05/19/25 05/18/25 History lisinopril 10 mg tablet 10 mg PO DAILY 03/29/24 05/19/25 05/18/25 History atorvastatin 40 mg tablet 40 mg PO BEDTIME 06/18/24 05/19/25 05/17/25 History omeprazole 20 mg capsule,delayed 20 mg PO BID@0630,1630 06/18/24 05/19/25 05/18/25 History release clozapine 100 mg tablet 300 mg PO BEDTIME 06/19/24 05/19/25 05/17/25 History divalproex 250 mg tablet,extended 250 mg PO BEDTIME 06/19/24 05/19/25 05/17/25 History release 24 hr docusate sodium 100 mg capsule 100 mg PO BID PRN Constipation 06/19/24 05/19/25 Unknown History loratadine 10 mg tablet 10 mg PO DAILY 06/19/24 05/19/25 05/18/25 History lactulose 10 gram/15 mL oral 45 ml PO DAILY 07/21/24 05/19/25 05/18/25 History solution albuterol sulfate 2.5 mg/3 mL 2.5 mg inhalation Q6H PRN wheezing 04/24/25 05/19/25 Unknown History (0.083 %) solution for nebulization diltiazem HCl 120 mg 120 mg PO DAILY 04/24/25 05/19/25 05/18/25 History capsule,extended release 12 hr ferrous sulfate 325 mg (65 mg 325 mg PO Q2D 04/24/25 05/19/25 05/17/25 History iron) tablet,delayed release fluoxetine 10 mg capsule 30 mg PO DAILY 04/24/25 05/19/25 05/18/25 History metformin 500 mg tablet,extended 500 mg PO BIDWM 04/24/25 05/19/25 05/18/25 History release 24 hr polyethylene glycol 3350 17 17 g PO TID PRN Constipation 04/24/25 05/19/25 Unknown History gram/dose oral powder (Miralax) Physical Exam Vital Signs and Narrative: Vital Signs: Last Vital Signs Temp 97.4 F 05/19/25 07:42 Pulse 92 05/19/25 07:42 Resp 18 05/19/25 07:42 BP 128/44 L 05/19/25 07:42 Pulse Ox 93 05/19/25 07:42 O2 Del Method Room Air 05/19/25 07:42 BMI result Body Mass Index 35.2 Appearing in no acute distress head is normocephalic atraumatic eyes pupils are PERRLA sclera is anicteric mouth throat mucous membranes are intact and moist neck is supple no lymphadenopathy, no JVD noted lung sounds are clear to auscultation heart regular rate rhythm, clear S1, S2 distended abdomen neuro patient is alert x3, no focal deficits Results Labs 05/30/25 08:15 06/01/25 06:17 Labs: Laboratory Results - last 24 hr 05/18/25 05/18/25 21:40 23:07 MCV 72.2 L MCH 21.7 L MCHC 30.0 L RDW 20.9 H Plt Count 495 H D MPV 10.5 Immature Gran % (Auto) 0.6 H Neut % (Auto) 64.2 Lymph % (Auto) 23.9 [place] % (Auto) 10.2 Eos % (Auto) 0.9 Baso % (Auto) 0.2 Lymph # (Auto) 2.4 [place] # (Auto) 1.0 Eos # (Auto) 0.1 Baso # (Auto) 0.0 Abs Immat Gran (auto) 0.06 H Absolute Neuts (auto) 6.5 Absolute Nucleated RBC 0.000 Nucleated RBC % (auto) 0.0 Anion Gap 18 Estim Creat Clear Calc 52.4 Estimated GFR 49 Random Glucose 155 H Calcium 9.4 D Total Bilirubin 0.2 Direct Bilirubin < 0.2 AST 12 ALT 20 Alkaline Phosphatase 84 Total Protein 7.7 Albumin 4.8 Lipase 20 Urine Color Yellow Urine Appearance Clear Urine pH 5.5 Ur Specific [place] 1.020 Urine Protein Negative Urine Glucose (UA) Negative Urine Ketones Trace Urine Blood Small (1+) H Urine Nitrite Negative Ur Leukocyte Esterase Small (1+) H Urine RBC 3-5 H Urine WBC 0-5 Ur Squamous Epith Cells 3-5 Urine Bacteria Trace Hyaline Casts 6-10 Imaging Radiologist's Impressions: Impressions Abdomen/Pelvis CT 05/19/25 07:56 IMPRESSION: Sigmoid volvulus with a very large amount of stool in the proximal colon. No evidence of small bowel obstruction. Findings were discussed with Dr. Patten in the emergency room on 05/19/2025 at 8:30 AM. Electronically signed by: Hardy Leon MD 05/19/2025 08:32 AM EDT Assessment and Plan (1) Schizophrenia: Status: Acute (2) Hypertension: Status: Acute Plan 59-year-old woman admitted by general surgery with volvulus, constipation for 2-3 days and inability to pass flatus Volvulus Management as per surgical Hypokalemia Received Lokelma and calcium gluconate in the ED Recheck this afternoon [id number] diabetes mellitus type 2 Sliding scale, NPO for now Schizophrenia Can continue home medications if able to take p.o. Hypertension Stable blood pressure Hold antihypertensives for now to avoid hypotension Asthma No exacerbation Albuterol as needed DVT prophylaxis with pneumatic compression boots Full code
--- NOTE | 2025-05-19 10:09 | MHC.EDTECH ---
patient continues to wear her pants. patient states its too cold to take them off.
[2025-05-19 10:20] LABS: Glucose, Whole Blood 90 mg/dL (60-115)
--- NOTE | 2025-05-19 11:56 | PM.HPGS ---
History of Present Illness History of Present Illness Date of Service: 05/19/25 Chief complaint: abdominal distension Narrative: Brenna Bourne is a 59 year old female who comes in with worsening abdominal distension and pain. She has had issues with constipation in past - in 03/2024 Dr Mendez did CScope with dx - tortuous colon no masses. She recently was admitted about 3 weeks ago with abdominal distension and constipation but improved with conservative care. No need for any surgical intervention. Pt has not had now a bowel movement for 3 days , feels bloated not vomiting. She has some pain too but more pressure uncomfortable. Here work up shows sigmoid voluvlus - no obvious bowel ischemia etc. Labs ok. Pt lives with Iris caregiver for over 24 yrs and she helps make her decisions with her although ? if she is legal guardian. Pt is competent. Pt has some mental health issues but is competent. Says not wanting any surgery and worried about ostomy bag. No chest pain no shortness of breath. Review of Systems Review of Systems: Yes all other systems are reviewed and are negative PMFSH Past Medical History Medical History Hepatic steatosis Anemia Diabetes Morbid obesity due to excess calories Anxiety Chronic mental illness COPD (chronic obstructive pulmonary disease) Hyperlipidemia Schizophrenia Asthma Family History Family History Father Throat cancer Mother CVA (cerebral vascular accident) Brother Drug overdose Sister No problems noted. Sister No problems noted. Son No problems noted. Son No problems noted. Surgical History Surgical History Hx of colonoscopy History of tubal ligation H/O right knee surgery History of appendectomy 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 and Friend(s) Household Members Other:: Lanny Soto, Inocencio Soto, - foster parents Housing: House Do you presently have visiting nurse or other home services: Yes Alcohol intake: never Comment: pt moves well s sba Patient Tobacco Use Status: Former Tobacco user Tobacco use type: Cigarette Cigarettes Per Day: 10 Smoked in Last 30 Days: No e-Cigarette/Vaping Use: Never Used Second Hand Smoke Exposure: Yes Use of substances other than those prescribed or required for medical reasons: No Advance Directives: Yes Advance Directives on File: Yes Advance Directives Date on File: 10/29/24 Do you have a plan to hurt others: No Plan Patient : No service: No Current occupational status: disabled Sexual orientation: Straight/Heterosexual Meds Allergies Allergy/AdvReac Type Severity Reaction Status Date / Time diazepam (From Valium) Allergy Severe Vomiting Verified 05/18/25 21:27 haloperidol (From Haldol) Allergy Unknown Unknown Verified 05/18/25 21:27 Penicillins Allergy Unknown Unknown Verified 05/18/25 21:27 risperidone (From Risperdal) Allergy Unknown Unknown Verified 05/18/25 21:27 aspirin (Aspirin) AdvReac Intermediate Vomiting Verified 05/18/25 21:27 trazodone (TRAZODONE) AdvReac Intermediate NAUSEA & Verified 05/18/25 21:27 VOMITING Active Medications: Current Medications Acetaminophen (Acetaminophen 325 Mg Tablet) 650 mg PO Q6H PRN PRN Reason: Pain, Mild 1-3,fever,headache Calcium Carbonate (Calcium Carbonate 750 Mg Tab.Chew) 750 mg PO Q4H PRN PRN Reason: Heartburn Enoxaparin Sodium (Enoxaparin Sodium 40 Mg/0.4 Ml Syringe) 40 mg SUBCUT Q24H [facility] Last Admin: 05/19/25 11:50 Dose: 40 mg Sodium Chloride (Ns) 1,000 mls @ 100 mls/hr IVCONT .Q10H [facility] Last Admin: 05/19/25 11:50 Dose: 100 mls/hr Magnesium Hydroxide (Milk Of Magnesia 30 Ml Oral.Susp) 30 ml PO DAILY PRN PRN Reason: Constipation Melatonin (Melatonin 3 Mg Tablet) 6 mg PO BEDTIME PRN PRN Reason: Insomnia Sodium Chloride (0.9 % Sodium Chloride Flush 3 Ml Syringe) 3 ml IVFLUSH QSHIFT [facility] Home Medications ?Medication ?Instructions ?Recorded ?Confirmed ?Last Taken ?Type sennosides 8.6 mg tablet (senna) 17.2 mg PO BEDTIME PRN constipation 12/13/22 04/24/25 12/12/22 History albuterol sulfate 90 mcg/actuation 2 puff inhalation Q4-6H PRN 06/18/23 04/24/25 Unknown History aerosol inhaler (Ventolin HFA) Shortness Of Breath Or Wheezing sucralfate 1 gram tablet 1 g PO TID 06/18/23 04/24/25 04/23/25 History tramadol 50 mg tablet 50 mg PO Q12H PRN Severe Pain 06/18/23 04/24/25 Unknown History (Scale Score 7-10) divalproex 500 mg tablet,extended 1,000 mg PO BEDTIME 10/01/23 04/24/25 04/22/25 History release 24 hr clonazepam 0.5 mg tablet 0.5 mg PO DAILY 03/29/24 04/24/25 04/23/25 History lisinopril 10 mg tablet 10 mg PO DAILY 03/29/24 04/24/25 04/23/25 History atorvastatin 40 mg tablet 40 mg PO BEDTIME 06/18/24 04/24/25 04/22/25 History omeprazole 20 mg capsule,delayed 20 mg PO BID@0630,1630 06/18/24 04/24/25 04/23/25 History release clozapine 100 mg tablet 300 mg PO BEDTIME 06/19/24 04/24/25 04/22/25 History divalproex 250 mg tablet,extended 250 mg PO BEDTIME 06/19/24 04/24/25 04/22/25 History release 24 hr docusate sodium 100 mg capsule 100 mg PO BID PRN Constipation 06/19/24 04/24/25 Unknown History loratadine 10 mg tablet 10 mg PO DAILY 06/19/24 04/24/25 04/23/25 History fluoxetine 20 mg capsule 20 mg PO DAILY 07/21/24 04/24/25 04/23/25 History lactulose 10 gram/15 mL oral 45 ml PO DAILY 07/21/24 04/24/25 04/23/25 History solution albuterol sulfate 2.5 mg/3 mL 2.5 mg inhalation Q6H PRN wheezing 04/24/25 04/24/25 Unknown History (0.083 %) solution for nebulization diltiazem HCl 120 mg 120 mg PO DAILY 04/24/25 04/24/25 04/23/25 History capsule,extended release 12 hr ferrous sulfate 325 mg (65 mg 325 mg PO Q2D 04/24/25 04/24/25 04/23/25 History iron) tablet,delayed release fluoxetine 10 mg capsule 10 mg PO DAILY 04/24/25 04/24/25 04/23/25 History metformin 500 mg tablet,extended 500 mg PO BIDWM 04/24/25 04/24/25 04/23/25 History release 24 hr polyethylene glycol 3350 17 17 g PO TID PRN Constipation 04/24/25 04/24/25 Unknown History gram/dose oral powder (Miralax) sulfamethoxazole 800 1 tab PO BID 05/19/25 Unknown History mg-trimethoprim 160 mg tablet Physical Exam Vital Signs: Vital Signs: Last Vital Signs Temp 97.4 F 05/19/25 07:42 Pulse 95 05/19/25 10:20 Resp 16 05/19/25 10:20 BP 115/53 L 05/19/25 10:20 Pulse Ox 95 05/19/25 10:20 O2 Del Method Room Air 05/19/25 10:20 BMI result Body Mass Index 35.2 Const: General: cooperative, healthy appearing and acute distress mild HEENT: Head: Yes normal to inspection Resp: Effort & Inspection: normal respiratory effort Auscultation: clear to auscultation bilaterally Cardio: Rate: regular rate Rhythm: regular rhythm GI: Other: abdomen very distended, mild tenderness especially lower right and left side. little firm hypo bowel sounds Skin: Other: nonicteric Results Results Labs: Short CBC 05/18/25 Range/Units 21:40 WBC 10.1 (4.8-10.8) X10*3/uL Hgb 8.2 L (12.0-16.0) g/dl Hct 27.3 L (37.0-47.0) % Plt Count 495 H D (160-400) X10*3/uL BMP 05/18/25 21:40 Sodium 133 L Potassium 5.8 H D Chloride 97 Carbon Dioxide 24 BUN 25 H Creatinine 1.14 Calcium 9.4 D Liver Function 05/18/25 Range/Units 21:40 Total Bilirubin 0.2 (0.0-1.0) mg/dL Direct Bilirubin < 0.2 (0.0-0.5) mg/dL AST 12 (5-31) U/L ALT 20 (0-31) U/L Alkaline Phosphatase 84 (39-117) U/L Albumin 4.8 (3.5-5.0) g/dL Urine 05/18/25 Range/Units 23:07 Urine Color Yellow Urine Appearance Clear Urine pH 5.5 (5.0-9.0) Ur Specific [place] 1.020 (1.005-1.025) Urine Protein Negative (Neg-Trace) mg/dL Urine Glucose (UA) Negative (Negative) mg/dL Abdomen CT scan report/results: report reviewed and image reviewed CT scan - pelvis: report reviewed and image reviewed Assessment and Plan (1) Sigmoid volvulus: Status: Acute Plan 59 year old female with schizophrnia, pre diabetic with acute sigmoid volvulus- pt has long redundant sigmoid and may have twist untwists. Stable now. Pt refusing surgery but may benefit from sigmoid colectomy to prevent recurrence. As stable consider GI endoscopy detorse and then bowel prep and resection and anastomosis. Will discuss with Dr Mendez who has seen pt in past. Quality Stroke Does the patient have a stroke diagnosis?: No VTE Prior VTE?: No VTE Risk Level:: Surgical - low VTE Device Contraindication: N/A - Device Ordered VTE Drug Contraindication: N/A - Med Ordered Procedures Date of Service Date of Service: 05/19/25
--- NOTE | 2025-05-19 12:34 | HO.ANESPROP2 ---
HPI - Anesthesia Eval Consult details Narrative: 59 yr old female with sigmoidoscopy volvulus No CP/SOB or heart palpitations Anemia: chronic, Hgb 8.2 Hyperkalemia: K+ 5.8 05/18/25, treated with lokelma, repeat K+ ordered H/O Sinus tachycardia: [place] [facility] [place] last visit 03/[place]25, EKG showed sinus tachycardia with rate 108 PMFSH Active Problems Active Problems: All Active Problems Sigmoid volvulus (Acute) Acute hyperkalemia (Acute) Abdominal pain (Acute) Sinus tachycardia (Acute) Acute hypoxic respiratory failure (Acute) Asthma exacerbation (Acute) Anemia (Acute) Tachycardia (Acute) COVID-19 virus infection (Acute) Pre-diabetes (Acute) History of arthroplasty of right knee (Acute) Tricompartment osteoarthritis of left knee (Acute) Schizophrenia (Acute) Pneumonia due to COVID-19 virus (Acute) Hypoxia (Acute) Dehydration (Acute) Pneumonia due to COVID-19 virus (Acute) Hyperkalemia (Acute) Hyponatremia (Acute) CAP (community acquired pneumonia) (Acute) Arthritis (Acute) Hypertension (Acute) Breast mass, right (Acute) Acute exacerbation of chronic obstructive airways disease (Acute) Community acquired pneumonia (Acute) Past Medical History Medical History Hepatic steatosis Anemia Diabetes Morbid obesity due to excess calories Anxiety Chronic mental illness COPD (chronic obstructive pulmonary disease) Hyperlipidemia Schizophrenia Asthma Family History Family History Father Throat cancer Mother CVA (cerebral vascular accident) Brother Drug overdose Sister No problems noted. Sister No problems noted. Son No problems noted. Son No problems noted. Family history of problems with anesthesia: No Surgical History Surgical History Hx of colonoscopy History of tubal ligation H/O right knee surgery History of appendectomy History of Problems with Anesthesia: No Social History 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: Other Household Members Other:: Lanny Soto, Inocencio Soto, - foster parents Housing: House Are you a primary director day care center to a significant other at home: No Do you presently have visiting nurse or other home services: Yes (lives with caregiver care center manager) Alcohol intake: never Comment: Pt refuse to have staff remain near her during BR use Patient Tobacco Use Status: Former Tobacco user Tobacco use type: Cigarette Cigarettes Per Day: 10 e-Cigarette/Vaping Use: Never Used Second Hand Smoke Exposure: Yes Advance Directives Date on File: 10/29/24 service: No Current occupational status: disabled Sexual orientation: Straight/Heterosexual Meds Allergies Allergy/AdvReac Type Severity Reaction Status Date / Time diazepam (From Valium) Allergy Severe Vomiting Verified 05/18/25 21:27 haloperidol (From Haldol) Allergy Unknown Unknown Verified 05/18/25 21:27 Penicillins Allergy Unknown Unknown Verified 05/18/25 21:27 risperidone (From Risperdal) Allergy Unknown Unknown Verified 05/18/25 21:27 aspirin (Aspirin) AdvReac Intermediate Vomiting Verified 05/18/25 21:27 trazodone (TRAZODONE) AdvReac Intermediate NAUSEA & Verified 05/18/25 21:27 VOMITING Active Medications: Current Medications Acetaminophen (Acetaminophen 325 Mg Tablet) 650 mg PO Q6H PRN PRN Reason: Pain, Mild 1-3,fever,headache Calcium Carbonate (Calcium Carbonate 750 Mg Tab.Chew) 750 mg PO Q4H PRN PRN Reason: Heartburn Enoxaparin Sodium (Enoxaparin Sodium 40 Mg/0.4 Ml Syringe) 40 mg SUBCUT Q24H [facility] Last Admin: 05/19/25 11:50 Dose: 40 mg Hydromorphone HCl (Hydromorphone Hcl 1 Mg/Ml Syringe) 1 mg IVPUSH Q4H PRN; Protocol PRN Reason: Pain, Severe (Pain Scale 7-10) Last Admin: 05/19/25 12:19 Dose: 1 mg Sodium Chloride (Ns) 1,000 mls @ 100 mls/hr IVCONT .Q10H [facility] Last Admin: 05/19/25 11:50 Dose: 100 mls/hr Magnesium Hydroxide (Milk Of Magnesia 30 Ml Oral.Susp) 30 ml PO DAILY PRN PRN Reason: Constipation Melatonin (Melatonin 3 Mg Tablet) 6 mg PO BEDTIME PRN PRN Reason: Insomnia Ondansetron HCl (Ondansetron Hcl 4 Mg/2 Ml Vial) 4 mg IVPUSH Q6H PRN PRN Reason: Nausea and Vomiting Sodium Chloride (0.9 % Sodium Chloride Flush 3 Ml Syringe) [facility] Medications ?Medication ?Instructions ?Recorded ?Confirmed ?Last Taken ?Type sennosides 8.6 mg tablet (senna) 17.2 mg PO BEDTIME PRN constipation 12/13/22 05/19/25 05/17/25 History albuterol sulfate 90 mcg/actuation 2 puff inhalation Q4-6H PRN 06/18/23 05/19/25 Unknown History aerosol inhaler (Ventolin HFA) Shortness Of Breath Or Wheezing sucralfate 1 gram tablet 1 g PO TID 06/18/23 05/19/25 05/18/25 History tramadol 50 mg tablet 50 mg PO Q12H PRN Severe Pain 06/18/23 05/19/25 Unknown History (Scale Score 7-10) divalproex 500 mg tablet,extended 1,000 mg PO BEDTIME 10/01/23 05/19/25 05/17/25 History release 24 hr clonazepam 0.5 mg tablet 0.5 mg PO DAILY 03/29/24 05/19/25 05/18/25 History lisinopril 10 mg tablet 10 mg PO DAILY 03/29/24 05/19/25 05/18/25 History atorvastatin 40 mg tablet 40 mg PO BEDTIME 06/18/24 05/19/25 05/17/25 History omeprazole 20 mg capsule,delayed 20 mg PO BID@0630,1630 06/18/24 05/19/25 05/18/25 History release clozapine 100 mg tablet 300 mg PO BEDTIME 06/19/24 05/19/25 05/17/25 History divalproex 250 mg tablet,extended 250 mg PO BEDTIME 06/19/24 05/19/25 05/17/25 History release 24 hr docusate sodium 100 mg capsule 100 mg PO BID PRN Constipation 06/19/24 05/19/25 Unknown History loratadine 10 mg tablet 10 mg PO DAILY 06/19/24 05/19/25 05/18/25 History lactulose 10 gram/15 mL oral 45 ml PO DAILY 07/21/24 05/19/25 05/18/25 History solution albuterol sulfate 2.5 mg/3 mL 2.5 mg inhalation Q6H PRN wheezing 04/24/25 05/19/25 Unknown History (0.083 %) solution for nebulization diltiazem HCl 120 mg 120 mg PO DAILY 04/24/25 05/19/25 05/18/25 History capsule,extended release 12 hr ferrous sulfate 325 mg (65 mg 325 mg PO Q2D 04/24/25 05/19/25 05/17/25 History iron) tablet,delayed release fluoxetine 10 mg capsule 30 mg PO DAILY 04/24/25 05/19/25 05/18/25 History metformin 500 mg tablet,extended 500 mg PO BIDWM 04/24/25 05/19/25 05/18/25 History release 24 hr polyethylene glycol 3350 17 17 g PO TID PRN Constipation 04/24/25 05/19/25 Unknown History gram/dose oral powder (Miralax) Exam Height,Weight and Vital Signs: Height 5 ft 1 in Weight 84.5 kg Last Vital Signs Temp 97.4 F 05/19/25 07:42 Pulse 95 05/19/25 10:20 Resp 16 05/19/25 10:20 BP 115/53 L 05/19/25 10:20 Pulse Ox 95 05/19/25 10:20 O2 Del Method Room Air 05/19/25 10:20 Pertinent Lab Results Pertinent Lab Results: Laboratory Tests 05/18/25 05/18/25 05/19/25 21:40 23:07 10:16 WBC 10.1 RBC 3.78 L Hgb 8.2 L Hct 27.3 L MCV 72.2 L MCH 21.7 L MCHC 30.0 L RDW 20.9 H Plt Count 495 H D MPV 10.5 Immature Gran % (Auto) 0.6 H Neut % (Auto) 64.2 Lymph % (Auto) 23.9 [place] % (Auto) 10.2 Eos % (Auto) 0.9 Baso % (Auto) 0.2 Lymph # (Auto) 2.4 [place] # (Auto) 1.0 Eos # (Auto) 0.1 Baso # (Auto) 0.0 Abs Immat Gran (auto) 0.06 H Absolute Neuts (auto) 6.5 Absolute Nucleated RBC 0.000 Nucleated RBC % (auto) 0.0 Sodium 133 L Potassium 5.8 H D Chloride 97 Carbon Dioxide 24 Anion Gap 18 BUN 25 H Creatinine 1.14 Estim Creat Clear Calc 52.4 Estimated GFR 49 POC Glucose 90 Random Glucose 155 H Calcium 9.4 D Total Bilirubin 0.2 Direct Bilirubin < 0.2 AST 12 ALT 20 Alkaline Phosphatase 84 Total Protein 7.7 Albumin 4.8 Lipase 20 Urine Color Yellow Urine Appearance Clear Urine pH 5.5 Ur Specific [place] 1.020 Urine Protein Negative Urine Glucose (UA) Negative Urine Ketones Trace Urine Blood Small (1+) H Urine Nitrite Negative Ur Leukocyte Esterase Small (1+) H Urine RBC 3-5 H Urine WBC 0-5 Ur Squamous Epith Cells 3-5 Urine Bacteria Trace Hyaline Casts 6-10 Assessment and Plan Final Anesthetic Review Family History of Problems with Anesthesia: No History of Problems with Anesthesia: No
--- NOTE | 2025-05-19 13:18 | PM.GICN ---
History of Present Illness Data of Consult Service Date: 05/19/25 Primary Care Provider: [facility] HPI Reason for consult: volvulus 59 year old female w/ hx of ischemic colitis, and schizophrenia, who I am seeing for volvulus. Patient admitted with worsening abdominal distention and constipation for 3 days with 9/10 diffuse crampy abdominal pain, radiating all over the abdomen. She had imaging which revealed a volvulus. she denies fever , nausea or vomiting. No chest pain no shortness of breath. She had colonoscopy 04/12 with tortuous colon, but no masses, or lesions seen. Review of Systems Review of Systems: Constitutional : No Weight loss, No Fever, No Chills ENT/Mouth : No sore throat, No Rhinorrhea Eyes: No Swelling, No Redness Cardiovascular : No Chest Pain, No SOB, No Edema Respiratory : No Cough, No Sputum, No Wheezing Gastrointestinal : see HPI Genitourinary : NO Dysuria, No Urinary Frequency, No Hematuria, No Urgency Musculoskeletal : no joint pain, No Myalgias, No Joint Swelling Skin : No Skin Lesions, No rash Neuro : No Weakness, No Numbness, No Dizziness, No Headache Psych : No Anxiety/Panic, No Depression Heme/Lymph: No Bruising, No Lymphadenopathy Endocrine : No Polyuria, No Polydipsia All other systems reviewed and are negative. [facility] Past Medical History Medical History Hepatic steatosis Anemia Diabetes Morbid obesity due to excess calories Anxiety Chronic mental illness COPD (chronic obstructive pulmonary disease) Hyperlipidemia Schizophrenia Asthma Family History Family History Father Throat cancer Mother CVA (cerebral vascular accident) Brother Drug overdose Sister No problems noted. Sister No problems noted. Son No problems noted. Son No problems noted. Surgical History Surgical History Hx of colonoscopy History of tubal ligation H/O right knee surgery History of appendectomy 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 and Friend(s) Household Members Other:: Lanny Soto, Inocencio Charles, - foster parents Housing: House Are you a primary adult daycare coordinator to a significant other at home: No Do you presently have visiting nurse or other home services: No Alcohol intake: never Comment: pt moves well s sba Patient Tobacco Use Status: Former Tobacco user Tobacco use type: Cigarette Cigarettes Per Day: 10 e-Cigarette/Vaping Use: Never Used Second Hand Smoke Exposure: Yes Advance Directives Date on File: 10/29/24 service: No Current occupational status: disabled Sexual orientation: Straight/Heterosexual Meds Allergies Allergy/AdvReac Type Severity Reaction Status Date / Time diazepam (From Valium) Allergy Severe Vomiting Verified 05/18/25 21:27 haloperidol (From Haldol) Allergy Unknown Unknown Verified 05/18/25 21:27 Penicillins Allergy Unknown Unknown Verified 05/18/25 21:27 risperidone (From Risperdal) Allergy Unknown Unknown Verified 05/18/25 21:27 aspirin (Aspirin) AdvReac Intermediate Vomiting Verified 05/18/25 21:27 trazodone (TRAZODONE) AdvReac Intermediate NAUSEA & Verified 05/18/25 21:27 VOMITING Active Medications: Current Medications Acetaminophen (Acetaminophen 325 Mg Tablet) 650 mg PO Q6H PRN PRN Reason: Pain, Mild 1-3,fever,headache Calcium Carbonate (Calcium Carbonate 750 Mg Tab.Chew) 750 mg PO Q4H PRN PRN Reason: Heartburn Enoxaparin Sodium (Enoxaparin Sodium 40 Mg/0.4 Ml Syringe) 40 mg SUBCUT Q24H [facility] Last Admin: 05/19/25 11:50 Dose: 40 mg Hydromorphone HCl (Hydromorphone Hcl 1 Mg/Ml Syringe) 1 mg IVPUSH Q4H PRN; Protocol PRN Reason: Pain, Severe (Pain Scale 7-10) Last Admin: 05/19/25 12:19 Dose: 1 mg Sodium Chloride (Ns) 1,000 mls @ 100 mls/hr IVCONT .Q10H [facility] Last Admin: 05/19/25 11:50 Dose: 100 mls/hr Magnesium Hydroxide (Milk Of Magnesia 30 Ml Oral.Susp) 30 ml PO DAILY PRN PRN Reason: Constipation Melatonin (Melatonin 3 Mg Tablet) 6 mg PO BEDTIME PRN PRN Reason: Insomnia Ondansetron HCl (Ondansetron Hcl 4 Mg/2 Ml Vial) 4 mg IVPUSH Q6H PRN PRN Reason: Nausea and Vomiting Sodium Chloride (0.9 % Sodium Chloride Flush 3 Ml Syringe) 3 ml IVFLUSH QSHIFT [facility] Home Medications ?Medication ?Instructions ?Recorded ?Confirmed ?Last Taken ?Type sennosides 8.6 mg tablet (senna) 17.2 mg PO BEDTIME PRN constipation 12/13/22 05/19/25 05/17/25 History albuterol sulfate 90 mcg/actuation 2 puff inhalation Q4-6H PRN 06/18/23 05/19/25 Unknown History aerosol inhaler (Ventolin HFA) Shortness Of Breath Or Wheezing sucralfate 1 gram tablet 1 g PO TID 06/18/23 05/19/25 05/18/25 History tramadol 50 mg tablet 50 mg PO Q12H PRN Severe Pain 06/18/23 05/19/25 Unknown History (Scale Score 7-10) divalproex 500 mg tablet,extended 1,000 mg PO BEDTIME 10/01/23 05/19/25 05/17/25 History release 24 hr clonazepam 0.5 mg tablet 0.5 mg PO DAILY 03/29/24 05/19/25 05/18/25 History lisinopril 10 mg tablet 10 mg PO DAILY 03/29/24 05/19/25 05/18/25 History atorvastatin 40 mg tablet 40 mg PO BEDTIME 06/18/24 05/19/25 05/17/25 History omeprazole 20 mg capsule,delayed 20 mg PO BID@0630,1630 06/18/24 05/19/25 05/18/25 History release clozapine 100 mg tablet 300 mg PO BEDTIME 06/19/24 05/19/25 05/17/25 History divalproex 250 mg tablet,extended 250 mg PO BEDTIME 06/19/24 05/19/25 05/17/25 History release 24 hr docusate sodium 100 mg capsule 100 mg PO BID PRN Constipation 06/19/24 05/19/25 Unknown History loratadine 10 mg tablet 10 mg PO DAILY 06/19/24 05/19/25 05/18/25 History fluoxetine 20 mg capsule 20 mg PO DAILY 07/21/24 05/19/25 05/18/25 History lactulose 10 gram/15 mL oral 45 ml PO DAILY 07/21/24 05/19/25 05/18/25 History solution albuterol sulfate 2.5 mg/3 mL 2.5 mg inhalation Q6H PRN wheezing 04/24/25 05/19/25 Unknown History (0.083 %) solution for nebulization diltiazem HCl 120 mg 120 mg PO DAILY 04/24/25 05/19/25 05/18/25 History capsule,extended release 12 hr ferrous sulfate 325 mg (65 mg 325 mg PO Q2D 04/24/25 05/19/25 05/17/25 History iron) tablet,delayed release fluoxetine 10 mg capsule 10 mg PO DAILY 04/24/25 05/19/25 05/18/25 History metformin 500 mg tablet,extended 500 mg PO BIDWM 04/24/25 05/19/25 05/18/25 History release 24 hr polyethylene glycol 3350 17 17 g PO TID PRN Constipation 04/24/25 05/19/25 Unknown History gram/dose oral powder (Miralax) Physical Exam Exam: Exam: EXAM: GENERAL: The patient is uncomfortable VITAL SIGNS:see workflow HEENT: Nonicteric sclerae, PERRLA, EOMI. Oropharynx clear. Moist mucous membranes. Conjunctivae appear well perfused. No thyroid mass. CHEST: Chest wall is nontender. HEART: Regular rate and rhythm without murmurs. LUNGS: Clear to auscultation bilaterally. ABDOMEN: distended ++, positive bowel sounds, mildly tender all over , no organomegaly.no flank tenderness SKIN: No rash, no excessive bruising, petechiae, or purpura. NEUROLOGIC: Cranial nerves II-XII intact without motor/sensory deficit. Psych: normal affect Vital Signs: Vital Signs: Last Vital Signs Temp 97.4 F 05/19/25 07:42 Pulse 95 05/19/25 10:20 Resp 16 05/19/25 10:20 BP 115/53 L 05/19/25 10:20 Pulse Ox 95 05/19/25 10:20 O2 Del Method Room Air 05/19/25 10:20 BMI result Body Mass Index 35.2 Results Labs 05/18/25 21:40 05/19/25 13:20 Labs: Short CBC 05/18/25 Range/Units 21:40 WBC 10.1 (4.8-10.8) X10*3/uL Hgb 8.2 L (12.0-16.0) g/dl Hct 27.3 L (37.0-47.0) % Plt Count 495 H D (160-400) X10*3/uL BMP 05/18/25 21:40 Sodium 133 L Potassium 5.8 H D Chloride 97 Carbon Dioxide 24 BUN 25 H Creatinine 1.14 Calcium 9.4 D Liver Function 05/18/25 Range/Units 21:40 Total Bilirubin 0.2 (0.0-1.0) mg/dL Direct Bilirubin < 0.2 (0.0-0.5) mg/dL AST 12 (5-31) U/L ALT 20 (0-31) U/L Alkaline Phosphatase 84 (39-117) U/L Albumin 4.8 (3.5-5.0) g/dL Urine 05/18/25 Range/Units 23:07 Urine Color Yellow Urine Appearance Clear Urine pH 5.5 (5.0-9.0) Ur Specific [place] 1.020 (1.005-1.025) Urine Protein Negative (Neg-Trace) mg/dL Urine Glucose (UA) Negative (Negative) mg/dL Imaging CT scan - abdomen: Attestation: I personally reviewed and interpreted this imaging study as follows: (volvulus noted with dilated loops of bowel ) Assessment and Plan (1) Volvulus of colon: Status: Acute Plan 1/ Volvulus 2/2 redundant colon, PLAN: 1/ Sigmoidoscopy today for de torsion Procedures Date of Service Date of Service: 05/19/25
[2025-05-19 13:36] LABS: Potassium 5.6 mmol/L (3.3-5.1)
--- NOTE | 2025-05-19 13:38 | PC.NURSE ---
Pt is at short stay for endoscopy
[2025-05-19 13:54] LABS: Glucose, Whole Blood 109 mg/dL (60-115)
[2025-05-19] MEDS: Lactated Ringers 1,000 ML 80 ML IVCONT (14:01)
--- NOTE | 2025-05-19 14:12 | PHA.MEDREC ---
Addendum entered by Jamia Jenkins RPh 05/19/25 14:59: MED REC REVIEWED BY [facility] Original Note: Pharmacy Consult ? Medication Reconciliation Pharmacy has completed the medication reconciliation. Spoke with pt, utilizing postal worker and she was able to confirm she was just discharged with us 04/29 and there were no changes in those medications. Pt confirmed she still takes Clozapine 100mg 3 (300mg) tabs @Bedtime and last took it 2 days ago, she takes Ferrous Sulfate Q48H and last took it 2 days ago and she finished the Sulfamethoxazole-Trimethoprim 2 days ago.
--- NOTE | 2025-05-19 14:21 | HO.ANESPROP2 ---
HPI - Anesthesia Eval Anesthesia Pre-Procedure Meds If yes to any meds - educate patient: Pt education - increased risk of aspiration and/or euvolemic DKA (increased risk of pulm complications due to recent pnuemonia) PMF Active Problems Active Problems: All Active Problems Volvulus of colon (Acute) Sigmoid volvulus (Acute) Acute hyperkalemia (Acute) Abdominal pain (Acute) Sinus tachycardia (Acute) Acute hypoxic respiratory failure (Acute) Asthma exacerbation (Acute) Anemia (Acute) Tachycardia (Acute) COVID-19 virus infection (Acute) Pre-diabetes (Acute) History of arthroplasty of right knee (Acute) Tricompartment osteoarthritis of left knee (Acute) Schizophrenia (Acute) Pneumonia due to COVID-19 virus (Acute) Hypoxia (Acute) Dehydration (Acute) Pneumonia due to COVID-19 virus (Acute) Hyperkalemia (Acute) Hyponatremia (Acute) CAP (community acquired pneumonia) (Acute) Arthritis (Acute) Hypertension (Acute) Breast mass, right (Acute) Acute exacerbation of chronic obstructive airways disease (Acute) Community acquired pneumonia (Acute) Past Medical History Medical History Hepatic steatosis Anemia Diabetes Morbid obesity due to excess calories Anxiety Chronic mental illness COPD (chronic obstructive pulmonary disease) Hyperlipidemia Schizophrenia Asthma Functional capacity: independent ambulation Patient : No Family History Family History Father Throat cancer Mother CVA (cerebral vascular accident) Brother Drug overdose Sister No problems noted. Sister No problems noted. Son No problems noted. Son No problems noted. Family history of problems with anesthesia: No Surgical History Surgical History Hx of colonoscopy History of tubal ligation H/O right knee surgery History of appendectomy History of Problems with Anesthesia: No 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 and Friend(s) Household Members Other:: Lanny Soto, Inocencio Soto, - foster parents Housing: House Are you a primary urgent care physician to a significant other at home: No Do you presently have visiting nurse or other home services: No Alcohol intake: never Comment: pt moves well s sba Patient Tobacco Use Status: Former Tobacco user Tobacco use type: Cigarette Cigarettes Per Day: 10 Smoked in Last 30 Days: No e-Cigarette/Vaping Use: Never Used Second Hand Smoke Exposure: Yes Use of substances other than those prescribed or required for medical reasons: No Have you been hit, kicked, punched, or otherwise hurt by someone within the past year? If so, by whom?: No Advance Directives: Yes Advance Directives on File: Yes Advance Directives Date on File: 10/29/24 Do you have a plan to hurt others: No Plan Patient : No Poor oral hygiene: Yes service: No Current occupational status: disabled Sexual orientation: Straight/Heterosexual Meds Allergies Allergy/AdvReac Type Severity Reaction Status Date / Time diazepam (From Valium) Allergy Severe Vomiting Verified 05/18/25 21:27 haloperidol (From Haldol) Allergy Unknown Unknown Verified 05/18/25 21:27 Penicillins Allergy Unknown Unknown Verified 05/18/25 21:27 risperidone (From Risperdal) Allergy Unknown Unknown Verified 05/18/25 21:27 aspirin (Aspirin) AdvReac Intermediate Vomiting Verified 05/18/25 21:27 trazodone (TRAZODONE) AdvReac Intermediate NAUSEA & Verified 05/18/25 21:27 VOMITING Active Medications: Current Medications Acetaminophen (Acetaminophen 325 Mg Tablet) 650 mg PO Q6H PRN PRN Reason: Pain, Mild 1-3,fever,headache Calcium Carbonate (Calcium Carbonate 750 Mg Tab.Chew) 750 mg PO Q4H PRN PRN Reason: Heartburn Enoxaparin Sodium (Enoxaparin Sodium 40 Mg/0.4 Ml Syringe) 40 mg SUBCUT Q24H [facility] Last Admin: 05/19/25 11:50 Dose: 40 mg Hydromorphone HCl (Hydromorphone Hcl 1 Mg/Ml Syringe) 1 mg IVPUSH Q4H PRN; Protocol PRN Reason: Pain, Severe (Pain Scale 7-10) Last Admin: 05/19/25 12:19 Dose: 1 mg Sodium Chloride (Ns) 1,000 mls @ 100 mls/hr IVCONT .Q10H [facility] Last Admin: 05/19/25 11:50 Dose: 100 mls/hr Lactated Ringer's (Lr) 1,000 mls @ 80 mls/hr IVCONT .[id number] [facility] Last Admin: 05/19/25 14:01 Dose: 80 mls/hr Magnesium Hydroxide (Milk Of Magnesia 30 Ml Oral.Susp) 30 ml PO DAILY PRN PRN Reason: Constipation Melatonin (Melatonin 3 Mg Tablet) 6 mg PO BEDTIME PRN PRN Reason: Insomnia Ondansetron HCl (Ondansetron Hcl 4 Mg/2 Ml Vial) 4 mg IVPUSH Q6H PRN PRN Reason: Nausea and Vomiting Sodium Chloride (0.9 % Sodium Chloride Flush 3 Ml Syringe) 3 ml IVFLUSH QSHIFT [facility] Home Medications ?Medication ?Instructions ?Recorded ?Confirmed ?Last Taken ?Type sennosides 8.6 mg tablet (senna) 17.2 mg PO BEDTIME PRN constipation 12/13/22 05/19/25 05/17/25 History albuterol sulfate 90 mcg/actuation 2 puff inhalation Q4-6H PRN 06/18/23 05/19/25 Unknown History aerosol inhaler (Ventolin HFA) Shortness Of Breath Or Wheezing sucralfate 1 gram tablet 1 g PO TID 06/18/23 05/19/25 05/18/25 History tramadol 50 mg tablet 50 mg PO Q12H PRN Severe Pain 06/18/23 05/19/25 Unknown History (Scale Score 7-10) divalproex 500 mg tablet,extended 1,000 mg PO BEDTIME 10/01/23 05/19/25 05/17/25 History release 24 hr clonazepam 0.5 mg tablet 0.5 mg PO DAILY 03/29/24 05/19/25 05/18/25 History lisinopril 10 mg tablet 10 mg PO DAILY 03/29/24 05/19/25 05/18/25 History atorvastatin 40 mg tablet 40 mg PO BEDTIME 06/18/24 05/19/25 05/17/25 History omeprazole 20 mg capsule,delayed 20 mg PO BID@0630,1630 06/18/24 05/19/25 05/18/25 History release clozapine 100 mg tablet 300 mg PO BEDTIME 06/19/24 05/19/25 05/17/25 History divalproex 250 mg tablet,extended 250 mg PO BEDTIME 06/19/24 05/19/2525 History release 24 hr docusate sodium 100 mg capsule 100 mg PO BID PRN Constipation 06/19/24 05/19/25 Unknown History loratadine 10 mg tablet 10 mg PO DAILY 06/19/24 05/19/25 05/18/25 History fluoxetine 20 mg capsule 20 mg PO DAILY 07/21/24 05/19/25 05/18/25 History lactulose 10 gram/15 mL oral 45 ml PO DAILY 07/21/24 05/19/25 05/18/25 History solution albuterol sulfate 2.5 mg/3 mL 2.5 mg inhalation Q6H PRN wheezing 04/24/25 05/19/25 Unknown History (0.083 %) solution for nebulization diltiazem HCl 120 mg 120 mg PO DAILY 04/24/25 05/19/25 05/18/25 History capsule,extended release 12 hr ferrous sulfate 325 mg (65 mg 325 mg PO Q2D 04/24/25 05/19/25 05/17/25 History iron) tablet,delayed release fluoxetine 10 mg capsule 10 mg PO DAILY 04/24/25 05/19/25 05/18/25 History metformin 500 mg tablet,extended 500 mg PO BIDWM 04/24/25 05/19/25 05/18/25 History release 24 hr polyethylene glycol 3350 17 17 g PO TID PRN Constipation 04/24/25 05/19/25 Unknown History gram/dose oral powder (Miralax) Exam Exam Date and Time: 05/19/25 Height,Weight and Vital Signs: Height 5 ft 1 in Weight 84.5 kg Last Vital Signs Temp 96.9 F 05/19/25 13:50 Pulse 98 05/19/25 13:50 Resp 12 05/19/25 13:50 BP 121/62 05/19/25 13:50 Pulse Ox 95 05/19/25 13:50 O2 Del Method Room Air 05/19/25 13:50 Pertinent Lab Results Pertinent Lab Results: Laboratory Tests 05/18/25 05/18/25 05/19/25 21:40 23:07 10:16 WBC 10.1 RBC 3.78 L Hgb 8.2 L Hct 27.3 L MCV 72.2 L MCH 21.7 L MCHC 30.0 L RDW 20.9 H Plt Count 495 H D MPV 10.5 Immature Gran % (Auto) 0.6 H Neut % (Auto) 64.2 Lymph % (Auto) 23.9 [place] % (Auto) 10.2 Eos % (Auto) 0.9 Baso % (Auto) 0.2 Lymph # (Auto) 2.4 [place] # (Auto) 1.0 Eos # (Auto) 0.1 Baso # (Auto) 0.0 Abs Immat Gran (auto) 0.06 H Absolute Neuts (auto) 6.5 Absolute Nucleated RBC 0.000 Nucleated RBC % (auto) 0.0 Sodium 133 L Potassium 5.8 H D Chloride 97 Carbon Dioxide 24 Anion Gap 18 BUN 25 H Creatinine 1.14 Estim Creat Clear Calc 52.4 Estimated GFR 49 POC Glucose 90 Random Glucose 155 H Calcium 9.4 D Total Bilirubin 0.2 Direct Bilirubin < 0.2 AST 12 ALT 20 Alkaline Phosphatase 84 Total Protein 7.7 Albumin 4.8 Lipase 20 Urine Color Yellow Urine Appearance Clear Urine pH 5.5 Ur Specific [place] 1.020 Urine Protein Negative Urine Glucose (UA) Negative Urine Ketones Trace Urine Blood Small (1+) H Urine Nitrite Negative Ur Leukocyte Esterase Small (1+) H Urine RBC 3-5 H Urine WBC 0-5 Ur Squamous Epith Cells 3-5 Urine Bacteria Trace Hyaline Casts 6-10 Blood Type Antibody Screen 05/19/25 05/19/25 13:20 13:50 WBC RBC Hgb Hct MCV MCH MCHC RDW Plt Count MPV Immature Gran % (Auto) Neut % (Auto) Lymph % (Auto) [place] % (Auto) Eos % (Auto) Baso % (Auto) Lymph # (Auto) [place] # (Auto) Eos # (Auto) Baso # (Auto) Abs Immat Gran (auto) Absolute Neuts (auto) Absolute Nucleated RBC Nucleated RBC % (auto) Sodium Potassium 5.6 H Chloride Carbon Dioxide Anion Gap BUN Creatinine Estim Creat Clear Calc Estimated GFR POC Glucose 109 Random Glucose Calcium Total Bilirubin Direct Bilirubin AST ALT Alkaline Phosphatase Total Protein Albumin Lipase Urine Color Urine Appearance Urine pH Ur Specific [place] Urine Protein Urine Glucose (UA) Urine Ketones Urine Blood Urine Nitrite Ur Leukocyte Esterase Urine RBC Urine WBC Ur Squamous Epith Cells Urine Bacteria Hyaline Casts Blood Type O Positive Antibody Screen NEGATIVE Narrative Narrative: recent transfusion and pneumonia per patient. patient is hyperkalemic but benefits outweigh risks for emergent procedure and we are prepared with Airway Mallampati Class: III TM Dist: >3cm Neck ROM: Full Heart: RRR Lungs: CTAB diminished Assessment and Plan Assessment Anesthesia Assessment: Anesthesia Plan Discussed and Chart Reviewed Final Anesthetic Review Family History of Problems with Anesthesia: No History of Problems with Anesthesia: No NPO: Yes ASA Class: III and Emergency Final Preanesthetic Review: Meds/Allgs Chart Reviewed, Consent Obtained/Reviewed and Anes Risks/Benef Reviewed Patient Risk: Intermediate Procedure Risk: Intermediate Anesthetic Plan Anesthetic Plan: GA Disposition: Standard PACU
--- NOTE | 2025-05-19 14:59 | W.PM.OPN ---
Operative Note Operative Note Date of Service: 05/19/25 Narrative: Procedure Description: sigmoidoscopy Indication: volvulus Anesthesia: MAC Sigmoidoscopy Instrument: pediatric colonoscope, olympus Colonoscopy Monitoring: Vital signs and clinical assessment, continuous EKG monitoring, Pulse oximetry, Carbon Dioxide monitoring and blood pressure monitoring were done throughout the procedure. Procedure: The patient was placed in the left lateral decubitis position and pre-procedure medications were administered. After a digital rectal examination of the ano-rectum, the video colonoscope was inserted into the rectum and advanced through the colon to the sigmoid colon The scope was slowly withdrawn in a retrograde panoramic fashion and the colon mucosa was carefully examined . Findings and interventions are described below. Procedure Difficulty: easy Findings: Transverse Colon- normal Sigmoid Colon: transition point for volvulus noted, scope was maneuverd past here and a gush of wind was heard Rectum: Normal , retroflexion not done Anorectum - normal Colon preparation: poor Impression and Post Procedure Diagnosis: volvulus Plan: f/u with surgery clears today miralax and colace as tolerated Above findings were reviewed with the patient and relevant handouts were provided if indicated.
[2025-05-20] VITALS (7 sets, daily range): BP systolic 106–130; BP diastolic 53–61; PULSE 105–119; RESP 16–18; TEMP 36.1–37.7; O2SAT 94–99
--- NOTE | 2025-05-20 | ECG_ITS ---
Test Reason : tachycardia Blood Pressure : */* mmHG Vent. Rate : 112 BPM Atrial Rate : 112 BPM P-R Int : 136 ms QRS Dur : 78 ms QT Int : 314 ms P-R-T Axes : 58 44 10 degrees QTcB Int : 428 ms Sinus tachycardia Nonspecific ST abnormality Borderline ECG When compared with ECG of 19-May-2025 12:57, No significant change was found Referred By: Olya Beckwith Electronically Signed By: CECELIA MCDONALD
[2025-05-20 04:56] LABS: Appearance Urine Clear; Glucose Urine UA Negative (Negative); PH 6.0 (5.0-9.0); Specific Gravity - Urine <= 1.005 (1.005-1.025); UMIC TRIGGER UACC YES
[2025-05-20 06:37] LABS: UACC Culture Trigger YES
[2025-05-20 07:34] LABS: Alanine Aminotransferase 19 U/L (0-31); Albumin Level 4.4 g/dL (3.5-5.0); Alkaline Phosphatase 92 U/L (39-117); Anion Gap 15 (12-20); Aspartate Amino Transferase 19 U/L (5-31); Blood Urea Nitrogen 13 mg/dL (9-16); Calcium 9.7 mg/dL (8.4-10.2); Carbon Dioxide 27 mmol/L (22-29); Chloride 98 mmol/L (96-108); Creatinine Clr Calc Pharmacy 109.2; Estimated Glomerular Filt Rate > 60; Potassium 5.5 mmol/L (3.3-5.1); Sodium 134 mmol/L (135-145); Total Protein 7.4 g/dL (6.5-8.0)
--- NOTE | 2025-05-20 07:59 | PM.PNGS ---
Subjective Subjective Date of Service: 05/20/25 <Jose Killian PA-C - Last Filed: 05/20/25 08:11> 05/20/25 <Juan Alberto Escobar MD - Last Filed: 05/20/25 08:13> Interval history: In house visitor services information assistant used for this evaluation. She reports she isdoing so so this morning. pain in the abdomen is a 3/10 now, some improvement from yesterday. Feels bloated. Denies nausea or vomiting currently. Has been passing gas. No bowel movements. Does not want to persue surgery <Jose Killian PA-C - Last Filed: 05/20/25 08:11> Physical Exam Vital Signs: Vital Signs: Last Vital Signs Temp 96.9 F 05/20/25 02:56 Pulse 106 H 05/20/25 02:56 Resp 16 05/20/25 02:56 BP 119/61 05/20/25 02:56 Pulse Ox 94 05/20/25 02:56 O2 Del Method Nasal Cannula 05/20/25 02:56 O2 Flow Rate 2 05/20/25 02:56 BMI result Body Mass Index 35.6 <Jose Killian PA-C - Last Filed: 05/20/25 08:11> Const: General: comfortable and no acute distress <ZECHARIAH Goldman Last Filed: 05/20/25 08:11> Orientation/consciousness: patient oriented x3 <Jose Killian PA-C - Last Filed: 05/20/25 08:11> GI: Other: NG tube in place, output 600 cc overnight, bilious <ZECHARIAH Goldman Last Filed: 05/20/25 08:11> Inspection: Yes distended (moderate) <Jose Killian PA-C - Last Filed: 05/20/25 08:11> Palpation (GI): Soft to palpation, Tenderness to palpation present (GI) (mildly tender lower abdomen) and no guarding <ZECHARIAH Goldman Last Filed: 05/20/25 08:11> Percussion: Yes tympanic to percussion <ZECHARIAH Goldman Last Filed: 05/20/25 08:11> Auscultation: normal bowel sounds (upper abdomen) and Hypoactive bowel sounds present (lower abdomen) <Jose Killian PA-C - Last Filed: 05/20/25 08:11> Neuro: General: patient oriented x3 <Jose Killian PA-C - Last Filed: 05/20/25 08:11> Objective Data Active Medications Acetaminophen (Acetaminophen 325 Mg Tablet) 650 mg PO Q6H PRN PRN Reason: Pain, Mild 1-3,fever,headache Calcium Carbonate (Calcium Carbonate 750 Mg Tab.Chew) 750 mg PO Q4H PRN PRN Reason: Heartburn Enoxaparin Sodium (Enoxaparin Sodium 40 Mg/0.4 Ml Syringe) 40 mg SUBCUT Q24H [facility] Last Admin: 05/19/25 11:50 Dose: 40 mg Documented By: MAVIS Hydromorphone HCl (Hydromorphone Hcl 1 Mg/Ml Syringe) 1 mg IVPUSH Q4H PRN; Protocol PRN Reason: Pain, Severe (Pain Scale 7-10) Last Admin: 05/20/25 03:52 Dose: 1 mg Documented By: YOU Sodium Chloride (Ns) 1,000 mls @ 100 mls/hr IVCONT .Q10H [facility] Last Admin: 05/19/25 22:42 Dose: 100 mls/hr Documented By: YOU Influenza Virus Vaccine (Flu Vacc Ac2157-99(6mo Up)/Pf 0.5 Ml Syringe) 0.5 ml IM .ONCE ONE Stop: 05/20/25 09:01 Magnesium Hydroxide (Milk Of Magnesia 30 Ml Oral.Susp) 30 ml PO DAILY PRN PRN Reason: Constipation Melatonin (Melatonin 3 Mg Tablet) 6 mg PO BEDTIME PRN PRN Reason: Insomnia Ondansetron HCl (Ondansetron Hcl 4 Mg/2 Ml Vial) 4 mg IVPUSH Q6H PRN PRN Reason: Nausea and Vomiting Sodium Chloride (0.9 % Sodium Chloride Flush 3 Ml Syringe) 3 ml IVFLUSH QSHIFT [facility] Last Admin: 05/20/25 07:39 Dose: Not Given Documented By: LAKSHMI Non-Admin Reason: IV Running <ZECHARIAH Goldman Last Filed: 05/20/25 08:11> Labs CBC & Chem 7: 05/18/25 21:40 05/20/25 05:54 <ZECHARIAH Goldman Last Filed: 05/20/25 08:11> Labs: Laboratory Results - last 24 hr 05/19/25 05/19/25 05/19/25 10:16 13:20 13:50 Hold Purple Top Anion Gap Estim Creat Clear Calc Estimated GFR POC Glucose 90 109 Random Glucose Calcium Total Bilirubin AST ALT Alkaline Phosphatase Total Protein Albumin Urine Color Urine Appearance Urine pH Ur Specific [place] Urine Protein Urine Glucose (UA) Urine Ketones Urine Blood Urine Nitrite Ur Leukocyte Esterase Urine RBC Urine WBC Ur Squamous Epith Cells Urine Bacteria Hyaline Casts Blood Type O Positive Antibody Screen NEGATIVE 05/20/25 05/20/25 04:40 05:54 Hold Purple Top SEE NOTE Anion Gap 15 Estim Creat Clear Calc 109.2 Estimated GFR > 60 POC Glucose Random Glucose 108 Calcium 9.7 Total Bilirubin 0.3 AST 19 ALT 19 Alkaline Phosphatase 92 Total Protein 7.4 Albumin 4.4 Urine Color Yellow Urine Appearance Clear Urine pH 6.0 Ur Specific [place] <= 1.005 Urine Protein Negative Urine Glucose (UA) Negative Urine Ketones Negative Urine Blood Moderate (2+) H Urine Nitrite Negative Ur Leukocyte Esterase Moderate (2+) H Urine RBC 0-2 Urine WBC 11-20 H Ur Squamous Epith Cells 0-2 Urine Bacteria 2+ Hyaline Casts 0-2 Blood Type Antibody Screen <Jose Killian PA-C - Last Filed: 05/20/25 08:11> Procedures Date of Service Date of Service: 05/20/25 <Jose Killian PA-C - Last Filed: 05/20/25 08:11> 05/20/25 <Juan Alberto Escobar MD - Last Filed: 05/20/25 08:13> Progress Note: A&P Assessment and plan (1) Sigmoid volvulus: Status: Acute <Jose Killian PA-C - Last Filed: 05/20/25 08:11> Assessment and Plan: Underwent flexible sigmoidoscopy with detorsion yesterday Currently denies abdominal pain Says she is passing flatus Abdomen is soft and benign, nontender NG-tube in place We will follow output today and plan for trial of clamp She does not want any surgical intervention I will reach out to the family and discuss the rest of her care Seen and examined independently <Juan Alberto Escobar MD - Last Filed: 05/20/25 08:13> Assessment and Plan: 59 year old female admitted for sigmoid volvulous s/p felx sig, with identification of the transition point, was able to pass this point and detorse the colon. Today patient feeling okay, pain improved from eysterday, now 10/27. Deneis nausea or vomiting. She is passing gas, has not passed BM. NG tube remains in place, 600 cc bilious fluid overnight. Will continue to monitor output and clamp when appropriate. abdomen is soft, distended. Bowel sounds were hypoactive in the lower abdomen but normoactive in the upper abdomen. She does not want to have surgical intervention if possible. Dr escobar will reach out to family to discuss care. NPO, while NG in place continue NG, clamp trial when output decreases ambulation as tolerated <Jose Killian PA-C - Last Filed: 05/20/25 08:11> Time Spent With Patient Time: Total time managing care of this patient today ____ minutes. <Jose Killian PA-C - Last Filed: 05/20/25 08:11> Quality Stroke Does the patient have a stroke diagnosis?: No <Jose Killian PA-C - Last Filed: 05/20/25 08:11> VTE Prior VTE?: No <Jose Killian PA-C - Last Filed: 05/20/25 08:11> VTE Risk Level:: Surgical - low <Jose Killian PA-C - Last Filed: 05/20/25 08:11> VTE Device Contraindication: N/A - Device Ordered <Jose Killian PA-C - Last Filed: 05/20/25 08:11> VTE Drug Contraindication: N/A - Med Ordered <Jose Killian PA-C - Last Filed: 05/20/25 08:11>
[2025-05-20] MEDS: Throat Lozenge, Medicated LOZENGE 1 LOZENGE MUCOUS MEM ×2 (10:22→17:24)
--- NOTE | 2025-05-20 10:55 | MHC.CM.PN ---
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 PT LIVES WITH HUNTING SALES ASSOCIATE/HCP/FRIEND JOSE ENRIQUE AND HER SPOUSE. PT HAS DAILY HUNTING SALES ASSOCIATE HOURS AND A CHD NURSE THAT COMES EVERY 2 WEEKS FOR MED BOX FILL. PT USES A CANE FOR MOBILITY. + HCP ON FILE AND VERIFIED. PCP DR. ANDREZ DOBBINS. DP: HOME WITH RESUMPTION OF HUNTING SALES ASSOCIATE/CHD NURSE SERVICES IS THE GOAL. PT'S HUNTING SALES ASSOCIATE WILL TRANSPORT HOME. CM WILL CONTINUE TO FOLLOW FOR ANY CHANGE TO DC PLAN/NEEDS.
--- NOTE | 2025-05-20 13:20 | HO.POSTANES ---
Post Anesthesia Evaluation Post Anesthesia Evaluation Date of Service: 05/20/25 Vital Signs: Vital Signs Temp Pulse Resp BP Pulse Ox O2 Del Method O2 Flow Rate 05/20/25 12:00 99.9 F 119 H 16 106/57 L 99 Room Air 05/20/25 08:00 97.1 F 118 H 18 130/59 L 96 Room Air 05/20/25 02:56 96.9 F 106 H 16 119/61 94 Nasal Cannula 2 Anesthesia: Monitored Mental Status: Sedated (sleeping, nurse stated pt has been sleepy, but no issues reported) Pain Control: Satisfactory Nausea/Vomiting: None Hydration: Adequate Anesthesia-Related Issues: No Anes. Related Issues
--- NOTE | 2025-05-20 15:51 | PM.EVENT ---
Event Note Date of Service: 05/20/25 Event Note: Patient with tachycardia, urine culture showing Gram-negative tahir. Blood culture, lactic acid ordered. Check EKG for tachycardia. Started IV Rocephin for GNR UTI. Follow up on final cultures. Time Spent With Patient Time: Total time managing care of this patient today ____ minutes.
--- NOTE | 2025-05-20 16:31 | PM.EVENT ---
Event Note Date of Service: 05/20/25 Event Note: seen on afternoon rounds denies abdl pain had BMs abd soft and benign looks comfortable HR elevated - hospitalist following exam remains very benign she says she does not want any surgical intervention currently next of kin Iris updated plan to dc NGT tomorrow Time Spent With Patient Time: Total time managing care of this patient today ____ minutes.
[2025-05-20 20:20] LABS: Glucose, Whole Blood 98 mg/dL (60-115)
[2025-05-21] VITALS (7 sets, daily range): BP systolic 114–136; BP diastolic 55–63; PULSE 94–110; RESP 14–18; TEMP 36.2–37.4; O2SAT 92–98
--- NOTE | 2025-05-21 07:29 | PM.PNGS ---
Subjective Subjective Date of Service: 05/21/25 <Jose Killian PA-C - Last Filed: 05/21/25 07:34> 05/21/25 <Juan Alberto Escobar MD - Last Filed: 05/21/25 08:05> Interval history: patient doing a bit better today, pain improved slightly. some discomfort in the nose and throat due to NG. She is passing gas, passed two bowel movements. NG tube output 400 cc overnight. <Jose Killian PA-C - Last Filed: 05/21/25 07:34> Physical Exam Vital Signs: Vital Signs: Last Vital Signs Temp 97.5 F 05/21/25 03:08 Pulse 103 H 05/21/25 03:08 Resp 18 05/21/25 03:08 BP 115/63 05/21/25 03:08 Pulse Ox 98 05/21/25 03:08 O2 Del Method Nasal Cannula 05/21/25 03:08 O2 Flow Rate 1 05/21/25 03:08 BMI result Body Mass Index 35.6 <Jose Killian PA-C - Last Filed: 05/21/25 07:34> Const: General: comfortable and no acute distress <Jose Killian PA-C - Last Filed: 05/21/25 07:34> Orientation/consciousness: patient oriented x3 <ZECHARIAH Goldman Last Filed: 05/21/25 07:34> Resp: Effort & Inspection: normal respiratory effort and able to speak in complete sentences <Jose Killian PA-C - Last Filed: 05/21/25 07:34> GI: Other: ng tube in place, 400cc overnight, bilious <Jose Killian PA-C - Last Filed: 05/21/25 07:34> Inspection: Yes distended <Jose Killian PA-C - Last Filed: 05/21/25 07:34> Palpation (GI): Soft to palpation, Tenderness to palpation present (GI) (mildly tender throughout) and no guarding <ZECHARIAH Goldman Last Filed: 05/21/25 07:34> Percussion: Yes tympanic to percussion <ZECHARIAH Goldman Last Filed: 05/21/25 07:34> Neuro: General: patient oriented x3 <ZECHARIAH Goldman Last Filed: 05/21/25 07:34> Objective Data Active Medications Benzocaine (Throat Lozenge, Medicated Lozenge) 1 lozenge MUCOUS MEM Q2H PRN PRN Reason: Sore Throat Last Admin: 05/20/25 17:24 Dose: 1 lozenge Documented By: LAKSHMI Calcium Carbonate (Calcium Carbonate 750 Mg Tab.Chew) 750 mg PO Q4H PRN PRN Reason: Heartburn Ceftriaxone Sodium (Ceftriaxone Sodium 1 Gm Vial) 1 gm IVPUSH Q24H [facility] Last Admin: 05/20/25 16:27 Dose: 1 gm Documented By: LAKSHMI Enoxaparin Sodium (Enoxaparin Sodium 40 Mg/0.4 Ml Syringe) 40 mg SUBCUT Q24H [facility] Last Admin: 05/20/25 12:49 Dose: 40 mg Documented By: LAKSHMI Hydromorphone HCl (Hydromorphone Hcl 1 Mg/Ml Syringe) 1 mg IVPUSH Q4H PRN; Protocol PRN Reason: Pain, Severe (Pain Scale 7-10) Last Admin: 05/21/25 02:30 Dose: 1 mg Documented By: ELIZABETH Sodium Chloride (Ns) 1,000 mls @ 100 mls/hr IVCONT .Q10H [facility] Last Admin: 05/21/25 03:53 Dose: Not Given Documented By: ELIZABETH Non-Admin Reason: IV Running Acetaminophen (Ofirmev) 1,000 mg in 100 mls @ 400 mls/hr IV Q6H [facility] Last Infusion: 05/21/25 04:10 Dose: Infused Documented By: ELIZABETH Magnesium Hydroxide (Milk Of Magnesia 30 Ml Oral.Susp) 30 ml PO DAILY PRN PRN Reason: Constipation Melatonin (Melatonin 3 Mg Tablet) 6 mg PO BEDTIME PRN PRN Reason: Insomnia Ondansetron HCl (Ondansetron Hcl 4 Mg/2 Ml Vial) 4 mg IVPUSH Q6H PRN PRN Reason: Nausea and Vomiting Last Admin: 05/21/25 04:21 Dose: 4 mg Documented By: ELIZABETH Sodium Chloride (0.9 % Sodium Chloride Flush 3 Ml Syringe) 3 ml IVFLUSH QSHIFT [facility] Last Admin: 05/21/25 06:56 Dose: Not Given Documented By: LAKSHMI Non-Admin Reason: IV Running <Jose Killian PA-C - Last Filed: 05/21/25 07:34> Labs CBC & Chem 7: 05/18/25 21:40 05/20/25 05:54 <Jose Killian PA-C - Last Filed: 05/21/25 07:34> Labs: Laboratory Results - last 24 hr 05/20/25 05/20/25 05/20/25 05:54 16:19 20:17 Anion Gap 15 Estim Creat Clear Calc 109.2 Estimated GFR > 60 POC Glucose 98 Random Glucose 108 Lactic Acid 0.7 Calcium 9.7 Total Bilirubin 0.3 AST 19 ALT 19 Alkaline Phosphatase 92 Total Protein 7.4 Albumin 4.4 <Jose Killian PA-C - Last Filed: 05/21/25 07:34> Microbiology Microbiology Results: Microbiology 05/18/25 Unknown Urine Culture - Preliminary Urine clean catch - Clean Catch Midstream Gram negative tahir <Jose Killian PA-C - Last Filed: 05/21/25 07:34> Procedures Date of Service Date of Service: 05/21/25 <Jose Killian PA-C - Last Filed: 05/21/25 07:34> 05/21/25 <Juan Alberto Escobar MD - Last Filed: 05/21/25 08:05> Progress Note: A&P Assessment and plan (1) Sigmoid volvulus: Status: Acute <Jose Killian PA-C - Last Filed: 05/21/25 07:34> Assessment and Plan: Feels well this morning Says she is passing flatus Has BMs NG tube output 400 Abdomen is soft and benign, nontender Looks well overall Plan to clamp NG tube and check output after hours Seen and examined independently <Juan Alberto Escobar MD - Last Filed: 05/21/25 08:05> Assessment and Plan: 59 year old female admitted for sigmoid volvulous s/p felx sig, with identification of the transition point, was able to pass this point and detorse the colon. Today patient feeling better, pain improved from yesterday. Admits to some mild nausea. She is passing gas, has passed 2 BM. NG tube remains in place, 400 cc bilious fluid overnight. Will trial clamping today, if output after 4 hours less than 100 cc can removed. abdomen is soft, distended, mildly tender throughout. She does not want to have surgical intervention if possible. Dr escobar will reach out to family to discuss care. NPO, while NG in place continue NG, clamp trial today ambulation as tolerated <Jose Killian PA-C - Last Filed: 05/21/25 07:34> Time Spent With Patient Time: Total time managing care of this patient today ____ minutes. <Jose Killian PA-C - Last Filed: 05/21/25 07:34> Quality Stroke Does the patient have a stroke diagnosis?: No <Jose Killian PA-C - Last Filed: 05/21/25 07:34> VTE Prior VTE?: No <Jose Killian PA-C - Last Filed: 05/21/25 07:34> VTE Risk Level:: Surgical - low <Jose Killian PA-C - Last Filed: 05/21/25 07:34> VTE Device Contraindication: N/A - Device Ordered <ZECHARIAH Goldman Last Filed: 05/21/25 07:34> VTE Drug Contraindication: N/A - Med Ordered <Jose Killian PA-C - Last Filed: 05/21/25 07:34>
--- NOTE | 2025-05-21 07:50 | PC.NURSE ---
Addendum entered by Shweta Bradley RN 05/21/25 12:25: pt reporting nausea, residual checked on NGT was 10mls at 1200, aware and instructed to connect back to low intermittent wall suction for now d/t nausea Original Note: 0745 NG tube clamped per Dr. Escobar, resume LIS if pt becomes nauseous, otherwise will be removed at noon
[2025-05-21] MEDS: Throat Lozenge, Medicated LOZENGE 1 LOZENGE MUCOUS MEM (12:18)
[2025-05-22] MEDS: Lactated Ringers 1,000 ML 80 ML IVCONT (01:38)
[2025-05-22 03:38] VITALS: BP 122/56; PULSE 100; RESP 18; TEMP 36.4; O2SAT 98
[2025-05-22 07:56] VITALS: BP 120/58; PULSE 99; RESP 18; TEMP 36.3; O2SAT 93
--- NOTE | 2025-05-22 07:58 | PM.PNGS ---
Subjective Subjective Date of Service: 05/22/25 <Jose Killian PA-C - Last Filed: 05/22/25 09:56> 05/22/25 <Juan Alberto Escobar MD - Last Filed: 05/22/25 15:41> Interval history: Doing okay today, denies pain. Still experiencing nausea, but states this is mild. She was happy to report that she passed 3 bowel movements yesterday, continues to pass gas. NG tube remains in place <Jose Killian PA-C - Last Filed: 05/22/25 09:56> Physical Exam Vital Signs: Vital Signs: Last Vital Signs Temp 97.3 F 05/22/25 07:56 Pulse 99 05/22/25 07:56 Resp 18 05/22/25 07:56 BP 120/58 L 05/22/25 07:56 Pulse Ox 93 05/22/25 07:56 O2 Del Method Room Air 05/22/25 07:56 O2 Flow Rate 1 05/21/25 03:08 BMI result Body Mass Index 35.6 <Jose Killian PA-C - Last Filed: 05/22/25 09:56> Const: General: comfortable and no acute distress <ZECHARIAH Goldman Last Filed: 05/22/25 09:56> Orientation/consciousness: patient oriented x3 <ZECHARIAH Goldman Last Filed: 05/22/25 09:56> Resp: Effort & Inspection: normal respiratory effort and able to speak in complete sentences <Jose Killian PA-C - Last Filed: 05/22/25 09:56> GI: Other: NG tube in place, output 900 overnight, bilious <Jose Killian PA-C - Last Filed: 05/22/25 09:56> Inspection: Yes distended <ZECHARIAH Goldman Last Filed: 05/22/25 09:56> Palpation (GI): Soft to palpation, nontender and no guarding <ZECHARIAH Goldman Last Filed: 05/22/25 09:56> Percussion: Yes tympanic to percussion <ZECHARIAH Goldman Last Filed: 05/22/25 09:56> Neuro: General: patient oriented x3 <ZECHARIAH Goldman Last Filed: 05/22/25 09:56> Objective Data Active Medications Benzocaine (Throat Lozenge, Medicated Lozenge) 1 lozenge MUCOUS MEM Q2H PRN PRN Reason: Sore Throat Last Admin: 05/21/25 12:18 Dose: 1 lozenge Documented By: LAKSHMI Calcium Carbonate (Calcium Carbonate 750 Mg Tab.Chew) 750 mg PO Q4H PRN PRN Reason: Heartburn Ceftriaxone Sodium (Ceftriaxone Sodium 1 Gm Vial) 1 gm IVPUSH Q24H [facility] Last Admin: 05/21/25 15:39 Dose: 1 gm Documented By: LAKSHMI Enoxaparin Sodium (Enoxaparin Sodium 40 Mg/0.4 Ml Syringe) 40 mg SUBCUT Q24H [facility] Last Admin: 05/21/25 12:18 Dose: 40 mg Documented By: LAKSHMI Hydromorphone HCl (Hydromorphone Hcl 1 Mg/Ml Syringe) 1 mg IVPUSH Q4H PRN; Protocol PRN Reason: Pain, Severe (Pain Scale 7-10) Last Admin: 05/22/25 05:43 Dose: 1 mg Documented By: ELIZABETH Acetaminophen (Ofirmev) 1,000 mg in 100 mls @ 400 mls/hr IV Q6H [facility] Last Infusion: 05/22/25 04:13 Dose: Infused Documented By: ELIZABETH Lactated Ringer's (Lr) 1,000 mls @ 80 mls/hr IVCONT .[id number] [facility] Stop: 05/22/25 13:29 Last Admin: 05/22/25 01:38 Dose: 80 mls/hr Documented By: ELIZABETH Magnesium Hydroxide (Milk Of Magnesia 30 Ml Oral.Susp) 30 ml PO DAILY PRN PRN Reason: Constipation Melatonin (Melatonin 3 Mg Tablet) 6 mg PO BEDTIME PRN PRN Reason: Insomnia Ondansetron HCl (Ondansetron Hcl 4 Mg/2 Ml Vial) 4 mg IVPUSH Q6H PRN PRN Reason: Nausea and Vomiting Last Admin: 05/21/25 12:17 Dose: 4 mg Documented By: LAKSHMI Sodium Chloride (0.9 % Sodium Chloride Flush 3 Ml Syringe) 3 ml IVFLUSH QSHIFT [facility] Last Admin: 05/22/25 07:17 Dose: Not Given Documented By: LAKSHMI Non-Admin Reason: IV Running <Jose Killian PA-C - Last Filed: 05/22/25 09:56> Labs CBC & Chem 7: 05/18/25 21:40 05/22/25 10:22 <Jose Killian PA-C - Last Filed: 05/22/25 09:56> Microbiology Microbiology Results: Microbiology 05/20/25 Unknown Urine Culture - Final Urine clean catch - Clean Catch Midstream Escherichia coli 05/20/25 16:19 Blood Culture - Preliminary Blood - Venous No growth after 24 hours. 05/20/25 16:19 Blood Culture - Preliminary Blood - Venous No growth after 24 hours. 05/18/25 Unknown Urine Culture - Final Urine clean catch - Clean Catch Midstream Escherichia coli <Jose Killian PA-C - Last Filed: 05/22/25 09:56> Procedures Date of Service Date of Service: 05/22/25 <Jose Killian PA-C - Last Filed: 05/22/25 09:56> 05/22/25 <Juan Alberto Escobar MD - Last Filed: 05/22/25 15:41> Progress Note: A&P Assessment and plan (1) Sigmoid volvulus: Status: Acute <Jose Killian PA-C - Last Filed: 05/22/25 09:56> Assessment and Plan: NG tube output remains high Patient denies abdominal pain Passing flatus Abdomen is soft and very benign We will see how NG tube output is today PICC line We will rediscuss goals of care with family and patient We will check electrolytes in view of high NG tube output Seen and examined independently <Juan Alberto Escobar MD - Last Filed: 05/22/25 15:41> Assessment and Plan: 59 year old female admitted for sigmoid volvulous s/p felx sig, with identification of the transition point, was able to pass this point and detorse the colon. She feels well. Admits to some mild nausea. She is passing gas, has passed multiple bowel movments. NG tube remains in place, We did a trial of clamping yesterday, output was low but she remained nauseous so the NG was left in place. 900 cc bilious fluid overnight. Will continue for now. abdomen is soft, distended, nontender throughout. She does not want to have surgical intervention if possible. Per nursing staff, patient and family hoping for more information about what surgery would entail and Dr escobar will speak with pt and family to discuss care. NPO, while NG in place, will order for nutrition consult and picc line for prolonged NPO ambulation as tolerated Patient refusing PICC line, wants NG tube out and to eat. Output remains high, NG will need to stay in for now, NPO while in place. <Jose Killian PA-C - Last Filed: 05/22/25 09:56> Time Spent With Patient Time: Total time managing care of this patient today ____ minutes. <Jose Killian PA-C - Last Filed: 05/22/25 09:56> Quality Stroke Does the patient have a stroke diagnosis?: No <Jose Killian PA-C - Last Filed: 05/22/25 09:56> VTE Prior VTE?: No <Jose Killian PA-C - Last Filed: 05/22/25 09:56> VTE Risk Level:: Surgical - low <Jose Killian PA-C - Last Filed: 05/22/25 09:56> VTE Device Contraindication: N/A - Device Ordered <Jose Killian PA-C - Last Filed: 05/22/25 09:56> VTE Drug Contraindication: N/A - Med Ordered <Jose Killian PA-C - Last Filed: 05/22/25 09:56>
--- NOTE | 2025-05-22 09:55 | PC.NURSE ---
Accuracy Expert present to explain to pt that she will need a PICC line placed today and the reason and plan of treatment, patient understanding and agreeable to have PICC line placed at that time. When transport arrived to bring pt to IR for placement of PICC, pt is now refusing to go and would not like to continue with plan. IR nurse and PATTIE Killian made aware.
--- NOTE | 2025-05-22 10:28 | MHC.CLN ---
CONSULT PATIENT WITH SIGMOID VOLVULUS. NPO WITH NGT FOR OUTPUT. NPO SINCE 05/19. RECOMMEND START PPN ON 05/25 IF CONTINUES UNABLE TO TOLERATE PO INTAKE. PATIENT DOES NOT WANT PICC. FOLLOW FOR DIET ADVANCEMENT, PO INTAKE AND PLAN OF CARE.
[2025-05-22 10:47] LABS: Anion Gap 11 (12-20); Blood Urea Nitrogen 11 mg/dL (9-16); Calcium 8.6 mg/dL (8.4-10.2); Carbon Dioxide 32 mmol/L (22-29); Chloride 100 mmol/L (96-108); Creatinine Clr Calc Pharmacy 120.1; Estimated Glomerular Filt Rate > 60; Potassium 3.7 mmol/L (3.3-5.1); Sodium 139 mmol/L (135-145)
[2025-05-22 12:00] VITALS: BP 146/66; PULSE 93; RESP 18; TEMP 36.2; O2SAT 94
[2025-05-22] MEDS: Lactated Ringers 1,000 ML 100 ML IVCONT (13:15)
--- NOTE | 2025-05-22 15:41 | PM.EVENT ---
Event Note Date of Service: 05/22/25 Event Note: Patient refused PICC line Abdomen remained soft and benign Having good amounts of stools today and flatus We will keep NG tube for now and see if we can do clamping trial tomorrow Next of kin Iris updated Time Spent With Patient Time: Total time managing care of this patient today ____ minutes.
[2025-05-22 16:00] VITALS: BP 131/63; PULSE 97; RESP 18; TEMP 36.4; O2SAT 97
[2025-05-22 19:39] VITALS: BP 119/56; PULSE 97; RESP 16; TEMP 36.4; O2SAT 94
[2025-05-22 23:41] VITALS: BP 152/68; PULSE 90; RESP 18; TEMP 36; O2SAT 96
[2025-05-23] MEDS: Lactated Ringers 1,000 ML 100 ML IVCONT ×3 (00:13→17:50)
[2025-05-23] MEDS: Throat Lozenge, Medicated LOZENGE 1 LOZENGE MUCOUS MEM (00:14)
[2025-05-23 03:50] VITALS: BP 144/60; PULSE 92; RESP 18; TEMP 36.3; O2SAT 94
[2025-05-23 07:36] VITALS: BP 149/65; PULSE 87; RESP 20; TEMP 36.3; O2SAT 94
--- NOTE | 2025-05-23 10:14 | MHC.CLN ---
CONSULT PATIENT WITH SIGMOID VOLVULUS NPO WITH NGT FOR OUTPUT REVIEWED LABS DISCUSSED WITH PHARMACY RECOMMEND START PPN AT 55ML/HR TO PROVIDE [id number], 132G DEXTROSE, 56G PROTEIN PATIENT REFUSED PICC LINE REPLETE LYTES NEEDED CHECK TRIGS FOR LIPIDS TOMORROW
[2025-05-23 11:03] LABS: Albumin Level 3.5 g/dL (3.5-5.0)
[2025-05-23 11:07] LABS: Triglycerides 150 mg/dL (<150)
[2025-05-23 11:10] LABS: Alanine Aminotransferase 8 U/L (0-31); Albumin Level 3.6 g/dL (3.5-5.0); Alkaline Phosphatase 79 U/L (39-117); Anion Gap 16 (12-20); Aspartate Amino Transferase 14 U/L (5-31); Blood Urea Nitrogen 14 mg/dL (9-16); Calcium 8.8 mg/dL (8.4-10.2); Carbon Dioxide 30 mmol/L (22-29); Chloride 98 mmol/L (96-108); Creatinine Clr Calc Pharmacy 117.8; Estimated Glomerular Filt Rate > 60; Magnesium 1.9 mg/dL (1.6-2.6); Potassium 3.5 mmol/L (3.3-5.1); Sodium 140 mmol/L (135-145); Total Protein 6.3 g/dL (6.5-8.0)
[2025-05-23 12:00] VITALS: BP 144/64; PULSE 91; RESP 20; TEMP 36.4; O2SAT 92
[2025-05-23 15:48] VITALS: BP 134/64; PULSE 84; RESP 18; TEMP 36.4; O2SAT 92
--- NOTE | 2025-05-23 17:55 | PC.NURSE ---
Pt resting intermittently throughout shift. Upon entering the room each time today, pt starts to get teary eyed. Medicated for pain and nausea per MAR. NGT to left nare drained 450ml dark red/brown liquid. Voiding on commode and had moderate soft BM[facility]
--- NOTE | 2025-05-23 19:23 | PM.PNGS ---
Subjective Subjective Date of Service: 05/25/25 Interval history: Patient expressing frustration with her NG tube. Darker material coming out. Her abdomen is softer status post her sigmoidoscopy and detorsion of her sigmoid volvulus. She has some complaints of generalized pain no nausea Physical Exam Vital Signs: Vital Signs: Last Vital Signs Temp 97.6 F 05/23/25 15:48 Pulse 84 05/23/25 15:48 Resp 18 05/23/25 15:48 BP 134/64 05/23/25 15:48 Pulse Ox 92 05/23/25 15:48 O2 Del Method Room Air 05/23/25 15:48 O2 Flow Rate 1 05/21/25 03:08 BMI result Body Mass Index 35.6 Resp: Effort & Inspection: normal respiratory effort Auscultation: clear to auscultation bilaterally Cardio: Rate: regular rate Rhythm: regular rhythm GI: Other: Abdomen is still large distended that is soft mild diffuse tenderness but no guarding no rebound no peritoneal signs. Some hypoactive bowel sounds. Objective Data Active Medications Benzocaine (Throat Lozenge, Medicated Lozenge) 1 lozenge MUCOUS MEM Q2H PRN PRN Reason: Sore Throat Last Admin: 05/23/25 00:14 Dose: 1 lozenge Documented By: LUZ Calcium Carbonate (Calcium Carbonate 750 Mg Tab.Chew) 750 mg PO Q4H PRN PRN Reason: Heartburn Ceftriaxone Sodium (Ceftriaxone Sodium 1 Gm Vial) 1 gm IVPUSH Q24H [facility] Last Admin: 05/23/25 15:37 Dose: 1 gm Documented By: CARLOS Enoxaparin Sodium (Enoxaparin Sodium 40 Mg/0.4 Ml Syringe) 40 mg SUBCUT Q24H [facility] Last Admin: 05/23/25 12:43 Dose: 40 mg Documented By: CARLOS Hydromorphone HCl (Hydromorphone Hcl 1 Mg/Ml Syringe) 1 mg IVPUSH Q4H PRN; Protocol PRN Reason: Pain, Severe (Pain Scale 7-10) Last Admin: 05/23/25 14:14 Dose: 1 mg Documented By: CARLOS Acetaminophen (Ofirmev) 1,000 mg in 100 mls @ 400 mls/hr IV Q6H [facility] Last Infusion: 05/23/25 16:34 Dose: Infused Documented By: CARLOS Lactated Ringer's (Lr) 1,000 mls @ 100 mls/hr IVCONT .Q10H [facility] Last Admin: 05/23/25 17:50 Dose: 100 mls/hr Documented By: CARLOS Nutrition (Parenteral) (Parenteral Nutrition) 1,320 mls @ 55 mls/hr IV .Q24H [facility]; Protocol Stop: 05/24/25 20:59 Magnesium Hydroxide (Milk Of Magnesia 30 Ml Oral.Susp) 30 ml PO DAILY PRN PRN Reason: Constipation Melatonin (Melatonin 3 Mg Tablet) 6 mg PO BEDTIME PRN PRN Reason: Insomnia Ondansetron HCl (Ondansetron Hcl 4 Mg/2 Ml Vial) 4 mg IVPUSH Q6H PRN PRN Reason: Nausea and Vomiting Last Admin: 05/23/25 08:32 Dose: 4 mg Documented By: CARLOS Pharmacy Consult (Consult Rx Parenteral Nutrition Ordering) 1 each MISCELLANE DAILY PRN PRN Reason: Consult order Sodium Chloride (0.9 % Sodium Chloride Flush 3 Ml Syringe) 3 ml IVFLUSH QSHIFT [facility] Last Admin: 05/23/25 15:15 Dose: Not Given Documented By: CARLOS Non-Admin Reason: IV Running Labs 05/24/25 09:15 05/24/25 09:15 Labs: Laboratory Results - last 24 hr 05/23/25 05/23/25 10:39 10:39 Anion Gap 16 Estim Creat Clear Calc 117.8 Estimated GFR > 60 Random Glucose 69 Calcium 8.8 Phosphorus 3.6 Magnesium 1.9 Total Bilirubin 0.2 AST 14 ALT 8 Alkaline Phosphatase 79 Total Protein 6.3 L Albumin 3.6 3.5 Triglycerides 150 H Microbiology Microbiology Results: Microbiology 05/20/25 16:19 Blood Culture - Preliminary Blood - Venous No growth after 48 hours. 05/20/25 16:19 Blood Culture - Preliminary Blood - Venous No growth after 48 hours. Procedures Date of Service Date of Service: 05/25/25 Progress Note: A&P Assessment and plan (1) Sigmoid volvulus: Status: Acute Assessment and Plan: 59-year-old female with very redundant colon specifically sigmoid colon having volvulus that was reduced. Patient probably has some degree of atonic colon and causing small bowel ileus. Well her abdomen is much improved and I do not think that she has not ongoing volvulus at this point she does have so ileus pattern with NG tube drainage of darker bilious material and some generalized diffuse abdominal pain. Patient has not been able to eat well secondary to all of this and so plan will be to start PPN today. Hopefully we can try to clamp for NG tube and see how she does tolerating some p.o. diet. We would like to mobilize her and get her up and moving more. Time Spent With Patient Time: Total time managing care of this patient today ____ minutes. Quality Stroke Does the patient have a stroke diagnosis?: No VTE Prior VTE?: No VTE Risk Level:: Surgical - low VTE Device Contraindication: N/A - Device Ordered VTE Drug Contraindication: N/A - Med Ordered
[2025-05-23 19:59] VITALS: BP 144/92; PULSE 93; RESP 18; TEMP 36.4; O2SAT 90
[2025-05-23 20:34] VITALS: O2SAT 94
[2025-05-23] MEDS: Parenteral Nutrition 1,320 ML 55 ML IV (22:04)
[2025-05-24] VITALS (17 sets, daily range): BP systolic 112–171; BP diastolic 56–84; PULSE 18–85; RESP 17–78; TEMP 36.1–37; O2SAT 92–96
[2025-05-24 01:19] LABS: MANUAL DIFF FLAG NO
[2025-05-24 01:28] LABS: Hematocrit 21.3 % (37.0-47.0); Imm Gran Abs Auto 0.15 X10*3/uL (0.00-0.03); Imm Gran Pct Auto 1.1 % (0.0-0.4); Lymphocytes Absolute Auto 3.5 X10*3/uL (1.2-4.9); Mean Corpuscular HGB Conc 29.6 g/dl (31.0-35.0); Mean Corpuscular Hemoglobin 21.7 pg (27.0-33.0); Mean Corpuscular Volume 73.4 fL (80.0-98.0); NRBC Abs Auto 0.080 X10*3/uL (0.0-0.012); NRBC Pct Auto 0.6 /100WBC (0.0-0.2); Platelet Count 404 X10*3/uL (160-400); Red Blood Count 2.90 X10*6/uL (4.20-5.50); White Blood Count 13.9 X10*3/uL (4.8-10.8)
[2025-05-24 01:30] LABS: VBG HCO3 31 mmol/L (22-26)
[2025-05-24 01:31] LABS: Venous Blood Gas Refer to POC result
[2025-05-24 01:33] LABS: Ammonia 39 umol/L (13-55)
[2025-05-24 01:34] LABS: Hemoglobin 6.3 g/dl (12.0-16.0)
[2025-05-24 01:39] LABS: Alanine Aminotransferase 8 U/L (0-31); Albumin Level 3.5 g/dL (3.5-5.0); Alkaline Phosphatase 86 U/L (39-117); Anion Gap 16 (12-20); Aspartate Amino Transferase 18 U/L (5-31); Blood Urea Nitrogen 14 mg/dL (9-16); Calcium 8.9 mg/dL (8.4-10.2); Carbon Dioxide 29 mmol/L (22-29); Chloride 100 mmol/L (96-108); Creatinine Clr Calc Pharmacy 120.1; Estimated Glomerular Filt Rate > 60; Magnesium 1.8 mg/dL (1.6-2.6); Potassium 3.5 mmol/L (3.3-5.1); Sodium 141 mmol/L (135-145); Total Protein 6.2 g/dL (6.5-8.0)
[2025-05-24 01:40] LABS: GASOB Int Neg Ctl Valid YES; GASOB Int Pos Ctl Valid YES; GASOB Lot 20542 10
[2025-05-24 02:17] LABS: INTERNATIONAL NORM RATIO 1.1 (0.9-1.1); Prothrombin Time 12.7 SEC (10.9-12.4)
--- NOTE | 2025-05-24 02:21 | PC.NURSE ---
protamine sulfate IV one dose ordered but Dr Taqueria watkins to hold for now and she will let us now if needed.
--- NOTE | 2025-05-24 02:26 | PC.NURSE ---
On assessment pt was very drowsy and vague, not responding to questions asked in icelandic and kazakh, she had new found trembling and irritable behavior. Blood sugar was 85, Dr Meng at bedside. Labs, CAT scan and blood ordered. Nursing hospice clinical supervisor Kira aware
--- NOTE | 2025-05-24 02:33 | PM.EVENT ---
Event Note Date of Service: 05/24/25 Event Note: 1:00 am - I was contacted by strip mine supervisor, patient seems confused. She is moaning. Openign eyes spontaneously and follows simple commands. Alert X2. VS stable. Her abdomen is huge, increased bowel sounds. She does not answer me appropriately but moans when I palpated her abdomen. Cardiopulm exam is okay. Her NGT and container is draining wine color fluid. She has been getting dilaudid but no other sedatives. I held Lovenox, giving Protonix IV and checking labs stat. Also checking head CT scan + abdomen pelvic CT scan. Contacted Dr. Holland to update her, she agreed with current plan. 1:55 am - hemoglobin 6.3 hematocrit 21.3. Platelets 404. PT is prolonged 12.7. INR is normal. No CO2 retention on venous gas. LFTs, renal function electrolytes are normal. Gastric occult blood is positive. I have contacted patient HCP, Lanny Soto, and gave me verbal consent for blood transfusions. She was informed about the benefits and risks of blood transfusion. Lovenox on hold. Therapy with Protonix 80 mg IV given and continue 40 mg IV twice daily. We will also give protamine 25 mg IV as well as 5 mg of vitamin K. Time Spent With Patient Time: Total time managing care of this patient today ____ minutes.
[2025-05-24] MEDS: iohexoL 350 MG/ML 100 ML INFUS..BTL IV (02:39)
[2025-05-24 03:57] LABS: Partial Thromboplastin Time 51.6 SEC (26.7-34.1)
[2025-05-24 07:18] LABS: Glucose, Whole Blood 86 mg/dL (60-115)
--- NOTE | 2025-05-24 08:50 | MHC.CLN ---
F/U NPO WITH NGT FOR OUTPUT REVIEWED LABS DISCUSSED WITH PHARMACY RECOMMEND PPN AT 55ML/HR WITH 76G LIPIDS TO PROVIDE 1433 TOTAL KCALS, 132G DEXTROSE, 56G PROTEIN REPLETE LYTES NEEDED FULL ASSESSMENT TO FOLLOW
[2025-05-24 09:38] LABS: Hematocrit 27.0 % (37.0-47.0); Hemoglobin 8.3 g/dl (12.0-16.0); Imm Gran Abs Auto 0.25 X10*3/uL (0.00-0.03); Imm Gran Pct Auto 2.0 % (0.0-0.4); Lymphocytes Absolute Auto 2.0 X10*3/uL (1.2-4.9); MANUAL DIFF FLAG NO; Mean Corpuscular HGB Conc 30.7 g/dl (31.0-35.0); Mean Corpuscular Hemoglobin 22.9 pg (27.0-33.0); Mean Corpuscular Volume 74.4 fL (80.0-98.0); NRBC Abs Auto 0.110 X10*3/uL (0.0-0.012); NRBC Pct Auto 0.9 /100WBC (0.0-0.2); Platelet Count 410 X10*3/uL (160-400); Red Blood Count 3.63 X10*6/uL (4.20-5.50); White Blood Count 12.7 X10*3/uL (4.8-10.8)
[2025-05-24] MEDS: 0.9 % Sodium Chloride Flush 3 ML SYRINGE IVFLUSH ×2 (09:50→17:46)
[2025-05-24 09:56] LABS: Alanine Aminotransferase 7 U/L (0-31); Albumin Level 3.7 g/dL (3.5-5.0); Alkaline Phosphatase 85 U/L (39-117); Anion Gap 16 (12-20); Aspartate Amino Transferase 20 U/L (5-31); Blood Urea Nitrogen 11 mg/dL (9-16); Calcium 9.0 mg/dL (8.4-10.2); Carbon Dioxide 28 mmol/L (22-29); Chloride 100 mmol/L (96-108); Creatinine Clr Calc Pharmacy 120.1; Estimated Glomerular Filt Rate > 60; Magnesium 1.9 mg/dL (1.6-2.6); Potassium 3.6 mmol/L (3.3-5.1); Sodium 140 mmol/L (135-145); Total Protein 6.7 g/dL (6.5-8.0)
--- NOTE | 2025-05-24 15:21 | P.PNGS_ITS ---
Subjective Subjective Date of Service: 05/25/25 Interval history: Patient moaning complaining of abdominal pain. Being transfused packed red blood cells for anemia. Overnight patient has started becoming less responsive more confused and blood workup CT of the head and abdomen and pelvis was carried out. Patient was noted to have worsened anemia hemoglobin of 8.2 decreased to 6.2. and NG-tube content looked bloody. She was transferred to telemetry and over the course of the night into the morning improved. CT of the abdomen and pelvis showed consistent distended colon No true small-bowel obstruction. NG tube putting out more bilious material not bloody today. Physical Exam 2 Vital Signs: Vital Signs: Last Vital Signs Temp 98.3 F 05/24/25 14:58 Pulse 71 05/24/25 14:58 Resp 18 05/24/25 14:58 BP 158/62 H 05/24/25 14:58 Pulse Ox 96 05/24/25 10:55 O2 Del Method Room Air 05/24/25 10:55 O2 Flow Rate 1 05/21/25 03:08 BMI result Body Mass Index 35.6 Const: General: cooperative and acute distress mild Cardio: Rate: regular rate Rhythm: regular rhythm GI: Other: Abdomen is soft better bowel sounds mildly diffusely tender and no rebound no guarding no peritoneal signs. Patient pointing out the more tender to the wards the epigastric area. Objective Data Active Medications Benzocaine (Throat Lozenge, Medicated Lozenge) 1 lozenge MUCOUS MEM Q2H PRN PRN Reason: Sore Throat Last Admin: 05/23/25 00:14 Dose: 1 lozenge Documented By: LUZ Calcium Carbonate (Calcium Carbonate 750 Mg Tab.Chew) 750 mg PO Q4H PRN PRN Reason: Heartburn Ceftriaxone Sodium (Ceftriaxone Sodium 1 Gm Vial) 1 gm IVPUSH Q24H [facility] Last Admin: 05/23/25 15:37 Dose: 1 gm Documented By: CARLOS Enoxaparin Sodium (Enoxaparin Sodium 40 Mg/0.4 Ml Syringe) 40 mg SUBCUT Q24H [facility] On Hold: 05/24/25 01:09 Last Admin: 05/23/25 12:43 Dose: 40 mg Documented By: CARLOS Acetaminophen (Ofirmev) 1,000 mg in 100 mls @ 400 mls/hr IV Q6H [facility] Last Infusion: 10/05/25 10:18 Dose: Infused Documented By: KATIE Nutrition (Parenteral) (Parenteral Nutrition) 1,320 mls @ 55 mls/hr IV .Q24H [facility]; Protocol Stop: 05/24/25 20:59 Last Infusion: 05/24/25 04:51 Dose: 0 mls/hr Documented By: ELIZABETH Nutrition (Parenteral) (Parenteral Nutrition) 1,320 mls @ 55 mls/hr IV .Q24H [facility]; Protocol Stop: 05/25/25 20:59 Dextrose/Sodium Chloride (D5ns) 1,000 mls @ 80 mls/hr IVCONT .[id number] [facility] Last Admin: 05/24/25 12:26 Dose: 80 mls/hr Documented By: KATIE Magnesium Hydroxide (Milk Of Magnesia 30 Ml Oral.Susp) 30 ml PO DAILY PRN PRN Reason: Constipation Melatonin (Melatonin 3 Mg Tablet) 6 mg PO BEDTIME PRN PRN Reason: Insomnia Ondansetron HCl (Ondansetron Hcl 4 Mg/2 Ml Vial) 4 mg IVPUSH Q6H PRN PRN Reason: Nausea and Vomiting Last Admin: 05/23/25 08:32 Dose: 4 mg Documented By: CARLOS Pantoprazole Sodium (Pantoprazole Sodium 40 Mg/10 Ml Vial) 40 mg IVPUSH BID@0630,1630 [facility] Last Admin: 05/24/25 09:50 Dose: 40 mg Documented By: KATIE Pharmacy Consult (Consult Rx Parenteral Nutrition Ordering) 1 each MISCELLANE DAILY PRN PRN Reason: Consult order Sodium Chloride (0.9 % Sodium Chloride Flush 3 Ml Syringe) [address] [facility] Last Admin: 05/24/25 09:50 Dose: 3 ml Documented By: KATIE Labs 05/24/25 09:15 05/24/25 09:15 Labs: Laboratory Results - last 24 hr 05/24/25 05/24/25 05/24/25 00:55 00:56 01:14 MCV 73.4 L MCH 21.7 L MCHC 29.6 L RDW 21.2 H Plt Count 404 H MPV 10.1 Immature Gran % (Auto) 1.1 H Neut % (Auto) 62.2 Lymph % (Auto) 25.3 Franklin % (Auto) 9.6 Eos % (Auto) 1.6 Baso % (Auto) 0.2 Lymph # (Auto) 3.5 Franklin # (Auto) 1.3 H Eos # (Auto) 0.2 Baso # (Auto) 0.0 Abs Immat Gran (auto) 0.15 H Absolute Neuts (auto) 8.7 H Absolute Nucleated RBC 0.080 H Nucleated RBC % (auto) 0.6 H Hold Purple Top PT INR APTT VBG pH VBG pCO2 VBG pO2 VBG HCO3 VBG O2 Saturation VBG Base Excess Anion Gap 16 Estim Creat Clear Calc 120.1 Estimated GFR > 60 POC Glucose 86 Random Glucose 89 Lactic Acid 0.6 Calcium 8.9 Phosphorus Magnesium 1.8 Total Bilirubin 0.2 AST 18 ALT 8 Alkaline Phosphatase 86 Ammonia 39 Total Protein 6.2 L Albumin 3.5 Beta-Hydroxybutyrate Hold Yellow Top Gastric Occult Blood Blood Type Antibody Screen Crossmatch 05/24/25 05/24/25 05/24/25 01:24 01:29 02:01 MCV MCH MCHC RDW Plt Count MPV Immature Gran % (Auto) Neut % (Auto) Lymph % (Auto) Franklin % (Auto) Eos % (Auto) Baso % (Auto) Lymph # (Auto) Franklin # (Auto) Eos # (Auto) Baso # (Auto) Abs Immat Gran (auto) Absolute Neuts (auto) Absolute Nucleated RBC Nucleated RBC % (auto) Hold Purple Top PT 12.7 H INR 1.1 APTT 51.6 H VBG pH 7.59 H VBG pCO2 32 VBG pO2 210 VBG HCO3 31 H VBG O2 Saturation TNP VBG Base Excess 9.1 Anion Gap Estim Creat Clear Calc Estimated GFR POC Glucose Random Glucose Lactic Acid Calcium Phosphorus Magnesium Total Bilirubin AST ALT Alkaline Phosphatase Ammonia Total Protein Albumin Beta-Hydroxybutyrate Hold Yellow Top Gastric Occult Blood POSITIVE H Blood Type O Positive Antibody Screen NEGATIVE Crossmatch See Detail 05/24/25 05/24/25 05/24/25 02:06 08:46 09:15 MCV 74.4 L MCH 22.9 L MCHC 30.7 L RDW 20.6 H Plt Count 410 H MPV 10.1 Immature Gran % (Auto) 2.0 H Neut % (Auto) 71.3 Lymph % (Auto) 15.5 L Franklin % (Auto) 10.1 Eos % (Auto) 0.8 Baso % (Auto) 0.3 Lymph # (Auto) 2.0 Franklin # (Auto) 1.3 H Eos # (Auto) 0.1 Baso # (Auto) 0.0 Abs Immat Gran (auto) 0.25 H Absolute Neuts (auto) 9.1 H Absolute Nucleated RBC 0.110 H Nucleated RBC % (auto) 0.9 H Hold Purple Top SEE NOTE PT INR APTT VBG pH VBG pCO2 VBG pO2 VBG HCO3 VBG O2 Saturation VBG Base Excess Anion Gap 16 Estim Creat Clear Calc 120.1 Estimated GFR > 60 POC Glucose Random Glucose 81 Lactic Acid 0.6 Calcium 9.0 Phosphorus 3.8 3.5 Magnesium 1.9 Total Bilirubin 0.7 AST 20 ALT 7 Alkaline Phosphatase 85 Ammonia Total Protein 6.7 Albumin 3.7 Beta-Hydroxybutyrate 2.56 H Hold Yellow Top See Note Gastric Occult Blood Blood Type Antibody Screen Crossmatch Imaging CT scan - pelvis: Radiologist's impression: Patient: Douglas Beckwith MR#: [id number] : 10/10/1956 Acct:[id number] Age/Sex: 68 / M ADM Date: 05/13/25 Loc: [facility] 443-[address]: Brian Waller MD Ordering Physician: Srinivasa Mccarty MD Date of Service: 05/24/25 Procedure(s): CT abdomen pelvis wo IV con Accession Number(s): [id number] cc: [facility]; Srinivasa Mccarty MD~ Report Number: [id number]: Total DLP = 0.00 mGy-cm Reason for Exam: Abdominal distention, altered mental status ADDENDUMThis document has been electronically signed by: Vikas Hollingsworth MD, PHD on 05/24/2025 03:13:41 ADDENDUM: This report was discussed with Noemí Callejas RN on May 24, 2025 03:23:00 EDT. This document has been electronically signed by: Sussy Worrell on 05/24/2025 03:23:50 Addendum Dictated By: Vikas Hollingsworth MD Addendum Signed By: <Electronically signed by Vikas Hollingsworth MD in [place]> 05/24/25323 Addendum Cosigned By: DD/ /11/313 TD/TT: 05/24/2501/11/323 CLINICAL HISTORY: Abdominal distention, altered mental status CT abdomen and pelvis without contrast Comparison: CT/SR - CT ABDOMEN PELVIS WO IV CON - 05/17/25 13:33 EDT Findings: Redemonstration of right lower lobe consolidation and layering effusion. Calcified pleural plaque likely reflects prior asbestos exposure. The heart is enlarged. Liver has a nodular contour, cirrhotic change. Gallstones in the dependent gallbladder. Pancreas, spleen and adrenal glands are within normal limits. The kidneys are non hydronephrotic. Central mesenteric fat stranding is present with contained extraluminal gas in the adjacent mesentery ( axial series 6, image 54 ). Inflammatory changes are associated with a dilated fluid-filled loop of bowel measuring up to 4.3 cm. Fluid in the distal large bowel suggesting abnormal motility. Extensive atherosclerotic vascular calcifications are present. Pelvic contents unremarkable. Normal appendix. No acute fracture. IMPRESSION: Redemonstration of small-bowel obstruction. Contained extraluminal gas in the adjacent mesentery with associated mesenteric edema. Finding may reflect contained perforation versus mesenteric venous gas concerning for ischemic bowel. Please correlate clinically. Stable ancillary CT findings detailed above. This document has been electronically signed by: Vikas Hollingsworth MD, PHD on 05/24/2025 03:13:41 Dictated By: Vikas Hollingsworth MD Signed By: <Electronically signed by Vikas Hollingsworth MD in [place]> 05/24/25314 DD/ 2 TD/TT: 05/24/25312 Retread Mold Operator: Procedures Date of Service Date of Service: 05/25/25 Progress Note: A&P Assessment and plan (1) Sigmoid volvulus: Status: Acute Assessment and Plan: 59-year-old female with psych issues and redundant colon causing issues with sigmoid volvulus. At this point in time volvulus is not present but she does have probably atonic colon and this is causing some degree of an ileus pattern with her small bowel. NG tube is required for this but now noted to have upper GI bleed. Patient put on IV ppi and being transfused 3 units of packed red blood cells today. Her hemodynamics are okay. During the time of this ileus she has not been able to take all of her psych meds and maybe this is caused some worsening of her issues. High-risk who is her caregiver says that she does have schizophrenia and hears voices and responding to the voices but generally has been okay. Patient did not want to undergo any surgical intervention in regard to the colectomy but I am thinking that her atonic colon maybe causing some of these issues as well. Her abdomen continues to be distended but not as bad as with the volvulus. Patient may not be as competence enough to give her best recommendation and patient's caregiver we will discuss certain options and encourage the patient to make the best choice for her improving health. In the meantime no need to have any emergent surgical intervention. Continue with the NG tube the PPN IV ppi serial abdominal exams blood transfusion and follow up with a hematocrit. She has been stable. May electively have GI carry out upper EGD to evaluate the gastric mucosa. Time Spent With Patient Time: Total time managing care of this patient today ____ minutes. Quality Stroke Does the patient have a stroke diagnosis?: No VTE Prior VTE?: No VTE Risk Level:: Surgical - low VTE Device Contraindication: N/A - Device Ordered VTE Drug Contraindication: N/A - Med Ordered
[2025-05-24 18:30] LABS: Alanine Aminotransferase 7 U/L (0-31); Albumin Level 3.8 g/dL (3.5-5.0); Alkaline Phosphatase 83 U/L (39-117); Anion Gap 19 (12-20); Aspartate Amino Transferase 20 U/L (5-31); Blood Urea Nitrogen 10 mg/dL (9-16); Calcium 9.1 mg/dL (8.4-10.2); Carbon Dioxide 25 mmol/L (22-29); Chloride 100 mmol/L (96-108); Creatinine Clr Calc Pharmacy 115.5; Estimated Glomerular Filt Rate > 60; Potassium 3.9 mmol/L (3.3-5.1); Sodium 140 mmol/L (135-145); Total Protein 6.5 g/dL (6.5-8.0)
[2025-05-24] MEDS: Parenteral Nutrition 1,320 ML 55 ML IV (23:02)
[2025-05-25] MEDS: 0.9 % Sodium Chloride Flush 3 ML SYRINGE IVFLUSH (03:21)
[2025-05-25 03:30] VITALS: BP 135/80; PULSE 77; RESP 18; TEMP 36.2; O2SAT 95
[2025-05-25 06:55] LABS: Hematocrit 34.6 % (37.0-47.0); Hemoglobin 11.4 g/dl (12.0-16.0); Imm Gran Abs Auto 0.22 X10*3/uL (0.00-0.03); Imm Gran Pct Auto 1.5 % (0.0-0.4); Lymphocytes Absolute Auto 1.9 X10*3/uL (1.2-4.9); MANUAL DIFF FLAG SCAN; Mean Corpuscular HGB Conc 32.9 g/dl (31.0-35.0); Mean Corpuscular Hemoglobin 25.6 pg (27.0-33.0); Mean Corpuscular Volume 77.8 fL (80.0-98.0); NRBC Abs Auto 0.080 X10*3/uL (0.0-0.012); NRBC Pct Auto 0.5 /100WBC (0.0-0.2); Platelet Count 404 X10*3/uL (160-400); Red Blood Count 4.45 X10*6/uL (4.20-5.50); SCAN SMEAR FLAG 1; White Blood Count 15.1 X10*3/uL (4.8-10.8)
[2025-05-25 07:10] LABS: Alanine Aminotransferase 8 U/L (0-31); Albumin Level 3.6 g/dL (3.5-5.0); Alkaline Phosphatase 83 U/L (39-117); Anion Gap 12 (12-20); Aspartate Amino Transferase 19 U/L (5-31); Blood Urea Nitrogen 10 mg/dL (9-16); Calcium 8.9 mg/dL (8.4-10.2); Carbon Dioxide 25 mmol/L (22-29); Chloride 105 mmol/L (96-108); Creatinine Clr Calc Pharmacy 120.1; Estimated Glomerular Filt Rate > 60; Magnesium 1.8 mg/dL (1.6-2.6); Potassium 3.4 mmol/L (3.3-5.1); Sodium 139 mmol/L (135-145); Total Protein 6.5 g/dL (6.5-8.0)
[2025-05-25 07:15] VITALS: BP 142/72; PULSE 70; RESP 17; TEMP 36.4; O2SAT 94
--- NOTE | 2025-05-25 08:38 | PM.PNGS ---
Subjective Subjective Date of Service: 05/25/25 <Jose Killian PA-C - Last Filed: 05/25/25 10:18> 05/25/25 <Juan Alberto Escobar MD - Last Filed: 05/25/25 09:57> Interval history: Difficult historian today, denying pain or nausea. Passing gas, passing bowel movements <Jose Killian PA-C - Last Filed: 05/25/25 10:18> Physical Exam Vital Signs: Vital Signs: Last Vital Signs Temp 97.6 F 05/25/25 07:15 Pulse 70 05/25/25 07:15 Resp 17 05/25/25 07:15 BP 142/72 H 05/25/25 07:15 Pulse Ox 94 05/25/25 07:15 O2 Del Method Room Air 05/25/25 07:15 O2 Flow Rate 1 05/21/25 03:08 BMI result Body Mass Index 35.6 <Jose Killian PA-C - Last Filed: 05/25/25 10:18> Const: General: comfortable and no acute distress <Jose Killian PA-C - Last Filed: 05/25/25 10:18> GI: Other: NG tube in place <Jose Killian PA-C - Last Filed: 05/25/25 10:18> Inspection: Yes distended (Mild) <Jose Killian PA-C - Last Filed: 05/25/25 10:18> Palpation (GI): Soft to palpation and nontender <Jose Killian PA-C - Last Filed: 05/25/25 10:18> Auscultation: Hypoactive bowel sounds present <Jose Killian PA-C - Last Filed: 05/25/25 10:18> Objective Data Active Medications Benzocaine (Throat Lozenge, Medicated Lozenge) 1 lozenge MUCOUS MEM Q2H PRN PRN Reason: Sore Throat Last Admin: 05/23/25 00:14 Dose: 1 lozenge Documented By: LUZ Calcium Carbonate (Calcium Carbonate 750 Mg Tab.Chew) 750 mg PO Q4H PRN PRN Reason: Heartburn Ceftriaxone Sodium (Ceftriaxone Sodium 1 Gm Vial) 1 gm IVPUSH Q24H LAXMI Last Admin: 05/24/25 17:45 Dose: 1 gm Documented By: KATIE Enoxaparin Sodium (Enoxaparin Sodium 40 Mg/0.4 Ml Syringe) 40 mg SUBCUT Q24H [facility], [facility] On Hold: 05/24/25 01:09 Last Admin: 05/23/25 12:43 Dose: 40 mg Documented By: CARLOS Acetaminophen (Ofirmev) 1,000 mg in 100 mls @ 400 mls/hr IV Q6H [facility] Last Infusion: 05/25/25 04:15 Dose: Infused Documented By: ELIO Nutrition (Parenteral) (Parenteral Nutrition) 1,320 mls @ 55 mls/hr IV .Q24H [facility], [facility]; Protocol Stop: 05/25/25 20:59 Last Admin: 05/24/25 23:02 Dose: 55 mls/hr Documented By: LEIO Dextrose/Sodium Chloride (D5ns) 1,000 mls @ 80 mls/hr IVCONT .[id number] [facility], [facility] Last Admin: 05/25/25 00:33 Dose: 80 mls/hr Documented By: ELIO Magnesium Hydroxide (Milk Of Magnesia 30 Ml Oral.Susp) 30 ml PO DAILY PRN PRN Reason: Constipation Melatonin (Melatonin 3 Mg Tablet) 6 mg PO BEDTIME PRN PRN Reason: Insomnia Ondansetron HCl (Ondansetron Hcl 4 Mg/2 Ml Vial) 4 mg IVPUSH Q6H PRN PRN Reason: Nausea and Vomiting Last Admin: 05/23/25 08:32 Dose: 4 mg Documented By: CARLOS Pantoprazole Sodium (Pantoprazole Sodium 40 Mg/10 Ml Vial) 40 mg IVPUSH BID@0630,1630 [facility] Last Admin: 05/25/25 06:14 Dose: 40 mg Documented By: ELIO Pharmacy Consult (Consult Rx Parenteral Nutrition Ordering) 1 each MISCELLANE DAILY PRN PRN Reason: Consult order Sodium Chloride (0.9 % Sodium Chloride Flush 3 Ml Syringe) 3 ml IVFLUSH QSHIFT [facility] Last Admin: 05/25/25 08:35 Dose: Not Given Documented By: BRITTANY Non-Admin Reason: IV Running <Jose Killian PA-C - Last Filed: 05/25/25 10:18> Labs CBC & Chem 7: 05/25/25 06:39 05/25/25 06:39 <Jose Killian PA-C - Last Filed: 05/25/25 10:18> Labs: Laboratory Results - last 24 hr 05/24/25 05/24/25 05/24/25 02:01 02:06 08:46 MCV MCH MCHC RDW Plt Count MPV Immature Gran % (Auto) Neut % (Auto) Lymph % (Auto) [place] % (Auto) Eos % (Auto) Baso % (Auto) Lymph # (Auto) [place] # (Auto) Eos # (Auto) Baso # (Auto) Abs Immat Gran (auto) Absolute Neuts (auto) Absolute Nucleated RBC Nucleated RBC % (auto) Smear Tech's Comments Anion Gap 16 Estim Creat Clear Calc 120.1 Estimated GFR > 60 Random Glucose 81 Lactic Acid Calcium 9.0 Phosphorus 3.8 3.5 Magnesium 1.9 Total Bilirubin 0.7 AST 20 ALT 7 Alkaline Phosphatase 85 Total Protein 6.7 Albumin 3.7 Beta-Hydroxybutyrate Blood Type O Positive Antibody Screen NEGATIVE Crossmatch See Detail 05/24/25 05/25/25 09:15 06:39 MCV 74.4 L 77.8 L MCH 22.9 L 25.6 L MCHC 30.7 L 32.9 RDW 20.6 H 19.6 H Plt Count 410 H 404 H MPV 10.1 10.8 Immature Gran % (Auto) 2.0 H 1.5 H Neut % (Auto) 71.3 73.9 H Lymph % (Auto) 15.5 L 12.9 L [place] % (Auto) 10.1 10.7 Eos % (Auto) 0.8 0.7 Baso % (Auto) 0.3 0.3 Lymph # (Auto) 2.0 1.9 [place] # (Auto) 1.3 H 1.6 H Eos # (Auto) 0.1 0.1 Baso # (Auto) 0.0 0.0 Abs Immat Gran (auto) 0.25 H 0.22 H Absolute Neuts (auto) 9.1 H 11.2 H Absolute Nucleated RBC 0.110 H 0.080 H Nucleated RBC % (auto) 0.9 H 0.5 H Smear Tech's Comments VERIFIED Anion Gap 19 12 Estim Creat Clear Calc 115.5 120.1 Estimated GFR > 60 > 60 Random Glucose 78 202 H Lactic Acid 0.6 Calcium 9.1 8.9 Phosphorus 2.6 L Magnesium 1.8 Total Bilirubin 0.6 0.4 AST 20 19 ALT 7 8 Alkaline Phosphatase 83 83 Total Protein 6.5 6.5 Albumin 3.8 3.6 Beta-Hydroxybutyrate 2.56 H Blood Type Antibody Screen Crossmatch <Jose Killian PA-C - Last Filed: 05/25/25 10:18> Procedures Date of Service Date of Service: 05/25/25 <Jose Killian PA-C - Last Filed: 05/25/25 10:18> 05/25/25 <Juan Alberto Escobar MD - Last Filed: 05/25/25 09:57> Progress Note: A&P Assessment and plan (1) Sigmoid volvulus: Status: Acute <Jose Killian PA-C - Last Filed: 05/25/25 10:18> Assessment and Plan: Events of the weekend reviewed She denies any abdominal pain Abdomen remained soft and benign She is passing good stools NG tube output remains in place, not bloody output CAT scan from yesterday reviewed - large amounts of stool in the colon and rectum but no evidence of obstruction We will check KUB Keep NG tube in place for now and I will consider removing this a trial later Seen and examined independently <Juan Alberto Escobar MD - Last Filed: 05/25/25 09:57> Assessment and Plan: 59 year old female admitted for sigmoid volvulous s/p felx sig, with identification of the transition point, was able to pass this point and detorse the colon. Over the weekend, became less responsive, confused. Patient had worsening anemia from upper GI bleed, got 3 units packed red blood cells , repeat labs today reassuring, now 11.4. Leukocytosis now 15.1 today. She has been getting PPN. Today she is continues to seem less responsive, possibly but confused. Did express that she does not have abdominal pain and nausea. Has been passing bowel movements consistently over the past few days. Her abdomen is soft and benign, there was some mild distention however this is improved from last week. NG tube remains in place, there remains some significant output Continue PPN We will order KUB Continue to monitor for worsening anemia, electrolyte imbalances Maintain NG Continue PPI Serial abdominal exams <Jose Killian PA-C - Last Filed: 05/25/25 10:18> Time Spent With Patient Time: Total time managing care of this patient today ____ minutes. <Jose Killian PA-C - Last Filed: 05/25/25 10:18> Quality Stroke Does the patient have a stroke diagnosis?: No <Jose Killian PA-C - Last Filed: 05/25/25 10:18> VTE Prior VTE?: No <Jose Killian PA-C - Last Filed: 05/25/25 10:18> VTE Risk Level:: Surgical - low <Joes Killian PA-C - Last Filed: 05/25/25 10:18> VTE Device Contraindication: N/A - Device Ordered <Jose Killian PA-C - Last Filed: 05/25/25 10:18> VTE Drug Contraindication: N/A - Med Ordered <Jose Killian PA-C - Last Filed: 05/25/25 10:18>
[2025-05-25 10:12] VITALS: BMI 35.6
--- NOTE | 2025-05-25 10:16 | MHC.CLN ---
NPO CONTINUES WITH NGT FOR OUTPUT NOTED PT HAVING BM CONFUSED PER MD REVIEWED LABS DISCUSSED WITH PHARMACY RECOMMEND INCREASING PPN TO 70ML/HR WITH 52G LIPIDS TO PROVIDE 1377 TOTAL KCALS (23KCALS/KG), 168G DEXTROSE, 71G PROTEIN (1.2G/KG) REPLETE LYTES NEEDED SEE FULL ASSESSMENT
[2025-05-25 11:08] VITALS: BP 150/74; PULSE 75; RESP 18; TEMP 36.1; O2SAT 97
[2025-05-25 15:20] VITALS: BP 148/87; PULSE 80; RESP 17; TEMP 36.3; O2SAT 96
--- NOTE | 2025-05-25 15:53 | MHC.CM.PN ---
EMR REVIEWED AND PER MD ROUNDS, PT IS NOT MEDICALLY CLEARED FOR DISCHARGE DUE TO MANAGEMENT OF SIGMOID VOLVULUS, ON PPN.
--- NOTE | 2025-05-25 16:50 | PM.EVENT ---
Event Note Date of Service: 05/25/25 Event Note: PICC line not done today Continue PPN Patient passing flatus and BMs Abdomen remained soft and benign Hopefully we can DC the NG tube tomorrow after clamping dry Time Spent With Patient Time: Total time managing care of this patient today ____ minutes.
[2025-05-25 19:59] VITALS: BP 173/84; PULSE 83; RESP 18; TEMP 36.5; O2SAT 95
[2025-05-25] MEDS: Parenteral Nutrition 1,680 ML 70 ML IV (22:27)
[2025-05-26] VITALS (10 sets, daily range): BP systolic 132–190; BP diastolic 75–108; PULSE 63–77; RESP 18–20; TEMP 36.4–37.4; O2SAT 94–97
[2025-05-26] MEDS: 0.9 % Sodium Chloride Flush 3 ML SYRINGE IVFLUSH ×3 (00:50→20:14)
[2025-05-26 00:53] LABS: Glucose, Whole Blood 190 mg/dL (60-115)
[2025-05-26 06:10] LABS: MANUAL DIFF FLAG NO
[2025-05-26 06:24] LABS: Hematocrit 33.2 % (37.0-47.0); Hemoglobin 10.8 g/dl (12.0-16.0); Imm Gran Abs Auto 0.15 X10*3/uL (0.00-0.03); Imm Gran Pct Auto 1.0 % (0.0-0.4); Lymphocytes Absolute Auto 2.1 X10*3/uL (1.2-4.9); Mean Corpuscular HGB Conc 32.5 g/dl (31.0-35.0); Mean Corpuscular Hemoglobin 25.5 pg (27.0-33.0); Mean Corpuscular Volume 78.3 fL (80.0-98.0); NRBC Abs Auto 0.020 X10*3/uL (0.0-0.012); NRBC Pct Auto 0.1 /100WBC (0.0-0.2); Platelet Count 358 X10*3/uL (160-400); Red Blood Count 4.24 X10*6/uL (4.20-5.50); White Blood Count 14.4 X10*3/uL (4.8-10.8)
[2025-05-26 06:46] LABS: Alanine Aminotransferase 9 U/L (0-31); Albumin Level 3.5 g/dL (3.5-5.0); Alkaline Phosphatase 82 U/L (39-117); Anion Gap 12 (12-20); Aspartate Amino Transferase 15 U/L (5-31); Blood Urea Nitrogen 12 mg/dL (9-16); Calcium 9.1 mg/dL (8.4-10.2); Carbon Dioxide 22 mmol/L (22-29); Chloride 110 mmol/L (96-108); Creatinine Clr Calc Pharmacy 117.8; Estimated Glomerular Filt Rate > 60; Magnesium 1.9 mg/dL (1.6-2.6); Potassium 4.0 mmol/L (3.3-5.1); Sodium 140 mmol/L (135-145); Total Protein 6.5 g/dL (6.5-8.0)
--- NOTE | 2025-05-26 07:33 | PC.NURSE ---
Assumed care of pt at 1900. Pt alert to self only. Tremors to upper and lower extremities. Tube Pusher called to help assess pt. Pt making vague statements like I dont have a life and refusing to answer some of this RNs questions. All other neuro assessment benign. Pt able to follow commands. Able to make needs known. Call blankenship in reach with bed in lowest position. Care ongoing.
--- NOTE | 2025-05-26 08:28 | PM.PNGS ---
Subjective Subjective Date of Service: 05/26/25 <Jose Killian PA-C - Last Filed: 05/26/25 08:39> 05/26/25 <Juan Alberto Escobar MD - Last Filed: 05/26/25 10:04> Interval history: no new complaints, sleeping, lethargic this morning <Jose Killian PA-C - Last Filed: 05/26/25 08:39> Physical Exam Vital Signs: Vital Signs: Last Vital Signs Temp 98.2 F 05/26/25 07:38 Pulse 72 05/26/25 07:38 Resp 20 05/26/25 07:38 BP 156/78 H 05/26/25 07:38 Pulse Ox 97 05/26/25 07:38 O2 Del Method Room Air 05/26/25 07:38 O2 Flow Rate 1 05/21/25 03:08 BMI result Body Mass Index 35.6 <Jose Killian PA-C - Last Filed: 05/26/25 08:39> Const: General: comfortable, no acute distress and lethargic <Jose Killian PA-C - Last Filed: 05/26/25 08:39> Orientation/consciousness: lethargic <Jose Killian PA-C - Last Filed: 05/26/25 08:39> GI: Inspection: No distended <Jose Killian PA-C - Last Filed: 05/26/25 08:39> Palpation (GI): Soft to palpation, nontender and no guarding <Jose Killian PA-C - Last Filed: 05/26/25 08:39> Auscultation: Hypoactive bowel sounds present <ZECHARIAH Goldman Last Filed: 05/26/25 08:39> Objective Data Active Medications Benzocaine (Throat Lozenge, Medicated Lozenge) 1 lozenge MUCOUS MEM Q2H PRN PRN Reason: Sore Throat Last Admin: 05/23/25 00:14 Dose: 1 lozenge Documented By: LUZ Calcium Carbonate (Calcium Carbonate 750 Mg Tab.Chew) 750 mg PO Q4H PRN PRN Reason: Heartburn Ceftriaxone Sodium (Ceftriaxone Sodium 1 Gm Vial) 1 gm IVPUSH Q24H LAXMI Last Admin: 05/25/25 16:39 Dose: 1 gm Documented By: WANDY Enoxaparin Sodium (Enoxaparin Sodium 40 Mg/0.4 Ml Syringe) 40 mg SUBCUT Q24H [facility] On Hold: 05/24/25 01:09 Last Admin: 05/23/25 12:43 Dose: 40 mg Documented By: CARLOS Dextrose/Sodium Chloride (D5ns) 1,000 mls @ 80 mls/hr IVCONT .[id number] [facility] Last Admin: 05/26/25 04:46 Dose: 80 mls/hr Documented By: NELSON Nutrition (Parenteral) (Parenteral Nutrition) 1,680 mls @ 70 mls/hr IV .Q24H [facility]; Protocol Stop: 05/26/25 20:59 Last Admin: 05/25/25 22:27 Dose: 70 mls/hr Documented By: NELSON Magnesium Hydroxide (Milk Of Magnesia 30 Ml Oral.Susp) 30 ml PO DAILY PRN PRN Reason: Constipation Melatonin (Melatonin 3 Mg Tablet) 6 mg PO BEDTIME PRN PRN Reason: Insomnia Ondansetron HCl (Ondansetron Hcl 4 Mg/2 Ml Vial) 4 mg IVPUSH Q6H PRN PRN Reason: Nausea and Vomiting Last Admin: 05/23/25 08:32 Dose: 4 mg Documented By: CARLOS Pantoprazole Sodium (Pantoprazole Sodium 40 Mg/10 Ml Vial) 40 mg IVPUSH BID@0630,1630 [facility] Last Admin: 05/26/25 06:30 Dose: 40 mg Documented By: NELSON Pharmacy Consult (Consult Rx Parenteral Nutrition Ordering) 1 each MISCELLANE DAILY PRN PRN Reason: Consult order Sodium Chloride (0.9 % Sodium Chloride Flush 3 Ml Syringe) 3 ml IVFLUSH QSHIFT [facility] Last Admin: 05/26/25 00:50 Dose: 3 ml Documented By: NELSON <Jose Killian PA-C - Last Filed: 05/26/25 08:39> Labs CBC & Chem 7: 05/26/25 06:05 05/26/25 06:05 <Jose Killian PA-C - Last Filed: 05/26/25 08:39> Labs: Laboratory Results - last 24 hr 05/26/25 05/26/25 00:49 06:05 MCV 78.3 L MCH 25.5 L MCHC 32.5 RDW 20.5 H Plt Count 358 MPV 10.0 Immature Gran % (Auto) 1.0 H Neut % (Auto) 74.1 H Lymph % (Auto) 14.9 L [place] % (Auto) 9.5 Eos % (Auto) 0.3 Baso % (Auto) 0.2 Lymph # (Auto) 2.1 [place] # (Auto) 1.4 H Eos # (Auto) 0.1 Baso # (Auto) 0.0 Abs Immat Gran (auto) 0.15 H Absolute Neuts (auto) 10.6 H Absolute Nucleated RBC 0.020 H Nucleated RBC % (auto) 0.1 Anion Gap 12 Estim Creat Clear Calc 117.8 Estimated GFR > 60 POC Glucose 190 H Random Glucose 174 H Calcium 9.1 Phosphorus 3.3 Magnesium 1.9 Total Bilirubin 0.3 AST 15 ALT 9 Alkaline Phosphatase 82 Total Protein 6.5 Albumin 3.5 <Jose Killian PA-C - Last Filed: 05/26/25 08:39> Microbiology Microbiology Results: Microbiology 05/20/25 16:19 Blood Culture - Final Blood - Venous No growth after 5 days. 05/20/25 16:19 Blood Culture - Final Blood - Venous No growth after 5 days. <Jose Killian PA-C - Last Filed: 05/26/25 08:39> Procedures Date of Service Date of Service: 05/26/25 <Jose Killian PA-C - Last Filed: 05/26/25 08:39> 05/26/25 <Juan Alberto Escobar MD - Last Filed: 05/26/25 10:04> Progress Note: A&P Assessment and plan (1) Sigmoid volvulus: Status: Acute <Jose Killian PA-C - Last Filed: 05/26/25 08:39> Assessment and Plan: Passing flatus BMs well Denies abdominal pain Answers questions Abdomen is soft and benign She had does have tremors She has a agreed to a PICC line No urgent or acute surgical intervention necessary at this time Trial of clamping of the NG tube Check electrolytes Hospitalist follow up Seen and examined independently <Juan Alberto Escobar MD - Last Filed: 05/26/25 10:04> Assessment and Plan: 59 year old female admitted for sigmoid volvulous s/p felx sig, with identification of the transition point, was able to pass this point and detorse the colon. Over the weekend, became less responsive, confused. Patient had worsening anemia from upper GI bleed, H&h stable Leukocytosis slightly improved today. KUB yesterday reassuring, showing improvement. She has been getting PPN. Will have picc for TPN later today. Today she is continues to seem less responsive, possibly confused, but might just be tired. Has been passing bowel movements consistently over the past few days. Her abdomen is soft and benign, no distention. NG tube remains in place, will trial clamping today. Continue PPN, picc line today one placed can start TPN, nutrition input appreciated Continue to monitor for worsening anemia, electrolyte imbalances NG clamp trial, if less than 100 cc after 4 hrs then can remove Continue PPI Serial abdominal exams <Jose Killian PA-C - Last Filed: 05/26/25 08:39> Time Spent With Patient Time: Total time managing care of this patient today ____ minutes. <Jose Killian PA-C - Last Filed: 05/26/25 08:39> Quality Stroke Does the patient have a stroke diagnosis?: No <Jose Killian PA-C - Last Filed: 05/26/25 08:39> VTE Prior VTE?: No <Jose Killian PA-C - Last Filed: 05/26/25 08:39> VTE Risk Level:: Surgical - low <Jose Killian PA-C - Last Filed: 05/26/25 08:39> VTE Device Contraindication: N/A - Device Ordered <Jose Killian PA-C - Last Filed: 05/26/25 08:39> VTE Drug Contraindication: N/A - Med Ordered <Jose Killian PA-C - Last Filed: 05/26/25 08:39>
--- NOTE | 2025-05-26 09:27 | P.PNIM_ITS ---
Subjective Subjective Date of Service: 05/26/25 Interval History: Patient is seen and examined with endocrinology teacher a nurse present. Patient is able to answer questions appropriately. Patient has been NPO, NG tube is clamped at this time. She denies any nausea, vomiting, abdominal pain. Her abdomen is soft and nontender, no pain with palpation. Her blood pressures have been elevated otherwise vitals have been stable. She has been afebrile. She denies any shortness of breath, chest pain, abdominal pain. She has TPN running. She is scheduled to go for a PICC line however with the NG tube being clamped in the possibility of advancing her diet we will hold off on a PICC line for now. Patient has had 4 large bowel movements yesterday, no bowel movements today, she has been up to void. She denies any pain or discomfort. Review of Systems Denies any shortness of breath, chest pain, headaches, abdominal pain or discomfort, no nausea, vomiting or diarrhea. Denies Chills, body aches, muscle aches, or fever. Physical Exam 2 Exam: Exam: CONST: Alert and oriented, in NAD. Well nourished. Awake and alert, answering questions. HEENT: Normocephalic, atraumatic, MMM, Eyes clear RESP: Lungs clear, RRR even and regular HEART:,RRR, S1, S2. No edema, no calf tenderness. GI:Abdomen Soft NT, ND. + BS times four. Obese abdomen. No pain with palpation. :Deferred SKIN: Warm dry and intact, no visible lesions or rashes. IV insertion site without redness or pain. NEURO:CN II-XII Intact bilaterally, Sensation intact. Speech clear. PSYCH: Flat affect Vital Signs: Vital Signs: Last Vital Signs Temp 98.2 F 05/26/25 07:38 Pulse 72 05/26/25 07:38 Resp 20 05/26/25 07:38 BP 156/78 H 05/26/25 07:38 Pulse Ox 97 05/26/25 07:38 O2 Del Method Room Air 05/26/25 07:38 O2 Flow Rate 1 05/21/25 03:08 BMI result Body Mass Index 35.6 Objective Data Active Medications Benzocaine (Throat Lozenge, Medicated Lozenge) 1 lozenge MUCOUS MEM Q2H PRN PRN Reason: Sore Throat Last Admin: 05/23/25 00:14 Dose: 1 lozenge Documented By: LUZ Calcium Carbonate (Calcium Carbonate 750 Mg Tab.Chew) 750 mg PO Q4H PRN PRN Reason: Heartburn Ceftriaxone Sodium (Ceftriaxone Sodium 1 Gm Vial) 1 gm IVPUSH Q24H [facility] Last Admin: 05/25/25 16:39 Dose: 1 gm Documented By: WANDY Enoxaparin Sodium (Enoxaparin Sodium 40 Mg/0.4 Ml Syringe) 40 mg SUBCUT Q24H [facility] On Hold: 05/24/25 01:09 Last Admin: 05/23/25 12:43 Dose: 40 mg Documented By: CARLOS Dextrose/Sodium Chloride (D5ns) 1,000 mls @ 80 mls/hr IVCONT .[id number] [facility] Last Admin: 05/26/25 04:46 Dose: 80 mls/hr Documented By: NELSON Nutrition (Parenteral) (Parenteral Nutrition) 1,680 mls @ 70 mls/hr IV .Q24H [facility]; Protocol Stop: 05/26/25 20:59 Last Admin: 05/25/25 22:27 Dose: 70 mls/hr Documented By: NELSON Magnesium Hydroxide (Milk Of Magnesia 30 Ml Oral.Susp) 30 ml PO DAILY PRN PRN Reason: Constipation Melatonin (Melatonin 3 Mg Tablet) 6 mg PO BEDTIME PRN PRN Reason: Insomnia Ondansetron HCl (Ondansetron Hcl 4 Mg/2 Ml Vial) 4 mg IVPUSH Q6H PRN PRN Reason: Nausea and Vomiting Last Admin: 05/23/25 08:32 Dose: 4 mg Documented By: CARLOS Pantoprazole Sodium (Pantoprazole Sodium 40 Mg/10 Ml Vial) 40 mg IVPUSH BID@0630,1630 [facility] Last Admin: 05/26/25 06:30 Dose: 40 mg Documented By: NELSON Pharmacy Consult (Consult Rx Parenteral Nutrition Ordering) 1 each MISCELLANE DAILY PRN PRN Reason: Consult order Sodium Chloride (0.9 % Sodium Chloride Flush 3 Ml Syringe) 3 ml IVFLUSH QSHIFT [facility] Last Admin: 05/26/25 00:50 Dose: 3 ml Documented By: NELSON Labs 05/26/25 06:05 05/26/25 06:05 Labs: Laboratory Results - last 24 hr 05/26/25 05/26/25 00:49 06:05 MCV 78.3 L MCH 25.5 L MCHC 32.5 RDW 20.5 H Plt Count 358 MPV 10.0 Immature Gran % (Auto) 1.0 H Neut % (Auto) 74.1 H Lymph % (Auto) 14.9 L [place] % (Auto) 9.5 Eos % (Auto) 0.3 Baso % (Auto) 0.2 Lymph # (Auto) 2.1 [place] # (Auto) 1.4 H Eos # (Auto) 0.1 Baso # (Auto) 0.0 Abs Immat Gran (auto) 0.15 H Absolute Neuts (auto) 10.6 H Absolute Nucleated RBC 0.020 H Nucleated RBC % (auto) 0.1 Anion Gap 12 Estim Creat Clear Calc 117.8 Estimated GFR > 60 POC Glucose 190 H Random Glucose 174 H Calcium 9.1 Phosphorus 3.3 Magnesium 1.9 Total Bilirubin 0.3 AST 15 ALT 9 Alkaline Phosphatase 82 Total Protein 6.5 Albumin 3.5 Microbiology Microbiology Results: Microbiology 05/20/25 16:19 Blood Culture - Final Blood - Venous No growth after 5 days. 05/20/25 16:19 Blood Culture - Final Blood - Venous No growth after 5 days. Assessment and Plan (1) Abdominal distension: Status: Resolved Plan 59 year old mohawk speaking women presented to the ED with abdominal pain. She was found to have sigmoid volvulus in his status post flexible sigmoidoscopy with identification a transition point in the colon was detorsed. Course complicated by UTI Sigmoid volvulus Treatment per surgery team Currently with clamped NG tube, per surgery KUB improved. Patient is passing stool and flatus, no nausea vomiting or diarrhea currently with NG tube clamped TPN continuing, plan for PICC line. We will hold for now pending possible trial of p.o.. Urinary tract infection Patient with a positive UTI greater than 100,000 E coli. Resistant to ceftriaxone Ertpenem Q 8 hours for 7 days ID consulted Throat pain Likely due to presence of NG tube. Status post upper GI bleed/acute on chronic anemia Patient's home iron is on hold Status post 3 units of PRBC H&H is stable 33.2/10.8. Follow labs Continue IV PPI b.i.d. DM2 Continue SS, ADA diet Metformin on hold HTN Resume lisinopril and diltiazem Schizoaffective disorder bipolar type/ Mild cognitive impairment/Chronic mental illness and/or delirium Patient last received her Clozaril on May 17. Inpatient psychiatric consultation for resumption of Clozaril Abrupt withdrawal places patient at risk for catatonia, psychiatric decompensation, autonomic dysfunction Resume Prozac and Clonazepam. GERD Continue PPI DVT prophylaxis with sequentials Full code Quality Stroke Does the patient have a stroke diagnosis?: No VTE Prior VTE?: No VTE Risk Level:: Surgical - moderate VTE Device Contraindication: N/A - Device Ordered VTE Drug Contraindication: Treatment Not Tolerated
--- NOTE | 2025-05-26 11:42 | MHC.CLN ---
F/U REMAINS NPO CONTINUES WITH BM TRIAL OF CLAMPING NGT POSSIBLE TODAY REVIEWED LABS CONTINUE PPN AT MAX GOAL RATE 70ML/HR WITH 52G LIPIDS PROVIDES 1377 TOTAL KCALS (23KCALS/KG), 168G DEXTROSE, 71G PROTEIN (1.2G/KG) REPLETE LYTES NEEDED
[2025-05-26] MEDS: dilTIAZem HCL CD 120 MG CAP.ER.DEG PO (12:06)
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
--- NOTE | 2025-05-26 15:07 | PM.EVENT ---
Event Note Date of Service: 05/26/25 Event Note: Seen on afternoon rounds Continues to have tremors Answers questions NG tube had been clamped with no significant residuals Okay to DC NG-tube She has been passing good amounts of flatus as well as BMs Abdomen is soft, nontender, very benign Clinically not obstructed Keep on small sips for now Appreciate hospitalist follow up - she has significant schizoaffective disorder, and UTI currently Time Spent With Patient Time: Total time managing care of this patient today ____ minutes.
[2025-05-26] MEDS: Parenteral Nutrition 1,680 ML 70 ML IV (20:13)
[2025-05-27] VITALS (8 sets, daily range): BP systolic 149–180; BP diastolic 70–83; PULSE 57–77; RESP 16–24; TEMP 36.5–37.6; O2SAT 92–96
[2025-05-27] MEDS: Divalproex Sodium Sprinkles 125 MG CAP.DR.SPR 750 MG PO ×3 (00:07→20:10)
[2025-05-27 06:56] LABS: MANUAL DIFF FLAG NO
[2025-05-27 06:59] LABS: Hematocrit 32.6 % (37.0-47.0); Hemoglobin 10.6 g/dl (12.0-16.0); Imm Gran Abs Auto 0.17 X10*3/uL (0.00-0.03); Imm Gran Pct Auto 1.2 % (0.0-0.4); Lymphocytes Absolute Auto 2.1 X10*3/uL (1.2-4.9); Mean Corpuscular HGB Conc 32.5 g/dl (31.0-35.0); Mean Corpuscular Hemoglobin 25.5 pg (27.0-33.0); Mean Corpuscular Volume 78.6 fL (80.0-98.0); NRBC Abs Auto 0.000 X10*3/uL (0.0-0.012); NRBC Pct Auto 0.0 /100WBC (0.0-0.2); Platelet Count 336 X10*3/uL (160-400); Red Blood Count 4.15 X10*6/uL (4.20-5.50); White Blood Count 14.1 X10*3/uL (4.8-10.8)
[2025-05-27 07:16] LABS: Alanine Aminotransferase 12 U/L (0-31); Albumin Level 3.5 g/dL (3.5-5.0); Alkaline Phosphatase 75 U/L (39-117); Anion Gap 13 (12-20); Aspartate Amino Transferase 16 U/L (5-31); Blood Urea Nitrogen 11 mg/dL (9-16); Calcium 9.0 mg/dL (8.4-10.2); Carbon Dioxide 24 mmol/L (22-29); Chloride 108 mmol/L (96-108); Creatinine Clr Calc Pharmacy 111.3; Estimated Glomerular Filt Rate > 60; Magnesium 1.9 mg/dL (1.6-2.6); Potassium 4.6 mmol/L (3.3-5.1); Sodium 140 mmol/L (135-145); Total Protein 6.3 g/dL (6.5-8.0)
--- NOTE | 2025-05-27 08:17 | P.PNGS_ITS ---
Subjective Subjective Date of Service: 05/27/25 <Jose Killian PA-C - Last Filed: 05/27/25 10:07> 05/27/25 <Juan lAberto Escobar MD - Last Filed: 05/27/25 14:27> Interval history: more alert today. remains tremulous. she feels better today, pain improving, continues to have some nausea. Passing gas, multiple bowel movements. She reports that when she urinated she noticed a good amount of blood. Denies pain with urination. <Jose Killian PA-C - Last Filed: 05/27/25 10:07> Physical Exam 2 Vital Signs: Vital Signs: Last Vital Signs Temp 99.6 F 05/27/25 03:51 Pulse 66 05/27/25 03:51 Resp 20 05/27/25 03:51 BP 157/71 H 05/27/25 03:51 Pulse Ox 95 05/27/25 03:51 O2 Del Method Room Air 05/27/25 03:51 O2 Flow Rate 1 05/21/25 03:08 BMI result Body Mass Index 35.6 <Jose Killian PA-C - Last Filed: 05/27/25 10:07> Const: Other: tremulous <Jose Killian PA-C - Last Filed: 05/27/25 10:07> General: comfortable, no acute distress and alert <Jose Killian PA-C - Last Filed: 05/27/25 10:07> Resp: Effort & Inspection: normal respiratory effort and able to speak in complete sentences <Jose Killian PA-C - Last Filed: 05/27/25 10:07> GI: Inspection: Yes distended (mild) <Jose Killian PA-C - Last Filed: 05/27/25 10:07> Palpation (GI): Soft to palpation, Tenderness to palpation present (GI) and no guarding <ZECHARIAH Goldman Last Filed: 05/27/25 10:07> Objective Data Active Medications Benzocaine (Throat Lozenge, Medicated Lozenge) 1 lozenge MUCOUS MEM Q2H PRN PRN Reason: Sore Throat Last Admin: 05/23/25 00:14 Dose: 1 lozenge Documented By: LUZ Calcium Carbonate (Calcium Carbonate 750 Mg Tab.Chew) 750 mg PO Q4H PRN PRN Reason: Heartburn Clonazepam (Clonazepam 0.5 Mg Tablet) 0.5 mg PO DAILY COUNTS INCLUDE 234 BEDS AT THE [facility] Last Admin: 05/26/25 12:06 Dose: 0.5 mg Documented By: BRITTANY Clonazepam (Clonazepam 1 Mg Tablet) 1 mg PO BEDTIME LAXMI Last Admin: 05/26/25 20:15 Dose: 1 mg Documented By: ROBIN Clozapine (Clozapine 25 Mg Tablet) 25 mg PO BEDTIME LAXMI Last Admin: 05/26/25 20:15 Dose: 25 mg Documented By: ROBIN Diltiazem HCl (Diltiazem Hcl Cd 120 Mg Cap.Er.Deg) 120 mg PO DAILY LAXMI; Protocol Last Admin: 05/26/25 12:06 Dose: 120 mg Documented By: BRITTANY Divalproex Sodium (Divalproex Sodium Sprinkles 125 Mg Cap.Dr.Spr) 750 mg PO BID COUNTS INCLUDE 234 BEDS AT THE [facility] Last Admin: 05/27/25 00:07 Dose: 750 mg Documented By: ROBIN Enoxaparin Sodium (Enoxaparin Sodium 40 Mg/0.4 Ml Syringe) 40 mg SUBCUT Q24H LAXMI On Hold: 05/24/25 01:09 Last Admin: 05/23/25 12:43 Dose: 40 mg Documented By: CARLOS Fluoxetine HCl (Fluoxetine Hcl 10 Mg Capsule) 30 mg PO DAILY COUNTS INCLUDE 234 BEDS AT THE [facility] Last Admin: 05/26/25 12:06 Dose: 30 mg Documented By: BRITTANY Hydralazine HCl (Hydralazine Hcl 20 Mg/Ml Vial) 5 mg IVPUSH Q6H PRN; Protocol PRN Reason: SBP > 180 Last Admin: 05/26/25 23:34 Dose: 5 mg Documented By: ROBIN Nutrition (Parenteral) (Parenteral Nutrition) 1,680 mls @ 70 mls/hr IV .Q24H LAXMI; Protocol Stop: 05/27/25 20:59 Last Admin: 05/26/25 20:13 Dose: 70 mls/hr Documented By: ROBIN Nutrition (Parenteral) (Parenteral Nutrition) 1,680 mls @ 70 mls/hr IV .Q24H LAXMI; Protocol Stop: 05/28/25 20:59 Lisinopril (Lisinopril 10 Mg Tablet) 10 mg PO DAILY LAXMI; Protocol Last Admin: 05/26/25 12:06 Dose: 10 mg Documented By: BRITTANY Magnesium Hydroxide (Milk Of Magnesia 30 Ml Oral.Susp) 30 ml PO DAILY PRN PRN Reason: Constipation Melatonin (Melatonin 3 Mg Tablet) 6 mg PO BEDTIME PRN PRN Reason: Insomnia Meropenem (Meropenem 1 Gm Vial) 1 gm IVPUSH Q8H COUNTS INCLUDE 234 BEDS AT THE [facility] Stop: 06/02/25 10:59 Last Admin: 05/27/25 03:47 Dose: 1 gm Documented By: ROBIN Ondansetron HCl (Ondansetron Hcl 4 Mg/2 Ml Vial) 4 mg IVPUSH Q6H PRN PRN Reason: Nausea and Vomiting Last Admin: 05/27/25 00:15 Dose: 4 mg Documented By: ROBIN Pantoprazole Sodium (Pantoprazole Sodium 40 Mg/10 Ml Vial) 40 mg IVPUSH BID@0630,1630 COUNTS INCLUDE 234 BEDS AT THE [facility] Last Admin: 05/27/25 05:44 Dose: 40 mg Documented By: ROBIN Pharmacy Consult (Consult Rx Parenteral Nutrition Ordering) 1 each MISCELLANE DAILY PRN PRN Reason: Consult order Sodium Chloride (0.9 % Sodium Chloride Flush 3 Ml Syringe) 3 ml IVFLUSH QSHIFT COUNTS INCLUDE 234 BEDS AT THE [facility] Last Admin: 05/26/25 20:14 Dose: 3 ml Documented By: ROBIN <Jose Killian PA-C - Last Filed: 05/27/25 10:07> Labs CBC & Chem 7: 05/27/25 06:49 05/27/25 06:49 <Jose Killian PA-C - Last Filed: 05/27/25 10:07> Labs: Laboratory Results - last 24 hr 05/27/25 06:49 MCV 78.6 L MCH 25.5 L MCHC 32.5 RDW 21.3 H Plt Count 336 MPV 10.2 Immature Gran % (Auto) 1.2 H Neut % (Auto) 73.7 H Lymph % (Auto) 15.1 L [place] % (Auto) 8.7 Eos % (Auto) 1.0 Baso % (Auto) 0.3 Lymph # (Auto) 2.1 [place] # (Auto) 1.2 Eos # (Auto) 0.1 Baso # (Auto) 0.0 Abs Immat Gran (auto) 0.17 H Absolute Neuts (auto) 10.4 H Absolute Nucleated RBC 0.000 Nucleated RBC % (auto) 0.0 Anion Gap 13 Estim Creat Clear Calc 111.3 Estimated GFR > 60 Random Glucose 150 H Calcium 9.0 Phosphorus 4.1 Magnesium 1.9 Total Bilirubin 0.3 AST 16 ALT 12 Alkaline Phosphatase 75 Total Protein 6.3 L Albumin 3.5 <Jose Killian PA-C - Last Filed: 05/27/25 10:07> Procedures Date of Service Date of Service: 05/27/25 <Jose Killian PA-C - Last Filed: 05/27/25 10:07> 05/27/25 <Juan Alberto Escobar MD - Last Filed: 05/27/25 14:27> Progress Note: A&P Assessment and plan (1) Sigmoid volvulus: Status: Acute <Jose Killian PA-C - Last Filed: 05/27/25 10:07> Assessment and Plan: Abdomen remained soft and benign She appears to be comfortable this morning She has had multiple bowel movements We will try on clear liquids today She looks well overall Has multiple other medical problems Seen and examined independently <Juan Alberto Escobar MD - Last Filed: 05/27/25 14:27> Assessment and Plan: 59 year old female admitted for sigmoid volvulous s/p felx sig, with identification of the transition point, was able to pass this point and detorse the colon. Patient was seen by hospitalist, ceftriaxone now changed to Mirapenam for cephalosporin resistant UTI. Psych also now following, slowly restarting her medications. Per psych recommendations when restarting clozapine, patient will need aggressive bowel regimen to prevent recurrence of obstruction. NG tube was removed yesterday, patient seems to be tolerating this. She is more alert today. States abdominal pain improving, has some mild nausea. Has been passing bowel movements consistently over the past few days. She is complaining of blood in her urine. This was present on admission, discussed with the hospitalist to thinks may be due to UTI, possible vaginal bleeding. H&H stable. There remains mild leukocytosis, 14.1. Her abdomen remains soft relatively benign. Some mild tenderness, mild distention improved overall. She has been getting PPN. We will trial her on clear liquid diet today. Will hold off on picc for TPN. Trial of clear liquid diets. Continue PPN, hold off on PICC line as we are trialing diet Continue to monitor for worsening anemia, electrolyte imbalances Continue PPI Serial abdominal exams continue IV abx for UTI <Jose Killian PA-C - Last Filed: 05/27/25 10:07> Time Spent With Patient Time: Total time managing care of this patient today ____ minutes. <Jose Killian PA-C - Last Filed: 05/27/25 10:07> Quality Stroke Does the patient have a stroke diagnosis?: No <Jose Killian PA-C - Last Filed: 05/27/25 10:07> VTE Prior VTE?: No <Jose Killian PA-C - Last Filed: 05/27/25 10:07> VTE Risk Level:: Surgical - moderate <Jose Killian PA-C - Last Filed: 05/27/25 10:07> VTE Device Contraindication: N/A - Device Ordered <Jose Killian PA-C - Last Filed: 05/27/25 10:07> VTE Drug Contraindication: Treatment Not Tolerated <Jose Killian PA-C - Last Filed: 05/27/25 10:07>
--- NOTE | 2025-05-27 08:23 | HO.PM.IMPN ---
Subjective Subjective Date of Service: 05/27/25 Interval History: Patient was seen and examined with assist of relay worker. Patient is more awake and alert, continues to be tremulous. Was seen by Psychiatry recommendations appreciated. Awaiting ID consult. Patient reported that she had hematuria however nursing reports that she voided clear yellow urine without any hematuria. She is taking small sips of clears and jello no vomiting however she is reporting continued nausea. Nursing reported a small jelly like stool this morning. Patient is passing flatus. Out of bed with standby assist. Her H&H is stable. No evidence of bleeding. She denies any abdominal pain, abdomen soft nontender. Review of Systems Denies any shortness of breath, chest pain, palpitations, dizziness, lightheadedness, headaches, dysuria, abdominal pain or discomfort, nausea, vomiting or diarrhea. Denies Chills, body aches, muscle aches, fatigue or weight loss. Physical Exam Exam: Exam: CONST: Alert and oriented, in NAD. Well nourished. Awake and alert, answering questions. HEENT: Normocephalic, atraumatic, MMM, Eyes clear RESP: Lungs clear, RRR even and regular HEART:,RRR, S1, S2. No edema, no calf tenderness. GI:Abdomen Soft NT, ND. + BS times four. Obese abdomen. No pain with palpation. :Deferred SKIN: Warm dry and intact, no visible lesions or rashes. IV insertion site without redness or pain. NEURO:CN II-XII Intact bilaterally, Sensation intact. Speech clear. Tremulous PSYCH: Flat affect Vital Signs: Vital Signs: Last Vital Signs Temp 99.6 F 05/27/25 03:51 Pulse 66 05/27/25 03:51 Resp 20 05/27/25 03:51 BP 157/71 H 05/27/25 03:51 Pulse Ox 95 05/27/25 03:51 O2 Del Method Room Air 05/27/25 03:51 O2 Flow Rate 1 05/21/25 03:08 BMI result Body Mass Index 35.6 Objective Data Active Medications Benzocaine (Throat Lozenge, Medicated Lozenge) 1 lozenge MUCOUS MEM Q2H PRN PRN Reason: Sore Throat Last Admin: 05/23/25 00:14 Dose: 1 lozenge Documented By: LUZ Calcium Carbonate (Calcium Carbonate 750 Mg Tab.Chew) 750 mg PO Q4H PRN PRN Reason: Heartburn Clonazepam (Clonazepam 0.5 Mg Tablet) 0.5 mg PO DAILY [facility] Last Admin: 05/26/25 12:06 Dose: 0.5 mg Documented By: BRITTANY Clonazepam (Clonazepam 1 Mg Tablet) 1 mg PO BEDTIME LAXMI Last Admin: 05/26/25 20:15 Dose: 1 mg Documented By: ROBIN Clozapine (Clozapine 25 Mg Tablet) 25 mg PO BEDTIME LAXMI Last Admin: 05/26/25 20:15 Dose: 25 mg Documented By: ROBIN Diltiazem HCl (Diltiazem Hcl Cd 120 Mg Cap.Er.Deg) 120 mg PO DAILY [facility]; Protocol Last Admin: 05/26/25 12:06 Dose: 120 mg Documented By: BRITTANY Divalproex Sodium (Divalproex Sodium Sprinkles 125 Mg Cap.Dr.Spr) 750 mg PO BID [facility] Last Admin: 05/27/25 00:07 Dose: 750 mg Documented By: ROBIN Docusate Sodium (Docusate Sodium 100 Mg Capsule) 100 mg PO BID [facility] Enoxaparin Sodium (Enoxaparin Sodium 40 Mg/0.4 Ml Syringe) 40 mg SUBCUT Q24H [facility] On Hold: 05/24/25 01:09 Last Admin: 05/23/25 12:43 Dose: 40 mg Documented By: CARLOS Fluoxetine HCl (Fluoxetine Hcl 10 Mg Capsule) 30 mg PO DAILY [facility] Last Admin: 05/26/25 12:06 Dose: 30 mg Documented By: BRITTANY Hydralazine HCl (Hydralazine Hcl 20 Mg/Ml Vial) 5 mg IVPUSH Q6H PRN; Protocol PRN Reason: SBP > 180 Last Admin: 05/26/25 23:34 Dose: 5 mg Documented By: ROBIN Nutrition (Parenteral) (Parenteral Nutrition) 1,680 mls @ 70 mls/hr IV .Q24H LAXMI; Protocol Stop: 05/27/25 20:59 Last Admin: 05/26/25 20:13 Dose: 70 mls/hr Documented By: ROBIN Nutrition (Parenteral) (Parenteral Nutrition) 1,680 mls @ 70 mls/hr IV .Q24H [facility]XMI; Protocol Stop: 05/28/25 20:59 Lisinopril (Lisinopril 10 Mg Tablet) 10 mg PO DAILY [facility]; Protocol Last Admin: 05/26/25 12:06 Dose: 10 mg Documented By: BRITTANY Magnesium Hydroxide (Milk Of Magnesia 30 Ml Oral.Susp) 30 ml PO DAILY PRN PRN Reason: Constipation Melatonin (Melatonin 3 Mg Tablet) 6 mg PO BEDTIME PRN PRN Reason: Insomnia Meropenem (Meropenem 1 Gm Vial) 1 gm IVPUSH Q8H [facility] Stop: 06/02/25 10:59 Last Admin: 05/27/25 03:47 Dose: 1 gm Documented By: ROBIN Ondansetron HCl (Ondansetron Hcl 4 Mg/2 Ml Vial) 4 mg IVPUSH Q6H PRN PRN Reason: Nausea and Vomiting Last Admin: 05/27/25 00:15 Dose: 4 mg Documented By: ROBIN Pantoprazole Sodium (Pantoprazole Sodium 40 Mg/10 Ml Vial) 40 mg IVPUSH BID@0630,1630 [facility] Last Admin: 05/27/25 05:44 Dose: 40 mg Documented By: ROBIN Pharmacy Consult (Consult Rx Parenteral Nutrition Ordering) 1 each MISCELLANE DAILY PRN PRN Reason: Consult order Polyethylene Glycol (Polyethylene Glycol 3350 17 Gm Powd.Pack) 17 gm PO DAILY [facility] Sodium Chloride (0.9 % Sodium Chloride Flush 3 Ml Syringe) 3 ml IVFLUSH QSHIFT [facility] Last Admin: 05/26/25 20:14 Dose: 3 ml Documented By: ROBIN Labs 05/27/25 06:49 05/27/25 06:49 Labs: Laboratory Results - last 24 hr 05/27/25 06:49 MCV 78.6 L MCH 25.5 L MCHC 32.5 RDW 21.3 H Plt Count 336 MPV 10.2 Immature Gran % (Auto) 1.2 H Neut % (Auto) 73.7 H Lymph % (Auto) 15.1 L [place] % (Auto) 8.7 Eos % (Auto) 1.0 Baso % (Auto) 0.3 Lymph # (Auto) 2.1 [place] # (Auto) 1.2 Eos # (Auto) 0.1 Baso # (Auto) 0.0 Abs Immat Gran (auto) 0.17 H Absolute Neuts (auto) 10.4 H Absolute Nucleated RBC 0.000 Nucleated RBC % (auto) 0.0 Anion Gap 13 Estim Creat Clear Calc 111.3 Estimated GFR > 60 Random Glucose 150 H Calcium 9.0 Phosphorus 4.1 Magnesium 1.9 Total Bilirubin 0.3 AST 16 ALT 12 Alkaline Phosphatase 75 Total Protein 6.3 L Albumin 3.5 Assessment and Plan (1) Abdominal distension: Status: Resolved Plan 59 year old Stateless speaking women presented to the ED with abdominal pain. She was found to have sigmoid volvulus , status post flexible sigmoidoscopy with identification a transition point in the colon was detorsed. Course complicated by UTI. Sigmoid volvulus Treatment per surgery team NG tube removed, patient taking sips of clear Patient is passing stool and flatus. Occasional nausea Plan for TPN per surgery team Encourage out of bed Urinary tract infection Patient with a positive UTI greater than 100,000 E coli. Resistant to ceftriaxone Ertapenem Q 8 hours for 7 days. ID consulted Throat pain Resolved with G-tube removal Status post upper GI bleed/acute on chronic anemia/GERD Home Iron on hold Status post 3 units of PRBC H&H is stable 32.6/10.6. Follow labs Continue IV PPI b.i.d. DM2 Continue SS, ADA diet Metformin on hold HTN Resume lisinopril and diltiazem Schizoaffective disorder bipolar type/ Mild cognitive impairment/Chronic mental illness and/or delirium Patient last received her Clozaril on May 17. Inpatient psychiatric consultation recommendations appreciated Resuming clozaril at increased tapering dose. Monitor for psychiatric decompensation. Resume Prozac and Clonazepam and depakote. Avoid constipation DVT prophylaxis with sequentials Full code Quality Stroke Does the patient have a stroke diagnosis?: No VTE Prior VTE?: No VTE Risk Level:: Surgical - moderate VTE Device Contraindication: N/A - Device Ordered VTE Drug Contraindication: Treatment Not Tolerated
[2025-05-27] MEDS: dilTIAZem HCL CD 120 MG CAP.ER.DEG PO (08:39)
--- NOTE | 2025-05-27 09:14 | MHC.CLN ---
F/U DIET ADVANCED TO C/L NGT D/C PER 05/26 CONTINUES WITH BM HOLDING PICC LINE PLACEMENT R/T ADVANCING DIET REVIEWED LABS CONTINUE PPN AT MAX GOAL RATE 70ML/HR WITH 52G LIPIDS PROVIDES 1377 TOTAL KCALS (23KCALS/KG), 168G DEXTROSE, 71G PROTEIN (1.2G/KG) REPLETE LYTES NEEDED MONITOR PO INTAKE CLOSELY
--- NOTE | 2025-05-27 14:13 | MHC.CM.PN ---
Pt. improving, trial clear liquid diet. DCP: home, resume HYPERBARIC TECHNOLOGIST services.
--- NOTE | 2025-05-27 14:26 | PM.EVENT ---
Event Note Date of Service: 05/27/25 Event Note: Seen on afternoon rounds Sitting on recliner Appears comfortable Tolerating clear liquids so far Has had bowel movements this morning Plan to advance diet tomorrow She is also being followed by the hospitalist service - appreciate input Patient has refused surgical intervention for her history of volvulus Time Spent With Patient Time: Total time managing care of this patient today ____ minutes.
[2025-05-27] MEDS: 0.9 % Sodium Chloride Flush 3 ML SYRINGE IVFLUSH (15:27)
--- NOTE | 2025-05-27 15:50 | W.PM.IDCN ---
History of Present Illness Data of Consult Service Date: 05/27/25 Requesting physician: Ashleigh Barrera Primary Care Provider: Brenna Brower MD HPI Reason for consult: abdominal pain,possible UTI She presents with abdominal discomfort and distention. She has no fever or chills at this time. She has seen Surgery and volvulus colon concern and has been followed by them and received Merem Review of Systems Review of Systems: Yes all other systems are reviewed and are negative PMFSH Past Medical History Medical History Hepatic steatosis Anemia Diabetes Morbid obesity due to excess calories Anxiety Chronic mental illness COPD (chronic obstructive pulmonary disease) Hyperlipidemia Schizophrenia Asthma Family History Family History Father Throat cancer Mother CVA (cerebral vascular accident) Brother Drug overdose Sister No problems noted. Sister No problems noted. Son No problems noted. Son No problems noted. Family history: reviewed and not pertinent Surgical History Surgical History Hx of colonoscopy History of tubal ligation H/O right knee surgery History of appendectomy Social History 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: Other Household Members Other:: Lanny Soto, Inocencio Soto, - foster parents Housing: House Are you a primary child care attendant to a significant other at home: No Do you presently have visiting nurse or other home services: Yes (lives with caregiver multimedia technician) Alcohol intake: never Comment: pt moves well s sba Patient Tobacco Use Status: Former Tobacco user Tobacco use type: Cigarette Cigarettes Per Day: 10 e-Cigarette/Vaping Use: Never Used Second Hand Smoke Exposure: Yes Advance Directives Date on File: 10/29/24 service: No Current occupational status: disabled Sexual orientation: Straight/Heterosexual Meds Allergies Allergy/AdvReac Type Severity Reaction Status Date / Time diazepam (From Valium) Allergy Severe Vomiting Verified 05/18/25 21:27 haloperidol (From Haldol) Allergy Unknown Unknown Verified 05/18/25 21:27 Penicillins Allergy Unknown Unknown Verified 05/18/25 21:27 risperidone (From Risperdal) Allergy Unknown Unknown Verified 05/18/25 21:27 aspirin (Aspirin) AdvReac Intermediate Vomiting Verified 05/18/25 21:27 trazodone (TRAZODONE) AdvReac Intermediate NAUSEA & Verified 05/18/25 21:27 VOMITING Active Medications: Current Medications Benzocaine (Throat Lozenge, Medicated Lozenge) 1 lozenge MUCOUS MEM Q2H PRN PRN Reason: Sore Throat Last Admin: 05/23/25 00:14 Dose: 1 lozenge Calcium Carbonate (Calcium Carbonate 750 Mg Tab.Chew) 750 mg PO Q4H PRN PRN Reason: Heartburn Clonazepam (Clonazepam 0.5 Mg Tablet) 0.5 mg PO DAILY [facility] Last Admin: 05/27/25 08:41 Dose: 0.5 mg Clonazepam (Clonazepam 1 Mg Tablet) 1 mg PO BEDTIME LAXMI Last Admin: 05/26/25 20:15 Dose: 1 mg Clozapine (Clozapine 25 Mg Tablet) 50 mg PO BEDTIME LAXMI; Taper Stop: 06/06/25 20:59 Clozapine (Clozapine 100 Mg Tablet) 300 mg PO BEDTIME LAXMI Diltiazem HCl (Diltiazem Hcl Cd 120 Mg Cap.Er.Deg) 120 mg PO DAILY [facility]; Protocol Last Admin: 05/27/25 08:39 Dose: 120 mg Divalproex Sodium (Divalproex Sodium Sprinkles 125 Mg Cap.Dr.Spr) 750 mg PO BID [facility] Last Admin: 05/27/25 08:39 Dose: 750 mg Docusate Sodium (Docusate Sodium 100 Mg Capsule) 100 mg PO BID [facility] Last Admin: 05/27/25 08:40 Dose: 100 mg Enoxaparin Sodium (Enoxaparin Sodium 40 Mg/0.4 Ml Syringe) 40 mg SUBCUT Q24H [facility] On Hold: 05/24/25 01:09 Last Admin: 05/23/25 12:43 Dose: 40 mg Fluoxetine HCl (Fluoxetine Hcl 10 Mg Capsule) 30 mg PO DAILY [facility] On Hold: 05/27/25 09:44 Last Admin: 05/27/25 08:40 Dose: 30 mg Hydralazine HCl (Hydralazine Hcl 20 Mg/Ml Vial) 5 mg IVPUSH Q6H PRN; Protocol PRN Reason: SBP > 180 Last Admin: 05/26/25 23:34 Dose: 5 mg Nutrition (Parenteral) (Parenteral Nutrition) 1,680 mls @ 70 mls/hr IV .Q24H [facility]; Protocol Stop: 05/27/25 20:59 Last Admin: 05/26/25 20:13 Dose: 70 mls/hr Nutrition (Parenteral) (Parenteral Nutrition) 1,680 mls @ 70 mls/hr IV .Q24H [facility]; Protocol Stop: 05/28/25 20:59 Lactulose (Lactulose 20 Gm/30 Ml Solution) 30 gm PO DAILY [facility] Last Admin: 05/27/25 08:38 Dose: 30 gm Lisinopril (Lisinopril 10 Mg Tablet) 10 mg PO DAILY [facility]; Protocol Last Admin: 05/27/25 08:50 Dose: 10 mg Magnesium Hydroxide (Milk Of Magnesia 30 Ml Oral.Susp) 30 ml PO DAILY PRN PRN Reason: Constipation Melatonin (Melatonin 3 Mg Tablet) 6 mg PO BEDTIME PRN PRN Reason: Insomnia Meropenem (Meropenem 1 Gm Vial) 1 gm IVPUSH Q8H [facility] Stop: 06/02/25 10:59 Last Admin: 05/27/25 10:55 Dose: 1 gm Ondansetron HCl (Ondansetron Hcl 4 Mg/2 Ml Vial) 4 mg IVPUSH Q6H PRN PRN Reason: Nausea and Vomiting Last Admin: 05/27/25 09:39 Dose: 4 mg Pharmacy Consult (Consult Rx Parenteral Nutrition Ordering) 1 each MISCELLANE DAILY PRN PRN Reason: Consult order Polyethylene Glycol (Polyethylene Glycol 3350 17 Gm Powd.Pack) 17 gm PO DAILY [facility] Last Admin: 05/27/25 08:51 Dose: 17 gm Sodium Chloride (0.9 % Sodium Chloride Flush 3 Ml Syringe) 3 ml IVFLUSH QSHIFT [facility] Last Admin: 05/27/25 15:27 Dose: 3 ml Home Medications ?Medication ?Instructions ?Recorded ?Confirmed ?Last Taken ?Type sennosides 8.6 mg tablet (senna) 17.2 mg PO BEDTIME PRN constipation 12/13/22 05/19/25 05/17/25 History albuterol sulfate 90 mcg/actuation 2 puff inhalation Q4-6H PRN 06/18/23 05/19/25 Unknown History aerosol inhaler (Ventolin HFA) Shortness Of Breath Or Wheezing sucralfate 1 gram tablet 1 g PO TID 06/18/23 05/19/25 05/18/25 History tramadol 50 mg tablet 50 mg PO Q12H PRN Severe Pain 06/18/23 05/19/25 Unknown History (Scale Score 7-10) divalproex 500 mg tablet,extended 1,000 mg PO BEDTIME 10/01/23 05/19/25 05/17/25 History release 24 hr clonazepam 0.5 mg tablet 0.5 mg PO DAILY 03/29/24 05/19/25 05/18/25 History lisinopril 10 mg tablet 10 mg PO DAILY 03/29/24 05/19/25 05/18/25 History atorvastatin 40 mg tablet 40 mg PO BEDTIME 06/18/24 05/19/25 05/17/25 History omeprazole 20 mg capsule,delayed 20 mg PO BID@0630,1630 06/18/24 05/19/25 05/18/25 History release clozapine 100 mg tablet 300 mg PO BEDTIME 06/19/24 05/19/25 05/17/25 History divalproex 250 mg tablet,extended 250 mg PO BEDTIME 06/19/24 05/19/25 05/17/25 History release 24 hr docusate sodium 100 mg capsule 100 mg PO BID PRN Constipation 06/19/24 05/19/25 Unknown History loratadine 10 mg tablet 10 mg PO DAILY 06/19/24 05/19/25 05/18/25 History lactulose 10 gram/15 mL oral 45 ml PO DAILY 07/21/24 05/19/25 05/18/25 History solution albuterol sulfate 2.5 mg/3 mL 2.5 mg inhalation Q6H PRN wheezing 04/24/25 05/19/25 Unknown History (0.083 %) solution for nebulization diltiazem HCl 120 mg 120 mg PO DAILY 04/24/25 05/19/25 05/18/25 History capsule,extended release 12 hr ferrous sulfate 325 mg (65 mg 325 mg PO Q2D 04/24/25 05/19/25 05/17/25 History iron) tablet,delayed release fluoxetine 10 mg capsule 30 mg PO DAILY 04/24/25 05/19/25 05/18/25 History metformin 500 mg tablet,extended 500 mg PO BIDWM 04/24/25 05/19/25 05/18/25 History release 24 hr polyethylene glycol 3350 17 17 g PO TID PRN Constipation 04/24/25 05/19/25 Unknown History gram/dose oral powder (Miralax) Physical Exam Vital Signs: Vital Signs: Last Vital Signs Temp 97.9 F 05/27/25 11:57 Pulse 57 05/27/25 11:57 Resp 18 05/27/25 11:57 BP 163/70 H 05/27/25 11:57 Pulse Ox 93 05/27/25 11:57 O2 Del Method Room Air 05/27/25 11:57 O2 Flow Rate 1 05/21/25 03:08 BMI result Body Mass Index 35.6 Const: General: cooperative HEENT: Head: Yes normal to inspection Face and sinus: Yes normal facial exam Mouth: Normal oral and palatal mucosa present Teeth and gingiva: dentition normal Eyes: General: appearance normal, both eyes and all related structures Pupils: Equal, round and reactive pupils present Resp: Effort & Inspection: normal respiratory effort Cardio: Rate: regular rate Rhythm: regular rhythm GI: Other: mild distention Palpation (GI): Soft to palpation and nontender : General: Yes no CVA tenderness Back/Spine/Pelvis: Back: no CVA tenderness Skin: General skin exam: no rashes or lesions noted Neuro: General: moves all extremities Cranial nerves: Yes Equal, round and reactive pupils present Extrem: General: Yes normal to inspection Psych: Appearance: grossly normal Results Labs 05/27/25 06:49 05/27/25 06:49 Labs: Short CBC 05/27/25 Range/Units 06:49 WBC 14.1 H (4.8-10.8) X10*3/uL Hgb 10.6 L (12.0-16.0) g/dl Hct 32.6 L (37.0-47.0) % Plt Count 336 (160-400) X10*3/uL BMP 05/27/25 06:49 Sodium 140 Potassium 4.6 Chloride 108 Carbon Dioxide 24 BUN 11 Creatinine 0.54 Calcium 9.0 Liver Function 05/27/25 Range/Units 06:49 Total Bilirubin 0.3 (0.0-1.0) mg/dL AST 16 (5-31) U/L ALT 12 (0-31) U/L Alkaline Phosphatase 75 (39-117) U/L Albumin 3.5 (3.5-5.0) g/dL Microbiology Microbiology Results: Microbiology 05/20/25 16:19 Blood - Venous Blood Culture - Final No growth after 5 days. 05/20/25 16:19 Blood - Venous Blood Culture - Final No growth after 5 days. 05/20/25 Unknown Urine clean catch - Clean Catch Midstream Urine Culture - Final Escherichia coli 05/18/25 Unknown Urine clean catch - Clean Catch Midstream Urine Culture - Final Escherichia coli Assessment and Plan (1) Sigmoid volvulus: Status: Acute (2) Volvulus of colon: Status: Acute (3) Abdominal pain: Status: Acute Plan She has had abdominal discomfort and volvulus with concern over bacterial translocation from bowel and possible resistant UTI and was given Merem and has been on antibiotics,day two Merem She has resistant organisms in urine Would continue Merem while in hospital and then finish total 14 days of antibiotics with macrodantin 100 mg bid.
[2025-05-27] MEDS: Parenteral Nutrition 1,680 ML 70 ML IV (20:11)
[2025-05-28 04:00] VITALS: BP 151/69; PULSE 81; RESP 16; TEMP 36.9; O2SAT 93
[2025-05-28 06:42] LABS: MANUAL DIFF FLAG NO
[2025-05-28 06:51] LABS: Hematocrit 34.5 % (37.0-47.0); Hemoglobin 11.1 g/dl (12.0-16.0); Imm Gran Abs Auto 0.07 X10*3/uL (0.00-0.03); Imm Gran Pct Auto 0.6 % (0.0-0.4); Lymphocytes Absolute Auto 2.1 X10*3/uL (1.2-4.9); Mean Corpuscular HGB Conc 32.2 g/dl (31.0-35.0); Mean Corpuscular Hemoglobin 25.3 pg (27.0-33.0); Mean Corpuscular Volume 78.8 fL (80.0-98.0); NRBC Abs Auto 0.000 X10*3/uL (0.0-0.012); NRBC Pct Auto 0.0 /100WBC (0.0-0.2); Platelet Count 377 X10*3/uL (160-400); Red Blood Count 4.38 X10*6/uL (4.20-5.50); White Blood Count 11.7 X10*3/uL (4.8-10.8)
[2025-05-28 07:01] LABS: Alanine Aminotransferase 16 U/L (0-31); Albumin Level 3.8 g/dL (3.5-5.0); Alkaline Phosphatase 89 U/L (39-117); Anion Gap 15 (12-20); Aspartate Amino Transferase 12 U/L (5-31); Blood Urea Nitrogen 13 mg/dL (9-16); Calcium 9.5 mg/dL (8.4-10.2); Carbon Dioxide 25 mmol/L (22-29); Chloride 104 mmol/L (96-108); Creatinine Clr Calc Pharmacy 117.8; Estimated Glomerular Filt Rate > 60; Magnesium 2.0 mg/dL (1.6-2.6); Potassium 4.3 mmol/L (3.3-5.1); Sodium 140 mmol/L (135-145); Total Protein 6.9 g/dL (6.5-8.0)
[2025-05-28 07:51] VITALS: BP 167/72; PULSE 61; RESP 18; TEMP 37; O2SAT 94
--- NOTE | 2025-05-28 07:59 | PM.PNGS ---
Subjective Subjective Date of Service: 05/29/25 <Juan Alberto Escobar MD - Last Filed: 05/29/25 09:55> 05/28/25 <Jose Killian PA-C - Last Filed: 05/28/25 10:03> Interval history: No events overnight Tolerating diet Continues to have BMs According to staff seems to be have been comfortable <Juan Albetro Escobar MD - Last Filed: 05/29/25 09:55> No events overnight Tolerating diet Continues to have BMs According to staff seems to be have been comfortable Doing good today, denies abdominal pain, continues to have nausea, well controlled with medication. She is tolerating clear liquid diet. Passing gas and multiple bowel movments. Has been up and out of bed. More alert this morning, less tremulous <Jose Killian PA-C - Last Filed: 05/28/25 10:03> Physical Exam Vital Signs: Vital Signs: Last Vital Signs Temp 98.5 F 05/28/25 04:00 Pulse 81 05/28/25 04:00 Resp 16 05/28/25 04:00 BP 151/69 H 05/28/25 04:00 Pulse Ox 93 05/28/25 04:00 O2 Del Method Room Air 05/28/25 04:00 O2 Flow Rate 1 05/21/25 03:08 BMI result Body Mass Index 35.6 <Juan Alberto Escobar MD - Last Filed: 05/29/25 09:55> Const: Other: Sitting on recliner, answers some questions, seems more alert <Juan Alberto Escobar MD - Last Filed: 05/29/25 09:55> General: comfortable and no acute distress <Juan Alberto Escobar MD - Last Filed: 05/29/25 09:55> General: alert <Jose Killian PA-C - Last Filed: 05/28/25 10:03> Resp: Effort & Inspection: normal respiratory effort <Juan Alberto Escobar MD - Last Filed: 05/29/25 09:55> Cardio: Rate: regular rate <Juan Alberto Escobar MD - Last Filed: 05/29/25 09:55> GI: Inspection: No distended <Juan Alberto Escobar MD - Last Filed: 05/29/25 09:55> Palpation (GI): Soft to palpation, not firm, nontender and no guarding <Juan Alberto Escobar MD - Last Filed: 05/29/25 09:55> Objective Data Active Medications Benzocaine (Throat Lozenge, Medicated Lozenge) 1 lozenge MUCOUS MEM Q2H PRN PRN Reason: Sore Throat Last Admin: 05/23/25 00:14 Dose: 1 lozenge Documented By: LUZ Calcium Carbonate (Calcium Carbonate 750 Mg Tab.Chew) 750 mg PO Q4H PRN PRN Reason: Heartburn Clonazepam (Clonazepam 0.5 Mg Tablet) 0.5 mg PO DAILY [facility] Last Admin: 05/27/25 08:41 Dose: 0.5 mg Documented By: JANNETH Clonazepam (Clonazepam 1 Mg Tablet) 1 mg PO BEDTIME [facility]XMI Last Admin: 05/27/25 20:10 Dose: 1 mg Documented By: MIGEL Clozapine (Clozapine 25 Mg Tablet) 50 mg PO BEDTIME LAXMI; Taper Stop: 06/06/25 20:59 Last Admin: 05/27/25 20:10 Dose: 50 mg Documented By: MIGEL Clozapine (Clozapine 100 Mg Tablet) 300 mg PO BEDTIME [facility]XMI Diltiazem HCl (Diltiazem Hcl Cd 120 Mg Cap.Er.Deg) 120 mg PO DAILY [facility]; Protocol Last Admin: 05/27/25 08:39 Dose: 120 mg Documented By: JANNETH Divalproex Sodium (Divalproex Sodium Sprinkles 125 Mg Cap.Dr.Spr) 750 mg PO BID [facility] Last Admin: 05/27/25 20:10 Dose: 750 mg Documented By: MIGEL Docusate Sodium (Docusate Sodium 100 Mg Capsule) 100 mg PO BID [facility] Last Admin: 05/27/25 20:10 Dose: 100 mg Documented By: MIGEL Enoxaparin Sodium (Enoxaparin Sodium 40 Mg/0.4 Ml Syringe) 40 mg SUBCUT Q24H [facility]XMI On Hold: 05/24/25 01:09 Last Admin: 05/23/25 12:43 Dose: 40 mg Documented By: CARLOS Fluoxetine HCl (Fluoxetine Hcl 10 Mg Capsule) 30 mg PO DAILY [facility] On Hold: 05/27/25 09:44 Last Admin: 05/27/25 08:40 Dose: 30 mg Documented By: JANNETH Hydralazine HCl (Hydralazine Hcl 20 Mg/Ml Vial) 5 mg IVPUSH Q6H PRN; Protocol PRN Reason: SBP > 180 Last Admin: 05/26/25 23:34 Dose: 5 mg Documented By: ROBIN Nutrition (Parenteral) (Parenteral Nutrition) 1,680 mls @ 70 mls/hr IV .Q24H [facility]XMI; Protocol Stop: 05/28/25 20:59 Last Admin: 05/27/25 20:11 Dose: 70 mls/hr Documented By: MIGEL Nutrition (Parenteral) (Parenteral Nutrition) 1,680 mls @ 70 mls/hr IV .Q24H [facility]; Protocol Stop: 05/29/25 20:59 Lactulose (Lactulose 20 Gm/30 Ml Solution) 30 gm PO DAILY [facility] Last Admin: 05/27/25 08:38 Dose: 30 gm Documented By: JANNETH Lisinopril (Lisinopril 10 Mg Tablet) 10 mg PO DAILY [facility]; Protocol Last Admin: 05/27/25 08:50 Dose: 10 mg Documented By: JANNETH Magnesium Hydroxide (Milk Of Magnesia 30 Ml Oral.Susp) 30 ml PO DAILY PRN PRN Reason: Constipation Melatonin (Melatonin 3 Mg Tablet) 6 mg PO BEDTIME PRN PRN Reason: Insomnia Meropenem (Meropenem 1 Gm Vial) 1 gm IVPUSH Q8H [facility] Stop: 06/02/25 10:59 Last Admin: 05/28/25 03:10 Dose: 1 gm Documented By: SANJAY Ondansetron HCl (Ondansetron Hcl 4 Mg/2 Ml Vial) 4 mg IVPUSH Q6H PRN PRN Reason: Nausea and Vomiting Last Admin: 05/27/25 20:31 Dose: 4 mg Documented By: MIGEL Pharmacy Consult (Consult Rx Parenteral Nutrition Ordering) 1 each MISCELLANE DAILY PRN PRN Reason: Consult order Polyethylene Glycol (Polyethylene Glycol 3350 17 Gm Powd.Pack) 17 gm PO DAILY [facility] Last Admin: 05/27/25 08:51 Dose: 17 gm Documented By: JANNETH Sodium Chloride (0.9 % Sodium Chloride Flush 3 Ml Syringe) 3 ml IVFLUSH QSHIFT [facility] Last Admin: 05/28/25 00:03 Dose: Not Given Documented By: SANJAY Non-Admin Reason: IV Running <Juan Alberto Escobar MD - Last Filed: 05/29/25 09:55> Labs CBC & Chem 7: 05/29/25 06:18 05/29/25 06:18 <Juan Alberto Escobar MD - Last Filed: 05/29/25 09:55> Labs: Laboratory Results - last 24 hr 05/28/25 05:56 MCV 78.8 L MCH 25.3 L MCHC 32.2 RDW 21.8 H Plt Count 377 MPV 10.7 Immature Gran % (Auto) 0.6 H Neut % (Auto) 70.4 Lymph % (Auto) 18.2 L [place] % (Auto) 8.5 Eos % (Auto) 1.9 Baso % (Auto) 0.4 Lymph # (Auto) 2.1 [place] # (Auto) 1.0 Eos # (Auto) 0.2 Baso # (Auto) 0.1 Abs Immat Gran (auto) 0.07 H Absolute Neuts (auto) 8.2 Absolute Nucleated RBC 0.000 Nucleated RBC % (auto) 0.0 Anion Gap 15 Estim Creat Clear Calc 117.8 Estimated GFR > 60 Random Glucose 126 H Calcium 9.5 Phosphorus 4.6 H Magnesium 2.0 Total Bilirubin 0.4 AST 12 ALT 16 Alkaline Phosphatase 89 Total Protein 6.9 Albumin 3.8 <Juan Alberto Escobar MD - Last Filed: 05/29/25 09:55> Procedures Date of Service Date of Service: 05/29/25 <Juan Alberto Escobar MD - Last Filed: 05/29/25 09:55> 05/28/25 <Jose Killian PA-C - Last Filed: 05/28/25 10:03> Progress Note: A&P Assessment and plan (1) Volvulus of colon: Status: Acute <Juan Alberto Escobar MD - Last Filed: 05/29/25 09:55> Assessment and Plan: Tolerating clear liquids We will advance diet Abdomen remained soft and benign Passing flatus Patient has refused surgery Appreciate hospitalist follow-up Less tremors today Seems more alert and comfortable <Juan Alberto Escobar MD - Last Filed: 05/29/25 09:55> Assessment and Plan: 59 year old female admitted for sigmoid volvulous s/p felx sig, with identification of the transition point, was able to pass this point and detorse the colon. Patient was seen by hospitalist, ceftriaxone now changed to Mirapenam for cephalosporin resistant UTI. ID consult appreciated. Will continue while inpatient and finish total 14 days of antibiotics with macrodantin 100 mg bid if d/c prior. Psych also now following, slowly restarting her medications. Per psych recommendations when restarting clozapine, patient will need aggressive bowel regimen to prevent recurrence of obstruction. She is more alert today, now OOB in chair. Denies pain. Continued nausea, well controlled with zofran. Abdomen soft and benign Has been passing bowel movements consistently over the past few days. We will trial her on regular diet today. Will hold off on picc for TPN. Advance diet today to regular diet Continue PPN, hold off on PICC line as we are trialing diet Continue to monitor for worsening anemia, electrolyte imbalances Continue PPI Serial abdominal exams continue IV abx for UTI continue to titrate clozapine per psych recommendations, will continue bowel regimen while titrating. <Jose Killian PA-C - Last Filed: 05/28/25 10:03> Time Spent With Patient Time: Total time managing care of this patient today ____ minutes. <Juan Alberto Escobar MD - Last Filed: 05/29/25 09:55> Quality Stroke Does the patient have a stroke diagnosis?: No <Juan Alberto Escobar MD - Last Filed: 05/29/25 09:55> VTE Prior VTE?: No <Juan Alberto Escobar MD - Last Filed: 05/29/25 09:55> VTE Risk Level:: Surgical - moderate <Juan Alberto Escobar MD - Last Filed: 05/29/25 09:55> VTE Device Contraindication: N/A - Device Ordered <Juan Alberto Escobar MD - Last Filed: 05/29/25 09:55> VTE Drug Contraindication: Treatment Not Tolerated <Juan Alberto Escobar MD - Last Filed: 05/29/25 09:55>
[2025-05-28] MEDS: Divalproex Sodium Sprinkles 125 MG CAP.DR.SPR 750 MG PO ×2 (08:25→20:28)
[2025-05-28] MEDS: 0.9 % Sodium Chloride Flush 3 ML SYRINGE IVFLUSH (08:25)
[2025-05-28] MEDS: dilTIAZem HCL CD 120 MG CAP.ER.DEG PO (08:25)
--- NOTE | 2025-05-28 09:58 | MHC.CLN ---
F/U DIET REMAINS C/L DIET TO ADVANCE TODAY PER PT CONTINUES WITH BM PT REFUSES SX REVIEWED LABS DISCUSSED WITH PHARMACY CONTINUE PPN AT MAX GOAL RATE 70ML/HR WITH 52G LIPIDS PROVIDES 1377 TOTAL KCALS (23KCALS/KG), 168G DEXTROSE, 71G PROTEIN (1.2G/KG) REPLETE LYTES NEEDED MONITOR PO INTAKE CLOSELY GOAL TO REDUCE PPN PO INTAKE IMPROVES
[2025-05-28 11:34] VITALS: BP 172/84; PULSE 60; RESP 20; TEMP 36.8; O2SAT 92
--- NOTE | 2025-05-28 15:21 | PM.EVENT ---
Event Note Date of Service: 05/29/25 Event Note: Seen earlier on afternoon rounds Appears comfortable Continues to tolerate oral intake No nausea or vomiting Abdomen remained soft and benign Diet as tolerated Appreciate hospitalist follow up Time Spent With Patient Time: Total time managing care of this patient today ____ minutes.
[2025-05-28 16:00] VITALS: BP 129/58; PULSE 70; RESP 18; TEMP 37.2; O2SAT 94
[2025-05-28 19:27] VITALS: BP 157/70; PULSE 64; RESP 17; TEMP 36.8; O2SAT 95
[2025-05-28] MEDS: Parenteral Nutrition 1,680 ML 70 ML IV (20:28)
[2025-05-28 23:39] VITALS: BP 125/68; PULSE 79; RESP 17; TEMP 36.6; O2SAT 95
[2025-05-29 03:13] VITALS: BP 125/60; PULSE 65; RESP 19; TEMP 36.7; O2SAT 94
[2025-05-29 07:09] LABS: MANUAL DIFF FLAG NO
[2025-05-29 07:13] LABS: Hematocrit 36.0 % (37.0-47.0); Hemoglobin 11.2 g/dl (12.0-16.0); Imm Gran Abs Auto 0.07 X10*3/uL (0.00-0.03); Imm Gran Pct Auto 0.6 % (0.0-0.4); Lymphocytes Absolute Auto 1.6 X10*3/uL (1.2-4.9); Mean Corpuscular HGB Conc 31.1 g/dl (31.0-35.0); Mean Corpuscular Hemoglobin 25.1 pg (27.0-33.0); Mean Corpuscular Volume 80.5 fL (80.0-98.0); NRBC Abs Auto 0.000 X10*3/uL (0.0-0.012); NRBC Pct Auto 0.0 /100WBC (0.0-0.2); Platelet Count 344 X10*3/uL (160-400); Red Blood Count 4.47 X10*6/uL (4.20-5.50); White Blood Count 11.9 X10*3/uL (4.8-10.8)
[2025-05-29 07:27] LABS: Alanine Aminotransferase 13 U/L (0-31); Albumin Level 3.5 g/dL (3.5-5.0); Alkaline Phosphatase 82 U/L (39-117); Anion Gap 14 (12-20); Aspartate Amino Transferase 12 U/L (5-31); Blood Urea Nitrogen 12 mg/dL (9-16); Calcium 9.3 mg/dL (8.4-10.2); Carbon Dioxide 27 mmol/L (22-29); Chloride 102 mmol/L (96-108); Creatinine Clr Calc Pharmacy 122.6; Estimated Glomerular Filt Rate > 60; Magnesium 2.0 mg/dL (1.6-2.6); Potassium 4.0 mmol/L (3.3-5.1); Sodium 139 mmol/L (135-145); Total Protein 6.4 g/dL (6.5-8.0)
[2025-05-29 07:34] VITALS: BP 150/67; PULSE 88; RESP 16; TEMP 37.2; O2SAT 96
--- NOTE | 2025-05-29 07:35 | PM.PNGS ---
Subjective Subjective Date of Service: 05/29/25 Interval history: Sleepy this morning. states she is doing better. denies pain. has some nausea. no episodes of vomiting. Diet was advanced. she has had small amounts but seems to be tolerating. Has been up ambulating throughout the day. She is passing gas and bowel movements Physical Exam Vital Signs: Vital Signs: Last Vital Signs Temp 98.0 F 05/29/25 03:13 Pulse 65 05/29/25 03:13 Resp 19 05/29/25 03:13 BP 125/60 05/29/25 03:13 Pulse Ox 94 05/29/25 03:13 O2 Del Method Room Air 05/29/25 03:13 O2 Flow Rate 1 05/21/25 03:08 BMI result Body Mass Index 35.6 Const: General: comfortable and no acute distress GI: Inspection: No distended Palpation (GI): Soft to palpation, nontender and no guarding Objective Data Active Medications Benzocaine (Throat Lozenge, Medicated Lozenge) 1 lozenge MUCOUS MEM Q2H PRN PRN Reason: Sore Throat Last Admin: 05/23/25 00:14 Dose: 1 lozenge Documented By: LUZ Calcium Carbonate (Calcium Carbonate 750 Mg Tab.Chew) 750 mg PO Q4H PRN PRN Reason: Heartburn Clonazepam (Clonazepam 0.5 Mg Tablet) 0.5 mg PO DAILY [facility] Last Admin: 05/28/25 08:25 Dose: 0.5 mg Documented By: JOSE Clonazepam (Clonazepam 1 Mg Tablet) 1 mg PO BEDTIME [facility]XMI Last Admin: 05/28/25 20:28 Dose: 1 mg Documented By: ERICK Clozapine (Clozapine 25 Mg Tablet) 75 mg PO BEDTIME LAXMI; Taper Stop: 06/06/25 20:59 Last Admin: 05/28/25 20:29 Dose: 75 mg Documented By: ERICK Clozapine (Clozapine 100 Mg Tablet) 300 mg PO BEDTIME [facility]XMI Diltiazem HCl (Diltiazem Hcl Cd 120 Mg Cap.Er.Deg) 120 mg PO DAILY [facility]; Protocol Last Admin: 05/28/25 08:25 Dose: 120 mg Documented By: JOSE Divalproex Sodium (Divalproex Sodium Sprinkles 125 Mg Cap.DrBenitaSpr) 750 mg PO BID [facility] Last Admin: 05/28/25 20:28 Dose: 750 mg Documented By: ERICK Docusate Sodium (Docusate Sodium 100 Mg Capsule) 100 mg PO BID [facility] Last Admin: 05/28/25 20:28 Dose: 100 mg Documented By: ERICK Enoxaparin Sodium (Enoxaparin Sodium 40 Mg/0.4 Ml Syringe) 40 mg SUBCUT Q24H [facility] On Hold: 05/24/25 01:09 Last Admin: 05/23/25 12:43 Dose: 40 mg Documented By: CARLOS Fluoxetine HCl (Fluoxetine Hcl 10 Mg Capsule) 30 mg PO DAILY [facility] On Hold: 05/27/25 09:44 Last Admin: 05/27/25 08:40 Dose: 30 mg Documented By: JANNETH Hydralazine HCl (Hydralazine Hcl 20 Mg/Ml Vial) 5 mg IVPUSH Q6H PRN; Protocol PRN Reason: SBP > 180 Last Admin: 05/26/25 23:34 Dose: 5 mg Documented By: ROBIN Nutrition (Parenteral) (Parenteral Nutrition) 1,680 mls @ 70 mls/hr IV .Q24H [facility]; Protocol Stop: 05/29/25 20:59 Last Admin: 05/28/25 20:28 Dose: 70 mls/hr Documented By: ERICK Lactulose (Lactulose 20 Gm/30 Ml Solution) 30 gm PO DAILY [facility] Last Admin: 05/28/25 08:24 Dose: 30 gm Documented By: JOSE Lisinopril (Lisinopril 10 Mg Tablet) 10 mg PO DAILY [facility]; Protocol Last Admin: 05/28/25 08:25 Dose: 10 mg Documented By: JOSE Magnesium Hydroxide (Milk Of Magnesia 30 Ml Oral.Susp) 30 ml PO DAILY PRN PRN Reason: Constipation Melatonin (Melatonin 3 Mg Tablet) 6 mg PO BEDTIME PRN PRN Reason: Insomnia Meropenem (Meropenem 1 Gm Vial) 1 gm IVPUSH Q8H [facility] Stop: 06/02/25 10:59 Last Admin: 05/29/25 04:35 Dose: 1 gm Documented By: ERICK Comments: late admin d/t lost IV access Ondansetron HCl (Ondansetron Hcl 4 Mg/2 Ml Vial) 4 mg IVPUSH Q6H PRN PRN Reason: Nausea and Vomiting Last Admin: 05/28/25 08:38 Dose: 4 mg Documented By: JOSE Pharmacy Consult (Consult Rx Parenteral Nutrition Ordering) 1 each MISCELLANE DAILY PRN PRN Reason: Consult order Polyethylene Glycol (Polyethylene Glycol 3350 17 Gm Powd.Pack) 17 gm PO DAILY [facility] Last Admin: 05/28/25 08:24 Dose: 17 gm Documented By: JOSE Sodium Chloride (0.9 % Sodium Chloride Flush 3 Ml Syringe) 3 ml IVFLUSH QSHIFT [facility] Last Admin: 05/28/25 20:43 Dose: Not Given Documented By: ERICK Non-Admin Reason: IV Running Labs 05/29/25 06:18 05/29/25 06:18 Labs: Laboratory Results - last 24 hr 05/29/25 06:18 MCV 80.5 MCH 25.1 L MCHC 31.1 RDW 22.0 H Plt Count 344 MPV 11.5 Immature Gran % (Auto) 0.6 H Neut % (Auto) 76.8 H Lymph % (Auto) 13.2 L [place] % (Auto) 7.5 Eos % (Auto) 1.6 Baso % (Auto) 0.3 Lymph # (Auto) 1.6 [place] # (Auto) 0.9 Eos # (Auto) 0.2 Baso # (Auto) 0.0 Abs Immat Gran (auto) 0.07 H Absolute Neuts (auto) 9.2 H Absolute Nucleated RBC 0.000 Nucleated RBC % (auto) 0.0 Anion Gap 14 Estim Creat Clear Calc 122.6 Estimated GFR > 60 Random Glucose 148 H Calcium 9.3 Phosphorus 4.0 Magnesium 2.0 Total Bilirubin 0.5 AST 12 ALT 13 Alkaline Phosphatase 82 Total Protein 6.4 L Albumin 3.5 Procedures Date of Service Date of Service: 05/29/25 Progress Note: A&P Assessment and plan (1) Volvulus of colon: Status: Acute Plan 59 year old female admitted for sigmoid volvulous s/p felx sig, with identification of the transition point, was able to pass this point and detorse the colon. Patient was seen by hospitalist, ceftriaxone now changed to Mirapenam for cephalosporin resistant UTI. ID consult appreciated. Will continue while inpatient and finish total 14 days of antibiotics with macrodantin 100 mg bid if d/c prior. Psych also now following, slowly restarting her medications. Per psych recommendations when restarting clozapine, patient will need aggressive bowel regimen to prevent recurrence of obstruction. She feels better today. Denies pain. Continued nausea, well controlled with zofran. Abdomen soft and benign Has been passing bowel movements consistently over the past few days. Will cancel picc for TPN now that she is taking PO. From a surgical standpoint, nearing discharge. Hospitalist team recommending CARE consult, we had previously discussed possible psych transfer/admission when ready to DC from our service. Will coordinate with hospitalist team and psych for a plan. Regular diet as tolerated. Continue PPN Continue to monitor for worsening anemia, electrolyte imbalances Continue PPI Serial abdominal exams continue IV abx for UTI continue to titrate clozapine per psych recommendations, will continue bowel regimen while titrating. Time Spent With Patient Time: Total time managing care of this patient today ____ minutes. Quality Stroke Does the patient have a stroke diagnosis?: No VTE Prior VTE?: No VTE Risk Level:: Surgical - moderate VTE Device Contraindication: N/A - Device Ordered VTE Drug Contraindication: Treatment Not Tolerated
[2025-05-29] MEDS: Divalproex Sodium Sprinkles 125 MG CAP.DR.SPR 750 MG PO ×2 (08:18→21:28)
[2025-05-29] MEDS: 0.9 % Sodium Chloride Flush 3 ML SYRINGE IVFLUSH ×2 (08:19→17:42)
[2025-05-29] MEDS: dilTIAZem HCL CD 120 MG CAP.ER.DEG PO (08:19)
--- NOTE | 2025-05-29 08:36 | P.PNIM_ITS ---
Subjective Subjective Date of Service: 05/29/25 Interval History: Patient is seen in follow up, reports she is eating and drinking. Denies any shortness of breath or pain. Abdomen soft. Vitals are stable. No vomiting, having bowel movements. Patient refused breakfast this morning, ate a small amount of a sandwich for lunch. Review of Systems She denies any shortness of breath, dizziness, lightheadedness or any other concerning symptoms. Physical Exam 2 Vital Signs: Vital Signs: Last Vital Signs Temp 99.0 F 05/29/25 07:34 Pulse 88 05/29/25 07:34 Resp 16 05/29/25 07:34 BP 150/67 H 05/29/25 07:34 Pulse Ox 96 05/29/25 07:34 O2 Del Method Room Air 05/29/25 07:34 O2 Flow Rate 1 05/21/25 03:08 BMI result Body Mass Index 35.6 Objective Data Active Medications Benzocaine (Throat Lozenge, Medicated Lozenge) 1 lozenge MUCOUS MEM Q2H PRN PRN Reason: Sore Throat Last Admin: 05/23/25 00:14 Dose: 1 lozenge Documented By: LUZ Calcium Carbonate (Calcium Carbonate 750 Mg Tab.Chew) 750 mg PO Q4H PRN PRN Reason: Heartburn Clonazepam (Clonazepam 0.5 Mg Tablet) 0.5 mg PO DAILY [facility] Last Admin: 05/29/25 08:18 Dose: 0.5 mg Documented By: JOSE Clonazepam (Clonazepam 1 Mg Tablet) 1 mg PO BEDTIME [facility] Last Admin: 05/28/25 20:28 Dose: 1 mg Documented By: ERICK Clozapine (Clozapine 25 Mg Tablet) 75 mg PO BEDTIME [facility]; Taper Stop: 06/06/25 20:59 Last Admin: 05/28/25 20:29 Dose: 75 mg Documented By: ERICK Clozapine (Clozapine 100 Mg Tablet) 300 mg PO BEDTIME [facility] Diltiazem HCl (Diltiazem Hcl Cd 120 Mg Cap.Er.Deg) 120 mg PO DAILY [facility]; Protocol Last Admin: 05/29/25 08:19 Dose: 120 mg Documented By: JOSE Divalproex Sodium (Divalproex Sodium Sprinkles 125 Mg Cap.DrBenitaSpr) 750 mg PO BID [facility] Last Admin: 05/29/25 08:18 Dose: 750 mg Documented By: JOSE Docusate Sodium (Docusate Sodium 100 Mg Capsule) 100 mg PO BID [facility] Last Admin: 05/29/25 08:18 Dose: 100 mg Documented By: JOSE Enoxaparin Sodium (Enoxaparin Sodium 40 Mg/0.4 Ml Syringe) 40 mg SUBCUT Q24H [facility] On Hold: 05/24/25 01:09 Last Admin: 05/23/25 12:43 Dose: 40 mg Documented By: CARLOS Fluoxetine HCl (Fluoxetine Hcl 10 Mg Capsule) 30 mg PO DAILY [facility] On Hold: 05/27/25 09:44 Last Admin: 05/27/25 08:40 Dose: 30 mg Documented By: JANNETH Hydralazine HCl (Hydralazine Hcl 20 Mg/Ml Vial) 5 mg IVPUSH Q6H PRN; Protocol PRN Reason: SBP > 180 Last Admin: 05/26/25 23:34 Dose: 5 mg Documented By: ROBIN Nutrition (Parenteral) (Parenteral Nutrition) 1,680 mls @ 70 mls/hr IV .Q24H [facility]; Protocol Stop: 05/29/25 20:59 Last Admin: 05/28/25 20:28 Dose: 70 mls/hr Documented By: ERICK Nutrition (Parenteral) (Parenteral Nutrition) 1,680 mls @ 70 mls/hr IV .Q24H [facility]; Protocol Stop: 05/30/25 20:59 Lactulose (Lactulose 20 Gm/30 Ml Solution) 30 gm PO DAILY [facility] Last Admin: 05/29/25 08:19 Dose: 30 gm Documented By: JOSE Lisinopril (Lisinopril 10 Mg Tablet) 10 mg PO DAILY [facility]; Protocol Last Admin: 05/29/25 08:18 Dose: 10 mg Documented By: JOSE Magnesium Hydroxide (Milk Of Magnesia 30 Ml Oral.Susp) 30 ml PO DAILY PRN PRN Reason: Constipation Melatonin (Melatonin 3 Mg Tablet) 6 mg PO BEDTIME PRN PRN Reason: Insomnia Meropenem (Meropenem 1 Gm Vial) 1 gm IVPUSH Q8H [facility] Stop: 06/02/25 10:59 Last Admin: 05/29/25 04:35 Dose: 1 gm Documented By: ERICK Comments: late admin d/t lost IV access Ondansetron HCl (Ondansetron Hcl 4 Mg/2 Ml Vial) 4 mg IVPUSH Q6H PRN PRN Reason: Nausea and Vomiting Last Admin: 05/28/25 08:38 Dose: 4 mg Documented By: JOSE Pharmacy Consult (Consult Rx Parenteral Nutrition Ordering) 1 each MISCELLANE DAILY PRN PRN Reason: Consult order Polyethylene Glycol (Polyethylene Glycol 3350 17 Gm Powd.Pack) 17 gm PO DAILY [facility] Last Admin: 05/29/25 08:18 Dose: 17 gm Documented By: JOSE Sodium Chloride (0.9 % Sodium Chloride Flush 3 Ml Syringe) 3 ml IVFLUSH QSHIFT [facility] Last Admin: 05/29/25 08:19 Dose: 3 ml Documented By: JOSE Labs 05/29/25 06:18 05/29/25 06:18 Labs: Laboratory Results - last 24 hr 05/29/25 06:18 MCV 80.5 MCH 25.1 L MCHC 31.1 RDW 22.0 H Plt Count 344 MPV 11.5 Immature Gran % (Auto) 0.6 H Neut % (Auto) 76.8 H Lymph % (Auto) 13.2 L [place] % (Auto) 7.5 Eos % (Auto) 1.6 Baso % (Auto) 0.3 Lymph # (Auto) 1.6 [place] # (Auto) 0.9 Eos # (Auto) 0.2 Baso # (Auto) 0.0 Abs Immat Gran (auto) 0.07 H Absolute Neuts (auto) 9.2 H Absolute Nucleated RBC 0.000 Nucleated RBC % (auto) 0.0 Anion Gap 14 Estim Creat Clear Calc 122.6 Estimated GFR > 60 Random Glucose 148 H Calcium 9.3 Phosphorus 4.0 Magnesium 2.0 Total Bilirubin 0.5 AST 12 ALT 13 Alkaline Phosphatase 82 Total Protein 6.4 L Albumin 3.5 Assessment and Plan (1) Abdominal distension: Status: Resolved Plan 59 year old Romansh speaking women presented to the ED with abdominal pain. She was found to have sigmoid volvulus , status post flexible sigmoidoscopy with identification a transition point in the colon was detorsed. Course complicated by UTI and Clozaril dosing. Sigmoid volvulus Treatment per surgery team Patient tolerating diet. Refused breakfast this morning and took small bites of sandwich for lunch Patient is passing stool and flatus. Patient continues with PPN, plan per surgery team Encourage out of bed PT eval and treat for disposition. Inpatient psych versus rehab Urinary tract infection Patient with a positive UTI greater than 100,000 E coli. Resistant to ceftriaxone Meropenum Q 8 hours for 7 days total. Started 05/26 May switch to Macrobid BID for a total of 14 days of antibiotics when patient is ready for discharge Status post upper GI bleed/acute on chronic anemia/GERD Home Iron on hold Status post 3 units of PRBC H&H is stable 36.0/11.2. Follow labs Continue omeprazole b.i.d. DM2 Continue SS, ADA diet Metformin on hold HTN Continue lisinopril and diltiazem Blood pressure stable. Schizoaffective disorder bipolar type/ Mild cognitive impairment/Chronic mental illness and/or delirium Resuming clozaril at increased tapering dose. Monitor for psychiatric decompensation. Resumed Prozac and Clonazepam and depakote. Avoid constipation Care consult DVT prophylaxis with sequentials Full code Thank you for allowing me to participate in the care of this patient. Will follow as needed, please notify medical provider with any changes in condition or concerns. Quality Stroke Does the patient have a stroke diagnosis?: No VTE Prior VTE?: No VTE Risk Level:: Surgical - moderate VTE Device Contraindication: N/A - Device Ordered VTE Drug Contraindication: Treatment Not Tolerated
--- NOTE | 2025-05-29 10:20 | MHC.CLN ---
F/U DIET TO ADVANCED TO REGULAR 25, 50% PO X2 MEALS PT CONTINUES WITH BM REVIEWED LABS DISCUSSED WITH PHARMACY CONTINUE PPN AT MAX GOAL RATE 70ML/HR WITH 52G LIPIDS PROVIDES 1377 TOTAL KCALS (23KCALS/KG), 168G DEXTROSE, 71G PROTEIN (1.2G/KG) REPLETE LYTES NEEDED MONITOR PO INTAKE CLOSELY CONTINUE PPN AT MAX GOAL RATE THRU WEEKEND UNLESS MD D/C RD CAN BE REACHED VIA Active [employer]CT DURING OFF HOURS IF NEEDED
[2025-05-29 11:10] VITALS: BP 127/60; PULSE 69; RESP 16; TEMP 37.2; O2SAT 94
--- NOTE | 2025-05-29 11:19 | MHC.CARE ---
T/W attempted to meet with Pt alongside [place] russian language professor. Pt was unable to arouse and unresponsive. CARE team unable to assess at this time. Provider made aware.
--- NOTE | 2025-05-29 11:24 | MHC.CM.PN ---
Per EMR review, pt. improving, advancing diet, to have an updated psych consult to assist with DCP. CM to follow and assist with DC plan.
--- NOTE | 2025-05-29 12:20 | P.PNGS_ITS ---
Subjective Subjective Date of Service: 05/30/25 Interval history: reported to be tolerating diet no reported vomitting denies pain has BMs Physical Exam 2 Vital Signs: Vital Signs: Last Vital Signs Temp 98.9 F 05/29/25 11:10 Pulse 69 05/29/25 11:10 Resp 16 05/29/25 11:10 BP 127/60 05/29/25 11:10 Pulse Ox 94 05/29/25 11:10 O2 Del Method Room Air 05/29/25 11:10 O2 Flow Rate 1 05/21/25 03:08 BMI result Body Mass Index 35.6 Const: Other: Appears very comfortable General: no acute distress Resp: Effort & Inspection: normal respiratory effort Cardio: Rate: regular rate GI: Palpation (GI): Soft to palpation, not firm, nontender and no guarding Objective Data Active Medications Benzocaine (Throat Lozenge, Medicated Lozenge) 1 lozenge MUCOUS MEM Q2H PRN PRN Reason: Sore Throat Last Admin: 05/23/25 00:14 Dose: 1 lozenge Documented By: LUZ Calcium Carbonate (Calcium Carbonate 750 Mg Tab.Chew) 750 mg PO Q4H PRN PRN Reason: Heartburn Clonazepam (Clonazepam 0.5 Mg Tablet) 0.5 mg PO DAILY LAXMI Last Admin: 05/29/25 08:18 Dose: 0.5 mg Documented By: JOSE Clonazepam (Clonazepam 1 Mg Tablet) 1 mg PO BEDTIME LAXMI Last Admin: 05/28/25 20:28 Dose: 1 mg Documented By: ERICK Clozapine (Clozapine 25 Mg Tablet) 75 mg PO BEDTIME LAXMI; Taper Stop: 06/06/25 20:59 Last Admin: 05/28/25 20:29 Dose: 75 mg Documented By: ERICK Clozapine (Clozapine 100 Mg Tablet) 300 mg PO BEDTIME LAXMI Diltiazem HCl (Diltiazem Hcl Cd 120 Mg Cap.Er.Deg) 120 mg PO DAILY LAXMI; Protocol Last Admin: 05/29/25 08:19 Dose: 120 mg Documented By: JOSE Divalproex Sodium (Divalproex Sodium Sprinkles 125 Mg Cap.DrBenitaSpr) 750 mg PO BID LAXMI Last Admin: 05/29/25 08:18 Dose: 750 mg Documented By: JOSE Docusate Sodium (Docusate Sodium 100 Mg Capsule) 100 mg PO BID [facility] Last Admin: 05/29/25 08:18 Dose: 100 mg Documented By: JOSE Enoxaparin Sodium (Enoxaparin Sodium 40 Mg/0.4 Ml Syringe) 40 mg SUBCUT Q24H LAXMI On Hold: 05/24/25 01:09 Last Admin: 05/23/25 12:43 Dose: 40 mg Documented By: CARLOS Fluoxetine HCl (Fluoxetine Hcl 10 Mg Capsule) 30 mg PO DAILY LAXMI On Hold: 05/27/25 09:44 Last Admin: 05/27/25 08:40 Dose: 30 mg Documented By: JANNETH Hydralazine HCl (Hydralazine Hcl 20 Mg/Ml Vial) 5 mg IVPUSH Q6H PRN; Protocol PRN Reason: SBP > 180 Last Admin: 05/26/25 23:34 Dose: 5 mg Documented By: ROBIN Nutrition (Parenteral) (Parenteral Nutrition) 1,680 mls @ 70 mls/hr IV .Q24H LAXMI; Protocol Stop: 05/29/25 20:59 Last Admin: 05/28/25 20:28 Dose: 70 mls/hr Documented By: AKILARTB Nutrition (Parenteral) (Parenteral Nutrition) 1,680 mls @ 70 mls/hr IV .Q24H LAXMI; Protocol Stop: 05/30/25 20:59 Lactulose (Lactulose 20 Gm/30 Ml Solution) 30 gm PO DAILY [facility] Last Admin: 05/29/25 08:19 Dose: 30 gm Documented By: JOSE Lisinopril (Lisinopril 10 Mg Tablet) 10 mg PO DAILY LAXMI; Protocol Last Admin: 05/29/25 08:18 Dose: 10 mg Documented By: JOSE Magnesium Hydroxide (Milk Of Magnesia 30 Ml Oral.Susp) 30 ml PO DAILY PRN PRN Reason: Constipation Melatonin (Melatonin 3 Mg Tablet) 6 mg PO BEDTIME PRN PRN Reason: Insomnia Meropenem (Meropenem 1 Gm Vial) 1 gm IVPUSH Q8H LAXMI Stop: 06/02/25 10:59 Last Admin: 05/29/25 10:56 Dose: 1 gm Documented By: JOSE Ondansetron HCl (Ondansetron Hcl 4 Mg/2 Ml Vial) 4 mg IVPUSH Q6H PRN PRN Reason: Nausea and Vomiting Last Admin: 05/28/25 08:38 Dose: 4 mg Documented By: JOSE Pharmacy Consult (Consult Rx Parenteral Nutrition Ordering) 1 each MISCELLANE DAILY PRN PRN Reason: Consult order Polyethylene Glycol (Polyethylene Glycol 3350 17 Gm Powd.Pack) 17 gm PO DAILY [facility] Last Admin: 05/29/25 08:18 Dose: 17 gm Documented By: JOSE Sodium Chloride (0.9 % Sodium Chloride Flush 3 Ml Syringe) 3 ml IVFLUSH QSHIFT [facility] Last Admin: 05/29/25 08:19 Dose: 3 ml Documented By: JOSE Labs 05/30/25 08:15 05/30/25 08:15 Labs: Laboratory Results - last 24 hr 05/29/25 06:18 MCV 80.5 MCH 25.1 L MCHC 31.1 RDW 22.0 H Plt Count 344 MPV 11.5 Immature Gran % (Auto) 0.6 H Neut % (Auto) 76.8 H Lymph % (Auto) 13.2 L [place] % (Auto) 7.5 Eos % (Auto) 1.6 Baso % (Auto) 0.3 Lymph # (Auto) 1.6 [place]ts # (Auto) 0.9 Eos # (Auto) 0.2 Baso # (Auto) 0.0 Abs Immat Gran (auto) 0.07 H Absolute Neuts (auto) 9.2 H Absolute Nucleated RBC 0.000 Nucleated RBC % (auto) 0.0 Anion Gap 14 Estim Creat Clear Calc 122.6 Estimated GFR > 60 Random Glucose 148 H Calcium 9.3 Phosphorus 4.0 Magnesium 2.0 Total Bilirubin 0.5 AST 12 ALT 13 Alkaline Phosphatase 82 Total Protein 6.4 L Albumin 3.5 Procedures Date of Service Date of Service: 05/30/25 Progress Note: A&P Assessment and plan (1) Volvulus of colon: Status: Acute Assessment and Plan: Now on diet and tolerating well Abdomen remained soft and benign She does have some waxing and waning of tremors, and lip-smacking likely from like meds Her mental status also seems to wax and wane throughout the course of the day We have discussed this with the hospitalist service as well as psychiatry to determine placement on discharge She is doing well from surgical standpoint She has refused surgical intervention Family updated Time Spent With Patient Time: Total time managing care of this patient today ____ minutes. Quality Stroke Does the patient have a stroke diagnosis?: No VTE Prior VTE?: No VTE Risk Level:: Surgical - moderate VTE Device Contraindication: N/A - Device Ordered VTE Drug Contraindication: Treatment Not Tolerated
--- NOTE | 2025-05-29 13:39 | MHC.CARE ---
Pt does not meet the criteria for a higher level of care and will be discharged to follow up with current providers. Psychiatry consulted.
--- NOTE | 2025-05-29 15:04 | PM.EVENT ---
Event Note Date of Service: 05/30/25 Event Note: Seen on afternoon rounds Patient says she wants to be discharged sent tolerating diet Has BMs Abdomen is soft and benign Discussed with the hospitalist - PT consult Psych has cleared the patient to be discharged home Possible discharge home tomorrow with instructions for dosing of Clozaril Time Spent With Patient Time: Total time managing care of this patient today ____ minutes.
[2025-05-29 15:58] VITALS: BP 130/60; PULSE 74; RESP 18; TEMP 36.3; O2SAT 95
[2025-05-29 19:59] VITALS: BP 127/59; PULSE 82; RESP 16; TEMP 36.1; O2SAT 92
[2025-05-29] MEDS: Parenteral Nutrition 1,680 ML 70 ML IV (22:20)
[2025-05-30] MEDS: 0.9 % Sodium Chloride Flush 3 ML SYRINGE IVFLUSH ×3 (03:57→22:35)
[2025-05-30 04:00] VITALS: BP 139/63; PULSE 57; RESP 16; TEMP 36.1; O2SAT 94
[2025-05-30 08:46] LABS: MANUAL DIFF FLAG NO
[2025-05-30 08:55] LABS: Hematocrit 37.9 % (37.0-47.0); Hemoglobin 11.8 g/dl (12.0-16.0); Imm Gran Abs Auto 0.05 X10*3/uL (0.00-0.03); Imm Gran Pct Auto 0.4 % (0.0-0.4); Lymphocytes Absolute Auto 1.6 X10*3/uL (1.2-4.9); Mean Corpuscular HGB Conc 31.1 g/dl (31.0-35.0); Mean Corpuscular Hemoglobin 24.9 pg (27.0-33.0); Mean Corpuscular Volume 80.1 fL (80.0-98.0); NRBC Abs Auto 0.000 X10*3/uL (0.0-0.012); NRBC Pct Auto 0.0 /100WBC (0.0-0.2); Platelet Count 349 X10*3/uL (160-400); Red Blood Count 4.73 X10*6/uL (4.20-5.50); White Blood Count 12.8 X10*3/uL (4.8-10.8)
[2025-05-30 09:13] LABS: Anion Gap 14 (12-20); Blood Urea Nitrogen 16 mg/dL (9-16); Calcium 9.7 mg/dL (8.4-10.2); Carbon Dioxide 27 mmol/L (22-29); Chloride 100 mmol/L (96-108); Creatinine Clr Calc Pharmacy 130.6; Estimated Glomerular Filt Rate > 60; Potassium 4.1 mmol/L (3.3-5.1); Sodium 137 mmol/L (135-145)
[2025-05-30 09:16] LABS: Alanine Aminotransferase 14 U/L (0-31); Albumin Level 3.9 g/dL (3.5-5.0); Alkaline Phosphatase 86 U/L (39-117); Anion Gap 13 (12-20); Aspartate Amino Transferase 11 U/L (5-31); Blood Urea Nitrogen 16 mg/dL (9-16); Calcium 9.7 mg/dL (8.4-10.2); Carbon Dioxide 28 mmol/L (22-29); Chloride 100 mmol/L (96-108); Creatinine Clr Calc Pharmacy 125.1; Estimated Glomerular Filt Rate > 60; Magnesium 2.2 mg/dL (1.6-2.6); Potassium 4.1 mmol/L (3.3-5.1); Sodium 137 mmol/L (135-145); Total Protein 7.0 g/dL (6.5-8.0)
[2025-05-30 09:33] VITALS: BP 112/59; PULSE 80
[2025-05-30] MEDS: dilTIAZem HCL CD 120 MG CAP.ER.DEG PO (09:33)
--- NOTE | 2025-05-30 09:33 | P.PNGS_ITS ---
Subjective Subjective Date of Service: 05/31/25 Interval history: Denies abdominal pain Tolerating diet No nausea or vomiting Has bowel movements Physical Exam 2 Vital Signs: Vital Signs: Last Vital Signs Temp 97.0 F 05/30/25 04:00 Pulse 57 05/30/25 04:00 Resp 16 05/30/25 04:00 BP 139/63 05/30/25 04:00 Pulse Ox 94 05/30/25 04:00 O2 Del Method Room Air 05/30/25 04:00 O2 Flow Rate 1 05/21/25 03:08 BMI result Body Mass Index 35.6 Const: Other: Has some tremors General: comfortable and no acute distress Resp: Effort & Inspection: normal respiratory effort Cardio: Rate: regular rate GI: Palpation (GI): Soft to palpation, not firm, nontender and no guarding Objective Data Active Medications Benzocaine (Throat Lozenge, Medicated Lozenge) 1 lozenge MUCOUS MEM Q2H PRN PRN Reason: Sore Throat Last Admin: 05/23/25 00:14 Dose: 1 lozenge Documented By: LUZ Calcium Carbonate (Calcium Carbonate 750 Mg Tab.Chew) 750 mg PO Q4H PRN PRN Reason: Heartburn Clonazepam (Clonazepam 0.5 Mg Tablet) 0.5 mg PO DAILY LAXMI Last Admin: 05/29/25 08:18 Dose: 0.5 mg Documented By: JOSE Clonazepam (Clonazepam 1 Mg Tablet) 1 mg PO BEDTIME LAXMI Last Admin: 05/29/25 21:28 Dose: 1 mg Documented By: NELSON Clozapine (Clozapine 25 Mg Tablet) 100 mg PO BEDTIME LAXMI; Taper Stop: 06/06/25 20:59 Last Admin: 05/29/25 21:28 Dose: 100 mg Documented By: NELSON Clozapine (Clozapine 100 Mg Tablet) 300 mg PO BEDTIME LAXMI Diltiazem HCl (Diltiazem Hcl Cd 120 Mg Cap.Er.Deg) 120 mg PO DAILY LAXMI; Protocol Last Admin: 05/29/25 08:19 Dose: 120 mg Documented By: JOSE Divalproex Sodium (Divalproex Sodium Sprinkles 125 Mg Cap.DrBenitaSpr) 750 mg PO BID LAXMI Last Admin: 05/29/25 21:28 Dose: 750 mg Documented By: NELSON Docusate Sodium (Docusate Sodium 100 Mg Capsule) 100 mg PO BID [facility] Last Admin: 05/29/25 21:28 Dose: 100 mg Documented By: NELSON Enoxaparin Sodium (Enoxaparin Sodium 40 Mg/0.4 Ml Syringe) 40 mg SUBCUT Q24H LAXMI On Hold: 05/24/25 01:09 Last Admin: 05/23/25 12:43 Dose: 40 mg Documented By: CARLOS Fluoxetine HCl (Fluoxetine Hcl 10 Mg Capsule) 30 mg PO DAILY LAXMI On Hold: 05/27/25 09:44 Last Admin: 05/27/25 08:40 Dose: 30 mg Documented By: JANNETH Hydralazine HCl (Hydralazine Hcl 20 Mg/Ml Vial) 5 mg IVPUSH Q6H PRN; Protocol PRN Reason: SBP > 180 Last Admin: 05/26/25 23:34 Dose: 5 mg Documented By: ROBIN Nutrition (Parenteral) (Parenteral Nutrition) 1,680 mls @ 70 mls/hr IV .Q24H LAXMI; Protocol Stop: 05/30/25 20:59 Last Admin: 05/29/25 22:20 Dose: 70 mls/hr Documented By: REGINALDO Lactulose (Lactulose 20 Gm/30 Ml Solution) 30 gm PO DAILY [facility] Last Admin: 05/29/25 08:19 Dose: 30 gm Documented By: JOSE Lisinopril (Lisinopril 10 Mg Tablet) 10 mg PO DAILY [facility]; Protocol Last Admin: 05/29/25 08:18 Dose: 10 mg Documented By: JOSE Magnesium Hydroxide (Milk Of Magnesia 30 Ml Oral.Susp) 30 ml PO DAILY PRN PRN Reason: Constipation Melatonin (Melatonin 3 Mg Tablet) 6 mg PO BEDTIME PRN PRN Reason: Insomnia Meropenem (Meropenem 1 Gm Vial) 1 gm IVPUSH Q8H [facility] Stop: 06/02/25 10:59 Last Admin: 05/30/25 03:58 Dose: 1 gm Documented By: DENISSE Omeprazole (Omeprazole 20 Mg Capsule.Dr) 20 mg PO BID@0630,1630 [facility] Last Admin: 05/30/25 06:40 Dose: 20 mg Documented By: DENISSE Ondansetron HCl (Ondansetron Hcl 4 Mg/2 Ml Vial) 4 mg IVPUSH Q6H PRN PRN Reason: Nausea and Vomiting Last Admin: 05/28/25 08:38 Dose: 4 mg Documented By: JOSE Pharmacy Consult (Consult Rx Parenteral Nutrition Ordering) 1 each MISCELLANE DAILY PRN PRN Reason: Consult order Polyethylene Glycol (Polyethylene Glycol 3350 17 Gm Powd.Pack) 17 gm PO DAILY [facility] Last Admin: 05/29/25 08:18 Dose: 17 gm Documented By: JOSE Sodium Chloride (0.9 % Sodium Chloride Flush 3 Ml Syringe) 3 ml IVFLUSH QSHIFT [facility] Last Admin: 05/30/25 03:57 Dose: 3 ml Documented By: DENISSE Labs 05/30/25 08:15 05/30/25 08:15 Labs: Laboratory Results - last 24 hr 05/30/25 05/30/25 05/30/25 08:15 08:15 08:15 MCV 80.1 MCH 24.9 L MCHC 31.1 RDW 21.7 H Plt Count 349 MPV 11.5 Immature Gran % (Auto) 0.4 Neut % (Auto) 79.4 H Lymph % (Auto) 12.3 L [place] % (Auto) 6.4 Eos % (Auto) 1.2 Baso % (Auto) 0.3 Lymph # (Auto) 1.6 [place] # (Auto) 0.8 Eos # (Auto) 0.2 Baso # (Auto) 0.0 Abs Immat Gran (auto) 0.05 H Absolute Neuts (auto) 10.2 H Absolute Nucleated RBC 0.000 Nucleated RBC % (auto) 0.0 Anion Gap 13 14 Estim Creat Clear Calc 125.1 130.6 Estimated GFR > 60 Random Glucose Calcium Phosphorus Magnesium Total Bilirubin AST ALT Alkaline Phosphatase Total Protein Albumin 05/30/25 05/30/25 05/30/25 08:15 08:15 08:15 MCV MCH MCHC RDW Plt Count MPV Immature Gran % (Auto) Neut % (Auto) Lymph % (Auto) [place] % (Auto) Eos % (Auto) Baso % (Auto) Lymph # (Auto) [place] # (Auto) Eos # (Auto) Baso # (Auto) Abs Immat Gran (auto) Absolute Neuts (auto) Absolute Nucleated RBC Nucleated RBC % (auto) Anion Gap Estim Creat Clear Calc Estimated GFR > 60 Random Glucose 122 H 123 H Calcium 9.7 9.7 Phosphorus 4.8 H Magnesium 2.2 Total Bilirubin 0.7 AST 11 ALT 14 Alkaline Phosphatase 86 Total Protein 7.0 Albumin 3.9 Procedures Date of Service Date of Service: 05/31/25 Progress Note: A&P Assessment and plan (1) Sigmoid volvulus: Status: Acute Assessment and Plan: No abdominal pain Tolerating diet Has good BMs Abdomen is soft and benign Refusing surgical intervention If she appears to have been ready to be discharged - she prefers to be able to go back home to foster care We will discuss discharge plans with case management rn We will have hospitalist service assist with discharge meds including for Clozaril Time Spent With Patient Time: Total time managing care of this patient today ____ minutes. Quality Stroke Does the patient have a stroke diagnosis?: No VTE Prior VTE?: No VTE Risk Level:: Surgical - moderate VTE Device Contraindication: N/A - Device Ordered VTE Drug Contraindication: Treatment Not Tolerated
[2025-05-30] MEDS: Divalproex Sodium Sprinkles 125 MG CAP.DR.SPR 750 MG PO (09:35)
[2025-05-30] MEDS: Throat Lozenge, Medicated LOZENGE 1 LOZENGE MUCOUS MEM (09:41)
--- NOTE | 2025-05-30 11:53 | PM.EVENT ---
Event Note Date of Service: 05/30/25 Event Note: Patient continues to do well She is insisting on going home and not to rehab Evaluated by psych and PT and deemed to be to be home Patient continues to tolerate diet good oral intake DC PPN Having bowel movements Abdomen is soft, benign nontender Discussed with the hospitalist service - okay to DC home on titrating dose of clozapine Discussed at length with her caregiver Iris - she is familiar with titrating dose of clozapine Patient known to have schizophrenia, frequent tremors as baseline She does understand the risk of recurrence of volvulus She appears to be competent to make decisions Time Spent With Patient Time: Total time managing care of this patient today ____ minutes.
--- NOTE | 2025-05-30 12:07 | MHC.CM.PN ---
Addendum entered by Layla Arenas 06/01/25 15:02: PT SCHEDULED TO DC TO [facility] AT 1500 HOURS VIA [facility] Addendum entered by Layla Arenas 06/01/25 11:49: MDS AND LEVEL ONE COMPLETED AND FAXED TO [facility] AND [facility] AWAITING REVIEW BY SNF AND FAX CONFIRMATION FOR [facility] PT WILL DC TO [facility] TODAY VIA BLS Addendum entered by Layla Arenas 05/31/25 15:43: [facility] IS OFFERING FOR ADMISSION TOMORROW PENDING COMPLETED MDS ALONG WITH FAX CONFIRMATION AND LEVEL 1. Addendum entered by Layla Arenas 05/31/25 09:12: [facility] IS OFFERING A BED, HOWEVER THEY WILL NEED ELDER CARE APPROVAL PRIOR TO ADMISSION, WHICH WILL BE UNAVAILABLE BEFORE SUNDAY Addendum entered by Layla Arenas 05/31/25 08:41: PT HAS HAD NO BED OFFERS REFERRAL EXPANDED Addendum entered by Layla Arenas 05/30/25 14:54: PT NOW AGREEABLE TO STR SHE REPORTS [facility] IS PREFERRED, HOWEVER THEY HAVE NOT OFFERED A BED REFERRAL EXPANDED Original Note: PT WILL DC HOME TODAY WITH RESUMPTION OF [facility]ULT [facility] [employer] [facility] AND [facility] [employer] [facility] [employer] [facility] TO TRANSPORT
--- NOTE | 2025-05-30 12:54 | PM.EVENT ---
Event Note Date of Service: 05/31/25 Event Note: The patient now says that she wants to go to short term rehab She says that she has changed her mind after talking to Lanny I told her that there were no guarantee we can get her a bed this weekend I have discussed this with the case management and we will see if we can get her a bed Time Spent With Patient Time: Total time managing care of this patient today ____ minutes.
--- NOTE | 2025-05-30 13:22 | P.DS_ITS ---
DS: Providers Provider Date of Service: 06/01/25 Date of admission: 05/19/25 11:18 Date of discharge: 06/01/25 Primary care physician: Brenna Brower MD Consults: 05/19/25 11:56 Consult to Gastroenterology Stat Consulting Provider: Hugo Mendez Reason for consultation: sigmoid volvulus 05/24/25 06:16 Consult to Gastroenterology Routine Consulting Provider: Hardy Damico Reason for consultation: GI bleeding Has provider been notified: Yes 05/27/25 13:47 Consult to Infectious Diseases Routine Consulting Provider: [facility] Reason for consultation: UTI 05/29/25 08:28 Inpt CARE Team Crisis Consult Routine Comment: not sure if capable of Clozapine titration at home Reason for consultation: assess if needs inpt in order to get back on home med regimen DS: Diagnosis Discharge Diagnosis (1) Volvulus of colon: Status: Acute DS: Summary Hospital Course Hospital Course: [age] year old female admitted by Dr. Holland on 05/19/2025 because of the abdominal distention. Her CAT scan was suggestive of sigmoid volvulus. She underwent sigmoidoscopy and detorsion by Dr. Mendez on 05/20/2025. She tolerated this has well and her symptoms improved. She had an NG-tube in place because of this has that high output. However, her abdominal exam remained benign. In view of the persistent high output, started her on PPN as she refused PICC line for TPN placement. She had remained stable and comfortable despite the presence of the NG tube. However, she was noted to be lethargic on May 23, 2025. She was transferred to telemetry. She was transfused because of a hemoglobin of 6.2. Despite some small amounts of blood under NG-tube, she really did not have any significant bleeding She remained stable despite being tremors and waxing and waning of her mental status. She tolerated clamping every NG-tube on May 27 and this was eventually removed. She was started on clear liquids and her diet was advanced. She continued to have good bowel movements. She has had no abdominal pain. She denied any nausea or vomiting The hospitalist service has been following her. Her Clozapine was restarted. Her PPN was discontinued on May 30. She initially had agreed to go home initially but changed her mind after talking to her caregiver and says that she was willing to go to a short-term rehab institution. Her rehab stay is expected to be less than 30 days. Status at Discharge Functional status at discharge: uses cane/walker Time Attestation Discharge Coordination Time (in mins): >30 minutes Quality: Safe Use of Opioids Does Pt have an Active Cancer Diagnosis on the Problem List?: No Quality: Stroke Does the patient have a stroke diagnosis?: No Physical Exam Vital Signs: Vital Signs: Last Vital Signs Temp 97.0 F 05/30/25 04:00 Pulse 80 05/30/25 09:33 Resp 16 05/30/25 04:00 BP 112/59 L 05/30/25 09:33 Pulse Ox 94 05/30/25 04:00 O2 Del Method Room Air 05/30/25 04:00 O2 Flow Rate 1 05/21/25 03:08 BMI result Body Mass Index 35.6 Const: Other: Morbidly obese General: comfortable and no acute distress Resp: Effort & Inspection: normal respiratory effort Cardio: Rate: regular rate GI: Palpation (GI): Soft to palpation, not firm, nontender and no guarding DS: Data Data Completed and Pending Completed studies during hospitalization [Text1]: Procedures Excision of Duodenum, Via Natural or Artificial Opening Endoscopic, Diagnostic (03/31/24) Excision of Stomach, Pylorus, Via Natural or Artificial Opening Endoscopic, Diagnostic (03/31/24) Inspection of Lower Intestinal Tract, Via Natural or Artificial Opening Endoscopic (03/31/24) Transfusion of Nonautologous Red Blood Cells into Peripheral Vein, Percutaneous Approach (03/31/24) Labs on day of discharge: Laboratory Results - last 24 hr 05/30/25 05/30/25 05/30/25 08:15 08:15 08:15 WBC 12.8 H RBC 4.73 Hgb 11.8 L Hct 37.9 MCV 80.1 MCH 24.9 L MCHC 31.1 RDW 21.7 H Plt Count 349 MPV 11.5 Immature Gran % (Auto) 0.4 Neut % (Auto) 79.4 H Lymph % (Auto) 12.3 L [place] % (Auto) 6.4 Eos % (Auto) 1.2 Baso % (Auto) 0.3 Lymph # (Auto) 1.6 [place] # (Auto) 0.8 Eos # (Auto) 0.2 Baso # (Auto) 0.0 Abs Immat Gran (auto) 0.05 H Absolute Neuts (auto) 10.2 H Absolute Nucleated RBC 0.000 Nucleated RBC % (auto) 0.0 Sodium 137 137 Potassium 4.1 4.1 Chloride 100 Carbon Dioxide Anion Gap BUN Creatinine Estim Creat Clear Calc Estimated GFR Random Glucose Calcium Phosphorus Magnesium Total Bilirubin AST ALT Alkaline Phosphatase Total Protein Albumin 05/30/25 05/30/25 05/30/25 08:15 08:15 08:15 WBC RBC Hgb Hct MCV MCH MCHC RDW Plt Count MPV Immature Gran % (Auto) Neut % (Auto) Lymph % (Auto) [place] % (Auto) Eos % (Auto) Baso % (Auto) Lymph # (Auto) [place] # (Auto) Eos # (Auto) Baso # (Auto) Abs Immat Gran (auto) Absolute Neuts (auto) Absolute Nucleated RBC Nucleated RBC % (auto) Sodium Potassium Chloride 100 Carbon Dioxide 28 27 Anion Gap 13 14 BUN 16 Creatinine Estim Creat Clear Calc Estimated GFR Random Glucose Calcium Phosphorus Magnesium Total Bilirubin AST ALT Alkaline Phosphatase Total Protein Albumin 05/30/25 05/30/25 05/30/25 08:15 08:15 08:15 WBC RBC Hgb Hct MCV MCH MCHC RDW Plt Count MPV Immature Gran % (Auto) Neut % (Auto) Lymph % (Auto) [place] % (Auto) Eos % (Auto) Baso % (Auto) Lymph # (Auto) [place] # (Auto) Eos # (Auto) Baso # (Auto) Abs Immat Gran (auto) Absolute Neuts (auto) Absolute Nucleated RBC Nucleated RBC % (auto) Sodium Potassium Chloride Carbon Dioxide Anion Gap BUN 16 Creatinine 0.48 L 0.46 L Estim Creat Clear Calc 125.1 130.6 Estimated GFR > 60 Random Glucose Calcium Phosphorus Magnesium Total Bilirubin AST ALT Alkaline Phosphatase Total Protein Albumin 05/30/25 05/30/25 05/30/25 08:15 08:15 08:15 WBC RBC Hgb Hct MCV MCH MCHC RDW Plt Count MPV Immature Gran % (Auto) Neut % (Auto) Lymph % (Auto) [place] % (Auto) Eos % (Auto) Baso % (Auto) Lymph # (Auto) [place] # (Auto) Eos # (Auto) Baso # (Auto) Abs Immat Gran (auto) Absolute Neuts (auto) Absolute Nucleated RBC Nucleated RBC % (auto) Sodium Potassium Chloride Carbon Dioxide Anion Gap BUN Creatinine Estim Creat Clear Calc Estimated GFR > 60 Random Glucose 122 H 123 H Calcium 9.7 9.7 Phosphorus 4.8 H Magnesium 2.2 Total Bilirubin 0.7 AST 11 ALT 14 Alkaline Phosphatase 86 Total Protein 7.0 Albumin 3.9 Discharge Plan Discharge Anticipated Discharge Date/Time: 06/01/25 08:41 Patient Disposition: Xfer Inpatient Rehab Fac Discharge Diagnosis: Volvulus of the sigmoid Referrals: [facility] [Other] - 1 Week Brenna Liriano MD [Primary Care Provider, Internal Medicine] - 1 Week Discharge Medications: Continued albuterol sulfate [Ventolin HFA] 90 mcg/actuation HFA aerosol inhaler 2 puff INHALATION Q4-6H PRN (Reason: Shortness Of Breath Or Wheezing) sucralfate 1 gram tablet 1 g PO TID tramadol 50 mg tablet 50 mg PO Q12H PRN (Reason: Severe Pain (Scale Score 7-10)) clonazepam 1 mg tablet 1 mg PO BEDTIME Qty: 30 0RF montelukast 10 mg tablet 10 mg PO DAILY Qty: 30 0RF diltiazem HCl 120 mg capsule,extended release 12 hr 120 mg PO DAILY fluoxetine 10 mg capsule 30 mg PO DAILY polyethylene glycol 3350 [Miralax] 17 gram/dose powder 17 g PO TID PRN (Reason: Constipation) metformin 500 mg tablet extended release 24 hr 500 mg PO BIDWM albuterol sulfate 2.5 mg /3 mL (0.083 %) solution for nebulization 2.5 mg inhalation Q6H PRN (Reason: wheezing) ferrous sulfate 325 mg (65 mg iron) tablet,delayed release (DR/EC) 325 mg PO Q2D sennosides [senna] 8.6 mg tablet 17.2 mg PO BEDTIME PRN (Reason: constipation) clonazepam 0.5 mg tablet 0.5 mg PO DAILY lisinopril 10 mg tablet 10 mg PO DAILY atorvastatin 40 mg tablet 40 mg PO BEDTIME omeprazole 20 mg capsule,delayed release(DR/EC) 20 mg PO BID@0630,1630 loratadine 10 mg tablet 10 mg PO DAILY docusate sodium 100 mg capsule 100 mg PO BID PRN (Reason: Constipation) clozapine 100 mg tablet 300 mg PO BEDTIME Patient Comments: TDD = 325 MG divalproex 250 mg tablet extended release 24 hr 250 mg PO BEDTIME Rx Instructions: TDD= 1250 MG lactulose 10 gram/15 mL solution 45 ml PO DAILY divalproex 500 mg tablet extended release 24 hr 1,000 mg PO BEDTIME Discharge Orders: Discharge Order (Routine); Ordered 06/01/25 Ordered By: Errol Medina Diet: Advance to usual diet Activity on Discharge: As tolerated Stand Alone Forms: Patient Portal Discharge page Print Language: Icelandic Activity Restrictions/Additional Instructions: Increase clozapine according to the following schedule: 05/30: 125 mg at bedtime 05/31: 150 mg at bedtime 06/01: 175 mg at bedtime 06/02: 200 mg at bedtime 06/03: 225 mg at bedtime 06/04: 250 mg at bedtime 06/05: 275 mg at bedtime 06/06 and afterwards: 300 mg at bedtime Care Plan Goals: Returned to baseline Health Concerns: Schizophrenia Recent volvulus Plan of Treatment: Titrating dose of clozapine Assessment: Doing very well
[2025-05-30 15:48] VITALS: PULSE 88; RESP 18; TEMP 36; O2SAT 95
[2025-05-30] MEDS: Parenteral Nutrition 1,680 ML 70 ML IV (22:35)
[2025-05-31] MEDS: Divalproex Sodium Sprinkles 125 MG CAP.DR.SPR 750 MG PO ×3 (00:29→20:07)
--- NOTE | 2025-05-31 06:38 | PC.NURSE ---
(R) lower arm IV site running PPN infiltrated overnight. Pt then pulled out (R) AC IV. Charge nurse recommended contacting (Gladys) to see if pt required a new IV access as pt is due to be D/C'd today and it has been difficult to obtain IV access on pt throughout her stay (pt screaming in pain). MD Graham contacted. Provider read the message via Bruce Text but did not respond. Per charge nurse, pt left without access. AM RN notified during morning report.
[2025-05-31 07:28] VITALS: BP 105/55; PULSE 76; RESP 20; TEMP 36.5; O2SAT 96
--- NOTE | 2025-05-31 10:07 | PM.PNGS ---
Subjective Subjective Date of Service: 06/01/25 Interval history: No events overnight Passing flatus and BMs Tolerating diet No abdominal pain Physical Exam Vital Signs: Vital Signs: Last Vital Signs Temp 97.7 F 05/31/25 07:28 Pulse 76 05/31/25 07:28 Resp 20 05/31/25 07:28 BP 105/55 L 05/31/25 07:28 Pulse Ox 96 05/31/25 07:28 O2 Del Method Room Air 05/31/25 07:28 O2 Flow Rate 1 05/21/25 03:08 BMI result Body Mass Index 35.6 Const: Other: Mental status as baseline General: comfortable and no acute distress Resp: Effort & Inspection: normal respiratory effort Cardio: Rate: regular rate GI: Palpation (GI): Soft to palpation, not firm, nontender and no guarding Objective Data Active Medications Acetaminophen (Acetaminophen 325 Mg Tablet) 650 mg PO Q6H PRN PRN Reason: pain, mild-moderate Benzocaine (Throat Lozenge, Medicated Lozenge) 1 lozenge MUCOUS MEM Q2H PRN PRN Reason: Sore Throat Last Admin: 05/30/25 09:41 Dose: 1 lozenge Documented By: ALHAJI Calcium Carbonate (Calcium Carbonate 750 Mg Tab.Chew) 750 mg PO Q4H PRN PRN Reason: Heartburn Clonazepam (Clonazepam 0.5 Mg Tablet) 0.5 mg PO DAILY LAXMI Last Admin: 05/30/25 09:35 Dose: 0.5 mg Documented By: ALHAJI Clonazepam (Clonazepam 1 Mg Tablet) 1 mg PO BEDTIME LAXMI Last Admin: 05/31/25 00:28 Dose: 1 mg Documented By: ROBIN Clozapine (Clozapine 25 Mg Tablet) 125 mg PO BEDTIME LAXMI; Taper Stop: 06/06/25 20:59 Last Admin: 05/31/25 00:28 Dose: 125 mg Documented By: ROBIN Clozapine (Clozapine 100 Mg Tablet) 300 mg PO BEDTIME LAXMI Diltiazem HCl (Diltiazem Hcl Cd 120 Mg Cap.Er.Deg) 120 mg PO DAILY LAXMI; Protocol Last Admin: 05/30/25 09:33 Dose: 120 mg Documented By: ALHAJI Divalproex Sodium (Divalproex Sodium Sprinkles 125 Mg Cap.Dr.Spr) 750 mg PO BID LAXMI Last Admin: 05/31/25 00:29 Dose: 750 mg Documented By: ROBIN Docusate Sodium (Docusate Sodium 100 Mg Capsule) 100 mg PO BID [facility] Last Admin: 05/31/25 00:29 Dose: 100 mg Documented By: ROBIN Enoxaparin Sodium (Enoxaparin Sodium 40 Mg/0.4 Ml Syringe) 40 mg SUBCUT Q24H LAXMI On Hold: 05/24/25 01:09 Last Admin: 05/23/25 12:43 Dose: 40 mg Documented By: CARLOS Fluoxetine HCl (Fluoxetine Hcl 10 Mg Capsule) 30 mg PO DAILY [facility] On Hold: 05/27/25 09:44 Last Admin: 05/27/25 08:40 Dose: 30 mg Documented By: JANNETH Hydralazine HCl (Hydralazine Hcl 20 Mg/Ml Vial) 5 mg IVPUSH Q6H PRN; Protocol PRN Reason: SBP > 180 Last Admin: 05/26/25 23:34 Dose: 5 mg Documented By: ROBIN Nutrition (Parenteral) (Parenteral Nutrition) 1,680 mls @ 70 mls/hr IV .Q24H [facility]; Protocol Stop: 05/31/25 20:59 Last Admin: 05/30/25 22:35 Dose: 70 mls/hr Documented By: ROBIN Lactulose (Lactulose 20 Gm/30 Ml Solution) 30 gm PO DAILY [facility] Last Admin: 05/30/25 09:41 Dose: 30 gm Documented By: ALHAJI Lisinopril (Lisinopril 10 Mg Tablet) 10 mg PO DAILY [facility]; Protocol Last Admin: 05/30/25 09:35 Dose: 10 mg Documented By: ALHAJI Magnesium Hydroxide (Milk Of Magnesia 30 Ml Oral.Susp) 30 ml PO DAILY PRN PRN Reason: Constipation Melatonin (Melatonin 3 Mg Tablet) 6 mg PO BEDTIME PRN PRN Reason: Insomnia Last Admin: 05/31/25 00:29 Dose: 6 mg Documented By: ROBIN Meropenem (Meropenem 1 Gm Vial) 1 gm IVPUSH Q8H LAXMI Stop: 06/02/25 10:59 Last Admin: 05/31/25 02:51 Dose: 1 gm Documented By: ROBIN Omeprazole (Omeprazole 20 Mg Capsule.) 20 mg PO BID@0630,1630 [facility] Last Admin: 05/31/25 06:25 Dose: Not Given Documented By: ROBIN Non-Admin Reason: Patient Refused Ondansetron HCl (Ondansetron Hcl 4 Mg/2 Ml Vial) 4 mg IVPUSH Q6H PRN PRN Reason: Nausea and Vomiting Last Admin: 05/28/25 08:38 Dose: 4 mg Documented By: JOSE Pharmacy Consult (Consult Rx Parenteral Nutrition Ordering) 1 each MISCELLANE DAILY PRN PRN Reason: Consult order Polyethylene Glycol (Polyethylene Glycol 3350 17 Gm Powd.Pack) 17 gm PO DAILY [facility] Last Admin: 05/30/25 09:33 Dose: 17 gm Documented By: ALHAJI Sodium Chloride (0.9 % Sodium Chloride Flush 3 Ml Syringe) 3 ml IVFLUSH QSHIFT [facility] Last Admin: 05/30/25 22:35 Dose: 3 ml Documented By: ROBIN Labs 05/30/25 08:15 06/01/25 06:17 Procedures Date of Service Date of Service: 06/01/25 Progress Note: A&P Assessment and plan (1) Volvulus of colon: Status: Acute Assessment and Plan: Has been tolerating diet for many days now Has a good BMs Abdomen soft, benign No complaints of abdominal pain since admission She initially was being [facility] but she change her mind after discussing this with her caregiver She says she is willing to go to short-term rehab We are awaiting for a bed for her She has been doing well and seems to in her baseline state of health for the past several days She has known schizophrenia and tremors with waxing and waning of symptoms I have been updating the hospitalist about the above Time Spent With Patient Time: Total time managing care of this patient today ____ minutes. Quality Stroke Does the patient have a stroke diagnosis?: No VTE Prior VTE?: No VTE Risk Level:: Surgical - moderate VTE Device Contraindication: N/A - Device Ordered VTE Drug Contraindication: Treatment Not Tolerated
[2025-05-31 11:06] LABS: Alanine Aminotransferase 13 U/L (0-31); Albumin Level 3.8 g/dL (3.5-5.0); Alkaline Phosphatase 80 U/L (39-117); Anion Gap 14 (12-20); Aspartate Amino Transferase 13 U/L (5-31); Blood Urea Nitrogen 15 mg/dL (9-16); Calcium 9.3 mg/dL (8.4-10.2); Carbon Dioxide 27 mmol/L (22-29); Chloride 100 mmol/L (96-108); Creatinine Clr Calc Pharmacy 143.1; Estimated Glomerular Filt Rate > 60; Magnesium 2.0 mg/dL (1.6-2.6); Potassium 4.0 mmol/L (3.3-5.1); Sodium 137 mmol/L (135-145); Total Protein 6.6 g/dL (6.5-8.0)
[2025-05-31] MEDS: dilTIAZem HCL CD 120 MG CAP.ER.DEG PO (11:50)
[2025-05-31 11:59] VITALS: BP 140/61; PULSE 104; RESP 18; TEMP 36.2; O2SAT 96
[2025-05-31 15:21] VITALS: BP 119/57; PULSE 104; RESP 16; TEMP 36; O2SAT 94
[2025-05-31 19:27] VITALS: BP 111/66; PULSE 96; RESP 18; TEMP 36.9; O2SAT 97
[2025-06-01 02:29] VITALS: BP 100/52; PULSE 75; RESP 16; TEMP 36.2; O2SAT 95
[2025-06-01 03:39] VITALS: BP 103/51; PULSE 70; RESP 18; TEMP 36.7; O2SAT 97
[2025-06-01 06:42] LABS: Alanine Aminotransferase 17 U/L (0-31); Albumin Level 3.7 g/dL (3.5-5.0); Alkaline Phosphatase 89 U/L (39-117); Anion Gap 13 (12-20); Aspartate Amino Transferase 19 U/L (5-31); Blood Urea Nitrogen 16 mg/dL (9-16); Calcium 9.0 mg/dL (8.4-10.2); Carbon Dioxide 27 mmol/L (22-29); Chloride 102 mmol/L (96-108); Creatinine Clr Calc Pharmacy 136.5; Estimated Glomerular Filt Rate > 60; Magnesium 2.1 mg/dL (1.6-2.6); Potassium 4.1 mmol/L (3.3-5.1); Sodium 138 mmol/L (135-145); Total Protein 6.5 g/dL (6.5-8.0)
[2025-06-01 08:26] VITALS: BP 100/60; PULSE 85; RESP 18; TEMP 36.1; O2SAT 95
[2025-06-01] MEDS: dilTIAZem HCL CD 120 MG CAP.ER.DEG PO (08:33)
[2025-06-01] MEDS: Divalproex Sodium Sprinkles 125 MG CAP.DR.SPR 750 MG PO (08:33)
--- NOTE | 2025-06-01 08:43 | P.PNGS_ITS ---
Subjective Subjective Date of Service: 06/01/25 Interval history: Patient reports be ready for discharge to rehab today. Denies any new complaints. Physical Exam 2 Vital Signs: Vital Signs: Last Vital Signs Temp 97.0 F 06/01/25 08:26 Pulse 85 06/01/25 08:26 Resp 18 06/01/25 08:26 BP 100/60 06/01/25 08:26 Pulse Ox 95 06/01/25 08:26 O2 Del Method Room Air 06/01/25 08:26 O2 Flow Rate 1 05/21/25 03:08 BMI result Body Mass Index 35.6 Const: Other: Mental status as baseline General: comfortable and no acute distress Resp: Effort & Inspection: normal respiratory effort Cardio: Rate: regular rate GI: Palpation (GI): Soft to palpation, not firm, nontender and no guarding Objective Data Active Medications Acetaminophen (Acetaminophen 325 Mg Tablet) 650 mg PO Q6H PRN PRN Reason: pain, mild-moderate Benzocaine (Throat Lozenge, Medicated Lozenge) 1 lozenge MUCOUS MEM Q2H PRN PRN Reason: Sore Throat Last Admin: 05/30/25 09:41 Dose: 1 lozenge Documented By: ALHAJI Calcium Carbonate (Calcium Carbonate 750 Mg Tab.Chew) 750 mg PO Q4H PRN PRN Reason: Heartburn Clonazepam (Clonazepam 0.5 Mg Tablet) 0.5 mg PO DAILY [facility] Last Admin: 05/31/25 12:08 Dose: Not Given Documented By: NATHANAEL Non-Admin Reason: No Access Clozapine (Clozapine 25 Mg Tablet) 150 mg PO BEDTIME LAXMI; Taper Stop: 06/06/25 20:59 Last Admin: 05/31/25 20:06 Dose: 150 mg Documented By: NATASHA Clozapine (Clozapine 100 Mg Tablet) 300 mg PO BEDTIME LAXMI Diltiazem HCl (Diltiazem Hcl Cd 120 Mg Cap.Er.Deg) 120 mg PO DAILY [facility]; Protocol Last Admin: 06/01/25 08:33 Dose: 120 mg Documented By: NATHANAEL Divalproex Sodium (Divalproex Sodium Sprinkles 125 Mg Cap.Dr.Spr) 750 mg PO BID [facility]XMI Last Admin: 06/01/25 08:33 Dose: 750 mg Documented By: NATHANAEL Docusate Sodium (Docusate Sodium 100 Mg Capsule) 100 mg PO BID [facility] Last Admin: 06/01/25 08:33 Dose: 100 mg Documented By: NATHANAEL Enoxaparin Sodium (Enoxaparin Sodium 40 Mg/0.4 Ml Syringe) 40 mg SUBCUT Q24H [facility] On Hold: 05/24/25 01:09 Last Admin: 05/23/25 12:43 Dose: 40 mg Documented By: CARLOS Fluoxetine HCl (Fluoxetine Hcl 10 Mg Capsule) 30 mg PO DAILY [facility] On Hold: 05/27/25 09:44 Last Admin: 05/27/25 08:40 Dose: 30 mg Documented By: JANNETH Hydralazine HCl (Hydralazine Hcl 20 Mg/Ml Vial) 5 mg IVPUSH Q6H PRN; Protocol PRN Reason: SBP > 180 Last Admin: 05/26/25 23:34 Dose: 5 mg Documented By: ROBIN Lactulose (Lactulose 20 Gm/30 Ml Solution) 30 gm PO DAILY [facility] Last Admin: 06/01/25 08:33 Dose: 30 gm Documented By: NATHANAEL Lisinopril (Lisinopril 10 Mg Tablet) 10 mg PO DAILY [facility]; Protocol Last Admin: 06/01/25 08:33 Dose: 10 mg Documented By: NATHANAEL Magnesium Hydroxide (Milk Of Magnesia 30 Ml Oral.Susp) 30 ml PO DAILY PRN PRN Reason: Constipation Melatonin (Melatonin 3 Mg Tablet) 6 mg PO BEDTIME PRN PRN Reason: Insomnia Last Admin: 05/31/25 20:06 Dose: 6 mg Documented By: NATASHA Meropenem (Meropenem 1 Gm Vial) 1 gm IVPUSH Q8H [facility] Stop: 06/02/25 10:59 Last Admin: 06/01/25 01:36 Dose: Not Given Documented By: NATASHA Non-Admin Reason: no iv access-pt. refused iv Omeprazole (Omeprazole 20 Mg Capsule.) 20 mg PO BID@0630,1630 [facility] Last Admin: 06/01/25 07:46 Dose: Not Given Documented By: NATASHA Non-Admin Reason: Patient Refused Ondansetron HCl (Ondansetron Hcl 4 Mg/2 Ml Vial) 4 mg IVPUSH Q6H PRN PRN Reason: Nausea and Vomiting Last Admin: 05/28/25 08:38 Dose: 4 mg Documented By: JOSE Polyethylene Glycol (Polyethylene Glycol 3350 17 Gm Powd.Pack) 17 gm PO DAILY [facility] Last Admin: 06/01/25 08:33 Dose: 17 gm Documented By: NATHANAEL Sodium Chloride (0.9 % Sodium Chloride Flush 3 Ml Syringe) 3 ml IVFLUSH QSHIFT [facility] Last Admin: 06/01/25 08:37 Dose: Not Given Documented By: NATHANAEL Non-Admin Reason: No Access Labs 05/30/25 08:15 06/01/25 06:17 Labs: Laboratory Results - last 24 hr 05/31/25 06/01/25 10:17 06:17 Hold Purple Top SEE NOTE Anion Gap 14 13 Estim Creat Clear Calc 143.1 136.5 Estimated GFR > 60 > 60 Random Glucose 125 H 113 Calcium 9.3 9.0 Phosphorus 3.5 3.8 Magnesium 2.0 2.1 Total Bilirubin 0.5 0.8 AST 13 19 ALT 13 17 Alkaline Phosphatase 80 89 Total Protein 6.6 6.5 Albumin 3.8 3.7 Procedures Date of Service Date of Service: 06/01/25 Progress Note: A&P Assessment and plan (1) Volvulus of colon: Status: Acute Assessment and Plan: 59-year-old female patient presenting with sigmoid volvulus, corrected endoscopically. Patient has been tolerating diet for several days with good bowel movements and no complaints of abdominal pain. She is awaiting transfer to short-term rehab later today. She will follow up with her primary care as an outpatient. Time Spent With Patient Time: Total time managing care of this patient today ____ minutes. Quality Stroke Does the patient have a stroke diagnosis?: No VTE Prior VTE?: No VTE Risk Level:: Surgical - moderate VTE Device Contraindication: N/A - Device Ordered VTE Drug Contraindication: Treatment Not Tolerated
[2025-06-01 11:35] VITALS: BP 128/59; PULSE 91; RESP 20; TEMP 36.2; O2SAT 97
== END 2025-06-01 14:00 | DRG 223 ==
LOC: HO.ED 05-19 09:17 → HO.EDOVER 05-19 11:34 → HO.S3 05-19 16:28 → HO.IMC 05-24 04:18
PROVIDERS: Emergency Medicine; Hospitalist; Internal Medicine; Internal Medicine Gastroenterology; Nurse Practitioner; Nurse Practitioner Acute Care; Nurse Practitioner Family; Admitting Provider Surgery; Emergency Provider Emergency Medicine; PCP Internal Medicine; Visit Provider Surgery
PROC: 0DJD8ZZ Inspection of Lower Intestinal Tract, Via Natural or Artificial Opening Endoscopic (ICD-10-PCS; CPT 45330; principal; 2025-05-19 15:10)
DX: K56.2 Volvulus (principal); Q43.8 Other specified congenital malformations of intestine; B96.20 Unspecified Escherichia coli [E. coli] as the cause of diseases classified elsewhere; E87.5 Hyperkalemia; E11.9 Type 2 diabetes mellitus without complications; D64.9 Anemia, unspecified; Z16.19 Resistance to other specified beta lactam antibiotics; I10 Essential (primary) hypertension; K21.9 Gastro-esophageal reflux disease without esophagitis; F20.9 Schizophrenia, unspecified; K59.89 Other specified functional intestinal disorders; K56.7 Ileus, unspecified; J45.909 Unspecified asthma, uncomplicated; Z62.810 Personal history of physical and sexual abuse in childhood; Z79.84 Long term (current) use of oral hypoglycemic drugs; Z87.891 Personal history of nicotine dependence; Z79.899 Other long term (current) drug therapy
CPT/HCPCS: 36415; 70450; 74018; 74177; 80048; 80053; 81001; 82010; 82040; 82140; 82248; 82271; 82803; 82947; 83605; 83690; 83735; 84100; 84132; 84478; 85025; 85610; 85730; 86850; 86900; 86901; 86923; 87040; 87086; 87088; 87186; 93005; 94640; 97162; 99285; J0131; J0330; J0360; J0613; J0618; J0696; J1171; J1650; J1885; J2003; J2185; J2270; J2405; J2470; J2704; J3010; J3430; J7120; P9016; Q9967; S9485

== ENCOUNTER → 2025-05-19 07:50 | Outpatient (BNV) | payer MEDICAID, SELFPAY | PROVIDERS: Emergency Provider Emergency Medicine; Visit Provider Radiology Diagnostic Radiology | DX: K56.2 Volvulus (principal); Z46.59 Encounter for fitting and adjustment of other gastrointestinal appliance and device | CPT/HCPCS: 74018; 74177 ==

== ENCOUNTER 2025-05-19 11:18 | Outpatient (BNV) | payer MEDICAID, SELFPAY | END 2025-05-25 09:40 | PROVIDERS: Admitting Provider Surgery; Emergency Provider Emergency Medicine; PCP Internal Medicine; Visit Provider Radiology Diagnostic Radiology | DX: R11.0 Nausea (principal) | CPT/HCPCS: 74018 ==

== ENCOUNTER 2025-05-19 11:18 | Outpatient (BNV) | payer MEDICAID, SELFPAY | END 2025-05-24 01:12 | PROVIDERS: Admitting Provider Surgery; Emergency Provider Emergency Medicine; PCP Internal Medicine; Visit Provider Radiology Diagnostic Radiology | DX: R14.0 Abdominal distension (gaseous) (principal); R41.82 Altered mental status, unspecified; I67.82 Cerebral ischemia | CPT/HCPCS: 70450; 74177 ==

== ENCOUNTER 2025-05-19 11:18 | Outpatient (BNV) | payer MEDICAID, SELFPAY | END 2025-05-20 15:57 | PROVIDERS: Admitting Provider Surgery; Emergency Provider Emergency Medicine; PCP Internal Medicine Geriatric Medicine; Visit Provider Internal Medicine | DX: R00.0 Tachycardia, unspecified (principal) | CPT/HCPCS: 93010 ==

== ENCOUNTER 2025-05-19 11:18 | Outpatient (BNV) | payer MEDICAID, SELFPAY | END 2025-05-27 12:25 | PROVIDERS: Admitting Provider Surgery; Emergency Provider Emergency Medicine; PCP Internal Medicine; Visit Provider Radiology Diagnostic Radiology | DX: R14.0 Abdominal distension (gaseous) (principal) | CPT/HCPCS: 74018 ==

== ENCOUNTER 2025-05-19 11:18 | Outpatient (BNV) | payer MEDICAID, SELFPAY | END 2025-05-19 12:57 | PROVIDERS: Admitting Provider Surgery; Emergency Provider Emergency Medicine; Visit Provider Internal Medicine | DX: Z01.810 Encounter for preprocedural cardiovascular examination (principal) | CPT/HCPCS: 93010 ==

== ENCOUNTER → 2025-05-19 11:18 | Outpatient (BNV) | payer MEDICAID, SELFPAY | PROVIDERS: Admitting Provider Surgery; Emergency Provider Emergency Medicine; Visit Provider Internal Medicine Gastroenterology | DX: K56.2 Volvulus (principal) | CPT/HCPCS: 45330; 99223 ==

== ENCOUNTER → 2025-05-19 11:18 | Outpatient (BNV) | payer MEDICAID, SELFPAY | PROVIDERS: Admitting Provider Surgery; Emergency Provider Emergency Medicine; PCP Internal Medicine; Visit Provider Internal Medicine | DX: K56.2 Volvulus (principal); R10.9 Unspecified abdominal pain | CPT/HCPCS: 99222 ==

== ENCOUNTER → 2025-05-19 11:18 | Outpatient (BNV) | payer OTHER, SELFPAY | PROVIDERS: Admitting Provider Surgery; Emergency Provider Emergency Medicine; PCP Internal Medicine; Visit Provider Psychiatry & Neurology Psychiatry | DX: F20.9 Schizophrenia, unspecified (principal); K56.2 Volvulus | CPT/HCPCS: 99232 ==

== ENCOUNTER → 2025-05-19 11:18 | Outpatient (BNV) | payer MEDICAID, SELFPAY | PROVIDERS: Admitting Provider Surgery; Emergency Provider Emergency Medicine; Visit Provider Surgery | DX: K56.2 Volvulus (principal) | CPT/HCPCS: 99232; 99499 ==

== ENCOUNTER → 2025-05-19 11:18 | Outpatient (BNV) | payer MEDICAID, SELFPAY | PROVIDERS: Admitting Provider Surgery; Emergency Provider Emergency Medicine; PCP Internal Medicine Geriatric Medicine; Visit Provider Nurse Practitioner Acute Care | DX: R14.0 Abdominal distension (gaseous) (principal) | CPT/HCPCS: 99231; 99232; 99499 ==

== ENCOUNTER 2025-07-07 11:25 | Outpatient (REF) | payer MEDICAID, SELFPAY ==
--- OUTSIDE RECORDS SUMMARY | 2025-07-08 02:11 | XMS_ITS | Encounter Summary ---
Author Organization [employer] Address [address] [place] [address] [address]t [place] [address] Care Team Providers Care Diesel Retrofit Designer Name Role Phone Brenna Liriano MD Primary Care Provide r Encounter Details Date Type Department Care Team ([facility] Contact Info) Description 02/08/2023 Orders Only [facility] [address] [place], [place] [phone] Enma Sparks LPN Social History Tobacco Use [...] Department Care Team (Late Contact Info) Description 07/22/2025 2:00 PM EST Office Visit [facility] [address] [place], [place] [phone] Brenna Liriano MD [address] [place], [place] [phone] documented as of this encounter Visit Diagnoses Not on filedocumented in this encounter Care Teams Diesel Retrofit Designer Relationship Specialty Start Date End Date Brenna Liriano MD [address] [facility] [place] [address] PCP - General Family Medicine 07/01/19 [facility] 06/26/24 documented as of this encounter
--- OUTSIDE RECORDS SUMMARY | 2025-07-08 02:11 | XMS_ITS | Encounter Summary ---
Author Organization [employer] Address [address] [facility] 7t [place] [address] Care Team Providers Care Guest Experience Specialist Name Role Phone Brenna Liriano MD Primary Care Provide r Reason for Visit * Reason Comments Med Refill Encounter Details Date Type Department Care Team ([facility] st Contact Info) Description 01/02/2025 Refill [facility] [address] [place], [place] [phone] Name, MD Donny [address] [place] [address] Asthma, unspecified asthma severity, unspecified whether complicated, [...] Care Team (Late st Contact Info) Description 07/22/2025 2:00 PM EST Office Visit [facility] [address] [place] [address] Brenna Liriano MD [address] [place] [address] documented as of this encounter Visit Diagnoses Diagnosis Asthma, unspecified asthma severity, unspecified whether complicated, unspecified whether persistent documented in this encounter Additional Health Concerns Assessment Noted Time PHQ-9 Depression Total Score: 1 12/27/19 25 11:18 AM EDT documented as of this encounter Care Teams Guest Experience Specialist Relationship Specialty Start Date End Date Brenna Liriano MD [address] [place] [address] PCP - General Family Medicine 07/01/19 [facility] CHO 06/26/24 documented as of this encounter
--- OUTSIDE RECORDS SUMMARY | 2025-07-08 02:11 | XMS_ITS | Encounter Summary ---
Author Organization [employer] [facility] Address [address] [place] [address] 7 [place] [address] Care Team Providers Care Marketing Content Coordinator Name Role Phone Brenna Liriano MD Primary Care Provide r Encounter Details Date Type Department Care Team ([facility] Contact Info) Description 02/12/2023 Orders Only [facility] [address] [place] [address] [phone] Kristen Hernandez LPN Social History Tobacco Use [...] Description 07/22/2025 2:00 PM EST Office Visit [facility] [address] [place] [address] [phone] Brenna Liriano MD [address] [place] [address] [phone] documented as of this encounter Visit Diagnoses Not on filedocumented in this encounter Care Teams Marketing Content Coordinator Relationship Specialty Start Date End Date Brenna Liriano MD [address] [place] [address] [place] [address] PCP - General Family Medicine 07/01/19 [facility] CHO 06/26/24 documented as of this encounter
--- OUTSIDE RECORDS SUMMARY | 2025-07-08 02:12 | XMS_ITS | Encounter Summary ---
Author Organization [email or web address] Address [address] [place] [address] 7 [place] [address] Care Team Providers Care Sausage Canner Name Role Phone Brenna Liriano MD Primary Care Provide r Reason for Visit * Reason Onset Date Comments Hospital Follow-up 05/06/2025 Encounter Details Date Type Department Care Team ([facility] st Contact Info) Description 05/06/2025 Telephone [facility] [address] [place] [address] Brenna Liriano MD [address] [place] [address] Hospital Follow-up Social History Tobacco Use Types [...] from pt requesting a HDF appt. Hospital: [facility] Date of admission: 04/29/2025 Discharge date: 05/06/2025 Diagnosed: Constipation and diabetes *Send message to [place] Clinical Care Coordinators Contact pt at [phone] documented in this encounter Plan of Treatment Upcoming Encounters Date Type Department Care Team (Late st Contact Info) Description 07/22/2025 2:00 PM EST Office Visit [facility] [address] [place] [address] Brenna Liriano MD [address] [place] [address] documented as of this encounter Visit Diagnoses Not on filedocumented in this encounter Additional Health Concerns Assessment Noted Time PHQ-9 Depression Total Score: 1 12/27/19 25 11:18 AM EDT documented as of this encounter Care Teams Sausage Canner Relationship Specialty Start Date End Date Brenna Liriano MD [address] [place] [address] PCP - General Family Medicine 07/01/19 Ge[facility] CHO 06/26/24 documented as of this encounter
--- OUTSIDE RECORDS SUMMARY | 2025-07-08 02:12 | XMS_ITS | Encounter Summary ---
Author Organization [employer] [facility] [employer] Address [address] [facility] 7t [place] [address] Care Team Providers Care Yard Coupler Name Role Phone Brenna Liriano MD Primary Care Provide r Reason for Visit * Reason Comments Med Refill Encounter Details Date Type Department Care Team ([facility] st Contact Info) Description 06/12/2023 Refill [facility] [address] [place], [place] [phone] Brenna Liriano MD [address] [place] [address] Constipation, unspecified constipation type Social History Tobacco [...] Description 07/22/2025 2:00 PM EST Office Visit [facility] [address] [place] [address] Brenna Liriano MD [address] [place] [address] documented as of this encounter Visit Diagnoses Diagnosis Constipation, unspecified constipation type documented in this encounter Care Teams Yard Coupler Relationship Specialty Start Date End Date Brenna Liriano MD [address] [place] [address] [phone] PCP - General Family Medicine 07/01/19 [facility] 06/26/24 documented as of this encounter
--- OUTSIDE RECORDS SUMMARY | 2025-07-08 02:12 | XMS_ITS | Encounter Summary ---
Author Organization [employer] Address [address] [place] [address] [address]t [place] [address] Care Team Providers Care Security Field Supervisor Name Role Phone Brenna Liriano MD Primary Care Provide r Reason for Visit * Reason Onset Date Comments Appointment Request 10/31/2023 Encounter Details Date Type Department Care Team ([facility] st Contact Info) Description 10/31/2023 Telephone [facility] [address] [place], [place] [phone] Brenna Liriano MD [address] [place], [place] [phone] Appointment Request Social History Tobacco Use Types [...] PM EDT Tc from Veronica the patients plastic worker calling to cancel the PAP appt on 11/06 and would like to reschedule documented in this encounter Plan of Treatment Upcoming Encounters Date Type Department Care Team (Late st Contact Info) Description 07/22/2025 2:00 PM EST Office Visit [facility] [address] [place] [phone] Brenna Liriano MD [address] [place] [address] documented as of this encounter Visit Diagnoses Not on filedocumented in this encounter Care Teams Security Field Supervisor Relationship Specialty Start Date End Date Brenna Liriano MD [address] [place] [phone] PCP - General Family Medicine 07/01/19 Geovanny A 06/26/24 documented as of this encounter
--- OUTSIDE RECORDS SUMMARY | 2025-07-08 02:12 | XMS_ITS | Encounter Summary ---
Author Organization [employer] Address [address] [place] [address] [address] [place] [address] Care Team Providers Care Rug Layer Name Role Phone Brenna Liriano MD Primary Care Provide r Reason for Visit * Reason Onset Date Comments Med Refill 10/07/2024 Encounter Details Date Type Department Care Team ([facility] st Contact Info) Description 10/07/2024 Telephone [facility] [address] [place], [place] [phone] Brenna Liriano MD [address] [place], [place] [phone] Med Refill Social History Tobacco Use Types [...] from PCP today, no tramadol refill until EXHIBIT DISPLAY REPRESENTATIVE initial visit completed. Spoke with patient today and pt Is scheduled for 10/09/24. * Telephone Encounter - Melchor Ortega - 10/07/2024 3:05 PM EST TC from pt requesting medication refill. Medications needing refill : traMADol (Ultram) 50 MG tablet To be sent to: [facility] - [place], [place] - [phone] [place] - [address] documented in this encounter Plan of Treatment Upcoming Encounters Date Type Department Care Team (Late st Contact Info) Description 07/22/2025 2:00 PM EST Office Visit [facility] [address] [place] [address] Brenna Liriano MD [address] [place] [address] documented as of this encounter Visit Diagnoses Not on filedocumented in this encounter Care Teams Rug Layer Relationship Specialty Start Date End Date Brenna Liriano MD [address] [place] [address] PCP - General Family Medicine 07/01/19 Geovanny CHO 06/26/24 documented as of this encounter
--- OUTSIDE RECORDS SUMMARY | 2025-07-08 02:13 | XMS_ITS | Encounter Summary ---
Author Organization [employer] Address [address] [facility] 7t [place] [address] Care Team Providers Care Library Director Name Role Phone Brenna Liriano MD Primary Care Provide r Reason for Visit * Reason Comments Med Refill Encounter Details Date Type Department Care Team ([facility] st Contact Info) Description 07/24/2023 Refill [facility] [address] [place], [place] [phone] Brenna Liriano MD [address] [place] [address] Social History Tobacco Use Types Packs/Day Years [...] Description 07/22/2025 2:00 PM EST Office Visit [facility] [address] [place] [address] Brenna Liriano MD [address] [place] [address] documented as of this encounter Visit Diagnoses Not on filedocumented in this encounter Care Teams Library Director Relationship Specialty Start Date End Date Brenna Liriano MD [address] [place] [phone] PCP - General Family Medicine 07/01/19 [facility] 06/26/24 documented as of this encounter
--- OUTSIDE RECORDS SUMMARY | 2025-07-08 02:13 | XMS_ITS | Clinical Summary ---
Author Organization 175 [facility] Address 175 [place] [address] Phone Care Team Providers Care Principal Android Developer Name Role Phone Andrez Liriano MD Primary [...] 02/03/2019 COPD (chronic obstructive pu lmonary disease) ([facility] V24, [facility] V28) 02/03/2019 Depression with anxiety 02/03/2019 Overview (07/02/2024): Admission to [facility] 10/24/2018 for crisis and depression. HTN (hypertension) 02/03/2019 Microalbuminuria 02/03/2019 Obesity 02/03/2019 Onychomycosis 02/03/2019 Osteoarthritis 02/03/2019 Overview (07/02/2024): Knees, bilaterally. Schizoaffective disorder ([facility] V24, [facility] V 28) 02/03/2019 Type 2 diabetes mellitus wit h renal manifestations ([facility] V24, [facility] V28) 02/03/2019 Encounters Date Type Department Care Team Description 05/13/2025 10:45 AM EDT Office Visit Orthopedic Surgery [address] [address] Carmelo Craig, DPM Hallux rigidus of right foot (Primary Dx); Hallux rigidus of left foot; Dermatophytosis of nail; Metatarsalgia of both feet; Pain in toe of right foot; Diabetic mononeuropathy simplex ([facility] V24, [facility] V28); Type II diabetes mellitus with peripheral circulatory disorder ([facility] V24, [facility] V28); Pain in toe of left foot; Corns and callosities; Tinea pedis of both feet from Last 3 Months Medical History Medical History Date Comments Depression with anxiety 02/03/2019 DX:Depre ssion with anxiety; COMMENT: Admission to [facility] 10/24/2018 for crisis and depression. Asthma 02/03/2019 DX:Asthma Onychomycosis 02/03/2019 DX:Onychomycosis Osteoarthritis 02/03/2019 DX:Osteoarthriti s; COMMENT: knees, bilaterally. HTN (hypertension) 02/03/2019 DX:HTN (hyper tension) COPD (chronic obstructive pu lmonary disease) ([facility] V24, [facility] V28) 02/03/2019 DX:COPD (chronic o bstructive pulmonary disease) ([facility]) Schizoaffective disorder ([facility] V24, [facility] V28) 02/03/2019 DX:Schizoaffective disorder ([facility]) Microalbuminuria 02/03/2019 DX:Microalbumin uria Type 2 diabetes mellitus wit h renal manifestations ([facility] V24, [facility] V28) 02/03/2019 DX:Type 2 diabetes mellitus with renal manifestations ([facility]) Tobacco use 02/03/2019 DX:Tobacco use [...] AM EST Office Visit Orthopedic Surgery - [place] [address] [address] Carmelo Craig, DPM [address] [address] Health Maintenance Due Date Last Done Comments Breast Cancer Screening 1965 Colorectal Cancer Screening: Colonoscopy 1965 Diabetes: Annual Foot Exam 1975 Diabetes: Annual Retina Eye Exam 1975 Cervical Cancer Screening: Pap Smear 1986 RSV Immunization Adult Patients (1 - Risk 50-74 years 1-dose series) 2015 Zoster Vaccines (1 of 2) 2015 Diabetes: [...] 06/21/2032 06/21/2022, 12/16/2010, 11/27/2005, Additional history exists Hepatitis B Vaccines Completed 06/22/2014, 03/29/2012, 02/27/2012 [...] topic Insurance MEDICAID - [place] Care Teams Principal Android Developer Relationship Specialty Start Date End Date Andrez Liriano MD [address] [phone] PCP - General 08/30/23
--- OUTSIDE RECORDS SUMMARY | 2025-07-08 02:13 | XMS_ITS | Encounter Summary ---
Author Organization [employer] Address [address] [place] [address] [address]t [place] [address] Care Team Providers Care Automatic Stacker Name Role Phone Brenna Liriano MD Primary Care Provide r Reason for Visit * Reason Comments Med Refill Encounter Details Date Type Department Care Team ([facility] st Contact Info) Description 03/11/2024 Refill [facility] MED[facility]INE 230 [place], [place] [phone] Brenna Liriano MD 230 [place] [address] Asthma, unspecified asthma severity, unspecified whether complicated, [...] Description 07/22/2025 2:00 PM EST Office Visit [facility] MED[facility] [address] [place] [phone] Brenna Liriano MD [address] [place] [phone] documented as of this encounter Visit Diagnoses Diagnosis Asthma, unspecified asthma severity, unspecified whether complicated, unspecified whether persistent documented in this encounter Care Teams Automatic Stacker Relationship Specialty Start Date End Date Brenna Liriano MD [address] [place] [phone] PCP - General Family Medicine 07/01/19 [facility] 06/26/24 documented as of this encounter
--- OUTSIDE RECORDS SUMMARY | 2025-07-08 02:13 | XMS_ITS | Encounter Summary ---
Author Organization [employer] Address [address] [facility] 7t [place] [address] Care Team Providers Care Stock Driver Name Role Phone Brenna Liriano MD Primary Care Provide r Reason for Visit * Reason Comments Med Refill Encounter Details Date Type Department Care Team ([facility] st Contact Info) Description 09/14/2023 Refill [facility] MED[facility]INE 230 [place], [place] [phone] Brenna Liriano MD 230 [place], [place] [phone] Constipation, unspecified constipation type Social History Tobacco [...] Description 07/22/2025 2:00 PM EST Office Visit [facility] MED[facility]INE [address] [place] [phone] Brenna Liriano MD [address] [place] [phone] documented as of this encounter Visit Diagnoses Diagnosis Constipation, unspecified constipation type documented in this encounter Care Teams Stock Driver Relationship Specialty Start Date End Date Brenna Liriano MD [address] [place] [phone] PCP - General Family Medicine 07/01/19 [facility] 06/26/24 documented as of this encounter
--- OUTSIDE RECORDS SUMMARY | 2025-07-08 02:14 | XMS_ITS | Encounter Summary ---
Author Organization [employer] Address [address] [place] [address] [address]t [place] [address] Care Team Providers Care Renewable Energy Broker Name Role Phone Brenna Liriano MD Primary Care Provide r Reason for Visit * Reason Onset Date Comments Nurse Triage 11/10/2024 Encounter Details Date Type Department Care Team ([facility] st Contact Info) Description 11/10/2024 Telephone [facility] MEDICINE 230 [place], [place] [phone] Brenna Liriano MD 230 [place], [place] [phone] Nurse Triage Social History Tobacco Use Types [...] 11/10/2024 4:06 PM EDT Triage call with [facility] Operator Maintainer ID [id number]. Pt called regarding constipation. Pt reports last [...] higher acuity questions Please contact pt at [phone]. (Mozambican Speaking) documented in this encounter Plan of Treatment Upcoming Encounters Date Type Department Care Team ([facility] st Contact Info) Description 07/22/2025 2:00 PM EST Office Visit [facility] [address] [place] [address] Brenna Liriano MD 230 [place], [place] [phone] documented as of this encounter Visit Diagnoses Not on filedocumented in this encounter Care Teams Renewable Energy Broker Relationship Specialty Start Date End Date Brenna Liriano MD 230 [place], [place] [phone] PCP - General Family Medicine 07/01/19 [facility] 06/26/24 documented as of this encounter
--- OUTSIDE RECORDS SUMMARY | 2025-07-08 02:14 | XMS_ITS | Encounter Summary ---
Author Organization [employer] Address [address] [facility] 7t [place] [address] Care Team Providers Care Sat Math Tutor Name Role Phone Brenna Liriano MD Primary Care Provide r Encounter Details Date Type Department Care Team (Late st Contact Info) Description 11/18/2024 Orders Only [facility] [address] [place], [place] [phone] Provider, MD Ameya Social History Tobacco Use [...] Description 07/22/2025 2:00 PM EST Office Visit [facility] MEDICINE 230 [place] [address] Brenna Liriano MD 230 [place] [address] documented as of this encounter Procedures Procedure Name Priority Date/Time Associated Diagnosis Comments COLONOSCOPY Routine 04/02/2024 9:55 AM EDT documented in this encounter Results * Hm Colonoscopy (04/02/2024 9:55 AM EDT) Colonoscopy Normal Normal Narrative Jacqueline Valiente - 04/02/2024 9:55 AM EDT Repeat Colonoscopy in 5 years or earlier if clinically indicated see the external hospital admission note on 04/02/2024 us Historical Provider [facility] Edited Result - Final documented in this encounter Visit Diagnoses Not on filedocumented in this encounter Care Teams Sat Math Tutor Relationship Specialty Start Date End Date Brenna Liriano MD 230 [place] [address] PCP - General Family Medicine 07/01/19 [facility] 06/26/24 documented as of this encounter
--- OUTSIDE RECORDS SUMMARY | 2025-07-08 02:14 | XMS_ITS | Encounter Summary ---
Author Organization [employer] Address [address] [facility] 7t [place] [address] Care Team Providers Care Automobile Relocation Engineer Name Role Phone Brenna Liriano MD Primary Care Provide r Reason for Visit * Reason Comments Med Refill Encounter Details Date Type Department Care Team ([facility] st Contact Info) Description 12/18/2023 Refill [facility] MEDICINE 230 [place], [place] [phone] Brenna Liriano MD 230 [place] [address] Social History Tobacco Use Types Packs/Day Years [...] Description 07/22/2025 2:00 PM EST Office Visit [facility] MEDICINE 230 [place], [place] [phone] Brenna Liriano MD [address] [place] [phone] documented as of this encounter Visit Diagnoses Not on filedocumented in this encounter Care Teams Automobile Relocation Engineer Relationship Specialty Start Date End Date Brenna Liriano MD [address] [place] [phone] PCP - General Family Medicine 07/01/19 [facility] 06/26/24 documented as of this encounter
--- OUTSIDE RECORDS SUMMARY | 2025-07-08 02:15 | XMS_ITS | Encounter Summary ---
Author Organization [employer] [facility] Address [address] [place] [address] 7t [place] [address] Care Team Providers Care Cross Cut Sawyer Name Role Phone Brenna Liriano MD Primary Care Provide r Reason for Visit * Reason Comments Med Refill Encounter Details Date Type Department Care Team (Late Contact Info) Description 10/23/2022 Refill [facility] MEDICINE [address] [place] [phone] Hina Mccormack MD [address] [place] [address] [phone] Other chronic pain Social History Tobacco Use [...] 07/22/2025 2:00 PM EST Office Visit [facility] MEDICINE [address] [place] [phone] Brenna Liriano MD 230 [place], [place] [phone] documented as of this encounter Visit Diagnoses Diagnosis Other chronic pain documented in this encounter Care Teams Cross Cut Sawyer Relationship Specialty Start Date End Date Brenna Liriano MD 230 [place] [address] PCP - General Family Medicine 07/01/19 [facility] 06/26/24 documented as of this encounter
--- OUTSIDE RECORDS SUMMARY | 2025-07-08 02:15 | XMS_ITS | Clinical Summary ---
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 3 Active clonazePAM (KlonoPIN) 1 MG tablet Take 1 mg by mouth at bedtime. 3 Active cloZAPine (Clozaril) 100 MG tablet Take 3 tablets by mouth at bedtime. TDD 325 mg at bedtime 3 Active cloZAPine (Clozaril) 25 MG tablet Take 1 tablet by mouth at bedtime. TD 325 mg at bedtime 3 Active fluticasone (Flonase) 50 MCG/ACT nasal spray SPRAY 2 SPRAYS INTO EACH NOSTRIL EVERY MORNING 48 g 3 Active dilTIAZem CD (Cardizem CD) 120 MG 24 hr capsule Take 1 capsule by mouth 1 (one) time each day. 3 Active divalproex (Depakote ER) 250 MG 24 [...] OR SHORTNESS OF BREATH 90 mL 1 4 Active naloxone (Narcan) 4 mg/0.1 mL nasal sprayIndications :Chronic bilateral low back pain without sciatica Administer 1 spray (4 mg) into affected nostril(s) if needed for opioid reversal. May repeat every 2-3 minutes if needed, alternating nostrils, until medical assistance becomes available. 2 each 3 5 026 Active ferrous sulfate (Fe Tabs) 325 (65 Fe) MG EC tablet Take 1 tablet (325 mg) by mouth every other day. Do not crush, chew, or split. 15 tablet 5 026 Active Blood Pressure Monitoring (Blood Pressure Cuff) miscIndications: Essential hypertension 1 each in the morning. 1 each 5 Active lisinopril 10 MG tablet TAKE 1 TABLET BY MOUTH DAILY 30 tablet 5 Active montelukast (Singulair) 10 MG tabletIndication s:Uncomplicated asthma, unspecified asthma severity, unspecified whether persistent TAKE 1 TABLET BY MOUTH DAILY IN THE MORNING 30 tablet 5 Active omeprazole (PriLOSEC) [address] capsuleIndicatio ns:Gastroesophag eal reflux disease, unspecified whether esophagitis present TAKE 1 CAPSULE BY MOUTH TWICE DAILY BEFORE A MEAL 60 capsule 5 Active senna (Senokot) 8.6 MG tabletIndication s:Constipation, unspecified constipation type TAKE 2 TABLETS BY MOUTH EVERY DAY AT BEDTIME NEEDED FOR CONSTIPATION 60 tablet 5 Active loratadine (Claritin) 10 MG tablet TAKE 1 TABLET BY MOUTH EVERY MORNING 30 tablet 5 Active docusate sodium (Colace) 100 MG capsule TAKE 1 CAPSULE BY MOUTH TWICE DAILY IN THE MORNING AND AT BEDTIME NEEDED 60 capsule 5 5 Active polyethylene glycol, PEG, 3350 (HealthyLax) 17 g packet MIX 1 PACKET WITH 8 OUNCES OF WATER OR JUICE AND DRINK BY MOUTH THREE TIMES DAILY NEEDED 90 packet 2 5 Active albuterol (Ventolin HFA) 108 (90 Base) MCG/ACT inhalerIndicatio ns:Asthma, unspecified asthma severity, unspecified whether complicated, unspecified whether persistent INHALE 2 PUFFS BY MOUTH EVERY 4 TO 6 HOURS NEEDED 18 g 2 5 Active traMADol (Ultram) 50 MG tabletIndication s:Chronic bilateral low back pain without sciatica TAKE 1 TABLET BY MOUTH EVERY TWELVE HOURS NEEDED FOR SEVERE PAIN 56 tablet 07/06/2025 2:06 PM EST 5 025 Active metFORMIN XR (Glucophage-XR) 500 MG 24 hr tablet TAKE 1 TABLET BY MOUTH TWICE DAILY IN THE MORNING AND AT BEDTIME WITH MEALS 90 tablet 1 5 Active atorvastatin (Lipitor) 40 MG tabletIndication s:Essential hypertension TAKE 1 TABLET BY MOUTH AT BEDTIME 90 tablet 1 5 Active lactulose (Chronulac) 10 GM/15ML solutionIndicati ons:Chronic constipation TAKE 45 ML BY MOUTH EVERY MORNING DIRECTED 473 mL 1 07/06/2025 2:26 PM EST 5 Active sucralfate (Carafate) 1 g tablet Take 1 tablet (1 g) by mouth 3 times daily. 90 tablet 5 Active Active Problems Problem Noted Date Diagnosed [...] Q 12hrs Patient will be contacted by MECH[facility] nurse Tobacco dependence syndrome 06/04/2015 Microalbuminuria 06/23/2014 Chronic constipation 02/27/2012 Assessment & Plan (01/02/2023 2:10 PM EDT): Increase water and fiber on her diet Medications prescribed Referral to GI Chronic schizoaffective schizophrenia ([facility]) 02/27/2012 Assessment & Plan (10/12/2023 6:30 PM [...] department for further evaluation, case presented [facility], patient will go by ambulance Acute upper respiratory infection 11/02/2022 02/16/2023 Mild intermittent asthma 04/02/2018 Obesity (BMI 30-39.9) 04/02/20182022 Schizoaffective disorder, bi polar type ([facility]) 03/13/2017 02/16/2023 Primary osteoarthritis of left knee 01/30/2017 02/16/2023 Encounters Date Type Department Care Team Description 06/30/2025 9:40 AM EST Office Visit [facility] OPTOM[facility] [address] [place], [place] [phone] 06/30/2025 Telephone [facility] MEDICINE [address] [place] [address] Brenna Liriano MD FYI 06/30/2025 Travel 06/26/2025 Telephone [facility] [address] [place] [phone] Brenna Liriano MD FYI 06/23/2025 Travel 06/10/[address] [address] Avelina Sterling, [employer] RV appt today 06/05/2025 Patient Outreach [facility] [address] [place] [phone] Brenna Liriano MD Transition Of Care (Tcm) (HDF- Unscheduled-SECOND LVM) 06/02/2025 Patient Outreach [address] [address] Brenna Liriano MD Transition Of Care (Tcm) (HDF- Unscheduled LVM) 05/28/2025 Refill [facility] [address] [place] [phone] Brenna Liriano MD 05/19/2025 Orders Only GENERIC EXTERNAL DATA DEPARTMENT Provider, Generic External Data 05/17/[address] [address] Brenna Liriano MD Chronic constipation 05/11/2025 10:00 AM EDT Office Visit [facility] [address] [place] [phone] Dionne Valerio MD UTI symptoms 05/11/2025 Travel 05/06/2025 Patient Outreach [facility] [address] [place] [phone] Brenna Liriano MD Transition Of Care (Tcm) (HDF unscheduled LVM ) 05/06/2025 Telephone [facility] [address] [place] [phone] Brenna Liriano MD Hospital Follow-up 05/01/2025 Patient Outreach [facility] [address] [place] [phone] Brenna Liriano MD Care Coordination (C3 -[facility] Zenobia Baker telephone call outreach) 04/30/2025 Telephone [facility] MED & PEDS [address] [place] [address] Brenna Liriano MD NOV RECALL 04/24/2025 Patient Outreach [facility] [address] [place] [address] Brenna Liriano MD 04/23/2025 Orders Only GENERIC EXTERNAL DATA DEPARTMENT Provider, Generic External Data 04/21/2025 Patient Outreach [facility] [address] [place] [address] Brenna Liriano MD Care Management ([facility]- F/U call # 1) 04/16/2025 Refill [facility] [address] [place] [phone] Brenna Liriano MD Essential hypertension 04/14/2025 Refill [facility] [address] [place] [phone] Brenna Liriano MD Chronic bilateral low back pain without sciatica 04/09/2025 Refill [facility] [address] [place] [phone] Brenna Liriano MD Asthma, unspecified asthma severity, unspecified whether complicated, unspecified whether persistent 04/09/2025 Refill [facility] [address] [place] [phone] Donny Gallegos MD Asthma, unspecified asthma severity, unspecified whether complicated, unspecified whether persistent from Last 3 Months Immunizations Immunization Administration [...] Description 07/22/2025 2:00 PM EST Office Visit [facility] [address] [place], [place] [phone] Brenna Liriano MD [address] [place], [place] [phone] Health Maintenance Due Date Last Done Comments CT Colonography 1965 FIT DNA/Cologuard 1965 FIT 1965 FOBT 1965 HIV Screening 1965 Sigmoidoscopy 1965 Disability Screening 1965 Diabetes: Foot Exam 1975 Eye Exam 1975 Hepatitis C Screening 1983 Diabetes: Urine Protein Screening 1984 Pap Smear 1986 RSV Patients and Patients Aged 60 years or older (1 - Risk 50-74 years 1-dose series) 2015 Zoster Vaccines (1 of 2) 2015 Cervical [...] XR KUB AND UPRIGHT 2 VIEWS Routine 05/27/2025 12:25 PM EDT XR KUB AND UPRIGHT 2 VIEWS Routine 05/25/2025 9:[address] ABDOMEN PELVIS W CONTRAST Routine 05/24/2025 3:[address] HEAD WO CONTRAST Routine 05/24/2025 3 :32 AM EDT XR KUB AND UPRIGHT 2 VIEWS Routine 05/19/2025 7:19 PM EDT GLUCOSE, WHOLE BLOOD Routine 05/19/2025 10:[address] ABDOMEN PELVIS W CONTRAST Routine 05/19/2025 7:56 AM EDT POCT URINALYSIS DIPSTICK Routine 05/11/2025 9:39 AM EDT UTI symptoms US ABDOMEN LIMITED Routine 04/25/2025 6: [address] SOFT TISSUE NECK W CONTRAST Routine 04/25/2025 4:44 PM EDT XR CHEST 1 VIEW Routine 04/24/2025 5:[address] ABDOMEN PELVIS W CONTRAST Routine 04/24/2025 1:00 AM EDT CBC WITH AUTO DIFFERENTIAL Routine 04/23/2025 8:25 PM EDT LIPID PANEL, STANDARD Routine 11/04/2024 8:58 AM EDT POCT GLYCATED HEMOGLOBIN, TOTAL Routine 07/15/2024 1:36 PM EST Type 2 diabetes mellitus with hyperglycemia, without long-term current use of insulin ([facility]) BI MAMMOGRAM SCREENING TOMOSYNTHESIS BILATERAL Routine 05/01/2024 3:00 PM EDT HM COLONOSCOPY Routine 04/02/2024 9:55 AM EDT ZZZ HISTORICAL HPV MRNA E6/E7 Routine 03/21/2017 12:00 AM EDT from Last 3 Months or Most Recently Relevant to Health Maintenance Results * XR KUB and Upright 2 Views (05/27/2025 12:25 PM EDT) Only the most recent of3 resultswithin the time period is included. Anatomical Region Laterality Modality Radiographic My ging 05/27/2025 12:2 5 PM EDT Narrative 05/27/2025 12:38 PM EDT [address] [address] XRay Report Signed Patient: Brenna Hope MR# : [id number] : 1965 Acct:[id number] Age/Sex: 59 / F ADM Date: 05/19/25 [facility] [id number] Attending Dr: Radha Holland MD Ordering Physician: Staci Atkins DNP Date of Service: 05/27/25 Procedure(s): XR KUB Accession Number(s): [id number] cc: Brenna Liriano MD; Staci Atkins DNP Reason for Exam: Nausea EXAMINATION: XR ABDOMEN KUB CLINICAL INDICATION: Nausea COMPARISON: None available. TECHNIQUE: AP view of the abdomen. FINDINGS: Scattered bowel gas is present in small and large bowel. Soft tissues are unremarkable. XR/XR KUB IMPRESSION: Unremarkable examination. Electronically signed by: Jasper Gonzales MD 05/27/2025 12:35 PM EDT Dictated By: Jasper Gonzales MD Signed By: <Electronically signed by Jasper Gonzales MD in OV> 05/27/25 1235 DD/ 1225 TD/TT: 05/27/25 1230 High Value Associate: Procedure Note Donotuseinterpreter, Image - 05/27/[address] [address] XRay Report Signed Patient: Brenna Hope DMR# : [id number] : 1965Acct:[id number] Age/Sex: 59 / FADM Date: 05/19/25 [facility] [address]: Radha Holland MD Ordering Physician: Staci Atkins DNP Date of Service: 05/27/25 Procedure(s): XR KUB Accession Number(s): [id number] cc: Brenna Liriano MD; Staci Atkins DNP Reason for Exam: Nausea EXAMINATION: XR ABDOMEN KUB CLINICAL INDICATION: Nausea COMPARISON: None available. TECHNIQUE: AP view of the abdomen. FINDINGS: Scattered bowel gas is present in small and large bowel. Soft tissues are unremarkable. XR/XR KUB IMPRESSION: Unremarkable examination. Electronically signed by: Jasper Gonzales MD 05/27/2025 12:35 PM EDT RP Dictated By: Jasper Gonzales MD Signed By: <Electronically signed by Jasper Gonzales MD in OV> 05/27/25 1235 DD/ 1225 TD/TT: 05/27/25 1230 High Value Associate: [facility] External Provider IMG XR PROCEDURES Final Result * CT Abdomen Pelvis w/ Contrast (05/24/2025 3:43 AM EDT) Only the most recent of3 resultswithin the time period is included. Anatomical Region Laterality Modality Body, Pelvis, Abdomen Computed T omography 05/24/2025 3:43 AM EDT Narrative 05/24/2025 3:44 AM EDT [place] [address] CT Scan Report Signed Patient: Brenna Hope MR# : [id number] : 1965 Acct:[id number] Age/Sex: 59 / F ADM Date: 05/19/25 Loc: HO.S3 372-[address]: Radha Holland MD Ordering Physician: Srinivasa Mccarty MD Date of Service: 05/24/25 Procedure(s): CT abdomen pelvis w IV con Accession Number(s): [id number] cc: Brenna Liriano MD; Srinivasa Mccarty MD Report Number: [id number]: Total DLP = 0.00 mGy-cm Reason for Exam: AMS, abdomen distended, patient moaning CLINICAL HISTORY: AMS, abdomen distended, patient moaning CT abdomen and pelvis with contrast Comparison: CR - XR KUB - 05/19/25 18:[address]/REG/SR - CT ABDOMEN PELVIS W IV CON - 04/23/25 23:17 EDT Findings: Patient is imaged in a partial decubitus position. No consolidation or effusion. An enteric tube terminates in the stomach. Stomach is nondistended. Spleen is normal. Hepatic parenchyma is normal. Gallbladder is partially distended. Pancreas is normal. Pancreatic tail is displaced by a large bowel loop. Kidneys are normal. No nephrolithiasis or hydroureter. Bladder is normal. Pelvic contents are unremarkable. There is marked colonic dilatation with a large stool burden. The appendix is not visualized. Redundant transverse and descending colonic loops are present. Proximal small bowel is nondistended. There is focal angulation of small-bowel loops in the mid abdomen without proximal dilatation. This may represent sequelae of scarring or adhesion. Large bowel loops extend to a left abdominal incisional scar/abdominal wall diastatic defect with close apposition of bowel wall to the defect. This may represent a Miller's type hernia. No evidence of focal transition point at this site. No free air or pneumatosis. No bowel obstruction, pneumoperitoneum, or pneumatosis. No acute fracture. IMPRESSION: 1. Severe distention and stool burden within the redundant large bowel. Stool and bowel gas extend to the rectum. A large bowel loop is closely apposed to a left abdominal wall defect/hernia without evidence for obstruction or incarceration. This may represent adhesion or a Miller's type hernia. 2. Focal angulation of small-bowel loops in the midabdomen may represent sequelae of scarring or adhesion. No evidence of proximal small bowel obstruction. This document has been electronically signed by: Sterling Varma III, MD PHD on 05/24/2025 03:43:37 Dictated By: Sterling Varma MD Signed By: <Electronically signed by Sterling Varma MD in OV> 05/24/25 0344 DD/ 2 TD/TT: 05/24/25342 High Value Associate: Procedure Note Donotuseinterpreter, Image - 05/24/[address] [address] [address] Scan Report Signed Patient: Brenna Hope DMR# : [id number] : 1965Acct:[id number] Age/Sex: 59 / FADM Date: 05/19/25 Loc: HO.S3 372-[address]: Radha Holland MD Ordering Physician: Srinivasa Mccarty MD Date of Service: 05/24/25 Procedure(s): CT abdomen pelvis w IV con Accession Number(s): [id number] cc: Brenna Liriano MD; Srinivasa Mccarty MD Report Number: [id number]: Total DLP = 0.00 mGy-cm Reason for Exam: AMS, abdomen distended, patient moaning CLINICAL HISTORY: AMS, abdomen distended, patient moaning CT abdomen and pelvis with contrast Comparison: CR - XR KUB - 05/19/25 18:[address]/REG/SR - CT ABDOMEN PELVIS W IV CON - 04/23/25 23:17 EDT Findings: Patient is imaged in a partial decubitus position. No consolidation or effusion. An enteric tube terminates in the stomach. Stomach is nondistended. Spleen is normal. Hepatic parenchyma is normal. Gallbladder is partially distended. Pancreas is normal. Pancreatic tail is displaced by a large bowel loop. Kidneys are normal. No nephrolithiasis or hydroureter. Bladder is normal. Pelvic contents are unremarkable. There is marked colonic dilatation with a large stool burden. The appendix is not visualized. Redundant transverse and descending colonic loops are present. Proximal small bowel is nondistended. There is focal angulation of small-bowel loops in the mid abdomen without proximal dilatation. This may represent sequelae of scarring or adhesion. Large bowel loops extend to a left abdominal incisional scar/abdominal wall diastatic defect with close apposition of bowel wall to the defect. This may represent a Miller's type hernia. No evidence of focal transition point at this site. No free air or pneumatosis. No bowel obstruction, pneumoperitoneum, or pneumatosis. No acute fracture. IMPRESSION: 1. Severe distention and stool burden within the redundant large bowel. Stool and bowel gas extend to the rectum. A large bowel loop is closely apposed to a left abdominal wall defect/hernia without evidence for obstruction or incarceration. This may represent adhesion or a Miller's type hernia. 2. Focal angulation of small-bowel loops in the midabdomen may represent sequelae of scarring or adhesion. No evidence of proximal small bowel obstruction. This document has been electronically signed by: Sterling Varma III, MD PHD on 05/24/2025 03:43:37 Dictated By: Sterling Varma MD Signed By: <Electronically signed by Sterling Varma MD in OV> 05/24/25343 DD/ 2 TD/TT: 05/24/25342 High Value Associate: [facility] External Provider IMG CT PROCEDURES Final Result * CT Head w/o Contrast (05/24/2025 3:32 AM EDT) Anatomical Region Laterality Modality Head, Neck Computed Tomogra phy 05/24/2025 3:32 AM EDT Narrative 05/24/2025 3:34 AM EDT [place] [address] CT Scan Report Signed Patient: Brenna Hope MR# : [id number] : 1965 Acct:[id number] Age/Sex: 59 / F ADM Date: 05/19/25 Loc: .S3 372-[address]: Radha Holland MD Ordering Physician: Srinivasa Mccarty MD Date of Service: 05/24/25 Procedure(s): CT head/brain wo IV con Accession Number(s): [id number] cc: Brenna Liriano MD; Srinivasa Mccarty MD Report Number: [id number]: Total DLP = 0.00 mGy-cm Reason for Exam: Altered mental status CLINICAL HISTORY: Altered mental status CT head without contrast Indication: Comparison: CT/REG/ME/SR - CT ABDOMEN PELVIS W IV CON - 05/19/25 07:[address]/ME/SR - CT HEAD/BRAIN WO IV CON - 06/20/24 13:44 EDT Findings: Brain is normal in volume and morphology. Ventricles are normal in size. Midbrain, yang, medulla, and cerebellum are normal. Cerebellar tonsils are normally positioned. There is no focal loss of tamez-white differentiation in a large arterial distribution. Scattered hypodensities in the subcortical and periventricular white matter are present. No acute intracranial hemorrhage. Suprasellar and basal cisterns are clear. There is no midline shift. Pituitary is normal. Orbits are normal. No acute calvarial fracture or diastasis. Mastoid air cells are normally aerated. Paranasal sinuses are clear.Patient is nasally intubated. IMPRESSION: 1. No acute intracranial hemorrhage. 2. No loss of tamez-white differentiation in a large vascular distribution. 3. Mild microvascular changes. This document has been electronically signed by: Sterling Varma III, MD PHD on 05/24/2025 03:32:27 Dictated By: Sterling Varma MD Signed By: <Electronically signed by Sterling Varma MD in OV> 05/24/25332 DD/ 1 TD/TT: 05/24/25331 High Value Associate: Procedure Note Donotuseinterpreter, Image - 05/24/[address] [place] [address] [address] Scan Report Signed Patient: Brenna Hope [facility]# : [id number] : 1965Acct:[id number] Age/Sex: 59 / FADM Date: 05/19/25 Loc: HO.S3 372-[address]: Radha Holland MD Ordering Physician: Srinivasa Mccarty MD Date of Service: 05/24/25 Procedure(s): CT head/brain wo IV con Accession Number(s): [id number] cc: Brenna Liriano MD; Srinivasa Mccarty MD Report Number: [id number]: Total DLP = 0.00 mGy-cm Reason for Exam: Altered mental status CLINICAL HISTORY: Altered mental status CT head without contrast Indication: Comparison: CT/REG/ME/SR - CT ABDOMEN PELVIS W IV CON - 05/19/25 07:[address]/ME/SR - CT HEAD/BRAIN WO IV CON - 06/20/24 13:44 EDT Findings: Brain is normal in volume and morphology. Ventricles are normal in size. Midbrain, yang, medulla, and cerebellum are normal. Cerebellar tonsils are normally positioned. There is no focal loss of tamez-white differentiation in a large arterial distribution. Scattered hypodensities in the subcortical and periventricular white matter are present. No acute intracranial hemorrhage. Suprasellar and basal cisterns are clear. There is no midline shift. Pituitary is normal. Orbits are normal. No acute calvarial fracture or diastasis. Mastoid air cells are normally aerated. Paranasal sinuses are clear.Patient is nasally intubated. IMPRESSION: 1. No acute intracranial hemorrhage. 2. No loss of tamez-white differentiation in a large vascular distribution. 3. Mild microvascular changes. This document has been electronically signed by: Sterling Varma III, MD PHD on 05/24/2025 03:32:27 Dictated By: Sterling Varma MD Signed By: <Electronically signed by Sterling Varma MD in OV> 05/24/25332 DD/ 1 TD/TT: 05/24/25331 High Value Associate: [facility] External Provider IMG CT PROCEDURES Final Result * Glucose, Whole Blood (05/19/2025 10:16 AM EDT) Glucose, Whole Blood 90 60 - 115 mg/dL [facility] Comment:METER #: [id number] 05/19/2025 10:1 6 AM EDT 05/19/2025 10:20 AM EDT Generic External Data Provider LAB BLOOD ORDERAB LES Final Result [facility] [address] [place] [address] [phone] * (ABNORMAL) POCT urinalysis dipstick manually resulted (05/11/2025 9:39 AM EDT) Color, UA Yellow Clarity, UA Clear Glucose, UA Negative Bilirubin, UA Negative Ketones, UA Positive Comment:trace Spec Grav, UA 1.025 Blood, UA Positive(A) Negative, None Detected pH, UA 6.0 Protein, UA Trace Urobilinogen, UA 4.0 Leukocytes, UA Moderate(A) Negative, Rare, Trace Nitrite, UA Positive(A) Negative, None Detected Urine 05/11/2025 9:39 AM EDT us Dionne Valerio MD POINT OF CARE TEST ENTER/EDIT OR DERABLES Final Result * US Abdomen Limited (04/25/2025 6:24 PM EDT) Anatomical Region Laterality Modality Abdomen Ultrasound 04/25/2025 6:24 PM EDT Narrative 04/25/2025 6:26 PM EDT [place] [address] Ultrasound Report Signed Patient: Brenna Hope MR# : [id number] : 1965 Acct:[id number] Age/Sex: 59 / F ADM Date: 04/24/25 Loc: .S3 375-[address]: Beth Alvarado MD Ordering Physician: Beth Alvarado MD Date of Service: 04/24/25 Procedure(s): US abdomen limited Accession Number(s): [id number] cc: Beth Alvarado MD; Name,Donny OLIVEIRA Reason for Exam: Ascitis - abd distension CLINICAL HISTORY: Ascitis - abd distension US abdomen limited Comparison: CT/REG/SR - CT ABDOMEN PELVIS W IV CON - 04/23/25 23:17 EDT US/ME/SR - US ABDOMEN LIMITED - 03/28/24 14:21 [...] in OV> 04/25/251824 DD/ 23 TD/TT: 04/25/251823 High Value Associate: Procedure Note Orion, Image - 04/25/2025 [place] [address] Ultrasound Report Signed Patient: Brenna Hope DMR# : [id number] : 1965Acct:[id number] Age/Sex: 59 / FADM Date: 04/24/25 Loc: .S3 375-[address]: Beth Alvarado MD Ordering Physician: Beth Alvarado MD Date of Service: 04/24/25 Procedure(s): US abdomen limited Accession Number(s): [id number] cc: Beth Alvarado MD; Name,Donny OLIVEIRA Reason for Exam: Ascitis - abd distension CLINICAL HISTORY: Ascitis - abd distension US abdomen limited Comparison: CT/REG/SR - CT ABDOMEN PELVIS W IV CON - 04/23/25 23:17 EDT US/ME/SR - US ABDOMEN LIMITED - 03/28/24 14:21 [...] in OV> 04/25/251824 DD/ 23 TD/TT: 04/25/251823 High Value Associate: [facility] External Provider IMG US PROCEDURES Edited Result - Final * CT Soft Tissue Neck w/ Contrast (04/25/2025 4:44 PM EDT) Anatomical Region Laterality Modality Head, Neck Computed Tomogra phy 04/25/2025 4:44 PM EDT Narrative 04/27/2025 11:02 AM EDT [place] [address] CT Scan Report Signed Patient: Brenna Hope MR# : [id number] : 1965 Acct:[id number] Age/Sex: 59 / F ADM Date: 04/24/25 [facility]: Olya Beckwith NP Ordering Physician: Beth Alvarado MD Date of Service: 04/25/25 Procedure(s): CT soft tissue neck w IV con Accession Number(s): [id number] cc: Beth Alvarado MD; Name,Donny OLIVEIRA Report Number: [id number]: Total DLP = 600.00 mGy-cm Reason for [...] larynx demonstrated no masses or fluid collections. 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, carotid spaces demonstrated no [...] 04/27/25 1059 DD/ 1644 TD/TT: 04/25/25 1705 High Value Associate: Procedure Note Donotuseinterpreter, Image - 04/27/[address] [place] [address] [address] Scan Report Signed Patient: Brenna Hope [facility]# : [id number] : 1965Acct:[id number] Age/Sex: 59 / FADM Date: 04/24/25 Loc: .S3 375-[address]: Olya Beckwith NP Ordering Physician: Beth Alvarado MD Date of Service: 04/25/25 Procedure(s): CT soft tissue neck w IV con Accession Number(s): [id number] cc: Beth Alvarado MD; Name,Donny OLIVEIRA Report Number: [id number]: Total DLP = 600.00 mGy-cm Reason for [...] larynx demonstrated no masses or fluid collections. 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, carotid spaces demonstrated no [...] 04/27/25 1059 DD/ 1644 TD/TT: 04/25/25 1705 High Value Associate: [facility] External Provider IMG CT PROCEDURES Edited Result - Final * XR Chest 1 View (04/24/2025 5:23 AM EDT) Anatomical Region Laterality Modality Chest Radiographic My ging 04/24/2025 5:23 AM EDT Narrative 04/24/2025 5:25 AM EDT [address] [address] XRay Report Signed Patient: Brenna Hope MR# : [id number] : 1965 Acct:[id number] Age/Sex: 59 / F ADM Date: 04/24/25 [facility]: Srinivasa Leiva MD Ordering Physician: Srinivasa Mccarty MD Date of Service: 04/24/25 Procedure(s): XR chest 1V Accession Number(s): [id number] cc: Srinivasa Mccraty MD; [facility] Reason for Exam: tube placement CLINICAL [...] in OV> 04/24/25524 DD/ 2 TD/TT: 04/24/25522 High Value Associate: Procedure Note Donotuseinterpreter, Image - 04/24/2025 [place] [address] XRay Report Signed Patient: Brenna Hope [facility]# : [id number] : 1965Acct:[id number] Age/Sex: 59 / FADM Date: 04/24/25 [facility] Dr: Srinivasa Leiva MD Ordering Physician: Srinivasa Mccarty MD Date of Service: 04/24/25 Procedure(s): XR chest 1V Accession Number(s): [id number] cc: Srinivasa Mccarty MD; [facility] Reason for Exam: tube placement CLINICAL [...] in OV> 04/24/25524 DD/ 2 TD/TT: 04/24/25522 High Value Associate: [facility] External Provider IMG XR PROCEDURES Edited Result - Final * (ABNORMAL) CBC auto differential (04/23/2025 8:25 PM EDT) White Blood Count 9.8 4.8 - 10.8 X10*3/uL [facility] Red Blood Count 3.87(L) 4.20 - 5.50 X10*6/uL [facility] Hemoglobin 8.2(L) 12.0 - 16.0 g/dl [facility] Hematocrit 28.1(L) 37.0 - 47.0 % [facility] Mean Corpuscular Volume 72.6(L) 80.0 - 98.0 fL [facility] Mean Corpuscular Hemoglobin 21.2(L) 27.0 - 33.0 pg [facility] Mean Corpuscular HGB Conc 29.2(L) 31.0 - 35.0 g/dl [facility] Red Cell Distribution Width 21.3(H) 11.0 - 16.0 % [facility] Platelet Count 403(H) 160 - 400 X10*3/uL [facility] Mean Platelet Volume 11.1 9.4 - 12.3 fL [facility] Neutrophils Percent Auto 62.2 45 - 73 % [facility] Imm Gran Pct Auto 0.4 0.0 - 0.4 % [facility] Lymphocytes Percent Auto 26.5 20 - 40 % [facility] Monocytes Percent Auto 9.7 2 - 11 % [facility] Eosinophils Percent Auto 1.0 0 - 4 % [facility] Basophils Percent Auto 0.2 0 - 2 % [facility] NRBC Pct Auto 0.3(H) 0.0 - 0.2 /100WBC [facility] Neutrophils Absolute Auto 6.1 2.0 - 8.3 x10*3/uL [facility] Imm Gran Abs Auto 0.04(H) 0.00 - 0.03 X10*3/uL [facility] Lymphocytes Absolute Auto 2.6 1.2 - 4.9 X10*3/uL [facility] Monocytes Absolute Auto 1.0 0.1 - 1.2 X10*3/uL [facility] Eosinophils Absolute Auto 0.1 0.0 - 0.4 X10*3/uL [facility] Basophils Absolute Auto 0.0 0.0 - 0.2 X10*3/uL [facility] NRBC Abs Auto 0.030(H) 0.0 - 0.012 X10*3/uL [facility] 04/23/2025 8:25 PM EDT 04/23/2025 8:28 PM EDT us Generic External Data Provider LAB BLOOD ORDERAB LES Final Result [facility] [address] [place] [address] [phone] * Lipid Panel, Standard (11/04/2024 8:58 AM EDT) Triglycerides 57 <150 mg/dL [facility] Comment:Desirable Triglyceri de: less than 150 mg/dLBorderline High Triglyceride 150-199 mg/dLHigh Triglyceride: 200-499 mg/dLVery High Triglyceride: greater than or equal to 5OO mg/dL Cholesterol 115 <200 mg/dL [facility] Comment:Desirable Cholestero l: less than 200 mg/dLBorderline High Cholesterol: 200-239 mg/dLHigh Cholesterol: greater than 239 mg/dL LDL Cholesterol Calculated 63 <100 mg/dL [facility] Comment:Desirable LDL: less than 100 mg/dLNear Optimal/Above Optimal LDL: 110- 129 mg/dLBorderline High LDL: 130-159 mg/dLHigh LDL: 160-189 mg/dLVery High LDL: greater than or equal to 190 mg/dL HDL Cholesterol 41 >40 mg/dL [facility] Comment:Desirable HDL: great er than 40 mg/dL Note: This HDL assay may give artificially low results in patients with liver disease. 11/04/2024 8:58 AM EDT 11/04/2024 9:06 AM EDT Brenna Brower MD LAB BLOOD ORDERABLES Final Result [facility] [address] [place] [phone] * (ABNORMAL) POCT HGB A1C (07/15/2024 1:36 PM EST) Hemoglobin A1C 6.0 4.0 - 6.0 % QC Media Lot # [id number] Lot# Expiration Date [id number] Blood 07/15/2024 1:36 PM EST us Brenna Brower MD POINT OF CARE TEST EN TER/EDIT ORDERABLES Final Result * BI Mammogram Screening Tomosynthesis Bilateral (05/01/2024 3:00 PM EDT) Anatomical Region Laterality Modality Breast Bilateral Mammography 05/01/2024 3:00 PM EDT Narrative 05/15/2024 8:10 PM EDT [address] [place] [address] Mammography Report Signed Patient: Tang HusseinasiBrenna abarca MR# : [id number] : 1965 Acct:[id number] Age/Sex: 58 / F ADM Date: 05/01/24 Loc: [facility] Attending Dr: Brenna Brower MD Ordering Physician: Brenna Liriano MD Results: 2Benign Findings Date of Service: 05/01/24 Follow Up: 1 Year From Orig inal Mammogram Procedure(s): MM tomosynthesis screening BI Accession Number(s): [id number] cc: Brenna Liriano MD EXAMINATION: MM SCREENING [...] OV> 05/15/242006 DD/ 1500 TD/TT: 05/01/24 1521 High Value Associate: Procedure Note Donotuseinterpreter, Image - 05/15/2024 [facility] [address] [place] [address] Mammography Report Signed Patient: Tang BourneBrenna DMR# : [id number] : 1965Acct:[id number] Age/Sex: 58 / FADM Date: 05/01/24 Loc: MAMMO Attending Dr: Brenna Brower MD Ordering Physician: Brenna Liriano MDResults: 2Benign Findings Date of Service: 05/01/24Follow Up: 1 Year From Orig inal Mammogram Procedure(s): MM tomosynthesis screening BI Accession Number(s): [id number] cc: Brenna Liriano MD EXAMINATION: MM SCREENING [...] OV> 05/15/242006 DD/ 1500 TD/TT: 05/01/24 1521 High Value Associate: Brenna Brower MD IMG BI PROCEDURES Joe abdullahi Result - Final * Hm Colonoscopy (04/02/2024 9:55 AM EDT) Pathologist [facility] Colonoscopy Normal Normal Narrative Jacqueline Valiente - 04/02/2024 9:55 AM EDT Repeat Colonoscopy in 5 years or earlier if clinically indicated see the external hospital admission note on 04/02/2024 Historical Provider [facility] Edited Result - Final * HPV mRNA E6/E7 (03/21/2017 12:00 AM EDT) HPV mRNA E6/E7 Not Detected NOT DETECTED [facility] Comment: This test was performed using the APTIMA(R) HPV Assay ([employer] This assay detects E6/E7 viral messenger RNA (mRNA) from 14 high-risk HPV types (16,18,31,33,35,39,45,51, 52,56,58,59,66,68). For additional information please refer to: http://education.OKpanda.OptionEase/faq/SQN642v4 (This link is being provided for informational/ educational purposes only.) Test Performed by [employer], [facility], [address] [place] [id number] Eliseo Sierra M.D., Ph.D., Director of Laboratories , [facility] [id number] Please note: Effective 05/01/2016, HPV testing will be performed using [employer]'s APTIMA test which targets mRNA. Detecting mRNA instead of DNA, as in older methods, offers significant improvements in specificity. 03/21/2017 us Indira Estrada CNM HISTORICAL/NON ORDERABLE LABS Final Result [facility] Anywhere [address] from Last 3 Months or Most Recently Relevant to Health Maintenance Insurance Care Teams Parcel Carrier Relationship Specialty Start Date End Date Brenna Liriano MD [address] [place] [phone] PCP - General Family Medicine 07/01/19 [facility] 06/26/24
--- OUTSIDE RECORDS SUMMARY | 2025-07-08 02:16 | XMS_ITS | Encounter Summary ---
Author Organization [employer] [facility] Address [address] [place] [phone] Care Team Providers Care Aviation Electrical Technician Name Role Phone Brenna Liriano MD Primary Care Provide r Encounter Details Date Type Department Care Team (Late Contact Info) Description 08/10/2022 [facility] Health Information Management [address] [place] [address] Brenna Liriano MD [address] [place] [address] Social History Tobacco Use Types Packs/Day Years [...] Description 07/22/2025 2:00 PM EST Office Visit [facility] MEDICINE [address] [place] [phone] Brenna Liriano MD [address] [place] [address] [phone] documented as of this encounter Visit Diagnoses Not on filedocumented in this encounter Care Teams Aviation Electrical Technician Relationship Specialty Start Date End Date Brenna Liriano MD [address] [place] [phone] PCP - General Family Medicine 07/01/19 [facility] 06/26/24 documented as of this encounter
--- OUTSIDE RECORDS SUMMARY | 2025-07-08 02:16 | XMS_ITS | Encounter Summary ---
Author Organization [employer] Address [address] [place] [address] 7 [place] [address] Care Team Providers Care Sales Officer Name Role Phone Brenna Liriano MD Primary Care Provide r Reason for Visit * Reason Onset Date Comments Hospital Follow-up 06/25/2024 Encounter Details Date Type Department Care Team ([facility] st Contact Info) Description 06/25/2024 Telephone [facility] MEDICINE [address] [place], [place] [phone] Brenna Liriano MD [address] [place], [place] [phone] Hospital Follow-up Social History Tobacco Use Types [...] from pt requesting a HDF appt. [facility] Date of admission: Asthma Discharge date: 06/18/24 Diagnosed: 06/24/24 *Send message to [facility] Clinical Care Coordinators documented in this encounter Plan of Treatment Upcoming Encounters Date Type Department Care Team (Late st Contact Info) Description 07/22/2025 2:00 PM EST Office Visit [facility] MEDICINE [address] [place], [place] [phone] Brenna Liriano MD [address] [place] [address] documented as of this encounter Visit Diagnoses Not on filedocumented in this encounter Care Teams Sales Officer Relationship Specialty Start Date End Date Brenna Liriano MD [address] [place] [address] [phone] PCP - General Family Medicine 07/01/19 [facility] 06/26/24 documented as of this encounter
== END 2025-07-07 11:26 | disposition home or self-care (01) ==
LOC: HO.MAMMO 11:25
PROVIDERS: Visit Provider Internal Medicine
DX: Z12.31 Encounter for screening mammogram for malignant neoplasm of breast (principal)
CPT/HCPCS: 77063; 77067

== ENCOUNTER → 2025-07-07 11:30 | Outpatient (BNV) | payer MEDICAID, SELFPAY | PROVIDERS: Visit Provider Internal Medicine | DX: Z12.31 Encounter for screening mammogram for malignant neoplasm of breast (principal) | CPT/HCPCS: 77063; 77067 ==

== ENCOUNTER 2025-07-28 10:20 | Outpatient (REF) | payer MEDICAID, SELFPAY ==
[2025-07-28 10:34] LABS: MANUAL DIFF FLAG NO
[2025-07-28 10:59] LABS: Hematocrit 33.3 % (37.0-47.0); Hemoglobin 10.0 g/dl (12.0-16.0); Imm Gran Abs Auto 0.07 X10*3/uL (0.00-0.03); Imm Gran Pct Auto 0.7 % (0.0-0.4); Lymphocytes Absolute Auto 2.2 X10*3/uL (1.2-4.9); Mean Corpuscular HGB Conc 30.0 g/dl (31.0-35.0); Mean Corpuscular Hemoglobin 26.2 pg (27.0-33.0); Mean Corpuscular Volume 87.4 fL (80.0-98.0); NRBC Abs Auto 0.000 X10*3/uL (0.0-0.012); NRBC Pct Auto 0.0 /100WBC (0.0-0.2); Platelet Count 360 X10*3/uL (160-400); Red Blood Count 3.81 X10*6/uL (4.20-5.50); White Blood Count 10.8 X10*3/uL (4.8-10.8)
== END 2025-07-28 10:21 ==
LOC: HO.LABR 10:20
PROVIDERS: PCP Internal Medicine
DX: Z79.899 Other long term (current) drug therapy (principal)
CPT/HCPCS: 36415; 85025